=== PATIENT | male | born 1950 | race Caucasian/White ===

== ENCOUNTER 2018-05-01 13:23 | Inpatient (IN) | payer MEDICARE ==
[2018-05-01 14:09] LABS: Anisocytosis Slight; Basophils % (A) 0 %; Eosinophils # (A) 0.1 k/uL (0-0.7); Eosinophils % (A) 1 %; HCT 38.3 % (39.0-53.0); HGB 12.2 gm/dL (13.0-17.5); Hypochromasia Slight; Lymphocytes # (A) 1.6 k/uL (1.0-4.8); Lymphocytes % (A) 32 %; MCH 28.5 pg (25.0-35.0); MCHC 31.8 g/dL (31.0-37.0); MCV 89.6 fL (80.0-100.0); Mean Platelet Volume 8.6; Monocytes # (A) 0.2 k/uL (0-1.0); Monocytes % (A) 4 %; Neutrophils % (A) 61 %; Platelet Count 140 k/uL (150-450); RBC 4.28 m/uL (4.30-5.90); RDW 16.6 % (11.5-15.5)
[2018-05-01 14:17] LABS: Albumin 3.6 g/dL (3.5-5.0); Calcium 8.8 mg/dL (8.4-10.2); INR 1.1 (<1.2); Partial Thromboplastin Time 24.5 sec (22.0-30.0); Potassium 3.9 mmol/L (3.5-5.1); Prothrombin Time 10.6 sec (9.0-12.0); Total Bilirubin 0.4 mg/dL (0.2-1.3); Total Protein 6.3 g/dL (6.3-8.2)
--- NOTE | 2018-05-01 14:23 | ED ---
General Adult HPI <Pepe Ba - Last Filed: 05/01/18 16:47> - General Source: patient, EMS, RN notes reviewed Mode of arrival: EMS Limitations: no limitations <Ramiro Garcia - Last Filed: 05/01/18 18:56> - General Chief complaint: Syncope Stated complaint: near syncope Time Seen by Provider: 05/01/18 13:57 - History of Present Illness Initial comments: Patient 67-year-old male presented to the emergency room today by EMS, the chief complaint of syncopal episode that occurred just prior to arrival. He does admit that he was trying to walk to a homeless halfway when he had this episode. He states he does not remember being dizzy or lightheaded. He states he remembers waking up on the ground was already standing over top of him. He does admit that he's had recent "blackout" episodes recently. He does admit that recently he was in [place] just one week ago when he was hospitalized. He states he does have a stent placed both in his heart and also on the left leg. He states that they were telling him that they thought that there could be a blockage of the stent in the leg that could be causing these blackout episodes. Patient states he came to [facility] history has a sister that lives locally. He states he just arrived 4 days ago. Patient admits to headache here in the emergency room. He denies any complaints or symptoms. Patient denies any recent fever, chills, shortness of breath, chest pain, back pain, abdominal pain, nausea or vomiting, visual changes, or any other complaints. (Ramiro Garcia) - Related Data Home Medications Medication Instructions Recorded Confirmed Aspirin 81 mg PO DAILY 05/01/18 05/01/18 Clopidogrel Bisulfate [Plavix] 75 mg PO DAILY 05/01/18 05/01/18 Dexlansoprazole [Dexilant] 60 mg PO DAILY 05/01/18 05/01/18 Diazepam 2 mg PO BID 05/01/18 05/01/18 Divalproex [Depakote] 500 mg PO BID 05/01/18 05/01/18 Donepezil [Aricept] 10 mg PO HS 05/01/18 05/01/18 Escitalopram [Lexapro] 20 mg PO DAILY 05/01/18 05/01/18 Levothyroxine Sodium [Synthroid] 75 mcg PO DAILY 05/01/18 05/01/18 Metoprolol Tartrate [Lopressor] 12.5 mg PO BID 05/01/18 05/01/18 Ramipril [Altace] 1.25 mg PO DAILY 05/01/18 05/01/18 Simvastatin [Zocor] 20 mg PO HS 05/01/18 05/01/18 Torsemide [Demadex] 5 mg PO DAILY 05/01/18 05/01/18 Allergies Allergy/AdvReac Type Severity Reaction Status Date / Time morphine Allergy Anaphylaxis Verified 05/01/18 14:06 Penicillins Allergy Unknown Verified 05/01/18 14:06 Review of Systems ROS Other: All systems not noted in ROS Statement are negative. <Pepe Ba - Last Filed: 05/01/18 16:47> ROS Other: All systems not noted in ROS Statement are negative. <Ramiro Garcia - Last Filed: 05/01/18 18:56> ROS Statement: Those systems with pertinent positive or pertinent negative responses have been documented in the HPI. Past Medical History Past Medical History: Dementia Past Surgical History: Coronary Bypass/CABG Smoking Status: Current every day smoker Past Alcohol Use History: None Reported Past Drug Use History: None Reported <Ramiro Garcia - Last Filed: 05/01/18 18:56> General Exam <Pepe Ba - Last Filed: 05/01/18 16:47> Limitations: no limitations <Ramiro Garcia - Last Filed: 05/01/18 18:56> - General Exam Comments Initial Comments: General: The patient is awake and alert, in no distress, and does not appear acutely ill. Eye: Pupils are equal, round and reactive to light. Extra-ocular movements are intact. No nystagmus. There is normal conjunctiva bilaterally. No signs of icterus. Ears, nose, mouth and throat: There are moist mucous membranes and no oral lesions. Neck: The neck is supple, there is no tenderness or JVD. Cardiovascular: There is a regular rate and rhythm. No murmur, rub or gallop is appreciated. Respiratory: Lungs are clear to auscultation, respirations are non-labored, breath sounds are equal. No wheezes, stridor, rales, or rhonchi. Gastrointestinal: Soft, non-distended, non-tender abdomen without masses or organomegaly noted. There is no rebound or guarding present. No CVA tenderness. Musculoskeletal: Normal ROM, no tenderness. Sensation intact. Strength 5/5. Pulses equal bilaterally 2+. Neurological: A&O x 3. CN II-XII intact, There are no obvious motor or sensory deficits. Coordination appears grossly intact. Speech is normal. Skin: Skin is warm and dry and no rashes or lesions are noted. Psychiatric: Cooperative, appropriate mood & affect, normal judgment. (Ramiro Garcia) Course <Pepe Ba - Last Filed: 05/01/18 16:47> <Ramiro Garcia - Last Filed: 05/01/18 18:56> Vital Signs 05/01/18 05/01/18 05/01/18 13:26 14:46 16:00 Temperature 97.6 F Pulse Rate 80 64 72 Respiratory 16 18 Rate Blood Pressure 135/70 124/60 133/89 O2 Sat by Pulse 98 98 98 Oximetry 05/01/18 05/01/18 16:26 17:30 Temperature Pulse Rate 84 60 Respiratory Rate Blood Pressure 117/65 139/66 O2 Sat by Pulse 99 97 Oximetry - Reevaluation(s) Reevaluation #1: 05/01/18 16:46 Patient reevaluated by myself, Dr. Ba. Patient is a poor historian. Patient states he has had a couple syncopal episodes over the past month and was at a hospital in [place] not long ago for this. Patient states he was walking today and just passed out. Patient states he does have a distant history of seizures however has not had one in a long time. Patient denies being on any medication for seizures. Medication list does include Depakote and the level will be checked. D-dimer has been added. Case was discussed with Dr. Mac, who will admit for hospital call. Radial and pedal pulses 2/4 bilateral. (Pepe Ba) EKG Findings - EKG Comments: EKG Findings:: EKG performed at 1346: Shows normal sinus rhythm at 72 bpm [place] interval 124. QRS 104. QT/QTc is 426/466. No acute ST changes. <Ramiro Garcia - Last Filed: 05/01/18 18:56> Medical Decision Making - Lab Data Result diagrams: 05/01/18 13:30 05/01/18 13:30 <Pepe Ba - Last Filed: 05/01/18 16:47> - Lab Data Result diagrams: 05/01/18 13:30 05/01/18 13:30 <Ramiro Garcia - Last Filed: 05/01/18 18:56> - Medical Decision Making Patient resting comfortable at this time. Patient's labs reviewed did show an elevated d-dimer. Did have a CT of the chest which was negative for any evidence of PE. Case discussed with attending physician Dr. Ba who did discuss case with physician Dr. Mac. The patient for syncopal episode. (Ramiro Garcia) - Lab Data Lab Results 05/01/18 05/01/18 05/01/18 Range/Units 13:30 13:30 13:30 WBC 5.0 (3.8-10.6) k/uL RBC 4.28 L (4.30-5.90) m/uL Hgb 12.2 L (13.0-17.5) gm/dL Hct 38.3 L (39.0-53.0) % MCV 89.6 (80.0-100.0) fL MCH 28.5 (25.0-35.0) pg MCHC 31.8 (31.0-37.0) g/dL RDW 16.6 H (11.5-15.5) % Plt Count 140 L (150-450) k/uL Neutrophils % 61 % Lymphocytes % 32 % Monocytes % 4 % Eosinophils % 1 % Basophils % 0 % Neutrophils # 3.0 (1.3-7.7) k/uL Lymphocytes # 1.6 (1.0-4.8) k/uL Monocytes # 0.2 (0-1.0) k/uL Eosinophils # 0.1 (0-0.7) k/uL Basophils # 0.0 (0-0.2) k/uL Hypochromasia Slight Anisocytosis Slight PT (9.0-12.0) sec INR (<1.2) APTT (22.0-30.0) sec D-Dimer (<0.60) mg/L FEU Sodium 143 (137-145) mmol/L Potassium 3.9 (3.5-5.1) mmol/L Chloride 112 H (98-107) mmol/L Carbon Dioxide 22 (22-30) mmol/L Anion Gap 9 mmol/L BUN 17 (9-20) mg/dL Creatinine 1.16 (0.66-1.25) mg/dL Est GFR (CKD-EPI)AfAm 76 (>60 ml/min/1.73 sqM) Est GFR (CKD-EPI)NonAf 66 (>60 ml/min/1.73 sqM) Glucose 144 H (74-99) mg/dL Calcium 8.8 (8.4-10.2) mg/dL Total Bilirubin 0.4 (0.2-1.3) mg/dL AST 30 (17-59) U/L ALT 25 (21-72) U/L Alkaline Phosphatase 72 (38-126) U/L Total Creatine Kinase 101 (55-170) U/L CK-MB (CK-2) 1.2 (0.0-2.4) ng/mL CK-MB (CK-2) Rel Index 1.2 Troponin I <0.012 (0.000-0.034) ng/mL Total Protein 6.3 (6.3-8.2) g/dL Albumin 3.6 (3.5-5.0) g/dL Valproic Acid ug/mL 05/01/18 05/01/18 05/01/18 Range/Units 13:30 13:30 13:30 WBC (3.8-10.6) k/uL RBC (4.30-5.90) m/uL Hgb (13.0-17.5) gm/dL Hct (39.0-53.0) % MCV (80.0-100.0) fL MCH (25.0-35.0) pg MCHC (31.0-37.0) g/dL RDW (11.5-15.5) % Plt Count (150-450) k/uL Neutrophils % % Lymphocytes % % Monocytes % % Eosinophils % % Basophils % % Neutrophils # (1.3-7.7) k/uL Lymphocytes # (1.0-4.8) k/uL Monocytes # (0-1.0) k/uL Eosinophils # (0-0.7) k/uL Basophils # (0-0.2) k/uL Hypochromasia Anisocytosis PT 10.6 (9.0-12.0) sec INR 1.1 (<1.2) APTT 24.5 (22.0-30.0) sec D-Dimer 5.91 H (<0.60) mg/L FEU Sodium (137-145) mmol/L Potassium (3.5-5.1) mmol/L Chloride (98-107) mmol/L Carbon Dioxide (22-30) mmol/L Anion Gap mmol/L BUN (9-20) mg/dL Creatinine (0.66-1.25) mg/dL Est GFR (CKD-EPI)AfAm (>60 ml/min/1.73 sqM) Est GFR (CKD-EPI)NonAf (>60 ml/min/1.73 sqM) Glucose (74-99) mg/dL Calcium (8.4-10.2) mg/dL Total Bilirubin (0.2-1.3) mg/dL AST (17-59) U/L ALT (21-72) U/L Alkaline Phosphatase (38-126) U/L Total Creatine Kinase (55-170) U/L CK-MB (CK-2) (0.0-2.4) ng/mL CK-MB (CK-2) Rel Index Troponin I (0.000-0.034) ng/mL Total Protein (6.3-8.2) g/dL Albumin (3.5-5.0) g/dL Valproic Acid <10.0 ug/mL Disposition <Pepe Ba - Last Filed: 05/01/18 16:47> Is patient prescribed a controlled substance at d/c from ED?: No Time of Disposition: 18:56 <Ramiro Garcia - Last Filed: 05/01/18 18:56> Clinical Impression: Syncope Disposition: ADMITTED IP TO THIS HOSP Condition: Stable Referrals: None,Stated [Primary Care Provider] - 1-2 days
[2018-05-01 14:29] LABS: Creatine Kinase 101 U/L (55-170)
[2018-05-01 14:42] LABS: Creatine Kinase MB 1.2 ng/mL (0.0-2.4); Troponin I <0.012 ng/mL (0.000-0.034)
--- NOTE | 2018-05-01 15:00 | CT ---
EXAMINATION TYPE: CT brain wo con DATE OF EXAM: 05/01/2018 COMPARISON: None HISTORY: Near syncope. CT DLP: [address] of the brain was performed. The ventricles, basal cisterns and sulci overlying the cerebral convexities demonstrate mild enlargem ent. There is no evidence for intracranial hemorrhage or sulcal effacement. There is decreased attenuation about the periventricular white matter and deep white matter of both c erebral hemispheres, compatible with chronic small vessel ischemia. Differential diagnosis does inclu de demyelination. No mass effects are seen.No midline shift. Osseous calvarium is intact. If symptoms persist consider MRI. IMPRESSION: 1. Age related atrophic and chronic small vessel ischemic change without acute intracranial process s een at this time.
--- NOTE | 2018-05-01 17:55 | XR ---
EXAMINATION: XR chest 2V DATE AND TIME: 05/01/2018 5:00 PM CLINICAL INDICATION: cough TECHNIQUE: PA and lateral COMPARISON: None. FINDINGS: The lungs are clear. The pleural spaces are negative. The cardiac silhouette is mildly enlarged. Pacemaker, sternal sutures, and mediastinal clips are note d. The remainder of the mediastinal silhouette is unremarkable. The skeletal structures and soft tissues are negative for acute findings. IMPRESSION: NO ACUTE PROCESS.
[2018-05-01] MEDS ORDERED: NALOXONE 0.4 MG/ML 1 ML VIAL IV PRN (18:05)
[2018-05-01] MEDS ORDERED: ONDANSETRON 4 MG/2 ML VIAL IVP PRN (18:05)
[2018-05-01] MEDS ORDERED: ACETAMINOPHEN TAB 325 MG TAB PO PRN (18:05)
[2018-05-01] MEDS ORDERED: SODIUM CHLORIDE 0.9% 1,000 ML IV ONE (18:05)
--- NOTE | 2018-05-01 18:27 | P.HPIM ---
History of Present Illness H&P Date: 05/01/18 Chief Complaint: Lightheaded and dizziness and passing out The patient is a 67-year-old male the past with a history of coronary artery disease with four-vessel CABG, with AICD who presents to the ER via EMS, after having a syncopal episode and passing out just prior to arrival. The patient reports that this is his second spell of blacking out in the last 3 days , he reports a recent fall that he thinks dislodged his defibrillator. [place] Patient reports episodes of lightheadedness precipitated by movement, he denies any tinnitus or room spinning sensation. He reports a history of peripheral vascular disease and that he has a stent in his leg. He denies any chest pain, shortness of breath , cough, palpitations or lower extremity swelling. The patient reports having his CABG approximately 20 years ago in [facility]. He denies any fevers chills diarrhea or constipation. He otherwise has no other complaints, it appears the patient has a history of seizures and takes Depakote In the ER he had a CT of his head That showed age-related atrophy a and chronic small ischemic changes without any acute intracranial process, he was also sent for CTA of his chest after having a elevated d-dimer at 6, results pending. EKG performed shows sinus rhythm with no acute ST elevation or signs of acute ischemia, troponin was negative at less than 0.012. He was recommended for admission to workup for syncope Review of Systems Pertinent positives per HPI, all other review of systems are otherwise negative Past Medical History Past Medical History: Dementia Past Surgical History: Coronary Bypass/CABG Smoking Status: Current every day smoker Past Alcohol Use History: None Reported Past Drug Use History: None Reported Medications and Allergies Home Medications Medication Instructions Recorded Confirmed Type Aspirin 81 mg PO DAILY 05/01/18 05/01/18 History Clopidogrel Bisulfate [Plavix] 75 mg PO DAILY 05/01/18 05/01/18 History Dexlansoprazole [Dexilant] 60 mg PO DAILY 05/01/18 05/01/18 History Diazepam 2 mg PO BID 05/01/18 05/01/18 History Divalproex [Depakote] 500 mg PO BID 05/01/18 05/01/18 History Donepezil [Aricept] 10 mg PO HS 05/01/18 05/01/18 History Escitalopram [Lexapro] 20 mg PO DAILY 05/01/18 05/01/18 History Levothyroxine Sodium [Synthroid] 75 mcg PO DAILY 05/01/18 05/01/18 History Metoprolol Tartrate [Lopressor] 12.5 mg PO BID 05/01/18 05/01/18 History Ramipril [Altace] 1.25 mg PO DAILY 05/01/18 05/01/18 History Simvastatin [Zocor] 20 mg PO HS 05/01/18 05/01/18 History Torsemide [Demadex] 5 mg PO DAILY 05/01/18 05/01/18 History Allergies Allergy/AdvReac Type Severity Reaction Status Date / Time morphine Allergy Anaphylaxis Verified 05/01/18 14:06 Penicillins Allergy Unknown Verified 05/01/18 14:06 Physical Exam Vitals: Vital Signs Temp Pulse Resp BP Pulse Ox 05/01/18 17:30 60 139/66 97 05/01/18 16:26 84 117/65 99 05/01/18 16:00 72 133/89 98 05/01/18 14:46 64 18 124/60 98 05/01/18 13:26 97.6 F 80 16 135/70 98 Intake and Output 05/01/18 05/01/18 05/01/18 06:59 14:59 22:59 Other: Weight 61.235 kg Constitutional: No acute distress, conversant, pleasant Eyes: Anicteric sclerae, moist conjunctiva, no lid-lag, PERRLA ENMT: NC/AT,Oropharynx clear, no erythema, exudates Neck:Supple, FROM, no masses, or JVD, No carotid bruits; No thyromegaly Lungs: Clear to auscultation, Clear to percussion, Normal respiratory effort, no accessory muscle use Cardiovascular: Heart regular in rate and rhythm, No murmurs, gallops, or rubs no peripheral edema Abdominal: Soft Nontender, nom distended, no guarding, no rebound or rigidity, Normoactive bowel sounds No hepatomegaly, No splenomegaly, No palpable mass No abdominal wall hernia noted Skin: Normal temperature, tone, texture, turgor, No induration No subcutaneous nodules, No rash, lesions, No ulcers Extremities:No digital cyanosis No clubbing, Pedal pulses intact and symmetrical Radial pulses intact and symmetrical Normal gait and station, No calf tenderness Psychiatric: Alert and oriented to person, place and time, Appropriate affect Intact judgement Neuro: Muscles Strength 5/5 in all 4 extremities, Sensation to light touch grossly present throughout, Cranial nerves II-XII grossly intact. No focal sensory deficits Results CBC & Chem 7: 05/01/18 13:30 05/01/18 13:30 Labs: Abnormal Lab Results - Last 24 Hours (Table) 05/01/18 05/01/18 05/01/18 Range/Units 13:30 13:30 13:30 RBC 4.28 L (4.30-5.90) m/uL Hgb 12.2 L (13.0-17.5) gm/dL Hct 38.3 L (39.0-53.0) % RDW 16.6 H (11.5-15.5) % Plt Count 140 L (150-450) k/uL D-Dimer 5.91 H (<0.60) mg/L FEU Chloride 112 H (98-107) mmol/L Glucose 144 H (74-99) mg/dL Assessment and Plan Assessment: Chronic medical issues GERD Hypothyroidism Hyperlipidemia Dementia Depression (1) Syncope Current Visit: Yes Status: Acute Code(s): R55 - SYNCOPE AND COLLAPSE SNOMED Code(s): 590874985 (2) Coronary artery disease Current Visit: Yes Status: Acute Code(s): I25.10 - ATHSCL HEART DISEASE OF [place] CORONARY ARTERY W/O ANG PCTRS SNOMED Code(s): 71181595 (3) Essential hypertension Current Visit: Yes Status: Acute Code(s): I10 - ESSENTIAL (PRIMARY) HYPERTENSION SNOMED Code(s): 14545250 (4) Hyperlipidemia Current Visit: Yes Status: Acute Code(s): E78.5 - HYPERLIPIDEMIA, UNSPECIFIED SNOMED Code(s): 30399098 Plan: The patient is placed in observation anticipate a less than 2 midnight stay after presenting with syncopal episode with a pretty strong cardiac history of coronary disease with bypass, we'll check orthostatic vital signs, echocardiogram, TSH, carotid Dopplers and consult cardiology and neurology for further recommendations. We'll follow-up CTA of the chest. Resume all his home medications and continue to follow his clinical course.
--- NOTE | 2018-05-01 18:49 | CT ---
EXAMINATION TYPE: CT angio chest with contrast and with 3-D Reconstruction rendering DATE OF EXAM: 05/01/2018 6:12 PM COMPARISON: None HISTORY: Elevated d-dimer. CT DLP: 402 mGycm Automated exposure control for dose reduction was used. CONTRAST: CTA scan of the thorax is performed with IV Contrast, patient injected with 100 mL of Isovu e 370, pulmonary embolism protocol. 3-D reconstructions. FINDINGS: LUNGS: The lungs are grossly clear, there is no concerning parenchymal mass or nodule identified. T here is no pleural effusion or pneumothorax seen. The tracheobronchial tree is patent. MEDIASTINUM: There is satisfactory enhancement of the pulmonary artery and its branches, there is no CT evidence for pulmonary embolism. Aorta is unremarkable. Mild cardiomegaly with enlarged left heart chambers noted. Post-CABG changes. No pericardial effusion is seen. There are no greater than 1 cm h ilar or mediastinal lymph nodes. OTHER: No additional significant abnormality is seen. IMPRESSION: NEGATIVE FOR PULMONARY EMBOLISM OR OTHER ACUTE PROCESS.
[2018-05-01 20:14] VITALS: BMI 20.5
[2018-05-01] MEDS: DONEPEZIL 10 MG TAB PO SCH (21:13)
[2018-05-01] MEDS: DIVALPROEX 500 MG TABLET.DR PO SCH (21:13)
[2018-05-01] MEDS: ATORVASTATIN 10 MG TAB PO SCH (21:13)
[2018-05-01] MEDS: METOPROLOL TARTRATE 12.5 MG TAB PO SCH (21:13)
[2018-05-01] MEDS: DIAZEPAM 2 MG TAB PO SCH (21:20)
[2018-05-02] MEDS: LEVOTHYROXINE 75 MCG TAB PO SCH (05:56)
[2018-05-02 08:07] LABS: Anisocytosis Slight; Basophils % (A) 0 %; Eosinophils # (A) 0.1 k/uL (0-0.7); Eosinophils % (A) 3 %; HCT 38.9 % (39.0-53.0); HGB 12.3 gm/dL (13.0-17.5); Hypochromasia Slight; Lymphocytes # (A) 2.1 k/uL (1.0-4.8); Lymphocytes % (A) 45 %; MCH 28.5 pg (25.0-35.0); MCHC 31.8 g/dL (31.0-37.0); MCV 89.6 fL (80.0-100.0); Mean Platelet Volume 8.3; Monocytes # (A) 0.3 k/uL (0-1.0); Monocytes % (A) 5 %; Neutrophils # (A) 2.1 k/uL (1.3-7.7); Neutrophils % (A) 43 %; Platelet Count 130 k/uL (150-450); RBC 4.34 m/uL (4.30-5.90); RDW 16.7 % (11.5-15.5); WBC 4.8 k/uL (3.8-10.6)
[2018-05-02 08:34] LABS: Albumin 3.1 g/dL (3.5-5.0); Calcium 8.5 mg/dL (8.4-10.2); Potassium 4.2 mmol/L (3.5-5.1); Total Bilirubin 0.4 mg/dL (0.2-1.3); Total Protein 5.9 g/dL (6.3-8.2)
[2018-05-02] MEDS: ESCITALOPRAM 20 MG TAB PO SCH (09:31)
[2018-05-02] MEDS: CLOPIDOGREL 75 MG TAB PO SCH (09:31)
[2018-05-02] MEDS: TORSEMIDE 20 MG TAB PO SCH (09:31)
[2018-05-02] MEDS: METOPROLOL TARTRATE 12.5 MG TAB PO SCH ×2 (09:31→21:39)
[2018-05-02] MEDS: DIAZEPAM 2 MG TAB PO SCH ×2 (09:31→21:39)
[2018-05-02] MEDS: PANTOPRAZOLE 40 MG TABLET PO SCH (09:31)
[2018-05-02] MEDS: ASPIRIN 81 MG PO SCH (09:31)
[2018-05-02] MEDS: LISINOPRIL 5 MG TAB PO SCH (09:31)
[2018-05-02] MEDS: DIVALPROEX 500 MG TABLET.DR PO SCH ×2 (09:31→21:40)
--- NOTE | 2018-05-02 10:19 | ECHOF ---
Referral Reason:Syncopal episode, history of heart disease MEASUREMENTS -------- HEIGHT: 172.7 cm WEIGHT: 61.2 kg BP: 133/74 IVSd: 1.1 cm (0.6 - 1.1) LVIDd: 5.2 cm (3.9 - 5.3) LVPWd: 1.2 cm (0.6 - 1.1) IVSs: 1.3 cm LVIDs: 4.9 cm LVPWs: 1.3 cm LAESV Index (A-L): 47.16 ml/m Ao Diam: 2.8 cm (2.0 - 3.7) AV Cusp: 2.2 cm (1.5 - 2.6) LA Diam: 4.3 cm (2.7 - 3.8) MV EXCURSION: 20.824 mm (> 18.000) MV EF SLOPE: 109 mm/s (70 - 150) EPSS: 1.6 cm MV E Lorne: 0.64 m/s MV DecT: 198 ms MV A Lorne: 0.35 m/s MV E/A Ratio: 1.83 RAP: 5.00 mmHg RVSP: 21.06 mmHg FINDINGS -------- Sinus rhythm. AICD This was a technically good study. The left ventricular size is normal. There is borderline concentric left ventricular hypertrophy. There is severe global hypokinesis of LV . Overall left ventricular systolic function is severely impaired with, an EF between 20 - 25 %. The right ventricle is normal in size and function. LA is severely dilated >40 ml/m2 The right atrium is normal in size. Aortic valve is trileaflet and is mildly thickened. The mitral valve leaflets are mildly thickened. Wiyqvnzc-ry-klcqvy mitral regurgitation is present. Mild tricuspid regurgitation present. The right ventricular systolic pressure, as measured by Doppl er, is 21.06mmHg. Pulmonic valve appears structurally normal. The aortic root size is normal. Normal inferior vena cava with normal inspiratory collapse consistent with estimated right atrial pre ssure of 5 mmHg. The pericardium is normal. CONCLUSIONS -------- 1. Sinus rhythm. 2. AICD 3. This was a technically good study. 4. The left ventricular size is normal. 5. There is borderline concentric left ventricular hypertrophy. 6. There is severe global hypokinesis of LV . 7. Overall left ventricular systolic function is severely impaired with, an EF between 20 - 25 %. 8. The right ventricle is normal in size and function. 9. LA is severely dilated >40 ml/m2 10. The right atrium is normal in size. 11. Aortic valve is trileaflet and is mildly thickened. 12. The mitral valve leaflets are mildly thickened. 13. Ovjhmcjk-ni-jpmiiv mitral regurgitation is present. 14. Mild tricuspid regurgitation present. 15. The right ventricular systolic pressure, as measured by Doppler, is 21.06mmHg. 16. Pulmonic valve appears structurally normal. 17. The aortic root size is normal. 18. Normal inferior vena cava with normal inspiratory collapse consistent with estimated right atrial pressure of 5 mmHg. 19. The pericardium is normal. SPECIAL ED ASSISTANT: Terri Harkins RDCS
--- NOTE | 2018-05-02 10:45 | US ---
EXAMINATION TYPE: US carotid duplex BILAT DATE OF EXAM: 05/02/2018 COMPARISON: NONE CLINICAL HISTORY: Pain. EXAM MEASUREMENTS: RIGHT: Peak Systolic Velocity (PSV) cm/sec ----- Right CCA: 42.3 ----- Right ICA: 83.8 ----- Right ECA: 143.5 ICA/CCA ratio: 2.0 RIGHT: End Diastole cm/sec ----- Right CCA: 10.9 ----- Right ICA: 20.2 ----- Right ECA: 12.7 LEFT: Peak Systolic Velocity (PSV) cm/sec ----- Left CCA: 46.0 ----- Left ICA: 66.3 ----- Left ECA: 92.2 ICA/CCA ratio: 1.4 LEFT: End Diastole cm/sec ----- Left CCA: 12.2 ----- Left ICA: 20.6 ----- Left ECA: 9.0 VERTEBRALS (direction of flow): Right Vertebral: Antegrade Left Vertebral: Antegrade Rhythm: Arrhythmia Moderate plaque, no significant stenosis seen in bilateral ICA's. Grayscale, color Doppler, spectral Doppler imaging performed of the carotid arteries. Waveform analys is does not show significant stenosis of the proximal internal carotid arteries. IMPRESSION: No hemodynamic significant stenosis of the proximal internal carotid arteries bilaterall y by Doppler criteria, an indirect measurement of carotid stenosis
--- NOTE | 2018-05-02 13:29 | P.PN ---
Subjective Progress Note Date: 05/02/18 Patient complaining of lightheadedness still today, orthostatic vital signs are negative. Patient concerned for malfunction of his defibrillator. No acute events overnight Objective - Vital Signs Vital signs: Vital Signs Temp 97.7 F 05/02/18 11:40 Pulse 68 05/02/18 11:40 Resp 18 05/02/18 11:40 BP 125/72 05/02/18 11:40 Pulse Ox 97 05/02/18 11:40 Intake & Output 05/01/18 05/02/18 05/02/18 18:59 06:59 18:59 Weight 61.235 kg 61.235 kg Other: Voiding Method Toilet Toilet Urinal # Voids 1 - Exam Constitutional: No acute distress, conversant, pleasant Eyes: Anicteric sclerae, moist conjunctiva, no lid-lag, PERRLA ENMT: NC/AT,Oropharynx clear, no erythema, exudates Neck:Supple, FROM, no masses, or JVD, No carotid bruits; No thyromegaly Lungs: Clear to auscultation, Clear to percussion, Normal respiratory effort, no accessory muscle use Cardiovascular: Heart regular in rate and rhythm, No murmurs, gallops, or rubs no peripheral edema Abdominal: Soft Nontender, nom distended, no guarding, no rebound or rigidity, Normoactive bowel sounds No hepatomegaly, No splenomegaly, No palpable mass No abdominal wall hernia noted Skin: Normal temperature, tone, texture, turgor, No induration No subcutaneous nodules, No rash, lesions, No ulcers Extremities:No digital cyanosis No clubbing, Pedal pulses intact and symmetrical Radial pulses intact and symmetrical Normal gait and station, No calf tenderness Psychiatric: Alert and oriented to person, place and time, Appropriate affect Intact judgement Neuro: Muscles Strength 5/5 in all 4 extremities, Sensation to light touch grossly present throughout, Cranial nerves II-XII grossly intact. No focal sensory deficits - Labs CBC & Chem 7: 05/02/18 07:32 05/02/18 07:32 Labs: Abnormal Lab Results - Last 24 Hours (Table) 05/01/18 05/01/18 05/01/18 Range/Units 13:30 13:30 13:30 RBC 4.28 L (4.30-5.90) m/uL Hgb 12.2 L (13.0-17.5) gm/dL Hct 38.3 L (39.0-53.0) % RDW 16.6 H (11.5-15.5) % Plt Count 140 L (150-450) k/uL D-Dimer 5.91 H (<0.60) mg/L FEU Chloride 112 H (98-107) mmol/L Glucose 144 H (74-99) mg/dL Total Protein (6.3-8.2) g/dL Albumin (3.5-5.0) g/dL 05/02/18 05/02/18 Range/Units 07:32 07:32 RBC (4.30-5.90) m/uL Hgb 12.3 L (13.0-17.5) gm/dL Hct 38.9 L (39.0-53.0) % RDW 16.7 H (11.5-15.5) % Plt Count 130 L (150-450) k/uL D-Dimer (<0.60) mg/L FEU Chloride 112 H (98-107) mmol/L Glucose (74-99) mg/dL Total Protein 5.9 L (6.3-8.2) g/dL Albumin 3.1 L (3.5-5.0) g/dL Assessment and Plan (1) Syncope Narrative/Plan: * Negative orthostatics vital signs * Echocardiogram showing severe cardiomyopathy with ejection fraction of 20-25% * neurology and Cardiology consulted, awaiting recommendations * Possibly cardiogenic, patient concern for AICD malfunction * Carotid Dopplers negative for any clinically significant carotid artery disease Current Visit: Yes Status: Acute Code(s): R55 - SYNCOPE AND COLLAPSE SNOMED Code(s): 986696433 (2) Systolic CHF, chronic Narrative/Plan: * Clinically stable, euvolemic exam no acute exacerbation of his chronic systolic CHF EF 20-25% * Continue daily torsemide, metoprolol and lisinopril Current Visit: Yes Status: Acute Code(s): I50.22 - CHRONIC SYSTOLIC ( CONGESTIVE) HEART FAILURE SNOMED Code(s): 333503366 (3) Cardiomyopathy Narrative/Plan: * Treatment as above Current Visit: Yes Status: Acute Code(s): I42.9 - CARDIOMYOPATHY, UNSPECIFIED SNOMED Code(s): 70730758 (4) Essential hypertension Current Visit: Yes Status: Acute Code(s): I10 - ESSENTIAL (PRIMARY) HYPERTENSION SNOMED Code(s): 22528930 (5) Coronary artery disease Narrative/Plan: * Denies any chest pain EKG and troponins are negative for any acute ischemia * Continue dual antiplatelet therapy Current Visit: Yes Status: Acute Code(s): I25.10 - ATHSCL HEART DISEASE OF [place] CORONARY ARTERY W/O ANG PCTRS SNOMED Code(s): 41744399 (6) Hyperlipidemia Narrative/Plan: * Continue routine statin therapy Current Visit: Yes Status: Acute Code(s): E78.5 - HYPERLIPIDEMIA, UNSPECIFIED SNOMED Code(s): 01715355 Plan: Disposition * We'll follow cardiology r and neurology ecommendations * Anticipated discharge 1-2 days
--- NOTE | 2018-05-02 14:47 | P.CRDCN ---
History of Present Illness History of present illness: Mr. Morales is seen and examined resting comfortably in bed in no acute distress. Past medical history significant for coronary artery disease s/p bypass grafting 4-vessel per the patient. Exact details are unavailable to me. He also has a [employer] AICD in place secondary to arrhythmia per the patient, hypertension, dyslipidemia, hypothyroidism, depression, dementia and chronic nicotine dependence. He recently moved here from [place] on Tuesday. We have asked to see him in consultation for a syncopal episode. He states he is fairly active and walks regularly. He states yesterday he walked over 2 miles. He sat down on a bench to drink some water. He was standing up to walk home and he felt light headed upon standing. Next thing he can recall there was a women standing over him trying to wake him up. He states he frequently feels light headed upon standing but doesn't usually pass out. He denies chest pain, shortness of breath, nausea, vomiting or diaphoresis prior to or thereafter losing consciousness. Sinus mechanism with inferior Q waves, nonspecific T-wave abnormalities in the lateral leads. No old for comparison. Chest x-ray is negative for acute cardiopulmonary process. CT of the brain reveals age-related atrophic and chronic small vessel ischemic change without any acute intracranial process seen. CTA chest negative for pulmonary embolism, aorta unremarkable. Echocardiogram obtained revealed severely impaired left ventricular systolic function with ejection fraction 20-25%, severely dilated left atrium, moderate to severe MR and mild TR. Bilateral carotid duplex reveals no significant stenosis bilaterally. Current cardiac medications include torsemide 5 mg daily, simvastatin 20 mg daily, ramipril 1.25 mg daily, lopressor 12.5 mg BID, plavix 75 mg daily and aspirin 81 mg daily. Review of Systems At the time of my exam: CONSTITUTIONAL: Denies fever. Denies chills. EYES: Denies blurred vision. Denies vision changes. Denies eye pain. EARS, NOSE, MOUTH & THROAT: Denies headache. Denies sore throat. Denies ear pain. CARDIOVASCULAR: Denies chest pain. Denies shortness of breath. Denies orthopnea. Denies PND. Denies palpitations. RESPIRATORY: Denies cough. GASTROINTESTINAL: Denies abdominal pain. Denies diarrhea. Denies constipation. Denies nausea. Denies vomiting. MUSCULOSKELETAL: Denies myalgias. INTEGUMENTARY: Denies pruitis. Denies rash. NEUROLOGIC: Denies numbness. Denies tingling. Denies weakness. PSYCHIATRIC: Denies anxiety. Denies depression. ENDOCRINE: Denies fatigue. Denies weight change. Denies polydipsia. Denies polyurina. GENITOURINARY: Denies burning, hematuria or urgency with micturation. HEMATOLOGIC: Denies history of anemia. Denies bleeding. Past Medical History Past Medical History: Dementia History of Any Multi-Drug Resistant Organisms: None Reported Past Surgical History: Coronary Bypass/CABG Past Anesthesia/Blood Transfusion Reactions: No Reported Reaction Smoking Status: Current every day smoker Past Alcohol Use History: None Reported Past Drug Use History: None Reported Medications and Allergies Home Medications Medication Instructions Recorded Confirmed Type Aspirin 81 mg PO DAILY 05/01/18 05/01/18 History Clopidogrel Bisulfate [Plavix] 75 mg PO DAILY 05/01/18 05/01/18 History Dexlansoprazole [Dexilant] 60 mg PO DAILY 05/01/18 05/01/18 History Diazepam 2 mg PO BID 05/01/18 05/01/18 History Divalproex [Depakote] 500 mg PO BID 05/01/18 05/01/18 History Donepezil [Aricept] 10 mg PO HS 05/01/18 05/01/18 History Escitalopram [Lexapro] 20 mg PO DAILY 05/01/18 05/01/18 History Levothyroxine Sodium [Synthroid] 75 mcg PO DAILY 05/01/18 05/01/18 History Metoprolol Tartrate [Lopressor] 12.5 mg PO BID 05/01/18 05/01/18 History Ramipril [Altace] 1.25 mg PO DAILY 05/01/18 05/01/18 History Simvastatin [Zocor] 20 mg PO HS 05/01/18 05/01/18 History Torsemide [Demadex] 5 mg PO DAILY 05/01/18 05/01/18 History Allergies Allergy/AdvReac Type Severity Reaction Status Date / Time morphine Allergy Anaphylaxis Verified 05/01/18 14:06 Penicillins Allergy Unknown Verified 05/01/18 14:06 Physical Exam Vitals: Vital Signs Temp Pulse Pulse Pulse Pulse Pulse Resp 05/02/18 11:40 97.7 F 75 69 68 18 05/02/18 06:16 97.4 F L 68 18 05/01/18 20:55 97.7 F 76 18 05/01/18 19:27 98.0 F 84 18 05/01/18 17:30 60 05/01/18 16:26 84 05/01/18 16:00 72 05/01/18 14:46 64 18 BP BP BP BP BP Pulse Ox 05/02/18 11:40 130/78 129/82 125/72 97 05/02/18 06:16 133/74 96 05/01/18 20:55 120/69 98 05/01/18 19:27 147/87 95 05/01/18 17:30 139/66 97 05/01/18 16:26 117/65 99 05/01/18 16:00 133/89 98 05/01/18 14:46 124/60 98 Intake and Output 05/01/18 05/02/18 05/02/18 22:59 06:59 14:59 Other: Voiding Method Toilet Toilet Urinal # Voids 1 1 Weight 61.235 kg Blood pressure 133/74 heart rate 68 afebrile maintaining oxygen saturation on room air GENERAL: This is a 68-year-old male in no apparent distress at the time of my examination. HEENT: Head is atraumatic, normocephalic. Pupils are equal, round. Sclerae anicteric. Conjunctivae are clear. Mucous membranes of the mouth are moist. Neck is supple. There is no jugular venous distention. No carotid bruit is heard. LUNGS: Clear to auscultation no wheezes, rales or rhonchi. No chest wall tenderness is noted on palpation or with deep breathing. HEART: Regular rate and rhythm with systolic ejection murmur at the left sternal border, no rubs or gallops. S1 and S2 heard. ABDOMEN: Soft, nontender. Bowel sounds are heard. No organomegaly noted. EXTREMITIES: No evidence of peripheral edema and no calf tenderness noted. VASCULAR: Radial and dorsalis pedis pulses palpated, no evidence of clubbing. NEUROLOGIC: Patient is awake, alert and oriented x3. Results 05/02/18 07:32 05/02/18 07:32 Cardiac Enzymes 05/01/18 05/01/18 05/02/18 Range/Units 13:30 13:30 07:32 AST 30 36 (17-59) U/L CK-MB (CK-2) 1.2 (0.0-2.4) ng/mL Troponin I <0.012 (0.000-0.034) ng/mL Coagulation 05/01/18 Range/Units 13:30 PT 10.6 (9.0-12.0) sec APTT 24.5 (22.0-30.0) sec CBC 05/01/18 05/02/18 Range/Units 13:30 07:32 WBC 5.0 4.8 (3.8-10.6) k/uL RBC 4.28 L 4.34 (4.30-5.90) m/uL Hgb 12.2 L 12.3 L (13.0-17.5) gm/dL Hct 38.3 L 38.9 L (39.0-53.0) % Plt Count 140 L 130 L (150-450) k/uL Comprehensive Metabolic Panel 05/01/18 05/02/18 Range/Units 13:30 07:32 Sodium 143 142 (137-145) mmol/L Potassium 3.9 4.2 (3.5-5.1) mmol/L Chloride 112 H 112 H (98-107) mmol/L Carbon Dioxide 22 23 (22-30) mmol/L BUN 17 16 (9-20) mg/dL Creatinine 1.16 1.05 (0.66-1.25) mg/dL Glucose 144 H 89 (74-99) mg/dL Calcium 8.8 8.5 (8.4-10.2) mg/dL AST 30 36 (17-59) U/L ALT 25 29 (21-72) U/L Alkaline Phosphatase 72 74 (38-126) U/L Total Protein 6.3 5.9 L (6.3-8.2) g/dL Albumin 3.6 3.1 L (3.5-5.0) g/dL Current Medications Generic Name Dose Route Start Last Admin Trade Name Freq PRN Reason Stop Dose Admin Acetaminophen 650 mg 05/01/18 18:05 05/01/18 22:24 Tylenol Tab PO 650 mg Q6HR PRN Administration Mild Pain or Fever > 100.5 Aspirin 81 mg 05/02/18 09:00 05/02/18 09:31 Aspirin PO 81 mg DAILY RADHA Administration Atorvastatin Calcium 10 mg 09/17/18 21:00 05/01/18 21:13 Lipitor PO 10 mg HS RADHA Administration Clopidogrel Bisulfate 75 mg 05/02/18 09:00 05/02/18 09:31 Plavix PO 75 mg DAILY RADHA Administration Diazepam 2 mg 05/01/18 21:00 05/02/18 09:31 Valium PO 2 mg BID RADHA Administration Divalproex Sodium 500 mg 05/01/18 21:00 05/02/18 09:31 Depakote PO 500 mg BID RADHA Administration Donepezil HCl 10 mg 05/01/18 21:00 05/01/18 21:13 Aricept PO 10 mg HS RADHA Administration Escitalopram Oxalate 20 mg 05/02/18 09:00 05/02/18 09:31 Lexapro PO 20 mg DAILY RADHA Administration Levothyroxine Sodium 75 mcg 05/02/18 06:30 05/02/18 05:56 Synthroid PO 75 mcg DAILY@0630 RADHA Administration Lisinopril 5 mg 05/02/18 09:00 05/02/18 09:31 Zestril PO 5 mg DAILY RADHA Administration Metoprolol Tartrate 12.5 mg 05/01/18 21:00 05/02/18 09:31 Lopressor PO 12.5 mg BID RADHA Administration Naloxone HCl 0.2 mg 05/01/18 18:05 Narcan IV Q2M PRN Opioid Reversal Ondansetron HCl 4 mg 05/01/18 18:05 Zofran IVP Q8HR PRN Nausea And Vomiting Pantoprazole Sodium 40 mg 05/02/18 07:30 05/02/18 09:31 Protonix PO 40 mg [id number] RADHA Administration Torsemide 5 mg 05/02/18 09:00 05/02/18 09:31 Demadex PO 5 mg DAILY RADHA Administration Intake and Output 05/01/18 05/02/18 05/02/18 22:59 06:59 14:59 Other: Voiding Method Toilet Toilet Urinal # Voids 1 1 Weight 61.235 kg 05/02/18 07:32 05/02/18 07:32 Assessment and Plan Assessment: ASSESSMENT Syncope, orthostatics are negative. Telemetry indicates sinus mechanism with no arrhythmias noted. History of coronary artery disease status post bypass grafting, details unavailable Ischemic cardiomyopathy, ejection fraction 20-25%. Baseline unknown. AICD in place, Medtr[employer] device will be interrogated today. Chronic systolic heart failure, currently euvolemic Hypertension Dyslipidemia PLAN Echocardiogram has been obtained and reviewed. Continue aspirin, atorvastatin, Plavix, lisinopril, Lopressor and torsemide as previously ordered. Orthostatic vital signs have been requested and obtained and are negative for changes. Interrogate [employer] AICD. Ongoing telemetry monitoring for an acute arrhythmia. Thank you kindly for this consultation. Nurse Practitioner note has been reviewed, I agree with a documented findings and plan of care. Patient was seen and examined.
--- NOTE | 2018-05-02 15:20 | P.PN ---
Progress Note - Text [employer] rep called with results of interrogation. No events or firing of the device, battery life with 8 years remaining, low RV output was increased mildly and not pacing very frequently.
--- NOTE | 2018-05-02 15:30 | P.CNNES ---
History of Present Illness Consult date: 05/02/18 Requesting physician: Walter Mac Reason for Consult: Syncope/history of seizures History of Present Illness: The patient is a pleasant 68-year-old male who is being evaluated by the neurology service on 05/02/2018 per the request of Dr. Walter Mac for syncope and history of seizures. Patient has a history of coronary artery disease with four-vessel CABG, AICD, peripheral vascular disease, seizures, and dementia. Patient reports this is his second spell of blacking out in the last 3 days. Patient states he is from [place] and was making his way up to [place] via the bus. Patient reports stopping in [place] where he had an episode of syncope and was taken to hospital in [place]. Patient reports episode of lightheadedness prior to passing out. Patient states when he was in [place] he believes he was told that the stent in his left leg was clotted and that he may have a malfunction of his AICD. Patient continued on his trip to [place]. Patient arrived in [place] and was leaving the Social Security office seeking out a homeless long-term. He remembers walking out of the [employer] office and walking on the sidewalk and the next thing he remembers someone was standing over him. Patient was brought to [facility] for further evaluation. Patient denies any lateralizing weakness, difficulty speaking, or numbness and tingling. CT of the brain showed age- related atrophy and chronic small vessel ischemic disease. CT showed no acute intracranial process. Labs on admission showed elevated d-dimer and a CTA of the chest was done which was negative for pulmonary embolism. EKG showed sinus rhythm. Carotid Doppler was negative for any hemodynamically significant stenosis. Echo shows ejection fraction of 20-25%. Chest x-ray is unremarkable. Orthostatics were negative. Patient is awaiting pacemaker/ defibrillator interrogation. Vital signs are stable with temperature 97.5, pulse rate 68, blood pressure 114/72, and oxygen saturation 97% on room air. Patient is on Plavix and aspirin in the home setting. Patient does report remote history of seizures and has been on Depakote 500 mg twice a day. Patient denies missing doses. Depakote level on admission was less than 10. No seizures reported since admission. Patient states his last seizure was over 2 years ago. At the time of my evaluation, patient's resting comfortably in bed and appears to be in no acute distress. r Review of Systems REVIEW OF SYSTEMS: Otherwise unremarkable and noncontributory. Past Medical History Past Medical History: Dementia History of Any Multi-Drug Resistant Organisms: None Reported Past Surgical History: Coronary Bypass/CABG Past Anesthesia/Blood Transfusion Reactions: No Reported Reaction Smoking Status: Current every day smoker Past Alcohol Use History: None Reported Past Drug Use History: None Reported Medications and Allergies Home Medications Medication Instructions Recorded Confirmed Type Aspirin 81 mg PO DAILY 05/01/18 05/01/18 History Clopidogrel Bisulfate [Plavix] 75 mg PO DAILY 05/01/18 05/01/18 History Dexlansoprazole [Dexilant] 60 mg PO DAILY 05/01/18 05/01/18 History Diazepam 2 mg PO BID 05/01/18 05/01/18 History Divalproex [Depakote] 500 mg PO BID 05/01/18 05/01/18 History Donepezil [Aricept] 10 mg PO HS 05/01/18 05/01/18 History Escitalopram [Lexapro] 20 mg PO DAILY 05/01/18 05/01/18 History Levothyroxine Sodium [Synthroid] 75 mcg PO DAILY 05/01/18 05/01/18 History Metoprolol Tartrate [Lopressor] 12.5 mg PO BID 05/01/18 05/01/18 History Ramipril [Altace] 1.25 mg PO DAILY 05/01/18 05/01/18 History Simvastatin [Zocor] 20 mg PO HS 05/01/18 05/01/18 History Torsemide [Demadex] 5 mg PO DAILY 05/01/18 05/01/18 History Allergies Allergy/AdvReac Type Severity Reaction Status Date / Time morphine Allergy Anaphylaxis Verified 05/01/18 14:06 Penicillins Allergy Unknown Verified 05/01/18 14:06 Physical Examination - Vital Signs Vital Signs: Vital Signs Temp Pulse Pulse Pulse Pulse Pulse Resp 05/02/18 13:00 97.5 F L 61 18 05/02/18 11:40 97.7 F 75 69 68 18 05/02/18 06:16 97.4 F L 68 18 05/01/18 20:55 97.7 F 76 18 05/01/18 19:27 98.0 F 84 18 05/01/18 17:30 60 05/01/18 16:26 84 05/01/18 16:00 72 BP BP BP BP BP Pulse Ox 05/02/18 13:00 114/72 97 05/02/18 11:40 130/78 129/82 125/72 97 05/02/18 06:16 133/74 96 05/01/18 20:55 120/69 98 05/01/18 19:27 147/87 95 05/01/18 17:30 139/66 97 05/01/18 16:26 117/65 99 05/01/18 16:00 133/89 98 Intake and Output 05/02/18 05/02/18 05/02/18 06:59 14:59 22:59 Intake Total 800 Balance 800 Intake: Intake, IV Titration 800 Amount Sodium Chloride 0.9% 1, 800 000 ml @ 100 mls/hr IV . Q10H ONE Rx#:[id number] Other: Voiding Method Toilet Toilet Urinal # Voids 1 2 PHYSICAL EXAM: GENERAL APPEARANCE: Patient is a well-developed, male who appears to be in no acute distress. HEENT: Normocephalic, atraumatic, no facial asymmetry is seen. Neck is supple with no masses felt. CARDIOVASCULAR: Regular rate and rhythm. ABDOMEN: Nontender, nondistended. EXTREMITIES: Show no edema or clubbing. NEUROLOGICAL EXAM: Patient is awake, alert, and oriented 3. Speech and language are normal. Strength is full in all 4 extremities. Sensory exam to light touch is normal in all 4 extremities. No facial asymmetry is seen on cranial nerve testing. No tremors or seizure-like activity noted. Results - Laboratory Findings CBC and BMP: 05/02/18 07:32 05/02/18 07:32 Abnormal Lab Findings: Abnormal Labs 05/01/18 05/01/18 05/01/18 13:30 13:30 13:30 RBC 4.28 L Hgb 12.2 L Hct 38.3 L RDW 16.6 H Plt Count 140 L D-Dimer 5.91 H Chloride 112 H Glucose 144 H Total Protein Albumin 05/02/18 05/02/18 07:32 07:32 RBC Hgb 12.3 L Hct 38.9 L RDW 16.7 H Plt Count 130 L D-Dimer Chloride 112 H Glucose Total Protein 5.9 L Albumin 3.1 L Assessment and Plan Plan: Impression: 1. Syncope 2. History of seizures 3. Coronary artery disease 4. Cardiac arrhythmia with AICD 5. History of dementia 6. Peripheral vascular disease Impression: It appears patient has had 2 syncopal episodes within the past 3 days. I believe these episodes are cardiac related. As mentioned above, CT of the brain was negative for any acute process. Carotid Dopplers were negative for any hemodynamically significant stenosis. Patient had orthostatics which were negative. Patient does have severe cardiomyopathy with ejection fraction of 20-25%. Chest x-ray was unremarkable. Patient had elevated d-dimer with a negative chest CTA. I recommend continuing cardiac workup including interrogation of pacemaker/defibrillator. I recommend continuing Depakote at 500 mg twice a day. I will order an EEG to rule out seizures or encephalopathy. Continue Aricept 10 mg daily at bedtime. I doubt this is seizure activity. No neurological deficits noted. Continue current medical and cardiology workup. Continue neurological checks. Continue seizure precautions. Barring any abnormality on the EEG, patient is cleared from a neurological standpoint. Thank you for allowing me to participate in the care of your patient. Feel free to call with any questions or concerns. I performed an examination of the patient and discussed the management with the [employer]. I have reviewed the [employer] notes and agree with the findings and plan of care.
[2018-05-02] MEDS: DONEPEZIL 10 MG TAB PO SCH (21:39)
[2018-05-02] MEDS: ATORVASTATIN 10 MG TAB PO SCH (21:40)
[2018-05-03] MEDS: LEVOTHYROXINE 75 MCG TAB PO SCH (06:25)
[2018-05-03] MEDS: PANTOPRAZOLE 40 MG TABLET PO SCH (06:26)
[2018-05-03] MEDS: CLOPIDOGREL 75 MG TAB PO SCH (08:56)
[2018-05-03] MEDS: DIVALPROEX 500 MG TABLET.DR PO SCH (08:56)
[2018-05-03] MEDS: TORSEMIDE 20 MG TAB PO SCH (08:56)
[2018-05-03] MEDS: METOPROLOL TARTRATE 12.5 MG TAB PO SCH (08:56)
[2018-05-03] MEDS: LISINOPRIL 5 MG TAB PO SCH (08:56)
[2018-05-03] MEDS: ASPIRIN 81 MG PO SCH (08:56)
[2018-05-03] MEDS: ESCITALOPRAM 20 MG TAB PO SCH (08:56)
[2018-05-03] MEDS: DIAZEPAM 2 MG TAB PO SCH (09:01)
[2018-05-03 09:11] VITALS: RESP 16; TEMP 97.1
--- NOTE | 2018-05-03 11:55 | P.PN ---
Subjective Progress Note Date: 05/03/18 This is a 68-year-old gentleman with known history of coronary artery disease and prior bypass surgery, prior AICD, hypertension, hyperlipidemia, hypothyroidism, dementia, depression, nicotine dependence, who recently moved here from [place]. He presented to the hospital following a syncopal episode. He was seen in consultation on the MedSurg unit. He did have his device interrogated which did not reveal any significant arrhythmias. From cardiology's perspective, he may be able to be discharged home once cleared by his primary. He did have a brief run of nonsustained ventricular tachycardia. Hemodynamically he is stable. Blood pressure 120/70 with a heart rate in the 60s. Objective - Vital Signs Vital signs: Vital Signs Temp 97.1 F L 05/03/18 08:00 Pulse 60 05/03/18 08:00 Resp 16 05/03/18 08:00 BP 125/76 05/03/18 08:00 Pulse Ox 97 05/03/18 08:00 Intake & Output 05/02/18 05/03/18 05/03/18 18:59 06:59 18:59 Intake Total 800 400 Output Total 240 Balance 800 -240 400 Weight 63.3 kg Intake: Intake, IV Titration 800 Amount Sodium Chloride 0.9% 1, 800 000 ml @ 100 mls/hr IV . Q10H ONE Rx#:[id number] Oral 400 Output: Urine 240 Other: Voiding Method Toilet Toilet Urinal Urinal # Voids 2 1 - Exam PHYSICAL EXAMINATION: GENERAL: 68-year-old gentleman in no acute distress at the time of my examination HEENT: Head is atraumatic, normocephalic. Pupils equal, round. Sclera anicteric. Conjunctiva are clear. Mucous membranes of the mouth are moist. Neck is supple. There is no elevated jugular venous pressure. No carotid bruit is heard. HEART EXAMINATION: Heart S1 and S2 1 systolic ejection murmur is heard. CHEST EXAMINATION: Lungs are clear to auscultation and precussion. No chest wall tenderness is noted on palpation or with deep breathing. ABDOMEN: Soft, nontender. Bowel sounds are heard. No organomegaly noted. EXTREMITIES: 2+ peripheral pulses with no evidence of peripheral edema and no calf tenderness noted. NEUROLOGIC patient is awake, alert and oriented X3. . - Labs CBC & Chem 7: 05/02/18 07:32 05/02/18 07:32 Assessment and Plan Plan: ASSESSMENT #1 Syncope, orthostatics are negative. Telemetry indicates sinus mechanism with no arrhythmias noted. #2 History of coronary artery disease status post bypass grafting, details unavailable #3 Ischemic cardiomyopathy, ejection fraction 20-25%. Baseline unknown. #[address], [employer] device will be interrogated today. #5 Chronic systolic heart failure, currently euvolemic #6 Hypertension #7 Dyslipidemia Plan AICD was interrogated and did not reveal any significant tachycardia or bradycardia arrhythmias. Cardiology's perspective, he may be able to be discharged home once cleared by the primary. Follow-up appointment will be made in the office post discharge. DNP note has been reviewed, I agree with a documented findings and plan of care. Patient was seen and examined.
[2018-05-03 12:25] VITALS: BP 134/74
[2018-05-03 12:28] VITALS: PULSE 60
--- NOTE | 2018-05-03 12:57 | P.DS ---
Providers Date of admission: 05/01/18 16:47 Expected date of discharge: 05/03/18 Attending physician: Wlater Mac MD Consults: 05/01/18 18:23 Consult Physician Routine Consulting Provider: Richard Sanders Consult Reason/Comments: syncopal episode Do you want consulting provider notified?: Yes 05/01/18 18:24 Consult Physician Routine Consulting Provider: Claudio Childress Consult Reason/Comments: Syncopal episode history of seizure Do you want consulting provider notified?: Already Contacted Primary care physician: Stated None Hospital Course: Discharge Diagnosis: Syncope Ischemic cardiomyopathy with ejection fraction 20-25% status post AICD Coronary artery disease status post bypass grafting Chronic systolic congestive heart failure with EF 20-25%, no acute exacerbation Hypertension Dyslipidemia Hospital Course: Patient is a 67-year-old male with a history of coronary artery disease status post four-vessel bypass, systolic cardiomyopathy with AICD, and dementia who presented to the emergency department with complaints of a syncopal episode. In the ER he underwent an extensive evaluation. CT of the brain showed chronic small vessel ischemic changes without any acute intracranial process. CT of the chest was negative for pulmonary embolism. And troponin was negative. He was admitted for evaluation of syncope. Carotid Dopplers were done which showed no significant stenosis. Echocardiogram performed which showed ejection fraction 20-25%. AICD was interrogated which appeared to be properly functioning with no recent discharges. He was seen by cardiology. They did not recommend any medication adjustment at this time but did recommend following up in outpatient clinic. He is also seen by neurology who felt his syncopal episode was likely cardiac in origin. They recommended continuing his Depakote with his history of seizures last being 2 years ago. Orthostatic blood pressures were negative. With his cardiac assessment being completely was determined stable for discharge home. He was given instructions to establish care with Marisela Mcnally, nurse practitioner as he recently moved here from [place]. He will also follow-up with Dr. Sommer in 2-4 weeks. He states that he does not need any of his bedications refilled. He does not have a place to stay at this point in time and will be at the homeless alf. He does have a mission analyst already attempting to find him placement. Patient seen and examined at bedside. He is feeling better. No dizziness, lightheadedness, chest pain, or shortness of breath. No other complaints at this time. Patient expressed understanding of test results and need for follow- up. Vital signs reviewed and stable. General: non toxic, no distress, appears at stated age Derm: warm, dry Head: atraumatic, normocephalic, symmetric Eyes: EOMI, no lid lag, anicteric sclera Mouth: no lip lesion, mucus membranes moist Cardiovascular: S1S2 reg, no murmur, positive posterior tibial pulse bilateral, Lungs: CTA bilateral, no rhonchi, no rales , no accessory muscle use Abdominal: soft, nontender to palpation, no guarding, no appreciable organomegaly Ext: no gross muscle atrophy, no edema, no contractures Neuro: CN II-XI grossly intact, no focal neuro deficits Psych: Alert, oriented, appropriate affect A total of 37 minutes of time were spent preparing this complex discharge summary . Pertinent Studies: Carotid Dopplers-no hemodynamically significant stenosis CTA chest-negative for pulmonary emboli Echo-ejection fraction 20-25% with severe global hypokinesis-severely dilated left atrium, moderate to severe mitral regurgitation CT [id number] atrophic and chronic small vessel ischemic changes without any acute intracranial process Patient Condition at Discharge: Stable Plan - Discharge Summary Discharge Rx Participant: Yes New Discharge Prescriptions: Continue Torsemide [Demadex] 5 mg PO DAILY Ramipril [Altace] 1.25 mg PO DAILY Escitalopram [Lexapro] 20 mg PO DAILY Diazepam 2 mg PO BID Simvastatin [Zocor] 20 mg PO HS Levothyroxine Sodium [Synthroid] 75 mcg PO DAILY Donepezil [Aricept] 10 mg PO HS Divalproex [Depakote] 500 mg PO BID Dexlansoprazole [Dexilant] 60 mg PO DAILY Clopidogrel Bisulfate [Plavix] 75 mg PO DAILY Aspirin 81 mg PO DAILY Metoprolol Tartrate [Lopressor] 12.5 mg PO BID Discharge Medication List Aspirin 81 mg PO DAILY 05/01/18 [History] Clopidogrel Bisulfate [Plavix] 75 mg PO DAILY 05/01/18 [History] Dexlansoprazole [Dexilant] 60 mg PO DAILY 05/01/18 [History] Diazepam 2 mg PO BID 05/01/18 [History] Divalproex [Depakote] 500 mg PO BID 05/01/18 [History] Donepezil [Aricept] 10 mg PO HS 05/01/18 [History] Escitalopram [Lexapro] 20 mg PO DAILY 05/01/18 [History] Levothyroxine Sodium [Synthroid] 75 mcg PO DAILY 05/01/18 [History] Metoprolol Tartrate [Lopressor] 12.5 mg PO BID 05/01/18 [History] Ramipril [Altace] 1.25 mg PO DAILY 05/01/18 [History] Simvastatin [Zocor] 20 mg PO HS 05/01/18 [History] Torsemide [Demadex] 5 mg PO DAILY 05/01/18 [History] Follow up Appointment(s)/Referral(s): Richard Sanders MD [STAFF PHYSICIAN] - 4 Weeks Marisela Butler NPC [REFERRING] - 1 Week None,Stated [Primary Care Provider] - 1-2 days Patient Instructions/Handouts: Heart Failure (DC), Low-Sodium Diet (DC) Activity/Diet/Wound Care/Special Instructions: heart healthy diet, 1.5 L fluid restriction activity as tolerated Abstain from illicit drugs Discharge Disposition: HOME SELF-CARE
--- NOTE | 2018-05-03 18:29 | EEG ---
ELECTROENCEPHALOGRAM REPORT DATE OF SERVICE: 05/03/2018. REASON FOR TESTING: Syncope. DESCRIPTION OF THE PROCEDURE: This EEG was performed using a 21 channel digital electroencephalograph, following international 10-20 system. DESCRIPTION OF THE RECORDING: From the beginning of the tracing, with patient's eyes closed, the background rhythm was mostly consisting of 9 Hz alpha frequency in the posterior occipital leads. No obvious asymmetry is seen. Photic stimulation was performed with a minimal driving response seen. No pathological waves were elicited. Occasional movement and lead artifacts are seen. Hyperventilation was not performed. The patient does reach stage II of sleep during the tracing and occasional sleep spindles are seen. No epileptiform discharges were seen. His EKG lead showed a regular rate and rhythm. INTERPRETATION: This asleep and awake EEG can be considered within normal limits. There is no asymmetry seen. No epileptiform discharges were noticed. The absence of epileptiform discharges does not rule out the diagnosis of epilepsy; therefore clinical correlation is recommended. MMMARVEL / IJMoni: [id number] /
== END 2018-05-03 16:29 | disposition home or self-care (01) | DRG 312 ==
LOC: EC 13:23 → 5MS5E 16:47 → 6SEL 05-02 20:13
PROVIDERS: ADMIT Family Medicine; ATTEND Family Medicine
DX: R55 Syncope and collapse (principal); I47.2 Ventricular tachycardia; I50.22 Chronic systolic (congestive) heart failure; E03.9 Hypothyroidism, unspecified; E78.5 Hyperlipidemia, unspecified; F03.90 Unspecified dementia, unspecified severity, without behavioral disturbance, psychotic disturbance, mood disturbance, and anxiety; F17.200 Nicotine dependence, unspecified, uncomplicated; F32.9 Major depressive disorder, single episode, unspecified; I11.0 Hypertensive heart disease with heart failure; I25.10 Atherosclerotic heart disease of native coronary artery without angina pectoris; I25.5 Ischemic cardiomyopathy; I73.9 Peripheral vascular disease, unspecified; K21.9 Gastro-esophageal reflux disease without esophagitis; R79.1 Abnormal coagulation profile; G40.909 Epilepsy, unspecified, not intractable, without status epilepticus; Z59.0 Homelessness; Z79.02 Long term (current) use of antithrombotics/antiplatelets; Z79.82 Long term (current) use of aspirin; Z79.899 Other long term (current) drug therapy; Z95.1 Presence of aortocoronary bypass graft; Z95.810 Presence of automatic (implantable) cardiac defibrillator; Z88.5 Allergy status to narcotic agent; Z88.0 Allergy status to penicillin
CPT/HCPCS: 36415; 70450; 71046; 71275; 80053; 80164; 82550; 82553; 84484; 85025; 85379; 85610; 85730; 93005; 93306; 93880; 95819; 99285

== ENCOUNTER 2018-08-18 01:40 | Observation (INO) | payer MEDICARE, OTHER ==
--- NOTE | 2018-08-18 01:53 | ED ---
General Adult HPI - General Stated complaint: anxiety Time Seen by Provider: 08/18/18 01:42 - History of Present Illness Initial comments: Magaly is a 68-year-old gentleman with a history of schizophrenia and dementia who presents to the emergency department today for evaluation of abdominal distention and shortness of breath. History is very difficult to obtain, patient is all over the place and his history consistent with his history of schizophrenia. Per EMS they were told that the patient was seen and evaluated at [facility] yesterday however chose to leave AMA. Per EMS the patient's neighbors who provided some the history or currently petitioning the Court for emergent guardianship of the patient due to him repeatedly seeking care hospitals and then leaving AMA and having inability to have continuity of care. Patient reports that he has noticed progressively worsening abdominal distention , he reports some abdominal discomfort today. He cannot tell me when this began. He denies any nausea or vomiting. Patient also states that he feels that because his abdomen is distended he's having trouble breathing. He also can't tell me when this began. He denies any chest pain or cough. He denies any sick contacts. He is uncertain of his past medical history. - Related Data Home Medications Medication Instructions Recorded Confirmed Donepezil [Aricept] 10 mg PO DAILY 05/01/18 06/29/18 Atorvastatin [Lipitor] 20 mg PO DAILY 06/29/18 06/29/18 Levothyroxine Sodium [Synthroid] 50 mcg PO DAILY 06/29/18 06/29/18 Memantine [Namenda] 5 mg PO BID 06/29/18 06/29/18 QUEtiapine [SEROquel] 25 mg PO DAILY 06/29/18 06/29/18 Venlafaxine HCl ER [Effexor Xr] 75 mg PO DAILY 06/29/18 06/29/18 Previous Rx's Medication Instructions Recorded Albuterol Inhaler [Ventolin Hfa 2 puff INHALATION Q4HR PRN #1 06/29/18 Inhaler] inhaler Azithromycin [Zithromax Z-pack] 250 mg PO DIRECTED #6 tab 06/29/18 predniSONE 20 mg PO BID #8 tab 06/29/18 Allergies Allergy/AdvReac Type Severity Reaction Status Date / Time morphine Allergy Anaphylaxis Verified 06/29/18 16:34 Penicillins Allergy Unknown Verified 06/29/18 16:34 Influenza Virus Vaccines AdvReac Unknown Verified 06/29/18 16:34 pneumococcal vaccine AdvReac Unknown Verified 06/29/18 16:34 Review of Systems ROS Statement: Those systems with pertinent positive or pertinent negative responses have been documented in the HPI. ROS Other: All systems not noted in ROS Statement are negative. Past Medical History Past Medical History: Heart Failure, Dementia History of Any Multi-Drug Resistant Organisms: None Reported Past Surgical History: Coronary Bypass/CABG Additional Past Surgical History / Comment(s): COLON Past Anesthesia/Blood Transfusion Reactions: No Reported Reaction Past Psychological History: Schizoaffective Disorder, Schizophrenia Smoking Status: Current every day smoker Past Alcohol Use History: None Reported Past Drug Use History: None Reported General Exam - General Exam Comments Initial Comments: Physical Exam GENERAL: Unkempt appearance, appears older than stated age HENT: Normocephalic, Atraumatic. EYES: PERRL, EOMI No scleral icterus PULMONARY: Mild tachypnea, he creased breath sounds at bilateral bases CARDIOVASCULAR: There is a regular rate and rhythm without any murmurs gallops or rubs. ABDOMEN: Generalized distention, minimal tenderness diffusely SKIN: Skin is clear with no lesions or rashes and otherwise unremarkable. : Deferred NEUROLOGIC: Alert and oriented to self, able to identify what hospital he is in, somewhat confused about date, very poor historian MUSCULOSKELETAL: Normal extremities with adequate strength and full range of motion. No lower extremity swelling or edema. No calf tenderness. PSYCHIATRIC: Denies suicidal or homicidal ideation but has some flight of ideas Limitations: no limitations Course Vital Signs 08/18/18 08/18/18 08/18/18 01:42 04:30 05:29 Temperature 97.9 F Pulse Rate 79 67 71 Respiratory 18 16 18 Rate Blood Pressure 122/89 117/78 115/64 O2 Sat by Pulse 93 L 95 94 L Oximetry 08/18/18 06:17 Temperature Pulse Rate 80 Respiratory 16 Rate Blood Pressure 131/90 O2 Sat by Pulse 94 L Oximetry EKG Findings - EKG Comments: EKG Findings:: EKG obtained at 1:56 AM, rate 73 rhythm is sinus at normal axis, normal intervals no acute ST elevations or depressions no evidence of acute ischemia or infarction Medical Decision Making - Medical Decision Making The patient was seen and evaluated history is obtained from the patient as well as EMS Patient is a very poor historian he is very anxious and not cooperative with exam Patient with worsening abdominal distention, some intermittent abdominal pain, can't recall his last bowel movement, denies any previous GI pathology Patient also reports he feels he can't take a deep breath because of his abdomen Labs and imaging were ordered Labs and some mild abnormalities, labs consistent with dehydration, elevated BUN , mildly elevated potassium, mild leukocytosis Labs also reveal lactic acidosis additional IV fluids were ordered Transaminases and amylase and lipase were normal however computed tomography scan of the abdomen was ordered Computed tomography scan reveals no obvious acute pathology. Patient does have some ascites, a calcified aortic aneurysm of 5.3 cm, bilateral pleural effusions Patient care was discussed with Dr. koehler of [facility] who accepts admission for abdominal pain, lactic acidosis - Lab Data Result diagrams: 08/18/18 01:50 08/18/18 03:44 Lab Results 08/18/18 08/18/18 08/18/18 Range/Units 01:50 02:50 03:44 WBC 13.8 H (3.8-10.6) k/uL RBC 4.40 (4.30-5.90) m/uL Hgb 12.1 L (13.0-17.5) gm/dL Hct 39.3 (39.0-53.0) % MCV 89.3 (80.0-100.0) fL MCH 27.5 (25.0-35.0) pg MCHC 30.7 L (31.0-37.0) g/dL RDW 16.5 H (11.5-15.5) % Plt Count 150 (150-450) k/uL Neutrophils % 71 % Lymphocytes % 22 % Monocytes % 5 % Eosinophils % 1 % Basophils % 0 % Neutrophils # 9.8 H (1.3-7.7) k/uL Lymphocytes # 3.1 (1.0-4.8) k/uL Monocytes # 0.6 (0-1.0) k/uL Eosinophils # 0.1 (0-0.7) k/uL Basophils # 0.0 (0-0.2) k/uL Anisocytosis Slight Sodium 136 L (137-145) mmol/L Potassium 5.7 H (3.5-5.1) mmol/L Chloride 99 (98-107) mmol/L Carbon Dioxide 26 (22-30) mmol/L Anion Gap 11 mmol/L BUN 33 H (9-20) mg/dL Creatinine 1.23 (0.66-1.25) mg/dL Est GFR (CKD-EPI)AfAm 70 (>60 ml/min/1.73 sqM) Est GFR (CKD-EPI)NonAf 61 (>60 ml/min/1.73 sqM) Glucose 101 H (74-99) mg/dL Lactic Ac Sepsis Rflx Plasma Lactic Acid Rigoberto (0.7-2.0) mmol/L Calcium 8.8 (8.4-10.2) mg/dL Total Bilirubin 0.7 (0.2-1.3) mg/dL AST 35 (17-59) U/L ALT 29 (21-72) U/L Alkaline Phosphatase 85 (38-126) U/L Total Creatine Kinase (55-170) U/L CK-MB (CK-2) (0.0-2.4) ng/mL CK-MB (CK-2) Rel Index Troponin I (0.000-0.034) ng/mL Total Protein 7.4 (6.3-8.2) g/dL Albumin 4.1 (3.5-5.0) g/dL Amylase 127 H (30-110) U/L Lipase 248 (23-300) U/L Urine Color Yellow Urine Appearance Clear (Clear) Urine pH 6.0 (5.0-8.0) Ur Specific Eads 1.020 (1.001-1.035) Urine Protein Trace H (Negative) Urine Glucose (UA) Negative (Negative) Urine Ketones Negative (Negative) Urine Blood Negative (Negative) Urine Nitrite Negative (Negative) Urine Bilirubin Negative (Negative) Urine Urobilinogen <2.0 (<2.0) mg/dL Ur Leukocyte Esterase Negative (Negative) 08/18/18 08/18/18 08/18/18 Range/Units 03:44 03:44 04:30 WBC (3.8-10.6) k/uL RBC (4.30-5.90) m/uL Hgb (13.0-17.5) gm/dL Hct (39.0-53.0) % MCV (80.0-100.0) fL MCH (25.0-35.0) pg MCHC (31.0-37.0) g/dL RDW (11.5-15.5) % Plt Count (150-450) k/uL Neutrophils % % Lymphocytes % % Monocytes % % Eosinophils % % Basophils % % Neutrophils # (1.3-7.7) k/uL Lymphocytes # (1.0-4.8) k/uL Monocytes # (0-1.0) k/uL Eosinophils # (0-0.7) k/uL Basophils # (0-0.2) k/uL Anisocytosis Sodium (137-145) mmol/L Potassium (3.5-5.1) mmol/L Chloride (98-107) mmol/L Carbon Dioxide (22-30) mmol/L Anion Gap mmol/L BUN (9-20) mg/dL Creatinine (0.66-1.25) mg/dL Est GFR (CKD-EPI)AfAm (>60 ml/min/1.73 sqM) Est GFR (CKD-EPI)NonAf (>60 ml/min/1.73 sqM) Glucose (74-99) mg/dL Lactic Ac Sepsis Rflx Y Plasma Lactic Acid Rigoberto 2.5 H* (0.7-2.0) mmol/L Calcium (8.4-10.2) mg/dL Total Bilirubin (0.2-1.3) mg/dL AST (17-59) U/L ALT (21-72) U/L Alkaline Phosphatase (38-126) U/L Total Creatine Kinase 77 (55-170) U/L CK-MB (CK-2) 1.0 (0.0-2.4) ng/mL CK-MB (CK-2) Rel Index 1.3 Troponin I <0.012 (0.000-0.034) ng/mL Total Protein (6.3-8.2) g/dL Albumin (3.5-5.0) g/dL Amylase (30-110) U/L Lipase (23-300) U/L Urine Color Urine Appearance (Clear) Urine pH (5.0-8.0) Ur Specific Eads (1.001-1.035) Urine Protein (Negative) Urine Glucose (UA) (Negative) Urine Ketones (Negative) Urine Blood (Negative) Urine Nitrite (Negative) Urine Bilirubin (Negative) Urine Urobilinogen (<2.0) mg/dL Ur Leukocyte Esterase (Negative) Disposition Clinical Impression: Abdominal pain Disposition: ADMITTED IP TO THIS HOSP
[2018-08-18] MEDS ORDERED: SODIUM CHLORIDE 0.9% 1,000 ML IV STA (02:22)
[2018-08-18 02:37] LABS: Anisocytosis Slight; Basophils % (A) 0 %; Eosinophils # (A) 0.1 k/uL (0-0.7); Eosinophils % (A) 1 %; HCT 39.3 % (39.0-53.0); HGB 12.1 gm/dL (13.0-17.5); Lymphocytes # (A) 3.1 k/uL (1.0-4.8); Lymphocytes % (A) 22 %; MCH 27.5 pg (25.0-35.0); MCHC 30.7 g/dL (31.0-37.0); MCV 89.3 fL (80.0-100.0); Mean Platelet Volume 8.8; Monocytes # (A) 0.6 k/uL (0-1.0); Monocytes % (A) 5 %; Neutrophils # (A) 9.8 k/uL (1.3-7.7); Neutrophils % (A) 71 %; Platelet Count 150 k/uL (150-450); RDW 16.5 % (11.5-15.5); WBC 13.8 k/uL (3.8-10.6)
[2018-08-18] MEDS ORDERED: LORazepam 1 MG TAB PO STA (02:44)
--- NOTE | 2018-08-18 02:46 | XR ---
EXAMINATION TYPE: XR KUB DATE OF EXAM: 08/18/2018 COMPARISON: NONE HISTORY: Abdominal pain TECHNIQUE: 2 views FINDINGS: 2 upright views were obtained and show no sign of intestinal obstruction or pneumoperitoneu m. Fecal pattern is normal. There are small calcifications over both kidneys. Lung bases are clear of consolidation. There is no evidence of abdominal mass. IMPRESSION: Nonacute abdomen. Possible renal calculi.
[2018-08-18 03:02] LABS: Appearance,Urine Clear (Clear); Bilirubin,Urine Negative (Negative); Blood,Urine Negative (Negative); Color,Urine Yellow; Glucose,Urine (UA) Negative (Negative); Ketones,Urine Negative (Negative); Leukocyte Esterase,Urine Negative (Negative); Nitrite,Urine Negative (Negative); Protein,Urine Trace (Negative); Urobilinogen,Urine <2.0 mg/dL (<2.0)
[2018-08-18 04:06] LABS: Albumin 4.1 g/dL (3.5-5.0); Calcium 8.8 mg/dL (8.4-10.2); Potassium 5.7 mmol/L (3.5-5.1); Total Bilirubin 0.7 mg/dL (0.2-1.3); Total Protein 7.4 g/dL (6.3-8.2)
[2018-08-18 04:11] LABS: Creatine Kinase 77 U/L (55-170)
[2018-08-18 04:23] LABS: Troponin I <0.012 ng/mL (0.000-0.034)
[2018-08-18] MEDS ORDERED: SODIUM CHLORIDE 0.9% 1,000 ML IV SCH (05:00)
[2018-08-18] MEDS ORDERED: SODIUM CHLORIDE 0.9% 1,000 ML IV ONE (05:00)
--- NOTE | 2018-08-18 05:14 | CT ---
EXAM: CT Abdomen and Pelvis With Intravenous Contrast CLINICAL HISTORY: ITS.REASON CT Reason: Pain TECHNIQUE: Axial computed tomography images of the abdomen and pelvis with intravenous contrast. CTDI is 14 mGy and DLP is 650 mGy-cm. This CT exam was performed using one or more of the following dose reduction techniques: automated exposure control, adjustment of the mA and/or kV according to patient size, and/or use of iterative reconstruction technique. COMPARISON: Abdominal radiograph 08/18/18 FINDINGS: Lung bases: Pulmonary edema and moderate bilateral pleural effusions. ABDOMEN: Liver: Unremarkable. Gallbladder and bile ducts: Sludge. Pancreas: Unremarkable. Spleen: Unremarkable. Adrenals: Unremarkable. Kidneys and ureters: No hydronephrosis. Stomach and bowel: No bowel obstruction or bowel wall thickening. Colonic diverticulosis. PELVIS: Appendix: Unremarkable. Bladder: Unremarkable. Reproductive: Enlarged. ABDOMEN and PELVIS: Intraperitoneal space: Trace ascites. Bones/joints: No acute fractures. Soft tissues: Fat and fluid containing right inguinal hernia. Diffuse soft tissue stranding. Vasculature: 4.3 x 4.3 cm infrarenal aortic aneurysm with 60-70% occlusion secondary to thrombus. Lymph nodes: No enlarged lymph nodes. IMPRESSION: 1. Pulmonary edema and moderate bilateral pleural effusions. Trace ascites and diffuse soft tissue stranding consistent with increased volume status. 2. 4.3 cm infrarenal aortic aneurysm with 60-70% occlusion secondary to mostly noncalcified and some calcified atherosclerosis. 3. Colonic diverticulosis. 4. Enlarged prostate.
--- NOTE | 2018-08-18 07:15 | P.HPIM ---
History of Present Illness H&P Date: 08/18/18 The patient is a 68 yo M with a PMH of CAD s/p CABG, CHF s/p AICD, Dementia, active smoker 2 PPD (40 years) seizure disorder, and schizophrenia presented to the ED due to worsening SOB and epigastric discomfort on-going for 4 days. The history was difficult to obtain since patient wasn't able to provide a succinct history and would change his statements. He endorsed that recently he had been non-compliant with his lasix and had developed worsening SOB w/ 4 pillow orthopnea, PND, and epigastric discomfort. He also endorsed dizziness, wheezing , and feeling unsteady but denied fever, chills, nausea, vomiting, diarrhea, constipation, headache, or dysuria. In the ED, the patient underwent a comprehensive w/u with Lactate 2.5, K 5.7, BUN 33, Cr 1.23, and WBC 13.8. CT abd/pelvis w/ contrast revealed Pulmonary edema consistent w/ CHF. Review of Systems Pertinent positives and negatives as discussed in HPI, a complete review of systems was performed and all other systems are negative. Past Medical History Past Medical History: Heart Failure, Dementia History of Any Multi-Drug Resistant Organisms: None Reported Past Surgical History: Coronary Bypass/CABG Additional Past Surgical History / Comment(s): COLON Past Anesthesia/Blood Transfusion Reactions: No Reported Reaction Past Psychological History: Schizoaffective Disorder, Schizophrenia Smoking Status: Current every day smoker Past Alcohol Use History: None Reported Past Drug Use History: None Reported Medications and Allergies Home Medications Medication Instructions Recorded Confirmed Type Donepezil [Aricept] 10 mg PO DAILY 05/01/18 06/29/18 History Albuterol Inhaler [Ventolin Hfa 2 puff INHALATION Q4HR PRN #1 06/29/18 Rx Inhaler] inhaler Atorvastatin [Lipitor] 20 mg PO DAILY 06/29/18 06/29/18 History Azithromycin [Zithromax Z-pack] 250 mg PO DIRECTED #6 tab 06/29/18 Rx Levothyroxine Sodium [Synthroid] 50 mcg PO DAILY 06/29/18 06/29/18 History Memantine [Namenda] 5 mg PO BID 06/29/18 06/29/18 History QUEtiapine [SEROquel] 25 mg PO DAILY 06/29/18 06/29/18 History Venlafaxine HCl ER [Effexor Xr] 75 mg PO DAILY 06/29/18 06/29/18 History predniSONE 20 mg PO BID #8 tab 06/29/18 Rx Allergies Allergy/AdvReac Type Severity Reaction Status Date / Time morphine Allergy Anaphylaxis Verified 06/29/18 16:34 Penicillins Allergy Unknown Verified 06/29/18 16:34 Influenza Virus Vaccines AdvReac Unknown Verified 06/29/18 16:34 pneumococcal vaccine AdvReac Unknown Verified 06/29/18 16:34 Physical Exam Vitals: Vital Signs Temp Pulse Resp BP Pulse Ox 08/18/18 06:17 80 16 131/90 94 L 08/18/18 05:29 97.9 F 71 18 115/64 94 L 08/18/18 04:30 67 16 117/78 95 08/18/18 01:42 79 18 122/89 93 L Intake and Output 08/17/18 08/17/18 08/18/18 14:59 22:59 06:59 Other: Weight 63.503 kg General: [non toxic], [mild distress], [appears at stated age], [normal weight] Derm: [no unusual rashes/lesions] [no unusual ecchymoses], [warm], [dry] Head: [atraumatic], [normocephalic], [symmetric] Eyes: [EOMI], [no lid lag], [anicteric sclera], [pupils equal round reactive to light] ENT: [Nose and ears atraumatic], [no thrush], [no pharyngeal erythema] Neck: [No thyromegaly], [no cervical lymphadenopathy], [trachea midline], [ supple] Mouth: [no lip lesion], [mucus membranes moist] Cardiovascular: [S1S2 reg], [no murmur], [positive posterior tibial pulse bilateral], [no edema], [capillary refill less than 2 seconds] Lungs: [Bibasilar mild rales, no coarse breath sounds] , [no accessory muscle use] Abdominal: [Mildly distended], [epigastric tenderness], [no guarding], [no appreciable organomegaly], [normal bowel sounds] Ext: [no gross muscle atrophy], [muscle strength 5 out of 5 in all 4 extremities grossly], [no contractures], Neuro: [ CN II-XI grossly intact], [light touch intact all 4 extremities], [ finger to nose within normal limits], Psych: [Alert], [some tangentiality w/ disorganized thought process] Results CBC & Chem 7: 08/18/18 01:50 08/18/18 03:44 Labs: Abnormal Lab Results - Last 24 Hours (Table) 08/18/18 08/18/18 08/18/18 Range/Units 01:50 02:50 03:44 WBC 13.8 H (3.8-10.6) k/uL Hgb 12.1 L (13.0-17.5) gm/dL MCHC 30.7 L (31.0-37.0) g/dL RDW 16.5 H (11.5-15.5) % Neutrophils # 9.8 H (1.3-7.7) k/uL Sodium 136 L (137-145) mmol/L Potassium 5.7 H (3.5-5.1) mmol/L BUN 33 H (9-20) mg/dL Glucose 101 H (74-99) mg/dL Plasma Lactic Acid Rigoberto (0.7-2.0) mmol/L Amylase 127 H (30-110) U/L Urine Protein Trace H (Negative) 08/18/18 Range/Units 03:44 WBC (3.8-10.6) k/uL Hgb (13.0-17.5) gm/dL MCHC (31.0-37.0) g/dL RDW (11.5-15.5) % Neutrophils # (1.3-7.7) k/uL Sodium (137-145) mmol/L Potassium (3.5-5.1) mmol/L BUN (9-20) mg/dL Glucose (74-99) mg/dL Plasma Lactic Acid Rigoberto 2.5 H* (0.7-2.0) mmol/L Amylase (30-110) U/L Urine Protein (Negative) Assessment and Plan Plan: SOB w/ orthopnea, PND, likely acute CHF exacerbation in setting of non- compliance to medications -Will give Lasix 40 mg IVP bid -I/Os, fluid restriction -Telemetry monitoring Elevated lactate -Possible due to CHF exacerbation -Will repeat MARSHALL, pre-renal -Likely secondary to CHF. Monitor BMP Leukocytosis -Likely reactive. Infra-renal aortic aneurysm -Will need serial monitoring as outpatient DVT//GI prophylaxis - IPCDs - No indication for GI prophylaxis The patient is admitted with an anticipated greater than 2 midnight stay for evaluation of CHF exacerbation CODE STATUS: Full-code Discussed with: Patient Anticipated discharge date: 08/20/[address]: Home A total of 60 minutes was spent on the care of this complex patient more than 50 % of the time was spent in counseling and care coordination.
[2018-08-18] MEDS ORDERED: CALCIUM GLUCONATE 1,000 MG in SODIUM CHLORIDE 0.9% 100 ML IVPB ONE (08:00)
[2018-08-18] MEDS: FUROSEMIDE 10 MG/ML 4 ML VIAL IV SCH ×2 (09:24→22:13)
[2018-08-18] MEDS: LORazepam 2 MG/ML INJ IV PRN (10:39)
--- NOTE | 2018-08-18 18:01 | P.PN ---
Subjective Patient was admitted here with shortness of breath and possible abdominal pain. Patient states that he's been having shortness of breath for few days and been significantly worsening last couple days. He reports leg swelling. He reports orthopnea and PND. He's been feeling very thirsty and been drinking lots of fluid. He also having cough nonproductive and sensation of chest congestion and wheezing. No fever or chills. He does report some malaise and body aches. He states that prior to this he has some sore throat and runny nose. He's been coughing quite a bit to his pointing towards his lower chest upper abdomen regarding the pain. He also has a couple episodes of loose bowel movements. Chest x-ray and CTA showed pulmonary vascular congestion. CT of abdomen was unremarkable except for the AAA. Work was notable for mildly elevated lactic acid and potassium 5.7 REVIEW OF SYSTEMS: CONSTITUTIONAL: No fever or chills HEENT: No changes in vision or voice CARDIOVASCULAR: As per HPI. RESPIRATORY: As per HPI GASTROINTESTINAL: No abdominal pain, no nausea no vomiting no constipation or diarrhea GENITOURINARY: no any urinary urgency, frequency or burning, and there has been no blood in her urine. no flank pain. MUSCULOSKELETAL: She notes full range of motion of all her joints without pain or swelling. NEUROLOGICAL: , no headache. no vision changes, or fainting. No numbness or tingling. Objective - Vital Signs Vital signs: Vital Signs Temp 98.7 F 08/18/18 14:43 Pulse 67 08/18/18 14:43 Resp 16 08/18/18 14:43 BP 110/74 08/18/18 14:43 Pulse Ox 96 08/18/18 14:43 Intake & Output 08/17/18 08/18/18 08/18/18 18:59 06:59 18:59 Weight 63.503 kg Other: # Voids 2 - Exam Vital Signs: I have reviewed the vital signs. GENERAL: Well-nourished, Well-developed , no apparent distress, cooperative Eyes: PERRL, extraoculry movements intact, clear conjunctiva Head: : Atraumatic external nose and ears, oropharyngeal mucosa is moist without lesions or exudates Neck: Symmetric, trachea midline, No thyromegaly, no masses or neck vain pulsation, no neck rigidity CVS: +S1/S2, No murmurs or gallops. Peripheral pulses 2+ and equal in all extremities. RESP: Unlabored respiratory effort. It sounds are diminished and he has bilateral inspiratory crackles up to the midlung palomo there is no any active wheezing. Abdomen: Bowel sounds present in all 4 quadrants, Soft to palpation, Nontender/ Nondistended, No hepatosplenomegaly, no hernias or masses, no CVA tnderness Exam his abdomen is soft nontender nondistended no rebound no guarding. He clearly has tenderness along the attachments of rectus abdominis muscle for the rib cage. That provokes the pain with palpation or respiratory movements. Musculoskeletal: Extremities w/o deformity, No cyanosis or clubbing, no joint swelling he does have trace to 1+ pitting edema Skin: Warm, Dry. No rashes or lesions Neuro: rabbler II-XII grossly intact, motor strenght 5/5 i upper and lower extremities, no clonus, patellar DTRs 2+ and sympetrical Psych: Awake, Alert, & Oriented (AAO) x3 Appropriate mood and affect - Labs CBC & Chem 7: 08/18/18 01:50 08/18/18 03:44 Labs: Abnormal Lab Results - Last 24 Hours (Table) 08/18/18 08/18/18 08/18/18 Range/Units 01:50 02:50 03:44 WBC 13.8 H (3.8-10.6) k/uL Hgb 12.1 L (13.0-17.5) gm/dL MCHC 30.7 L (31.0-37.0) g/dL RDW 16.5 H (11.5-15.5) % Neutrophils # 9.8 H (1.3-7.7) k/uL Sodium 136 L (137-145) mmol/L Potassium 5.7 H (3.5-5.1) mmol/L BUN 33 H (9-20) mg/dL Glucose 101 H (74-99) mg/dL Plasma Lactic Acid Rigoberto (0.7-2.0) mmol/L Amylase 127 H (30-110) U/L Urine Protein Trace H (Negative) 08/18/18 08/18/18 Range/Units 03:44 08:00 WBC (3.8-10.6) k/uL Hgb (13.0-17.5) gm/dL MCHC (31.0-37.0) g/dL RDW (11.5-15.5) % Neutrophils # (1.3-7.7) k/uL Sodium (137-145) mmol/L Potassium (3.5-5.1) mmol/L BUN (9-20) mg/dL Glucose (74-99) mg/dL Plasma Lactic Acid Rigoberto 2.5 H* 2.1 H* (0.7-2.0) mmol/L Amylase (30-110) U/L Urine Protein (Negative) Assessment and Plan Assessment: 1. Acute on chronic systolic CHF exacerbation Likely due to increased fluid intake and questionable adherence to medical therapy Patient gets excessive thirst likely related to his CHF he's been drinking excessively fluid He has a evidence of pulmonary vascular congestion and peripheral edema. Lactic acidosis could be related to low flow state to hypoperfusion Continue with diuresis as patient been improving Regarding his shortness of breath cough some malaise and body aches and URI- like symptoms that he reported we will also check influenza Patient has hyperkalemia and admission and we will repeat BMP stat. Skyla due to hyperkalemia he is not currently candidate for carina are or spironolactone Monitor strict I's and O's daily weights electrolytes and creatinine 2. Abdominal pain His physical exam is nonfocal and nonacute abdomen is soft and nontender His pain is coming from attachments of rectus abdominis to the rib cage and is likely related to inflammation and strain of this attachments due to coughing Continue with pain control 3. Mild lactic acidosis Likely related to CHF and possibly underlying hypoxia Continue with diuresis proving and optimizing cardiopulmonary status 4. Schizophrenia Patient is stable without active hallucinations and quite cooperative 5. Large AAA with significant occlusion from atherosclerotic sclerotic plaque Rule out possible chronic and intermittent mesenteric ischemia We'll consult vascular surgery expected to stay morning 2 midnights. Time with Patient: Greater than 30
[2018-08-18] MEDS ORDERED: ALBUTEROL NEBULIZED 2.5 MG/3 ML INHALATION PRN (18:03)
[2018-08-18 19:06] LABS: Calcium 8.6 mg/dL (8.4-10.2); Potassium 4.3 mmol/L (3.5-5.1)
--- NOTE | 2018-08-19 08:36 | P.PN ---
Subjective Summary: 68-year-old Patient recently diagnosed with systolic heart failure and EF of 20% and severe MR and history of schizophrenia was admitted here with shortness of breath and abdominal pain. Patient states that he's been having shortness of breath for few days and been significantly worsening last couple days. He reports leg swelling and orthopnea. He reports orthopnea and PND. He 's been feeling very thirsty and been drinking lots of fluid. He reported pain in the upper abdomen lower chest area along the attachments of the rectus abdominis. Initially he has potassium of 5.7 and lactic acid of 2.2. Imaging showed pulmonary vascular congestion and pleural effusions. CT of abdomen showed 4.1 cm AAA with 70% blockage from atherosclerotic block. Interval history: Patient was started on diuresis and his shortness of breath significantly improved and lactic acid normalized. His abdominal pain thought to be a strain of rectus abdominis muscle attachments to the ribs from coughing and that also has improved quite significantly today. he reports feeling significantly better he is able to get up and walk around without significant shortness of breath and leg edema is much better. Does have mild elevation of creatinine BUNs and serum bicarb but he's been maintaining quite a good urine output with diuresis. Follow up lactic acid: 1.1 and K now normal. REVIEW OF SYSTEMS: CONSTITUTIONAL: No fever or chills HEENT: No changes in vision or voice CARDIOVASCULAR: As per HPI. RESPIRATORY: As per HPI GASTROINTESTINAL: No abdominal pain, no nausea no vomiting no constipation or diarrhea GENITOURINARY: no any urinary urgency, frequency or burning, and there has been no blood in her urine. no flank pain. MUSCULOSKELETAL: She notes full range of motion of all her joints without pain or swelling. NEUROLOGICAL: , no headache. no vision changes, or fainting. No numbness or tingling. Objective - Vital Signs Vital signs: Vital Signs Temp 97.9 F 08/18/18 23:00 Pulse 66 08/18/18 23:00 Resp 18 08/19/18 00:30 BP 99/59 08/18/18 23:00 Pulse Ox 93 L 08/18/18 23:00 Intake & Output 08/18/18 08/19/18 08/19/18 18:59 06:59 18:59 Intake Total 1560 Output Total 1275 Balance 285 Weight 63.503 kg Intake: Intake, IV Titration 960 Amount Sodium Chloride 0.9% 1, 960 000 ml @ 100 mls/hr IV . Q10H RADHA Rx#:[id number] Oral 600 Output: Urine 1275 Other: # Voids 2 5 - Exam Vital Signs: I have reviewed the vital signs. GENERAL: Well-nourished, Well-developed , no apparent distress, cooperative Eyes: PERRL, extraoculry movements intact, clear conjunctiva Head: : Atraumatic external nose and ears, oropharyngeal mucosa is moist without lesions or exudates Neck: Symmetric, trachea midline, No thyromegaly, no masses or neck vain pulsation, no neck rigidity CVS: +S1/S2, No murmurs or gallops. Peripheral pulses 2+ and equal in all extremities. RESP: Unlabored respiratory effort. It sounds are diminished and he has bilateral inspiratory crackles up to the midlung palomo there is no any active wheezing. Abdomen: Bowel sounds present in all 4 quadrants, Soft to palpation, Nontender/ Nondistended, No hepatosplenomegaly, no hernias or masses, no CVA tnderness Exam his abdomen is soft nontender nondistended no rebound no guarding. He clearly has tenderness along the attachments of rectus abdominis muscle for the rib cage which is today much improved and minimal. Musculoskeletal: Extremities w/o deformity, No cyanosis or clubbing, no joint swelling he does have trace to 1+ pitting edema Skin: Warm, Dry. No rashes or lesions Neuro: manager line II-XII grossly intact, motor strenght 5/5 i upper and lower extremities, no clonus, patellar DTRs 2+ and sympetrical Psych: Awake, Alert, & Oriented (AAO) x3 Appropriate mood and affect - Labs CBC & Chem 7: 08/18/18 01:50 08/19/18 08:26 Labs: Abnormal Lab Results - Last 24 Hours (Table) 08/18/18 08/18/18 Range/Units 08:00 18:11 BUN 32 H (9-20) mg/dL Plasma Lactic Acid Rigoberto 2.1 H* (0.7-2.0) mmol/L Assessment and Plan Assessment: 1. Acute on chronic systolic CHF exacerbation Likely due to increased fluid intake and questionable adherence to medical therapy Patient gets excessive thirst likely related to his CHF he's been drinking excessively fluid He has a evidence of pulmonary vascular congestion and peripheral edema. Lactic acidosis could be related to low flow state and hypoxia With severe MR he is very sensitive to fluctuations in the volume status Today exibits better volume status and resolution of SOB. Due to rise of creatinine and serum bicarbonate with softer blood pressures We will decrease his diuretics to once a day starting today. 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 Abdominal pain His physical exam is nonfocal and nonacute abdomen is soft and nontender His pain is coming from attachments of rectus abdominis to the rib cage and is likely related to inflammation and strain of this attachments due to coughing Continue with pain control 3. Mild lactic acidosis Likely related to CHF and possibly underlying hypoxia and low flow state from MR low EF Lactic acidosis has resolved 4. Schizophrenia Patient is stable without active hallucinations and quite cooperative 5. Large AAA with significant occlusion from atherosclerotic sclerotic plaque Rule out possible chronic and intermittent mesenteric ischemia We'll consult vascular surgery expected to stay more than 2 midnights.
[2018-08-19 08:52] LABS: Calcium 9.1 mg/dL (8.4-10.2); Magnesium 2.1 mg/dL (1.6-2.3); Potassium 3.6 mmol/L (3.5-5.1)
[2018-08-19] MEDS: FUROSEMIDE 10 MG/ML 4 ML VIAL IV SCH (10:00)
--- NOTE | 2018-08-19 10:48 | CONS ---
CONSULTATION This is a 68-year-old gentleman who has been admitted to [facility] with multiple medical problems. History of coronary artery disease post CABG, history of congestive heart failure, history of AICD, history of dementia. The patient has been admitted for workup and had a CT scan of the abdomen. Found to have a infrarenal abdominal aortic aneurysm 4.3 cm. No history of claudication or rest pain or any back pain. PHYSICAL EXAMINATION: On examination, patient was seen in his room, lying comfortably in bed. NECK: Supple. Trachea central. First and second sounds present. ABDOMEN: Soft. Patient has a pulsatile mass. Nontender. Femorals are 1+ bilateral. At this point, patient has asymptomatic infrarenal abdominal aortic aneurysm with some atherosclerosis disease. The patient needs a close followup when he goes home. We will follow in my office in 2 weeks. At this point, no role of surgical intervention. We will follow with you. MMODL / IJN: [id number] /
[2018-08-19 13:20] VITALS: BMI 21.2
[2018-08-19] MEDS ORDERED: BUMETANIDE 0.25 MG/ML 4 ML VIAL IVP STA (16:14)
[2018-08-19] MEDS: METOPROLOL TARTRATE 12.5 MG TAB PO SCH (20:58)
[2018-08-19] MEDS: LORazepam 2 MG/ML INJ IV PRN (20:58)
[2018-08-19] MEDS ORDERED: ATORVASTATIN 20 MG TAB PO SCH (21:00)
[2018-08-19 23:57] VITALS: RESP 16
--- NOTE | 2018-08-20 07:08 | XR ---
EXAMINATION TYPE: XR chest 2V DATE OF EXAM: 08/20/2018 HISTORY: congestion. REFERENCE: Previous study dated 06/29/2018. FINDINGS: There is a bipolar pacemaker in place on the right. There is been a previous midline sterno bety. Lung volumes are prominent. The lungs appear clear. Pleural spaces are clear. The heart is not enlarg ed. IMPRESSION: COPD
[2018-08-20] MEDS ORDERED: CLOPIDOGREL 75 MG TAB PO SCH (09:00)
[2018-08-20] MEDS ORDERED: BUMETANIDE 0.25 MG/ML 4 ML VIAL IVP SCH (09:00)
[2018-08-20] MEDS ORDERED: LISINOPRIL 5 MG TAB PO SCH (09:00)
[2018-08-20] MEDS: METOPROLOL TARTRATE 12.5 MG TAB PO SCH (09:43)
[2018-08-20 10:57] LABS: Calcium 9.2 mg/dL (8.4-10.2); Magnesium 1.8 mg/dL (1.6-2.3); Potassium 3.8 mmol/L (3.5-5.1)
--- NOTE | 2018-08-20 12:23 | P.PN ---
Subjective Progress Note Date: 08/20/18 Principal diagnosis: SOB Patient is feeling much better, was walking through the hallways without significant problems. No shortness of breath or chest pain. No abdominal pain , nausea or vomiting. Objective - Vital Signs Vital signs: Vital Signs Temp 98.3 F 08/20/18 07:00 Pulse 70 08/20/18 08:00 Resp 16 08/20/18 08:00 BP 138/81 08/20/18 07:00 Pulse Ox 100 08/20/18 07:00 Intake & Output 08/19/18 08/20/18 08/20/18 18:59 06:59 18:59 Intake Total 400 Output Total 2400 500 Balance -1999 -500 Weight 63.503 kg 63.503 kg Intake: Oral 400 Output: Urine 2400 500 Other: Voiding Method Urinal # Voids 5 # Bowel Movements 1 - Exam Constitutional: No acute distress, conversant, pleasant Eyes:Anicteric sclerae, moist conjunctiva, no lid-lag, PERRLA, ENMT: Oropharynx clear, no erythema, exudates Neck: Supple, FROM, no masses, or JVD, No carotid bruits, No thyromegaly Lungs: Clear to auscultation, Clear to percussion, Normal respiratory effort, no accessory muscle use Cardiovascular: Heart regular in rate and rhythm, No murmurs, gallops, or rubs, No peripheral edema Abdominal: Soft, Nontender, no guarding, rebound or rigidity, Normoactive bowel sounds, No hepatomegaly, No splenomegaly, No palpable mass Skin: Normal temperature, tone, texture, turgor, no induration, No subcutaneous nodules, No rash, lesions, No ulcers Extremities: No digital cyanosis, No clubbing, Pedal pulses intact and symmetrical, Radial pulses intact and symmetrical, No calf tenderness Psychiatric: Alert and oriented to person, place and time, appropriate affect, intact judgement Neuro: Muscles Strength 5/5 in all 4 extremities, Sensation to light touch grossly present throughout, Cranial nerves II-XII grossly intact, no focal sensory deficits - Labs CBC & Chem 7: 08/18/18 01:50 08/20/18 09:56 Labs: Abnormal Lab Results - Last 24 Hours (Table) 08/20/18 Range/Units 09:56 Carbon Dioxide 32 H (22-30) mmol/L BUN 27 H (9-20) mg/dL Glucose 122 H (74-99) mg/dL Assessment and Plan Plan: 1. Acute on chronic systolic CHF exacerbation, with lactic acidosis Likely due to increased fluid intake and non-adherence to meds Last echo in showed ejection fraction of 20-25% with [id number] MR Lactic acidosis could be related to low flow state and hypoxia--resolved Switch bumex to po strict Is and Os Daily weight Monitor Electrolytes and creatinine Start lisinopril and metoprolol, cardio following Awaiting follow up echo 2. Abdominal pain, likely musculoskeletal Resolved Continue with pain control as needed 3. Schizophrenia Patient is stable without active hallucinations and quite cooperative Awaiting guardianship paperwork, patient just moved to [place] from [place] of state about 5 months ago. I discussed that with her sister. 5. AAA with significant occlusion from atherosclerotic sclerotic plaque CT abdomen reviewed, seen by vascular surgery, need to follow-up with an outpatient in the office. Rule out possible chronic and intermittent mesenteric ischemia 6. DVT prophylaxis Ambulatory, low risk
[2018-08-20 13:37] VITALS: BP 142/77; PULSE 99; TEMP 97.5
[2018-08-20] MEDS: LORazepam 2 MG/ML INJ IV PRN (14:23)
--- NOTE | 2018-08-20 16:44 | P.DS ---
Providers Date of admission: 08/18/18 05:14 Expected date of discharge: 08/20/18 Attending physician: Princess Mojica MD Consults: 08/18/18 17:13 Consult Physician Routine Consulting Provider: Deniz Telles Consult Reason/Comments: AAA Do you want consulting provider notified?: Yes, Notify in am 08/19/18 08:38 Consult Physician Routine Consulting Provider: Richard Sanders Consult Reason/Comments: CHF exacerbation Do you want consulting provider notified?: Yes Primary care physician: Physician Nonstaff Hospital Course: 68 yo M with a PMH of CAD s/p CABG, CHF s/p AICD, Dementia, active smoker 2 PPD (40 years) seizure disorder, and schizophrenia presented to the ED due to worsening SOB and epigastric discomfort on-going for 4 days. The history was difficult to obtain since patient wasn't able to provide a succinct history and would change his statements. He endorsed that recently he had been non- compliant with his meds and had developed worsening SOB w/ 4 pillow orthopnea, PND, and epigastric discomfort. He also endorsed dizziness, wheezing, and feeling unsteady but denied fever, chills, nausea, vomiting, diarrhea, constipation, headache, or dysuria. In the ED, the patient underwent a comprehensive w/u with Lactate 2.5, K 5.7, BUN 33, Cr 1.23, WBC was 13.8, troponin was negative, and proBNP was 3100. CT abd/pelvis w/ contrast revealed Pulmonary edema consistent w/ CHF. He was diagnosed with acute exacerbation of CHF, last echocardiogram was done about 3 months ago that showed EF of 20-25%. Echocardiogram and cardiology consult were ordered. Computed tomography scan of the abdomen also showed Large AAA with significant chronic occlusion from atherosclerotic plaque, patient could possibly have chronic and intermittent mesenteric ischemia due to that, vascular surgery was consulted. After recommended outpatient follow-up. Lactic acidosis resolved throughout the hospitalization. Symptomatically patient was feeling much better today. Today patient wanted to go home, he was told that he needed to have the echocardiogram and wait for cardiology to see him but he refused. Of note patient is currently being petitioned for guardianship. Friends that are petitioning for guardianship came up to see Magaly Nuno. They have a court date set for 1/9/18 to petition for his guardianship. they were yelling in the hallway saying they want him to stay and they won't let him back home until the crushing machine operator sees hims. pt is his own POA. States he wants to leave now. He does not want to wait to get an echo. His sister Yodit was called to inform her of this situation. pt states he will stay with his cousin. informed of the risk of signing out AMA , worsening or symptoms, stroke, heart attack, infection, permanent disability. He eventually signed out acute medical advise. Plan - Discharge Summary Discharge Rx Participant: No New Discharge Prescriptions: No Action Levothyroxine Sodium [Synthroid] 75 mcg PO DAILY Aspirin 81 mg PO DAILY Metoprolol Tartrate [Lopressor] 12.5 mg PO BID Escitalopram [Lexapro] 20 mg PO DAILY Divalproex [Depakote] 500 mg PO BID Ramipril [Altace] 1.25 mg PO DAILY Torsemide [Demadex] 5 mg PO DAILY Simvastatin [Zocor] 20 mg PO DAILY Omeprazole 40 mg PO DAILY Donepezil [Aricept] 10 mg PO DAILY Dexlansoprazole [Dexilant] 60 mg PO DAILY Clopidogrel [Plavix] 75 mg PO DAILY Discharge Medication List Aspirin 81 mg PO DAILY 08/18/18 [History] Clopidogrel [Plavix] 75 mg PO DAILY 08/18/18 [History] Dexlansoprazole [Dexilant] 60 mg PO DAILY 08/18/18 [History] Divalproex [Depakote] 500 mg PO BID 08/18/18 [History] Donepezil [Aricept] 10 mg PO DAILY 08/18/18 [History] Escitalopram [Lexapro] 20 mg PO DAILY 08/18/18 [History] Levothyroxine Sodium [Synthroid] 75 mcg PO DAILY 08/18/18 [History] Metoprolol Tartrate [Lopressor] 12.5 mg PO BID 08/18/18 [History] Omeprazole 40 mg PO DAILY 08/18/18 [History] Ramipril [Altace] 1.25 mg PO DAILY 08/18/18 [History] Simvastatin [Zocor] 20 mg PO DAILY 08/18/18 [History] Torsemide [Demadex] 5 mg PO DAILY 08/18/18 [History] Follow up Appointment(s)/Referral(s): Raffaele Verdin MD [STAFF PHYSICIAN] - 1-2 days Discharge Disposition: Left Against Medical Advice
--- NOTE | 2018-08-21 11:02 | CONS ---
CONSULTATION Mr. Morales is a 68-year-old gentleman who is seen for cardiac evaluation. The patient is a rather unreliable historian. The patient's medical records reviewed. History was obtained from the emergency room notes as well as the patient. The patient has a known history of CAD, prior history of coronary artery bypass surgery, history of AICD placement. The patient smokes about 2 packs per day. The patient was admitted with the symptoms of worsening shortness of breath. The patient denies any significant cough with expectoration. Denies any orthopnea, PND. Denies any fever or chills. The patient gives a history that he is not taking his medications regularly and he might have missed a dose of his Lasix. In the emergency room the patient had a CT scan which was suggestive of congestive heart failure. The patient had a mildly elevated lactic acid. PAST MEDICAL HISTORY: Includes a history of coronary artery bypass surgery, congestive heart failure, history of schizophrenia and history of AICD placement. HOME MEDICATIONS: Home medications include Aricept, Ventolin, Lipitor, Namenda, Seroquel, Effexor. PHYSICAL EXAMINATION: At present reveals a 68-year-old gentleman who does not appear to be in any acute distress. The patient's blood pressure is 120/80 mmHg. HEENT and neck exam is unremarkable. Chest is symmetrical. Heart, the PMI is not felt. First and second heart sounds are normal. Lungs reveal bilateral basal rales. Abdomen is soft. Extremities: There is no evidence of any significant leg edema. Patient's BUN is 33, plasma lactic acid was 2.5. The patient's proBNP level was 1150. The patient's plain x-ray showed evidence of COPD. IMPRESSION: 1. Shortness of breath, probably combination secondary to acute congestive cardiac failure and chronic obstructive pulmonary disease. 2. History of coronary artery disease with a prior history of coronary artery bypass surgery as well as AICD placement. RECOMMENDATIONS: We will recommend to continue the patient on IV Lasix for next 24 hours and subsequently can be switched to the p.o. Lasix. Echo and Doppler study will be obtained. MMODL / IJN: [id number] /
== END 2018-08-20 15:55 | disposition left against medical advice (07) ==
LOC: EC 01:40 → INTOOBSV 05:14 → 4SSUR 05:14
PROVIDERS: ADMIT Internal Medicine; ATTEND Internal Medicine
DX: I50.23 Acute on chronic systolic (congestive) heart failure (principal); E87.2 Acidosis; N17.9 Acute kidney failure, unspecified; J44.9 Chronic obstructive pulmonary disease, unspecified; I71.4 Abdominal aortic aneurysm, without rupture; I70.0 Atherosclerosis of aorta; E87.5 Hyperkalemia; E86.0 Dehydration; K57.30 Diverticulosis of large intestine without perforation or abscess without bleeding; D72.829 Elevated white blood cell count, unspecified; R63.1 Polydipsia; N40.0 Benign prostatic hyperplasia without lower urinary tract symptoms; I25.10 Atherosclerotic heart disease of native coronary artery without angina pectoris; Z91.14 Patient's other noncompliance with medication regimen; G40.909 Epilepsy, unspecified, not intractable, without status epilepticus; F25.9 Schizoaffective disorder, unspecified; F17.210 Nicotine dependence, cigarettes, uncomplicated; F03.90 Unspecified dementia, unspecified severity, without behavioral disturbance, psychotic disturbance, mood disturbance, and anxiety; R10.13 Epigastric pain; R42 Dizziness and giddiness; Z79.890 Hormone replacement therapy; Z79.899 Other long term (current) drug therapy; Z88.0 Allergy status to penicillin; Z88.5 Allergy status to narcotic agent; Z88.7 Allergy status to serum and vaccine; Z95.810 Presence of automatic (implantable) cardiac defibrillator; Z95.1 Presence of aortocoronary bypass graft
CPT/HCPCS: 96376 ×3; 96365; 96375 ×2; 96361; 99285; 36415; 93005; 83880; 80053; 80048 ×3; 82150; 82550; 82553; 83605; 83690; 83735 ×2; 84484; 85025; 81003; 87502; 71046; 74018; 74177; G0378 ×3; J2060 ×3; J1940; J0610; Q9967

== ENCOUNTER 2018-09-08 15:39 | Observation (INO) | payer MEDICARE, OTHER ==
--- NOTE | 2018-09-08 16:08 | ED ---
General Adult HPI - General Chief complaint: Psychiatric Symptoms Stated complaint: Mental health Time Seen by Provider: 09/08/18 15:55 Source: patient, RN notes reviewed, Caregiver Mode of arrival: ambulatory Limitations: no limitations - History of Present Illness Initial comments: Patient is a pleasant 68-year-old male presenting to the emergency Department with reported agitation. History is taken from both the caregiver and the patient. Caregiver states that patient had recent medication changes around 1 week ago. Since that time he has been wanting to stay up late and smoke marijuana and drink caffeine and a bad food. She states he has been more agitated and confrontational. She feels he could benefit from medication changes or possible psychiatric admission. Patient states he feels fine and has no complaints. does admit that he feels like he needs to calm down a little bit. Patient denies any suicidal or homicidal thoughts. Patient denies "smoking pot" in the past 2 weeks. Patient denies hallucinations. Patient denies physical complaints. Patient states he just trying to be left alone and visit with his friends however is caregiver will not let him be. - Related Data Home Medications Medication Instructions Recorded Confirmed Clopidogrel [Plavix] 75 mg PO DAILY 08/18/18 09/08/18 Dexlansoprazole [Dexilant] 60 mg PO DAILY 08/18/18 09/08/18 Divalproex [Depakote] 500 mg PO BID 08/18/18 09/08/18 Donepezil [Aricept] 10 mg PO DAILY 08/18/18 09/08/18 Escitalopram [Lexapro] 20 mg PO DAILY 08/18/18 09/08/18 Levothyroxine Sodium [Synthroid] 75 mcg PO DAILY 08/18/18 09/08/18 Omeprazole 40 mg PO DAILY 08/18/18 09/08/18 Ramipril [Altace] 1.25 mg PO DAILY 08/18/18 09/08/18 Simvastatin [Zocor] 20 mg PO DAILY 08/18/18 09/08/18 Torsemide [Demadex] 5 mg PO DAILY 08/18/18 09/08/18 Aspirin EC [Ecotrin Low Dose] 81 mg PO DAILY 09/08/18 09/08/18 Metoprolol Tartrate [Lopressor] 12.5 mg PO BID 09/08/18 09/08/18 Venlafaxine HCl [Effexor XR] 75 mg PO DAILY 09/08/18 09/08/18 Zolpidem [Ambien] 10 mg PO HS 09/08/18 09/08/18 hydrOXYzine HCL [Atarax] 25 mg PO TID 09/08/18 09/08/18 Allergies Allergy/AdvReac Type Severity Reaction Status Date / Time morphine Allergy Anaphylaxis Verified 09/08/18 17:27 Penicillins Allergy Unknown Verified 09/08/18 17:27 Influenza Virus Vaccines AdvReac Unknown Verified 09/08/18 17:27 pneumococcal vaccine AdvReac Unknown Verified 09/08/18 17:27 Review of Systems ROS Statement: Those systems with pertinent positive or pertinent negative responses have been documented in the HPI. ROS Other: All systems not noted in ROS Statement are negative. Constitutional: Denies: fever Eyes: Denies: eye pain ENT: Denies: ear pain Respiratory: Denies: cough Cardiovascular: Denies: chest pain Endocrine: Denies: fatigue Gastrointestinal: Denies: abdominal pain Genitourinary: Denies: dysuria Musculoskeletal: Denies: back pain Skin: Denies: rash Neurological: Denies: headache, weakness Psychiatric: Denies: depression, homicidal thoughts, suicidal thoughts Past Medical History Past Medical History: Coronary Artery Disease (CAD), Heart Failure, Dementia, Hyperlipidemia, Hypertension, Seizure Disorder, Thyroid Disorder Additional Past Medical History / Comment(s): Ischemic cardiomyopathy, EF 20-25% , last seizure about 2 yrs ago, hypothyroid. History of Any Multi-Drug Resistant Organisms: None Reported Past Surgical History: AICD, Coronary Bypass/CABG, Heart Catheterization Additional Past Surgical History / Comment(s): 1995 CABG 4 vessel in [facility], colonoscopy Past Anesthesia/Blood Transfusion Reactions: No Reported Reaction Type of Cardiac Device: AICD Device Placement Date:: ? 1995 in [facility] Past Psychological History: Schizoaffective Disorder, Schizophrenia Smoking Status: Current every day smoker Past Alcohol Use History: Occasional Past Drug Use History: Marijuana - Past Family History Mother Family Medical History: Respiratory Disorder Additional Family Medical History / Comment(s): Mother had TB Father Additional Family Medical History / Comment(s): Father was an alcoholic. General Exam Limitations: no limitations General appearance: alert, in no apparent distress Head exam: Present: atraumatic, normocephalic Eye exam: Present: normal appearance, PERRL ENT exam: Present: normal oropharynx Neck exam: Present: normal inspection Respiratory exam: Present: normal lung sounds bilaterally Cardiovascular Exam: Present: regular rate, normal rhythm GI/Abdominal exam: Present: soft. Absent: tenderness Extremities exam: Present: normal inspection Neurological exam: Present: alert Psychiatric exam: Present: normal affect, normal mood Skin exam: Present: normal color Course Vital Signs 09/08/18 15:45 Temperature 98 F Pulse Rate 99 Respiratory 16 Rate Blood Pressure 130/85 O2 Sat by Pulse 99 Oximetry EKG Findings - EKG Comments: EKG Findings:: Sinus rhythm at 79. Short GA of 106. QRS 114. QT 408. QTC 467. Normal axis. Inferior Q waves with T wave inversion. No acute ST change. Medical Decision Making - Medical Decision Making Patient was seen by mental health services who would prefer medical admission with psychiatric consult. They do feel patient would benefit from psychiatric evaluation and possible medication change. Patient's guardian has left and states they're done with him. Patient apparently will need a new guardian. Case discussed in detail with Dr. Verdin, who will admit his patient. - Lab Data Result diagrams: 09/08/18 16:21 09/08/18 16:21 Lab Results 09/08/18 09/08/18 09/08/18 Range/Units 16:21 16:21 18:00 WBC 7.7 (3.8-10.6) k/uL RBC 5.01 (4.30-5.90) m/uL Hgb 14.4 (13.0-17.5) gm/dL Hct 45.0 (39.0-53.0) % MCV 89.9 (80.0-100.0) fL MCH 28.8 (25.0-35.0) pg MCHC 32.0 (31.0-37.0) g/dL RDW 16.0 H (11.5-15.5) % Plt Count 183 (150-450) k/uL Neutrophils % 64 % Lymphocytes % 22 % Monocytes % 8 % Eosinophils % 2 % Basophils % 0 % Neutrophils # 5.0 (1.3-7.7) k/uL Lymphocytes # 1.7 (1.0-4.8) k/uL Monocytes # 0.6 (0-1.0) k/uL Eosinophils # 0.1 (0-0.7) k/uL Basophils # 0.0 (0-0.2) k/uL Anisocytosis Slight Sodium 143 (137-145) mmol/L Potassium 4.6 (3.5-5.1) mmol/L Chloride 101 (98-107) mmol/L Carbon Dioxide 29 (22-30) mmol/L Anion Gap 13 mmol/L BUN 40 H (9-20) mg/dL Creatinine 1.55 H (0.66-1.25) mg/dL Est GFR (CKD-EPI)AfAm 53 (>60 ml/min/1.73 sqM) Est GFR (CKD-EPI)NonAf 46 (>60 ml/min/1.73 sqM) Glucose 134 H (74-99) mg/dL Calcium 10.1 (8.4-10.2) mg/dL Urine Color Yellow Urine Appearance Clear (Clear) Urine pH 5.5 (5.0-8.0) Ur Specific [place] 1.021 (1.001-1.035) Urine Protein Negative (Negative) Urine Glucose (UA) Negative (Negative) Urine Ketones Negative (Negative) Urine Blood Negative (Negative) Urine Nitrite Negative (Negative) Urine Bilirubin Negative (Negative) Urine Urobilinogen <2.0 (<2.0) mg/dL Ur Leukocyte Esterase Negative (Negative) Urine Opiates Screen Not Detected (NotDetected) Ur Oxycodone Screen Not Detected (NotDetected) Urine Methadone Screen Not Detected (NotDetected) Ur Propoxyphene Screen Not Detected (NotDetected) Ur Barbiturates Screen Not Detected (NotDetected) U Tricyclic Antidepress Not Detected (NotDetected) Ur Phencyclidine Scrn Not Detected (NotDetected) Ur Amphetamines Screen Not Detected (NotDetected) U Methamphetamines Scrn Not Detected (NotDetected) U Benzodiazepines Scrn Not Detected (NotDetected) Urine Cocaine Screen Not Detected (NotDetected) U Marijuana (THC) Screen Detected H (NotDetected) Serum Alcohol <10 mg/dL Disposition Clinical Impression: Renal insufficiency, Bipolar disorder Disposition: ADMITTED IP TO THIS HOSP Is patient prescribed a controlled substance at d/c from ED?: No Referrals: Raffaele Verdin MD [Primary Care Provider] - 1-2 days Decision Time: 19:18
[2018-09-08 16:36] LABS: Anisocytosis Slight; Basophils % (A) 0 %; Eosinophils # (A) 0.1 k/uL (0-0.7); Eosinophils % (A) 2 %; HGB 14.4 gm/dL (13.0-17.5); Lymphocytes # (A) 1.7 k/uL (1.0-4.8); Lymphocytes % (A) 22 %; MCH 28.8 pg (25.0-35.0); MCV 89.9 fL (80.0-100.0); Mean Platelet Volume 7.5; Monocytes # (A) 0.6 k/uL (0-1.0); Monocytes % (A) 8 %; Neutrophils % (A) 64 %; Platelet Count 183 k/uL (150-450); RBC 5.01 m/uL (4.30-5.90); WBC 7.7 k/uL (3.8-10.6)
[2018-09-08 16:46] LABS: Alcohol <10 mg/dL; Anion Gap 13 mmol/L; Blood Urea Nitrogen 40 mg/dL (9-20); Calcium 10.1 mg/dL (8.4-10.2); Carbon Dioxide 29 mmol/L (22-30); Chloride 101 mmol/L (98-107); Glucose 134 mg/dL (74-99); Potassium 4.6 mmol/L (3.5-5.1); Sodium 143 mmol/L (137-145)
[2018-09-08] MEDS ORDERED: SODIUM CHLORIDE 0.9% 1,000 ML IV STA ×2 (17:10)
[2018-09-08 18:15] LABS: Appearance,Urine Clear (Clear); Bilirubin,Urine Negative (Negative); Blood,Urine Negative (Negative); Color,Urine Yellow; Glucose,Urine (UA) Negative (Negative); Ketones,Urine Negative (Negative); Leukocyte Esterase,Urine Negative (Negative); Nitrite,Urine Negative (Negative); PH, Urine 5.5 (5.0-8.0); Protein,Urine Negative (Negative); Specific Gravity,Urine 1.021 (1.001-1.035); Urobilinogen,Urine <2.0 mg/dL (<2.0)
[2018-09-08 18:28] LABS: Amphetamine Screen,Urine Not Detected (NotDetected); Barbiturate Screen,Urine Not Detected (NotDetected); Benzodiazepines Screen,Urine Not Detected (NotDetected); Cocaine Screen,Urine Not Detected (NotDetected); Methadone Screen, Urine Not Detected (NotDetected); Opiate Screen,Urine Not Detected (NotDetected); Oxycodone Screen, Urine Not Detected (NotDetected); Phencyclidine Screen,Urine Not Detected (NotDetected); Tricyclic Antidepressant,Urine Not Detected (NotDetected); Urn Cannabinoid Scrn Detected (NotDetected)
[2018-09-08] MEDS ORDERED: LORazepam 2 MG/ML INJ IV PRN (19:19)
[2018-09-08] MEDS ORDERED: ALPRAZolam 0.25 MG TAB PO PRN (19:19)
[2018-09-08] MEDS ORDERED: NALOXONE 0.4 MG/ML 1 ML VIAL IV PRN (19:19)
[2018-09-08] MEDS: SODIUM CHLORIDE 0.9% 1,000 ML IV SCH (19:49)
[2018-09-08 21:20] VITALS: BMI 21.6
[2018-09-09] MEDS: SODIUM CHLORIDE 0.9% 1,000 ML IV SCH (01:22)
[2018-09-09 07:48] LABS: Calcium 8.1 mg/dL (8.4-10.2); Potassium 4.4 mmol/L (3.5-5.1)
--- NOTE | 2018-09-09 12:44 | HP ---
HISTORY AND PHYSICAL CHIEF COMPLAINT: A 68-year-old white male presenting with agitation per caregiver came to the emergency room. He is apparently able known to stay up late, smoke marijuana and drink caffeine, have bad food, more agitated and confrontational, possible medication changes, psychiatric admission admitted to the medical floor. Consult to psychiatrist. Patient states he is just trying to be left alone and visit with his friends, however, caregiver would not let him be. HOME MEDICATIONS: 1. Plavix 75 mg daily. 2. Dexilant 60 mg daily. 3. Depakote 500 mg b.i.d. 4. Aricept 10 mg daily. 5. Lexapro 20 daily. 6. Synthroid 75 daily. 7. Omeprazole 40 mg daily. 8. Altace 1.25 mg daily. 9. Zocor 20 mg daily. 10.Demadex 5 mg daily. 11.Aspirin 81 mg daily. 12.Lopressor 12.5 mg b.i.d. 13.Effexor XR 75 mg daily. 14.Ambien 10 q.h.s.. 15.Atarax 25 t.i.d. ALLERGIES: MORPHINE, PENICILLIN, INFLUENZA, PNEUMOCOCCAL. REVIEW OF SYSTEMS: Fourteen-point review of systems except for mentioned in HPI is negative. PAST MEDICAL HISTORY: Coronary artery disease, heart failure, dementia, dyslipidemia, hypertension, seizure disorder, thyroid disorder, ischemic cardiomyopathy, ejection fraction 20% to 25%, last seizure 2 years ago, hypothyroid. PAST SURGICAL HISTORY: AICD, CABG, heart catheterization, had a CABG 4-vessel in 1995. Schizoaffective disorder, schizophrenic. Current everyday smoker, marijuana. FAMILY HISTORY: Mother with respiratory disorder. Mother had TB. Father was an alcoholic. PHYSICAL EXAMINATION: Vital signs are stable, afebrile. CARDIOVASCULAR: S1, S2. LUNGS: Transmitted upper airway sounds. HEMATOLOGY: Negative Homans. PSYCH: Fair mood and affect. GI: Soft. INTEGUMENT: No skin rashes, excoriation, bruising. OPHTHALMOLOGIC: Pupils equal, round, reactive to light and accommodation. Temperature 98, pulse 99, respirations 16 to 18, blood pressure 130s to 140s over 70s to 80s and O2 of 99% on room air. BUN is 40, creatinine 1.55. White count 7.7, hemoglobin 14.4. EKG sinus rhythm. UA is positive for marijuana. ASSESSMENT: 1. Renal insufficiency, acute. 2. Coronary artery disease. 3. Bipolar disorder. 4. Seizure disorder. 5. Hypothyroidism. 6. Hypertension. 7. CABG surgery. Admit to the hospital. Consult Psychiatry. Please see further orders in the chart. MMODL / IJN: [id number] /
[2018-09-09] MEDS ORDERED: hydrOXYzine HCL 25 MG TAB ONE (20:00)
[2018-09-09] MEDS ORDERED: SODIUM CHLORIDE 0.9% 1,000 ML BAG ONE (20:00)
[2018-09-09] MEDS ORDERED: METOPROLOL TARTRATE 12.5 MG TAB ONE (20:00)
[2018-09-09] MEDS: METOPROLOL TARTRATE 12.5 MG TAB PO SCH (21:46)
[2018-09-09] MEDS: ZOLPIDEM 10 MG TAB PO SCH (21:49)
[2018-09-09] MEDS: FAMOTIDINE 20 MG TAB PO SCH (21:49)
[2018-09-09] MEDS: DIVALPROEX 500 MG TABLET.DR PO SCH (22:57)
[2018-09-09] MEDS: hydrOXYzine HCL 25 MG TAB PO SCH (22:57)
[2018-09-09] MEDS: ARIPiprazole 2 MG TAB PO SCH (22:57)
[2018-09-10] MEDS: SODIUM CHLORIDE 0.9% 1,000 ML IV SCH ×3 (01:33→21:33)
[2018-09-10] MEDS: LEVOTHYROXINE 75 MCG TAB PO SCH (06:07)
[2018-09-10] MEDS: ATORVASTATIN 10 MG TAB PO SCH (07:19)
[2018-09-10] MEDS: CLOPIDOGREL 75 MG TAB PO SCH (07:19)
[2018-09-10] MEDS: ASPIRIN 81 MG PO SCH (07:19)
[2018-09-10] MEDS: FUROSEMIDE 10 MG TAB PO SCH (07:19)
[2018-09-10] MEDS: DIVALPROEX 500 MG TABLET.DR PO SCH ×2 (07:19→21:38)
[2018-09-10] MEDS: ESCITALOPRAM 20 MG TAB PO SCH (07:19)
[2018-09-10] MEDS: DONEPEZIL 10 MG TAB PO SCH (07:19)
[2018-09-10] MEDS: PANTOPRAZOLE 40 MG TABLET PO SCH (07:20)
[2018-09-10] MEDS: hydrOXYzine HCL 25 MG TAB PO SCH ×3 (07:20→21:37)
[2018-09-10] MEDS: VENLAFAXINE HCL ER 75 MG CAP PO SCH (07:20)
[2018-09-10] MEDS: LISINOPRIL 5 MG TAB PO SCH (07:21)
[2018-09-10] MEDS: METOPROLOL TARTRATE 12.5 MG TAB PO SCH ×2 (07:23→21:39)
[2018-09-10] MEDS: FAMOTIDINE 20 MG TAB PO SCH ×2 (07:24→21:39)
[2018-09-10 09:48] LABS: Anisocytosis Slight; Basophils % (A) 1 %; Eosinophils # (A) 0.2 k/uL (0-0.7); Eosinophils % (A) 5 %; HCT 35.2 % (39.0-53.0); Lymphocytes # (A) 1.8 k/uL (1.0-4.8); Lymphocytes % (A) 34 %; MCH 29.3 pg (25.0-35.0); MCV 91.5 fL (80.0-100.0); Mean Platelet Volume 7.5; Monocytes # (A) 0.4 k/uL (0-1.0); Monocytes % (A) 7 %; Neutrophils # (A) 2.7 k/uL (1.3-7.7); Neutrophils % (A) 50 %; Platelet Count 135 k/uL (150-450); RBC 3.84 m/uL (4.30-5.90); RDW 16.1 % (11.5-15.5); WBC 5.3 k/uL (3.8-10.6)
[2018-09-10 10:08] LABS: Calcium 8.4 mg/dL (8.4-10.2); Potassium 4.3 mmol/L (3.5-5.1)
[2018-09-10 10:10] LABS: HGB 11.2 gm/dL (13.0-17.5)
--- NOTE | 2018-09-10 11:44 | P.PN ---
Subjective Progress Note Date: 09/10/18 Interval history: 09/10/18- patient is being seen examined and evaluated today on rounds while covering for Dr. Raffaele Verdin. This patient initially came into the emergency room with his care provider. He recently had changes to his psychiatric medications and was noted to start to stay up late, smoke marijuana drink caffeine eat bad food become agitated and confrontational and his detention setting. His caretakers brought him to the emergency room for further evaluation and workup. Workup in the ER did show some slight renal insufficiency and he was admitted for further evaluation and treatment along with a psychiatric eval. Upon examination today the patient is resting up in bed on room air. Denies any shortness of breath occasionally has a cough with yellow sputum production denies any fevers or chills. Denies any recent ill contacts. He did have a urine drug screen that was positive for marijuana. According to the charting the patient's heel dipper did state that she was "done with him, and the patient is currently awaiting a new state appointed guardian at this time. He is afebrile no further complaints all labs and reports have been reviewed. Objective - Vital Signs Vital signs: Vital Signs Temp 97.6 F 09/10/18 05:00 Pulse 65 09/10/18 05:00 Resp 16 09/10/18 05:00 BP 112/58 09/10/18 05:00 Pulse Ox 96 09/10/18 05:00 Intake & Output 09/09/18 09/10/18 09/10/18 18:59 06:59 18:59 Intake Total 1250 Output Total 200 1325 200 Balance -200 -75 -200 Weight 64.41 kg Intake: Intake, IV Titration 650 Amount Sodium Chloride 0.9% 1, 650 000 ml @ 75 mls/hr IV . [id number] [facility] Rx#:[id number] Oral 600 Output: Urine 200 1325 200 Other: Voiding Method Urinal Urinal Urinal # Voids 1 1 - Exam GENERAL EXAM: Alert, active, comfortable in no apparent distress. HEAD: Normocephalic. EYES: Normal reaction of pupils, equal size. NOSE: Clear with pink turbinates. THROAT: No erythema or exudates. NECK: No masses, no JVD. CHEST: No chest wall deformity. LUNGS: Equal air entry with no crackles, wheeze, rhonchi or dullness. CVS: S1 and S2 normal with no audible mumurs, regular rhythm. ABDOMEN: No hepatosplenomegaly, normal bowel sounds, no guarding or rigidity. EXTREMITIES: No edema noted, pedal pulses palpable. CENTRAL NERVOUS SYSTEM: No focal deficits, tone is normal in all 4 extremities. - Labs CBC & Chem 7: 09/10/18 09:11 09/10/18 09:11 Labs: Abnormal Lab Results - Last 24 Hours (Table) 09/10/18 09/10/18 Range/Units 09:11 09:11 RBC 3.84 L (4.30-5.90) m/uL Hgb 11.2 L D (13.0-17.5) gm/dL Hct 35.2 L (39.0-53.0) % RDW 16.1 H (11.5-15.5) % Plt Count 135 L (150-450) k/uL Chloride 109 H (98-107) mmol/L Assessment and Plan Assessment: Assessment Acute renal insufficiency History of CAD History of bipolar disorder History of seizure disorder Hypothyroidism Hypertension History of CABG Surgery Plan Medications have been reviewed and will be continued as ordered. Psychiatry evaluation consult Social work for guardian heel dipper dynamics Continue with pulmonary hygiene, coughing and deep breathing exercises, and supportive care. Supplemental oxygen to maintain oxygen saturations of 92% or better if needed. GI and DVT prophylaxis. We will continue to monitor labs/results and adjust treatment as necessary. Further recommendations pending. I, the signing physician performed an examination of the patient, discussed and directed their management with the nurse practitioner. I have reviewed the nurse practitioner's note and agree with the documented findings, orders and plan of care. Nurse practitioner acting as a scribe for the signing physician. Please note we are covering for Dr. Raffaele Verdin today
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
[2018-09-10] MEDS: ARIPiprazole 2 MG TAB PO SCH (21:38)
[2018-09-10] MEDS: ZOLPIDEM 10 MG TAB PO SCH (21:39)
[2018-09-10] MEDS: HEPARIN SODIUM,PORCINE 5,000 UNIT/ML 1 ML VIAL SQ SCH (21:40)
[2018-09-11] MEDS: LEVOTHYROXINE 75 MCG TAB PO SCH (05:45)
[2018-09-11 08:01] LABS: Basophils % (A) 1 %; Eosinophils # (A) 0.2 k/uL (0-0.7); Eosinophils % (A) 4 %; HCT 37.1 % (39.0-53.0); HGB 11.7 gm/dL (13.0-17.5); Lymphocytes # (A) 2.4 k/uL (1.0-4.8); Lymphocytes % (A) 41 %; MCH 28.2 pg (25.0-35.0); MCHC 31.5 g/dL (31.0-37.0); MCV 89.4 fL (80.0-100.0); Mean Platelet Volume 7.5; Monocytes # (A) 0.4 k/uL (0-1.0); Monocytes % (A) 7 %; Neutrophils # (A) 2.5 k/uL (1.3-7.7); Neutrophils % (A) 44 %; Platelet Count 145 k/uL (150-450); RBC 4.15 m/uL (4.30-5.90); RDW 15.9 % (11.5-15.5); WBC 5.7 k/uL (3.8-10.6)
[2018-09-11 08:13] LABS: Calcium 8.4 mg/dL (8.4-10.2); Potassium 4.6 mmol/L (3.5-5.1); Total Bilirubin 0.4 mg/dL (0.2-1.3)
[2018-09-11] MEDS: VENLAFAXINE HCL ER 75 MG CAP PO SCH (08:57)
[2018-09-11] MEDS: ASPIRIN 81 MG PO SCH (08:57)
[2018-09-11] MEDS: PANTOPRAZOLE 40 MG TABLET PO SCH (08:57)
[2018-09-11] MEDS: ATORVASTATIN 10 MG TAB PO SCH (08:58)
[2018-09-11] MEDS: CLOPIDOGREL 75 MG TAB PO SCH (08:58)
[2018-09-11] MEDS: DIVALPROEX 500 MG TABLET.DR PO SCH ×2 (08:59→22:27)
[2018-09-11] MEDS: FUROSEMIDE 10 MG TAB PO SCH (09:00)
[2018-09-11] MEDS: ESCITALOPRAM 20 MG TAB PO SCH (09:00)
[2018-09-11] MEDS: FAMOTIDINE 20 MG TAB PO SCH (09:00)
[2018-09-11] MEDS: HEPARIN SODIUM,PORCINE 5,000 UNIT/ML 1 ML VIAL SQ SCH ×2 (09:00→22:27)
[2018-09-11] MEDS: DONEPEZIL 10 MG TAB PO SCH (09:00)
[2018-09-11] MEDS: hydrOXYzine HCL 25 MG TAB PO SCH ×3 (09:01→22:28)
[2018-09-11] MEDS: METOPROLOL TARTRATE 12.5 MG TAB PO SCH ×2 (09:02→22:27)
[2018-09-11] MEDS: LISINOPRIL 5 MG TAB PO SCH (09:02)
--- NOTE | 2018-09-11 12:56 | PN ---
PROGRESS NOTE SUBJECTIVE: This 68-year-old white male whose renal insufficiency has improved since admission. Await psychiatry consult. Psychiatry saw the patient. Recommends continue with current antipsychotic medications. They decided he does not need inpatient psychiatric admission. Adult Protective Services awaiting to see him prior to discharge as he is appears to be stable from paranoid schizophrenia, well controlled with medicines, marijuana use, dementia. Cardiac medications for heart disease are stable. He is appears to be eating and drinking. No chest pain. No shortness of breath. CARDIOVASCULAR: S1, S2. Lungs are clear. HEMATOLOGY: Negative Homans. PSYCH: Fair mood and affect. He is giving clear answers. States he just wants a new guardian. Hemoglobin stable up from 11.2 to 11.7 today. Sodium and potassium normal. Urine drug screen is only positive for marijuana. Continue current treatments. MMODL / IJN: [id number] /
[2018-09-11] MEDS: SODIUM CHLORIDE 0.9% 1,000 ML IV SCH (22:27)
[2018-09-11] MEDS: ARIPiprazole 2 MG TAB PO SCH (22:27)
[2018-09-11] MEDS: ZOLPIDEM 10 MG TAB PO SCH (22:28)
[2018-09-12] MEDS: SODIUM CHLORIDE 0.9% 1,000 ML IV SCH (00:25)
[2018-09-12] MEDS: HEPARIN SODIUM,PORCINE 5,000 UNIT/ML 1 ML VIAL SQ SCH ×2 (08:00→21:13)
[2018-09-12] MEDS: ASPIRIN 81 MG PO SCH (08:01)
[2018-09-12] MEDS: ESCITALOPRAM 20 MG TAB PO SCH (08:01)
[2018-09-12] MEDS: FUROSEMIDE 10 MG TAB PO SCH (08:01)
[2018-09-12] MEDS: LEVOTHYROXINE 75 MCG TAB PO SCH (08:01)
[2018-09-12] MEDS: VENLAFAXINE HCL ER 75 MG CAP PO SCH (08:01)
[2018-09-12] MEDS: ATORVASTATIN 10 MG TAB PO SCH (08:01)
[2018-09-12] MEDS: hydrOXYzine HCL 25 MG TAB PO SCH ×3 (08:01→21:13)
[2018-09-12] MEDS: PANTOPRAZOLE 40 MG TABLET PO SCH (08:01)
[2018-09-12] MEDS: LISINOPRIL 5 MG TAB PO SCH (08:02)
[2018-09-12] MEDS: CLOPIDOGREL 75 MG TAB PO SCH (08:02)
[2018-09-12] MEDS: DIVALPROEX 500 MG TABLET.DR PO SCH ×2 (08:02→21:13)
[2018-09-12] MEDS: METOPROLOL TARTRATE 12.5 MG TAB PO SCH ×2 (08:02→21:12)
[2018-09-12] MEDS: DONEPEZIL 10 MG TAB PO SCH (08:02)
[2018-09-12] MEDS: ZOLPIDEM 10 MG TAB PO SCH (21:13)
[2018-09-12] MEDS: ARIPiprazole 2 MG TAB PO SCH (21:13)
[2018-09-13] MEDS: LEVOTHYROXINE 75 MCG TAB PO SCH (05:38)
--- NOTE | 2018-09-13 05:39 | PN ---
PROGRESS NOTE SUBJECTIVE: This is a 68-year-old white male stable from psychiatric standpoint. Acute renal insufficiency is improved. Awaiting discharge planning for patient to be discharged home to a safe area per guardian. CARDIOVASCULAR: S1, S2. LUNGS: Clear. GI: Soft. HEMATOLOGY: Negative Homans. ASSESSMENT: 1. Acute tubular necrosis, acute renal insufficiency stabilized. 2. Paranoid schizophrenia. 3. Ischemic cardiomyopathy. 4. Coronary artery disease. 5. AICD. 6. CABG surgery. 7. Dyslipidemia. 8. Hypertension. 9. Seizure disorder. 10.Hypothyroidism, stable. Possible discharge home as soon as he finds a safe place to go. MMODL / IJN: [id number] /
[2018-09-13] MEDS: PANTOPRAZOLE 40 MG TABLET PO SCH (08:08)
[2018-09-13] MEDS: FUROSEMIDE 10 MG TAB PO SCH (08:09)
[2018-09-13] MEDS: VENLAFAXINE HCL ER 75 MG CAP PO SCH (08:09)
[2018-09-13] MEDS: hydrOXYzine HCL 25 MG TAB PO SCH ×2 (08:09→17:21)
[2018-09-13] MEDS: DIVALPROEX 500 MG TABLET.DR PO SCH ×2 (08:09→17:21)
[2018-09-13] MEDS: ATORVASTATIN 10 MG TAB PO SCH (08:09)
[2018-09-13] MEDS: ESCITALOPRAM 20 MG TAB PO SCH (08:09)
[2018-09-13] MEDS: DONEPEZIL 10 MG TAB PO SCH (08:09)
[2018-09-13] MEDS: CLOPIDOGREL 75 MG TAB PO SCH (08:09)
[2018-09-13] MEDS: LISINOPRIL 5 MG TAB PO SCH (08:09)
[2018-09-13] MEDS: ASPIRIN 81 MG PO SCH (08:09)
[2018-09-13] MEDS: METOPROLOL TARTRATE 12.5 MG TAB PO SCH ×2 (08:10→17:21)
[2018-09-13] MEDS: HEPARIN SODIUM,PORCINE 5,000 UNIT/ML 1 ML VIAL SQ SCH ×2 (12:38→17:20)
[2018-09-13 13:28] VITALS: BP 122/78; PULSE 66; RESP 16; TEMP 97.6
[2018-09-13] MEDS: ARIPiprazole 2 MG TAB PO SCH (17:21)
--- NOTE | 2018-09-16 18:04 | DS ---
DISCHARGE SUMMARY DATE OF ADMISSION: 09/08/2018 DATE OF DISCHARGE: 09/13/2018. CONDITION: Stable. PROGNOSIS: Guarded. Ambulate as tolerated. HOSPITAL COURSE OF EVENTS: White male came with acute renal insufficiency, dehydration with psychiatric behavioral disturbance from the place where he was living. Psychiatry saw him and cleared him for discharge on same psychiatry medicines with nothing changed. His acute renal insufficiency was improved with IV fluids. The patient was stabilized. HOME MEDICATION: 1. Synthroid 25 mcg daily. 2. Lexapro 20 mg daily. 3. Depakote 500 b.i.d. 4. Altace 1.25 mg daily. 5. Omeprazole 40 mg daily. 6. Aricept 10 mg daily. 7. Dexilant 60 mg daily. 8. Plavix 75 mg daily. 9. Atarax 25 mg t.i.d. 10.Metoprolol 12.5 b.i.d. 11.Aspirin 81 mg daily. 12.Effexor XR 75 daily. 13.Lasix 10 mg daily. 14.Lisinopril 5 mg daily. 15.Lipitor 10 mg daily. DISCHARGE DIAGNOSES: 1. Coronary artery disease. 2. Acute renal insufficiency. 3. Acute behavioral disorder. 4. Hypertension. 5. Possible bipolar versus schizophrenia. 6. Dementia. The patient stabilized, given IV fluids until a new place for him found to go home. Stabilized. Sent home in stable condition. Cleared by psychiatrist. LEIF / JOE: [id number] /
== END 2018-09-13 19:11 | disposition home or self-care (01) ==
LOC: EC 15:39 → 3NMEDONC 19:18
PROVIDERS: ADMIT Family Medicine; ATTEND Family Medicine
DX: N17.0 Acute kidney failure with tubular necrosis (principal); F20.0 Paranoid schizophrenia; E86.0 Dehydration; I25.5 Ischemic cardiomyopathy; I25.10 Atherosclerotic heart disease of native coronary artery without angina pectoris; E78.5 Hyperlipidemia, unspecified; I11.0 Hypertensive heart disease with heart failure; I50.9 Heart failure, unspecified; G40.909 Epilepsy, unspecified, not intractable, without status epilepticus; E03.9 Hypothyroidism, unspecified; F17.200 Nicotine dependence, unspecified, uncomplicated; F03.90 Unspecified dementia, unspecified severity, without behavioral disturbance, psychotic disturbance, mood disturbance, and anxiety; F12.10 Cannabis abuse, uncomplicated; Z79.02 Long term (current) use of antithrombotics/antiplatelets; Z79.890 Hormone replacement therapy; Z79.82 Long term (current) use of aspirin; Z79.899 Other long term (current) drug therapy; Z88.5 Allergy status to narcotic agent; Z88.0 Allergy status to penicillin; Z88.7 Allergy status to serum and vaccine; Z95.1 Presence of aortocoronary bypass graft; Z95.810 Presence of automatic (implantable) cardiac defibrillator; Z81.1 Family history of alcohol abuse and dependence; Z83.1 Family history of other infectious and parasitic diseases
CPT/HCPCS: 96361 ×5; 96372 ×4; 96374; 82075; 99285; 36415; 93005; 97161; 80164; 80053; 80048 ×3; 85025 ×3; 81003; 80306; G0378 ×6; G0480; J2060; J1644 ×4; 80320

== ENCOUNTER 2018-12-18 13:09 | Observation (INO) | payer MEDICARE, OTHER ==
--- NOTE | 2018-12-18 13:32 | ED ---
Weakness HPI - General Chief complaint: Weakness Stated complaint: Weakness Time Seen by Provider: 12/18/18 13:26 Source: patient, EMS, RN notes reviewed, old records reviewed Mode of arrival: EMS Limitations: physical limitation - History of Present Illness Initial comments: This is a 68-year-old male the ER for evaluation. Patient presents today for evaluation of chest pain. Patient has significant history of chest pain patient.Patient feels like his pacemaker is no longer working. Patient does have history of heart disease, with chest pain. Patient Brenning of chest pain and abdominal pain as well. No nausea vomiting. No fevers. No shortness of breath currently. Patient is stopped taking all medications by choice as of recent. MD Complaint: generalized weakness, lack of energy -: days(s) Location: generalized, other (Chest pain and abdominal pain) Severity: moderate Severity scale (1-10): 4 Quality: aching Consistency: constant Improves with: none Worsens with: none Context: new medication Associated Symptoms: denies other symptoms - Related Data Home Medications Medication Instructions Recorded Confirmed Divalproex [Depakote] 500 mg PO BID 08/18/18 12/18/18 Donepezil [Aricept] 10 mg PO DAILY 08/18/18 12/18/18 Escitalopram [Lexapro] 20 mg PO DAILY 08/18/18 12/18/18 Levothyroxine Sodium [Synthroid] 75 mcg PO DAILY 08/18/18 12/18/18 Ramipril [Altace] 1.25 mg PO DAILY 08/18/18 12/18/18 Aspirin EC [Ecotrin Low Dose] 81 mg PO DAILY 09/08/18 12/18/18 Metoprolol Tartrate [Lopressor] 12.5 mg PO BID 09/08/18 12/18/18 Venlafaxine HCl [Effexor XR] 75 mg PO DAILY 09/08/18 12/18/18 hydrOXYzine HCL [Atarax] 25 mg PO TID 09/08/18 12/18/18 Ranitidine HCl [Zantac] 150 mg PO DAILY 12/18/18 12/18/18 Simvastatin [Zocor] 20 mg PO DAILY 12/18/18 12/18/18 Torsemide [Demadex] 5 mg PO DAILY 12/18/18 12/18/18 Zolpidem [Ambien] 10 mg PO HS 12/18/18 12/18/18 Allergies Allergy/AdvReac Type Severity Reaction Status Date / Time morphine Allergy Anaphylaxis Verified 12/18/18 13:44 Penicillins Allergy Unknown Verified 12/18/18 13:44 Influenza Virus Vaccines AdvReac Unknown Verified 12/18/18 13:44 pneumococcal vaccine AdvReac Unknown Verified 12/18/18 13:44 Review of Systems ROS Statement: Those systems with pertinent positive or pertinent negative responses have been documented in the HPI. ROS Other: All systems not noted in ROS Statement are negative. Past Medical History Past Medical History: Coronary Artery Disease (CAD), Heart Failure, Dementia, Hyperlipidemia, Hypertension, Seizure Disorder, Syncope, Thyroid Disorder Additional Past Medical History / Comment(s): Ischemic cardiomyopathy, EF 20- 25%, last seizure about 2 yrs ago, hypothyroid.neuropathy "WHEN HE WORKED HE HAD A CRUSHING INJURY -COLLAPSED LUNGS C/T AND HAS CHRONIC BACK PAIN"" History of Any Multi-Drug Resistant Organisms: None Reported Past Surgical History: AICD, Back Surgery, Coronary Bypass/CABG, Heart Catheterization, Heart Catheterization With Stent Additional Past Surgical History / Comment(s): 1995 CABG 4 vessel in [place], has had 2"HEART CATHS/had 2 STENTS after cabg sx.pt stated they were done in [facility]. "sx on tailbone, cortisone injections, devin inguinal hernia repair Past Anesthesia/Blood Transfusion Reactions: No Reported Reaction Date of Last Stent Placement:: unk Type of Cardiac Device: AICD Device Placement Date:: ? 1995 in [facility] Past Psychological History: Anxiety, Depression, Schizoaffective Disorder, Schizophrenia Smoking Status: Former smoker Past Alcohol Use History: None Reported Past Drug Use History: Marijuana - Past Family History Mother Family Medical History: Respiratory Disorder Additional Family Medical History / Comment(s): Mother had TB Father Additional Family Medical History / Comment(s): Father was an alcoholic. General Exam Limitations: physical limitation General appearance: alert, in no apparent distress Head exam: Present: atraumatic, normocephalic, normal inspection Eye exam: Present: normal appearance, PERRL, EOMI. Absent: scleral icterus, conjunctival injection, periorbital swelling ENT exam: Present: normal exam, mucous membranes moist Neck exam: Present: normal inspection. Absent: tenderness, meningismus, lymphadenopathy Respiratory exam: Present: normal lung sounds bilaterally. Absent: respiratory distress, wheezes, rales, rhonchi, stridor Cardiovascular Exam: Present: regular rate, normal rhythm, normal heart sounds. Absent: systolic murmur, diastolic murmur, rubs, gallop, clicks GI/Abdominal exam: Present: soft, normal bowel sounds. Absent: distended, tenderness, guarding, rebound, rigid Extremities exam: Present: normal inspection, full ROM, normal capillary refill. Absent: tenderness, pedal edema, joint swelling, calf tenderness Back exam: Present: normal inspection Neurological exam: Present: alert, oriented X3, CN II-XII intact Psychiatric exam: Present: normal affect, normal mood Skin exam: Present: warm, dry, intact, normal color. Absent: rash Course Vital Signs 12/18/18 12/18/18 12/18/18 13:14 13:30 14:00 Temperature 97.9 F Pulse Rate 66 Respiratory 19 Rate Blood Pressure 141/96 141/96 145/87 O2 Sat by Pulse 100 100 Oximetry 12/18/18 12/18/18 12/18/18 14:30 15:00 15:30 Temperature Pulse Rate 60 60 61 Respiratory 18 Rate Blood Pressure 138/73 131/73 119/81 O2 Sat by Pulse 99 98 Oximetry 12/18/18 12/18/18 16:00 16:30 Temperature Pulse Rate 60 63 Respiratory Rate Blood Pressure 140/77 147/76 O2 Sat by Pulse 97 97 Oximetry - Reevaluation(s) Reevaluation #1: 12/18/18 16:44 Medical record is reviewed Reevaluation #2: 12/18/18 16:45 Spoke with libra Cason for chest pain observation cardiology to evaluate regarding pacemaker EKG Findings - EKG Comments: EKG Findings:: EKG shows paced rhythm rate of 61, IL 126, QRS 78, QTc 446 Medical Decision Making - Medical Decision Making 68 male to the ED w chest and abdominal pain, will admit for chest pain observation - Lab Data Result diagrams: 12/18/18 14:14 12/18/18 14:14 Lab Results 12/18/18 12/18/18 12/18/18 Range/Units 14:14 14:14 14:14 WBC 5.2 (3.8-10.6) k/uL RBC 3.88 L (4.30-5.90) m/uL Hgb 11.7 L (13.0-17.5) gm/dL Hct 36.4 L (39.0-53.0) % MCV 94.0 (80.0-100.0) fL MCH 30.2 (25.0-35.0) pg MCHC 32.1 (31.0-37.0) g/dL RDW 16.0 H (11.5-15.5) % Plt Count 146 L (150-450) k/uL Neutrophils % 45 % Lymphocytes % 41 % Monocytes % 9 % Eosinophils % 1 % Basophils % 0 % Neutrophils # 2.3 (1.3-7.7) k/uL Lymphocytes # 2.1 (1.0-4.8) k/uL Monocytes # 0.5 (0-1.0) k/uL Eosinophils # 0.1 (0-0.7) k/uL Basophils # 0.0 (0-0.2) k/uL Anisocytosis Slight PT (9.0-12.0) sec INR (<1.2) APTT (22.0-30.0) sec Sodium 138 (137-145) mmol/L Potassium 4.8 (3.5-5.1) mmol/L Chloride 107 (98-107) mmol/L Carbon Dioxide 28 (22-30) mmol/L Anion Gap 3 mmol/L BUN 21 H (9-20) mg/dL Creatinine 1.12 (0.66-1.25) mg/dL Est GFR (CKD-EPI)AfAm 78 (>60 ml/min/1.73 sqM) Est GFR (CKD-EPI)NonAf 68 (>60 ml/min/1.73 sqM) Glucose 83 (74-99) mg/dL Calcium 9.5 (8.4-10.2) mg/dL Phosphorus 4.0 (2.5-4.5) mg/dL Magnesium 1.8 (1.6-2.3) mg/dL Total Bilirubin 0.6 (0.2-1.3) mg/dL AST 40 (17-59) U/L ALT 31 (21-72) U/L Alkaline Phosphatase 46 (38-126) U/L Troponin I (0.000-0.034) ng/mL NT-Pro-B Natriuret Pep 2160 pg/mL Total Protein 6.7 (6.3-8.2) g/dL Albumin 3.8 (3.5-5.0) g/dL TSH 4.640 (0.465-4.680) mIU/L Urine Color Urine Appearance (Clear) Urine pH (5.0-8.0) Ur Specific [place] (1.001-1.035) Urine Protein (Negative) Urine Glucose (UA) (Negative) Urine Ketones (Negative) Urine Blood (Negative) Urine Nitrite (Negative) Urine Bilirubin (Negative) Urine Urobilinogen (<2.0) mg/dL Ur Leukocyte Esterase (Negative) 12/18/18 12/18/18 12/18/18 Range/Units 14:14 14:46 15:30 WBC (3.8-10.6) k/uL RBC (4.30-5.90) m/uL Hgb (13.0-17.5) gm/dL Hct (39.0-53.0) % MCV (80.0-100.0) fL MCH (25.0-35.0) pg MCHC (31.0-37.0) g/dL RDW (11.5-15.5) % Plt Count (150-450) k/uL Neutrophils % % Lymphocytes % % Monocytes % % Eosinophils % % Basophils % % Neutrophils # (1.3-7.7) k/uL Lymphocytes # (1.0-4.8) k/uL Monocytes # (0-1.0) k/uL Eosinophils # (0-0.7) k/uL Basophils # (0-0.2) k/uL Anisocytosis PT 11.3 (9.0-12.0) sec INR 1.1 (<1.2) APTT 26.4 (22.0-30.0) sec Sodium (137-145) mmol/L Potassium (3.5-5.1) mmol/L Chloride (98-107) mmol/L Carbon Dioxide (22-30) mmol/L Anion Gap mmol/L BUN (9-20) mg/dL Creatinine (0.66-1.25) mg/dL Est GFR (CKD-EPI)AfAm (>60 ml/min/1.73 sqM) Est GFR (CKD-EPI)NonAf (>60 ml/min/1.73 sqM) Glucose (74-99) mg/dL Calcium (8.4-10.2) mg/dL Phosphorus (2.5-4.5) mg/dL Magnesium (1.6-2.3) mg/dL Total Bilirubin (0.2-1.3) mg/dL AST (17-59) U/L ALT (21-72) U/L Alkaline Phosphatase (38-126) U/L Troponin I <0.012 (0.000-0.034) ng/mL NT-Pro-B Natriuret Pep pg/mL Total Protein (6.3-8.2) g/dL Albumin (3.5-5.0) g/dL TSH (0.465-4.680) mIU/L Urine Color Yellow Urine Appearance Clear (Clear) Urine pH 5.5 (5.0-8.0) Ur Specific [place] 1.020 (1.001-1.035) Urine Protein Negative (Negative) Urine Glucose (UA) Negative (Negative) Urine Ketones Negative (Negative) Urine Blood Negative (Negative) Urine Nitrite Negative (Negative) Urine Bilirubin Negative (Negative) Urine Urobilinogen <2.0 (<2.0) mg/dL Ur Leukocyte Esterase Negative (Negative) - Radiology Data Radiology results: report reviewed (CXR and XR KUB is negative for acute disease), image reviewed Disposition Clinical Impression: Abdominal pain, Essential hypertension, Chest pain Disposition: ADMITTED IP TO THIS HOSP Condition: Fair Is patient prescribed a controlled substance at d/c from ED?: No
[2018-12-18] MEDS ORDERED: SODIUM CHLORIDE 0.9% 1,000 ML IV STA ×2 (13:34)
[2018-12-18 14:36] LABS: Albumin 3.8 g/dL (3.5-5.0); Calcium 9.5 mg/dL (8.4-10.2); Magnesium 1.8 mg/dL (1.6-2.3); Total Bilirubin 0.6 mg/dL (0.2-1.3); Total Protein 6.7 g/dL (6.3-8.2)
[2018-12-18 14:39] LABS: Potassium 4.8 mmol/L (3.5-5.1)
[2018-12-18 14:48] LABS: Anisocytosis Slight; Basophils % (A) 0 %; Eosinophils # (A) 0.1 k/uL (0-0.7); Eosinophils % (A) 1 %; HCT 36.4 % (39.0-53.0); HGB 11.7 gm/dL (13.0-17.5); Lymphocytes # (A) 2.1 k/uL (1.0-4.8); Lymphocytes % (A) 41 %; MCH 30.2 pg (25.0-35.0); MCHC 32.1 g/dL (31.0-37.0); Mean Platelet Volume 8.3; Monocytes # (A) 0.5 k/uL (0-1.0); Monocytes % (A) 9 %; Neutrophils # (A) 2.3 k/uL (1.3-7.7); Neutrophils % (A) 45 %; Platelet Count 146 k/uL (150-450); RBC 3.88 m/uL (4.30-5.90); WBC 5.2 k/uL (3.8-10.6)
--- NOTE | 2018-12-18 14:51 | XR ---
EXAMINATION TYPE: XR chest 2V DATE OF EXAM: 12/18/2018 COMPARISON: 08/20/2018 HISTORY: Shortness of breath TECHNIQUE: Frontal and lateral views of the chest are obtained. FINDINGS: Scattered senescent parenchymal changes noted. Hyperinflation compatible with COPD. No evidence for infiltrate. No evidence for atelectasis. Heart size is stable. Mediastinal structures are stable and grossly unremarkable. No evidence for hilar prominence. Degenerative changes dorsal spine. IMPRESSION: 1. No evidence for acute pulmonary disease.
--- NOTE | 2018-12-18 14:54 | XR ---
EXAMINATION TYPE: XR KUB DATE OF EXAM: 12/18/2018 COMPARISON: 08/18/2018 HISTORY: Pain TECHNIQUE: Single supine KUB image of the abdomen is obtained FINDINGS: Small bowel demonstrates no evidence for dilatation or air fluid levels. Gas and fecal material is seen in non-distended colon. No convincing evidence for pneumoperitoneum. Bilateral nephrolithiasis redemonstrated. Vascular calcifications noted. The lung bases are clear. The osseous structures are intact. IMPRESSION: 1. Overall nonobstructive bowel gas pattern.
[2018-12-18 15:03] LABS: Appearance,Urine Clear (Clear); Bilirubin,Urine Negative (Negative); Blood,Urine Negative (Negative); Color,Urine Yellow; Glucose,Urine (UA) Negative (Negative); Ketones,Urine Negative (Negative); Leukocyte Esterase,Urine Negative (Negative); Nitrite,Urine Negative (Negative); PH, Urine 5.5 (5.0-8.0); Protein,Urine Negative (Negative); Urobilinogen,Urine <2.0 mg/dL (<2.0)
[2018-12-18] MEDS ORDERED: NITROGLYCERIN SL TABS 0.4 MG TAB SUBLINGUAL PRN (15:56)
[2018-12-18] MEDS ORDERED: ASPIRIN 81 MG PO STA (15:56)
[2018-12-18 16:09] LABS: INR 1.1 (<1.2); Partial Thromboplastin Time 26.4 sec (22.0-30.0); Prothrombin Time 11.3 sec (9.0-12.0)
[2018-12-18 17:20] VITALS: BMI 22.8
[2018-12-18] MEDS ORDERED: KETOROLAC 30 MG/ML 1 ML VIAL IVP SCH (18:00)
[2018-12-18] MEDS: KETOROLAC 30 MG/ML 1 ML VIAL IVP PRN (18:35)
[2018-12-18] MEDS: METOPROLOL TARTRATE 12.5 MG TAB PO SCH (20:22)
[2018-12-18] MEDS: DIVALPROEX 500 MG TABLET.DR PO SCH (20:23)
[2018-12-18] MEDS: ZOLPIDEM 10 MG TAB PO SCH (20:23)
[2018-12-18] MEDS ORDERED: METOPROLOL TARTRATE 25 MG TAB PO SCH (21:00)
[2018-12-18] MEDS: hydrOXYzine HCL 25 MG TAB PO SCH (22:10)
[2018-12-19] MEDS: KETOROLAC 30 MG/ML 1 ML VIAL IVP PRN ×3 (01:18→21:20)
[2018-12-19 01:46] LABS: Cholesterol 136 mg/dL (<200); HDL Cholesterol 41 mg/dL (40-60); LDL Cholesterol,Calculated 70 mg/dL (0-99); Triglycerides 125 mg/dL (<150)
[2018-12-19] MEDS: LEVOTHYROXINE 75 MCG TAB PO SCH (06:06)
[2018-12-19] MEDS ORDERED: ASPIRIN 325 MG TAB PO SCH (09:00)
[2018-12-19] MEDS ORDERED: FAMOTIDINE 20 MG TAB PO SCH (09:00)
--- NOTE | 2018-12-19 11:33 | CT ---
EXAMINATION TYPE: CT abdomen pelvis wo con DATE OF EXAM: 12/19/2018 COMPARISON: 08/18/2018 HISTORY: 68-year-old male Abdominal pain with coffee ground emesis CT DLP: 428.6 mGycm. Automated exposure control for dose reduction was used. TECHNIQUE: Contiguous axial scanning of the abdomen and pelvis without IV contrast. Coronal and sagit isael reconstructions performed. FINDINGS: Heart mildly enlarged. Median sternotomy wires. Right ventricular and ICD lead. Trace to small effusi ons and mild patchy groundglass left lower lobe. Circumferential wall thickening of the distal esophagus with a tiny hiatal hernia. Calcified granuloma left liver lobe. Noncontrast appearance of the liver, gallbladder, adrenal glands , left kidney, and pancreas show no gross abnormality. 4.6 cm cyst lower pole right kidney. Trace abdominal ascites remains particularly along the left flank. Mild diffuse anasarca-type change redemonstrated with strandy edema throughout the subcutaneous fat and intra-abdominal fat.. No dilated small bowel or free air. No mesenteric or retroperitoneal lymphadenopathy. Normal appendix. Some submucosal fat deposition seen throughout the colon suggesting chronic inflammation. Also be see n in setting of obesity. Sigmoid diverticulosis without pericolonic inflammatory change. Redemonstrated infrarenal AAA. This currently measures 4.7 x 4.4 cm versus 4.4 x 4.2 cm on 08/18/2018. Some prominent mural based plaque and thrombus and some intraplaque calcifications anteriorly as see n previously. Additional atherosclerotic calcifications within the iliac arteries. Right common iliac artery is ect atic. 1.9 cm and left common iliac artery is borderline ectatic at 1.5 cm. Small fat-containing indirect right inguinal hernia. Bladder partially distended. Prostate gland measures 4.0 cm wide. There seems to be a vascular stent within the left superficial femoral artery. No abnormal fluid shannon ection in the pelvis or pelvic lymphadenopathy. Bones: Degenerative changes of the right SI joint. Mild degenerative changes at the hips. Facet arthr opathy mid to lower lumbar spine. IMPRESSION: 1. Slight interval enlargement of the patient's AAA as compared to 08/18/2018 currently measuring 4.7 x 4.4 cm (versus 4.4 x 4.2 cm, previously). Appropriate follow-up and management recommended. 2. Circumferential wall thickening of the distal esophagus with a tiny hiatal hernia. Correlate for esophagitis. Direct visualization is indicated. 3. Anasarca-type change and trace to small pleural effusions. Correlate for fluid overload state. So me groundglass in the left base could represent atelectasis or early interstitial edema.
--- NOTE | 2018-12-19 11:38 | P.HPIM ---
History of Present Illness H&P Date: 12/19/18 Chief Complaint: Chest pain, abdominal pain, nausea vomiting This is a 68-year-old gentleman with history of CAD, ischemic cardiomyopathy-ES 20-25% with an AICD, hypertension, seizure disorder, schizophrenia, has a legal guardian, lives at a residential admitted with 2 days of nausea vomiting, chest pain and abdominal pain. Patient reports that he stopped taking all of his medications recently about 10 days ago and his "pacemaker is not working". Yesterday had bilateral chest pain, nonradiating , timeframe unknown.reports chest pain has subsided now .Troponin is negative 3, EKG reporting paced rhythm, rate of 61, inferior infarct, age undetermined. Afebrile, normal WBC. This morning complains of bilateral lower quadrant abdominal pain greater in the right lower quadrant extending to right flank pain radiating to mid lower back. Coffee-ground emesis this morning. UA negative. BUN 21 creatinine 1.12(appears at baseline). T bili/LFTs within normal limits, denies cough, shortness of breath. Denies fever or chills. Denies syncope. Seizures have been cont rolled. Review of Systems ROS Statement: Those systems with pertinent positive or pertinent negative responses have been documented in the HPI. ROS Other: All systems not noted in ROS Statement are negative. Past Medical History Past Medical History: Coronary Artery Disease (CAD), Heart Failure, Dementia, Hyperlipidemia, Hypertension, Seizure Disorder, Syncope, Thyroid Disorder Additional Past Medical History / Comment(s): Ischemic cardiomyopathy, EF 20- 25%, last seizure about 2 yrs ago, hypothyroid.neuropathy "WHEN HE WORKED HE HAD A CRUSHING INJURY -COLLAPSED LUNGS C/T AND HAS CHRONIC BACK PAIN"" History of Any Multi-Drug Resistant Organisms: None Reported Past Surgical History: AICD, Back Surgery, Coronary Bypass/CABG, Heart Catheterization, Heart Catheterization With Stent Additional Past Surgical History / Comment(s): 1995 CABG 4 vessel in [place], has had 2"HEART CATHS/had 2 STENTS after cabg sx.pt stated they were done in [facility]. "sx on tailbone, cortisone injections, devin inguinal hernia repair Past Anesthesia/Blood Transfusion Reactions: No Reported Reaction Date of Last Stent Placement:: unk Type of Cardiac Device: AICD Device Placement Date:: ? 1995 in [place], [place] Past Psychological History: Anxiety, Depression, Schizoaffective Disorder, Schizophrenia Smoking Status: Former smoker Past Alcohol Use History: None Reported Past Drug Use History: Marijuana - Past Family History Mother Family Medical History: Respiratory Disorder Additional Family Medical History / Comment(s): Mother had TB Father Additional Family Medical History / Comment(s): Father was an alcoholic. Medications and Allergies Home Medications Medication Instructions Recorded Confirmed Type Divalproex [Depakote] 500 mg PO BID 08/18/18 12/18/18 History Donepezil [Aricept] 10 mg PO DAILY 08/18/18 12/18/18 History Escitalopram [Lexapro] 20 mg PO DAILY 08/18/18 12/18/18 History Levothyroxine Sodium [Synthroid] 75 mcg PO DAILY 08/18/18 12/18/18 History Ramipril [Altace] 1.25 mg PO DAILY 08/18/18 12/18/18 History Aspirin EC [Ecotrin Low Dose] 81 mg PO DAILY 09/08/18 12/18/18 History Metoprolol Tartrate [Lopressor] 12.5 mg PO BID 09/08/18 12/18/18 History Venlafaxine HCl [Effexor XR] 75 mg PO DAILY 09/08/18 12/18/18 History hydrOXYzine HCL [Atarax] 25 mg PO TID 09/08/18 12/18/18 History Ranitidine HCl [Zantac] 150 mg PO DAILY 12/18/18 12/18/18 History Simvastatin [Zocor] 20 mg PO DAILY 12/18/18 12/18/18 History Torsemide [Demadex] 5 mg PO DAILY 12/18/18 12/18/18 History Zolpidem [Ambien] 10 mg PO HS 12/18/18 12/18/18 History Allergies Allergy/AdvReac Type Severity Reaction Status Date / Time morphine Allergy Anaphylaxis Verified 12/18/18 13:44 Penicillins Allergy Unknown Verified 12/18/18 13:44 Influenza Virus Vaccines AdvReac Unknown Verified 12/18/18 13:44 pneumococcal vaccine AdvReac Unknown Verified 12/18/18 13:44 Physical Exam Vitals: Vital Signs Temp Pulse Pulse Pulse Resp BP BP 12/19/18 08:00 97.4 F L 60 18 126/68 12/19/18 03:36 16 12/19/18 03:30 98.3 F 60 16 124/70 12/18/18 23:54 18 12/18/18 23:34 97.5 F L 61 18 134/77 12/18/18 20:00 98.1 F 61 16 117/66 12/18/18 17:03 97.5 F L 76 18 147/82 12/18/18 16:30 63 147/76 12/18/18 16:00 60 140/77 12/18/18 15:30 61 119/81 12/18/18 15:00 60 18 131/73 12/18/18 14:30 60 138/73 12/18/18 14:00 145/87 12/18/18 13:30 141/96 12/18/18 13:14 97.9 F 66 19 141/96 Pulse Ox 12/19/18 08:00 97 12/19/18 03:36 12/19/18 03:30 96 12/18/18 23:54 12/18/18 23:34 93 L 12/18/18 20:00 98 12/18/18 17:03 97 12/18/18 16:30 97 12/18/18 16:00 97 12/18/18 15:30 98 12/18/18 15:00 99 12/18/18 14:30 12/18/18 14:00 12/18/18 13:30 100 12/18/18 13:14 100 Intake and Output 12/18/18 12/19/18 12/19/18 22:59 06:59 14:59 Intake Total 240 Output Total 490 Balance 240 -490 Intake: Oral 240 Output: Urine 490 Other: Voiding Method Urinal Urinal PHYSICAL EXAM: VITAL SIGNS: As above GENERAL: Lying in bed, sleeping, arouses easily, no acute distress HEENT: Conjunctivae normal. eyes normal., Oral mucosa dry NECK: No JVD. No thyroid enlargement. No LNs CARDIOVASCULAR: S1, S2 muffled. No murmur RESPIRATION: Breath sounds diminished in the bases. No rhonchi or crackles. No bronchial breathing. ABDOMEN: Soft, bilateral lower quadrant tenderness, greater on the right extending to the right flank . No guarding. no masses palpable. No ascites, No hepatosplenomegaly.Bowel sounds heard. LEGS: No edema. no swelling PSYCHIATRY: Alert and oriented -3, mood and affect normal NERVOUS SYSTEM: Cranial N 2-12 grossly normal. Moves all 4 limbs. Diffuse weakness No focal deficits. Skin: no lesions, no rash, warm, dry Joints: No active swelling. No inflammation. Lymphatic system. No LN neck axilla or groin. Results CBC & Chem 7: 12/18/18 14:14 12/18/18 14:14 Labs: Abnormal Lab Results - Last 24 Hours (Table) 12/18/18 12/18/18 Range/Units 14:14 14:14 RBC 3.88 L (4.30-5.90) m/uL Hgb 11.7 L (13.0-17.5) gm/dL Hct 36.4 L (39.0-53.0) % RDW 16.0 H (11.5-15.5) % Plt Count 146 L (150-450) k/uL BUN 21 H (9-20) mg/dL Microbiology - Last 24 Hours (Table) 12/18/18 14:46 Urine Culture - Preliminary Urine,Voided Thrombosis Risk Factor Assmnt - Choose All That Apply Any of the Below Risk Factors Present?: Yes Each Factor Represents 1 point: Medical pt on bed rest Other Risk Factors: Yes Each Risk Factor Represents 2 Points: Age 61-74 years Other congenital or acquired thrombophilia - If yes, enter type in comment: No Thrombosis Risk Factor Assessment Total Risk Factor Score: 3 Thrombosis Risk Factor Assessment Level: Moderate Risk Assessment and Plan Assessment: -Acute chest pain, rule out acute coronary syndrome -Acute abdominal pain, accompanied by nausea vomiting, coffee ground emesis, workup in progress -CAD, Ischemic cardiomyopathy, EF 20-25% with AICD, history of CABG. -Chronic renal insufficiency -Paranoid Schizophrenia. -History of marijuana abuse, nicotine abuse -Dementia -Seizure disorder -Hypothyroidism Plan: Continue on current medication regime ,monitoring and symptomatic treatment.NPO. Abdomen/pelvis CT ordered .Cardiology and surgery consulted. Echo ordered. GI and DVT prophylaxis in place. 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 GI and DVT prophylaxis. Home medications have been reviewed and resumed. Further recommendations to follow. The impression and plan of care has been dictated as directed. : I performed a history and examination of this patient, discussed the same with the dictator. I agree with the dictator's note ,documented as a scribe. Any additional findings or plans will be noted. Time taken: 35 minutes
[2018-12-19] MEDS: PANTOPRAZOLE 40 MG/10 ML VIAL IVP SCH (12:07)
--- NOTE | 2018-12-19 14:09 | P.CRDCN ---
History of Present Illness History of present illness: This is a 68-year-old male past medical history significant for coronary artery disease status post bypass grafting, [employer] AICD placement, ischemic cardiomyopathy, hypertension, dyslipidemia, chronic systolic heart failure, seizure disorder and schizoaffective disorder. He states he quit smoking cigarettes approximately 6 months ago however he smokes marijuana regularly. He recently saw Dr. Martel in the office in July 2018. At that time he underwent an evaluation and interrogation of his device which revealed a normal functioning DDD are setting with 7.4 years left remaining on his battery. He recently underwent an echocardiogram revealing severely impai red LV systolic function with ejection fraction 20-25%, severely dilated left atrium, moderate to severe mitral regurgitation and mild tricuspid regurgitation. We have been asked to see him in consultation secondary to chest discomfort. He presented to the hospital yesterday with symptoms of chest discomfort, right shoulder pain and abdominal pain. He is seen and examined resting comfortably lying flat in bed in no acute distress. He is mildly diaphoretic at the time of my exam. He is somewhat of a poor historian and has flight of ideas. He is complaining currently of reproducible chest pain, abdominal pain, nausea, right shoulder pain at the site of the ICD, nausea and dizziness. He also states his "pacemaker is moving and not working." He also states the halfway he has been limiting him for the past 2 months is not capable of giving him his medications. He also this morning had an episode of coffee-ground emesis. EKG reveals sinus mechanism with evidence of atrial paced beats, heart rate of 61 with inferior Q waves noted. Chest x-ray and KUB x-ray negative for an acute process. CT of the abdomen and pelvis reveals right ventricular ICD lead, small effusions and mild patchy chronic last [place] in the left lower lobe, trace abdominal ascites along the left flank, mild diffuse anasarca-type change with stranding edema, sigmoid diverticulosis without inflammation, abdominal aortic aneurysm 4.7 x 4.4 cm that is mildly enlarged from previous study in August 2018 and circumferential wall thickening of the distal esophagus with hiatal hernia. Laboratory data reviewed, WBC 5.2, hemoglobin 11.7, platelets 146, sodium 138, potassium 4.8, creatinine 1.12, magnesium 1.8, NT proBNP 2160, cardiac enzymes negative 3, LDL 70, TSH 4.64. Current cardiac medications include aspirin 81 mg daily, Lopressor 12.5 mg twice a day, ramipril 1.25 mg daily, simvastatin 20 mg daily, torsemide 5 mg daily. At the time of my exam: CONSTITUTIONAL: Denies fever. Denies chills. EYES: Denies blurred vision. Denies vision changes. Denies eye pain. EARS, NOSE, MOUTH & THROAT: Denies headache. Denies sore throat. Denies ear pain. CARDIOVASCULAR: Complains of chest pain. Denies shortness of breath. Denies orthopnea. Denies PND. Denies palpitations. RESPIRATORY: Denies cough. GASTROINTESTINAL: Complains of abdominal pain. Denies diarrhea. Denies constipation. Complains of nausea. Denies vomiting. MUSCULOSKELETAL: Denies myalgias. INTEGUMENTARY: Denies pruitis. Denies rash. NEUROLOGIC: Denies numbness. Denies tingling. Complains of weakness. PSYCHIATRIC: Denies anxiety. Denies depression. ENDOCRINE: Denies fatigue. Denies weight change. Denies polydipsia. Denies polyurina. GENITOURINARY: Denies burning, hematuria or urgency with micturation. HEMATOLOGIC: Denies history of anemia. Denies bleeding. Blood pressure 126/68 heart rate 60 afebrile maintaining oxygen saturation on room air GENERAL: This is a 68-year-old male in no apparent distress at the time of my examination. Mildly diaphoretic. HEENT: Head is atraumatic, normocephalic. Pupils are equal, round. Sclerae anicteric. Conjunctivae are clear. Mucous membranes of the mouth are moist. Neck is supple. There is no jugular venous distention. No carotid bruit is heard. LUNGS: Clear to auscultation no wheezes, rales or rhonchi. No chest wall tenderness is noted on palpation or with deep breathing. Diminished bilaterally. HEART: Regular rate and rhythm without murmurs, rubs or gallops. S1 and S2 heard. ABDOMEN: Soft, diffusely tender left upper quadrant. Bowel sounds are heard. No organomegaly noted. EXTREMITIES: No evidence of peripheral edema and no calf tenderness noted. VASCULAR: Radial and dorsalis pedis pulses palpated, no evidence of clubbing. NEUROLOGIC: Patient is awake, alert and oriented x3. Patient is a poor historian and has flight of ideas. ASSESSMENT Chest pain, reproducible on palpation of the upper anterior left chest wall and left upper quadrant of the abdomen. Atypical for angina. Abdominal pain with nausea and coffee-ground emesis Abdominal aortic aneurysm History of coronary artery disease status post bypass grafting. Exact details unavailable. This apparently took place in [place]. Chronic ischemic cardiomyopathy, ejection fraction 20-25%, status post ICD placement Chronic systolic heart failure, currently euvolemic Hypertension Dyslipidemia Peripheral vascular disease Mitral regurgitation PLAN Patient is a very poor historian and has been giving different stories to different providers. Difficult to tell what is really going on. Clinically he is tender in the left upper quadrant with reproducible abdominal pain, nausea and vomiting. Pacemaker interrogation from the office reviewed with no acute abnormalities noted and end of life 7.4 years. An acute coronary event has been ruled out. His chest pain he describes to me is pleuritic in nature. No further cardiac work-up at this time. Follow up with Dr. Martel upon discharge as already established. Thank you kindly for this consultation. Nurse Practitioner note has been reviewed, I agree with a documented findings and plan of care. Patient was seen and examined. Past Medical History Past Medical History: Coronary Artery Disease (CAD), Heart Failure, Dementia, Hyperlipidemia, Hypertension, Seizure Disorder, Syncope, Thyroid Disorder Additional Past Medical History / Comment(s): Ischemic cardiomyopathy, EF 20- 25%, last seizure about 2 yrs ago, hypothyroid.neuropathy "WHEN HE WORKED HE HAD A CRUSHING INJURY -COLLAPSED LUNGS C/T AND HAS CHRONIC BACK PAIN"" History of Any Multi-Drug Resistant Organisms: None Reported Past Surgical History: AICD, Back Surgery, Coronary Bypass/CABG, Heart Catheterization, Heart Catheterization With Stent Additional Past Surgical History / Comment(s): 1995 CABG 4 vessel in [place], has had 2"HEART CATHS/had 2 STENTS after cabg sx.pt stated they were done in [facility]. "sx on tailbone, cortisone injections, devin inguinal hernia repair Past Anesthesia/Blood Transfusion Reactions: No Reported Reaction Date of Last Stent Placement:: unk Type of Cardiac Device: AICD Device Placement Date:: ? 1995 in [facility] Past Psychological History: Anxiety, Depression, Schizoaffective Disorder, Schizophrenia Smoking Status: Former smoker Past Alcohol Use History: None Reported Past Drug Use History: Marijuana - Past Family History Mother Family Medical History: Respiratory Disorder Additional Family Medical History / Comment(s): Mother had TB Father Additional Family Medical History / Comment(s): Father was an alcoholic. Medications and Allergies Home Medications Medication Instructions Recorded Confirmed Type Divalproex [Depakote] 500 mg PO BID 08/18/18 12/18/18 History Donepezil [Aricept] 10 mg PO DAILY 08/18/18 12/18/18 History Escitalopram [Lexapro] 20 mg PO DAILY 08/18/18 12/18/18 History Levothyroxine Sodium [Synthroid] 75 mcg PO DAILY 08/18/18 12/18/18 History Ramipril [Altace] 1.25 mg PO DAILY 08/18/18 12/18/18 History Aspirin EC [Ecotrin Low Dose] 81 mg PO DAILY 09/08/18 12/18/18 History Metoprolol Tartrate [Lopressor] 12.5 mg PO BID 09/08/18 12/18/18 History Venlafaxine HCl [Effexor XR] 75 mg PO DAILY 09/08/18 12/18/18 History hydrOXYzine HCL [Atarax] 25 mg PO TID 09/08/18 12/18/18 History Ranitidine HCl [Zantac] 150 mg PO DAILY 12/18/18 12/18/18 History Simvastatin [Zocor] 20 mg PO DAILY 12/18/18 12/18/18 History Torsemide [Demadex] 5 mg PO DAILY 12/18/18 12/18/18 History Zolpidem [Ambien] 10 mg PO HS 12/18/18 12/18/18 History Allergies Allergy/AdvReac Type Severity Reaction Status Date / Time morphine Allergy Anaphylaxis Verified 12/18/18 13:44 Penicillins Allergy Unknown Verified 12/18/18 13:44 Influenza Virus Vaccines AdvReac Unknown Verified 12/18/18 13:44 pneumococcal vaccine AdvReac Unknown Verified 12/18/18 13:44 Physical Exam Vitals: Vital Signs Temp Pulse Pulse Pulse Resp BP BP 12/19/18 08:00 97.4 F L 60 18 126/68 12/19/18 03:36 16 12/19/18 03:30 98.3 F 60 16 124/70 12/18/18 23:54 18 12/18/18 23:34 97.5 F L 61 18 134/77 12/18/18 20:00 98.1 F 61 16 117/66 12/18/18 17:03 97.5 F L 76 18 147/82 12/18/18 16:30 63 147/76 12/18/18 16:00 60 140/77 12/18/18 15:30 61 119/81 12/18/18 15:00 60 18 131/73 12/18/18 14:30 60 138/73 12/18/18 14:00 145/87 12/18/18 13:30 141/96 12/18/18 13:14 97.9 F 66 19 141/96 Pulse Ox 12/19/18 08:00 97 12/19/18 03:36 12/19/18 03:30 96 12/18/18 23:54 12/18/18 23:34 93 L 12/18/18 20:00 98 12/18/18 17:03 97 12/18/18 16:30 97 12/18/18 16:00 97 12/18/18 15:30 98 12/18/18 15:00 99 12/18/18 14:30 12/18/18 14:00 12/18/18 13:30 100 12/18/18 13:14 100 Intake and Output 12/18/18 12/19/18 12/19/18 22:59 06:59 14:59 Intake Total 240 Output Total 490 Balance 240 -490 Intake: Oral 240 Output: Urine 490 Other: Voiding Method Urinal Urinal Urinal Weight 67.993 kg Results 12/18/18 14:14 12/18/18 14:14 Cardiac Enzymes 12/18/18 12/18/18 12/18/18 Range/Units 14:14 14:14 20:10 AST 40 (17-59) U/L Troponin I <0.012 <0.012 (0.000-0.034) ng/mL 12/19/18 Range/Units 03:06 AST (17-59) U/L Troponin I <0.012 (0.000-0.034) ng/mL Coagulation 12/18/18 Range/Units 15:30 PT 11.3 (9.0-12.0) sec APTT 26.4 (22.0-30.0) sec Lipids 12/18/18 Range/Units 14:46 Triglycerides 125 (<150) mg/dL Cholesterol 136 (<200) mg/dL HDL Cholesterol 41 (40-60) mg/dL CBC 12/18/18 Range/Units 14:14 WBC 5.2 (3.8-10.6) k/uL RBC 3.88 L (4.30-5.90) m/uL Hgb 11.7 L (13.0-17.5) gm/dL Hct 36.4 L (39.0-53.0) % Plt Count 146 L (150-450) k/uL Comprehensive Metabolic Panel 12/18/18 Range/Units 14:14 Sodium 138 (137-145) mmol/L Potassium 4.8 (3.5-5.1) mmol/L Chloride 107 (98-107) mmol/L Carbon Dioxide 28 (22-30) mmol/L BUN 21 H (9-20) mg/dL Creatinine 1.12 (0.66-1.25) mg/dL Glucose 83 (74-99) mg/dL Calcium 9.5 (8.4-10.2) mg/dL AST 40 (17-59) U/L ALT 31 (21-72) U/L Alkaline Phosphatase 46 (38-126) U/L Total Protein 6.7 (6.3-8.2) g/dL Albumin 3.8 (3.5-5.0) g/dL Current Medications Generic Name Dose Route Start Last Admin Trade Name Freq PRN Reason Stop Dose Admin Aspirin 81 mg 12/19/18 09:00 Aspirin PO DAILY [facility] Atorvastatin Calcium 10 mg 12/19/18 09:00 Lipitor PO DAILY [facility] Divalproex Sodium 500 mg 12/18/18 21:00 12/18/18 20:23 Depakote PO 500 mg BID RADHA Administration Donepezil HCl 10 mg 12/19/18 09:00 Aricept PO DAILY [facility] Escitalopram Oxalate 20 mg 12/19/18 09:00 Lexapro PO DAILY [facility] Furosemide 10 mg 12/19/18 09:00 Lasix PO DAILY [facility] Hydroxyzine HCl 25 mg 12/18/18 22:00 12/18/18 22:10 Atarax PO 25 mg TID RADHA Administration Ketorolac Tromethamine 15 mg 12/18/18 18:14 12/19/18 09:21 Toradol IVP 12/22/18 18:01 15 mg Q6HR PRN Administration Pain Levothyroxine Sodium 75 mcg 12/19/18 06:30 12/19/18 06:06 Synthroid PO 75 mcg DAILY@0630 RADHA Administration Lisinopril 5 mg 12/19/18 09:00 Zestril PO DAILY [facility] Metoprolol Tartrate 12.5 mg 12/18/18 21:00 12/18/18 20:22 Lopressor PO 12.5 mg BID RADHA Administration Nitroglycerin 0.4 mg 12/18/18 15:56 Nitrostat SUBLINGUAL Q5M PRN Chest Pain Pantoprazole Sodium 40 mg 12/19/18 12:00 Protonix IVP DAILY [facility] Venlafaxine HCl 75 mg 12/19/18 09:00 Effexor Xr PO DAILY [facility] Zolpidem Tartrate 10 mg 12/18/18 21:00 12/18/18 20:23 Ambien PO 10 mg HS RADHA Administration Intake and Output 12/18/18 12/19/18 12/19/18 22:59 06:59 14:59 Intake Total 240 Output Total 490 Balance 240 -490 Intake: Oral 240 Output: Urine 490 Other: Voiding Method Urinal Urinal Urinal Weight 67.993 kg Patient Weight 12/20/18 06:59 Weight 67.993 kg 12/18/18 14:14 12/18/18 14:14
[2018-12-19] MEDS: ASPIRIN 81 MG PO SCH (18:35)
[2018-12-19] MEDS: ATORVASTATIN 10 MG TAB PO SCH (18:35)
[2018-12-19] MEDS: ESCITALOPRAM 20 MG TAB PO SCH (18:36)
[2018-12-19] MEDS: DONEPEZIL 10 MG TAB PO SCH (18:36)
[2018-12-19] MEDS: LISINOPRIL 5 MG TAB PO SCH (18:36)
[2018-12-19] MEDS: FUROSEMIDE 10 MG TAB PO SCH (18:36)
[2018-12-19] MEDS: hydrOXYzine HCL 25 MG TAB PO SCH ×3 (18:36→20:33)
[2018-12-19] MEDS: VENLAFAXINE HCL ER 75 MG CAP PO SCH (18:36)
[2018-12-19] MEDS: METOPROLOL TARTRATE 12.5 MG TAB PO SCH ×2 (18:36→20:33)
[2018-12-19] MEDS: DIVALPROEX 500 MG TABLET.DR PO SCH ×2 (18:36→20:33)
[2018-12-19] MEDS: ZOLPIDEM 10 MG TAB PO SCH (20:38)
[2018-12-20] MEDS: LEVOTHYROXINE 75 MCG TAB PO SCH (06:18)
[2018-12-20] MEDS: KETOROLAC 30 MG/ML 1 ML VIAL IVP PRN (07:41)
--- NOTE | 2018-12-20 07:51 | CONS ---
DATE OF CONSULTATION: 12/19/2018 This is a 68-year-old gentleman who came to the emergency room with his with history of chest pain and some abdominal discomfort. The patient lives in a [facility] and he stopped taking his medication. The patient has some complaint of generalized weakness and also complaining of he has some abdominal pain since his open- heart surgery, which was long time ago. MEDICAL HISTORY: History of coronary artery disease, open heart surgery done 20 years ago, history of heart failure, history of dementia, history of hyperlipidemia, hypertension, seizure disorder, thyroid disorder, has history of ischemic cardiomyopathy, ejection fraction is 20% to 25%. PAST SURGICAL HISTORY: Patient had a AICD, back surgery, coronary artery bypass done, heart catheterization with stent. PHYSICAL EXAMINATION: On examination, patient was seen in his room. His temperature is 97.9, pulse rate is 66, respiration 20, blood pressure 141/96. NECK: Supple. Trachea central. CHEST: Clear on auscultation. ABDOMEN: No sign. Mild tenderness in the right upper quadrant. No peritoneal signs noted. Femoral pulses are present bilateral. LAB FINDING: His white cell count is 5.2. His hemoglobin is 11.7. The patient had a flat plate of the abdomen. Patient has bilateral nephrolithiasis. Patient had a CT of the abdomen and pelvis which showed a trace amount of ascites along the left flank, mild diffuse anasarca type of changes demonstrated within the strand of edema throughout the subcutaneous fat and intraabdominal fat. No evidence of bowel obstruction. The patient had a CT of the abdomen dated 08/18/2018. Patient has aneurysm of 4.4 x 4.2 and recently patient had a CT scan of the abdomen today is 4.7 x 4.4, no evidence of endoleak. IMPRESSION: Infrarenal abdominal aortic aneurysm, slightly increased in size. Femoral pulses are present. PLAN: The patient has been complaining of chest pain and patient under evaluation. We will follow with you. MMODL / IJN: [id number] / MTDD
[2018-12-20] MEDS ORDERED: LORazepam 2 MG/ML INJ IV PRN (08:19)
[2018-12-20] MEDS: FUROSEMIDE 10 MG TAB PO SCH (08:22)
[2018-12-20] MEDS: ASPIRIN 81 MG PO SCH (08:22)
[2018-12-20] MEDS: DONEPEZIL 10 MG TAB PO SCH (08:22)
[2018-12-20] MEDS: DIVALPROEX 500 MG TABLET.DR PO SCH (08:22)
[2018-12-20] MEDS: ESCITALOPRAM 20 MG TAB PO SCH (08:22)
[2018-12-20] MEDS: ATORVASTATIN 10 MG TAB PO SCH (08:22)
[2018-12-20] MEDS: LISINOPRIL 5 MG TAB PO SCH (08:23)
[2018-12-20] MEDS: hydrOXYzine HCL 25 MG TAB PO SCH (08:23)
[2018-12-20] MEDS: METOPROLOL TARTRATE 12.5 MG TAB PO SCH (08:23)
[2018-12-20] MEDS: VENLAFAXINE HCL ER 75 MG CAP PO SCH (09:01)
[2018-12-20] MEDS: PANTOPRAZOLE 40 MG/10 ML VIAL IVP SCH (09:01)
--- NOTE | 2018-12-20 10:31 | P.GSCN ---
History of Present Illness Consult date: 12/20/18 Reason for Consult: abdominal pain Requesting physician: Raffaele Verdin History of present illness: CHIEF COMPLAINT: abdominal pain, emesis HISTORY OF PRESENT ILLNESS: 68 year old male who presented to the hospital due to chest pain. Patient also reports abdominal pain and emesis. General surgery was consulted for further evaluation. Patient examined at the bedside. He is a poor historian and recently received IV ativan. He reports right upper quadrant pain. He reports vomiting every time after he eats for the last two weeks. Apparently, patient had an episode of coffee ground emesis upon admission. He did have an episode of bilious emesis overnight. PAST MEDICAL HISTORY: See list. PAST SURGICAL HISTORY: See list. SOCIAL HISTORY: No illicit drug use. REVIEW OF SYSTEMS: CONSTITUTIONAL: Denies fever or chills. HEENT: Denies blurred vision, vision changes, or eye pain. Denies hemoptysis CARDIOVASCULAR: Reports chest pain prior to admission. RESPIRATORY: No shortness of breath. GASTROINTESTINAL: Refer to HPI for pertinent findings HEMATOLOGIC: Denies bleeding disorders. GENITOURINARY: Denies any blood in urine. SKIN: Denies pruitis. Denies rash. PHYSICAL EXAM: VITAL SIGNS: Reviewed. GENERAL: Well-developed in no acute distress. HEENT: No sclera icterus. Extraocular movements grossly intact. Moist buccal mucosa. Head is atraumatic, normocephalic. ABDOMEN: Soft. Nondistended. Nontender. NEUROLOGIC: Alert and oriented. Cranial nerves II through XII grossly intact. IMAGING: CT abdomen and pelvis: Circumferential wall thickening of the distal esophagus with a tiny hiatal hernia. Correlate for esophagitis. ASSESSMENT: 1. Abdominal pain with coffee ground emesis PLAN: NPO. Patient will undergo EGD today with Dr. Brown Nurse practitioner note has been reviewed by physician. Signing provider agrees with the documented findings, assessment, and plan of care. Past Medical History Past Medical History: Coronary Artery Disease (CAD), Heart Failure, Dementia, Hyperlipidemia, Hypertension, Seizure Disorder, Syncope, Thyroid Disorder Additional Past Medical History / Comment(s): Ischemic cardiomyopathy, EF 20- 25%, last seizure about 2 yrs ago, hypothyroid.neuropathy "WHEN HE WORKED HE HAD A CRUSHING INJURY -COLLAPSED LUNGS C/T AND HAS CHRONIC BACK PAIN"" History of Any Multi-Drug Resistant Organisms: None Reported Past Surgical History: AICD, Back Surgery, Coronary Bypass/CABG, Heart Catheterization, Heart Catheterization With Stent Additional Past Surgical History / Comment(s): 1995 CABG 4 vessel in [place], has had 2"HEART CATHS/had 2 STENTS after cabg sx.pt stated they were done in [facility]. "sx on tailbone, cortisone injections, devin inguinal hernia repair Past Anesthesia/Blood Transfusion Reactions: No Reported Reaction Date of Last Stent Placement:: unk Type of Cardiac Device: AICD Device Placement Date:: ? [address] [facility] Past Psychological History: Anxiety, Depression, Schizoaffective Disorder, Schizophrenia Smoking Status: Former smoker Past Alcohol Use History: None Reported Past Drug Use History: Marijuana - Past Family History Mother Family Medical History: Respiratory Disorder Additional Family Medical History / Comment(s): Mother had TB Father Additional Family Medical History / Comment(s): Father was an alcoholic. Medications and Allergies Home Medications Medication Instructions Recorded Confirmed Type Divalproex [Depakote] 500 mg PO BID 08/18/18 12/18/18 History Donepezil [Aricept] 10 mg PO DAILY 08/18/18 12/18/18 History Escitalopram [Lexapro] 20 mg PO DAILY 08/18/18 12/18/18 History Levothyroxine Sodium [Synthroid] 75 mcg PO DAILY 08/18/18 12/18/18 History Ramipril [Altace] 1.25 mg PO DAILY 08/18/18 12/18/18 History Aspirin EC [Ecotrin Low Dose] 81 mg PO DAILY 09/08/18 12/18/18 History Metoprolol Tartrate [Lopressor] 12.5 mg PO BID 09/08/18 12/18/18 History Venlafaxine HCl [Effexor XR] 75 mg PO DAILY 09/08/18 12/18/18 History hydrOXYzine HCL [Atarax] 25 mg PO TID 09/08/18 12/18/18 History Ranitidine HCl [Zantac] 150 mg PO DAILY 12/18/18 12/18/18 History Simvastatin [Zocor] 20 mg PO DAILY 12/18/18 12/18/18 History Torsemide [Demadex] 5 mg PO DAILY 12/18/18 12/18/18 History Zolpidem [Ambien] 10 mg PO HS 12/18/18 12/18/18 History Allergies Allergy/AdvReac Type Severity Reaction Status Date / Time morphine Allergy Anaphylaxis Verified 12/18/18 13:44 Penicillins Allergy Unknown Verified 12/18/18 13:44 Influenza Virus Vaccines AdvReac Unknown Verified 12/18/18 13:44 pneumococcal vaccine AdvReac Unknown Verified 12/18/18 13:44 Surgical - Exam Vital Signs Temp Pulse Resp BP Pulse Ox 97.9 F 66 19 141/96 100 12/18/18 13:14 12/18/18 13:14 12/18/18 13:14 12/18/18 13:14 12/18/18 13:14 Results - Labs 12/18/18 14:14 12/18/18 14:14 Microbiology - Last 24 Hours (Table) 12/18/18 14:46 Urine Culture - Final Urine,Voided
--- NOTE | 2018-12-20 11:17 | ECHOF ---
Referral Reason:LV function MEASUREMENTS -------- HEIGHT: 172.7 cm WEIGHT: 67.6 kg BP: RVIDd: 2.8 cm (< 3.3) IVSd: 1.2 cm (0.6 - 1.1) LVIDd: 5.3 cm (3.9 - 5.3) LVPWd: 1.1 cm (0.6 - 1.1) IVSs: 1.2 cm LVIDs: 4.6 cm LVPWs: 1.5 cm LA Diam: 4.4 cm (2.7 - 3.8) LAESV Index (A-L): 42.90 ml/m Ao Diam: 3.5 cm (2.0 - 3.7) AV Cusp: 2.3 cm (1.5 - 2.6) LA Diam: 5.0 cm (2.7 - 3.8) MV E Lorne: 0.66 m/s MV DecT: 211 ms MV A Lorne: 0.56 m/s MV E/A Ratio: 1.18 RAP: 5.00 mmHg RVSP: 16.89 mmHg FINDINGS -------- Paced rhythm. This was a technically good study. The left ventricular size is normal. There is mild concentric left ventricular hypertrophy. Overa ll left ventricular systolic function is mild-moderately impaired with, an EF between 40 - 45 %. Po sterior hypokinesis Inferior Hypokinesis The right ventricle is normal in size. The left atrium is markedly dilated. LA is severely dilated >40 ml/m2 The right atrium is normal in size. Possible PFO There is mild aortic valve sclerosis. The mitral valve leaflets are mildly thickened. Mild mitral annular calcification present. Modera [id number] mitral regurgitation is present. Mild tricuspid regurgitation present. There is no evidence of pulmonary hypertension. The right v entricular systolic pressure, as measured by Doppler, is 16.89mmHg. Trace/mild (physiologic) pulmonic regurgitation. The aortic root size is normal. Normal inferior vena cava with normal inspiratory collapse consistent with estimated right atrial pre ssure of 5 mmHg. There is no pericardial effusion. CONCLUSIONS -------- 1. Paced rhythm. 2. This was a technically good study. 3. The left ventricular size is normal. 4. There is mild concentric left ventricular hypertrophy. 5. Overall left ventricular systolic function is mild-moderately impaired with, an EF between 40 - 45 %. 6. Posterior hypokinesis 7. Inferior Hypokinesis 8. The right ventricle is normal in size. 9. The left atrium is markedly dilated. 10. LA is severely dilated >40 ml/m2 11. The right atrium is normal in size. 12. Possible PFO 13. There is mild aortic valve sclerosis. 14. The mitral valve leaflets are mildly thickened. 15. Mild mitral annular calcification present. 16. [id number] mitral regurgitation is present. 17. Mild tricuspid regurgitation present. 18. There is no evidence of pulmonary hypertension. 19. The right ventricular systolic pressure, as measured by Doppler, is 16.89mmHg. 20. Trace/mild (physiologic) pulmonic regurgitation. 21. The aortic root size is normal. 22. Normal inferior vena cava with normal inspiratory collapse consistent with estimated right atrial pressure of 5 mmHg. 23. There is no pericardial effusion. [employer] ASSISTANT: Rosa Isela Brown RDCS
[2018-12-20] MEDS ORDERED: VALPROATE SODIUM 500 MG in SODIUM CHLORIDE 0.9% 100 ML IVPB STA (12:23)
[2018-12-20] MEDS ORDERED: LACTATED RINGERS 1,000 ML IV ONE (12:47)
[2018-12-20] MEDS ORDERED: LIDOCAINE 1% INJ 10MG/ML (20 ML MDV) ONE (12:47)
[2018-12-20] MEDS ORDERED: MIDAZOLAM 2 MG/2 ML VIAL ONE (12:47)
[2018-12-20] MEDS ORDERED: PROPOFOL 10 MG/ML 20 ML VIAL IV ONE (12:47)
--- NOTE | 2018-12-20 13:04 | P.OP ---
Date of Procedure: 12/20/18 Preoperative Diagnosis: Epigastric pain GERD Postoperative Diagnosis: Peptic ulcer disease with antral ulceration Hiatal hernia Esophagitis Procedure(s) Performed: EGD Anesthesia: MAC Surgeon: Lonnie Brown Pathology: other (Antral ulcer, esophagus) Condition: stable Disposition: PACU Description of Procedure: The patient's placed on the endoscopy table in the lateral position. He received IV sedation. The gastroscope placed oropharynx and passed into the esophagus and into the stomach. Scope was then placed through the pylorus. The first and second portion of the duodenum appeared normal. Scope was then brought back the antrum and this appeared severely inflamed. There were several antral ulcers. There is no active bleeding. A ulcer area was biopsied. The scope was then retroflexed the remainder of the stomach appeared normal. There was a moderate size hiatal hernia. The GE junction was at 42 cm. The distal esophagusAppeared inflamed a biopsies performed. The proximal esophagus appeared normal. Scope was withdrawn.
[2018-12-20 13:45] VITALS: BP 135/71; PULSE 61; RESP 16; TEMP 96.8
--- NOTE | 2018-12-20 15:15 | P.DS ---
Providers Date of admission: 12/18/18 15:56 Expected date of discharge: 12/20/18 Attending physician: Raffaele Verdin Consults: 12/19/18 09:31 Consult Physician Urgent Consulting Provider: Lonnie Brown Consult Reason/Comments: coffee ground emesis / abdominal pain Do you want consulting provider notified?: Yes 12/19/18 09:46 Consult Physician Urgent Consulting Provider: Richard Sanders Consult Reason/Comments: chest pain Do you want consulting provider notified?: Yes 12/19/18 11:45 Consult Physician Routine Consulting Provider: Deniz Telles Consult Reason/Comments: AAA Do you want consulting provider notified?: Yes Primary care physician: [facility] Course: Final Diagnoses: -Acute chest pain, rule out acute coronary syndrome -Acute abdominal pain, accompanied by nausea vomiting, coffee ground emesis, EGD pending. -CAD, Ischemic cardiomyopathy, EF 20-25% with AICD, history of CABG. -Chronic renal insufficiency -Paranoid Schizophrenia. -History of marijuana abuse, nicotine abuse -Dementia -Seizure disorder -Hypothyroidism Hospital course:This is a 68-year-old gentleman with history of CAD, ischemic cardiomyopathy-ES 20-25% with an AICD, hypertension, seizure disorder, schizophrenia, has a legal guardian, [facility] at a [facility] admitted with 2 days of nausea vomiting, chest pain and abdominal pain. Patient reports that he stopped taking all of his medications recently about 10 days ago and his "pacemaker is not working". Yesterday had bilateral chest pain, nonradiating , timeframe unknown.reports chest pain has subsided now .Troponin is negative 3, EKG reporting paced rhythm, rate of 61, inferior infarct, age undetermined. Afebrile, normal WBC. This morning complains of bilateral lower quadrant abdominal pain greater in the right lower quadrant extending to right flank pain radiating to mid lower back. Coffee-ground emesis this morning. UA negative. BUN 21 creatinine 1.12(appears at baseline). T bili/LFTs within normal limits, denies cough, shortness of breath. Denies fever or chills. Denies syncope. Seizures have been controlled. Pacemaker interrogated, pacemaker placement lead placement reviewed on x-ray and cleared by cardiology. No further coffee ground emesis . F/U CBC ordered, patient declined. Patient apparently had been not taking his meds prior to admission. Depakote level subtherapeutic. Depacon 500 mg IV 1 administered in addition to patient's regular scheduled orals. Significant clinical improvement. Medication compliance reinforced. Evaluated by surgery, patient is scheduled for EGD today. [facility] will be discharged to [facility] pending EGD/results, surgical clearance with final DC recommendations, in a stable condition with her prognosis. EXAM: GENERAL: Alert & oriented X 3, no acute distress CARDIOVASCULAR: S1, S2 muffled. No murmur RESPIRATION: Breath sounds diminished in the bases. No rhonchi or crackles. No wheezing. ABDOMEN: Soft, nontender,Bowel sounds heard. PSYCHIATRY: Alert and oriented -3, mood and affect normal NERVOUS SYSTEM: Cranial N 2-12 grossly normal. Moves all 4 limbs. Diffuse weakness No focal deficits. The impression and plan of care has been dictated as directed. : I performed a history and examination of this patient, discussed the same with the dictator. I agree with the dictator's note ,documented as a scribe. Any additional findings or plans will be noted. Time taken: 35 minutes Patient Condition at Discharge: Stable Plan - Discharge Summary Discharge Rx Participant: Yes New Discharge Prescriptions: New Omeprazole [PriLOSEC] 20 mg PO AC-BID #60 cap Continue Levothyroxine Sodium [Synthroid] 75 mcg PO DAILY Escitalopram [Lexapro] 20 mg PO DAILY Divalproex [Depakote] 500 mg PO BID Ramipril [Altace] 1.25 mg PO DAILY Donepezil [Aricept] 10 mg PO DAILY hydrOXYzine HCL [Atarax] 25 mg PO TID Metoprolol Tartrate [Lopressor] 12.5 mg PO BID Aspirin EC [Ecotrin Low Dose] 81 mg PO DAILY Venlafaxine HCl [Effexor XR] 75 mg PO DAILY Simvastatin [Zocor] 20 mg PO DAILY Torsemide [Demadex] 5 mg PO DAILY Zolpidem [Ambien] 10 mg PO HS Discharge Medication List Divalproex [Depakote] 500 mg PO BID 08/18/18 [History] Donepezil [Aricept] 10 mg PO DAILY 08/18/18 [History] Escitalopram [Lexapro] 20 mg PO DAILY 08/18/18 [History] Levothyroxine Sodium [Synthroid] 75 mcg PO DAILY 08/18/18 [History] Ramipril [Altace] 1.25 mg PO DAILY 08/18/18 [History] Aspirin EC [Ecotrin Low Dose] 81 mg PO DAILY 09/08/18 [History] Metoprolol Tartrate [Lopressor] 12.5 mg PO BID 09/08/18 [History] Venlafaxine HCl [Effexor XR] 75 mg PO DAILY 09/08/18 [History] hydrOXYzine HCL [Atarax] 25 mg PO TID 09/08/18 [History] Simvastatin [Zocor] 20 mg PO DAILY 12/18/18 [History] Torsemide [Demadex] 5 mg PO DAILY 12/18/18 [History] Zolpidem [Ambien] 10 mg PO HS 12/18/18 [History] Omeprazole [PriLOSEC] 20 mg PO AC-BID #60 cap 12/20/18 [Rx] Follow up Appointment(s)/Referral(s): Raffaele Verdin MD [Primary Care Provider] - 1 Week Cristopher Martel MD [STAFF PHYSICIAN] - 12/29/18 11:30 am Deniz Telles MD [STAFF PHYSICIAN] - 01/03/19 11:00 am (follow up for AAA on CT scan) Lonnie Brown MD [STAFF PHYSICIAN] - 1 Week Patient Instructions/Handouts: Chest Pain (ED) Activity/Diet/Wound Care/Special Instructions: Pending EGD/surgical clearance and final DC recommendations
== END 2018-12-20 15:20 | disposition home or self-care (01) ==
LOC: EC 13:09 → EEVIPCON 13:09 → 1SOBS 15:56
PROVIDERS: ADMIT Family Medicine; ATTEND Family Medicine
DX: R07.89 Other chest pain (principal); R53.1 Weakness; K44.9 Diaphragmatic hernia without obstruction or gangrene; K25.9 Gastric ulcer, unspecified as acute or chronic, without hemorrhage or perforation; E03.9 Hypothyroidism, unspecified; E78.5 Hyperlipidemia, unspecified; F32.9 Major depressive disorder, single episode, unspecified; I25.10 Atherosclerotic heart disease of native coronary artery without angina pectoris; I13.0 Hypertensive heart and chronic kidney disease with heart failure and stage 1 through stage 4 chronic kidney disease, or unspecified chronic kidney disease; I25.5 Ischemic cardiomyopathy; I34.0 Nonrheumatic mitral (valve) insufficiency; I50.22 Chronic systolic (congestive) heart failure; F03.90 Unspecified dementia, unspecified severity, without behavioral disturbance, psychotic disturbance, mood disturbance, and anxiety; F20.0 Paranoid schizophrenia; G40.909 Epilepsy, unspecified, not intractable, without status epilepticus; I71.4 Abdominal aortic aneurysm, without rupture; I73.9 Peripheral vascular disease, unspecified; K21.0 Gastro-esophageal reflux disease with esophagitis; N18.9 Chronic kidney disease, unspecified; K57.30 Diverticulosis of large intestine without perforation or abscess without bleeding; Z95.810 Presence of automatic (implantable) cardiac defibrillator; Z95.1 Presence of aortocoronary bypass graft; Z95.5 Presence of coronary angioplasty implant and graft; Z87.891 Personal history of nicotine dependence; Z81.1 Family history of alcohol abuse and dependence; Z79.899 Other long term (current) drug therapy; Z79.890 Hormone replacement therapy; Z79.82 Long term (current) use of aspirin
CPT/HCPCS: 96361 ×3; 96365; 96374; 96376; 99285; 36415; 93005; 93306; 97162; 80164; 88305; 83880; 80061; 80053; 83735; 84100; 84443; 84484 ×2; 85025; 85610; 85730; 81003; 87086; 71046; 74018; 74176; 43239; G0378 ×3; J2250; J2060; J2001; J1885 ×3; J2704; C9113

== ENCOUNTER 2018-12-30 16:31 | Inpatient (IN) | payer MEDICARE, OTHER ==
--- NOTE | 2018-12-30 16:39 | ED ---
General Adult HPI - General Stated complaint: Weakness, facial numbness Time Seen by Provider: 12/30/18 16:32 - History of Present Illness Initial comments: Dictation was produced using [employer] dictation software. please excuse any gramma tical, word or spelling errors. Chief Complaint: 68-year-old male presents with 2 hours of acute onset of left facial numbness and bilateral lower extremity weakness. History of Present Illness: It is a 68-year-old male presents with the affirmation complaints. Patient has a history of CVA. States that his symptoms began acutely at approximately 2:30 PM. Patient is not taking any blood thinners. He has multiple comorbidities. Patient states he is weak both lower extremities and can't walk. He has no pain complaints at this time. Patient was brought here by EMS from a nursing home. She does not take any blood thinners. Patient does not have a history of intracranial bleed. The ROS documented in this emergency department record has been reviewed and confirmed by me. Those systems with pertinent positive or negative responses have been documented in the HPI. All other systems are other negative and/or noncontributory. PHYSICAL EXAM: General Impression: Alert and oriented x3, anxious HEENT: Normocephalic atraumatic, extra-ocular movements intact, pupils equal and reactive to light bilaterally, dry mucous membranes Cardiovascular: Heart regular rate and rhythm, S1&S2 audible, no murmurs, rubs or gallops Chest: Lungs clear to auscultation bilaterally, no rhonchi, no wheeze, no rales Abdomen: Bowel sounds present, abdomen soft, non-tender, non-distended, no o rganomegaly Musculoskeletal: Pulses present and equal in all extremities, no peripheral edema Motor: no focal deficits noted Neurological: CN II-XII grossly intact, poor effort, weakness to the left upper and lower extremities, none aphasic Skin: Intact with no visualized rashes Psych: Normal affect and mood ED course: 68-year-old male with chief complaint of 2 hours of neurologic deficit. Patient is uncooperative with physical exam. He shows very poor effort. Vital signs upon arrival are within acceptable limits. Given that patient's symptoms are within a TPA window code stroke was called. Patient given an NIH of 3 however likely secondary to poor effort. Discussed patient case with stroke Dr. Godoy. He agrees the patient that candidate for TPA. Patient given aspirin.Laboratory evaluation obtained. CBC unremarkable. Coag panel unremarkable. Metabolic panel is negative. CT of the brain shows no acute processes. There appears to be old lacunar injuries. CT angios the brain was obtained showing her there appears to be 50% stenosis of the carotid bulbs bilaterally. There appears to be crushable findings to suggest possible right internal carotid aneurysm. Imaging studies were reviewed by stroke neurologist. Patient still not a candidate for TPA. Patient is uncooperative with examination. She given aspirin. Patient be admitted to Dr. Raffaele Verdin who is willing to accept patient. EKG interpretation: Ventricular rate 71, normal sinus rhythm, MN interval 114, QS 110, QTc 471 there are old Q waves significant with prior. No MN prolongation, no QTC prolongation, no ST or T-wave changes noted. EKG compared to 12/18/2018 showing no changes. Overall, this EKG is unremarkable - Related Data Home Medications Medication Instructions Recorded Confirmed Divalproex [Depakote] 500 mg PO BID 08/18/18 12/30/18 Donepezil [Aricept] 10 mg PO DAILY 08/18/18 12/30/18 Escitalopram [Lexapro] 20 mg PO DAILY 08/18/18 12/30/18 Ramipril [Altace] 1.25 mg PO DAILY 08/18/18 12/30/18 Aspirin EC [Ecotrin Low Dose] 81 mg PO DAILY 09/08/18 12/30/18 Metoprolol Tartrate [Lopressor] 12.5 mg PO BID 09/08/18 12/30/18 Venlafaxine HCl [Effexor XR] 75 mg PO DAILY 09/08/18 12/30/18 hydrOXYzine HCL [Atarax] 25 mg PO TID 09/08/18 12/30/18 Simvastatin [Zocor] 20 mg PO DAILY 12/18/18 12/30/18 Torsemide [Demadex] 5 mg PO DAILY 12/18/18 12/30/18 Zolpidem [Ambien] 10 mg PO HS 12/18/18 12/30/18 Clopidogrel [Plavix] 75 mg PO DAILY 12/30/18 12/30/18 Ergocalciferol [Vitamin D2 50,000 unit PO Q7D 12/30/18 12/30/18 (DRISDOL)] Levothyroxine Sodium [Synthroid] 100 mcg PO DAILY 12/30/18 12/30/18 Ranitidine HCl [Zantac] 150 mg PO BID 12/30/18 12/30/18 Allergies Allergy/AdvReac Type Severity Reaction Status Date / Time morphine Allergy Anaphylaxis Verified 12/30/18 16:45 Penicillins Allergy Unknown Verified 12/30/18 16:45 Influenza Virus Vaccines AdvReac Unknown Verified 12/30/18 16:45 pneumococcal vaccine AdvReac Unknown Verified 12/30/18 16:45 Review of Systems ROS Statement: Those systems with pertinent positive or pertinent negative responses have been documented in the HPI. ROS Other: All systems not noted in ROS Statement are negative. Past Medical History Past Medical History: Coronary Artery Disease (CAD), Heart Failure, Dementia, Hyperlipidemia, Hypertension, Seizure Disorder, Syncope, Thyroid Disorder Additional Past Medical History / Comment(s): Ischemic cardiomyopathy, EF 20- 25%, last seizure about 2 yrs ago, hypothyroid.neuropathy "WHEN HE WORKED HE HAD A CRUSHING INJURY -COLLAPSED LUNGS C/T AND HAS CHRONIC BACK PAIN"" History of Any Multi-Drug Resistant Organisms: None Reported Past Surgical History: AICD, Back Surgery, Coronary Bypass/CABG, Heart Catheterization, Heart Catheterization With Stent Additional Past Surgical History / Comment(s): 1995 CABG 4 vessel in [place], has had 2"HEART CATHS/had 2 STENTS after cabg sx.pt stated they were done in [facility]. "sx on tailbone, cortisone injections, devin inguinal hernia repair Past Anesthesia/Blood Transfusion Reactions: No Reported Reaction Date of Last Stent Placement:: unk Type of Cardiac Device: AICD Device Placement Date:: ? 1995 in [facility] Past Psychological History: Anxiety, Depression, Schizoaffective Disorder, Schizophrenia Smoking Status: Former smoker Past Alcohol Use History: None Reported Past Drug Use History: Marijuana - Past Family History Mother Family Medical History: Respiratory Disorder Additional Family Medical History / Comment(s): Mother had TB Father Additional Family Medical History / Comment(s): Father was an alcoholic. Course Vital Signs 12/30/18 12/30/18 12/30/18 16:36 16:40 16:45 Temperature 98.9 F Pulse Rate 75 63 Respiratory 16 16 Rate Blood Pressure 169/84 169/84 O2 Sat by Pulse 99 100 99 Oximetry 12/30/18 12/30/18 12/30/18 16:50 17:00 17:30 Temperature Pulse Rate 75 75 75 Respiratory 16 16 16 Rate Blood Pressure 169/84 153/78 133/76 O2 Sat by Pulse 100 100 96 Oximetry 12/30/18 18:00 Temperature Pulse Rate 75 Respiratory 16 Rate Blood Pressure 139/87 O2 Sat by Pulse 98 Oximetry Medical Decision Making - Lab Data Result diagrams: 12/30/18 16:55 12/30/18 16:55 Lab Results 12/30/18 12/30/18 12/30/18 Range/Units 16:55 16:55 16:55 WBC 6.2 (3.8-10.6) k/uL RBC 4.19 L (4.30-5.90) m/uL Hgb 12.2 L (13.0-17.5) gm/dL Hct 39.4 (39.0-53.0) % MCV 93.9 (80.0-100.0) fL MCH 29.1 (25.0-35.0) pg MCHC 31.0 (31.0-37.0) g/dL RDW 16.3 H (11.5-15.5) % Plt Count 136 L (150-450) k/uL Neutrophils % 69 % Lymphocytes % 22 % Monocytes % 6 % Eosinophils % 1 % Basophils % 0 % Neutrophils # 4.3 (1.3-7.7) k/uL Lymphocytes # 1.4 (1.0-4.8) k/uL Monocytes # 0.4 (0-1.0) k/uL Eosinophils # 0.0 (0-0.7) k/uL Basophils # 0.0 (0-0.2) k/uL Anisocytosis Slight PT (9.0-12.0) sec INR (<1.2) APTT (22.0-30.0) sec Sodium 136 L (137-145) mmol/L Potassium 4.1 (3.5-5.1) mmol/L Chloride 106 (98-107) mmol/L Carbon Dioxide 23 (22-30) mmol/L Anion Gap 7 mmol/L BUN 15 (9-20) mg/dL Creatinine 1.17 (0.66-1.25) mg/dL Est GFR (CKD-EPI)AfAm 74 (>60 ml/min/1.73 sqM) Est GFR (CKD-EPI)NonAf 64 (>60 ml/min/1.73 sqM) Glucose 84 (74-99) mg/dL Calcium 9.1 (8.4-10.2) mg/dL Total Bilirubin 0.6 (0.2-1.3) mg/dL AST 27 (17-59) U/L ALT 16 L (21-72) U/L Alkaline Phosphatase 53 (38-126) U/L Total Creatine Kinase 70 (55-170) U/L CK-MB (CK-2) 0.4 (0.0-2.4) ng/mL CK-MB (CK-2) Rel Index 0.6 Troponin I <0.012 (0.000-0.034) ng/mL Total Protein 6.4 (6.3-8.2) g/dL Albumin 3.7 (3.5-5.0) g/dL 12/30/18 Range/Units 16:55 WBC (3.8-10.6) k/uL RBC (4.30-5.90) m/uL Hgb (13.0-17.5) gm/dL Hct (39.0-53.0) % MCV (80.0-100.0) fL MCH (25.0-35.0) pg MCHC (31.0-37.0) g/dL RDW (11.5-15.5) % Plt Count (150-450) k/uL Neutrophils % % Lymphocytes % % Monocytes % % Eosinophils % % Basophils % % Neutrophils # (1.3-7.7) k/uL Lymphocytes # (1.0-4.8) k/uL Monocytes # (0-1.0) k/uL Eosinophils # (0-0.7) k/uL Basophils # (0-0.2) k/uL Anisocytosis PT 11.2 (9.0-12.0) sec INR 1.1 (<1.2) APTT 25.6 (22.0-30.0) sec Sodium (137-145) mmol/L Potassium (3.5-5.1) mmol/L Chloride (98-107) mmol/L Carbon Dioxide (22-30) mmol/L Anion Gap mmol/L BUN (9-20) mg/dL Creatinine (0.66-1.25) mg/dL Est GFR (CKD-EPI)AfAm (>60 ml/min/1.73 sqM) Est GFR (CKD-EPI)NonAf (>60 ml/min/1.73 sqM) Glucose (74-99) mg/dL Calcium (8.4-10.2) mg/dL Total Bilirubin (0.2-1.3) mg/dL AST (17-59) U/L ALT (21-72) U/L Alkaline Phosphatase (38-126) U/L Total Creatine Kinase (55-170) U/L CK-MB (CK-2) (0.0-2.4) ng/mL CK-MB (CK-2) Rel Index Troponin I (0.000-0.034) ng/mL Total Protein (6.3-8.2) g/dL Albumin (3.5-5.0) g/dL Disposition Clinical Impression: Neurological deficit present Disposition: ADMITTED IP TO THIS HOSP Condition: Fair Referrals: Raffaele Verdin MD [Primary Care Provider] - 1-2 days Decision Time: 18:34
[2018-12-30] MEDS ORDERED: SODIUM CHLORIDE 0.9% 500 ML 500 ML IV STA (16:40)
[2018-12-30] MEDS ORDERED: ASPIRIN 81 MG PO STA ×2 (16:44→18:22)
--- NOTE | 2018-12-30 17:05 | CT ---
EXAMINATION TYPE: CT brain wo con for TPA DATE OF EXAM: 12/30/2018 COMPARISON: 05/01/2018 HISTORY: Left sided facial numbness CT DLP: 1129 mGycm Automated exposure control for dose reduction was used. TECHNIQUE: Standard unenhanced CT of the brain was performed. FINDINGS: Old lacunar injuries are seen of the right caudate nucleus and lentiform nucleus. These are CSF atten uated. Morgan-white matter interface is maintained. There is symmetric dominance of the peripheral sulc i and ventricular system compatible with age-related volume loss. There are few scattered foci of hyp oattenuation in the periventricular and subcortical white matter most commonly on the basis of microa ngiopathy. No suspicious extra-axial fluid collection. No acute intracranial hemorrhage, midline shif t or mass effect. Orbits are symmetric and unremarkable. Calvarium is intact. Mild mucosal thickening in the ethmoid sinuses is seen. Remaining paranasal sinuses and mastoid air cells are well aerated. IMPRESSION: NO ACUTE INTRACRANIAL PROCESS. OLD LACUNAR INJURIES, MILD BURDEN NONSPECIFIC WHITE MATTER CHANGE, AND AGE-RELATED VOLUME LOSS ARE UNCHANGED FROM THE PRIOR.
[2018-12-30 17:15] LABS: Anisocytosis Slight; Basophils % (A) 0 %; Eosinophils % (A) 1 %; HCT 39.4 % (39.0-53.0); HGB 12.2 gm/dL (13.0-17.5); Lymphocytes # (A) 1.4 k/uL (1.0-4.8); Lymphocytes % (A) 22 %; MCH 29.1 pg (25.0-35.0); MCV 93.9 fL (80.0-100.0); Mean Platelet Volume 7.8; Monocytes # (A) 0.4 k/uL (0-1.0); Monocytes % (A) 6 %; Neutrophils # (A) 4.3 k/uL (1.3-7.7); Neutrophils % (A) 69 %; Platelet Count 136 k/uL (150-450); RBC 4.19 m/uL (4.30-5.90); RDW 16.3 % (11.5-15.5); WBC 6.2 k/uL (3.8-10.6)
--- NOTE | 2018-12-30 17:23 | CT ---
EXAMINATION TYPE: CT angio head neck DATE OF EXAM: 12/30/2018 HISTORY: Left sided facial numbness. COMPARISON: CT brain of the same date CT DLP: 387.6 mGycm. Automated Exposure Control for Dose Reduction was Utilized. TECHNIQUE: CTA scan of the neck is performed with IV Contrast, patient injected with 50 mL of Isovue 370, axial images are obtained, coronal and sagittal reformatted images are reviewed. Three-D recons tructed images are created on an independent workstation and reviewed. FINDINGS: Carotid/Vascular Structures: Bolus timing is suboptimal with trace amount of contrast in the main pul monary artery rather than the aorta. However there is no gross evidence of hemodynamically significan t stenosis of the common carotid arteries. Within the carotid bulbs there appears to be approximately 50% stenosis on the right and left with approximately 50% stenosis extending into the origin of the left internal carotid artery of a short segment length of 5 mm. Within the remainder of the cervical portions of the internal carotid arteries there is no hemodynamically significant stenosis. The verte bral arteries appear codominant and patent. No evidence of dissection or aneurysm. Moderate atherosclerosis is seen of the cavernous and supraclinoid portions of the internal carotid a rteries. A tiny aneurysm is questioned of the distal right internal carotid artery on series 505 imag e 29 is a punctate focus of contrast is seen on the right although no continuity is seen with the adj acent vasculature. On the sagittal images this is questionably a small branch vessel that could be ec tatic. MRA could further evaluate this finding. There is a normal variant origin of the right p osterior cerebral artery. The left posterior communicating artery does not appear complete and theref ore the [place] is incomplete. Anterior communicating artery is patent. Right A1 segment is slightly diminutive in comparison to the left. There is also slight paucity of vasculature distally i n the branch vessels of the right anterior MCA on the left with no large vessel occlusion. Other: Scattered areas of subsegmental atelectasis and left apical bleb are incidentally seen. Post C ABG changes the chest are partially visualized. Thyroid gland appears atrophic or surgically absent a lthough no surgical clips are seen. No cervical adenopathy is appreciated. Mild to moderate degenerat adamaris changes of the spine are present. Visualized portions of the brain and calvarium are discussed on the brain CT of the same date IMPRESSION: 1. Slight paucity of distal branch vessels of the right MCA in comparison to the left with no large v essel occlusion seen. 2. Questionable punctate right lateral distal internal carotid artery pedunculated aneurysm versus br anch vessel ectasia that could be further evaluated with MRA. 3. Approximately 50% stenosis of the left internal carotid artery origin in a short segment in the chad th carotid bulbs.
[2018-12-30 17:24] LABS: Albumin 3.7 g/dL (3.5-5.0); Calcium 9.1 mg/dL (8.4-10.2); Potassium 4.1 mmol/L (3.5-5.1); Total Bilirubin 0.6 mg/dL (0.2-1.3); Total Protein 6.4 g/dL (6.3-8.2)
--- NOTE | 2018-12-30 17:27 | XR ---
EXAMINATION TYPE: XR chest 1V portable DATE OF EXAM: 12/30/2018 COMPARISON: 12/18/2018 HISTORY: Altered mental status TECHNIQUE: Single frontal view of the chest is obtained. FINDINGS: Cardia mediastinal silhouette is enlarged with post CABG changes and multilead right-sided cardiac device. Chronic interstitial prominence is noted. Diffuse osseous demineralization is seen. No new focal consolidation, pleural effusion or pneumothorax. IMPRESSION: Chronic changes with no acute cardiopulmonary process.
[2018-12-30 17:28] LABS: INR 1.1 (<1.2); Prothrombin Time 11.2 sec (9.0-12.0)
[2018-12-30 17:29] LABS: Partial Thromboplastin Time 25.6 sec (22.0-30.0)
[2018-12-30 17:31] LABS: Creatine Kinase 70 U/L (55-170)
[2018-12-30 17:42] LABS: Creatine Kinase MB 0.4 ng/mL (0.0-2.4); Troponin I <0.012 ng/mL (0.000-0.034)
[2018-12-30] MEDS: DIVALPROEX 500 MG TABLET.DR PO SCH (23:08)
[2018-12-30] MEDS: FAMOTIDINE 20 MG TAB PO SCH (23:09)
[2018-12-30] MEDS: METOPROLOL TARTRATE 12.5 MG TAB PO SCH (23:09)
[2018-12-31 01:11] LABS: Cholesterol 145 mg/dL (<200); HDL Cholesterol 43 mg/dL (40-60); LDL Cholesterol,Calculated 80 mg/dL (0-99); Triglycerides 111 mg/dL (<150)
[2018-12-31] MEDS ORDERED: LEVOTHYROXINE 100 MCG TAB PO SCH (06:30)
[2018-12-31 07:55] VITALS: BP 132/73; PULSE 61; RESP 16; TEMP 97.6
[2018-12-31] MEDS: FAMOTIDINE 20 MG TAB PO SCH (08:05)
[2018-12-31] MEDS: DIVALPROEX 500 MG TABLET.DR PO SCH (08:05)
[2018-12-31] MEDS: METOPROLOL TARTRATE 12.5 MG TAB PO SCH (08:06)
[2018-12-31] MEDS ORDERED: LISINOPRIL 5 MG TAB PO SCH (09:00)
[2018-12-31] MEDS ORDERED: DONEPEZIL 10 MG TAB PO SCH (09:00)
[2018-12-31] MEDS ORDERED: CLOPIDOGREL 75 MG TAB PO SCH (09:00)
[2018-12-31] MEDS ORDERED: ATORVASTATIN 10 MG TAB PO SCH (09:00)
[2018-12-31] MEDS ORDERED: FUROSEMIDE 10 MG TAB PO SCH (09:00)
[2018-12-31] MEDS ORDERED: ASPIRIN 325 MG TAB PO SCH (09:00)
--- NOTE | 2019-01-19 08:51 | HP ---
HISTORY AND PHYSICAL CHIEF COMPLAINT: A 68-year-old white male came in with left facial numbness, bilateral lower extremity weakness, began about 2:30 pm prior to admission and weak lower extremity, cannot walk, no other complaints. He was brought here by EMS from the alf. Vital signs reviewed. Cranial nerves are intact. HEART: S1, S2. LUNGS: Clear. GI: Soft. HEMATOLOGY: Negative Homans. PSYCH: Fair mood and affect. Alert and oriented x3. SKIN: No rash, excoriations. A 14-point review of system reviewed. Home medicines include: 1. Effexor XR. 2. Lopressor. 3. Ecotrin. 4. Lexapro. 5. Altace. 6. Aricept. 7. Depakote. 8. Zantac. 9. Synthroid. CT angiogram shows 50% blockage. Allergies are to MORPHINE, PENICILLIN. History of coronary artery disease, heart failure, dementia, dyslipidemia, hypertension, seizure disorder, syncope, hypothyroidism, ischemic cardiomyopathy, collapsed lung, CABG surgery x4 in 1995. History anxiety, depression, schizoaffective disorder. Mother, respiratory TB. His vitals were reviewed. ASSESSMENT: 1. Acute neurologic event, rule out transient ischemic attack. 2. History of coronary artery disease. 3. Hypertension. 4. Chronic obstructive pulmonary disease. 5. Seizures. Please see further orders, await Neurology consult. MMODL / IJN: [id number] /
--- NOTE | 2019-01-19 11:02 | DS ---
DISCHARGE SUMMARY DATE OF ADMISSION: 12/30/2018 DATE OF DISCHARGE: 12/31/2018 MEDICATIONS: 1. Lexapro 20 mg daily. 2. Depakote 500 b.i.d. 3. Altace 1.25 daily. 4. Aricept 10 mg daily. 5. 25 t.i.d. 6. Lopressor 12.5 b.i.d. 7. Aspirin 81 mg daily. 8. Effexor XR 75 daily. 9. Zocor 20 daily. 10.Demadex 5 mg daily. 11.Ambien 10 mg q.h.s. 12.Plavix 75 mg daily. 13.Ranitidine 150 b.i.d. 14.Vitamin D 35625 units weekly. 15.Synthroid 100 mcg daily. CONDITION: Stable. PROGNOSIS: Guarded. Patient was admitted, had a brain CT, angiography CT for abnormal sensations of his head and neck. 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 The patient was cleared and sent home in stable condition. Follow up with neurologist. MMMARVEL / MADELAINEN: [id number] /
== END 2018-12-31 10:33 | disposition left against medical advice (07) | DRG 69 ==
LOC: EC 16:31 → 3SCARD 18:26
PROVIDERS: ADMIT Family Medicine; ATTEND Family Medicine
DX: G45.9 Transient cerebral ischemic attack, unspecified (principal); I11.0 Hypertensive heart disease with heart failure; I50.9 Heart failure, unspecified; I72.0 Aneurysm of carotid artery; F25.9 Schizoaffective disorder, unspecified; G62.9 Polyneuropathy, unspecified; F03.90 Unspecified dementia, unspecified severity, without behavioral disturbance, psychotic disturbance, mood disturbance, and anxiety; J44.9 Chronic obstructive pulmonary disease, unspecified; E03.9 Hypothyroidism, unspecified; I65.22 Occlusion and stenosis of left carotid artery; R29.818 Other symptoms and signs involving the nervous system; E78.5 Hyperlipidemia, unspecified; G40.909 Epilepsy, unspecified, not intractable, without status epilepticus; I25.10 Atherosclerotic heart disease of native coronary artery without angina pectoris; I25.5 Ischemic cardiomyopathy; F32.9 Major depressive disorder, single episode, unspecified; F41.9 Anxiety disorder, unspecified; G89.29 Other chronic pain; M54.9 Dorsalgia, unspecified; R20.0 Anesthesia of skin; Z79.02 Long term (current) use of antithrombotics/antiplatelets; Z79.82 Long term (current) use of aspirin; Z79.890 Hormone replacement therapy; Z79.899 Other long term (current) drug therapy; Z86.73 Personal history of transient ischemic attack (TIA), and cerebral infarction without residual deficits; Z87.891 Personal history of nicotine dependence; Z95.1 Presence of aortocoronary bypass graft; Z95.5 Presence of coronary angioplasty implant and graft; Z95.810 Presence of automatic (implantable) cardiac defibrillator; Z88.5 Allergy status to narcotic agent; Z88.0 Allergy status to penicillin; Z88.7 Allergy status to serum and vaccine; Z81.1 Family history of alcohol abuse and dependence
CPT/HCPCS: 36415; 70450; 70496; 70498; 71045; 80053; 80061; 82550; 82553; 84484; 85025; 85610; 85730; 93005; 96360; 99285

== ENCOUNTER 2019-01-04 13:23 | Inpatient (IN) | payer MEDICARE, MEDICAID ==
--- NOTE | 2019-01-04 13:51 | ED ---
Psych HPI - General Chief Complaint: Psychiatric Symptoms Stated Complaint: Mental health,petition Time Seen by Provider: 01/04/19 13:30 Source: patient, police, RN notes reviewed Mode of arrival: ambulatory - History of Present Illness Initial Comments: This is a 68-year-old male with a history of medical problems including an AICD for any depression who is brought in by police from the senior living. He was evaluated this morning and found to be suicidal he states he would either hang himself from a tree nuts on property his family owns or push on his AICD wires until they break. He states he feels like he has nothing else live for he has multiple medical issues. He discusses this is a very [id number]-ca-grzk sort of way. He recently was evaluated for possible CVA. He believes he has tumors in his stomach and that was last seen at push him to want to kill himself. He does state there is multiple people in his family out of committed suicide in the past. He's been in senior living for approximately 1-2 days. No alcohol or drugs reported. MD Complaint: suicidal ideation, feels depressed, other - Related Data Home Medications Medication Instructions Recorded Confirmed Divalproex [Depakote] 500 mg PO BID 08/18/18 01/04/19 Donepezil [Aricept] 10 mg PO DAILY 08/18/18 01/04/19 Escitalopram [Lexapro] 20 mg PO DAILY 08/18/18 01/04/19 Ramipril [Altace] 1.25 mg PO DAILY 08/18/18 01/04/19 Aspirin EC [Ecotrin Low Dose] 81 mg PO DAILY 09/08/18 01/04/19 Metoprolol Tartrate [Lopressor] 12.5 mg PO BID 09/08/18 01/04/19 Venlafaxine HCl [Effexor XR] 75 mg PO DAILY 09/08/18 01/04/19 hydrOXYzine HCL [Atarax] 25 mg PO TID 09/08/18 01/04/19 Simvastatin [Zocor] 20 mg PO DAILY 12/18/18 01/04/19 Torsemide [Demadex] 5 mg PO DAILY 12/18/18 01/04/19 Zolpidem [Ambien] 10 mg PO HS 12/18/18 01/04/19 Clopidogrel [Plavix] 75 mg PO DAILY 12/30/18 01/04/19 Ergocalciferol [Vitamin D2 50,000 unit PO Q7D 12/30/18 01/04/19 (DRISDOL)] Levothyroxine Sodium [Synthroid] 100 mcg PO DAILY 12/30/18 01/04/19 Ranitidine HCl [Zantac] 150 mg PO BID 12/30/18 01/04/19 Allergies Allergy/AdvReac Type Severity Reaction Status Date / Time morphine Allergy Anaphylaxis Verified 01/04/19 13:29 Penicillins Allergy Unknown Verified 01/04/19 13:29 Influenza Virus Vaccines AdvReac Unknown Verified 01/04/19 13:29 pneumococcal vaccine AdvReac Unknown Verified 01/04/19 13:29 Review of Systems ROS Statement: Those systems with pertinent positive or pertinent negative responses have been documented in the HPI. ROS Other: All systems not noted in ROS Statement are negative. Past Medical History Past Medical History: Coronary Artery Disease (CAD), Heart Failure, Dementia, Hyperlipidemia, Hypertension, Seizure Disorder, Syncope, Thyroid Disorder Additional Past Medical History / Comment(s): Ischemic cardiomyopathy, EF 20- 25%, last seizure about 2 yrs ago, hypothyroid.neuropathy "WHEN HE WORKED HE HAD A CRUSHING INJURY -COLLAPSED LUNGS C/T AND HAS CHRONIC BACK PAIN"" pt states he is schizophrenic/bipolar. History of Any Multi-Drug Resistant Organisms: None Reported Past Surgical History: AICD, Back Surgery, Coronary Bypass/CABG, Heart Catheterization, Heart Catheterization With Stent Additional Past Surgical History / Comment(s): 1995 CABG 4 vessel in [place], has had 2"HEART CATHS/had 2 STENTS after cabg sx.pt stated they were done in [facility]. "sx on tailbone, cortisone injections, devin inguinal hernia repair Past Anesthesia/Blood Transfusion Reactions: No Reported Reaction Date of Last Stent Placement:: unk Type of Cardiac Device: AICD Device Placement Date:: ? 1995 in [facility] Past Psychological History: Anxiety, Depression, Schizoaffective Disorder, Schizophrenia Smoking Status: Former smoker Past Alcohol Use History: None Reported Past Drug Use History: Marijuana - Past Family History Mother Family Medical History: Respiratory Disorder Additional Family Medical History / Comment(s): Mother had TB Father Additional Family Medical History / Comment(s): Father was an alcoholic. General Exam - General Exam Comments Initial Comments: Is a well-developed sec appearing male who is awake alert oriented 3 Limitations: no limitations General appearance: alert, in no apparent distress Head exam: Present: atraumatic, normocephalic, normal inspection Eye exam: Present: normal appearance, PERRL, EOMI. Absent: scleral icterus, conjunctival injection, periorbital swelling ENT exam: Present: normal exam, mucous membranes moist Neck exam: Present: normal inspection. Absent: tenderness, meningismus, lymphadenopathy Respiratory exam: Present: normal lung sounds bilaterally. Absent: respiratory distress, wheezes, rales, rhonchi, stridor Cardiovascular Exam: Present: regular rate, normal rhythm, normal heart sounds. Absent: systolic murmur, diastolic murmur, rubs, gallop, clicks GI/Abdominal exam: Present: soft, normal bowel sounds. Absent: distended, tenderness, guarding, rebound, rigid Extremities exam: Present: normal inspection, full ROM, normal capillary refill. Absent: tenderness, pedal edema, joint swelling, calf tenderness Back exam: Present: normal inspection Neurological exam: Present: alert, oriented X3, CN II-XII intact Psychiatric exam: Present: depressed, flat affect, suicidal ideation Skin exam: Present: warm, dry, intact, normal color. Absent: rash Course Vital Signs 01/04/19 01/04/19 13:25 19:19 Temperature 98.1 F 98.7 F Pulse Rate 72 76 Respiratory 20 18 Rate Blood Pressure 135/79 173/93 O2 Sat by Pulse 98 99 Oximetry - Reevaluation(s) Reevaluation #1: 01/04/19 13:50 I did review the accompanying petition Medical Decision Making - Medical Decision Making The patient was evaluated by psychiatric service after being medically cleared patient will be admitted and treated inpatient for depression and suicidal ideation. - Lab Data Result diagrams: 01/04/19 14:33 01/04/19 14:33 Lab Results 01/04/19 01/04/19 01/04/19 Range/Units 14:33 14:33 14:33 WBC 5.8 (3.8-10.6) k/uL RBC 4.71 (4.30-5.90) m/uL Hgb 13.8 (13.0-17.5) gm/dL Hct 43.9 (39.0-53.0) % MCV 93.3 (80.0-100.0) fL MCH 29.4 (25.0-35.0) pg MCHC 31.5 (31.0-37.0) g/dL RDW 16.0 H (11.5-15.5) % Plt Count 162 (150-450) k/uL Neutrophils % 56 % Lymphocytes % 35 % Monocytes % 5 % Eosinophils % 1 % Basophils % 1 % Neutrophils # 3.2 (1.3-7.7) k/uL Lymphocytes # 2.0 (1.0-4.8) k/uL Monocytes # 0.3 (0-1.0) k/uL Eosinophils # 0.1 (0-0.7) k/uL Basophils # 0.0 (0-0.2) k/uL Anisocytosis Slight Sodium 140 (137-145) mmol/L Potassium 4.8 (3.5-5.1) mmol/L Chloride 110 H (98-107) mmol/L Carbon Dioxide 23 (22-30) mmol/L Anion Gap 7 mmol/L BUN 19 (9-20) mg/dL Creatinine 1.02 (0.66-1.25) mg/dL Est GFR (CKD-EPI)AfAm 88 (>60 ml/min/1.73 sqM) Est GFR (CKD-EPI)NonAf 76 (>60 ml/min/1.73 sqM) Glucose 96 (74-99) mg/dL Calcium 9.6 (8.4-10.2) mg/dL Magnesium 2.0 (1.6-2.3) mg/dL Total Bilirubin 1.1 (0.2-1.3) mg/dL AST 37 (17-59) U/L ALT 20 L (21-72) U/L Alkaline Phosphatase 52 (38-126) U/L Ammonia (<30) umol/L Total Creatine Kinase 77 (55-170) U/L CK-MB (CK-2) 0.6 (0.0-2.4) ng/mL CK-MB (CK-2) Rel Index 0.8 Troponin I <0.012 (0.000-0.034) ng/mL Total Protein 7.7 (6.3-8.2) g/dL Albumin 4.4 (3.5-5.0) g/dL Amylase 127 H (30-110) U/L Lipase 197 (23-300) U/L Urine Opiates Screen (NotDetected) Ur Oxycodone Screen (NotDetected) Urine Methadone Screen (NotDetected) Ur Propoxyphene Screen (NotDetected) Ur Barbiturates Screen (NotDetected) U Tricyclic Antidepress (NotDetected) Ur Phencyclidine Scrn (NotDetected) Ur Amphetamines Screen (NotDetected) U Methamphetamines Scrn (NotDetected) U Benzodiazepines Scrn (NotDetected) Urine Cocaine Screen (NotDetected) U Marijuana (THC) Screen (NotDetected) 01/04/19 01/04/19 Range/Units 14:50 15:07 WBC (3.8-10.6) k/uL RBC (4.30-5.90) m/uL Hgb (13.0-17.5) gm/dL Hct (39.0-53.0) % MCV (80.0-100.0) fL MCH (25.0-35.0) pg MCHC (31.0-37.0) g/dL RDW (11.5-15.5) % Plt Count (150-450) k/uL Neutrophils % % Lymphocytes % % Monocytes % % Eosinophils % % Basophils % % Neutrophils # (1.3-7.7) k/uL Lymphocytes # (1.0-4.8) k/uL Monocytes # (0-1.0) k/uL Eosinophils # (0-0.7) k/uL Basophils # (0-0.2) k/uL Anisocytosis Sodium (137-145) mmol/L Potassium (3.5-5.1) mmol/L Chloride (98-107) mmol/L Carbon Dioxide (22-30) mmol/L Anion Gap mmol/L BUN (9-20) mg/dL Creatinine (0.66-1.25) mg/dL Est GFR (CKD-EPI)AfAm (>60 ml/min/1.73 sqM) Est GFR (CKD-EPI)NonAf (>60 ml/min/1.73 sqM) Glucose (74-99) mg/dL Calcium (8.4-10.2) mg/dL Magnesium (1.6-2.3) mg/dL Total Bilirubin (0.2-1.3) mg/dL AST (17-59) U/L ALT (21-72) U/L Alkaline Phosphatase (38-126) U/L Ammonia <9 (<30) umol/L Total Creatine Kinase (55-170) U/L CK-MB (CK-2) (0.0-2.4) ng/mL CK-MB (CK-2) Rel Index Troponin I (0.000-0.034) ng/mL Total Protein (6.3-8.2) g/dL Albumin (3.5-5.0) g/dL Amylase (30-110) U/L Lipase (23-300) U/L Urine Opiates Screen Not Detected (NotDetected) Ur Oxycodone Screen Not Detected (NotDetected) Urine Methadone Screen Not Detected (NotDetected) Ur Propoxyphene Screen Not Detected (NotDetected) Ur Barbiturates Screen Not Detected (NotDetected) U Tricyclic Antidepress Not Detected (NotDetected) Ur Phencyclidine Scrn Not Detected (NotDetected) Ur Amphetamines Screen Not Detected (NotDetected) U Methamphetamines Scrn Not Detected (NotDetected) U Benzodiazepines Scrn Not Detected (NotDetected) Urine Cocaine Screen Not Detected (NotDetected) U Marijuana (THC) Screen Detected H (NotDetected) - Radiology Data Radiology results: report reviewed (I did review the imaging and report no acute findings), image reviewed Disposition Clinical Impression: Depression, Suicidal ideation Disposition: TRANSFER TO PSYCH HOSP/UNIT Condition: Fair Referrals: Raffaele Verdin MD [Primary Care Provider] - 1-2 days
[2019-01-04 14:57] LABS: Anisocytosis Slight; Basophils % (A) 1 %; Eosinophils # (A) 0.1 k/uL (0-0.7); Eosinophils % (A) 1 %; HCT 43.9 % (39.0-53.0); HGB 13.8 gm/dL (13.0-17.5); Lymphocytes % (A) 35 %; MCH 29.4 pg (25.0-35.0); MCHC 31.5 g/dL (31.0-37.0); MCV 93.3 fL (80.0-100.0); Mean Platelet Volume 7.2; Monocytes # (A) 0.3 k/uL (0-1.0); Monocytes % (A) 5 %; Neutrophils # (A) 3.2 k/uL (1.3-7.7); Neutrophils % (A) 56 %; Platelet Count 162 k/uL (150-450); RBC 4.71 m/uL (4.30-5.90); WBC 5.8 k/uL (3.8-10.6)
--- NOTE | 2019-01-04 15:03 | CT ---
EXAMINATION TYPE: CT brain wo con DATE OF EXAM: 01/04/2019 COMPARISON: 12/30/2018 INDICATION: Altered mental status. DLP: 1145.4 mGycm, Automated exposure control for dose reduction was used. CONTRAST: None CT of the brain is performed utilizing 3 mm thick sections through the posterior fossa and 3 mm thick sections through the remaining calvarium. Study is performed within 24 hours of arrival to the hosp ital. No abnormal hyperdensity is present to suggest an acute intracranial hemorrhage. No mass lesion is evident. No acute infarcts are evident. Old lacunar infarct within the right caudate head is likely present. T his was present previously Ventricles and sulci are appropriate for the patient age. Paranasal sinuses and mastoid air cells within the [id number] are clear. IMPRESSIONS: 1. No acute intracranial process. 2. Probable old lacunar infarct right caudate head.
--- NOTE | 2019-01-04 15:04 | XR ---
EXAMINATION TYPE: XR chest 2V DATE OF EXAM: 01/04/2019 COMPARISON: 12/30/2018 HISTORY: Cough, hypertension, heart failure and prior CABG TECHNIQUE: Frontal and lateral views of the chest are obtained. FINDINGS: Pulmonary hyperinflation of underlying COPD is again seen. There is no focal air space opa city, pleural effusion, or pneumothorax seen. Post CABG changes the chest and multilead right-sided cardiac device are again noted. The cardiac silhouette size is within normal limits. There is mild generalized osseous demineralization. The osseous structures are intact. IMPRESSION: Chronic findings with no acute cardiopulmonary process.
[2019-01-04 15:09] LABS: Albumin 4.4 g/dL (3.5-5.0); Calcium 9.6 mg/dL (8.4-10.2); Total Bilirubin 1.1 mg/dL (0.2-1.3); Total Protein 7.7 g/dL (6.3-8.2)
[2019-01-04 15:13] LABS: Potassium 4.8 mmol/L (3.5-5.1)
[2019-01-04 15:17] LABS: Creatine Kinase 77 U/L (55-170)
[2019-01-04 15:31] LABS: Creatine Kinase MB 0.6 ng/mL (0.0-2.4); Troponin I <0.012 ng/mL (0.000-0.034)
[2019-01-04 15:56] LABS: Amphetamine Screen,Urine Not Detected (NotDetected); Barbiturate Screen,Urine Not Detected (NotDetected); Benzodiazepines Screen,Urine Not Detected (NotDetected); Cocaine Screen,Urine Not Detected (NotDetected); Methadone Screen, Urine Not Detected (NotDetected); Opiate Screen,Urine Not Detected (NotDetected); Oxycodone Screen, Urine Not Detected (NotDetected); Phencyclidine Screen,Urine Not Detected (NotDetected); Tricyclic Antidepressant,Urine Not Detected (NotDetected); Urn Cannabinoid Scrn Detected (NotDetected)
[2019-01-04] MEDS ORDERED: MAG HYDROX/AL HYDROX/SIMETH 30 ML CUP PO PRN (20:45)
[2019-01-04] MEDS ORDERED: MAGNESIUM HYDROXIDE 2,400 MG/10 ML CUP PO PRN (20:45)
[2019-01-04] MEDS ORDERED: ZIPRASIDONE 20 MG VIAL IM PRN (20:45)
[2019-01-04] MEDS ORDERED: hydrOXYzine HCL 25 MG TAB PO PRN (20:50)
[2019-01-04] MEDS: FAMOTIDINE 20 MG TAB PO SCH (21:20)
[2019-01-04] MEDS: METOPROLOL TARTRATE 25 MG TAB PO SCH (21:20)
[2019-01-04] MEDS: DIVALPROEX 500 MG TABLET.DR PO SCH (21:20)
[2019-01-04 22:36] VITALS: BMI 18.6
--- NOTE | 2019-01-04 22:53 | CT ---
EXAM: CT Abdomen Without Intravenous Contrast CLINICAL HISTORY: Severe abdominal pain TECHNIQUE: Axial computed tomography images of the abdomen without intravenous contrast. CTDI is 9.2 mGy and DLP is 287 mGy-cm. This CT exam was performed using one or more of the following dose reduction techniques: automated exposure control, adjustment of the mA and/or kV according to patient size, and/or use of iterative reconstruction technique. COMPARISON: 12/19/18 FINDINGS: Lung bases: Unremarkable. No mass. No consolidation. Liver: Unremarkable. Gallbladder and bile ducts: Unremarkable. No calcified stones. No ductal dilation. Pancreas: Unremarkable. No ductal dilation. Spleen: Unremarkable. No splenomegaly. Adrenals: Unremarkable. No mass. Kidneys and ureters: Unchanged the prior study No obstructing stones. No hydronephrosis. Stomach and bowel: No obstruction. No mucosal thickening. The appendix is unremarkable Intraperitoneal space: Unremarkable. No free air. No significant fluid collection. Bones/joints: No acute fracture. No dislocation. Soft tissues: Unremarkable. Vasculature: Stable appearance to abdominal aortic aneurysm unchanged to prior study Lymph nodes: Unremarkable. No enlarged lymph nodes. IMPRESSION: No acute abnormality. Stable appearance to abdominal aortic aneurysm compared to prior study. No significant change compared to the prior study
[2019-01-05] MEDS: LORazepam 1 MG TAB PO PRN ×2 (00:31→22:01)
[2019-01-05] MEDS ORDERED: VENLAFAXINE HCL ER 75 MG CAP PO SCH (09:00)
[2019-01-05] MEDS: LEVOTHYROXINE 100 MCG TAB PO SCH (09:26)
[2019-01-05] MEDS: TORSEMIDE 20 MG TAB PO SCH (09:26)
[2019-01-05] MEDS: FAMOTIDINE 20 MG TAB PO SCH ×2 (09:26→20:13)
[2019-01-05] MEDS: ASPIRIN 81 MG PO SCH (09:27)
[2019-01-05] MEDS: CLOPIDOGREL 75 MG TAB PO SCH (09:27)
[2019-01-05] MEDS: LISINOPRIL 5 MG TAB PO SCH (09:27)
[2019-01-05] MEDS: METOPROLOL TARTRATE 25 MG TAB PO SCH ×2 (09:27→20:13)
[2019-01-05] MEDS: DIVALPROEX 500 MG TABLET.DR PO SCH ×2 (09:27→20:12)
[2019-01-05] MEDS: ATORVASTATIN 10 MG TAB PO SCH (09:27)
[2019-01-05] MEDS: NICOTINE 7MG/24HR PATCH TRANSDERM SCH (09:44)
--- NOTE | 2019-01-05 12:27 | CONS ---
CONSULTATION A 68-year-old white male in the psychiatric feng for visual and auditory hallucinations, brought in from the police in the care home. Suicidal either hang himself from the tree or push on his AICD wires into the brake. [place] he has nothing left for multiple issues. He believes he has tumors in his stomach wants to push him out or kill himself. Multiple suicides in his family. He has been in care home 1-2 days. He is depressed, suicidal ideations. HOME MEDICATIONS: Include Depakote 500 b.i.d., Aricept 10 mg daily, Lexapro 20 mg daily, aspirin 81 mg daily, Lopressor 12.5 b.i.d., Zocor 20 daily, Demadex 5 mg daily, Ambien 10 at night, Plavix 75 daily, Synthroid 100 mcg daily, Zantac 150 b.i.d. ALLERGIES: MORPHINE, PENICILLIN. PAST MEDICAL HISTORY: Coronary artery disease, heart failure, dementia, dyslipidemia, hypertension, seizure disorder, syncope, hypothyroidism, ischemic cardiomyopathy, ejection fraction 20%-25%, hypothyroid, chronic back pain since suppression injury years ago, schizophrenic, bipolar, he has got an AICD, back surgery, CABG surgery, heart catheterizations with stents, bilateral inguinal hernia repair. SOCIAL HISTORY: Former smoker. He does marijuana. No alcohol. FAMILY HISTORY: Mother respiratory disorder, TB. Father, alcoholic. He is a disheveled elderly male, looks his stated age. He has given appropriate answers. CARDIOVASCULAR: S1-S2. LUNGS: Show wheezes x4, mild. ABDOMEN: Distended but soft. No mass, organomegaly. CARDIAC: Regular rate and rhythm. GI: Normal bowel sounds. EXTREMITIES: No cyanosis, clubbing, edema. BACK: Normal inspection. SKIN: Warm, dry intact. Temp 98.7, respiratory 16-20, pulse 72-76, O2 is 98% to 99%, blood pressure 130s, 170s/70s to 90s. ASSESSMENT: 1. Suicidal ideation, schizophrenia, bipolar, depression. 2. Acute abdominal pain, started this morning for unclear etiology. CAT scan is negative for any obstructive abdomen or serious abdominal disease. 3. Hypothyroid with high TSH. I believe he appears noncompliant with his medications as his TSH remains high. Please see further orders summary. MMODL / IJN: [id number] /
[2019-01-05 14:27] LABS: Hemoglobin A1C 5.3 % (4.0-6.0)
[2019-01-05] MEDS: PALIPERIDONE 6 MG TAB.ER.24 PO SCH (20:12)
--- NOTE | 2019-01-05 23:10 | HP ---
HISTORY AND PHYSICAL DATE OF SERVICE: 01/05/2019. IDENTIFYING DATA: This patient is a 68-year-old male, he resides in a custodial. He was taken into custody and referred from prison. CHIEF COMPLAINT: The patient was depressed. He was making threatening gestures toward others including slashing with a straight razor in a public setting. He has visual hallucinations. HISTORY OF PRESENT ILLNESS: The patient was the primary source of history and gave very limited information. He stated that he was a [place] and had multiple experiences of killing, which caused him to develop flashbacks, hallucinations and continued behavior disturbance. It is unclear of the accuracy of his report. His current situation is that apparently he was in a public setting, he had a straight razor and was making slashing gestures with that. He was picked up by police. Records made documentation that he has felony charges pending. He apparently had been on psychotropic medications, though had stopped taking medications 1 month ago. He said that for the past 2-1/2 months he has been seeing shadows. He says a character named "Tyshawn" which apparently is a reference to the cartoon character, Tyshawn the ghost, comes into his head and causes him to do things. He said that Tyshawn took over him when he was in [place]. He said of late Tyshawn has been coming into his head as well. He notes that for the past 2-1/2 months he has been seeing shadows and that the shadows can be threatening to him. He was very much focused on the idea that he has tumors in his stomach. Apparently when he was in prison he was making statements that he would hang himself. He also talked about pulling out the wires from an ICD and that he would use that to electrocute people. He had a recent medical admission December 19 under the care of Dr. Verdin for nausea, vomiting, chest pain and abdominal pain. There were no acute findings identified during his medical hospitalization. The patient has had a diagnosis of schizophrenia. He also has a diagnosis of dementia, seizure disorder, hypothyroidism, and marijuana abuse as other relevant issues affecting his current problems. Current psychotropic medications include Lexapro 20 mg a day, Effexor 75 mg a day, Ambien 10 mg at bedtime. He also was on Depakote 500 mg twice a day for seizure disorder, Aricept 10 mg a day for diagnosis of dementia and Synthroid 75 mcg a day for hypothyroidism. The patient did not provide any information about his current functioning. He did not provide much more information in regard to questions regarding thought disorder, posttraumatic stress disorder, anxiety or panic disorder. Record did document his making a number of delusional statements such as hearing and smelling people. He did report that he was feeling paranoid, though did not provide detail. There was some indication that he was angry at his sister and may have made a threat to harm her. He is admitted for further evaluation. SUBSTANCE USE HISTORY: The only information available is that he smokes marijuana regularly. PAST MEDICAL HISTORY AND REVIEW OF SYSTEMS: As per medical consultation of Dr. Verdin. FAMILY AND SOCIAL HISTORY: No information was provided. MENTAL STATUS EXAM: Patient gave fair eye contact at best. Psychomotor activity was somewhat restless. He answered questions with brief responses for the most part, his answers were tangential and mostly not connected to questions asked. His affect was intense at times. He did smile and seemed to make some humorous comments in the midst of expressing some distress about his situation of being in the hospital. His mood was dysphoric. He was moderately distressed. He was making delusional statements. He was oriented to his circumstances and recent events. He did make an effort to answer formal cognitive questions. PHYSICAL EXAM: As per Dr. Verdin. ASSESSMENT: This 68-year-old male is diagnosed with schizophrenia with acute exacerbation. Precipitating factors are unclear. The patient did not provide any information in regards to his general mental health care. Strengths include his willingness to engage to some extent in treatment and that he has done so in the past. Weaknesses includes current noncompliance with medications and delusions. DIAGNOSIS: 1. Schizophrenia with acute exacerbation. 2. Acute abdominal pain. 3. Hypothyroidism with elevated TSH and noncompliance with thyroid replacement therapy. RECOMMENDATIONS: Patient will be admitted for comprehensive medical psychiatric and psychosocial evaluation. Will engage the patient in individual and group therapeutic activities. I will increase the patient's Effexor from 75 mg a day up to 150 mg a day. I will start the patient on Invega 6 mg a day for psychosis. I reviewed medication issues with the patient. We will focus on stabilization and discharge planning. MMSIVAL / MADELAINEN: [id number] /
[2019-01-06] MEDS: LEVOTHYROXINE 100 MCG TAB PO SCH (06:12)
[2019-01-06] MEDS: VENLAFAXINE HCL ER 150 MG CAP PO SCH (08:53)
[2019-01-06] MEDS: FAMOTIDINE 20 MG TAB PO SCH ×2 (08:53→22:00)
[2019-01-06] MEDS: TORSEMIDE 20 MG TAB PO SCH (08:53)
[2019-01-06] MEDS: DIVALPROEX 500 MG TABLET.DR PO SCH ×2 (08:53→22:00)
[2019-01-06] MEDS: ATORVASTATIN 10 MG TAB PO SCH (08:54)
[2019-01-06] MEDS: PALIPERIDONE 6 MG TAB.ER.24 PO SCH (08:54)
[2019-01-06] MEDS: CLOPIDOGREL 75 MG TAB PO SCH (08:54)
[2019-01-06] MEDS: ASPIRIN 81 MG PO SCH (08:54)
[2019-01-06] MEDS: METOPROLOL TARTRATE 25 MG TAB PO SCH ×2 (08:56→22:00)
[2019-01-06] MEDS: LISINOPRIL 5 MG TAB PO SCH (08:56)
[2019-01-06] MEDS: NICOTINE 7MG/24HR PATCH TRANSDERM SCH (09:00)
--- NOTE | 2019-01-06 20:30 | PN ---
PROGRESS NOTE DATE OF SERVICE: 01/06/2019. CHIEF COMPLAINT: The patient was depressed. He was making threatening gestures towards others including slashing with a straight razor in a public setting. He has visual hallucinations. INTERVAL HISTORY: The patient has been doing fair. He had a quiet evening last night. He will come out in the day area. He will interact a little with others. Mostly he will sit quietly to watch TV. He slept fairly well last night. Today he has been up. He again comes out in the day area. He attended 1 group at the start of the day, though has not been to other groups today. He has a few complaints today. He seems to be in a fairly good mood. He made reference to some of the stomach problems he thought he was having. When I indicated that Dr. Verdin had stated that he did not have stomach tumors and that there was no clear pathology which also was confirmed by his abdominal CT, he seemed somewhat surprised with this. He said overall he was feeling somewhat better in his mood. He had a better outlook. He thought the medications were helping. He was not having significant problems with anxiety or down mood. He tolerates his psychotropic medications. MENTAL STATUS: Patient gave fairly good eye contact. He was somewhat restless. He had a mild tremor. Answered questions with direct responses. His thoughts were clear. His affect was a little constricted. He smiled some. He had a friendly manner. His mood was quiet, though not clearly down or depressed. He did not appear to be distressed. ASSESSMENT: I will continue the current diagnosis and treatment plan. I will continue psychotropic medications the same. The patient appears to be doing somewhat better overall. We will focus on stabilization and discharge planning. MMODL / IJN: [id number] /
[2019-01-06] MEDS: LORazepam 1 MG TAB PO PRN (23:46)
[2019-01-07] MEDS: LEVOTHYROXINE 100 MCG TAB PO SCH (06:13)
[2019-01-07] MEDS: ASPIRIN 81 MG PO SCH (10:07)
[2019-01-07] MEDS: ATORVASTATIN 10 MG TAB PO SCH (10:07)
[2019-01-07] MEDS: CLOPIDOGREL 75 MG TAB PO SCH (10:08)
[2019-01-07] MEDS: DIVALPROEX 500 MG TABLET.DR PO SCH ×2 (10:08→22:28)
[2019-01-07] MEDS: FAMOTIDINE 20 MG TAB PO SCH ×2 (10:08→22:29)
[2019-01-07] MEDS: METOPROLOL TARTRATE 25 MG TAB PO SCH ×2 (10:09→22:28)
[2019-01-07] MEDS: LISINOPRIL 5 MG TAB PO SCH (10:09)
[2019-01-07] MEDS: NICOTINE 7MG/24HR PATCH TRANSDERM SCH (10:10)
[2019-01-07] MEDS: PALIPERIDONE 6 MG TAB.ER.24 PO SCH (10:10)
[2019-01-07] MEDS: TORSEMIDE 20 MG TAB PO SCH (10:11)
[2019-01-07] MEDS: VENLAFAXINE HCL ER 150 MG CAP PO SCH (10:12)
--- NOTE | 2019-01-07 20:22 | PN ---
PROGRESS NOTE DATE OF SERVICE: 01/07/2019 CHIEF COMPLAINT: The patient was depressed. He was making threatening gestures towards others including slashing with a straight razor in a public setting. He has visual hallucinations. INTERVAL HISTORY: Patient has been doing fair. He had a quiet evening last night. He comes out in the day area. He pays some attention to things going on around him. He does not interact too much with others. He slept fairly well last night. Today he has been up. He actually made some effort at walking a few different times during the day. He does not attend groups. He seemed to be less concerned about GI issues compared to what he was saying in the last 2 days, where he was very focused on the idea of stomach tumors and other problems. He has had no bowel issues. He has good appetite. He says his mood is improving. He tolerates his psychotropic medications. MENTAL STATUS: Patient gave fairly good eye contact. Psychomotor activity was slowed. Speech was monotone. He answered questions appropriately. His thoughts were clear. He answered questions with brief responses. His affect was a little blunted. He showed a little more range of emotional response. He was a little more animated overall. His mood was quiet though not clearly down or depressed. He did not appear to be significantly distressed. There was no indication of thought disorder. Cognition was clear. ASSESSMENT: I will continue the current diagnosis and treatment plan. I will continue psychotropic medications the same. I will order a Depakote level and urinalysis. The urinalysis Dr. Solis ordered so far has not been obtained. We will continue to focus on stabilization and discharge planning. MMODL / IJN: [id number] /
[2019-01-07] MEDS: LORazepam 1 MG TAB PO PRN (22:41)
[2019-01-08] MEDS: LEVOTHYROXINE 100 MCG TAB PO SCH (06:24)
[2019-01-08] MEDS: METOPROLOL TARTRATE 25 MG TAB PO SCH ×2 (09:49→19:23)
[2019-01-08] MEDS: TORSEMIDE 20 MG TAB PO SCH (09:50)
[2019-01-08] MEDS: ASPIRIN 81 MG PO SCH (09:50)
[2019-01-08] MEDS: ATORVASTATIN 10 MG TAB PO SCH (09:50)
[2019-01-08] MEDS: FAMOTIDINE 20 MG TAB PO SCH ×2 (09:50→19:23)
[2019-01-08] MEDS: CLOPIDOGREL 75 MG TAB PO SCH (09:50)
[2019-01-08] MEDS: PALIPERIDONE 6 MG TAB.ER.24 PO SCH (09:51)
[2019-01-08] MEDS: VENLAFAXINE HCL ER 150 MG CAP PO SCH (09:52)
[2019-01-08] MEDS: DIVALPROEX 500 MG TABLET.DR PO SCH ×2 (09:52→19:23)
[2019-01-08] MEDS: LISINOPRIL 5 MG TAB PO SCH (09:52)
[2019-01-08] MEDS: NICOTINE 7MG/24HR PATCH TRANSDERM SCH (09:52)
--- NOTE | 2019-01-08 16:50 | PN ---
PROGRESS NOTE DATE OF SERVICE: 01/08/2019. CHIEF COMPLAINT: The patient was depressed. He was making threatening gestures towards others including slashing with a straight razor in a public setting. He has visual hallucinations. INTERVAL HISTORY: The patient has been doing fairly well. He had a quiet evening last night. He comes out. He will wheel himself around the unit. On occasion, he will do some walking. He generally seems to have a reasonable mood. He will interact a little with others. He slept well last night. Today he has been up. He has not been attending groups today. He has no specific complaints. He feels that his mood is better. He asked a few questions about discharge planning issues. He tolerates his psychotropic medications. MENTAL STATUS: Patient gave fairly good eye contact. Psychomotor activity was slowed. Speech was monotone. He answered questions with brief responses. His thoughts were clear. His affect was a little blunted. He had a quiet calm manner. He did not appear to be distressed at all. His mood was even. ASSESSMENT: I will continue the current diagnosis and treatment plan. I will continue psychotropic medications the same. Patient appears to be making progress. We will continue to focus on stabilization and discharge planning. MMODL / IJN: [id number] /
[2019-01-08] MEDS ORDERED: DIVALPROEX 500 MG TABLET.DR PO SCH (23:00)
[2019-01-09] MEDS: LEVOTHYROXINE 100 MCG TAB PO SCH (05:54)
[2019-01-09] MEDS: ATORVASTATIN 10 MG TAB PO SCH (10:46)
[2019-01-09] MEDS: TORSEMIDE 20 MG TAB PO SCH (10:47)
[2019-01-09] MEDS: DIVALPROEX 250 MG TABLET.DR PO SCH (10:47)
[2019-01-09] MEDS: CLOPIDOGREL 75 MG TAB PO SCH (10:47)
[2019-01-09] MEDS: VENLAFAXINE HCL ER 150 MG CAP PO SCH (10:47)
[2019-01-09] MEDS: PALIPERIDONE 6 MG TAB.ER.24 PO SCH (10:47)
[2019-01-09] MEDS: FAMOTIDINE 20 MG TAB PO SCH ×2 (10:47→22:00)
[2019-01-09] MEDS: LISINOPRIL 5 MG TAB PO SCH (10:48)
[2019-01-09] MEDS: METOPROLOL TARTRATE 25 MG TAB PO SCH ×2 (10:48→21:49)
[2019-01-09] MEDS: NICOTINE 7MG/24HR PATCH TRANSDERM SCH (10:48)
[2019-01-09] MEDS: ASPIRIN 81 MG PO SCH (10:54)
[2019-01-09 10:56] LABS: T4, Free (Free Thyroxine) 1.27 ng/dL (0.78-2.19)
--- NOTE | 2019-01-09 13:11 | P.PN ---
Progress Note - Text Progress Note Date: 01/09/19 Interval history a review of history on 01/09/2019: Chart reviewed and discussed in team this meeting along with nursing staff and social work. This is a 68-year-old male who resides in a long term and was taken into custody [facility]. Chief complaint was that he was depressed he was making threatening gestures towards others including slashing with a straight razor in a public setting. He had visual hallucinations. History of present illness indicates that he was in [place] and has had multiple experiences of killing which caused him develop flashbacks hallucinations. His current situation and he was apparently was in a public setting and a straight razor and was making slashing gestures with that. He was picked up by the police. Records indicate he had felony charges pending. He apparently had been on psychotropic medications and stopped the medications ab out a month ago. He says he has a character named "Tyshawn" which apparently is a reference to the cartoon character Tyshawn the goals who comes into his head and caused him to do things. Of course he smokes marijuana daily. Mental status examination: This is a 68-year-old male who looks older than his stated age and makes fairly good eye contact. Psychomotor activity is somewhat restless as he is being interviewed. His affect. At time from intense to flat. His mood was depressed. He was moderately distressed. He making delusional statements at times. He was out in groups today and was able to interact with peers and able to eat meals without difficulty. He is taking medications as indicated. DSM-V diagnoses because this man has a history of being in the [place] and is 68 years old with a diagnosis of schizophrenia acute as exacerbations of such with occasional abdominal pain and hypothyroidism with elevated TSH noncompliance with his thyroid placement makes him difficult biopsychosocial disaster at best. He is on 15 minute checks and will continue throughout his hospital stay. He continues take his medications was slow resolution of symptoms. Will increase his Invega to 9 mg by mouth daily at bedtime and continued monitoring his Depakote 250 daily and 500 mg by mouth daily at bedtime awaiting blood level.
[2019-01-09] MEDS: DIVALPROEX 500 MG TABLET.DR PO SCH (21:48)
[2019-01-09] MEDS: PALIPERIDONE 3 MG TAB.ER.24 PO SCH (22:00)
[2019-01-10] MEDS: LEVOTHYROXINE 100 MCG TAB PO SCH (05:55)
[2019-01-10 07:00] LABS: Appearance,Urine Clear (Clear); Bilirubin,Urine Negative (Negative); Blood,Urine Negative (Negative); Color,Urine Yellow; Glucose,Urine (UA) Negative (Negative); Ketones,Urine Trace (Negative); Leukocyte Esterase,Urine Negative (Negative); Nitrite,Urine Negative (Negative); PH, Urine 5.5 (5.0-8.0); Protein,Urine Negative (Negative); Specific Gravity,Urine 1.031 (1.001-1.035); Urobilinogen,Urine <2.0 mg/dL (<2.0)
[2019-01-10] MEDS: DIVALPROEX 250 MG TABLET.DR PO SCH (09:05)
[2019-01-10] MEDS: NICOTINE 7MG/24HR PATCH TRANSDERM SCH (09:12)
[2019-01-10] MEDS: ATORVASTATIN 10 MG TAB PO SCH (09:13)
[2019-01-10] MEDS: CLOPIDOGREL 75 MG TAB PO SCH (09:13)
[2019-01-10] MEDS: LISINOPRIL 5 MG TAB PO SCH (09:13)
[2019-01-10] MEDS: METOPROLOL TARTRATE 25 MG TAB PO SCH ×2 (09:13→21:13)
[2019-01-10] MEDS: ASPIRIN 81 MG PO SCH (09:13)
[2019-01-10] MEDS: TORSEMIDE 20 MG TAB PO SCH (09:15)
[2019-01-10] MEDS: FAMOTIDINE 20 MG TAB PO SCH ×2 (09:15→21:13)
[2019-01-10] MEDS: VENLAFAXINE HCL ER 150 MG CAP PO SCH (09:17)
--- NOTE | 2019-01-10 09:38 | P.PN ---
Progress Note - Text Interval history: The patient is found in his room he did not wish to come out of his room to speak. He indicates his mood is not good. He states "there are two of me in here". He states that he continues to experience shadows and he has thoughts of hurting them. He endorses suicidal thoughts. He indicates that he ate breakfast this morning. He states he's been attending groups but has been isolating in his room so far this morning. Medications were reviewed. His Depakote level is higher than expected given his Depakote dose. It came back again at 118. He states he has been on Depakote for quite some time and that invega is a new medication for him. He has no questions or concerns regarding his medications. Mental status exam: The patient is alert he has a disheveled appearance he is lying in bed. He does make eye contact. He is missing some teeth. He reports his mood is not good. Affect is constricted. He describes auditory and visual hallucinations. He describes suicidal ideation. When asked about homicidal ideation he states he has them towards the shadows. He may be experiencing any delusional thought content. Insight and judgment are impaired. He is oriented to person place is hospital. He incorrectly names the day of the week is Tuesday he could not name the but knew it was spring. He incorrectly name the years 2017. He demonstrates no verbal or physical aggressiveness. No involuntary repetitive movements were noted. Plan: The patient will continue on the invega. We will allow this time to demonstrate efficacy. Vital signs reviewed. His Depakote will be reduced by 250 mg. He is encouraged to participate in the milieu. We will monitor him for safety.
[2019-01-10] MEDS: DIVALPROEX 500 MG TABLET.DR PO SCH (21:12)
[2019-01-10] MEDS: PALIPERIDONE 3 MG TAB.ER.24 PO SCH (21:13)
[2019-01-11] MEDS: LORazepam 1 MG TAB PO PRN (00:01)
[2019-01-11] MEDS: LEVOTHYROXINE 100 MCG TAB PO SCH (05:51)
[2019-01-11] MEDS: ASPIRIN 81 MG PO SCH (08:52)
[2019-01-11] MEDS: METOPROLOL TARTRATE 25 MG TAB PO SCH (08:52)
[2019-01-11] MEDS: FAMOTIDINE 20 MG TAB PO SCH ×2 (08:52→21:21)
[2019-01-11] MEDS: ATORVASTATIN 10 MG TAB PO SCH (08:52)
[2019-01-11] MEDS: NICOTINE 7MG/24HR PATCH TRANSDERM SCH (08:53)
[2019-01-11] MEDS: VENLAFAXINE HCL ER 150 MG CAP PO SCH (08:53)
[2019-01-11] MEDS: TORSEMIDE 20 MG TAB PO SCH (08:53)
[2019-01-11] MEDS: CLOPIDOGREL 75 MG TAB PO SCH (08:55)
--- NOTE | 2019-01-11 09:10 | P.PN ---
Progress Note - Text Interval history: The patient's found the hallway he follows me to an interview room. He indicates his mood is better today. He states that he spent much of yesterday in his room plans on attending groups today. He indicates he ate breakfast. He reports having no issues. Staff reported he slept 4 hours. He is unaware of what medications he's taking but he states he feels he is on the right track. He states the shadows are still present but they are "behind me waiting for me". He states "I'll be okay if they stay behind me". He is somatically preoccupied this morning. He states that he needs some sort of surgery in his abdomen for 2 large lesions discovered by his primary care physician. He states he has weakness in his legs due to arterial blockages. Mental status exam: The patient is alert he is mobile with a wheelchair. He seated upright throughout the session. Eye contact is appropriate. There is some psychomotor slowing in his speech. He is dressed in his own clothing. He indicates his mood is better affect is constricted. He has spontaneous speech that's nonpressured but he is verbose. He reports feeling safe in the hospital in terms of suicidal ideation. He is describing no thoughts of wanting to harm others. When asked about persecutory or paranoid thoughts he hesitates in answering but then denies. Insight and judgment limited. He is not oriented as he cannot provide the correct day of the week month or year. He indicates he has short-term memory loss. He demonstrated no verbal or physical aggressiveness he demonstrates no involuntary repetitive movements. Plan: The patient will continue on his current psychotropic medications however I will discontinue hydroxyzine. He is encouraged to participate in the milieu. Vital signs reviewed. He was hypotensive yesterday but that is improved so far today. We will continue monitoring him for safety.
[2019-01-11] MEDS: PALIPERIDONE 3 MG TAB.ER.24 PO SCH (21:21)
[2019-01-11] MEDS: DIVALPROEX 500 MG TABLET.DR PO SCH (21:21)
[2019-01-12] MEDS: ACETAMINOPHEN TAB 325 MG TAB PO PRN ×2 (00:39→21:28)
[2019-01-12] MEDS: LEVOTHYROXINE 100 MCG TAB PO SCH (05:35)
[2019-01-12] MEDS: METOPROLOL TARTRATE 25 MG TAB PO SCH ×3 (06:10→20:07)
[2019-01-12] MEDS: NICOTINE 7MG/24HR PATCH TRANSDERM SCH (09:45)
[2019-01-12] MEDS: TORSEMIDE 20 MG TAB PO SCH (09:45)
[2019-01-12] MEDS: CLOPIDOGREL 75 MG TAB PO SCH (09:47)
[2019-01-12] MEDS: ATORVASTATIN 10 MG TAB PO SCH (09:47)
[2019-01-12] MEDS: FAMOTIDINE 20 MG TAB PO SCH ×2 (09:49→20:07)
[2019-01-12] MEDS: VENLAFAXINE HCL ER 150 MG CAP PO SCH (09:49)
[2019-01-12] MEDS: ASPIRIN 81 MG PO SCH (09:50)
--- NOTE | 2019-01-12 11:02 | P.PN ---
Progress Note - Text Interval history: The patient is found in his room. He reports his mood is good. Staff report that the patient still demonstrate some confusion at times possibly psychosis. He primarily isolates in his room and attended 1 group yesterday. He has been compliant with medications. He feels his medications have been beneficial and he has no concerns at this point. Mental status exam: The patient is alert he is cooperative he is a disheveled appearance. He's found in his room and prefers to be interviewed there. He reports no auditory hallucinations but describes shadows in his peripheral vision. He does still have some impairment regarding his thought process. He continues to harbor some delusional thought. Insight and judgment are impaired. He demonstrates no verbal or physical aggressiveness. He is oriented to month year and day the week as well as location today. Affect is pleasant. Plan: The patient appears to have demonstrated some improvement with his psychosis that he is not yet ready for discharge. We will consider discharging him Tuesday if clinically stable. The invega appears to have provided some benefit. We will consider titrating it we will consider initiating the injectable Depo form if he is agreeable. Vital signs reviewed.
[2019-01-12] MEDS: PALIPERIDONE 3 MG TAB.ER.24 PO SCH (20:07)
[2019-01-12] MEDS: DIVALPROEX 500 MG TABLET.DR PO SCH (20:07)
[2019-01-12] MEDS: LORazepam 1 MG TAB PO PRN (23:41)
[2019-01-13] MEDS: LEVOTHYROXINE 100 MCG TAB PO SCH (06:22)
[2019-01-13] MEDS: ASPIRIN 81 MG PO SCH (09:27)
[2019-01-13] MEDS: TORSEMIDE 20 MG TAB PO SCH (09:27)
[2019-01-13] MEDS: NICOTINE 7MG/24HR PATCH TRANSDERM SCH (09:27)
[2019-01-13] MEDS: CLOPIDOGREL 75 MG TAB PO SCH (09:29)
[2019-01-13] MEDS: VENLAFAXINE HCL ER 150 MG CAP PO SCH (09:29)
[2019-01-13] MEDS: ATORVASTATIN 10 MG TAB PO SCH (09:29)
[2019-01-13] MEDS: METOPROLOL TARTRATE 25 MG TAB PO SCH ×2 (09:30→21:05)
[2019-01-13] MEDS: FAMOTIDINE 20 MG TAB PO SCH ×2 (09:30→21:04)
--- NOTE | 2019-01-13 18:14 | P.PN ---
Progress Note - Text Progress Note Date: 01/13/19 IDENTIFICATION DATA: This is a 68-year-old male who resides in a [facility] and was taken into custody referred from retirement. He was found to be suicidal he states he would either hang himself from a tree or push on his AICD wires until they break. He states he feels like he has nothing else live for he has multiple medical issues. He discusses this is a very ghqskm-kd-zuqq sort of way. He recently was evaluated for possible CVA. He believes he has tumors in his stomach. Smokes Marijuana. INTERVAL HISTORY: He stated since the doctor has changed my medications lizette doing lot better. No longer hearing voices. He reports seeing shadows which doesnt bother him. He reports good sleep and appetite. MENTAL STATUS EXAMINATION: Patient appears stated age in fair marginal and hygiene. maintains good eye contact. No abnormal movements noted. speech and thought process are linear and goal directed. mood is reported as better affect constricted . Denies current auditory hallucinations reports visual hallucinations . reports occasional paranoid ideations. The patient is alert and oriented 4 and in no apparent distress. Denies suicidal or homicidal ideation. insight and judgment are improving ASSESSMENT schizophrenia acute exacerbation PLAN: continue Depakote, invega and effexor
[2019-01-13] MEDS: PALIPERIDONE 3 MG TAB.ER.24 PO SCH (21:04)
[2019-01-13] MEDS: DIVALPROEX 500 MG TABLET.DR PO SCH (21:04)
[2019-01-13] MEDS: LORazepam 1 MG TAB PO PRN (22:59)
[2019-01-14] MEDS: LEVOTHYROXINE 100 MCG TAB PO SCH (06:10)
[2019-01-14] MEDS: METOPROLOL TARTRATE 25 MG TAB PO SCH ×2 (08:25→20:11)
[2019-01-14] MEDS: FAMOTIDINE 20 MG TAB PO SCH ×2 (08:26→20:08)
[2019-01-14] MEDS: TORSEMIDE 20 MG TAB PO SCH (08:26)
[2019-01-14] MEDS: VENLAFAXINE HCL ER 150 MG CAP PO SCH (08:26)
[2019-01-14] MEDS: CLOPIDOGREL 75 MG TAB PO SCH (08:26)
[2019-01-14] MEDS: ATORVASTATIN 10 MG TAB PO SCH (08:26)
[2019-01-14] MEDS: ASPIRIN 81 MG PO SCH (08:26)
[2019-01-14] MEDS: NICOTINE 7MG/24HR PATCH TRANSDERM SCH (08:27)
--- NOTE | 2019-01-14 19:46 | P.PN ---
Progress Note - Text Progress Note Date: 01/14/19 IDENTIFICATION DATA: This is a 68-year-old male who resides in a long term and was taken into custody referred from shelter. He was found to be suicidal he states he would either hang himself from a tree or push on his AICD wires until they break. He states he feels like he has nothing else live for he has multiple medical issues. He discusses this is a very fwymlq-hk-ysca sort of way. He recently was evaluated for possible CVA. He believes he has tumors in his stomach. Smokes Marijuana. INTERVAL HISTORY: He reports doing well and he actually walked on his own to the interview room . Even though he uses wheel chair to ambulate he says he tries to walk at times. He reports on going auditory hallucinations and says he hears one voice who tell him to do opposite of what he wants to do, he syas he tries to ignore that voice, even though it is hard for him to ignore and he recognizes that voice as Lanson. He says his voice called Magaly brought him back to life one time and says his voice respects him and he also respects his voice and considers himself and the voice to be one person. He reports seeing shadows. He says he is happy that he will be able to talk to his regular doctor tomorrow and says his doctor will give him the papers to go to his [facility]. He reports good sleep with his medications. He reports good appetite. MENTAL STATUS EXAMINATION: Patient appears stated age in marginal grooming and hygiene. maintains good eye contact. No abnormal movements noted. speech and thought process are goal directed. mood is reported as much better affect constricted . Reports ongoing auditory and visual hallucinations. Denies paranoid ideations. The patient is alert and oriented 4. Denies suicidal or homicidal ideation. insight and judgment are improving ASSESSMENT schizophrenia acute exacerbation PLAN: continue Depakote, invega and effexor
[2019-01-14] MEDS: PALIPERIDONE 3 MG TAB.ER.24 PO SCH (20:08)
[2019-01-14] MEDS: DIVALPROEX 500 MG TABLET.DR PO SCH (20:08)
[2019-01-14] MEDS: LORazepam 1 MG TAB PO PRN (20:54)
[2019-01-15] MEDS: LEVOTHYROXINE 100 MCG TAB PO SCH (06:32)
[2019-01-15 06:43] VITALS: TEMP 97.6
[2019-01-15] MEDS: ATORVASTATIN 10 MG TAB PO SCH (08:32)
[2019-01-15] MEDS: ASPIRIN 81 MG PO SCH (08:32)
[2019-01-15] MEDS: TORSEMIDE 20 MG TAB PO SCH (08:32)
[2019-01-15] MEDS: CLOPIDOGREL 75 MG TAB PO SCH (08:32)
[2019-01-15] MEDS: VENLAFAXINE HCL ER 150 MG CAP PO SCH (08:33)
[2019-01-15] MEDS: FAMOTIDINE 20 MG TAB PO SCH (08:33)
[2019-01-15] MEDS: METOPROLOL TARTRATE 25 MG TAB PO SCH (08:34)
[2019-01-15] MEDS: NICOTINE 7MG/24HR PATCH TRANSDERM SCH (08:34)
[2019-01-15 09:24] VITALS: BP 116/56; PULSE 73; RESP 20
[2019-01-15] MEDS ORDERED: PALIPERIDONE IM 234 MG/1.5 ML SYG IM ONE (11:30)
--- NOTE | 2019-01-15 11:36 | P.DS ---
Providers Date of admission: 01/04/19 19:44 Expected date of discharge: 01/15/19 Attending physician: Hermelindo Solis Consults: 01/04/19 20:45 Consult Physician Routine Consulting Provider: Raffaele Verdin Consult Reason/Comments: H & P and medical care Do you want consulting provider notified?: Yes 01/09/19 21:53 Consult Physician Routine Consulting Provider: Raffaele Verdin Consult Reason/Comments: to evalute HTN meds due to low blood pressure Do you want consulting provider notified?: Yes, Notify in am Primary care physician: Raffaele Verdin - Discharge Diagnosis(es) (1) Schizophrenia Current Visit: Yes Status: Acute Priority: High Hospital Course: Brief summary of admission note: This patient is a 68-year-old male who presented from the [facility] with acute symptoms of psychosis and mood symptoms. The initial evaluation was performed by , please refer to his psychiatric evaluation dated 01/05/2019. It was noted that the patient was depressed he was making threatening gestures towards others specifically with a straight razor. He had reported visual hallucinations. Summary of hospital course: The patient was admitted to the mental health unit and he signed in voluntarily. He was started on invega for symptoms of psychosis and the dosage was titrated to 9 mg daily. His Depakote was reduced due to him demonstrating an elevated level twice. Effexor was increased. The patient was seen by internal medicine for routine history and physical exam. Social work met with the patient to complete a psychosocial assessment and for discharge planning purposes. The patient is currently on a [facility] hold and is to be returned [facility] the [facility] upon discharge from this unit. The patient for the most part avoided group activity. I assumed his care on 01/10/2019. He has been pleasant and cooperative with me during our interactions. We reviewed his current medications. He has indicated that the invega seems to be providing benefit. He is agreeable to pursuing the Invega Sustenna injection. He demonstrates future oriented thinking. He indicates his symptoms of psychosis are much improved. Mental status exam: The patient is a shorter statured male appearing his stated age. He has long hair and wears a hester. Speech is fluent spontaneous nonpressured. He is pleasant and cooperative. He is reporting no suicidal or homicidal ideation intent or plan. He is reporting no current auditory hallucinations. He states that the visual hallucinations have been significantly reduced and he hopes it stays that way. He demonstrates no verbal or physical aggressiveness. Affect is smiling and brighter. he demonstrates no involuntary repetitive movements. Insight and judgment improved. It is believed that he does have some psychosis at baseline. He is oriented to person place and date. Impressions 1. Schizophrenia 2. Hypothyroidism, hyperlipidemia Plan: The patient will be discharged mental health unit today. He is [facility] a [facility] and will [facility]. He will follow with [facility] discharge. He will continue on Depakote 500 mg at bedtime, invega at 9 mg daily for 7 days then discontinue. He will receive his first invega injection today of 234 mg. Continue Effexor XR 150 mg daily. He is instructed to abstain from any use of alcohol marijuana or any illicit drug as he substances can provoke psychotic symptoms and elevate his safety risk. At this time there is no imminent safety risk he is appropriate for transition to outpatient care. Patient Condition at Discharge: Stable Plan - Discharge Summary Discharge Rx Participant: No New Discharge Prescriptions: New Divalproex [Depakote] 500 mg PO HS #30 tablet. Venlafaxine HCl ER [Effexor XR] 150 mg PO DAILY #30 cap.er.24h Nicotine 7Mg/24Hr Patch [Habitrol] 1 patch TRANSDERM DAILY #7 patch Paliperidone [Invega] 9 mg PO DAILY #7 tab Paliperidone IM [Invega Sustenna] 156 mg IM ONCE #1 syr Continue Metoprolol Tartrate [Lopressor] 12.5 mg PO BID Aspirin EC [Ecotrin Low Dose] 81 mg PO DAILY Simvastatin [Zocor] 20 mg PO DAILY Clopidogrel [Plavix] 75 mg PO DAILY Discontinued Escitalopram [Lexapro] 20 mg PO DAILY Divalproex [Depakote] 500 mg PO BID Ramipril [Altace] 1.25 mg PO DAILY Donepezil [Aricept] 10 mg PO DAILY Venlafaxine HCl [Effexor XR] 75 mg PO DAILY No Action hydrOXYzine HCL [Atarax] 25 mg PO TID Torsemide [Demadex] 5 mg PO DAILY Zolpidem [Ambien] 10 mg PO HS Ranitidine HCl [Zantac] 150 mg PO BID Ergocalciferol [Vitamin D2 (DRISDOL)] 50,000 unit PO Q7D Levothyroxine Sodium [Synthroid] 100 mcg PO DAILY Discharge Medication List Aspirin EC [Ecotrin Low Dose] 81 mg PO DAILY 09/08/18 [History] Metoprolol Tartrate [Lopressor] 12.5 mg PO BID 09/08/18 [History] hydrOXYzine HCL [Atarax] 25 mg PO TID 09/08/18 [History] Simvastatin [Zocor] 20 mg PO DAILY 12/18/18 [History] Torsemide [Demadex] 5 mg PO DAILY 12/18/18 [History] Zolpidem [Ambien] 10 mg PO HS 12/18/18 [History] Clopidogrel [Plavix] 75 mg PO DAILY 12/30/18 [History] Ergocalciferol [Vitamin D2 (DRISDOL)] 50,000 unit PO Q7D 12/30/18 [History] Levothyroxine Sodium [Synthroid] 100 mcg PO DAILY 12/30/18 [History] Ranitidine HCl [Zantac] 150 mg PO BID 12/30/18 [History] Divalproex [Depakote] 500 mg PO HS #30 tablet.dr 01/15/19 [Rx] Nicotine 7Mg/24Hr Patch [Habitrol] 1 patch TRANSDERM DAILY #7 patch 01/15/19 [Rx] Paliperidone IM [Invega Sustenna] 156 mg IM ONCE #1 syr 01/15/19 [Rx] Paliperidone [Invega] 9 mg PO DAILY #7 tab 01/15/19 [Rx] Venlafaxine HCl ER [Effexor XR] 150 mg PO DAILY #30 cap.er.24h 01/15/19 [Rx] Follow up Appointment(s)/Referral(s): Raffaele Verdin MD [Primary Care Provider] - 1-2 days Patient Instructions/Handouts: Depression (DC), Suicide Prevention (DC) Activity/Diet/Wound Care/Special Instructions: Activity and diet as tolerated. Avoid the use of street drugs and alcohol. Take all medications as prescribed. When you are in need of refills on your medications please contact your medical provider and/or outpatient psychiatrist to have this done. Please go to scheduled outpatient appointment for aftercare treatment. If symptoms return or become worse, call the crisis line at and/or go to the nearest emergency room for evaluation.
== END 2019-01-15 15:02 | DRG 885 ==
LOC: EC 13:23 → 3MHU 19:44
PROVIDERS: ADMIT Psychiatry & Neurology Psychiatry; ATTEND Psychiatry & Neurology Psychiatry
DX: F20.9 Schizophrenia, unspecified (principal); R45.851 Suicidal ideations; I11.0 Hypertensive heart disease with heart failure; I50.9 Heart failure, unspecified; G62.9 Polyneuropathy, unspecified; G40.909 Epilepsy, unspecified, not intractable, without status epilepticus; F03.90 Unspecified dementia, unspecified severity, without behavioral disturbance, psychotic disturbance, mood disturbance, and anxiety; F31.9 Bipolar disorder, unspecified; F41.9 Anxiety disorder, unspecified; R10.9 Unspecified abdominal pain; E78.5 Hyperlipidemia, unspecified; E03.9 Hypothyroidism, unspecified; I25.10 Atherosclerotic heart disease of native coronary artery without angina pectoris; I25.5 Ischemic cardiomyopathy; R25.1 Tremor, unspecified; F12.10 Cannabis abuse, uncomplicated; G89.29 Other chronic pain; M54.9 Dorsalgia, unspecified; T38.1X6A Underdosing of thyroid hormones and substitutes, initial encounter; Z91.128 Patient's intentional underdosing of medication regimen for other reason; Z79.82 Long term (current) use of aspirin; Z79.02 Long term (current) use of antithrombotics/antiplatelets; Z79.890 Hormone replacement therapy; Z79.899 Other long term (current) drug therapy; Z91.19 Patient's noncompliance with other medical treatment and regimen; Z87.891 Personal history of nicotine dependence; Z95.5 Presence of coronary angioplasty implant and graft; Z95.810 Presence of automatic (implantable) cardiac defibrillator; Z95.1 Presence of aortocoronary bypass graft; Z98.890 Other specified postprocedural states; Z88.5 Allergy status to narcotic agent; Z88.0 Allergy status to penicillin; Z88.7 Allergy status to serum and vaccine; Z81.8 Family history of other mental and behavioral disorders; Z83.1 Family history of other infectious and parasitic diseases; Z81.1 Family history of alcohol abuse and dependence
CPT/HCPCS: 36415; 70450; 71046; 74150; 80053; 80061; 80164; 80165; 80306; 81003; 82075; 82140; 82150; 82550; 82553; 83036; 83690; 83735; 84439; 84443; 84481; 84484; 85025; 93005; 99285

== ENCOUNTER 2019-03-02 21:20 | Observation (INO) | payer MEDICARE, OTHER ==
[2019-03-02] MEDS ORDERED: SODIUM CHLORIDE 0.9% 1,000 ML IV STA (23:17)
[2019-03-02] MEDS ORDERED: ONDANSETRON 4 MG/2 ML VIAL IVP STA (23:17)
[2019-03-02 23:56] LABS: INR 1.1 (<1.2); Partial Thromboplastin Time 26.4 sec (22.0-30.0); Prothrombin Time 11.2 sec (9.0-12.0)
[2019-03-03 00:01] LABS: Basophils % (A) 1 %; Eosinophils # (A) 0.4 k/uL (0-0.7); Eosinophils % (A) 7 %; HCT 35.5 % (39.0-53.0); HGB 10.9 gm/dL (13.0-17.5); Lymphocytes # (A) 2.2 k/uL (1.0-4.8); Lymphocytes % (A) 34 %; MCH 27.8 pg (25.0-35.0); MCHC 30.7 g/dL (31.0-37.0); MCV 90.4 fL (80.0-100.0); Mean Platelet Volume 7.1; Monocytes # (A) 0.5 k/uL (0-1.0); Monocytes % (A) 7 %; Neutrophils # (A) 3.1 k/uL (1.3-7.7); Neutrophils % (A) 49 %; Platelet Count 167 k/uL (150-450); RBC 3.93 m/uL (4.30-5.90); RDW 14.2 % (11.5-15.5); WBC 6.5 k/uL (3.8-10.6)
[2019-03-03 00:02] LABS: Albumin 3.7 g/dL (3.5-5.0); Calcium 9.2 mg/dL (8.4-10.2); Magnesium 1.8 mg/dL (1.6-2.3); Potassium 4.2 mmol/L (3.5-5.1); Total Bilirubin 0.2 mg/dL (0.2-1.3); Total Protein 6.6 g/dL (6.3-8.2)
--- NOTE | 2019-03-03 00:33 | XR ---
EXAM: XR Chest, 2 Views CLINICAL HISTORY: ITS.REASON XR Reason: Weakness TECHNIQUE: Frontal and lateral views of the chest. COMPARISON: 01/04/2019. FINDINGS: Lungs: Unremarkable. The lungs are clear. Pleural space: Unremarkable. No pneumothorax. Heart: Unremarkable. No cardiomegaly. Mediastinum: Unremarkable. Bones/joints: Prior sternotomy and cardiac surgery. Tubes, lines and devices: 2-lead AICD overlying the right chest wall. IMPRESSION: No acute findings.
--- NOTE | 2019-03-03 00:37 | CT ---
EXAM: CT Head Without Intravenous Contrast CLINICAL HISTORY: ITS.REASON CT Reason: Pain TECHNIQUE: Axial computed tomography images of the head/brain without intravenous contrast. DLP is 1084 mGy-cm. This CT exam was performed using one or more of the following dose reduction techniques: automated exposure control, adjustment of the mA and/or kV according to patient size, and/or use of iterative reconstruction technique. COMPARISON: 01/04/2019. FINDINGS: Brain: No evidence of acute intracranial hemorrhage. Reidentified 2 small chronic lacunar infarcts in the right basal ganglia. No mass effect or herniation. Ventricles: Unremarkable. No ventriculomegaly. Bones/joints: No acute fracture. Soft tissues: Unremarkable. Vasculature: Calcification of the distal internal carotid arteries and vertebrobasilar system. Sinuses: Unremarkable as visualized. Mastoid air cells: Unremarkable as visualized. IMPRESSION: 1. No evidence of acute intracranial hemorrhage. 2. Reidentified 2 small chronic lacunar infarcts in the right basal ganglia.
[2019-03-03 01:11] LABS: Appearance,Urine Clear (Clear); Bilirubin,Urine Negative (Negative); Blood,Urine Negative (Negative); Color,Urine Light Yellow; Glucose,Urine (UA) Negative (Negative); Ketones,Urine Negative (Negative); Leukocyte Esterase,Urine Negative (Negative); Nitrite,Urine Negative (Negative); Protein,Urine Negative (Negative); Specific Gravity,Urine 1.017 (1.001-1.035); Urobilinogen,Urine <2.0 mg/dL (<2.0)
--- NOTE | 2019-03-03 01:27 | CT ---
EXAM: CT Abdomen and Pelvis With Intravenous Contrast CLINICAL HISTORY: ITS.REASON CT Reason: Pain TECHNIQUE: Axial computed tomography images of the abdomen and pelvis with intravenous contrast. DLP is 665.4 mGy-cm. This CT exam was performed using one or more of the following dose reduction techniques: automated exposure control, adjustment of the mA and/or kV according to patient size, and/or use of iterative reconstruction technique. COMPARISON: CT dated 01/04/2019. FINDINGS: Lung bases: Unremarkable. No mass. No consolidation. Mediastinum: Mild wall thickening the distal esophagus. ABDOMEN: Liver: Unremarkable. No mass. Gallbladder and bile ducts: Unremarkable. No calcified stones. No ductal dilation. Pancreas: Unremarkable. No evidence of mass. No ductal dilation. Spleen: Multiple presumed granulomas in the liver and spleen. Adrenals: Unremarkable. No mass. Kidneys and ureters: Unchanged bilateral renal cysts measuring up to 4. 6 cm on the right and 5 mm the left. No hydronephrosis. Stomach and bowel: Diverticulosis without evidence of diverticulitis. No obstruction. PELVIS: Appendix: No findings to suggest acute appendicitis. Bladder: Unremarkable. No evidence of mass. Reproductive: Unremarkable as visualized. ABDOMEN and PELVIS: Intraperitoneal space: Unremarkable. No free air. No significant fluid collection. Bones/joints: No acute fracture. Soft tissues: Unremarkable. Vasculature: Grossly unchanged abdominal aortic aneurysm measuring up to 4.7 cm in diameter. Grossly unchanged borderline right common iliac artery aneurysm measuring up to 1.5 cm. Partially imaged left superficial femoral artery stent, which appears occluded. Partially imaged proximal right superficial femoral artery appears occluded. Lymph nodes: Unremarkable. No enlarged lymph nodes. IMPRESSION: 1. Mild wall thickening the distal esophagus. Further evaluation nonemergent esophagram is suggested. 2. Grossly unchanged abdominal aortic aneurysm measuring up to 4.7 cm in diameter. Grossly unchanged borderline right common iliac artery aneurysm measuring up to 1.5 cm. 3. Partially imaged left superficial femoral artery stent, which appears occluded. Partially imaged proximal right superficial femoral artery appears occluded. 4. Diverticulosis without evidence of diverticulitis. <MYCVCSECTION> Critical Value Communications 03/03/19 01:35 Verify Receipt Verified receipt with Anne in ER for Dr. Ruff on 03/03 01:37 (-04:00)
[2019-03-03] MEDS ORDERED: HYDROcodone/APAP 5-325MG 1 EACH TAB PO STA (02:53)
[2019-03-03] MEDS ORDERED: NALOXONE 0.4 MG/ML 1 ML VIAL IV PRN (03:40)
--- NOTE | 2019-03-03 03:40 | ED ---
Weakness HPI - General Chief complaint: Weakness Stated complaint: Weakness Time Seen by Provider: 03/02/19 22:21 Source: patient Mode of arrival: EMS - History of Present Illness Initial comments: Patient is a 68-year-old male who presents emergency Department with reported nausea or vomiting and difficulty breathing. He states that he saw [facility] today and was placed on valproic acid. Reports that he used to be on this medication however he was incarcerated and did not receive any of his medications while in care home. He was told to take 500 mg of his valproic acid daily. States that he felt this was higher than his previous dose of valproic acid. After medication administration he was having nausea and several episodes of nonbilious nonbloody vomiting. States he has felt generally weak and dehydrated. He was difficult to ambulate because of the weakness in his lower extremity is. He is also reporting to worsening of his chronic back pain. Because of this he does present to the emergency room for evaluation. He denies any unilateral numbness or weakness. Denies any other changes bilateral lower extremity. Admits to mild chest pain. He also admits to abdominal pain. Denies any diarrhea constipation melanotic stools or hematochezia. Denies any changes in his urination. There are no alleviating, precipitating or modifying factors - Related Data Home Medications Medication Instructions Recorded Confirmed Aspirin EC [Ecotrin Low Dose] 81 mg PO DAILY 09/08/18 01/04/19 Metoprolol Tartrate [Lopressor] 12.5 mg PO BID 09/08/18 01/04/19 hydrOXYzine HCL [Atarax] 25 mg PO TID 09/08/18 01/04/19 Simvastatin [Zocor] 20 mg PO DAILY 12/18/18 01/04/19 Torsemide [Demadex] 5 mg PO DAILY 12/18/18 01/04/19 Zolpidem [Ambien] 10 mg PO HS 12/18/18 01/04/19 Clopidogrel [Plavix] 75 mg PO DAILY 12/30/18 01/04/19 Ergocalciferol [Vitamin D2 50,000 unit PO Q7D 12/30/18 01/04/19 (DRISDOL)] Levothyroxine Sodium [Synthroid] 100 mcg PO DAILY 12/30/18 01/04/19 Ranitidine HCl [Zantac] 150 mg PO BID 12/30/18 01/04/19 Previous Rx's Medication Instructions Recorded Divalproex [Depakote] 500 mg PO HS #30 tablet. 01/15/19 Nicotine 7Mg/24Hr Patch [Habitrol] 1 patch TRANSDERM DAILY #7 patch 01/15/19 Paliperidone IM [Invega Sustenna] 156 mg IM ONCE #1 syr 01/15/19 Paliperidone [Invega] 9 mg PO DAILY #7 tab 01/15/19 Venlafaxine HCl ER [Effexor XR] 150 mg PO DAILY #30 cap.er.24h 01/15/19 Allergies Allergy/AdvReac Type Severity Reaction Status Date / Time morphine Allergy Anaphylaxis Verified 03/02/19 22:09 Penicillins Allergy Unknown Verified 03/02/19 22:09 Influenza Virus Vaccines AdvReac Unknown Verified 03/02/19 22:09 pneumococcal vaccine AdvReac Unknown Verified 03/02/19 22:09 Review of Systems ROS Statement: Those systems with pertinent positive or pertinent negative responses have been documented in the HPI. ROS Other: All systems not noted in ROS Statement are negative. Past Medical History Past Medical History: Coronary Artery Disease (CAD), Heart Failure, Dementia, Hyperlipidemia, Hypertension, Seizure Disorder, Syncope, Thyroid Disorder Additional Past Medical History / Comment(s): Ischemic cardiomyopathy, EF 20- 25%, last seizure about 2 yrs ago, hypothyroid.neuropathy "WHEN HE WORKED HE HAD A CRUSHING INJURY -COLLAPSED LUNGS C/T AND HAS CHRONIC BACK PAIN"" pt states he is schizophrenic/bipolar. History of Any Multi-Drug Resistant Organisms: None Reported Past Surgical History: AICD, Back Surgery, Coronary Bypass/CABG, Heart Catheterization, Heart Catheterization With Stent Additional Past Surgical History / Comment(s): 1995 CABG 4 vessel in [place], has had 2"HEART CATHS/had 2 STENTS after cabg sx.pt stated they were done in [facility]. "sx on tailbone, cortisone injections, devin inguinal hernia repair Past Anesthesia/Blood Transfusion Reactions: No Reported Reaction Date of Last Stent Placement:: unk Type of Cardiac Device: AICD Device Placement Date:: ? 1995 in [facility] Past Psychological History: Anxiety, Depression, Schizoaffective Disorder, Schizophrenia Smoking Status: Current every day smoker Past Alcohol Use History: None Reported Past Drug Use History: None Reported - Past Family History Mother Family Medical History: Respiratory Disorder Additional Family Medical History / Comment(s): Mother had TB Father Additional Family Medical History / Comment(s): Father was an alcoholic. Course Vital Signs 03/02/19 03/02/19 03/03/19 22:05 23:00 03:03 Temperature 98.2 F Pulse Rate 81 72 82 Respiratory 18 18 16 Rate Blood Pressure 148/82 133/89 129/71 O2 Sat by Pulse 97 96 95 Oximetry EKG Findings - EKG Comments: EKG Findings:: EKG demonstrates a normal sinus rhythm with a ventricular rate of 75. IL interval 118. QRS 102. QTC 439. There are Q waves in the inferior leads. No acute ST segment elevations or depressions concerning for ischemic changes. Medical Decision Making - Medical Decision Making On arrival the patient is placed in room 24. He sixth continuous pulse ox and cardiac monitoring. 12-lead EKG is performed on the patient which on x-ray is normal sinus rhythm. Patient was provided a [place] for pain control. IV access was established. He was given 4 mg of Zofran for his nausea. I did recommend laboratory studies. A chest x-ray was performed and the patient was sent for a CT of his abdomen and pelvis. I also performed a CT of the patient's brain as he is reporting a headache. On return results I did discuss them with the patient. The patient does have an occlusion of his left femoral graft. He also has an occlusion noted to his right femoral artery. Because of this I did call discuss case with Dr. Telles. Dr. Telles does present to the emergency room and evaluates the patient. He does believe that these are chronic occlusions and therefore does not recommend heparinization of the patient at this time. He does states that he would be placed on consult to evaluate the patient tomorrow regarding his chronic occlusions as well as his abdominal aortic aneurysm. I did call discuss case with Dr. Verdin. He did accept admission for the patient. Bridging orders are placed. Patient remained in stable condition was transported to floor - Lab Data Result diagrams: 03/02/19 22:38 03/02/19 22:38 Lab Results 03/02/19 03/02/19 03/02/19 Range/Units 22:38 22:38 22:38 WBC 6.5 (3.8-10.6) k/uL RBC 3.93 L (4.30-5.90) m/uL Hgb 10.9 L (13.0-17.5) gm/dL Hct 35.5 L (39.0-53.0) % MCV 90.4 (80.0-100.0) fL MCH 27.8 (25.0-35.0) pg MCHC 30.7 L (31.0-37.0) g/dL RDW 14.2 (11.5-15.5) % Plt Count 167 (150-450) k/uL Neutrophils % 49 % Lymphocytes % 34 % Monocytes % 7 % Eosinophils % 7 % Basophils % 1 % Neutrophils # 3.1 (1.3-7.7) k/uL Lymphocytes # 2.2 (1.0-4.8) k/uL Monocytes # 0.5 (0-1.0) k/uL Eosinophils # 0.4 (0-0.7) k/uL Basophils # 0.0 (0-0.2) k/uL PT (9.0-12.0) sec INR (<1.2) APTT (22.0-30.0) sec Sodium 139 (137-145) mmol/L Potassium 4.2 (3.5-5.1) mmol/L Chloride 106 (98-107) mmol/L Carbon Dioxide 26 (22-30) mmol/L Anion Gap 7 mmol/L BUN 22 H (9-20) mg/dL Creatinine 1.01 (0.66-1.25) mg/dL Est GFR (CKD-EPI)AfAm 89 (>60 ml/min/1.73 sqM) Est GFR (CKD-EPI)NonAf 77 (>60 ml/min/1.73 sqM) Glucose 106 H (74-99) mg/dL Plasma Lactic Acid Rigoberto 1.1 (0.7-2.0) mmol/L Calcium 9.2 (8.4-10.2) mg/dL Magnesium 1.8 (1.6-2.3) mg/dL Total Bilirubin 0.2 (0.2-1.3) mg/dL AST 41 (17-59) U/L ALT 35 (21-72) U/L Alkaline Phosphatase 86 (38-126) U/L Creatine Kinase 55 (55-170) U/L Troponin I (0.000-0.034) ng/mL Total Protein 6.6 (6.3-8.2) g/dL Albumin 3.7 (3.5-5.0) g/dL TSH 14.400 H (0.465-4.680) mIU/L Free T4 (0.78-2.19) ng/dL Urine Color Urine Appearance (Clear) Urine pH (5.0-8.0) Ur Specific [place] (1.001-1.035) Urine Protein (Negative) Urine Glucose (UA) (Negative) Urine Ketones (Negative) Urine Blood (Negative) Urine Nitrite (Negative) Urine Bilirubin (Negative) Urine Urobilinogen (<2.0) mg/dL Ur Leukocyte Esterase (Negative) Valproic Acid ug/mL 03/02/19 03/02/19 03/02/19 Range/Units 22:38 22:38 22:38 WBC (3.8-10.6) k/uL RBC (4.30-5.90) m/uL Hgb (13.0-17.5) gm/dL Hct (39.0-53.0) % MCV (80.0-100.0) fL MCH (25.0-35.0) pg MCHC (31.0-37.0) g/dL RDW (11.5-15.5) % Plt Count (150-450) k/uL Neutrophils % % Lymphocytes % % Monocytes % % Eosinophils % % Basophils % % Neutrophils # (1.3-7.7) k/uL Lymphocytes # (1.0-4.8) k/uL Monocytes # (0-1.0) k/uL Eosinophils # (0-0.7) k/uL Basophils # (0-0.2) k/uL PT 11.2 (9.0-12.0) sec INR 1.1 (<1.2) APTT 26.4 (22.0-30.0) sec Sodium (137-145) mmol/L Potassium (3.5-5.1) mmol/L Chloride (98-107) mmol/L Carbon Dioxide (22-30) mmol/L Anion Gap mmol/L BUN (9-20) mg/dL Creatinine (0.66-1.25) mg/dL Est GFR (CKD-EPI)AfAm (>60 ml/min/1.73 sqM) Est GFR (CKD-EPI)NonAf (>60 ml/min/1.73 sqM) Glucose (74-99) mg/dL Plasma Lactic Acid Rigoberto (0.7-2.0) mmol/L Calcium (8.4-10.2) mg/dL Magnesium (1.6-2.3) mg/dL Total Bilirubin (0.2-1.3) mg/dL AST (17-59) U/L ALT (21-72) U/L Alkaline Phosphatase (38-126) U/L Creatine Kinase (55-170) U/L Troponin I <0.012 (0.000-0.034) ng/mL Total Protein (6.3-8.2) g/dL Albumin (3.5-5.0) g/dL TSH (0.465-4.680) mIU/L Free T4 0.49 L (0.78-2.19) ng/dL Urine Color Urine Appearance (Clear) Urine pH (5.0-8.0) Ur Specific [place] (1.001-1.035) Urine Protein (Negative) Urine Glucose (UA) (Negative) Urine Ketones (Negative) Urine Blood (Negative) Urine Nitrite (Negative) Urine Bilirubin (Negative) Urine Urobilinogen (<2.0) mg/dL Ur Leukocyte Esterase (Negative) Valproic Acid ug/mL 03/02/19 03/03/19 Range/Units 23:47 00:55 WBC (3.8-10.6) k/uL RBC (4.30-5.90) m/uL Hgb (13.0-17.5) gm/dL Hct (39.0-53.0) % MCV (80.0-100.0) fL MCH (25.0-35.0) pg MCHC (31.0-37.0) g/dL RDW (11.5-15.5) % Plt Count (150-450) k/uL Neutrophils % % Lymphocytes % % Monocytes % % Eosinophils % % Basophils % % Neutrophils # (1.3-7.7) k/uL Lymphocytes # (1.0-4.8) k/uL Monocytes # (0-1.0) k/uL Eosinophils # (0-0.7) k/uL Basophils # (0-0.2) k/uL PT (9.0-12.0) sec INR (<1.2) APTT (22.0-30.0) sec Sodium (137-145) mmol/L Potassium (3.5-5.1) mmol/L Chloride (98-107) mmol/L Carbon Dioxide (22-30) mmol/L Anion Gap mmol/L BUN (9-20) mg/dL Creatinine (0.66-1.25) mg/dL Est GFR (CKD-EPI)AfAm (>60 ml/min/1.73 sqM) Est GFR (CKD-EPI)NonAf (>60 ml/min/1.73 sqM) Glucose (74-99) mg/dL Plasma Lactic Acid Rigoberto (0.7-2.0) mmol/L Calcium (8.4-10.2) mg/dL Magnesium (1.6-2.3) mg/dL Total Bilirubin (0.2-1.3) mg/dL AST (17-59) U/L ALT (21-72) U/L Alkaline Phosphatase (38-126) U/L Creatine Kinase (55-170) U/L Troponin I (0.000-0.034) ng/mL Total Protein (6.3-8.2) g/dL Albumin (3.5-5.0) g/dL TSH (0.465-4.680) mIU/L Free T4 (0.78-2.19) ng/dL Urine Color Light Yellow Urine Appearance Clear (Clear) Urine pH 7.0 (5.0-8.0) Ur Specific [place] 1.017 (1.001-1.035) Urine Protein Negative (Negative) Urine Glucose (UA) Negative (Negative) Urine Ketones Negative (Negative) Urine Blood Negative (Negative) Urine Nitrite Negative (Negative) Urine Bilirubin Negative (Negative) Urine Urobilinogen <2.0 (<2.0) mg/dL Ur Leukocyte Esterase Negative (Negative) Valproic Acid 49.8 ug/mL Disposition Clinical Impression: Abdominal pain, Nausea and vomiting, Arterial occlusion, lower extremity Disposition: ADMITTED IP TO THIS [facility] Condition: Stable Is patient prescribed a controlled substance at d/c from ED?: No Decision to Admit Reason: Admit from EC Decision Date: 03/03/19 Decision Time: 03:39
[2019-03-03] MEDS: ONDANSETRON 4 MG/2 ML VIAL IVP SCH ×2 (08:54→15:21)
--- NOTE | 2019-03-03 12:40 | CONS ---
DATE OF CONSULTATION: 03/03/2019 This patient came to the Emergency Room at 2:30 in the morning. I was called in for vascular evaluation. Patient complaining of some nausea, vomiting, abdominal pain and some ribcage pain. The patient had a CT scan of the abdomen which showed infrarenal abdominal aortic aneurysm and some SFA occlusive disease. PAST MEDICAL HISTORY: Medical history of schizophrenia. Past history: The patient has been admitted to this hospital in the past about a few months ago with similar complaint. According to the patient, he had some stent placed in his artery in [place] in the past. PHYSICAL EXAMINATION: Patient was seen in his room. He was lying comfortably. His vital signs stable. NECK: Supple. No bruit appreciated. CHEST: Clear to auscultation. First and second sounds normal. ABDOMEN: Soft, nontender. VASCULAR examination: Femorals on the left side 2+ and on the right side, 1+. Patient has both temperature of the skin is normal on both feet. Motor functions are normal. The patient has a posterior tib dorsal pedis by the Doppler. No ischemic changes noted. No ulceration noted. Patient has been admitted to medical service for abdominal pain and nausea. We will follow with you. At this point, the patient has no acute vascular occlusive disease Thank you for this referral. MMODL / IJN: [id number] / MTDD
[2019-03-03] MEDS: KETOROLAC 30 MG/ML 1 ML VIAL IVP PRN (15:20)
[2019-03-03] MEDS ORDERED: DIVALPROEX 500 MG TABLET.DR PO SCH (21:00)
[2019-03-03] MEDS ORDERED: ATORVASTATIN 10 MG TAB PO SCH (21:00)
[2019-03-03] MEDS: FAMOTIDINE 20 MG TAB PO SCH (21:27)
[2019-03-03] MEDS: METOPROLOL TARTRATE 12.5 MG TAB PO SCH (21:28)
--- NOTE | 2019-03-03 23:13 | HP ---
HISTORY AND PHYSICAL CHIEF COMPLAINT: 68-year-old male with nausea, vomiting, difficulty breathing. [facility] today, put him on valproic acid. He was on this medicine while in skilled nursing. He is supposed to take 500 mg upward daily. He states that was higher than his previous dose. He has had nausea and nonbilious nonbloody vomiting. Weakened. Dehydrated. his back pain. Denies any numbness. Admits to mild chest pain. Possible abdominal pain. Denies diarrhea, constipation, hematochezia, melena. No dysuria, frequency, urgency, hesitancy. Home medications: He states he has not taken in a month because his boarding place does not allow him to take medications from the visiting physicians. They ran out. Lopressor 12.5 b.i.d., Atarax 25 t.i.d., aspirin 81 mg daily, Zocor 20 mg daily, Demadex 10 mg daily, Plavix 75 mg daily, vitamin D 50,000 units weekly, Synthroid 100 mcg daily, Zantac 150 b.i.d. ALLERGIES: MORPHINE, PENICILLIN. SURGICAL HISTORY: AICD, back surgery, CABG, heart catheterization with stent, surgeries, CABG x4 with 2 stents, cortisone injections, bilateral inguinal hernia repair, AICD history of anxiety, depression, schizoaffective schizophrenia. SOCIAL HISTORY: Current everyday smoker. No alcohol. No illicit drugs. FAMILY HISTORY: Mother with TB. Father alcoholic. PHYSICAL EXAMINATION: Temp 98.2, pulse 72 to 82, respiratory rate 18-20, blood pressure 129-148/71 to 89, O2 95 to 97. Cardiovascular S1-S2. GI is soft, nontender. Hematology negative Homans. Vascular 1+ dorsalis pedis posterior radial pulses. No skin rash or excoriation, bruising. ASSESSMENT: 1. Chronic occlusions t.i.d. 2. Aortic aneurysm. 3. Acute on chronic anemia. 4. Abdominal pain, nausea, vomiting, artery occlusion. Vascular consult. CT scan of the abdomen, aneurysm, chest surgeon opinion. Please see further orders. MMODL / IJN: [id number] /
[2019-03-04] MEDS: KETOROLAC 30 MG/ML 1 ML VIAL IVP PRN (00:13)
[2019-03-04] MEDS: ONDANSETRON 4 MG/2 ML VIAL IVP SCH ×2 (00:13→09:00)
[2019-03-04 02:06] VITALS: PULSE 60; TEMP 97.8
[2019-03-04] MEDS ORDERED: LEVOTHYROXINE 125 MCG TAB PO SCH (06:30)
[2019-03-04] MEDS ORDERED: LEVOTHYROXINE 75 MCG TAB PO SCH (06:30)
[2019-03-04 08:21] VITALS: BP 103/67; RESP 14
[2019-03-04] MEDS: FAMOTIDINE 20 MG TAB PO SCH (08:59)
[2019-03-04] MEDS: METOPROLOL TARTRATE 12.5 MG TAB PO SCH (08:59)
[2019-03-04] MEDS ORDERED: ASPIRIN 81 MG PO SCH (09:00)
[2019-03-04] MEDS ORDERED: VENLAFAXINE HCL ER 150 MG CAP PO SCH (09:00)
[2019-03-04] MEDS ORDERED: FUROSEMIDE 10 MG TAB PO SCH (09:00)
[2019-03-04] MEDS ORDERED: CLOPIDOGREL 75 MG TAB PO SCH (09:00)
[2019-03-04] MEDS ORDERED: LISINOPRIL 5 MG TAB PO SCH (09:00)
== END 2019-03-04 11:39 | disposition home or self-care (01) ==
LOC: EC 21:20 → 4SSUR 03-03 03:40
PROVIDERS: ADMIT Family Medicine; ATTEND Family Medicine
DX: R11.2 Nausea with vomiting, unspecified (principal); F20.9 Schizophrenia, unspecified; I71.4 Abdominal aortic aneurysm, without rupture; I77.1 Stricture of artery; T82.9XXA Unspecified complication of cardiac and vascular prosthetic device, implant and graft, initial encounter; F41.9 Anxiety disorder, unspecified; I25.10 Atherosclerotic heart disease of native coronary artery without angina pectoris; F03.90 Unspecified dementia, unspecified severity, without behavioral disturbance, psychotic disturbance, mood disturbance, and anxiety; E86.0 Dehydration; R10.9 Unspecified abdominal pain; R06.00 Dyspnea, unspecified; R07.9 Chest pain, unspecified; E78.5 Hyperlipidemia, unspecified; I11.0 Hypertensive heart disease with heart failure; I50.9 Heart failure, unspecified; G40.909 Epilepsy, unspecified, not intractable, without status epilepticus; I25.5 Ischemic cardiomyopathy; E03.9 Hypothyroidism, unspecified; F31.9 Bipolar disorder, unspecified; G62.9 Polyneuropathy, unspecified; G89.29 Other chronic pain; M54.9 Dorsalgia, unspecified; R51 Headache; D50.0 Iron deficiency anemia secondary to blood loss (chronic); Z79.890 Hormone replacement therapy; Z79.82 Long term (current) use of aspirin; Z79.899 Other long term (current) drug therapy; Z79.02 Long term (current) use of antithrombotics/antiplatelets; Z88.5 Allergy status to narcotic agent; Z88.0 Allergy status to penicillin; Z88.7 Allergy status to serum and vaccine; F17.200 Nicotine dependence, unspecified, uncomplicated; Z95.5 Presence of coronary angioplasty implant and graft; Z95.1 Presence of aortocoronary bypass graft; Z95.810 Presence of automatic (implantable) cardiac defibrillator; Z95.828 Presence of other vascular implants and grafts; Z83.1 Family history of other infectious and parasitic diseases; Z81.1 Family history of alcohol abuse and dependence; Z91.138 Patient's unintentional underdosing of medication regimen for other reason
CPT/HCPCS: 96376 ×2; 96375; 96361 ×2; 96374; 99285; 36415; 93005; 84439; 80164; 80053; 82550; 83605; 83735; 84443; 84484 ×2; 85025; 85610; 85730; 81003; 71046; 70450; 74177; G0378 ×2; J2405 ×3; J1885 ×2; Q9967

== ENCOUNTER → 2019-03-23 | Outpatient (CLI) | payer MEDICARE, OTHER ==
--- NOTE | 2019-03-23 11:22 | FL ---
EXAMINATION TYPE: FL barium swallow DATE OF EXAM: 03/23/2019 CLINICAL HISTORY: Epigastric pain. Distal esophageal wall thickening seen on the prior CT dated 2018 and 12/19/2018 TECHNIQUE: A double contrast esophagram is performed utilizing air and barium. A total of 1 minute and 41 seconds of fluoroscopic time was utilized during procedure. 47 fluoroscopic images were saved during the procedure. COMPARISON: CT dated 03/03/2019 and 12/19/2018 FINDINGS: The esophagus shows normal abnormal motility with tertiary contractions seen in the gravity independent and dependent positions. There is moderate intraesophageal reflux and mild gastroesophag eal reflux noted. There is normal emptying into the stomach. No evidence of hiatal hernia or strictu re noted. Additionally there is mild vallecular retention of contrast noted on the exam. IMPRESSION: 1. Abnormal esophageal motility with tertiary contractions most commonly related to presbyesophagus. This can also be seen in neuromuscular disorders. 2. Moderate intraesophageal reflux and mild gastroesophageal reflux. 3. Circumferential distal esophageal mucosal thickening seen on the prior CTs of 12/19/2018 and 03/03/20 19 could relate to the gastroesophageal reflux seen. This could be further evaluated with endoscopy.
== END | disposition home or self-care (01) ==
LOC: RADUSWWP 10:13
PROVIDERS: ATTEND Family Medicine
DX: K22.8 Other specified diseases of esophagus (principal); K21.9 Gastro-esophageal reflux disease without esophagitis
CPT/HCPCS: 74220

== ENCOUNTER 2019-05-05 00:32 | Inpatient (IN) | payer MEDICARE, OTHER ==
[2019-05-05] MEDS ORDERED: ASPIRIN 81 MG PO STA (01:16)
--- NOTE | 2019-05-05 01:20 | ED ---
General Adult HPI - General Chief complaint: Shortness of Breath Stated complaint: JONY Time Seen by Provider: 05/05/19 01:03 Source: patient, EMS Mode of arrival: EMS - History of Present Illness Initial comments: Patient is a 69-year-old male with with extensive cardiac history presenting to the emergency department with chief complaint of shortness of breath. Patient was brought to the ED via EMS and was given DuoNeb and 125 mg of Solu-Medrol. Patient reports it initially started with upper respiratory symptoms about one week ago and has since the patient has developed gradual shortness of breath. Patient also reports dyspnea on exertion. Patient is a smoker. Patient also reports low chest pain that feels more like pressure. Patient reports the pressure does not radiate anywhere. Patient denies diaphoresis nausea or vomiting. Patient does report chest pain on exertion. Patient reports his pacemaker "popped out of the pocket" about 7 months ago in the location is a follow-up. Patient reports that he does not have a hypoid gear tester here because he had moved from [place]. Patient reports he has been recently out of his antihypertensive medication. Patient has established peripheral vascular disease in the left leg. - Related Data Home Medications Medication Instructions Recorded Confirmed Aspirin EC [Ecotrin Low Dose] 81 mg PO DAILY 09/08/18 03/03/19 Metoprolol Tartrate [Lopressor] 12.5 mg PO BID 09/08/18 03/03/19 Simvastatin [Zocor] 20 mg PO HS 12/18/18 03/03/19 Torsemide [Demadex] 5 mg PO DAILY 12/18/18 03/03/19 Clopidogrel [Plavix] 75 mg PO DAILY 12/30/18 03/03/19 Ranitidine HCl [Zantac] 150 mg PO BID 12/30/18 03/03/19 Divalproex [Depakote] 500 mg PO HS 03/03/19 03/03/19 Levothyroxine Sodium [Synthroid] 75 mcg PO DAILY 03/03/19 03/03/19 Paliperidone IM [Invega Sustenna] 156 mg IM Q28D 03/03/19 03/03/19 Ramipril 1.25 mg PO DAILY 03/03/19 03/03/19 Previous Rx's Medication Instructions Recorded Venlafaxine HCl ER [Effexor XR] 150 mg PO DAILY #30 cap.er.24h 01/15/19 Allergies Allergy/AdvReac Type Severity Reaction Status Date / Time morphine Allergy Anaphylaxis Verified 03/03/19 09:07 Penicillins Allergy Unknown Verified 03/03/19 09:07 Influenza Virus Vaccines AdvReac Unknown Verified 03/03/19 09:07 pneumococcal vaccine AdvReac Unknown Verified 03/03/19 09:07 Review of Systems ROS Statement: Those systems with pertinent positive or pertinent negative responses have been documented in the HPI. ROS Other: All systems not noted in ROS Statement are negative. Past Medical History Past Medical History: Coronary Artery Disease (CAD), Heart Failure, Dementia, Hyperlipidemia, Hypertension, Seizure Disorder, Syncope, Thyroid Disorder Additional Past Medical History / Comment(s): Ischemic cardiomyopathy, EF 20- 25%, last seizure about 2 yrs ago, hypothyroid.neuropathy "WHEN HE WORKED HE HAD A CRUSHING INJURY -COLLAPSED LUNGS C/T AND HAS CHRONIC BACK PAIN"" pt states he is schizophrenic/bipolar. History of Any Multi-Drug Resistant Organisms: None Reported Past Surgical History: AICD, Back Surgery, Coronary Bypass/CABG, Heart Catheterization, Heart Catheterization With Stent Additional Past Surgical History / Comment(s): 1995 CABG 4 vessel in [place], has had 2"HEART CATHS/had 2 STENTS after cabg sx.pt stated they were done in [facility]. "sx on tailbone, cortisone injections, devin inguinal hernia repair Past Anesthesia/Blood Transfusion Reactions: No Reported Reaction Date of Last Stent Placement:: unk Type of Cardiac Device: AICD Device Placement Date:: ? 1995 in [facility] Past Psychological History: Anxiety, Depression, Schizoaffective Disorder, Schizophrenia Smoking Status: Current every day smoker Past Alcohol Use History: None Reported Past Drug Use History: None Reported - Past Family History Mother Family Medical History: Respiratory Disorder Additional Family Medical History / Comment(s): Mother had TB Father Additional Family Medical History / Comment(s): Father was an alcoholic. General Exam Limitations: no limitations General appearance: alert, in no apparent distress Head exam: Present: atraumatic, normocephalic, normal inspection Eye exam: Present: normal appearance, PERRL, EOMI Pupils: Present: normal accommodation ENT exam: Present: normal exam, normal oropharynx, mucous membranes moist, TM's normal bilaterally, normal external ear exam Neck exam: Present: normal inspection, full ROM Respiratory exam: Present: wheezes (Very mild bilateral wheezing), chest wall tenderness (Chest wall tenderness near the pacemaker.). Absent: decreased breath sounds Cardiovascular Exam: Present: regular rate, normal rhythm, normal heart sounds GI/Abdominal exam: Present: soft, normal bowel sounds. Absent: tenderness Extremities exam: Present: normal inspection, full ROM, normal capillary refill, other (+2 dorsalis pedis and posterior tibialis bilaterally. +2 ulnar and radial pulses bilaterally.) Back exam: Present: normal inspection, full ROM Neurological exam: Present: alert, oriented X3 Psychiatric exam: Present: normal affect, normal mood Skin exam: Present: warm, intact, normal color Course Vital Signs 05/05/19 05/05/19 05/05/19 00:44 02:04 05:20 Temperature 98.4 F 98.6 F 97.6 F Pulse Rate 62 63 60 Respiratory 18 18 18 Rate Blood Pressure 123/60 120/70 140/59 O2 Sat by Pulse 97 97 99 Oximetry EKG Findings - EKG Comments: EKG Findings:: Atrial paced rhythm, no ST elevations. Ventricular rate 61, WA interval 140, QRS duration 106, QT/QTc 420/4:30, p-r-t axes 70 33 -15 Medical Decision Making - Medical Decision Making Patient is a 69-year-old male presenting to emergency Department with a chief complaint of shortness of breath. Patient has extensive cardiac history. Patient reports shortness of breath for about a week as increased in severity. Patient reports left lower extremity establish peripheral vascular disease. C ardiac workup was initiated. Initial troponins are negative. Elevated d-dimer. CTA is indicative of 2 very small peripheral pulmonary emboli. Patient was given heparin and will be admitted for further medical management. BNP pending. Admitting physician is Dr. Verdin. All imaging, laboratory results and EKG discussed with Dr. Valle who was understanding and agreeable. - Lab Data Result diagrams: 05/05/19 01:50 05/05/19 01:50 Lab Results 05/05/19 05/05/19 05/05/19 Range/Units 01:50 01:50 01:50 WBC 5.7 (3.8-10.6) k/uL RBC 4.23 L (4.30-5.90) m/uL Hgb 12.8 L (13.0-17.5) gm/dL Hct 39.5 (39.0-53.0) % MCV 93.3 (80.0-100.0) fL MCH 30.3 (25.0-35.0) pg MCHC 32.4 (31.0-37.0) g/dL RDW 14.7 (11.5-15.5) % Plt Count 151 (150-450) k/uL Neutrophils % 55 % Lymphocytes % 37 % Monocytes % 4 % Eosinophils % 2 % Basophils % 1 % Neutrophils # 3.1 (1.3-7.7) k/uL Lymphocytes # 2.1 (1.0-4.8) k/uL Monocytes # 0.2 (0-1.0) k/uL Eosinophils # 0.1 (0-0.7) k/uL Basophils # 0.1 (0-0.2) k/uL PT (9.0-12.0) sec INR (<1.2) APTT (22.0-30.0) sec D-Dimer (<0.60) mg/L FEU Sodium 140 (137-145) mmol/L Potassium 3.8 (3.5-5.1) mmol/L Chloride 105 (98-107) mmol/L Carbon Dioxide 26 (22-30) mmol/L Anion Gap 9 mmol/L BUN 22 H (9-20) mg/dL Creatinine 1.10 (0.66-1.25) mg/dL Est GFR (CKD-EPI)AfAm 79 (>60 ml/min/1.73 sqM) Est GFR (CKD-EPI)NonAf 69 (>60 ml/min/1.73 sqM) Glucose 121 H (74-99) mg/dL Calcium 9.0 (8.4-10.2) mg/dL Magnesium 1.8 (1.6-2.3) mg/dL Total Bilirubin 0.2 (0.2-1.3) mg/dL AST 24 (17-59) U/L ALT 17 L (21-72) U/L Alkaline Phosphatase 66 (38-126) U/L Troponin I <0.012 (0.000-0.034) ng/mL Total Protein 6.8 (6.3-8.2) g/dL Albumin 3.8 (3.5-5.0) g/dL 05/05/19 Range/Units 02:17 WBC (3.8-10.6) k/uL RBC (4.30-5.90) m/uL Hgb (13.0-17.5) gm/dL Hct (39.0-53.0) % MCV (80.0-100.0) fL MCH (25.0-35.0) pg MCHC (31.0-37.0) g/dL RDW (11.5-15.5) % Plt Count (150-450) k/uL Neutrophils % % Lymphocytes % % Monocytes % % Eosinophils % % Basophils % % Neutrophils # (1.3-7.7) k/uL Lymphocytes # (1.0-4.8) k/uL Monocytes # (0-1.0) k/uL Eosinophils # (0-0.7) k/uL Basophils # (0-0.2) k/uL PT 10.6 (9.0-12.0) sec INR 1.0 (<1.2) APTT 23.4 (22.0-30.0) sec D-Dimer 4.37 H (<0.60) mg/L FEU Sodium (137-145) mmol/L Potassium (3.5-5.1) mmol/L Chloride (98-107) mmol/L Carbon Dioxide (22-30) mmol/L Anion Gap mmol/L BUN (9-20) mg/dL Creatinine (0.66-1.25) mg/dL Est GFR (CKD-EPI)AfAm (>60 ml/min/1.73 sqM) Est GFR (CKD-EPI)NonAf (>60 ml/min/1.73 sqM) Glucose (74-99) mg/dL Calcium (8.4-10.2) mg/dL Magnesium (1.6-2.3) mg/dL Total Bilirubin (0.2-1.3) mg/dL AST (17-59) U/L ALT (21-72) U/L Alkaline Phosphatase (38-126) U/L Troponin I (0.000-0.034) ng/mL Total Protein (6.3-8.2) g/dL Albumin (3.5-5.0) g/dL Disposition Clinical Impression: Pulmonary embolism, Shortness of breath Disposition: ADMITTED IP TO THIS HOSP Condition: Stable Additional Instructions: Patient will be admitted Is patient prescribed a controlled substance at d/c from ED?: No Referrals: Raffaele Verdin MD [Primary Care Provider] - 1-2 days Time of Disposition: 05:33
--- NOTE | 2019-05-05 01:47 | XR ---
EXAMINATION TYPE: XR chest 2V DATE OF EXAM: 05/05/2019 COMPARISON: 03/03/2019 HISTORY: Short of breath TECHNIQUE: Frontal and lateral views of the chest are obtained. FINDINGS: There is no heart failure nor confluent pneumonic infiltrate. Costophrenic angles are carmen r. There is a right axillary pacemaker. There are sternal wires. There are chest leads. IMPRESSION: No active cardiopulmonary disease. No change. Previous surgery.
[2019-05-05 02:46] LABS: Albumin 3.8 g/dL (3.5-5.0); Magnesium 1.8 mg/dL (1.6-2.3); Potassium 3.8 mmol/L (3.5-5.1); Total Bilirubin 0.2 mg/dL (0.2-1.3); Total Protein 6.8 g/dL (6.3-8.2)
[2019-05-05 02:52] LABS: Basophils # (A) 0.1 k/uL (0-0.2); Basophils % (A) 1 %; Eosinophils # (A) 0.1 k/uL (0-0.7); Eosinophils % (A) 2 %; HCT 39.5 % (39.0-53.0); HGB 12.8 gm/dL (13.0-17.5); Lymphocytes # (A) 2.1 k/uL (1.0-4.8); Lymphocytes % (A) 37 %; MCH 30.3 pg (25.0-35.0); MCHC 32.4 g/dL (31.0-37.0); MCV 93.3 fL (80.0-100.0); Mean Platelet Volume 7.5; Monocytes # (A) 0.2 k/uL (0-1.0); Monocytes % (A) 4 %; Neutrophils # (A) 3.1 k/uL (1.3-7.7); Neutrophils % (A) 55 %; Platelet Count 151 k/uL (150-450); RBC 4.23 m/uL (4.30-5.90); RDW 14.7 % (11.5-15.5); WBC 5.7 k/uL (3.8-10.6)
[2019-05-05 02:54] LABS: Partial Thromboplastin Time 23.4 sec (22.0-30.0); Prothrombin Time 10.6 sec (9.0-12.0)
[2019-05-05 02:59] LABS: D-Dimer 4.37 mg/L FEU (<0.60)
--- NOTE | 2019-05-05 04:46 | CT ---
EXAM: CT Angiography Chest With Intravenous Contrast CLINICAL HISTORY: Elevated d-dimer. Evaluate for pulmonary embolism. TECHNIQUE: Axial computed tomographic angiography images of the chest with intravenous contrast using pulmonary embolism protocol. CTDI is 10.4 mGy and DLP is 351 mGy-cm. This CT exam was performed using one or more of the following dose reduction techniques: automated exposure control, adjustment of the mA and/or kV according to patient size, and/or use of iterative reconstruction technique. MIP reconstructed images were created and reviewed. COMPARISON: 03/03/2019. FINDINGS: Pulmonary arteries: No central pulmonary embolism is noted. Small peripheral pulmonary emboli are noted posterior medially at the right lung base, best seen on series 406 image 91. Aorta: Minimal atherosclerotic disease of the thoracic aorta is noted which is otherwise unremarkable. No thoracic aortic aneurysm. Lungs: Minimal bullous changes are noted at the lung apices. Subsegmental atelectasis is noted posteriorly at the right lung base. Minimal fiber nodularity is noted posterior medially at the right lung base most likely basilar scarring. As a precaution measure, short-term reimaging in 4 months is advised for reassessment. Subsegmental atelectasis at the left lung base is noted. The airway is patent. No mass. Pleural space: Unremarkable. No significant effusion. No pneumothorax. Heart: There is mild cardiomegaly. There is thickening of the jerome of the distal esophagus. The possibility of esophagitis should be considered. Mars's esophagus cannot be excluded. No significant pericardial effusion. No evidence of RV dysfunction. Bones/joints: Mild to moderate degenerative disc disease of the thoracic spine is noted. Ribs are unremarkable. No acute fracture. No dislocation. Soft tissues: Unremarkable. Lymph nodes: Unremarkable. No enlarged lymph nodes. Liver: There is evidence of previous granulomatous disease as manifested by punctate calcifications within the liver and the spleen. Tubes, lines and devices: Pacemaker overlies the right upper chest. Other findings: ASCVD. Upper abdominal viscera are otherwise grossly unremarkable. IMPRESSION: Tiny peripheral pulmonary emboli of the right lower lobe. As noted above, fibro--nodularity is noted posterior medially at the right lung base which is most likely base of scarring. As a precaution measure, repeat CT imaging of the chest in 6 months is advised to follow. <MYCVCSECTION> [employer] 05/05/19 04:52 Call Doctor Regarding Pulmonary Embolism, called PILO Verdin on 05/05 04:51 (-04:00)
[2019-05-05] MEDS ORDERED: HEPARIN SODIUM,PORCINE 5,000 UNIT/ML 1 ML VIAL IV PRN (05:09)
[2019-05-05] MEDS ORDERED: HEPARIN SODIUM,PORCINE 10,000 UNIT/ML 1 ML VIAL IV ONE (05:09)
[2019-05-05] MEDS ORDERED: NALOXONE 0.4 MG/ML 1 ML VIAL IV PRN (05:35)
[2019-05-05] MEDS: HEPARIN SOD,PORK IN 0.45% NACL 25,000 UNIT in 0.45% NACL 1 250ML.BAG IV SCH (05:36)
[2019-05-05] MEDS ORDERED: HYDROmorphone 0.5 MG/0.5 ML SYRINGE IVP STA (06:03)
[2019-05-05 06:36] LABS: Glucose,Whole Blood 182 mg/dL (75-99)
[2019-05-05] MEDS: SODIUM CHLORIDE 0.9% 1,000 ML IV SCH ×2 (08:52→17:45)
[2019-05-05] MEDS ORDERED: ENOXAPARIN 100 MG/ML SYRINGE SQ SCH (09:00)
[2019-05-05] MEDS: HYDROmorphone 1 MG/ML 1 ML SYRINGE IVP PRN ×4 (12:01→23:58)
[2019-05-05 12:36] VITALS: BMI 23.2
[2019-05-05] MEDS ORDERED: IPRATROPIUM-ALBUTEROL 3 ML NEB INHALATION PRN (15:44)
--- NOTE | 2019-05-05 16:41 | US ---
EXAMINATION TYPE: US venous doppler duplex LE BI DATE OF EXAM: 05/05/2019 4:22 PM COMPARISON: NONE CLINICAL HISTORY: dvt. known PE SIDE PERFORMED: Bilateral TECHNIQUE: The lower extremity deep venous system is examined utilizing real time linear array sonog alejandra with graded compression, doppler sonography and color-flow sonography. VESSELS IMAGED: External Iliac Vein (EIV) Common Femoral Vein Deep Femoral Vein Greater Saphenous Vein * Femoral Vein Popliteal Vein Small Saphenous Vein * Proximal Calf Veins (* superficial vessels) Right Leg: Negative for DVT Left Leg: Negative for DVT IMPRESSION: No evidence of deep venous thrombosis in both legs.
[2019-05-05 16:54] LABS: Glucose,Whole Blood 152 mg/dL (75-99)
--- NOTE | 2019-05-05 17:04 | HP ---
HISTORY AND PHYSICAL Magaly Morales is a 69-year-old male who presented to the ED at [facility] with shortness of breath for about 1 week duration. This has been associated with chest pain bilaterally somewhat posteriorly. He also had cough and wheezing. He was seen in the ER. A CT scan was done which showed evidence of 2 small pulmonary emboli in the periphery in the right lower lobe. He subsequently was admitted for further evaluation and management. He continues to have some shortness of breath at this time. He denies any fever, but had some chills. He has also been having again cough and wheezing. PAST MEDICAL HISTORY: Positive for cardiac arrhythmia for which he has had an AICD in his right chest wall, which apparently it did move. History of ischemic cardiomyopathy with an EF of 20-25 percent. History of the previously collapsed lung due to a crushing injury. History of chronic back pain. History of schizophrenia. History of cardiac cath with previous coronary artery bypass. History of bilateral inguinal hernia repair. History of seizure disorder, history of hyperlipidemia, hypertension, dementia. FAMILY HISTORY: Positive for TB in his mother. Father had a history of alcoholism. SOCIAL HISTORY: Patient is an everyday smoker. Does not drink alcohol excessively. MEDICATIONS: Prior to admission were Demadex, Zocor, Zantac, ramipril, Invega Sustenna, Lopressor, Synthroid, Plavix, and Ecotrin. Effexor XR, Depakote. REVIEW OF SYSTEMS: Noncontributory. PHYSICAL EXAMINATION: He was lying in bed. His blood pressure is 102/58, respiratory rate 22, pulse rate is 74, temperature 98.4, O2 saturation on room air is 96%. HEENT reveals pupils are equal, mild prominence of the jugular vein. Chest revealed decreased breath sounds with prolonged expiration. Expiratory wheeze. Cardiovascular system is S1, S2. Abdomen is soft. There is trace pedal edema. Glucose is 182. Troponin is less than 0.012. Sodium 140, potassium 3.8, chloride 105, bicarb 26, BUN 22, creatinine 1.1. D- dimer 4.37. ALT, AST were [address] scan of the chest was personally reviewed and shows no pulmonary emboli in the central pulmonary vasculature. There is suspicion of a tiny peripheral pulmonary emboli in the right lower lobe. There is some fibrin nodularity noted in the posterior medial of the right lung base as well. IMPRESSION: At this time: 1. Shortness of breath with chest pain secondary to asthma with chronic obstructive pulmonary disease with acute exacerbation. 2. Doubt pulmonary emboli and even if they are small, they may be clinically insignificant. 3. Chronic back pain. 4. Cardiomyopathy. At this point in time from a pulmonary standpoint, would continue the IV heparin. Check duplex of the lower extremities. If these are negative, would consider discontinuing the heparin. Would keep him on IV steroids, bronchodilators, aerosolized steroids. Optimize his fluid status. Depending on how he does, we should make further changes to his care. He was counseled regarding his condition and has a fair understanding of his plan of care. MMMARVEL / IJN: [id number] /
[2019-05-05] MEDS: LISINOPRIL 5 MG TAB PO SCH (17:38)
[2019-05-05] MEDS: LEVOTHYROXINE 75 MCG TAB PO SCH (17:38)
[2019-05-05] MEDS: CLOPIDOGREL 75 MG TAB PO SCH (17:38)
[2019-05-05] MEDS: ASPIRIN 81 MG PO SCH (17:38)
[2019-05-05] MEDS: INSULIN ASPART (NovoLOG) 100 UNIT/ML VIAL SQ SCH ×2 (17:39→21:23)
[2019-05-05] MEDS: methylPREDNISolone SOD SUCCI 125 MG/2 ML VIAL IV SCH ×2 (17:39→23:57)
[2019-05-05] MEDS: BUDESONIDE 0.5 MG/2 ML NEBU INHALATION SCH (19:29)
[2019-05-05] MEDS: ATORVASTATIN 10 MG TAB PO SCH (20:31)
[2019-05-05] MEDS: FUROSEMIDE 10 MG/ML 4 ML VIAL IV SCH (20:31)
[2019-05-05] MEDS: FAMOTIDINE 20 MG/2 ML VIAL IV SCH (20:31)
[2019-05-05] MEDS: VENLAFAXINE HCL ER 150 MG CAP PO SCH (20:31)
[2019-05-05] MEDS: MONTELUKAST 10 MG TAB PO SCH (20:31)
[2019-05-05] MEDS: METOPROLOL TARTRATE 12.5 MG TAB PO SCH (20:42)
[2019-05-05] MEDS: DIVALPROEX 500 MG TABLET.DR PO SCH (20:43)
[2019-05-05] MEDS ORDERED: NON FORMULARY DRUG (Ranitidine Hcl [Zantac] 150 MG) PO SCH (21:00)
[2019-05-05 21:19] LABS: Glucose,Whole Blood 147 mg/dL (75-99)
[2019-05-06] MEDS: HYDROmorphone 1 MG/ML 1 ML SYRINGE IVP PRN ×5 (03:09→20:23)
[2019-05-06] MEDS: HEPARIN SOD,PORK IN 0.45% NACL 25,000 UNIT in 0.45% NACL 1 250ML.BAG IV SCH (03:10)
[2019-05-06 05:04] LABS: Anisocytosis Slight; Basophils % (A) 0 %; Eosinophils % (A) 0 %; HCT 37.1 % (39.0-53.0); HGB 11.9 gm/dL (13.0-17.5); Lymphocytes # (A) 1.5 k/uL (1.0-4.8); Lymphocytes % (A) 11 %; MCH 30.3 pg (25.0-35.0); MCV 94.6 fL (80.0-100.0); Mean Platelet Volume 8.1; Monocytes # (A) 0.3 k/uL (0-1.0); Monocytes % (A) 2 %; Neutrophils % (A) 86 %; Platelet Count 170 k/uL (150-450); RBC 3.92 m/uL (4.30-5.90); WBC 13.9 k/uL (3.8-10.6)
[2019-05-06 05:14] LABS: Calcium 9.2 mg/dL (8.4-10.2)
[2019-05-06 05:27] LABS: Potassium 5.1 mmol/L (3.5-5.1)
[2019-05-06] MEDS: LEVOTHYROXINE 75 MCG TAB PO SCH (06:41)
[2019-05-06] MEDS: methylPREDNISolone SOD SUCCI 125 MG/2 ML VIAL IV SCH ×4 (06:41→23:49)
[2019-05-06 07:01] LABS: Glucose,Whole Blood 146 mg/dL (75-99)
[2019-05-06 07:07] LABS: Glucose,Whole Blood 150 mg/dL (75-99)
[2019-05-06] MEDS: INSULIN ASPART (NovoLOG) 100 UNIT/ML VIAL SQ SCH ×4 (07:33→21:29)
[2019-05-06] MEDS: FUROSEMIDE 10 MG/ML 4 ML VIAL IV SCH ×2 (09:35→20:18)
[2019-05-06] MEDS: METOPROLOL TARTRATE 12.5 MG TAB PO SCH ×2 (09:36→20:18)
[2019-05-06] MEDS: FAMOTIDINE 20 MG/2 ML VIAL IV SCH ×2 (09:38→20:18)
[2019-05-06] MEDS: VENLAFAXINE HCL ER 150 MG CAP PO SCH (09:39)
[2019-05-06] MEDS: BUDESONIDE 0.5 MG/2 ML NEBU INHALATION SCH ×2 (09:41→19:19)
[2019-05-06] MEDS: ASPIRIN 81 MG PO SCH (09:44)
[2019-05-06] MEDS: CLOPIDOGREL 75 MG TAB PO SCH (09:44)
[2019-05-06] MEDS: SODIUM CHLORIDE 0.9% 1,000 ML IV SCH ×2 (09:51→20:19)
[2019-05-06 12:01] LABS: Glucose,Whole Blood 178 mg/dL (75-99)
[2019-05-06] MEDS: LISINOPRIL 5 MG TAB PO SCH (13:27)
[2019-05-06 13:38] LABS: Glucose,Whole Blood 206 mg/dL (75-99)
[2019-05-06 17:02] LABS: Glucose,Whole Blood 127 mg/dL (75-99)
[2019-05-06] MEDS: MONTELUKAST 10 MG TAB PO SCH (20:18)
[2019-05-06] MEDS: HEPARIN SODIUM,PORCINE 5,000 UNIT/ML 1 ML VIAL SQ SCH (20:18)
[2019-05-06] MEDS: DIVALPROEX 500 MG TABLET.DR PO SCH (20:19)
[2019-05-06] MEDS: ATORVASTATIN 10 MG TAB PO SCH (20:19)
--- NOTE | 2019-05-06 21:17 | PN ---
PROGRESS NOTE DATE OF SERVICE: May 06, 2019. He does not have any chest pain. He has less shortness of breath. His venous duplex of the lower extremities was negative. His heparin was subsequently stopped. On physical examination, his blood pressure 106/58, respiratory rate of 22, pulse rate of 60, temperature 98.3. HEENT is unremarkable. Chest reveals prolonged exhalation. No wheeze today. Cardiovascular system reveals an S1, S2. Abdomen is soft. There is no edema. IMPRESSION: At this time is: 1. Asthma with chronic obstructive pulmonary disease with acute exacerbation. 2. Doubt significantly clinically pulmonary emboli and thus heparin has been discontinued. 3. Cardiomyopathy. Continue Plavix, aspirin, cardiac medications. Have him seen by Cardiology regarding his AICD. He was counseled regarding his condition and this approach. MMODL / IJN: [id number] /
[2019-05-06 21:39] LABS: Glucose,Whole Blood 168 mg/dL (75-99)
[2019-05-07 05:17] LABS: Basophils % (A) 0 %; Eosinophils % (A) 0 %; HCT 34.7 % (39.0-53.0); HGB 11.5 gm/dL (13.0-17.5); Lymphocytes # (A) 1.5 k/uL (1.0-4.8); Lymphocytes % (A) 12 %; MCHC 33.1 g/dL (31.0-37.0); MCV 90.8 fL (80.0-100.0); Mean Platelet Volume 8.1; Monocytes # (A) 0.4 k/uL (0-1.0); Monocytes % (A) 3 %; Neutrophils # (A) 10.8 k/uL (1.3-7.7); Neutrophils % (A) 84 %; Platelet Count 196 k/uL (150-450); RBC 3.82 m/uL (4.30-5.90); RDW 15.8 % (11.5-15.5); WBC 12.8 k/uL (3.8-10.6)
[2019-05-07 05:37] LABS: Calcium 8.8 mg/dL (8.4-10.2); Potassium 4.2 mmol/L (3.5-5.1)
[2019-05-07] MEDS: methylPREDNISolone SOD SUCCI 125 MG/2 ML VIAL IV SCH ×3 (05:40→17:57)
[2019-05-07] MEDS: LEVOTHYROXINE 75 MCG TAB PO SCH (05:40)
[2019-05-07] MEDS: INSULIN ASPART (NovoLOG) 100 UNIT/ML VIAL SQ SCH ×4 (07:02→20:39)
[2019-05-07 07:06] LABS: Glucose,Whole Blood 138 mg/dL (75-99)
[2019-05-07] MEDS: BUDESONIDE 0.5 MG/2 ML NEBU INHALATION SCH ×2 (07:48→19:28)
[2019-05-07] MEDS: FAMOTIDINE 20 MG/2 ML VIAL IV SCH ×2 (08:49→20:40)
[2019-05-07] MEDS: HEPARIN SODIUM,PORCINE 5,000 UNIT/ML 1 ML VIAL SQ SCH ×2 (08:49→20:41)
[2019-05-07] MEDS: FUROSEMIDE 10 MG/ML 4 ML VIAL IV SCH ×2 (08:49→20:40)
[2019-05-07] MEDS: CLOPIDOGREL 75 MG TAB PO SCH (08:50)
[2019-05-07] MEDS: VENLAFAXINE HCL ER 150 MG CAP PO SCH (08:50)
[2019-05-07] MEDS: ASPIRIN 81 MG PO SCH (08:50)
[2019-05-07] MEDS: METOPROLOL TARTRATE 12.5 MG TAB PO SCH ×2 (08:50→20:39)
[2019-05-07] MEDS: LISINOPRIL 5 MG TAB PO SCH (08:50)
[2019-05-07 11:47] LABS: Glucose,Whole Blood 127 mg/dL (75-99)
--- NOTE | 2019-05-07 15:32 | P.PN ---
Subjective Progress Note Date: 05/07/19 This is a 69-year-old gentleman currently overflow in the ICU admitted with chest pain, acute COPD exacerbation, and multiple other medical issues. Initially placed on heparin for potential PE, significantly doubted, heparin drip discontinued as per pulmonary. Maintained on nebulized bronchodilators, steroids. Cardiology consult in place with recommendations pending. Telemetry sinus rhythm. Ambulating, Tolerating exertion well. Denies chest pain, palpitations or increased shortness of breath. Vital signs stable, maintaining O2 sats in the high 90s on room air. Denies lightheadedness dizziness or focal deficits. 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 Creatinine 1.15. Objective - Vital Signs Vital signs: Vital Signs Temp 97.8 F 05/07/19 08:00 Pulse 60 05/07/19 12:00 Resp 15 05/07/19 12:00 BP 127/69 05/07/19 12:00 Pulse Ox 98 05/07/19 12:00 Intake & Output 05/06/19 05/07/19 05/07/19 18:59 06:59 18:59 Intake Total 941.12 1400 400 Output Total 1600 2400 3700 Balance -658.88 -1000 -3300 Weight 65.8 kg Intake: IV 375 900 Sodium Chloride 0.9% 1, 375 900 000 ml @ 75 mls/hr IV . [id number] RADHA Rx#:[id number] Intake, IV Titration 66.12 Amount Heparin Sod,Pork in 0.45% 66.12 NaCl 25,000 unit In 0.45 % NaCl 1 250ml.bag @ 18 UNITS/KG/HR 11.839 mls/hr IV .[id number] RADHA Rx#: [id number] Oral 500 500 400 Output: Urine 1600 2400 3700 Other: Voiding Method Bedpan Toilet Toilet Urinal Urinal - Exam PHYSICAL EXAM: VITAL SIGNS: As above GENERAL: Sitting up in bed, no acute distress HEENT: Conjunctivae normal. eyes normal. Oral mucosa moist NECK: No JVD. No thyroid enlargement. No LNs CARDIOVASCULAR: S1, S2 regular.. No murmur RESPIRATION: Breath sounds diminished in the bases. No rhonchi or crackles. No wheezing. ABDOMEN: Soft, nontender . No guarding. no masses palpable. No ascites, No hepatosplenomegaly.Bowel sounds heard. LEGS: No edema. no swelling PSYCHIATRY: Alert and oriented X3, mood and affect normal. NERVOUS SYSTEM: Cranial N 2-12 grossly normal. Moves all 4 limbs. No focal deficits. Strength and sensation grossly intact.. Skin: no lesions, no rash Lymphatic system. No LN neck axilla. - Labs CBC & Chem 7: 05/07/19 04:29 05/07/19 04:29 Labs: Abnormal Lab Results - Last 24 Hours (Table) 05/06/19 05/06/19 05/07/19 Range/Units 16:51 21:25 04:29 WBC 12.8 H (3.8-10.6) k/uL RBC 3.82 L (4.30-5.90) m/uL Hgb 11.5 L (13.0-17.5) gm/dL Hct 34.7 L (39.0-53.0) % RDW 15.8 H (11.5-15.5) % Neutrophils # 10.8 H (1.3-7.7) k/uL Sodium (137-145) mmol/L Chloride (98-107) mmol/L BUN (9-20) mg/dL Glucose (74-99) mg/dL POC Glucose (mg/dL) 127 H 168 H (75-99) mg/dL 05/07/19 05/07/19 05/07/19 Range/Units 04:29 06:53 11:36 WBC (3.8-10.6) k/uL RBC (4.30-5.90) m/uL Hgb (13.0-17.5) gm/dL Hct (39.0-53.0) % RDW (11.5-15.5) % Neutrophils # (1.3-7.7) k/uL Sodium 133 L (137-145) mmol/L Chloride 95 L (98-107) mmol/L BUN 23 H (9-20) mg/dL Glucose 117 H (74-99) mg/dL POC Glucose (mg/dL) 138 H 127 H (75-99) mg/dL Assessment and Plan Assessment: -Acute COPD exacerbation -Acute on chronic CHF exacerbation, systolic dysfunction -Abdominal aortic aneurysm, 4.7 cm, unchanged and unchanged borderline right common iliac aortic aneurysm measuring up to 1.5 cm routine outpatient monitoring recommended -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 Overflow. Cardiology consult in place with recommendations pending. Maintain nebulized bronchodilators. Steroid weaning as per pulmonary. Increase ambulation as tolerated. Vascular surgery consulted. The impression and plan of care has been dictated as directed. : I performed a history and examination of this patient, discussed the same with the dictator. I agree with the dictator's note ,documented as a scribe. Any additional findings or plans will be noted.
--- NOTE | 2019-05-07 17:12 | P.CRDCN ---
History of Present Illness Consult date: 05/07/19 History of present illness: This is a 69-year-old gentleman who was admitted to the emergency room with complaints of shortness of breath for one week duration. Patient also complains sometimes of chest pain. . He claimed the chest pain was increasing on deep breathing. Apparently patient also complained of cough and wheezing. In the emergency room. A computed tomography scan showed evidence of 2 small pulmonary emboli in the periphery of the right normal. He was seen by city planning teacher and he felt that his symptoms are mostly related to exacerbation of COPD. Patient also has history of cardiomyopathy and had a previous AICD implantation. It was done in [place]. Apparently hasn't had any follow-up for one year. He claims that his AICD has moved up towards over the clavicle. He has a ejection fraction about 20-25%. Currently patient is currently stable. His lab values showed mildly elevated white count with hemoglobin of 11.5. His troponins are n egative. His proBNP is only 489. At this point, patient seemed to become clinically stable. He needs to have his AICD evaluated. This can be done as an outpatient. Patient could be discharged home and patient is medically stable. Follow-up as an outpatient Review of Systems As per the chart Past Medical History Past Medical History: Coronary Artery Disease (CAD), Heart Failure, Dementia, Hyperlipidemia, Hypertension, Seizure Disorder, Syncope, Thyroid Disorder Additional Past Medical History / Comment(s): Ischemic cardiomyopathy, EF 20- 25%, last seizure about 2 yrs ago, hypothyroid.neuropathy "WHEN HE WORKED HE HAD A CRUSHING INJURY -COLLAPSED LUNGS C/T AND HAS CHRONIC BACK PAIN"" pt states he is schizophrenic/bipolar. History of Any Multi-Drug Resistant Organisms: None Reported Past Surgical History: AICD, Back Surgery, Coronary Bypass/CABG, Heart Catheterization, Heart Catheterization With Stent Additional Past Surgical History / Comment(s): 1995 CABG 4 vessel in [place], has had 2"HEART CATHS/had 2 STENTS after cabg sx.pt stated they were done in [facility]. "sx on tailbone, cortisone injections, devin inguinal hernia repair Past Anesthesia/Blood Transfusion Reactions: No Reported Reaction Date of Last Stent Placement:: 1995 Type of Cardiac Device: AICD Device Placement Date:: [address] [facility] Past Psychological History: Anxiety, Depression, Schizoaffective Disorder, Schizophrenia Additional Psychological History / Comment(s): . Smoking Status: Current every day smoker Past Alcohol Use History: None Reported Additional Past Alcohol Use History / Comment(s): . Past Drug Use History: None Reported Additional Drug Use History / Comment(s): Pt states he smokes marijuana on occasion. - Past Family History Mother Family Medical History: Respiratory Disorder Additional Family Medical History / Comment(s): Mother had TB Father Additional Family Medical History / Comment(s): Father was an alcoholic. Medications and Allergies Home Medications Medication Instructions Recorded Confirmed Type Aspirin EC [Ecotrin Low Dose] 81 mg PO DAILY 09/08/18 05/05/19 History Metoprolol Tartrate [Lopressor] 12.5 mg PO BID 09/08/18 05/05/19 History Simvastatin [Zocor] 20 mg PO HS 12/18/18 05/05/19 History Torsemide [Demadex] 5 mg PO DAILY 12/18/18 05/05/19 History Clopidogrel [Plavix] 75 mg PO DAILY 12/30/18 05/05/19 History Ranitidine HCl [Zantac] 150 mg PO BID 12/30/18 05/05/19 History Venlafaxine HCl ER [Effexor XR] 150 mg PO DAILY #30 cap.er.24h 01/15/19 05/05/19 Rx Divalproex [Depakote] 500 mg PO HS 03/03/19 05/05/19 History Levothyroxine Sodium [Synthroid] 75 mcg PO DAILY 03/03/19 05/05/19 History Paliperidone IM [Invega Sustenna] 156 mg IM Q28D 03/03/19 05/05/19 History Ramipril 1.25 mg PO DAILY 03/03/19 05/05/19 History Allergies Allergy/AdvReac Type Severity Reaction Status Date / Time morphine Allergy Anaphylaxis Verified 03/03/19 09:07 Penicillins Allergy Unknown Verified 03/03/19 09:07 Influenza Virus Vaccines AdvReac Unknown Verified 03/03/19 09:07 pneumococcal vaccine AdvReac Unknown Verified 03/03/19 09:07 Physical Exam Vitals: Vital Signs Temp Pulse Resp BP Pulse Ox 05/07/19 16:00 73 26 H 101/70 98 05/07/19 12:00 60 15 127/69 98 05/07/19 08:00 97.8 F 71 16 104/58 05/07/19 04:00 60 16 104/58 95 05/07/19 00:00 98.7 F 62 18 108/66 96 05/06/19 20:00 97.8 F 61 18 110/97 96 Intake and Output 05/07/19 05/07/19 05/07/19 06:59 14:59 22:59 Intake Total 1100 400 400 Output Total 1900 3700 800 Balance -800 -3300 -400 Intake: IV 600 Sodium Chloride 0.9% 1, 600 000 ml @ 75 mls/hr IV . [id number] RADHA Rx#:[id number] Oral 500 400 400 Output: Urine 1900 3700 800 Other: Voiding Method Toilet Toilet Urinal Urinal Weight 65.8 kg GENERAL EXAM: Patient is alert and oriented and doesn't appear to be in any acute distress HEENT: Normocephalic. Normal reaction of pupils, equal size, normal range of extraocular motion. No erythema or exudates in the throat. NECK: No masses, no nuchal rigidity. CHEST: No chest wall deformity. LUNGS: Equal air entry with no crackles or wheeze. HEART: S1 and S2 normal with no audible mumurs or gallops. Regular rhythm, femorals equal on both sides.. ABDOMEN: No hepatosplenomegaly, normal bowel sounds, no guarding or rigidity. SKIN: No rashes CENTRAL NERVOUS SYSTEM: No focal deficits. EXTREMITIES: No cyanosis, clubbing or edema. Results 05/07/19 04:29 05/07/19 04:29 CBC 05/07/19 Range/Units 04:29 WBC 12.8 H (3.8-10.6) k/uL RBC 3.82 L (4.30-5.90) m/uL Hgb 11.5 L (13.0-17.5) gm/dL Hct 34.7 L (39.0-53.0) % Plt Count 196 (150-450) k/uL Comprehensive Metabolic Panel 05/07/19 Range/Units 04:29 Sodium 133 L (137-145) mmol/L Potassium 4.2 (3.5-5.1) mmol/L Chloride 95 L (98-107) mmol/L Carbon Dioxide 29 (22-30) mmol/L BUN 23 H (9-20) mg/dL Creatinine 1.15 (0.66-1.25) mg/dL Glucose 117 H (74-99) mg/dL Calcium 8.8 (8.4-10.2) mg/dL Current Medications Generic Name Dose Route Start Last Admin Trade Name Freq PRN Reason Stop Dose Admin Albuterol/Ipratropium 3 ml 05/05/19 15:44 Duoneb 0.5 Mg-3 Mg/3 Ml Soln INHALATION RT-QID PRN Shortness Of Breath Or Wheezing Aspirin 81 mg 05/05/19 16:45 05/07/19 08:50 Aspirin PO 81 mg DAILY RADHA Administration Atorvastatin Calcium 10 mg 05/05/19 21:00 05/06/19 20:19 Lipitor PO 10 mg HS RADHA Administration Budesonide 0.5 mg 05/05/19 20:00 05/07/19 07:48 Pulmicort INHALATION Not Given RT-BID RADHA Clopidogrel Bisulfate 75 mg 05/05/19 16:45 05/07/19 08:50 Plavix PO 75 mg DAILY RADHA Administration Divalproex Sodium 500 mg 05/05/19 21:00 05/06/19 20:19 Depakote PO 500 mg HS RADHA Administration Famotidine 20 mg 05/05/19 21:00 05/07/19 08:49 Pepcid IV 20 mg Q12HR RADHA Administration Furosemide 40 mg 05/05/19 21:00 05/07/19 08:49 Lasix IV 40 mg Q12HR RADHA Administration Heparin Sodium (Porcine) 5,000 unit 05/06/19 21:00 05/07/19 08:49 Heparin SQ 5,000 unit Q12HR [facility] Administration Hydromorphone HCl 1 mg 05/05/19 05:35 05/06/19 20:23 Dilaudid IVP 1 mg Q3HR PRN Administration Severe Pain Insulin Aspart 0 unit 05/05/19 17:30 05/07/19 11:41 Novolog SQ Not Given ACHS [facility] Protocol Levothyroxine Sodium 75 mcg 05/05/19 16:45 05/07/19 05:40 Synthroid PO 75 mcg DAILY@0630 RADHA Administration Lisinopril 5 mg 05/05/19 16:45 05/07/19 08:50 Zestril PO 5 mg DAILY RADHA Administration Methylprednisolone Sodium Succinate 60 mg 05/05/19 18:00 05/07/19 11:42 Solu-Medrol IV 60 mg Q6HR RADHA Administration Metoprolol Tartrate 12.5 mg 05/05/19 21:00 05/07/19 08:50 Lopressor PO 12.5 mg BID RADHA Administration Montelukast Sodium 10 mg 05/05/19 21:00 05/06/19 20:18 Singulair PO 10 mg HS RADHA Administration Naloxone HCl 0.2 mg 05/05/19 05:35 Narcan IV Q2M PRN Opioid Reversal Venlafaxine HCl 150 mg 05/05/19 16:45 05/07/19 08:50 Effexor Xr PO 150 mg DAILY RADHA Administration Intake and Output 05/07/19 05/07/19 05/07/19 06:59 14:59 22:59 Intake Total 1100 400 400 Output Total 1900 3700 800 Balance -800 -3300 -400 Intake: IV 600 Sodium Chloride 0.9% 1, 600 000 ml @ 75 mls/hr IV . [id number] RADHA Rx#:[id number] Oral 500 400 400 Output: Urine 1900 3700 800 Other: Voiding Method Toilet Toilet Urinal Urinal Weight 65.8 kg 05/07/19 04:29 05/07/19 04:29 EKG Interpretations (text) Atrial pacer rhythm Assessment and Plan (1) COPD with exacerbation Current Visit: Yes Status: Acute Code(s): J44.1 - CHRONIC OBSTRUCTIVE PULMONARY DISEASE W (ACUTE) EXACERBATION SNOMED Code(s): 576234149 (2) Bipolar disorder Current Visit: No Status: Acute Code(s): F31.9 - BIPOLAR DISORDER, UNS PECIFIED SNOMED Code(s): 25246458 (3) Cardiomyopathy Current Visit: No Status: Acute Code(s): I42.9 - CARDIOMYOPATHY, UNSPECIFIED SNOMED Code(s): 03465093 (4) AICD (automatic cardioverter/defibrillator) present Current Visit: Yes Status: Acute Code(s): Z95.810 - PRESENCE OF AUTOMATIC (IMPLANTABLE) CARDIAC DEFIBRILLATOR SNOMED Code(s): 849929135 Plan: From cardiac standpoint. Patient seemed to be clinically stable. When medically stable, patient could be discharged home. Follow-up as an outpatient for AICD management
[2019-05-07 17:19] LABS: Glucose,Whole Blood 161 mg/dL (75-99)
[2019-05-07] MEDS: HYDROmorphone 1 MG/ML 1 ML SYRINGE IVP PRN ×2 (18:02→21:11)
[2019-05-07 20:18] LABS: Glucose,Whole Blood 134 mg/dL (75-99)
[2019-05-07] MEDS: MONTELUKAST 10 MG TAB PO SCH (20:39)
[2019-05-07] MEDS: DIVALPROEX 500 MG TABLET.DR PO SCH (20:40)
[2019-05-07] MEDS: ATORVASTATIN 10 MG TAB PO SCH (20:40)
[2019-05-08] MEDS: methylPREDNISolone SOD SUCCI 125 MG/2 ML VIAL IV SCH ×3 (00:23→13:02)
[2019-05-08] MEDS: HYDROmorphone 1 MG/ML 1 ML SYRINGE IVP PRN ×2 (00:23→07:02)
[2019-05-08 04:03] VITALS: BP 118/76; RESP 20; TEMP 98.2
[2019-05-08 05:12] LABS: Anisocytosis Slight; Basophils % (A) 0 %; Eosinophils % (A) 0 %; HCT 36.1 % (39.0-53.0); HGB 12.2 gm/dL (13.0-17.5); Lymphocytes # (A) 1.2 k/uL (1.0-4.8); Lymphocytes % (A) 10 %; MCH 30.2 pg (25.0-35.0); MCHC 33.8 g/dL (31.0-37.0); MCV 89.5 fL (80.0-100.0); Mean Platelet Volume 7.8; Monocytes # (A) 0.4 k/uL (0-1.0); Monocytes % (A) 4 %; Neutrophils # (A) 9.9 k/uL (1.3-7.7); Neutrophils % (A) 85 %; Platelet Count 188 k/uL (150-450); RBC 4.03 m/uL (4.30-5.90); WBC 11.6 k/uL (3.8-10.6)
[2019-05-08] MEDS: LEVOTHYROXINE 75 MCG TAB PO SCH (06:00)
[2019-05-08] MEDS: INSULIN ASPART (NovoLOG) 100 UNIT/ML VIAL SQ SCH ×2 (07:02→13:02)
[2019-05-08 07:07] LABS: Glucose,Whole Blood 140 mg/dL (75-99)
[2019-05-08] MEDS: BUDESONIDE 0.5 MG/2 ML NEBU INHALATION SCH (07:24)
[2019-05-08] MEDS ORDERED: KETOROLAC 30 MG/ML 1 ML VIAL IVP PRN (07:47)
[2019-05-08] MEDS: FAMOTIDINE 20 MG/2 ML VIAL IV SCH (08:02)
[2019-05-08] MEDS: HEPARIN SODIUM,PORCINE 5,000 UNIT/ML 1 ML VIAL SQ SCH (08:02)
[2019-05-08] MEDS: CLOPIDOGREL 75 MG TAB PO SCH (08:02)
[2019-05-08] MEDS: FUROSEMIDE 10 MG/ML 4 ML VIAL IV SCH (08:02)
[2019-05-08] MEDS: VENLAFAXINE HCL ER 150 MG CAP PO SCH (08:02)
[2019-05-08] MEDS: METOPROLOL TARTRATE 12.5 MG TAB PO SCH (08:02)
[2019-05-08] MEDS: ASPIRIN 81 MG PO SCH (08:03)
[2019-05-08] MEDS: LISINOPRIL 5 MG TAB PO SCH (08:03)
[2019-05-08 09:04] VITALS: PULSE 68
--- NOTE | 2019-05-08 09:26 | P.GSCN ---
History of Present Illness Consult date: 05/08/19 History of present illness: The patient is a 69-year-old male who we are asked to see regarding his abdominal aortic aneurysm, iliac artery aneurysm and femoral stent occlusion. He initially presented to the ER with shortness of breath many days ago and occasional chest pain. When he was in the ER he had a CT PE which had questionable evidence of 2 small pulmonary emboli. He was evaluated by pulmonary and was felt that these were more related to an exacerbation of COPD.. Overall the patient is feeling better. He denies any chest pains or shortness of breath this time. He states as far as his abdominal aortic aneurysm, He has known about this for the past 20-30 years and is being followed for this. He is not sure who he sees for it though. He has had a past history of left superficial femoral artery stenting for left lower extremity pain. He is unsure how long ago this was done. He has had a stroke in the past and his left lower extremity has weakness from it He denies any chest pain, shortness of breath, abdominal pain, nausea, vomiting or diarrhea at this point. He has never had any wounds on his lower extremities that he is aware of Review of Systems 14 point review of systems performed. Pertinent positives and negatives per the HPI Past Medical History Past Medical History: Coronary Artery Disease (CAD), Heart Failure, Dementia, Hyperlipidemia, Hypertension, Seizure Disorder, Syncope, Thyroid Disorder Additional Past Medical History / Comment(s): Ischemic cardiomyopathy, EF 20- 25%, last seizure about 2 yrs ago, hypothyroid.neuropathy "WHEN HE WORKED HE HAD A CRUSHING INJURY -COLLAPSED LUNGS C/T AND HAS CHRONIC BACK PAIN"" pt states he is schizophrenic/bipolar. History of Any Multi-Drug Resistant Organisms: None Reported Past Surgical History: AICD, Back Surgery, Coronary Bypass/CABG, Heart Catheterization, Heart Catheterization With Stent Additional Past Surgical History / Comment(s): 1995 CABG 4 vessel in [place], has had 2"HEART CATHS/had 2 STENTS after cabg sx.pt stated they were done in [facility]. "sx on tailbone, cortisone injections, devin inguinal hernia repair Past Anesthesia/Blood Transfusion Reactions: No Reported Reaction Date of Last Stent Placement:: 1995 Type of Cardiac Device: AICD Device Placement Date:: 1995 in [facility] Past Psychological History: Anxiety, Depression, Schizoaffective Disorder, Schizophrenia Additional Psychological History / Comment(s): . Smoking Status: Current every day smoker Past Alcohol Use History: None Reported Additional Past Alcohol Use History / Comment(s): . Past Drug Use History: None Reported Additional Drug Use History / Comment(s): Pt states he smokes marijuana on occasion. - Past Family History Mother Family Medical History: Respiratory Disorder Additional Family Medical History / Comment(s): Mother had TB Father Additional Family Medical History / Comment(s): Father was an alcoholic. Medications and Allergies Home Medications Medication Instructions Recorded Confirmed Type Aspirin EC [Ecotrin Low Dose] 81 mg PO DAILY 09/08/18 05/05/19 History Metoprolol Tartrate [Lopressor] 12.5 mg PO BID 09/08/18 05/05/19 History Simvastatin [Zocor] 20 mg PO HS 12/18/18 05/05/19 History Torsemide [Demadex] 5 mg PO DAILY 12/18/18 05/05/19 History Clopidogrel [Plavix] 75 mg PO DAILY 12/30/18 05/05/19 History Ranitidine HCl [Zantac] 150 mg PO BID 12/30/18 05/05/19 History Venlafaxine HCl ER [Effexor XR] 150 mg PO DAILY #30 cap.er.24h 01/15/19 05/05/19 Rx Divalproex [Depakote] 500 mg PO HS 03/03/19 05/05/19 History Levothyroxine Sodium [Synthroid] 75 mcg PO DAILY 03/03/19 05/05/19 History Paliperidone IM [Invega Sustenna] 156 mg IM Q28D 03/03/19 05/05/19 History Ramipril 1.25 mg PO DAILY 03/03/19 05/05/19 History Allergies Allergy/AdvReac Type Severity Reaction Status Date / Time morphine Allergy Anaphylaxis Verified 03/03/19 09:07 Penicillins Allergy Unknown Verified 03/03/19 09:07 Influenza Virus Vaccines AdvReac Unknown Verified 03/03/19 09:07 pneumococcal vaccine AdvReac Unknown Verified 03/03/19 09:07 Surgical - Exam Vital Signs Temp Pulse Resp BP Pulse Ox 98.4 F 62 18 123/60 97 05/05/19 00:44 05/05/19 00:44 05/05/19 00:44 05/05/19 00:44 05/05/19 00:44 Gen. is a pleasant cooperative male, scattered and conversation No acute distress Head is atraumatic, normocephalic, extraocular motion intact Neck is supple with trachea midline, no masses Heart is regular in rate and rhythm No respiratory distress Abdomen is soft, nontender, nondistended. No pulsatile masses evident Bilateral lower extremities are warm and dry. There is a palpable right DP pulse. The left extremity is warm and dry with adequate capillary refill. Nonpalpable pulses Normal mood, slightly flattened affect Results CT PE reviewed. Previous CT abdomen and pelvis from 03/03/2019 reviewed. 4.7 cm infrarenal abdominal aortic aneurysm without evidence of rupture. There is an ectatic common iliac artery. There is also evidence of occlusion of the left superficial femoral artery stent - Labs 05/08/19 04:43 05/07/19 04:29 Abnormal Lab Results - Last 24 Hours (Table) 05/07/19 05/07/19 05/07/19 Range/Units 11:36 17:07 20:07 WBC (3.8-10.6) k/uL RBC (4.30-5.90) m/uL Hgb (13.0-17.5) gm/dL Hct (39.0-53.0) % RDW (11.5-15.5) % Neutrophils # (1.3-7.7) k/uL POC Glucose (mg/dL) 127 H 161 H 134 H (75-99) mg/dL 05/08/19 05/08/19 Range/Units 04:43 06:55 WBC 11.6 H (3.8-10.6) k/uL RBC 4.03 L (4.30-5.90) m/uL Hgb 12.2 L (13.0-17.5) gm/dL Hct 36.1 L (39.0-53.0) % RDW 16.0 H (11.5-15.5) % Neutrophils # 9.9 H (1.3-7.7) k/uL POC Glucose (mg/dL) 140 H (75-99) mg/dL Assessment and Plan Assessment: #1 4.7 cm infrarenal abdominal aortic aneurysm #2 1.5 cm right common iliac artery #3 COPD exacerbation #4 peripheral arterial disease, occluded left superficial femoral artery stent Plan: At this point, from a vascular standpoint there is no evidence of need for emergent intervention. His aneurysm is of size that can be followed up as an outpatient with ultrasounds. The left lower extremity peripheral arterial disease and stent occlusion may be worked up as an outpatient. He may follow back up with the vascular surgeon here seen in the past, but if he is in need of a new one since he is not sure who it was he is welcome to follow-up with me in our office. Thank you for allowing me to participate in the care of this patient
--- NOTE | 2019-05-08 11:38 | P.DS ---
Providers Date of admission: 05/05/19 05:10 Expected date of discharge: 05/08/19 Attending physician: Raffaele Verdin Consults: 05/07/19 07:49 Consult Physician Routine Consulting Provider: Cristopher Martel Consult Reason/Comments: Cardiac history, in with chest pain Do you want consulting provider notified?: Yes, Notify in am 05/07/19 15:23 Consult Physician Routine Consulting Provider: Tania Alanis Consult Reason/Comments: Abdominal aortic aneurysm, r common iliac artery aneurysm ,fem occ stents Do you want consulting provider notified?: Yes 05/07/19 22:39 Consult Physician Routine Consulting Provider: Fidel Luong Consult Reason/Comments: copd Do you want consulting provider notified?: Yes Primary care physician: Raffaele Verdin [facility] Course: FInal Diagnoses: -Acute COPD exacerbation, in a patient with history of chronic intermittent asthma. -Chronic CHF exacerbation, systolic dysfunction, history of cardiomyopathy with AICD -Abdominal aortic aneurysm, 4.7 cm, unchanged and unchanged borderline right common iliac aortic aneurysm measuring up to 1.5 cm routine outpatient monitoring recommended -Unchanged borderline right common iliac artery aneurysm 1.5 cm -Left and right superficial femoral artery stents, appears occluded -Hyperlipidemia -Hypothyroidism -Schizophrenia -Anxiety, depression -Ongoing nicotine dependence -CAD, history of CABG -Hypertension -Seizure disorder -Marijuana use -History of crystal meth ,speed and EtOH abuse -Diverticulosis -Mild wall thickening of the distal esophagus Hospital course:This is a 69-year-old gentleman currently overflow in the ICU admitted with chest pain, acute COPD exacerbation, and multiple other medical issues. Initially placed on heparin for potential PE, significantly doubted, heparin drip discontinued as per pulmonary. Maintained on nebulized bronchodilators, steroids. Cardiology consult in place with recommendations pending. Telemetry sinus rhythm. Ambulating, Tolerating exertion well. Denies chest pain, palpitations or increased shortness of breath. Vital signs stable, maintaining O2 sats in the high 90s on room air. Denies lightheadedness dizziness or focal deficits. 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 Creatinine 1.15. Evaluated by cardiology and vascular surgery with further follow-up outpatient recommended. Significant clinical improvement. Cleared by all consults for discharge. Patient is being discharged home in stable condition with guarded prognosis. EXAM: GENERAL: Alert & Oriented X 3, no acute distress CARDIOVASCULAR: S1, S2 regular.No murmur RESPIRATION: Breath sounds diminished in the bases. No rhonchi or crackles. No wheezing. ABDOMEN: Soft, nontender . No guarding. no masses palpable.Bowel sounds heard. NERVOUS SYSTEM: No focal deficits. The impression and plan of care has been dictated as directed. : I performed a history and examination of this patient, discussed the same with the dictator. I agree with the dictator's note ,documented as a scribe. Any additional findings or plans will be noted. Time taken: 35 minutes Patient Condition at Discharge: Stable Plan - Discharge Summary New Discharge Prescriptions: New predniSONE 10 mg PO DIRECTED #30 tab Montelukast [Singulair] 10 mg PO HS #30 tab Continue Metoprolol Tartrate [Lopressor] 12.5 mg PO BID Aspirin EC [Ecotrin Low Dose] 81 mg PO DAILY Simvastatin [Zocor] 20 mg PO HS Torsemide [Demadex] 5 mg PO DAILY Clopidogrel [Plavix] 75 mg PO DAILY Ranitidine HCl [Zantac] 150 mg PO BID Venlafaxine HCl ER [Effexor XR] 150 mg PO DAILY #30 cap.er.24h Ramipril 1.25 mg PO DAILY Levothyroxine Sodium [Synthroid] 75 mcg PO DAILY Divalproex [Depakote] 500 mg PO HS Paliperidone IM [Invega Sustenna] 156 mg IM Q28D Discharge Medication List Aspirin EC [Ecotrin Low Dose] 81 mg PO DAILY 09/08/18 [History] Metoprolol Tartrate [Lopressor] 12.5 mg PO BID 09/08/18 [History] Simvastatin [Zocor] 20 mg PO HS 12/18/18 [History] Torsemide [Demadex] 5 mg PO DAILY 12/18/18 [History] Clopidogrel [Plavix] 75 mg PO DAILY 12/30/18 [History] Ranitidine HCl [Zantac] 150 mg PO BID 12/30/18 [History] Venlafaxine HCl ER [Effexor XR] 150 mg PO DAILY #30 cap.er.24h 01/15/19 [Rx] Divalproex [Depakote] 500 mg PO HS 03/03/19 [History] Levothyroxine Sodium [Synthroid] 75 mcg PO DAILY 03/03/19 [History] Paliperidone IM [Invega Sustenna] 156 mg IM Q28D 03/03/19 [History] Ramipril 1.25 mg PO DAILY 03/03/19 [History] Montelukast [Singulair] 10 mg PO HS #30 tab 05/08/19 [Rx] predniSONE 10 mg PO DIRECTED #30 tab 05/08/19 [Rx] Follow up Appointment(s)/Referral(s): Raffaele Verdin MD [Primary Care Provider] - 05/10/19 2:30 pm Tania Alanis DO [STAFF PHYSICIAN] - 1 Week Cristopher Martel MD [STAFF PHYSICIAN] - 05/01/20 2:30 pm Ambulatory/Diagnostic Orders: Complete Blood Count w/diff [LAB.AMB] Time Frame: 3 Days, Location: None Selected Activity/Diet/Wound Care/Special Instructions: Confirm cardiology follow-up appointment per to discharge.
--- NOTE | 2019-05-08 17:37 | P.PN ---
Subjective Progress Note Date: 05/08/19 This patient with history of ischemic cardiomyopathy and also AICD placement, was admitted to the hospital with increasing shortness of breath. Seen by mobile patrol officer and felt his symptoms are related to exacerbation of COPD and asthma. Patient's symptoms improved quickly. Though computed tomography scan was size to small pulmonary emboli, currently it was felt that it was not consistent with critical picture. He was taken off the heparin. He remained stable. Interrogation of the device today showed proper functioning. No shocks noted. Patient is being discharged home. Objective - Vital Signs Vital signs: Vital Signs Temp 98.2 F 05/08/19 04:00 Pulse 68 05/08/19 08:01 Resp 20 05/08/19 08:01 BP 118/76 05/08/19 08:01 Pulse Ox 98 05/08/19 08:01 Intake & Output 05/07/19 05/08/19 05/08/19 18:59 06:59 18:59 Intake Total 800 300 200 Output Total 4500 775 400 Balance -3700 -475 -200 Weight 65.1 kg Intake: IV 0 Sodium Chloride 0.9% 1, 0 000 ml @ 75 mls/hr IV . [id number] RADHA Rx#:[id number] Oral 800 300 200 Output: Urine 4500 775 400 Other: Voiding Method Toilet Toilet Toilet Urinal Urinal Urinal # Voids 2 - Exam GENERAL EXAM: Patient is alert and oriented and doesn't appear to be in any acute distress HEENT: Normocephalic. Normal reaction of pupils, equal size, normal range of extraocular motion. No erythema or exudates in the throat. NECK: No masses, no nuchal rigidity. CHEST: No chest wall deformity. LUNGS: Diminished breath sounds with rhonchi HEART: S1 and S2 normal with no audible mumurs or gallops. Regular rhythm, femorals equal on both sides.. ABDOMEN: No hepatosplenomegaly, normal bowel sounds, no guarding or rigidity. SKIN: No rashes CENTRAL NERVOUS SYSTEM: No focal deficits. EXTREMITIES: No cyanosis, clubbing or edema. - Labs CBC & Chem 7: 05/08/19 04:43 05/07/19 04:29 Labs: Abnormal Lab Results - Last 24 Hours (Table) 05/07/19 05/08/19 05/08/19 Range/Units 20:07 04:43 06:55 WBC 11.6 H (3.8-10.6) k/uL RBC 4.03 L (4.30-5.90) m/uL Hgb 12.2 L (13.0-17.5) gm/dL Hct 36.1 L (39.0-53.0) % RDW 16.0 H (11.5-15.5) % Neutrophils # 9.9 H (1.3-7.7) k/uL POC Glucose (mg/dL) 134 H 140 H (75-99) mg/dL Assessment and Plan (1) COPD with exacerbation Status: Acute Code(s): J44.1 - CHRONIC OBSTRUCTIVE PULMONARY DISEASE W (ACUTE) EXACERBATION SNOMED Code(s): 623944854 (2) Bipolar disorder Status: Acute Code(s): F31.9 - BIPOLAR DISORDER, UNSPECIFIED SNOMED Code(s): 31446032 (3) Cardiomyopathy Status: Acute Code(s): I42.9 - CARDIOMYOPATHY, UNSPECIFIED SNOMED Code(s): 76244095 (4) AICD (automatic cardioverter/defibrillator) present Status: Acute Code(s): Z95.810 - PRESENCE OF AUTOMATIC (IMPLANTABLE) CARDIAC DEFIBRILLATOR SNOMED Code(s): 909206340 Plan: Patient is clinically stable. His device seems to function normally. No arrhythmias detected. Being discharged. Follow-up as outpatient
== END 2019-05-08 12:35 | disposition home or self-care (01) | DRG 190 ==
LOC: EC 00:32 → 2SICU 05:10
PROVIDERS: ADMIT Family Medicine; ATTEND Family Medicine
DX: J44.1 Chronic obstructive pulmonary disease with (acute) exacerbation (principal); I26.99 Other pulmonary embolism without acute cor pulmonale; J45.21 Mild intermittent asthma with (acute) exacerbation; I50.22 Chronic systolic (congestive) heart failure; T82.898A Other specified complication of vascular prosthetic devices, implants and grafts, initial encounter; E11.42 Type 2 diabetes mellitus with diabetic polyneuropathy; I72.3 Aneurysm of iliac artery; I11.0 Hypertensive heart disease with heart failure; K57.90 Diverticulosis of intestine, part unspecified, without perforation or abscess without bleeding; F03.90 Unspecified dementia, unspecified severity, without behavioral disturbance, psychotic disturbance, mood disturbance, and anxiety; I71.4 Abdominal aortic aneurysm, without rupture; G40.909 Epilepsy, unspecified, not intractable, without status epilepticus; E03.9 Hypothyroidism, unspecified; E78.5 Hyperlipidemia, unspecified; I25.5 Ischemic cardiomyopathy; I25.10 Atherosclerotic heart disease of native coronary artery without angina pectoris; G89.29 Other chronic pain; M54.9 Dorsalgia, unspecified; F41.9 Anxiety disorder, unspecified; F25.9 Schizoaffective disorder, unspecified; F31.9 Bipolar disorder, unspecified; F10.11 Alcohol abuse, in remission; F15.11 Other stimulant abuse, in remission; F17.210 Nicotine dependence, cigarettes, uncomplicated; Z71.6 Tobacco abuse counseling; Z79.82 Long term (current) use of aspirin; Z79.02 Long term (current) use of antithrombotics/antiplatelets; Z79.890 Hormone replacement therapy; Z79.899 Other long term (current) drug therapy; Z95.1 Presence of aortocoronary bypass graft; Z95.810 Presence of automatic (implantable) cardiac defibrillator; Z86.73 Personal history of transient ischemic attack (TIA), and cerebral infarction without residual deficits; Z88.5 Allergy status to narcotic agent; Z88.0 Allergy status to penicillin; Z88.7 Allergy status to serum and vaccine; Z81.1 Family history of alcohol abuse and dependence
CPT/HCPCS: 36415; 71046; 71275; 80048; 80053; 83735; 83880; 84484; 85025; 85379; 85610; 85730; 93005; 93970; 96365; 96376; 99285

== ENCOUNTER 2019-08-23 21:45 | Observation (INO) | payer MEDICARE, OTHER ==
[2019-08-23] MEDS ORDERED: SODIUM CHLORIDE 0.9% 500 ML 500 ML IV STA (22:05)
[2019-08-23 22:36] LABS: Basophils # (A) 0.1 k/uL (0-0.2); Basophils % (A) 3 %; Eosinophils # (A) 0.1 k/uL (0-0.7); Eosinophils % (A) 2 %; HCT 41.1 % (39.0-53.0); HGB 13.4 gm/dL (13.0-17.5); Lymphocytes % (A) 37 %; MCH 29.6 pg (25.0-35.0); MCHC 32.5 g/dL (31.0-37.0); MCV 91.1 fL (80.0-100.0); Mean Platelet Volume 8.2; Monocytes # (A) 0.4 k/uL (0-1.0); Monocytes % (A) 7 %; Neutrophils # (A) 2.7 k/uL (1.3-7.7); Neutrophils % (A) 50 %; Platelet Count 144 k/uL (150-450); RBC 4.51 m/uL (4.30-5.90); RDW 14.5 % (11.5-15.5); WBC 5.5 k/uL (3.8-10.6)
--- NOTE | 2019-08-23 22:40 | ED ---
Chest Pain HPI - General Chief Complaint: Chest Pain Stated Complaint: Chest pain Time Seen by Provider: 08/23/19 21:58 Source: patient, EMS Mode of arrival: EMS Limitations: no limitations - History of Present Illness Initial Comments: Magaly is a 69-year-old gentleman with extensive past medical history with known coronary artery disease status post CABG, pacemaker AICD in place. Patient presents the ER today via EMS for evaluation of chest pain shortness of breath. Patient reports that last week he had an episode of chest pain which she described as a burning in his chest radiating to her shoulder similar to previous cardiac events. Patient didn't seek care at that time. He reports and since that time he's had progressively worsening shortness of breath which is worse with laying down or exertion. Denies any exertional chest pain. Patient saw his primary care provider this morning who encouraged him to come the hospital for evaluation of possible heart failure however patient chose not to. This evening patient was at home resting when he again had an episode of burning chest pain radiating to her shoulders which prompted him to call EMS. Patient was given aspirin in route to the hospital but declined nitro and is ALLERGIC to morphine. Patient denies any associated fevers or chills he does report a cough though he is a current every day cigarette smoker. - Related Data Home Medications Medication Instructions Recorded Confirmed Aspirin EC [Ecotrin Low Dose] 81 mg PO DAILY 09/08/18 05/05/19 Metoprolol Tartrate [Lopressor] 12.5 mg PO BID 09/08/18 05/05/19 Simvastatin [Zocor] 20 mg PO HS 12/18/18 05/05/19 Torsemide [Demadex] 5 mg PO DAILY 12/18/18 05/05/19 Clopidogrel [Plavix] 75 mg PO DAILY 12/30/18 05/05/19 Ranitidine HCl [Zantac] 150 mg PO BID 12/30/18 05/05/19 Divalproex [Depakote] 500 mg PO HS 03/03/19 05/05/19 Levothyroxine Sodium [Synthroid] 75 mcg PO DAILY 03/03/19 05/05/19 Paliperidone IM [Invega Sustenna] 156 mg IM Q28D 03/03/19 05/05/19 Ramipril 1.25 mg PO DAILY 03/03/19 05/05/19 Previous Rx's Medication Instructions Recorded Venlafaxine HCl ER [Effexor XR] 150 mg PO DAILY #30 cap.er.24h 01/15/19 Albuterol Inhaler [Ventolin Hfa 2 puff INHALATION RT-Q6H PRN #1 05/08/19 Inhaler] inhaler Montelukast [Singulair] 10 mg PO HS #30 tab 05/08/19 predniSONE 10 mg PO DIRECTED #30 tab 05/08/19 Allergies Allergy/AdvReac Type Severity Reaction Status Date / Time morphine Allergy Anaphylaxis Verified 03/03/19 09:07 Penicillins Allergy Unknown Verified 03/03/19 09:07 Influenza Virus Vaccines AdvReac Unknown Verified 03/03/19 09:07 pneumococcal vaccine AdvReac Unknown Verified 03/03/19 09:07 Review of Systems ROS Statement: Those systems with pertinent positive or pertinent negative responses have been documented in the HPI. ROS Other: All systems not noted in ROS Statement are negative. EKG Findings - EKG Comments: EKG Findings:: EKG was obtained due to complaint of chest pain, EKG was obtained at 2152, rate is 71 rhythm is atrial paced, TN 150, QRS 104, QTC is 434. No acute ST elevations or depressions no evidence of acute ischemia or infarction. Past Medical History Past Medical History: Coronary Artery Disease (CAD), Heart Failure, Dementia, Hyperlipidemia, Hypertension, Seizure Disorder, Syncope, Thyroid Disorder Additional Past Medical History / Comment(s): Ischemic cardiomyopathy, EF 20- 25%, last seizure about 2 yrs ago, hypothyroid.neuropathy "WHEN HE WORKED HE HAD A CRUSHING INJURY -COLLAPSED LUNGS C/T AND HAS CHRONIC BACK PAIN"" pt states he is schizophrenic/bipolar. History of Any Multi-Drug Resistant Organisms: None Reported Past Surgical History: AICD, Back Surgery, Coronary Bypass/CABG, Heart Catheterization, Heart Catheterization With Stent Additional Past Surgical History / Comment(s): 1995 CABG 4 vessel in [place], has had 2"HEART CATHS/had 2 STENTS after cabg sx.pt stated they were done in [facility]. "sx on tailbone, cortisone injections, devin inguinal hernia repair Past Anesthesia/Blood Transfusion Reactions: No Reported Reaction Date of Last Stent Placement:: 1995 Type of Cardiac Device: AICD Device Placement Date:: 1995 in [facility] Past Psychological History: Anxiety, Depression, Schizoaffective Disorder, Schizophrenia Smoking Status: Current every day smoker Past Alcohol Use History: None Reported Past Drug Use History: None Reported - Past Family History Mother Family Medical History: Respiratory Disorder Additional Family Medical History / Comment(s): Mother had TB Father Additional Family Medical History / Comment(s): Father was an alcoholic. General Exam - General Exam Comments Initial Comments: Physical Exam GENERAL: Patient is well-developed and well-nourished. Patient is nontoxic and well-hydrated and is in no distress. Strong odor of tobacco smoke HENT: Normocephalic, Atraumatic. EYES: PERRL, EOMI PULMONARY: Unlabored respirations. Mild expiratory wheezing CARDIOVASCULAR: There is a regular rate and rhythm Pacemaker present in right chest ABDOMEN: Soft and nontender with normal bowel sounds. SKIN: Skin is clear with no lesions or rashes and otherwise unremarkable. : Deferred NEUROLOGIC: Patient is alert and oriented x3. Moving all extremities spontaneously MUSCULOSKELETAL: Normal extremities with adequate strength and full range of motion. No lower extremity swelling or edema. No calf tenderness. PSYCHIATRIC: Normal psychiatric evaluation. Limitations: no limitations Course Vital Signs 08/23/19 08/23/19 08/23/19 21:49 22:30 23:00 Temperature 98.4 F Pulse Rate 68 69 58 L Respiratory 18 18 18 Rate Blood Pressure 120/67 118/66 112/72 O2 Sat by Pulse 98 97 96 Oximetry 08/23/19 08/24/19 08/24/19 23:30 00:00 01:00 Temperature Pulse Rate 60 62 68 Respiratory 17 17 18 Rate Blood Pressure 114/57 106/60 98/44 O2 Sat by Pulse 96 96 97 Oximetry 08/24/19 08/24/19 01:30 03:00 Temperature Pulse Rate 68 67 Respiratory 17 18 Rate Blood Pressure 113/58 113/62 O2 Sat by Pulse 98 97 Oximetry Chest Pain MDM - MDM The patient was seen and evaluated history is obtained from the patient, review of medical record and EMS 6 and 69-year-old gentleman who reports an episode of chest pain last week, worsening CHF-like symptoms and an episode of chest pain this evening which prompted him to call 911. Patient had 324 of aspirin prior to arrival he declined nitro as it gives him a headache. Physical exam is relatively unremarkable workup was initiated. Initial EKG was nonischemic. Troponins not elevated. Patient does have a history of PE in the past there for repeat CT was obtained with no evidence of pulmonary embolism or acute pathology today. Patient did have an elevated BNP concerning for CHF. These results were discussed with his primary care provider Dr. Verdin who agrees with plan for placing the patient observation, trending troponins,, echo and evaluation by cardiology. Admission orders were placed. Patient remained awake alert resting comfortably in no acute distress throughout his stay in the emergency department. Disposition Clinical Impression: CHF (congestive heart failure), Chest pain, Tobacco abuse, COPD (chronic obstructive pulmonary disease) Disposition: ADMITTED IP TO THIS HOSP Condition: Stable Referrals: Raffaele Verdin MD [Primary Care Provider] - 1-2 days
[2019-08-23 22:43] LABS: Albumin 3.6 g/dL (3.5-5.0); Calcium 9.1 mg/dL (8.4-10.2); Magnesium 1.8 mg/dL (1.6-2.3); Potassium 4.1 mmol/L (3.5-5.1); Total Bilirubin 0.3 mg/dL (0.2-1.3); Total Protein 6.5 g/dL (6.3-8.2)
[2019-08-23 22:51] LABS: INR 1.1 (<1.2); Partial Thromboplastin Time 26.1 sec (22.0-30.0); Prothrombin Time 11.2 sec (9.0-12.0)
--- NOTE | 2019-08-23 23:05 | XR ---
EXAMINATION TYPE: XR chest 2V DATE OF EXAM: 08/23/2019 COMPARISON: 05/05/2019 HISTORY: Short of breath Heart is normal. Lungs are clear of infiltrate. There are sternal wires. There is a right axillary pa cemaker. There is no pleural effusion. IMPRESSION: No active cardiopulmonary disease. Heart appears smaller than old exam.
--- NOTE | 2019-08-24 01:44 | CT ---
EXAMINATION TYPE: CT chest angio for PE DATE OF EXAM: 08/24/2019 COMPARISON: 05/05/2019 HISTORY: r/o PE CT DLP: 402.9 mGycm Automated exposure control for dose reduction was used. CONTRAST: Performed with IV Contrast, patient injected with 90 mL of Isovue 370. There are 3-D post processed images. There is no pleural effusion. Heart is slightly enlarged. There is no pericardial effusion. There is emphysematous bleb in the left upper lobe. There is no evidence of a pulmonary mass. There are no hil ar masses. There is normal contrast opacification of the pulmonary arteries. There are no filling defects. There is no sign of aortic aneurysm or dissection. Ascending aorta measures 3.5 cm. The bony thorax is int act. There is some spurring in the thoracic spine. There are calcified granulomata in the liver and spleen. There is 4 cm cortical cyst lower pole right kidney. IMPRESSION: Cardiomegaly. No evidence of pulmonary embolism. Atherosclerotic vascular disease. No change compared to old exam.
[2019-08-24] MEDS ORDERED: FUROSEMIDE 10 MG/ML 4 ML VIAL IV SCH ×2 (03:15→07:00)
--- NOTE | 2019-08-24 10:03 | ECHOF ---
Referral Reason:Heart Failure MEASUREMENTS -------- HEIGHT: 167.6 cm WEIGHT: 59.0 kg BP: RVIDd: 2.6 cm (< 3.3) IVSd: 1.0 cm (0.6 - 1.1) LVIDd: 5.2 cm (3.9 - 5.3) LVPWd: 1.3 cm (0.6 - 1.1) IVSs: 1.4 cm LVIDs: 4.8 cm LVPWs: 1.0 cm LAESV Index (A-L): 59.76 ml/m IVSd: 1.1 cm (0.6 - 1.1) LVIDd: 5.7 cm (3.9 - 5.3) LVPWd: 1.2 cm (0.6 - 1.1) IVSs: 1.2 cm LVIDs: 4.2 cm LVPWs: 1.6 cm EDV(Teich): 157 ml ESV(Teich): 79 ml EF(Teich): 50 % %FS: 26 % SV(Teich): 78 ml Ao Diam: 2.9 cm (2.0 - 3.7) AV Cusp: 2.1 cm (1.5 - 2.6) LA Diam: 3.9 cm (2.7 - 3.8) MV EXCURSION: 19.315 mm (> 18.000) MV EF SLOPE: 108 mm/s (70 - 150) EPSS: 1.4 cm MV E Lorne: 0.55 m/s MV DecT: 237 ms MV A Lorne: 0.44 m/s MV E/A Ratio: 1.26 RAP: 5.00 mmHg RVSP: 23.92 mmHg TAPSE: 18.07 mm FINDINGS -------- Sinus rhythm. This was a technically good study. The left ventricular size is normal. There is borderline concentric left ventricular hypertrophy. Overall left ventricular systolic function is mild-moderately impaired with, an EF between 40 - 45 % . The diastolic filling pattern is normal for the age of the patient 7.48. The right ventricle is normal in size. LA is severely dilated >40 ml/m2 The right atrial size is normal. Aortic valve is trileaflet and is mildly thickened. The mitral valve is normal. The mitral valve leaflets are mildly thickened. Moderate mitral regur gitation is present. The tricuspid valve appears structurally normal. Mild tricuspid regurgitation present. Right vent ricular systolic pressure is normal at < 35 mmHg. There is no pulmonic regurgitation present. The aortic root size is normal. Normal inferior vena cava with normal inspiratory collapse consistent with estimated right atrial pre ssure of 5 mmHg. There is no pericardial effusion. CONCLUSIONS -------- 1. Sinus rhythm. 2. This was a technically good study. 3. The left ventricular size is normal. 4. There is borderline concentric left ventricular hypertrophy. 5. Overall left ventricular systolic function is mild-moderately impaired with, an EF between 40 - 45 %. 6. The diastolic filling pattern is normal for the age of the patient 7.48 7. The right ventricle is normal in size. 8. LA is severely dilated >40 ml/m2 9. The right atrial size is normal. 10. Aortic valve is trileaflet and is mildly thickened. 11. The mitral valve is normal. 12. The mitral valve leaflets are mildly thickened. 13. Moderate mitral regurgitation is present. 14. The tricuspid valve appears structurally normal. 15. Mild tricuspid regurgitation present. 16. Right ventricular systolic pressure is normal at < 35 mmHg. 17. There is no pulmonic regurgitation present. 18. The aortic root size is normal. 19. Normal inferior vena cava with normal inspiratory collapse consistent with estimated right atrial pressure of 5 mmHg. 20. There is no pericardial effusion. ASSEMBLER CATERPILLAR SPIDER: Terri Harkins [facility]
[2019-08-24] MEDS: SPIRONOLACTONE 25 MG TAB PO SCH (10:51)
[2019-08-24] MEDS: METOPROLOL TARTRATE 12.5 MG TAB PO SCH ×2 (10:51→20:03)
--- NOTE | 2019-08-24 11:18 | CONS ---
CONSULTATION Mr. Magaly Morales is a 69-year-old gentleman who is not very compliant with either medications or office visits. He usually shows up in the hospital only. Yesterday, he decided to come into the emergency room with complaints of shortness of breath and chest tightness. He said this was going on for a week or 2 and finally he decided to come in. He was here last sometime in the fall of 2018, was advised to follow up but he did not. He has a history of CAD, prior bypass surgery in [place] and ICD placement, also. Details of this are not clear. His ejection fraction is in the 40%- 45% range. At the time of my evaluation, he is comfortable, resting pain seems atypical. Initial troponin is normal, although he is supposed to take beta blockers and AYD inhibitors, he is not taking his medicines regularly according to the patient. PAST MEDICAL HISTORY: CAD with previous bypass surgery and ICD, details unclear. He also has hypothyroidism on replacement therapy, underlying dementia, hyperlipidemia, and there is a question of some bipolar disorder. Patient is a current everyday smoker, smokes a pack a day or more. Does not consume alcohol. ALLERGIES: He is allergic to MORPHINE, PENICILLIN, and SOME VACCINES. MEDICATIONS: That he is supposed to take include simvastatin 20 mg daily, Demadex 5 mg daily, Plavix 75 mg daily. He takes Depakote, Synthroid 75 mg daily, ramipril 1.25 mg daily and also aspirin 81 mg daily, metoprolol 12.5 mg b.i.d. LABORATORY DATA: Suggests that his 2 sets of troponins are normal. BNP is unremarkable. His renal function is normal. PHYSICAL EXAMINATION: Blood pressure is 140/70, pulse rate is 62 per minute, regular. HEENT: Unremarkable. Fundus was not examined by me. NECK: Supple. There is no JVD. I do not hear a carotid bruit. HEART: Exam reveals S1, S2 with a short systolic murmur. LUNGS: Reveal a diminished air entry in bilateral lung palomo, but with scattered rhonchi. ABDOMEN: Soft, nontender. LOWER EXTREMITIES: Reveal diminished pulses. No edema. CENTRAL NERVOUS SYSTEM: Grossly within normal limits. EKG revealed an atrial paced rhythm with underlying IVCD-type picture and old inferior CA. Echocardiogram revealed ejection fraction of 40% to 45% with evidence of inferoposterior hypokinesia. There is no significant pulmonary hypertension. IMPRESSION: 1. Atypical chest pain. 2. History of coronary artery disease and bypass surgery in the past. 3. History of ICD. 4. Exacerbation of chronic obstructive pulmonary disease in a patient who is a smoker. RECOMMENDATIONS: I am recommending that we resume his medications. I advised him to be compliant with medications. I will also request a pulmonary evaluation as well and based on clinical course make further recommendations. I am placing him on metoprolol tartrate 12.5 mg b.i.d. and also lisinopril 10 mg daily, atorvastatin 40 mg daily, and aspirin will be 81 mg daily, Aldactone 12.5 mg daily. I will discontinue IV Lasix and put him on oral Lasix 20 mg every morning. Discussed my thoughts in detail with the patient. Thank you very much for the consult. LEIF / JOE: [id number] /
[2019-08-24] MEDS: PANTOPRAZOLE 40 MG/10 ML VIAL IVP SCH (12:29)
[2019-08-24 12:33] VITALS: BMI 23.1
--- NOTE | 2019-08-24 20:54 | HP ---
HISTORY AND PHYSICAL 69-year-old white male who came to the hospital for shortness of breath, chest tightness. He had atypical EKG in my office yesterday and day before admission. He did not want to be admitted. He wanted to go home. He has history of coronary artery disease, CABG surgery in [place], ICD placement, ejection fraction 45%. He is admitted to rule out myocardial infarction and possibly to have some CHF. He had a CT of the chest which showed no PE. PAST MEDICAL HISTORY: Coronary artery disease, previous surgery, ICD, hypothyroidism, dementia, dyslipidemia, bipolar. SOCIAL HISTORY: Current everyday smoker. No alcohol. ALLERGIES: MORPHINE, PENICILLIN VACCINE. MEDICATIONS: 1. Simvastatin 20 daily. 2. Demadex 5 daily. 3. Plavix 75 daily. 4. He takes Depakote. 5. He is on Synthroid 75 mg daily. 6. Ramipril 1.25 mg daily. 7. Aspirin 81 mg daily. 8. Metoprolol 12.5 b.i.d. PHYSICAL EXAM: Blood pressure 140/70, pulse is in the 60s. Heart rate is regular. HEENT: Normocephalic, atraumatic. NECK: Supple. Heart S1, S2. No murmurs, rubs or gallops. Lungs are clear. ABDOMEN: Soft. EXTREMITIES: No cyanosis, clubbing, edema. PSYCH: Fair mood and affect. NEUROLOGIC: Cranial nerves are intact. EKG: Atrial paced rhythm, underlying IVCD type picture, old inferior TX. Echocardiogram, ejection fraction 45-50 percent, inferior posterior hypokinesia, pulmonary hypertension, moderate mitral regurg. ASSESSMENT: 1. Atypical chest pain. 2. History of coronary disease. 3. ICD. 4. Moderate mitral regurgitation causing left atrial dilation. 5. Chronic obstructive pulmonary disease exacerbation. 6. Possible diastolic congestive heart failure or systolic congestive heart failure combined. Cardiology readjusted his cardiac medications. In my opinion, he might need a mitral valve replacement for which he will have to have an outpatient referral to may be someone in the city who possibly can do a good valve surgery. In the meantime, continue current treatment for COPD and adjustment for cardiac systolic and diastolic heart failure medications. MMODL / IJN: [id number] /
[2019-08-24] MEDS ORDERED: ATORVASTATIN 40 MG TAB PO SCH (21:00)
[2019-08-24] MEDS ORDERED: LISINOPRIL 10 MG TAB PO SCH (21:00)
[2019-08-25] MEDS ORDERED: ASPIRIN 325 MG TAB PO SCH (03:14)
[2019-08-25 07:59] VITALS: BP 101/59; PULSE 71; RESP 20; TEMP 98.6
[2019-08-25] MEDS: SPIRONOLACTONE 25 MG TAB PO SCH (08:02)
[2019-08-25] MEDS: PANTOPRAZOLE 40 MG/10 ML VIAL IVP SCH (08:02)
[2019-08-25] MEDS: METOPROLOL TARTRATE 12.5 MG TAB PO SCH (08:02)
[2019-08-25] MEDS ORDERED: NON FORMULARY DRUG (Omeprazole [Omeprazole] 20 MG) PO SCH (09:00)
[2019-08-25] MEDS ORDERED: TORSEMIDE 5 MG PO SCH (09:00)
[2019-08-25] MEDS ORDERED: ASPIRIN 81 MG PO SCH (09:00)
[2019-08-25] MEDS ORDERED: CLOPIDOGREL 75 MG TAB PO SCH (09:00)
[2019-08-25] MEDS ORDERED: LEVOTHYROXINE 75 MCG TAB PO SCH (09:00)
[2019-08-25] MEDS ORDERED: RAMIPRIL 1.25 MG PO SCH (09:00)
[2019-08-25] MEDS ORDERED: FAMOTIDINE 20 MG TAB PO SCH (09:00)
[2019-08-25] MEDS ORDERED: METOPROLOL TARTRATE 25 MG TAB PO SCH (09:00)
[2019-08-25] MEDS ORDERED: FUROSEMIDE 20 MG TAB PO SCH (09:00)
[2019-08-25] MEDS ORDERED: NON FORMULARY DRUG (Aspirin Ec 81 MG) PO SCH (09:00)
[2019-08-25] MEDS ORDERED: DIVALPROEX 500 MG TABLET.DR PO SCH (09:00)
--- NOTE | 2019-08-25 11:38 | P.PN ---
Subjective This is a 69-year-old male past medical history significant for coronary artery disease s/p bypass grafting and AICD placement in [place], exact details unavailable. He also has hypertension, dyslipidemia, ischemic cardiomyopathy, chronic systolic heart failure chronic nicotine dependence. 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 He also has significant psychiatric illness. He is seen and examined resting comfortably lying completely flat in bed in no acute distress. He denies any further symptoms of chest pain or shortness of breath. Blood pressure 101/59 heart rate 71 afebrile maintaining oxygen saturation on room air. Laboratory data reviewed, cardiac enzymes negative 4. Currently maintained on aspirin 81 mg daily, atorvastatin 40 mg at bedtime, Plavix 75 mg daily, Lasix 20 mg daily, lisinopril 10 mg at bedtime, Lopressor 12.5 mg twice a day and Aldactone 12.5 mg daily. Echocardiogram obtain reveals mildly impaired LV systolic function with ejection fraction 40-45%, normal diastolic filling pattern, aortic valve is mildly thickened, moderate mitral regurgitation and mild tricuspid regurgitation. GENERAL: Well-appearing, well-nourished and in no acute distress. NECK: Supple without JVD or thyromegaly. LUNGS: Breath sounds clear to auscultation bilaterally. Respiration equal and unlabored. No wheezes, rales or rhonchi. Diminished bilaterally. HEART: Regular rate and rhythm with systolic ejection murmur at the left sternal border, no rubs or gallops. S1 and S2 heard. EXTREMITIES: Normal range of motion, no edema. No clubbing or cyanosis. Peripheral pulses intact. ASSESSMENT Chest pain, atypical. An acute coronary event has been ruled out. History of coronary artery disease status post bypass grafting Ischemic cardiomyopathy status post AICD placement Chronic systolic heart failure currently euvolemic Hypertension Dyslipidemia COPD PLAN An acute event has been ruled out. Hemodynamically stable on current regimen. Pt would like to go home and Dr. Verdin states he is discharging his this morning. Recommend close follow up in the office. Smoking cessation recommended. Nurse Practitioner note has been reviewed, I agree with a documented findings an d plan of care. Patient was seen and examined. Objective - Vital Signs Vital signs: Vital Signs Temp 98.6 F 08/25/19 07:58 Pulse 71 08/25/19 07:58 Resp 20 08/25/19 08:00 BP 101/59 08/25/19 07:58 Pulse Ox 96 08/25/19 07:58 Intake & Output 08/24/19 08/25/19 08/25/19 18:59 06:59 18:59 Intake Total 1002 10 240 Balance 1002 10 240 Weight 65 kg 63.8 kg Intake: IV 10 0.9 10 Oral 1002 240 Other: Voiding Method Toilet Toilet # Voids 1 3 - Labs CBC & Chem 7: 08/23/19 21:54 08/23/19 21:54
[2019-08-25] MEDS ORDERED: NON FORMULARY DRUG (Simvastatin 20 MG) PO SCH (21:00)
--- NOTE | 2019-09-16 09:30 | DS ---
DISCHARGE SUMMARY DATE OF ADMISSION: 08/24/2019. DATE OF DISCHARGE: 08/25/2019. MEDICATIONS: 1. Lopressor 12.5 b.i.d. 2. Ecotrin 81 mg daily. 3. Zocor 20 mg daily. 4. Demadex 5 mg daily. 5. Plavix 75 mg daily. 6. Zantac 150 b.i.d. 7. Ramipril 1.25 mg daily. 8. Synthroid 75 mcg daily. 9. Depakote 500 b.i.d. 10.Omeprazole 20 daily. CONDITION: Stable. PROGNOSIS: Guarded. Ambulate as tolerated. HOSPITAL COURSE OF EVENTS: This white male who came in with atypical chest pain to rule out myocardial infarction. He was negative for myocardial infarction. He was found to have an echo with ejection fraction 40-45 percent with moderate mitral regurgitation. Cardiology saw him. Readjusted his medication. Stabilized. Ruled him out for myocardial infarction. Cleared from cardiac standpoint. He is negative for any pulmonary embolism. Also, he is status post AICD placement, ischemic cardiomyopathy, systolic heart failure, hypertension, COPD, dyslipidemia, nicotine cessation was discussed with the patient. Patient was cleared for discharge. Follow up as an outpatient. MMODL / IJN: [id number] /
== END 2019-08-25 11:35 | disposition home health service (06) ==
LOC: EC 21:45 → 3SCARD 08-24 03:13
PROVIDERS: ADMIT Family Medicine; ATTEND Family Medicine
DX: R07.89 Other chest pain (principal); I25.10 Atherosclerotic heart disease of native coronary artery without angina pectoris; Z95.1 Presence of aortocoronary bypass graft; Z95.810 Presence of automatic (implantable) cardiac defibrillator; J44.9 Chronic obstructive pulmonary disease, unspecified; F17.210 Nicotine dependence, cigarettes, uncomplicated; I11.0 Hypertensive heart disease with heart failure; I50.22 Chronic systolic (congestive) heart failure; I25.5 Ischemic cardiomyopathy; F03.90 Unspecified dementia, unspecified severity, without behavioral disturbance, psychotic disturbance, mood disturbance, and anxiety; E03.9 Hypothyroidism, unspecified; E78.5 Hyperlipidemia, unspecified; G40.909 Epilepsy, unspecified, not intractable, without status epilepticus; G89.29 Other chronic pain; M54.9 Dorsalgia, unspecified; F20.9 Schizophrenia, unspecified; F31.9 Bipolar disorder, unspecified; F41.9 Anxiety disorder, unspecified; I08.1 Rheumatic disorders of both mitral and tricuspid valves; Z88.0 Allergy status to penicillin; Z88.5 Allergy status to narcotic agent; Z88.7 Allergy status to serum and vaccine; Z79.02 Long term (current) use of antithrombotics/antiplatelets; Z79.82 Long term (current) use of aspirin; Z79.890 Hormone replacement therapy; Z79.899 Other long term (current) drug therapy; Z81.1 Family history of alcohol abuse and dependence; Z83.6 Family history of other diseases of the respiratory system
CPT/HCPCS: 96376; 96374; 96375; 96361; 99285; 36415; 93005; 93306; 83880; 80053; 83735; 84484 ×2; 85025; 85610; 85730; 71046; 71275; G0378 ×2; J1940; C9113 ×2; Q9967

== ENCOUNTER → 2019-09-03 | Outpatient (CLI) | payer MEDICARE, OTHER ==
[~2019-09-03] MED LIST: AMINOPHYLLINE 500 MG/20 ML VIAL IV ONE; REGADENOSON 0.4 MG/5 ML SYRINGE IV ONE
--- NOTE | 2019-09-03 11:56 | NM ---
EXAMINATION TYPE: NM stress lexiscan cardiolite DATE OF EXAM: 09/03/2019 COMPARISON: NONE HISTORY: Precordial chest pain and abnormal EKG. TECHNIQUE: After the intravenous administration of 9.8 mCi Tc 99m Sestamibi - Cardiolite resting SPE CT images acquired 45 minutes post injection. The patient received 0.4mg Lexiscan, 25.9 mCi Tc 99m Sestamibi - Stress images obtained [address] injection FINDINGS: Review of stress and rest SPECT images demonstrates decreased perfusion involving the apical lateral wall on stress images compatible with stress-induced ischemia. Fixed defects noted to involve the car diac apex and inferior wall. Gated analysis shows hypokinesia with estimated ejection fraction of 43% . IMPRESSION: Suspect stress-induced ischemia involving the apical lateral wall. Areas of fixed defects as noted. Diminished ejection fraction.
--- NOTE | 2019-09-03 12:21 | EST ---
EXERCISE STRESS DATE OF SERVICE: 09/03/2019 AGE: 69 SEX: Male HT: 66" WT: 145 pounds PROTOCOL: Lexiscan Cardiolite STAGE: DURATION OF EXERCISE: HEART RATE REST: 75 BLOOD PRESSURE REST: 118/71 MAXIMUM HEART RATE ACHIEVED: 60 MAXIMUM BLOOD PRESSURE: 123/74 85% MPHR: 129 100% MPHR: 152 METS: INDICATIONS: Congestive heart failure. CLINICAL INFORMATION: Lexiscan Cardiolite study was performed. Peak heart rate of 60 was achieved. Maximum blood pressure of 123/74 mmHg was noted. The resting EKG shows normal sinus rhythm with QRS morphology suggestive of old inferior wall myocardial infarction was noted. No ST- segment depression suggestive of ischemia was noted. The results of the nuclear study will follow. GIOL / IJN: [id number] /
== END | disposition home or self-care (01) ==
LOC: RADNMMAIN 08:48
PROVIDERS: ATTEND Family Medicine
DX: I50.20 Unspecified systolic (congestive) heart failure (principal)
CPT/HCPCS: 93017; 78452; A9500; J0280; J2785

== ENCOUNTER 2020-04-16 01:50 | Observation (INO) | payer MEDICARE, OTHER ==
--- NOTE | 2020-04-16 02:14 | XR ---
EXAMINATION TYPE: XR chest 2V DATE OF EXAM: 04/16/2020 COMPARISON: 08/23/2019 HISTORY: Chest pain TECHNIQUE: FINDINGS: There is no heart failure nor confluent pneumonic infiltrate. There is right axillary pacem tobi. Costophrenic angles are clear. There are chest leads. There are sternal wires. The bony thorax is intact. IMPRESSION: No active cardiopulmonary disease. Normal heart. No change.
[2020-04-16 02:20] LABS: Basophils % (A) 1 %; Eosinophils # (A) 0.1 k/uL (0-0.7); Eosinophils % (A) 3 %; HCT 40.9 % (39.0-53.0); HGB 13.3 gm/dL (13.0-17.5); Lymphocytes # (A) 1.4 k/uL (1.0-4.8); Lymphocytes % (A) 34 %; MCH 29.8 pg (25.0-35.0); MCHC 32.6 g/dL (31.0-37.0); MCV 91.3 fL (80.0-100.0); Mean Platelet Volume 8.6; Monocytes # (A) 0.4 k/uL (0-1.0); Monocytes % (A) 9 %; Neutrophils # (A) 2.1 k/uL (1.3-7.7); Neutrophils % (A) 51 %; Platelet Count 135 k/uL (150-450); RBC 4.48 m/uL (4.30-5.90); RDW 15.4 % (11.5-15.5); WBC 4.1 k/uL (3.8-10.6)
[2020-04-16 02:35] LABS: Albumin 3.7 g/dL (3.5-5.0); Calcium 8.8 mg/dL (8.4-10.2); Magnesium 1.9 mg/dL (1.6-2.3); Total Bilirubin 0.3 mg/dL (0.2-1.3); Total Protein 6.7 g/dL (6.3-8.2)
[2020-04-16 03:07] LABS: Partial Thromboplastin Time 25.1 sec (22.0-30.0); Prothrombin Time 10.4 sec (9.0-12.0)
--- NOTE | 2020-04-16 03:35 | CT ---
EXAMINATION TYPE: CT abdomen pelvis w con DATE OF EXAM: 04/16/2020 COMPARISON: 03/03/2019 HISTORY: right upper abd pain CT DLP: 697.5 mGycm Automated exposure control for dose reduction was used. CONTRAST: Performed with IV Contrast, patient injected with 100 mL of Isovue 300. Lung bases are clear. There is no pleural effusion. There is small hiatal hernia. Heart is enlarged. There is no pericardial effusion. The stomach is intact. There are numerous calcified splenic granulo robles. There is no evidence of pancreatic mass. The bile ducts are not dilated. Liver shows no evidenc e of a mass. There is calcified granuloma in the anterior right lobe of the liver. Gallbladder appear s normal. There is no adrenal mass. Kidneys have normal size and contour. There is satisfactory contrast opacif ication. There is no hydronephrosis. Delayed images show normal renal excretion. 4.2 cm cortical cyst lower pole right kidney. There is 5 cm aneurysm of the lower abdominal aorta with extensive anterior wall thrombus. There is no evidence of leakage. There is no retroperitoneal adenopathy. Ureters are not dilated. There are multiple sigmoid diverticula. Bladder distends smoothly. There is no inguinal hernia. There is no evidence of pelvic mass. There is no free fluid in the pelvis. 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 There is no mesenteric edema. There is no ascites or free air. There is no bowel obstruction. Lumbar vertebra have normal alignment. Disc spaces are fairly normal. There is no compression fractur e. Bony pelvis is intact. IMPRESSION: Old granulomatous disease. Normal appendix. 5 cm aneurysm lower abdominal aorta is increased from 4.7 cm compared to old exam. Atherosclerotic va scular disease. There is some sigmoid diverticulosis without diverticulitis. Specifically there is no evidence of pancreatitis.
--- NOTE | 2020-04-16 03:44 | ED ---
General Adult HPI - General Chief complaint: Shortness of Breath Stated complaint: Chest Pain, JONY Time Seen by Provider: 04/16/20 01:52 Source: patient, EMS Mode of arrival: EMS - History of Present Illness Initial comments: Magaly is a 69-year-old male with history of COPD and alcohol abuse, current greater than one pack a day smoker who presents the ER today via EMS reporting shortness of breath, sharp pain in his right upper quadrant with inspiration. Patient reports he's been out of his breathing treatments at home, he has not used a breathing treatment a couple of days and tonight he felt like he couldn't catch his breath. Patient also states that when he has a deep breath there is epigastric and right upper quadrant abdominal pain. No associated nausea or vomiting. No pain after eating. Patient has been drinking alcohol tonight. Patient denies any lower abdominal pain. - Related Data Home Medications Medication Instructions Recorded Confirmed Aspirin EC [Ecotrin Low Dose] 81 mg PO DAILY 09/08/18 08/24/19 Metoprolol Tartrate [Lopressor] 12.5 mg PO BID 09/08/18 08/24/19 Simvastatin [Zocor] 20 mg PO HS 12/18/18 08/24/19 Torsemide [Demadex] 5 mg PO DAILY 12/18/18 08/24/19 Clopidogrel [Plavix] 75 mg PO DAILY 12/30/18 08/24/19 Ranitidine HCl [Zantac] 150 mg PO BID 12/30/18 08/24/19 Divalproex [Depakote] 500 mg PO BID 03/03/19 08/24/19 Levothyroxine Sodium [Synthroid] 75 mcg PO DAILY 03/03/19 08/24/19 ramipriL [Ramipril] 1.25 mg PO DAILY 03/03/19 08/24/19 Omeprazole 20 mg PO DAILY 08/24/19 08/24/19 Allergies Allergy/AdvReac Type Severity Reaction Status Date / Time morphine Allergy Anaphylaxis Verified 04/16/20 01:58 Penicillins Allergy Unknown Verified 04/16/20 01:58 Influenza Virus Vaccines AdvReac Unknown Verified 04/16/20 01:58 pneumococcal vaccine AdvReac Unknown Verified 04/16/20 01:58 Review of Systems ROS Statement: Those systems with pertinent positive or pertinent negative responses have been documented in the HPI. ROS Other: All systems not noted in ROS Statement are negative. Past Medical History Past Medical History: Coronary Artery Disease (CAD), Heart Failure, Dementia, Hyperlipidemia, Hypertension, Seizure Disorder, Syncope, Thyroid Disorder Additional Past Medical History / Comment(s): Ischemic cardiomyopathy, EF 20- 25%, last seizure about 2 yrs ago, hypothyroid.neuropathy "WHEN HE WORKED HE HAD A CRUSHING INJURY -COLLAPSED LUNGS C/T AND HAS CHRONIC BACK PAIN"" pt states he is schizophrenic/bipolar. History of Any Multi-Drug Resistant Organisms: None Reported Past Surgical History: AICD, Back Surgery, Coronary Bypass/CABG, Heart Catheterization, Heart Catheterization With Stent Additional Past Surgical History / Comment(s): 1995 CABG 4 vessel in [place], has had 2"HEART CATHS/had 2 STENTS after cabg sx.pt stated they were done in [facility]. "sx on tailbone, cortisone injections, devin inguinal hernia repair Past Anesthesia/Blood Transfusion Reactions: No Reported Reaction Date of Last Stent Placement:: 1995 Type of Cardiac Device: AICD Device Placement Date:: [address] [facility] Past Psychological History: Anxiety, Depression, Schizoaffective Disorder, S chizophrenia Smoking Status: Current every day smoker Past Alcohol Use History: None Reported Past Drug Use History: None Reported - Past Family History Mother Family Medical History: Respiratory Disorder Additional Family Medical History / Comment(s): Mother had TB Father Additional Family Medical History / Comment(s): Father was an alcoholic. General Exam - General Exam Comments Initial Comments: Physical Exam GENERAL: Chronically ill-appearing HENT: Normocephalic, Atraumatic. EYES: PERRL, EOMI PULMONARY: Mild expiratory wheezing in all lung palomo CARDIOVASCULAR: There is a regular rate and rhythm without any murmurs gallops or rubs. ABDOMEN: Mild epigastric tenderness Negative Weir sign SKIN: Skin color changes in lower [place] is consistent with chronic venous stasis Skin color changes on the hands consistent with nicotine staining : Deferred NEUROLOGIC: Patient is alert and oriented x3. Moving all extremities spontaneously MUSCULOSKELETAL: Normal extremities with adequate strength and full range of motion. No lower extremity swelling or edema. No calf tenderness. PSYCHIATRIC: Normal psychiatric evaluation. Course Vital Signs 04/16/20 04/16/20 04/16/20 01:54 03:44 05:35 Temperature 98.1 F Pulse Rate 81 78 72 Respiratory 18 18 18 Rate Blood Pressure 133/89 139/80 147/82 O2 Sat by Pulse 98 98 Oximetry EKG Findings - EKG Comments: EKG Findings:: EKG was obtained due to complaint of chest pain, EKG was obtained at 1:56 AM, rate is 80 rhythm is sinus there is a normal axis, normal intervals, SC 120, QRS 92, QTc 435 there are no acute ST elevations or depressions there is no evidence of acute ischemia or infarction. Medical Decision Making - Medical Decision Making The patient was seen and evaluated, history was obtained from the patient Physical exam reveals a gentleman with mild COPD exacerbation and epigastric abdominal pain, patient has a strong odor of alcohol does admit to drinking alcohol tonight G was nonischemic Chest x-ray with no acute findings Labs reveal mildly elevated lipase I suspect this is secondary to alcoholic pancreatitis patient denies a history of pancreatitis Computed tomography scan of the abdomen was obtained to assess new diagnosis of pancreatitis Computed tomography scan of the abdomen revealed no acute gallbladder pathology, no obvious gallstones, no inflamed pancreas, incidentally found patient has worsening infrarenal AAA with thrombus formation Considering the patient's multiple comorbidities and poor follow-up I do feel the patient warrants admission to the hospital for treatment of COPD and evaluation by vascular surgery Patient care was discussed with patient's PCP Dr Verdin wh agrees with this plan - Lab Data Result diagrams: 04/16/20 02:02 04/16/20 02:02 Lab Results 04/16/20 04/16/20 04/16/20 Range/Units 02:02 02:02 02:02 WBC 4.1 (3.8-10.6) k/uL RBC 4.48 (4.30-5.90) m/uL Hgb 13.3 (13.0-17.5) gm/dL Hct 40.9 (39.0-53.0) % MCV 91.3 (80.0-100.0) fL MCH 29.8 (25.0-35.0) pg MCHC 32.6 (31.0-37.0) g/dL RDW 15.4 (11.5-15.5) % Plt Count 135 L (150-450) k/uL Neutrophils % 51 % Lymphocytes % 34 % Monocytes % 9 % Eosinophils % 3 % Basophils % 1 % Neutrophils # 2.1 (1.3-7.7) k/uL Lymphocytes # 1.4 (1.0-4.8) k/uL Monocytes # 0.4 (0-1.0) k/uL Eosinophils # 0.1 (0-0.7) k/uL Basophils # 0.0 (0-0.2) k/uL PT 10.4 (9.0-12.0) sec INR 1.0 (<1.2) APTT 25.1 (22.0-30.0) sec Sodium 135 L (137-145) mmol/L Potassium 4.0 (3.5-5.1) mmol/L Chloride 105 (98-107) mmol/L Carbon Dioxide 21 L (22-30) mmol/L Anion Gap 9 mmol/L BUN 11 (9-20) mg/dL Creatinine 1.01 (0.66-1.25) mg/dL Est GFR (CKD-EPI)AfAm 88 (>60 ml/min/1.73 sqM) Est GFR (CKD-EPI)NonAf 76 (>60 ml/min/1.73 sqM) Glucose 89 (74-99) mg/dL Calcium 8.8 (8.4-10.2) mg/dL Magnesium 1.9 (1.6-2.3) mg/dL Total Bilirubin 0.3 (0.2-1.3) mg/dL AST 56 (17-59) U/L ALT 33 (4-49) U/L Alkaline Phosphatase 78 (38-126) U/L Troponin I (0.000-0.034) ng/mL NT-Pro-B Natriuret Pep pg/mL Total Protein 6.7 (6.3-8.2) g/dL Albumin 3.7 (3.5-5.0) g/dL Lipase 342 H (23-300) U/L 04/16/20 04/16/20 Range/Units 02:02 02:02 WBC (3.8-10.6) k/uL RBC (4.30-5.90) m/uL Hgb (13.0-17.5) gm/dL Hct (39.0-53.0) % MCV (80.0-100.0) fL MCH (25.0-35.0) pg MCHC (31.0-37.0) g/dL RDW (11.5-15.5) % Plt Count (150-450) k/uL Neutrophils % % Lymphocytes % % Monocytes % % Eosinophils % % Basophils % % Neutrophils # (1.3-7.7) k/uL Lymphocytes # (1.0-4.8) k/uL Monocytes # (0-1.0) k/uL Eosinophils # (0-0.7) k/uL Basophils # (0-0.2) k/uL PT (9.0-12.0) sec INR (<1.2) APTT (22.0-30.0) sec Sodium (137-145) mmol/L Potassium (3.5-5.1) mmol/L Chloride (98-107) mmol/L Carbon Dioxide (22-30) mmol/L Anion Gap mmol/L BUN (9-20) mg/dL Creatinine (0.66-1.25) mg/dL Est GFR (CKD-EPI)AfAm (>60 ml/min/1.73 sqM) Est GFR (CKD-EPI)NonAf (>60 ml/min/1.73 sqM) Glucose (74-99) mg/dL Calcium (8.4-10.2) mg/dL Magnesium (1.6-2.3) mg/dL Total Bilirubin (0.2-1.3) mg/dL AST (17-59) U/L ALT (4-49) U/L Alkaline Phosphatase (38-126) U/L Troponin I <0.012 (0.000-0.034) ng/mL NT-Pro-B Natriuret Pep 589 pg/mL Total Protein (6.3-8.2) g/dL Albumin (3.5-5.0) g/dL Lipase (23-300) U/L Disposition Clinical Impression: COPD (chronic obstructive pulmonary disease), Alcoholic pancreatitis, AAA (abdominal aortic aneurysm) Disposition: ADMITTED IP TO THIS HOSP Condition: Serious Is patient prescribed a controlled substance at d/c from ED?: No
[2020-04-16] MEDS ORDERED: methylPREDNISolone SOD SUCCI 125 MG/2 ML VIAL IV STA (04:33)
[2020-04-16] MEDS: SODIUM CHLORIDE 0.9% 1,000 ML IV SCH ×5 (05:33→23:59)
[2020-04-16] MEDS: IPRATROPIUM-ALBUTEROL 3 ML NEB INHALATION PRN ×2 (08:42→20:39)
--- NOTE | 2020-04-16 09:23 | HP ---
HISTORY AND PHYSICAL A 69-year-old white male came to the emergency room due to COPD. PAST MEDICAL HISTORY: COPD, alcohol abuse, 1 pack-a-day smoker for many years, reporting shortness of breath. Chest pain in his right upper quadrant with inspiration. He is taking breathing treatments at home. Did not improve, took a deep breath. There is epigastric right upper quadrant abdominal pain. No nausea or vomiting. No pain after eating. He has been drinking alcohol. Denies any lower abdominal pain. HOME MEDICINES: Aspirin 81 daily, Lopressor 12.5 b.i.d., Zocor 20 daily, Demadex 5 mg daily, Plavix 75 daily, Zantac 150 b.i.d., Depakote 500 b.i.d., levothyroxine 75 mcg daily, Ramipril 1.25 daily, omeprazole 20 daily. ALLERGIES: MORPHINE, PENICILLIN, INFLUENZA, PNEUMONIA. 14-POINT REVIEW OF SYSTEMS: Otherwise negative except for depression, anxiety. PAST MEDICAL HISTORY: Coronary artery disease, heart failure, dementia, dyslipidemia, hypertension, seizure disorder, syncope, hypothyroidism, ischemic cardiomyopathy, neuropathy, AICD, back surgery, CABG surgery, heart catheterization with stents, AAA, AICD, anxiety, depression, schizoaffective, schizophrenia, current everyday smoker. FAMILY HISTORY: Mother respiratory TB. Father alcoholic. PHYSICAL EXAM: Chronic, ill-appearing white male. HEAD: Normocephalic, atraumatic. Pupils equal, round, reactive. LUNGS: Show wheezes x4. CARDIAC: S1, S2. No murmurs, rubs, gallops. ABDOMEN: Mild epigastric tenderness. SKIN: Venostasis in the anterior tibialis, bilaterally. NEUROLOGIC: Cranial nerves are intact. PSYCH: Appears a little bit anxious. MUSCULOSKELETAL: Range of motion full. Temperature 98.1, pulse 70s to 80s, respiratory rate 16 to 18, blood pressure is 130 to 140s/80s, O2 is 98. EKG show sinus rhythm. ASSESSMENT: COPD exacerbation, epigastric pain, alcohol abuse, elevated lipase secondary to alcoholic pancreatitis. CT of the abdomen is obtained revealing no acute gallbladder issues. Acute on chronic pancreatitis, acute COPD exacerbation, worsening AAA. Negative troponins, negative BNP. Will get surgical GI evaluation for pancreatitis. MMODL / IJN: [id number] /
[2020-04-16] MEDS: lisinopriL 5 MG TAB PO SCH (09:57)
[2020-04-16] MEDS: LEVOTHYROXINE 75 MCG TAB PO SCH (09:57)
[2020-04-16] MEDS: FAMOTIDINE 20 MG TAB PO SCH ×2 (09:57→20:52)
[2020-04-16] MEDS: CLOPIDOGREL 75 MG TAB PO SCH (09:57)
[2020-04-16] MEDS: ASPIRIN 81 MG PO SCH (09:57)
[2020-04-16] MEDS: DIVALPROEX 500 MG TABLET.DR PO SCH ×2 (09:57→20:52)
[2020-04-16] MEDS: METOPROLOL TARTRATE 12.5 MG TAB PO SCH ×2 (09:57→20:52)
[2020-04-16] MEDS: NICOTINE 21MG/24HR PATCH TRANSDERM SCH (09:58)
[2020-04-16] MEDS: FUROSEMIDE 10 MG TAB PO SCH (09:59)
[2020-04-16] MEDS: PANTOPRAZOLE 40 MG TABLET PO SCH (10:05)
--- NOTE | 2020-04-16 14:39 | P.GSCN ---
History of Present Illness Consult date: 04/16/20 Reason for Consult: Godfrey aortic aneurysm History of present illness: This 61-year-old male patient who came into the emergency department with complaints of shortness of breath and sharp epigastric and right upper quadrant pain. The patient has a past medical history that includes COPD, alcohol abuse, greater than a pack a day smoker, coronary artery disease, hyperlipidemia, and hypertension. Patient has been seen in the past regarding a known abdominal aortic aneurysm, which he states he has known about for the last 20-30 years. On last evaluation in 2019 his abdominal aortic aneurysm was reported at 4.7 cm, this time he was seen and evaluated by Dr. Alanis in the hospital. He was directed to follow-up as an outpatient. The patient has failed to follow-up with Dr. Alanis or any previous vascular surgeons. He also has a history of a left SFA stent, however he is unsure when he had that done. He states he still has some shortness of breath, epigastric pain, however denies any chest pain, nausea, vomiting, or diarrhea. He states that he drinks approximately a sixpack of beer a week. He has a significant history of heavy alcohol use in the past. He denies ever being diagnosed with pancreatitis in the past. Review of Systems A 14 point review of systems was completed all pertinent positives and negatives as stated in the HPI. Past Medical History Past Medical History: Coronary Artery Disease (CAD), Heart Failure, Dementia, Hyperlipidemia, Hypertension, Seizure Disorder, Syncope, Thyroid Disorder Additional Past Medical History / Comment(s): Ischemic cardiomyopathy, EF 20- 25%, last seizure about 2 yrs ago, hypothyroid.neuropathy "WHEN HE WORKED HE HAD A CRUSHING INJURY -COLLAPSED LUNGS C/T AND HAS CHRONIC BACK PAIN"" pt states he is schizophrenic/bipolar. History of Any Multi-Drug Resistant Organisms: None Reported Past Surgical History: AICD, Back Surgery, Coronary Bypass/CABG, Heart Catheterization, Heart Catheterization With Stent Additional Past Surgical History / Comment(s): 1995 CABG 4 vessel in [place], has had 2"HEART CATHS/had 2 STENTS after cabg sx.pt stated they were done in [facility]. "sx on tailbone, cortisone injections, devin inguinal hernia repair Past Anesthesia/Blood Transfusion Reactions: No Reported Reaction Date of Last Stent Placement:: 1995 Type of Cardiac Device: AICD Device Placement Date:: 1995 in [facility] Past Psychological History: Anxiety, Depression, Schizoaffective Disorder, Schizophrenia Smoking Status: Current every day smoker Past Alcohol Use History: None Reported Past Drug Use History: None Reported - Past Family History Mother Family Medical History: Respiratory Disorder Additional Family Medical History / Comment(s): Mother had TB Father Additional Family Medical History / Comment(s): Father was an alcoholic. Medications and Allergies Home Medications Medication Instructions Recorded Confirmed Type Aspirin EC [Ecotrin Low Dose] 81 mg PO DAILY 09/08/18 04/16/20 History Metoprolol Tartrate [Lopressor] 12.5 mg PO BID 09/08/18 04/16/20 History Simvastatin [Zocor] 20 mg PO HS 12/18/18 04/16/20 History Torsemide [Demadex] 5 mg PO DAILY 12/18/18 04/16/20 History Clopidogrel [Plavix] 75 mg PO DAILY 12/30/18 04/16/20 History Divalproex [Depakote] 500 mg PO HS 03/03/19 04/16/20 History Levothyroxine Sodium [Synthroid] 75 mcg PO DAILY 03/03/19 04/16/20 History ramipriL [Ramipril] 1.25 mg PO DAILY 03/03/19 04/16/20 History Carbidopa-Levodopa 10-100 mg 1 tab PO TID 04/16/20 04/16/20 History [Sinemet 10-100] Omeprazole [PriLOSEC] 40 mg PO DAILY 04/16/20 04/16/20 History Paliperidone IM [Invega Sustenna] 156 mg IM Q28D 04/16/20 04/16/20 History Allergies Allergy/AdvReac Type Severity Reaction Status Date / Time morphine Allergy Anaphylaxis Verified 04/16/20 07:25 Penicillins Allergy Swelling Verified 04/16/20 07:40 Influenza Virus Vaccines AdvReac Unknown Verified 04/16/20 07:25 pneumococcal vaccine AdvReac Unknown Verified 04/16/20 07:25 Surgical - Exam Vital Signs Temp Pulse Resp BP Pulse Ox 98.1 F 81 18 133/89 98 04/16/20 01:54 04/16/20 01:54 04/16/20 01:54 04/16/20 01:54 04/16/20 01:54 GEneral: cooperative male, thin and frail No acute distress Head is atraumatic, normocephalic, extraocular motion intact Neck is supple with trachea midline, no masses Heart is regular in rate and rhythm No respiratory distress, lung sounds diminished bilaterally Abdomen is soft, tender to palpation in the epigastric and right upper quadrant region, nondistended. No hurting or rigidity Bilateral lower extremities are warm and dry. There is a palpable bilateral pulses, right greater than left. right DP pulse. Adequate urinary refill bilaterally. Normal mood, slightly flattened affect, tremors noted. Results DT abdomen and pelvis with contrast impression reads: I centimeter aneurysm lower abdominal aorta is increased from 4.7 cm compared to old exam. Arthrosclerotic vascular disease. There is some sigmoid diverticulosis without diverticulitis. Specifically there is no evidence of pancreatitis. - Labs 04/16/20 02:02 04/16/20 02:02 Abnormal Lab Results - Last 24 Hours (Table) 04/16/20 04/16/20 Range/Units 02:02 02:02 Plt Count 135 L (150-450) k/uL Sodium 135 L (137-145) mmol/L Carbon Dioxide 21 L (22-30) mmol/L Lipase 342 H (23-300) U/L Diabetes panel 04/16/20 Range/Units 02:02 Sodium 135 L (137-145) mmol/L Potassium 4.0 (3.5-5.1) mmol/L Chloride 105 (98-107) mmol/L Carbon Dioxide 21 L (22-30) mmol/L BUN 11 (9-20) mg/dL Creatinine 1.01 (0.66-1.25) mg/dL Glucose 89 (74-99) mg/dL Calcium 8.8 (8.4-10.2) mg/dL AST 56 (17-59) U/L ALT 33 (4-49) U/L Alkaline Phosphatase 78 (38-126) U/L Total Protein 6.7 (6.3-8.2) g/dL Albumin 3.7 (3.5-5.0) g/dL Calcium panel 04/16/20 Range/Units 02:02 Calcium 8.8 (8.4-10.2) mg/dL Albumin 3.7 (3.5-5.0) g/dL Pituitary panel 04/16/20 Range/Units 02:02 Sodium 135 L (137-145) mmol/L Potassium 4.0 (3.5-5.1) mmol/L Chloride 105 (98-107) mmol/L Carbon Dioxide 21 L (22-30) mmol/L BUN 11 (9-20) mg/dL Creatinine 1.01 (0.66-1.25) mg/dL Glucose 89 (74-99) mg/dL Calcium 8.8 (8.4-10.2) mg/dL Adrenal panel 04/16/20 Range/Units 02:02 Sodium 135 L (137-145) mmol/L Potassium 4.0 (3.5-5.1) mmol/L Chloride 105 (98-107) mmol/L Carbon Dioxide 21 L (22-30) mmol/L BUN 11 (9-20) mg/dL Creatinine 1.01 (0.66-1.25) mg/dL Glucose 89 (74-99) mg/dL Calcium 8.8 (8.4-10.2) mg/dL Total Bilirubin 0.3 (0.2-1.3) mg/dL AST 56 (17-59) U/L ALT 33 (4-49) U/L Alkaline Phosphatase 78 (38-126) U/L Total Protein 6.7 (6.3-8.2) g/dL Albumin 3.7 (3.5-5.0) g/dL Assessment and Plan Assessment: #1 4.9 cm infrarenal abdominal aortic aneurysm, stable #2 COPD exacerbation #3 Peripheral arterial disease, occluded left superficial femoral artery stent #4 Tobacco abuse #5 Coronary artery disease #6 hypertension #7 hyperlipidemia #8 alcohol abuse Plan: At this point, from a vascular standpoint there is no evidence of need for emergent intervention. There has been minimal increase in size from 4.7 cm to 4.9 cm in the past year. His aneurysm is of size that can be followed up as an outpatient with ultrasounds. He may follow back up with the vascular surgeon here seen in the past or he is welcome to follow-up with Dr. Alanis in our office. Thank you for this consultation and allowing us to participate in the care of this patient The above dictated assessment and findings were discussed with Dr. Alanis. The impression and plan of care have been directed as dictated.
--- NOTE | 2020-04-16 20:50 | CONS ---
CONSULTATION DATE OF DICTATION: 04/16/2020 REASON FOR CONSULTATION: Epigastric pain. HISTORY OF PRESENT ILLNESS: The patient is a 69-year-old white male admitted to the hospital because of severe epigastric pain for the last few days' duration. He has a history of alcohol abuse in the past. He came to the emergency room complaining of this epigastric pain that has been progressively getting worse but no nausea or vomiting. No rectal bleeding or melena. In the emergency room he was noted to have mild elevation of lipase, and hence we are consulted in regards to this issue. The patient denies ever having episodes of pancreatitis in the past. He denies any prior history of peptic ulcer disease or recent NSAID use. He did have a CT of the abdomen and pelvis done early this morning that showed old granulomatous disease, 5 cm aneurysm of the lower abdominal aorta, sigmoid diverticulosis, and no evidence of pancreatitis. PAST MEDICAL HISTORY: His past medical history is significant for alcohol use, congestive heart failure, coronary artery disease, hypertension, hyperlipidemia, seizure disorder, syncope, hypothyroidism, ischemic cardiomyopathy, ejection fraction of 20% to 25%. PAST SURGICAL HISTORY: Back surgery, CABG, cardiac catheterization with stent placement. ALLERGIES: MORPHINE, PENICILLIN, INFLUENZA Vaccine. MEDICATIONS AT HOME: Medications at home include aspirin, metoprolol, Zocor, Demadex, Plavix, Zantac, Depakote, Synthroid, omeprazole and ramipril. SOCIAL HISTORY: Chronic smoker. Alcohol use as mentioned above. FAMILY HISTORY: Mother had COPD. Father was an alcoholic. REVIEW OF SYSTEMS: CARDIOPULMONARY: No chest pain or shortness of breath. GENITOURINARY: No dysuria or hematuria. MUSCULOSKELETAL: Unremarkable. SKIN: Unremarkable. ENDOCRINE: Unremarkable. PSYCHIATRIC: Unremarkable other than his history of anxiety and depression and schizophrenia. NEUROLOGY: Unremarkable. ENT/VISION: Unremarkable. CONSTITUTIONAL: No recent weight loss. No fever, chills, night sweats. PHYSICAL EXAMINATION: He appears comfortable. VITAL SIGNS: Stable. Blood pressure is 144/94, pulse rate 57, temperature 97.7. HEENT examination unremarkable. Conjunctivae pink. Sclerae anicteric. Oral cavity no lesions. NECK: No JVD or lymph node enlargement. CHEST: Clear to auscultation. HEART: Regular rate and rhythm. ABDOMEN: Soft. Bowel sounds are positive. Tenderness in the epigastric area. There was mild tenderness in the rest of the abdomen. EXTREMITIES: No pedal edema. SKIN: No rashes. NEUROLOGIC: Alert and oriented x3. No focal deficits. LABS: WBC 4.1, hemoglobin 13.3, platelets 135. Basic metabolic panel is within normal limits. PTT and INR within normal limits. BUN 11, creatinine 1.01. Lipase is 342. IMPRESSION: 1. Epigastric pain for the last 3 days' duration. Patient noted to have mild elevation of serum lipase, but CT of the abdomen did not show any evidence of acute pancreatitis. At this time the possibility of mild acute pancreatitis versus peptic ulcer disease needs to be considered. 2. History of alcohol abuse. 3. Mild exacerbation of chronic obstructive pulmonary disease. 4. History of coronary artery disease, status post coronary artery bypass grafting. RECOMMENDATIONS: 1. Start him on Protonix 40 mg daily. 2. Clear liquid diet and advance as tolerated. 3. Proceed with an upper endoscopy tomorrow. Discussed with the patient risks, benefits and complications, and he is agreeable to it. Thank you for this consultation. GIOL / IJN: [id number] /
[2020-04-16] MEDS ORDERED: ATORVASTATIN 10 MG TAB PO SCH (21:00)
[2020-04-16] MEDS: methylPREDNISolone SOD SUCCI 40 MG/ML 1 ML VIAL IV SCH (23:43)
[2020-04-17] MEDS: PANTOPRAZOLE 40 MG TABLET PO SCH (06:03)
[2020-04-17] MEDS: LEVOTHYROXINE 75 MCG TAB PO SCH (06:04)
[2020-04-17] MEDS: SODIUM CHLORIDE 0.9% 1,000 ML IV SCH ×2 (06:06→11:02)
[2020-04-17 07:09] LABS: ALT 23 U/L (4-49); AST 39 U/L (17-59); African American GFR (CKD) >90 (>60 ml/min/1.73 sqM); Albumin 2.9 g/dL (3.5-5.0); Alkaline Phosphatase 67 U/L (38-126); Anion Gap 6 mmol/L; Blood Urea Nitrogen 9 mg/dL (9-20); Calcium 7.4 mg/dL (8.4-10.2); Carbon Dioxide 18 mmol/L (22-30); Chloride 112 mmol/L (98-107); Glucose 139 mg/dL (74-99); Non-African American GFR(CKD) >90 (>60 ml/min/1.73 sqM); Potassium 4.3 mmol/L (3.5-5.1); Sodium 136 mmol/L (137-145); Total Bilirubin 0.3 mg/dL (0.2-1.3); Total Protein 5.7 g/dL (6.3-8.2)
[2020-04-17] MEDS: IPRATROPIUM-ALBUTEROL 3 ML NEB INHALATION PRN (08:00)
[2020-04-17 08:49] VITALS: RESP 16; TEMP 97.3
[2020-04-17] MEDS: methylPREDNISolone SOD SUCCI 40 MG/ML 1 ML VIAL IV SCH ×2 (11:00→16:55)
[2020-04-17] MEDS ORDERED: PROPOFOL 10 MG/ML 20 ML VIAL IV ONE (12:18)
--- NOTE | 2020-04-17 12:25 | P.CNPUL ---
History of Present Illness Consult date: 04/17/20 Reason for consult: dyspnea, cough, COPD Chief complaint: Increased shortness of breath cough and congestion for last few days History of present illness: This is a 69-year-old male with extensive history of smoking and nicotine use in the past came into the hospital with ongoing shortness of breath, patient still smokes half pack per day. Previously used to smoke one to 2 packs per day, he also has issues associated with alcohol, his been having intermittent abdominal pain and GI service has been following Review of Systems All systems: negative Past Medical History Past Medical History: Coronary Artery Disease (CAD), Heart Failure, Dementia, Hyperlipidemia, Hypertension, Seizure Disorder, Syncope, Thyroid Disorder Additional Past Medical History / Comment(s): Ischemic cardiomyopathy, EF 20- 25%, last seizure about 2 yrs ago, hypothyroid.neuropathy "WHEN HE WORKED HE HAD A CRUSHING INJURY -COLLAPSED LUNGS C/T AND HAS CHRONIC BACK PAIN"" pt states he is schizophrenic/bipolar. History of Any Multi-Drug Resistant Organisms: None Reported Past Surgical History: AICD, Back Surgery, Coronary Bypass/CABG, Heart Catheterization, Heart Catheterization With Stent Additional Past Surgical History / Comment(s): 1995 CABG 4 vessel in [place], has had 2"HEART CATHS/had 2 STENTS after cabg sx.pt stated they were done in [facility]. "sx on tailbone, cortisone injections, devin inguinal hernia repair Past Anesthesia/Blood Transfusion Reactions: No Reported Reaction Date of Last Stent Placement:: 1995 Type of Cardiac Device: AICD Device Placement Date:: [address] [facility] Past Psychological History: Anxiety, Depression, Schizoaffective Disorder, Schizophrenia Smoking Status: Current every day smoker Past Alcohol Use History: None Reported Past Drug Use History: None Reported - Past Family History Mother Family Medical History: Respiratory Disorder Additional Family Medical History / Comment(s): Mother had TB Father Additional Family Medical History / Comment(s): Father was an alcoholic. Medications and Allergies Home Medications Medication Instructions Recorded Confirmed Type Aspirin EC [Ecotrin Low Dose] 81 mg PO DAILY 09/08/18 04/16/20 History Metoprolol Tartrate [Lopressor] 12.5 mg PO BID 09/08/18 04/16/20 History Simvastatin [Zocor] 20 mg PO HS 12/18/18 04/16/20 History Torsemide [Demadex] 5 mg PO DAILY 12/18/18 04/16/20 History Clopidogrel [Plavix] 75 mg PO DAILY 12/30/18 04/16/20 History Divalproex [Depakote] 500 mg PO HS 03/03/19 04/16/20 History Levothyroxine Sodium [Synthroid] 75 mcg PO DAILY 03/03/19 04/16/20 History ramipriL [Ramipril] 1.25 mg PO DAILY 03/03/19 04/16/20 History Carbidopa-Levodopa 10-100 mg 1 tab PO TID 04/16/20 04/16/20 History [Sinemet 10-100] Omeprazole [PriLOSEC] 40 mg PO DAILY 04/16/20 04/16/20 History Paliperidone IM [Invega Sustenna] 156 mg IM Q28D 04/16/20 04/16/20 History Allergies Allergy/AdvReac Type Severity Reaction Status Date / Time morphine Allergy Anaphylaxis Verified 04/16/20 07:25 Penicillins Allergy Swelling Verified 04/16/20 07:40 Influenza Virus Vaccines AdvReac Unknown Verified 04/16/20 07:25 pneumococcal vaccine AdvReac Unknown Verified 04/16/20 07:25 Physical Exam Vitals: Vital Signs Temp Pulse Pulse Resp BP Pulse Ox 04/17/20 09:10 16 04/17/20 08:47 97.3 F L 87 16 106/64 97 04/17/20 08:09 76 04/17/20 08:01 74 96 04/17/20 04:00 98.2 F 77 19 118/70 98 04/16/20 20:47 60 04/16/20 20:39 61 97 04/16/20 20:00 98.4 F 62 18 144/63 97 04/16/20 15:00 97.7 F 67 16 144/94 99 Intake and Output 04/16/20 04/17/20 04/17/20 22:59 06:59 14:59 Output Total 150 880 Balance -150 -880 Output: Urine 150 880 Other: Voiding Method Urinal - Constitutional General appearance: average body habitus, cooperative, disheveled - EENT Eyes: EOMI, PERRLA Ears: bilateral: normal - Neck Neck: normal ROM Carotids: bilateral: upstroke normal - Respiratory Respiratory: bilateral: diminished - Cardiovascular Rhythm: regular Heart sounds: normal: S1, S2 - Gastrointestinal General gastrointestinal: normal bowel sounds - Integumentary Integumentary: normal turgor - Neurologic Neurologic: CNII-XII intact - Musculoskeletal Musculoskeletal: gait normal, generalized weakness, strength equal bilaterally - Psychiatric Psychiatric: A&O x's 3, appropriate affect, intact judgment & insight Results - Laboratory Findings CBC and BMP: 04/16/20 02:02 04/17/20 05:34 PT/INR, D-dimer PT 10.4 sec (9.0-12.0) 04/16/20 02:02 INR 1.0 (<1.2) 04/16/20 02:02 Abnormal lab findings: Abnormal Labs 04/16/20 04/16/20 04/17/20 02:02 02:02 05:34 Plt Count 135 L Sodium 135 L 136 L Chloride 112 H Carbon Dioxide 21 L 18 L Glucose 139 H Calcium 7.4 L Total Protein 5.7 L Albumin 2.9 L Lipase 342 H - Diagnostic Findings Chest x-ray: report reviewed, image reviewed Assessment and Plan Assessment: Acute COPD exacerbation Epigastric pain\\\\history of alcohol abuse Abdominal aortic aneurysm of 5 cm Sigmoid diverticulosis Plan: Agree with upper endoscopy Continue bronchodilator IV steroids however can be tapered to oral prednisone next 24-48 hours with quick taper to DC Further recommendations pending plan of care as per clinical response of the patient Abdominal aortic aneurysm 5 cm in size, consider vascular surgery evaluation and follow-up Time with Patient: Greater than 30
[2020-04-17] MEDS ORDERED: IV FLUID CONTINUATION 1,000 ML IV ONE (12:26)
--- NOTE | 2020-04-17 12:28 | P.PCN ---
Date of Procedure: 04/17/20 Procedure(s) Performed: BRIEF HISTORY: Patient is a 69-year-old, pleasant, white male scheduled for an upper endoscopy as part of evaluation of severe epigastric pain for the last 3 or 4 days duration. His and scheduled for an upper endoscopy to evaluate further. Lipase was slightly elevated but CAT scan did not show any evidence of pancreatitis.. PROCEDURE PERFORMED: Esophagogastroduodenoscopy With biopsy PREOPERATIVE DIAGNOSIS: Epigastric pain. IV sedation per anesthesia. PROCEDURE: After informed consent was obtained, the patient was brought into the endoscopy unit. IV sedation was administered by Anesthesia under continuous monitoring. Initially the Olympus GIF-140 video endoscope was inserted into the mouth. Esophagus intubated without any difficulty. It was gradually advanced into the stomach and duodenum and carefully examined. The bulb and the second part of the duodenum appeared normal. The scope at this time was withdrawn to the stomach, adequately insufflated with air, and upon careful examination, mucosa of the antrum, mild gastritis and biopsies were done from this area. Thebody, cardia and the fundus appeared normal. The scope was then withdrawn into the esophagus. Small sliding type hiatal hernia noted. The GE junction was located at 39 cm from the incisors. The esophagus appeared normal. There were no erosions or ulcerations seen and the patient tolerated the procedure well. IMPRESSION: 1. Small hiatal hernia. 2. Mild antral gastritis, no evidence of peptic ulcer disease RECOMMENDATIONS: The findings of this examination were discussed with the patient . He was advised to follow with the biopsy results. Diet will be advanced as tolerated. Continue with Protonix 40 mg daily and follow antireflux measures.
[2020-04-17] MEDS: METOPROLOL TARTRATE 12.5 MG TAB PO SCH (13:06)
[2020-04-17] MEDS: FUROSEMIDE 10 MG TAB PO SCH (13:06)
[2020-04-17] MEDS: lisinopriL 5 MG TAB PO SCH (13:07)
[2020-04-17] MEDS: DIVALPROEX 500 MG TABLET.DR PO SCH (13:07)
[2020-04-17] MEDS: ASPIRIN 81 MG PO SCH (13:07)
[2020-04-17] MEDS: FAMOTIDINE 20 MG TAB PO SCH (13:07)
[2020-04-17] MEDS: CLOPIDOGREL 75 MG TAB PO SCH (13:07)
[2020-04-17] MEDS: NICOTINE 21MG/24HR PATCH TRANSDERM SCH (13:08)
[2020-04-17] MEDS ORDERED: THIAMINE 100 MG/ML 2 ML VIAL IM STA (15:15)
[2020-04-17] MEDS ORDERED: LORazepam 2 MG/ML INJ IV PRN ×3 (15:15)
[2020-04-17 16:38] VITALS: BP 133/77; PULSE 72
[2020-04-17] MEDS ORDERED: THIAMINE 100 MG TAB PO SCH (17:30)
--- NOTE | 2020-05-07 06:43 | DS ---
DISCHARGE SUMMARY DATE OF ADMISSION: 04/16/2020 DATE OF DISCHARGE: 04/17/2020 MEDICATIONS: Lopressor 12.5 b.i.d., aspirin 81 mg daily, Zocor 20 mg daily, Demadex 5 mg daily, Plavix 75 mg daily, Ramipril 1.25 mg daily, Synthroid 75 mcg daily, Depakote 500 daily, omeprazole 40 daily, Sinemet 1 tab t.i.d., Invega Sustenna 156 mg IM every 28 days. CONDITION: Stable. PROGNOSIS: Guarded. ACTIVITY: Ambulate as tolerated. HISTORY: White male who came in with atypical chest pain, COPD exacerbation. Seen by Dr. Lizy Casillas. He had an EGD with a biopsy. The patient was cleared by her for discharge. Cleared by Cardiology for discharge. Follow up as an outpatient. MMODL / MADELAINEN: [id number] /
== END 2020-04-17 19:00 | disposition home or self-care (01) ==
LOC: EC 01:50 → 3NCARDOBS 04:33
PROVIDERS: ADMIT Family Medicine; ATTEND Family Medicine
DX: J44.1 Chronic obstructive pulmonary disease with (acute) exacerbation (principal); K29.70 Gastritis, unspecified, without bleeding; K44.9 Diaphragmatic hernia without obstruction or gangrene; I25.10 Atherosclerotic heart disease of native coronary artery without angina pectoris; I11.0 Hypertensive heart disease with heart failure; I50.9 Heart failure, unspecified; F03.90 Unspecified dementia, unspecified severity, without behavioral disturbance, psychotic disturbance, mood disturbance, and anxiety; E78.5 Hyperlipidemia, unspecified; K86.0 Alcohol-induced chronic pancreatitis; I71.4 Abdominal aortic aneurysm, without rupture; F10.10 Alcohol abuse, uncomplicated; F17.210 Nicotine dependence, cigarettes, uncomplicated; G40.909 Epilepsy, unspecified, not intractable, without status epilepticus; I25.5 Ischemic cardiomyopathy; E03.9 Hypothyroidism, unspecified; G62.9 Polyneuropathy, unspecified; G89.29 Other chronic pain; M54.9 Dorsalgia, unspecified; F31.9 Bipolar disorder, unspecified; Z95.1 Presence of aortocoronary bypass graft; Z95.5 Presence of coronary angioplasty implant and graft; Z95.810 Presence of automatic (implantable) cardiac defibrillator; Z98.890 Other specified postprocedural states; F41.9 Anxiety disorder, unspecified; F32.9 Major depressive disorder, single episode, unspecified; F25.9 Schizoaffective disorder, unspecified; F20.9 Schizophrenia, unspecified; F17.200 Nicotine dependence, unspecified, uncomplicated; Z83.6 Family history of other diseases of the respiratory system; Z79.02 Long term (current) use of antithrombotics/antiplatelets; Z81.1 Family history of alcohol abuse and dependence; Z79.82 Long term (current) use of aspirin; Z79.890 Hormone replacement therapy; Z79.899 Other long term (current) drug therapy; Z88.5 Allergy status to narcotic agent; Z88.0 Allergy status to penicillin; Z88.7 Allergy status to serum and vaccine; Z95.820 Peripheral vascular angioplasty status with implants and grafts; Z82.5 Family history of asthma and other chronic lower respiratory diseases
CPT/HCPCS: 43239; 96376 ×2; 96374; 99285; 36415; 94640 ×3; 94760; 93005; 88305; 83880; 80053 ×2; 83690 ×2; 83735; 84484; 85025; 85610; 85730; 71046; 74177; G0378 ×2; J2920 ×2; J2930; J3411; J2704; Q9967

== ENCOUNTER 2020-06-14 13:36 | Observation (INO) | payer MEDICARE, OTHER ==
[2020-06-14] MEDS ORDERED: ALBUTEROL NEBULIZED 2.5 MG/3 ML INHALATION STA (14:00)
[2020-06-14] MEDS ORDERED: DEXAMETHASONE SOD PHOSPHATE 10 MG/ML 1 ML VIAL IV STA (14:00)
[2020-06-14] MEDS ORDERED: IPRATROPIUM-ALBUTEROL 3 ML NEB INHALATION STA (14:00)
--- NOTE | 2020-06-14 14:16 | XR ---
EXAMINATION TYPE: XR chest 2V DATE OF EXAM: 06/14/2020 COMPARISON: 04/16/2020 INDICATION: Chest pain TECHNIQUE: Frontal and lateral views of the chest are obtained. FINDINGS: The heart size is normal. The pulmonary vasculature is normal. The lungs are clear. Pacemaker overlies the right chest. Sternotomy wires are present in midline. IMPRESSION: 1. No acute pulmonary process.
[2020-06-14 14:37] LABS: Basophils % (A) 1 %; Eosinophils # (A) 0.1 k/uL (0-0.7); Eosinophils % (A) 1 %; HCT 50.4 % (39.0-53.0); HGB 15.8 gm/dL (13.0-17.5); Lymphocytes # (A) 1.8 k/uL (1.0-4.8); Lymphocytes % (A) 36 %; MCH 30.2 pg (25.0-35.0); MCHC 31.4 g/dL (31.0-37.0); Monocytes # (A) 0.7 k/uL (0-1.0); Monocytes % (A) 13 %; Neutrophils # (A) 2.4 k/uL (1.3-7.7); Neutrophils % (A) 48 %; RBC 5.23 m/uL (4.30-5.90); WBC 5.1 k/uL (3.8-10.6)
[2020-06-14 14:38] LABS: Albumin 4.1 g/dL (3.5-5.0); Calcium 9.3 mg/dL (8.4-10.2); Potassium 4.4 mmol/L (3.5-5.1); Total Bilirubin 0.6 mg/dL (0.2-1.3); Total Protein 7.3 g/dL (6.3-8.2)
[2020-06-14 14:39] LABS: MCV 96.3 fL (80.0-100.0)
--- NOTE | 2020-06-14 14:41 | ED ---
General Adult HPI - General Chief complaint: Chest Pain Stated complaint: Back Pain Time Seen by Provider: 06/14/20 13:49 Source: patient, EMS, RN notes reviewed, old records reviewed Mode of arrival: EMS Limitations: no limitations - History of Present Illness Initial comments: 70-year-old male presenting for evaluation of dyspnea, central chest pain. Pain is been going on for past several days. He does report cough he is a current smoker. He had reported in triage that he had some pain between her shoulder blades as well. He denies any back pain to me. States the pain is in his chest, and it stays in the front of his chest. He denies associated nausea or vomiting. He states he has felt somewhat dizzy and lightheaded. He does report cough which is productive of white sputum and mild dyspnea. - Related Data Home Medications Medication Instructions Recorded Confirmed Aspirin EC [Ecotrin Low Dose] 81 mg PO DAILY 09/08/18 04/16/20 Metoprolol Tartrate [Lopressor] 12.5 mg PO BID 09/08/18 04/16/20 Simvastatin [Zocor] 20 mg PO HS 12/18/18 04/16/20 Torsemide [Demadex] 5 mg PO DAILY 12/18/18 04/16/20 Clopidogrel [Plavix] 75 mg PO DAILY 12/30/18 04/16/20 Divalproex [Depakote] 500 mg PO HS 03/03/19 04/16/20 Levothyroxine Sodium [Synthroid] 75 mcg PO DAILY 03/03/19 04/16/20 ramipriL [Ramipril] 1.25 mg PO DAILY 03/03/19 04/16/20 Carbidopa-Levodopa 10-100 mg 1 tab PO TID 04/16/20 04/16/20 [Sinemet 10-100 mg] Omeprazole [PriLOSEC] 40 mg PO DAILY 04/16/20 04/16/20 Paliperidone IM [Invega Sustenna] 156 mg IM Q28D 04/16/20 04/16/20 Allergies Allergy/AdvReac Type Severity Reaction Status Date / Time morphine Allergy Anaphylaxis Verified 06/14/20 15:17 Penicillins Allergy Swelling Verified 06/14/20 15:17 Influenza Virus Vaccines AdvReac Unknown Verified 06/14/20 15:17 pneumococcal vaccine AdvReac Unknown Verified 06/14/20 15:17 Review of Systems ROS Statement: Those systems with pertinent positive or pertinent negative responses have been documented in the HPI. ROS Other: All systems not noted in ROS Statement are negative. Past Medical History Past Medical History: Coronary Artery Disease (CAD), Heart Failure, Dementia, Hyperlipidemia, Hypertension, Seizure Disorder, Syncope, Thyroid Disorder Additional Past Medical History / Comment(s): Ischemic cardiomyopathy, EF 20- 25%, last seizure about 2 yrs ago, hypothyroid.neuropathy "WHEN HE WORKED HE HAD A CRUSHING INJURY -COLLAPSED LUNGS C/T AND HAS CHRONIC BACK PAIN"" pt states he is schizophrenic/bipolar. History of Any Multi-Drug Resistant Organisms: None Reported Past Surgical History: AICD, Back Surgery, Coronary Bypass/CABG, Heart Catheterization, Heart Catheterization With Stent Additional Past Surgical History / Comment(s): 1995 CABG 4 vessel in [place], has had 2"HEART CATHS/had 2 STENTS after cabg sx.pt stated they were done in [facility]. "sx on tailbone, cortisone injections, devin inguinal hernia repair Past Anesthesia/Blood Transfusion Reactions: No Reported Reaction Date of Last Stent Placement:: 1995 Type of Cardiac Device: AICD Device Placement Date:: [address] [facility] Past Psychological History: Anxiety, Depression, Schizoaffective Disorder, Schizophrenia Smoking Status: Current every day smoker Past Alcohol Use History: None Reported Past Drug Use History: None Reported - Past Family History Mother Family Medical History: Respiratory Disorder Additional Family Medical History / Comment(s): Mother had TB Father Additional Family Medical History / Comment(s): Father was an alcoholic. General Exam Limitations: no limitations General appearance: alert, in no apparent distress Head exam: Present: atraumatic, normocephalic Eye exam: Present: normal appearance, PERRL ENT exam: Present: mucous membranes dry Neck exam: Present: normal inspection. Absent: tenderness, meningismus Respiratory exam: Present: wheezes, decreased breath sounds. Absent: respiratory distress Cardiovascular Exam: Present: regular rate, normal rhythm GI/Abdominal exam: Present: soft. Absent: distended, tenderness, guarding, rebound Extremities exam: Present: normal inspection, normal capillary refill. Absent: pedal edema Neurological exam: Present: alert, oriented X3, CN II-XII intact. Absent: motor sensory deficit Psychiatric exam: Present: normal affect, normal mood Skin exam: Present: warm, dry, intact Course Vital Signs 06/14/20 06/14/20 06/14/20 13:39 13:43 13:44 Temperature 99 F Pulse Rate 80 Pulse Rate [ 75 [employer] ] Respiratory 20 Rate Blood Pressure 155/89 O2 Sat by Pulse 99 Oximetry 06/14/20 06/14/20 06/14/20 14:06 14:14 14:30 Temperature Pulse Rate 67 78 75 Pulse Rate [ [employer] ] Respiratory 20 Rate Blood Pressure 139/92 O2 Sat by Pulse 97 Oximetry 06/14/20 06/14/20 15:32 16:33 Temperature 98.2 F Pulse Rate 67 68 Pulse Rate [ [employer] ] Respiratory 16 18 Rate Blood Pressure 107/65 122/62 O2 Sat by Pulse 98 99 Oximetry EKG Findings - EKG Comments: EKG Findings:: EKG: Normal sinus rhythm, artifact in lead 3, T-wave inversion inferiorly which is unchanged from prior as well as persisting Q waves consistent with inferior infarct. Rate of 78, NJ interval 128, QRS duration 98QTC 435, no ST segment elevation. Medical Decision Making - Medical Decision Making 70-year-old male with chest pain and dyspnea. Workup reveals EKG shows sinus rhythm without ST segment elevation per chest x-rays negative for focal pneumonia or acute findings. Patient has normal white blood cell count, stable hemoglobin, he does have tenderness cytopenia with (65, his d-dimer is elevated at 11. There is concern for pulmonary embolism, CT angiography is performed which is negative. Initial troponin is negative. He will be kept for best treatment of COPD and chest pain rule out. - Lab Data Result diagrams: 06/14/20 13:59 06/14/20 13:59 Lab Results 06/14/20 06/14/20 06/14/20 Range/Units 13:59 13:59 13:59 WBC 5.1 (3.8-10.6) k/uL RBC 5.23 (4.30-5.90) m/uL Hgb 15.8 (13.0-17.5) gm/dL Hct 50.4 (39.0-53.0) % MCV 96.3 D (80.0-100.0) fL MCH 30.2 (25.0-35.0) pg MCHC 31.4 (31.0-37.0) g/dL RDW 16.0 H (11.5-15.5) % Plt Count 65 L D (150-450) k/uL Neutrophils % 48 % Lymphocytes % 36 % Monocytes % 13 % Eosinophils % 1 % Basophils % 1 % Neutrophils # 2.4 (1.3-7.7) k/uL Lymphocytes # 1.8 (1.0-4.8) k/uL Monocytes # 0.7 (0-1.0) k/uL Eosinophils # 0.1 (0-0.7) k/uL Basophils # 0.0 (0-0.2) k/uL Manual Slide Review Performed RBC Morphology Normal PT 11.7 (9.0-12.0) sec INR 1.1 (<1.2) APTT 25.9 (22.0-30.0) sec D-Dimer 11.58 H (<0.60) mg/L FEU Sodium 134 L (137-145) mmol/L Potassium 4.4 (3.5-5.1) mmol/L Chloride 104 (98-107) mmol/L Carbon Dioxide 26 (22-30) mmol/L Anion Gap 4 mmol/L BUN 12 (9-20) mg/dL Creatinine 1.30 H (0.66-1.25) mg/dL Est GFR (CKD-EPI)AfAm 65 (>60 ml/min/1.73 sqM) Est GFR (CKD-EPI)NonAf 56 (>60 ml/min/1.73 sqM) Glucose 101 H (74-99) mg/dL Calcium 9.3 (8.4-10.2) mg/dL Magnesium 2.0 (1.6-2.3) mg/dL Total Bilirubin 0.6 (0.2-1.3) mg/dL AST 34 (17-59) U/L ALT 16 (4-49) U/L Alkaline Phosphatase 71 (38-126) U/L Troponin I (0.000-0.034) ng/mL NT-Pro-B Natriuret Pep pg/mL Total Protein 7.3 (6.3-8.2) g/dL Albumin 4.1 (3.5-5.0) g/dL Lipase 155 (23-300) U/L 06/14/20 06/14/20 Range/Units 13:59 13:59 WBC (3.8-10.6) k/uL RBC (4.30-5.90) m/uL Hgb (13.0-17.5) gm/dL Hct (39.0-53.0) % MCV (80.0-100.0) fL MCH (25.0-35.0) pg MCHC (31.0-37.0) g/dL RDW (11.5-15.5) % Plt Count (150-450) k/uL Neutrophils % % Lymphocytes % % Monocytes % % Eosinophils % % Basophils % % Neutrophils # (1.3-7.7) k/uL Lymphocytes # (1.0-4.8) k/uL Monocytes # (0-1.0) k/uL Eosinophils # (0-0.7) k/uL Basophils # (0-0.2) k/uL Manual Slide Review RBC Morphology PT (9.0-12.0) sec INR (<1.2) APTT (22.0-30.0) sec D-Dimer (<0.60) mg/L FEU Sodium (137-145) mmol/L Potassium (3.5-5.1) mmol/L Chloride (98-107) mmol/L Carbon Dioxide (22-30) mmol/L Anion Gap mmol/L BUN (9-20) mg/dL Creatinine (0.66-1.25) mg/dL Est GFR (CKD-EPI)AfAm (>60 ml/min/1.73 sqM) Est GFR (CKD-EPI)NonAf (>60 ml/min/1.73 sqM) Glucose (74-99) mg/dL Calcium (8.4-10.2) mg/dL Magnesium (1.6-2.3) mg/dL Total Bilirubin (0.2-1.3) mg/dL AST (17-59) U/L ALT (4-49) U/L Alkaline Phosphatase (38-126) U/L Troponin I <0.012 (0.000-0.034) ng/mL NT-Pro-B Natriuret Pep 644 pg/mL Total Protein (6.3-8.2) g/dL Albumin (3.5-5.0) g/dL Lipase (23-300) U/L Disposition Clinical Impression: COPD with exacerbation, Chest pain Disposition: ADMITTED IP TO THIS HOSP Condition: Stable Is patient prescribed a controlled substance at d/c from ED?: No Referrals: Raffaele Verdin MD [Primary Care Provider] - 1-2 days Decision to Admit Reason: Admit from EC Decision Date: 06/14/20 Decision Time: 16:53
[2020-06-14 14:45] LABS: INR 1.1 (<1.2); Partial Thromboplastin Time 25.9 sec (22.0-30.0); Prothrombin Time 11.7 sec (9.0-12.0)
[2020-06-14 15:01] LABS: D-Dimer 11.58 mg/L FEU (<0.60)
[2020-06-14 15:06] LABS: Platelet Count 65 k/uL (150-450)
[2020-06-14] MEDS ORDERED: SODIUM CHLORIDE 0.9% 1,000 ML IV ONE (15:14)
--- NOTE | 2020-06-14 16:40 | CT ---
CT CHEST FOR PULMONARY EMBOLISM. EXAMINATION TYPE: CT angio chest DATE OF EXAM: 06/14/2020 INDICATION: Difficulty breathing. CT DLP: 265.6 mGycm, Automated exposure control for dose reduction was used. CONTRAST: Patient injected with 80 mL of Isovue 370. COMPARISON: 05/01/2018 TECHNIQUE: CT of the chest is performed on a spiral scan at 2 mm thick sections. Study is performed with intravenous contrast timed for evaluation for pulmonary embolism. This will limit additional po rtions of the evaluation. 3-D MIP images reconstructed by the technologist are reviewed on the compu ter in the coronal and sagittal planes. FINDINGS: No persistent filling defects are evident to suggest an acute pulmonary embolism. No mediastinal or hilar adenopathy enlarged by CT criteria is evident. There are multiple small lymp h nodes present within the superior mediastinum The ascending aorta diameter at the level of the main pulmonary artery is 3.7 cm. The main pulmonary artery diameter at the bifurcation is 2.7 cm. Lung windows are clear. Note is made of a bleb at the superior medial left apex. Limited CT section through the upper abdomen. Scattered calcified granuloma are within the spleen. IMPRESSIONS: 1. No acute pulmonary embolism.
[2020-06-14] MEDS ORDERED: NALOXONE 0.4 MG/ML 1 ML VIAL IV PRN (16:49)
[2020-06-14] MEDS ORDERED: IPRATROPIUM-ALBUTEROL 3 ML NEB INHALATION PRN (16:49)
[2020-06-14] MEDS ORDERED: ASPIRIN 325 MG TAB PO STA (17:04)
[2020-06-14] MEDS ORDERED: HYDROmorphone 0.5 MG/0.5 ML SYRINGE IVP STA (17:04)
[2020-06-14] MEDS: HYDROmorphone 0.5 MG/0.5 ML SYRINGE IVP PRN ×2 (17:11→23:19)
[2020-06-14] MEDS: IPRATROPIUM-ALBUTEROL 3 ML NEB INHALATION SCH (20:24)
[2020-06-14] MEDS: CARBIDOPA-LEVODOPA 10-100 MG 1 EACH TAB PO SCH (21:54)
[2020-06-14] MEDS: ATORVASTATIN 10 MG TAB PO SCH (21:54)
[2020-06-14] MEDS: DIVALPROEX 500 MG TABLET.DR PO SCH (21:54)
[2020-06-14] MEDS: METOPROLOL TARTRATE 12.5 MG TAB PO SCH (21:54)
[2020-06-15] MEDS: LEVOTHYROXINE 75 MCG TAB PO SCH (06:44)
[2020-06-15] MEDS: PANTOPRAZOLE 40 MG TABLET PO SCH (06:44)
[2020-06-15] MEDS: IPRATROPIUM-ALBUTEROL 3 ML NEB INHALATION SCH ×4 (08:25→20:24)
[2020-06-15] MEDS: AZITHROMYCIN 500 MG TAB PO SCH (09:01)
[2020-06-15] MEDS: CARBIDOPA-LEVODOPA 10-100 MG 1 EACH TAB PO SCH ×3 (09:01→21:56)
[2020-06-15] MEDS: predniSONE 20 MG TAB PO SCH (09:01)
[2020-06-15] MEDS: ASPIRIN 81 MG PO SCH (09:01)
[2020-06-15] MEDS: lisinopriL 5 MG TAB PO SCH (09:01)
[2020-06-15] MEDS: VENLAFAXINE HCL ER 75 MG CAP PO SCH (09:01)
[2020-06-15] MEDS: METOPROLOL TARTRATE 12.5 MG TAB PO SCH ×2 (09:01→21:56)
[2020-06-15] MEDS: CLOPIDOGREL 75 MG TAB PO SCH (09:02)
[2020-06-15 09:41] LABS: Cholesterol 165 mg/dL (<200); HDL Cholesterol 54 mg/dL (40-60); LDL Cholesterol,Calculated 91 mg/dL (0-99); Triglycerides 100 mg/dL (<150)
--- NOTE | 2020-06-15 10:25 | P.HPIM ---
History of Present Illness H&P Date: 06/14/20 Chief Complaint: Difficulty in breathing \\\\\\ Patient is a 70-year-old male with a known history of chronic CHF with systolic dysfunction ejection fraction 20-20%, coronary artery disease status post CABG, cardiac catheterization stent placement, hypertension, hyperlipidemia, hypothyroidism and COPD and currently everyday smoker, anxiety depression and schizoaffective disorder and other multiple medical problems and seizure disorder presents to ER with complaints of shortness of breath and cough with leave to whitish sputum production which is getting worse for the past 1 week. Patient is also complaining of chest pain mainly mid retrosternal without any radiation. Patient was having cough and reported pain between his shoulder blades as well. Denied any fever or chills. No nausea vomiting or abdominal pain or diarrhea. Patient also felt some dizzy and lightheaded. No recent illnesses or sick contacts. Patient does have elevated d-dimer level and up to 11. CT angiogram showed no evidence of pulmonary embolism. Laboratory data reviewed (3 negative and a proBNP 644 Platelet count is 65. Platelet counts during previous admission was was around 100 EKG showed normal sinus rhythm. Review of Systems Constitutional: Patient denies any fever or chills . generalized weakness. No weight loss. Abdomen: Patient denied nausea vomiting and diarrhea and abdominal pain. Cardiovascular: Patient denies any chest pain or short of breath no palpitations. Respiratory: Patient does have cough with whitish sputum production and shortness of breath Neurologic: Patient denied any numbness or tingling headache. Musculoskeletal: Patient denies any complaints of joint swelling or deformity. Skin: Negative Psychiatric: Negative Endocrine: No heat or cold intolerance. No recent weight gain. Genitourinary: No dysuria or hematuria. All other 14 point ROS negative except the above Past Medical History Past Medical History: Coronary Artery Disease (CAD), Heart Failure, Dementia, Hyperlipidemia, Hypertension, Seizure Disorder, Syncope, Thyroid Disorder Additional Past Medical History / Comment(s): Ischemic cardiomyopathy, EF 20- 25%, last seizure about 2 yrs ago, hypothyroid.neuropathy "WHEN HE WORKED HE HAD A CRUSHING INJURY -COLLAPSED LUNGS C/T AND HAS CHRONIC BACK PAIN"" pt states he is schizophrenic/bipolar. History of Any Multi-Drug Resistant Organisms: None Reported Past Surgical History: AICD, Back Surgery, Coronary Bypass/CABG, Heart Catheterization, Heart Catheterization With Stent Additional Past Surgical History / Comment(s): 1995 CABG 4 vessel in [place], has had 2"HEART CATHS/had 2 STENTS after cabg sx.pt stated they were done in [facility]. "sx on tailbone, cortisone injections, devin inguinal hernia repair Past Anesthesia/Blood Transfusion Reactions: No Reported Reaction Date of Last Stent Placement:: 1995 Type of Cardiac Device: AICD Device Placement Date:: [address] [facility] Past Psychological History: Anxiety, Depression, Schizoaffective Disorder, Schizophrenia Smoking Status: Current every day smoker Past Alcohol Use History: None Reported Past Drug Use History: None Reported - Past Family History Mother Family Medical History: Respiratory Disorder Additional Family Medical History / Comment(s): Mother had TB Father Additional Family Medical History / Comment(s): Father was an alcoholic. Medications and Allergies Home Medications Medication Instructions Recorded Confirmed Type Aspirin EC [Ecotrin Low Dose] 81 mg PO DAILY 09/08/18 06/14/20 History Metoprolol Tartrate [Lopressor] 12.5 mg PO BID 09/08/18 06/14/20 History Simvastatin [Zocor] 20 mg PO HS 12/18/18 06/14/20 History Torsemide [Demadex] 5 mg PO DAILY 12/18/18 06/14/20 History Clopidogrel [Plavix] 75 mg PO DAILY 12/30/18 06/14/20 History Divalproex [Depakote] 500 mg PO HS 03/03/19 06/14/20 History Levothyroxine Sodium [Synthroid] 75 mcg PO DAILY 03/03/19 06/14/20 History ramipriL [Ramipril] 1.25 mg PO DAILY 03/03/19 06/14/20 History Carbidopa-Levodopa 10-100 mg 1 tab PO TID 04/16/20 06/14/20 History [Sinemet 10-100 mg] Omeprazole [PriLOSEC] 40 mg PO DAILY 04/16/20 06/14/20 History Paliperidone IM [Invega Sustenna] 156 mg IM Q28D 04/16/20 06/14/20 History Venlafaxine HCl [Effexor XR] 75 mg PO DAILY 06/14/20 06/14/20 History hydrOXYzine pamoate [hydrOXYzine 50 mg PO HS PRN 06/14/20 06/14/20 History PAMOATE] Allergies Allergy/AdvReac Type Severity Reaction Status Date / Time morphine Allergy Anaphylaxis Verified 06/14/20 17:36 Penicillins Allergy Swelling Verified 06/14/20 17:36 Influenza Virus Vaccines AdvReac Unknown Verified 06/14/20 17:36 pneumococcal vaccine AdvReac Unknown Verified 06/14/20 17:36 Physical Exam Vitals: Vital Signs Temp Pulse Pulse Resp BP Pulse Ox 06/14/20 17:14 72 18 128/62 06/14/20 16:33 98.2 F 68 18 122/62 99 06/14/20 15:32 67 16 107/65 98 06/14/20 14:30 75 06/14/20 14:14 78 06/14/20 14:06 67 20 139/92 97 06/14/20 13:44 75 06/14/20 13:43 155/89 06/14/20 13:39 99 F 80 20 99 Intake and Output 06/14/20 06/14/20 06/14/20 06:59 14:59 22:59 Intake Total 1000 Balance 1000 Intake: Amount of Fluid Infused ( 1000 ml) Other: Weight 65.771 kg PHYSICAL EXAMINATION: Patient is lying in the bed comfortably, no acute distress, awake alert and oriented.. HEENT: Normocephalic. Neck is supple. Pupils reactive. Nostrils clear. Oral cavity is moist. Ears reveal no drainage. Neck reveals no JVD, carotid bruits, or thyromegaly. CHEST EXAMINATION: Trachea is central. Symmetrical expansion. Bilateral diffuse rhonchi and expiratory wheezing.. CARDIAC: Normal S1, S2 with no gallops. No murmurs ABDOMEN: Soft. Bowel sounds normal. No organomegaly. No abdominal bruits. Extremities: reveal no edema. No clubbing or cyanosis Neurologically awake, alert, oriented x3 with well-coordinated movements. No focal deficits noted Skin: No rash or skin lesions. Psychiatric: Coperative. Denied any Susa radiation. Musculoskeletal: No joint swelling or deformity. Normal range of motion. Results CBC & Chem 7: 06/14/20 13:59 06/14/20 13:59 Labs: Abnormal Lab Results - Last 24 Hours (Table) 06/14/20 06/14/20 06/14/20 Range/Units 13:59 13:59 13:59 RDW 16.0 H (11.5-15.5) % Plt Count 65 L D (150-450) k/uL D-Dimer 11.58 H (<0.60) mg/L FEU Sodium 134 L (137-145) mmol/L Creatinine 1.30 H (0.66-1.25) mg/dL Glucose 101 H (74-99) mg/dL Thrombosis Risk Factor Assmnt - DVT/VTE Prophylaxis DVT/VTE Prophylaxis: Pharmacologic Prophylaxis ordered Assessment and Plan Assessment: -Shortness of breath and cough secondary to Acute COPD exacerbation -Atypical chest pain. Rule out ACS. -Thrombocytopenia. Exact etiology unknown at this time. Liver enzymes are not elevated. 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 Serial troponin 3 negative. BNP is not elevated. Cardiology was consulted for evolution of chest pain. Continue with home medications and follow up closely. Monitor platelet count. Further recommendations based on the clinical course. Smoking cessation has been counseled extensively. Time with Patient: Greater than 30
[2020-06-15 11:43] LABS: Anisocytosis Slight; Basophils % (A) 0 %; Eosinophils % (A) 0 %; Lymphocytes # (A) 1.3 k/uL (1.0-4.8); Lymphocytes % (A) 15 %; MCH 29.8 pg (25.0-35.0); MCHC 30.5 g/dL (31.0-37.0); MCV 97.7 fL (80.0-100.0); Macrocytosis Slight; Mean Platelet Volume 10.8; Monocytes # (A) 0.4 k/uL (0-1.0); Monocytes % (A) 5 %; Neutrophils # (A) 6.8 k/uL (1.3-7.7); Neutrophils % (A) 79 %; RDW 16.1 % (11.5-15.5); WBC 8.7 k/uL (3.8-10.6)
[2020-06-15 11:45] LABS: Calcium 8.6 mg/dL (8.4-10.2); Potassium 4.9 mmol/L (3.5-5.1)
[2020-06-15 11:46] LABS: Platelet Count 78 k/uL (150-450)
--- NOTE | 2020-06-15 12:07 | P.CRDCN ---
History of Present Illness Consult date: 06/15/20 Consult reason: chest pain History of present illness: History of present illness: This is a 70-year-old male past medical history significant for coronary artery disease s/p bypass grafting in [place] and AICD placement in [place], exact details unavailable. He also has hypertension, dyslipidemia, ischemic cardiomyopathy, chronic systolic heart failure, infrarenal abdominal aortic aneurysm, left SFA stent, chronic nicotine dependence. He is noncompliant and does not follow in the office with a lecturer of portuguese. He also has significant psychiatric illness. The patient complains of midsternal chest pain and throbbing type sensation onset while he was sitting drinking coffee and smoking a cigarette. He states he also has chest pain with activity goes to his neck. Pain started yesterday but is completely gone now. He received steroids, nebulizer in 2 doses of Dilaudid in the emergency center. EKG was a sinus rhythm with no acute ST changes. CT of the chest was negative for pulmonary embolism. Chest x-ray did not show any acute findings. Troponin negative on 3 draws. D-dimer was elevated at 11.58. Creatinine 1.3. Hemoglobin 15.8 and platelet count 65. He is seen and examined resting comfortably lying completely flat in bed in no acute distress. He denies any further symptoms of chest pain or shortness of breath. Echocardiogram from August of this year revealed ejection fraction 40-45%, LA severely dilated, moderate mitral regurgitation, mild tricuspid regurgitation. Patient is a active smoker of half a pack per day since he was 13 years of age. He uses marijuana on a regular basis and alcohol use is occasional. Review Of Systems: At the time of my evaluation Constitutional: No fever, no chills. No weakness, fatigue or lethargy. EENT: No headache. No dizziness. Lungs: No shortness of breath, cough, no sputum production. No wheezing. Cardiovascular: No chest pain, no lower extremity edema. No palpitations. No paroxysmal nocturnal dyspnea. No orthopnea. No lightheadedness or dizziness. No syncopal episodes. Abdominal: No abdominal pain. No nausea, vomiting. No diarrhea. Musculoskeletal: No myalgias. No muscle weakness, no gait dysfunction, no frequent falls. Integumentary: No wounds, no rash or pruritus. Neurologic: No aphasia. No facial droop. No change in mentation. No head injury. No headache. Psychiatric: No depression. No anxiety. Endocrine: No abnormal blood sugars. Physical examination: Gen: This is a 70-year-old disheveled appearing male. He is resting in bed and appears to be comfortable and in no acute distress. VS: Afebrile, heart rate 76, blood pressure 151/89, pulse ox 100% on room air. HEENT: Head is atraumatic, normocephalic. Pupils equal, round. Sclerae is anicteric. NECK: Supple. No JVD. No lymphadenopathy. No thyromegaly. LUNGS: Clear to auscultation. No wheezes or rhonchi. No intercostal retractions. HEART: Regular rate and rhythm. Systolic ejection murmur. ABDOMEN: Soft. Bowel sounds are present. No masses. No tenderness. EXTREMITIES: No pedal edema. No calf tenderness. NEUROLOGICAL: Patient is awake, alert and oriented x3. Cranial nerves 2 through 12 are grossly intact. Assessment: Chest pain, atypical. An acute coronary event has been ruled out. History of coronary artery disease status post bypass grafting Ischemic cardiomyopathy status post AICD placement Chronic systolic heart failure currently euvolemic Hypertension Dyslipidemia COPD Active tobacco use and dependence Plan: No need to repeat echocardiogram Recommend Lexiscan stress test Further recommendations to follow based upon clinical course Thank you kindly for this consultation. Nurse practitioner note has been reviewed, I agree with documented findings and plan of care. Patient was seen and examined. Past Medical History Past Medical History: Coronary Artery Disease (CAD), Heart Failure, Dementia, Hyperlipidemia, Hypertension, Seizure Disorder, Syncope, Thyroid Disorder Additional Past Medical History / Comment(s): Ischemic cardiomyopathy, EF 20-25% , last seizure about 2 yrs ago, hypothyroid.neuropathy "WHEN HE WORKED HE HAD A CRUSHING INJURY -COLLAPSED LUNGS C/T AND HAS CHRONIC BACK PAIN"" pt states he is schizophrenic/bipolar. History of Any Multi-Drug Resistant Organisms: None Reported Past Surgical History: AICD, Back Surgery, Coronary Bypass/CABG, Heart Catheterization, Heart Catheterization With Stent Additional Past Surgical History / Comment(s): 1995 CABG 4 vessel in [place], has had 2"HEART CATHS/had 2 STENTS after cabg sx.pt stated they were done in [facility]. "sx on tailbone, cortisone injections, devin inguinal hernia repair Past Anesthesia/Blood Transfusion Reactions: No Reported Reaction Date of Last Stent Placement:: 1995 Type of Cardiac Device: AICD Device Placement Date:: [address] [facility] Past Psychological History: Anxiety, Depression, Schizoaffective Disorder, Schizophrenia Additional Psychological History / Comment(s): . Smoking Status: Current every day smoker Past Alcohol Use History: None Reported Additional Past Alcohol Use History / Comment(s): . Past Drug Use History: None Reported Additional Drug Use History / Comment(s): Pt states he smokes marijuana on occasion. - Past Family History Mother Family Medical History: Respiratory Disorder Additional Family Medical History / Comment(s): Mother had TB Father Additional Family Medical History / Comment(s): Father was an alcoholic. Medications and Allergies Home Medications Medication Instructions Recorded Confirmed Type Aspirin EC [Ecotrin Low Dose] 81 mg PO DAILY 09/08/18 06/14/20 History Metoprolol Tartrate [Lopressor] 12.5 mg PO BID 09/08/18 06/14/20 History Simvastatin [Zocor] 20 mg PO HS 12/18/18 06/14/20 History Torsemide [Demadex] 5 mg PO DAILY 12/18/18 06/14/20 History Clopidogrel [Plavix] 75 mg PO DAILY 12/30/18 06/14/20 History Divalproex [Depakote] 500 mg PO HS 03/03/19 06/14/20 History Levothyroxine Sodium [Synthroid] 75 mcg PO DAILY 03/03/19 06/14/20 History ramipriL [Ramipril] 1.25 mg PO DAILY 03/03/19 06/14/20 History Carbidopa-Levodopa 10-100 mg 1 tab PO TID 04/16/20 06/14/20 History [Sinemet 10-100 mg] Omeprazole [PriLOSEC] 40 mg PO DAILY 04/16/20 06/14/20 History Paliperidone IM [Invega Sustenna] 156 mg IM Q28D 04/16/20 06/14/20 History Venlafaxine HCl [Effexor XR] 75 mg PO DAILY 06/14/20 06/14/20 History hydrOXYzine pamoate [hydrOXYzine 50 mg PO HS PRN 06/14/20 06/14/20 History PAMOATE] Allergies Allergy/AdvReac Type Severity Reaction Status Date / Time morphine Allergy Anaphylaxis Verified 06/14/20 17:36 Penicillins Allergy Swelling Verified 06/14/20 17:36 Influenza Virus Vaccines AdvReac Unknown Verified 06/14/20 17:36 pneumococcal vaccine AdvReac Unknown Verified 06/14/20 17:36 Physical Exam Vitals: Vital Signs Temp Pulse Pulse Resp BP BP Pulse Ox 06/15/20 03:25 74 18 06/15/20 03:00 97.6 F 74 18 151/89 100 06/14/20 21:00 97.8 F 71 18 102/64 100 06/14/20 20:34 72 06/14/20 20:24 72 06/14/20 17:57 151/89 06/14/20 17:56 97.8 F 65 18 100 06/14/20 17:14 72 18 128/62 06/14/20 16:33 98.2 F 68 18 122/62 99 06/14/20 15:32 67 16 107/65 98 06/14/20 14:30 75 06/14/20 14:14 78 06/14/20 14:06 67 20 139/92 97 06/14/20 13:44 75 06/14/20 13:43 155/89 06/14/20 13:39 99 F 80 20 99 Intake and Output 06/14/20 06/15/20 06/15/20 23:59 06:59 14:59 Intake Total Balance Intake: Amount of Fluid Infused ( ml) Other: Voiding Method # Voids Weight Results 06/15/20 11:11 06/15/20 11:11 Cardiac Enzymes 06/14/20 06/14/20 06/14/20 Range/Units 13:59 13:59 18:58 AST 34 (17-59) U/L Troponin I <0.012 <0.012 (0.000-0.034) ng/mL 06/14/20 Range/Units 21:34 AST (17-59) U/L Troponin I <0.012 (0.000-0.034) ng/mL Coagulation 06/14/20 Range/Units 13:59 PT 11.7 (9.0-12.0) sec APTT 25.9 (22.0-30.0) sec CBC 06/14/20 Range/Units 13:59 WBC 5.1 (3.8-10.6) k/uL RBC 5.23 (4.30-5.90) m/uL Hgb 15.8 (13.0-17.5) gm/dL Hct 50.4 (39.0-53.0) % Plt Count 65 L D (150-450) k/uL Comprehensive Metabolic Panel 06/14/20 Range/Units 13:59 Sodium 134 L (137-145) mmol/L Potassium 4.4 (3.5-5.1) mmol/L Chloride 104 (98-107) mmol/L Carbon Dioxide 26 (22-30) mmol/L BUN 12 (9-20) mg/dL Creatinine 1.30 H (0.66-1.25) mg/dL Glucose 101 H (74-99) mg/dL Calcium 9.3 (8.4-10.2) mg/dL AST 34 (17-59) U/L ALT 16 (4-49) U/L Alkaline Phosphatase 71 (38-126) U/L Total Protein 7.3 (6.3-8.2) g/dL Albumin 4.1 (3.5-5.0) g/dL Current Medications Generic Name Dose Route Start Last Admin Trade Name Freq PRN Reason Stop Dose Admin Albuterol/Ipratropium 3 ml 06/14/20 16:49 Ipratropium-Albuterol 3 Ml Neb INHALATION RT-Q4H PRN Shortness Of Breath Or Wheezing Albuterol/Ipratropium 3 ml 06/14/20 20:00 06/15/20 08:25 Ipratropium-Albuterol 3 Ml Neb INHALATION 3 ml RT-QID RADHA Administration Aspirin 81 mg 06/15/20 09:00 Aspirin 81 Mg PO DAILY RADHA Atorvastatin Calcium 10 mg 06/14/20 21:00 06/14/20 21:54 Atorvastatin 10 Mg Tab PO 10 mg HS RADHA Administration Azithromycin 500 mg 06/15/20 09:00 Azithromycin 500 Mg Tab PO DAILY RADHA Carbidopa/Levodopa 1 each 06/14/20 22:00 06/14/20 21:54 Carbidopa-Levodopa 10-100 Mg 1 Each Tab PO 1 each TID RADHA Administration Clopidogrel Bisulfate 75 mg 06/15/20 09:00 Clopidogrel 75 Mg Tab PO DAILY RADHA Divalproex Sodium 500 mg 06/14/20 21:00 06/14/20 21:54 Divalproex 500 Mg Tablet.Dr PO 500 mg HS RADHA Administration Hydromorphone HCl 0.5 mg 06/14/20 17:11 06/14/20 23:19 Hydromorphone 0.5 Mg/0.5 Ml Syringe IVP 0.5 mg ONCE PRN Administration Pain Levothyroxine Sodium 75 mcg 06/15/20 06:30 06/15/20 06:44 Levothyroxine 75 Mcg Tab PO 75 mcg DAILY@0630 RADHA Administration Lisinopril 5 mg 06/15/20 09:00 Lisinopril 5 Mg Tab PO DAILY RADHA Metoprolol Tartrate 12.5 mg 06/14/20 21:00 06/14/20 21:54 Metoprolol Tartrate 12.5 Mg Tab PO 12.5 mg BID RADHA Administration Naloxone HCl 0.2 mg 06/14/20 16:49 Naloxone 0.4 Mg/Ml 1 Ml Vial IV Q2M PRN Opioid Reversal Pantoprazole Sodium 40 mg 06/15/20 07:30 06/15/20 06:44 Pantoprazole 40 Mg Tablet PO 40 mg [id number] RADHA Administration Prednisone 40 mg 06/15/20 09:00 Prednisone 20 Mg Tab PO DAILY RADHA Venlafaxine HCl 75 mg 06/15/20 09:00 Venlafaxine Hcl Er 75 Mg Cap PO DAILY RADHA Intake and Output 06/14/20 06/15/20 06/15/20 23:59 06:59 14:59 Intake Total Balance Intake: Amount of Fluid Infused ( ml) Other: Voiding Method # Voids Weight 06/14/20 13:59 06/14/20 13:59
[2020-06-15] MEDS ORDERED: HYDROcodone/APAP 5-325MG 1 EACH TAB PO PRN (16:39)
[2020-06-15] MEDS ORDERED: HYDROmorphone 0.5 MG/0.5 ML SYRINGE IVP STA (16:40)
[2020-06-15] MEDS: DIVALPROEX 500 MG TABLET.DR PO SCH (21:56)
[2020-06-15] MEDS: ATORVASTATIN 10 MG TAB PO SCH (21:56)
--- NOTE | 2020-06-16 01:30 | P.PN ---
Subjective Progress Note Date: 06/15/20 Principal diagnosis: Atypical chest pain Acute COPD exacerbation Patient is a 70-year-old male with a known history of chronic CHF with systolic dysfunction ejection fraction 20-20%, coronary artery disease status post CABG, cardiac catheterization stent placement, hypertension, hyperlipidemia, hypothyroidism and COPD and currently everyday smoker, anxiety depression and schizoaffective disorder and other multiple medical problems and seizure disorder presents to ER with complaints of shortness of breath and cough with leave to whitish sputum production which is getting worse for the past 1 week. Patient is also complaining of chest pain mainly mid retrosternal without any radiation. Patient was having cough and reported pain between his shoulder blades as well. Denied any fever or chills. No nausea vomiting or abdominal pain or diarrhea. Patient also felt some dizzy and lightheaded. No recent illnesses or sick contacts. Patient does have elevated d-dimer level and up to 11. CT angiogram showed no evidence of pulmonary embolism. Laboratory data reviewed (3 negative and a proBNP 644 Platelet count is 65. Platelet counts during previous admission was was around 100 EKG showed normal sinus rhythm 06/15/2020 Patient is currently lying in the bed comfortably. Still having exertional dyspnea and expiratory wheezing noted on examination. Bilateral air entry is improving. No complaints of chest pain today. Currently being continued on steroids and breathing treatments. Cardiology has seen the patient and recommended nuclear stress test. Likely to be done tomorrow morning. No fever no chills. Cough is improving. No sputum production today. No nausea vomiting or abdominal pain or diarrhea. Patient wishes to be discharged home soon. Current medications reviewed. Objective - Vital Signs Vital signs: Vital Signs Temp 97.7 F 06/15/20 15:32 Pulse 70 06/15/20 17:21 Resp 18 06/15/20 15:32 BP 93/57 06/15/20 15:32 Pulse Ox 97 06/15/20 15:32 Intake & Output 06/15/20 06/15/20 06/16/20 06:59 18:59 06:59 Other: Voiding Method Toilet # Voids 1 - Exam PHYSICAL EXAMINATION: Patient is lying in the bed comfortably, no acute distress, awake alert and oriented.. HEENT: Normocephalic. Neck is supple. Pupils reactive. Nostrils clear. Oral cavity is moist. Ears reveal no drainage. Neck reveals no JVD, carotid bruits, or thyromegaly. CHEST EXAMINATION: Trachea is central. Symmetrical expansion. Bilateral expiratory wheezing and scattered rhonchi. CARDIAC: Normal S1, S2 with no gallops. No murmurs ABDOMEN: Soft. Bowel sounds normal. No organomegaly. No abdominal bruits. Extremities: reveal no edema. No clubbing or cyanosis Neurologically awake, alert, oriented x3 with well-coordinated movements. No focal deficits noted Skin: No rash or skin lesions. Psychiatric: Coperative. Denied any Susa radiation. Musculoskeletal: No joint swelling or deformity. Normal range of motion. - Labs CBC & Chem 7: 06/15/20 11:11 06/15/20 11:11 Labs: Abnormal Lab Results - Last 24 Hours (Table) 06/15/20 06/15/20 Range/Units 11:11 11:11 MCHC 30.5 L (31.0-37.0) g/dL RDW 16.1 H (11.5-15.5) % Plt Count 78 L (150-450) k/uL Sodium 133 L (137-145) mmol/L Glucose 126 H (74-99) mg/dL Assessment and Plan Assessment: -Shortness of breath and cough secondary to Acute COPD exacerbation -Atypical chest pain. Ruled out ACS. -Thrombocytopenia. Exact etiology unknown at this time. Liver enzymes are not elevated. 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 Serial troponin 3 negative. BNP is not elevated. Cardiology was consulted for evolution of chest pain.Recommended nuclear stress test to be done tomorrow. Continue with home medications and follow up closely. Monitor platelet count. Further recommendations based on the clinical course. Smoking cessation has been counseled extensively. Time with Patient: Greater than 30
[2020-06-16] MEDS: PANTOPRAZOLE 40 MG TABLET PO SCH (06:36)
[2020-06-16] MEDS: LEVOTHYROXINE 75 MCG TAB PO SCH (06:36)
[2020-06-16] MEDS ORDERED: AMINOPHYLLINE 500 MG/20 ML VIAL IV PRN (07:00)
[2020-06-16] MEDS ORDERED: REGADENOSON 0.4 MG/5 ML SYRINGE IV ONE (07:00)
[2020-06-16] MEDS ORDERED: CAFFEINE CITRATE 60 MG/3 ML VIAL IV PRN (07:00)
[2020-06-16 07:01] LABS: Basophils % (A) 0 %; Eosinophils % (A) 0 %; HCT 45.1 % (39.0-53.0); HGB 14.3 gm/dL (13.0-17.5); Lymphocytes # (A) 1.8 k/uL (1.0-4.8); Lymphocytes % (A) 19 %; MCH 30.7 pg (25.0-35.0); MCHC 31.7 g/dL (31.0-37.0); MCV 96.6 fL (80.0-100.0); Mean Platelet Volume 9.2; Monocytes # (A) 0.4 k/uL (0-1.0); Monocytes % (A) 4 %; Neutrophils # (A) 7.4 k/uL (1.3-7.7); Neutrophils % (A) 76 %; RBC 4.67 m/uL (4.30-5.90); RDW 15.6 % (11.5-15.5); WBC 9.7 k/uL (3.8-10.6)
[2020-06-16 07:06] LABS: Platelet Count 88 k/uL (150-450)
[2020-06-16 07:20] LABS: Calcium 8.4 mg/dL (8.4-10.2); Potassium 4.4 mmol/L (3.5-5.1)
[2020-06-16] MEDS: ASPIRIN 81 MG PO SCH (08:03)
[2020-06-16] MEDS: predniSONE 20 MG TAB PO SCH (08:03)
[2020-06-16] MEDS: lisinopriL 5 MG TAB PO SCH (08:03)
[2020-06-16] MEDS: CLOPIDOGREL 75 MG TAB PO SCH (08:04)
[2020-06-16] MEDS: CARBIDOPA-LEVODOPA 10-100 MG 1 EACH TAB PO SCH (08:04)
[2020-06-16] MEDS: AZITHROMYCIN 500 MG TAB PO SCH (08:04)
[2020-06-16] MEDS: VENLAFAXINE HCL ER 75 MG CAP PO SCH (08:04)
[2020-06-16] MEDS: METOPROLOL TARTRATE 12.5 MG TAB PO SCH (08:04)
[2020-06-16 08:23] VITALS: RESP 16; TEMP 97.4
[2020-06-16] MEDS: IPRATROPIUM-ALBUTEROL 3 ML NEB INHALATION SCH (08:35)
--- NOTE | 2020-06-16 10:51 | NM ---
EXAMINATION TYPE: NM stress lexiscan cardiolite DATE OF EXAM: 06/16/2020 COMPARISON: Prior stress contrast September 03, 2019 HISTORY: Chest pain. History of prior angioplasty and CABG procedure along with hypertension, stroke, hypercholesteremia, tobacco use along with COPD and heart attack. TECHNIQUE: After the intravenous administration of 9.52 mCi Tc 99m Sestamibi - Cardiolite resting SP ECT images acquired 45 minutes post injection. The patient received 0.4mg Lexiscan, 26.2 mCi Tc 99m Sestamibi - Stress images obtained [address] injection FINDINGS: Review of stress and rest SPECT images demonstrates persistent diminished radiotracer uptake involvin g the inferior left ventricular wall extending into the septum and lateral ventricular wall similar t o prior study. Gated analysis shows overall hypokinesis to akinesis of this area with ejection fract ion measured 36%, diminished from the normal range . No convincing evidence of reversible ischemia wh en correlating with prior study on current study. Abnormal end diastolic volume consistent with under lying dilated cardiomyopathy. IMPRESSION: Large old infarct. No convincing evidence of reversible ischemia on today's study..
--- NOTE | 2020-06-16 11:11 | EST ---
EXERCISE STRESS AGE: 70 SEX: M HT: 66" WT: 145 PROTOCOL: Lexiscan Cardiolite Stress Test HEART RATE REST: 61 BLOOD PRESSURE REST: 119/72 MAXIMUM HEART RATE ACHIEVED: 65 MAXIMUM BLOOD PRESSURE: 122/75 85% MPHR: 128 100% MPHR: 151 INDICATIONS: Chest pain. CLINICAL INFORMATION: Baseline EKG revealed normal sinus rhythm with isolated PVCs. There was evidence of Q- waves in leads 2, 3, AVF suggestive of old inferior WI and also mild IVCD. With Lexiscan administration, heart rate remained around 60 beats per minute. Blood pressure changed from 119/72 to 122/75. Patient had transient nausea. EKG remained inconclusive with Q-waves and nonspecific ST changes. By EKG criteria, this is an inconclusive Lexiscan stress test because of resting EKG changes. The nuclear scan results which are more pertinent will be reported by the radiologist. LEIF / JOE: [id number] /
[2020-06-16 17:01] VITALS: BP 117/79; PULSE 81
== END 2020-06-16 17:01 ==
LOC: EC 13:36 → 3NCARDOBS 17:21
PROVIDERS: ADMIT Family Medicine; ATTEND Family Medicine
DX: J44.1 Chronic obstructive pulmonary disease with (acute) exacerbation (principal); R07.89 Other chest pain; D69.6 Thrombocytopenia, unspecified; I50.22 Chronic systolic (congestive) heart failure; I25.5 Ischemic cardiomyopathy; I71.4 Abdominal aortic aneurysm, without rupture; I72.3 Aneurysm of iliac artery; R79.1 Abnormal coagulation profile; E78.5 Hyperlipidemia, unspecified; E03.9 Hypothyroidism, unspecified; F25.9 Schizoaffective disorder, unspecified; F31.9 Bipolar disorder, unspecified; G40.909 Epilepsy, unspecified, not intractable, without status epilepticus; K57.90 Diverticulosis of intestine, part unspecified, without perforation or abscess without bleeding; K22.8 Other specified diseases of esophagus; I49.3 Ventricular premature depolarization; I45.89 Other specified conduction disorders; R94.31 Abnormal electrocardiogram [ECG] [EKG]; R94.39 Abnormal result of other cardiovascular function study; I25.10 Atherosclerotic heart disease of native coronary artery without angina pectoris; I11.0 Hypertensive heart disease with heart failure; F03.90 Unspecified dementia, unspecified severity, without behavioral disturbance, psychotic disturbance, mood disturbance, and anxiety; G62.9 Polyneuropathy, unspecified; G89.29 Other chronic pain; M54.9 Dorsalgia, unspecified; F41.9 Anxiety disorder, unspecified; F17.210 Nicotine dependence, cigarettes, uncomplicated; Z71.6 Tobacco abuse counseling; Z79.82 Long term (current) use of aspirin; Z79.899 Other long term (current) drug therapy; Z79.02 Long term (current) use of antithrombotics/antiplatelets; Z79.890 Hormone replacement therapy; Z88.5 Allergy status to narcotic agent; Z88.0 Allergy status to penicillin; Z88.7 Allergy status to serum and vaccine; Z87.828 Personal history of other (healed) physical injury and trauma; Z95.810 Presence of automatic (implantable) cardiac defibrillator; Z98.890 Other specified postprocedural states; Z95.1 Presence of aortocoronary bypass graft; Z95.5 Presence of coronary angioplasty implant and graft; Z87.19 Personal history of other diseases of the digestive system; Z91.19 Patient's noncompliance with other medical treatment and regimen; Z82.5 Family history of asthma and other chronic lower respiratory diseases; Z81.1 Family history of alcohol abuse and dependence
CPT/HCPCS: 93005 ×2; 96376; 96361; 96374; 96375; 99285; 36415; 94640 ×2; 93017; 85379; 83880; 80061; 80053; 80048 ×2; 83690; 83735; 84484; 85025 ×3; 85610; 85730; 71046; 71275; 78452; G0378 ×3; A9500; J1100; J2785; J7512 ×2; J1170; Q9967

== ENCOUNTER 2020-12-11 15:42 | Emergency (ER) | payer MEDICARE, OTHER ==
[2020-12-11 15:47] VITALS: TEMP 97.8
[2020-12-11] MEDS ORDERED: ONDANSETRON 4 MG/2 ML VIAL IVP STA (16:00)
[2020-12-11] MEDS ORDERED: SODIUM CHLORIDE 0.9% 1,000 ML IV STA (16:00)
[2020-12-11] MEDS ORDERED: FAMOTIDINE 20 MG/2 ML VIAL IV STA (16:01)
--- NOTE | 2020-12-11 16:04 | ED ---
General Adult HPI - General Chief complaint: Dizziness Stated complaint: vomiting Time Seen by Provider: 12/11/20 15:53 Source: patient, RN notes reviewed Mode of arrival: ambulatory Limitations: no limitations - History of Present Illness Initial comments: Patient is a pleasant 70-year-old male presenting to the emergency Department with complaints of vomiting and lightheadedness. Patient has been vomiting approximately 3 times daily over the past few weeks. Patient is able to tolerate some fluids however limited solid food. Patient does drink alcohol usually daily. Patient has some mild abdominal discomfort. No back pain. No history of similar symptoms previously. No hematemesis or coffee-ground emesis. Symptoms of lightheadedness do increase with standing position. - Related Data Home Medications Medication Instructions Recorded Confirmed Aspirin EC [Ecotrin Low Dose] 81 mg PO DAILY 09/08/18 12/11/20 Metoprolol Tartrate [Lopressor] 12.5 mg PO BID 09/08/18 12/11/20 Simvastatin [Zocor] 20 mg PO HS 12/18/18 12/11/20 Torsemide [Demadex] 5 mg PO DAILY 12/18/18 12/11/20 Clopidogrel [Plavix] 75 mg PO DAILY 12/30/18 12/11/20 ramipriL [Ramipril] 1.25 mg PO DAILY 03/03/19 12/11/20 Carbidopa-Levodopa 10-100 mg 1 tab PO TID 04/16/20 12/11/20 [Sinemet 10-100 mg] Omeprazole [PriLOSEC] 40 mg PO DAILY 04/16/20 12/11/20 Paliperidone IM [Invega Sustenna] 156 mg IM Q28D 04/16/20 12/11/20 Levothyroxine Sodium 88 mcg PO DAILY 12/11/20 12/11/20 Previous Rx's Medication Instructions Recorded Famotidine [Pepcid] 20 mg PO BID #30 tablet 12/11/20 Ondansetron Odt [Zofran Odt] 4 mg PO Q8HR PRN #10 tab 12/11/20 Allergies Allergy/AdvReac Type Severity Reaction Status Date / Time morphine Allergy Anaphylaxis Verified 12/11/20 16:27 Penicillins Allergy Swelling Verified 12/11/20 16:27 Influenza Virus Vaccines AdvReac Unknown Verified 12/11/20 16:27 pneumococcal vaccine AdvReac Unknown Verified 12/11/20 16:27 Review of Systems ROS Statement: Those systems with pertinent positive or pertinent negative responses have been documented in the HPI. ROS Other: All systems not noted in ROS Statement are negative. Constitutional: Denies: fever Eyes: Denies: eye pain ENT: Denies: ear pain Respiratory: Denies: cough Cardiovascular: Denies: chest pain Endocrine: Reports: fatigue Gastrointestinal: Reports: as per HPI, nausea, vomiting. Denies: diarrhea, constipation, hematemesis Genitourinary: Denies: dysuria Musculoskeletal: Denies: back pain Skin: Denies: rash Neurological: Denies: headache Past Medical History Past Medical History: Coronary Artery Disease (CAD), Heart Failure, Dementia, Hyperlipidemia, Hypertension, Seizure Disorder, Syncope, Thyroid Disorder Additional Past Medical History / Comment(s): Ischemic cardiomyopathy, EF 20- 25%, last seizure about 2 yrs ago, hypothyroid.neuropathy "WHEN HE WORKED HE HAD A CRUSHING INJURY -COLLAPSED LUNGS C/T AND HAS CHRONIC BACK PAIN"" pt states he is schizophrenic/bipolar. History of Any Multi-Drug Resistant Organisms: None Reported Past Surgical History: AICD, Back Surgery, Coronary Bypass/CABG, Heart Catheterization, Heart Catheterization With Stent Additional Past Surgical History / Comment(s): 1995 CABG 4 vessel in [place], has had 2"HEART CATHS/had 2 STENTS after cabg sx.pt stated they were done in [facility]. "sx on tailbone, cortisone injections, devin inguinal hernia repair Past Anesthesia/Blood Transfusion Reactions: No Reported Reaction Date of Last Stent Placement:: 1995 Type of Cardiac Device: AICD Device Placement Date:: 1995 in [facility] Past Psychological History: Anxiety, Depression, Schizoaffective Disorder, Schizophrenia Smoking Status: Current every day smoker Past Alcohol Use History: None Reported Past Drug Use History: None Reported - Past Family History Mother Family Medical History: Respiratory Disorder Additional Family Medical History / Comment(s): Mother had TB Father Additional Family Medical History / Comment(s): Father was an alcoholic. General Exam Limitations: no limitations General appearance: alert, in no apparent distress Head exam: Present: normocephalic Eye exam: Present: normal appearance, PERRL ENT exam: Present: normal oropharynx Neck exam: Present: normal inspection Respiratory exam: Present: normal lung sounds bilaterally Cardiovascular Exam: Present: regular rate, normal rhythm GI/Abdominal exam: Present: soft, normal bowel sounds. Absent: distended, tenderness, guarding, rebound, rigid, pulsatile mass Extremities exam: Present: normal inspection Neurological exam: Present: alert Psychiatric exam: Present: normal affect, normal mood Skin exam: Present: other (Tobacco stained fingers) Course Vital Signs 12/11/20 12/11/20 12/11/20 15:44 16:21 16:38 Temperature 97.8 F Pulse Rate 68 61 Pulse Rate [ 61 Sitting] Pulse Rate [ 66 Standing] Pulse Rate [ 66 Supine] Respiratory 16 18 Rate Blood Pressure 130/77 96/62 Blood Pressure 110/68 [Sitting] Blood Pressure 116/77 [Standing] Blood Pressure 120/68 [Supine] O2 Sat by Pulse 99 100 Oximetry EKG Findings - EKG Comments: EKG Findings:: Normal sinus rhythm with rate 69. [place] 120. History is 4. QT 432. QTC 462. Normal axis. Inferior Q waves. No acute ST change. Medical Decision Making - Medical Decision Making Patient reevaluated and resting comfortably in bed. Following fluids patient is feeling better. Patient is able to get up and and ambulate without symptoms. Patient requests discharge home. Patient was offered admission however refuses. - Lab Data Result diagrams: 12/11/20 16:20 12/11/20 16:20 Lab Results 12/11/20 12/11/20 12/11/20 Range/Units 16:20 16:20 16:20 WBC 4.1 (3.8-10.6) k/uL RBC 4.39 (4.30-5.90) m/uL Hgb 14.0 (13.0-17.5) gm/dL Hct 41.2 (39.0-53.0) % MCV 93.9 (80.0-100.0) fL MCH 31.9 (25.0-35.0) pg MCHC 33.9 (31.0-37.0) g/dL RDW 13.7 (11.5-15.5) % Plt Count 138 L (150-450) k/uL MPV 9.0 Neutrophils % 63 % Lymphocytes % 25 % Monocytes % 8 % Eosinophils % 1 % Basophils % 1 % Neutrophils # 2.6 (1.3-7.7) k/uL Lymphocytes # 1.0 (1.0-4.8) k/uL Monocytes # 0.3 (0-1.0) k/uL Eosinophils # 0.1 (0-0.7) k/uL Basophils # 0.0 (0-0.2) k/uL PT 11.0 (9.0-12.0) sec INR 1.0 (<1.2) APTT 23.7 (22.0-30.0) sec Sodium 138 (137-145) mmol/L Potassium 3.3 L (3.5-5.1) mmol/L Chloride 102 (98-107) mmol/L Carbon Dioxide 27 (22-30) mmol/L Anion Gap 9 mmol/L BUN 13 (9-20) mg/dL Creatinine 1.23 (0.66-1.25) mg/dL Est GFR (CKD-EPI)AfAm 69 (>60 ml/min/1.73 sqM) Est GFR (CKD-EPI)NonAf 60 (>60 ml/min/1.73 sqM) Glucose 94 (74-99) mg/dL Plasma Lactic Acid Rigoberto (0.7-2.0) mmol/L Calcium 9.2 (8.4-10.2) mg/dL Magnesium 1.7 (1.6-2.3) mg/dL Total Bilirubin 0.6 (0.2-1.3) mg/dL AST 25 (17-59) U/L ALT 7 (4-49) U/L Alkaline Phosphatase 98 (38-126) U/L Troponin I (0.000-0.034) ng/mL Total Protein 7.3 (6.3-8.2) g/dL Albumin 4.1 (3.5-5.0) g/dL Amylase 139 H (30-110) U/L Lipase 183 (23-300) U/L 12/11/20 12/11/20 Range/Units 16:20 16:20 WBC (3.8-10.6) k/uL RBC (4.30-5.90) m/uL Hgb (13.0-17.5) gm/dL Hct (39.0-53.0) % MCV (80.0-100.0) fL MCH (25.0-35.0) pg MCHC (31.0-37.0) g/dL RDW (11.5-15.5) % Plt Count (150-450) k/uL MPV Neutrophils % % Lymphocytes % % Monocytes % % Eosinophils % % Basophils % % Neutrophils # (1.3-7.7) k/uL Lymphocytes # (1.0-4.8) k/uL Monocytes # (0-1.0) k/uL Eosinophils # (0-0.7) k/uL Basophils # (0-0.2) k/uL PT (9.0-12.0) sec INR (<1.2) APTT (22.0-30.0) sec Sodium (137-145) mmol/L Potassium (3.5-5.1) mmol/L Chloride (98-107) mmol/L Carbon Dioxide (22-30) mmol/L Anion Gap mmol/L BUN (9-20) mg/dL Creatinine (0.66-1.25) mg/dL Est GFR (CKD-EPI)AfAm (>60 ml/min/1.73 sqM) Est GFR (CKD-EPI)NonAf (>60 ml/min/1.73 sqM) Glucose (74-99) mg/dL Plasma Lactic Acid Rigoberto 1.6 (0.7-2.0) mmol/L Calcium (8.4-10.2) mg/dL Magnesium (1.6-2.3) mg/dL Total Bilirubin (0.2-1.3) mg/dL AST (17-59) U/L ALT (4-49) U/L Alkaline Phosphatase (38-126) U/L Troponin I <0.012 (0.000-0.034) ng/mL Total Protein (6.3-8.2) g/dL Albumin (3.5-5.0) g/dL Amylase (30-110) U/L Lipase (23-300) U/L - Radiology Data Radiology results: image reviewed (Chest x-ray shows no acute process. 1 view abdominal x-ray shows no acute process) Disposition Clinical Impression: Vomiting Disposition: HOME SELF-CARE Condition: Stable Instructions (If sedation given, give patient instructions): Acute Nausea and Vomiting (ED) Additional Instructions: Decrease or discontinue alcohol and smoking. Please follow-up to primary care physician Dr. Alejandro in the next day or 2 for recheck. Prescriptions sent to pharmacy. Return for increase vomiting, not tolerating fluids, pain, lightheadedness, passing out, worsening symptoms or other concerns. Prescriptions: Famotidine [Pepcid] 20 mg PO BID #30 tablet Ondansetron Odt [Zofran Odt] 4 mg PO Q8HR PRN #10 tab PRN Reason: Nausea Is patient prescribed a controlled substance at d/c from ED?: No Referrals: Raffaele Verdin MD [Primary Care Provider] - 1-2 days Time of Disposition: 18:10
[2020-12-11 16:33] LABS: Basophils % (A) 1 %; Eosinophils # (A) 0.1 k/uL (0-0.7); Eosinophils % (A) 1 %; HCT 41.2 % (39.0-53.0); Lymphocytes % (A) 25 %; MCH 31.9 pg (25.0-35.0); MCHC 33.9 g/dL (31.0-37.0); MCV 93.9 fL (80.0-100.0); Monocytes # (A) 0.3 k/uL (0-1.0); Monocytes % (A) 8 %; Neutrophils # (A) 2.6 k/uL (1.3-7.7); Neutrophils % (A) 63 %; Platelet Count 138 k/uL (150-450); RBC 4.39 m/uL (4.30-5.90); RDW 13.7 % (11.5-15.5); WBC 4.1 k/uL (3.8-10.6)
[2020-12-11 16:43] LABS: Albumin 4.1 g/dL (3.5-5.0); Calcium 9.2 mg/dL (8.4-10.2); Magnesium 1.7 mg/dL (1.6-2.3); Potassium 3.3 mmol/L (3.5-5.1); Total Bilirubin 0.6 mg/dL (0.2-1.3); Total Protein 7.3 g/dL (6.3-8.2)
[2020-12-11 16:50] LABS: Partial Thromboplastin Time 23.7 sec (22.0-30.0)
--- NOTE | 2020-12-11 18:05 | XR ---
EXAMINATION: XR chest 2V DATE AND TIME: 12/11/2020 5:12 PM CLINICAL INDICATION: PHH; Weakness TECHNIQUE: AP and lateral views COMPARISON: 06/14/2020 FINDINGS: Cardiac pacemaker, sternal sutures and mediastinal clips and EKG leads noted. The lungs are clear. The pleural spaces are negative. The cardiac silhouette is not enlarged. The remainder of the mediastinal silhouette is unremarkable. The skeletal structures and soft tissues are negative for acute findings. IMPRESSION: No acute radiographic process.
--- NOTE | 2020-12-11 18:07 | XR ---
EXAMINATION TYPE: XR abdomen 2V DATE OF EXAM: 12/11/2020 5:15 PM CLINICAL HISTORY: Pain, vomiting TECHNIQUE: 2 supine abd/pelv views obtained. COMPARISON: 12/18/2018 FINDINGS: Scattered gas is seen in non-distended small bowel loops. Gas and fecal material is seen in non-diste nded colon. There is no visceromegaly. The lung bases are clear and the osseous structures are intact. IMPRESSION: No acute radiographic process.
[2020-12-11 18:45] VITALS: BP 125/65; PULSE 60; RESP 16
== END 2020-12-11 18:51 | disposition home or self-care (01) ==
LOC: EC 15:42
DX: R11.10 Vomiting, unspecified (principal); R42 Dizziness and giddiness; I25.10 Atherosclerotic heart disease of native coronary artery without angina pectoris; I11.0 Hypertensive heart disease with heart failure; I50.9 Heart failure, unspecified; I25.5 Ischemic cardiomyopathy; F25.9 Schizoaffective disorder, unspecified; F17.200 Nicotine dependence, unspecified, uncomplicated; E03.9 Hypothyroidism, unspecified; Z95.1 Presence of aortocoronary bypass graft; Z95.810 Presence of automatic (implantable) cardiac defibrillator
CPT/HCPCS: 93005; 80053; 82150; 83605; 83690; 83735; 84484; 85025; 85610; 85730; 71046; 74018; 99284; 96374; 96375; 96361 ×2; J2405

== ENCOUNTER 2020-12-21 14:25 | Emergency (ER) | payer MEDICARE, OTHER ==
[2020-12-21 14:35] VITALS: BP 140/97; PULSE 78; RESP 18; TEMP 98.6
[2020-12-21] MEDS ORDERED: HYDROmorphone 0.5 MG/0.5 ML SYRINGE IM STA (15:07)
--- NOTE | 2020-12-21 15:23 | XR ---
Right shoulder. HISTORY: Pain without trauma. COMPARISON: None. TECHNIQUE: 3 views the right shoulder were obtained. There is no fracture, dislocation, intraosseous or intra-articular abnormality. There is no radiopaqu e foreign body or abnormal soft tissue calcification. IMPRESSION: No significant abnormality seen.
--- NOTE | 2020-12-21 15:46 | ED ---
General Adult HPI - General Chief complaint: Extremity Problem,Nontraumatic Stated complaint: shoulder pain R Time Seen by Provider: 12/21/20 14:35 Source: patient, EMS Mode of arrival: EMS Limitations: no limitations - History of Present Illness Initial comments: 70-year-old male with a complicated past medical history including heart failure, CAD, hyperlipidemia, hypertension presents to the emergency department for chief of right shoulder pain. Patient states she woke up with this today. He does not remember injuring it. Patient states movement worsens his pain. He is found holding his arm for comfort. Patient denies any chest pain or shortness of breath.Patient has no other complaints at this time including shortness of breath, chest pain, abdominal pain, nausea or vomiting, headache, or visual changes. - Related Data Home Medications Medication Instructions Recorded Confirmed Aspirin EC [Ecotrin Low Dose] 81 mg PO DAILY 09/08/18 12/11/20 Metoprolol Tartrate [Lopressor] 12.5 mg PO BID 09/08/18 12/11/20 Simvastatin [Zocor] 20 mg PO HS 12/18/18 12/11/20 Torsemide [Demadex] 5 mg PO DAILY 12/18/18 12/11/20 Clopidogrel [Plavix] 75 mg PO DAILY 12/30/18 12/11/20 ramipriL [Ramipril] 1.25 mg PO DAILY 03/03/19 12/11/20 Carbidopa-Levodopa 10-100 mg 1 tab PO TID 04/16/20 12/11/20 [Sinemet 10-100 mg] Omeprazole [PriLOSEC] 40 mg PO DAILY 04/16/20 12/11/20 Paliperidone IM [Invega Sustenna] 156 mg IM Q28D 04/16/20 12/11/20 Levothyroxine Sodium 88 mcg PO DAILY 12/11/20 12/11/20 Previous Rx's Medication Instructions Recorded Famotidine [Pepcid] 20 mg PO BID #30 tablet 12/11/20 Ondansetron Odt [Zofran Odt] 4 mg PO Q8HR PRN #10 tab 12/11/20 Allergies Allergy/AdvReac Type Severity Reaction Status Date / Time morphine Allergy Anaphylaxis Verified 12/21/20 14:34 Penicillins Allergy Swelling Verified 12/21/20 14:34 Influenza Virus Vaccines AdvReac Unknown Verified 12/21/20 14:34 pneumococcal vaccine AdvReac Unknown Verified 12/21/20 14:34 Review of Systems ROS Statement: Those systems with pertinent positive or pertinent negative responses have been documented in the HPI. ROS Other: All systems not noted in ROS Statement are negative. Past Medical History Past Medical History: Coronary Artery Disease (CAD), Heart Failure, Dementia, Hyperlipidemia, Hypertension, Seizure Disorder, Syncope, Thyroid Disorder Additional Past Medical History / Comment(s): Ischemic cardiomyopathy, EF 20- 25%, last seizure about 2 yrs ago, hypothyroid.neuropathy "WHEN HE WORKED HE HAD A CRUSHING INJURY -COLLAPSED LUNGS C/T AND HAS CHRONIC BACK PAIN"" pt states he is schizophrenic/bipolar. History of Any Multi-Drug Resistant Organisms: None Reported Past Surgical History: AICD, Back Surgery, Coronary Bypass/CABG, Heart Catheterization, Heart Catheterization With Stent Additional Past Surgical History / Comment(s): 1995 CABG 4 vessel in [place], has had 2"HEART CATHS/had 2 STENTS after cabg sx.pt stated they were done in [facility]. "sx on tailbone, cortisone injections, devin inguinal hernia repair Past Anesthesia/Blood Transfusion Reactions: No Reported Reaction Date of Last Stent Placement:: 1995 Type of Cardiac Device: AICD Device Placement Date:: 1995 in [facility] Past Psychological History: Anxiety, Depression, Schizoaffective Disorder, Schiz ophrenia Smoking Status: Current every day smoker Past Alcohol Use History: Daily Past Drug Use History: None Reported - Past Family History Mother Family Medical History: Respiratory Disorder Additional Family Medical History / Comment(s): Mother had TB Father Additional Family Medical History / Comment(s): Father was an alcoholic. General Exam Limitations: no limitations General appearance: alert, in no apparent distress Head exam: Present: atraumatic, normocephalic, normal inspection Eye exam: Present: normal appearance, PERRL, EOMI. Absent: scleral icterus, conjunctival injection, periorbital swelling ENT exam: Present: normal exam, mucous membranes moist Neck exam: Present: normal inspection. Absent: tenderness, meningismus, lymphadenopathy Respiratory exam: Present: normal lung sounds bilaterally. Absent: respiratory distress, wheezes, rales, rhonchi, stridor Cardiovascular Exam: Present: regular rate, normal rhythm, normal heart sounds. Absent: systolic murmur, diastolic murmur, rubs, gallop, clicks GI/Abdominal exam: Present: soft, normal bowel sounds. Absent: distended, tenderness, guarding, rebound, rigid Extremities exam: Present: normal capillary refill (cap refill less than 2 seconds in the right upper extremity. Radial pulse 2+.), other (Patient found holding the right arm with his left hand for comfort.). Absent: full ROM (Patient has 45 abduction and flexion of the right shoulder), tenderness (No tenderness of the shoulder.), pedal edema, joint swelling (No edema of the shoulder.), calf tenderness Course Vital Signs 12/21/20 14:27 Temperature 98.6 F Pulse Rate 78 Respiratory 18 Rate Blood Pressure 140/97 O2 Sat by Pulse 99 Oximetry Medical Decision Making - Medical Decision Making Vitals are stable. Patient presents for shoulder pain. Pain is reproducible on exam. Patient has very limited range of motion secondary to pain. Symptoms are consistent with musculoskeletal pain. X-ray shows no significant abnormality. Patient was given pain medication which did improve. At this time recommend patient take Tylenol for pain. We can try Tylenol 3 for breakthrough pain.) He follow-up with his doctor in orthopedics. He will return here for any worsening symptoms. Patient also evaluated by Dr Kidd. Disposition Clinical Impression: Shoulder pain, right Disposition: HOME SELF-CARE Condition: Good Instructions (If sedation given, give patient instructions): Shoulder Pain (ED) Additional Instructions: Please take Tylenol for pain. If pain is severe take Tylenol 3. Follow up with your doctor or orthopedics. Return to the emergency room for any worsening symptoms. Is patient prescribed a controlled substance at d/c from ED?: No Referrals: Raffaele Verdin MD [Primary Care Provider] - 1-2 days Jose Antonio Hatch MD [STAFF PHYSICIAN] - 1-2 days Time of Disposition: 15:44
[2020-12-21] MEDS ORDERED: ACET/COD 300 MG/30 MG STARTER PACK 6 TAB BTL PO STA (16:02)
== END 2020-12-21 16:10 | disposition home or self-care (01) ==
LOC: EC 14:25
DX: M25.511 Pain in right shoulder (principal); I11.0 Hypertensive heart disease with heart failure; I50.9 Heart failure, unspecified; I25.10 Atherosclerotic heart disease of native coronary artery without angina pectoris; F03.90 Unspecified dementia, unspecified severity, without behavioral disturbance, psychotic disturbance, mood disturbance, and anxiety; E78.5 Hyperlipidemia, unspecified; G40.909 Epilepsy, unspecified, not intractable, without status epilepticus; I25.5 Ischemic cardiomyopathy; E03.9 Hypothyroidism, unspecified; F25.9 Schizoaffective disorder, unspecified; F41.9 Anxiety disorder, unspecified; F32.9 Major depressive disorder, single episode, unspecified; F17.200 Nicotine dependence, unspecified, uncomplicated; Z79.82 Long term (current) use of aspirin; Z79.890 Hormone replacement therapy; Z79.02 Long term (current) use of antithrombotics/antiplatelets; Z88.0 Allergy status to penicillin; Z95.1 Presence of aortocoronary bypass graft; Z95.810 Presence of automatic (implantable) cardiac defibrillator
CPT/HCPCS: 73030; 99283; 96372; J1170

== ENCOUNTER → 2021-07-01 | Outpatient (CLI) | payer MEDICARE, OTHER ==
--- NOTE | 2021-07-01 13:42 | CTL ---
EXAMINATION TYPE: CT Low Dose Lung DATE OF EXAM ORDERED: 07/01/2021 HISTORY: Long-term tobacco use. Lung cancer screening CT DLP: 55.[address] CTDI: 1.70 mGy Automated exposure control for dose reduction was used. SCREENING VISIT: Baseline COMPARISON: CTA chest June 14, 2020 TECHNIQUE: Low dose computed tomography scan was performed through the chest at 1 mm thick sections a nd reconstructed images in multiple planes at 1 mm and [address] DIAGNOSTIC QUALITY: Limited, but interpretable FINDINGS: LUNG NODULES: Present, detailed below: Few small calcified nodules are granulomas in the right upper lobe, for reference axial images 30 and 32 and 65 all measuring under 5 mm in size. Single 3 mm calcified nodule or benign granuloma left mi d lung axial image 126. There is 5.6 x 3.2 mm spiculated nodule or nodular scarring in the left mid lung axial image 116 LUNGS: COPD: Severity: Mild Fibrosis: Severity: None Lymph nodes: No greater than 1 cm Other findings: None RIGHT PLEURAL SPACE: Effusion: None Calcification: None Thickening: None Pneumothorax: None LEFT PLEURAL SPACE: Effusion: None Calcification: None Thickening: None Pneumothorax: None HEART: Heart Size: Normal Coronary calcification: Post-CABG changes Pericardial effusion: None OTHER FINDINGS: Upper abdomen: Scattered calcifications throughout the spleen. Some calcifications in the left hepati c dome. Bony thorax: None Supraclavicular region: None . Other: [employer]ile[employer] pacemaker/defibrillator. Additional surgical clip along the anterior pericardium. IMPRESSION: Single 6 x 3 mm noncalcified left mid lung spiculated nodule or nodular scarring. Evidenc e of old granulomatous disease. CT LUNG RAD AND CT CHEST RECOMMENDATION: Lung-Rad 2 Benign Appearance or Behavior: Continue annual sc reening with LDCT in 12 months. S Modifier (other clinically significant findings): None
== END ==
LOC: RADCTMAIN 11:44
PROVIDERS: ATTEND Family Medicine
DX: Z12.2 Encounter for screening for malignant neoplasm of respiratory organs (principal); J98.4 Other disorders of lung; Z87.891 Personal history of nicotine dependence
CPT/HCPCS: 71271

== ENCOUNTER 2021-08-15 23:30 | Inpatient (IN) | payer MEDICARE, OTHER ==
--- NOTE | 2021-08-16 01:01 | XR ---
EXAMINATION TYPE: XR chest 1V portable DATE OF EXAM: 08/16/2021 COMPARISON: 12/11/2020 HISTORY: Short of breath TECHNIQUE: Single view FINDINGS: Heart is enlarged. There is no postfailure. There is coarsening of the interstitial marking s. There is right axillary pacemaker. There are sternal wires. There are chest leads. IMPRESSION: Cardiomegaly. No obvious heart failure. Mild pulmonary fibrosis. Inspiration decreased co mpared to old exam.
[2021-08-16 01:02] LABS: Basophils % (A) 0 %; Eosinophils # (A) 0.1 k/uL (0-0.7); Eosinophils % (A) 2 %; HCT 34.1 % (39.0-53.0); HGB 11.1 gm/dL (13.0-17.5); Lymphocytes # (A) 2.2 k/uL (1.0-4.8); Lymphocytes % (A) 36 %; MCH 28.8 pg (25.0-35.0); MCHC 32.6 g/dL (31.0-37.0); MCV 88.3 fL (80.0-100.0); Mean Platelet Volume 9.1; Monocytes # (A) 0.6 k/uL (0-1.0); Monocytes % (A) 9 %; Neutrophils # (A) 3.1 k/uL (1.3-7.7); Neutrophils % (A) 49 %; Platelet Count 216 k/uL (150-450); RBC 3.86 m/uL (4.30-5.90); RDW 14.9 % (11.5-15.5); WBC 6.2 k/uL (3.8-10.6)
[2021-08-16 01:08] LABS: ALT 7 U/L (4-49); AST 21 U/L (17-59); African American GFR (CKD) >90 (>60 ml/min/1.73 sqM); Albumin 3.4 g/dL (3.5-5.0); Alkaline Phosphatase 69 U/L (38-126); Anion Gap 13 mmol/L; Blood Urea Nitrogen 11 mg/dL (9-20); Calcium 8.2 mg/dL (8.4-10.2); Carbon Dioxide 19 mmol/L (22-30); Chloride 100 mmol/L (98-107); Glucose 103 mg/dL (74-99); Magnesium 1.8 mg/dL (1.6-2.3); Non-African American GFR(CKD) 84 (>60 ml/min/1.73 sqM); Potassium 3.8 mmol/L (3.5-5.1); Sodium 132 mmol/L (137-145); Total Bilirubin 0.4 mg/dL (0.2-1.3); Total Protein 6.7 g/dL (6.3-8.2)
[2021-08-16 01:11] LABS: Partial Thromboplastin Time 26.5 sec (22.0-30.0); Prothrombin Time 10.9 sec (9.0-12.0)
[2021-08-16 01:34] LABS: Appearance,Urine Clear (Clear); Bilirubin,Urine Negative (Negative); Blood,Urine Negative (Negative); Color,Urine Light Yellow; Glucose,Urine (UA) Negative (Negative); Ketones,Urine Negative (Negative); Leukocyte Esterase,Urine Negative (Negative); Nitrite,Urine Negative (Negative); Protein,Urine Negative (Negative); Specific Gravity,Urine 1.003 (1.001-1.035); Urobilinogen,Urine <2.0 mg/dL (<2.0)
[2021-08-16] MEDS ORDERED: HYDROmorphone 0.5 MG/0.5 ML SYRINGE IVP STA (01:44)
--- NOTE | 2021-08-16 02:58 | CT ---
EXAMINATION TYPE: CT chest angio for PE DATE OF EXAM: 08/16/2021 COMPARISON: 06/14/2020 HISTORY: SOB CT DLP: 296.5 mGycm Automated exposure control for dose reduction was used. CONTRAST: Performed with IV Contrast, patient injected with 85 mL of Isovue 370. There are Three-D postprocessed images. There is some subpleural reticular infiltrates in the periphery of both lower lobes. There is subsegm ental atelectasis right posterior lung base. There is no pleural effusion. Heart is slightly enlarged . There is no pericardial effusion. There are no hilar masses. There is no mediastinal adenopathy. Th oracic ureter is atheromatous. There is no aneurysm. The ascending aorta measures 3.7 cm. There is normal contrast opacification of the pulmonary arteries. There are no filling defects. The thoracic spine is intact. There is no compression fracture. Sternum is intact. There are sternal wires. Upper abdominal soft tissues appear intact. IMPRESSION: Cardiomegaly. No evidence of pulmonary embolism. Fibrotic changes and subsegmental atelectasis at the lung bases. This appears slightly increased compared to old exam. No suspicious pulmonary mass.
[2021-08-16] MEDS ORDERED: methylPREDNISolone SOD SUCCI 125 MG/2 ML VIAL IV STA (03:01)
[2021-08-16] MEDS ORDERED: SODIUM CHLORIDE 0.9% 500 ML 500 ML IV STA (03:01)
[2021-08-16] MEDS ORDERED: ONDANSETRON ODT 4 MG TAB PO PRN (04:19)
--- NOTE | 2021-08-16 08:20 | ED ---
SOB HPI - General Chief Complaint: Shortness of Breath Stated Complaint: Difficulty Breathing Time Seen by Provider: 08/15/21 23:42 Source: EMS Mode of arrival: EMS Limitations: no limitations - History of Present Illness Initial Comments: This patient is a 71-year-old man who arrives with complaint of cough and shortness of breath. Patient states that his breathing became progressively worse over the past couple or 3 days. He had not noted any fever. Patient has had some bilateral "lung pains" mainly associated with the cough. He has had some occasional white to yellow sputum. MD Complaint: shortness of breath, cough Onset/Timin -: days(s) Severity scale (1-10): 0 Consistency: constant Improves With: nothing Worsens With: nothing Known History Of: COPD Associated Symptoms: denies other symptoms, cough Treatments Prior to Arrival: NIPPV - Related Data Home Medications Medication Instructions Recorded Confirmed Aspirin EC [Ecotrin Low Dose] 81 mg PO DAILY 09/08/18 08/16/21 Metoprolol Tartrate [Lopressor] 12.5 mg PO BID 09/08/18 08/16/21 Simvastatin [Zocor] 20 mg PO HS 12/18/18 08/16/21 Torsemide [Demadex] 5 mg PO DAILY 12/18/18 08/16/21 Clopidogrel [Plavix] 75 mg PO DAILY 12/30/18 08/16/21 Omeprazole [PriLOSEC] 40 mg PO DAILY 04/16/20 08/16/21 Ergocalciferol [Vitamin D2 (1250 1,250 mcg PO TU 08/16/21 08/16/21 Mcg = 49236 Iu)] Ferrous Sulfate [Feosol] 325 mg PO DAILY 08/16/21 08/16/21 Folic Acid 1 mg PO DAILY 08/16/21 08/16/21 Levothyroxine Sodium [Synthroid] 100 mcg PO DAILY 08/16/21 08/16/21 Midodrine [ProAmatine] 5 mg PO AC-TID 08/16/21 08/16/21 Paliperidone Palmitate [Invega 117 mg IM Q28D 08/16/21 08/16/21 Sustenna] Potassium Chloride [Klor-Con 20] 20 meq PO BID 08/16/21 08/16/21 hydrOXYzine HCL [Atarax] 25 mg PO TID PRN 08/16/21 08/16/21 Allergies Allergy/AdvReac Type Severity Reaction Status Date / Time morphine Allergy Anaphylaxis Verified 08/16/21 07:31 Penicillins Allergy Swelling Verified 08/16/21 07:31 Influenza Virus Vaccines AdvReac Unknown Verified 08/16/21 07:31 pneumococcal vaccine AdvReac Unknown Verified 08/16/21 07:31 Review of Systems ROS Statement: Those systems with pertinent positive or pertinent negative responses have been documented in the HPI. ROS Other: All systems not noted in ROS Statement are negative. Constitutional: Denies: fever, chills, weakness Respiratory: Reports: cough, dyspnea. Denies: wheezes, hemoptysis Cardiovascular: Reports: chest pain. Denies: palpitations, edema, syncope Gastrointestinal: Denies: abdominal pain, vomiting, diarrhea Genitourinary: Denies: dysuria, hematuria Musculoskeletal: Denies: back pain Skin: Denies: rash Neurological: Denies: headache, weakness, numbness Past Medical History Past Medical History: Coronary Artery Disease (CAD), Heart Failure, Dementia, Hyperlipidemia, Hypertension, Seizure Disorder, Syncope, Thyroid Disorder Additional Past Medical History / Comment(s): Ischemic cardiomyopathy, EF 20- 25%, last seizure about 2 yrs ago, hypothyroid.neuropathy "WHEN HE WORKED HE HAD A CRUSHING INJURY -COLLAPSED LUNGS C/T AND HAS CHRONIC BACK PAIN"" pt states he is schizophrenic/bipolar. History of Any Multi-Drug Resistant Organisms: None Reported Past Surgical History: AICD, Back Surgery, Coronary Bypass/CABG, Heart Catheterization, Heart Catheterization With Stent Additional Past Surgical History / Comment(s): 1995 CABG 4 vessel in [place], has had 2"HEART CATHS/had 2 STENTS after cabg sx.pt stated they were done in [facility]. "sx on tailbone, cortisone injections, devin inguinal hernia repair Past Anesthesia/Blood Transfusion Reactions: No Reported Reaction Date of Last Stent Placement:: 1995 Type of Cardiac Device: AICD Device Placement Date:: [address] [facility] Past Psychological History: Anxiety, Depression, Schizoaffective Disorder, Schizophrenia Smoking Status: Current every day smoker Past Alcohol Use History: Daily Past Drug Use History: None Reported - Past Family History Mother Family Medical History: Respiratory Disorder Additional Family Medical History / Comment(s): Mother had TB Father Additional Family Medical History / Comment(s): Father was an alcoholic. General Exam Limitations: no limitations General appearance: alert, in distress Head exam: Present: atraumatic, normocephalic Eye exam: Present: normal appearance. Absent: scleral icterus, conjunctival injection Neck exam: Present: normal inspection Respiratory exam: Present: respiratory distress, wheezes, accessory muscle use. Absent: rales, rhonchi, stridor, chest wall tenderness, decreased breath sounds Cardiovascular Exam: Present: normal rhythm, tachycardia, normal heart sounds. Absent: systolic murmur, diastolic murmur, rubs, gallop GI/Abdominal exam: Present: soft. Absent: distended, tenderness, guarding, rebound, rigid, mass Extremities exam: Present: normal inspection, normal capillary refill. Absent: pedal edema, calf tenderness Back exam: Present: normal inspection. Absent: CVA tenderness (R), CVA tenderness (L) Neurological exam: Present: alert Skin exam: Present: warm, dry, intact, normal color. Absent: rash Course Vital Signs 08/16/21 08/16/21 08/16/21 00:08 00:15 00:30 Temperature 97.0 F L Pulse Rate 80 74 Respiratory 25 H 25 H 24 Rate Blood Pressure 115/77 122/90 O2 Sat by Pulse 100 100 Oximetry 08/16/21 08/16/21 08/16/21 01:30 02:30 04:30 Temperature Pulse Rate 77 70 Respiratory 20 18 Rate Blood Pressure 119/84 131/78 O2 Sat by Pulse 100 100 99 Oximetry 08/16/21 08/16/21 06:15 08:00 Temperature 97.9 F Pulse Rate 66 Respiratory Rate Blood Pressure 139/78 O2 Sat by Pulse 100 99 Oximetry Medical Decision Making - Lab Data Result diagrams: 08/16/21 00:23 08/16/21 00:23 Lab Results 08/16/21 08/16/21 08/16/21 Range/Units 00:23 00:23 00:23 WBC 6.2 (3.8-10.6) k/uL RBC 3.86 L (4.30-5.90) m/uL Hgb 11.1 L (13.0-17.5) gm/dL Hct 34.1 L (39.0-53.0) % MCV 88.3 (80.0-100.0) fL MCH 28.8 (25.0-35.0) pg MCHC 32.6 (31.0-37.0) g/dL RDW 14.9 (11.5-15.5) % Plt Count 216 (150-450) k/uL MPV 9.1 Neutrophils % 49 % Lymphocytes % 36 % Monocytes % 9 % Eosinophils % 2 % Basophils % 0 % Neutrophils # 3.1 (1.3-7.7) k/uL Lymphocytes # 2.2 (1.0-4.8) k/uL Monocytes # 0.6 (0-1.0) k/uL Eosinophils # 0.1 (0-0.7) k/uL Basophils # 0.0 (0-0.2) k/uL PT 10.9 (9.0-12.0) sec INR 1.0 (<1.2) APTT 26.5 (22.0-30.0) sec D-Dimer 2.54 H (<0.60) mg/L FEU Sodium 132 L (137-145) mmol/L Potassium 3.8 (3.5-5.1) mmol/L Chloride 100 (98-107) mmol/L Carbon Dioxide 19 L (22-30) mmol/L Anion Gap 13 mmol/L BUN 11 (9-20) mg/dL Creatinine 0.92 (0.66-1.25) mg/dL Est GFR (CKD-EPI)AfAm >90 (>60 ml/min/1.73 sqM) Est GFR (CKD-EPI)NonAf 84 (>60 ml/min/1.73 sqM) Glucose 103 H (74-99) mg/dL Lactic Ac Sepsis Rflx Plasma Lactic Acid Rigoberto (0.7-2.0) mmol/L Calcium 8.2 L (8.4-10.2) mg/dL Magnesium 1.8 (1.6-2.3) mg/dL Total Bilirubin 0.4 (0.2-1.3) mg/dL AST 21 (17-59) U/L ALT 7 (4-49) U/L Alkaline Phosphatase 69 (38-126) U/L Troponin I (0.000-0.034) ng/mL NT-Pro-B Natriuret Pep pg/mL Total Protein 6.7 (6.3-8.2) g/dL Albumin 3.4 L (3.5-5.0) g/dL Urine Color Urine Appearance (Clear) Urine pH (5.0-8.0) Ur Specific [place] (1.001-1.035) Urine Protein (Negative) Urine Glucose (UA) (Negative) Urine Ketones (Negative) Urine Blood (Negative) Urine Nitrite (Negative) Urine Bilirubin (Negative) Urine Urobilinogen (<2.0) mg/dL Ur Leukocyte Esterase (Negative) Coronavirus (PCR) (Not Detectd) 08/16/21 08/16/21 08/16/21 Range/Units 00:23 00:23 00:23 WBC (3.8-10.6) k/uL RBC (4.30-5.90) m/uL Hgb (13.0-17.5) gm/dL Hct (39.0-53.0) % MCV (80.0-100.0) fL MCH (25.0-35.0) pg MCHC (31.0-37.0) g/dL RDW (11.5-15.5) % Plt Count (150-450) k/uL MPV Neutrophils % % Lymphocytes % % Monocytes % % Eosinophils % % Basophils % % Neutrophils # (1.3-7.7) k/uL Lymphocytes # (1.0-4.8) k/uL Monocytes # (0-1.0) k/uL Eosinophils # (0-0.7) k/uL Basophils # (0-0.2) k/uL PT (9.0-12.0) sec INR (<1.2) APTT (22.0-30.0) sec D-Dimer (<0.60) mg/L FEU Sodium (137-145) mmol/L Potassium (3.5-5.1) mmol/L Chloride (98-107) mmol/L Carbon Dioxide (22-30) mmol/L Anion Gap mmol/L BUN (9-20) mg/dL Creatinine (0.66-1.25) mg/dL Est GFR (CKD-EPI)AfAm (>60 ml/min/1.73 sqM) Est GFR (CKD-EPI)NonAf (>60 ml/min/1.73 sqM) Glucose (74-99) mg/dL Lactic Ac Sepsis Rflx Plasma Lactic Acid Rigoberto 2.4 H* (0.7-2.0) mmol/L Calcium (8.4-10.2) mg/dL Magnesium (1.6-2.3) mg/dL Total Bilirubin (0.2-1.3) mg/dL AST (17-59) U/L ALT (4-49) U/L Alkaline Phosphatase (38-126) U/L Troponin I <0.012 (0.000-0.034) ng/mL NT-Pro-B Natriuret Pep 538 pg/mL Total Protein (6.3-8.2) g/dL Albumin (3.5-5.0) g/dL Urine Color Urine Appearance (Clear) Urine pH (5.0-8.0) Ur Specific [place] (1.001-1.035) Urine Protein (Negative) Urine Glucose (UA) (Negative) Urine Ketones (Negative) Urine Blood (Negative) Urine Nitrite (Negative) Urine Bilirubin (Negative) Urine Urobilinogen (<2.0) mg/dL Ur Leukocyte Esterase (Negative) Coronavirus (PCR) (Not Detectd) 08/16/21 08/16/21 08/16/21 Range/Units 00:23 00:57 01:28 WBC (3.8-10.6) k/uL RBC (4.30-5.90) m/uL Hgb (13.0-17.5) gm/dL Hct (39.0-53.0) % MCV (80.0-100.0) fL MCH (25.0-35.0) pg MCHC (31.0-37.0) g/dL RDW (11.5-15.5) % Plt Count (150-450) k/uL MPV Neutrophils % % Lymphocytes % % Monocytes % % Eosinophils % % Basophils % % Neutrophils # (1.3-7.7) k/uL Lymphocytes # (1.0-4.8) k/uL Monocytes # (0-1.0) k/uL Eosinophils # (0-0.7) k/uL Basophils # (0-0.2) k/uL PT (9.0-12.0) sec INR (<1.2) APTT (22.0-30.0) sec D-Dimer (<0.60) mg/L FEU Sodium (137-145) mmol/L Potassium (3.5-5.1) mmol/L Chloride (98-107) mmol/L Carbon Dioxide (22-30) mmol/L Anion Gap mmol/L BUN (9-20) mg/dL Creatinine (0.66-1.25) mg/dL Est GFR (CKD-EPI)AfAm (>60 ml/min/1.73 sqM) Est GFR (CKD-EPI)NonAf (>60 ml/min/1.73 sqM) Glucose (74-99) mg/dL Lactic Ac Sepsis Rflx Y Plasma Lactic Acid Rigoberto (0.7-2.0) mmol/L Calcium (8.4-10.2) mg/dL Magnesium (1.6-2.3) mg/dL Total Bilirubin (0.2-1.3) mg/dL AST (17-59) U/L ALT (4-49) U/L Alkaline Phosphatase (38-126) U/L Troponin I (0.000-0.034) ng/mL NT-Pro-B Natriuret Pep pg/mL Total Protein (6.3-8.2) g/dL Albumin (3.5-5.0) g/dL Urine Color Light Yellow Urine Appearance Clear (Clear) Urine pH 5.0 (5.0-8.0) Ur Specific [place] 1.003 (1.001-1.035) Urine Protein Negative (Negative) Urine Glucose (UA) Negative (Negative) Urine Ketones Negative (Negative) Urine Blood Negative (Negative) Urine Nitrite Negative (Negative) Urine Bilirubin Negative (Negative) Urine Urobilinogen <2.0 (<2.0) mg/dL Ur Leukocyte Esterase Negative (Negative) Coronavirus (PCR) Not Detected (Not Detectd) 08/16/21 Range/Units 04:10 WBC (3.8-10.6) k/uL RBC (4.30-5.90) m/uL Hgb (13.0-17.5) gm/dL Hct (39.0-53.0) % MCV (80.0-100.0) fL MCH (25.0-35.0) pg MCHC (31.0-37.0) g/dL RDW (11.5-15.5) % Plt Count (150-450) k/uL MPV Neutrophils % % Lymphocytes % % Monocytes % % Eosinophils % % Basophils % % Neutrophils # (1.3-7.7) k/uL Lymphocytes # (1.0-4.8) k/uL Monocytes # (0-1.0) k/uL Eosinophils # (0-0.7) k/uL Basophils # (0-0.2) k/uL PT (9.0-12.0) sec INR (<1.2) APTT (22.0-30.0) sec D-Dimer (<0.60) mg/L FEU Sodium (137-145) mmol/L Potassium (3.5-5.1) mmol/L Chloride (98-107) mmol/L Carbon Dioxide (22-30) mmol/L Anion Gap mmol/L BUN (9-20) mg/dL Creatinine (0.66-1.25) mg/dL Est GFR (CKD-EPI)AfAm (>60 ml/min/1.73 sqM) Est GFR (CKD-EPI)NonAf (>60 ml/min/1.73 sqM) Glucose (74-99) mg/dL Lactic Ac Sepsis Rflx Plasma Lactic Acid Rigoberto 1.6 (0.7-2.0) mmol/L Calcium (8.4-10.2) mg/dL Magnesium (1.6-2.3) mg/dL Total Bilirubin (0.2-1.3) mg/dL AST (17-59) U/L ALT (4-49) U/L Alkaline Phosphatase (38-126) U/L Troponin I (0.000-0.034) ng/mL NT-Pro-B Natriuret Pep pg/mL Total Protein (6.3-8.2) g/dL Albumin (3.5-5.0) g/dL Urine Color Urine Appearance (Clear) Urine pH (5.0-8.0) Ur Specific [place] (1.001-1.035) Urine Protein (Negative) Urine Glucose (UA) (Negative) Urine Ketones (Negative) Urine Blood (Negative) Urine Nitrite (Negative) Urine Bilirubin (Negative) Urine Urobilinogen (<2.0) mg/dL Ur Leukocyte Esterase (Negative) Coronavirus (PCR) (Not Detectd) - EKG Data -: EKG Interpreted by Me EKG shows normal: sinus rhythm, axis (Normal), intervals (Normal), QRS complexes (Old inferior infarct.), ST-T waves (Normal) Rate: normal (Rate 74 bpm) Disposition Clinical Impression: Pulmonary fibrosis Narrative: Possible pneumonia Disposition: ADMITTED IP TO THIS HOSP Condition: Fair Is patient prescribed a controlled substance at d/c from ED?: No
[2021-08-16] MEDS: methylPREDNISolone SOD SUCCI 125 MG/2 ML VIAL IV SCH ×3 (09:00→21:50)
[2021-08-16] MEDS: lisinopriL 5 MG TAB PO SCH (09:01)
[2021-08-16] MEDS: FAMOTIDINE 20 MG TAB PO SCH ×2 (09:01→21:50)
[2021-08-16] MEDS: ASPIRIN 81 MG PO SCH (09:01)
[2021-08-16] MEDS: LEVOTHYROXINE 88 MCG TAB PO SCH (09:01)
[2021-08-16] MEDS: AZITHROMYCIN 500 MG in SODIUM CHLORIDE 0.9% 250 ML IVPB SCH (09:01)
[2021-08-16] MEDS: CLOPIDOGREL 75 MG TAB PO SCH (09:01)
[2021-08-16] MEDS: METOPROLOL TARTRATE 12.5 MG TAB PO SCH (09:01)
[2021-08-16] MEDS: PANTOPRAZOLE 40 MG TABLET PO SCH (09:01)
[2021-08-16] MEDS: CARBIDOPA-LEVODOPA 10-100 MG 1 EACH TAB PO SCH ×3 (12:37→23:14)
[2021-08-16] MEDS: FUROSEMIDE 10 MG TAB PO SCH (13:57)
--- NOTE | 2021-08-16 14:55 | P.CNPUL ---
History of Present Illness Consult date: 08/16/21 Reason for consult: dyspnea, cough, COPD, hypoxemia, pulmonary fibrosis Chief complaint: Shortness of breath for 1 week, poor appetite for 2 days History of present illness: Patient is a 71-year-old male with history of extensive smoking and nicotine use used to smoke one pack per day. Smoking about 2 days ago, patient developed increasing shortness of breath for about one week duration shortness of breath associated with productive sputum initially it was light yellow lately turned into dark yellow to green denies any hemoptysis, in the last 2 days he is having poor appetite loss of taste for the food, chest x-ray showed cardiomegaly with the right axillary pacemaker along with sternal wires, there is some in terstitial prominence suggestive of mild pulmonary fibrosis present, computed tomography scan of the chest negative for pulmonary embolism mild fibrotic changes at the bases were seen along with subsegmental atelectasis compared to prior CAT scan in May 2020 slight progression is noted, patient currently on 6 L oxygen, getting bronchodilators and IV steroids and breathing treatments and broad-spectrum antibiotics, labs are significant for white cell count of 6200 hemoglobin and hematocrit 11 and 34, platelet count of 216,000, d-dimer is 2.54, sodium is 132 potassium of 3.8, BUN/creatinine normal, lactic acid is 2.4 came down to 1.6, urine analysis unremarkable, covert PCR is negative Review of Systems All systems: negative Past Medical History Past Medical History: Coronary Artery Disease (CAD), Heart Failure, Dementia, Hyperlipidemia, Hypertension, Seizure Disorder, Syncope, Thyroid Disorder Additional Past Medical History / Comment(s): Ischemic cardiomyopathy, EF 20- 25%, last seizure about 2 yrs ago, hypothyroid.neuropathy "WHEN HE WORKED HE HAD A CRUSHING INJURY -COLLAPSED LUNGS C/T AND HAS CHRONIC BACK PAIN"" pt states he is schizophrenic/bipolar. History of Any Multi-Drug Resistant Organisms: None Reported Past Surgical History: AICD, Back Surgery, Coronary Bypass/CABG, Heart Catheterization, Heart Catheterization With Stent Additional Past Surgical History / Comment(s): 1995 CABG 4 vessel in [place], has had 2"HEART CATHS/had 2 STENTS after cabg sx.pt stated they were done in [facility]. "sx on tailbone, cortisone injections, devin inguinal hernia repair Past Anesthesia/Blood Transfusion Reactions: No Reported Reaction Date of Last Stent Placement:: 1995 Type of Cardiac Device: AICD Device Placement Date:: [address] [facility] Past Psychological History: Anxiety, Depression, Schizoaffective Disorder, Schizophrenia Smoking Status: Current every day smoker Past Alcohol Use History: Daily Past Drug Use History: None Reported - Past Family History Mother Family Medical History: Respiratory Disorder Additional Family Medical History / Comment(s): Mother had TB Father Additional Family Medical History / Comment(s): Father was an alcoholic. Medications and Allergies Home Medications Medication Instructions Recorded Confirmed Type Aspirin EC [Ecotrin Low Dose] 81 mg PO DAILY 09/08/18 08/16/21 History Metoprolol Tartrate [Lopressor] 12.5 mg PO BID 09/08/18 08/16/21 History Simvastatin [Zocor] 20 mg PO HS 12/18/18 08/16/21 History Torsemide [Demadex] 5 mg PO DAILY 12/18/18 08/16/21 History Clopidogrel [Plavix] 75 mg PO DAILY 12/30/18 08/16/21 History Omeprazole [PriLOSEC] 40 mg PO DAILY 04/16/20 08/16/21 History Ergocalciferol [Vitamin D2 (1250 1,250 mcg PO TU 08/16/21 08/16/21 History Mcg = 49839 Iu)] Ferrous Sulfate [Feosol] 325 mg PO DAILY 08/16/21 08/16/21 History Folic Acid 1 mg PO DAILY 08/16/21 08/16/21 History Levothyroxine Sodium [Synthroid] 100 mcg PO DAILY 08/16/21 08/16/21 History Midodrine [ProAmatine] 5 mg PO AC-TID 08/16/21 08/16/21 History Paliperidone Palmitate [Invega 117 mg IM Q28D 08/16/21 08/16/21 History Sustenna] Potassium Chloride [Klor-Con 20] 20 meq PO BID 08/16/21 08/16/21 History hydrOXYzine HCL [Atarax] 25 mg PO TID PRN 08/16/21 08/16/21 History Allergies Allergy/AdvReac Type Severity Reaction Status Date / Time morphine Allergy Anaphylaxis Verified 08/16/21 07:31 Penicillins Allergy Swelling Verified 08/16/21 07:31 Influenza Virus Vaccines AdvReac Unknown Verified 08/16/21 07:31 pneumococcal vaccine AdvReac Unknown Verified 08/16/21 07:31 Physical Exam Vitals: Vital Signs Temp Pulse Pulse Resp BP BP Pulse Ox 08/16/21 13:48 61 16 117/73 98 08/16/21 08:00 66 16 116/78 99 08/16/21 06:15 97.9 F 66 139/78 100 08/16/21 04:30 70 18 131/78 99 08/16/21 02:30 100 08/16/21 01:30 77 20 119/84 100 08/16/21 00:30 74 24 122/90 100 08/16/21 00:15 97.0 F L 80 25 H 115/77 100 08/16/21 00:08 25 H Intake and Output 08/15/21 08/16/21 08/16/21 22:59 06:59 14:59 Output Total 900 Balance -900 Output: Urine 900 Other: Voiding Method Urinal Weight 49.895 kg - Constitutional General appearance: average body habitus, cooperative, disheveled - EENT Eyes: EOMI, PERRLA Ears: bilateral: normal - Neck Neck: normal ROM Carotids: bilateral: upstroke normal Thyroid: bilateral: normal size - Respiratory Respiratory: bilateral: diminished - Cardiovascular Rhythm: regularly irregular Heart sounds: normal: S1, S2 - Gastrointestinal General gastrointestinal: normal bowel sounds, soft - Integumentary Integumentary: normal turgor - Neurologic Neurologic: CNII-XII intact - Musculoskeletal Musculoskeletal: gait normal, generalized weakness, strength equal bilaterally - Psychiatric Psychiatric: A&O x's 3, appropriate affect, intact judgment & insight Results - Laboratory Findings CBC and BMP: 08/16/21 00:23 08/16/21 00:23 PT/INR, D-dimer PT 10.9 sec (9.0-12.0) 08/16/21 00:23 INR 1.0 (<1.2) 08/16/21 00:23 D-Dimer 2.54 mg/L FEU (<0.60) H 08/16/21 00:23 Abnormal lab findings: Abnormal Labs 08/16/21 08/16/21 08/16/21 00:23 00:23 00:23 RBC 3.86 L Hgb 11.1 L Hct 34.1 L D-Dimer 2.54 H Sodium 132 L Carbon Dioxide 19 L Glucose 103 H Plasma Lactic Acid Rigoberto Calcium 8.2 L Albumin 3.4 L 08/16/21 00:23 RBC Hgb Hct D-Dimer Sodium Carbon Dioxide Glucose Plasma Lactic Acid Rigoberto 2.4 H* Calcium Albumin - Diagnostic Findings Chest x-ray: report reviewed, image reviewed CT scan - chest: report reviewed, image reviewed (Finding as noted above) Assessment and Plan Assessment: Acute COPD exacerbation Purulent tracheobronchitis Mild pulmonary fibrosis at the bases Sepsis Mild hyponatremia Plan: Agree with broad-spectrum antibiotics, can be changed to oral 24-48 hours Bronchodilators IV steroids which however can be changed to oral in next 48 hours From pulmonary standpoint anticipated that patient have expected recovery for the next 48-72 hours then patient can be discharged would recommend follow-up in the office so that more evaluation of COPD/pulmonary fibrosis can be accomplished Smoking cessation counseling and advice We will sign off at this point of time, as I'm going out of town, follow-up on outpatient basis
[2021-08-16] MEDS: ATORVASTATIN 10 MG TAB PO SCH (21:50)
--- NOTE | 2021-08-16 22:20 | HP ---
HISTORY AND PHYSICAL This 71-year-old white male came in, was admitted with acute exacerbation of pulmonary fibrosis, scar tissue, had elevated D-dimer. CT of the chest is negative for pulmonary embolism or severe pneumonia. He probably has tracheobronchitis or pulmonary fibrosis exacerbation. He was admitted, started on steroids and antibiotics. He also has a history of mental disease, schizophrenia and bipolar. He has been stable. Continues to smoke but has cut way back. Medications: See list. Fourteen-point review of systems negative except for shortness of breath over the last week despite updraft treatments with DuoNeb q.i.d. On physical exam, he is in mild respiratory distress. Respiratory rate 20-25. Blood pressure is 120 over 70s. Cardiovascular S1, S2. Lungs scattered wheeze x4. Hematology negative Homans. GI soft, nontender. ASSESSMENT: 1. Exacerbation of pulmonary fibrosis. 2. Chronic obstructive pulmonary disease exacerbation. 3. Tracheobronchitis. 4. Severe hypoxemic respiratory distress. Continue with steroids, updrafts, antibiotics. Prognosis guarded. Get pulmonary consult. MMODL / IJN: [id number] /
[2021-08-16] MEDS: ACETAMINOPHEN TAB 500 MG TAB PO PRN (23:13)
[2021-08-17] MEDS: METOPROLOL TARTRATE 12.5 MG TAB PO SCH ×3 (00:08→22:49)
[2021-08-17] MEDS: methylPREDNISolone SOD SUCCI 125 MG/2 ML VIAL IV SCH ×4 (05:21→21:49)
[2021-08-17] MEDS: AZITHROMYCIN 500 MG in SODIUM CHLORIDE 0.9% 250 ML IVPB SCH (09:00)
[2021-08-17] MEDS: CLOPIDOGREL 75 MG TAB PO SCH (09:05)
[2021-08-17] MEDS: PANTOPRAZOLE 40 MG TABLET PO SCH (09:05)
[2021-08-17] MEDS: FAMOTIDINE 20 MG TAB PO SCH ×2 (09:05→21:49)
[2021-08-17] MEDS: lisinopriL 5 MG TAB PO SCH (09:05)
[2021-08-17] MEDS: LEVOTHYROXINE 88 MCG TAB PO SCH (09:06)
[2021-08-17] MEDS: ASPIRIN 81 MG PO SCH (09:06)
[2021-08-17] MEDS: FUROSEMIDE 10 MG TAB PO SCH (09:13)
[2021-08-17] MEDS: CARBIDOPA-LEVODOPA 10-100 MG 1 EACH TAB PO SCH ×3 (09:13→21:49)
[2021-08-17] MEDS: ACETAMINOPHEN TAB 500 MG TAB PO PRN ×2 (15:27→20:30)
[2021-08-17] MEDS: ATORVASTATIN 10 MG TAB PO SCH (21:49)
--- NOTE | 2021-08-17 23:39 | PN ---
PROGRESS NOTE 71-year-old white male complaining of chest pain, pleuritic in nature whenever he takes a deep breath. He is asking for pain medication. Dr. Bonner's consult reviewed. IV Solu- Medrol for another 24 to 48 hours. Possible switch to oral for discharge. Cardiovascular: S1-S2. Lungs scattered wheeze and rhonchi. Hematology negative Homans. Temp 97.7. He is 100% on 3 L. Blood pressure 130/75, pulse 70, respiratory 16 to 18. We will add some pain IV for pain. Continue with Solu-Medrol down Solu-Medrol in the next 24 to 48 hours for possible discharge home once or . Continue broad- spectrum antibiotics for tracheobronchitis. PROGNOSIS: Guarded. MMODL / IJN: [id number] /
[2021-08-18] MEDS: methylPREDNISolone SOD SUCCI 125 MG/2 ML VIAL IV SCH ×4 (02:25→20:03)
[2021-08-18] MEDS: HYDROmorphone 0.5 MG/0.5 ML SYRINGE IVP PRN ×3 (02:30→18:29)
[2021-08-18] MEDS: LEVOTHYROXINE 88 MCG TAB PO SCH (05:57)
[2021-08-18 06:54] LABS: Basophils % (A) 0 %; Eosinophils % (A) 0 %; HGB 11.8 gm/dL (13.0-17.5); Hypochromasia Slight; Lymphocytes # (A) 0.7 k/uL (1.0-4.8); Lymphocytes % (A) 6 %; MCH 28.2 pg (25.0-35.0); MCV 91.1 fL (80.0-100.0); Mean Platelet Volume 8.3; Monocytes # (A) 0.3 k/uL (0-1.0); Monocytes % (A) 2 %; Neutrophils # (A) 10.4 k/uL (1.3-7.7); Neutrophils % (A) 91 %; Platelet Count 260 k/uL (150-450); RBC 4.17 m/uL (4.30-5.90); RDW 15.3 % (11.5-15.5); WBC 11.5 k/uL (3.8-10.6)
[2021-08-18 07:21] LABS: Albumin 3.2 g/dL (3.5-5.0); Calcium 8.7 mg/dL (8.4-10.2); Potassium 5.1 mmol/L (3.5-5.1); Total Bilirubin 0.4 mg/dL (0.2-1.3); Total Protein 6.6 g/dL (6.3-8.2)
[2021-08-18] MEDS: ASPIRIN 81 MG PO SCH (08:05)
[2021-08-18] MEDS: FUROSEMIDE 10 MG TAB PO SCH (08:05)
[2021-08-18] MEDS: PANTOPRAZOLE 40 MG TABLET PO SCH (08:05)
[2021-08-18] MEDS: CARBIDOPA-LEVODOPA 10-100 MG 1 EACH TAB PO SCH ×3 (08:05→20:02)
[2021-08-18] MEDS: FAMOTIDINE 20 MG TAB PO SCH (08:05)
[2021-08-18] MEDS: METOPROLOL TARTRATE 12.5 MG TAB PO SCH ×2 (08:05→20:02)
[2021-08-18] MEDS: CLOPIDOGREL 75 MG TAB PO SCH (08:05)
[2021-08-18] MEDS: lisinopriL 5 MG TAB PO SCH (08:05)
[2021-08-18] MEDS: AZITHROMYCIN 500 MG in SODIUM CHLORIDE 0.9% 250 ML IVPB SCH (09:05)
[2021-08-18 14:05] VITALS: BMI 17.7
[2021-08-18] MEDS: ACETAMINOPHEN TAB 500 MG TAB PO PRN (14:22)
[2021-08-18] MEDS: ATORVASTATIN 10 MG TAB PO SCH (20:02)
--- NOTE | 2021-08-19 00:12 | PN ---
PROGRESS NOTE 71-year-old white male who is improving from a pulmonary standpoint on IV steroids. We will switch him to oral prednisone. Possible discharge home in the morning. Temperature 97.7, pulse 64, respiratory 16-20, blood pressure 120/66. Cardiovascular S1, S2. Lungs: Scattered wheeze x4. Hematology negative Homans. Psych: Fair mood and affect. Sat 97 on 2 L. PLAN: Possible discharge home in the morning on oral prednisone. Continue current treatment. Follow up in the next 24 to 48 hours from discharge. MMODL / IJN: [id number] /
[2021-08-19] MEDS: LEVOTHYROXINE 88 MCG TAB PO SCH (06:24)
[2021-08-19] MEDS: PANTOPRAZOLE 40 MG TABLET PO SCH (07:34)
[2021-08-19] MEDS: ASPIRIN 81 MG PO SCH (07:34)
[2021-08-19] MEDS: lisinopriL 5 MG TAB PO SCH (07:37)
[2021-08-19] MEDS: METOPROLOL TARTRATE 12.5 MG TAB PO SCH (07:38)
[2021-08-19] MEDS: CARBIDOPA-LEVODOPA 10-100 MG 1 EACH TAB PO SCH ×2 (07:38→15:28)
[2021-08-19] MEDS: FUROSEMIDE 10 MG TAB PO SCH (07:38)
[2021-08-19] MEDS: CLOPIDOGREL 75 MG TAB PO SCH (07:38)
[2021-08-19] MEDS ORDERED: AZITHROMYCIN 500 MG TAB PO SCH (09:00)
[2021-08-19] MEDS ORDERED: FAMOTIDINE 20 MG TAB PO SCH (09:00)
[2021-08-19] MEDS ORDERED: predniSONE 20 MG TAB PO SCH (09:00)
[2021-08-19 10:31] VITALS: RESP 19
[2021-08-19 16:17] VITALS: BP 145/78; PULSE 68; TEMP 97.9
== END 2021-08-19 16:15 | disposition home or self-care (01) | DRG 191 ==
LOC: EC 23:30 → 4SSUR 08-16 04:17 → 3NCARDOBS 08-17 08:58
PROVIDERS: ADMIT Family Medicine; ATTEND Family Medicine
PROC: 3E0F7SF Introduction of Other Gas into Respiratory Tract, Via Natural or Artificial Opening (ICD-10-PCS; principal; 2021-08-16)
DX: J44.1 Chronic obstructive pulmonary disease with (acute) exacerbation (principal); E87.1 Hypo-osmolality and hyponatremia; R06.03 Acute respiratory distress; J84.10 Pulmonary fibrosis, unspecified; Z20.822 Contact with and (suspected) exposure to COVID-19; J40 Bronchitis, not specified as acute or chronic; I11.0 Hypertensive heart disease with heart failure; I25.10 Atherosclerotic heart disease of native coronary artery without angina pectoris; I50.9 Heart failure, unspecified; G62.9 Polyneuropathy, unspecified; E03.9 Hypothyroidism, unspecified; M54.9 Dorsalgia, unspecified; E78.5 Hyperlipidemia, unspecified; F03.90 Unspecified dementia, unspecified severity, without behavioral disturbance, psychotic disturbance, mood disturbance, and anxiety; F17.210 Nicotine dependence, cigarettes, uncomplicated; F25.9 Schizoaffective disorder, unspecified; F31.9 Bipolar disorder, unspecified; G40.909 Epilepsy, unspecified, not intractable, without status epilepticus; I25.5 Ischemic cardiomyopathy; R09.02 Hypoxemia; Z79.02 Long term (current) use of antithrombotics/antiplatelets; Z79.82 Long term (current) use of aspirin; Z79.890 Hormone replacement therapy; Z79.899 Other long term (current) drug therapy; Z81.1 Family history of alcohol abuse and dependence; Z95.1 Presence of aortocoronary bypass graft; Z88.5 Allergy status to narcotic agent; Z88.0 Allergy status to penicillin; Z87.19 Personal history of other diseases of the digestive system; Z95.810 Presence of automatic (implantable) cardiac defibrillator
CPT/HCPCS: 36415; 71045; 71275; 80053; 81003; 83605; 83735; 83880; 84484; 85025; 85379; 85610; 85730; 87040; 87635; 93005; 94660; 96365; 96375; 99285

== ENCOUNTER 2021-09-03 15:26 | Emergency (ER) | payer MEDICARE, OTHER ==
[2021-09-03 15:47] VITALS: TEMP 98
--- NOTE | 2021-09-03 16:17 | ED ---
General Adult HPI - General Chief complaint: Shortness of Breath Stated complaint: Chest pain Time Seen by Provider: 09/03/21 15:42 Source: patient, EMS Mode of arrival: EMS Limitations: physical limitation - History of Present Illness Initial comments: Dictation was produced using [employer] dictation software. please excuse any grammatical, word or spelling errors. Chief Complaint: 71-year-old male with significant past medical history presents to the emergency department again for shortness of breath. History of Present Illness: It is a 71-year-old male who presents to the emergency department for 2 days of shortness of breath. Patient has multiple comorbidities including coronary artery disease, CABG, seizure disorder, demen tia, hypertension, pulmonary fibrosis. Patient was just admitted to the hospital 18 days ago for the same complaint. He is admitted to the hospital seen by pulmonology and discharged 2 days later. Patient states is short of breath. When asked if he has any complaints he says "everything." Patient complaining of chest pain, abdominal pain headache and neck pain. Patient states his chest pain is more to his right lateral chest. Nonpleuritic. States it is achy. Nondiaphoretic, not associated with nausea. No worse with deep inspiration. Patient states that he has diffuse abdominal pain. Patient denies any cough. No fever or constitutional symptoms. Patient allegedly wears home oxygen. The ROS documented in this emergency department record has been reviewed and confirmed by me. Those systems with pertinent positive or negative responses have been documented in the HPI. All other systems are other negative and/or noncontributory. PHYSICAL EXAM: General Impression: Alert and oriented x3, not in acute distress HEENT: Normocephalic atraumatic, extra-ocular movements intact, pupils equal and reactive to light bilaterally, mucous membranes moist. Cardiovascular: Heart regular rate and rhythm Chest: Able to complete full sentences, no retractions, no tachypnea, no ulcer t o auscultation bilaterally Abdomen: abdomen soft, non-tender, non-distended, no organomegaly Musculoskeletal: Pulses present and equal in all extremities, no peripheral edema Motor: no focal deficits noted Neurological: CN II-XII grossly intact, no focal motor or sensory deficits noted Skin: Intact with no visualized rashes Psych: Normal affect and mood ED course: 71-year-old male presents to the emergency department for multiple complaints. As upon arrival are within acceptable limits. Patient's 100% on room air. Supposedly is on home oxygen. Rest of vital signs are within normal limits. Review was performed. Patient was seen in emergency department 18 days ago and was admitted for pulmonary consultation. At that time he had a CT that did not show any pulmonary embolism. His value by pulmonology. He had a short hospital stay and was discharge. States he lives at home with a roommate. Patient states she's noncompliant with his nasal cannula oxygen and would prefer to smoke. He was diagnosed with COPD exacerbation, tracheobronchitis during his last admission discharged with antibiotics and bronchodilators and steroids. Patient's physical exam is very benign. He is not showing signs rest or distress. His lung exam is unremarkable. His EKG is normal. Laboratory evaluation obtained. Leukopenia 2.9 with a platelet count of 96. He had labs performed 16 days ago which showed platelets of 260 and white blood cell, 11.5. Metabolic panel is unremarkable. 2 troponins are negative. Chest x-ray is unremarkable. Patient reevaluated bedside at 9:50 PM found to be in stable medical condition. This point patient is to be stable. He is not requiring any supple oxygen despite needing home O2. Case is discussed with his primary care physician Dr. Verdin who is aware of the patient and his lab abnormalities. Patient is told to follow-up with his PCP. EKG interpretation: Ventricular rate 74, sinus rhythm, W[place] interval 96, QRS 90, QTc 461. No W[place] prolongation, no QTC prolongation, no ST or T-wave changes noted. EKG compared to August showing no changes. Overall, this EKG is unremarkable - Related Data Home Medications Medication Instructions Recorded Confirmed Aspirin EC [Ecotrin Low Dose] 81 mg PO DAILY 09/08/18 09/03/21 Simvastatin [Zocor] 20 mg PO HS 12/18/18 09/03/21 Torsemide [Demadex] 5 mg PO DAILY 12/18/18 09/03/21 Clopidogrel [Plavix] 75 mg PO DAILY 12/30/18 09/03/21 Ergocalciferol [Vitamin D2 (1250 1,250 mcg PO TU 08/16/21 09/03/21 Mcg = 03050 Iu)] Ferrous Sulfate [Iron (65 MG 325 mg PO DAILY 08/16/21 09/03/21 Elemental)] Folic Acid 1 mg PO DAILY 08/16/21 09/03/21 Paliperidone Palmitate [Invega 117 mg IM Q28D 08/16/21 09/03/21 Sustenna] Potassium Chloride [Klor-Con 20] 20 meq PO BID 08/16/21 09/03/21 Divalproex Sodium [Depakote] 500 mg PO BID 08/17/21 09/03/21 Metoprolol Tartrate [Lopressor] 12.5 mg PO BID 08/17/21 09/03/21 Midodrine [ProAmatine] 5 mg PO AC-TID 08/17/21 09/03/21 Omeprazole Magnesium [PriLOSEC] 20 mg PO DAILY 08/17/21 09/03/21 hydrOXYzine HCL [Atarax] 25 mg PO TID PRN 08/17/21 09/03/21 Carbidopa-Levodopa 10-100 mg 1 tab PO TID 09/03/21 09/03/21 [Sinemet 10-100 mg] Previous Rx's Medication Instructions Recorded Levothyroxine Sodium [Synthroid] 88 mcg PO DAILY@0630 tab 08/18/21 lisinopriL [Zestril] 5 mg PO DAILY 30 Days #30 tab 08/18/21 predniSONE [Deltasone] 40 mg PO DAILY 30 Days #30 tab 08/18/21 Allergies Allergy/AdvReac Type Severity Reaction Status Date / Time morphine Allergy Anaphylaxis Verified 09/03/21 17:01 Penicillins Allergy Swelling Verified 09/03/21 17:01 Influenza Virus Vaccines AdvReac Unknown Verified 09/03/21 17:01 pneumococcal vaccine AdvReac Unknown Verified 09/03/21 17:01 Review of Systems ROS Statement: Those systems with pertinent positive or pertinent negative responses have been documented in the HPI. ROS Other: All systems not noted in ROS Statement are negative. Past Medical History Past Medical History: Coronary Artery Disease (CAD), Heart Failure, Dementia, Hyperlipidemia, Hypertension, Seizure Disorder, Syncope, Thyroid Disorder Additional Past Medical History / Comment(s): Ischemic cardiomyopathy, EF 20- 25%, last seizure about 2 yrs ago, hypothyroid.neuropathy "WHEN HE WORKED HE HAD A CRUSHING INJURY -COLLAPSED LUNGS C/T AND HAS CHRONIC BACK PAIN"" pt states he is schizophrenic/bipolar. History of Any Multi-Drug Resistant Organisms: None Reported Past Surgical History: AICD, Back Surgery, Coronary Bypass/CABG, Heart Catheterization, Heart Catheterization With Stent Additional Past Surgical History / Comment(s): 1995 CABG 4 vessel in [place], has had 2"HEART CATHS/had 2 STENTS after cabg sx.pt stated they were done in [facility]. "sx on tailbone, cortisone injections, devin inguinal hernia repair Past Anesthesia/Blood Transfusion Reactions: No Reported Reaction Date of Last Stent Placement:: 1995 Type of Cardiac Device: AICD Device Placement Date:: [address] [facility] Past Psychological History: Anxiety, Depression, Schizoaffective Disorder, Schizophrenia Smoking Status: Current every day smoker Past Alcohol Use History: Daily Past Drug Use History: None Reported - Past Family History Mother Family Medical History: Respiratory Disorder Additional Family Medical History / Comment(s): Mother had TB Father Additional Family Medical History / Comment(s): Father was an alcoholic. General Exam Limitations: physical limitation Course Vital Signs 09/03/21 09/03/21 09/03/21 15:38 16:06 17:49 Temperature 98 F Pulse Rate 73 87 70 Respiratory 18 18 16 Rate Blood Pressure 146/87 110/77 112/68 O2 Sat by Pulse 100 99 100 Oximetry Medical Decision Making - Lab Data Result diagrams: 09/03/21 16:17 09/03/21 16:00 Lab Results 09/03/21 09/03/21 09/03/21 Range/Units 16:00 16:00 16:17 WBC 2.9 L (3.8-10.6) k/uL RBC 4.47 (4.30-5.90) m/uL Hgb 12.7 L (13.0-17.5) gm/dL Hct 40.6 (39.0-53.0) % MCV 90.8 (80.0-100.0) fL MCH 28.5 (25.0-35.0) pg MCHC 31.4 (31.0-37.0) g/dL RDW 16.3 H (11.5-15.5) % Plt Count 96 L D (150-450) k/uL MPV 8.9 Neutrophils % (Manual) 73 % Lymphocytes % (Manual) 25 % Monocytes % (Manual) 2 % Neutrophils # (Manual) 2.12 (1.3-7.7) k/uL Lymphocytes # (Manual) 0.73 L (1.0-4.8) k/uL Monocytes # (Manual) 0.06 (0-1.0) k/uL Nucleated RBCs 0 (0-0) /100 WBC Manual Slide Review Performed Hypochromasia Slight Anisocytosis Slight Sodium 137 (137-145) mmol/L Potassium 4.8 (3.5-5.1) mmol/L Chloride 102 (98-107) mmol/L Carbon Dioxide 23 (22-30) mmol/L Anion Gap 12 mmol/L BUN 14 (9-20) mg/dL Creatinine 1.16 (0.66-1.25) mg/dL Est GFR (CKD-EPI)AfAm 74 (>60 ml/min/1.73 sqM) Est GFR (CKD-EPI)NonAf 64 (>60 ml/min/1.73 sqM) Glucose 97 (74-99) mg/dL Calcium 9.0 (8.4-10.2) mg/dL Total Bilirubin 0.8 (0.2-1.3) mg/dL AST 26 (17-59) U/L ALT 10 (4-49) U/L Alkaline Phosphatase 62 (38-126) U/L Troponin I <0.012 (0.000-0.034) ng/mL Total Protein 7.4 (6.3-8.2) g/dL Albumin 3.7 (3.5-5.0) g/dL Lipase 261 (23-300) U/L 09/03/21 Range/Units 19:31 WBC (3.8-10.6) k/uL RBC (4.30-5.90) m/uL Hgb (13.0-17.5) gm/dL Hct (39.0-53.0) % MCV (80.0-100.0) fL MCH (25.0-35.0) pg MCHC (31.0-37.0) g/dL RDW (11.5-15.5) % Plt Count (150-450) k/uL MPV Neutrophils % (Manual) % Lymphocytes % (Manual) % Monocytes % (Manual) % Neutrophils # (Manual) (1.3-7.7) k/uL Lymphocytes # (Manual) (1.0-4.8) k/uL Monocytes # (Manual) (0-1.0) k/uL Nucleated RBCs (0-0) /100 WBC Manual Slide Review Hypochromasia Anisocytosis Sodium (137-145) mmol/L Potassium (3.5-5.1) mmol/L Chloride (98-107) mmol/L Carbon Dioxide (22-30) mmol/L Anion Gap mmol/L BUN (9-20) mg/dL Creatinine (0.66-1.25) mg/dL Est GFR (CKD-EPI)AfAm (>60 ml/min/1.73 sqM) Est GFR (CKD-EPI)NonAf (>60 ml/min/1.73 sqM) Glucose (74-99) mg/dL Calcium (8.4-10.2) mg/dL Total Bilirubin (0.2-1.3) mg/dL AST (17-59) U/L ALT (4-49) U/L Alkaline Phosphatase (38-126) U/L Troponin I <0.012 (0.000-0.034) ng/mL Total Protein (6.3-8.2) g/dL Albumin (3.5-5.0) g/dL Lipase (23-300) U/L Disposition Clinical Impression: Chest pain Disposition: HOME SELF-CARE Condition: Good Instructions (If sedation given, give patient instructions): Pulmonary Fibrosis (ED) Is patient prescribed a controlled substance at d/c from ED?: No Referrals: Raffaele Verdin MD [Primary Care Provider] - 1-2 days
[2021-09-03 16:33] LABS: Albumin 3.7 g/dL (3.5-5.0); Total Bilirubin 0.8 mg/dL (0.2-1.3); Total Protein 7.4 g/dL (6.3-8.2)
--- NOTE | 2021-09-03 16:35 | XR ---
EXAMINATION TYPE: XR chest 1V portable DATE OF EXAM: 09/03/2021 4:29 PM COMPARISON:08/16/2021 CLINICAL INDICATION:Male, 71 years old with history of dyspnea; TECHNIQUE: Frontal view of the chest. FINDINGS: Lungs/Pleura: Prominent interstitial lung markings are seen scattered throughout the lungs. No eviden ce of focal consolidation, pneumothorax or pleural effusion. Pulmonary vascularity: Unremarkable. Heart/mediastinum: Cardiomediastinal silhouette is unremarkable. Musculoskeletal: No acute osseous pathology. Other findings: Single-lead cardiac conduction device overlying the right hemithorax with lead projecting over the ri ght ventricle. Midline sternotomy wires and surgical clips project over the mediastinum. IMPRESSION: Chronic changes without acute pulmonary process. No significant change from prior.
[2021-09-03 16:42] LABS: Potassium 4.8 mmol/L (3.5-5.1)
[2021-09-03 17:04] LABS: Anisocytosis Slight; HCT 40.6 % (39.0-53.0); HGB 12.7 gm/dL (13.0-17.5); Hypochromasia Slight; MCH 28.5 pg (25.0-35.0); MCHC 31.4 g/dL (31.0-37.0); MCV 90.8 fL (80.0-100.0); Mean Platelet Volume 8.9; RBC 4.47 m/uL (4.30-5.90); RDW 16.3 % (11.5-15.5); WBC 2.9 k/uL (3.8-10.6)
[2021-09-03 17:54] VITALS: BP 112/68; PULSE 70; RESP 16
[2021-09-03 18:02] LABS: Lymphocytes # (M) 0.73 k/uL (1.0-4.8); Monocytes # (M) 0.06 k/uL (0-1.0); Neutrophils # (M) 2.12 k/uL (1.3-7.7); Neutrophils % (M) 73 %; Nucleated Red Blood Cells 0 /100 WBC (0-0); Total Cells Counted 100
[2021-09-03 18:04] LABS: Platelet Count 96 k/uL (150-450)
[2021-09-03] MEDS ORDERED: ACETAMINOPHEN TAB 325 MG TAB PO STA (18:13)
== END 2021-09-03 23:27 | disposition home or self-care (01) ==
LOC: EC 15:26
DX: R07.9 Chest pain, unspecified (principal); R06.02 Shortness of breath; R51.9 Headache, unspecified; M54.2 Cervicalgia; R10.84 Generalized abdominal pain; F17.200 Nicotine dependence, unspecified, uncomplicated; I25.10 Atherosclerotic heart disease of native coronary artery without angina pectoris; I11.0 Hypertensive heart disease with heart failure; I50.9 Heart failure, unspecified; E78.5 Hyperlipidemia, unspecified; E03.9 Hypothyroidism, unspecified; G40.909 Epilepsy, unspecified, not intractable, without status epilepticus; Z88.5 Allergy status to narcotic agent; Z95.1 Presence of aortocoronary bypass graft; Z88.0 Allergy status to penicillin; Z88.7 Allergy status to serum and vaccine; Z79.82 Long term (current) use of aspirin; Z79.899 Other long term (current) drug therapy; Z79.02 Long term (current) use of antithrombotics/antiplatelets
CPT/HCPCS: 36415; 71045; 80053; 83690; 84484; 85025; 93005; 99285

== ENCOUNTER 2021-09-04 13:27 | Emergency (ER) | payer MEDICARE, OTHER ==
--- NOTE | 2021-09-04 14:27 | ED ---
Seizure HPI - General Chief Complaint: Seizure Stated Complaint: Seizures Time Seen by Provider: 09/04/21 14:11 Source: EMS Mode of arrival: EMS Limitations: no limitations - History of Present Illness Initial Comments: Patient states that he had a seizure. He takes Depakote for seizures. He has no chest or belly or back pain. He has no headache. He has no lightheadedness or dizziness. He has no neck pain or stiffness. He has no focal weakness. He has no paresthesias. He has no change in bowel or bladder habits. - Related Data Home Medications Medication Instructions Recorded Confirmed Aspirin EC [Ecotrin Low Dose] 81 mg PO DAILY 09/08/18 09/04/21 Simvastatin [Zocor] 20 mg PO HS 12/18/18 09/04/21 Torsemide [Demadex] 5 mg PO DAILY 12/18/18 09/04/21 Clopidogrel [Plavix] 75 mg PO DAILY 12/30/18 09/04/21 Ergocalciferol [Vitamin D2 (1250 1,250 mcg PO TU 08/16/21 09/04/21 Mcg = 39506 Iu)] Ferrous Sulfate [Iron (65 MG 325 mg PO DAILY 08/16/21 09/04/21 Elemental)] Folic Acid 1 mg PO DAILY 08/16/21 09/04/21 Paliperidone Palmitate [Invega 117 mg IM Q28D 08/16/21 09/04/21 Sustenna] Potassium Chloride [Klor-Con 20] 20 meq PO BID 08/16/21 09/04/21 Divalproex Sodium [Depakote] 500 mg PO BID 08/17/21 09/04/21 Metoprolol Tartrate [Lopressor] 12.5 mg PO BID 08/17/21 09/04/21 Midodrine [ProAmatine] 5 mg PO AC-TID 08/17/21 09/04/21 Omeprazole Magnesium [PriLOSEC] 20 mg PO DAILY 08/17/21 09/04/21 hydrOXYzine HCL [Atarax] 25 mg PO TID PRN 08/17/21 09/04/21 Carbidopa-Levodopa 10-100 mg 1 tab PO TID 09/03/21 09/04/21 [Sinemet 10-100 mg] Previous Rx's Medication Instructions Recorded Levothyroxine Sodium [Synthroid] 88 mcg PO DAILY@0630 tab 08/18/21 lisinopriL [Zestril] 5 mg PO DAILY 30 Days #30 tab 08/18/21 predniSONE [Deltasone] 40 mg PO DAILY 30 Days #30 tab 08/18/21 Allergies Allergy/AdvReac Type Severity Reaction Status Date / Time morphine Allergy Anaphylaxis Verified 09/04/21 15:07 Penicillins Allergy Swelling Verified 09/04/21 15:07 Influenza Virus Vaccines AdvReac Unknown Verified 09/04/21 15:07 pneumococcal vaccine AdvReac Unknown Verified 09/04/21 15:07 Review of Systems ROS Statement: Those systems with pertinent positive or pertinent negative responses have been documented in the HPI. ROS Other: All systems not noted in ROS Statement are negative. Past Medical History Past Medical History: Coronary Artery Disease (CAD), Heart Failure, Dementia, Hyperlipidemia, Hypertension, Seizure Disorder, Syncope, Thyroid Disorder Additional Past Medical History / Comment(s): Ischemic cardiomyopathy, EF 20- 25%, last seizure about 2 yrs ago, hypothyroid.neuropathy "WHEN HE WORKED HE HAD A CRUSHING INJURY -COLLAPSED LUNGS C/T AND HAS CHRONIC BACK PAIN"" pt states he is schizophrenic/bipolar. History of Any Multi-Drug Resistant Organisms: None Reported Past Surgical History: AICD, Back Surgery, Coronary Bypass/CABG, Heart Catheterization, Heart Catheterization With Stent Additional Past Surgical History / Comment(s): 1995 CABG 4 vessel in [place], has had 2"HEART CATHS/had 2 STENTS after cabg sx.pt stated they were done in [facility]. "sx on tailbone, cortisone injections, devin inguinal hernia repair Past Anesthesia/Blood Transfusion Reactions: No Reported Reaction Date of Last Stent Placement:: 1995 Type of Cardiac Device: AICD Device Placement Date:: 1995 in [facility] Past Psychological History: Anxiety, Depression, Schizoaffective Disorder, Schizophrenia Smoking Status: Current every day smoker Past Alcohol Use History: Daily Past Drug Use History: None Reported - Past Family History Mother Family Medical History: Respiratory Disorder Additional Family Medical History / Comment(s): Mother had TB Father Additional Family Medical History / Comment(s): Father was an alcoholic. General Exam Limitations: no limitations General appearance: alert, in no apparent distress Head exam: Present: atraumatic, normocephalic, normal inspection Eye exam: Present: normal appearance, PERRL, EOMI. Absent: scleral icterus, conjunctival injection, periorbital swelling ENT exam: Present: normal exam, mucous membranes moist Neck exam: Present: normal inspection. Absent: tenderness, meningismus, lymphadenopathy Respiratory exam: Present: normal lung sounds bilaterally. Absent: respiratory distress, wheezes, rales, rhonchi, stridor Cardiovascular Exam: Present: regular rate, normal rhythm, normal heart sounds. Absent: systolic murmur, diastolic murmur, rubs, gallop, clicks GI/Abdominal exam: Present: soft, normal bowel sounds. Absent: distended, tenderness, guarding, rebound, rigid Extremities exam: Present: normal inspection, full ROM, normal capillary refill. Absent: tenderness, pedal edema, joint swelling, calf tenderness Back exam: Present: normal inspection Neurological exam: Present: alert, oriented X3, CN II-XII intact Psychiatric exam: Present: normal affect, normal mood Skin exam: Present: warm, dry, intact, normal color. Absent: rash Medical Decision Making - Medical Decision Making Patient presents to the emerge department after breakthrough seizure. His Depakote level is therapeutic. His exam is unremarkable and he reports no complaints. He is stable for discharge - Lab Data Result diagrams: 09/04/21 14:56 09/04/21 Unknown Lab Results 09/04/21 09/04/21 Range/Units 14:56 Unknown WBC 3.6 L (3.8-10.6) k/uL RBC 4.49 (4.30-5.90) m/uL Hgb 12.8 L (13.0-17.5) gm/dL Hct 39.9 (39.0-53.0) % MCV 88.8 (80.0-100.0) fL MCH 28.4 (25.0-35.0) pg MCHC 32.0 (31.0-37.0) g/dL RDW 16.3 H (11.5-15.5) % Plt Count 105 L (150-450) k/uL MPV 9.4 Neutrophils % 68 % Lymphocytes % 21 % Monocytes % 6 % Eosinophils % 0 % Basophils % 1 % Neutrophils # 2.4 (1.3-7.7) k/uL Lymphocytes # 0.7 L (1.0-4.8) k/uL Monocytes # 0.2 (0-1.0) k/uL Eosinophils # 0.0 (0-0.7) k/uL Basophils # 0.0 (0-0.2) k/uL Anisocytosis Slight Sodium 137 (137-145) mmol/L Potassium 4.3 (3.5-5.1) mmol/L Chloride 103 (98-107) mmol/L Carbon Dioxide 25 (22-30) mmol/L Anion Gap 9 mmol/L BUN 20 (9-20) mg/dL Creatinine 1.06 (0.66-1.25) mg/dL Est GFR (CKD-EPI)AfAm 82 (>60 ml/min/1.73 sqM) Est GFR (CKD-EPI)NonAf 71 (>60 ml/min/1.73 sqM) Glucose 95 (74-99) mg/dL Calcium 8.7 (8.4-10.2) mg/dL Magnesium 2.0 (1.6-2.3) mg/dL Total Bilirubin 0.6 (0.2-1.3) mg/dL AST 21 (17-59) U/L ALT 9 (4-49) U/L Alkaline Phosphatase 67 (38-126) U/L Total Protein 6.9 (6.3-8.2) g/dL Albumin 3.5 (3.5-5.0) g/dL Valproic Acid 69.8 ug/mL Serum Alcohol <10 mg/dL Disposition Clinical Impression: Epileptic seizure, generalized Disposition: HOME SELF-CARE Condition: Good Instructions (If sedation given, give patient instructions): Seizure/Epilepsy Discharge Instructions & Follow-Up Is patient prescribed a controlled substance at d/c from ED?: No Referrals: Raffaele Verdin MD [Primary Care Provider] - 1-2 days
[2021-09-04 15:16] LABS: Anisocytosis Slight; Basophils % (A) 1 %; Eosinophils % (A) 0 %; HCT 39.9 % (39.0-53.0); HGB 12.8 gm/dL (13.0-17.5); Lymphocytes # (A) 0.7 k/uL (1.0-4.8); Lymphocytes % (A) 21 %; MCH 28.4 pg (25.0-35.0); MCV 88.8 fL (80.0-100.0); Mean Platelet Volume 9.4; Monocytes # (A) 0.2 k/uL (0-1.0); Monocytes % (A) 6 %; Neutrophils # (A) 2.4 k/uL (1.3-7.7); Neutrophils % (A) 68 %; Platelet Count 105 k/uL (150-450); RBC 4.49 m/uL (4.30-5.90); RDW 16.3 % (11.5-15.5); WBC 3.6 k/uL (3.8-10.6)
[2021-09-04 16:02] LABS: ALT 9 U/L (4-49); AST 21 U/L (17-59); African American GFR (CKD) 82 (>60 ml/min/1.73 sqM); Albumin 3.5 g/dL (3.5-5.0); Alcohol <10 mg/dL; Alkaline Phosphatase 67 U/L (38-126); Anion Gap 9 mmol/L; Blood Urea Nitrogen 20 mg/dL (9-20); Calcium 8.7 mg/dL (8.4-10.2); Carbon Dioxide 25 mmol/L (22-30); Chloride 103 mmol/L (98-107); Glucose 95 mg/dL (74-99); Non-African American GFR(CKD) 71 (>60 ml/min/1.73 sqM); Potassium 4.3 mmol/L (3.5-5.1); Sodium 137 mmol/L (137-145); Total Bilirubin 0.6 mg/dL (0.2-1.3); Total Protein 6.9 g/dL (6.3-8.2)
[2021-09-04 16:07] LABS: Valproic Acid (Depakene) 69.8 ug/mL
[2021-09-04 16:35] VITALS: BP 131/71; PULSE 71; RESP 12; TEMP 97.3
== END 2021-09-04 17:48 | disposition home or self-care (01) ==
LOC: EC 13:27
DX: G40.401 Other generalized epilepsy and epileptic syndromes, not intractable, with status epilepticus (principal); I11.0 Hypertensive heart disease with heart failure; I25.10 Atherosclerotic heart disease of native coronary artery without angina pectoris; E78.5 Hyperlipidemia, unspecified; I50.9 Heart failure, unspecified; F41.9 Anxiety disorder, unspecified; F25.9 Schizoaffective disorder, unspecified; F17.200 Nicotine dependence, unspecified, uncomplicated; Z72.89 Other problems related to lifestyle; Z79.82 Long term (current) use of aspirin
CPT/HCPCS: 36415; 80164; 80053; 83735; 85025; 99285; G0480; 80320

== ENCOUNTER 2022-01-12 17:18 | Inpatient (IN) | payer MEDICARE, OTHER ==
[2022-01-12] MEDS ORDERED: SODIUM CHLORIDE 0.9% 1,000 ML IV STA ×2 (17:30)
--- NOTE | 2022-01-12 17:35 | ED ---
Weakness HPI - General Chief complaint: Weakness Stated complaint: fever, weakness Time Seen by Provider: 01/12/22 17:20 Source: patient, EMS, RN notes reviewed, old records reviewed Mode of arrival: EMS Limitations: no limitations - History of Present Illness Initial comments: 71-year-old male with a history dementia who is a smoker who states she's been having progressively worse weakness past couple weeks. He does live with a roommate called an ambulance today because patient could not get up he was incontinent of urine and stool. He initially denies any fevers chills or sweats he was found have a temperature 102.2) arrival he has had a cough but does not know the color the phlegm he denies any chest pain shortness of breath or dysuria. MD Complaint: generalized weakness - Related Data Home Medications Medication Instructions Recorded Confirmed No Known Home Medications 01/12/22 01/12/22 Allergies Allergy/AdvReac Type Severity Reaction Status Date / Time morphine Allergy Anaphylaxis Verified 01/12/22 19:23 Penicillins Allergy Swelling Verified 01/12/22 19:23 Influenza Virus Vaccines AdvReac Unknown Verified 01/12/22 19:23 pneumococcal vaccine AdvReac Unknown Verified 01/12/22 19:23 Review of Systems ROS Statement: Those systems with pertinent positive or pertinent negative responses have been documented in the HPI. ROS Other: All systems not noted in ROS Statement are negative. Past Medical History Past Medical History: Coronary Artery Disease (CAD), Heart Failure, Dementia, Hyperlipidemia, Hypertension, Seizure Disorder, Syncope, Thyroid Disorder Additional Past Medical History / Comment(s): Ischemic cardiomyopathy, EF 20- 25%, last seizure about 2 yrs ago, hypothyroid.neuropathy "WHEN HE WORKED HE HAD A CRUSHING INJURY -COLLAPSED LUNGS C/T AND HAS CHRONIC BACK PAIN"" pt states he is schizophrenic/bipolar. History of Any Multi-Drug Resistant Organisms: None Reported Past Surgical History: AICD, Back Surgery, Coronary Bypass/CABG, Heart Catheterization, Heart Catheterization With Stent Additional Past Surgical History / Comment(s): 1995 CABG 4 vessel in [place], has had 2"HEART CATHS/had 2 STENTS after cabg sx.pt stated they were done in [facility]. "sx on tailbone, cortisone injections, devin inguinal hernia repair Past Anesthesia/Blood Transfusion Reactions: No Reported Reaction Date of Last Stent Placement:: 1995 Type of Cardiac Device: AICD Device Placement Date:: [address] [facility] Past Psychological History: Anxiety, Depression, Schizoaffective Disorder, Schizophrenia Smoking Status: Current every day smoker Past Alcohol Use History: None Reported, Daily Past Drug Use History: None Reported - Past Family History Mother Family Medical History: Respiratory Disorder Additional Family Medical History / Comment(s): Mother had TB Father Additional Family Medical History / Comment(s): Father was an alcoholic. General Exam - General Exam Comments Initial Comments: This is a well-developed well-nourished awake alert but somewhat lethargic male Limitations: no limitations General appearance: alert, in no apparent distress Head exam: Present: atraumatic, normocephalic, normal inspection Eye exam: Present: normal appearance, PERRL, EOMI. Absent: scleral icterus, conjunctival injection, periorbital swelling ENT exam: Present: mucous membranes dry Neck exam: Present: normal inspection, full ROM, other (Surgery.). Absent: tenderness, meningismus, lymphadenopathy Respiratory exam: Present: decreased breath sounds Cardiovascular Exam: Present: regular rate, normal rhythm, normal heart sounds. Absent: systolic murmur, diastolic murmur, rubs, gallop, clicks GI/Abdominal exam: Present: soft, normal bowel sounds. Absent: distended, tenderness, guarding, rebound, rigid Extremities exam: Present: normal inspection, full ROM, normal capillary refill. Absent: tenderness, pedal edema, joint swelling, calf tenderness Back exam: Present: normal inspection Neurological exam: Present: alert, oriented X3, CN II-XII intact Psychiatric exam: Present: normal affect, normal mood Skin exam: Present: warm, dry, intact, normal color. Absent: rash Course Vital Signs 01/12/22 01/12/22 01/12/22 17:20 18:16 19:27 Temperature 103.2 F H 102.4 F H 99.6 F Pulse Rate 92 84 Respiratory 20 12 Rate Blood Pressure 125/97 119/71 O2 Sat by Pulse 97 94 L Oximetry EKG Findings - EKG Results: EKG: interpreted by NAVI, sinus rhythm (Sinus rhythm with occasional PVCs noted rate 88 MI interval 121 QRS duration 116 daily since QTC 364/410 red exodeviation evidence of old inferior changes.) Medical Decision Making - Medical Decision Making I did discuss findings with the patient with Dr. Verdin patient does have evidence of influenza type a dehydration hyponatremia and hypomagnesemia failure to thrive - Lab Data Result diagrams: 01/12/22 17:35 01/12/22 17:35 Lab Results 01/12/22 01/12/22 01/12/22 Range/Units 17:35 17:35 17:35 WBC 5.6 (3.8-10.6) k/uL RBC 4.28 L (4.30-5.90) m/uL Hgb 12.1 L (13.0-17.5) gm/dL Hct 37.8 L (39.0-53.0) % MCV 88.4 (80.0-100.0) fL MCH 28.3 (25.0-35.0) pg MCHC 32.0 (31.0-37.0) g/dL RDW 14.4 (11.5-15.5) % Plt Count 89 L (150-450) k/uL MPV 8.5 Neutrophils % 77 % Lymphocytes % 12 % Monocytes % 8 % Eosinophils % 0 % Basophils % 2 % Neutrophils # 4.3 (1.3-7.7) k/uL Lymphocytes # 0.7 L (1.0-4.8) k/uL Monocytes # 0.4 (0-1.0) k/uL Eosinophils # 0.0 (0-0.7) k/uL Basophils # 0.1 (0-0.2) k/uL Sodium 128 L (137-145) mmol/L Potassium 4.0 (3.5-5.1) mmol/L Chloride 97 L (98-107) mmol/L Carbon Dioxide 21 L (22-30) mmol/L Anion Gap 10 mmol/L BUN 15 (9-20) mg/dL Creatinine 1.19 (0.66-1.25) mg/dL Est GFR (CKD-EPI)AfAm 71 (>60 ml/min/1.73 sqM) Est GFR (CKD-EPI)NonAf 62 (>60 ml/min/1.73 sqM) Glucose 117 H (74-99) mg/dL Calcium 8.1 L (8.4-10.2) mg/dL Magnesium 1.5 L (1.6-2.3) mg/dL Total Bilirubin 0.4 (0.2-1.3) mg/dL AST 22 (17-59) U/L ALT 8 (4-49) U/L Alkaline Phosphatase 51 (38-126) U/L Ammonia (<30) umol/L Creatine Kinase 105 (55-170) U/L Troponin I 0.012 (0.000-0.034) ng/mL Total Protein 7.0 (6.3-8.2) g/dL Albumin 4.0 (3.5-5.0) g/dL Lipase 123 (23-300) U/L Serum Alcohol <10 mg/dL Coronavirus (PCR) (Not Detectd) Influenza Type A RNA (Not Detectd) Influenza Type B (PCR) (Not Detectd) 01/12/22 01/12/22 01/12/22 Range/Units 17:35 19:11 19:11 WBC (3.8-10.6) k/uL RBC (4.30-5.90) m/uL Hgb (13.0-17.5) gm/dL Hct (39.0-53.0) % MCV (80.0-100.0) fL MCH (25.0-35.0) pg MCHC (31.0-37.0) g/dL RDW (11.5-15.5) % Plt Count (150-450) k/uL MPV Neutrophils % % Lymphocytes % % Monocytes % % Eosinophils % % Basophils % % Neutrophils # (1.3-7.7) k/uL Lymphocytes # (1.0-4.8) k/uL Monocytes # (0-1.0) k/uL Eosinophils # (0-0.7) k/uL Basophils # (0-0.2) k/uL Sodium (137-145) mmol/L Potassium (3.5-5.1) mmol/L Chloride (98-107) mmol/L Carbon Dioxide (22-30) mmol/L Anion Gap mmol/L BUN (9-20) mg/dL Creatinine (0.66-1.25) mg/dL Est GFR (CKD-EPI)AfAm (>60 ml/min/1.73 sqM) Est GFR (CKD-EPI)NonAf (>60 ml/min/1.73 sqM) Glucose (74-99) mg/dL Calcium (8.4-10.2) mg/dL Magnesium (1.6-2.3) mg/dL Total Bilirubin (0.2-1.3) mg/dL AST (17-59) U/L ALT (4-49) U/L Alkaline Phosphatase (38-126) U/L Ammonia <9 (<30) umol/L Creatine Kinase (55-170) U/L Troponin I (0.000-0.034) ng/mL Total Protein (6.3-8.2) g/dL Albumin (3.5-5.0) g/dL Lipase (23-300) U/L Serum Alcohol mg/dL Coronavirus (PCR) Not Detected (Not Detectd) Influenza Type A RNA Detected H (Not Detectd) Influenza Type B (PCR) Not Detected (Not Detectd) - Radiology Data Radiology results: report reviewed (Imaging reviewed no acute findings), image reviewed Disposition Clinical Impression: Influenza A, Hyponatremia, Dehydration, Hypomagnesemia syndrome, Failure to thrive in adult Disposition: ADMITTED IP TO THIS [facility] Condition: Fair Referrals: Raffaele Verdin MD [Primary Care Provider] - 1-2 days Decision Date: 01/12/22 Decision Time: 20:07
[2022-01-12 17:59] LABS: Basophils # (A) 0.1 k/uL (0-0.2); Basophils % (A) 2 %; Eosinophils % (A) 0 %; HCT 37.8 % (39.0-53.0); HGB 12.1 gm/dL (13.0-17.5); Lymphocytes # (A) 0.7 k/uL (1.0-4.8); Lymphocytes % (A) 12 %; MCH 28.3 pg (25.0-35.0); MCV 88.4 fL (80.0-100.0); Mean Platelet Volume 8.5; Monocytes # (A) 0.4 k/uL (0-1.0); Monocytes % (A) 8 %; Neutrophils # (A) 4.3 k/uL (1.3-7.7); Neutrophils % (A) 77 %; RBC 4.28 m/uL (4.30-5.90); RDW 14.4 % (11.5-15.5); WBC 5.6 k/uL (3.8-10.6)
[2022-01-12 18:00] LABS: Platelet Count 89 k/uL (150-450)
[2022-01-12 18:08] LABS: ALT 8 U/L (4-49); AST 22 U/L (17-59); African American GFR (CKD) 71 (>60 ml/min/1.73 sqM); Alcohol <10 mg/dL; Alkaline Phosphatase 51 U/L (38-126); Anion Gap 10 mmol/L; Blood Urea Nitrogen 15 mg/dL (9-20); Calcium 8.1 mg/dL (8.4-10.2); Carbon Dioxide 21 mmol/L (22-30); Chloride 97 mmol/L (98-107); Creatine Kinase 105 U/L (55-170); Glucose 117 mg/dL (74-99); Lipase 123 U/L (23-300); Magnesium 1.5 mg/dL (1.6-2.3); Non-African American GFR(CKD) 62 (>60 ml/min/1.73 sqM); Sodium 128 mmol/L (137-145); Total Bilirubin 0.4 mg/dL (0.2-1.3)
[2022-01-12] MEDS ORDERED: ACETAMINOPHEN TAB 500 MG TAB PO STA (18:19)
--- NOTE | 2022-01-12 18:29 | XR ---
EXAMINATION TYPE: XR chest 2V DATE OF EXAM: 01/12/2022 6:00 PM COMPARISON: Chest radiographs from 09/03/2021 TECHNIQUE: XR chest 2V Frontal and lateral views of the chest. CLINICAL INDICATION:Male, 71 years old with history of Fever and weakness; FINDINGS: Lungs/Pleura: There is no evidence of pleural effusion, focal consolidation, or pneumothorax. Simila r increased interstitial lung markings compared to prior. Pulmonary vascularity: Unremarkable. Heart/mediastinum: Cardiomediastinal silhouette is unremarkable. Two lead cardiac conduction device o verlying the right hemithorax with lead tips projecting over the right ventricle and right atrium. Musculoskeletal: No acute osseous pathology. Midline sternotomy wires are noted and stable. IMPRESSION: Chronic changes without acute pulmonary process. No significant change from prior.
[2022-01-12] MEDS ORDERED: NALOXONE 0.4 MG/ML 1 ML VIAL IV PRN (20:08)
--- NOTE | 2022-01-12 20:08 | ED ---
Medical Decision Making - Lab Data Result diagrams: 01/12/22 17:35 01/12/22 17:35 Lab Results 01/12/22 01/12/22 01/12/22 Range/Units 17:35 17:35 17:35 WBC 5.6 (3.8-10.6) k/uL RBC 4.28 L (4.30-5.90) m/uL Hgb 12.1 L (13.0-17.5) gm/dL Hct 37.8 L (39.0-53.0) % MCV 88.4 (80.0-100.0) fL MCH 28.3 (25.0-35.0) pg MCHC 32.0 (31.0-37.0) g/dL RDW 14.4 (11.5-15.5) % Plt Count 89 L (150-450) k/uL MPV 8.5 Neutrophils % 77 % Lymphocytes % 12 % Monocytes % 8 % Eosinophils % 0 % Basophils % 2 % Neutrophils # 4.3 (1.3-7.7) k/uL Lymphocytes # 0.7 L (1.0-4.8) k/uL Monocytes # 0.4 (0-1.0) k/uL Eosinophils # 0.0 (0-0.7) k/uL Basophils # 0.1 (0-0.2) k/uL Sodium 128 L (137-145) mmol/L Potassium 4.0 (3.5-5.1) mmol/L Chloride 97 L (98-107) mmol/L Carbon Dioxide 21 L (22-30) mmol/L Anion Gap 10 mmol/L BUN 15 (9-20) mg/dL Creatinine 1.19 (0.66-1.25) mg/dL Est GFR (CKD-EPI)AfAm 71 (>60 ml/min/1.73 sqM) Est GFR (CKD-EPI)NonAf 62 (>60 ml/min/1.73 sqM) Glucose 117 H (74-99) mg/dL Calcium 8.1 L (8.4-10.2) mg/dL Magnesium 1.5 L (1.6-2.3) mg/dL Total Bilirubin 0.4 (0.2-1.3) mg/dL AST 22 (17-59) U/L ALT 8 (4-49) U/L Alkaline Phosphatase 51 (38-126) U/L Ammonia (<30) umol/L Creatine Kinase 105 (55-170) U/L Troponin I 0.012 (0.000-0.034) ng/mL Total Protein 7.0 (6.3-8.2) g/dL Albumin 4.0 (3.5-5.0) g/dL Lipase 123 (23-300) U/L Serum Alcohol <10 mg/dL Coronavirus (PCR) (Not Detectd) Influenza Type A RNA (Not Detectd) Influenza Type B (PCR) (Not Detectd) 01/12/22 01/12/22 01/12/22 Range/Units 17:35 19:11 19:11 WBC (3.8-10.6) k/uL RBC (4.30-5.90) m/uL Hgb (13.0-17.5) gm/dL Hct (39.0-53.0) % MCV (80.0-100.0) fL MCH (25.0-35.0) pg MCHC (31.0-37.0) g/dL RDW (11.5-15.5) % Plt Count (150-450) k/uL MPV Neutrophils % % Lymphocytes % % Monocytes % % Eosinophils % % Basophils % % Neutrophils # (1.3-7.7) k/uL Lymphocytes # (1.0-4.8) k/uL Monocytes # (0-1.0) k/uL Eosinophils # (0-0.7) k/uL Basophils # (0-0.2) k/uL Sodium (137-145) mmol/L Potassium (3.5-5.1) mmol/L Chloride (98-107) mmol/L Carbon Dioxide (22-30) mmol/L Anion Gap mmol/L BUN (9-20) mg/dL Creatinine (0.66-1.25) mg/dL Est GFR (CKD-EPI)AfAm (>60 ml/min/1.73 sqM) Est GFR (CKD-EPI)NonAf (>60 ml/min/1.73 sqM) Glucose (74-99) mg/dL Calcium (8.4-10.2) mg/dL Magnesium (1.6-2.3) mg/dL Total Bilirubin (0.2-1.3) mg/dL AST (17-59) U/L ALT (4-49) U/L Alkaline Phosphatase (38-126) U/L Ammonia <9 (<30) umol/L Creatine Kinase (55-170) U/L Troponin I (0.000-0.034) ng/mL Total Protein (6.3-8.2) g/dL Albumin (3.5-5.0) g/dL Lipase (23-300) U/L Serum Alcohol mg/dL Coronavirus (PCR) Not Detected (Not Detectd) Influenza Type A RNA Detected H (Not Detectd) Influenza Type B (PCR) Not Detected (Not Detectd) Disposition Clinical Impression: Influenza A, Hyponatremia, Dehydration, Hypomagnesemia syndrome, Failure to thrive in adult, Febrile illness, acute Disposition: ADMITTED IP TO THIS HOSP Condition: Fair Referrals: Raffaele Verdin MD [Primary Care Provider] - 1-2 days
[2022-01-12] MEDS ORDERED: OSELTAMIVIR 75 MG CAP PO STA (20:10)
[2022-01-12] MEDS ORDERED: IPRATROPIUM-ALBUTEROL 3 ML NEB INHALATION STA (20:19)
[2022-01-13 03:13] LABS: Appearance,Urine Clear (Clear); Bilirubin,Urine Negative (Negative); Blood,Urine Negative (Negative); Color,Urine Colorless; Glucose,Urine (UA) Negative (Negative); Ketones,Urine Negative (Negative); Leukocyte Esterase,Urine Negative (Negative); Nitrite,Urine Negative (Negative); PH, Urine 5.5 (5.0-8.0); Protein,Urine Negative (Negative); Specific Gravity,Urine 1.002 (1.001-1.035); Urobilinogen,Urine <2.0 mg/dL (<2.0)
[2022-01-13] MEDS: OSELTAMIVIR 60 MG/10 ML ORAL SYRINGE PO SCH ×2 (07:59→21:09)
[2022-01-13] MEDS ORDERED: RX INFO: IV CONTRAST WAS GIVEN 1 EACH MISC MISCELLANE PRN (16:46)
[2022-01-13] MEDS: methylPREDNISolone SOD SUCCI 40 MG/ML 1 ML VIAL IV SCH (17:40)
--- NOTE | 2022-01-13 18:34 | P.CNPUL ---
History of Present Illness Consult date: 01/13/22 Reason for consult: dyspnea, cough, COPD Chief complaint: Shortness of breath and cough for last 5 days History of present illness: Patient is a 71-year-old male long-term smoker smokes 1 pack a day lately have cut down to half pack per day he lives with her roommate he has developed symptoms of progressive cough shortness of breath and tiredness and fatigue with progressive generalized weakness for the last 5 days and also have a spiking fever up to 102 decided to come into the hospital for further evaluation. His initial chest x-ray suggestive of the chronic changes without any acute pulmonary process. EKG sinus rhythm with PVCs and non-specific changes. Computed tomography scan of the chest done hard copies reviewed, no obvious major filling defects in, medial left-sided large boluses per is seen, no active infiltrate identified, labs significant for white cell count of 5600 hemoglobin and hematocrit is 12 and 37 platelet count 89,000 labs significant for hyponatremia sodium 128 BUN/creatinine 15 1.19, LFT within normal limit, urine analysis is negative, alcohol level less than 10, influenza A is positive, magnesium is 1.5, Review of Systems All systems: negative Past Medical History Past Medical History: Coronary Artery Disease (CAD), Heart Failure, Dementia, Hyperlipidemia, Hypertension, Seizure Disorder, Syncope, Thyroid Disorder Additional Past Medical History / Comment(s): Ischemic cardiomyopathy, EF 20- 25%, last seizure about 2 yrs ago, hypothyroid.neuropathy "WHEN HE WORKED HE HAD A CRUSHING INJURY -COLLAPSED LUNGS C/T AND HAS CHRONIC BACK PAIN"" pt states he is schizophrenic/bipolar. History of Any Multi-Drug Resistant Organisms: None Reported Past Surgical History: AICD, Back Surgery, Coronary Bypass/CABG, Heart Catheter ization, Heart Catheterization With Stent Additional Past Surgical History / Comment(s): 1995 CABG 4 vessel in [place], has had 2"HEART CATHS/had 2 STENTS after cabg sx.pt stated they were done in [facility]. "sx on tailbone, cortisone injections, devin inguinal hernia repair Past Anesthesia/Blood Transfusion Reactions: No Reported Reaction Date of Last Stent Placement:: 1995 Type of Cardiac Device: AICD Device Placement Date:: [address] [facility] Past Psychological History: Anxiety, Depression, Schizoaffective Disorder, Schizophrenia Additional Psychological History / Comment(s): . Smoking Status: Current every day smoker Past Alcohol Use History: None Reported, Daily Additional Past Alcohol Use History / Comment(s): . Past Drug Use History: None Reported Additional Drug Use History / Comment(s): Pt states he smokes marijuana on occasion. - Past Family History Mother Family Medical History: Respiratory Disorder Additional Family Medical History / Comment(s): Mother had TB Father Additional Family Medical History / Comment(s): Father was an alcoholic. Medications and Allergies Home Medications Medication Instructions Recorded Confirmed Type No Known Home Medications 01/12/22 01/12/22 History Allergies Allergy/AdvReac Type Severity Reaction Status Date / Time morphine Allergy Anaphylaxis Verified 01/12/22 19:23 Penicillins Allergy Swelling Verified 01/12/22 19:23 Influenza Virus Vaccines AdvReac Unknown Verified 01/12/22 19:23 pneumococcal vaccine AdvReac Unknown Verified 01/12/22 19:23 Physical Exam Vitals: Vital Signs Temp Pulse Pulse Resp BP BP Pulse Ox 01/13/22 15:20 98.3 F 82 16 144/96 96 01/13/22 08:00 18 01/13/22 07:38 97.6 F 69 17 122/71 97 01/13/22 02:00 98.4 F 67 16 112/66 98 01/12/22 23:07 102/64 01/12/22 21:35 74 95 01/12/22 21:26 74 01/12/22 21:17 74 01/12/22 20:34 98.3 F 68 17 112/66 96 01/12/22 19:27 99.6 F Intake and Output 01/13/22 01/13/22 01/13/22 06:59 14:59 22:59 Intake Total 540 Output Total 1550 550 Balance -1010 -550 Intake: Oral 540 Output: Urine 1550 550 Other: # Voids 2 - Constitutional General appearance: average body habitus, cooperative, disheveled, mild distress - EENT Eyes: EOMI, PERRLA Ears: bilateral: normal - Neck Neck: normal ROM Carotids: bilateral: upstroke normal - Respiratory Respiratory: bilateral: CTA - Cardiovascular Rhythm: regular Heart sounds: normal: S1, S2 - Neurologic Neurologic: CNII-XII intact - Musculoskeletal Musculoskeletal: gait normal, generalized weakness, strength equal bilaterally - Psychiatric Psychiatric: A&O x's 3, appropriate affect, intact judgment & insight Results - Laboratory Findings CBC and BMP: 01/12/22 17:35 01/12/22 17:35 Abnormal lab findings: Abnormal Labs 01/12/22 01/12/22 01/12/22 17:35 17:35 19:11 RBC 4.28 L Hgb 12.1 L Hct 37.8 L Plt Count 89 L Lymphocytes # 0.7 L Sodium 128 L Chloride 97 L Carbon Dioxide 21 L Glucose 117 H Calcium 8.1 L Magnesium 1.5 L Influenza Type A RNA Detected H - Diagnostic Findings Chest x-ray: report reviewed, image reviewed CT scan - chest: pending, image reviewed Assessment and Plan Assessment: Influenza A infection Electrolyte imbalance with hyponatremia and hypomagnesemia COPD with acute exacerbation Dyslipidemia Hypertension hypertensive cardiovascular disease Seizure disorder Ischemic cardiomyopathy with baseline ejection fraction of 25-30%, status post AICD Coronary artery disease status post H 4 in 1995 and stent placement 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
--- NOTE | 2022-01-13 19:06 | CT ---
EXAMINATION TYPE: CT chest w con CT DLP: 288.7 mGycm, Automated exposure control for dose reduction was used. DATE OF EXAM: 01/13/2022 5:42 PM COMPARISON: Chest radiograph from 01/12/2021. Multiple CTs of the chest with most recent on 08/16/2021. CLINICAL INDICATION:Male, 71 years old with history of cap, Cough. TECHNIQUE: Multiple axial images were obtained through the chest following the administration of 100 cc of Isovue 300. FINDINGS: LUNGS/ PLEURA: No evidence of focal consolidation, pneumothorax or pleural effusion. Left apical bull a. Mild thickening of the interlobular septa. AIRWAY: Patent and unremarkable.. HEART: The heart is mildly enlarged for size. MEDIASTINUM: No gross evidence of adenopathy. VASCULATURE: No aortic aneurysm.No evidence for pulmonary embolus. MUSCULOSKELETAL: No acute osseous abnormalities SOFT TISSUES/LYMPH NODES: Right anterior chest wall cardiac conduction device with leads terminating in the right ventricle and atrium. LOWER NECK: No significant findings. UPPER ABDOMEN: Calcified granulomas within the liver spleen.. Trace ascites around the liver capsule. IMPRESSION: 1. No evidence for focal consolidation. 2. Cardiomegaly with mild pulmonary vascular congestion and Post CABG changes. 3. No evidence for pulmonary embolus.
[2022-01-13] MEDS: IPRATROPIUM-ALBUTEROL 3 ML NEB INHALATION SCH (20:41)
[2022-01-13] MEDS ORDERED: OSELTAMIVIR 75 MG CAP PO SCH (21:00)
[2022-01-13] MEDS: HYDROmorphone 0.5 MG/0.5 ML SYRINGE IVP PRN (21:49)
[2022-01-14] MEDS: methylPREDNISolone SOD SUCCI 40 MG/ML 1 ML VIAL IV SCH ×4 (00:17→22:54)
[2022-01-14] MEDS: IPRATROPIUM-ALBUTEROL 3 ML NEB INHALATION SCH ×4 (08:04→21:01)
[2022-01-14 09:03] LABS: Basophils # (A) 0 X 10*3/uL (0.00-0.10); Basophils % (A) 0 %; Eosinophils # (A) 0 X 10*3/uL (0.04-0.35); Eosinophils % (A) 0 %; HCT 43.1 % (39.6-50.0); HGB 14.4 g/dL (13.0-17.0); Immature Grans, Automated 0.4 %; Lymphocytes % (A) 13.4 %; MCH 28.3 pg (27.0-32.0); MCHC 33.4 g/dL (32.0-37.0); MCV 84.7 fL (80.0-97.0); Mean Platelet Volume 12.9 fL (9.5-12.2); Monocytes # (A) 0.49 X 10*3/uL (0.20-1.00); Monocytes % (A) 7.3 %; NRBC Per 100 WBC 0 /100 WBCS (0.0-0.0); Neutrophils # (A) 5.32 X 10*3/uL (1.80-7.70); Neutrophils % (A) 78.9 %; Platelet Count 131 X 10*3/uL (140-440); RBC 5.09 X 10*6/uL (4.40-5.60); RDW 14.5 % (11.5-14.5); WBC 6.74 X 10*3/uL (4.50-10.00)
[2022-01-14 09:08] LABS: African American GFR (CKD) 70.6 (60.0-200.0); Albumin 3.6 g/dL (3.8-4.9); Albumin/Globulin Ratio 1.29 (1.60-3.17); Anion Gap 10.2 mmol/L (10.00-18.00); BUN/Creat Ratio 12.5 Ratio (12.00-20.00); Calcium 8.4 mg/dL (8.7-10.3); Carbon Dioxide 20.8 mmol/L (20.0-27.5); Globulin 2.8 g/dL (1.6-3.3); Non-African American GFR(CKD) 60.9 (60.0-200.0); Total Bilirubin 0.2 mg/dL (0.30-1.20); Total Protein 6.4 g/dL (6.2-8.2)
[2022-01-14] MEDS: OSELTAMIVIR 60 MG/10 ML ORAL SYRINGE PO SCH ×2 (09:25→22:55)
--- NOTE | 2022-01-14 10:26 | HP ---
HISTORY AND PHYSICAL DATE OF SERVICE: 01/13/2022 HISTORY OF PRESENT ILLNESS: 71-year-old white male who was admitted, cough, congestion, shortness of breath. He had influenza A, admitted for respiratory distress, cough, congestion, shortness of breath. Fever about 102. CT scan of the chest reviewed shows no major filling defects despite smoking for 50 years. Labs are reviewed. He is Influenza A positive. He came in for respiratory distress and dehydration. PAST MEDICAL HISTORY: AICD, coronary artery disease, schizoaffective disorder, anxiety, depression. MEDICATIONS: Negative. FAMILY HISTORY: Mother with TB. Father alcoholic. ALLERGIES: Please see list. REVIEW OF SYMPTOMS: 14-point review of systems otherwise negative. PHYSICAL EXAMINATION: Blood pressure 112/66, temp is 98.3, pulse 34, respiratory 16 to 18. CARDIOVASCULAR S1-S2. LUNGS scattered rhonchi and wheeze. HEMATOLOGY: Negative Homans. PSYCH: Fair mood and affect. OPHTHALMOLOGIC: Pupils equal, round, reactive to light and accommodation. NEUROLOGIC: Cranial nerves intact. ASSESSMENT: 1. Acute respiratory distress secondary to influenza A infection. 2. Chronic obstructive pulmonary disease exacerbation. 3. Dyslipidemia. 4. Hypertensive cardiovascular disease. 5. Seizure disorder. 6. Ischemic cardiomyopathy. He is on no medicines, status post AICD. 7. Coronary artery disease. 8. History of schizoaffective. 9. Smoking. Tamiflu, steroid, breathing treatments. Try to get back on some semblance of home medicines as he stopped all his pills. Please see further orders. MMODL / IJN: [id number] /
[2022-01-14] MEDS: LOSARTAN 25 MG TAB PO SCH (10:43)
[2022-01-14] MEDS: ASPIRIN 81 MG PO SCH (10:43)
[2022-01-14] MEDS: carvediloL 3.125 MG TAB PO SCH ×2 (10:44→17:04)
--- NOTE | 2022-01-14 10:47 | P.CRDCN ---
History of Present Illness Consult date: 01/14/22 History of present illness: CHIEF COMPLAINT: Congestive heart failure HISTORY OF PRESENT ILLNESS: This is a 71-year-old male with a past medical history significant for coronary artery disease with previous CABG performed in [place], ischemic cardiomyopathy with AICD implantation in [place], hypertension, hyperlipidemia, congestive heart failure, and nicotine dependence. Patient does not follow with a fitter placer. We have been asked to see the patient in consultation for congestive heart failure. Patient examined at the bedside. Patient presented to the hospital with a 1 week duration of not feeling well, dizziness, fever, and chills. The patient was diagnosed with influenza. He denies any chest pain or pressure. He currently denies any significant shortness of breath. The patient states he has not been taking any of his cardiac medications on an outpatient basis because he did not think that they were helping him. * EKG reveals sinus mechanism with T wave inversions in inferior leads and V4-V6 * Chest xray chronic changes without acute pulmonary process. No significant change from prior. * CT chest: No evidence for focal consolidation. Cardiomegaly with mild pulmonary vascular congestion and post CABG changes. No evidence for pulmonary embolism. * Laboratory data: WBC 6.74. Hemoglobin 14.4. Platelet count 131. Sodium 132. Potassium 4.0. BUN 15. Creatinine 1.2. * Current home cardiac medications include none * Most recent echocardiogram obtained in August 2019 revealing ejection fracti on 40-45%, moderate MR, mild TR * Patient underwent Lexiscan stress test in June 2020 which was negative for reversible ischemia. 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 REVIEW OF SYSTEMS: Thorough review of systems not completed secondary to limited evaluation/examination due to influenza PHYSICAL EXAM: Thorough physical exam not completed secondary to limited evaluation/examination due to influenza ASSESSMENT: Acute influenza A Acute COPD exacerbation Coronary artery disease with previous CABG, exact details unknown History of ischemic myopathy with AICD implantation Hypertension Hyperlipidemia History of systolic heart failure Nicotine dependence Medication noncompliance PLAN: Obtain 2-D echo to assess cardiac structure and function Patient clinically does not appear to be in overt heart failure and symptoms are likely related to acute influenza. Obtain BNP. Begin aspirin 81 mg daily, Lipitor 40 mg at night, carvedilol 3.125 mg twice a day, and losartan 12.5 mg daily Smoking cessation recommended Further recommendations pending patient's course Nurse practitioner note has been reviewed by physician. Signing provider agrees with the documented findings, assessment, and plan of care. Past Medical History Past Medical History: Coronary Artery Disease (CAD), Heart Failure, Dementia, Hyperlipidemia, Hypertension, Seizure Disorder, Syncope, Thyroid Disorder Additional Past Medical History / Comment(s): Ischemic cardiomyopathy, EF 20- 25%, last seizure about 2 yrs ago, hypothyroid.neuropathy "WHEN HE WORKED HE HAD A CRUSHING INJURY -COLLAPSED LUNGS C/T AND HAS CHRONIC BACK PAIN"" pt states he is schizophrenic/bipolar. History of Any Multi-Drug Resistant Organisms: None Reported Past Surgical History: AICD, Back Surgery, Coronary Bypass/CABG, Heart Catheterization, Heart Catheterization With Stent Additional Past Surgical History / Comment(s): 1995 CABG 4 vessel in [place], has had 2"HEART CATHS/had 2 STENTS after cabg sx.pt stated they were done in [facility]. "sx on tailbone, cortisone injections, devin inguinal hernia repair Past Anesthesia/Blood Transfusion Reactions: No Reported Reaction Date of Last Stent Placement:: 1995 Type of Cardiac Device: AICD Device Placement Date:: 1995 in [facility] Past Psychological History: Anxiety, Depression, Schizoaffective Disorder, Schizophrenia Additional Psychological History / Comment(s): . Smoking Status: Current every day smoker Past Alcohol Use History: None Reported, Daily Additional Past Alcohol Use History / Comment(s): . Past Drug Use History: None Reported Additional Drug Use History / Comment(s): Pt states he smokes marijuana on occasion. - Past Family History Mother Family Medical History: Respiratory Disorder Additional Family Medical History / Comment(s): Mother had TB Father Additional Family Medical History / Comment(s): Father was an alcoholic. Medications and Allergies Home Medications Medication Instructions Recorded Confirmed Type No Known Home Medications 01/12/22 01/12/22 History Allergies Allergy/AdvReac Type Severity Reaction Status Date / Time morphine Allergy Anaphylaxis Verified 01/12/22 19:23 Penicillins Allergy Swelling Verified 01/12/22 19:23 Influenza Virus Vaccines AdvReac Unknown Verified 01/12/22 19:23 pneumococcal vaccine AdvReac Unknown Verified 01/12/22 19:23 Physical Exam Vitals: Vital Signs Temp Pulse Pulse Resp BP Pulse Ox 01/14/22 08:15 70 01/14/22 08:05 70 01/14/22 07:21 98 F 63 18 125/74 98 01/14/22 02:00 97.8 F 72 20 147/83 96 01/13/22 19:27 98.1 F 78 17 124/72 97 01/13/22 15:20 98.3 F 82 16 144/96 96 Intake and Output 01/13/22 01/14/22 01/14/22 22:59 06:59 14:59 Output Total 550 Balance -550 Output: Urine 550 Other: Voiding Method Urinal # Voids 2 2 # Bowel Movements 0 Results 01/14/22 06:49 01/14/22 06:49 Cardiac Enzymes 01/14/22 Range/Units 06:49 AST 22 (14-35) U/L CBC 01/14/22 Range/Units 06:49 WBC 6.74 (4.50-10.00) X 10*3/uL RBC 5.09 (4.40-5.60) X 10*6/uL Hgb 14.4 (13.0-17.0) g/dL Hct 43.1 (39.6-50.0) % Plt Count 131 L (140-440) X 10*3/uL Comprehensive Metabolic Panel 01/14/22 Range/Units 06:49 Sodium 132 L (135-145) mmol/L Potassium 4.0 (3.5-5.5) mmol/L Chloride 101 (96-109) mmol/L Carbon Dioxide 20.8 (20.0-27.5) mmol/L BUN 15.0 (9.0-27.0) mg/dL Creatinine 1.2 (0.6-1.5) mg/dL Glucose 126 H (70-110) mg/dL Calcium 8.4 L (8.7-10.3) mg/dL AST 22 (14-35) U/L ALT 6 L (10-49) U/L Alkaline Phosphatase 57 (41-126) U/L Total Protein 6.4 (6.2-8.2) g/dL Albumin 3.6 L (3.8-4.9) g/dL Current Medications Generic Name Dose Route Start Last Admin Trade Name Freq PRN Reason Stop Dose Admin Albuterol/Ipratropium 3 ml 01/13/22 20:00 01/14/22 08:04 Ipratropium-Albuterol 3 Ml Neb INHALATION 3 ml RT-QID RADHA Administration Aspirin 81 mg 01/14/22 09:45 Aspirin 81 Mg PO DAILY [facility] Atorvastatin Calcium 40 mg 01/14/22 21:00 Atorvastatin 40 Mg Tab PO HS [facility] Carvedilol 3.125 mg 01/14/22 09:45 Carvedilol 3.125 Mg Tab PO BID-W/MEALS [facility] Hydromorphone HCl 0.5 mg 01/13/22 21:40 01/13/22 21:49 Hydromorphone 0.5 Mg/0.5 Ml Syringe IVP 0.5 mg Q4HR PRN Administration Pain Losartan Potassium 12.5 mg 01/14/22 09:45 Losartan 25 Mg Tab PO DAILY [facility] Methylprednisolone Sodium Succinate 40 mg 01/13/22 16:45 01/14/22 09:25 Methylprednisolone Sod Succi 40 Mg/Ml 1 Ml Vial IV 40 mg Q8HR RADHA Administration Miscellaneous Information 1 each 01/13/22 16:46 Rx Info: Iv Contrast Was Given 1 Each Misc MISCELLANE 01/15/22 16:46 DAILY PRN Per Protocol Naloxone HCl 0.2 mg 01/12/22 20:08 Naloxone 0.4 Mg/Ml 1 Ml Vial IV Q2M PRN Opioid Reversal Oseltamivir Phosphate 30 mg 01/13/22 09:00 01/14/22 09:25 Oseltamivir 60 Mg/10 Ml Oral Syringe PO 01/17/22 09:01 30 mg Q12HR RADHA Administration Protocol Intake and Output 01/13/22 01/14/22 01/14/22 22:59 06:59 14:59 Output Total 550 Balance -550 Output: Urine 550 Other: Voiding Method Urinal # Voids 2 2 # Bowel Movements 0 01/14/22 06:49 01/14/22 06:49
--- NOTE | 2022-01-14 12:07 | CA ---
Transthoracic Echo Report Name: Magaly Morales Age: 71 Gender: M : 1950 Exam Date: 01/14/2022 09:57 Exam Location: [facility] Ht (in): 68 Wt (lb): 125 Ordering Physician: Raffaele Verdin MD Attending/Referring Phys: Tiler'S Assistant Rosa Isela Brown RDCS Procedure CPT: Indications: CAD Cardiac Hx: Technical Quality: Fair Contrast 1: Total Dose (mL): Contrast 2: Total Dose (mL): MEASUREMENTS (Male / Female) Normal Values 2D ECHO LV Diastolic Diameter PLAX 5.7 cm 4.2 - 5.9 / 3.9 - 5.3 cm LV Systolic Diameter PLAX 5.0 cm IVS Diastolic Thickness 1.1 cm 0.6 - 1.0 / 0.6 - 0.9 cm LVPW Diastolic Thickness 1.2 cm 0.6 - 1.0 / 0.6 - 0.9 cm LV Relative Wall Thickness 0.4 RV Internal Dim ED PLAX 2.9 cm LV Diastolic Volume MOD BP 123.7 cm??? 67 - 155 / 56 - 104 cm??? LV Systolic Volume MOD BP 72.9 cm??? 22 - 58 / 19 - 49 cm??? LV Ejection Fraction MOD BP 41.1 % >= 55 % LV Cardiac Index MOD BP 2016.2 cm???/min???m??? LV Diastolic Volume MOD 4C 110.0 cm??? LV Systolic Volume MOD 4C 67.2 cm??? LV Ejection Fraction MOD 4C 38.9 % LV Cardiac Index MOD 4C 1695.0 cm???/min???m??? LV Diastolic Length 4C 7.4 cm LV Systolic Length 4C 6.8 cm LV Diastolic Volume MOD 2C 131.5 cm??? LV Systolic Volume MOD 2C 77.4 cm??? LV Ejection Fraction MOD 2C 41.2 % LV Cardiac Index MOD 2C 2144.9 cm???/min???m??? LV Diastolic Length 2C 7.9 cm LV Systolic Length 2C 6.9 cm LA Volume 94.1 cm??? 18 - 58 / 22 - 52 cm??? M-MODE Aortic Root Diameter MM 2.7 cm LA Systolic Diameter MM 3.9 cm LA Ao Ratio MM 1.5 AV Cusp Separation MM 2.2 cm DOPPLER AV Peak Velocity 91.3 cm/s AV Peak Gradient 3.3 mmHg MV Area PHT 3.0 cm??? Mitral E Point Velocity 58.8 cm/s Mitral A Point Velocity 38.2 cm/s Mitral E to A Ratio 1.5 MV Deceleration Time 253.5 ms MV E' Velocity 7.5 cm/s Mitral E to MV E' Ratio 7.9 TR Peak Velocity 194.9 cm/s TR Peak Gradient 15.2 mmHg Right Ventricular Systolic Press 20.2 mmHg FINDINGS Left Ventricle Moderately increased left ventricular systolic volume. Moderate LVH. Severely decreased left ventricular ejection fraction. Left ventricular ejection fraction is estimated at 25%. Akinesis of the inferior wall. Hypokinetic lateral wall. Atypical septal wall motion due to a previous CABG. Right Ventricle Normal right ventricular size. Right ventricular systolic pressure within normal limits. Right Atrium Normal right atrial size. Left Atrium Severely increased left atrial volume. No evidence for an atrial septal defect. Mitral Valve Mitral valve thickened. Mild to moderate mitral regurgitation. Aortic Valve Trileaflet aortic valve. Thickened aortic valve without stenosis. Aortic valve sclerosis. Tricuspid Valve Mild tricuspid regurgitation. Pulmonic Valve Trace pulmonic regurgitation. Pericardium No pericardial effusion. Aorta Normal size aortic root and proximal ascending aorta. CONCLUSIONS Moderate LVH Left ventricular ejection fraction 25% Inferior akinesis and lateral hypokinesis Mild to moderate mitral regurgitation Mild tricuspid regurgitation Previewed by: Dr. Mele Smith DO (Electronically Signed) Final Date: 14 January 2022 12:06
[2022-01-14] MEDS: HYDROmorphone 0.5 MG/0.5 ML SYRINGE IVP PRN ×2 (17:07→22:26)
[2022-01-14] MEDS: ATORVASTATIN 40 MG TAB PO SCH (22:26)
--- NOTE | 2022-01-14 22:33 | P.CONS ---
History of Present Illness - Reason for Consult Consult date: 01/14/22 - History of Present Illness History of Present Illness : Patient is a 71-year male with a past medical he significant for dementia COPD current smoker, patient was brought into the ER after EMS was called and what the patient weak could not get up and was incontinent of urine and stool patient was noticed to be febrile with a temperature of 102.2 F patient complaining of feeling weak and tired complaining of shortness of breath did have a cough mild to moderate but not bring up any sputum denies any nausea no vomiting no abdominal pain or any diarrhea or presented to the hospital the patient was febrile temperature of 103 F patient was not hypoxic or need for supplemental oxygen patient did have a normal white count with some lymphopenia creatinine was normal liver exams are normal urine was negative serum alcohol was less than 10 COVID PCR was negative influenza a was detected patient did have a chest x-ray chronic change without acute pulmonary process CT of the chest no evidence of focal consolidation or PE patient has been started on Tamiflu infectious disease was consulted concerning for possible pneumonia and need for antibiotic therapy Review of system: CONSTITUTIONAL: Positive for weakness fever. EYES: No complaint. ENT: No complaint. RESPIRATORY: As per history of present illness. CARDIOVASCULAR: No complaint. GENITOURINARY: No complaint. GASTROINTESTINAL: No complaint. MUSCULOSKELETAL: No complaint. INTEGUMENTARY : No complaint. PSYCHOLOGIC: No complaint. ENDOCRINE: No complaint. NEUROLOGIC: No complaint. Past medical history : Reviewed, documented below Past surgical history : Reviewed, documented below Social history: Reviewed, documented below Medications: Reviewed, as documented below EXAMINATION: Vital sigans= Reviewed and documented below GENERAL DESCRIPTION: Elderly male lying in bed, no distress. No tachypnea or accessory muscle of respiration use. HEENT: Shows Pallor , no scleral icterus. Oral mucous membrane is dry. NECK: Trachea central, no thyromegaly. LUNGS: Unlabored breathing decrease intensity of breath sounds. No wheeze or crackle. HEART: S1, S2, regular rate and rhythm. ABDOMEN: Soft, no tenderness , guarding or rigidity EXTREMITIES: No edema feet SKIN: No rash, no masses palpable. NEUROLOGICAL: The patient is awake, alert, oriented x2, mood and affect normal. LABS AND RADIOLOGY: Patient did have a normal white count of 5.6, creatinine was 1.19, noguera PCR was negative influenza a positive chest x-ray no acute finding CT chest no consolidation no PE Assessment : Patient presented to hospital with increasing weakness increasing shortness of breath likely secondary to acute influenza A with no evidence of any secondary bacterial pneumonia in this patient chest x-ray and CT of the chest did not show any Consolidation Plan: 1-patient to continue with the Tamiflu to finish his 5-day course of therapy 2-we will check inflammatory markers 3-no need for systemic antibiotic therapy at this point 4droplet isolation We will follow on clinical condition and cultures to further adjust medication if needed Thank you for this consultation we will follow the patient along with you Past Medical History Past Medical History: Coronary Artery Disease (CAD), Heart Failure, Dementia, Hyperlipidemia, Hypertension, Seizure Disorder, Syncope, Thyroid Disorder Additional Past Medical History / Comment(s): Ischemic cardiomyopathy, EF 20- 25%, last seizure about 2 yrs ago, hypothyroid.neuropathy "WHEN HE WORKED HE HAD A CRUSHING INJURY -COLLAPSED LUNGS C/T AND HAS CHRONIC BACK PAIN"" pt states he is schizophrenic/bipolar. History of Any Multi-Drug Resistant Organisms: None Reported Past Surgical History: AICD, Back Surgery, Coronary Bypass/CABG, Heart Catheterization, Heart Catheterization With Stent Additional Past Surgical History / Comment(s): 1995 CABG 4 vessel in [place], has had 2"HEART CATHS/had 2 STENTS after cabg sx.pt stated they were done in [facility]. "sx on tailbone, cortisone injections, devin inguinal hernia repair Past Anesthesia/Blood Transfusion Reactions: No Reported Reaction Date of Last Stent Placement:: 1995 Type of Cardiac Device: AICD Device Placement Date:: 1995 in [facility] Past Psychological History: Anxiety, Depression, Schizoaffective Disorder, Schizophrenia Additional Psychological History / Comment(s): . Smoking Status: Current every day smoker Past Alcohol Use History: None Reported, Daily Additional Past Alcohol Use History / Comment(s): . Past Drug Use History: None Reported Additional Drug Use History / Comment(s): Pt states he smokes marijuana on occasion. - Past Family History Mother Family Medical History: Respiratory Disorder Additional Family Medical History / Comment(s): Mother had TB Father Additional Family Medical History / Comment(s): Father was an alcoholic. Medications and Allergies Home Medications Medication Instructions Recorded Confirmed Type No Known Home Medications 01/12/22 01/12/22 History Allergies Allergy/AdvReac Type Severity Reaction Status Date / Time morphine Allergy Anaphylaxis Verified 01/12/22 19:23 Penicillins Allergy Swelling Verified 01/12/22 19:23 Influenza Virus Vaccines AdvReac Unknown Verified 01/12/22 19:23 pneumococcal vaccine AdvReac Unknown Verified 01/12/22 19:23 Physical Exam Vitals: Vital Signs Temp Pulse Pulse Resp BP Pulse Ox 01/14/22 11:13 70 01/14/22 11:01 70 01/14/22 08:15 70 01/14/22 08:05 70 01/14/22 07:21 98 F 63 18 125/74 98 01/14/22 02:00 97.8 F 72 20 147/83 96 01/13/22 19:27 98.1 F 78 17 124/72 97 01/13/22 15:20 98.3 F 82 16 144/96 96 Intake and Output 01/13/22 01/14/22 01/14/22 22:59 06:59 14:59 Output Total 550 Balance -550 Output: Urine 550 Other: Voiding Method Urinal # Voids 2 2 # Bowel Movements 0 Results CBC & Chem 7: 01/14/22 06:49 01/14/22 06:49 Labs: Abnormal Lab Results - Last 24 Hours (Table) 01/14/22 01/14/22 Range/Units 06:49 06:49 Plt Count 131 L (140-440) X 10*3/uL MPV 12.9 H (9.5-12.2) fL Eosinophils # 0 L (0.04-0.35) X 10*3/uL Sodium 132 L (135-145) mmol/L Glucose 126 H (70-110) mg/dL Calcium 8.4 L (8.7-10.3) mg/dL Total Bilirubin 0.20 L (0.30-1.20) mg/dL ALT 6 L (10-49) U/L Albumin 3.6 L (3.8-4.9) g/dL Albumin/Globulin Ratio 1.29 L (1.60-3.17) g/dL Microbiology - Last 24 Hours (Table) 01/12/22 17:45 Blood Culture - Preliminary Blood No Growth after 24 hours 01/12/22 17:35 Blood Culture - Preliminary Blood No Growth after 24 hours
[2022-01-15] MEDS: carvediloL 3.125 MG TAB PO SCH ×2 (07:23→16:16)
[2022-01-15] MEDS: FUROSEMIDE 40 MG TAB PO SCH (07:23)
[2022-01-15] MEDS: LOSARTAN 25 MG TAB PO SCH (07:23)
[2022-01-15] MEDS: ASPIRIN 81 MG PO SCH (07:24)
[2022-01-15] MEDS: methylPREDNISolone SOD SUCCI 40 MG/ML 1 ML VIAL IV SCH ×2 (07:24→16:16)
[2022-01-15] MEDS: HYDROmorphone 0.5 MG/0.5 ML SYRINGE IVP PRN ×3 (07:29→19:37)
--- NOTE | 2022-01-15 07:30 | PN ---
PROGRESS NOTE 71-year-old white male influenza A, COPD exacerbation, cardiomyopathy, dehydration. The patient looks weak and fatigue. Protein unable to ambulate or move. Lungs scattered rhonchi and wheeze. Cardiovascular S1, S2. Extremities 2+ edema. ASSESSMENT: 1. Influenza A. 2. Chronic obstructive pulmonary disease exacerbation. 3. Dehydration. 4. Failure to thrive. Dehydration. Continue current treatment with Tamiflu, steroids, updrafts, PT/OT. Cardiology consult to read echo due to cardiomyopathy. PROGNOSIS: Guarded. MMODL / IJN: [id number] /
[2022-01-15] MEDS: OSELTAMIVIR 60 MG/10 ML ORAL SYRINGE PO SCH ×2 (08:27→21:28)
[2022-01-15] MEDS: IPRATROPIUM-ALBUTEROL 3 ML NEB INHALATION SCH ×4 (10:09→21:26)
--- NOTE | 2022-01-15 12:17 | P.PN ---
Subjective Progress Note Date: 01/15/22 CHIEF COMPLAINT: Congestive heart failure HISTORY OF PRESENT ILLNESS: This is a 71-year-old male with a past medical history significant for coronary artery disease with previous CABG performed in [place], ischemic cardiomyopathy with AICD implantation in [place], hypertension, hyperlipidemia, congestive heart failure, and nicotine dependence. 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 We have been asked to see the patient in consultation for congestive heart failure. Patient examined at the bedside. Patient presented to the hospital with a 1 week duration of not feeling well, dizziness, fever, and chills. The patient was diagnosed with influenza. He denies any chest pain or pressure. He currently denies any significant shortness of breath. The patient states he has not been taking any of his cardiac medications on an outpatient basis because he did not think that they were helping him. * EKG reveals sinus mechanism with T wave inversions in inferior leads and V4-V6 * Chest xray chronic changes without acute pulmonary process. No significant change from prior. * CT chest: No evidence for focal consolidation. Cardiomegaly with mild p ulmonary vascular congestion and post CABG changes. No evidence for pulmonary embolism. * Laboratory data: WBC 6.74. Hemoglobin 14.4. Platelet count 131. Sodium 132. Potassium 4.0. BUN 15. Creatinine 1.2. * Current home cardiac medications include none * Most recent echocardiogram obtained in August 2019 revealing ejection fraction 40-45%, moderate MR, mild TR * Patient underwent Lexiscan stress test in June 2020 which was negative for reversible ischemia. 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 01/15/2022 Patient without complaints of chest pain or pressure. Denies SOB. Reports abdominal pain this morning. Echocardiogram completed revealing ejection fraction 25%, moderate LVH, akinesis of inferior wall, hypo-any since of lateral wall, atypical septal wall motion due to previous CABG, [id number] mitral regurgitation, and mild tricuspid regurgitation PHYSICAL EXAM: Thorough physical exam not completed secondary to limited evaluation/examination due to influenza ASSESSMENT: Acute influenza A Acute COPD exacerbation Coronary artery disease with previous CABG, exact details unknown History of ischemic myopathy with AICD implantation Hypertension Hyperlipidemia Chronic systolic heart failure Nicotine dependence Medication noncompliance PLAN: Continue current cardiac medications No further inpatient recommendations from a cardiac standpoint Patient may follow up on an outpatient basis post discharge We will sign off. Please reconsult if needed. Nurse practitioner note has been reviewed by physician. Signing provider agrees with the documented findings, assessment, and plan of care. Objective - Vital Signs Vital signs: Vital Signs Temp 97.9 F 01/15/22 07:17 Pulse 58 L 01/15/22 07:17 Resp 16 01/15/22 07:17 BP 129/79 01/15/22 07:17 Pulse Ox 96 01/15/22 07:17 FiO2 Intake & Output 01/14/22 01/15/22 01/15/22 18:59 06:59 18:59 Intake Total 920 Output Total 450 Balance 470 Intake: Oral 920 Output: Urine 450 Other: Voiding Method Urinal Urinal - Labs CBC & Chem 7: 01/14/22 06:49 01/14/22 06:49 Labs: Abnormal Lab Results - Last 24 Hours (Table) 01/15/22 Range/Units 05:42 C-Reactive Protein 3.80 H (0.00-0.80) mg/dL Microbiology - Last 24 Hours (Table) 01/12/22 17:45 Blood Culture - Preliminary Blood No Growth after 48 hours 01/12/22 17:35 Blood Culture - Preliminary Blood No Growth after 48 hours
--- NOTE | 2022-01-15 18:54 | PN ---
PROGRESS NOTE This is a 71-year-old white male with a past medical history of coronary artery disease, status post CABG in [place], AICD, cardiomyopathy. He has been off all of his medicines at home. He came in with influenza A, being treated with Tamiflu, steroids and updrafts. Most recent echo showed 40% to 45% ejection fraction 2 years ago. He had a large old infarct on last stress test years ago. ASSESSMENT: 1. Acute influenza A. 2. Chronic obstructive pulmonary disease exacerbation. 3. Tracheobronchitis. 4. History of ischemic cardiomyopathy. 5. AICD. 6. Hypertension. 7. Dyslipidemia. 8. Chronic systolic heart failure. 9. Nicotine addiction. 10.Noncompliance. Continue current cardiac medicines, which are none. Wait to see what they recommend. His echo shows ejection fraction of 25% here, which is down from 40% two years ago. He has mild to moderate mitral regurgitation. He will have to follow up with Cardiology as outpatient. MMODL / IJN: [id number] /
[2022-01-15] MEDS: ATORVASTATIN 40 MG TAB PO SCH (19:37)
[2022-01-16] MEDS: HYDROmorphone 0.5 MG/0.5 ML SYRINGE IVP PRN ×3 (00:30→19:53)
[2022-01-16] MEDS: methylPREDNISolone SOD SUCCI 40 MG/ML 1 ML VIAL IV SCH ×4 (00:31→21:02)
[2022-01-16] MEDS: carvediloL 3.125 MG TAB PO SCH ×2 (07:43→17:03)
[2022-01-16] MEDS: LOSARTAN 25 MG TAB PO SCH (07:43)
[2022-01-16] MEDS: ASPIRIN 81 MG PO SCH (07:44)
[2022-01-16] MEDS: FUROSEMIDE 40 MG TAB PO SCH (07:44)
[2022-01-16] MEDS: OSELTAMIVIR 60 MG/10 ML ORAL SYRINGE PO SCH ×2 (08:04→20:15)
[2022-01-16] MEDS: IPRATROPIUM-ALBUTEROL 3 ML NEB INHALATION SCH ×4 (08:18→19:37)
--- NOTE | 2022-01-16 11:02 | PN ---
PROGRESS NOTE This 71-year-old white male was admitted with Haemophilus influenzae pneumonia, acute COPD exacerbation, tracheobronchitis, history of coronary artery disease with cardiomyopathy, ejection fraction 25%. Patient is saturating 92% on room air. Blood pressure is 130/78, pulse 64, respiratory rate 18 to 20, temperature 97.6. He is going to need to go to the half-way. His breathing is decreased. Psych poor mood and affect. Integument: Dry skin, dry mucous membranes. Poor skin turgor. Congested cough. ASSESSMENT: 1. Influenza A. 2. Tracheobronchitis versus pneumonia. 3. Chronic obstructive pulmonary disease exacerbation. 4. History of ischemic cardiomyopathy. 5. Noncompliant with all medications. Will possibly add Entresto to his regimen. His blood pressure looks good. Prognosis guarded. Please see further orders. MMODL / IJN: [id number] /
--- NOTE | 2022-01-16 16:11 | P.PN ---
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 History of regular smoking and alcohol use 01/15/2022, ongoing cough intermittently is present breathing comfortably, denies any chest pain, remains on 2 L oxygen, cardiovascular services has been following, continue to optimize therapy for heart failure Patient is a 71-year-old male long-term smoker smokes 1 pack a day lately have cut down to half pack per day he lives with her roommate he has developed symptoms of progressive cough shortness of breath and tiredness and fatigue with progressive generalized weakness for the last 5 days and also have a spiking fever up to 102 decided to come into the hospital for further evaluation. His initial chest x-ray suggestive of the chronic changes without any acute pulmonary process. EKG sinus rhythm with PVCs and non-specific changes. Computed tomography scan of the chest done hard copies reviewed, no obvious major filling defects in, medial left-sided large boluses per is seen, no active infiltrate identified, labs significant for white cell count of 5600 hemoglobin and hematocrit is 12 and 37 platelet count 89,000 labs significant for hyponatremia sodium 128 BUN/creatinine 15 1.19, LFT within normal limit, urine analysis is negative, alcohol level less than 10, influenza A is positive, magn esium is 1.5, Objective - Vital Signs Vital signs: Vital Signs Temp 97.9 F 01/15/22 07:17 Pulse 60 01/15/22 12:49 Resp 18 01/15/22 12:49 BP 129/79 01/15/22 07:17 Pulse Ox 96 01/15/22 07:17 FiO2 Intake & Output 01/14/22 01/15/22 01/15/22 18:59 06:59 18:59 Intake Total 920 Output Total 450 Balance 470 Intake: Oral 920 Output: Urine 450 Other: Voiding Method Urinal Urinal - Exam - Constitutional General appearance: average body habitus, cooperative, disheveled, mild distress - EENT Eyes: EOMI, PERRLA Ears: bilateral: normal - Neck Neck: normal ROM Carotids: bilateral: upstroke normal - Respiratory Respiratory: bilateral: CTA - Cardiovascular Rhythm: regular Heart sounds: normal: S1, S2 - Neurologic Neurologic: CNII-XII intact - Musculoskeletal Musculoskeletal: gait normal, generalized weakness, strength equal bilaterally - Psychiatric Psychiatric: A&O x's 3, appropriate affect, intact judgment & insight - Labs CBC & Chem 7: 01/14/22 06:49 01/14/22 06:49 Labs: Abnormal Lab Results - Last 24 Hours (Table) 01/15/22 Range/Units 05:42 C-Reactive Protein 3.80 H (0.00-0.80) mg/dL Microbiology - Last 24 Hours (Table) 01/12/22 17:45 Blood Culture - Preliminary Blood No Growth after 48 hours 01/12/22 17:35 Blood Culture - Preliminary Blood No Growth after 48 hours Assessment and Plan Assessment: Influenza A infection Electrolyte imbalance with hyponatremia and hypomagnesemia COPD with acute exacerbation Dyslipidemia Hypertension hypertensive cardiovascular disease Seizure disorder Ischemic cardiomyopathy with baseline ejection fraction of 25-30%, status post AICD Coronary artery disease status post H 4 in 1995 and stent placement 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
--- NOTE | 2022-01-16 16:13 | P.PN ---
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 History of regular smoking and alcohol use 01/16/2022, patient remains on 2 L oxygen, respiratory status stable, denies any cough or sputum production denies any chest pain, cardiovascular services following, patient remains on bronchodilators remains on his steroids 40 mg every 8 we'll start titrating down patient on Tamiflu as well 01/15/2022, ongoing cough intermittently is present breathing comfortably, denies any chest pain, remains on 2 L oxygen, cardiovascular services has been following, continue to optimize therapy for heart failure Patient is a 71-year-old male long-term smoker smokes 1 pack a day lately have cut down to half pack per day he lives with her roommate he has developed symptoms of progressive cough shortness of breath and tiredness and fatigue with progressive generalized weakness for the last 5 days and also have a spiking fever up to 102 decided to come into the hospital for further evaluation. His initial chest x-ray suggestive of the chronic changes without any acute pulmonary process. EKG sinus rhythm with PVCs and non-specific changes. Computed tomography scan of the chest done hard copies reviewed, no obvious major filling defects in, medial left-sided large boluses per is seen, no active infiltrate identified, labs significant for white cell count of 5600 hemoglobin and hematocrit is 12 and 37 platelet count 89,000 labs significant for hyponatremia sodium 128 BUN/creatinine 15 1.19, LFT within normal limit, urine analysis is negative, alcohol level less than 10, influenza A is positive, magnesium is 1.5, Objective - Vital Signs Vital signs: Vital Signs Temp 97.8 F 01/16/22 14:00 Pulse 65 01/16/22 15:33 Resp 17 01/16/22 14:00 BP 142/86 01/16/22 14:00 Pulse Ox 93 L 01/16/22 14:05 FiO2 Intake & Output 01/15/22 01/16/22 01/16/22 18:59 06:59 18:59 Other: Voiding Method Urinal Urinal Urinal # Voids 4 4 - Exam - Constitutional General appearance: average body habitus, cooperative, disheveled, mild distress - EENT Eyes: EOMI, PERRLA Ears: bilateral: normal - Neck Neck: normal ROM Carotids: bilateral: upstroke normal - Respiratory Respiratory: bilateral: CTA - Cardiovascular Rhythm: regular Heart sounds: normal: S1, S2 - Neurologic Neurologic: CNII-XII intact - Musculoskeletal Musculoskeletal: gait normal, generalized weakness, strength equal bilaterally - Psychiatric Psychiatric: A&O x's 3, appropriate affect, intact judgment & insight - Labs CBC & Chem 7: 01/14/22 06:49 01/14/22 06:49 Labs: Microbiology - Last 24 Hours (Table) 01/12/22 17:45 Blood Culture - Preliminary Blood No Growth after 72 hours 01/12/22 17:35 Blood Culture - Preliminary Blood No Growth after 72 hours Assessment and Plan Assessment: Influenza A infection Electrolyte imbalance with hyponatremia and hypomagnesemia COPD with acute exacerbation Dyslipidemia Hypertension hypertensive cardiovascular disease Seizure disorder Ischemic cardiomyopathy with baseline ejection fraction of 25-30%, status post AICD Coronary artery disease status post H 4 in 1995 and stent placement 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
[2022-01-16] MEDS: ATORVASTATIN 40 MG TAB PO SCH (20:15)
[2022-01-16] MEDS: SACUBITRIL/VALSARTAN 24 MG-26 MG TABLET PO SCH (20:15)
--- NOTE | 2022-01-16 22:12 | P.PN ---
Subjective Progress Note Date: 01/15/22 Principal diagnosis: Acute influenza A Patient is a 71-year-old male with past medical history significant for COPD presented to the hospital with increasing shortness of breath and some mental status changes has been diagnosed with the acute influenza A and a question of possible pneumonia. on today's evaluation with a 01/15/2022, the patient denies having any fever or any chills patient is breathing slightly comfortably he did have a congested cough , not bringing Up any sputum no nausea no vomiting no abdominal pain or any diarrhea Objective - Vital Signs Vital signs: Vital Signs Temp 97.9 F 01/15/22 07:17 Pulse 60 01/15/22 12:49 Resp 18 01/15/22 12:49 BP 129/79 01/15/22 07:17 Pulse Ox 96 01/15/22 07:17 FiO2 Intake & Output 01/14/22 01/15/22 01/15/22 18:59 06:59 18:59 Intake Total 920 Output Total 450 Balance 470 Intake: Oral 920 Output: Urine 450 Other: Voiding Method Urinal Urinal - Exam GENERAL DESCRIPTION: An elderly male lying in bed in no distress RESPIRATORY SYSTEM: Unlabored breathing , coarse breath sounds bilaterally HEART: S1 S2 regular rate and rhythm , ABDOMEN: Soft , no tenderness EXTREMITIES: No edema feet - Labs CBC & Chem 7: 01/14/22 06:49 01/14/22 06:49 Labs: Abnormal Lab Results - Last 24 Hours (Table) 01/15/22 Range/Units 05:42 C-Reactive Protein 3.80 H (0.00-0.80) mg/dL Microbiology - Last 24 Hours (Table) 01/12/22 17:45 Blood Culture - Preliminary Blood No Growth after 48 hours 01/12/22 17:35 Blood Culture - Preliminary Blood No Growth after 48 hours Assessment and Plan (1) Influenza A Current Visit: Yes Status: Acute Code(s): J10.1 - FLU DUE TO OTH IDENT INFLUENZA VIRUS W OTH RESP MANIFEST SNOMED Code(s): 700218976 Plan: 1-patient presented to hospital with increasing shortness of breath and cough in this patient has been diagnosed with acute influenza A, patient did have normal pro calcitonin and clinically not behaving as secondary bacterial pneumonia 2patient to continue with the Tamiflu and no need for systemic antibiotic therapy Time with Patient: Less than 30
--- NOTE | 2022-01-16 22:14 | P.PN ---
Subjective Progress Note Date: 01/16/22 Principal diagnosis: Acute influenza A Patient is a 71-year-old male with past medical history significant for COPD presented to the hospital with increasing shortness of breath and some mental status changes has been diagnosed with the acute influenza A and a question of possible pneumonia. on today's evaluation with a 01/16/2022, the patient remains to be afebrile, the patient is breathing comfortably on nasal cannula oxygen, denies having any chest pain he continued to have a cough but no sputum no abdominal pain or diarrhea Objective - Vital Signs Vital signs: Vital Signs Temp 97.8 F 01/16/22 14:00 Pulse 65 01/16/22 15:33 Resp 17 01/16/22 14:00 BP 142/86 01/16/22 14:00 Pulse Ox 93 L 01/16/22 14:05 FiO2 Intake & Output 01/15/22 01/16/22 01/16/22 18:59 06:59 18:59 Other: Voiding Method Urinal Urinal Urinal # Voids 4 4 - Exam GENERAL DESCRIPTION: An elderly male lying in bed in no distress RESPIRATORY SYSTEM: Unlabored breathing , coarse breath sounds bilaterally HEART: S1 S2 regular rate and rhythm , ABDOMEN: Soft , no tenderness EXTREMITIES: No edema feet - Labs CBC & Chem 7: 01/14/22 06:49 01/14/22 06:49 Labs: Microbiology - Last 24 Hours (Table) 01/12/22 17:45 Blood Culture - Preliminary Blood No Growth after 72 hours 01/12/22 17:35 Blood Culture - Preliminary Blood No Growth after 72 hours Assessment and Plan (1) Influenza A Current Visit: Yes Status: Acute Code(s): J10.1 - FLU DUE TO OTH IDENT INFLUENZA VIRUS W OTH RESP MANIFEST SNOMED Code(s): 459530439 Plan: 1-patient presented to hospital with increasing shortness of breath and cough in this patient has been diagnosed with acute influenza A, patient did have normal pro calcitonin and clinically not behaving as secondary bacterial pneumonia 2patient to continue with the Tamiflu to finish his 5 day course of therapy Time with Patient: Less than 30
[2022-01-17] MEDS: IPRATROPIUM-ALBUTEROL 3 ML NEB INHALATION SCH ×4 (07:45→19:19)
[2022-01-17] MEDS: ASPIRIN 81 MG PO SCH (08:11)
[2022-01-17] MEDS: carvediloL 3.125 MG TAB PO SCH ×2 (08:11→16:51)
[2022-01-17] MEDS: methylPREDNISolone SOD SUCCI 40 MG/ML 1 ML VIAL IV SCH ×2 (08:11→20:16)
[2022-01-17] MEDS: FUROSEMIDE 40 MG TAB PO SCH (08:11)
[2022-01-17] MEDS: HYDROmorphone 0.5 MG/0.5 ML SYRINGE IVP PRN ×2 (08:12→16:51)
[2022-01-17] MEDS: SACUBITRIL/VALSARTAN 24 MG-26 MG TABLET PO SCH ×2 (08:12→20:16)
[2022-01-17] MEDS: OSELTAMIVIR 60 MG/10 ML ORAL SYRINGE PO SCH (10:59)
--- NOTE | 2022-01-17 15:54 | PN ---
PROGRESS NOTE White male was admitted with Haemophilus infection, severe dehydration, prerenal azotemia, COPD exacerbation, possible acute influenza A pneumonia versus severe bronchospasm, bronchitis. He is still weak and fatigued, dehydrated. O2 levels 93, blood pressure 140/85, respiratory rate 16 to 18. Afebrile. Lungs show scattered wheeze and rhonchi. Heart S1, S2. Abdomen is soft. Extremities no cyanosis, clubbing, edema. Integument: Dry skin turgor, poor. Dry mucous membranes. ASSESSMENT: 1. Influenza. 2. Chronic obstructive pulmonary disease exacerbation. 3. Tracheobronchitis. 4. Dehydration. 5. Prerenal renal azotemia. 6. Worsening ischemic cardiomyopathy with noncompliance with medications. Medications were restarted by Cardiology. Continue Tamiflu. Continue cardiac medications. PT/OT. Possible rehab center. LEIF / JOE: [id number] /
[2022-01-17] MEDS: ATORVASTATIN 40 MG TAB PO SCH (20:16)
[2022-01-18] MEDS: HYDROmorphone 0.5 MG/0.5 ML SYRINGE IVP PRN ×2 (02:45→19:26)
--- NOTE | 2022-01-18 07:07 | P.PN ---
Subjective Progress Note Date: 01/17/22 Principal diagnosis: Acute influenza A Patient is a 71-year-old male with past medical history significant for COPD presented to the hospital with increasing shortness of breath and some mental status changes has been diagnosed with the acute influenza A and a question of possible pneumonia. on today's evaluation with a 01/17/2022, the patient continues to be afebrile, the patient is breathing comfortably on nasal cannula oxygen, the patient denies having any chest pain, the patient did have a congested cough but not bringing up any sputum and no abdominal pain or diarrhea Objective - Vital Signs Vital signs: Vital Signs Temp 98.3 F 01/17/22 07:46 Pulse 62 01/17/22 11:41 Resp 18 01/17/22 07:46 BP 128/82 01/17/22 07:46 Pulse Ox 93 L 01/17/22 07:46 FiO2 Intake & Output 01/16/22 01/17/22 01/17/22 18:59 06:59 18:59 Intake Total 250 Output Total 200 300 Balance -200 -50 Intake: Oral 250 Output: Urine 200 300 Other: Voiding Method Urinal Urinal Urinal # Voids 1 2 # Bowel Movements 0 - Exam GENERAL DESCRIPTION: An elderly male lying in bed in no distress RESPIRATORY SYSTEM: Unlabored breathing , coarse breath sounds bilaterally HEART: S1 S2 regular rate and rhythm , ABDOMEN: Soft , no tenderness EXTREMITIES: No edema feet - Labs CBC & Chem 7: 01/14/22 06:49 01/14/22 06:49 Labs: Microbiology - Last 24 Hours (Table) 01/12/22 17:45 Blood Culture - Preliminary Blood No Growth after 96 hours 01/12/22 17:35 Blood Culture - Preliminary Blood No Growth after 96 hours Assessment and Plan (1) Influenza A Current Visit: Yes Status: Acute Code(s): J10.1 - FLU DUE TO OTH IDENT INFLUENZA VIRUS W OTH RESP MANIFEST SNOMED Code(s): 868759764 Plan: 1-patient presented to hospital with increasing shortness of breath and cough in this patient has been diagnosed with acute influenza A, patient did have normal pro calcitonin and clinically not behaving as secondary bacterial pneumonia 2patient did have some clinical improvement and will continue with the Tamiflu to finish his 5 day course of therapy Time with Patient: Less than 30
[2022-01-18] MEDS: FUROSEMIDE 40 MG TAB PO SCH (08:25)
[2022-01-18] MEDS: methylPREDNISolone SOD SUCCI 40 MG/ML 1 ML VIAL IV SCH ×2 (08:25→19:28)
[2022-01-18] MEDS: SACUBITRIL/VALSARTAN 24 MG-26 MG TABLET PO SCH ×2 (08:25→19:29)
[2022-01-18] MEDS: ASPIRIN 81 MG PO SCH (08:25)
[2022-01-18] MEDS: carvediloL 3.125 MG TAB PO SCH ×2 (08:25→16:52)
[2022-01-18] MEDS: IPRATROPIUM-ALBUTEROL 3 ML NEB INHALATION SCH ×4 (08:43→21:02)
[2022-01-18 08:46] LABS: Basophils # (A) 0.02 X 10*3/uL (0.00-0.10); Basophils % (A) 0.2 %; Eosinophils # (A) 0 X 10*3/uL (0.04-0.35); Eosinophils % (A) 0 %; HCT 45.9 % (39.6-50.0); Immature Grans, Automated 0.4 %; Lymphocytes # (A) 1.53 X 10*3/uL (0.90-5.00); Lymphocytes % (A) 11.5 %; MCH 27.6 pg (27.0-32.0); MCHC 32.7 g/dL (32.0-37.0); MCV 84.4 fL (80.0-97.0); Mean Platelet Volume 12.3 fL (9.5-12.2); Monocytes # (A) 0.62 X 10*3/uL (0.20-1.00); Monocytes % (A) 4.7 %; NRBC Per 100 WBC 0 /100 WBCS (0.0-0.0); Neutrophils # (A) 11.11 X 10*3/uL (1.80-7.70); Neutrophils % (A) 83.2 %; Platelet Count 141 X 10*3/uL (140-440); RBC 5.44 X 10*6/uL (4.40-5.60); RDW 14.5 % (11.5-14.5); WBC 13.33 X 10*3/uL (4.50-10.00)
[2022-01-18 09:37] LABS: Albumin 3.6 g/dL (3.8-4.9); Albumin/Globulin Ratio 1.24 (1.60-3.17); Anion Gap 13.4 mmol/L (10.00-18.00); BUN/Creat Ratio 35.5 Ratio (12.00-20.00); Blood Urea Nitrogen 35.5 mg/dL (9.0-27.0); Calcium 8.3 mg/dL (8.7-10.3); Carbon Dioxide 22.6 mmol/L (20.0-27.5); Globulin 2.9 g/dL (1.6-3.3); Non-African American GFR(CKD) 75.9 (60.0-200.0); Potassium 4.2 mmol/L (3.5-5.5); Total Bilirubin 0.3 mg/dL (0.30-1.20); Total Protein 6.5 g/dL (6.2-8.2)
--- NOTE | 2022-01-18 17:16 | P.PN ---
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 History of regular smoking and alcohol use 01/17/2022, patient seen eval examined during the rounds labs reviewed medications reviewed, patient remains afebrile, on 2 L oxygen via nasal cannula denies any chest pain or shortness of breath denies any cough or sputum production no history of diarrhea or loose stool, oxygen saturation 90% to 93% 01/16/2022, patient remains on 2 L oxygen, respiratory status stable, denies any cough or sputum production denies any chest pain, cardiovascular services following, patient remains on bronchodilators remains on his steroids 40 mg every 8 we'll start titrating down patient on Tamiflu as well 01/15/2022, ongoing cough intermittently is present breathing comfortably, denies any chest pain, remains on 2 L oxygen, cardiovascular services has been following, continue to optimize therapy for heart failure Patient is a 71-year-old male long-term smoker smokes 1 pack a day lately have cut down to half pack per day he lives with her roommate he has developed symptoms of progressive cough shortness of breath and tiredness and fatigue with progressive generalized weakness for the last 5 days and also have a spiking fever up to 102 decided to come into the hospital for further evaluation. His initial chest x-ray suggestive of the chronic changes without any acute pulmonary process. EKG sinus rhythm with PVCs and non-specific changes. Computed tomography scan of the chest done hard copies reviewed, no obvious major filling defects in, medial left-sided large boluses per is seen, no active infiltrate identified, labs significant for white cell count of 5600 hemoglobin and hematocrit is 12 and 37 platelet count 89,000 labs significant for hyponatremia sodium 128 BUN/creatinine 15 1.19, LFT within normal limit, urine analysis is negative, alcohol level less than 10, influenza A is positive, magnesium is 1.5, Objective - Vital Signs Vital signs: Vital Signs Temp 98.3 F 01/17/22 07:46 Pulse 68 01/17/22 07:56 Resp 18 01/17/22 07:46 BP 128/82 01/17/22 07:46 Pulse Ox 93 L 01/17/22 07:46 FiO2 Intake & Output 01/16/22 01/17/22 01/17/22 18:59 06:59 18:59 Intake Total 250 Output Total 200 300 Balance -200 -50 Intake: Oral 250 Output: Urine 200 300 Other: Voiding Method Urinal Urinal # Voids 1 2 # Bowel Movements 0 - Exam - Constitutional General appearance: average body habitus, cooperative, disheveled, mild distress - EENT Eyes: EOMI, PERRLA Ears: bilateral: normal - Neck Neck: normal ROM Carotids: bilateral: upstroke normal - Respiratory Respiratory: bilateral: CTA - Cardiovascular Rhythm: regular Heart sounds: normal: S1, S2 - Neurologic Neurologic: CNII-XII intact - Musculoskeletal Musculoskeletal: gait normal, generalized weakness, strength equal bilaterally - Psychiatric Psychiatric: A&O x's 3, appropriate affect, intact judgment & insight - Labs CBC & Chem 7: 01/18/22 05:55 01/18/22 05:55 Labs: Microbiology - Last 24 Hours (Table) 01/12/22 17:45 Blood Culture - Preliminary Blood No Growth after 96 hours 01/12/22 17:35 Blood Culture - Preliminary Blood No Growth after 96 hours Assessment and Plan Assessment: Influenza A infection Electrolyte imbalance with hyponatremia and hypomagnesemia COPD with acute exacerbation Dyslipidemia Hypertension hypertensive cardiovascular disease Seizure disorder Ischemic cardiomyopathy with baseline ejection fraction of 25-30%, status post AICD Coronary artery disease status post H 4 in 1995 and stent placement 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
--- NOTE | 2022-01-18 17:18 | P.PN ---
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 History of regular smoking and alcohol use 01/18/2022, patient seen and evaluated examined during the rounds, breathing comfortably oxygen saturation 94% room air, hemodynamic status stable remains afebrile no specific complaints mild shortness of breath on activity is present but no chest pain or cough or sputum production 01/17/2022, patient seen eval examined during the rounds labs reviewed medications reviewed, patient remains afebrile, on 2 L oxygen via nasal cannula denies any chest pain or shortness of breath denies any cough or sputum producti on no history of diarrhea or loose stool, oxygen saturation 90% to 93% 01/16/2022, patient remains on 2 L oxygen, respiratory status stable, denies any cough or sputum production denies any chest pain, cardiovascular services following, patient remains on bronchodilators remains on his steroids 40 mg every 8 we'll start titrating down patient on Tamiflu as well 01/15/2022, ongoing cough intermittently is present breathing comfortably, denies any chest pain, remains on 2 L oxygen, cardiovascular services has been following, continue to optimize therapy for heart failure Patient is a 71-year-old male long-term smoker smokes 1 pack a day lately have cut down to half pack per day he lives with her roommate he has developed symptoms of progressive cough shortness of breath and tiredness and fatigue with progressive generalized weakness for the last 5 days and also have a spiking fever up to 102 decided to come into the hospital for further evaluation. His initial chest x-ray suggestive of the chronic changes without any acute pulmonary process. EKG sinus rhythm with PVCs and non-specific changes. Computed tomography scan of the chest done hard copies reviewed, no obvious major filling defects in, medial left-sided large boluses per is seen, no active infiltrate identified, labs significant for white cell count of 5600 hemoglobin and hematocrit is 12 and 37 platelet count 89,000 labs significant for hyponatremia sodium 128 BUN/creatinine 15 1.19, LFT within normal limit, urine analysis is negative, alcohol level less than 10, influenza A is positive, magnesium is 1.5, Objective - Vital Signs Vital signs: Vital Signs Temp 98.0 F 01/18/22 14:00 Pulse 64 01/18/22 16:50 Resp 18 01/18/22 08:26 BP 124/83 01/18/22 14:00 Pulse Ox 94 L 01/18/22 14:00 FiO2 Intake & Output 01/17/22 01/18/22 01/18/22 18:59 06:59 18:59 Intake Total 200 Balance 200 Intake: Oral 200 Other: Voiding Method Urinal Urinal Urinal # Voids 5 3 - Exam - Constitutional General appearance: average body habitus, cooperative, disheveled, mild distress - EENT Eyes: EOMI, PERRLA Ears: bilateral: normal - Neck Neck: normal ROM Carotids: bilateral: upstroke normal - Respiratory Respiratory: bilateral: CTA - Cardiovascular Rhythm: regular Heart sounds: normal: S1, S2 - Neurologic Neurologic: CNII-XII intact - Musculoskeletal Musculoskeletal: gait normal, generalized weakness, strength equal bilaterally - Psychiatric Psychiatric: A&O x's 3, appropriate affect, intact judgment & insight - Labs CBC & Chem 7: 01/18/22 05:55 01/18/22 05:55 Labs: Abnormal Lab Results - Last 24 Hours (Table) 01/18/22 01/18/22 Range/Units 05:55 05:55 WBC 13.33 H (4.50-10.00) X 10*3/uL MPV 12.3 H (9.5-12.2) fL Immature Gran # 0.05 H (0.00-0.04) X 10*3/uL Neutrophils # 11.11 H (1.80-7.70) X 10*3/uL Eosinophils # 0 L (0.04-0.35) X 10*3/uL Sodium 133 L (135-145) mmol/L BUN 35.5 H (9.0-27.0) mg/dL BUN/Creatinine Ratio 35.50 H (12.00-20.00) Ratio Glucose 179 H (70-110) mg/dL Calcium 8.3 L (8.7-10.3) mg/dL ALT 6 L (10-49) U/L Albumin 3.6 L (3.8-4.9) g/dL Albumin/Globulin Ratio 1.24 L (1.60-3.17) g/dL Microbiology - Last 24 Hours (Table) 01/12/22 17:45 Blood Culture - Preliminary Blood No Growth after 120 hours 01/12/22 17:35 Blood Culture - Preliminary Blood No Growth after 120 hours Assessment and Plan Assessment: Influenza A infection Electrolyte imbalance with hyponatremia and hypomagnesemia COPD with acute exacerbation Dyslipidemia Hypertension hypertensive cardiovascular disease Seizure disorder Ischemic cardiomyopathy with baseline ejection fraction of 25-30%, status post AICD Coronary artery disease status post H 4 in 1995 and stent placement 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
[2022-01-18] MEDS: ATORVASTATIN 40 MG TAB PO SCH (19:28)
[2022-01-19] MEDS: HYDROmorphone 0.5 MG/0.5 ML SYRINGE IVP PRN ×3 (00:27→17:57)
[2022-01-19] MEDS: SACUBITRIL/VALSARTAN 24 MG-26 MG TABLET PO SCH ×2 (08:09→20:16)
[2022-01-19] MEDS: ASPIRIN 81 MG PO SCH (08:09)
[2022-01-19] MEDS: carvediloL 3.125 MG TAB PO SCH ×2 (08:09→20:16)
[2022-01-19] MEDS: methylPREDNISolone SOD SUCCI 40 MG/ML 1 ML VIAL IV SCH (08:09)
[2022-01-19] MEDS: FUROSEMIDE 40 MG TAB PO SCH (08:09)
[2022-01-19] MEDS: IPRATROPIUM-ALBUTEROL 3 ML NEB INHALATION SCH ×4 (08:42→19:31)
--- NOTE | 2022-01-19 10:21 | PN ---
PROGRESS NOTE This 71-year-old white male has influenza, pneumonia, tracheobronchitis. Lungs have scattered rhonchi and wheeze. Cardiovascular S1, S2. Hematology negative Homans. Psych fair mood and affect. ASSESSMENT: 1. Influenza A. 2. Dehydration. 3. Failure to thrive. Continue with PT, OT, Tamiflu, fluids, Solu-Medrol. 1. Nonischemic cardiomyopathy. Continue with beta blockers, ADY inhibitor, etc. Prognosis guarded. MMODL / IJN: [id number] /
--- NOTE | 2022-01-19 14:33 | PN ---
PROGRESS NOTE This is a 71-year-old white male. We placed him on Entresto for systolic heart failure of significant nature. He is on Coreg, Lipitor, aspirin, DuoNeb. His breathing has improved. He is on IV Solu-Medrol and he took Tamiflu for H flu. He is getting stronger on his feet. He is starting to move better. Will get him into a rehab center. He thinks he needs to go to the rehab center because he does not feel good and has no strength. Will get PT/OT involved and try to get him into a rehab center. Lungs show scattered rhonchi and wheeze. Cardiovascular S1-S2. Hematology negative Homans. Psych fair mood and affect. Prognosis is guarded. Please see further orders. MMODL / IJN: [id number] /
--- NOTE | 2022-01-19 17:31 | P.PN ---
Subjective Progress Note Date: 01/19/22 Principal diagnosis: Influenza A infection Electrolyte imbalance with hyponatremia and hypomagnesemia COPD with acute exacerbation Dyslipidemia Hypertension hypertensive cardiovascular disease Seizure disorder Ischemic cardiomyopathy with baseline ejection fraction of 25-30%, status post AICD Coronary artery disease status post H 4 in 1995 and stent placement His schizophrenia and size are effective disorder History of regular smoking and alcohol use 01/19/2022, patient seen eval examined during the rounds labs reviewed medications reviewed patient remains on room air breathing comfortably denies any chest pain labs medications have been reviewed, patient has been switched to Medrol dosepak tolerating well, remains on bronchodilator and continuation of home medications with gentle diuresis 01/18/2022, patient seen and evaluated examined during the rounds, breathing comfortably oxygen saturation 94% room air, hemodynamic status stable remains afebrile no specific complaints mild shortness of breath on activity is present but no chest pain or cough or sputum production 01/17/2022, patient seen eval examined during the rounds labs reviewed medications reviewed, patient remains afebrile, on 2 L oxygen via nasal cannula denies any chest pain or shortness of breath denies any cough or sputum production no history of diarrhea or loose stool, oxygen saturation 90% to 93% 01/16/2022, patient remains on 2 L oxygen, respiratory status stable, denies any cough or sputum production denies any chest pain, cardiovascular services following, patient remains on bronchodilators remains on his steroids 40 mg every 8 we'll start titrating down patient on Tamiflu as well 01/15/2022, ongoing cough intermittently is present breathing comfortably, denies any chest pain, remains on 2 L oxygen, cardiovascular services has been following, continue to optimize therapy for heart failure Patient is a 71-year-old male long-term smoker smokes 1 pack a day lately have cut down to half pack per day he lives with her roommate he has developed symptoms of progressive cough shortness of breath and tiredness and fatigue with progressive generalized weakness for the last 5 days and also have a spiking fever up to 102 decided to come into the hospital for further evaluation. His initial chest x-ray suggestive of the chronic changes without any acute pulmonary process. EKG sinus rhythm with PVCs and non-specific changes. Computed tomography scan of the chest done hard copies reviewed, no obvious major filling defects in, medial left-sided large boluses per is seen, no active infiltrate identified, labs significant for white cell count of 5600 hemoglobin and hematocrit is 12 and 37 platelet count 89,000 labs significant for hyponatremia sodium 128 BUN/creatinine 15 1.19, LFT within normal limit, urine analysis is negative, alcohol level less than 10, influenza A is positive, magnesium is 1.5, Objective - Vital Signs Vital signs: Vital Signs Temp 97.7 F 01/19/22 14:00 Pulse 64 01/19/22 15:54 Resp 14 01/19/22 14:00 BP 120/77 01/19/22 14:00 Pulse Ox 91 L 01/19/22 14:00 FiO2 Intake & Output 01/18/22 01/19/22 01/19/22 18:59 06:59 18:59 Intake Total 120 Balance 120 Intake: Oral 120 Other: Voiding Method Urinal Toilet # Voids 2 - Exam - Constitutional General appearance: average body habitus, cooperative, disheveled, mild distress - EENT Eyes: EOMI, PERRLA Ears: bilateral: normal - Neck Neck: normal ROM Carotids: bilateral: upstroke normal - Respiratory Respiratory: bilateral: CTA - Cardiovascular Rhythm: regular Heart sounds: normal: S1, S2 - Neurologic Neurologic: CNII-XII intact - Musculoskeletal Musculoskeletal: gait normal, generalized weakness, strength equal bilaterally - Psychiatric Psychiatric: A&O x's 3, appropriate affect, intact judgment & insight - Labs CBC & Chem 7: 01/18/22 05:55 01/18/22 05:55 Labs: Microbiology - Last 24 Hours (Table) 01/12/22 17:45 Blood Culture - Final Blood No Growth after 144 hours 01/12/22 17:35 Blood Culture - Final Blood No Growth after 144 hours Assessment and Plan Assessment: Influenza A infection Electrolyte imbalance with hyponatremia and hypomagnesemia COPD with acute exacerbation Dyslipidemia Hypertension hypertensive cardiovascular disease Seizure disorder Ischemic cardiomyopathy with baseline ejection fraction of 25-30%, status post AICD Coronary artery disease status post H 4 in 1995 and stent placement His schizophrenia and size are effective disorder History of regular smoking and alcohol use Plan: By mouth tapering steroids Breathing treatment Status post Course of Tamiflu Continuation of home medicines Further recommendations pending as per clinical response of the patient Time with Patient: Greater than 30
[2022-01-19 17:32] VITALS: BMI 19.0
[2022-01-19] MEDS: methylPREDNISolone 4 MG TAB TAPER PO SCH (17:56)
[2022-01-19] MEDS: ATORVASTATIN 40 MG TAB PO SCH (20:16)
[2022-01-20] MEDS: IPRATROPIUM-ALBUTEROL 3 ML NEB INHALATION SCH ×4 (07:33→20:29)
--- NOTE | 2022-01-20 07:33 | P.PN ---
Subjective Progress Note Date: 01/18/22 Principal diagnosis: Acute influenza A Patient is a 71-year-old male with past medical history significant for COPD presented to the hospital with increasing shortness of breath and some mental status changes has been diagnosed with the acute influenza A and a question of possible pneumonia. on today's evaluation with a 01/18/2022, the patient remains to be afebrile, the patient is breathing comfortably on nasal cannula oxygen, the patient denies having any chest pain, the patient did have a congested cough but not applicable to bringing up any sputum, patient denies abdominal pain or diarrhea Objective - Vital Signs Vital signs: Vital Signs Temp 98.1 F 01/18/22 08:00 Pulse 68 01/18/22 12:33 Resp 18 01/18/22 08:26 BP 121/71 01/18/22 08:00 Pulse Ox 93 L 01/18/22 08:00 FiO2 Intake & Output 01/17/22 01/18/22 01/18/22 18:59 06:59 18:59 Intake Total 200 Balance 200 Intake: Oral 200 Other: Voiding Method Urinal Urinal Urinal # Voids 5 3 - Exam GENERAL DESCRIPTION: An elderly male lying in bed in no distress RESPIRATORY SYSTEM: Unlabored breathing , coarse breath sounds bilaterally HEART: S1 S2 regular rate and rhythm , ABDOMEN: Soft , no tenderness EXTREMITIES: No edema feet - Labs CBC & Chem 7: 01/18/22 05:55 01/18/22 05:55 Labs: Abnormal Lab Results - Last 24 Hours (Table) 01/18/22 01/18/22 Range/Units 05:55 05:55 WBC 13.33 H (4.50-10.00) X 10*3/uL MPV 12.3 H (9.5-12.2) fL Immature Gran # 0.05 H (0.00-0.04) X 10*3/uL Neutrophils # 11.11 H (1.80-7.70) X 10*3/uL Eosinophils # 0 L (0.04-0.35) X 10*3/uL Sodium 133 L (135-145) mmol/L BUN 35.5 H (9.0-27.0) mg/dL BUN/Creatinine Ratio 35.50 H (12.00-20.00) Ratio Glucose 179 H (70-110) mg/dL Calcium 8.3 L (8.7-10.3) mg/dL ALT 6 L (10-49) U/L Albumin 3.6 L (3.8-4.9) g/dL Albumin/Globulin Ratio 1.24 L (1.60-3.17) g/dL Microbiology - Last 24 Hours (Table) 01/12/22 17:45 Blood Culture - Preliminary Blood No Growth after 120 hours 01/12/22 17:35 Blood Culture - Preliminary Blood No Growth after 120 hours Assessment and Plan (1) Influenza A Current Visit: Yes Status: Acute Code(s): J10.1 - FLU DUE TO OTH IDENT INFLUENZA VIRUS W OTH RESP MANIFEST SNOMED Code(s): 920453574 Plan: 1-patient presented to hospital with increasing shortness of breath and cough in this patient has been diagnosed with acute influenza A, patient did have normal pro calcitonin and clinically not behaving as secondary bacterial pneumonia 2patient slowly clinically improving and has completed his 5 day course of Tamiflu will monitor closely Time with Patient: Less than 30
--- NOTE | 2022-01-20 07:35 | P.PN ---
Subjective Progress Note Date: 01/19/22 Principal diagnosis: Acute influenza A Patient is a 71-year-old male with past medical history significant for COPD presented to the hospital with increasing shortness of breath and some mental status changes has been diagnosed with the acute influenza A and a question of possible pneumonia. on today's evaluation with a 01/19/2022, the patient continues to be afebrile, the patient is breathing comfortably on room air, the patient denies having any chest pain, the patient continued to have a congested cough but no sputum production, patient denies abdominal pain or diarrhea Objective - Vital Signs Vital signs: Vital Signs Temp 97.6 F 01/19/22 08:00 Pulse 64 01/19/22 08:52 Resp 22 01/19/22 08:10 BP 102/66 01/19/22 08:00 Pulse Ox 90 L 01/19/22 08:00 FiO2 Intake & Output 01/18/22 01/19/22 01/19/22 18:59 06:59 18:59 Intake Total 120 Balance 120 Intake: Oral 120 Other: Voiding Method Urinal Toilet # Voids 2 - Exam GENERAL DESCRIPTION: An elderly male lying in bed in no distress RESPIRATORY SYSTEM: Unlabored breathing , coarse breath sounds bilaterally HEART: S1 S2 regular rate and rhythm , ABDOMEN: Soft , no tenderness EXTREMITIES: No edema feet - Labs CBC & Chem 7: 01/18/22 05:55 01/18/22 05:55 Labs: Microbiology - Last 24 Hours (Table) 01/12/22 17:45 Blood Culture - Final Blood No Growth after 144 hours 01/12/22 17:35 Blood Culture - Final Blood No Growth after 144 hours Assessment and Plan (1) Influenza A Current Visit: Yes Status: Acute Code(s): J10.1 - FLU DUE TO OTH IDENT INFLUENZA VIRUS W OTH RESP MANIFEST SNOMED Code(s): 919634079 Plan: 1-patient presented to hospital with increasing shortness of breath and cough in this patient has been diagnosed with acute influenza A, patient did have normal pro calcitonin and clinically not behaving as secondary bacterial pneumonia 2patient [place] clinical improvement and completed Tamiflu however he did have slightly elevated white count we will repeat his CRP pro calcitonin and a chest x-ray Time with Patient: Less than 30
[2022-01-20] MEDS: methylPREDNISolone 4 MG TAB TAPER PO SCH (08:24)
[2022-01-20] MEDS: ASPIRIN 81 MG PO SCH (08:24)
[2022-01-20] MEDS: carvediloL 3.125 MG TAB PO SCH ×2 (08:24→18:39)
[2022-01-20] MEDS: SACUBITRIL/VALSARTAN 24 MG-26 MG TABLET PO SCH ×2 (08:24→22:18)
[2022-01-20] MEDS: FUROSEMIDE 40 MG TAB PO SCH (08:24)
--- NOTE | 2022-01-20 09:26 | XR ---
EXAMINATION TYPE: XR chest 1V DATE OF EXAM: 01/20/2022 COMPARISON: 01/12/2022 HISTORY: SOB, Follow Up FINDINGS: Indwelling tubes and catheters are unchanged. No change in bibasilar opacities. Stable appearance of the cardio-mediastinal structures at this time. Pleural effusion unchanged. IMPRESSION: 1. Stable portable chest. Clinical correlation and follow up until resolution is recommended.
[2022-01-20 10:11] LABS: African American GFR (CKD) 78 (>60 ml/min/1.73 sqM); Anion Gap 11 mmol/L; Blood Urea Nitrogen 46 mg/dL (9-20); Calcium 8.1 mg/dL (8.4-10.2); Carbon Dioxide 24 mmol/L (22-30); Chloride 95 mmol/L (98-107); Glucose 152 mg/dL (74-99); Non-African American GFR(CKD) 68 (>60 ml/min/1.73 sqM); Potassium 4.2 mmol/L (3.5-5.1); Sodium 130 mmol/L (137-145)
[2022-01-20 10:27] LABS: C Reactive Protein 1.1 mg/dL (<1.0)
[2022-01-20 10:29] LABS: Basophils # (A) 0.1 k/uL (0-0.2); Basophils % (A) 0 %; Eosinophils % (A) 0 %; HCT 49.9 % (39.0-53.0); Lymphocytes # (A) 1.5 k/uL (1.0-4.8); Lymphocytes % (A) 10 %; MCH 29.4 pg (25.0-35.0); MCV 89.1 fL (80.0-100.0); Mean Platelet Volume 9.5; Monocytes # (A) 0.6 k/uL (0-1.0); Monocytes % (A) 4 %; Neutrophils # (A) 12.2 k/uL (1.3-7.7); Neutrophils % (A) 84 %; RDW 14.9 % (11.5-15.5); WBC 14.5 k/uL (3.8-10.6)
[2022-01-20 10:31] LABS: HGB 16.4 gm/dL (13.0-17.5); Platelet Count 162 k/uL (150-450)
--- NOTE | 2022-01-20 11:33 | CDI ---
Documentation Clarification Form Date: 01/20/2022 11:17:32 AM From: Kathy Samuels RN CCDS Admit Date: 01/12/2022 08:08:00 PM Patient Name: Magaly Morales Visit Number: [id number] Discharge Date: ATTENTION: The Clinical Documentation Specialists (CDI) and [facility] Coding Staff appreciate your assistance in clarifying documentation. Please respond to the clarification below the line at the bottom and electronically sign. The CDI & [facility] Coding staff will review the response and follow-up if needed. Please note: Queries are made part of the Legal Health Record. If you have any questions, please contact the author of this message via ITS. Dr. Raffaele Verdin There is documentation of Failure to Thrive 01/14, Medicine progress notes. Additional clarification is requested. History/Risk Factors: 71 y/o male presents to the ED for cough, congestion and shortness of breath. Medical history: AICD, CAD and Schizoaffective disorder. Clinical Indicators: RD Consult Assessment: Current BMI: 19.0kg Nutritional intake: Fair, 25-50% consumed Anthropometrics: Hgt 5ft 8in, BMI 19.0, BMI Classification: underweight. Estimated Nutritional Needs In Kcals: Energy formula for estimated nutritional needs 25-30Kcals/Kg. Estimated protein needs: Estimated protein 1.0 -1.2 grams/kg. Estimated fluid needs: Fluid formula 1ml/Kcal Estimated fluid needs mls /day 1750-2100ml Nutritional Diagnosis : Inadequate oral intake, related to decreased appetite. Treatment: Dietary Consult: See above Supplements:01/19 Ensure Enlive BID LABS: Chemistry Is there an additional diagnosis that is clinically appropriate for this patient? [ ] Severe Protein-Calorie Malnutrition [ ] Other condition, please specify [ ] Unable to Determine (Template Last Revised: October 2020) MTDD
[2022-01-20] MEDS: HYDROcodone/APAP 5-325MG 1 EACH TAB PO PRN ×2 (12:32→20:42)
--- NOTE | 2022-01-20 16:09 | P.PN ---
Subjective Progress Note Date: 01/20/22 Principal diagnosis: Influenza A infection Electrolyte imbalance with hyponatremia and hypomagnesemia COPD with acute exacerbation Dyslipidemia Hypertension hypertensive cardiovascular disease Seizure disorder Ischemic cardiomyopathy with baseline ejection fraction of 25-30%, status post AICD Coronary artery disease status post H 4 in 1995 and stent placement His schizophrenia and size are effective disorder History of regular smoking and alcohol use 01/20/2022, patient seen eval examined during the rounds labs reviewed medications reviewed care plan discussed, respirator status remains stable denies any chest pain shortness of breath, breathing more comfortably patient the being diuresed now at room air saturations are stable 01/19/2022, patient seen eval examined during the rounds labs reviewed medications reviewed patient remains on room air breathing comfortably denies any chest pain labs medications have been reviewed, patient has been switched to Medrol dosepak tolerating well, remains on bronchodilator and continuation of home medications with gentle diuresis 01/18/2022, patient seen and evaluated examined during the rounds, breathing comfortably oxygen saturation 94% room air, hemodynamic status stable remains afebrile no specific complaints mild shortness of breath on activity is present but no chest pain or cough or sputum production 01/17/2022, patient seen eval examined during the rounds labs reviewed medications reviewed, patient remains afebrile, on 2 L oxygen via nasal cannula denies any chest pain or shortness of breath denies any cough or sputum production no history of diarrhea or loose stool, oxygen saturation 90% to 93% 01/16/2022, patient remains on 2 L oxygen, respiratory status stable, denies any cough or sputum production denies any chest pain, cardiovascular services following, patient remains on bronchodilators remains on his steroids 40 mg every 8 we'll start titrating down patient on Tamiflu as well 01/15/2022, ongoing cough intermittently is present breathing comfortably, denies any chest pain, remains on 2 L oxygen, cardiovascular services has been following, continue to optimize therapy for heart failure Patient is a 71-year-old male long-term smoker smokes 1 pack a day lately have cut down to half pack per day he lives with her roommate he has developed symptoms of progressive cough shortness of breath and tiredness and fatigue with progressive generalized weakness for the last 5 days and also have a spiking fever up to 102 decided to come into the hospital for further evaluation. His i nitial chest x-ray suggestive of the chronic changes without any acute pulmonary process. EKG sinus rhythm with PVCs and non-specific changes. Computed tomography scan of the chest done hard copies reviewed, no obvious major filling defects in, medial left-sided large boluses per is seen, no active infiltrate identified, labs significant for white cell count of 5600 hemoglobin and hematocrit is 12 and 37 platelet count 89,000 labs significant for hyponatremia sodium 128 BUN/creatinine 15 1.19, LFT within normal limit, urine analysis is negative, alcohol level less than 10, influenza A is positive, magnesium is 1.5, Objective - Vital Signs Vital signs: Vital Signs Temp 97.5 F L 01/20/22 08:00 Pulse 60 01/20/22 15:02 Resp 16 01/20/22 08:30 BP 125/79 01/20/22 08:00 Pulse Ox 93 L 01/20/22 08:00 FiO2 21 01/19/22 19:32 Intake & Output 01/19/22 01/20/22 01/20/22 18:59 06:59 18:59 Intake Total 240 Balance 240 Weight 56.699 kg Intake: Oral 240 Other: Voiding Method Toilet Toilet Toilet # Voids 3 - Exam - Constitutional General appearance: average body habitus, cooperative, disheveled, mild distress - EENT Eyes: EOMI, PERRLA Ears: bilateral: normal - Neck Neck: normal ROM Carotids: bilateral: upstroke normal - Respiratory Respiratory: bilateral: CTA - Cardiovascular Rhythm: regular Heart sounds: normal: S1, S2 - Neurologic Neurologic: CNII-XII intact - Musculoskeletal Musculoskeletal: gait normal, generalized weakness, strength equal bilaterally - Psychiatric Psychiatric: A&O x's 3, appropriate affect, intact judgment & insight - Labs CBC & Chem 7: 01/20/22 08:12 01/20/22 08:12 Labs: Abnormal Lab Results - Last 24 Hours (Table) 01/20/22 01/20/22 Range/Units 08:12 08:12 WBC 14.5 H (3.8-10.6) k/uL Neutrophils # 12.2 H (1.3-7.7) k/uL Sodium 130 L (137-145) mmol/L Chloride 95 L (98-107) mmol/L BUN 46 H (9-20) mg/dL Glucose 152 H (74-99) mg/dL Calcium 8.1 L (8.4-10.2) mg/dL C-Reactive Protein 1.1 H (<1.0) mg/dL Assessment and Plan Assessment: Influenza A infection Electrolyte imbalance with hyponatremia and hypomagnesemia COPD with acute exacerbation Dyslipidemia Hypertension hypertensive cardiovascular disease Seizure disorder Ischemic cardiomyopathy with baseline ejection fraction of 25-30%, status post AICD Coronary artery disease status post H 4 in 1995 and stent placement His schizophrenia and size are effective disorder History of regular smoking and alcohol use Plan: By mouth tapering steroids Breathing treatment Status post Course of Tamiflu Continuation of home medicines Further recommendations pending as per clinical response of the patient Time with Patient: Greater than 30
[2022-01-20] MEDS: ATORVASTATIN 40 MG TAB PO SCH (20:42)
--- NOTE | 2022-01-20 22:34 | PN ---
PROGRESS NOTE Discussed this patient's case with clinical social work therapist. Apparently the patient's guardian says the patient can go home at this time until they find him a new place to live. He has been started back on all cardiomyopathy medications, has been treated for influenza A infection. He has ischemic cardiomyopathy, 25% to 30% ejection fraction, history of schizophrenia, for which he is not on his medications. Vital signs reviewed. Cardiovascular S1-S2. Lungs clear. GI soft. Neurologic alert and oriented x3. ASSESSMENT: 1. Influenza A. 2. Electrolyte imbalance. 3. Chronic obstructive pulmonary disease. 4. Dyslipidemia. 5. Hypertension. 6. Seizures. 7. Ischemic cardiomyopathy. 8. Coronary artery disease . 9. History of regular smoking and alcohol use. Steroid taper. Finish Tamiflu. Psych consult for schizophrenia prior to going home to restart medications. Prognosis guarded. LEIF / JOE: [id number] /
[2022-01-21] MEDS: IPRATROPIUM-ALBUTEROL 3 ML NEB INHALATION SCH ×4 (07:34→20:02)
[2022-01-21] MEDS: carvediloL 3.125 MG TAB PO SCH ×2 (07:45→17:01)
[2022-01-21] MEDS: ASPIRIN 81 MG PO SCH (07:46)
[2022-01-21] MEDS: FUROSEMIDE 40 MG TAB PO SCH (07:46)
[2022-01-21] MEDS: methylPREDNISolone 4 MG TAB TAPER PO SCH (07:47)
[2022-01-21] MEDS: SACUBITRIL/VALSARTAN 24 MG-26 MG TABLET PO SCH ×2 (07:48→20:42)
[2022-01-21] MEDS: HYDROcodone/APAP 5-325MG 1 EACH TAB PO PRN (10:17)
--- NOTE | 2022-01-21 11:46 | P.PN ---
Subjective Progress Note Date: 01/21/22 CHIEF COMPLAINT: Congestive heart failure HISTORY OF PRESENT ILLNESS: This is a 71-year-old male with a past medical history significant for coronary artery disease with previous CABG performed in [place], ischemic cardiomyopathy with AICD implantation in [place], hypertension, hyperlipidemia, congestive heart failure, and nicotine dependence. Patient does not follow with a channel executive. We have been asked to see the patient in consultation for congestive heart failure. Patient examined at the bedside. Patient presented to the hospital with a 1 week duration of not feeling well, dizziness, fever, and chills. The patient was diagnosed with influenza. He denies any chest pain or pressure. He currently denies any significant shortness of breath. The patient states he has not been taking any of his cardiac medications on an outpatient basis because he did not think that they were helping him. * EKG reveals sinus mechanism with T wave inversions in inferior leads and V4-V6 * Chest xray chronic changes without acute pulmonary process. No significant change from prior. * CT chest: No evidence for focal consolidation. Cardiomegaly with mild p ulmonary vascular congestion and post CABG changes. No evidence for pulmonary embolism. * Laboratory data: WBC 6.74. Hemoglobin 14.4. Platelet count 131. Sodium 132. Potassium 4.0. BUN 15. Creatinine 1.2. * Current home cardiac medications include none * Most recent echocardiogram obtained in August 2019 revealing ejection fraction 40-45%, moderate MR, mild TR * Patient underwent Lexiscan stress test in June 2020 which was negative for reversible ischemia. 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 01/15/2022 Patient without complaints of chest pain or pressure. Denies SOB. Reports abdominal pain this morning. Echocardiogram completed revealing ejection fraction 25%, moderate LVH, akinesis of inferior wall, hypo-any since of lateral wall, atypical septal wall motion due to previous CABG, [id number] mitral regurgitation, and mild tricuspid regurgitation 01/21/2022 Cardiology was asked to reevaluate patient's secondary to an episode of chest discomfort. The patient reports he had an episode of mild chest discomfort early this morning. An EKG was performed which did not reveal any ischemic changes. Patient had a troponin completed which was negative as well. He has had no further episodes of chest pain since that time. The patient does report significant abdominal pain which is tender to touch. PHYSICAL EXAM: Thorough physical exam not completed secondary to limited evaluation/examination due to influenza ASSESSMENT: Acute influenza A Acute COPD exacerbation Coronary artery disease with previous CABG, exact details unknown History of ischemic myopathy with AICD implantation Hypertension Hyperlipidemia Chronic systolic heart failure Nicotine dependence Medication noncompliance PLAN: Continue current cardiac medications Management of abdominal pain per internal medicine Obtain 1 additional troponin Add Imdur 15mg daily No further inpatient recommendations from a cardiac standpoint We will sign off. Please reconsult if needed. Nurse practitioner note has been reviewed by physician. Signing provider agrees with the documented findings, assessment, and plan of care. Objective - Vital Signs Vital signs: Vital Signs Temp 97.5 F L 01/21/22 07:43 Pulse 60 01/21/22 07:47 Resp 15 01/21/22 07:43 BP 109/75 01/21/22 07:43 Pulse Ox 90 L 01/21/22 07:43 FiO2 21 01/19/22 19:32 Intake & Output 01/20/22 01/21/22 01/21/22 18:59 06:59 18:59 Other: Voiding Method Toilet Toilet # Voids 2 1 - Labs CBC & Chem 7: 01/20/22 08:12 01/20/22 08:12
[2022-01-21] MEDS ORDERED: ISOSORBIDE MONONITRATE ER 15 MG TAB PO SCH (12:00)
--- NOTE | 2022-01-21 12:04 | P.CN ---
Psychiatric Consult - . Consult date: 01/21/22 Consult:: 01/21/22 12:03 IDENTIFYING DATA: This patient is a single, retired, 71-year-old male who presented to the hospital via EMS for progressively worsening weakness over the past few weeks. HISTORY OF PRESENT ILLNESS: The patient presented to the hospital on 01/12/2022, brought into the hospital by an ambulance because the patient could not get up and was incontinent of urine and stool. He was subsequently admitted to the medical floor for treatment and management of failure to thrive, hyponatremia, and hypomagnesemia. The patient is also noted to have increasing weakness and increased shortness of breath secondary to acute influenza A. psychiatry has been consulted for evaluation and management of the patient's schizophrenia as he has been previously diagnosed with schizophrenia and is not currently on any medications. Upon evaluation of the psychiatrist, the patient does endorse auditory and visual hallucinations. However when asking for specifics, the patient is unable to answer appropriately. He is unable to fully engage in the psychiatric interview and appears to be delayed at baseline. Much of his psychiatric history was obtained through [facility] as well as his guardian. The patient is reportedly on Invega Sustenna for management of his schizophrenia however his case has been closed by [facility] since . This was unknown to his guardian. He last received Invega Sustenna on 10/22/2021. PAST PSYCHIATRIC HISTORY: Patient has a history of schizophrenia. The patient was previously prescribed Invega and was on the long-acting injectable Invega Sustenna with his last dose being administered on 10/22/2021. As per chart review, the patient has also had previous trials of Depakote and Effexor. The patient was last hospitalized on the psychiatric unit in 2019. Currently is not open with any outpatient psychiatric provider. PAST MEDICAL HISTORY: Past Medical History: Coronary Artery Disease (CAD), Heart Failure, Dementia, Hyperlipidemia, Hypertension, Seizure Disorder, Syncope, Thyroid Disorder Additional Past Medical History / Comment(s): Ischemic cardiomyopathy, EF 20- 25%, last seizure about 2 yrs ago, hypothyroid.neuropathy "WHEN HE WORKED HE HAD A CRUSHING INJURY -COLLAPSED LUNGS C/T AND HAS CHRONIC BACK PAIN"" pt states he is schizophrenic/bipolar. History of Any Multi-Drug Resistant Organisms: None Reported Past Surgical History: AICD, Back Surgery, Coronary Bypass/CABG, Heart Catheterization, Heart Catheterization With Stent Additional Past Surgical History / Comment(s): 1995 CABG 4 vessel in [place], has had 2"HEART CATHS/had 2 STENTS after cabg sx.pt stated they were done in [facility]. "sx on tailbone, cortisone injections, devin inguinal hernia repair Past Anesthesia/Blood Transfusion Reactions: No Reported Reaction Date of Last Stent Placement:: 1995 Type of Cardiac Device: AICD Device Placement Date:: 1995 in [facility] Past Psychological History: Anxiety, Depression, Schizoaffective Disorder, Schizophrenia Additional Psychological History / Comment(s): . Smoking Status: Current every day smoker Past Alcohol Use History: None Reported, Daily Additional Past Alcohol Use History / Comment(s): . Past Drug Use History: None Reported Additional Drug Use History / Comment(s): Pt states he smokes marijuana on occasion. ALLERGIES: Morphine, penicillin, pneumococcal vaccine, influenza virus vaccine CHEMICAL DEPENDENCY HISTORY: Current every day smoker. Unable to obtain other substance history. As per chart review, the patient smokes marijuana on occasion. FAMILY PSYCHIATRIC/SUBSTANCE USE HISTORY: Unable to assess. SOCIAL HISTORY: Patient is listed as single, never , and is currently retired. MENTAL STATUS EXAM: General Appearance: Patient appears to be stated age is alert, pleasant, and cooperative. Patient appears to have disheveled hygiene and grooming wearing hospital gown with fair eye contact. Behavior: Patient is calmly lying in bed without any agitated behavior. Eye contact is appropriate. Speech: Patient's speech is nonsensical, nonlinear, vague. Monotone. Mood/Affect: Patient reports their mood is "not good", affect is malaised. Suicidality/Homicidality: Patient does not report any suicidal or homicidal ideation. Perceptions: Patient reports auditory and visual hallucinations however is unable to specify. Though content/process: The patient does endorse paranoid and delusional thought content however is vague and refuses to specify. Memory and concentration: Grossly poor at this time. Judgment and insight: poor IMPRESSIONS: Schizophrenia Acute influenza A Acute COPD exacerbation PLAN: -Continue your medical management -At this time patient DOES NOT meet criteria for inpatient psychiatric admission. Although the patient is endorsing some delusional thought content, it does not appear to be in the realm of an acute disorder that would require inpatient psychiatric management. -Delirium precautions recommended with patient including - avoiding use of narcotics and GERIATRIC PHYSICAL THERAPIST sedatives, limit anticholinergic medications when possible, frequent re-orientation, minimize use of restraints, open window shades during the day and close them at night -Would recommend the following medication changes/additions: We will restart Invega 3 mg by mouth daily at bedtime for management of psychosis. Consider transitioning back to Invega Sustenna. Recommend outpatient psychiatric follow-up. -Will continue to follow along 01/21/22 12:04 01/21/22 12:04
[2022-01-21] MEDS ORDERED: HYDROcodone/APAP 5-325MG 1 EACH TAB PO PRN (15:33)
[2022-01-21] MEDS: ATORVASTATIN 40 MG TAB PO SCH (20:41)
[2022-01-21] MEDS ORDERED: PALIPERIDONE 3 MG TAB.ER.24 PO SCH (21:00)
[2022-01-22] MEDS ORDERED: SODIUM CHLORIDE 0.9% 1,000 ML IV ONE (01:29)
[2022-01-22 03:50] LABS: Appearance,Urine Clear (Clear); Bilirubin,Urine Negative (Negative); Blood,Urine Negative (Negative); Color,Urine Yellow; Glucose,Urine (UA) Negative (Negative); Ketones,Urine Negative (Negative); Leukocyte Esterase,Urine Negative (Negative); Nitrite,Urine Negative (Negative); Protein,Urine Negative (Negative); Specific Gravity,Urine 1.023 (1.001-1.035); Urobilinogen,Urine <2.0 mg/dL (<2.0)
[2022-01-22 07:43] LABS: African American GFR (CKD) 76 (>60 ml/min/1.73 sqM); Anion Gap 8 mmol/L; Blood Urea Nitrogen 55 mg/dL (9-20); Calcium 7.9 mg/dL (8.4-10.2); Carbon Dioxide 28 mmol/L (22-30); Chloride 99 mmol/L (98-107); Glucose 113 mg/dL (74-99); Non-African American GFR(CKD) 66 (>60 ml/min/1.73 sqM); Potassium 3.9 mmol/L (3.5-5.1); Sodium 135 mmol/L (137-145)
[2022-01-22] MEDS: IPRATROPIUM-ALBUTEROL 3 ML NEB INHALATION SCH ×3 (08:26→15:19)
--- NOTE | 2022-01-22 08:45 | PN ---
PROGRESS NOTE We were going to send him home to his friend's house after H-flu with pneumonia, dehydration, prerenal azotemia, altered mental status, found to have recurrent cardiomyopathy for which he has been off all his medicines for that. He has been off his Invega. He takes a shot every day. Treatment for COPD exacerbation secondary to . He is eating better. He is ambulating a little bit better. He says all his home medications have been restarted. Appears to be stable. Possibly discharge home tomorrow to follow up as an outpatient. Current home medications will have to be called in as he has had stopped all his medicines. He is back on his schizophrenic medications as well as ischemic cardiomyopathy medications. PROGNOSIS: Guarded. LEIF / MADELAINEN: [id number] /
[2022-01-22 09:57] VITALS: RESP 14
--- NOTE | 2022-01-22 12:21 | P.NPCON ---
History of Present Illness - Reason for Consult hyponatremia - History of Present Illness Reason for consultation: Hyponatremia History of present illness: Patient is a 71-year-old male seen in consultation for hyponatremia. Patient's sodium level this admission has been ranging from 128-133. Today it is up to 135. Patient presented to the hospital on 01/12/2022 due to progressive weakness going on for couple of weeks prior to admission. It was noted to be febrile. Oral intake is fair. He denies vomiting or diarrhea. Patient is not a very reliable historian. He did test positive for influenza virus. He does admit to a cough with clear phlegm. Patient's blood pressure has been running on the lower side. This morning it was 92/47. Fluids were started last night when the blood pressure dropped into the systolic 60s. He is receiving oral Lasix as well as Entresto. He has been voiding. Denies hematuria or dysuria. No fever. No history of diabetes. I don't see any nonsteroidals and his home medication list. Echocardiogram done this admission showed ejection fraction of 25% with mild to moderate mitral regurgitation. Chest x-ray from 01/20/2022 showed no evidence of fluid overload. Vital signs are stable. Blood pressure on the lower side. General: No acute distress. HEENT: Head exam is unremarkable. LUNGS: Breath sounds decreased. HEART: Rate and Rhythm are regular. ABDOMEN: Soft, no distention. EXTREMITITES: No edema. Past Medical History Past Medical History: Coronary Artery Disease (CAD), Heart Failure, Dementia, Hyperlipidemia, Hypertension, Seizure Disorder, Syncope, Thyroid Disorder Additional Past Medical History / Comment(s): Ischemic cardiomyopathy, EF 20- 25%, last seizure about 2 yrs ago, hypothyroid.neuropathy "WHEN HE WORKED HE HAD A CRUSHING INJURY -COLLAPSED LUNGS C/T AND HAS CHRONIC BACK PAIN"" pt states he is schizophrenic/bipolar. History of Any Multi-Drug Resistant Organisms: None Reported Past Surgical History: AICD, Back Surgery, Coronary Bypass/CABG, Heart Catheterization, Heart Catheterization With Stent Additional Past Surgical History / Comment(s): 1995 CABG 4 vessel in [place], has had 2"HEART CATHS/had 2 STENTS after cabg sx.pt stated they were done in [facility]. "sx on tailbone, cortisone injections, devin inguinal hernia repair Past Anesthesia/Blood Transfusion Reactions: No Reported Reaction Date of Last Stent Placement:: 1995 Type of Cardiac Device: AICD Device Placement Date:: 1995 in [facility] Past Psychological History: Anxiety, Depression, Schizoaffective Disorder, Schizophrenia Additional Psychological History / Comment(s): . Smoking Status: Current every day smoker Past Alcohol Use History: None Reported, Daily Additional Past Alcohol Use History / Comment(s): . Past Drug Use History: None Reported Additional Drug Use History / Comment(s): Pt states he smokes marijuana on occasion. - Past Family History Mother Family Medical History: Respiratory Disorder Additional Family Medical History / Comment(s): Mother had TB Father Additional Family Medical History / Comment(s): Father was an alcoholic. Medications and Allergies Home Medications Medication Instructions Recorded Confirmed Type Aspirin 81 mg PO DAILY #30 tab 01/15/22 Rx Atorvastatin [Lipitor] 40 mg PO HS #30 tab 01/15/22 Rx Furosemide [Lasix] 40 mg PO DAILY #30 tab 01/15/22 Rx Losartan [Cozaar] 12.5 mg PO DAILY #30 tab 01/15/22 Rx carvediloL [Coreg] 3.125 mg PO BID-W/MEALS #60 tab 01/15/22 Rx Ipratropium-Albuterol Nebulize 3 ml INHALATION RT-QID each 01/19/22 Rx [Duoneb 0.5 mg-3 mg/3 ml Soln] Sacubitril/Valsartan [Entresto 24 1 each PO BID 30 Days #60 tab 01/19/22 Rx mg-26 mg Tablet] methylPREDNISolone Dose Pack 24 mg PO DAILY 5 Days #1 tab 01/19/22 Rx [Medrol Dose Pack] Allergies Allergy/AdvReac Type Severity Reaction Status Date / Time morphine Allergy Anaphylaxis Verified 01/12/22 19:23 Penicillins Allergy Swelling Verified 01/12/22 19:23 Influenza Virus Vaccines AdvReac Unknown Verified 01/12/22 19:23 pneumococcal vaccine AdvReac Unknown Verified 01/12/22 19:23 Physical Exam Vitals: Vital Signs Temp Pulse Pulse Resp BP BP Pulse Ox 01/22/22 08:37 75 01/22/22 08:26 60 01/22/22 08:00 96.8 F L 60 14 92/47 91 L 01/22/22 04:03 96 88/56 01/22/22 01:18 62/48 82/58 01/22/22 00:53 97.5 F L 60 18 90/53 98 01/21/22 20:24 97.4 F L 62 17 91/53 93 L 01/21/22 20:13 68 01/21/22 20:00 64 62 17 01/21/22 16:10 72 01/21/22 15:59 70 97 01/21/22 15:15 65 113/53 96 01/21/22 15:06 97.8 F 60 15 90/54 93 L Intake and Output 01/21/22 01/22/22 01/22/22 22:59 06:59 14:59 Other: Voiding Method Toilet Results - Lab Results Most recent lab results Calcium 7.9 mg/dL (8.4-10.2) L 01/22/22 07:18 Magnesium 1.5 mg/dL (1.6-2.3) L 01/12/22 17:35 01/20/22 08:12 01/22/22 07:18 Assessment and Plan Plan: Assessment: 1. Hypovolemic hyponatremia improved with IV hydration. Sodium level 135 today. 2. Elevated BUN secondary to hypovolemia and steroids. 3. Chronic systolic CHF with ejection fraction of 25%. Status post AICD implantation. Cardiology following. 4. Influenza A virus. 5. Coronary disease status post CABG in the past. Plan: Hold Lasix. Decrease normal saline to 50 mL an hour. Maintain fluid restriction. Encourage oral intake. Avoid nephrotoxins. Continue to monitor renal function and urine output. Hold entresto for systolic blood pressure less than 90. Thank you for the consultation. I will continue to follow the patient with you during his hospital stay.
[2022-01-22] MEDS: ASPIRIN 81 MG PO SCH (14:45)
[2022-01-22] MEDS: carvediloL 3.125 MG TAB PO SCH ×2 (14:45→15:51)
[2022-01-22] MEDS: methylPREDNISolone 4 MG TAB TAPER PO SCH (14:46)
[2022-01-22] MEDS: SACUBITRIL/VALSARTAN 24 MG-26 MG TABLET PO SCH (14:46)
[2022-01-22 15:12] VITALS: BP 93/49; TEMP 97.5
[2022-01-22 15:22] VITALS: PULSE 64
[2022-01-22] MEDS: FUROSEMIDE 40 MG TAB PO SCH (17:06)
--- NOTE | 2022-01-22 17:16 | PN ---
PROGRESS NOTE 71-year-old white male. Continues to improve. From his breathing standpoint, he is very weak. He has no medications at home. We are going to have to give him his medications on discharge. The patient apparently has no medications at home. He will have to be sent to the pharmacy and continue with his current medications. He probably does not need pain medicine. I do not know how he is going to get his Invega but he takes a 3 mg tablet at night. All medications have been sent to the pharmacy. Probably can go home. Follow up in office in a week. He has given appropriate answers. He is getting up with assistance. He does not qualify for nursing homes. Lungs are transmitted upper airway sounds. Hematology: Negative Homans. Psych: Fair mood and affect. ASSESSMENT: 1. Influenza. 2. Chronic obstructive pulmonary disease. 3. Bronchitis. 4. Sepsis secondary to that. 5. Generalized weakness. 6. Encephalopathy. 7. Delirium. Continue current treatments as far as cardiomyopathy. He was off all his medicines at home. Now he will restart all his medicines. Follow up in the office in a week. MMODL / IJN: [id number] /
--- NOTE | 2022-01-22 19:18 | P.PN ---
Subjective Progress Note Date: 01/21/22 Principal diagnosis: Influenza A infection Electrolyte imbalance with hyponatremia and hypomagnesemia COPD with acute exacerbation Dyslipidemia Hypertension hypertensive cardiovascular disease Seizure disorder Ischemic cardiomyopathy with baseline ejection fraction of 25-30%, status post AICD Coronary artery disease status post H 4 in 1995 and stent placement His schizophrenia and size are effective disorder History of regular smoking and alcohol use 01/21/2022, patient seen and evaluated examined during rounds labs reviewed medications reviewed, overall continued do well with stable breathing Petrin however patient had episode of chest pain, has been evaluated by cardiology troponin has been negative ECG within normal limit, plan to continue to observe denies any cough or sputum production chest pain patient mostly on room air 01/20/2022, patient seen eval examined during the rounds labs reviewed medications reviewed care plan discussed, respirator status remains stable denies any chest pain shortness of breath, breathing more comfortably patient the being diuresed now at room air saturations are stable 01/19/2022, patient seen eval examined during the rounds labs reviewed medications reviewed patient remains on room air breathing comfortably denies any chest pain labs medications have been reviewed, patient has been switched to Medrol dosepak tolerating well, remains on bronchodilator and continuation of home medications with gentle diuresis 01/18/2022, patient seen and evaluated examined during the rounds, breathing comfortably oxygen saturation 94% room air, hemodynamic status stable remains afebrile no specific complaints mild shortness of breath on activity is present but no chest pain or cough or sputum production 01/17/2022, patient seen eval examined during the rounds labs reviewed medications reviewed, patient remains afebrile, on 2 L oxygen via nasal cannula denies any chest pain or shortness of breath denies any cough or sputum production no history of diarrhea or loose stool, oxygen saturation 90% to 93% 01/16/2022, patient remains on 2 L oxygen, respiratory status stable, denies any cough or sputum production denies any chest pain, cardiovascular services following, patient remains on bronchodilators remains on his steroids 40 mg every 8 we'll start titrating down patient on Tamiflu as well 01/15/2022, ongoing cough intermittently is present breathing comfortably, denies any chest pain, remains on 2 L oxygen, cardiovascular services has been following, continue to optimize therapy for heart failure Patient is a 71-year-old male long-term smoker smokes 1 pack a day lately have cut down to half pack per day he lives with her roommate he has developed symptoms of progressive cough shortness of breath and tiredness and fatigue with progressive generalized weakness for the last 5 days and also have a spiking fever up to 102 decided to come into the hospital for further evaluation. His initial chest x-ray suggestive of the chronic changes without any acute pulmonary process. EKG sinus rhythm with PVCs and non-specific changes. Computed tomography scan of the chest done hard copies reviewed, no obvious major filling defects in, medial left-sided large boluses per is seen, no active infiltrate identified, labs significant for white cell count of 5600 hemoglobin and hematocrit is 12 and 37 platelet count 89,000 labs significant for hyponatremia sodium 128 BUN/creatinine 15 1.19, LFT within normal limit, urine analysis is negative, alcohol level less than 10, influenza A is positive, magnesium is 1.5, Objective - Vital Signs Vital signs: Vital Signs Temp 97.4 F L 01/21/22 20:24 Pulse 62 01/21/22 20:24 Resp 17 01/21/22 20:24 BP 91/53 01/21/22 20:24 Pulse Ox 93 L 01/21/22 20:24 FiO2 21 01/19/22 19:32 Intake & Output 01/21/22 01/21/22 01/22/22 06:59 18:59 06:59 Weight 56.699 kg Other: Voiding Method Toilet Toilet # Voids 2 1 - Exam - Constitutional General appearance: average body habitus, cooperative, disheveled, mild distress - EENT Eyes: EOMI, PERRLA Ears: bilateral: normal - Neck Neck: normal ROM Carotids: bilateral: upstroke normal - Respiratory Respiratory: bilateral: CTA - Cardiovascular Rhythm: regular Heart sounds: normal: S1, S2 - Neurologic Neurologic: CNII-XII intact - Musculoskeletal Musculoskeletal: gait normal, generalized weakness, strength equal bilaterally - Psychiatric Psychiatric: A&O x's 3, appropriate affect, intact judgment & insight - Labs CBC & Chem 7: 01/20/22 08:12 01/22/22 07:18 Assessment and Plan Assessment: Nonspecific chest pain is spontaneously resolved Influenza A infection Electrolyte imbalance with hyponatremia and hypomagnesemia COPD with acute exacerbation Dyslipidemia Hypertension hypertensive cardiovascular disease Seizure disorder Ischemic cardiomyopathy with baseline ejection fraction of 25-30%, status post AICD Coronary artery disease status post H 4 in 1995 and stent placement His schizophrenia and size are effective disorder History of regular smoking and alcohol use Plan: By mouth tapering steroids Breathing treatment Status post Course of Tamiflu Continuation of home medicines Further recommendations pending as per clinical response of the patient Time with Patient: Greater than 30
--- NOTE | 2022-01-22 19:20 | P.PN ---
Subjective Progress Note Date: 01/22/22 Principal diagnosis: Influenza A infection Electrolyte imbalance with hyponatremia and hypomagnesemia COPD with acute exacerbation Dyslipidemia Hypertension hypertensive cardiovascular disease Seizure disorder Ischemic cardiomyopathy with baseline ejection fraction of 25-30%, status post AICD Coronary artery disease status post H 4 in 1995 and stent placement His schizophrenia and size are effective disorder History of regular smoking and alcohol use 01/22/2022, patient seen and evaluated examined overall continued do well denies any chest pain or shortness of breath remains on room air breathing comfortably, patient remain afebrile hemodynamically stable saturation is 95% and patient is on 2 L nasal cannula 01/21/2022, patient seen and evaluated examined during rounds labs reviewed medications reviewed, overall continued do well with stable breathing Petrin however patient had episode of chest pain, has been evaluated by cardiology troponin has been negative ECG within normal limit, plan to continue to observe denies any cough or sputum production chest pain patient mostly on room air 01/20/2022, patient seen eval examined during the rounds labs reviewed medications reviewed care plan discussed, respirator status remains stable denies any chest pain shortness of breath, breathing more comfortably patient the being diuresed now at room air saturations are stable 01/19/2022, patient seen eval examined during the rounds labs reviewed medications reviewed patient remains on room air breathing comfortably denies any chest pain labs medications have been reviewed, patient has been switched to Medrol dosepak tolerating well, remains on bronchodilator and continuation of home medications with gentle diuresis 01/18/2022, patient seen and evaluated examined during the rounds, breathing comfortably oxygen saturation 94% room air, hemodynamic status stable remains afebrile no specific complaints mild shortness of breath on activity is present but no chest pain or cough or sputum production 01/17/2022, patient seen eval examined during the rounds labs reviewed medications reviewed, patient remains afebrile, on 2 L oxygen via nasal cannula denies any chest pain or shortness of breath denies any cough or sputum production no history of diarrhea or loose stool, oxygen saturation 90% to 93% 01/16/2022, patient remains on 2 L oxygen, respiratory status stable, denies any cough or sputum production denies any chest pain, cardiovascular services following, patient remains on bronchodilators remains on his steroids 40 mg every 8 we'll start titrating down patient on Tamiflu as well 01/15/2022, ongoing cough intermittently is present breathing comfortably, denies any chest pain, remains on 2 L oxygen, cardiovascular services has been following, continue to optimize therapy for heart failure Patient is a 71-year-old male long-term smoker smokes 1 pack a day lately have cut down to half pack per day he lives with her roommate he has developed symptoms of progressive cough shortness of breath and tiredness and fatigue with progressive generalized weakness for the last 5 days and also have a spiking fever up to 102 decided to come into the hospital for further evaluation. His initial chest x-ray suggestive of the chronic changes without any acute pulmonary process. EKG sinus rhythm with PVCs and non-specific changes. Compu raghu tomography scan of the chest done hard copies reviewed, no obvious major filling defects in, medial left-sided large boluses per is seen, no active infiltrate identified, labs significant for white cell count of 5600 hemoglobin and hematocrit is 12 and 37 platelet count 89,000 labs significant for hyponatremia sodium 128 BUN/creatinine 15 1.19, LFT within normal limit, urine analysis is negative, alcohol level less than 10, influenza A is positive, magnesium is 1.5, Objective - Vital Signs Vital signs: Vital Signs Temp 97.5 F L 01/22/22 14:00 Pulse 64 01/22/22 15:32 Resp 14 01/22/22 14:00 BP 93/49 01/22/22 14:00 Pulse Ox 95 01/22/22 15:21 FiO2 21 01/19/22 19:32 Intake & Output 01/22/22 01/22/22 01/23/22 06:59 18:59 06:59 Other: Voiding Method Toilet # Voids 4 - Exam - Constitutional General appearance: average body habitus, cooperative, disheveled, mild distress - EENT Eyes: EOMI, PERRLA Ears: bilateral: normal - Neck Neck: normal ROM Carotids: bilateral: upstroke normal - Respiratory Respiratory: bilateral: CTA - Cardiovascular Rhythm: regular Heart sounds: normal: S1, S2 - Neurologic Neurologic: CNII-XII intact - Musculoskeletal Musculoskeletal: gait normal, generalized weakness, strength equal bilaterally - Psychiatric Psychiatric: A&O x's 3, appropriate affect, intact judgment & insight - Labs CBC & Chem 7: 01/20/22 08:12 01/22/22 07:18 Labs: Abnormal Lab Results - Last 24 Hours (Table) 01/22/22 Range/Units 07:18 Sodium 135 L (137-145) mmol/L BUN 55 H (9-20) mg/dL Glucose 113 H (74-99) mg/dL Calcium 7.9 L (8.4-10.2) mg/dL Assessment and Plan Assessment: Nonspecific chest pain no recurrence Influenza A infection Electrolyte imbalance with hyponatremia and hypomagnesemia COPD with acute exacerbation Dyslipidemia Hypertension hypertensive cardiovascular disease Seizure disorder Ischemic cardiomyopathy with baseline ejection fraction of 25-30%, status post AICD Coronary artery disease status post H 4 in 1995 and stent placement His schizophrenia and size are effective disorder History of regular smoking and alcohol use Plan: By mouth tapering steroids Breathing treatment Status post Course of Tamiflu Continuation of home medicines Further recommendations pending as per clinical response of the patient Agree from pulmonary standpoint for discharge and follow-up in office Time with Patient: Greater than 30
--- NOTE | 2022-01-24 15:10 | PN ---
PROGRESS NOTE ADDENDUM: Severe protein calorie malnutrition. MMODL / IJN: [id number] /
== END 2022-01-22 17:58 | DRG 193 ==
LOC: EC 17:18 → EEVIPCON 17:18 → 4SSUR 20:08
PROVIDERS: ADMIT Family Medicine; ATTEND Family Medicine
DX: J10.08 Influenza due to other identified influenza virus with other specified pneumonia (principal); E43 Unspecified severe protein-calorie malnutrition; A41.9 Sepsis, unspecified organism; I50.22 Chronic systolic (congestive) heart failure; E87.1 Hypo-osmolality and hyponatremia; Z68.1 Body mass index [BMI] 19.9 or less, adult; F05 Delirium due to known physiological condition; G93.40 Encephalopathy, unspecified; I42.8 Other cardiomyopathies; Z20.822 Contact with and (suspected) exposure to COVID-19; J44.1 Chronic obstructive pulmonary disease with (acute) exacerbation; J44.0 Chronic obstructive pulmonary disease with (acute) lower respiratory infection; J14 Pneumonia due to Hemophilus influenzae; R62.7 Adult failure to thrive; I08.1 Rheumatic disorders of both mitral and tricuspid valves; R06.03 Acute respiratory distress; L85.3 Xerosis cutis; G89.29 Other chronic pain; I25.10 Atherosclerotic heart disease of native coronary artery without angina pectoris; I25.5 Ischemic cardiomyopathy; M54.9 Dorsalgia, unspecified; F17.210 Nicotine dependence, cigarettes, uncomplicated; Z91.19 Patient's noncompliance with other medical treatment and regimen; E86.0 Dehydration; E03.9 Hypothyroidism, unspecified; E86.1 Hypovolemia; F03.90 Unspecified dementia, unspecified severity, without behavioral disturbance, psychotic disturbance, mood disturbance, and anxiety; G40.909 Epilepsy, unspecified, not intractable, without status epilepticus; I49.3 Ventricular premature depolarization; I11.0 Hypertensive heart disease with heart failure; E78.5 Hyperlipidemia, unspecified; E83.42 Hypomagnesemia; Z95.810 Presence of automatic (implantable) cardiac defibrillator; F25.9 Schizoaffective disorder, unspecified; F32.A Depression, unspecified; Z91.14 Patient's other noncompliance with medication regimen; Z95.1 Presence of aortocoronary bypass graft; Z88.5 Allergy status to narcotic agent; Z88.0 Allergy status to penicillin; Z88.7 Allergy status to serum and vaccine; Z87.19 Personal history of other diseases of the digestive system; Z63.72 Alcoholism and drug addiction in family; Z79.82 Long term (current) use of aspirin; Z79.899 Other long term (current) drug therapy; Z81.1 Family history of alcohol abuse and dependence; Z83.1 Family history of other infectious and parasitic diseases
CPT/HCPCS: 36415; 71045; 71046; 71260; 80048; 80053; 80320; 81003; 82140; 82550; 83605; 83690; 83735; 83880; 83930; 83935; 84145; 84300; 84484; 85025; 86140; 87040; 87502; 87635; 93005; 93306; 94640; 94760; 96360; 96361; 99285

== ENCOUNTER 2022-03-06 03:35 | Inpatient (IN) | payer MEDICARE, OTHER ==
--- NOTE | 2022-03-06 04:01 | XR ---
EXAMINATION TYPE: XR chest 1V portable DATE OF EXAM: 03/06/2022 COMPARISON: 01/20/2022 HISTORY: Dyspnea TECHNIQUE: Single view FINDINGS: There are sternal wires. There is right axillary pacemaker. No obvious heart failure. Lungs are clear of consolidation. There are no hilar masses. There are chest leads. There is slight blunti ng right costophrenic angle. There is mild pulmonary congestion. IMPRESSION: There is probably a new small right pleural effusion compared to old exam. Pulmonary vasc ularity increased compared to old exam and I suspect some mild heart failure.
[2022-03-06 04:04] LABS: Anisocytosis Slight; Basophils # (A) 0.1 k/uL (0-0.2); Basophils % (A) 1 %; Eosinophils # (A) 0.1 k/uL (0-0.7); Eosinophils % (A) 2 %; HCT 34.2 % (39.0-53.0); Hypochromasia Slight; Lymphocytes # (A) 1.8 k/uL (1.0-4.8); Lymphocytes % (A) 20 %; MCH 28.4 pg (25.0-35.0); MCHC 31.1 g/dL (31.0-37.0); MCV 91.2 fL (80.0-100.0); Mean Platelet Volume 7.9; Monocytes # (A) 0.3 k/uL (0-1.0); Monocytes % (A) 3 %; Neutrophils # (A) 6.6 k/uL (1.3-7.7); Neutrophils % (A) 73 %; Platelet Count 170 k/uL (150-450); RBC 3.75 m/uL (4.30-5.90); RDW 17.3 % (11.5-15.5)
[2022-03-06 04:07] LABS: HGB 10.6 gm/dL (13.0-17.5)
[2022-03-06 04:20] LABS: Prothrombin Time 10.7 sec (9.0-12.0)
[2022-03-06 04:22] LABS: Albumin 3.5 g/dL (3.5-5.0); Potassium 4.4 mmol/L (3.5-5.1); Total Bilirubin 0.3 mg/dL (0.2-1.3); Total Protein 6.7 g/dL (6.3-8.2)
[2022-03-06 04:38] LABS: Partial Thromboplastin Time 20.5 sec (22.0-30.0)
[2022-03-06] MEDS ORDERED: methylPREDNISolone SOD SUCCI 125 MG/2 ML VIAL IV STA (07:07)
[2022-03-06] MEDS ORDERED: IPRATROPIUM-ALBUTEROL 3 ML NEB INHALATION PRN (07:07)
[2022-03-06] MEDS ORDERED: HYDROcodone/APAP 5-325MG 1 EACH TAB PO PRN (07:21)
--- NOTE | 2022-03-06 08:18 | ED ---
SOB HPI - General Chief Complaint: Shortness of Breath Stated Complaint: JONY Time Seen by Provider: 03/06/22 03:36 Source: patient, EMS Mode of arrival: EMS Limitations: no limitations - History of Present Illness Initial Comments: This patient is 71-year-old man with history of COPD, who states he uses home oxygen at 2 L, states he had worsening of shortness of breath overnight tonight. He had been trying sleep. The patient was not having any improvement so he called EMS. EMS did provide CPAP oxygen, gave nebulized albuterol. The patient states she is feeling slightly better. Denies milton chest pain but does state his chest feels tight. No fever or chills. No purulent sputum. MD Complaint: shortness of breath -: hour(s) Severity: severe Consistency: constant Improves With: oxygen, upright position Worsens With: lying flat Known History Of: COPD, congestive heart failure Associated Symptoms: denies other symptoms Treatments Prior to Arrival: oxygen, bronchodilator, NIPPV - Related Data Home Oxygen Therapy: Yes Home Oxygen Amount: 2 Liters Home Medications Medication Instructions Recorded Confirmed Sacubitril/Valsartan [Entresto 24 1 tab PO BID 03/06/22 03/06/22 mg-26 mg Tablet] Previous Rx's Medication Instructions Recorded Aspirin 81 mg PO DAILY #30 tab 01/15/22 Atorvastatin [Lipitor] 40 mg PO HS #30 tab 01/15/22 Furosemide [Lasix] 40 mg PO DAILY #30 tab 01/15/22 carvediloL [Coreg] 3.125 mg PO BID-W/MEALS #60 tab 01/15/22 Ipratropium-Albuterol Nebulize 3 ml INHALATION RT-QID each 01/19/22 [Duoneb 0.5 mg-3 mg/3 ml Soln] Paliperidone [Invega] 3 mg PO HS tab 01/22/22 Hydrocortisone [Cortef] 10 mg PO BID #60 tab 03/13/22 Midodrine [ProAmatine] 5 mg PO AC-TID #90 tab 03/13/22 Allergies Allergy/AdvReac Type Severity Reaction Status Date / Time morphine Allergy Anaphylaxis Verified 03/06/22 11:57 Penicillins Allergy Swelling Verified 03/06/22 11:57 on entire body Influenza Virus Vaccines AdvReac Unknown Verified 03/06/22 11:57 pneumococcal vaccine AdvReac Unknown Verified 03/06/22 11:57 Review of Systems ROS Statement: Those systems with pertinent positive or pertinent negative responses have been documented in the HPI. ROS Other: All systems not noted in ROS Statement are negative. Constitutional: Denies: fever, chills, weakness Respiratory: Reports: cough, dyspnea. Denies: wheezes, hemoptysis, stridor Cardiovascular: Reports: orthopnea. Denies: chest pain, palpitations, edema, syncope Gastrointestinal: Denies: abdominal pain, nausea, vomiting Genitourinary: Denies: dysuria, hematuria Musculoskeletal: Denies: back pain Skin: Denies: rash Neurological: Denies: headache, weakness Past Medical History Past Medical History: Coronary Artery Disease (CAD), Heart Failure, Dementia, Hyperlipidemia, Hypertension, Seizure Disorder, Syncope, Thyroid Disorder Additional Past Medical History / Comment(s): Ischemic cardiomyopathy, EF 20- 25%, last seizure about 2 yrs ago, hypothyroid.neuropathy "WHEN HE WORKED HE HAD A CRUSHING INJURY -COLLAPSED LUNGS C/T AND HAS CHRONIC BACK PAIN"" pt states he is schizophrenic/bipolar. History of Any Multi-Drug Resistant Organisms: None Reported Past Surgical History: AICD, Back Surgery, Coronary Bypass/CABG, Heart Catheterization, Heart Catheterization With Stent Additional Past Surgical History / Comment(s): 1995 CABG 4 vessel in [place], has had 2"HEART CATHS/had 2 STENTS after cabg sx.pt stated they were done in [facility]. "sx on tailbone, cortisone injections, devin inguinal hernia repair Past Anesthesia/Blood Transfusion Reactions: No Reported Reaction Date of Last Stent Placement:: 1995 Type of Cardiac Device: AICD Device Placement Date:: 1995 in [facility] Past Psychological History: Anxiety, Depression, Schizoaffective Disorder, Schizophrenia Smoking Status: Current every day smoker Past Alcohol Use History: None Reported, Daily Past Drug Use History: None Reported - Past Family History Mother Family Medical History: Respiratory Disorder Additional Family Medical History / Comment(s): Mother had TB Father Additional Family Medical History / Comment(s): Father was an alcoholic. General Exam Limitations: no limitations General appearance: alert, in distress Head exam: Present: atraumatic, normocephalic Eye exam: Present: normal appearance. Absent: scleral icterus, conjunctival injection Respiratory exam: Present: respiratory distress, wheezes, rales, accessory muscle use. Absent: rhonchi, stridor, chest wall tenderness, prolonged expiratory Cardiovascular Exam: Present: regular rate, normal rhythm, systolic murmur. Absent: diastolic murmur, rubs, gallop GI/Abdominal exam: Present: soft. Absent: distended, tenderness, guarding, rebound, rigid, mass Extremities exam: Present: normal inspection, normal capillary refill. Absent: pedal edema, calf tenderness Back exam: Present: normal inspection. Absent: CVA tenderness (R), CVA tenderness (L) Neurological exam: Present: alert Skin exam: Present: warm, dry, intact, normal color. Absent: rash Course Vital Signs 03/06/22 03/06/22 03/06/22 03:39 05:04 06:58 Temperature 97 F L Pulse Rate 95 75 84 Respiratory 26 H 21 24 Rate Blood Pressure 155/108 114/78 133/85 O2 Sat by Pulse 100 100 100 Oximetry Fraction of 40 Inspired Oxygen (FIO2) 03/06/22 03/06/22 03/06/22 08:39 09:00 09:12 Temperature Pulse Rate 73 84 Respiratory 21 Rate Blood Pressure 120/98 O2 Sat by Pulse 100 Oximetry Fraction of 40 Inspired Oxygen (FIO2) 03/06/22 03/06/22 03/06/22 09:25 13:03 14:43 Temperature Pulse Rate 72 67 73 Respiratory 20 Rate Blood Pressure 137/88 O2 Sat by Pulse 98 Oximetry Fraction of Inspired Oxygen (FIO2) 03/06/22 03/06/22 14:44 15:04 Temperature Pulse Rate 75 Respiratory Rate Blood Pressure O2 Sat by Pulse Oximetry Fraction of 40 Inspired Oxygen (FIO2) Medical Decision Making - Medical Decision Making This patient is 71-year-old man presenting with dyspnea, this seems multifactorial will admit to have further evaluation and treatment. - Lab Data Result diagrams: 03/12/22 09:41 03/12/22 09:41 Lab Results 03/06/22 03/06/22 03/06/22 Range/Units 03:49 03:49 03:49 WBC 9.0 (3.8-10.6) k/uL RBC 3.75 L (4.30-5.90) m/uL Hgb 10.6 L D (13.0-17.5) gm/dL Hct 34.2 L (39.0-53.0) % MCV 91.2 (80.0-100.0) fL MCH 28.4 (25.0-35.0) pg MCHC 31.1 (31.0-37.0) g/dL RDW 17.3 H (11.5-15.5) % Plt Count 170 (150-450) k/uL MPV 7.9 Neutrophils % 73 % Lymphocytes % 20 % Monocytes % 3 % Eosinophils % 2 % Basophils % 1 % Neutrophils # 6.6 (1.3-7.7) k/uL Lymphocytes # 1.8 (1.0-4.8) k/uL Monocytes # 0.3 (0-1.0) k/uL Eosinophils # 0.1 (0-0.7) k/uL Basophils # 0.1 (0-0.2) k/uL Hypochromasia Slight Anisocytosis Slight PT 10.7 (9.0-12.0) sec INR 1.0 (<1.2) APTT 20.5 L (22.0-30.0) sec Sodium 138 (137-145) mmol/L Potassium 4.4 (3.5-5.1) mmol/L Chloride 105 (98-107) mmol/L Carbon Dioxide 26 (22-30) mmol/L Anion Gap 7 mmol/L BUN 21 H (9-20) mg/dL Creatinine 1.12 (0.66-1.25) mg/dL Est GFR (CKD-EPI)AfAm 77 (>60 ml/min/1.73 sqM) Est GFR (CKD-EPI)NonAf 66 (>60 ml/min/1.73 sqM) Glucose 120 H (74-99) mg/dL Plasma Lactic Acid Rigoberto (0.7-2.0) mmol/L Calcium 9.0 (8.4-10.2) mg/dL Total Bilirubin 0.3 (0.2-1.3) mg/dL AST 19 (17-59) U/L ALT 10 (4-49) U/L Alkaline Phosphatase 71 (38-126) U/L Troponin I (0.000-0.034) ng/mL NT-Pro-B Natriuret Pep pg/mL Total Protein 6.7 (6.3-8.2) g/dL Albumin 3.5 (3.5-5.0) g/dL Procalcitonin (0.02-0.09) ng/mL Coronavirus (PCR) (Not Detectd) 03/06/22 03/06/22 03/06/22 Range/Units 03:49 03:49 03:49 WBC (3.8-10.6) k/uL RBC (4.30-5.90) m/uL Hgb (13.0-17.5) gm/dL Hct (39.0-53.0) % MCV (80.0-100.0) fL MCH (25.0-35.0) pg MCHC (31.0-37.0) g/dL RDW (11.5-15.5) % Plt Count (150-450) k/uL MPV Neutrophils % % Lymphocytes % % Monocytes % % Eosinophils % % Basophils % % Neutrophils # (1.3-7.7) k/uL Lymphocytes # (1.0-4.8) k/uL Monocytes # (0-1.0) k/uL Eosinophils # (0-0.7) k/uL Basophils # (0-0.2) k/uL Hypochromasia Anisocytosis PT (9.0-12.0) sec INR (<1.2) APTT (22.0-30.0) sec Sodium (137-145) mmol/L Potassium (3.5-5.1) mmol/L Chloride (98-107) mmol/L Carbon Dioxide (22-30) mmol/L Anion Gap mmol/L BUN (9-20) mg/dL Creatinine (0.66-1.25) mg/dL Est GFR (CKD-EPI)AfAm (>60 ml/min/1.73 sqM) Est GFR (CKD-EPI)NonAf (>60 ml/min/1.73 sqM) Glucose (74-99) mg/dL Plasma Lactic Acid Rigoberto 2.0 (0.7-2.0) mmol/L Calcium (8.4-10.2) mg/dL Total Bilirubin (0.2-1.3) mg/dL AST (17-59) U/L ALT (4-49) U/L Alkaline Phosphatase (38-126) U/L Troponin I 0.021 (0.000-0.034) ng/mL NT-Pro-B Natriuret Pep 2650 pg/mL Total Protein (6.3-8.2) g/dL Albumin (3.5-5.0) g/dL Procalcitonin (0.02-0.09) ng/mL Coronavirus (PCR) (Not Detectd) 03/06/22 03/06/22 Range/Units 03:49 03:53 WBC (3.8-10.6) k/uL RBC (4.30-5.90) m/uL Hgb (13.0-17.5) gm/dL Hct (39.0-53.0) % MCV (80.0-100.0) fL MCH (25.0-35.0) pg MCHC (31.0-37.0) g/dL RDW (11.5-15.5) % Plt Count (150-450) k/uL MPV Neutrophils % % Lymphocytes % % Monocytes % % Eosinophils % % Basophils % % Neutrophils # (1.3-7.7) k/uL Lymphocytes # (1.0-4.8) k/uL Monocytes # (0-1.0) k/uL Eosinophils # (0-0.7) k/uL Basophils # (0-0.2) k/uL Hypochromasia Anisocytosis PT (9.0-12.0) sec INR (<1.2) APTT (22.0-30.0) sec Sodium (137-145) mmol/L Potassium (3.5-5.1) mmol/L Chloride (98-107) mmol/L Carbon Dioxide (22-30) mmol/L Anion Gap mmol/L BUN (9-20) mg/dL Creatinine (0.66-1.25) mg/dL Est GFR (CKD-EPI)AfAm (>60 ml/min/1.73 sqM) Est GFR (CKD-EPI)NonAf (>60 ml/min/1.73 sqM) Glucose (74-99) mg/dL Plasma Lactic Acid Rigoberto (0.7-2.0) mmol/L Calcium (8.4-10.2) mg/dL Total Bilirubin (0.2-1.3) mg/dL AST (17-59) U/L ALT (4-49) U/L Alkaline Phosphatase (38-126) U/L Troponin I (0.000-0.034) ng/mL NT-Pro-B Natriuret Pep pg/mL Total Protein (6.3-8.2) g/dL Albumin (3.5-5.0) g/dL Procalcitonin 0.03 (0.02-0.09) ng/mL Coronavirus (PCR) Not Detected (Not Detectd) Disposition Clinical Impression: COPD with exacerbation, Shortness of breath, CHF (congestive heart failure) Disposition: ADMITTED IP TO THIS HOSP Is patient prescribed a controlled substance at d/c from ED?: No
[2022-03-06] MEDS: FUROSEMIDE 40 MG TAB PO SCH (08:58)
[2022-03-06] MEDS: carvediloL 3.125 MG TAB PO SCH ×2 (08:58→19:06)
[2022-03-06] MEDS: ASPIRIN 81 MG PO SCH (08:58)
[2022-03-06] MEDS ORDERED: LOSARTAN 25 MG TAB PO SCH (09:00)
[2022-03-06] MEDS: ALBUTEROL NEBULIZED 2.5 MG/3 ML INHALATION SCH ×4 (09:11→19:47)
[2022-03-06] MEDS: methylPREDNISolone SOD SUCCI 125 MG/2 ML VIAL IV SCH ×2 (13:05→19:05)
--- NOTE | 2022-03-06 14:45 | HP ---
HISTORY AND PHYSICAL This is a 71-year-old white male with history of COPD. He has oxygen on 2 L shortness of breath been trying to sleep. He could not move. He had no movement, called EMS. He was short of breath, could not move. He was placed on CPAP by EMS, nebulizers, came to the ER, severe shortness of breath. He states he has been out of his medicines also. Known history of oxygen-dependent COPD, CHF. MEDICATIONS: Aspirin at home, Lipitor 40 daily, Lasix 40 daily, Cozaar 12.5 daily, Coreg 3.125 b.i.d., DuoNeb q.i.d., Entresto b.i.d., Medrol Dosepak, [place], Invega. ALLERGIES: FLU SHOT, PNEUMONIA SHOT, MORPHINE, PENICILLIN. REVIEW OF SYSTEMS: Fourteen-point review of systems: Weakness, shortness of breath at rest, fatigue, near- syncope. Otherwise negative. PAST MEDICAL HISTORY: Coronary artery disease, CHF, dementia, hypertension, seizure disorder, systolic CHF, hypothyroidism, ischemic cardiomyopathy, hypothyroid, CAD, CABG in 1995, two heart catheterizations with stents after CABG in [place], [place]. Possible tailbone cyst, inguinal hernia repair. FAMILY HISTORY: Mother with TB. Father alcoholic. PHYSICAL EXAMINATION: He is thin, cachectic. He looks his stated age. He looks very weak and fatigued. Psych: He gives appropriate answers, but he is weak and has a soft voice. Lungs with wheezes x4, scattered. No rhonchi. Hematology negative Homans. GI soft, nontender. Cardiovascular S1, S2. Lungs show wheezes at the base. Accessory muscle use. No chest wall tenderness. Pupils equal, round, reactive. Temperature 97, pulse 75 to 95, respiratory rate 21 to 26, blood pressure 114/155 70s to 108. Hemoglobin is 10, white count 9, BUN is 21, creatinine 1.12. ASSESSMENT: 1. Chronic obstructive pulmonary disease. 2. Tracheobronchitis. 3. Acute hypoxemic respiratory distress. 4. Noncompliance with medications. 5. History of schizophrenia. Continue current medications. Treat with steroids, updrafts, CPAP. Do procalcitonin. Rule out bacterial infection. Prognosis guarded. MMODL / IJN: [id number] /
[2022-03-06 16:58] LABS: Glucose,Whole Blood 175 mg/dL (70-110)
[2022-03-06] MEDS: SACUBITRIL/VALSARTAN 24 MG-26 MG TABLET PO SCH ×2 (18:58→21:20)
--- NOTE | 2022-03-06 19:08 | CONS ---
CONSULTATION CHIEF COMPLAINT: Shortness of breath. Magaly is a 71-year-old gentleman with history of coronary artery disease, status post prior bypass, ischemic cardiomyopathy, status post AICD, hypertension and dyslipidemia who presented to hospital with shortness of breath. At the time of my evaluation he has a BiPAP on, seems to be in respiratory distress and is not able to give much information. His clinical presentation seems to be related to acute exacerbation of chronic systolic heart failure. Patient was in the hospital not too long ago, had an echocardiogram in 2019 that revealed moderate LV dysfunction. He had a stress test at that time that was negative for ischemia. An EKG showed sinus rhythm with evidence of prior inferior wall myocardial infarction with nonspecific ST-T wave changes. He had a coronavirus test that is negative. Troponin is normal. BNP is elevated. PAST MEDICAL HISTORY: Significant for coronary artery disease, status post CABG, ischemic cardiomyopathy and COPD. CURRENT MEDICATIONS: Current medications include Medrol Dosepak, Coreg, Entresto, Cozaar, Lasix, Lipitor and aspirin. ALLERGIES: MORPHINE, INSULIN AND INFLUENZA VACCINE. SOCIAL HISTORY: Negative for current smoking. There is no history of EtOH abuse or drug abuse. REVIEW OF SYSTEMS: HEENT is unremarkable. CARDIAC: As described above. RESPIRATORY: As described above. GI: Negative. GENITOURINARY: Negative. ALLERGY/IMMUNOLOGY: Negative. SKIN: Negative. MUSCULOSKELETAL: Significant for arthritis. PSYCHOSOCIAL: Negative. DERMATOLOGY: Negative. CONSTITUTIONAL: Negative. ONCOLOGICAL: Negative. POST ANESTHESIA NURSE: Negative. Rest of the system review is not relevant. PHYSICAL EXAMINATION: Comfortable at rest. Afebrile. Vital signs are stable. Chest exam reveals diminished air entry with occasional rhonchi. Heart exam reveals first and second heart sounds and a systolic murmur at the apex. Abdomen is soft. Examination of extremities revealed 2+ edema. Peripheral pulses are felt. LABS: BNP is elevated. Troponin is negative. Potassium is normal. Creatinine is normal. ASSESSMENT: 1. Acute exacerbation of chronic systolic heart failure. 2. Chronic obstructive pulmonary disease exacerbation. 3. Coronary artery disease, status post coronary artery bypass grafting. PLAN: Treat the patient with IV Lasix, inhalers, nebulizers, and continue his medications. Obtain a 2D echo to assess the LV function. He has known severe LV systolic dysfunction. MMODL / IJN: [id number] /
[2022-03-06 20:30] LABS: Glucose,Whole Blood 223 mg/dL (70-110)
[2022-03-06] MEDS: ATORVASTATIN 40 MG TAB PO SCH (21:19)
[2022-03-06] MEDS: PALIPERIDONE 3 MG TAB.ER.24 PO SCH (21:20)
[2022-03-06] MEDS: INSULIN ASPART (NovoLOG) 100 UNIT/ML VIAL SQ SCH (21:20)
--- NOTE | 2022-03-06 23:22 | P.CNPUL ---
History of Present Illness Consult date: 03/06/22 Reason for consult: dyspnea, cough, hypoxemia Chief complaint: Shortness of breath History of present illness: Patient is a 71-year-old male with COPD and chronic hypoxic respiratory failure patient uses 2 L oxygen at home due to increasing shortness of breath decided to come into the hospital, and Route patient received nebulizers and treatment along with CPAP and switched to BiPAP in the emergency department patient initially on pressure setting of 10/5 with 40% oxygen and 12/8 currently on 4 L oxygen shortness of breath significantly improved denies any chest pain intermittent cough is present mostly dry sometime associated with white sputum white cell count is normal, BNP is 2650, glucose is 223, covert is negative, chest x-ray significant for tiny small right pleural effusion and interstitial edema suggestive of heart failure. Currently patient is treated with diuretics bronchodilators and continuation of home medications along with high-dose IV steroids Review of Systems All systems: negative Past Medical History Past Medical History: Coronary Artery Disease (CAD), Heart Failure, Dementia, Hyperlipidemia, Hypertension, Seizure Disorder, Syncope, Thyroid Disorder Additional Past Medical History / Comment(s): Ischemic cardiomyopathy, EF 20- 25%, last seizure about 2 yrs ago, hypothyroid.neuropathy "WHEN HE WORKED HE HAD A CRUSHING INJURY -COLLAPSED LUNGS C/T AND HAS CHRONIC BACK PAIN"" pt states he is schizophrenic/bipolar. History of Any Multi-Drug Resistant Organisms: None Reported Past Surgical History: AICD, Back Surgery, Coronary Bypass/CABG, Heart Catheterization, Heart Catheterization With Stent Additional Past Surgical History / Comment(s): 1995 CABG 4 vessel in [place], has had 2"HEART CATHS/had 2 STENTS after cabg sx.pt stated they were done in [facility]. "sx on tailbone, cortisone injections, devin inguinal hernia repair Past Anesthesia/Blood Transfusion Reactions: No Reported Reaction Date of Last Stent Placement:: 1995 Type of Cardiac Device: AICD Device Placement Date:: 1995 in [facility] Past Psychological History: Anxiety, Depression, Schizoaffective Disorder, Schizophrenia Additional Psychological History / Comment(s): . Smoking Status: Current every day smoker Past Alcohol Use History: None Reported, Daily Additional Past Alcohol Use History / Comment(s): . Past Drug Use History: None Reported Additional Drug Use History / Comment(s): Pt states he smokes marijuana on occasion. - Past Family History Mother Family Medical History: Respiratory Disorder Additional Family Medical History / Comment(s): Mother had TB Father Additional Family Medical History / Comment(s): Father was an alcoholic. Medications and Allergies Home Medications Medication Instructions Recorded Confirmed Type Aspirin 81 mg PO DAILY #30 tab 01/15/22 03/06/22 Rx Atorvastatin [Lipitor] 40 mg PO HS #30 tab 01/15/22 03/06/22 Rx Furosemide [Lasix] 40 mg PO DAILY #30 tab 01/15/22 03/06/22 Rx Losartan [Cozaar] 12.5 mg PO DAILY #30 tab 01/15/22 03/06/22 Rx carvediloL [Coreg] 3.125 mg PO BID-W/MEALS #60 tab 01/15/22 03/06/22 Rx Ipratropium-Albuterol Nebulize 3 ml INHALATION RT-QID each 01/19/22 03/06/22 Rx [Duoneb 0.5 mg-3 mg/3 ml Soln] methylPREDNISolone Dose Pack 24 mg PO DAILY 5 Days #1 tab 01/19/22 03/06/22 Rx [Medrol Dose Pack] Paliperidone [Invega] 3 mg PO HS tab 01/22/22 03/06/22 Rx Sacubitril/Valsartan [Entresto 24 1 tab PO BID 03/06/22 03/06/22 History mg-26 mg Tablet] Allergies Allergy/AdvReac Type Severity Reaction Status Date / Time morphine Allergy Anaphylaxis Verified 03/06/22 11:57 Penicillins Allergy Swelling Verified 03/06/22 11:57 on entire body Influenza Virus Vaccines AdvReac Unknown Verified 03/06/22 11:57 pneumococcal vaccine AdvReac Unknown Verified 03/06/22 11:57 Physical Exam Vitals: Vital Signs Temp Pulse Pulse Resp BP BP Pulse Ox 03/06/22 20:00 98 F 75 14 117/74 100 03/06/22 19:56 72 03/06/22 19:49 70 03/06/22 15:20 64 24 03/06/22 15:15 97.6 F 64 24 126/97 100 03/06/22 15:04 75 03/06/22 14:44 03/06/22 14:43 73 03/06/22 13:03 67 20 137/88 98 03/06/22 09:25 72 03/06/22 09:12 84 03/06/22 09:00 73 21 120/98 100 03/06/22 08:39 03/06/22 06:58 84 24 133/85 100 03/06/22 05:04 75 21 114/78 100 03/06/22 03:39 97 F L 95 26 H 155/108 100 FiO2 03/06/22 20:00 03/06/22 19:56 03/06/22 19:49 03/06/22 15:20 03/06/22 15:15 40 03/06/22 15:04 03/06/22 14:44 40 03/06/22 14:43 03/06/22 13:03 03/06/22 09:25 03/06/22 09:12 03/06/22 09:00 03/06/22 08:39 40 03/06/22 06:58 03/06/22 05:04 03/06/22 03:39 40 Intake and Output 03/06/22 03/06/22 03/07/22 14:59 22:59 06:59 Intake Total 118 Balance 118 Intake: Oral 118 Other: Voiding Method External Catheter Weight 58.967 kg - Constitutional General appearance: average body habitus, disheveled - EENT Eyes: EOMI, PERRLA Ears: bilateral: normal - Neck Carotids: bilateral: upstroke normal - Respiratory Respiratory: bilateral: rales (Bilateral bases) - Cardiovascular Rhythm: regular Heart sounds: normal: S1, S2 - Gastrointestinal General gastrointestinal: normal bowel sounds, soft - Neurologic Neurologic: CNII-XII intact - Musculoskeletal Musculoskeletal: gait normal, generalized weakness - Psychiatric Psychiatric: A&O x's 3, appropriate affect, intact judgment & insight Results - Laboratory Findings CBC and BMP: 03/06/22 03:49 03/06/22 03:49 PT/INR, D-dimer PT 10.7 sec (9.0-12.0) 03/06/22 03:49 INR 1.0 (<1.2) 03/06/22 03:49 Abnormal lab findings: Abnormal Labs 03/06/22 03/06/22 03/06/22 03:49 03:49 03:49 RBC 3.75 L Hgb 10.6 L D Hct 34.2 L RDW 17.3 H APTT 20.5 L BUN 21 H Glucose 120 H POC Glucose (mg/dL) 03/06/22 03/06/22 16:39 20:10 RBC Hgb Hct RDW APTT BUN Glucose POC Glucose (mg/dL) 175 H 223 H - Diagnostic Findings Chest x-ray: report reviewed, image reviewed Assessment and Plan Assessment: Acute on chronic hypoxic respiratory failure Acute COPD exacerbation Acute exacerbation of congestive heart failure Hypertension hypertensive cardiovascular disease Type 2 diabetes mellitus Plan: Continue supplemental oxygen titrated down as tolerated Continue diuretics Follow up on echocardiogram Will reduce the dose of IV Solu-Medrol Optimize therapy for type 2 diabetes mellitus Optimize therapy for heart failure Further recommendations pending plan of care as per clinical response of the patient Time with Patient: Greater than 30
[2022-03-07 06:47] LABS: Glucose,Whole Blood 160 mg/dL (70-110)
[2022-03-07] MEDS: INSULIN ASPART (NovoLOG) 100 UNIT/ML VIAL SQ SCH ×4 (06:57→20:29)
[2022-03-07] MEDS: carvediloL 3.125 MG TAB PO SCH ×2 (06:57→16:59)
[2022-03-07] MEDS: ALBUTEROL NEBULIZED 2.5 MG/3 ML INHALATION SCH ×4 (08:24→20:15)
[2022-03-07] MEDS: methylPREDNISolone SOD SUCCI 40 MG/ML 1 ML VIAL IV SCH ×2 (10:41→20:28)
[2022-03-07] MEDS: SACUBITRIL/VALSARTAN 24 MG-26 MG TABLET PO SCH ×2 (10:41→20:28)
[2022-03-07] MEDS: FUROSEMIDE 40 MG TAB PO SCH (10:41)
[2022-03-07] MEDS: ASPIRIN 81 MG PO SCH (10:41)
[2022-03-07 11:53] LABS: Glucose,Whole Blood 187 mg/dL (70-110)
--- NOTE | 2022-03-07 14:16 | PN ---
PROGRESS NOTE Magaly is a 71-year-old gentleman with history of severe COPD, cardiomyopathy with congestive heart failure, hypertension, dyslipidemia, who presented to hospital in respiratory distress. He had a combination of COPD and CHF exacerbations that were treated with BiPAP, diuretics and nebulizers with significant improvement in his symptoms. At the time of my evaluation this morning, he is on 2 L nasal O2 and his respiratory distress has improved. On exam, afebrile. Heart rate is 70 beats per minute. Blood pressure is 106/60, respiratory rate is 18. Chest exam reveals bilateral rhonchi. Heart exam reveals first and second heart sounds. Systolic murmur at the left lower sternal border. Abdomen: Soft. Exam of extremities reveals 1+ edema. LABS: Labs show that the potassium is 4.4, creatinine is 1.1, hemoglobin is 10.6. ASSESSMENT: Respiratory failure secondary to a combination of chronic obstructive pulmonary disease and congestive heart failure exacerbations. PLAN: Continue the patient on aspirin, Lipitor, Coreg, Lasix, nebulizers, and steroids that he had been started on along with Entresto. Hopefully home over the next 24-48 hours. MMODL / IJN: [id number] /
[2022-03-07 16:31] LABS: Glucose,Whole Blood 186 mg/dL (70-110)
[2022-03-07 20:11] LABS: Glucose,Whole Blood 188 mg/dL (70-110)
[2022-03-07] MEDS: PALIPERIDONE 3 MG TAB.ER.24 PO SCH (20:28)
[2022-03-07] MEDS: ATORVASTATIN 40 MG TAB PO SCH (20:28)
[2022-03-08 06:05] LABS: Glucose,Whole Blood 148 mg/dL (70-110)
[2022-03-08] MEDS: carvediloL 3.125 MG TAB PO SCH ×2 (06:27→18:55)
[2022-03-08] MEDS: INSULIN ASPART (NovoLOG) 100 UNIT/ML VIAL SQ SCH ×4 (06:27→21:00)
[2022-03-08] MEDS: ALBUTEROL NEBULIZED 2.5 MG/3 ML INHALATION SCH ×4 (08:40→21:08)
[2022-03-08] MEDS: ASPIRIN 81 MG PO SCH (10:13)
[2022-03-08] MEDS: FUROSEMIDE 40 MG TAB PO SCH (10:14)
[2022-03-08] MEDS: methylPREDNISolone SOD SUCCI 40 MG/ML 1 ML VIAL IV SCH ×2 (10:14→20:59)
[2022-03-08] MEDS: SACUBITRIL/VALSARTAN 24 MG-26 MG TABLET PO SCH ×2 (10:14→22:03)
[2022-03-08 11:28] LABS: Glucose,Whole Blood 132 mg/dL (70-110)
--- NOTE | 2022-03-08 11:51 | P.PN ---
Subjective This is a 71-year-old male with a past medical history significant for coronary artery disease with previous CABG performed in [place], ischemic c ardiomyopathy EF 25%, with AICD implantation in [place], hypertension, hyperlipidemia, congestive heart failure, and nicotine dependence. Patient does not follow with a sports management intern. We have been asked to see the patient in consultation for congestive heart failure. Patient seen and examined at bedside, no acute distress. He states his breathing has improved. He denies any chest pain. Vital signs are stable. MEDS: Aspirin 81 mg daily, atorvastatin 40 mg nightly, Coreg 3.125 mg twice a day, Lasix 40 mg daily, Entresto 24mg-26mg BID GENERAL: In no acute distress. NECK: Supple without JVD LUNGS: Breath sounds mild crackles in the bases to auscultation bilaterally. Respiration equal and unlabored. No wheezes, rales or rhonchi. HEART: Regular rate and rhythm. S1 and S2 heard. EXTREMITIES: Normal range of motion, no edema. No clubbing or cyanosis. Peripheral pulses intact. ASSESSMENT Acute on chronic hypoxic respiratory failure COPD exacerbation Acute on chronic heart failure with reduced ejection fraction Coronary artery disease with previous CABG Ischemic cardiomyopathy with an EF of 25% status post AICD implantation Hypertension Hyperlipidemia Chronic nicotine dependence Type 2 diabetes PLAN From a cardiology perspective, no further changes at this time. Continue PO Lasix Continue with Aspirin, Statin, Coreg, Entresto Pulmonary following, patient currently on steriods Further recommendations based on course Nurse Practitioner note has been reviewed, I agree with a documented findings and plan of care. Patient was seen and examined. Objective - Vital Signs Vital signs: Vital Signs Temp 97.5 F L 03/07/22 16:58 Pulse 64 03/07/22 16:58 Resp 13 03/07/22 16:58 BP 120/71 03/07/22 16:58 Pulse Ox 99 03/07/22 16:58 FiO2 40 03/06/22 15:15 Intake & Output 03/07/22 03/07/22 03/08/22 06:59 18:59 06:59 Intake Total 118 Output Total 600 1000 Balance -600 -882 Weight 58.967 kg Intake: Oral 118 Output: Urine 600 1000 Other: Voiding Method External Catheter External Catheter # Bowel Movements 0 - Labs CBC & Chem 7: 03/06/22 03:49 03/06/22 03:49 Labs: Abnormal Lab Results - Last 24 Hours (Table) 03/06/22 03/07/22 03/07/22 Range/Units 20:10 06:42 11:37 POC Glucose (mg/dL) 223 H 160 H 187 H (70-110) mg/dL 03/07/22 Range/Units 16:29 POC Glucose (mg/dL) 186 H (70-110) mg/dL
[2022-03-08 16:21] LABS: Glucose,Whole Blood 213 mg/dL (70-110)
[2022-03-08 20:11] LABS: Glucose,Whole Blood 280 mg/dL (70-110)
[2022-03-08] MEDS: MIDODRINE 5 MG TAB PO SCH (20:20)
[2022-03-08] MEDS: SODIUM CHLORIDE 0.9% 1,000 ML IV SCH (20:20)
[2022-03-08] MEDS: ATORVASTATIN 40 MG TAB PO SCH (20:59)
[2022-03-08] MEDS: PALIPERIDONE 3 MG TAB.ER.24 PO SCH (21:00)
[2022-03-09 06:11] LABS: Glucose,Whole Blood 134 mg/dL (70-110)
[2022-03-09] MEDS: carvediloL 3.125 MG TAB PO SCH ×2 (06:35→17:04)
[2022-03-09] MEDS: MIDODRINE 5 MG TAB PO SCH ×3 (06:38→16:27)
[2022-03-09] MEDS: INSULIN ASPART (NovoLOG) 100 UNIT/ML VIAL SQ SCH ×4 (06:38→21:11)
[2022-03-09] MEDS: ALBUTEROL NEBULIZED 2.5 MG/3 ML INHALATION SCH ×4 (07:16→20:44)
[2022-03-09] MEDS ORDERED: MIDODRINE 5 MG TAB PO SCH (07:30)
[2022-03-09] MEDS: SACUBITRIL/VALSARTAN 24 MG-26 MG TABLET PO SCH ×2 (09:19→21:00)
[2022-03-09] MEDS: FUROSEMIDE 40 MG TAB PO SCH (09:19)
[2022-03-09] MEDS: methylPREDNISolone SOD SUCCI 40 MG/ML 1 ML VIAL IV SCH (09:19)
[2022-03-09] MEDS: ASPIRIN 81 MG PO SCH (09:19)
[2022-03-09 11:37] LABS: Glucose,Whole Blood 112 mg/dL (70-110)
--- NOTE | 2022-03-09 12:04 | P.PN ---
Subjective This is a 71-year-old male with a past medical history significant for coronary artery disease with previous CABG performed in [place], ischemic c ardiomyopathy EF 25%, with AICD implantation in [place], hypertension, hyperlipidemia, congestive heart failure, and nicotine dependence. Patient does not follow with a religion teacher. We have been asked to see the patient in consultation for congestive heart failure. Patient seen and examined at bedside, no acute distress. He states his breathing has improved. He denies any chest pain. Vital signs are stable. MEDS: Aspirin 81 mg daily, atorvastatin 40 mg nightly, Coreg 3.125 mg twice a day, Lasix 40 mg daily, Entresto 24mg-26mg BID GENERAL: In no acute distress. NECK: Supple without JVD LUNGS: Breath sounds diminished in the bases to auscultation bilaterally. Respiration equal and unlabored. No wheezes, rales or rhonchi. HEART: Regular rate and rhythm. S1 and S2 heard. EXTREMITIES: Normal range of motion, no edema. No clubbing or cyanosis. Peripheral pulses intact. ASSESSMENT Acute on chronic hypoxic respiratory failure COPD exacerbation Acute on chronic heart failure with reduced ejection fraction Coronary artery disease with previous CABG Ischemic cardiomyopathy with an EF of 25% status post AICD implantation Hypertension Hyperlipidemia Chronic nicotine dependence Type 2 diabetes PLAN From a cardiology perspective, no further changes at this time. Continue PO Lasix, Aspirin, Statin, Coreg, Entresto Rest of management per primary Follow up outpatient within 1-2 weeks post discharge Nurse Practitioner note has been reviewed, I agree with a documented findings and plan of care. Patient was seen and examined. Objective - Vital Signs Vital signs: Vital Signs Temp 97.6 F 03/09/22 04:00 Pulse 60 03/09/22 08:00 Resp 16 03/09/22 08:00 BP 123/75 03/09/22 08:00 Pulse Ox 95 03/09/22 10:00 FiO2 28 03/07/22 20:16 Intake & Output 03/08/22 03/09/22 03/09/22 18:59 06:59 18:59 Intake Total 238 Output Total 150 Balance 238 -150 Weight 60 kg 58.3 kg Intake: Oral 238 Output: Urine 150 Other: Voiding Method External Catheter External Catheter # Voids 2 0 # Bowel Movements 0 - Labs CBC & Chem 7: 03/06/22 03:49 03/06/22 03:49 Labs: Abnormal Lab Results - Last 24 Hours (Table) 03/08/22 03/08/22 03/08/22 Range/Units 11:27 16:19 20:10 POC Glucose (mg/dL) 132 H 213 H 280 H (70-110) mg/dL 03/09/22 Range/Units 06:09 POC Glucose (mg/dL) 134 H (70-110) mg/dL
[2022-03-09 16:19] LABS: Glucose,Whole Blood 217 mg/dL (70-110)
--- NOTE | 2022-03-09 18:44 | P.PN ---
Subjective Progress Note Date: 03/09/22 Principal diagnosis: Acute on chronic hypoxic respiratory failure Acute COPD exacerbation Acute exacerbation of congestive heart failure Hypertension hypertensive cardiovascular disease Type 2 diabetes mellitus 03/09/2022, patient seen eval reexamined during the rounds labs reviewed medications reviewed care plan discussed, complaining of mild shortness of breath however patient off of oxygen room air breathing comfortably, patient prior cardio vascular workup revealed ejection fraction 25% with AICD, we'll taper down the steroids further Patient is a 71-year-old male with COPD and chronic hypoxic respiratory failure patient uses 2 L oxygen at home due to increasing shortness of breath decided to come into the hospital, and Route patient received nebulizers and treatment along with CPAP and switched to BiPAP in the emergency department patient initially on pressure setting of 10/5 with 40% oxygen and / currently on 4 L oxygen shortness of breath significantly improved denies any chest pain intermittent cough is present mostly dry sometime associated with white sputum white cell count is normal, BNP is 2650, glucose is 223, covert is negative, chest x-ray significant for tiny small right pleural effusion and interstitial edema suggestive of heart failure. Currently patient is treated with diuretics bronchodilators and continuation of home medications along with high-dose IV steroids Objective - Vital Signs Vital signs: Vital Signs Temp 97.6 F 03/09/22 04:00 Pulse 64 03/09/22 16:00 Resp 16 03/09/22 16:00 BP 93/58 03/09/22 16:00 Pulse Ox 95 03/09/22 16:00 FiO2 28 03/07/22 20:16 Intake & Output 03/08/22 03/09/22 03/09/22 18:59 06:59 18:59 Intake Total 238 720 Output Total 150 750 Balance 238 -150 -30 Weight 60 kg 58.3 kg Intake: Oral 238 720 Output: Urine 150 750 Other: Voiding Method External Catheter External Catheter External Catheter # Voids 2 0 # Bowel Movements 0 - Exam - Constitutional General appearance: average body habitus, disheveled - EENT Eyes: EOMI, PERRLA Ears: bilateral: normal - Neck Carotids: bilateral: upstroke normal - Respiratory Respiratory: bilateral: rales (Bilateral bases) - Cardiovascular Rhythm: regular Heart sounds: normal: S1, S2 - Gastrointestinal General gastrointestinal: normal bowel sounds, soft - Neurologic Neurologic: CNII-XII intact - Musculoskeletal Musculoskeletal: gait normal, generalized weakness - Psychiatric Psychiatric: A&O x's 3, appropriate affect, intact judgment & insight - Labs CBC & Chem 7: 03/06/22 03:49 03/06/22 03:49 Labs: Abnormal Lab Results - Last 24 Hours (Table) 03/08/22 03/09/22 03/09/22 Range/Units 20:10 06:09 11:36 POC Glucose (mg/dL) 280 H 134 H 112 H (70-110) mg/dL 03/09/22 Range/Units 16:17 POC Glucose (mg/dL) 217 H (70-110) mg/dL Assessment and Plan Assessment: Acute on chronic hypoxic respiratory failure Acute exacerbation of congestive heart failure Acute COPD exacerbation Hypertension hypertensive cardiovascular disease Type 2 diabetes mellitus Plan: Continue supplemental oxygen as needed Continue diuretics Will reduce the dose of IV Solu-Medrol Optimize therapy for type 2 diabetes mellitus Optimize therapy for heart failure Further recommendations pending plan of care as per clinical response of the patient Time with Patient: Greater than 30
[2022-03-09] MEDS: SODIUM CHLORIDE 0.9% 1,000 ML IV SCH (18:54)
--- NOTE | 2022-03-09 19:37 | PN ---
PROGRESS NOTE DATE OF SERVICE: 03/08/2022 This 71-year-old white male has COPD exacerbation, is noncompliant with medications, is improving with IV steroids. He is breathing better. Cardiology has seen him. Pulmonary has seen him. He is back on his medications. His vital signs are better. Sugars are mid 100s to 200. He is getting his strength back. His breathing is improving. Cardiovascular S1, S2. Lungs scattered wheeze. Hematology negative Homans. Psych blank affect. Cardiology has not changed anything. He is continued on p.o. Lasix Coreg, Entresto. Pulmonary will try to get him improved. PT/OT for systolic heart failure, possibly get him into a jail, as he keeps coming back with noncompliance with medications. Prognosis guarded. MMODL / IJN: [id number] /
[2022-03-09 20:04] LABS: Glucose,Whole Blood 207 mg/dL (70-110)
[2022-03-09] MEDS: ATORVASTATIN 40 MG TAB PO SCH (21:11)
[2022-03-09] MEDS: PALIPERIDONE 3 MG TAB.ER.24 PO SCH (21:11)
[2022-03-10 06:10] LABS: Glucose,Whole Blood 92 mg/dL (70-110)
[2022-03-10] MEDS: carvediloL 3.125 MG TAB PO SCH ×2 (06:35→15:46)
[2022-03-10] MEDS: INSULIN ASPART (NovoLOG) 100 UNIT/ML VIAL SQ SCH ×4 (06:35→20:32)
[2022-03-10] MEDS: MIDODRINE 5 MG TAB PO SCH ×3 (06:37→15:57)
[2022-03-10] MEDS: ALBUTEROL NEBULIZED 2.5 MG/3 ML INHALATION SCH ×4 (08:47→20:33)
[2022-03-10] MEDS ORDERED: methylPREDNISolone SOD SUCCI 40 MG/ML 1 ML VIAL IV SCH (09:00)
--- NOTE | 2022-03-10 09:30 | P.PN ---
Subjective Progress Note Date: 03/10/22 Principal diagnosis: Acute on chronic hypoxic respiratory failure Acute COPD exacerbation Acute exacerbation of congestive heart failure Hypertension hypertensive cardiovascular disease Type 2 diabetes mellitus 03/10/2022, patient seen eval examined during the rounds labs reviewed medications reviewed care plan discussed with the staff present patient currently on room air breathing comfortably denies any chest pain or shortness of breath has been on IV steroids once daily, will continue it will ask PT OT to evaluate the patient to increase mobility if possible 03/09/2022, patient seen eval reexamined during the rounds labs reviewed medications reviewed care plan discussed, complaining of mild shortness of breath however patient off of oxygen room air breathing comfortably, patient prior cardio vascular workup revealed ejection fraction 25% with AICD, we'll taper down the steroids further Patient is a 71-year-old male with COPD and chronic hypoxic respiratory failure patient uses 2 L oxygen at home due to increasing shortness of breath decided to come into the hospital, and Route patient received nebulizers and treatment along with CPAP and switched to BiPAP in the emergency department patient initially on pressure setting of 10/5 with 40% oxygen and / currently on 4 L oxygen shortness of breath significantly improved denies any chest pain intermittent cough is present mostly dry sometime associated with white sputum white cell count is normal, BNP is 2650, glucose is 223, covert is negative, chest x-ray significant for tiny small right pleural effusion and interstitial edema suggestive of heart failure. Currently patient is treated with diuretics bronchodilators and continuation of home medications along with high-dose IV steroids Objective - Vital Signs Vital signs: Vital Signs Temp 97.9 F 03/10/22 03:54 Pulse 60 03/10/22 08:58 Resp 12 03/10/22 03:54 BP 105/67 03/10/22 03:54 Pulse Ox 96 03/10/22 03:54 FiO2 28 03/07/22 20:16 Intake & Output 03/09/22 03/10/22 03/10/22 18:59 06:59 18:59 Intake Total 720 Output Total 750 300 Balance -30 -300 Weight 60 kg Intake: Oral 720 Output: Urine 750 300 Other: Voiding Method External Catheter Diaper External Catheter - Exam - Constitutional General appearance: average body habitus, disheveled - EENT Eyes: EOMI, PERRLA Ears: bilateral: normal - Neck Carotids: bilateral: upstroke normal - Respiratory Respiratory: bilateral: rales (Bilateral bases) - Cardiovascular Rhythm: regular Heart sounds: normal: S1, S2 - Gastrointestinal General gastrointestinal: normal bowel sounds, soft - Neurologic Neurologic: CNII-XII intact - Musculoskeletal Musculoskeletal: gait normal, generalized weakness - Psychiatric Psychiatric: A&O x's 3, appropriate affect, intact judgment & insight - Labs CBC & Chem 7: 03/06/22 03:49 03/06/22 03:49 Labs: Abnormal Lab Results - Last 24 Hours (Table) 03/09/22 03/09/22 03/09/22 Range/Units 11:36 16:17 20:03 POC Glucose (mg/dL) 112 H 217 H 207 H (70-110) mg/dL Assessment and Plan Assessment: Acute on chronic hypoxic respiratory failure, improved now off of oxygen Acute exacerbation of congestive heart failure, more likely Acute COPD exacerbation, less likely Hypertension hypertensive cardiovascular disease Type 2 diabetes mellitus Plan: Increase activity as tolerated, PT OT to evaluate the patient and make rec ommendations Continue supplemental oxygen as needed Continue diuretics Will reduce the dose of IV Solu-Medrol and monitor off of IV steroids after today Optimize therapy for type 2 diabetes mellitus Optimize therapy for heart failure Further recommendations pending plan of care as per clinical response of the patient Time with Patient: Greater than 30
[2022-03-10] MEDS: ASPIRIN 81 MG PO SCH (09:41)
[2022-03-10 11:20] LABS: Glucose,Whole Blood 167 mg/dL (70-110)
[2022-03-10] MEDS: SACUBITRIL/VALSARTAN 24 MG-26 MG TABLET PO SCH ×2 (12:24→19:53)
[2022-03-10] MEDS: FUROSEMIDE 40 MG TAB PO SCH (12:28)
--- NOTE | 2022-03-10 12:33 | P.PN ---
Subjective This is a 71-year-old male with a past medical history significant for coronary artery disease with previous CABG performed in [place], ischemic c ardiomyopathy EF 25%, with AICD implantation in [place], hypertension, hyperlipidemia, congestive heart failure, and nicotine dependence. Patient does not follow with a bank officer. We have been asked to see the patient in consultation for congestive heart failure. Patient seen and examined at bedside, no acute distress. He states his breathing has improved. Continues to have some mild shortness of breath. He denies any chest pain. Vital signs are stable. MEDS: Aspirin 81 mg daily, atorvastatin 40 mg nightly, Coreg 3.125 mg twice a day, Lasix 40 mg daily, Entresto 24mg-26mg BID GENERAL: In no acute distress. NECK: Supple without JVD LUNGS: Breath sounds diminished in the bases to auscultation bilaterally. Respiration equal and unlabored. No wheezes, rales or rhonchi. HEART: Regular rate and rhythm. S1 and S2 heard. EXTREMITIES: Normal range of motion, no edema. No clubbing or cyanosis. Peripheral pulses intact. ASSESSMENT Acute on chronic hypoxic respiratory failure COPD exacerbation Acute on chronic heart failure with reduced ejection fraction Coronary artery disease with previous CABG Ischemic cardiomyopathy with an EF of 25% status post AICD implantation Hypertension Hyperlipidemia Chronic nicotine dependence Type 2 diabetes PLAN From a cardiology perspective, no further changes at this time. Pulmonary following for COPD exacerbation and stopped steroids today. Continue PO Lasix, Aspirin, Statin, Coreg, Entresto Rest of management per primary Follow up outpatient within 1-2 weeks post discharge Nurse Practitioner note has been reviewed, I agree with a documented findings and plan of care. Patient was seen and examined. Objective - Vital Signs Vital signs: Vital Signs Temp 97.9 F 03/10/22 03:54 Pulse 60 03/10/22 08:58 Resp 16 03/10/22 08:00 BP 78/34 03/10/22 08:00 Pulse Ox 95 03/10/22 08:00 FiO2 28 03/07/22 20:16 Intake & Output 03/09/22 03/10/22 03/10/22 18:59 06:59 18:59 Intake Total 720 Output Total 750 300 450 Balance -30 -300 -450 Weight 60 kg Intake: Oral 720 Output: Urine 750 300 450 Other: Voiding Method External Catheter Diaper External Catheter - Labs CBC & Chem 7: 03/06/22 03:49 03/06/22 03:49 Labs: Abnormal Lab Results - Last 24 Hours (Table) 03/09/22 03/09/22 03/09/22 Range/Units 11:36 16:17 20:03 POC Glucose (mg/dL) 112 H 217 H 207 H (70-110) mg/dL
[2022-03-10] MEDS: SODIUM CHLORIDE 0.9% 1,000 ML IV SCH (16:03)
[2022-03-10 16:40] LABS: Glucose,Whole Blood 97 mg/dL (70-110)
[2022-03-10] MEDS: HEPARIN SODIUM,PORCINE/PF 5,000 UNIT/0.5 ML SYRINGE SQ SCH (19:53)
[2022-03-10] MEDS: ATORVASTATIN 40 MG TAB PO SCH (19:53)
[2022-03-10] MEDS: PALIPERIDONE 3 MG TAB.ER.24 PO SCH (19:54)
[2022-03-10 20:13] LABS: Glucose,Whole Blood 127 mg/dL (70-110)
[2022-03-11] MEDS: SODIUM CHLORIDE 0.9% 1,000 ML IV SCH (06:09)
[2022-03-11 06:12] LABS: Glucose,Whole Blood 106 mg/dL (70-110)
[2022-03-11] MEDS: carvediloL 3.125 MG TAB PO SCH ×2 (06:16→16:18)
[2022-03-11] MEDS: INSULIN ASPART (NovoLOG) 100 UNIT/ML VIAL SQ SCH ×4 (06:16→21:28)
[2022-03-11] MEDS: MIDODRINE 5 MG TAB PO SCH ×3 (06:18→16:20)
[2022-03-11] MEDS: ALBUTEROL NEBULIZED 2.5 MG/3 ML INHALATION SCH ×4 (08:06→20:25)
[2022-03-11] MEDS: ASPIRIN 81 MG PO SCH (08:30)
[2022-03-11] MEDS: FUROSEMIDE 40 MG TAB PO SCH (08:30)
[2022-03-11] MEDS: SACUBITRIL/VALSARTAN 24 MG-26 MG TABLET PO SCH ×2 (08:30→21:27)
[2022-03-11] MEDS: HEPARIN SODIUM,PORCINE/PF 5,000 UNIT/0.5 ML SYRINGE SQ SCH ×2 (08:31→21:27)
--- NOTE | 2022-03-11 09:27 | PN ---
PROGRESS NOTE 71-year-old white male admitted with COPD exacerbation, noncompliance with medications. He states he is improving. His diet is improving. His breathing. He did have low blood pressure all day long. His Entresto and beta reece have been on hold. We are going to reconsult Cardiology to readjust his medicine. We increased his fluids back up to normal saline at 75 an hour. Continue increased diet and fluids. Cardiovascular S1-S2. Lungs scattered rhonchi and wheeze. Hematology negative Homans. Psych: 3 to 4. ASSESSMENT AND PLAN: 1. Chronic obstructive pulmonary disease exacerbation. 2. Tracheobronchitis. 3. Dehydration. 4. Medication noncompliance. 5. Systolic congestive heart failure. 6. Hypotension. 7. Fluid boluses. 8. Check cortisol level. 9. Cardiology reconsult to adjust cardiac medications. MMSIVAL / MADELAINEN: [id number] /
--- NOTE | 2022-03-11 11:11 | P.PN ---
Subjective This is a 71-year-old male with a past medical history significant for coronary artery disease with previous CABG performed in [place], ischemic c ardiomyopathy EF 25%, with AICD implantation in [place], hypertension, hyperlipidemia, congestive heart failure, and nicotine dependence. Patient does not follow with a test facility engineer. We have been asked to see the patient in consultation for congestive heart failure. Patient seen and examined at bedside, no acute distress. He states his breathing has improved. Denies shortness of breath this morning on exam, lying flat in bed comfortably. No symptoms of orthopnea or PND. He denies any chest p ain. Vital signs are stable. MEDS: Aspirin 81 mg daily, atorvastatin 40 mg nightly, Coreg 3.125 mg twice a day, Lasix 40 mg daily, Entresto 24mg-26mg BID GENERAL: In no acute distress. NECK: Supple without JVD LUNGS: Breath sounds diminished in the bases to auscultation bilaterally. Respiration equal and unlabored. No wheezes, rales or rhonchi. HEART: Regular rate and rhythm. S1 and S2 heard. EXTREMITIES: Normal range of motion, no edema. No clubbing or cyanosis. Peripheral pulses intact. ASSESSMENT Acute on chronic hypoxic respiratory failure COPD exacerbation Acute on chronic heart failure with reduced ejection fraction Coronary artery disease with previous CABG Ischemic cardiomyopathy with an EF of 25% status post AICD implantation Hypertension Hyperlipidemia Chronic nicotine dependence Type 2 diabetes PLAN From a cardiology perspective, no further changes at this time. Pulmonary following for COPD exacerbation and stopped steroids yesterday. Continue PO Lasix, Aspirin, Statin, Coreg, Entresto Rest of management per primary Follow up outpatient within 1-2 weeks post discharge Nurse Practitioner note has been reviewed, I agree with a documented findings and plan of care. Patient was seen and examined. Objective - Vital Signs Vital signs: Vital Signs Temp 97.7 F 03/11/22 04:00 Pulse 64 03/11/22 08:18 Resp 16 03/11/22 08:00 BP 101/62 03/11/22 08:00 Pulse Ox 98 03/11/22 08:00 FiO2 03/07/22 20:16 Intake & Output 03/10/22 03/11/22 03/11/22 18:59 06:59 18:59 Output Total 650 250 Balance -650 -250 Weight 60.8 kg Output: Urine 650 250 Other: Voiding Method Diaper Diaper Diaper External Catheter External Catheter External Catheter # Bowel Movements 1 - Labs CBC & Chem 7: 03/06/22 03:49 03/06/22 03:49 Labs: Abnormal Lab Results - Last 24 Hours (Table) 03/10/22 03/10/22 Range/Units 11:18 20:12 POC Glucose (mg/dL) 167 H 127 H (70-110) mg/dL
[2022-03-11 11:50] LABS: Glucose,Whole Blood 119 mg/dL (70-110)
[2022-03-11 12:43] VITALS: BMI 20.3
[2022-03-11 16:40] LABS: Glucose,Whole Blood 144 mg/dL (70-110)
[2022-03-11 20:50] LABS: Glucose,Whole Blood 126 mg/dL (70-110)
[2022-03-11] MEDS: PALIPERIDONE 3 MG TAB.ER.24 PO SCH (21:27)
[2022-03-11] MEDS: ATORVASTATIN 40 MG TAB PO SCH (21:27)
[2022-03-11] MEDS: HYDROCORTISONE 10 MG TAB PO SCH (21:27)
[2022-03-12] MEDS: SODIUM CHLORIDE 0.9% 1,000 ML IV SCH ×2 (01:59→10:12)
[2022-03-12 06:18] LABS: Glucose,Whole Blood 103 mg/dL (70-110)
[2022-03-12] MEDS: carvediloL 3.125 MG TAB PO SCH ×2 (06:24→17:55)
[2022-03-12] MEDS: MIDODRINE 5 MG TAB PO SCH ×3 (06:24→16:58)
[2022-03-12] MEDS: ASPIRIN 81 MG PO SCH (09:16)
[2022-03-12] MEDS: FUROSEMIDE 40 MG TAB PO SCH (09:16)
[2022-03-12] MEDS: HEPARIN SODIUM,PORCINE/PF 5,000 UNIT/0.5 ML SYRINGE SQ SCH ×2 (09:16→20:10)
[2022-03-12] MEDS: HYDROCORTISONE 10 MG TAB PO SCH ×2 (09:16→20:10)
[2022-03-12] MEDS: INSULIN ASPART (NovoLOG) 100 UNIT/ML VIAL SQ SCH ×4 (09:24→20:33)
[2022-03-12] MEDS: ALBUTEROL NEBULIZED 2.5 MG/3 ML INHALATION SCH ×4 (09:25→20:24)
[2022-03-12 10:01] LABS: Anisocytosis Slight; Basophils % (A) 0 %; Eosinophils # (A) 0.1 k/uL (0-0.7); Eosinophils % (A) 1 %; HCT 37.7 % (39.0-53.0); HGB 11.8 gm/dL (13.0-17.5); Lymphocytes # (A) 1.2 k/uL (1.0-4.8); Lymphocytes % (A) 11 %; MCH 28.1 pg (25.0-35.0); MCHC 31.4 g/dL (31.0-37.0); MCV 89.6 fL (80.0-100.0); Mean Platelet Volume 8.1; Monocytes # (A) 0.5 k/uL (0-1.0); Monocytes % (A) 5 %; Neutrophils # (A) 8.4 k/uL (1.3-7.7); Neutrophils % (A) 81 %; Platelet Count 192 k/uL (150-450); RBC 4.21 m/uL (4.30-5.90); RDW 17.6 % (11.5-15.5); WBC 10.3 k/uL (3.8-10.6)
[2022-03-12 10:13] LABS: African American GFR (CKD) >90 (>60 ml/min/1.73 sqM); Anion Gap 1 mmol/L; Blood Urea Nitrogen 21 mg/dL (9-20); Calcium 7.5 mg/dL (8.4-10.2); Carbon Dioxide 29 mmol/L (22-30); Chloride 102 mmol/L (98-107); Glucose 91 mg/dL (74-99); Non-African American GFR(CKD) 88 (>60 ml/min/1.73 sqM); Sodium 132 mmol/L (137-145)
--- NOTE | 2022-03-12 10:30 | P.PN ---
Subjective Progress Note Date: 03/12/22 Principal diagnosis: Acute on chronic hypoxic respiratory failure Acute COPD exacerbation Acute exacerbation of congestive heart failure Hypertension hypertensive cardiovascular disease Type 2 diabetes mellitus 03/12/2022, patient seen and evaluated examined during the rounds arousable opens eyes follow simple commands on room air denies any chest pain shortness of breath, patient continued to respond well with diuretics has been on IV steroids to reduce to once daily cardiovascular services following optimize therapy for heart failure with baseline ejection fraction 25%, oxygen saturation is 94% hemodynamic status stable however continued to have borderline low blood pressure likely due to heart failure 03/10/2022, patient seen eval examined during the rounds labs reviewed medications reviewed care plan discussed with the staff present patient currently on room air breathing comfortably denies any chest pain or shortness of breath has been on IV steroids once daily, will continue it will ask PT OT to evaluate the patient to increase mobility if possible 03/09/2022, patient seen eval reexamined during the rounds labs reviewed medications reviewed care plan discussed, complaining of mild shortness of breath however patient off of oxygen room air breathing comfortably, patient prior cardio vascular workup revealed ejection fraction 25% with AICD, we'll t aper down the steroids further Patient is a 71-year-old male with COPD and chronic hypoxic respiratory failure patient uses 2 L oxygen at home due to increasing shortness of breath decided to come into the hospital, and Route patient received nebulizers and treatment along with CPAP and switched to BiPAP in the emergency department patient initially on pressure setting of 10/5 with 40% oxygen and 12/8 currently on 4 L oxygen shortness of breath significantly improved denies any chest pain inter mittent cough is present mostly dry sometime associated with white sputum white cell count is normal, BNP is 2650, glucose is 223, covert is negative, chest x- ray significant for tiny small right pleural effusion and interstitial edema suggestive of heart failure. Currently patient is treated with diuretics bronchodilators and continuation of home medications along with high-dose IV steroids Objective - Vital Signs Vital signs: Vital Signs Temp 98.1 F 03/12/22 08:00 Pulse 67 03/12/22 08:00 Resp 18 03/12/22 08:00 BP 91/54 03/12/22 08:00 Pulse Ox 94 L 03/12/22 08:00 FiO2 28 03/07/22 20:16 Intake & Output 03/11/22 03/12/22 03/12/22 18:59 06:59 18:59 Intake Total 0 Output Total 550 400 300 Balance -550 -400 -300 Weight 60.8 kg Intake: Oral 0 Output: Urine 550 400 300 Other: Voiding Method Diaper Diaper Diaper External Catheter External Catheter External Catheter # Voids 1 # Bowel Movements 1 1 1 - Exam - Constitutional General appearance: average body habitus, disheveled - EENT Eyes: EOMI, PERRLA Ears: bilateral: normal - Neck Carotids: bilateral: upstroke normal - Respiratory Respiratory: bilateral: rales (Bilateral bases) - Cardiovascular Rhythm: regular Heart sounds: normal: S1, S2 - Gastrointestinal General gastrointestinal: normal bowel sounds, soft - Neurologic Neurologic: CNII-XII intact - Musculoskeletal Musculoskeletal: gait normal, generalized weakness - Psychiatric Psychiatric: A&O x's 3, appropriate affect, intact judgment & insight - Labs CBC & Chem 7: 03/12/22 09:41 03/12/22 09:41 Labs: Abnormal Lab Results - Last 24 Hours (Table) 03/11/22 03/11/22 03/11/22 Range/Units 11:49 16:39 20:39 RBC (4.30-5.90) m/uL Hgb (13.0-17.5) gm/dL Hct (39.0-53.0) % RDW (11.5-15.5) % Neutrophils # (1.3-7.7) k/uL Sodium (137-145) mmol/L BUN (9-20) mg/dL POC Glucose (mg/dL) 119 H 144 H 126 H (70-110) mg/dL Calcium (8.4-10.2) mg/dL 03/12/22 03/12/22 Range/Units 09:41 09:41 RBC 4.21 L (4.30-5.90) m/uL Hgb 11.8 L (13.0-17.5) gm/dL Hct 37.7 L (39.0-53.0) % RDW 17.6 H (11.5-15.5) % Neutrophils # 8.4 H (1.3-7.7) k/uL Sodium 132 L (137-145) mmol/L BUN 21 H (9-20) mg/dL POC Glucose (mg/dL) (70-110) mg/dL Calcium 7.5 L (8.4-10.2) mg/dL Assessment and Plan Assessment: Acute on chronic hypoxic respiratory failure, improved now off of oxygen Acute on chronic systolic heart failure with exacerbation of congestive heart failure, more likely, baseline ejection fraction 25% Acute COPD exacerbation, less likely continue to taper steroids slowly Hypertension hypertensive cardiovascular disease Type 2 diabetes mellitus Plan: Increase activity as tolerated, PT OT to evaluate the patient and make recommendations Continue supplemental oxygen as needed Continue diuretics Continue to monitor off of IV steroids Optimize therapy for type 2 diabetes mellitus Optimize therapy for heart failure Further recommendations pending plan of care as per clinical response of the patient Time with Patient: Greater than 30
--- NOTE | 2022-03-12 10:57 | P.PN ---
Subjective This is a 71-year-old male with a past medical history significant for coronary artery disease with previous CABG performed in [place], ischemic c ardiomyopathy EF 25%, with AICD implantation in [place], hypertension, hyperlipidemia, congestive heart failure, and nicotine dependence. 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 We have been asked to see the patient in consultation for congestive heart failure. Patient seen and examined at bedside, no acute distress. He states his breathing has improved. He his having symptoms of nausea, vomiting, some diarrhea. Denies shortness of breath this morning on exam, lying flat in bed comfortably. No symptoms of orthopnea or PND. He denies any chest pain. Vital signs are stable. MEDS: Aspirin 81 mg daily, atorvastatin 40 mg nightly, Coreg 3.125 mg twice a day, Lasix 40 mg daily, Entresto 24mg-26mg BID GENERAL: In no acute distress. NECK: Supple without JVD LUNGS: Breath sounds diminished in the bases to auscultation bilaterally. Respiration equal and unlabored. No wheezes, rales or rhonchi. HEART: Regular rate and rhythm. S1 and S2 heard. EXTREMITIES: Normal range of motion, no edema. No clubbing or cyanosis. Peripheral pulses intact. ASSESSMENT Acute on chronic hypoxic respiratory failure COPD exacerbation Acute on chronic heart failure with reduced ejection fraction Coronary artery disease with previous CABG Ischemic cardiomyopathy with an EF of 25% status post AICD implantation Hypertension Hyperlipidemia Chronic nicotine dependence Type 2 diabetes PLAN From a cardiology perspective, no further changes at this time. We will follow the patiente as needed. Continue cardiac medications Rest of management per primary Follow up outpatient within 1-2 weeks post discharge Nurse Practitioner note has been reviewed, I agree with a documented findings and plan of care. Patient was seen and examined. Objective - Vital Signs Vital signs: Vital Signs Temp 98.1 F 03/12/22 08:00 Pulse 67 03/12/22 08:00 Resp 18 03/12/22 08:00 BP 91/54 03/12/22 08:00 Pulse Ox 94 L 03/12/22 08:00 FiO2 28 03/07/22 20:16 Intake & Output 03/11/22 03/12/22 03/12/22 18:59 06:59 18:59 Intake Total 0 Output Total 550 400 300 Balance -550 -400 -300 Weight 60.8 kg Intake: Oral 0 Output: Urine 550 400 300 Other: Voiding Method Diaper Diaper Diaper External Catheter External Catheter External Catheter # Voids 1 # Bowel Movements 1 1 1 - Labs CBC & Chem 7: 03/12/22 09:41 03/12/22 09:41 Labs: Abnormal Lab Results - Last 24 Hours (Table) 03/11/22 03/11/22 03/11/22 Range/Units 11:49 16:39 20:39 RBC (4.30-5.90) m/uL Hgb (13.0-17.5) gm/dL Hct (39.0-53.0) % RDW (11.5-15.5) % Neutrophils # (1.3-7.7) k/uL Sodium (137-145) mmol/L BUN (9-20) mg/dL POC Glucose (mg/dL) 119 H 144 H 126 H (70-110) mg/dL Calcium (8.4-10.2) mg/dL 03/12/22 03/12/22 Range/Units 09:41 09:41 RBC 4.21 L (4.30-5.90) m/uL Hgb 11.8 L (13.0-17.5) gm/dL Hct 37.7 L (39.0-53.0) % RDW 17.6 H (11.5-15.5) % Neutrophils # 8.4 H (1.3-7.7) k/uL Sodium 132 L (137-145) mmol/L BUN 21 H (9-20) mg/dL POC Glucose (mg/dL) (70-110) mg/dL Calcium 7.5 L (8.4-10.2) mg/dL
[2022-03-12] MEDS: SACUBITRIL/VALSARTAN 24 MG-26 MG TABLET PO SCH ×2 (11:10→20:13)
[2022-03-12 12:09] LABS: Glucose,Whole Blood 100 mg/dL (70-110)
[2022-03-12 16:44] LABS: Glucose,Whole Blood 101 mg/dL (70-110)
[2022-03-12] MEDS: PALIPERIDONE 3 MG TAB.ER.24 PO SCH (20:10)
[2022-03-12] MEDS: ATORVASTATIN 40 MG TAB PO SCH (20:10)
[2022-03-12 20:20] LABS: Glucose,Whole Blood 131 mg/dL (70-110)
--- NOTE | 2022-03-12 20:24 | P.PN ---
Progress Note - Text Progress Note Date: 03/12/22 I'm rounding for Dr. Raffaele Verdin March 12: Admitted with CHF exacerbation. Blood pressure was running low between 70-90 systolic. Entresto is being held. On midodrine. Oral intake fair. On by mouth Lasix. Tired. Active Medications Hydrocodone Bitart/Acetaminophen (Hydrocodone/Apap 5-325mg 1 Each Tab) 1 each PO Q6HR PRN PRN Reason: Pain Albuterol Sulfate (Albuterol Nebulized 2.5 Mg/3 Ml) 2.5 mg INHALATION RT-QID [facility] Last Admin: 03/12/22 16:52 Dose: 2.5 mg Albuterol/Ipratropium (Ipratropium-Albuterol 3 Ml Neb) 3 ml INHALATION RT-Q4H PRN PRN Reason: Shortness Of Breath Or Wheezing Aspirin (Aspirin 81 Mg) 81 mg PO DAILY [facility] Last Admin: 03/12/22 09:16 Dose: 81 mg Atorvastatin Calcium (Atorvastatin 40 Mg Tab) 40 mg PO HS [facility] Last Admin: 03/12/22 20:10 Dose: 40 mg Carvedilol (Carvedilol 3.125 Mg Tab) 3.125 mg PO BID-W/MEALS [facility] Last Admin: 03/12/22 17:55 Dose: Not Given Furosemide (Furosemide 40 Mg Tab) 40 mg PO DAILY [facility] Last Admin: 03/12/22 09:16 Dose: 40 mg Heparin Sodium (Porcine) (Heparin Sodium,Porcine/Pf 5,000 Unit/0.5 Ml Syringe) 5,000 unit SQ Q12HR [facility] Last Admin: 03/12/22 20:10 Dose: 5,000 unit Hydrocortisone (Hydrocortisone 10 Mg Tab) 10 mg PO BID [facility] Last Admin: 03/12/22 20:10 Dose: 10 mg Insulin Aspart (Insulin Aspart (Novolog) 100 Unit/Ml Vial) 0 unit SQ ACHS [facility]; Protocol Last Admin: 03/12/22 16:59 Dose: Not Given Midodrine (Midodrine 5 Mg Tab) 5 mg PO AC-TID [facility] Last Admin: 03/12/22 16:58 Dose: 5 mg Paliperidone (Paliperidone 3 Mg Tab.Er.24) 3 mg PO HS [facility] Last Admin: 03/12/22 20:10 Dose: 3 mg Sacubitril/Valsartan (Sacubitril/Valsartan 24 Mg-26 Mg Tablet) 1 each PO BID [facility] Last Admin: 03/12/22 20:13 Dose: Not Given On examination: VITAL SIGNS: [98.1, 71, 18, 91/51, 96% room air] GENERAL APPEARANCE: Laying in bed, awake, tired. HEENT: Normal external appearance of nose and ear. Oral cavity normal EYES: Pupils equal. Conjunctiva normal. NECK: JVD not raised. Mass not palpable. RESPIRATORY: Respiratory effort normal. Lungs clear to auscultation. CARDIOVASCULAR: First and second sounds normal. No edema. ABDOMEN: Soft. Liver and spleen not palpable. No tenderness. No mass palpable. PSYCHIATRY: Alert and oriented x3. Mood and affect low. INVESTIGATIONS, reviewed in the clinical context: White count 10.3 hemoglobin 11.8 platelets and 92 potassium 4 creatinine 0.86 Assessment and plan: -Acute on chronic congestive heart failure exacerbation with EF of 25%: Better Lasix 40 mg a day. Coreg 3.125 mg twice a day. -Acute COPD exacerbation Ventolin 2.5 mg 4 times a day -CAD with a prior history of CABG Aspirin, Coreg. -Hyperlipidemia Lipitor -Hypotension from reduced ejection fraction Midodrine 5 mg 3 times a day Blood pressure is running low. On midodrine. Entresto has been held for last few doses. Patient should be on to be discharged tomorrow. Will continue to hold Entresto if okay with cardiology.
[2022-03-13 06:25] LABS: Glucose,Whole Blood 100 mg/dL (70-110)
[2022-03-13] MEDS: INSULIN ASPART (NovoLOG) 100 UNIT/ML VIAL SQ SCH ×2 (06:26→12:29)
[2022-03-13] MEDS: carvediloL 3.125 MG TAB PO SCH (06:28)
[2022-03-13] MEDS: ALBUTEROL NEBULIZED 2.5 MG/3 ML INHALATION SCH ×3 (07:21→15:25)
[2022-03-13] MEDS: HYDROCORTISONE 10 MG TAB PO SCH (09:13)
[2022-03-13] MEDS: FUROSEMIDE 40 MG TAB PO SCH (09:13)
[2022-03-13] MEDS: HEPARIN SODIUM,PORCINE/PF 5,000 UNIT/0.5 ML SYRINGE SQ SCH (09:13)
[2022-03-13] MEDS: SACUBITRIL/VALSARTAN 24 MG-26 MG TABLET PO SCH (09:13)
[2022-03-13] MEDS: MIDODRINE 5 MG TAB PO SCH ×2 (09:13→12:31)
[2022-03-13] MEDS: ASPIRIN 81 MG PO SCH (09:14)
--- NOTE | 2022-03-13 09:53 | P.PN ---
Subjective Progress Note Date: 03/13/22 Principal diagnosis: Acute on chronic hypoxic respiratory failure Acute COPD exacerbation Acute exacerbation of congestive heart failure Hypertension hypertensive cardiovascular disease Type 2 diabetes mellitus 03/13/2022, patient seen eval examined during the rounds labs reviewed medications reviewed care plan discussed, as previous status remains stable patient is on room air breathing comfortably, remains very weak PT OT has been following, oxygen saturation is 95% room air, Ms. afebrile hemodynamically stable, patient remains on bronchodilator off of steroids except Cortef that he is getting for adrenal insufficiency along with Midodrine 03/12/2022, patient seen and evaluated examined during the rounds arousable opens eyes follow simple commands on room air denies any chest pain shortness of breath, patient continued to respond well with diuretics has been on IV steroids to reduce to once daily cardiovascular services following optimize therapy for heart failure with baseline ejection fraction 25%, oxygen saturation is 94% hemodynamic status stable however continued to have borderline low blood pressure likely due to heart failure 03/10/2022, patient seen eval examined during the rounds labs reviewed medications reviewed care plan discussed with the staff present patient currently on room air breathing comfortably denies any chest pain or shortness of breath has been on IV steroids once daily, will continue it will ask PT OT to evaluate the patient to increase mobility if possible 03/09/2022, patient seen eval reexamined during the rounds labs reviewed medications reviewed care plan discussed, complaining of mild shortness of breath however patient off of oxygen room air breathing comfortably, patient prior cardio vascular workup revealed ejection fraction 25% with AICD, we'll taper down the steroids further Patient is a 71-year-old male with COPD and chronic hypoxic respiratory failure patient uses 2 L oxygen at home due to increasing shortness of breath decided to come into the hospital, and Route patient received nebulizers and treatment along with CPAP and switched to BiPAP in the emergency department patient initially on pressure setting of 05/19 with 40% oxygen and 07/22 currently on 4 L oxygen shortness of breath significantly improved denies any chest pain intermittent cough is present mostly dry sometime associated with white sputum white cell count is normal, BNP is 2650, glucose is 223, covert is negative, chest x-ray significant for tiny small right pleural effusion and interstitial edema suggestive of heart failure. Currently patient is treated with diuretics bronchodilators and continuation of home medications along with high-dose IV steroids Objective - Vital Signs Vital signs: Vital Signs Temp 98.4 F 03/13/22 03:14 Pulse 77 03/13/22 03:14 Resp 17 03/13/22 03:14 BP 120/67 03/13/22 06:26 Pulse Ox 95 03/13/22 03:14 FiO2 28 03/07/22 20:16 Intake & Output 03/12/22 03/13/22 03/13/22 18:59 06:59 18:59 Intake Total 240 Output Total 1150 Balance -910 Intake: Oral 240 Output: Urine 1150 Other: Voiding Method Diaper Urinal External Catheter Diaper # Voids 1 # Bowel Movements 1 - Exam - Constitutional General appearance: average body habitus, disheveled - EENT Eyes: EOMI, PERRLA Ears: bilateral: normal - Neck Carotids: bilateral: upstroke normal - Respiratory Respiratory: bilateral: rales (Bilateral bases) - Cardiovascular Rhythm: regular Heart sounds: normal: S1, S2 - Gastrointestinal General gastrointestinal: normal bowel sounds, soft - Neurologic Neurologic: CNII-XII intact - Musculoskeletal Musculoskeletal: gait normal, generalized weakness - Psychiatric Psychiatric: A&O x's 3, appropriate affect, intact judgment & insight - Labs CBC & Chem 7: 03/12/22 09:41 03/12/22 09:41 Labs: Abnormal Lab Results - Last 24 Hours (Table) 03/12/22 03/12/22 03/12/22 Range/Units 09:41 09:41 20:18 RBC 4.21 L (4.30-5.90) m/uL Hgb 11.8 L (13.0-17.5) gm/dL Hct 37.7 L (39.0-53.0) % RDW 17.6 H (11.5-15.5) % Neutrophils # 8.4 H (1.3-7.7) k/uL Sodium 132 L (137-145) mmol/L BUN 21 H (9-20) mg/dL POC Glucose (mg/dL) 131 H (70-110) mg/dL Calcium 7.5 L (8.4-10.2) mg/dL Assessment and Plan Assessment: Acute on chronic hypoxic respiratory failure, improved now off of oxygen Acute on chronic systolic heart failure with exacerbation of congestive heart failure, more likely, baseline ejection fraction 25% Acute COPD exacerbation, less likely continue to taper steroids slowly Hypotension related to heart failure and adrenal insufficiency Hypertension hypertensive cardiovascular disease Type 2 diabetes mellitus Plan: Increase activity as tolerated, PT OT to evaluate the patient and make recomme ndations Continue supplemental oxygen as needed Continue diuretics Continue to monitor off of IV steroids Closely monitor hemodynamics on Cortef 10 mg twice a day as well as Midodrine Optimize therapy for type 2 diabetes mellitus Optimize therapy for heart failure Further recommendations pending plan of care as per clinical response of the patient Time with Patient: Greater than 30
[2022-03-13 11:49] LABS: Glucose,Whole Blood 94 mg/dL (70-110)
[2022-03-13 11:55] VITALS: RESP 18; TEMP 98
--- NOTE | 2022-03-13 13:15 | P.PN ---
Subjective This is a 71-year-old male with a past medical history significant for coronary artery disease with previous CABG performed in [place], ischemic cardiomyopathy EF 25%, with AICD implantation in [place], hypertension, hyperlipidemia, congestive heart failure, and nicotine dependence. 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 We have been asked to see the patient in consultation for congestive heart failure. Patient seen and examined at bedside, no acute distress. He states his breathing has improved. He his having symptoms of nausea, vomiting, some diarrhea. Denies shortness of breath this morning on exam, lying flat in bed comfortably. No symptoms of orthopnea or PND. He denies any chest pain. Vital signs are stable. 03/13/2022 Patient seen and examined. He denies any chest pain or pressure. States still minimally short of breath however much improved. His interest though has been held a number of times as well as his carvedilol. He admits that home a he does occasionally get lightheaded. Also has adrenal insufficiency and has been on the Cortef as well as Midrin. GENERAL: In no acute distress. NECK: Supple without JVD LUNGS: Breath sounds diminished in the bases to auscultation bilaterally. Respiration equal and unlabored. No wheezes, rales or rhonchi. HEART: Regular rate and rhythm. S1 and S2 heard. EXTREMITIES: Normal range of motion, no edema. No clubbing or cyanosis. Peripheral pulses intact. ASSESSMENT Acute on chronic hypoxic respiratory failure COPD exacerbation Acute on chronic heart failure with reduced ejection fraction Coronary artery disease with previous CABG Ischemic cardiomyopathy with an EF of 25% status post AICD implantation Hypertension Hyperlipidemia Chronic nicotine dependence Type 2 diabetes Adrenal insufficiency PLAN Blood pressures have been borderline despite holding interest though as well as carvedilol a number of times. Attempt carvedilol and see how patient does at home. If patient tolerates may consider addition of contrast though or spironolactone however has not been getting these on a routine basis and additionally has been lightheaded at home. Home with carvedilol as well as Lasix and outpatient follow-up in approximately one week. Objective - Vital Signs Vital signs: Vital Signs Temp 98.0 F 03/13/22 11:54 Pulse 61 03/13/22 11:54 Resp 18 03/13/22 11:54 BP 88/55 03/13/22 11:54 Pulse Ox 99 03/13/22 11:54 FiO2 28 03/07/22 20:16 Intake & Output 03/12/22 03/13/22 03/13/22 18:59 06:59 18:59 Intake Total 240 Output Total 1150 400 Balance -910 -400 Intake: Oral 240 Output: Urine 1150 400 Other: Voiding Method Diaper Urinal Urinal External Catheter Diaper Diaper # Voids 1 # Bowel Movements 1 - Labs CBC & Chem 7: 03/12/22 09:41 03/12/22 09:41 Labs: Abnormal Lab Results - Last 24 Hours (Table) 03/12/22 Range/Units 20:18 POC Glucose (mg/dL) 131 H (70-110) mg/dL
[2022-03-13 16:23] VITALS: BP 89/53; PULSE 54
--- NOTE | 2022-03-13 19:07 | P.DS ---
Providers Date of admission: 03/06/22 07:07 Expected date of discharge: 03/13/22 Attending physician: Raffaele Verdin Consults: 03/06/22 11:08 Consult Physician Routine Consulting Provider: Pal Glover Consult Reason/Comments: chf Do you want consulting provider notified?: Yes 03/06/22 11:09 Consult Physician Routine Consulting Provider: Steve Bonner Consult Reason/Comments: copd Do you want consulting provider notified?: Yes 03/10/22 15:58 Consult Physician Routine Consulting Provider: Kenn Casillas Consult Reason/Comments: low BP Do you want consulting provider notified?: Yes Primary care physician: [facility] Course: I'm rounding for Dr. Raffaele Verdin March 12: Admitted with CHF exacerbation. Blood pressure was running low between 70-90 systolic. Entresto is being held. On midodrine. Oral intake fair. On by mouth Lasix. Tired. March 13: Tired. His cuspid Dr. Smith from cardiology Hold Entresto. Patient to follow-up with his marketing technologist. Oral intake fair. Follow-up with Dr. Verdin and cardiology. Discussion and discharge planning more than 35 minutes On examination: VITAL SIGNS: 98, 54, 18, 89/53, 98% room air GENERAL APPEARANCE: Laying in bed, awake, tired. HEENT: Normal external appearance of nose and ear. Oral cavity normal EYES: Pupils equal. Conjunctiva normal. NECK: JVD not raised. Mass not palpable. RESPIRATORY: Respiratory effort normal. Lungs clear to auscultation. CARDIOVASCULAR: First and second sounds normal. No edema. ABDOMEN: Soft. Liver and spleen not palpable. No tenderness. No mass palpable. PSYCHIATRY: Alert and oriented x3. Mood and affect low. INVESTIGATIONS, reviewed in the clinical context: White count 10.3 hemoglobin 11.8 platelets and 92 potassium 4 creatinine 0.86 Assessment and plan: -Acute on chronic congestive heart failure exacerbation with EF of 25%: Better Lasix 40 mg a day. Coreg 3.125 mg twice a day. Hold Entresto because of low blood pressure. -Acute COPD exacerbation Ventolin 2.5 mg 4 times a day -CAD with a prior history of CABG Aspirin, Coreg. -Hyperlipidemia Lipitor -Hypotension from reduced ejection fraction Midodrine 5 mg 3 times a day Disposition: Home Plan - Discharge Summary Discharge Rx Participant: No New Discharge Prescriptions: New Midodrine [ProAmatine] 5 mg PO AC-TID #90 tab Hydrocortisone [Cortef] 10 mg PO BID #60 tab Continue carvediloL [Coreg] 3.125 mg PO BID-W/MEALS #60 tab Atorvastatin [Lipitor] 40 mg PO HS #30 tab Ipratropium-Albuterol Nebulize [Duoneb 0.5 mg-3 mg/3 ml Soln] 3 ml INHALATION RT-QID each Paliperidone [Invega] 3 mg PO HS tab Aspirin 81 mg PO DAILY #30 tab Furosemide [Lasix] 40 mg PO DAILY #30 tab Discontinued Losartan [Cozaar] 12.5 mg PO DAILY #30 tab methylPREDNISolone Dose Pack [Medrol Dose Pack] 24 mg PO DAILY 5 Days #1 tab No Action Sacubitril/Valsartan [Entresto 24 mg-26 mg Tablet] 1 tab PO BID Discharge Medication List Aspirin 81 mg PO DAILY #30 tab 01/15/22 [Rx] Atorvastatin [Lipitor] 40 mg PO HS #30 tab 01/15/22 [Rx] Furosemide [Lasix] 40 mg PO DAILY #30 tab 01/15/22 [Rx] carvediloL [Coreg] 3.125 mg PO BID-W/MEALS #60 tab 01/15/22 [Rx] Ipratropium-Albuterol Nebulize [Duoneb 0.5 mg-3 mg/3 ml Soln] 3 ml INHALATION RT-QID each 01/19/22 [Rx] Paliperidone [Invega] 3 mg PO HS tab 01/22/22 [Rx] Sacubitril/Valsartan [Entresto 24 mg-26 mg Tablet] 1 tab PO BID 03/06/22 [History] Hydrocortisone [Cortef] 10 mg PO BID #60 tab 03/13/22 [Rx] Midodrine [ProAmatine] 5 mg PO AC-TID #90 tab 03/13/22 [Rx] Follow up Appointment(s)/Referral(s): Raffaele Verdin MD [Primary Care Provider] - 1 Week Steve Bonner MD [STAFF PHYSICIAN] - 1 Week Kenn Casillas MD [STAFF PHYSICIAN] - 1 Week Activity/Diet/Wound Care/Special Instructions: hold Entresto until f/u with per cardiology Discharge Disposition: HOME SELF-CARE
== END 2022-03-13 16:59 | disposition home or self-care (01) | DRG 291 ==
LOC: EC 03:35 → 3SCARD 07:07
PROVIDERS: ADMIT Family Medicine; ATTEND Family Medicine
PROC: 5A09357 Assistance with Respiratory Ventilation, Less than 24 Consecutive Hours, Continuous Positive Airway Pressure (ICD-10-PCS; principal; 2022-03-06)
DX: I11.0 Hypertensive heart disease with heart failure (principal); I50.23 Acute on chronic systolic (congestive) heart failure; J96.21 Acute and chronic respiratory failure with hypoxia; J44.1 Chronic obstructive pulmonary disease with (acute) exacerbation; E27.40 Unspecified adrenocortical insufficiency; I25.10 Atherosclerotic heart disease of native coronary artery without angina pectoris; I25.2 Old myocardial infarction; I25.5 Ischemic cardiomyopathy; F17.210 Nicotine dependence, cigarettes, uncomplicated; E03.9 Hypothyroidism, unspecified; E11.9 Type 2 diabetes mellitus without complications; E78.5 Hyperlipidemia, unspecified; G89.29 Other chronic pain; M54.9 Dorsalgia, unspecified; F32.A Depression, unspecified; E86.0 Dehydration; F03.90 Unspecified dementia, unspecified severity, without behavioral disturbance, psychotic disturbance, mood disturbance, and anxiety; F25.9 Schizoaffective disorder, unspecified; G40.909 Epilepsy, unspecified, not intractable, without status epilepticus; Z99.81 Dependence on supplemental oxygen; Z95.1 Presence of aortocoronary bypass graft; Z28.310 Unvaccinated for COVID-19; Z63.72 Alcoholism and drug addiction in family; Z79.82 Long term (current) use of aspirin; Z79.899 Other long term (current) drug therapy; Z81.1 Family history of alcohol abuse and dependence; Z91.14 Patient's other noncompliance with medication regimen; Z95.810 Presence of automatic (implantable) cardiac defibrillator; Z88.5 Allergy status to narcotic agent; Z88.0 Allergy status to penicillin; Z88.7 Allergy status to serum and vaccine; Z79.890 Hormone replacement therapy
CPT/HCPCS: 36415; 71045; 80048; 80053; 82533; 83605; 83880; 84145; 84484; 85025; 85610; 85730; 87635; 93005; 94640; 94660; 94760; 96374; 96376; 99285

== ENCOUNTER 2022-08-23 17:56 | Inpatient (IN) | payer MEDICARE, OTHER ==
--- NOTE | 2022-08-23 18:08 | ED ---
General Adult HPI - General Stated complaint: abd pain Time Seen by Provider: 08/23/22 17:56 Source: patient, RN notes reviewed, old records reviewed - History of Present Illness Initial comments: This is a 72-year-old male who presents emergency Department because he has had a crampy abdominal pain since things given. Patient states had diarrhea on a daily basis since the skin. Patient denies any nausea vomiting. Home health care nurse stopped in today and saw him and did an ultrasound of his abdomen and thought he had a enlarged aortic aneurysm in his abdomen. Patient himself states the crampiness of his abdomen has not changed since things given. Patient denies chest pain difficult breathing shortness of breath per patient denies any lightheadedness or dizziness. Patient denies headache patient denies numbness weakness. Patient denies any back pain. Patient denies any pain in the legs. - Related Data Home Medications Medication Instructions Recorded Confirmed Sacubitril/Valsartan [Entresto 24 1 tab PO BID 03/06/22 03/06/22 mg-26 mg Tablet] Previous Rx's Medication Instructions Recorded Aspirin 81 mg PO DAILY #30 tab 01/15/22 Atorvastatin [Lipitor] 40 mg PO HS #30 tab 01/15/22 Furosemide [Lasix] 40 mg PO DAILY #30 tab 01/15/22 carvediloL [Coreg] 3.125 mg PO BID-W/MEALS #60 tab 01/15/22 Ipratropium-Albuterol Nebulize 3 ml INHALATION RT-QID each 01/19/22 [Duoneb 0.5 mg-3 mg/3 ml Soln] Paliperidone [Invega] 3 mg PO HS tab 01/22/22 Hydrocortisone [Cortef] 10 mg PO BID #60 tab 03/13/22 Midodrine [ProAmatine] 5 mg PO AC-TID #90 tab 03/13/22 Allergies Allergy/AdvReac Type Severity Reaction Status Date / Time morphine Allergy Anaphylaxis Verified 08/23/22 18:10 Penicillins Allergy Swelling Verified 08/23/22 18:10 on entire body Influenza Virus Vaccines AdvReac Unknown Verified 08/23/22 18:10 pneumococcal vaccine AdvReac Unknown Verified 08/23/22 18:10 Review of Systems ROS Statement: Those systems with pertinent positive or pertinent negative responses have been documented in the HPI. ROS Other: All systems not noted in ROS Statement are negative. Past Medical History Past Medical History: Coronary Artery Disease (CAD), Heart Failure, Dementia, Hyperlipidemia, Hypertension, Seizure Disorder, Syncope, Thyroid Disorder Additional Past Medical History / Comment(s): Ischemic cardiomyopathy, EF 20- 25%, last seizure about 2 yrs ago, hypothyroid.neuropathy "WHEN HE WORKED HE HAD A CRUSHING INJURY -COLLAPSED LUNGS C/T AND HAS CHRONIC BACK PAIN"" pt states he is schizophrenic/bipolar. History of Any Multi-Drug Resistant Organisms: None Reported Past Surgical History: AICD, Back Surgery, Coronary Bypass/CABG, Heart Catheterization, Heart Catheterization With Stent Additional Past Surgical History / Comment(s): 1995 CABG 4 vessel in [place], has had 2"HEART CATHS/had 2 STENTS after cabg sx.pt stated they were done in [facility]. "sx on tailbone, cortisone injections, devin inguinal hernia repair Past Anesthesia/Blood Transfusion Reactions: No Reported Reaction Date of Last Stent Placement:: 1995 Type of Cardiac Device: AICD Device Placement Date:: 1995 in [facility] Past Psychological History: Anxiety, Depression, Schizoaffective Disorder, Schizophrenia Smoking Status: Current every day smoker Past Alcohol Use History: None Reported, Daily Past Drug Use History: None Reported - Past Family History Mother Family Medical History: Respiratory Disorder Additional Family Medical History / Comment(s): Mother had TB Father Additional Family Medical History / Comment(s): Father was an alcoholic. General Exam - General Exam Comments Initial Comments: GENERAL: Patient is well-developed and well-nourished. Patient is nontoxic and well- hydrated and is in mild distress. ENT: Neck is soft and supple. No significant lymphadenopathy is noted. Oropharynx is clear. Moist mucous membranes. Neck has full range of motion without eliciting any pain. EYES: The sclera were anicteric and conjunctiva were pink and moist. Extraocular movements were intact and pupils were equal round and reactive to light. Eyelids were unremarkable. PULMONARY: Unlabored respirations. Good breath sounds bilaterally. No audible rales rhonc hi or wheezing was noted. CARDIOVASCULAR: There is a regular rate and rhythm without any murmurs gallops or rubs. Patient is equal femoral pulses bilaterally ABDOMEN: Soft and nontender with normal bowel sounds. I can palpate the abdomen but I am unable to determine how large the aorta is SKIN: Skin is clear with no lesions or rashes and otherwise unremarkable. NEUROLOGIC: Patient is alert and oriented x3. Cranial nerves II through XII are grossly intact. Motor and sensory are also intact. Normal speech, volume and content. Symmetrical smile. Cerebellar exam grossly intact. MUSCULOSKELETAL: Normal extremities with adequate strength and full range of motion. No lower extremity swelling or edema. No calf tenderness. LYMPHATICS: No significant lymphadenopathy is noted PSYCHIATRIC: Normal psychiatric evaluation. Normal interpersonal interactions appears functionally intact in deals appropriately with others. No signs of depression. No signs of anxiety. No delusions. No hallucinations. Course Vital Signs 08/23/22 08/23/22 18:05 19:00 Temperature 98.9 F Pulse Rate 66 61 Respiratory 22 16 Rate Blood Pressure 134/78 119/70 O2 Sat by Pulse 100 99 Oximetry Medical Decision Making - Medical Decision Making EKG is interpreted by myself. EKG shows sinus rhythm at 67 bpm MA interval 144 tresses 110 QT interval 456 QTC is 471 per patient's EKG shows no significant ST segment elevation or depression. Patient has Q waves in inferior leads Was pt. sent in by a medical professional or institution (, PA, FACILITY MANAGER HISTOLOGY, urgent care, hospital, or retirement...) When possible be specific @ -Visiting nurse and his physician sent the patient in Did you speak to anyone other than the patient for history (EMS, parent, family, police, friend...)? What history was obtained from this source @ -EMS Did you review nursing and triage notes (agree or disagree)? Why? @ -I reviewed nursing and triage notes and agree with those. Were old charts reviewed (outside hosp., previous admission, EMS record, old EKG, old radiological studies, urgent care reports/EKG's, retirement records)? Report findings @ -I reviewed patient's old CT and compared the new CT Differential Diagnosis (chest pain, altered mental status, abdominal pain women, abdominal pain men, vaginal bleeding, weakness, fever, dyspnea, syncope, headache, dizziness, GI bleed, back pain, seizure, CVA, palpatations, mental health)? @ -Differential Abdominal Pain Men: Appendicitis, cholecystitis, diverticulosis, ischemic bowel, pancreatitis, hepatitis, UTI, gastroenteritis, AAA, incarcerated hernia, bowel obstruction, constipation, inflammatory bowel, hepatitis, peptic ulcer disease, splenic inf arction, perforated viscus, testicular torsion, this is not meant to be an all- inclusive list EKG interpreted by me (3pts min.). @ -[As above] X-rays interpreted by me (1pt min.). @ -[None done] CT interpreted by me (1pt min.). @ -CT of the abdomen and pelvis was interpreted by myself. It shows a large aortic abdominal aneurysm measuring about 7 cm there is no leak. U/S interpreted by me (1pt. min.). @ -[None done] What testing was considered but not performed or refused? (CT, X-rays, U/S, labs)? Why? @ -[None] What meds were considered but not given or refused? Why? @ -[None] Did you discuss the management of the patient with other professionals (professionals i.e. , PA, FACILITY MANAGER HISTOLOGY, lab, RT, psych nurse, health care social worker, licensed nuclear operator, teacher, revenue officer, case operator)? Give summary @ -I discussed admitting this patient with Dr. Verdin he agreed to admit the patient admitted the patient and I consult the vascular surgeon Was smoking cessation discussed for >3mins.? @ -I discussed smoking cessation for greater than 3 minutes. The risk of smoking were discussed with the patient including but not limited to risks of cancer, stroke, coronary artery disease and COPD. Also discussed with patient were multiple methods of quitting smoking. Lastly we discussed the financial cost of smoking. Was critical care preformed (if so, how long)? @ -[No] Were there social determinants of health that impacted care today? How? (Homelessness, low income, unemployed, alcoholism, drug addiction, transportation, low edu. Level, literacy, decrease access to med. care, nursing home, rehab)? @ -[No] Was there de-escalation of care discussed even if they declined (Discuss DNR or withdrawal of care, Hospice)? DNR status @ -[No] What co-morbidities impacted this encounter? (DM, HTN, Smoking, COPD, CAD, Cancer, CVA, ARF, Chemo, Hep., AIDS, mental health diagnosis, sleep apnea, morbid obesity)? @ -[None] Was patient admitted / discharged? Hospital course, mention meds given and route, prescriptions, significant lab abnormalities, going to OR and other pertinent info. @ -Patient was admitted to the hospital to Dr. Verdin. Consult vascular surgery I went back in the room on multiple occasions to reevaluate the patient he continued to be in some abdominal pain but relatively minimal. Patient states been ongoing problem since about and he cannot perceive any changes since then. Undiagnosed new problem with uncertain prognosis? @ -[No] Drug Therapy requiring intensive monitoring for toxicity (Heparin, Nitro, Insulin, Cardizem)? @ -[No] Were any procedures done? @ -[No] Diagnosis/symptom? @ -Abdominal aortic aneurysm Acute, or Chronic, or Acute on Chronic? @ -Chronic Uncomplicated (without systemic symptoms) or Complicated (systemic symptoms)? @ -Complicated Side effects of treatment? @ -[No] Exacerbation, Progression, or Severe Exacerbation? @ -[No] Poses a threat to life or bodily function? How? (Chest pain, [place], [place], pneumonia, PE, COPD, DKA, ARF, appy, cholecystitis, CVA, Diverticulitis, Homicidal, Suicidal, threat to staff... and all critical care pts) @ -Yes with this ruptures will be life-threatening - Lab Data Result diagrams: 08/23/22 18:20 08/23/22 18:20 Lab Results 08/23/22 08/23/22 08/23/22 Range/Units 18:20 18:20 18:20 WBC 6.3 (3.8-10.6) k/uL RBC 4.18 L (4.30-5.90) m/uL Hgb 11.4 L (13.0-17.5) gm/dL Hct 36.3 L (39.0-53.0) % MCV 86.8 (80.0-100.0) fL MCH 27.3 (25.0-35.0) pg MCHC 31.5 (31.0-37.0) g/dL RDW 15.2 (11.5-15.5) % Plt Count 165 (150-450) k/uL MPV 9.0 Neutrophils % 53 % Lymphocytes % 37 % Monocytes % 6 % Eosinophils % 1 % Basophils % 0 % Neutrophils # 3.4 (1.3-7.7) k/uL Lymphocytes # 2.3 (1.0-4.8) k/uL Monocytes # 0.4 (0-1.0) k/uL Eosinophils # 0.1 (0-0.7) k/uL Basophils # 0.0 (0-0.2) k/uL PT 11.3 (9.0-12.0) sec INR 1.1 (<1.2) APTT 26.2 (22.0-30.0) sec Sodium 139 (137-145) mmol/L Potassium 4.1 (3.5-5.1) mmol/L Chloride 107 (98-107) mmol/L Carbon Dioxide 25 (22-30) mmol/L Anion Gap 7 mmol/L BUN 13 (9-20) mg/dL Creatinine 1.01 (0.66-1.25) mg/dL Est GFR (CKD-EPI)AfAm 86 (>60 ml/min/1.73 sqM) Est GFR (CKD-EPI)NonAf 75 (>60 ml/min/1.73 sqM) Glucose 81 (74-99) mg/dL Plasma Lactic Acid Rigoberto (0.7-2.0) mmol/L Calcium 8.5 (8.4-10.2) mg/dL Total Bilirubin 0.4 (0.2-1.3) mg/dL AST 18 (17-59) U/L ALT 10 (4-49) U/L Alkaline Phosphatase 61 (38-126) U/L Total Protein 6.6 (6.3-8.2) g/dL Albumin 3.6 (3.5-5.0) g/dL Amylase 101 (30-110) U/L Lipase 188 (23-300) U/L Blood Type Blood Type Confirm Blood Type Recheck Bld Type Recheck Status Antibody Screen Spec Expiration Date 08/23/22 08/23/22 08/23/22 Range/Units 18:20 18:20 18:25 WBC (3.8-10.6) k/uL RBC (4.30-5.90) m/uL Hgb (13.0-17.5) gm/dL Hct (39.0-53.0) % MCV (80.0-100.0) fL MCH (25.0-35.0) pg MCHC (31.0-37.0) g/dL RDW (11.5-15.5) % Plt Count (150-450) k/uL MPV Neutrophils % % Lymphocytes % % Monocytes % % Eosinophils % % Basophils % % Neutrophils # (1.3-7.7) k/uL Lymphocytes # (1.0-4.8) k/uL Monocytes # (0-1.0) k/uL Eosinophils # (0-0.7) k/uL Basophils # (0-0.2) k/uL PT (9.0-12.0) sec INR (<1.2) APTT (22.0-30.0) sec Sodium (137-145) mmol/L Potassium (3.5-5.1) mmol/L Chloride (98-107) mmol/L Carbon Dioxide (22-30) mmol/L Anion Gap mmol/L BUN (9-20) mg/dL Creatinine (0.66-1.25) mg/dL Est GFR (CKD-EPI)AfAm (>60 ml/min/1.73 sqM) Est GFR (CKD-EPI)NonAf (>60 ml/min/1.73 sqM) Glucose (74-99) mg/dL Plasma Lactic Acid Rigoberto 1.6 (0.7-2.0) mmol/L Calcium (8.4-10.2) mg/dL Total Bilirubin (0.2-1.3) mg/dL AST (17-59) U/L ALT (4-49) U/L Alkaline Phosphatase (38-126) U/L Total Protein (6.3-8.2) g/dL Albumin (3.5-5.0) g/dL Amylase (30-110) U/L Lipase (23-300) U/L Blood Type A Positive Blood Type Confirm A Positive Blood Type Recheck No Previous Record Bld Type Recheck Status CABO Indicated Antibody Screen NEGATIVE Spec Expiration Date 08/26/20222319 Disposition Clinical Impression: Abdominal aortic aneurysm Disposition: ADMITTED IP TO THIS HOSP Referrals: Raffaele Verdin MD [Primary Care Provider] - 1-2 days Time of Disposition: 20:44
[2022-08-23 19:14] LABS: Basophils % (A) 0 %; Eosinophils # (A) 0.1 k/uL (0-0.7); Eosinophils % (A) 1 %; HCT 36.3 % (39.0-53.0); HGB 11.4 gm/dL (13.0-17.5); Lymphocytes # (A) 2.3 k/uL (1.0-4.8); Lymphocytes % (A) 37 %; MCH 27.3 pg (25.0-35.0); MCHC 31.5 g/dL (31.0-37.0); MCV 86.8 fL (80.0-100.0); Monocytes # (A) 0.4 k/uL (0-1.0); Monocytes % (A) 6 %; Neutrophils # (A) 3.4 k/uL (1.3-7.7); Neutrophils % (A) 53 %; Platelet Count 165 k/uL (150-450); RBC 4.18 m/uL (4.30-5.90); RDW 15.2 % (11.5-15.5); WBC 6.3 k/uL (3.8-10.6)
[2022-08-23 19:22] LABS: INR 1.1 (<1.2); Partial Thromboplastin Time 26.2 sec (22.0-30.0); Prothrombin Time 11.3 sec (9.0-12.0)
[2022-08-23 19:31] LABS: Albumin 3.6 g/dL (3.5-5.0); Calcium 8.5 mg/dL (8.4-10.2); Potassium 4.1 mmol/L (3.5-5.1); Total Bilirubin 0.4 mg/dL (0.2-1.3); Total Protein 6.6 g/dL (6.3-8.2)
--- NOTE | 2022-08-23 20:19 | CT ---
EXAMINATION TYPE: CT abdomen pelvis w con DATE OF EXAM: 08/23/2022 COMPARISON: 04/16/2020 HISTORY: pt sent from pcp to evaluate poss AAA. pt also present to ER with abdominal pain. CT DLP: 656 mGycm Automated exposure control for dose reduction was used. CONTRAST: Performed with IV Contrast, patient injected with 100 mL of Isovue 370. Images obtained from the diaphragm to the floor the pelvis with the IV contrast. Lung bases are clear of consolidation. There is small left pleural effusion. There are calcified mult iple splenic granulomata. The liver is intact. There are calcified hepatic granulomata. The bile duct s are not dilated. Gallbladder appears normal. There is no pancreatic mass. The stomach is intact. There is no adrenal mass. Kidneys have normal size and contour. There is satisfactory contrast opacif ication of the kidneys. No hydronephrosis. Ureters are not dilated. There is 5 cm cyst on the lower p ole right kidney. There is a large aneurysm of the lower abdominal aorta that measures up to 7 cm in diameter. There is extensive thrombus. The lumen measures 3 cm. Aneurysm extends into the right commo n iliac artery which measures 2.2 cm. The bladder distends smoothly. No inguinal hernia. There is vas cular calcification. There is some retained fecal material in the rectum that measures 5.7 cm. There is no mesenteric edema. There are numerous sigmoid diverticula. No diverticulitis. There is no ascites or free air. No bowel obstruction. IMPRESSION: Large 7 cm abdominal aortic aneurysm which is increased more than 2 cm in diameter compared to old ex am. No evidence of a leak. Small left pleural effusion appears new compared to old exam. Old granulomatous disease. Colonic diverticulosis without diverticulitis. Mild rectal fecal impaction .
[2022-08-23] MEDS ORDERED: HYDROcodone/APAP 5-325MG 1 EACH TAB PO STA (21:36)
[2022-08-23] MEDS ORDERED: SODIUM CHLORIDE 0.9% 1,000 ML IV ONE (21:36)
[2022-08-23] MEDS: SODIUM CHLORIDE 0.9% 1,000 ML IV SCH (21:46)
[2022-08-24] MEDS ORDERED: HYDROmorphone 0.5 MG/0.5 ML SYRINGE IVP ONE ×3 (09:25→21:35)
[2022-08-24] MEDS ORDERED: ONDANSETRON 4 MG/2 ML VIAL IVP ONE ×2 (09:39→21:39)
[2022-08-24 10:21] LABS: Glucose,Whole Blood 95 mg/dL (70-110)
--- NOTE | 2022-08-24 10:34 | P.CRDCN ---
History of Present Illness Consult date: 08/24/22 History of present illness: HISTORY OF PRESENT ILLNESS: This is a 72 year old male with a past medical history significant for ischemic cardiomyopathy, AICD implantation, coronary artery disease with previous CABG, hypertension, hyperlipidemia, and COPD. Patient does not follow with a shield installer. We have been asked to see the patient in consultation for cardiac clearance. Patient examined at the bedside. Patient presented to the hospital wi th a chief complaint of abdominal pain. Patient underwent CT abdomen and pelvis revealing large 7cm abdominal aortic aneurysm which is increased more than 2 cm in diameter compared to exam. No evidence of leak. Small left pleural effusion which appears new compared to old exam. The patient was examined this morning at the bedside. The patient reports mild shortness of breath. He reports epiga stric tenderness. Patient's vital signs are stable. Blood pressure 152/92. * EKG reveals sinus mechanism with a heart rate of 67 * Laboratory data: WBC 6.3. Hemoglobin 11.4. Platelet count 165. Sodium 139. Potassium 4.1. BUN 13. Creatinine 1.01. Lactic acid 1.6. * Current home cardiac medications include Ramipril 1.25 mg daily. 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 No convincing evidence of reversible ischemia. REVIEW OF SYSTEMS: At the time of my exam: CONSTITUTIONAL: Denies fever or chills. HEENT: Denies blurred vision, vision changes, or eye pain. Denies hemoptysis CARDIOVASCULAR: Denies chest pain. Denies orthopnea. Denies PND. Denies palpitations RESPIRATORY: Denies shortness of breath. GASTROINTESTINAL: Denies abdominal pain. Denies nausea or vomiting. HEMATOLOGIC: Denies bleeding disorders. GENITOURINARY: Denies any blood in urine. SKIN: Denies pruitis. Denies rash. PHYSICAL EXAM: VITAL SIGNS: Reviewed. GENERAL: Well-developed in no acute distress. HEENT: Head is normocephalic. Pupils are equal, round. Sclerae anicteric. Mucous membranes of the mouth are moist. Neck supple. No JVD or thyromegaly LUNGS: Respirations even and unlabored. Lungs essentially clear to auscultation bilaterally. HEART: Regular rate and rhythm. S1 and S2 heard. Systolic murmur noted ABDOMEN: Soft. Nondistended. Nontender. EXTREMITIES: Normal range of motion. No clubbing or cyanosis. Peripheral pulses intact. No lower extremity edema NEUROLOGIC: Awake and alert. Oriented x 3. ASSESSMENT: Abdominal pain Abdominal aortic aneurysm, measuring 7 cm Coronary artery disease with previous CABG x 4 vessel, 1995 Ischemic cardiomyopathy, EF 25% History of AICD implantation Hypertension Hyperlipidemia COPD Hypothyroidism Nicotine dependence PLAN: Obtain 2D echo to assess cardiac structure and function Maximize cardiomyopathy medications: will begin Cozaar and Carvedilol Add atorvastatin 40 mg at night Smoking cessation recommended Discussed importance of following up with a shield installer outpatient due to patients cardiac history Patient is scheduled for endovascular repair of AAA this afternoon Patient is high risk to proceed with surgery from a cardiac perspective Further recommendations pending patient course Nurse practitioner note has been reviewed by physician. Signing provider agrees with the documented findings, assessment, and plan of care. Past Medical History Past Medical History: Coronary Artery Disease (CAD), Heart Failure, Dementia, Hyperlipidemia, Hypertension, Seizure Disorder, Syncope, Thyroid Disorder Additional Past Medical History / Comment(s): Ischemic cardiomyopathy, EF 20- 25%, last seizure about 2 yrs ago, hypothyroid.neuropathy "WHEN HE WORKED HE HAD A CRUSHING INJURY -COLLAPSED LUNGS C/T AND HAS CHRONIC BACK PAIN"" pt states he is schizophrenic/bipolar. History of Any Multi-Drug Resistant Organisms: None Reported Past Surgical History: AICD, Back Surgery, Coronary Bypass/CABG, Heart Catheterization, Heart Catheterization With Stent Additional Past Surgical History / Comment(s): 1995 CABG 4 vessel in [place], has had 2"HEART CATHS/had 2 STENTS after cabg sx.pt stated they were done in [facility]. "sx on tailbone, cortisone injections, devin inguinal hernia repair Past Anesthesia/Blood Transfusion Reactions: No Reported Reaction Date of Last Stent Placement:: 1995 Type of Cardiac Device: AICD Device Placement Date:: [address] [facility] Smoking Status: Current every day smoker - Past Family History Mother Family Medical History: Respiratory Disorder Additional Family Medical History / Comment(s): Mother had TB Father Additional Family Medical History / Comment(s): Father was an alcoholic. Medications and Allergies Home Medications Medication Instructions Recorded Confirmed Type Acetaminophen Tab [Tylenol Tab] 1,000 mg PO Q4H PRN 08/23/22 08/23/22 History Cyanocobalamin (Vitamin B-12) 1,000 mcg PO DAILY 08/23/22 08/23/22 History [Vitamin B-12] Escitalopram [Lexapro] 20 mg PO DAILY 08/23/22 08/23/22 History Famotidine [Pepcid] 20 mg PO BID 08/23/22 08/23/22 History Levothyroxine Sodium [Synthroid] 100 mcg PO DAILY 08/23/22 08/23/22 History Melatonin 6 mg PO HS 08/23/22 08/23/22 History Sennosides/Docusate Sodium [Senna 2 tab PO HS 08/23/22 08/23/22 History Plus 8.6-50 mg Tablet] Sucralfate [Carafate] 1 gm PO BID 08/23/22 08/23/22 History ramipriL 1.25 mg PO DAILY 08/23/22 08/23/22 History traZODone HCL [Desyrel] 50 mg PO HS 08/23/22 08/23/22 History Allergies Allergy/AdvReac Type Severity Reaction Status Date / Time morphine Allergy Anaphylaxis Verified 08/23/22 21:04 Penicillins Allergy Swelling Verified 08/23/22 21:04 on entire body Influenza Virus Vaccines AdvReac Unknown Verified 08/23/22 21:04 pneumococcal vaccine AdvReac Unknown Verified 08/23/22 21:04 Physical Exam Vitals: Vital Signs Temp Pulse Pulse Resp BP BP Pulse Ox 08/24/22 08:02 97.7 F 82 16 152/92 99 08/24/22 07:24 149/79 08/24/22 04:00 98.3 F 61 16 118/70 94 L 08/24/22 02:09 97.6 F 64 16 115/64 93 L 08/24/22 01:49 60 16 100/54 97 08/24/22 01:15 51 L 16 105/55 94 L 08/23/22 21:56 64 18 96/77 96 08/23/22 19:00 61 16 119/70 99 08/23/22 18:05 98.9 F 66 22 134/78 100 Intake and Output 08/23/22 08/24/22 08/24/22 22:59 06:59 14:59 Output Total 475 200 Balance -475 -200 Output: Urine 475 200 Other: Voiding Method Urinal Urinal Weight 61.235 kg 59.6 kg Results 08/23/22 18:20 08/23/22 18:20 Cardiac Enzymes 08/23/22 Range/Units 18:20 AST 18 (17-59) U/L Coagulation 08/23/22 Range/Units 18:20 PT 11.3 (9.0-12.0) sec APTT 26.2 (22.0-30.0) sec CBC 08/23/22 Range/Units 18:20 WBC 6.3 (3.8-10.6) k/uL RBC 4.18 L (4.30-5.90) m/uL Hgb 11.4 L (13.0-17.5) gm/dL Hct 36.3 L (39.0-53.0) % Plt Count 165 (150-450) k/uL Comprehensive Metabolic Panel 08/23/22 Range/Units 18:20 Sodium 139 (137-145) mmol/L Potassium 4.1 (3.5-5.1) mmol/L Chloride 107 (98-107) mmol/L Carbon Dioxide 25 (22-30) mmol/L BUN 13 (9-20) mg/dL Creatinine 1.01 (0.66-1.25) mg/dL Glucose 81 (74-99) mg/dL Calcium 8.5 (8.4-10.2) mg/dL AST 18 (17-59) U/L ALT 10 (4-49) U/L Alkaline Phosphatase 61 (38-126) U/L Total Protein 6.6 (6.3-8.2) g/dL Albumin 3.6 (3.5-5.0) g/dL Current Medications Generic Name Dose Route Start Last Admin Trade Name Freq PRN Reason Stop Dose Admin Sodium Chloride 1,000 mls @ 75 mls/hr 08/23/22 21:45 08/23/22 21:46 Saline 0.9% IV 75 mls/hr .[id number] RADHA Administration Intake and Output 08/23/22 08/24/22 08/24/22 22:59 06:59 14:59 Output Total 475 200 Balance -475 -200 Output: Urine 475 200 Other: Voiding Method Urinal Urinal Weight 61.235 kg 59.6 kg 08/23/22 18:20 08/23/22 18:20
[2022-08-24] MEDS: HYDROmorphone 0.5 MG/0.5 ML SYRINGE IVP PRN ×2 (10:53→23:39)
--- NOTE | 2022-08-24 10:59 | P.GSCN ---
History of Present Illness Consult date: 08/24/22 Reason for Consult: Abdominal aortic aneurysm Requesting physician: Celestine Kidd History of present illness: This is a pleasant 72-year-old male who presented to the emergency department with complaints of abdominal pain. He states abdominal pain and crampiness since Thanksgiving. He denies any associated nausea, vomiting, diarrhea, fevers or chills. Patient actually states that he has been constipated for some time, states he did have a bowel movement yesterday but his stool was hard and it was a small bowel movement. He states most of his pain is in his abdomen and into his back. He does have a past medical history including ischemic cardiomyopathy, coronary artery disease status post CABG and cardiac stents, AICD implantation, heart failure, dementia, hyperlipidemia, hypertension seizure disorder, thyroid disorder and daily smoker. He had a CT of the abdomen and pelvis with contrast that revealed a large 7 cm abdominal aortic aneurysm reporting increased more than 2 cm in diameter compared to old exam with no evidence of a leak. Vascular surgery was consulted for abdominal aortic aneurys m. Patient states he still having diffuse abdominal pain radiates into his back. Again no nausea or vomiting. Denies any shortness of breath or chest pain. Patient does have a legal guardian through [facility]. WBCs 6 hemoglobin 11.4 hematocrit 36 platelet count 165,000 INR 1.1 sodium 139 potassium 4.1 BUN 13 creatinine 1 glucose 95 plasma lactic acid 1.6 Review of Systems A 14 point review systems was completed all pertinent positives and negatives as stated in the HPI. Past Medical History Past Medical History: Coronary Artery Disease (CAD), Heart Failure, Dementia, Hyperlipidemia, Hypertension, Seizure Disorder, Syncope, Thyroid Disorder Additional Past Medical History / Comment(s): Ischemic cardiomyopathy, EF 20- 25%, last seizure about 2 yrs ago, hypothyroid.neuropathy "WHEN HE WORKED HE HAD A CRUSHING INJURY -COLLAPSED LUNGS C/T AND HAS CHRONIC BACK PAIN"" pt states he is schizophrenic/bipolar. History of Any Multi-Drug Resistant Organisms: None Reported Past Surgical History: AICD, Back Surgery, Coronary Bypass/CABG, Heart Catheterization, Heart Catheterization With Stent Additional Past Surgical History / Comment(s): 1995 CABG 4 vessel in [place], has had 2"HEART CATHS/had 2 STENTS after cabg sx.pt stated they were done in [facility]. "sx on tailbone, cortisone injections, devin inguinal hernia repair Past Anesthesia/Blood Transfusion Reactions: No Reported Reaction Date of Last Stent Placement:: 1995 Type of Cardiac Device: AICD Device Placement Date:: 1995 in [facility] Smoking Status: Current every day smoker - Past Family History Mother Family Medical History: Respiratory Disorder Additional Family Medical History / Comment(s): Mother had TB Father Additional Family Medical History / Comment(s): Father was an alcoholic. Medications and Allergies Home Medications Medication Instructions Recorded Confirmed Type Acetaminophen Tab [Tylenol Tab] 1,000 mg PO Q4H PRN 08/23/22 08/23/22 History Cyanocobalamin (Vitamin B-12) 1,000 mcg PO DAILY 08/23/22 08/23/22 History [Vitamin B-12] Escitalopram [Lexapro] 20 mg PO DAILY 08/23/22 08/23/22 History Famotidine [Pepcid] 20 mg PO BID 08/23/22 08/23/22 History Levothyroxine Sodium [Synthroid] 100 mcg PO DAILY 08/23/22 08/23/22 History Melatonin 6 mg PO HS 08/23/22 08/23/22 History Sennosides/Docusate Sodium [Senna 2 tab PO HS 08/23/22 08/23/22 History Plus 8.6-50 mg Tablet] Sucralfate [Carafate] 1 gm PO BID 08/23/22 08/23/22 History ramipriL 1.25 mg PO DAILY 08/23/22 08/23/22 History traZODone HCL [Desyrel] 50 mg PO HS 08/23/22 08/23/22 History Allergies Allergy/AdvReac Type Severity Reaction Status Date / Time morphine Allergy Anaphylaxis Verified 08/23/22 21:04 Penicillins Allergy Swelling Verified 08/23/22 21:04 on entire body Influenza Virus Vaccines AdvReac Unknown Verified 08/23/22 21:04 pneumococcal vaccine AdvReac Unknown Verified 08/23/22 21:04 Surgical - Exam Vital Signs Temp Pulse Resp BP Pulse Ox 98.9 F 66 22 134/78 100 08/23/22 18:05 08/23/22 18:05 08/23/22 18:05 08/23/22 18:05 08/23/22 18:05 General appearance: The patient is alert, oriented, appears in no acute distress. HET: Head is normocephalic and atraumatic. Pupils are equal and reactive. Neck: Supple without lymphadenopathy. Trachea midline. Heart: Regular. Lungs: Equal expansion, normal respiratory effort. Abdomen: Soft, diffuse tenderness, palpable AAA, nondistended. Extremities: Normal skin color and turgor. No cyanosis, rash, ulceration, clubbing, or edema. Palpable bilateral femoral pulses. Nonpalpable PT and DP pulses bilaterally. Neurological: No focal deficits. Strength and sensation are grossly intact. Results - Labs 08/23/22 18:20 08/23/22 18:20 Abnormal Lab Results - Last 24 Hours (Table) 08/23/22 Range/Units 18:20 RBC 4.18 L (4.30-5.90) m/uL Hgb 11.4 L (13.0-17.5) gm/dL Hct 36.3 L (39.0-53.0) % Diabetes panel 08/23/22 Range/Units 18:20 Sodium 139 (137-145) mmol/L Potassium 4.1 (3.5-5.1) mmol/L Chloride 107 (98-107) mmol/L Carbon Dioxide 25 (22-30) mmol/L BUN 13 (9-20) mg/dL Creatinine 1.01 (0.66-1.25) mg/dL Glucose 81 (74-99) mg/dL Calcium 8.5 (8.4-10.2) mg/dL AST 18 (17-59) U/L ALT 10 (4-49) U/L Alkaline Phosphatase 61 (38-126) U/L Total Protein 6.6 (6.3-8.2) g/dL Albumin 3.6 (3.5-5.0) g/dL Calcium panel 08/23/22 Range/Units 18:20 Calcium 8.5 (8.4-10.2) mg/dL Albumin 3.6 (3.5-5.0) g/dL Pituitary panel 08/23/22 Range/Units 18:20 Sodium 139 (137-145) mmol/L Potassium 4.1 (3.5-5.1) mmol/L Chloride 107 (98-107) mmol/L Carbon Dioxide 25 (22-30) mmol/L BUN 13 (9-20) mg/dL Creatinine 1.01 (0.66-1.25) mg/dL Glucose 81 (74-99) mg/dL Calcium 8.5 (8.4-10.2) mg/dL Adrenal panel 08/23/22 Range/Units 18:20 Sodium 139 (137-145) mmol/L Potassium 4.1 (3.5-5.1) mmol/L Chloride 107 (98-107) mmol/L Carbon Dioxide 25 (22-30) mmol/L BUN 13 (9-20) mg/dL Creatinine 1.01 (0.66-1.25) mg/dL Glucose 81 (74-99) mg/dL Calcium 8.5 (8.4-10.2) mg/dL Total Bilirubin 0.4 (0.2-1.3) mg/dL AST 18 (17-59) U/L ALT 10 (4-49) U/L Alkaline Phosphatase 61 (38-126) U/L Total Protein 6.6 (6.3-8.2) g/dL Albumin 3.6 (3.5-5.0) g/dL - Imaging CT scan - abdomen: report reviewed Assessment and Plan Assessment: 1. Abdominal aortic aneurysm measuring 7 cm 2. Abdominal pain 3. Ischemic cardiomyopathy, EF 25% 4. Coronary artery disease status post four-vessel CABG, stents 5. History of AICD implantation 6. Hypertension and hyperlipidemia 7. COPD 8. Hypothyroidism 9. Nicotine dependence Plan: 1. Continue symptomatic and supportive care 2. Type and screen current 3. Keep nothing by mouth 4. Spoke with the legal guardian Yennifer Jones, discussed proposed endovascular repair of abdominal aortic aneurysm. Legal guardian agreeable to proceed with surgery. 5. Please obtain consent from legal guardian 6. Plan for endovascular repair of abdominal aortic aneurysm this afternoon Thank you for this consultation, we will continue to follow. The impression and plan of care has been dictated as directed. Dr. Cook I performed a history and examination of this patient, discussed the same with the dictator. I agree with the dictator's note ,documented as a scribe. Any additional findings or plans will be noted.
--- NOTE | 2022-08-24 11:53 | CA ---
Transthoracic Echo Report Name: Magaly Morales Age: 72 Gender: M : 1950 Exam Date: 08/24/2022 11:12 Exam Location: [facility] Ht (in): 65 Wt (lb): 131 Ordering Physician: Eneida Toney Attending/Referring Phys: [id number], Dawna Patient Financial Services Manager Elissa Vu RDCS Procedure CPT: Indications: LV function Cardiac Hx: Technical Quality: Contrast 1: Total Dose (mL): Contrast 2: Total Dose (mL): MEASUREMENTS (Male / Female) Normal Values 2D ECHO LV Diastolic Diameter PLAX 5.8 cm 4.2 - 5.9 / 3.9 - 5.3 cm LV Systolic Diameter PLAX 4.9 cm IVS Diastolic Thickness 1.2 cm 0.6 - 1.0 / 0.6 - 0.9 cm LVPW Diastolic Thickness 1.4 cm 0.6 - 1.0 / 0.6 - 0.9 cm LV Relative Wall Thickness 0.4 RV Internal Dim ED PLAX 3.1 cm LA Systolic Diameter LX 4.8 cm 3.0 - 4.0 / 2.7 - 3.8 cm LV Diastolic Volume MOD BP 118.6 cm??? 67 - 155 / 56 - 104 cm??? LV Systolic Volume MOD BP 69.5 cm??? 22 - 58 / 19 - 49 cm??? LV Ejection Fraction MOD BP 41.4 % >= 55 % LV Diastolic Volume MOD 4C 115.2 cm??? LV Systolic Volume MOD 4C 65.0 cm??? LV Ejection Fraction MOD 4C 43.5 % LV Diastolic Length 4C 7.1 cm LV Systolic Length 4C 5.6 cm LV Diastolic Volume MOD 2C 113.4 cm??? LV Systolic Volume MOD 2C 71.7 cm??? LV Ejection Fraction MOD 2C 36.8 % LV Diastolic Length 2C 6.6 cm LV Systolic Length 2C 5.8 cm LA Volume 103.7 cm??? 18 - 58 / 22 - 52 cm??? M-MODE Aortic Root Diameter MM 3.0 cm LA Systolic Diameter MM 4.7 cm LA Ao Ratio MM 1.5 MV E Point Septal Separation 1.7 cm AV Cusp Separation MM 2.0 cm DOPPLER MV E' Velocity 5.8 cm/s TR Peak Velocity 345.3 cm/s TR Peak Gradient 47.7 mmHg Right Ventricular Systolic Press 51.4 mmHg FINDINGS Left Ventricle Mildly increased septal wall thickness. Mildly increased left ventricular systolic volume. Left ventricle is at upper limits of normal. There is mild global decrease in contractility with estimated ejection fraction of about 40- 45%. Right Ventricle Normal right ventricular size and function. Moderate pulmonary hypertension. Right ventricular systolic pressure estimated at 51 mm hg. Right Atrium Normal right atrial size. Left Atrium Moderately increased left atrial diameter. Severely increased left atrial volume. Mildly increased left atrial area. Mitral Valve Mitral valve thickened. severe mitral regurgitation. Aortic Valve Trileaflet aortic valve. Aortic valve sclerosis. Tricuspid Valve Structurally normal tricuspid valve. Mild tricuspid regurgitation. Pulmonic Valve Structurally normal pulmonic valve. Pericardium Normal pericardium. Aorta Normal size aortic root and proximal ascending aorta. CONCLUSIONS Global decrease in contractility with estimated ejection fraction of about 40- 45% with severe mitral regurgitation and moderate pulmonary hypertension. No pericardial effusion Previewed by: Dr. Leonel Luong MD (Electronically Signed) Final Date: 24 August 2022 11:52
[2022-08-24] MEDS ORDERED: ACETAMINOPHEN TAB 500 MG TAB PO PRN (13:17)
[2022-08-24] MEDS ORDERED: PHENYLEPHRINE 40 MG in SODIUM CHLORIDE 0.9% 250 ML IV SCH (15:00)
[2022-08-24] MEDS ORDERED: NITROGLYCERIN-D5W PMX 50 MG in DEXTROSE/WATER 1 250ML.BAG IV SCH (15:00)
[2022-08-24] MEDS: SODIUM CHLORIDE 0.9% 1,000 ML IV SCH (15:11)
[2022-08-24] MEDS ORDERED: ceFAZolin 1,000 MG VIAL ONE (16:15)
[2022-08-24] MEDS ORDERED: HEPARIN SODIUM,PORCINE 10,000 UNIT/ML 1 ML VIAL ONE (16:15)
[2022-08-24] MEDS ORDERED: LABETALOL 5 MG/ML VIAL MDV ONE (16:15)
[2022-08-24] MEDS ORDERED: PHENYLEPHRINE-0.9% NACL SYG 1,000 MCG/10 ML SYRINGE ONE (16:15)
[2022-08-24] MEDS ORDERED: ETOMIDATE 2 MG/ML 10 ML VIAL ONE (16:15)
[2022-08-24] MEDS ORDERED: ROCURONIUM 10 MG/ML (5 ML VIAL) IV ONE (16:15)
[2022-08-24] MEDS ORDERED: SODIUM CHLORIDE 0.9% 100 ML BAG ONE (16:15)
[2022-08-24] MEDS ORDERED: fentaNYL (PF) 50 MCG/ML 2 ML AMP ONE (16:15)
[2022-08-24] MEDS ORDERED: LIDOCAINE 2% INJ 20 MG/ML (2 ML VIAL) ONE (16:15)
[2022-08-24] MEDS ORDERED: NEOSTIGMINE 1 MG/ML 10 ML VIAL ONE (16:15)
[2022-08-24] MEDS ORDERED: SUCCINYLCHOLINE CHLORIDE 200 MG/10 ML VIAL IV ONE (16:15)
[2022-08-24] MEDS ORDERED: SODIUM CHLORIDE 0.9% 1,000 ML IV ONE ×2 (16:58)
[2022-08-24] MEDS ORDERED: GELATIN SPONGE,ABSORB (LARGE) 1 EACH SPONGE TOPICAL ONE (19:05)
[2022-08-24] MEDS ORDERED: THROMBIN (BOVINE) 5,000 UNIT VIAL TOPICAL ONE (19:05)
[2022-08-24] MEDS ORDERED: IOPAMIDOL-370 125ML BTL INJ ONE ×3 (20:02)
[2022-08-24] MEDS ORDERED: IOPAMIDOL-250 100ML BTL INTRAARTER ONE ×2 (20:02)
[2022-08-24] MEDS ORDERED: NALOXONE 0.4 MG/ML 1 ML VIAL IVP PRN (20:52)
[2022-08-24] MEDS ORDERED: SODIUM CHLORIDE 0.9% 1,000 ML in EMPTY BAG 1 BAG IV SCH (21:00)
--- NOTE | 2022-08-24 21:16 | P.OP ---
Description of Procedure: Date: 08/24/2022 Preoperative diagnosis: Asymptomatic Infrarenal 7 cm AAA Postoperative diagnosis: Same Procedure: 1. Percutaneous Endovascular aortic repair with [place] device. 2. Ultrasound-guided bilateral common femoral artery access 3. Bilateral external iliac and common iliac artery angiopl asty 4. Right groin cutdown with femoral artery repair 5. Right common femoral artery endarterectomy with patch angioplasty 6. Bilateral iliofemoral angiogram Surgeon: Joey CABRERA Anesthesia: General Estimated blood loss: 200 mL Complications: None Condition: Stable Indications: 72-year-old gentleman who originally presented to the [facility] to abdominal pain and back pain. He underwent workup and evaluation with CT angiogram which demonstrated a large 7 cm AAA. Due to his large AAA and symptoms of back pain and abdominal pain it was determined that he is possible pending rupture and therefore discussion for endovascular repair was had and patient was in agreement. He presents to the [facility] for endovascular repair. Operative narrative: After written and informed consent was obtained from the patient all risks benefits and complications were described the patient was brought to the [facility] and laid in a supine position. The area of the groins were prepped and draped in usual sterile fashion after appropriate anesthetic was performed per the anesthesiologist. A timeout was performed in normal fashion and antibiotics were administered prior to incisions. Utilizing ultrasound bilateral common femoral arteries were visualized demonstrating patency with minimal calcification. Under ultrasound guidance utilizing a multipurpose needle bilateral common femoral arteries were accessed and guidewire was placed followed by deployment of 2 Perclose closure devices for each femoral artery. Utilizing Seldinger technique and 8-Congolese sheath was then placed and patient was administered heparin and followed with ACTs. 035 Glidewire was then placed up the right femoral sheath and exchanged for a Lunderquist wire through an angled glide catheter. The left femoral artery was then utilized and guidewire was placed followed by pigtail catheter and aortogram was obtained. Prior to placement of the main body sheath bilateral common iliac, external iliac arteries were angioplastied with a 5 x 40 mm balloon as well as dilation of the right external iliac artery with a 12mm dilator. Utilizing the Lunderquist wire a 26 mm main body device was then loaded over the guidewire after the 8-Congolese sheath was removed. Delivery system was then placed 1 cm proximal to the intended landing site and the aortic body was oriented for appropriate access for the contralateral limb. Delivery system was then retracted out of the sheath and the aortic body radiopaque markers were verified to be in the correct position. First segment of the graft was then deployed in normal fashion by releasing and pulling the knob in normal fashion. Balloon injection port was then inflated utilizing a 4-1 saline contrast mixture in order to open the mid crown. Balloon was then deflated. Precise positioning was then performed with utilizing the radiopaque markers and parallax was removed and our to land at the renal arteries. Pigtail catheter was then retracted away from the proximal stent and the proximal stent was released in normal fashion. Polymer was then utilized and filled through the polymer port which was visualized under fluoroscopy. The stiff Lunderquist wire was then retracted within the ipsilateral limb. Attention was then placed to accessing the contralateral limb. Utilizing the Glidewire and angled glide catheter the contralateral limb was accessed and pigtail catheter was placed. Pigtail catheter was then spun to verify intragraft cannulation. A stiff wire was then placed within the pigtail catheter and retrograde angiogram was obtained demonstrating the internal iliac artery takeoff. Measurements were obtained and a 16 x 120 mm Ovation limb was chosen to be deployed and deployed in normal fashion. Once completed the aortic main body was completely deployed in normal fashion. Utilizing the balloon balloon angioplasty was performed at the ring to further mold the polymer to the aortic neck. Once completed the aortic body deployment sheath was removed in normal fashion. Pigtail catheter was then placed over the Lunderquist wire and retrograde angiogram was obtained with measurements to the internal iliac artery on the ipsilateral limb. A 16 x 140 mm Ovation limb was chosen and deployed in normal fashion. Once completed two 12 x 40mm balloons were placed up each iliac limb and balloon angioplasty was performed its entirety. Once completed balloons were removed and pigtail catheter was placed above the graft and final angiogram was obtained demonstrating exclusion of the aneurysm with no evidence of endoleak's. All guidewires and catheters were then removed and the Perclose closure devices were attempted to be closed but failed on the right 2 and therefore Angio-Seal was placed also failed to seal and therefore decision was made to open and perform a cutdown. An oblique incision was created overlying the access site and dissection was carried down with electrocautery to the common femoral artery. Proximal distal control was obtained. Attempt to remove the Angio-Seal was performed without success due to a dissection of plaque therefore arteriotomy was created up to the external iliac artery. A large amount of plaque was dissected and Angio-Seal was noted to be behind this area. This was removed. Due to the extension of the arteriotomy and lifted plaque and endarterectomy was performed with a [place]. Once completed and good brisk forward pulsatile bleeding as well as brisk backbleeding was noted a patch was utilized and a patch angioplasty was performed with 6-0 Prolene suture in a running fashion. Once completed all control was released revealing good pulsatile flow within the patch. Attention was then placed to the left groin and Perclose was closed in normal fashion with 1 failing and pressure plan placed for hemostasis. Due to the bleeding and failure of the closure devices a 5-Congolese sheath was then placed through the patch after a multipurpose needle was utilized to access. Pigtail catheter was then placed into the aortic graft and runoff was performed down to the mid SFA demonstrating brisk flow to the bilateral common femoral arteries and profundus femoris arteries. There was filling around the SFA will which bilaterally were occluded which was no change from prior to surgery. Once completed the sheath was removed and patch out any was closed with a 6-0 Prolene suture. The area was copiously irrigated with sterile saline and incision was closed in a multilayer fashion. The skin was cleansed and dressings were placed. The areas were then cleansed and pressure dressings were placed on the left.
[2022-08-24 22:27] LABS: Glucose,Whole Blood 121 mg/dL (70-110)
--- NOTE | 2022-08-24 22:39 | HP ---
HISTORY AND PHYSICAL HISTORY OF PRESENT ILLNESS: A 72-year-old white male came in with an aneurysm, crampy abdominal pain. He was found to have an abdominal aneurysm for which he was admitted, palpable on physical exam by ER doctor. He has a history of COPD, atrial fibrillation, hypertension, cardiomyopathy. MEDICATIONS: Entresto b.i.d., stopped all his other medicines. ALLERGIES: Penicillins, morphine. REVIEW OF SYSTEMS: A 14-point review of systems otherwise negative. PAST MEDICAL HISTORY: Coronary artery disease, atrial fibrillation, dementia, heart failure, seizure disorder, syncope, hypothyroidism, COPD, hypertension, ischemic cardiomyopathy, and AICD. FAMILY HISTORY: Mother, respiratory disorder. Father, alcoholic. PHYSICAL EXAMINATION: GENERAL: Nontoxic, well hydrated, mild acute distress. HEENT: Normocephalic, atraumatic. Pupils equal, round, reactive. LUNGS: Breath sounds equal bilaterally. CARDIOVASCULAR: S1, S2. PSYCH: Fair mood and affect. NEUROLOGIC: Alert and oriented x3. ABDOMEN: Questionable murmur palpable. VITAL SIGNS: Temperature 98.9, blood pressure 119 to 130s over 70s to 80s, O2 99-100, pulse 60s, and respiratory rate 16-20. ASSESSMENT: 1. Acute abdominal aortic aneurysm. 2. Acute on chronic anemia. 3. Chronic obstructive pulmonary disease. 4. Ischemic cardiomyopathy. vascular surgery, cardiology surgery. Prognosis guarded. MMODL / IJN: [id number] /
[2022-08-24 22:46] LABS: Basophils % (A) 0 %; Eosinophils % (A) 0 %; HCT 30.3 % (39.0-53.0); Hypochromasia Marked; Lymphocytes % (A) 12 %; MCH 28.6 pg (25.0-35.0); MCHC 31.3 g/dL (31.0-37.0); MCV 91.3 fL (80.0-100.0); Mean Platelet Volume 9.2; Monocytes # (A) 0.4 k/uL (0-1.0); Monocytes % (A) 5 %; Neutrophils # (A) 7.1 k/uL (1.3-7.7); Neutrophils % (A) 82 %; Platelet Count 130 k/uL (150-450); RBC 3.33 m/uL (4.30-5.90); RDW 14.8 % (11.5-15.5); WBC 8.7 k/uL (3.8-10.6)
[2022-08-24] MEDS: carvediloL 6.25 MG TAB PO SCH (22:51)
[2022-08-24 23:00] LABS: HGB 9.5 gm/dL (13.0-17.5)
[2022-08-24 23:02] LABS: African American GFR (CKD) >90 (>60 ml/min/1.73 sqM); Anion Gap 8 mmol/L; Blood Urea Nitrogen 12 mg/dL (9-20); Calcium 7.4 mg/dL (8.4-10.2); Carbon Dioxide 20 mmol/L (22-30); Chloride 113 mmol/L (98-107); Glucose 116 mg/dL (74-99); Non-African American GFR(CKD) 83 (>60 ml/min/1.73 sqM); Potassium 4.1 mmol/L (3.5-5.1); Sodium 141 mmol/L (137-145)
[2022-08-24] MEDS: ATORVASTATIN 40 MG TAB PO SCH (23:38)
[2022-08-24] MEDS: FAMOTIDINE 20 MG TAB PO SCH (23:38)
[2022-08-24] MEDS: SUCRALFATE 1 GM TAB PO SCH (23:38)
[2022-08-24] MEDS: MELATONIN 3 MG TABLET PO SCH (23:38)
[2022-08-24] MEDS: SENNOSIDES-DOCUSATE SODIUM 1 EACH TAB PO SCH (23:38)
[2022-08-24] MEDS: traZODone HCL 50 MG TAB PO SCH (23:53)
[2022-08-25 05:36] LABS: HCT 25.5 % (39.0-53.0); HGB 8.2 gm/dL (13.0-17.5); Hypochromasia Moderate; MCHC 31.9 g/dL (31.0-37.0); MCV 87.6 fL (80.0-100.0); Mean Platelet Volume 9.2; Platelet Count 123 k/uL (150-450); RBC 2.92 m/uL (4.30-5.90); RDW 14.9 % (11.5-15.5); WBC 7.4 k/uL (3.8-10.6)
[2022-08-25 05:38] LABS: African American GFR (CKD) >90 (>60 ml/min/1.73 sqM); Anion Gap 3 mmol/L; Blood Urea Nitrogen 13 mg/dL (9-20); Calcium 7.4 mg/dL (8.4-10.2); Carbon Dioxide 21 mmol/L (22-30); Chloride 113 mmol/L (98-107); Glucose 110 mg/dL (74-99); Non-African American GFR(CKD) 89 (>60 ml/min/1.73 sqM); Potassium 4.1 mmol/L (3.5-5.1); Sodium 137 mmol/L (137-145)
[2022-08-25] MEDS: LEVOTHYROXINE 100 MCG TAB PO SCH (06:13)
[2022-08-25] MEDS: SODIUM CHLORIDE 0.9% 1,000 ML IV SCH ×2 (06:14→16:41)
[2022-08-25] MEDS: HYDROmorphone 0.5 MG/0.5 ML SYRINGE IVP PRN ×4 (06:14→20:41)
--- NOTE | 2022-08-25 06:57 | IR ---
EXAMINATION TYPE: IR port captain aorta DATE OF EXAM: 08/24/2022 CLINICAL HISTORY: AAA. TECHNIQUE: Fluoroscopy. COMPARISON: CT abdomen and pelvis one day earlier FINDINGS: Fluoroscopic guidance was provided during AAA repair procedure performed by Dr. Cook. A total of 32 minute of fluoroscopic time was utilized during the procedure and 308 spot intraoperati ve fluoroscopic images are acquired. Please refer to procedure note for further details as I was not present nor performed procedure. IMPRESSION: As Above.
[2022-08-25] MEDS: CYANOCOBALAMIN 500 MCG TAB PO SCH (08:31)
[2022-08-25] MEDS: NICOTINE 21MG/24HR PATCH TRANSDERM SCH (08:31)
[2022-08-25] MEDS: ESCITALOPRAM 20 MG TAB PO SCH (08:31)
[2022-08-25] MEDS: ASPIRIN 81 MG PO SCH (08:31)
[2022-08-25] MEDS: FAMOTIDINE 20 MG TAB PO SCH ×2 (08:31→20:40)
[2022-08-25] MEDS: SUCRALFATE 1 GM TAB PO SCH ×2 (08:31→20:41)
[2022-08-25] MEDS ORDERED: LOSARTAN 25 MG TAB PO SCH (09:00)
[2022-08-25] MEDS: lisinopriL 5 MG TAB PO SCH (09:43)
[2022-08-25] MEDS: carvediloL 6.25 MG TAB PO SCH (09:43)
--- NOTE | 2022-08-25 10:08 | P.PN ---
Subjective Progress Note Date: 08/25/22 Principal diagnosis: Abdominal aortic aneurysm status post EVAR Patient is seen and examined in the ICU. He is postop day #1 for percutaneous endovascular aortic repair with alternative device is well as right groin cutdown with femoral artery repair, right common femoral artery endarterectomy with patch angioplasty. Pain is being well managed. He denies any shortness of breath, chest pain abdominal pain, back pain nausea or vomiting. Blood pressures have been stable but a little on the lower side. He is only currently on IV fluids at this time. He has been nothing by mouth throughout the night and requesting diet. He is having some pain at the right groin, there is no bleeding or hematoma noted. Left groin access site without hematoma, minimal bruising and no bleeding. Cardiology is following. Objective - Vital Signs Vital signs: Vital Signs Temp 98 F 08/25/22 04:00 Pulse 57 L 08/25/22 07:00 Resp 18 08/25/22 07:00 BP 117/58 08/25/22 07:00 Pulse Ox 92 L 08/25/22 07:00 FiO2 Intake & Output 08/24/22 08/25/22 08/25/22 18:59 06:59 18:59 Intake Total 1118 600 75 Output Total 400 355 30 Balance 718 245 45 Weight 63.8 kg Intake: IV 1000 600 75 Sodium Chloride 0.9% 1, 600 75 000 ml @ 75 mls/hr IV . [id number] [facility] Rx#:[id number] Oral 118 Output: Urine 400 355 30 Other: Voiding Method Urinal Indwelling Catheter ABP, PAP, CO, CI - Last Documented Arterial Blood Pressure 105/44 - Exam General appearance: The patient is alert, oriented, appears in no acute distress. HET: Head is normocephalic and atraumatic. Pupils are equal and reactive. Neck: Supple. Heart: Regular. Lungs: Equal expansion, normal respiratory effort. Abdomen: Soft, nontender, nondistended. Extremities: Normal skin color and turgor. No edema bilateral. Right groin with dressing in place no active bleeding no hematoma noted. Left groin with dressing in place removed with no active bleeding or hematoma noted, small amount of bruising. Right PT and DP Doppler signal present. Left PT Doppler signal present.. Neurological: No focal deficits. - Labs CBC & Chem 7: 08/25/22 16:01 08/25/22 05:17 Labs: Abnormal Lab Results - Last 24 Hours (Table) 08/24/22 08/24/22 08/24/22 Range/Units 22:25 22:32 22:32 RBC 3.33 L (4.30-5.90) m/uL Hgb 9.5 L D (13.0-17.5) gm/dL Hct 30.3 L (39.0-53.0) % Plt Count 130 L (150-450) k/uL Chloride 113 H (98-107) mmol/L Carbon Dioxide 20 L (22-30) mmol/L Glucose 116 H (74-99) mg/dL POC Glucose (mg/dL) 121 H (70-110) mg/dL Calcium 7.4 L (8.4-10.2) mg/dL 08/25/22 08/25/22 Range/Units 05:17 05:17 RBC 2.92 L (4.30-5.90) m/uL Hgb 8.2 L (13.0-17.5) gm/dL Hct 25.5 L (39.0-53.0) % Plt Count 123 L (150-450) k/uL Chloride 113 H (98-107) mmol/L Carbon Dioxide 21 L (22-30) mmol/L Glucose 110 H (74-99) mg/dL POC Glucose (mg/dL) (70-110) mg/dL Calcium 7.4 L (8.4-10.2) mg/dL Assessment and Plan Assessment: 1. Abdominal aortic aneurysm measuring 7 cm status post percutaneous endovascular aortic repair with alto device, bilateral external iliac and common iliac artery angioplasty 2. Right groin cutdown femoral artery repair, right common femoral artery endarterectomy with patch angioplasty, bilateral iliofemoral angiogram 3. Abdominal pain, resolved 4. Ischemic cardiomyopathy, EF 25% 5. Coronary artery disease status post four-vessel CABG, stents 6. History of AICD implantation 7. Hypertension and hyperlipidemia 8. COPD 9. Hypothyroidism 10. Nicotine dependence Plan: 1. Continue symptomatic and supportive care 2. Advance to clear liquid diet, then as tolerated 3. Patient may sit up in bed, then encourage early ambulation 4. Repeat hemoglobin this afternoon 5. Continue with recommendations from cardiology 6. Nicotine patch ordered 7. Patient may be transferred to [address] [place] [address] Thank you for this consultation, we will continue to follow. The impression and plan of care has been dictated as directed. Dr. Alanis I performed a history and examination of this patient, discussed the same with the dictator. I agree with the dictator's note ,documented as a scribe. Any additional findings or plans will be noted.
--- NOTE | 2022-08-25 15:10 | P.CNPUL ---
History of Present Illness Consult date: 08/25/22 Requesting physician: Dagoberto Cook Reason for consult: other (ICU management, status post EVAR) Chief complaint: Abdominal aortic aneurysm History of present illness: This is a 72-year-old white male, postoperative day #1, patient underwent percutaneous endovascular aortic repair with alto device, patient had right groin cutdown with femoral artery., Right common femoral artery endarterectomy with patch angioplasty this was done yesterday by vascular surgery, patient was transferred to the ICU and I was asked to see him on consultation. I saw this patient this morning, seems to be doing very well, denies any shortness of breath, denies any cough, denies any nausea vomiting or abdominal pain. Patient is actually doing extremely well and his left groin showed no evidence of hematoma, patient is being followed by other consultants including vascular surgery and cardiology. No active pulmonary issues or hemodynamic issues at this point. WBC count is 7.4 hemoglobin is 8.2. X-rays are normal renal profile is normal. Patient is known to have history of ischemic cardiomyopathy and previous AICD implantation. He is also known to have history of CABG, hypertension, dyslipidemia, and underlying COPD which is presently inactive. Review of Systems CONSTITUTIONAL: Negative. HEENT: Negative CARDIOVASCULAR: Negative RESPIRATORY: Negative GASTROINTESTINAL: Negative HEMATOLOGIC: Negative GENITOURINARY: Negative SKIN: Denies pruitis. Negative Neurologic: Negative Psychiatric: Past Medical History Past Medical History: Coronary Artery Disease (CAD), Heart Failure, Dementia, Hyperlipidemia, Hypertension, Seizure Disorder, Syncope, Thyroid Disorder Additional Past Medical History / Comment(s): Ischemic cardiomyopathy, EF 20- 25%, last seizure about 2 yrs ago, hypothyroid.neuropathy "WHEN HE WORKED HE HAD A CRUSHING INJURY -COLLAPSED LUNGS C/T AND HAS CHRONIC BACK PAIN"" pt states he is schizophrenic/bipolar. History of Any Multi-Drug Resistant Organisms: None Reported Past Surgical History: AICD, Back Surgery, Coronary Bypass/CABG, Heart Catheterization, Heart Catheterization With Stent Additional Past Surgical History / Comment(s): 1995 CABG 4 vessel in [place], has had 2"HEART CATHS/had 2 STENTS after cabg sx.pt stated they were done in [facility]. "sx on tailbone, cortisone injections, devin inguinal hernia repair Past Anesthesia/Blood Transfusion Reactions: No Reported Reaction Date of Last Stent Placement:: 1995 Type of Cardiac Device: AICD Device Placement Date:: 1995 in [facility] Smoking Status: Current every day smoker - Past Family History Mother Family Medical History: Respiratory Disorder Additional Family Medical History / Comment(s): Mother had TB Father Additional Family Medical History / Comment(s): Father was an alcoholic. Medications and Allergies Home Medications Medication Instructions Recorded Confirmed Type Acetaminophen Tab [Tylenol Tab] 1,000 mg PO Q4H PRN 08/23/22 08/23/22 History Cyanocobalamin (Vitamin B-12) 1,000 mcg PO DAILY 08/23/22 08/23/22 History [Vitamin B-12] Escitalopram [Lexapro] 20 mg PO DAILY 08/23/22 08/23/22 History Famotidine [Pepcid] 20 mg PO BID 08/23/22 08/23/22 History Levothyroxine Sodium [Synthroid] 100 mcg PO DAILY 08/23/22 08/23/22 History Melatonin 6 mg PO HS 08/23/22 08/23/22 History Sennosides/Docusate Sodium [Senna 2 tab PO HS 08/23/22 08/23/22 History Plus 8.6-50 mg Tablet] Sucralfate [Carafate] 1 gm PO BID 08/23/22 08/23/22 History ramipriL 1.25 mg PO DAILY 08/23/22 08/23/22 History traZODone HCL [Desyrel] 50 mg PO HS 08/23/22 08/23/22 History Allergies Allergy/AdvReac Type Severity Reaction Status Date / Time morphine Allergy Anaphylaxis Verified 08/23/22 21:04 Penicillins Allergy Swelling Verified 08/23/22 21:04 on entire body Influenza Virus Vaccines AdvReac Unknown Verified 08/23/22 21:04 pneumococcal vaccine AdvReac Unknown Verified 08/23/22 21:04 Physical Exam Vitals: Vital Signs Temp Pulse Pulse Resp BP BP BP 08/25/22 14:00 69 15 96/49 08/25/22 13:00 65 12 133/50 08/25/22 12:00 97.8 F 75 11 L 105/50 08/25/22 11:00 58 L 14 102/49 08/25/22 10:00 64 20 118/57 08/25/22 09:00 97.7 F 56 L 21 115/53 08/25/22 08:37 63 125/50 115/53 08/25/22 08:00 97.7 F 62 20 101/52 08/25/22 07:00 57 L 18 117/58 08/25/22 06:00 60 13 121/57 08/25/22 05:00 56 L 12 114/57 08/25/22 04:00 98 F 63 16 105/59 08/25/22 03:00 64 22 97/51 08/25/22 02:00 61 12 101/50 08/25/22 01:00 58 L 93/47 08/25/22 00:00 97.3 F L 56 L 14 08/24/22 23:00 96.3 F L 52 L 13 133/73 08/24/22 22:17 35 H 08/24/22 22:00 49 L 16 124/72 08/24/22 21:45 50 L 17 128/50 130/54 08/24/22 21:30 51 L 18 140/58 131/74 08/24/22 21:15 96.9 F L 57 L 20 137/62 Pulse Ox 08/25/22 14:00 99 08/25/22 13:00 95 08/25/22 12:00 97 08/25/22 11:00 97 08/25/22 10:00 96 08/25/22 09:00 98 08/25/22 08:37 08/25/22 08:00 97 08/25/22 07:00 92 L 08/25/22 06:00 96 08/25/22 05:00 98 08/25/22 04:00 96 08/25/22 03:00 96 08/25/22 02:00 92 L 08/25/22 01:00 95 08/25/22 00:00 93 L 08/24/22 23:00 97 08/24/22 22:17 08/24/22 22:00 97 08/24/22 21:45 51 L 08/24/22 21:30 97 08/24/22 21:15 Intake and Output 08/25/22 08/25/22 08/25/22 06:59 14:59 22:59 Intake Total 600 600 Output Total 355 210 Balance 245 390 Intake: IV 600 600 Sodium Chloride 0.9% 1, 600 600 000 ml @ 75 mls/hr IV . [id number] [facility] Rx#:[id number] Output: Urine 355 210 Other: Voiding Method Indwelling Catheter Indwelling Catheter Weight 63.8 kg ABP, PAP, CO, CI - Last 8 Hours Arterial Blood Pressure 116/42 Arterial Blood Pressure 99/40 Arterial Blood Pressure 164/62 Arterial Blood Pressure 114/44 Arterial Blood Pressure 99/44 Arterial Blood Pressure 120/46 Arterial Blood Pressure 130/47 Physical Exam: Revealed 72-year-old white male in no distress. Head: Atraumatic, normal. HEENT:[Neck is supple.] [No neck masses.] [No thyromegaly.] [No JVD.] Chest: [Clear throughout, no crackles, no rhonchi, no wheezes.] Cardiac Exam: [Normal S1 and S2, no S3 gallop, 2/6 systolic murmur thought the precordium. Abdomen: [Soft, nontender, no megaly, no rebound, no guarding, normal bowel sounds.] Extremities: [No clubbing, no edema, no cyanosis.] Neurological Exam: [No focal neurologic deficit.] No focal neurologic deficits. Psychiatric: Normal mood, affect and normal mental status examination. Skin: No rashes Results - Laboratory Findings CBC and BMP: 08/25/22 05:17 08/25/22 05:17 PT/INR, D-dimer PT 11.3 sec (9.0-12.0) 08/23/22 18:20 INR 1.1 (<1.2) 08/23/22 18:20 Abnormal lab findings: Abnormal Labs 08/23/22 08/24/22 08/24/22 18:20 22:25 22:32 RBC 4.18 L 3.33 L Hgb 11.4 L 9.5 L D Hct 36.3 L 30.3 L Plt Count 130 L Chloride Carbon Dioxide Glucose POC Glucose (mg/dL) 121 H Calcium 08/24/22 08/25/22 08/25/22 22:32 05:17 05:17 RBC 2.92 L Hgb 8.2 L Hct 25.5 L Plt Count 123 L Chloride 113 H 113 H Carbon Dioxide 20 L 21 L Glucose 116 H 110 H POC Glucose (mg/dL) Calcium 7.4 L 7.4 L Assessment and Plan Assessment: Impression: Abdominal aortic aneurysm large in size, measuring 7 cm, patient is status post percutaneous endovascular aortic repair, bilateral external iliac and common iliac artery angioplasty. And right groin cutdown with femoral artery.. Bilateral iliofemoral angiogram. Postoperative day #1. History of ischemic cardiomyopathy and LV dysfunction, ejection fraction of 25% History of underlying coronary artery disease previous CABG and stent placement History of AICD placement Dyslipidemia Hypothyroidism History of underlying COPD, presently inactive Recommendation: Resume home meds Continue present supportive care measures Continue incentive spirometry Monitor hemoglobin for acute blood loss anemia Continue nicotine patch Early ambulation if possible. Patient is now sitting up in bed. Advanced diet as tolerated We'll continue to follow Time with Patient: Greater than 30
[2022-08-25 16:21] LABS: Hypochromasia Moderate; MCH 27.5 pg (25.0-35.0); MCV 88.7 fL (80.0-100.0); Mean Platelet Volume 8.8; Platelet Count 127 k/uL (150-450); RBC 2.93 m/uL (4.30-5.90); RDW 15.4 % (11.5-15.5); WBC 8.6 k/uL (3.8-10.6)
[2022-08-25] MEDS: carvediloL 3.125 MG TAB PO SCH (16:41)
[2022-08-25] MEDS: ATORVASTATIN 40 MG TAB PO SCH (20:40)
[2022-08-25] MEDS: MELATONIN 3 MG TABLET PO SCH (20:40)
[2022-08-25] MEDS: SENNOSIDES-DOCUSATE SODIUM 1 EACH TAB PO SCH (20:41)
[2022-08-25] MEDS: traZODone HCL 50 MG TAB PO SCH (20:41)
--- NOTE | 2022-08-25 21:03 | PN ---
PROGRESS NOTE SUBJECTIVE: This is a 72-year-old gentleman that we were asked to do a preop cardiac evaluation prior to repair of the abdominal aortic aneurysm. He underwent successful percutaneous endovascular aortic aneurysm repair, doing well. He had right common femoral artery endarterectomy with angioplasty. OBJECTIVE: VITAL SIGNS: On exam, heart rate is 60 beats per minute. Blood pressure is 120/50, respiratory rate is 18. CHEST: Reveals good air entry bilaterally. HEART: Reveals first and second heart sounds. Systolic murmur at the apex. ABDOMEN: Soft. EXTREMITIES: Exam of extremities did not reveal any edema. Foot pulses are intact. GROIN: Soft. I do not see any hematoma. DIAGNOSTIC DATA: An echocardiogram on this admission revealed an ejection fraction of 40% to 45% with moderate pulmonary hypertension. The patient is currently on aspirin, Lipitor, Coreg, Zestril. ASSESSMENT: Coronary artery disease, status post coronary artery bypass grafting, ischemic cardiomyopathy, abdominal aortic aneurysm, status post ICD and dyslipidemia. PLAN: The patient is doing well. He tolerated the surgery well. Continue current medications and we can transfer him out of ICU. MMODL / IJN: [id number] /
[2022-08-26] MEDS: HYDROmorphone 0.5 MG/0.5 ML SYRINGE IVP PRN ×6 (00:49→22:35)
--- NOTE | 2022-08-26 01:40 | PN ---
PROGRESS NOTE SUBJECTIVE: This is a 72-year-old status post abdominal aortic aneurysm, EVAR, percutaneous endovascular aortic repair without enough device, right femoral artery repair. Blood pressure has been stable, however, on the lower side. He is on IV fluids. Advance his diet as tolerated. OBJECTIVE: VITAL SIGNS: Temperature 98, pulse is 50 to 60s, respiratory rate 16 to 18, and blood pressure 117/58, O2 92%. HEENT: Normocephalic, atraumatic. Pupils equal, round, reactive. HEART: S1, S2. NECK: Supple. ABDOMEN: Soft, nontender. HEMATOLOGY: Negative Homans. PLAN: Continue current treatment. Monitor, hemoglobin 8.3 currently, sodium 137, potassium 4.1. Continue with current treatment, ischemic cardiomyopathy. Continue with current home medications. Monitor blood pressure and use fluids. Advance diet as tolerated. Prognosis guarded. MMODL / IJN: [id number] /
[2022-08-26] MEDS: LEVOTHYROXINE 100 MCG TAB PO SCH (05:07)
[2022-08-26] MEDS: SODIUM CHLORIDE 0.9% 1,000 ML IV SCH ×2 (05:07→18:33)
[2022-08-26] MEDS: carvediloL 3.125 MG TAB PO SCH ×2 (05:07→16:28)
[2022-08-26 08:55] LABS: HCT 25.1 % (39.0-53.0); HGB 7.9 gm/dL (13.0-17.5); Hypochromasia Slight; MCH 27.6 pg (25.0-35.0); MCHC 31.6 g/dL (31.0-37.0); MCV 87.5 fL (80.0-100.0); Mean Platelet Volume 9.4; Platelet Count 119 k/uL (150-450); RBC 2.87 m/uL (4.30-5.90); RDW 15.2 % (11.5-15.5); WBC 8.8 k/uL (3.8-10.6)
[2022-08-26] MEDS: CYANOCOBALAMIN 500 MCG TAB PO SCH (09:09)
[2022-08-26] MEDS: ESCITALOPRAM 20 MG TAB PO SCH (09:09)
[2022-08-26] MEDS: ASPIRIN 81 MG PO SCH (09:09)
[2022-08-26] MEDS: NICOTINE 21MG/24HR PATCH TRANSDERM SCH (09:09)
[2022-08-26] MEDS: FAMOTIDINE 20 MG TAB PO SCH ×2 (09:10→20:19)
[2022-08-26] MEDS: SUCRALFATE 1 GM TAB PO SCH ×2 (09:10→20:19)
[2022-08-26] MEDS: lisinopriL 5 MG TAB PO SCH (09:10)
[2022-08-26 09:16] LABS: African American GFR (CKD) >90 (>60 ml/min/1.73 sqM); Anion Gap 4 mmol/L; Blood Urea Nitrogen 10 mg/dL (9-20); Calcium 7.8 mg/dL (8.4-10.2); Carbon Dioxide 24 mmol/L (22-30); Chloride 107 mmol/L (98-107); Glucose 95 mg/dL (74-99); Non-African American GFR(CKD) 88 (>60 ml/min/1.73 sqM); Potassium 4.1 mmol/L (3.5-5.1); Sodium 135 mmol/L (137-145)
--- NOTE | 2022-08-26 09:20 | P.PN ---
Subjective Progress Note Date: 08/26/22 Principal diagnosis: Abdominal aortic aneurysm status post EVAR Patient is seen and examined. He was transferred out of the ICU yesterday. He is postop day #2 for percutaneous endovascular aortic repair with alternative device is well as right groin cutdown with femoral artery repair, right common femoral artery endarterectomy with patch angioplasty. Pain is being well manage d. He denies any shortness of breath, chest pain abdominal pain, back pain nausea or vomiting. He's been afebrile. Passing planus, no bowel movement. He states he has been up and walked a short distance has been up in the chair. He is still having pain in the right groin. Repeat hemoglobin ordered this morning came back at 7.9. Plan for 1 unit of blood transfusion. Objective - Vital Signs Vital signs: Vital Signs Temp 98.9 F 08/26/22 04:00 Pulse 76 08/26/22 04:00 Resp 18 08/26/22 04:00 BP 101/52 08/26/22 04:00 Pulse Ox 99 08/26/22 04:00 FiO2 Intake & Output 08/25/22 08/26/22 08/26/22 18:59 06:59 18:59 Intake Total 675 75 Output Total 270 150 Balance 405 -75 Intake: IV 675 Sodium Chloride 0.9% 1, 675 000 ml @ 75 mls/hr IV . [id number] [facility] Rx#:[id number] Intake, IV Titration 75 Amount Sodium Chloride 0.9% 1, 75 000 ml @ 75 mls/hr IV . [id number] [facility] Rx#:[id number] Output: Urine 270 150 Other: Voiding Method Indwelling Catheter Diaper # Voids 1 ABP, PAP, CO, CI - Last Documented Arterial Blood Pressure 116/42 - Exam General appearance: The patient is alert, oriented, appears in no acute distress. HET: Head is normocephalic and atraumatic. Pupils are equal and reactive. Neck: Supple. Heart: Regular. Lungs: Equal expansion, normal respiratory effort. Abdomen: Soft, nontender, nondistended, positive bowel sounds. Extremities: Normal skin color and turgor. No edema bilateral. Right groin incision well approximated no active bleeding. Left groin access site with no active bleeding or hematoma noted, some surrounding ecchymosis noted. Right PT and DP Doppler signal present. Left PT Doppler signal present.. Neurological: No focal deficits. - Labs CBC & Chem 7: 08/26/22 08:38 08/25/22 05:17 Labs: Abnormal Lab Results - Last 24 Hours (Table) 08/23/22 08/25/22 08/26/22 Range/Units 18:20 16:01 08:38 RBC 2.93 L 2.87 L (4.30-5.90) m/uL Hgb 8.0 L 7.9 L (13.0-17.5) gm/dL Hct 26.0 L 25.1 L (39.0-53.0) % Plt Count 127 L 119 L (150-450) k/uL Crossmatch See Detail Assessment and Plan Assessment: 1. Abdominal aortic aneurysm measuring 7 cm status post percutaneous endovascular aortic repair with alto device, bilateral external iliac and common iliac artery angioplasty 2. Right groin cutdown femoral artery repair, right common femoral artery endarterectomy with patch angioplasty, bilateral iliofemoral angiogram 3. Acute blood loss anemia 4. Abdominal pain, resolved 5. Ischemic cardiomyopathy, EF 25% 6. Coronary artery disease status post four-vessel CABG, stents 7. History of AICD implantation 8. Hypertension and hyperlipidemia 9. COPD 10. Hypothyroidism 11. Nicotine dependence Plan: 1. Continue symptomatic and supportive care 2. Continue heart healthy diet 3. Encourage early ambulation, physical therapy consulted 4. Transfuse 1 unit of blood 5. Repeat hemoglobin this afternoon 6. Continue with recommendations from cardiology 7. Nicotine patch ordered 8. Anticipate discharge later this afternoon if hemoglobin stable or tomorrow Thank you for this consultation, we will continue to follow. The impression and plan of care has been dictated as directed. Dr. Green I performed a history and examination of this patient, discussed the same with the dictator. I agree with the dictator's note ,documented as a scribe. Any additional findings or plans will be noted.
--- NOTE | 2022-08-26 12:40 | P.PN ---
Subjective Progress Note Date: 08/26/22 HISTORY OF PRESENT ILLNESS: This is a 72 year old male with a past medical history significant for ischemic cardiomyopathy, AICD implantation, coronary artery disease with previous CABG, hypertension, hyperlipidemia, and COPD. 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 We have been asked to see the patient in consultation for cardiac clearance. Patient examined at the bedside. Patient presented to the hospital with a chief complaint of abdominal pain. Patient underwent CT abdomen and pelvis revealing large 7cm abdominal aortic aneurysm which is increased more than 2 cm in diameter compared to exam. No evidence of leak. Small left pleural effusion which appears new compared to old exam. The patient was examined this morning at the bedside. The patient reports mild shortness of breath. He reports epigastric tenderness. Patient's vital signs are stable. Blood pressure 152/92. * EKG reveals sinus mechanism with a heart rate of 67 * Laboratory data: WBC 6.3. Hemoglobin 11.4. Platelet count 165. Sodium 139. Potassium 4.1. BUN 13. Creatinine 1.01. Lactic acid 1.6. * Current home cardiac medications include Ramipril 1.25 mg daily. 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 No convincing evidence of reversible ischemia. 08/26/2022 Patient is status post percutaneous endovascular aortic repair. Patient was transferred out of the ICU to . patient examined this morning at the bedside. Patient denies chest pain or pressure. He denies shortness of breath. Systolic blood pressure running in the 90s. Echocardiogram completed revealing ejection fraction 40-45%. PHYSICAL EXAM: VITAL SIGNS: Reviewed. GENERAL: Well-developed in no acute distress. HEENT: Head is normocephalic. Pupils are equal, round. Sclerae anicteric. Mucous membranes of the mouth are moist. Neck supple. No JVD or thyromegaly LUNGS: Respirations even and unlabored. Lungs essentially clear to auscultation bilaterally. HEART: Regular rate and rhythm. S1 and S2 heard. Systolic murmur noted ABDOMEN: Soft. Nondistended. Nontender. EXTREMITIES: Normal range of motion. No clubbing or cyanosis. Peripheral pulses intact. No lower extremity edema NEUROLOGIC: Awake and alert. Oriented x 3. ASSESSMENT: Abdominal pain Abdominal aortic aneurysm, measuring 7 cm Coronary artery disease with previous CABG x 4 vessel, 1995 Ischemic cardiomyopathy, EF 25% History of AICD implantation Hypertension Hyperlipidemia COPD Hypothyroidism Nicotine dependence PLAN: Continue current cardiac medications Continue to monitor blood pressure and continue telemetry monitoring Further recommendations pending patient course Nurse practitioner note has been reviewed by physician. Signing provider agrees with the documented findings, assessment, and plan of care. Objective - Vital Signs Vital signs: Vital Signs Temp 98 F 08/26/22 10:14 Pulse 55 L 08/26/22 10:43 Resp 16 08/26/22 10:43 BP 96/52 08/26/22 10:43 Pulse Ox 97 08/26/22 10:43 FiO2 Intake & Output 08/25/22 08/26/22 08/26/22 18:59 06:59 18:59 Intake Total 675 75 0 Output Total 270 150 Balance 405 -75 0 Intake: IV 675 Sodium Chloride 0.9% 1, 675 000 ml @ 75 mls/hr IV . [id number] [facility] Rx#:[id number] Intake, IV Titration 75 Amount Sodium Chloride 0.9% 1, 75 000 ml @ 75 mls/hr IV . [id number] [facility] Rx#:[id number] Blood Product 0 Unit 0 Output: Urine 270 150 Other: Voiding Method Indwelling Catheter Diaper Diaper # Voids 1 ABP, PAP, CO, CI - Last Documented Arterial Blood Pressure 116/42 - Labs CBC & Chem 7: 08/26/22 08:38 08/26/22 08:38 Labs: Abnormal Lab Results - Last 24 Hours (Table) 08/23/22 08/25/22 08/26/22 Range/Units 18:20 16:01 08:38 RBC 2.93 L 2.87 L (4.30-5.90) m/uL Hgb 8.0 L 7.9 L (13.0-17.5) gm/dL Hct 26.0 L 25.1 L (39.0-53.0) % Plt Count 127 L 119 L (150-450) k/uL Sodium (137-145) mmol/L Calcium (8.4-10.2) mg/dL Crossmatch See Detail 08/26/22 Range/Units 08:38 RBC (4.30-5.90) m/uL Hgb (13.0-17.5) gm/dL Hct (39.0-53.0) % Plt Count (150-450) k/uL Sodium 135 L (137-145) mmol/L Calcium 7.8 L (8.4-10.2) mg/dL Crossmatch
--- NOTE | 2022-08-26 12:54 | P.PN ---
Subjective Progress Note Date: 08/26/22 This is a 72-year-old white male, postoperative day #1, patient underwent percutaneous endovascular aortic repair with alto device, patient had right groin cutdown with femoral artery., Right common femoral artery endarterectomy with patch angioplasty this was done yesterday by vascular surgery, patient was transferred to the ICU and I was asked to see him on consultation. I saw this patient this morning, seems to be doing very well, denies any shortness of breath, denies any cough, denies any nausea vomiting or abdominal pain. Patient is actually doing extremely well and his left groin showed no evidence of hematoma, patient is being followed by other consultants including vascular surgery and cardiology. No active pulmonary issues or hemodynamic issues at this point. WBC count is 7.4 hemoglobin is 8.2. X-rays are normal renal profile is normal. Patient is known to have history of ischemic cardiomyopathy and previous AICD implantation. He is also known to have history of CABG, hyper tension, dyslipidemia, and underlying COPD which is presently inactive. The patient is seen today 08/26/2022 in follow-up on the selective care unit. He is currently sitting up in bed. Awake and alert in no acute distress. He is maintaining O2 saturation up to 100% on 2 L nasal cannula. He is afebrile. Hemodynamically stable. He is currently receiving a unit of blood. His hemoglobin was 7.9. White count 8.8. Platelets 119. Sodium 135. Potassium 4.1. Bicarb 24. BUN 10. Creatinine 0.85. Receiving normal saline at 75 ML's per hour. NicoDerm patch in place. Objective - Vital Signs Vital signs: Vital Signs Temp 98 F 08/26/22 10:14 Pulse 69 08/26/22 11:35 Resp 18 08/26/22 11:35 BP 89/52 08/26/22 11:35 Pulse Ox 100 08/26/22 11:35 FiO2 Intake & Output 08/25/22 08/26/22 08/26/22 18:59 06:59 18:59 Intake Total 675 75 0 Output Total 270 150 Balance 405 -75 0 Intake: IV 675 Sodium Chloride 0.9% 1, 675 000 ml @ 75 mls/hr IV . [id number] [facility] Rx#:[id number] Intake, IV Titration 75 Amount Sodium Chloride 0.9% 1, 75 000 ml @ 75 mls/hr IV . [id number] [facility] Rx#:[id number] Blood Product 0 Unit 0 Output: Urine 270 150 Other: Voiding Method Indwelling Catheter Diaper Diaper # Voids 1 ABP, PAP, CO, CI - Last Documented Arterial Blood Pressure 116/42 - Exam GENERAL EXAM: Alert, 72-year-old male, 2 L nasal cannula, O2 saturation 100%, comfortable in no apparent distress. HEAD: Normocephalic. EYES: Normal reaction of pupils, equal size. NOSE: Clear with pink turbinates. THROAT: No erythema or exudates. NECK: No masses, no JVD. CHEST: No chest wall deformity. LUNGS: Equal air entry with no crackles, wheeze, rhonchi or dullness. CVS: S1 and S2 normal with no audible murmur, regular rhythm. ABDOMEN: No hepatosplenomegaly, normal bowel sounds, no guarding or rigidity. SPINE: No scoliosis or deformity SKIN: No rashes CENTRAL NERVOUS SYSTEM: No focal deficits, tone is normal in all 4 extremities. EXTREMITIES: Right groin incision clean dry well approximated. No active bleeding. Left groin site without hematoma or active bleeding. Some ecchymos is. Doppler pulses. - Labs CBC & Chem 7: 08/26/22 08:38 08/26/22 08:38 Labs: Abnormal Lab Results - Last 24 Hours (Table) 08/23/22 08/25/22 08/26/22 Range/Units 18:20 16:01 08:38 RBC 2.93 L 2.87 L (4.30-5.90) m/uL Hgb 8.0 L 7.9 L (13.0-17.5) gm/dL Hct 26.0 L 25.1 L (39.0-53.0) % Plt Count 127 L 119 L (150-450) k/uL Sodium (137-145) mmol/L Calcium (8.4-10.2) mg/dL Crossmatch See Detail 08/26/22 Range/Units 08:38 RBC (4.30-5.90) m/uL Hgb (13.0-17.5) gm/dL Hct (39.0-53.0) % Plt Count (150-450) k/uL Sodium 135 L (137-145) mmol/L Calcium 7.8 L (8.4-10.2) mg/dL Crossmatch Assessment and Plan Assessment: Abdominal aortic aneurysm large in size, measuring 7 cm, patient is status post percutaneous endovascular aortic repair, bilateral external iliac and common iliac artery angioplasty. And right groin cutdown with femoral artery.. Bilateral iliofemoral angiogram. Postoperative day #2. Hemoglobin 7.9 and receiving 1 unit of packed red blood cells. History of ischemic cardiomyopathy and LV dysfunction, ejection fraction of 25% History of underlying coronary artery disease previous CABG and stent placement History of AICD placement Dyslipidemia Hypothyroidism History of underlying COPD, presently inactive Plan: The patient was seen and evaluated Stable from the pulmonary and critical care standpoint Titrate off the FiO2 as tolerated We will see as needed I have personally seen and examined the patient, performed the documentation and the assessment and plan as written. Number of minutes spent on the visit: 10.
[2022-08-26 17:58] LABS: HGB 9.1 gm/dL (13.0-17.5); Hypochromasia Slight; MCH 28.2 pg (25.0-35.0); MCHC 32.3 g/dL (31.0-37.0); MCV 87.4 fL (80.0-100.0); Platelet Count 113 k/uL (150-450); RBC 3.21 m/uL (4.30-5.90); RDW 14.8 % (11.5-15.5); WBC 8.2 k/uL (3.8-10.6)
[2022-08-26] MEDS: SENNOSIDES-DOCUSATE SODIUM 1 EACH TAB PO SCH (20:18)
[2022-08-26] MEDS: traZODone HCL 50 MG TAB PO SCH (20:19)
[2022-08-26] MEDS: ATORVASTATIN 40 MG TAB PO SCH (20:19)
[2022-08-26] MEDS: MELATONIN 3 MG TABLET PO SCH (20:19)
[2022-08-27] MEDS: HYDROmorphone 0.5 MG/0.5 ML SYRINGE IVP PRN ×5 (03:42→22:54)
[2022-08-27] MEDS: LEVOTHYROXINE 100 MCG TAB PO SCH (06:13)
[2022-08-27] MEDS: carvediloL 3.125 MG TAB PO SCH ×2 (06:14→17:00)
[2022-08-27 07:47] LABS: HCT 25.3 % (39.0-53.0); HGB 8.2 gm/dL (13.0-17.5); MCHC 32.3 g/dL (31.0-37.0); MCV 86.5 fL (80.0-100.0); Mean Platelet Volume 9.4; Platelet Count 113 k/uL (150-450); RBC 2.92 m/uL (4.30-5.90); WBC 6.1 k/uL (3.8-10.6)
[2022-08-27] MEDS: ASPIRIN 81 MG PO SCH (08:48)
[2022-08-27] MEDS: ESCITALOPRAM 20 MG TAB PO SCH (08:48)
[2022-08-27] MEDS: NICOTINE 21MG/24HR PATCH TRANSDERM SCH (08:48)
[2022-08-27] MEDS: FAMOTIDINE 20 MG TAB PO SCH ×2 (08:49→21:13)
[2022-08-27] MEDS: SUCRALFATE 1 GM TAB PO SCH ×2 (08:49→21:14)
[2022-08-27] MEDS: lisinopriL 5 MG TAB PO SCH (08:49)
[2022-08-27] MEDS: SODIUM CHLORIDE 0.9% 1,000 ML IV SCH ×2 (08:49→21:14)
[2022-08-27] MEDS: CYANOCOBALAMIN 500 MCG TAB PO SCH (08:49)
--- NOTE | 2022-08-27 09:45 | P.PN ---
Subjective Progress Note Date: 08/27/22 HISTORY OF PRESENT ILLNESS: This is a 72 year old male with a past medical history significant for ischemic cardiomyopathy, AICD implantation, coronary artery disease with previous CABG, hypertension, hyperlipidemia, and COPD. 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 We have been asked to see the patient in consultation for cardiac clearance. Patient examined at the bedside. Patient presented to the hospital with a chief complaint of abdominal pain. Patient underwent CT abdomen and pelvis revealing large 7cm abdominal aortic aneurysm which is increased more than 2 cm in diameter compared to exam. No evidence of leak. Small left pleural effusion which appears new compared to old exam. The patient was examined this morning at the bedside. The patient reports mild shortness of breath. He reports epigastric tenderness. Patient's vital signs are stable. Blood pressure 152/92. * EKG reveals sinus mechanism with a heart rate of 67 * Laboratory data: WBC 6.3. Hemoglobin 11.4. Platelet count 165. Sodium 139. Potassium 4.1. BUN 13. Creatinine 1.01. Lactic acid 1.6. * Current home cardiac medications include Ramipril 1.25 mg daily. 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 No convincing evidence of reversible ischemia. 08/26/2022 Patient is status post percutaneous endovascular aortic repair. Patient was transferred out of the ICU to . patient examined this morning at the bedside. Patient denies chest pain or pressure. He denies shortness of breath. Systolic blood pressure running in the 90s. Echocardiogram completed revealing ejection fraction 40-45%. 08/27/2022 Patient examined this morning at the bedside. Patient denies chest pain or pressure. He denies shortness of breath. Vital signs are stable. Hemoglobin today 8.2. PHYSICAL EXAM: VITAL SIGNS: Reviewed. GENERAL: Well-developed in no acute distress. HEENT: Head is normocephalic. Pupils are equal, round. Sclerae anicteric. Mucous membranes of the mouth are moist. Neck supple. No JVD or thyromegaly LUNGS: Respirations even and unlabored. Lungs essentially clear to auscultation bilaterally. HEART: Regular rate and rhythm. S1 and S2 heard. Systolic murmur noted ABDOMEN: Soft. Nondistended. Nontender. EXTREMITIES: Normal range of motion. No clubbing or cyanosis. Peripheral pulses intact. No lower extremity edema NEUROLOGIC: Awake and alert. Oriented x 3. ASSESSMENT: Abdominal pain Abdominal aortic aneurysm, measuring 7 cm Coronary artery disease with previous CABG x 4 vessel, 1995 Ischemic cardiomyopathy, EF 25% History of AICD implantation Hypertension Hyperlipidemia COPD Hypothyroidism Nicotine dependence PLAN: Continue current cardiac medications Continue to monitor blood pressure and continue telemetry monitoring Patient is stable for discharge home today from a cardiac standpoint Further recommendations pending patient course Nurse practitioner note has been reviewed by physician. Signing provider agrees with the documented findings, assessment, and plan of care. Objective - Vital Signs Vital signs: Vital Signs Temp 97.6 F 08/27/22 08:45 Pulse 70 08/27/22 08:45 Resp 18 08/27/22 08:45 BP 143/79 08/27/22 08:45 Pulse Ox 99 08/27/22 08:45 FiO2 Intake & Output 08/26/22 08/27/22 08/27/22 18:59 06:59 18:59 Intake Total 277 375 Output Total 150 200 Balance 127 175 Intake: IV 375 Sodium Chloride 0.9% 1, 375 000 ml @ 75 mls/hr IV . [id number] [facility] Rx#:[id number] Blood Product 277 Rc As-1 Unit 277 [id number] Output: Urine 150 200 Other: Voiding Method Diaper Diaper Diaper # Voids 1 ABP, PAP, CO, CI - Last Documented Arterial Blood Pressure 116/42 - Labs CBC & Chem 7: 08/27/22 07:19 08/26/22 08:38 Labs: Abnormal Lab Results - Last 24 Hours (Table) 08/23/22 08/26/22 08/27/22 Range/Units 18:20 16:29 07:19 RBC 3.21 L 2.92 L (4.30-5.90) m/uL Hgb 9.1 L 8.2 L (13.0-17.5) gm/dL Hct 28.0 L 25.3 L (39.0-53.0) % Plt Count 113 L 113 L (150-450) k/uL Crossmatch See Detail
--- NOTE | 2022-08-27 09:49 | P.PN ---
Subjective Progress Note Date: 08/27/22 Principal diagnosis: Abdominal aortic aneurysm status post EVAR Patient is seen and examined. He is postop day #3 for percutaneous endovascular aortic repair with alternative device is well as right groin cutdown with femoral artery repair, right common femoral artery endarterectomy with patch angioplasty. Pain is being well managed. He denies any shortness of breath, chest pain abdominal pain, back pain nausea or vomiting. He's been afebrile. He states he has been up and using bathroom. He is still having pain in the right groin but improved today. He received 1 unit of packed red blood cell transfusion yesterday with a repeat hemoglobin yesterday evening of 9.1. Today's repeat hemoglobin is 8.2. He denies any active bleeding from his incision sites. Objective - Vital Signs Vital signs: Vital Signs Temp 98.0 F 08/27/22 03:46 Pulse 73 08/27/22 03:46 Resp 17 08/27/22 03:46 BP 105/70 08/27/22 03:46 Pulse Ox 96 08/27/22 03:46 FiO2 Intake & Output 08/26/22 08/27/22 08/27/22 18:59 06:59 18:59 Intake Total 277 375 Output Total 150 200 Balance 127 175 Intake: IV 375 Sodium Chloride 0.9% 1, 375 000 ml @ 75 mls/hr IV . [id number] [facility] Rx#:[id number] Blood Product 277 Rc As-1 Unit 277 [id number] Output: Urine 150 200 Other: Voiding Method Diaper Diaper # Voids 1 ABP, PAP, CO, CI - Last Documented Arterial Blood Pressure 116/42 - Exam General appearance: The patient is alert, oriented, appears in no acute distress. HET: Head is normocephalic and atraumatic. Pupils are equal and reactive. Neck: Supple. Heart: Regular. Lungs: Equal expansion, normal respiratory effort. Abdomen: Soft, nontender, nondistended, positive bowel sounds. Extremities: Normal skin color and turgor. No edema bilateral. Right groin incision well approximated no active bleeding. Left groin access site with no active bleeding or hematoma noted, some surrounding ecchymosis noted. Right PT and DP Doppler signal present. Left PT Doppler signal present.. Neurological: No focal deficits. - Labs CBC & Chem 7: 08/27/22 07:19 08/26/22 08:38 Labs: Abnormal Lab Results - Last 24 Hours (Table) 08/23/22 08/26/22 08/26/22 Range/Units 18:20 08:38 08:38 RBC 2.87 L (4.30-5.90) m/uL Hgb 7.9 L (13.0-17.5) gm/dL Hct 25.1 L (39.0-53.0) % Plt Count 119 L (150-450) k/uL Sodium 135 L (137-145) mmol/L Calcium 7.8 L (8.4-10.2) mg/dL Crossmatch See Detail 08/26/22 08/27/22 Range/Units 16:29 07:19 RBC 3.21 L 2.92 L (4.30-5.90) m/uL Hgb 9.1 L 8.2 L (13.0-17.5) gm/dL Hct 28.0 L 25.3 L (39.0-53.0) % Plt Count 113 L 113 L (150-450) k/uL Sodium (137-145) mmol/L Calcium (8.4-10.2) mg/dL Crossmatch Assessment and Plan Assessment: 1. Abdominal aortic aneurysm measuring 7 cm status post percutaneous endovascular aortic repair with alto device, bilateral external iliac and common iliac artery angioplasty 2. Right groin cutdown femoral artery repair, right common femoral artery endarterectomy with patch angioplasty, bilateral iliofemoral angiogram 3. Acute blood loss anemia 4. Abdominal pain, resolved 5. Ischemic cardiomyopathy, EF 25% 6. Coronary artery disease status post four-vessel CABG, stents 7. History of AICD implantation 8. Hypertension and hyperlipidemia 9. COPD 10. Hypothyroidism 11. Nicotine dependence Plan: 1. Continue symptomatic and supportive care 2. Continue heart healthy diet 3. Encourage early ambulation, physical therapy consulted 4. Repeat CBC tomorrow morning transfuse for hemoglobin less than 8 5. Continue with recommendations from cardiology 6. Continue nicotine patch 7. Recommend watching patient overnight for follow-up hemoglobin Thank you for this consultation, we will continue to follow. The impression and plan of care has been dictated as directed. Dr. Alanis I performed a history and examination of this patient, discussed the same with the dictator. I agree with the dictator's note ,documented as a scribe. Any additional findings or plans will be noted.
--- NOTE | 2022-08-27 11:59 | P.PN ---
Subjective Progress Note Date: 08/27/22 This is a 72-year-old white male, postoperative day #1, patient underwent percutaneous endovascular aortic repair with alto device, patient had right groin cutdown with femoral artery., Right common femoral artery endarterectomy with patch angioplasty this was done yesterday by vascular surgery, patient was transferred to the ICU and I was asked to see him on consultation. I saw this patient this morning, seems to be doing very well, denies any shortness of breath, denies any cough, denies any nausea vomiting or abdominal pain. Patient is actually doing extremely well and his left groin showed no evidence of hematoma, patient is being followed by other consultants including vascular surgery and cardiology. No active pulmonary issues or hemodynamic issues at this point. WBC count is 7.4 hemoglobin is 8.2. X-rays are normal renal profile is normal. Patient is known to have history of ischemic cardiomyopathy and previous AICD implantation. He is also known to have history of CABG, hyper tension, dyslipidemia, and underlying COPD which is presently inactive. The patient is seen today 08/26/2022 in follow-up on the selective care unit. He is currently sitting up in bed. Awake and alert in no acute distress. He is maintaining O2 saturation up to 100% on 2 L nasal cannula. He is afebrile. Hemodynamically stable. He is currently receiving a unit of blood. His hemoglobin was 7.9. White count 8.8. Platelets 119. Sodium 135. Potassium 4.1. Bicarb 24. BUN 10. Creatinine 0.85. Receiving normal saline at 75 ML's per hour. NicoDerm patch in place. The patient is seen today 08/27/2022 in follow-up on the selective care unit. He is currently sitting up in a chair. Awake and alert in no acute distress. Maintaining O2 saturations in the 90s on room air. Afebrile. Hemodynamically stable. He is status post 1 unit of packed red blood cells. Current hemoglobin 8.2. Platelets 113. White count 6.1. NicoDerm patch in place. Objective - Vital Signs Vital signs: Vital Signs Temp 97.6 F 08/27/22 08:45 Pulse 70 08/27/22 08:45 Resp 18 08/27/22 08:45 BP 143/79 08/27/22 08:45 Pulse Ox 99 08/27/22 08:45 FiO2 Intake & Output 08/26/22 08/27/22 08/27/22 18:59 06:59 18:59 Intake Total 277 375 Output Total 150 200 Balance 127 175 Intake: IV 375 Sodium Chloride 0.9% 1, 375 000 ml @ 75 mls/hr IV . [id number] [facility] Rx#:[id number] Blood Product 277 Rc As-1 Unit 277 [id number] Output: Urine 150 200 Other: Voiding Method Diaper Diaper Diaper # Voids 1 ABP, PAP, CO, CI - Last Documented Arterial Blood Pressure 116/42 - Exam GENERAL EXAM: Alert, 72-year-old male, up in a chair, on room air, comfortable in no apparent distress. HEAD: Normocephalic. EYES: Normal reaction of pupils, equal size. NOSE: Clear with pink turbinates. THROAT: No erythema or exudates. NECK: No masses, no JVD. CHEST: No chest wall deformity. LUNGS: Equal air entry with no crackles, wheeze, rhonchi or dullness. CVS: S1 and S2 normal with no audible murmur, regular rhythm. ABDOMEN: No hepatosplenomegaly, normal bowel sounds, no guarding or rigidity. SPINE: No scoliosis or deformity SKIN: No rashes CENTRAL NERVOUS SYSTEM: No focal deficits, tone is normal in all 4 extremities. EXTREMITIES: Right groin incision clean dry well approximated. No active bleeding. Left groin site without hematoma or active bleeding. Some ecchymosis. Doppler pulses. - Labs CBC & Chem 7: 08/27/22 07:19 08/26/22 08:38 Labs: Abnormal Lab Results - Last 24 Hours (Table) 08/23/22 08/26/22 08/27/22 Range/Units 18:20 16:29 07:19 RBC 3.21 L 2.92 L (4.30-5.90) m/uL Hgb 9.1 L 8.2 L (13.0-17.5) gm/dL Hct 28.0 L 25.3 L (39.0-53.0) % Plt Count 113 L 113 L (150-450) k/uL Crossmatch See Detail Assessment and Plan Assessment: Abdominal aortic aneurysm large in size, measuring 7 cm, patient is status post percutaneous endovascular aortic repair, bilateral external iliac and common iliac artery angioplasty. And right groin cutdown with femoral artery.. Bilateral iliofemoral angiogram. Postoperative day #3. Received 1 unit of packed red blood cells. Hemoglobin 8.2 today. History of ischemic cardiomyopathy and LV dysfunction, ejection fraction of 25% History of underlying coronary artery disease previous CABG and stent placement History of AICD placement Dyslipidemia Hypothyroidism History of underlying COPD, presently inactive Plan: The patient was seen and evaluated Stable and on room air We will see as needed I have personally seen and examined the patient, performed the documentation and the assessment and plan as written. Number of minutes spent on the visit: 10.
--- NOTE | 2022-08-27 16:16 | CDI ---
Documentation Clarification Form Date: 08/27/2022 From: Kayleigh Nix RN, CCDS Admit Date: 08/23/2022 8:45:00 PM Patient Name: Magaly Morales Visit Number: [id number] Discharge Date: ATTENTION: The Clinical Documentation Specialists (CDI) and [facility] Coding Staff appreciate your assistance in clarifying documentation. Please respond to the clarification below the line at the bottom and electronically sign. The CDI & [facility] Coding staff will review the response and follow-up if needed. Please note: Queries are made part of the Legal Health Record. If you have any questions, please contact the author of this message via ITS. Dr. Dagoberto Cook Acute blood loss anemia is documented in the progress notes on 08/26/2022 and patient had Percutaneous Endovascular aortic repair with Sunshine device. Additional clarification is requested regarding the relationship, if any, that exists between the diagnosis and the procedure. Patients Admitting Diagnosis: Asymptomatic Infrarenal 7 cm AAA Post-Operative Diagnosis: Same Procedure performed: Percutaneous Endovascular aortic repair with Sunshine device. Ultrasound-guided bilateral common femoral artery access. Bilateral external iliac and common iliac artery angioplasty, Right common femoral artery endarterectomy with patch angioplasty. Bilateral iliofemoral angiogram History/Risk Factors: AAA, Coronary artery disease, Heart failure Hypertension, Seizure Clinical Indicators: 72-year-old male present to ER secondary to abdominal and back pain. He underwent workup and evaluation with CT angiogram with demonstrated a large 7 cm AAA. He was taken to surgery on 08/24/2022. 08/26/22 Progress note: Left groin access site with no active bleeding or hematoma noted some surrounding ecchymosis noted. Acute blood loss anemia 08/23/22 HGB 11.4 HCT 36.3 08/25/22 HGB 9.5 HCT 30.3 08/25/22 HGB 8.0 HCT 26.0 Treatment: Monitor CBC per orders Transfuse 1 unit PRBC What relationship, if any, exists between the diagnosis of acute blood loss anemia and the procedure: [ ] Acute blood loss anemia is a complication of surgical procedure. [ ] Acute blood loss anemia is an expected outcome of the surgical procedure. [ ] Acute blood loss anemia is related to patients co-morbid condition(s) of [insert co-morbid dxs] & not a complication of the procedure. [ ] Other please specify ____ [ x] Unable to determine (Template Last Revised: October 2020) MTDD
--- NOTE | 2022-08-27 19:31 | PN ---
PROGRESS NOTE SUBJECTIVE: Remains in the hospital after aneurysm repair, appears to be stable. Breathing better at this time. Status post right common femoral artery endarterectomy, patch angioplasty, percutaneous endovascular aortic repair with alternative device after right groin cutdown, femoral artery repair. We gave 1 unit of blood yesterday. Hemoglobin is 9.2. Today is 8.2. He has no any active bleeding. He is on his ischemic cardiomyopathy medications, which he has not been taking at home. He also wears oxygen at home, which he has not been wearing. OBJECTIVE: VITAL SIGNS: Temperature 98, pulse 73, respiratory rate 16 to 18, blood pressure 105/70, O2 of 96%. CARDIOVASCULAR: S1, S2. LUNGS: Clear. GI: Soft. HEMATOLOGY: Negative Homans. PSYCH: Fair mood and affect. ASSESSMENT: Abdominal aortic aneurysm, status post percutaneous endovascular aortic repair with alternative device, bilateral external iliac and common iliac angioplasty with right groin cutdown, acute blood loss anemia, abdominal pain, resolved ischemic cardiomyopathy, coronary artery disease, chronic obstructive pulmonary disease, hypertension, nocturnal oxygen dependent. Prognosis is guarded. Hypothyroidism, nicotine addiction. Continue current treatment. Compliance with medications will be needed as he has not been taking his medications as outpatient. Continue postop repair. MMODL / IJN: [id number] /
[2022-08-27] MEDS: SENNOSIDES-DOCUSATE SODIUM 1 EACH TAB PO SCH (21:13)
[2022-08-27] MEDS: ATORVASTATIN 40 MG TAB PO SCH (21:13)
[2022-08-27] MEDS: traZODone HCL 50 MG TAB PO SCH (21:14)
[2022-08-27] MEDS: MELATONIN 3 MG TABLET PO SCH (21:14)
[2022-08-28] MEDS: HYDROmorphone 0.5 MG/0.5 ML SYRINGE IVP PRN ×2 (03:32→08:50)
[2022-08-28] MEDS: carvediloL 3.125 MG TAB PO SCH ×2 (06:44→16:47)
[2022-08-28] MEDS: LEVOTHYROXINE 100 MCG TAB PO SCH (06:46)
[2022-08-28] MEDS: NICOTINE 21MG/24HR PATCH TRANSDERM SCH (08:50)
[2022-08-28] MEDS: ASPIRIN 81 MG PO SCH (08:50)
[2022-08-28] MEDS: ESCITALOPRAM 20 MG TAB PO SCH (08:50)
[2022-08-28] MEDS: CYANOCOBALAMIN 500 MCG TAB PO SCH (08:50)
[2022-08-28] MEDS: FAMOTIDINE 20 MG TAB PO SCH ×2 (08:50→20:38)
[2022-08-28] MEDS: SUCRALFATE 1 GM TAB PO SCH ×2 (08:50→20:39)
[2022-08-28] MEDS: lisinopriL 5 MG TAB PO SCH (08:50)
[2022-08-28] MEDS: SODIUM CHLORIDE 0.9% 1,000 ML IV SCH ×2 (08:51→22:56)
--- NOTE | 2022-08-28 09:25 | P.PN ---
Subjective Progress Note Date: 08/28/22 Patient is evaluated today in follow-up care. Indicates his pain is well controlled. We await a.m. labs. Objective - Vital Signs Vital signs: Vital Signs Temp 98.3 F 08/28/22 03:30 Pulse 53 L 08/28/22 06:43 Resp 16 08/28/22 03:30 BP 106/56 08/28/22 06:43 Pulse Ox 97 08/28/22 03:30 FiO2 Intake & Output 08/27/22 08/28/22 08/28/22 18:59 06:59 18:59 Intake Total 240 Output Total 200 200 Balance 40 -200 Intake: Oral 240 Output: Urine 200 200 Other: Voiding Method Diaper Urinal Diaper # Voids 1 ABP, PAP, CO, CI - Last Documented Arterial Blood Pressure 116/42 - Exam Patient is awake alert, cooperative in no apparent distress. Surgical wounds clean, dry and healing normally. There is no sign or symptom of infection. - Labs CBC & Chem 7: 08/27/22 07:19 08/26/22 08:38 Assessment and Plan Assessment: #1: Status post stent graft repair abdominal aortic aneurysm. #2: Anemia. Plan: Patient is surgically stable. If this morning's hemoglobin is stable patient can be discharged from a surgical standpoint. Time with Patient: Less than 30
[2022-08-28 09:31] LABS: HGB 8.5 gm/dL (13.0-17.5); Hypochromasia Slight; MCH 28.1 pg (25.0-35.0); MCHC 31.5 g/dL (31.0-37.0); Mean Platelet Volume 9.2; Platelet Count 137 k/uL (150-450); RBC 3.04 m/uL (4.30-5.90); RDW 15.3 % (11.5-15.5); WBC 5.6 k/uL (3.8-10.6)
--- NOTE | 2022-08-28 12:11 | P.PN ---
Subjective Progress Note Date: 08/28/22 Patient seen doing well resting comfortably in bed in no signs of acute distress. Denies increased shortness of breath chest pain or chest pressure. Blood pressure remained stable at 106/56. Hemoglobin has slightly improved today 3.5. Objective - Vital Signs Vital signs: Vital Signs Temp 98.5 F 08/28/22 08:45 Pulse 62 08/28/22 08:45 Resp 17 08/28/22 08:45 BP 114/62 08/28/22 08:45 Pulse Ox 98 08/28/22 08:45 FiO2 Intake & Output 08/27/22 08/28/22 08/28/22 18:59 06:59 18:59 Intake Total 240 Output Total 200 200 Balance 40 -200 Intake: Oral 240 Output: Urine 200 200 Other: Voiding Method Diaper Urinal Urinal Diaper Diaper # Voids 1 ABP, PAP, CO, CI - Last Documented Arterial Blood Pressure 116/42 - Exam PHYSICAL EXAM: VITAL SIGNS: Reviewed. GENERAL: Well-developed in no acute distress. HEENT: Head is normocephalic. Pupils are equal, round. Sclerae anicteric. Mucous membranes of the mouth are moist. NECK: Supple. No JVD or thyromegaly RESPIRATORY: Respirations even and unlabored. Lungs diminished to auscultation bilaterally. CARDIO: Regular rate and rhythm. S1 and S2 heard. No murmur or gallops. EXTREMITIES: Normal range of motion. No clubbing or cyanosis. Peripheral pulses intact. Negative for bilateral lower extremity edema NEURO: Orientated to person, time, mood is appropriate - Labs CBC & Chem 7: 08/28/22 09:00 08/26/22 08:38 Labs: Abnormal Lab Results - Last 24 Hours (Table) 08/28/22 Range/Units 09:00 RBC 3.04 L (4.30-5.90) m/uL Hgb 8.5 L (13.0-17.5) gm/dL Hct 27.0 L (39.0-53.0) % Plt Count 137 L (150-450) k/uL Assessment and Plan Assessment: Abdominal pain Abdominal aortic aneurysm, measuring 7 cm Coronary artery disease with previous CABG x 4 vessel, 1995 Ischemic cardiomyopathy, EF 25% History of AICD implantation Hypertension Hyperlipidemia COPD Hypothyroidism Nicotine dependence Plan: Continue current cardiac medications Continue to monitor blood pressure and continue telemetry monitoring Patient is stable for discharge home today from a cardiac standpoint Further recommendations pending patient course Nurse practitioner note has been reviewed by physician. Signing provider agrees with the documented findings, assessment, and plan of care.
[2022-08-28] MEDS: traMADol 50 MG TAB PO PRN ×2 (16:47→22:59)
[2022-08-28] MEDS: ATORVASTATIN 40 MG TAB PO SCH (20:39)
[2022-08-28] MEDS: SENNOSIDES-DOCUSATE SODIUM 1 EACH TAB PO SCH (20:39)
[2022-08-28] MEDS: traZODone HCL 50 MG TAB PO SCH (20:39)
[2022-08-28] MEDS: MELATONIN 3 MG TABLET PO SCH (20:39)
[2022-08-29] MEDS: LEVOTHYROXINE 100 MCG TAB PO SCH (06:43)
[2022-08-29] MEDS: carvediloL 3.125 MG TAB PO SCH ×2 (06:43→16:32)
[2022-08-29] MEDS: NICOTINE 21MG/24HR PATCH TRANSDERM SCH (07:56)
[2022-08-29] MEDS: ESCITALOPRAM 20 MG TAB PO SCH (07:57)
[2022-08-29] MEDS: CYANOCOBALAMIN 500 MCG TAB PO SCH (07:57)
[2022-08-29] MEDS: SUCRALFATE 1 GM TAB PO SCH (07:57)
[2022-08-29] MEDS: ASPIRIN 81 MG PO SCH (07:57)
[2022-08-29] MEDS: lisinopriL 5 MG TAB PO SCH (07:57)
[2022-08-29] MEDS: FAMOTIDINE 20 MG TAB PO SCH (07:57)
[2022-08-29 08:09] VITALS: RESP 16
[2022-08-29] MEDS: SODIUM CHLORIDE 0.9% 1,000 ML IV SCH (11:38)
[2022-08-29] MEDS: traMADol 50 MG TAB PO PRN (11:44)
--- NOTE | 2022-08-29 12:42 | P.PN ---
Subjective Progress Note Date: 08/29/22 Patient seen doing well resting comfortably in bed in no signs of acute distress. Denies increased shortness of breath chest pain or chest pressure. Blood pressure remained stable. Patient remains sinus rhythm with a controlled ventricle rate in the high 50s low 60s. Will continue with current cardiac meds at this time Objective - Vital Signs Vital signs: Vital Signs Temp 97.8 F 08/29/22 12:20 Pulse 50 L 08/29/22 12:20 Resp 16 08/29/22 12:20 BP 141/69 08/29/22 12:20 Pulse Ox 96 08/29/22 12:20 FiO2 Intake & Output 08/28/22 08/29/22 08/29/22 18:59 06:59 18:59 Intake Total 240 Output Total 400 Balance 240 -400 Intake: Oral 240 Output: Urine 400 Other: Voiding Method Urinal Urinal Urinal Diaper Diaper Diaper # Voids 1 1 ABP, PAP, CO, CI - Last Documented Arterial Blood Pressure 116/42 - Exam PHYSICAL EXAM: VITAL SIGNS: Reviewed. GENERAL: Well-developed in no acute distress. HEENT: Head is normocephalic. Pupils are equal, round. Sclerae anicteric. Mucous membranes of the mouth are moist. NECK: Supple. No JVD or thyromegaly RESPIRATORY: Respirations even and unlabored. Lungs diminished to auscultation bilaterally. CARDIO: Regular rate and rhythm. S1 and S2 heard. No murmur or gallops. EXTREMITIES: Normal range of motion. No clubbing or cyanosis. Peripheral pulses intact. Negative for bilateral lower extremity edema NEURO: Orientated to person, time, mood is appropriate - Labs CBC & Chem 7: 08/28/22 09:00 08/26/22 08:38 Assessment and Plan Assessment: Abdominal pain Abdominal aortic aneurysm, measuring 7 cm Coronary artery disease with previous CABG x 4 vessel, 1995 Ischemic cardiomyopathy, EF 25% History of AICD implantation Hypertension Hyperlipidemia COPD Hypothyroidism Nicotine dependence Plan: Continue current cardiac medications Continue to monitor blood pressure and continue telemetry monitoring Further recommendations pending patient course Nurse practitioner note has been reviewed by physician. Signing provider agrees with the documented findings, assessment, and plan of care.
[2022-08-29 17:38] VITALS: BP 160/83; PULSE 62; TEMP 98.2
--- NOTE | 2022-08-30 03:01 | PN ---
PROGRESS NOTE DATE OF SERVICE: 08/28/2022 SUBJECTIVE: Status post AAA repair. His blood pressure is stable, medications stable. out of his room, nurses looking into that. try to get all his medications for 3 months as he does not follow up regularly as an outpatient. He ran out of all his medications. He also is noncompliant with his oxygen. Discussed with him wearing oxygen at home also. OBJECTIVE: CARDIOVASCULAR: S1, S2. LUNGS: Decreased breath sounds x4. HEMATOLOGY: Negative for Homans. PSYCH: Fair mood and affect. ASSESSMENT: Status post abdominal aortic aneurysm repair per vascular surgeon, ischemic cardiomyopathy, chronic obstructive pulmonary disease, nicotine addiction. Prognosis guarded. Continue current treatments. Follow up as an outpatient. Medicines discussed with him. MMODL / IJN: [id number] /
== END 2022-08-29 17:21 | disposition home or self-care (01) | DRG 269 ==
LOC: EC 17:56 → 3SCARD 20:45 → 2SICU 08-24 20:42 → 3SCARD 08-25 20:24
PROVIDERS: ADMIT Family Medicine; ATTEND Family Medicine
PROC: 04CK0ZZ Extirpation of Matter from Right Femoral Artery, Open Approach (ICD-10-PCS; 2022-08-24)
PROC: B41F1ZZ Fluoroscopy of Right Lower Extremity Arteries using Low Osmolar Contrast (ICD-10-PCS; 2022-08-24)
PROC: B41G1ZZ Fluoroscopy of Left Lower Extremity Arteries using Low Osmolar Contrast (ICD-10-PCS; 2022-08-24)
PROC: 04V03DZ Restriction of Abdominal Aorta with Intraluminal Device, Percutaneous Approach (ICD-10-PCS; principal; 2022-08-24 09:55)
PROC: 04UK0JZ Supplement Right Femoral Artery with Synthetic Substitute, Open Approach (ICD-10-PCS; 2022-08-24 09:55)
PROC: 30233N1 Transfusion of Nonautologous Red Blood Cells into Peripheral Vein, Percutaneous Approach (ICD-10-PCS; 2022-08-26)
DX: I71.40 Abdominal aortic aneurysm, without rupture, unspecified (principal); D62 Acute posthemorrhagic anemia; I27.20 Pulmonary hypertension, unspecified; Z95.1 Presence of aortocoronary bypass graft; F03.90 Unspecified dementia, unspecified severity, without behavioral disturbance, psychotic disturbance, mood disturbance, and anxiety; I50.9 Heart failure, unspecified; I11.0 Hypertensive heart disease with heart failure; J44.9 Chronic obstructive pulmonary disease, unspecified; Z99.81 Dependence on supplemental oxygen; G40.909 Epilepsy, unspecified, not intractable, without status epilepticus; E03.9 Hypothyroidism, unspecified; I08.3 Combined rheumatic disorders of mitral, aortic and tricuspid valves; I48.91 Unspecified atrial fibrillation; I25.5 Ischemic cardiomyopathy; I25.10 Atherosclerotic heart disease of native coronary artery without angina pectoris; G89.29 Other chronic pain; E78.5 Hyperlipidemia, unspecified; R01.1 Cardiac murmur, unspecified; F17.210 Nicotine dependence, cigarettes, uncomplicated; G62.9 Polyneuropathy, unspecified; K59.00 Constipation, unspecified; T50.996A Underdosing of other drugs, medicaments and biological substances, initial encounter; T41.5X6A Underdosing of therapeutic gases, initial encounter; Z91.14 Patient's other noncompliance with medication regimen; Z28.310 Unvaccinated for COVID-19; Z79.899 Other long term (current) drug therapy; Z79.82 Long term (current) use of aspirin; Z79.51 Long term (current) use of inhaled steroids; Z88.5 Allergy status to narcotic agent; Z88.0 Allergy status to penicillin; Z88.7 Allergy status to serum and vaccine; Z95.810 Presence of automatic (implantable) cardiac defibrillator; Z95.5 Presence of coronary angioplasty implant and graft; Z79.890 Hormone replacement therapy
CPT/HCPCS: 34705; 36415; 74177; 80048; 80053; 82150; 83605; 83690; 85025; 85027; 85610; 85730; 86850; 86900; 86901; 86920; 93306; 94760; 96360; 96361; 99285

== ENCOUNTER 2022-08-31 00:22 | Inpatient (IN) | payer MEDICARE, OTHER ==
[2022-08-31] MEDS ORDERED: methylPREDNISolone SOD SUCCI 125 MG/2 ML VIAL IV STA (00:24)
[2022-08-31] MEDS ORDERED: IPRATROPIUM-ALBUTEROL 3 ML NEB INHALATION STA (00:24)
[2022-08-31] MEDS ORDERED: LORazepam 2 MG/ML INJ IV STA (00:25)
[2022-08-31 00:51] LABS: Basophils # (A) 0.1 k/uL (0-0.2); Basophils % (A) 1 %; Eosinophils # (A) 0.1 k/uL (0-0.7); Eosinophils % (A) 1 %; HCT 36.5 % (39.0-53.0); Hypochromasia Slight; Lymphocytes # (A) 4.8 k/uL (1.0-4.8); Lymphocytes % (A) 49 %; MCH 27.5 pg (25.0-35.0); MCHC 31.9 g/dL (31.0-37.0); MCV 86.3 fL (80.0-100.0); Mean Platelet Volume 9.5; Monocytes # (A) 0.7 k/uL (0-1.0); Monocytes % (A) 7 %; Neutrophils % (A) 40 %; Platelet Count 263 k/uL (150-450); RBC 4.23 m/uL (4.30-5.90); RDW 15.3 % (11.5-15.5); WBC 9.8 k/uL (3.8-10.6)
[2022-08-31 00:53] LABS: HGB 11.7 gm/dL (13.0-17.5)
[2022-08-31 00:56] LABS: INR 1.3 (<1.2); Partial Thromboplastin Time 23.6 sec (22.0-30.0)
[2022-08-31 01:10] LABS: Albumin 3.3 g/dL (3.5-5.0); Calcium 8.6 mg/dL (8.4-10.2); Magnesium 1.7 mg/dL (1.6-2.3); Potassium 3.8 mmol/L (3.5-5.1); Total Bilirubin 0.7 mg/dL (0.2-1.3); Total Protein 6.3 g/dL (6.3-8.2)
--- NOTE | 2022-08-31 02:00 | CT ---
EXAMINATION TYPE: CT angio thor/abd pel aorta DATE OF EXAM: 08/31/2022 COMPARISON: 08/23/2022 HISTORY: dypsnea, recent stent surgery, h/o cabg. PE & aorta requested to be seen by ER dr. mancia sca n done to obtain aorta w/ contrast CT DLP: 1613.7 mGycm Automated exposure control for dose reduction was used. CONTRAST: Performed with IV Contrast, patient injected with 100ml mL of Isovue 370. Images obtained from the thoracic inlet to the floor of the pelvis without and subsequently with IV c ontrast. There are Three-D postprocessed images. There are bilateral moderate pleural effusions. There is normal contrast opacification of the pulmona ry arteries. No filling defect. There is bilateral infiltrate and atelectasis in the posterior lung f ields. Heart is enlarged. There is fusiform aneurysm of the abdominal aorta with aortic stent graft. Aneurysm measures up to 7 cm in diameter. The length is 9 cm. Graft appears in good position. Liver appears intact. There are calcified splenic granulomata. No pancreatic mass. The stomach is int act. There is bilateral perinephric edema. There is retroperitoneal edema. There is small amount of a ir in the urinary bladder. No evidence of a bowel obstruction. No evidence of pneumoperitoneum. There is normal contrast opacification of the aortic endograft. No evidence of aortic dissection. The re is plaque formation in the common iliac arteries. No evidence of contrast extravasation. The thoracic and lumbar vertebra. Intact. There are sternal wires. The bony pelvis is intact. The hip joints are intact. IMPRESSION: There is large aneurysm of the abdominal aorta without change in size. Endograft is in good position and normal contrast opacification of the endograft. No evidence of a leak. No evidence of pulmonary embolism. There are moderate bilateral pleural effusions and basilar pulmonary infiltrates which are new compar ed to old exam and could be chronic congestive heart failure. There is bilateral perinephric edema and fat stranding without change. There is moderate sigmoid diverticulosis without definite diverticulitis.
--- NOTE | 2022-08-31 02:05 | XR ---
EXAMINATION TYPE: XR chest 1V DATE OF EXAM: 08/31/2022 COMPARISON: 03/06/2022 HISTORY: Short of breath TECHNIQUE: Single view FINDINGS: Heart is enlarged. There is pulmonary airspace and interstitial edema. There are sternal wi res. There is right axillary pacemaker. There is slight blunting of the right costo phrenic angle. IMPRESSION: Pulmonary edema and minimal pleural fluid with cardiomegaly. There is congestive heart fa ilure which is worse than last exam.
[2022-08-31] MEDS ORDERED: FUROSEMIDE 10 MG/ML 4 ML VIAL IV STA (02:17)
[2022-08-31] MEDS ORDERED: methylPREDNISolone SOD SUCCI 40 MG/ML 1 ML VIAL IV SCH (02:30)
[2022-08-31] MEDS ORDERED: IPRATROPIUM-ALBUTEROL 3 ML NEB INHALATION PRN (02:49)
[2022-08-31 02:57] LABS: VBG PH 7.37 (7.31-7.41)
--- NOTE | 2022-08-31 03:11 | ED ---
General Adult HPI - General Chief complaint: Shortness of Breath Stated complaint: JONY Time Seen by Provider: 08/31/22 00:24 Source: patient, EMS, RN notes reviewed, old records reviewed Mode of arrival: EMS Limitations: no limitations - History of Present Illness Initial comments: Patient is a 72-year-old male with past medical history remarkable for dementia, hypertension, CHF, COPD, who presents emergency Department complaining of slowly worsening shortness of breath since discharge from the hospital a few days ago. Was recently discharged on the , 2 days ago following a stay for a AAA repair. Course was unremarkable while he was here. States he went home and since he went home has been having worsening shortness of breath. Denies cough. Endorses a chest tightness sensation. Denies abdominal pain, nausea, vomiting. Denies any fevers, sick contacts. States he is supposed to be on oxygen at home but does not use it. States he does not have it. Denies any abdominal pain, nausea, vomiting, diarrhea. Dies any abdominal distention. Denies any lower extremity weakness or numbness. Denies any bleeding. Presents for further evaluation of a concern for shortness of breath. Patient was placed in trauma bay 1 upon arrival.States he feels anxious. Does have a history of anxiety.Patient presents after being placed on CPAP in the field by EMS. - Related Data Home Medications Medication Instructions Recorded Confirmed Acetaminophen Tab [Tylenol] 1,000 mg PO Q4H PRN 08/23/22 08/23/22 Cyanocobalamin (Vitamin B-12) 1,000 mcg PO DAILY 08/23/22 08/23/22 [Vitamin B-12] Melatonin 6 mg PO HS 08/23/22 08/23/22 Sennosides/Docusate Sodium [Senna 2 tab PO HS 08/23/22 08/23/22 Plus 8.6-50 mg Tablet] Sucralfate [Carafate] 1 gm PO BID 08/23/22 08/23/22 Previous Rx's Medication Instructions Recorded Aspirin 81 mg PO DAILY 90 Days #90 tab 08/29/22 Atorvastatin [Lipitor] 40 mg PO HS 90 Days #90 tab 08/29/22 Escitalopram [Lexapro] 20 mg PO DAILY 90 Days #90 tab 08/29/22 Famotidine [Pepcid] 20 mg PO BID 90 Days #180 tab 08/29/22 Levothyroxine Sodium [Synthroid] 100 mcg PO DAILY@0630 90 Days #90 08/29/22 tab Nicotine 21Mg/24Hr Patch [Habitrol] 1 patch TRANSDERM DAILY 90 Days 08/29/22 #90 patch carvediloL [Coreg] 3.125 mg PO BID-W/MEALS 90 Days 08/29/22 #180 tab lisinopriL [Zestril] 5 mg PO DAILY 90 Days #90 tab 08/29/22 traZODone HCL [Desyrel] 50 mg PO HS 30 Days #30 tab 08/29/22 Allergies Allergy/AdvReac Type Severity Reaction Status Date / Time morphine Allergy Anaphylaxis Verified 08/23/22 21:04 Penicillins Allergy Swelling Verified 08/23/22 21:04 on entire body Influenza Virus Vaccines AdvReac Unknown Verified 08/23/22 21:04 pneumococcal vaccine AdvReac Unknown Verified 08/23/22 21:04 Review of Systems ROS Statement: Those systems with pertinent positive or pertinent negative responses have been documented in the HPI. Review of Systems: CONST: Denies fever EYES: Denies blurry vision ENT: Denies nasal congestion C/V: Denies Chest pain RESP: Endorses shortness of breath GI: Denies abdominal pain : Denies dysuria SKIN: Denies rash. MSK: Denies joint pain. NEURO: Denies headache ROS Other: All systems not noted in ROS Statement are negative. Past Medical History Past Medical History: Coronary Artery Disease (CAD), Heart Failure, Dementia, Hyperlipidemia, Hypertension, Seizure Disorder, Syncope, Thyroid Disorder Additional Past Medical History / Comment(s): Ischemic cardiomyopathy, EF 20- 25%, last seizure about 2 yrs ago, hypothyroid.neuropathy "WHEN HE WORKED HE HAD A CRUSHING INJURY -COLLAPSED LUNGS C/T AND HAS CHRONIC BACK PAIN"" pt states he is schizophrenic/bipolar. History of Any Multi-Drug Resistant Organisms: None Reported Past Surgical History: AICD, Back Surgery, Coronary Bypass/CABG, Heart Catheterization, Heart Catheterization With Stent Additional Past Surgical History / Comment(s): 1995 CABG 4 vessel in [place], has had 2"HEART CATHS/had 2 STENTS after cabg sx.pt stated they were done in [facility]. "sx on tailbone, cortisone injections, devin inguinal hernia repair Past Anesthesia/Blood Transfusion Reactions: No Reported Reaction Date of Last Stent Placement:: 1995 Type of Cardiac Device: AICD Device Placement Date:: 1995 in [facility] Past Psychological History: Anxiety, Depression, Schizoaffective Disorder, Schizophrenia Smoking Status: Current every day smoker - Past Family History Mother Family Medical History: Respiratory Disorder Additional Family Medical History / Comment(s): Mother had TB Father Additional Family Medical History / Comment(s): Father was an alcoholic. General Exam - General Exam Comments Initial Comments: General: Appears in mild respiratory distress. HEAD: Normal with no signs of head trauma. EYES: PERRLA, EOMI, conjunctiva normal, no discharge. ENT: Hearing grossly intact, normal oropharynx. RESPIRATORY: Bilateral end expiratory wheezing. Reduced breath sounds bilaterally as well. Increased work of breathing. On CPAP. C/V: Tachycardic with a regular rhythm. S1 and S2 auscultated. Peripheral pulses 2+ intact throughout. No peripheral edema. ABD: Abd is soft, nontender, nondistended. No guarding. No peritoneal signs. No rebound tenderness. EXT: Normal range of motion, no obvious deformity SKIN: No rashes or lesions observed on exposed skin. NEURO: Alert and oriented 4. No focal sensory strength deficits. Limitations: no limitations Course Vital Signs 08/31/22 08/31/22 08/31/22 00:23 00:30 00:33 Pulse Rate 128 H 82 Respiratory 26 H Rate Blood Pressure O2 Sat by Pulse 100 Oximetry Fraction of 75 Inspired Oxygen (FIO2) 08/31/22 08/31/22 08/31/22 00:43 00:50 01:11 Pulse Rate 74 56 L Respiratory 22 Rate Blood Pressure 115/67 O2 Sat by Pulse 99 Oximetry Fraction of 50 Inspired Oxygen (FIO2) 08/31/22 02:00 Pulse Rate 53 L Respiratory 18 Rate Blood Pressure 123/63 O2 Sat by Pulse Oximetry Fraction of Inspired Oxygen (FIO2) Medical Decision Making - Medical Decision Making Based on the patient's presentation and physical exam, I'm concerned for cardiopulmonary etiology for his current symptoms. With the recent surgery, as well as AAA repair, I cannot rule out aortic catastrophe versus possible pulmona ry embolism at this time either. I did discuss this with the patient, as I do suspect this is likely CHF versus COPD but cannot rule out further etiology. We will obtain CT imaging of the aorta as well as chest rule out PE. We'll also obtain cardio pulmonary laboratory studies. He was in agreement this plan. Does appear to be anxious and will be given IV Ativan in addition to breathing treatment's as well as IV steroids. He was transitioned to BiPAP immediately upon arrival with respiratory therapy's assistance. EKG showed no signs of acute ischemia. Chest x-ray revealed findings concerning for pulmonary vascular congestion worsening heart failure. Patient's CT angiogram of the thorax, abdomen, pelvis revealed no evidence of PE. Patient's AAA graft appears within normal limits. Radiology did concur with this and states that it had normal filling with no signs of endovascular leak. Patient also has bilateral pleural effusions. Patient had a recent echo which revealed an EF of 45%. Patient's laboratory studies are remarkable for a hemoglobin of 11.7. Initial lactic acid is 6.8, however I strongly suspect that this is related to improper lab draw as the remainder of laboratory studies and imaging are within acceptable limits. Repeat lactic acid is obtained by nursing and was 1.6. Patient does have an elevated BNP of 6400. Patient's troponin is indeterminate at 0.019. Patient is Covid, flu, RSV negative. Remainder the labs are within acceptable limits. On reevaluation I discussed with the patient his workup. He is feeling improved on BiPAP and we're able to wean him off the BiPAP to 6 L nasal cannula. I do believe there was a large anxiety component to the patient's shortness of breath, and we will continue to wean the patient from the initial BiPAP that he was placed on. I believe he is likely experiencing intense from a CHF exacerbation as well as COPD exacerbation. Wheezing is improved at this time. Patient was in agreement with this. We will admit him to the hospital for further management. As the patient had a recent AAA repair, vascular surgery was consulted to evaluate the patient. Cardiology was also consulted to evaluate the patient for possible CHF exacerbation. Recent echo was obtained and therefore we will not repeat an echo. I spoke with the admitting physician, Dr. Verdin who accepted the patient. Patient was admitted in stable condition. Was pt. sent in by a medical professional or institution (, PA, HARVEST CREW SUPERVISOR, urgent care, hospital, or care home...) When possible be specific @ -No Did you speak to anyone other than the patient for history (EMS, parent, family, police, friend...)? What history was obtained from this source @ -No Did you review nursing and triage notes (agree or disagree)? Why? @ -I reviewed and agree with nursing and triage notes Were old charts reviewed (outside hosp., previous admission, EMS record, old EKG, old radiological studies, urgent care reports/EKG's, care home records)? Report findings @ -Yes, old EKG, charts were reviewed. Differential Diagnosis (chest pain, altered mental status, abdominal pain women, abdominal pain men, vaginal bleeding, weakness, fever, dyspnea, syncope, headache, dizziness, GI bleed, back pain, seizure, CVA, palpatations, mental health)? @ -Differential Dyspnea: Coronary syndrome, arrhythmia, tamponade, asthma, COPD, pulmonary embolism, pneumonia, pneumothorax, pulmonary effusion, anaphylaxis, diabetic ketoacidosis, flailed chest, pulmonary contusion, diaphragmatic rupture, anemia, neuromuscular, AAA vascular leak status post AAA repair, aortic catastrophe this is not meant to be an all-inclusive list. EKG interpreted by me (3pts min.). @ -As above X-rays interpreted by me (1pt min.). @ -Chest x-ray revealed findings concerning for bilateral pulmonary edema and CHF. CT interpreted by me (1pt min.). @ -CT angiogram of the aorta and chest revealed no obvious PE. No obvious endovascular leak. No obvious aortic injury. U/S interpreted by me (1pt. min.). @ -None done What testing was considered but not performed or refused? (CT, X-rays, U/S, labs)? Why? @ -None What meds were considered but not given or refused? Why? @ -None Did you discuss the management of the patient with other professionals (professionals i.e. DrLoretta, PA, HARVEST CREW SUPERVISOR, lab, RT, psych nurse, clinical social work aide, multineedle shirrer, teacher, transportation security officer, pillowcase maker)? Give summary @ -Yes, the admitting physician Dr. Verdin who was in agreement with the plan. Was smoking cessation discussed for >3mins.? @ -No Was critical care preformed (if so, how long)? @ -No Were there social determinants of health that impacted care today? How? (Homelessness, low income, unemployed, alcoholism, drug addiction, transportation, low edu. Level, literacy, decrease access to med. care, residential, rehab)? @ -No Was there de-escalation of care discussed even if they declined (Discuss DNR or withdrawal of care, Hospice)? DNR status @ -No What co-morbidities impacted this encounter? (DM, HTN, Smoking, COPD, CAD, Cancer, CVA, ARF, Chemo, Hep., AIDS, mental health diagnosis, sleep apnea, morbid obesity)? @ -Recent AAA repair, CHF history, COPD history Was patient admitted / discharged? Hospital course, mention meds given and route, prescriptions, significant lab abnormalities, going to OR and other pertinent info. @ -Admitted to the hospital. See above for ED course. Undiagnosed new problem with uncertain prognosis? @ -No Drug Therapy requiring intensive monitoring for toxicity (Heparin, Nitro, Insulin, Cardizem)? @ -No Were any procedures done? @ -No Diagnosis/symptom? @ -COPD exacerbation Acute, or Chronic, or Acute on Chronic? @ -Acute on chronic Uncomplicated (without systemic symptoms) or Complicated (systemic symptoms)? @ -Complicated Side effects of treatment? @ -No Exacerbation, Progression, or Severe Exacerbation? @ -Exacerbation Poses a threat to life or bodily function? How? (Chest pain, [place], [place], pneumonia, PE, COPD, DKA, ARF, appy, cholecystitis, CVA, Diverticulitis, Homicidal, Suicidal, threat to staff... and all critical care pts) @ -Yes, if untreated can result in significant morbidity and mortality. Diagnosis/symptom? @ -CHF exacerbation Acute, or Chronic, or Acute on Chronic? @ -Acute on chronic Uncomplicated (without systemic symptoms) or Complicated (systemic symptoms)? @ -Complicated Side effects of treatment? @ -none Exacerbation, Progression, or Severe Exacerbation] @ -no Poses a threat to life or bodily function? @ -Yes, if untreated can result in significant morbidity and mortality. Diagnosis/symptom? @ -Anxiety Acute, or Chronic, or Acute on Chronic? @ -Acute Uncomplicated (without systemic symptoms) or Complicated (systemic symptoms)? @ -Complicated Side effects of treatment? @ -none Exacerbation, Progression, or Severe Exacerbation] @ -no Poses a threat to life or bodily function? @ -no Diagnosis/symptom? @ -History of AAA repair Acute, or Chronic, or Acute on Chronic? @ -Acute Uncomplicated (without systemic symptoms) or Complicated (systemic symptoms)? @ -Uncomplicated Side effects of treatment? @ -none Exacerbation, Progression, or Severe Exacerbation] @ -no Poses a threat to life or bodily function? @ -no - Lab Data Result diagrams: 08/31/22 00:32 08/31/22 00:32 Lab Results 08/31/22 08/31/22 08/31/22 Range/Units 00:32 00:32 00:32 WBC 9.8 (3.8-10.6) k/uL RBC 4.23 L (4.30-5.90) m/uL Hgb 11.7 L D (13.0-17.5) gm/dL Hct 36.5 L (39.0-53.0) % MCV 86.3 (80.0-100.0) fL MCH 27.5 (25.0-35.0) pg MCHC 31.9 (31.0-37.0) g/dL RDW 15.3 (11.5-15.5) % Plt Count 263 (150-450) k/uL MPV 9.5 Neutrophils % 40 % Lymphocytes % 49 % Monocytes % 7 % Eosinophils % 1 % Basophils % 1 % Neutrophils # 4.0 (1.3-7.7) k/uL Lymphocytes # 4.8 (1.0-4.8) k/uL Monocytes # 0.7 (0-1.0) k/uL Eosinophils # 0.1 (0-0.7) k/uL Basophils # 0.1 (0-0.2) k/uL Hypochromasia Slight PT 13.0 H (9.0-12.0) sec INR 1.3 H (<1.2) APTT 23.6 (22.0-30.0) sec VBG pH (7.31-7.41) VBG pCO2 (37-51) mmHg VBG HCO3 (24-28) mmol/L Sodium 141 (137-145) mmol/L Potassium 3.8 (3.5-5.1) mmol/L Chloride 106 (98-107) mmol/L Carbon Dioxide 23 (22-30) mmol/L Anion Gap 12 mmol/L BUN 12 (9-20) mg/dL Creatinine 1.08 (0.66-1.25) mg/dL Est GFR (CKD-EPI)AfAm 79 (>60 ml/min/1.73 sqM) Est GFR (CKD-EPI)NonAf 69 (>60 ml/min/1.73 sqM) Glucose 144 H (74-99) mg/dL Lactic Ac Sepsis Rflx Plasma Lactic Acid Rigoberot (0.7-2.0) mmol/L Calcium 8.6 (8.4-10.2) mg/dL Magnesium 1.7 (1.6-2.3) mg/dL Total Bilirubin 0.7 (0.2-1.3) mg/dL AST 29 (17-59) U/L ALT 17 (4-49) U/L Alkaline Phosphatase 71 (38-126) U/L Troponin I (0.000-0.034) ng/mL NT-Pro-B Natriuret Pep pg/mL Total Protein 6.3 (6.3-8.2) g/dL Albumin 3.3 L (3.5-5.0) g/dL Influenza Type A (PCR) (Not Detectd) Influenza Type B (PCR) (Not Detectd) RSV (PCR) (Not Detectd) SARS-CoV-2 (PCR) (Not Detectd) Blood Type Blood Type Recheck Bld Type Recheck Status Antibody Screen Spec Expiration Date 08/31/22 08/31/22 08/31/22 Range/Units 00:32 00:32 00:32 WBC (3.8-10.6) k/uL RBC (4.30-5.90) m/uL Hgb (13.0-17.5) gm/dL Hct (39.0-53.0) % MCV (80.0-100.0) fL MCH (25.0-35.0) pg MCHC (31.0-37.0) g/dL RDW (11.5-15.5) % Plt Count (150-450) k/uL MPV Neutrophils % % Lymphocytes % % Monocytes % % Eosinophils % % Basophils % % Neutrophils # (1.3-7.7) k/uL Lymphocytes # (1.0-4.8) k/uL Monocytes # (0-1.0) k/uL Eosinophils # (0-0.7) k/uL Basophils # (0-0.2) k/uL Hypochromasia PT (9.0-12.0) sec INR (<1.2) APTT (22.0-30.0) sec VBG pH (7.31-7.41) VBG pCO2 (37-51) mmHg VBG HCO3 (24-28) mmol/L Sodium (137-145) mmol/L Potassium (3.5-5.1) mmol/L Chloride (98-107) mmol/L Carbon Dioxide (22-30) mmol/L Anion Gap mmol/L BUN (9-20) mg/dL Creatinine (0.66-1.25) mg/dL Est GFR (CKD-EPI)AfAm (>60 ml/min/1.73 sqM) Est GFR (CKD-EPI)NonAf (>60 ml/min/1.73 sqM) Glucose (74-99) mg/dL Lactic Ac Sepsis Rflx Plasma Lactic Acid Rigoberto 6.8 H* (0.7-2.0) mmol/L Calcium (8.4-10.2) mg/dL Magnesium (1.6-2.3) mg/dL Total Bilirubin (0.2-1.3) mg/dL AST (17-59) U/L ALT (4-49) U/L Alkaline Phosphatase (38-126) U/L Troponin I 0.019 (0.000-0.034) ng/mL NT-Pro-B Natriuret Pep 6400 pg/mL Total Protein (6.3-8.2) g/dL Albumin (3.5-5.0) g/dL Influenza Type A (PCR) (Not Detectd) Influenza Type B (PCR) (Not Detectd) RSV (PCR) (Not Detectd) SARS-CoV-2 (PCR) (Not Detectd) Blood Type Blood Type Recheck Bld Type Recheck Status Antibody Screen Spec Expiration Date 08/31/22 08/31/22 08/31/22 Range/Units 00:32 00:36 01:23 WBC (3.8-10.6) k/uL RBC (4.30-5.90) m/uL Hgb (13.0-17.5) gm/dL Hct (39.0-53.0) % MCV (80.0-100.0) fL MCH (25.0-35.0) pg MCHC (31.0-37.0) g/dL RDW (11.5-15.5) % Plt Count (150-450) k/uL MPV Neutrophils % % Lymphocytes % % Monocytes % % Eosinophils % % Basophils % % Neutrophils # (1.3-7.7) k/uL Lymphocytes # (1.0-4.8) k/uL Monocytes # (0-1.0) k/uL Eosinophils # (0-0.7) k/uL Basophils # (0-0.2) k/uL Hypochromasia PT (9.0-12.0) sec INR (<1.2) APTT (22.0-30.0) sec VBG pH (7.31-7.41) VBG pCO2 (37-51) mmHg VBG HCO3 (24-28) mmol/L Sodium (137-145) mmol/L Potassium (3.5-5.1) mmol/L Chloride (98-107) mmol/L Carbon Dioxide (22-30) mmol/L Anion Gap mmol/L BUN (9-20) mg/dL Creatinine (0.66-1.25) mg/dL Est GFR (CKD-EPI)AfAm (>60 ml/min/1.73 sqM) Est GFR (CKD-EPI)NonAf (>60 ml/min/1.73 sqM) Glucose (74-99) mg/dL Lactic Ac Sepsis Rflx Y Plasma Lactic Acid Rigoberto (0.7-2.0) mmol/L Calcium (8.4-10.2) mg/dL Magnesium (1.6-2.3) mg/dL Total Bilirubin (0.2-1.3) mg/dL AST (17-59) U/L ALT (4-49) U/L Alkaline Phosphatase (38-126) U/L Troponin I (0.000-0.034) ng/mL NT-Pro-B Natriuret Pep pg/mL Total Protein (6.3-8.2) g/dL Albumin (3.5-5.0) g/dL Influenza Type A (PCR) Not Detected (Not Detectd) Influenza Type B (PCR) Not Detected (Not Detectd) RSV (PCR) Not Detected (Not Detectd) SARS-CoV-2 (PCR) Not Detected (Not Detectd) Blood Type A Positive Blood Type Recheck A Pos Bld Type Recheck Status No Antibody Screen NEGATIVE Spec Expiration Date 09/03/2022 - 233508/31/22 08/31/22 Range/Units 02:40 02:40 WBC (3.8-10.6) k/uL RBC (4.30-5.90) m/uL Hgb (13.0-17.5) gm/dL Hct (39.0-53.0) % MCV (80.0-100.0) fL MCH (25.0-35.0) pg MCHC (31.0-37.0) g/dL RDW (11.5-15.5) % Plt Count (150-450) k/uL MPV Neutrophils % % Lymphocytes % % Monocytes % % Eosinophils % % Basophils % % Neutrophils # (1.3-7.7) k/uL Lymphocytes # (1.0-4.8) k/uL Monocytes # (0-1.0) k/uL Eosinophils # (0-0.7) k/uL Basophils # (0-0.2) k/uL Hypochromasia PT (9.0-12.0) sec INR (<1.2) APTT (22.0-30.0) sec VBG pH 7.37 (7.31-7.41) VBG pCO2 43 (37-51) mmHg VBG HCO3 24 (24-28) mmol/L Sodium (137-145) mmol/L Potassium (3.5-5.1) mmol/L Chloride (98-107) mmol/L Carbon Dioxide (22-30) mmol/L Anion Gap mmol/L BUN (9-20) mg/dL Creatinine (0.66-1.25) mg/dL Est GFR (CKD-EPI)AfAm (>60 ml/min/1.73 sqM) Est GFR (CKD-EPI)NonAf (>60 ml/min/1.73 sqM) Glucose (74-99) mg/dL Lactic Ac Sepsis Rflx Plasma Lactic Acid Rigoberto 1.6 (0.7-2.0) mmol/L Calcium (8.4-10.2) mg/dL Magnesium (1.6-2.3) mg/dL Total Bilirubin (0.2-1.3) mg/dL AST (17-59) U/L ALT (4-49) U/L Alkaline Phosphatase (38-126) U/L Troponin I (0.000-0.034) ng/mL NT-Pro-B Natriuret Pep pg/mL Total Protein (6.3-8.2) g/dL Albumin (3.5-5.0) g/dL Influenza Type A (PCR) (Not Detectd) Influenza Type B (PCR) (Not Detectd) RSV (PCR) (Not Detectd) SARS-CoV-2 (PCR) (Not Detectd) Blood Type Blood Type Recheck Bld Type Recheck Status Antibody Screen Spec Expiration Date - EKG Data -: EKG Interpreted by Me EKG Comments: 12-lead Electrocardiogram Interpretation Note EKG was reviewed and interpreted by myself. 12-lead ECG performed at 0028 is interpreted by me as revealing normal sinus rhythm at a rate of 94 beats per minute. [place] is normal. VA interval is 116 ms, QRS duration is 107 ms, QTc is 412 ms.. There were no ST or T wave abnormalities to suggest myocardial ischemia or injury. R wave progression across the precordium was satisfactory. By my interpretation this EKG is non-diagnostic for acute ischemia. When compared with EKG from 08/23/2022, no significant change. Critical Care Time Critical Care Time: Yes Total Critical Care Time: 35 Critical Care Time: Upon my evaluation, this patient had a high probability of imminent or life- threatening deterioration due to COPD exacerbation, CHF exacerbation, BiPAP, recent AAA repair, which required my direct attention, intervention, and personal management. I have personally provided 35 minutes of critical care time exclusive of time spent on separately billable procedures. Time includes review of laboratory data, radiology results, discussion with consultants, and monitoring for potential decompensation. Interventions were performed as documented in my note. Disposition Clinical Impression: CHF exacerbation, COPD exacerbation, S/P AAA repair, Anxiety Disposition: ADMITTED IP TO THIS HOSP Condition: Stable Time of Disposition: 03:00
[2022-08-31] MEDS ORDERED: NALOXONE 0.4 MG/ML 1 ML VIAL IV PRN (03:20)
[2022-08-31] MEDS ORDERED: IPRATROPIUM-ALBUTEROL 3 ML NEB INHALATION SCH (04:00)
[2022-08-31] MEDS: LEVOTHYROXINE 100 MCG TAB PO SCH (06:13)
[2022-08-31] MEDS: carvediloL 3.125 MG TAB PO SCH ×2 (08:35→18:58)
[2022-08-31] MEDS: ESCITALOPRAM 20 MG TAB PO SCH (08:35)
[2022-08-31] MEDS: ASPIRIN 81 MG PO SCH (08:35)
[2022-08-31] MEDS: NICOTINE 21MG/24HR PATCH TRANSDERM SCH (08:36)
[2022-08-31] MEDS: FUROSEMIDE 10 MG/ML 4 ML VIAL IV SCH ×2 (08:36→20:51)
[2022-08-31] MEDS: methylPREDNISolone SOD SUCCI 40 MG/ML 1 ML VIAL IV SCH ×2 (08:36→20:51)
[2022-08-31] MEDS ORDERED: lisinopriL 5 MG TAB PO SCH (09:00)
--- NOTE | 2022-08-31 09:45 | P.GSCN ---
History of Present Illness Consult date: 08/31/22 Reason for Consult: Recent abdominal aortic aneurysm repair Requesting physician: Thuan Victor History of present illness: This is a pleasant 72-year-old male who certainly underwent or cutaneous endovascular abdominal aortic aneurysm repair for a 7 cm aneurysm along with a right groin cutdown femoral artery repair, right common femoral artery endarterectomy with patch angioplasty on 08/24/2022. He was discharged 2 days ago. His past medical history including ischemic cardiomyopathy, coronary artery disease status post CABG and cardiac stents, AICD implantation, heart failure, dementia, hyperlipidemia, hypertension seizure disorder, thyroid disorder and daily smoker. Patient presented back to the emergency department by EMS yesterday with complaints of shortness of breath and chest pain which he describes across his upper chest. The patient had a chest x-ray showing pulmonary edema minimal pleural fluid with cardiomegaly. Congestive heart failure which is worse than last exam. He also underwent CT angiogram thoracic abdomen and pelvis aorta which reported large aneurysm of the abdominal aorta without change in size. Endograft in good position in normal contrast opacification of the endograft with no evidence of a leak. No evidence of pulmonary embolism. There was moderate bilateral pleural effusion and basilar pulmonary infiltrates which are new compared to old exam could be chronic congestive heart failure. Bilateral perinephric edema and fat stranding without change. Moderate sigmoid diverticulosis without definite diverticulitis. The patient is admitted for COPD exacerbation and congestive heart failure. Vascular surgery was consulted due to patient's recent history of AAA repair. He currently has states his breathing is better, he is feeling better. He states he still has some chest tightness across his entire chest. Denies any fevers chills, abdominal pain, back pain, nausea or vomiting. States he's been voiding without difficulty as well as having bowel movements. Review of Systems A 14 point review systems was completed all pertinent positives and negatives as stated in the HPI. Past Medical History Past Medical History: Coronary Artery Disease (CAD), Heart Failure, Dementia, Hyperlipidemia, Hypertension, Seizure Disorder, Syncope, Thyroid Disorder Additional Past Medical History / Comment(s): Ischemic cardiomyopathy, EF 20-2 5%, last seizure about 2 yrs ago, hypothyroid.neuropathy "WHEN HE WORKED HE HAD A CRUSHING INJURY -COLLAPSED LUNGS C/T AND HAS CHRONIC BACK PAIN"" pt states he is schizophrenic/bipolar. History of Any Multi-Drug Resistant Organisms: None Reported Past Surgical History: AICD, Back Surgery, Coronary Bypass/CABG, Heart Catheterization, Heart Catheterization With Stent Additional Past Surgical History / Comment(s): 1995 CABG 4 vessel in [place], has had 2"HEART CATHS/had 2 STENTS after cabg sx.pt stated they were done in [facility]. "sx on tailbone, cortisone injections, devin inguinal hernia repair Past Anesthesia/Blood Transfusion Reactions: No Reported Reaction Date of Last Stent Placement:: 1995 Type of Cardiac Device: AICD Device Placement Date:: [address] in [facility] Past Psychological History: Anxiety, Depression, Schizoaffective Disorder, Schizophrenia Smoking Status: Current every day smoker - Past Family History Mother Family Medical History: Respiratory Disorder Additional Family Medical History / Comment(s): Mother had TB Father Additional Family Medical History / Comment(s): Father was an alcoholic. Medications and Allergies Home Medications Medication Instructions Recorded Confirmed Type Acetaminophen Tab [Tylenol] 1,000 mg PO Q4H PRN 08/23/22 08/23/22 History Cyanocobalamin (Vitamin B-12) 1,000 mcg PO DAILY 08/23/22 08/23/22 History [Vitamin B-12] Melatonin 6 mg PO HS 08/23/22 08/23/22 History Sennosides/Docusate Sodium [Senna 2 tab PO HS 08/23/22 08/23/22 History Plus 8.6-50 mg Tablet] Sucralfate [Carafate] 1 gm PO BID 08/23/22 08/23/22 History Aspirin 81 mg PO DAILY 90 Days #90 tab 08/29/22 Rx Atorvastatin [Lipitor] 40 mg PO HS 90 Days #90 tab 08/29/22 Rx Escitalopram [Lexapro] 20 mg PO DAILY 90 Days #90 tab 08/29/22 Rx Famotidine [Pepcid] 20 mg PO BID 90 Days #180 tab 08/29/22 Rx Levothyroxine Sodium [Synthroid] 100 mcg PO DAILY@0630 90 Days #90 08/29/22 Rx tab Nicotine 21Mg/24Hr Patch [Habitrol] 1 patch TRANSDERM DAILY 90 Days 08/29/22 Rx #90 patch carvediloL [Coreg] 3.125 mg PO BID-W/MEALS 90 Days 08/29/22 Rx #180 tab lisinopriL [Zestril] 5 mg PO DAILY 90 Days #90 tab 08/29/22 Rx traZODone HCL [Desyrel] 50 mg PO HS 30 Days #30 tab 08/29/22 Rx Allergies Allergy/AdvReac Type Severity Reaction Status Date / Time morphine Allergy Anaphylaxis Verified 08/23/22 21:04 Penicillins Allergy Swelling Verified 08/23/22 21:04 on entire body Influenza Virus Vaccines AdvReac Unknown Verified 08/23/22 21:04 pneumococcal vaccine AdvReac Unknown Verified 08/23/22 21:04 Surgical - Exam Vital Signs Pulse Resp Pulse Ox 128 H 26 H 100 08/31/22 00:23 08/31/22 00:23 08/31/22 00:23 General appearance: The patient is alert, oriented, appears in no acute distress. HET: Head is normocephalic and atraumatic. Pupils are equal and reactive. Neck: Supple. Heart: Regular. Lungs: Equal expansion, normal respiratory effort. Abdomen: Soft, nontender, nondistended. Extremities: Normal skin color and turgor. No cyanosis, rash, ulceration, clubbing, or edema. Right groin with incision well approximated no hematoma or bleeding. Left groin puncture site without any hematoma or bleeding, there is surrounding ecchymosis down the medial aspect of his left thigh. Neurological: No focal deficits. Results - Labs 08/31/22 00:32 08/31/22 00:32 Abnormal Lab Results - Last 24 Hours (Table) 08/31/22 08/31/22 08/31/22 Range/Units 00:32 00:32 00:32 RBC 4.23 L (4.30-5.90) m/uL Hgb 11.7 L D (13.0-17.5) gm/dL Hct 36.5 L (39.0-53.0) % PT 13.0 H (9.0-12.0) sec INR 1.3 H (<1.2) Glucose 144 H (74-99) mg/dL Plasma Lactic Acid Rigoberto (0.7-2.0) mmol/L Albumin 3.3 L (3.5-5.0) g/dL 08/31/22 Range/Units 00:32 RBC (4.30-5.90) m/uL Hgb (13.0-17.5) gm/dL Hct (39.0-53.0) % PT (9.0-12.0) sec INR (<1.2) Glucose (74-99) mg/dL Plasma Lactic Acid Rigoberto 6.8 H* (0.7-2.0) mmol/L Albumin (3.5-5.0) g/dL Diabetes panel 08/31/22 Range/Units 00:32 Sodium 141 (137-145) mmol/L Potassium 3.8 (3.5-5.1) mmol/L Chloride 106 (98-107) mmol/L Carbon Dioxide 23 (22-30) mmol/L BUN 12 (9-20) mg/dL Creatinine 1.08 (0.66-1.25) mg/dL Glucose 144 H (74-99) mg/dL Calcium 8.6 (8.4-10.2) mg/dL AST 29 (17-59) U/L ALT 17 (4-49) U/L Alkaline Phosphatase 71 (38-126) U/L Total Protein 6.3 (6.3-8.2) g/dL Albumin 3.3 L (3.5-5.0) g/dL Calcium panel 08/31/22 Range/Units 00:32 Calcium 8.6 (8.4-10.2) mg/dL Albumin 3.3 L (3.5-5.0) g/dL Pituitary panel 08/31/22 Range/Units 00:32 Sodium 141 (137-145) mmol/L Potassium 3.8 (3.5-5.1) mmol/L Chloride 106 (98-107) mmol/L Carbon Dioxide 23 (22-30) mmol/L BUN 12 (9-20) mg/dL Creatinine 1.08 (0.66-1.25) mg/dL Glucose 144 H (74-99) mg/dL Calcium 8.6 (8.4-10.2) mg/dL Adrenal panel 08/31/22 Range/Units 00:32 Sodium 141 (137-145) mmol/L Potassium 3.8 (3.5-5.1) mmol/L Chloride 106 (98-107) mmol/L Carbon Dioxide 23 (22-30) mmol/L BUN 12 (9-20) mg/dL Creatinine 1.08 (0.66-1.25) mg/dL Glucose 144 H (74-99) mg/dL Calcium 8.6 (8.4-10.2) mg/dL Total Bilirubin 0.7 (0.2-1.3) mg/dL AST 29 (17-59) U/L ALT 17 (4-49) U/L Alkaline Phosphatase 71 (38-126) U/L Total Protein 6.3 (6.3-8.2) g/dL Albumin 3.3 L (3.5-5.0) g/dL Assessment and Plan Assessment: 1. Recent percutaneous endovascular abdominal aortic aneurysm repair for 7 cm aneurysm 2. Shortness of breath 3. COPD exacerbation 4. Congestive heart failure 5. Nicotine dependence Plan: 1. Continue symptomatic and supportive care 2. Continue with recommendations from cardiology 3. Continue medical management 4. There is no indication for any vascular surgical intervention Thank you for this consultation. The impression and plan of care has been dictated as directed. I performed a history and examination of this patient, discussed the same with the dictator. I agree with the dictator's note ,documented as a scribe. Any additional findings or plans will be noted.
--- NOTE | 2022-08-31 14:22 | P.CRDCN ---
History of Present Illness Consult date: 08/31/22 Consult reason: congestive heart failure History of present illness: HISTORY OF PRESENT ILLNESS: This is a 72 year old male with a past medical history significant for ischemic cardiomyopathy, AICD implantation, coronary artery disease with previous CABG, hypertension, hyperlipidemia, and COPD. we have been asked see the patient due to heart failure. He was recently hospitalized and seen at that time status post AAA repair, ischemic cardiomyopathy, COPD and tobacco use and dependence. Patient does not follow with a tapper balance wheel screw hole. Patient examined in the emergency center. Patient presented to the hospital with a chief complaint of shortness of breath for the past 2 days. He also complains of some chest pain. He initially presented on BiPAP with respiratory rate 26, heart rate 128. His heart rate is now 51 with a blood pressure 136/77 and patient is on 6 L nasal cannula. * EKG reveals sinus mechanism with a heart rate of 94 * Laboratory data: WBC 9.8, hemoglobin 11.7, platelet count 263. INR 1.3. Potassium 3.8, BUN 12 and creatinine 1.08. Lactic acid 6.8. Troponin 0.019, 0.020, 0.019. ProBNP 6400. Influenza A, influenza B, RSV, Covid 19 not detected. * Current home cardiac medications include aspirin 81 mg daily, Lipitor 40 mg at bedtime, Coreg 3.125 mg twice daily, lisinopril 5 mg at bedtime. * Most recent echocardiogram obtained in August 2022 revealed EF of 40-45% with severe mitral regurgitation and moderate pulmonary hypertension. 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 No convincing evidence of reversible ischemia. REVIEW OF SYSTEMS: At the time of my exam: CONSTITUTIONAL: Denies fever or chills. HEENT: Denies blurred vision, vision changes, or eye pain. Denies hemoptysis CARDIOVASCULAR: Denies chest pain. Denies orthopnea. Denies PND. Denies palpitations RESPIRATORY: Reports shortness of breath. GASTROINTESTINAL: Denies abdominal pain. Denies nausea or vomiting. HEMATOLOGIC: Denies bleeding disorders. GENITOURINARY: Denies any blood in urine. SKIN: Denies pruitis. Denies rash. PHYSICAL EXAM: VITAL SIGNS: Reviewed. GENERAL: Well-developed in no acute distress. HEENT: Head is normocephalic. Pupils are equal, round. Sclerae anicteric. Mucous membranes of the mouth are moist. Neck supple. No JVD or thyromegaly LUNGS: Respirations even and unlabored. Lungs essentially clear to auscultation bilaterally. HEART: Regular rate and rhythm. S1 and S2 heard. Systolic murmur noted ABDOMEN: Soft. Nondistended. Nontender. EXTREMITIES: Normal range of motion. No clubbing or cyanosis. Peripheral pulses intact. No lower extremity edema NEUROLOGIC: Awake and alert. Oriented x 3. ASSESSMENT: Possible acute systolic heart failure Status post AAA repair Coronary artery disease with previous CABG x 4 vessel, 1995 Ischemic cardiomyopathy, EF 25% History of AICD implantation Hypertension Hyperlipidemia COPD Hypothyroidism Nicotine dependence PLAN: Continue home cardiac medications Continue Lasix 40 mg IV every 12 hours for another 24 hours Further recommendations pending patient course Nurse practitioner note has been reviewed by physician. Signing provider agrees with the documented findings, assessment, and plan of care. Past Medical History Past Medical History: Coronary Artery Disease (CAD), Heart Failure, Dementia, Hyperlipidemia, Hypertension, Seizure Disorder, Syncope, Thyroid Disorder Additional Past Medical History / Comment(s): Ischemic cardiomyopathy, EF 20- 25%, last seizure about 2 yrs ago, hypothyroid.neuropathy "WHEN HE WORKED HE HAD A CRUSHING INJURY -COLLAPSED LUNGS C/T AND HAS CHRONIC BACK PAIN"" pt states he is schizophrenic/bipolar. History of Any Multi-Drug Resistant Organisms: None Reported Past Surgical History: AICD, Back Surgery, Coronary Bypass/CABG, Heart Catheterization, Heart Catheterization With Stent Additional Past Surgical History / Comment(s): 1995 CABG 4 vessel in [place], has had 2"HEART CATHS/had 2 STENTS after cabg sx.pt stated they were done in [facility]. "sx on tailbone, cortisone injections, devin inguinal hernia repair Past Anesthesia/Blood Transfusion Reactions: No Reported Reaction Date of Last Stent Placement:: 1995 Type of Cardiac Device: AICD Device Placement Date:: 1995 in [facility] Past Psychological History: Anxiety, Depression, Schizoaffective Disorder, Schizophrenia Smoking Status: Current every day smoker - Past Family History Mother Family Medical History: Respiratory Disorder Additional Family Medical History / Comment(s): Mother had TB Father Additional Family Medical History / Comment(s): Father was an alcoholic. Medications and Allergies Home Medications Medication Instructions Recorded Confirmed Type Acetaminophen Tab [Tylenol] 1,000 mg PO Q4H PRN 08/23/22 08/31/22 History Cyanocobalamin (Vitamin B-12) 1,000 mcg PO DAILY 08/23/22 08/31/22 History [Vitamin B-12] Melatonin 6 mg PO HS 08/23/22 08/31/22 History Sennosides/Docusate Sodium [Senna 2 tab PO HS 08/23/22 08/31/22 History Plus 8.6-50 mg Tablet] Sucralfate [Carafate] 1 gm PO BID@0800,1700 08/23/22 08/31/22 History Aspirin 81 mg PO DAILY 90 Days #90 tab 08/29/22 08/31/22 Rx Atorvastatin [Lipitor] 40 mg PO HS 90 Days #90 tab 08/29/22 08/31/22 Rx Escitalopram [Lexapro] 20 mg PO DAILY 90 Days #90 tab 08/29/22 08/31/22 Rx Levothyroxine Sodium [Synthroid] 100 mcg PO DAILY@0630 90 Days #90 08/29/22 08/31/22 Rx tab carvediloL [Coreg] 3.125 mg PO BID-W/MEALS 90 Days 08/29/22 08/31/22 Rx #180 tab traZODone HCL [Desyrel] 50 mg PO HS 30 Days #30 tab 08/29/22 08/31/22 Rx Famotidine [Pepcid] 20 mg PO BID@0700,1700 08/31/22 08/31/22 History lisinopriL [Zestril] 5 mg PO HS 08/31/22 08/31/22 History Allergies Allergy/AdvReac Type Severity Reaction Status Date / Time morphine Allergy Anaphylaxis Verified 08/31/22 11:36 Penicillins Allergy Swelling Verified 08/31/22 11:36 on entire body Influenza Virus Vaccines AdvReac Unknown Verified 08/31/22 11:36 pneumococcal vaccine AdvReac Unknown Verified 08/31/22 11:36 Physical Exam Vitals: Vital Signs Temp Pulse Pulse Resp BP BP Pulse Ox 08/31/22 11:43 97.6 F 64 20 141/85 100 08/31/22 08:18 97.6 F 64 20 160/89 98 08/31/22 07:00 51 L 18 136/77 01/17/23 06:00 62 16 141/77 08/31/22 05:00 53 L 16 104/60 100 08/31/22 04:00 61 18 122/55 97 08/31/22 03:00 60 18 123/63 97 08/31/22 02:00 53 L 18 123/63 08/31/22 01:11 56 L 22 115/67 99 08/31/22 00:50 08/31/22 00:43 74 08/31/22 00:33 08/31/22 00:30 82 08/31/22 00:23 128 H 26 H 100 FiO2 08/31/22 11:43 08/31/22 08:18 08/31/22 07:00 08/31/22 06:00 08/31/22 05:00 08/31/22 04:00 08/31/22 03:00 08/31/22 02:00 08/31/22 01:11 08/31/22 00:50 50 08/31/22 00:43 08/31/22 00:33 75 08/31/22 00:30 08/31/22 00:23 Intake and Output 08/30/22 08/31/22 08/31/22 22:59 06:59 14:59 Intake Total 180 Output Total 950 Balance -770 Intake: Oral 180 Output: Urine 950 Other: Voiding Method External Catheter Weight 58.967 kg Results 08/31/22 00:32 08/31/22 00:32 Cardiac Enzymes 08/31/22 08/31/22 08/31/22 Range/Units 00:32 00:32 05:19 AST 29 (17-59) U/L Troponin I 0.019 0.020 (0.000-0.034) ng/mL 08/31/22 Range/Units 08:39 AST (17-59) U/L Troponin I 0.019 (0.000-0.034) ng/mL Coagulation 08/31/22 Range/Units 00:32 PT 13.0 H (9.0-12.0) sec APTT 23.6 (22.0-30.0) sec CBC 08/31/22 Range/Units 00:32 WBC 9.8 (3.8-10.6) k/uL RBC 4.23 L (4.30-5.90) m/uL Hgb 11.7 L D (13.0-17.5) gm/dL Hct 36.5 L (39.0-53.0) % Plt Count 263 (150-450) k/uL Comprehensive Metabolic Panel 08/31/22 Range/Units 00:32 Sodium 141 (137-145) mmol/L Potassium 3.8 (3.5-5.1) mmol/L Chloride 106 (98-107) mmol/L Carbon Dioxide 23 (22-30) mmol/L BUN 12 (9-20) mg/dL Creatinine 1.08 (0.66-1.25) mg/dL Glucose 144 H (74-99) mg/dL Calcium 8.6 (8.4-10.2) mg/dL AST 29 (17-59) U/L ALT 17 (4-49) U/L Alkaline Phosphatase 71 (38-126) U/L Total Protein 6.3 (6.3-8.2) g/dL Albumin 3.3 L (3.5-5.0) g/dL Current Medications Generic Name Dose Route Start Last Admin Trade Name Freq PRN Reason Stop Dose Admin Albuterol/Ipratropium 3 ml 08/31/22 02:49 Ipratropium-Albuterol 3 Ml Neb INHALATION Q4HR PRN Shortness Of Breath Or Wheezing Aspirin 81 mg 08/31/22 09:00 08/31/22 08:35 Aspirin 81 Mg PO 81 mg DAILY RADHA Administration Atorvastatin Calcium 40 mg 08/31/22 21:00 Atorvastatin 40 Mg Tab PO HS RADHA Carvedilol 3.125 mg 08/31/22 07:30 08/31/22 08:35 Carvedilol 3.125 Mg Tab PO 3.125 mg BID-W/MEALS RADHA Administration Escitalopram Oxalate 20 mg 08/31/22 09:00 08/31/22 08:35 Escitalopram 20 Mg Tab PO 20 mg DAILY RADHA Administration Furosemide 40 mg 08/31/22 09:00 08/31/22 08:36 Furosemide 10 Mg/Ml 4 Ml Vial IV 40 mg Q12HR RADHA Administration Levothyroxine Sodium 100 mcg 08/31/22 06:30 08/31/22 06:13 Levothyroxine 100 Mcg Tab PO 100 mcg DAILY@0630 RADHA Administration Lisinopril 5 mg 08/31/22 09:00 08/31/22 08:35 Lisinopril 5 Mg Tab PO 5 mg DAILY RADHA Administration Methylprednisolone Sodium Succinate 40 mg 08/31/22 09:00 08/31/22 08:36 Methylprednisolone Sod Succi 40 Mg/Ml 1 Ml Vial IV 40 mg Q12HR RADHA Administration Naloxone HCl 0.2 mg 08/31/22 03:20 Naloxone 0.4 Mg/Ml 1 Ml Vial IV Q2M PRN Opioid Reversal Nicotine 1 patch 08/31/22 09:00 08/31/22 08:36 Nicotine 21mg/24hr Patch TRANSDERM 1 patch DAILY RADHA Administration Intake and Output 08/30/22 08/31/22 08/31/22 22:59 06:59 14:59 Intake Total 180 Output Total 950 Balance -770 Intake: Oral 180 Output: Urine 950 Other: Voiding Method External Catheter Weight 58.967 kg 08/31/22 00:32 08/31/22 00:32
[2022-08-31] MEDS ORDERED: DEXTROSE 50% SYRINGE 50 ML IVP PRN ×2 (19:29)
[2022-08-31 20:37] LABS: Glucose,Whole Blood 204 mg/dL (70-110)
[2022-08-31] MEDS: ATORVASTATIN 40 MG TAB PO SCH (20:51)
[2022-08-31] MEDS: INSULIN ASPART (NovoLOG) 100 UNIT/ML VIAL SQ SCH (20:56)
--- NOTE | 2022-09-01 01:55 | HP ---
HISTORY AND PHYSICAL HISTORY OF PRESENT ILLNESS: A 72-year-old with history of ischemic cardiomyopathy, AICD implantation, coronary artery disease, previous CABG, hypertension, dyslipidemia, COPD, came with worsening shortness of breath due to heart failure. He is status post AAA repair, ischemic cardiomyopathy, COPD, nicotine addiction. He had no shortness of breath, chest pain. He was placed on his BiPAP. He went home. He did not have any of his updraft treatments. He had no oxygen at home and he says he did fill his medicines. He is now on 6L of oxygen. EKG shows sinus rhythm. Labs; hemoglobin 11.7, white count 9.8, potassium 3.8. Influenza A/B, RSV, COVID negative. Continues on his home medications. Echo showed 40% to 45%, severe mitral regurgitation, moderate pulmonary hypertension. 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 No reversible ischemia. REVIEW OF SYSTEMS: A 14-point review of systems, shortness of breath at rest and with exertion. PHYSICAL EXAMINATION: VITAL SIGNS: Stable. Afebrile. LUNGS: Scattered wheeze and rhonchi. HEART: S1, S2. GI: Soft. EXTREMITIES: 2+ edema. NEUROLOGIC: Cranial nerves pleasantly confused. PSYCH: Fair mood and affect. ASSESSMENT: Status post acute abdominal aortic aneurysm repair, possible acute systolic heart failure, status post coronary artery bypass graft, ischemic cardiomyopathy, AICD implantation, hypertension, dyslipidemia, chronic obstructive pulmonary disease, hypothyroidism, nicotine addiction. Continue with Lasix. Possibly add some pulmonary hypertension medications, medication adjustment. Surgical consult with Dr. Cook, who recently operated on the patient. Blood pressure controlled. Prognosis guarded. MMODL / IJN: [id number] /
[2022-09-01] MEDS: SILDENAFIL 20 MG TAB PO SCH ×4 (02:36→21:52)
[2022-09-01 06:22] LABS: Glucose,Whole Blood 158 mg/dL (70-110)
[2022-09-01] MEDS: carvediloL 3.125 MG TAB PO SCH ×2 (06:36→17:03)
[2022-09-01] MEDS: LEVOTHYROXINE 100 MCG TAB PO SCH (06:39)
[2022-09-01] MEDS: INSULIN ASPART (NovoLOG) 100 UNIT/ML VIAL SQ SCH ×4 (06:41→20:21)
[2022-09-01] MEDS: NICOTINE 21MG/24HR PATCH TRANSDERM SCH (09:15)
[2022-09-01] MEDS: methylPREDNISolone SOD SUCCI 40 MG/ML 1 ML VIAL IV SCH ×2 (09:16→20:29)
[2022-09-01] MEDS: ESCITALOPRAM 20 MG TAB PO SCH (09:16)
[2022-09-01] MEDS: ASPIRIN 81 MG PO SCH (09:16)
[2022-09-01] MEDS: FUROSEMIDE 10 MG/ML 2 ML VIAL IV SCH ×2 (09:16→20:27)
[2022-09-01 09:46] LABS: Basophils % (A) 0 %; Eosinophils % (A) 0 %; HCT 30.8 % (39.0-53.0); Lymphocytes % (A) 10 %; MCH 27.4 pg (25.0-35.0); MCV 85.8 fL (80.0-100.0); Monocytes # (A) 0.5 k/uL (0-1.0); Monocytes % (A) 5 %; Neutrophils # (A) 8.7 k/uL (1.3-7.7); Neutrophils % (A) 84 %; Platelet Count 206 k/uL (150-450); RBC 3.59 m/uL (4.30-5.90); RDW 15.5 % (11.5-15.5); WBC 10.3 k/uL (3.8-10.6)
--- NOTE | 2022-09-01 10:00 | P.PN ---
Subjective Progress Note Date: 09/01/22 Principal diagnosis: Recent AAA repair Patient was seen and examined at the follow-up. He continues to deny any abdominal pain states his shortness of breath is improved, no chest pain. Oxygen saturation 94% on 4 L nasal cannula. Objective - Vital Signs Vital signs: Vital Signs Temp 97.6 F 09/01/22 04:00 Pulse 61 09/01/22 04:00 Resp 14 09/01/22 04:00 BP 89/51 09/01/22 04:00 Pulse Ox 94 L 09/01/22 08:52 FiO2 50 08/31/22 00:50 Intake & Output 08/31/22 09/01/22 09/01/22 18:59 06:59 18:59 Intake Total 270 Output Total 1250 400 Balance -980 -400 Weight 58 kg Intake: Oral 270 Output: Urine 1250 400 Other: Voiding Method External Catheter External Catheter - Exam General appearance: The patient is alert, oriented, appears in no acute distress. HET: Head is normocephalic and atraumatic. Pupils are equal and reactive. Neck: Supple. Heart: Regular. Lungs: Equal expansion, normal respiratory effort. Abdomen: Soft, nontender, nondistended. Extremities: Normal skin color and turgor. No cyanosis, rash, ulceration, clubbing, or edema. Right groin with incision well approximated no hematoma or bleeding. Left groin puncture site without any hematoma or bleeding, there is surrounding ecchymosis down the medial aspect of his left thigh. Neurological: No focal deficits. - Labs CBC & Chem 7: 08/31/22 00:32 08/31/22 00:32 Labs: Abnormal Lab Results - Last 24 Hours (Table) 08/31/22 09/01/22 Range/Units 20:36 06:20 POC Glucose (mg/dL) 204 H 158 H (70-110) mg/dL Assessment and Plan Assessment: 1. Recent percutaneous endovascular abdominal aortic aneurysm repair for 7 cm aneurysm 2. Shortness of breath 3. COPD exacerbation 4. Congestive heart failure 5. Nicotine dependence Plan: 1. Continue symptomatic and supportive care 2. Continue with recommendations from cardiology 3. Continue medical management 4. There is no indication for any vascular surgical intervention Thank you for this consultation. We will sign off at this time. The impression and plan of care has been dictated as directed. Dr. Alanis I performed a history and examination of this patient, discussed the same with the dictator. I agree with the dictator's note ,documented as a scribe. Any additional findings or plans will be noted.
[2022-09-01 10:03] LABS: African American GFR (CKD) >90 (>60 ml/min/1.73 sqM); Anion Gap 4 mmol/L; Blood Urea Nitrogen 14 mg/dL (9-20); Calcium 7.7 mg/dL (8.4-10.2); Carbon Dioxide 32 mmol/L (22-30); Chloride 100 mmol/L (98-107); Glucose 126 mg/dL (74-99); Non-African American GFR(CKD) 83 (>60 ml/min/1.73 sqM); Potassium 3.5 mmol/L (3.5-5.1); Sodium 136 mmol/L (137-145)
[2022-09-01 10:16] LABS: HGB 9.9 gm/dL (13.0-17.5)
[2022-09-01 11:39] LABS: Glucose,Whole Blood 138 mg/dL (70-110)
--- NOTE | 2022-09-01 12:30 | P.PN ---
Subjective Progress Note Date: 09/01/22 HISTORY OF PRESENT ILLNESS: This is a 72 year old male with a past medical history significant for ischemic cardiomyopathy, AICD implantation, coronary artery disease with previous CABG, hypertension, hyperlipidemia, and COPD. we have been asked see the patient due to heart failure. He was recently hospitalized and seen at that time status post AAA repair, ischemic cardiomyopathy, COPD and tobacco use and dependence. Patient does not follow with a basket machine operator. Patient examined in the emergency center. Patient presented to the hospital with a chief complaint of shortness of breath for the past 2 days. He also complains of some chest pain. He initially presented on BiPAP with respiratory rate 26, heart rate 128. His heart rate is now 51 with a blood pressure 136/77 and patient is on 6 L nasal cannula. * EKG reveals sinus mechanism with a heart rate of 94 * Laboratory data: WBC 9.8, hemoglobin 11.7, platelet count 263. INR 1.3. Potassium 3.8, BUN 12 and creatinine 1.08. Lactic acid 6.8. Troponin 0.019, 0.020, 0.019. ProBNP 6400. Influenza A, influenza B, RSV, Covid 19 not detected. * Current home cardiac medications include aspirin 81 mg daily, Lipitor 40 mg at bedtime, Coreg 3.125 mg twice daily, lisinopril 5 mg at bedtime. * Most recent echocardiogram obtained in August 2022 revealed EF of 40-45% with severe mitral regurgitation and moderate pulmonary hypertension. 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 No convincing evidence of reversible ischemia. 09/01 Patient is resting flat in bed. He denies shortness of breath. No lower extremity edema. Blood pressure is soft and lisinopril will be decreased to 2.5 mg daily and Lasix will be decreased to 20 mg IV every 12 hours. PHYSICAL EXAM: VITAL SIGNS: Reviewed. GENERAL: Well-developed in no acute distress. HEENT: Head is normocephalic. Pupils are equal, round. Sclerae anicteric. Mucous membranes of the mouth are moist. No JVD LUNGS: Respirations even and unlabored. Lungs essentially clear to auscultation bilaterally. HEART: Regular rate and rhythm. S1 and S2 heard. Systolic murmur noted ABDOMEN: Soft. Nondistended. Nontender. EXTREMITIES: Normal range of motion. No clubbing or cyanosis. Peripheral pulses intact. No lower extremity edema NEUROLOGIC: Awake and alert. Oriented x 3. ASSESSMENT: Possible acute systolic heart failure Status post AAA repair Coronary artery disease with previous CABG x 4 vessel, 1995 Ischemic cardiomyopathy, EF 25% History of AICD implantation Hypertension Hyperlipidemia COPD Hypothyroidism Nicotine dependence PLAN: Continue home cardiac medications Decrease lisinopril to 2.5 mg daily Decrease Lasix to 20 mg IV every 12 hours for another 24 hours and plan to transition to oral tomorrow Further recommendations pending patient course Nurse practitioner note has been reviewed by physician. Signing provider agrees with the documented findings, assessment, and plan of care. Objective - Vital Signs Vital signs: Vital Signs Temp 97.6 F 09/01/22 04:00 Pulse 61 09/01/22 04:00 Resp 14 09/01/22 04:00 BP 89/51 09/01/22 04:00 Pulse Ox 94 L 09/01/22 04:37 FiO2 50 08/31/22 00:50 Intake & Output 08/31/22 09/01/22 09/01/22 18:59 06:59 18:59 Intake Total 270 Output Total 1250 400 Balance -980 -400 Weight 58 kg Intake: Oral 270 Output: Urine 1250 400 Other: Voiding Method External Catheter External Catheter - Labs CBC & Chem 7: 09/01/22 08:51 09/01/22 08:51 Labs: Abnormal Lab Results - Last 24 Hours (Table) 08/31/22 09/01/22 Range/Units 20:36 06:20 POC Glucose (mg/dL) 204 H 158 H (70-110) mg/dL
[2022-09-01 16:59] LABS: Glucose,Whole Blood 179 mg/dL (70-110)
[2022-09-01 20:09] LABS: Glucose,Whole Blood 144 mg/dL (70-110)
[2022-09-01] MEDS: ATORVASTATIN 40 MG TAB PO SCH (20:26)
[2022-09-02 06:11] LABS: Glucose,Whole Blood 150 mg/dL (70-110)
[2022-09-02] MEDS: INSULIN ASPART (NovoLOG) 100 UNIT/ML VIAL SQ SCH ×4 (06:18→20:36)
[2022-09-02] MEDS: carvediloL 3.125 MG TAB PO SCH ×2 (06:19→17:10)
[2022-09-02] MEDS: LEVOTHYROXINE 100 MCG TAB PO SCH (06:20)
[2022-09-02] MEDS: NICOTINE 21MG/24HR PATCH TRANSDERM SCH (08:29)
[2022-09-02] MEDS: FUROSEMIDE 10 MG/ML 2 ML VIAL IV SCH (08:29)
[2022-09-02] MEDS: ASPIRIN 81 MG PO SCH (08:29)
[2022-09-02] MEDS: ESCITALOPRAM 20 MG TAB PO SCH (08:29)
[2022-09-02] MEDS: SILDENAFIL 20 MG TAB PO SCH ×3 (08:29→23:54)
[2022-09-02] MEDS: methylPREDNISolone SOD SUCCI 40 MG/ML 1 ML VIAL IV SCH ×2 (08:30→20:36)
[2022-09-02] MEDS ORDERED: carvediloL 6.25 MG TAB PO SCH (09:30)
[2022-09-02 09:44] LABS: Potassium 3.6 mmol/L (3.5-5.1)
[2022-09-02] MEDS: FUROSEMIDE 20 MG TAB PO SCH ×2 (10:12→15:39)
--- NOTE | 2022-09-02 11:34 | P.PN ---
Subjective Progress Note Date: 09/02/22 HISTORY OF PRESENT ILLNESS: This is a 72 year old male with a past medical history significant for ischemic cardiomyopathy, AICD implantation, coronary artery disease with previous CABG, hypertension, hyperlipidemia, and COPD. we have been asked see the patient due to heart failure. He was recently hospitalized and seen at that time status post AAA repair, ischemic cardiomyopathy, COPD and tobacco use and dependence. Patient does not follow with a ciso. Patient examined in the emergency center. Patient presented to the hospital with a chief complaint of shortness of breath for the past 2 days. He also complains of some chest pain. He initially presented on BiPAP with respiratory rate 26, heart rate 128. His heart rate is now 51 with a blood pressure 136/77 and patient is on 6 L nasal cannula. * EKG reveals sinus mechanism with a heart rate of 94 * Laboratory data: WBC 9.8, hemoglobin 11.7, platelet count 263. INR 1.3. Potassium 3.8, BUN 12 and creatinine 1.08. Lactic acid 6.8. Troponin 0.019, 0.020, 0.019. ProBNP 6400. Influenza A, influenza B, RSV, Covid 19 not detected. * Current home cardiac medications include aspirin 81 mg daily, Lipitor 40 mg at bedtime, Coreg 3.125 mg twice daily, lisinopril 5 mg at bedtime. * Most recent echocardiogram obtained in August 2022 revealed EF of 40-45% with severe mitral regurgitation and moderate pulmonary hypertension. 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 No convincing evidence of reversible ischemia. 09/01 Patient is resting flat in bed. He denies shortness of breath. No lower extremity edema. Blood pressure is soft and lisinopril will be decreased to 2.5 mg daily and Lasix will be decreased to 20 mg IV every 12 hours. 09/02 Patient denies having any shortness of breath. He is currently on O2 at 2 L nasal cannula with pulse ox of 97%. No lower extremity edema. Blood pressures improved today after changes made yesterday. Blood pressure 146/82, heart rate 60-80 in a sinus rhythm. Patient has been on Lasix 20 mg IV every 12 hours which will be transitioned to oral. Potassium 2.6, BUN 21 creatinine 1.01. PHYSICAL EXAM: VITAL SIGNS: Reviewed. GENERAL: Well-developed in no acute distress. HEENT: Head is normocephalic. Pupils are equal, round. Sclerae anicteric. Mucous membranes of the mouth are moist. No JVD LUNGS: Respirations even and unlabored. Lungs essentially clear to auscultation bilaterally. HEART: Regular rate and rhythm. S1 and S2 heard. Systolic murmur noted ABDOMEN: Soft. Nondistended. Nontender. EXTREMITIES: Normal range of motion. No clubbing or cyanosis. Peripheral pulses intact. No lower extremity edema NEUROLOGIC: Awake and alert. Oriented x 3. ASSESSMENT: Possible acute systolic heart failure Status post AAA repair Coronary artery disease with previous CABG x 4 vessel, 1995 Ischemic cardiomyopathy, EF 25% History of AICD implantation Hypertension Hyperlipidemia COPD Hypothyroidism Nicotine dependence PLAN: Continue home cardiac medications Continued decreased dose of lisinopril to 2.5 mg daily Transition IV Lasix to oral 20 mg twice daily Increase Coreg to 6.25 mg twice daily Further recommendations pending patient course Nurse practitioner note has been reviewed by physician. Signing provider agrees with the documented findings, assessment, and plan of care. Objective - Vital Signs Vital signs: Vital Signs Temp 98.6 F 09/02/22 08:27 Pulse 81 09/02/22 08:41 Resp 16 09/02/22 08:27 BP 146/82 09/02/22 08:27 Pulse Ox 97 09/02/22 08:27 FiO2 50 08/31/22 00:50 Intake & Output 09/01/22 09/02/22 09/02/22 18:59 06:59 18:59 Intake Total 360 Output Total 300 800 Balance 60 -800 Weight 58.2 kg Intake: Oral 360 Output: Urine 300 800 Other: Voiding Method External Catheter Urinal Urinal # Voids 0 - Labs CBC & Chem 7: 09/01/22 08:51 09/02/22 08:59 Labs: Abnormal Lab Results - Last 24 Hours (Table) 09/01/22 09/01/22 09/01/22 Range/Units 08:51 08:51 11:34 RBC 3.59 L (4.30-5.90) m/uL Hgb 9.9 L D (13.0-17.5) gm/dL Hct 30.8 L (39.0-53.0) % Neutrophils # 8.7 H (1.3-7.7) k/uL Sodium 136 L (137-145) mmol/L Carbon Dioxide 32 H (22-30) mmol/L Glucose 126 H (74-99) mg/dL POC Glucose (mg/dL) 138 H (70-110) mg/dL Calcium 7.7 L (8.4-10.2) mg/dL 09/01/22 09/01/22 09/02/22 Range/Units 16:53 20:08 06:10 RBC (4.30-5.90) m/uL Hgb (13.0-17.5) gm/dL Hct (39.0-53.0) % Neutrophils # (1.3-7.7) k/uL Sodium (137-145) mmol/L Carbon Dioxide (22-30) mmol/L Glucose (74-99) mg/dL POC Glucose (mg/dL) 179 H 144 H 150 H (70-110) mg/dL Calcium (8.4-10.2) mg/dL
[2022-09-02 11:44] LABS: Glucose,Whole Blood 169 mg/dL (70-110)
[2022-09-02 16:50] LABS: Glucose,Whole Blood 203 mg/dL (70-110)
[2022-09-02 19:57] LABS: Glucose,Whole Blood 179 mg/dL (70-110)
[2022-09-02] MEDS: ATORVASTATIN 40 MG TAB PO SCH (20:36)
--- NOTE | 2022-09-03 03:21 | PN ---
PROGRESS NOTE SUBJECTIVE: The patient came in for ischemic cardiomyopathy with low ejection fraction. He did not have his updraft machine at home. He did not have his oxygen at home. History of ischemic cardiomyopathy, CABG, hypertension, dyslipidemia. Prognosis is guarded. Without his BiPAP oxygen, he will not do well, he needs his oxygen at home, he needs his updrafts at home. OBJECTIVE: CARDIOVASCULAR: S1, S2. LUNGS: Clear. GI: Soft. HEMATOLOGY: Negative Homans. PSYCH: Fair mood and affect. ASSESSMENT: Ischemic cardiomyopathy, systolic heart failure, AAA repair, CABG, coronary artery disease, ejection fraction 25%, hypertension, dyslipidemia, COPD, hypothyroidism, nicotine addiction. Switch him to oral Lasix, updrafts, home O2, all be set up with an updraft machine prior to him going home. Prognosis guarded. MMODL / IJN: [id number] /
[2022-09-03 06:07] LABS: Glucose,Whole Blood 167 mg/dL (70-110)
[2022-09-03] MEDS: INSULIN ASPART (NovoLOG) 100 UNIT/ML VIAL SQ SCH ×4 (06:22→21:37)
[2022-09-03] MEDS: LEVOTHYROXINE 100 MCG TAB PO SCH (06:22)
[2022-09-03] MEDS: carvediloL 3.125 MG TAB PO SCH ×2 (06:22→14:52)
[2022-09-03 07:31] LABS: Basophils % (A) 0 %; Eosinophils % (A) 0 %; HCT 32.2 % (39.0-53.0); HGB 10.2 gm/dL (13.0-17.5); Lymphocytes % (A) 10 %; MCH 27.3 pg (25.0-35.0); MCHC 31.8 g/dL (31.0-37.0); MCV 86.1 fL (80.0-100.0); Mean Platelet Volume 8.7; Monocytes # (A) 0.4 k/uL (0-1.0); Monocytes % (A) 4 %; Neutrophils # (A) 8.7 k/uL (1.3-7.7); Neutrophils % (A) 85 %; Platelet Count 238 k/uL (150-450); RBC 3.73 m/uL (4.30-5.90); RDW 15.4 % (11.5-15.5); WBC 10.2 k/uL (3.8-10.6)
[2022-09-03 07:54] LABS: Calcium 7.7 mg/dL (8.4-10.2); Potassium 3.5 mmol/L (3.5-5.1); Total Bilirubin 0.4 mg/dL (0.2-1.3); Total Protein 5.6 g/dL (6.3-8.2)
[2022-09-03] MEDS: ESCITALOPRAM 20 MG TAB PO SCH (08:23)
[2022-09-03] MEDS: NICOTINE 21MG/24HR PATCH TRANSDERM SCH (08:23)
[2022-09-03] MEDS: methylPREDNISolone SOD SUCCI 40 MG/ML 1 ML VIAL IV SCH ×2 (08:23→21:30)
[2022-09-03] MEDS: ASPIRIN 81 MG PO SCH (08:23)
[2022-09-03] MEDS: SILDENAFIL 20 MG TAB PO SCH ×3 (08:23→21:34)
[2022-09-03] MEDS: FUROSEMIDE 20 MG TAB PO SCH ×2 (08:23→14:52)
--- NOTE | 2022-09-03 11:12 | P.PN ---
Subjective Progress Note Date: 09/03/22 HISTORY OF PRESENT ILLNESS: This is a 72 year old male with a past medical history significant for ischemic cardiomyopathy, AICD implantation, coronary artery disease with previous CABG, hypertension, hyperlipidemia, and COPD. we have been asked see the patient due to heart failure. He was recently hospitalized and seen at that time status post AAA repair, ischemic cardiomyopathy, COPD and tobacco use and dependence. Patient does not follow with a television servicer. Patient examined in the emergency center. Patient presented to the hospital with a chief complaint of shortness of breath for the past 2 days. He also complains of some chest pain. He initially presented on BiPAP with respiratory rate 26, heart rate 128. His heart rate is now 51 with a blood pressure 136/77 and patient is on 6 L nasal cannula. * EKG reveals sinus mechanism with a heart rate of 94 * Laboratory data: WBC 9.8, hemoglobin 11.7, platelet count 263. INR 1.3. Potassium 3.8, BUN 12 and creatinine 1.08. Lactic acid 6.8. Troponin 0.019, 0.020, 0.019. ProBNP 6400. Influenza A, influenza B, RSV, Covid 19 not detected. * Current home cardiac medications include aspirin 81 mg daily, Lipitor 40 mg at bedtime, Coreg 3.125 mg twice daily, lisinopril 5 mg at bedtime. * Most recent echocardiogram obtained in August 2022 revealed EF of 40-45% with severe mitral regurgitation and moderate pulmonary hypertension. 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 No convincing evidence of reversible ischemia. 09/01 Patient is resting flat in bed. He denies shortness of breath. No lower extremity edema. Blood pressure is soft and lisinopril will be decreased to 2.5 mg daily and Lasix will be decreased to 20 mg IV every 12 hours. 09/02 Patient denies having any shortness of breath. He is currently on O2 at 2 L nasal cannula with pulse ox of 97%. No lower extremity edema. Blood pressures improved today after changes made yesterday. Blood pressure 146/82, heart rate 60-80 in a sinus rhythm. Patient has been on Lasix 20 mg IV every 12 hours which will be transitioned to oral. Potassium 2.6, BUN 21 creatinine 1.01. 09/03 The patient denies any new concerns today. Yesterday, we increased dose of Coreg but he did have a drop in his blood pressure and patient will be placed back on the lower dose. He is also continued on lisinopril which we decreased yesterday. Heart rate PHYSICAL EXAM: VITAL SIGNS: Reviewed. GENERAL: Well-developed in no acute distress. HEENT: Head is normocephalic. Pupils are equal, round. Sclerae anicteric. Mucous membranes of the mouth are moist. No JVD LUNGS: Respirations even and unlabored. Lungs clear to auscultation bilaterally. HEART: Regular rate and rhythm. S1 and S2 heard. Systolic murmur noted ABDOMEN: Soft. Nondistended. Nontender. EXTREMITIES: Normal range of motion. No clubbing or cyanosis. Peripheral pulses intact. No lower extremity edema NEUROLOGIC: Awake and alert. Oriented x 3. ASSESSMENT: Acute systolic heart failure Status post AAA repair Coronary artery disease with previous CABG x 4 vessel, 1995 Ischemic cardiomyopathy, EF 25% History of AICD implantation Hypertension Hyperlipidemia COPD Hypothyroidism Nicotine dependence PLAN: Continue home cardiac medications Continued decreased dose of lisinopril to 2.5 mg daily Continue Lasix oral 20 mg twice daily Resume Coreg back to 3.125 mg twice daily Patient is cleared for discharge from cardiology may follow up in the office in one week. Nurse practitioner note has been reviewed by physician. Signing provider agrees with the documented findings, assessment, and plan of care. Objective - Vital Signs Vital signs: Vital Signs Temp 98.6 F 09/02/22 08:27 Pulse 64 09/03/22 04:16 Resp 16 09/03/22 04:16 BP 128/70 09/03/22 04:16 Pulse Ox 97 09/03/22 04:16 FiO2 50 08/31/22 00:50 Intake & Output 09/02/22 09/03/22 09/03/22 18:59 06:59 18:59 Intake Total 900 Output Total 300 350 Balance 600 -350 Weight 56.9 kg Intake: Oral 900 Output: Urine 300 350 Other: Voiding Method Urinal Urinal - Labs CBC & Chem 7: 09/03/22 06:31 09/03/22 06:31 Labs: Abnormal Lab Results - Last 24 Hours (Table) 09/02/22 09/02/22 09/02/22 Range/Units 08:59 11:43 16:49 RBC (4.30-5.90) m/uL Hgb (13.0-17.5) gm/dL Hct (39.0-53.0) % Neutrophils # (1.3-7.7) k/uL Sodium (137-145) mmol/L Chloride 97 L (98-107) mmol/L Carbon Dioxide 34 H (22-30) mmol/L BUN 21 H (9-20) mg/dL Glucose 144 H (74-99) mg/dL POC Glucose (mg/dL) 169 H 203 H (70-110) mg/dL Calcium 8.0 L (8.4-10.2) mg/dL Total Protein (6.3-8.2) g/dL Albumin (3.5-5.0) g/dL 09/02/22 09/03/22 09/03/22 Range/Units 19:56 06:06 06:31 RBC (4.30-5.90) m/uL Hgb (13.0-17.5) gm/dL Hct (39.0-53.0) % Neutrophils # (1.3-7.7) k/uL Sodium 134 L (137-145) mmol/L Chloride 97 L (98-107) mmol/L Carbon Dioxide 33 H (22-30) mmol/L BUN 25 H (9-20) mg/dL Glucose 132 H (74-99) mg/dL POC Glucose (mg/dL) 179 H 167 H (70-110) mg/dL Calcium 7.7 L (8.4-10.2) mg/dL Total Protein 5.6 L (6.3-8.2) g/dL Albumin 3.0 L (3.5-5.0) g/dL 09/03/22 Range/Units 06:31 RBC 3.73 L (4.30-5.90) m/uL Hgb 10.2 L (13.0-17.5) gm/dL Hct 32.2 L (39.0-53.0) % Neutrophils # 8.7 H (1.3-7.7) k/uL Sodium (137-145) mmol/L Chloride (98-107) mmol/L Carbon Dioxide (22-30) mmol/L BUN (9-20) mg/dL Glucose (74-99) mg/dL POC Glucose (mg/dL) (70-110) mg/dL Calcium (8.4-10.2) mg/dL Total Protein (6.3-8.2) g/dL Albumin (3.5-5.0) g/dL
[2022-09-03 11:31] LABS: Glucose,Whole Blood 172 mg/dL (70-110)
[2022-09-03 16:29] LABS: Glucose,Whole Blood 270 mg/dL (70-110)
[2022-09-03 20:11] LABS: Glucose,Whole Blood 131 mg/dL (70-110)
[2022-09-03] MEDS: ATORVASTATIN 40 MG TAB PO SCH (21:33)
[2022-09-04 06:10] LABS: Glucose,Whole Blood 155 mg/dL (70-110)
[2022-09-04] MEDS: LEVOTHYROXINE 100 MCG TAB PO SCH (06:50)
[2022-09-04] MEDS: carvediloL 3.125 MG TAB PO SCH ×2 (06:50→16:35)
[2022-09-04] MEDS: INSULIN ASPART (NovoLOG) 100 UNIT/ML VIAL SQ SCH ×4 (06:50→21:24)
[2022-09-04] MEDS: NICOTINE 21MG/24HR PATCH TRANSDERM SCH (07:13)
[2022-09-04] MEDS: methylPREDNISolone SOD SUCCI 40 MG/ML 1 ML VIAL IV SCH ×2 (07:14→20:25)
[2022-09-04] MEDS: FUROSEMIDE 20 MG TAB PO SCH ×2 (07:14→16:35)
[2022-09-04] MEDS: ASPIRIN 81 MG PO SCH (07:14)
[2022-09-04] MEDS: ESCITALOPRAM 20 MG TAB PO SCH (07:14)
[2022-09-04] MEDS: SILDENAFIL 20 MG TAB PO SCH ×3 (07:14→21:25)
[2022-09-04 11:36] LABS: Glucose,Whole Blood 135 mg/dL (70-110)
[2022-09-04 16:29] LABS: Glucose,Whole Blood 173 mg/dL (70-110)
[2022-09-04 20:05] LABS: Glucose,Whole Blood 131 mg/dL (70-110)
[2022-09-04] MEDS: ATORVASTATIN 40 MG TAB PO SCH (20:25)
--- NOTE | 2022-09-05 00:32 | PN ---
PROGRESS NOTE A 72-year-old white male came in with COPD, ischemic cardiomyopathy. He has no nebulizer machine at home. No oxygen at home, which is probably the main reason he came back. He was cleared by Vascular Surgery. Cardiology adjusted medications. He appears to be stable on oxygen and his nebulizer treatments. He only had nebulizer and oxygen to go home with. Vital signs stable, afebrile. Sleepy, lethargic. Cardiovascular S1, S2. Lungs transmitted upper sounds. Hematology, negative Homans. Psych, fair mood and affect. ASSESSMENT: Chronic obstructive pulmonary disease exacerbation, tracheobronchitis, ischemic cardiomyopathy, chronic obstructive pulmonary disease, depression, degenerative disk disease, generalized weakness, nighttime hypoxemia with bad COPD continuing, status post AAA repair. Medications were adjusted. Wait for nebulizer machine and oxygen to be set up for him prior to going home. Maybe care home placement will be appropriate. MMSIVAL / IJN: [id number] /
[2022-09-05 05:56] LABS: Glucose,Whole Blood 161 mg/dL (70-110)
[2022-09-05] MEDS: carvediloL 3.125 MG TAB PO SCH ×2 (06:00→16:15)
[2022-09-05] MEDS: INSULIN ASPART (NovoLOG) 100 UNIT/ML VIAL SQ SCH ×4 (06:00→20:11)
[2022-09-05] MEDS: LEVOTHYROXINE 100 MCG TAB PO SCH (06:00)
[2022-09-05] MEDS: FUROSEMIDE 20 MG TAB PO SCH ×2 (08:47→16:15)
[2022-09-05] MEDS: ASPIRIN 81 MG PO SCH (08:47)
[2022-09-05] MEDS: NICOTINE 21MG/24HR PATCH TRANSDERM SCH (08:47)
[2022-09-05] MEDS: methylPREDNISolone SOD SUCCI 40 MG/ML 1 ML VIAL IV SCH ×2 (08:47→20:19)
[2022-09-05] MEDS: ESCITALOPRAM 20 MG TAB PO SCH (08:47)
[2022-09-05] MEDS: SILDENAFIL 20 MG TAB PO SCH ×3 (08:47→20:19)
[2022-09-05 11:29] LABS: Glucose,Whole Blood 164 mg/dL (70-110)
[2022-09-05 16:34] LABS: Glucose,Whole Blood 226 mg/dL (70-110)
--- NOTE | 2022-09-05 16:47 | P.PN ---
Subjective Progress Note Date: 09/05/22 Principal diagnosis: Acute systolic CHF Acute exacerbation COPD Tracheobronchitis 72 year old male with a past medical history significant for ischemic c ardiomyopathy, AICD implantation, coronary artery disease with previous CABG, hypertension, hyperlipidemia, and COPD. we have been asked see the patient due to heart failure. He was recently hospitalized and seen at that time status post AAA repair, ischemic cardiomyopathy, COPD and tobacco use and dependence. Patient does not follow with a precise winder. Patient examined in the emergency center. Patient presented to the hospital with a chief complaint of shortness of breath for the past 2 days. He also complains of some chest pain. He initially presented on BiPAP with respiratory rate 26, heart rate 128. His heart rate is now 51 with a blood pressure 136/77 and patient is on 6 L nasal cannula. * EKG reveals sinus mechanism with a heart rate of 94 * Laboratory data: WBC 9.8, hemoglobin 11.7, platelet count 263. INR 1.3. Potassium 3.8, BUN 12 and creatinine 1.08. Lactic acid 6.8. Troponin 0.019, 0.020, 0.019. ProBNP 6400. Influenza A, influenza B, RSV, Covid 19 not detected. * Current home cardiac medications include aspirin 81 mg daily, Lipitor 40 mg at bedtime, Coreg 3.125 mg twice daily, lisinopril 5 mg at bedtime. * Most recent echocardiogram obtained in August 2022 revealed EF of 40-45% with severe mitral regurgitation and moderate pulmonary hypertension. 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 No convincing evidence of reversible ischemia. Objective - Vital Signs Vital signs: Vital Signs Temp 97.5 F L 09/05/22 08:44 Pulse 57 L 09/05/22 08:44 Resp 17 09/05/22 08:45 BP 123/72 09/05/22 08:44 Pulse Ox 98 09/05/22 08:44 FiO2 50 08/31/22 00:50 Intake & Output 09/04/22 09/05/22 09/05/22 18:59 06:59 18:59 Intake Total 486 128 Output Total 500 Balance 486 -372 Weight 55.1 kg Intake: IV 10 10 Invasive Line 2 10 10 Oral 476 118 Output: Urine 500 Other: Voiding Method Urinal Urinal # Voids 1 # Bowel Movements 1 - Exam GENERAL: Well-developed in no acute distress. HEENT: Head is normocephalic. Pupils are equal, round. Sclerae anicteric. Mucous membranes of the mouth are moist. No JVD LUNGS: Respirations even and unlabored. Lungs clear to auscultation bilaterally. HEART: Regular rate and rhythm. S1 and S2 heard. Systolic murmur noted ABDOMEN: Soft. Nondistended. Nontender. EXTREMITIES: Normal range of motion. No clubbing or cyanosis. Peripheral pulses intact. No lower extremity edema NEUROLOGIC: Awake and alert. Oriented x 3. - Labs CBC & Chem 7: 09/03/22 06:31 09/03/22 06:31 Labs: Abnormal Lab Results - Last 24 Hours (Table) 09/04/22 09/04/22 09/05/22 Range/Units 16:28 20:03 05:55 POC Glucose (mg/dL) 173 H 131 H 161 H (70-110) mg/dL 09/05/22 Range/Units 11:28 POC Glucose (mg/dL) 164 H (70-110) mg/dL Assessment and Plan Assessment: Acute systolic heart failure Status post AAA repair Coronary artery disease with previous CABG x 4 vessel, 1995 Ischemic cardiomyopathy, EF 25% History of AICD implantation Hypertension Hyperlipidemia COPD Hypothyroidism Nicotine dependence PLAN: Continue home cardiac medications Continued decreased dose of lisinopril to 2.5 mg daily Continue Lasix oral 20 mg twice daily Resume Coreg back to 3.125 mg twice daily
[2022-09-05 20:08] LABS: Glucose,Whole Blood 145 mg/dL (70-110)
[2022-09-05] MEDS: ATORVASTATIN 40 MG TAB PO SCH (20:19)
[2022-09-06 06:17] LABS: Glucose,Whole Blood 138 mg/dL (70-110)
[2022-09-06] MEDS: INSULIN ASPART (NovoLOG) 100 UNIT/ML VIAL SQ SCH ×4 (06:30→20:22)
[2022-09-06] MEDS: carvediloL 3.125 MG TAB PO SCH ×2 (06:45→16:18)
[2022-09-06] MEDS: LEVOTHYROXINE 100 MCG TAB PO SCH (06:45)
[2022-09-06] MEDS: NICOTINE 21MG/24HR PATCH TRANSDERM SCH (08:06)
[2022-09-06] MEDS: methylPREDNISolone SOD SUCCI 40 MG/ML 1 ML VIAL IV SCH ×2 (08:07→20:31)
[2022-09-06] MEDS: ASPIRIN 81 MG PO SCH (08:07)
[2022-09-06] MEDS: ESCITALOPRAM 20 MG TAB PO SCH (08:07)
[2022-09-06] MEDS: FUROSEMIDE 20 MG TAB PO SCH ×2 (08:07→16:18)
[2022-09-06] MEDS: SILDENAFIL 20 MG TAB PO SCH ×3 (08:17→22:00)
[2022-09-06 08:51] LABS: African American GFR (CKD) >90 (>60 ml/min/1.73 sqM); Anion Gap 1 mmol/L; Blood Urea Nitrogen 26 mg/dL (9-20); Calcium 7.4 mg/dL (8.4-10.2); Carbon Dioxide 32 mmol/L (22-30); Chloride 100 mmol/L (98-107); Glucose 127 mg/dL (74-99); Non-African American GFR(CKD) 83 (>60 ml/min/1.73 sqM); Potassium 4.2 mmol/L (3.5-5.1); Sodium 133 mmol/L (137-145)
[2022-09-06 11:48] LABS: Glucose,Whole Blood 125 mg/dL (70-110)
[2022-09-06 16:43] LABS: Glucose,Whole Blood 193 mg/dL (70-110)
[2022-09-06 20:02] LABS: Glucose,Whole Blood 143 mg/dL (70-110)
[2022-09-06] MEDS: ATORVASTATIN 40 MG TAB PO SCH (20:31)
--- NOTE | 2022-09-07 02:09 | PN ---
PROGRESS NOTE SUBJECTIVE: COPD exacerbation, AAA repair, acute hypoxemic respiratory failure. He could use home O2 prior to being discharged. He is qualified for. He has been using it for years. He needs his oxygen at home. He lost it. He does not have it any more. If we do not give him oxygen at home for nighttime, he will come right back to the hospital. nebulizer so far, waiting on discharge planning, has been treated by multiple physicians. OBJECTIVE: LUNGS: Clear. CARDIOVASCULAR: S1, S2. PSYCH: Fair mood and affect. NEUROLOGIC: Alert and oriented x3. ASSESSMENT AND PLAN: Chronic obstructive pulmonary disease exacerbation, ischemic cardiomyopathy, status post abdominal aortic aneurysm repair, schizoaffective bipolar disorder. Continue current treatments. Discharge home once oxygen set up tomorrow. Continue with updraft treatments and medicines as mentioned above. Cardiology adjusted heart medicines. MMODL / MADELAINEN: [id number] /
[2022-09-07 05:30] VITALS: RESP 16
[2022-09-07 06:12] LABS: Glucose,Whole Blood 200 mg/dL (70-110)
[2022-09-07] MEDS: carvediloL 3.125 MG TAB PO SCH (06:27)
[2022-09-07] MEDS: LEVOTHYROXINE 100 MCG TAB PO SCH (06:27)
[2022-09-07] MEDS: INSULIN ASPART (NovoLOG) 100 UNIT/ML VIAL SQ SCH ×2 (06:31→11:21)
[2022-09-07 08:43] VITALS: BMI 20.4
[2022-09-07] MEDS: SILDENAFIL 20 MG TAB PO SCH (09:57)
[2022-09-07] MEDS: NICOTINE 21MG/24HR PATCH TRANSDERM SCH (09:57)
[2022-09-07] MEDS: FUROSEMIDE 20 MG TAB PO SCH (09:58)
[2022-09-07] MEDS: ESCITALOPRAM 20 MG TAB PO SCH (09:58)
[2022-09-07] MEDS: methylPREDNISolone SOD SUCCI 40 MG/ML 1 ML VIAL IV SCH (09:58)
[2022-09-07] MEDS: ASPIRIN 81 MG PO SCH (09:58)
[2022-09-07 10:23] VITALS: BP 143/84; PULSE 67; TEMP 96.7
[2022-09-07 11:25] LABS: Glucose,Whole Blood 139 mg/dL (70-110)
== END 2022-09-07 13:16 | disposition home health service (06) | DRG 291 ==
LOC: EC 00:22 → 3SCARD 03:22
PROVIDERS: ADMIT Family Medicine; ATTEND Family Medicine
PROC: 5A09357 Assistance with Respiratory Ventilation, Less than 24 Consecutive Hours, Continuous Positive Airway Pressure (ICD-10-PCS; principal; 2022-08-31)
DX: I11.0 Hypertensive heart disease with heart failure (principal); I50.21 Acute systolic (congestive) heart failure; J96.01 Acute respiratory failure with hypoxia; F03.93 Unspecified dementia, unspecified severity, with mood disturbance; F03.94 Unspecified dementia, unspecified severity, with anxiety; J44.1 Chronic obstructive pulmonary disease with (acute) exacerbation; I27.20 Pulmonary hypertension, unspecified; F25.0 Schizoaffective disorder, bipolar type; G40.909 Epilepsy, unspecified, not intractable, without status epilepticus; Z20.822 Contact with and (suspected) exposure to COVID-19; Z28.310 Unvaccinated for COVID-19; F41.9 Anxiety disorder, unspecified; E03.9 Hypothyroidism, unspecified; I25.5 Ischemic cardiomyopathy; I71.40 Abdominal aortic aneurysm, without rupture, unspecified; I25.10 Atherosclerotic heart disease of native coronary artery without angina pectoris; K57.30 Diverticulosis of large intestine without perforation or abscess without bleeding; I34.0 Nonrheumatic mitral (valve) insufficiency; E78.5 Hyperlipidemia, unspecified; G62.9 Polyneuropathy, unspecified; G89.29 Other chronic pain; M54.9 Dorsalgia, unspecified; F17.210 Nicotine dependence, cigarettes, uncomplicated; Z71.6 Tobacco abuse counseling; Z79.82 Long term (current) use of aspirin; Z79.890 Hormone replacement therapy; Z79.899 Other long term (current) drug therapy; Z95.828 Presence of other vascular implants and grafts; Z95.1 Presence of aortocoronary bypass graft; Z95.5 Presence of coronary angioplasty implant and graft; Z95.810 Presence of automatic (implantable) cardiac defibrillator; Z88.5 Allergy status to narcotic agent; Z88.0 Allergy status to penicillin; Z88.7 Allergy status to serum and vaccine
CPT/HCPCS: 36415; 71045; 71275; 74174; 80048; 80053; 82803; 83605; 83735; 83880; 84443; 84484; 85025; 85610; 85730; 86850; 86900; 86901; 87636; 93005; 94640; 94660; 94760; 96374; 96375; 96376; 99291

== ENCOUNTER → 2023-08-24 | Outpatient (CLI) | payer MEDICARE, OTHER ==
[2023-08-24 14:08] LABS: African American GFR (CKD) 63 (>60 ml/min/1.73 sqM); Blood Urea Nitrogen 26 mg/dL (9-20); Non-African American GFR(CKD) 55 (>60 ml/min/1.73 sqM)
--- NOTE | 2023-09-01 08:44 | CT ---
EXAMINATION TYPE: CT angio abd aorta w/Runoff CT DLP: 1652.2 mGycm, Automated exposure control for dose reduction was used. DATE OF EXAM: 08/24/2023 3:32 PM COMPARISON: CT angiogram Thor/abdomen pel aorta 08/31/2022. . CLINICAL INDICATION:Male, 73 years old with history of I71.4 INFRARENAL ABDOMINAL AORTIC ANEURYSM; PH H, f/u AAA, c/o bilateral leg pain TECHNIQUE: Multiple thin slice sub-millimeter images beginning in the inferior chest and extending to the feet were obtained after administration of contrast. 3-D reconstructed images and maximum inten sity projection images were obtained. CT angio abd aorta w/Runoff CT Contrast: Contrast used:100 mL of Isovue 370 without and with IV Contrast, Oral contrast used: None FINDINGS: CTA Abdomen and pelvis: Upper abdominal aorta is patent. Patent celiac axis and SMA with mild atherosclerotic disease. Patent bilateral renal arteries with mild/moderate atherosclerotic disease and mild narrowing proximally. A n aortobiiliac stent graft device is again present and appears intact. Stent graft remains patent how ever there is increased formation of soft tissues peripherally within the stent grafts suggesting kelly que deposition or thrombus along the jerome of the graft compared to previous, which mildly narrows th e lumina without focal critical stenosis seen. Endograft again effectively excludes a fusiform infrarenal AAA. The length of the excluded aneurysm i s about 8.2 cm, versus about 9.2 cm before. Axially also appears slightly decreased in size now 5.5 c m AP by 5 cm transverse, and was 6.3 cm AP by 6.6 cm transverse. Stable appearance of areas of increa sed density on noncontrast imaging, likely calcifications, within the aneurysm sac. There is no evide nce of endograft leak after contrast administration. There is under 50% diameter stenosis within the graft. At the distal end of the left common iliac stent graft there is stenosis which appears under 5 0%. At the distal end of the right common iliac stent graft there is soft tissue which is somewhat li near in appearance and extends slightly into the proximal external iliac artery which may represent s oft plaque versus short segment dissection. While the vessel is patent, there appears to be potential ly significant narrowing here, approximately 75%. Diffuse calcified plaque throughout the internal il iac with multifocal stenoses. CTA Lower extremities: Right: External iliac artery shows mild diffuse mixed disease without significant stenosis. The commo n femoral artery is patent proximally. There is atherosclerotic narrowing of the distal common femora l artery of about 50%. The profunda femoris artery and superficial femoral artery proximally are brenner nt. SFA shows mild scattered disease proximally without significant stenosis. In the mid thigh, the S FA essentially disappears into numerous muscular branches. More distally above the knee there appears to be reconstitution of flow in the SFA with scattered atherosclerotic disease. Popliteal artery is patent. Popliteal bifurcation is patent. The tibioperoneal trunk and anterior tibial artery appear pa tent. Calcific plaque at the distal trunk without hemodynamically significant stenosis. Bifurcation i s patent. The posterior tibial and peroneal arteries are patent proximally. Continuing distally both vessels become somewhat vague and diminutive but it seems at least the posterior tibial is patent to the ankle. Anterior tibial artery is also rather diminutive worsening distally, however appears paten t to the ankle. Left: The distal common iliac artery appears patent with calcific plaque associated with under 50% st enosis. Diffuse calcified plaque throughout the internal iliac with multifocal stenoses. External qi ac is patent with multifocal calcific plaques causing under 50% stenosis. Similar findings in the pro ximal common femoral artery. In the mid to distal common femoral artery there is mixed plaque resulti ng in about 65% diameter stenosis. Vessel is then near normal in size for a short segment before the bifurcation. At the bifurcation there is a stent in the superficial femoral artery which is nonopacif ied consistent with occlusion. The profunda femoris artery is patent. The stent terminates in the mid to distal thigh but the coquille artery remains nonopacified. Distally, there is reconstitution of ingris w via collateral vessels and the popliteal artery is patent with mild disease. Bifurcation is patent. Tibioperoneal trunk and proximal anterior tibial arteries are patent. Dense calcific focus in the pr oximal anterior tibial artery seems to cause high-grade stenosis, and more distally there is faint op acification of the vessel which is no longer clearly seen beyond the mid to distal leg. In the tibial peroneal trunk, there is dense calcification just before the bifurcation with approximately 50% sten osis. The peroneal and posterior tibial arteries are patent proximally. The peroneal artery becomes d iminutive and vague, not clearly opacified beyond the mid to distal leg. The posterior tibial artery is patent across the ankle and into the foot. Non--- CTA findings: LOWER CHEST: No evidence of focal consolidation, pneumothorax or pleural effusion. Mild scarring vers us subsegmental atelectasis. Heart is mildly to moderately enlarged. Moderate coronary arterial calci fications partially seen. Distal end of pacemaker leads partially seen, one of which terminates in th e RV. Prominent pericardial fat noted with relatively large surgical clip noted in the anterior media stinum. No pericardial effusion. There are old abandoned epicardial leads. Partially seen sternotomy wires. Partially seen moderate flame-shaped gynecomastia on the right. LIVER: Calcified nodules again seen consistent with old granulomas. No suggestion of hepatic mass. Re flux of contrast into the hepatic veins suggests an element of right heart insufficiency. GALLBLADDER AND BILE DUCTS: Unremarkable. PANCREAS: Unremarkable. SPLEEN: Scattered calcified granulomas. Otherwise unremarkable. ADRENAL GLANDS: Mildly thickened without evidence of mass.. KIDNEYS AND URETERS: Kidneys enhance symmetrically. Small cyst in the right mid to upper pole. Tiny c ysts suggested in the mid to lower pole. Exophytic from the lower pole is a 5.7 cm simple cyst. On th e left, there are small hypodense nodules in the lower pole up to 1.4 cm in size with the appearance of cysts. No hydronephrosis identified. Vascular calcifications suggested in the renal venkatesh without s izable renal calculus seen. PELVIS BLADDER: Unremarkable REPRODUCTIVE: Mildly enlarged appearing prostate measures 4.6 cm transverse. There are a couple of pa renchymal calcifications inferiorly. ABDOMEN & PELVIS STOMACH AND BOWEL: Mild circumferential thickening of the distal esophagus suggested, this could be f rom esophagitis. Stomach and small bowel are nondistended, no evidence to suggest obstruction. Fatty infiltration of the ileocecal valve. The colon has moderate stool throughout. Some segments are nondi stended and not well evaluated. No clear evidence of an acute focal abnormality. Several descending a nd sigmoid region diverticula without clear evidence of diverticulitis. Radiodensity within the proxi mal sigmoid lumen could be medication tablet or other ingested radiodense material. The appendix appe ars to extend inferiorly from the cecum and does not look inflamed. PERITONEUM: No evidence of pneumoperitoneum or free fluid. VASCULATURE: Arterial findings as above. Veins not well assessed due to the phase of contrast. IVC ap pears of normal caliber. MUSCULOSKELETAL: Generalized osteopenia. Mild/moderate diffuse degenerative changes similar to previo us. No acute osseous abnormality or lytic/blastic lesions seen. Mild bilateral hip arthropathy. Osseous structures of the lower extremities appear intact and normall y aligned. There is mild tricompartmental osteoarthropathy of the knees. Mild degenerative changes of the ankles and visualized feet. LYMPH NODES: No gross evidence for lymphadenopathy. SOFT TISSUE/ABDOMINAL WALL: Moderate sized right inguinal hernia appears slightly larger than before, contains fat and a loop of small bowel without evidence of obstructive change. Tiny fat-containing u mbilical region hernia. Radiodensity seen in the region of the scrotum could be calcification or post operative. IMPRESSION: CTA: * Aortobiiliac stent graft device is again present and appears intact. * Stent graft remains patent however there is increased formation of soft tissues peripherally withi n the grafts suggesting plaque deposition or thrombus, which mildly narrows the lumina without focal critical stenosis seen. * Endograft again effectively excludes a fusiform infrarenal AAA. The excluded aneurysm measures sma ller than before. No evidence of endograft leak. * At the distal end of the left common iliac stent graft there is stenosis which appears under 50%. * At the distal end of the right common iliac stent graft there is soft tissue which is somewhat william ear in appearance and extends slightly into the proximal external iliac artery which may represent so ft plaque versus short segment dissection. While the vessel is patent, there appears to be stenosis o f approximately 75%. * Diffuse atherosclerotic disease throughout the lower extremities, as detailed above. Highlights in clude: * In the mid right thigh, the SFA essentially disappears into numerous muscular branches. More dista lly above the knee there appears to be reconstitution of flow in the SFA with scattered atherosclerot ic disease. Right popliteal artery is patent. * In the left mid to distal common femoral artery there is mixed plaque resulting in about 65% diame ter stenosis. * At the left RN BSN bifurcation, there is a stent beginning in the proximal superficial femoral artery which is nonopacified consistent with occlusion. The profunda femoris artery is patent. The stent te rminates in the left mid to distal thigh but the coquille artery continues to remain nonopacified going distally. * Distally in the left thigh, there is reconstitution of flow in the SFA via collateral vessels. The left popliteal artery is thereafter patent with mild disease. * Below the knees, there is a patent 2-vessel runoff on the RIGHT and 1-vessel runoff on the LEFT. D etails above. Non--- CTA: * Mild to moderate cardiomegaly. Moderate coronary arterial calcifications. Postop changes. * Reflux of contrast into the hepatic veins suggests an element of right heart insufficiency. * Mildly enlarged prostate, please correlate clinically with PSA level. * Mild circumferential thickening of the distal esophagus suggested, could be from esophagitis. * Colonic diverticulosis, without clear evidence of diverticulitis. Moderate sized right inguinal h ernia appears slightly larger than before, contains fat and a loop of small bowel without evidence of obstructive change.
== END | disposition home or self-care (01) ==
LOC: RADCTMAIN 12:45
PROVIDERS: ATTEND Surgery
DX: I71.43 Infrarenal abdominal aortic aneurysm, without rupture (principal); I70.0 Atherosclerosis of aorta; I51.7 Cardiomegaly; I25.10 Atherosclerotic heart disease of native coronary artery without angina pectoris; N40.0 Benign prostatic hyperplasia without lower urinary tract symptoms; K57.30 Diverticulosis of large intestine without perforation or abscess without bleeding; K40.90 Unilateral inguinal hernia, without obstruction or gangrene, not specified as recurrent; K22.89 Other specified disease of esophagus; Z95.828 Presence of other vascular implants and grafts
CPT/HCPCS: 82565; 84520; 75635; 36415; Q9967

== ENCOUNTER 2023-09-16 21:09 | Inpatient (IN) | payer MEDICARE, OTHER ==
--- NOTE | 2023-09-16 21:23 | ED ---
Chest Pain HPI - General Source: EMS Mode of arrival: EMS Limitations: no limitations <Fred Jonas - Last Filed: 09/16/23 21:21> - History of Present Illness MD Complaint: chest pain, other (Shortness of breath) Onset/Timin -: days(s) Onset: during rest Pain Location: left chest, right chest Severity: mild Quality: tightness Consistency: constant Improves With: nothing Anginal Symptoms: dyspnea Treatments Prior to Arrival: none <Dagoberto East - Last Filed: 09/27/23 08:40> - General Chief Complaint: Chest Pain Stated Complaint: chest pain Time Seen by Provider: 09/16/23 21:21 - History of Present Illness Initial Comments: 73-year-old male presented with chief complaint of chest pain that started when he was lying down this evening. Admits to shortness of breath and pleuritic pain. Patient has AICD in place. (Fred Jonas) - Related Data Home Medications Medication Instructions Recorded Confirmed Cyanocobalamin (Vitamin B-12) 1,000 mcg PO DAILY@0800 08/23/22 09/17/23 [Vitamin B-12] Melatonin 6 mg PO HS@209908/23/22 09/17/23 Sennosides/Docusate Sodium [Senna 2 tab PO HS@209908/23/22 09/17/23 Plus 8.6-50 mg Tablet] Sucralfate [Carafate] 1 gm PO BID@0800,1700 08/23/22 09/17/23 Famotidine [Pepcid] 20 mg PO BID@0700,1700 08/31/22 09/17/23 Acetaminophen [Tylenol 8 Hour] 650 mg PO TID@0800,1400,199909/17/23 09/17/23 Aspirin EC [Ecotrin Low Dose] 81 mg PO DAILY@0800 09/17/23 09/17/23 Atorvastatin Calcium [Lipitor] 40 mg PO HS@209909/17/23 09/17/23 Ciclopirox Olamine [Loprox 0.77% 1 applic TOPICAL BID@0700,1900 09/17/23 09/17/23 cream] Escitalopram [Lexapro] 20 mg PO DAILY@0800 09/17/23 09/17/23 Folic Acid 0.4 mg PO DAILY@0800 02/03/24 02/03/24 HYDROcodone/APAP 5-325MG [[place] 1 tab PO Q6HR PRN 09/17/23 09/17/23 5-325] Levothyroxine Sodium [Synthroid] 100 mcg PO DAILY@0700 09/17/23 09/17/23 Mirtazapine 30 mg PO HS@209909/17/23 09/17/23 carvediloL [Coreg] 3.125 mg PO BID@08,199909/17/23 09/17/23 Previous Rx's Medication Instructions Recorded Budesonide-Formot 160-4.5 Mcg 2 puff INHALATION RT-BID 2 Days #1 09/21/23 [Symbicort 160-4.5 Mcg Inhaler] each Dapagliflozin Propanediol [Farxiga] 10 mg PO DAILY 90 Days #90 tab 09/21/23 Ipratropium-Albuterol Nebulize 3 ml INHALATION RT-QID 90 Days 09/21/23 [Duoneb 0.5 mg-3 mg/3 ml Soln] #360 each Losartan [Cozaar] 25 mg PO DAILY 90 Days #90 tab 09/21/23 Nitroglycerin Sl Tabs [Nitrostat] 0.4 mg SUBLINGUAL Q5M PRN 90 Days 09/21/23 #100 tab Ticagrelor [Brilinta] 90 mg PO BID 30 Days #60 tab 09/21/23 Allergies Allergy/AdvReac Type Severity Reaction Status Date / Time morphine Allergy Anaphylaxis Verified 09/17/23 13:19 Penicillins Allergy Swelling Verified 09/17/23 13:19 on entire body Influenza Virus Vaccines AdvReac Unknown Verified 09/17/23 13:19 pneumococcal vaccine AdvReac Unknown Verified 09/17/23 13:19 Review of Systems ROS Other: All systems not noted in ROS Statement are negative. <Fred Jonas - Last Filed: 09/16/23 21:21> ROS Other: All systems not noted in ROS Statement are negative. <Dagoberto East - Last Filed: 09/27/23 08:40> ROS Statement: Those systems with pertinent positive or pertinent negative responses have been documented in the HPI. EKG Findings - EKG Results: EKG: interpreted by ERMD, sinus rhythm (Rate 67 bpm), normal axis - FL, Pacemaker, Normal: Myocardial infarction: inferior FL (old age indeterminate) (Possible old inferior infarct) <GioanumDagoberto - Last Filed: 09/27/23 08:40> Past Medical History Past Medical History: Coronary Artery Disease (CAD), Heart Failure, Dementia, Hyperlipidemia, Hypertension, Seizure Disorder, Syncope, Thyroid Disorder Additional Past Medical History / Comment(s): Ischemic cardiomyopathy, EF 20- 25%, last seizure about 2 yrs ago, hypothyroid.neuropathy "WHEN HE WORKED HE HAD A CRUSHING INJURY -COLLAPSED LUNGS C/T AND HAS CHRONIC BACK PAIN"" pt states he is schizophrenic/bipolar. TRIPLE A REPAIR AUG 2022 History of Any Multi-Drug Resistant Organisms: None Reported Past Surgical History: AICD, Back Surgery, Coronary Bypass/CABG, Heart Catheterization, Heart Catheterization With Stent Additional Past Surgical History / Comment(s): 1995 CABG 4 vessel in [place], has had 2"HEART CATHS/had 2 STENTS after cabg sx.pt stated they were done in [facility]. "sx on tailbone, cortisone injections, devin inguinal hernia repair Past Anesthesia/Blood Transfusion Reactions: No Reported Reaction Date of Last Stent Placement:: 1995 Type of Cardiac Device: AICD Device Placement Date:: 1995 in [facility] Past Psychological History: Anxiety, Depression, Schizoaffective Disorder, Schizophrenia Smoking Status: Current every day smoker Past Alcohol Use History: None Reported, Daily Past Drug Use History: None Reported - Past Family History Mother Family Medical History: Respiratory Disorder Additional Family Medical History / Comment(s): Mother had TB Father Additional Family Medical History / Comment(s): Father was an alcoholic. <Fred Jonas - Last Filed: 09/16/23 21:21> General Exam Limitations: no limitations <Fred Jonas - Last Filed: 09/16/23 21:21> Limitations: no limitations General appearance: alert, in no apparent distress Head exam: Present: atraumatic, normocephalic Eye exam: Present: normal appearance. Absent: scleral icterus, conjunctival injection Neck exam: Present: normal inspection Respiratory exam: Present: normal lung sounds bilaterally. Absent: respiratory distress, wheezes, rales, rhonchi, stridor Cardiovascular Exam: Present: regular rate, normal rhythm, normal heart sounds. Absent: systolic murmur, diastolic murmur, rubs, gallop GI/Abdominal exam: Present: soft. Absent: distended, tenderness, guarding, rebound, rigid, mass Extremities exam: Present: normal inspection, normal capillary refill. Absent: pedal edema, calf tenderness Back exam: Present: normal inspection. Absent: CVA tenderness (R), CVA tenderness (L) Neurological exam: Present: alert Skin exam: Present: warm, dry, intact, normal color. Absent: rash <Dagoberto East - Last Filed: 09/27/23 08:40> - General Exam Comments Initial Comments: Visual Physical Exam Vital signs reviewed General: Well-appearing, nontoxic, no acute distress. Head: Normocephalic, atraumatic Eyes: PERRLA, EOMI ENT: Airway patent Chest: Nonlabored breathing Skin: No visual rash, normal skin tone Neuro: Alert and oriented 3 Musculoskeletal: No gross abnormalities (Fred Jonas) Course Vital Signs 09/16/23 09/17/23 09/17/23 21:12 06:00 07:14 Temperature 98.7 F Pulse Rate 68 53 L 60 Pulse Rate [ Radial] Respiratory 18 18 18 Rate Blood Pressure 139/75 127/76 132/64 Blood Pressure [Right Arm] O2 Sat by Pulse 99 96 97 Oximetry 09/17/23 09/17/23 09/17/23 09:02 10:02 11:36 Temperature Pulse Rate 55 L 55 L 53 L Pulse Rate [ Radial] Respiratory 20 18 18 Rate Blood Pressure 108/43 101/57 108/50 Blood Pressure [Right Arm] O2 Sat by Pulse 96 94 L 94 L Oximetry 09/17/23 09/17/23 09/17/23 11:38 15:00 17:00 Temperature 97.9 F Pulse Rate 57 L Pulse Rate [ 66 Radial] Respiratory 18 20 Rate Blood Pressure 121/54 Blood Pressure 147/73 [Right Arm] O2 Sat by Pulse 95 95 Oximetry Chest Pain MDM <Fred Jonas - Last Filed: 09/16/23 21:21> <Dagoberto East - Last Filed: 09/27/23 08:40> - MDM I performed the quick note portion of this visit electronically signed Fred Jonas PA-C (Fred Jonas) The patient had chest x-ray that I interpreted as negative for acute infiltrate, pneumothorax, congestive heart failure Was pt. sent in by a medical professional or institution (PILO Cruz, ART COORDINATOR, urgent care, hospital, or [place] health care facility...) When possible be specific @ -[No] Did you speak to anyone other than the patient for history (EMS, parent, family, police, friend...)? What history was obtained from this source @ -[No] Did you review nursing and triage notes (agree or disagree)? Why? @ -[I reviewed and agree with nursing and triage notes] Were old charts reviewed (outside hosp., previous admission, EMS record, old EKG, old radiological studies, urgent care reports/EKG's, [place] health care facility records)? Report findings @ -[No old charts were reviewed] Differential Diagnosis (chest pain, altered mental status, abdominal pain women, abdominal pain men, vaginal bleeding, weakness, fever, dyspnea, syncope, headache, dizziness, GI bleed, back pain, seizure, CVA, palpatations, mental health, musculoskeletal)? @ -[Differential Dyspnea: Coronary syndrome, arrhythmia, tamponade, asthma, COPD, pulmonary embolism, pneumonia, pneumothorax, pulmonary effusion, anaphylaxis, diabetic ketoacidosis, flailed chest, pulmonary contusion, diaphragmatic rupture, anemia, neuromuscular, this is not meant to be an all-inclusive list. EKG interpreted by me (3pts min.). @ -[I interpreted as above] X-rays interpreted by me (1pt min.). @ -[I interpreted as above CT interpreted by me (1pt min.). @ -[None done] U/S interpreted by me (1pt. min.). @ -[None done] What testing was considered but not performed or refused? (CT, X-rays, U/S, labs)? Why? @ -[None] What meds were considered but not given or refused? Why? @ -[None] Did you discuss the management of the patient with other professionals (professionals i.e. PILO Cruz, ART COORDINATOR, lab, RT, psych nurse, social security assessor, [employer], teacher, chief business officer, hospice case manager)? Give summary @ -[Case discussed with the admitting physician and treatment recommendations are incorporated Was smoking cessation discussed for >3mins.? @ -[No] Was critical care preformed (if so, how long)? @ -[No] Were there social determinants of health that impacted care today? How? (Homelessness, low income, unemployed, alcoholism, drug addiction, transportation, low edu. Level, literacy, decrease access to med. care, halfway, rehab)? @ -[No] Was there de-escalation of care discussed even if they declined (Discuss DNR or withdrawal of care, Hospice)? DNR status @ -[No] What co-morbidities impacted this encounter? (DM, HTN, Smoking, COPD, CAD, Cancer, CVA, ARF, Chemo, Hep., AIDS, mental health diagnosis, sleep apnea, mo rbid obesity)? @ -[COPD Was patient admitted / discharged? Hospital course, mention meds given and route, prescriptions, significant lab abnormalities, going to OR and other pertinent info. @ -[This patient is a 73-year-old man who arrives to have evaluation for dyspnea. The physical exam and workup most consistent with exacerbation of COPD. The patient has had nebulized medications with only small amount of improvement, patient will be admitted for further evaluation and treatment. Undiagnosed new problem with uncertain prognosis? @ -[No] Drug Therapy requiring intensive monitoring for toxicity (Heparin, Nitro, Insulin, Cardizem)? @ -[No] Were any procedures done? @ -[No] Diagnosis/symptom? @ -[Acute dyspnea Acute exacerbation of COPD Acute, or Chronic, or Acute on Chronic? @ -[Acute on chronic Uncomplicated (without systemic symptoms) or Complicated (systemic symptoms)? @ -[Uncomplicated Side effects of treatment? @ -[No] Exacerbation, Progression, or Severe Exacerbation? @ -[Exacerbation Poses a threat to life or bodily function? How? (Chest pain, USA, FL, pneumonia, PE, COPD, DKA, ARF, appy, cholecystitis, CVA, Diverticulitis, Homicidal, Suicidal, threat to staff... and all critical care pts) @ -[Yes COPD may worsen to respiratory failure and (Dagoberto East) Disposition <Fred Jonas - Last Filed: 09/16/23 21:21> <Dagoberto East - Last Filed: 09/27/23 08:40> Clinical Impression: COPD with exacerbation, Dyspnea Disposition: ADMITTED IP TO THIS HOSP Condition: Fair
[2023-09-16 22:01] LABS: Anisocytosis Slight; Basophils # (A) 0.1 k/uL (0-0.2); Basophils % (A) 1 %; Eosinophils # (A) 0.4 k/uL (0-0.7); Eosinophils % (A) 5 %; HCT 42.1 % (39.0-53.0); HGB 14.1 gm/dL (13.0-17.5); Lymphocytes # (A) 3.7 k/uL (1.0-4.8); Lymphocytes % (A) 47 %; MCH 29.6 pg (25.0-35.0); MCHC 33.5 g/dL (31.0-37.0); MCV 88.5 fL (80.0-100.0); Mean Platelet Volume 9.6; Monocytes # (A) 0.5 k/uL (0-1.0); Monocytes % (A) 6 %; Neutrophils % (A) 39 %; Platelet Count 163 k/uL (150-450); RBC 4.76 m/uL (4.30-5.90); RDW 16.2 % (11.5-15.5); WBC 7.8 k/uL (3.8-10.6)
[2023-09-16 22:18] LABS: INR 1.1 (<1.2); Partial Thromboplastin Time 25.7 sec (22.0-30.0); Prothrombin Time 12.2 sec (10.0-12.5)
[2023-09-16 22:31] LABS: ALT 21 U/L (4-49); AST 27 U/L (17-59); African American GFR (CKD) 77 (>60 ml/min/1.73 sqM); Alkaline Phosphatase 86 U/L (38-126); Anion Gap 7 mmol/L; Blood Urea Nitrogen 28 mg/dL (9-20); Carbon Dioxide 24 mmol/L (22-30); Chloride 107 mmol/L (98-107); Glucose 102 mg/dL (74-99); Magnesium 1.8 mg/dL (1.6-2.3); Non-African American GFR(CKD) 66 (>60 ml/min/1.73 sqM); Potassium 4.5 mmol/L (3.5-5.1); Sodium 138 mmol/L (137-145); Total Bilirubin 0.3 mg/dL (0.2-1.3)
--- NOTE | 2023-09-16 22:39 | XR ---
EXAMINATION TYPE: XR chest 2V DATE OF EXAM: 09/16/2023 COMPARISON: Chest x-ray August 31, 2022 HISTORY: Chest pain TECHNIQUE: Frontal and lateral views of the chest are obtained. FINDINGS: Overlying sternal wires and mediastinal clips are redemonstrated. There is no suspicious ne w focal air space opacity, pleural effusion, or pneumothorax seen. There is mild cardiomegaly with r ight sided pacemaker/defibrillator redemonstrated. The osseous structures are demineralized. IMPRESSION: Mild Cardiomegaly without acute pulmonary process. No significant change from prior.
[2023-09-17] MEDS ORDERED: NITROGLYCERIN SL TABS 0.4 MG TAB SUBLINGUAL PRN (07:36)
[2023-09-17] MEDS ORDERED: IPRATROPIUM-ALBUTEROL 3 ML NEB INHALATION PRN (09:05)
--- NOTE | 2023-09-17 10:53 | CT ---
EXAMINATION TYPE: CT chest wo con DATE OF EXAM: 09/17/2023 COMPARISON: 08/24/2023 HISTORY: Chest pain CT DLP: 296.[address] of the chest was performed with lung and mediastinal window settings submitted. The la ck of contrast limits evaluation of the vascular, mediastinal and parenchymal structures including th e upper abdomen. LUNGS: The lungs are clear and free of infiltrate. No atelectasis. Left apical emphysematous bulla. Scattered subpleural parenchymal scarring. No pulmonary nodule or mass is detected. No pleural effus ion. No CT evidence of interstitial lung disease. MEDIASTINUM/DIVYA: Thoracic aorta is of normal caliber with limited evaluation given lack of contrast . Cardiomegaly with previous changes of CABG. No evidence for mediastinal mass. No lymph nodes grea ter than 1cm. UPPER ABDOMEN: Granulomas of the spleen and liver. OTHER: No significant other abnormality. IMPRESSION: 1. No acute process seen.
--- NOTE | 2023-09-17 14:18 | CA ---
Transthoracic Echo Report Name: Magaly Morales Age: 73 Gender: M : 1950 Exam Date: 09/17/2023 11:24 Exam Location: [facility] Ht (in): 66 Wt (lb): 150 Ordering Physician: Raffaele Verdin MD Attending/Referring Phys: Sulky Driver Rosa Isela Brown RDCS Procedure CPT: Indications: CAD Cardiac Hx: Technical Quality: Fair Contrast 1: Total Dose (mL): Contrast 2: Total Dose (mL): MEASUREMENTS (Male / Female) Normal Values 2D ECHO LV Diastolic Diameter PLAX 4.8 cm 4.2 - 5.9 / 3.9 - 5.3 cm LV Systolic Diameter PLAX 3.9 cm IVS Diastolic Thickness 1.1 cm 0.6 - 1.0 / 0.6 - 0.9 cm LVPW Diastolic Thickness 1.4 cm 0.6 - 1.0 / 0.6 - 0.9 cm LV Relative Wall Thickness 0.5 RV Internal Dim ED PLAX 3.5 cm LV Diastolic Volume MOD BP 126.8 cm??? 67 - 155 / 56 - 104 cm??? LV Systolic Volume MOD BP 93.4 cm??? 22 - 58 / 19 - 49 cm??? LV Ejection Fraction MOD BP 26.4 % >= 55 % LV Cardiac Index MOD BP 992.3 cm???/min???m??? LV Diastolic Volume MOD 4C 136.2 cm??? LV Systolic Volume MOD 4C 95.4 cm??? LV Ejection Fraction MOD 4C 29.9 % LV Cardiac Index MOD 4C 1207.2 cm???/min???m??? LV Diastolic Length 4C 8.2 cm LV Systolic Length 4C 6.8 cm LV Diastolic Volume MOD 2C 111.6 cm??? LV Systolic Volume MOD 2C 89.5 cm??? LV Ejection Fraction MOD 2C 19.8 % LV Cardiac Index MOD 2C 654.1 cm???/min???m??? LV Diastolic Length 2C 7.7 cm LV Systolic Length 2C 7.0 cm LA Volume 120.0 cm??? 18 - 58 / 22 - 52 cm??? LA Volume Index 67.1 cm???/m??? 16 - 28 cm???/m??? M-MODE Aortic Root Diameter MM 3.3 cm LA Systolic Diameter MM 5.2 cm LA Ao Ratio MM 1.6 AV Cusp Separation MM 2.2 cm DOPPLER AV Peak Velocity 100.9 cm/s AV Peak Gradient 4.1 mmHg AV Mean Velocity 69.8 cm/s AV Mean Gradient 2.1 mmHg AV Velocity Time Integral 19.7 cm LVOT Peak Velocity 52.5 cm/s LVOT Peak Gradient 1.1 mmHg LVOT Velocity Time Integral 11.3 cm MV Area PHT 3.4 cm??? Mitral E Point Velocity 66.3 cm/s Mitral A Point Velocity 0.5 cm/s Mitral E to A Ratio 145.3 MV Deceleration Time 220.8 ms MV E' Velocity 4.8 cm/s Mitral E to MV E' Ratio 13.8 TR Peak Velocity 193.7 cm/s TR Peak Gradient 15.0 mmHg Right Ventricular Systolic Press 20.0 mmHg FINDINGS Left Ventricle Severely increased left ventricular systolic volume. Severely decreased left ventricular ejection fraction. Moderately increased left ventricular wall thickness. Reduced global left ventricular systolic function. Left ventricular ejection fraction is estimated at 25-30 %. Right Ventricle Right ventricular dilatation. Right ventricular systolic pressure within normal limits. Right Atrium Normal right atrial size. Catheter/pacemaker wire in the right atrial cavity. Left Atrium Severely increased left atrial volume. Mildly increased left atrial area. Mitral Valve Structurally normal mitral valve. Mitral valve thickened. Moderate mitral annular calcification. Zqvlkers-[id number] mitral regurgitation. Aortic Valve Trileaflet aortic valve. Thickened aortic valve without stenosis. No aortic regurgitation. Tricuspid Valve Structurally normal tricuspid valve. Mild tricuspid regurgitation. Pulmonic Valve Trace pulmonic regurgitation. Pericardium No pericardial effusion. Aorta Normal size aortic root and proximal ascending aorta. CONCLUSIONS Left ventricular ejection fraction 25-30% Moderate increased left ventricular wall thickness Moderate mitral annular calcification Moderate to severe mitral regurgitation Mild tricuspid regurgitation Previewed by: Dr. Mele Smith DO (Electronically Signed) Final Date: 17 September 2023 14:17
[2023-09-17] MEDS ORDERED: SILDENAFIL 20 MG TAB PO SCH (16:00)
[2023-09-17] MEDS ORDERED: FAMOTIDINE 20 MG TAB PO SCH (17:00)
[2023-09-17] MEDS: FUROSEMIDE 20 MG TAB PO SCH (17:01)
[2023-09-17] MEDS: SUCRALFATE 1 GM TAB PO SCH (17:01)
[2023-09-17] MEDS: carvediloL 3.125 MG TAB PO SCH (17:01)
--- NOTE | 2023-09-17 18:58 | HP ---
HISTORY AND PHYSICAL HISTORY OF PRESENT ILLNESS: This is a 73-year-old white male, says he has been off all his breathing treatments at home, became severely dizzy, lightheaded, and shortness of breath. He came to the hospital at that point, shortness of breath and pleuritic pain, AICD in place. HOME MEDS: Reviewed. He is noncompliant with them. Including Lasix, Coreg, Synthroid, Lexapro, Lipitor, DuoNeb, Revatio, Zestril. REVIEW OF SYSTEMS: A 14-point review of systems otherwise negative. EKG in sinus rhythm. PAST MEDICAL HISTORY: Coronary artery disease, heart failure, dementia, dyslipidemia, hypertension, seizure disorder, syncope, thyroid disorder, CABG in [place] 1995, history of back surgery, AICD, CABG surgery, heart catheterization, stents. FAMILY HISTORY: Mother of TB. Father is alcoholic. PHYSICAL EXAMINATION: VITAL SIGNS: Temp 98.7, pulse 60s to 70s, blood pressure 120s to 130s/70s, respiratory rate is 18. CARDIOVASCULAR: S1, S2. LUNGS: Transmitted upper sounds. GI: Soft. HEMATOLOGY: Negative for Homans. NEUROLOGIC: Cranial nerves are intact. OPHTHALMOLOGY: Pupils are equal, round, and reactive. PLANS: Started his breathing treatments. Check out echos, troponins, serial troponins, IV steroids, updrafts. Prognosis is guarded. PT/OT. LEIF / JOE: [id number] /
[2023-09-17] MEDS: MELATONIN 3 MG TABLET PO SCH (20:15)
[2023-09-17] MEDS: SENNOSIDES-DOCUSATE SODIUM 1 EACH TAB PO SCH (20:15)
[2023-09-17] MEDS: DOXYCYCLINE 100 MG in SODIUM CHLORIDE 0.9% 100 ML IVPB SCH (20:15)
[2023-09-17] MEDS: ATORVASTATIN 40 MG TAB PO SCH (20:15)
[2023-09-17] MEDS: KETOROLAC 15 MG/ML 1 ML VIAL IVP PRN (21:23)
--- NOTE | 2023-09-17 23:14 | US ---
EXAMINATION TYPE: US venous doppler duplex LE BI DATE OF EXAM: 09/17/2023 10:23 PM COMPARISON: Prior bilateral venous ultrasound May 05, 2019 CLINICAL INDICATION: Male, 73 years old with history of elevated d-dimer; elevated D dimer SIDE PERFORMED: Bilateral TECHNIQUE: The lower extremity deep venous system is examined utilizing real time linear array sonog alejandra with graded compression, doppler sonography and color-flow sonography. VESSELS IMAGED: Common Femoral Vein Deep Femoral Vein Greater Saphenous Vein * Femoral Vein Popliteal Vein Small Saphenous Vein * Proximal Calf Veins (* superficial vessels) Right Leg: Negative for DVT Left Leg: Negative for DVT Grayscale, color doppler, spectral doppler imaging performed of the deep veins of the bilateral lower extremities. There is normal flow, compressibility, vascular waveforms. IMPRESSION: No ultrasound evidence for acute DVT in either lower extremity. No significant change fr om prior.
[2023-09-17] MEDS: IPRATROPIUM-ALBUTEROL 3 ML NEB INHALATION PRN (23:32)
[2023-09-18] MEDS: methylPREDNISolone SOD SUCCI 40 MG/ML 1 ML VIAL IV SCH (00:10)
--- NOTE | 2023-09-18 00:27 | CT ---
EXAMINATION TYPE: CT angio chest DATE OF EXAM: 09/18/2023 COMPARISON: Prior CT chest September 17, 2023 HISTORY: Elevated D-dimer. CT DLP: 286.4 mGycm. Automated Exposure Control for Dose Reduction was Utilized. CONTRAST: CTA scan of the thorax is performed with IV Contrast, patient injected with 100 ml mL of Isovue 370, pulmonary embolism protocol. MIP Images are created on CT scanner and reviewed. FINDINGS: LUNGS: There is a small thin-walled cyst medially in the left upper lung redemonstrated on axial imag e 25. No suspicious new focal consolidation or groundglass opacity. No pleural effusion or pneumothor ax seen bilaterally. MEDIASTINUM: There is satisfactory enhancement of the pulmonary artery and its branches, there is no CT evidence for pulmonary embolism. Mild cardiomegaly is redemonstrated. Pacemaker/defibrillator rede monstrated. There are a few prominent but subcentimeter lymph nodes in the prevascular space and in t he paratracheal region redemonstrated. There are more prominent partially calcified AP window and lef t hilar lymph nodes redemonstrated. No pericardial effusion. Moderate to severe left atrial dilatatio n and moderate left ventricular dilatation redemonstrated. Post-CABG changes with sternal wires and m ediastinal clips is redemonstrated. OTHER: There are punctate ossifications throughout the spleen consistent with product of old granulom atous disease redemonstrated. Bilateral gynecomastia again seen. IMPRESSION: 1. No CT evidence for acute pulmonary embolism. 2. Mild cardiomegaly redemonstrated without suspicious new acute pulmonary process.
[2023-09-18] MEDS: FAMOTIDINE 20 MG TAB PO SCH (06:07)
[2023-09-18] MEDS: LEVOTHYROXINE 100 MCG TAB PO SCH (06:07)
[2023-09-18] MEDS ORDERED: BUDESONIDE 1 MG/2 ML NEBU INHALATION SCH ×2 (08:00)
[2023-09-18] MEDS ORDERED: IPRATROPIUM-ALBUTEROL 3 ML NEB INHALATION SCH ×2 (08:00)
--- NOTE | 2023-09-18 08:40 | P.CNPUL ---
History of Present Illness Consult date: 09/18/23 Requesting physician: Raffaele Verdin Reason for consult: dyspnea, cough, chest pain, COPD Chief complaint: Chest pain, shortness of breath. History of present illness: Pulmonary consult dated September 18, 2023. 73-year-old male who is seen today, in room 630. The patient came to the emergency department on September 16, complaining of chest pain. He was brought in by EMS. The patient resides in an assisted living home. He does use oxygen, at home, as needed. The patient does have a history of 40 years of tobacco use, but does not smoke cigarettes currently. Used to smoke 1 pack a day. He states that he smokes cigars now, but does not inhale them. The patient's primary complaint was chest pain. When asked, the patient also had shortness of breath, cough, and occasional phlegm production. The patient had a number of different radiographic studies including a chest x-ray that was normal, a CAT scan that was negative, a CTA that was negative, and Dopplers of the lower extremities that were negative. I suspect the patient actually had a COPD exacerbation, which is why he is in the hospital. His past medical history includes coronary disease, heart failure, dementia, hyperlipidemia, hypertension, seizure disorder, syncope, hypothyroidism, previous bypass surgery, AICD placement, heart catheterization with stent, among other things. White count 7.8, hemoglobin 14.1, hematocrit 42.1, platelet count 163,000. Coagulation studies are normal. D-dimer was 4.28. Sodium 138, potassium 4.5, chlorides 107, CO2 24, BUN 28, and creatinine 1.11. Glucose is 102. Troponins were negative x 3. EKG shows disconcordant T waves in 2 3 and aVF. The patient is currently not having any chest pain. He does feel better. Review of Systems REVIEW OF SYSTEMS: CONSTITUTIONAL: [Negative.] NEUROLOGIC: [ Negative.] HEENT: [ Negative.] CARDIAC: Chest pain. PULMONARY: Hartness of breath, cough, chest congestion, and occasional phlegm production. GI: [Negative.] : [Negative.] RHEUMATOLOGIC: [ Negative.] IMMUNOLOGIC: [ Negative.] ENDOCRINE: [Negative. ] DERMATOLOGIC: [Negative.] Past Medical History Past Medical History: Coronary Artery Disease (CAD), Heart Failure, Dementia, Hyperlipidemia, Hypertension, Seizure Disorder, Syncope, Thyroid Disorder Additional Past Medical History / Comment(s): Ischemic cardiomyopathy, EF 20- 25%, last seizure about 2 yrs ago, hypothyroid.neuropathy "WHEN HE WORKED HE HAD A CRUSHING INJURY -COLLAPSED LUNGS C/T AND HAS CHRONIC BACK PAIN"" pt states he is schizophrenic/bipolar. TRIPLE A REPAIR AUG 2022 History of Any Multi-Drug Resistant Organisms: None Reported Past Surgical History: AICD, Back Surgery, Coronary Bypass/CABG, Heart Catheterization, Heart Catheterization With Stent Additional Past Surgical History / Comment(s): 1995 CABG 4 vessel in [place], has had 2"HEART CATHS/had 2 STENTS after cabg sx.pt stated they were done in [facility]. "sx on tailbone, cortisone injections, devin inguinal hernia repair Past Anesthesia/Blood Transfusion Reactions: No Reported Reaction Date of Last Stent Placement:: 1995 Type of Cardiac Device: AICD Device Placement Date:: [address] [facility] Past Psychological History: Anxiety, Depression, Schizoaffective Disorder, Schizophrenia Additional Psychological History / Comment(s): . Smoking Status: Current every day smoker Past Alcohol Use History: None Reported, Daily Additional Past Alcohol Use History / Comment(s): . Past Drug Use History: None Reported Additional Drug Use History / Comment(s): Pt states he smokes marijuana on occasion. - Past Family History Mother Family Medical History: Respiratory Disorder Additional Family Medical History / Comment(s): Mother had TB Father Additional Family Medical History / Comment(s): Father was an alcoholic. Medications and Allergies Home Medications Medication Instructions Recorded Confirmed Type Cyanocobalamin (Vitamin B-12) 1,000 mcg PO DAILY@0800 08/23/22 09/17/23 History [Vitamin B-12] Melatonin 6 mg PO HS@209908/23/22 09/17/23 History Sennosides/Docusate Sodium [Senna 2 tab PO HS@209908/23/22 09/17/23 History Plus 8.6-50 mg Tablet] Sucralfate [Carafate] 1 gm PO BID@0800,1700 08/23/22 09/17/23 History Famotidine [Pepcid] 20 mg PO BID@0700,1700 08/31/22 09/17/23 History Acetaminophen [Tylenol 8 Hour] 650 mg PO TID@0800,1400,199909/17/23 09/17/23 History Aspirin EC [Ecotrin Low Dose] 81 mg PO DAILY@0800 09/17/23 09/17/23 History Atorvastatin Calcium [Lipitor] 40 mg PO HS@209909/17/23 09/17/23 History Ciclopirox Olamine [Loprox 0.77% 1 applic TOPICAL BID@0700,1900 09/17/23 09/17/23 History cream] Escitalopram [Lexapro] 20 mg PO DAILY@0800 09/17/23 09/17/23 History Folic Acid 0.4 mg PO DAILY@0800 09/17/23 09/17/23 History Furosemide [Lasix] 20 mg PO DAILY@69909/17/23 09/17/23 History HYDROcodone/APAP 5-325MG [[place] 1 tab PO Q6HR PRN 09/17/23 09/17/23 History 5-325] Levothyroxine Sodium [Synthroid] 100 mcg PO DAILY@0709/17/23 09/17/23 History Mirtazapine 30 mg PO HS@209909/17/23 09/17/23 History carvediloL [Coreg] 3.125 mg PO BID@0800,199909/17/23 09/17/23 History traMADol HCL/ACETAMINOPHEN 1 tab PO BID PRN 09/17/23 09/17/23 History [Ultracet 37.5-325] Allergies Allergy/AdvReac Type Severity Reaction Status Date / Time morphine Allergy Anaphylaxis Verified 09/17/23 13:19 Penicillins Allergy Swelling Verified 09/17/23 13:19 on entire body Influenza Virus Vaccines AdvReac Unknown Verified 09/17/23 13:19 pneumococcal vaccine AdvReac Unknown Verified 09/17/23 13:19 Physical Exam Osteopathic Statement: *. No significant issues noted on an osteopathic structural exam other than those noted in the History and Physical/Consult. Vitals: Vital Signs Temp Pulse Pulse Pulse Resp BP BP 09/18/23 00:10 96.0 F L 65 16 137/78 09/17/23 23:42 60 09/17/23 23:34 60 09/17/23 19:48 97.8 F 60 16 103/63 09/17/23 17:00 57 L 20 121/54 09/17/23 15:00 97.9 F 66 18 09/17/23 11:38 09/17/23 11:36 53 L 18 108/50 09/17/23 10:02 55 L 18 101/57 09/17/23 09:02 55 L 20 108/43 BP Pulse Ox 09/18/23 00:10 100 09/17/23 23:42 09/17/23 23:34 09/17/23 19:48 94 L 09/17/23 17:00 95 09/17/23 15:00 147/73 09/17/23 11:38 95 09/17/23 11:36 94 L 09/17/23 10:02 94 L 09/17/23 09:02 96 Intake and Output 09/17/23 09/18/23 09/18/23 22:59 06:59 14:59 Intake Total 120 Output Total 300 Balance -180 Intake: Oral 120 Output: Urine 300 Other: # Voids 1 No acute distress, oriented 3. No audible wheezing, use of accessory muscles, or conversational dyspnea. HEENT examination is grossly unremarkable. Mucous membranes are moist. No oral lesions. Neck supple. Full range of motion. No adenopathy thyromegaly or neck vein distention. Cardiovascular examination reveals regular rhythm rate. S1-S2 normal. No S3 or S4. No discernible murmur noted. Heart rate 82 bpm. Lungs reveal mostly clear breath sounds. Minimal rhonchi. No wheezes or crackles. Breath sounds equal bilaterally. 2 L saturation is 98%. Abdomen soft bowel sounds are heard. No masses or tenderness. Extremities are intact. No cyanosis clubbing or edema. Skin is without rash or lesion. Neurologic examination is brief but nonfocal. Results - Laboratory Findings CBC and BMP: 09/16/23 21:33 09/16/23 22:15 PT/INR, D-dimer PT 12.2 sec (10.0-12.5) 09/16/23: INR 1.1 (<1.2) 09/16/23 21:33 D-Dimer 4.28 mg/L FEU (<0.60) H 09/17/23 10:45 Abnormal lab findings: Abnormal Labs 09/16/23 09/16/23 09/17/23 21:33 22:15 10:45 RDW 16.2 H D-Dimer 4.28 H BUN 28 H Glucose 102 H - Diagnostic Findings Chest x-ray: image reviewed CT scan - chest: image reviewed U/S of Legs: image reviewed Assessment and Plan Assessment: Shortness of breath, chest pain, most likely related to a COPD exacerbation. History of ongoing tobacco use, primarily cigars, although the patient has 40 years of tobacco use, at 1 to 2 packs a day. Probable COPD, with chronic home oxygen use. History of ischemic cardiomyopathy, with an ejection fraction of 20 to 25%. History of CAD, with previous bypass grafting, and stent placement. Status post AICD placement. History of CHF. History of hypertension. History of hyperlipidemia. History of seizure disorder. History of hypothyroidism. Multiple other medical problems and comorbidities. Plan: Plan dated September 18, 2023. The patient is seen today in room 630. He is currently on 2 L of oxygen. The patient had a number of radiographic studies here including a chest x-ray, that was normal. In addition, he had a CAT scan, CTA, and Dopplers of the lower extremities, all of which were normal. Clinically, the patient appears to be relatively stable. His budesonide is switched to Symbicort, 160/4.5, 2 puffs twice a day, and a Solu-Medrol converted to prednisone 30 mg a day. Labs, x- rays, and medications are reviewed. The patient's overall prognosis remains guarded. The patient is a very poor historian. He resides in assisted living. Time with Patient: Greater than 30
[2023-09-18] MEDS ORDERED: ASPIRIN 325 MG TAB PO SCH (09:00)
[2023-09-18] MEDS ORDERED: NICOTINE 21MG/24HR PATCH TRANSDERM SCH (09:00)
[2023-09-18] MEDS: predniSONE 10 MG TAB PO SCH (09:30)
[2023-09-18] MEDS: ESCITALOPRAM 20 MG TAB PO SCH (09:30)
[2023-09-18] MEDS: ASPIRIN 81 MG PO SCH (09:30)
[2023-09-18] MEDS: CYANOCOBALAMIN 500 MCG TAB PO SCH (09:30)
[2023-09-18] MEDS: IPRATROPIUM-ALBUTEROL 3 ML NEB INHALATION SCH (09:58)
[2023-09-18] MEDS: SYMBICORT 160-4.5 MCG INHALER INHALATION SCH (09:58)
[2023-09-18 11:06] LABS: Chol/HDL Ratio 3.39 Ratio; LDL Cholesterol,Calculated 28.1 mg/dL (0.0-131.0)
--- NOTE | 2023-09-18 11:50 | P.GSCN ---
History of Present Illness Consult date: 09/18/23 Reason for Consult: Severe mitral valve regurgitation Requesting physician: Raffaele Verdin History of present illness: This is a 73-year-old gentleman who follows on an outpatient basis with Dr. Raffaele Verdin for his primary care service. He has a past medical history significant for hypertension, hyperlipidemia, chronic systolic congestive heart failure, ischemic cardiomyopathy with an ejection fraction of 25 to 30% and a history of AICD placement, coronary artery disease status post four-vessel coronary artery bypass grafting surgery in 1995 and subsequent stents, history of syncope, thyroid disorder, dementia, schizophrenia/bipolar disorder, chronic back pain, COPD with home oxygen use of 2 L nasal cannula and chronic ongoing tobacco dependence, quit smoking cigarettes 1 year ago and now smokes cigars. He presented to the emergency department here at [facility] on September 16, 2023 with complaints of acute onset of shortness of breath, felt like he had an inflamed chest and complaints of lightheadedness. The patient does live at an assisted living and reports that he does walk with a cane. The patient denies any fever, chills, nausea, vomiting, headache, constipation, diarrhea, hematemesis, hemoptysis, visual disturbances, bleeding disorders or rash. Laboratory results on admission showed a WBC count of 7.8, hemoglobin 14.1, hematocrit 42.1, platelets 163, PT 12.2, INR 1.1, PTT 25.7, sodium 138, potassium 4.5, BUN 28, creatinine 1.11, glucose 102, and serial troponins were negative. A chest x-ray was completed which showed mild cardiomegaly without acute pulmonary process and no significant change from prior exams. Subsequently due to the patient's acute onset of shortness of breath a CT scan without contrast was completed of the chest which showed no acute process seen. For further evaluation the patient underwent a transthoracic 2D echocardiogram which demonstrated severely increased left ventricular systolic volume, severely decreased left ventricular ejection fraction, reduced global left ventricular systolic function with an ejection fraction of 25 to 30%, moderate mitral annular calcification, moderate to severe mitral valve regurgitation, mild tri cuspid valve regurgitation, trace pulmonic valve regurgitation, no pericardial effusion and normal size aortic root and proximal ascending aorta. Venous Dopplers were completed to his bilateral lower extremities which showed negative for DVT. A CTA of the chest was completed on September 17, [address] evidence for acute pulmonary embolism, mild cardiomegaly without suspicious new acute pulmonary process. Subsequently, due to the findings of moderate to severe mitral valve regurgitation on his transthoracic 2D echocardiogram a consult was placed to cardiothoracic surgery for further evaluation and treatment recommendations. Patient is hemodynamically stable at this time, and reports his breathing has much improved since admission and denies any further complaints of an " inflamed chest". Review of Systems A 14 point review of systems was completed and was negative except as mentioned in the HPI. Past Medical History Past Medical History: Coronary Artery Disease (CAD), Heart Failure, COPD, Dementia, Hyperlipidemia, Hypertension, Myocardial Infarction ([place]), Seizure Disorder, Syncope, Thyroid Disorder Additional Past Medical History / Comment(s): Ischemic cardiomyopathy, EF 20- 25%, last seizure about 2 yrs ago, hypothyroid.neuropathy "WHEN HE WORKED HE HAD A CRUSHING INJURY -COLLAPSED LUNGS C/T AND HAS CHRONIC BACK PAIN"" pt states he is schizophrenic/bipolar. TRIPLE A REPAIR AUG 2022 History of Any Multi-Drug Resistant Organisms: None Reported Past Surgical History: AICD, Back Surgery, Coronary Bypass/CABG, Heart Laura terization, Heart Catheterization With Stent Additional Past Surgical History / Comment(s): 1995 CABG 4 vessel in [place], has had 2"HEART CATHS/had 2 STENTS after cabg sx.pt stated they were done in [facility]. "sx on tailbone, cortisone injections, devin inguinal hernia repair Past Anesthesia/Blood Transfusion Reactions: No Reported Reaction Date of Last Stent Placement:: 1995 Type of Cardiac Device: AICD Device Placement Date:: [address] [facility] Past Psychological History: Anxiety, Depression, Schizoaffective Disorder, Schizophrenia Additional Psychological History / Comment(s): . Smoking Status: Current every day smoker Past Alcohol Use History: None Reported Additional Past Alcohol Use History / Comment(s): . Past Drug Use History: None Reported Additional Drug Use History / Comment(s): Pt states he smokes marijuana on occasion. - Past Family History Mother Family Medical History: Respiratory Disorder Additional Family Medical History / Comment(s): Mother had TB Father Additional Family Medical History / Comment(s): Father was an alcoholic, was killed in a motor vehicle accident Medications and Allergies Home Medications Medication Instructions Recorded Confirmed Type Cyanocobalamin (Vitamin B-12) 1,000 mcg PO DAILY@0800 01/09/23 02/03/24 History [Vitamin B-12] Melatonin 6 mg PO HS@209908/23/22 09/17/23 History Sennosides/Docusate Sodium [Senna 2 tab PO HS@209908/23/22 09/17/23 History Plus 8.6-50 mg Tablet] Sucralfate [Carafate] 1 gm PO BID@0800,1700 08/23/22 09/17/23 History Famotidine [Pepcid] 20 mg PO BID@0700,1700 08/31/22 09/17/23 History Acetaminophen [Tylenol 8 Hour] 650 mg PO TID@0800,1399,199909/17/23 09/17/23 History Aspirin EC [Ecotrin Low Dose] 81 mg PO DAILY@79909/17/23 09/17/23 History Atorvastatin Calcium [Lipitor] 40 mg PO HS@209909/17/23 09/17/23 History Ciclopirox Olamine [Loprox 0.77% 1 applic TOPICAL BID@0700,1900 09/17/23 09/17/23 History cream] Escitalopram [Lexapro] 20 mg PO DAILY@79909/17/23 09/17/23 History Folic Acid 0.4 mg PO DAILY@79909/17/23 09/17/23 History Furosemide [Lasix] 20 mg PO DAILY@69909/17/23 09/17/23 History HYDROcodone/APAP 5-325MG [[place] 1 tab PO Q6HR PRN 09/17/23 09/17/23 History 5-325] Levothyroxine Sodium [Synthroid] 100 mcg PO DAILY@69909/17/23 09/17/23 History Mirtazapine 30 mg PO HS@209909/17/23 09/17/23 History carvediloL [Coreg] 3.125 mg PO BID@799,199909/17/23 09/17/23 History traMADol HCL/ACETAMINOPHEN 1 tab PO BID PRN 09/17/23 09/17/23 History [Ultracet 37.5-325] Allergies Allergy/AdvReac Type Severity Reaction Status Date / Time morphine Allergy Anaphylaxis Verified 09/17/23 13:19 Penicillins Allergy Swelling Verified 09/17/23 13:19 on entire body Influenza Virus Vaccines AdvReac Unknown Verified 09/17/23 13:19 pneumococcal vaccine AdvReac Unknown Verified 09/17/23 13:19 Surgical - Exam Vital Signs Temp Pulse Resp BP Pulse Ox 98.7 F 68 18 139/75 99 09/16/23 21:12 09/16/23 21:12 09/16/23 21:12 09/16/23 21:12 09/16/23 21:12 - General well developed, well nourished, no distress, no pain, chronically ill - Eyes PERRL, normal ocular movement, no pale, no icteric - ENT normal pinna, normal nares, normal mucosa, no hearing loss, no congestion, poor alf - Neck Neck is supple, no lymphadenopathy. no masses, no bruits, trachea midline, no venous distension - Respiratory Lung sounds essentially clear throughout, few scattered rhonchi and diminished to his bilateral bases. Respirations are symmetrical and nonlabored. Oxygen saturations are 98% on 2 L nasal cannula. - Cardiovascular Regular rhythm and rate. S1 and S2 present, negative for S3, gallop or murmur. - Abdomen Abdomen is soft, nontender and nondistended. Active bowel sounds present all 4 abdominal quadrants. No guarding or rigidity. - Genitourinary Deferred - Rectum Deferred - Integumentary no rash, no growths, no abnormal pigmentation - Neurologic No focal deficits. - Musculoskeletal Moves all 4 extremities with equal strength bilateral. - Psychiatric oriented to time, oriented to person, oriented to place, speech is normal, memory intact Results - Labs 09/16/23 21:33 09/16/23 22:15 Abnormal Lab Results - Last 24 Hours (Table) 09/16/23 09/17/23 Range/Units 22:15 10:45 D-Dimer 4.28 H (<0.60) mg/L FEU Triglycerides 219.00 H (0.00-149.00) mg/dL VLDL Cholesterol, Calc 43.80 H (5.00-40.00) mg/dL HDL Cholesterol 30.10 L (40.00-60.00) mg/dL Diabetes panel 09/16/23 Range/Units 22:15 Triglycerides 219.00 H (0.00-149.00) mg/dL HDL Cholesterol 30.10 L (40.00-60.00) mg/dL - Imaging Chest x-ray: report reviewed, image reviewed CT scan - chest: report reviewed, image reviewed Assessment and Plan Assessment: Acute onset of shortness of breath, likely secondary to COPD exacerbation History of ongoing tobacco dependence, currently smoking cigars, has a smoking history of 40 years of use with 1 to 2 packs/day COPD with chronic home oxygen use of 2 L nasal cannula Ischemic cardiomyopathy with ejection fraction of 25 to 30%, status post AICD placement Chronic systolic congestive heart failure History of hypertension History of hyperlipidemia History of hypothyroidism History of seizure disorder History of coronary artery disease status post four-vessel coronary artery bypass grafting surgery in 1995 and subsequent stenting x 2 History of peripheral vascular disease History of schizophrenia/bipolar disorder History of anxiety/depression Plan: The patient was seen and examined at his bedside on the 6 floor cardiac observation unit. His chart and diagnostics reviewed. His case was discussed in detail with Dr. Jose aPntoja from cardiothoracic surgery. Recommendations for consult to cardiology to further evaluate the moderate to severe mitral valve regurgitation. Dr. Pantoja recommends a transesophageal echocardiogram for further evaluation of the mitral valve. Medical management and other comorbidities per primary care service and other consultants. More recommendations to follow based on patient's clinical course. Thank you Dr. Verdin for this consult and we look forward to working with you in the care of this patient. I have personally seen and examined the patient, performed the documentation and the assessment and plan as written. Number of minutes spent on the visit: 30. PIO Champagne
--- NOTE | 2023-09-18 16:59 | P.CRDCN ---
History of Present Illness Consult date: 09/18/23 History of present illness: History of present illness: Patient is a pleasant 73-year-old male with significant past medical history of CAD status post CABG in 1995, congestive heart failure, dementia, hyperlipidemia, hypertension, seizure disorder, syncope, thyroid disorder, AICD placement, AAA repair, ischemic cardiomyopathy, tobacco abuse who presented with complaints of shortness of breath, dizziness, chest pain. 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 He does smoke. He reports yesterday he was just sitting and developed shortness of breath dizziness and sharp chest pain that lasted approximately 15 minutes. Troponin negative x 3, potassium 4.5, c reatinine 1.11, D-dimer 4.28. CTA of the chest was negative for PE, shows mild Cardilate cardiomegaly. Echocardiogram 09/17/2023 with EF 25-30%, moderate LVH, moderate to severe mitral regurgitation. He does report that his chest pain and breathing is better today. He reports feeling generally weak. He was evaluated by cardiothoracic surgery with recommendations for JENNY to further evaluate skinny l valve. No recent heart cath. REVIEW OF SYSTEMS: No fever or chills. No cough or expectoration. No diaphoresis. Patient denies headache, dizziness, blurred vision, double vision. Patient denies any stomach discomfort. No nausea, vomiting. No hematochezia. No hematemesis. Denies any black stools or blood in his stools. Denies dysuria or hematuria. No muscle weakness or numbness. No chest pain or pressure. Reports shortness of breath. PHYSICAL EXAMINATION: This is a 73-year-old male n no apparent distress at the time of my examination. HEENT: Head is atraumatic, normocephalic. Pupils are equal, round. Sclerae anicteric. Conjunctivae are clear. Mucous membranes of the mouth are moist. Neck is supple. There is no jugular venous distention. No carotid bruit is heard. CHEST EXAMINATION: Lungs with diminished bases bilat. No chest wall tenderness is noted on palpation or with deep breathing. HEART EXAMINATION: Heart regular rate and rhythm. S1, S2 heard. No murmurs, gallops or rub. ABDOMEN: Soft, nontender. Bowel sounds are heard. EXTREMITIES: 2+ peripheral pulses with no evidence of peripheral edema and no calf tenderness noted. NEUROLOGIC EXAMINATION: Patient is awake, alert and oriented x3. IMPRESSION AND PLAN: CAD status post CABG 1995 Ischemic cardiomyopathy, decreased to 25-30% Acute on chronic systolic heart failure Moderate LVH Moderatesevere mitral regurgitation Tobacco abuse History of AAA repair Hypertension Hyperlipidemia Seizure disorder Status post AICD implantation Chest pain, atypical Poor followup, medical noncompliance PLAN: Request device check. Smoking cessation strongly emphasized. Will check stress test to rule out inducible ischemia for his chest pain. We will follow. I am dictating on behalf of Dr. Mele Smith's history/physical and assessment/plan. Past Medical History Past Medical History: Coronary Artery Disease (CAD), Heart Failure, Dementia, Hyperlipidemia, Hypertension, Seizure Disorder, Syncope, Thyroid Disorder Additional Past Medical History / Comment(s): Ischemic cardiomyopathy, EF 20- 25%, last seizure about 2 yrs ago, hypothyroid.neuropathy "WHEN HE WORKED HE HAD A CRUSHING INJURY -COLLAPSED LUNGS C/T AND HAS CHRONIC BACK PAIN"" pt states he is schizophrenic/bipolar. TRIPLE A REPAIR AUG 2022 History of Any Multi-Drug Resistant Organisms: None Reported Past Surgical History: AICD, Back Surgery, Coronary Bypass/CABG, Heart Catheterization, Heart Catheterization With Stent Additional Past Surgical History / Comment(s): 1995 CABG 4 vessel in [place], has had 2"HEART CATHS/had 2 STENTS after cabg sx.pt stated they were done in [facility]. "sx on tailbone, cortisone injections, devin inguinal hernia repair Past Anesthesia/Blood Transfusion Reactions: No Reported Reaction Date of Last Stent Placement:: 1995 Type of Cardiac Device: AICD Device Placement Date:: 1995 in [facility] Past Psychological History: Anxiety, Depression, Schizoaffective Disorder, Schizophrenia Additional Psychological History / Comment(s): . Smoking Status: Current every day smoker Past Alcohol Use History: None Reported, Daily Additional Past Alcohol Use History / Comment(s): . Past Drug Use History: None Reported Additional Drug Use History / Comment(s): Pt states he smokes marijuana on occas ion. - Past Family History Mother Family Medical History: Respiratory Disorder Additional Family Medical History / Comment(s): Mother had TB Father Additional Family Medical History / Comment(s): Father was an alcoholic. Medications and Allergies Home Medications Medication Instructions Recorded Confirmed Type Cyanocobalamin (Vitamin B-12) 1,000 mcg PO DAILY@0800 08/23/22/03/24 History [Vitamin B-12] Melatonin 6 mg PO HS@209908/23/22 09/17/23 History Sennosides/Docusate Sodium [[place] 2 tab PO HS@209908/23/22 09/17/23 History Plus 8.6-50 mg Tablet] Sucralfate [Carafate] 1 gm PO BID@0800,1700 08/23/22 09/17/23 History Famotidine [Pepcid] 20 mg PO BID@0700,1700 08/31/22 09/17/23 History Acetaminophen [Tylenol 8 Hour] 650 mg PO TID@0800,1399,199909/17/23 09/17/23 History Aspirin EC [Ecotrin Low Dose] 81 mg PO DAILY@79909/17/23 09/17/23 History Atorvastatin Calcium [Lipitor] 40 mg PO HS@209909/17/23 09/17/23 History Ciclopirox Olamine [Loprox 0.77% 1 applic TOPICAL BID@0700,19009/17/2311/05 History cream] Escitalopram [Lexapro] 20 mg PO DAILY@79909/17/23 09/17/23 History Folic Acid 0.4 mg PO DAILY@79909/17/23 09/17/23 History Furosemide [Lasix] 20 mg PO DAILY@69909/17/23 09/17/23 History HYDROcodone/APAP 5-325MG [[place] 1 tab PO Q6HR PRN 09/17/23 09/17/23 History 5-325] Levothyroxine Sodium [Synthroid] 100 mcg PO DAILY@69909/17/23 09/17/23 History Mirtazapine 30 mg PO HS@209909/17/23 09/17/23 History carvediloL [Coreg] 3.125 mg PO BID@799,199909/17/23 09/17/23 History traMADol HCL/ACETAMINOPHEN 1 tab PO BID PRN 09/17/23 09/17/23 History [Ultracet 37.5-325] Allergies Allergy/AdvReac Type Severity Reaction Status Date / Time morphine Allergy Anaphylaxis Verified 09/17/23 13:19 Penicillins Allergy Swelling Verified 09/17/23 13:19 on entire body Influenza Virus Vaccines AdvReac Unknown Verified 09/17/23 13:19 pneumococcal vaccine AdvReac Unknown Verified 09/17/23 13:19 Physical Exam Vitals: Vital Signs Temp Pulse Pulse Pulse Resp BP BP 09/18/23 10:12 72 09/18/23 10:00 74 09/18/23 07:00 97.9 F 82 20 L 20 131/76 09/18/23 00:10 96.0 F L 65 16 137/78 09/17/23 23:42 60 09/17/23 23:34 60 09/17/23 19:48 97.8 F 60 16 103/63 09/17/23 17:00 57 L 20 121/54 09/17/23 15:00 97.9 F 66 18 BP Pulse Ox 09/18/23 10:12 09/18/23 10:00 97 09/18/23 07:00 98 09/18/23 00:10 100 09/17/23 23:42 09/17/23 23:34 09/17/23 19:48 94 L 09/17/23 17:00 95 09/17/23 15:00 147/73 Intake and Output 09/17/23 09/18/23 09/18/23 22:59 06:59 14:59 Intake Total 120 Output Total 300 Balance -180 Intake: Oral 120 Output: Urine 300 Other: # Voids 1 Results 09/16/23 21:33 09/16/23 22:15 Cardiac Enzymes 09/17/23 Range/Units 10:45 Troponin I <0.012 (0.000-0.034) ng/mL Lipids 09/16/23 Range/Units 22:15 Triglycerides 219.00 H (0.00-149.00) mg/dL Cholesterol 102.00 (0.00-200.00) mg/dL HDL Cholesterol 30.10 L (40.00-60.00) mg/dL Cholesterol/HDL Ratio 3.39 Ratio Current Medications Generic Name Dose Route Start Last Admin Trade Name Freq PRN Reason Stop Dose Admin Albuterol/Ipratropium 3 ml 09/18/23 08:00 09/18/23 09:58 Ipratropium-Albuterol 3 Ml Neb INHALATION 3 ml RT-QID RADHA Administration Albuterol/Ipratropium 3 ml 09/17/23 22:46 09/17/23 23:32 Ipratropium-Albuterol 3 Ml Neb INHALATION 3 ml RT-Q4H PRN Administration Shortness Of Breath Aspirin 81 mg 09/18/23 09:00 09/18/23 09:30 Aspirin 81 Mg PO 81 mg DAILY RADHA Administration Atorvastatin Calcium 40 mg 09/17/23 21:00 09/17/23 20:15 Atorvastatin 40 Mg Tab PO 40 mg HS RADHA Administration Budesonide/Formoterol Fumarate 2 puff 09/18/23 08:00 09/18/23 09:58 Symbicort 160-4.5 Mcg Inhaler INHALATION 2 puff RT-BID RADHA Administration Carvedilol 3.125 mg 09/17/23 17:30 09/18/23 06:08 Carvedilol 3.125 Mg Tab PO 3.125 mg BID-W/MEALS RADHA Administration Cyanocobalamin 1,000 mcg 09/18/23 09:00 09/18/23 09:30 Cyanocobalamin 500 Mcg Tab PO 1,000 mcg DAILY RADHA Administration Escitalopram Oxalate 20 mg 09/18/23 09:00 09/18/23 09:30 Escitalopram 20 Mg Tab PO 20 mg DAILY RADHA Administration Famotidine 20 mg 09/18/23 07:00 09/18/23 06:07 Famotidine 20 Mg Tab PO 20 mg DAILY@0700 RADHA Administration Furosemide 20 mg 09/17/23 16:00 09/18/23 09:30 Furosemide 20 Mg Tab PO 20 mg BID@0900,1600 RADHA Administration Doxycycline Hyclate 100 mg/ 100 mls @ 100 mls/hr 09/17/23 21:00 09/18/23 09:30 Sodium Chloride IVPB 100 mls/hr Q12HR RADHA Administration Protocol Ketorolac Tromethamine 15 mg 09/17/23 10:32 09/17/23 21:23 Ketorolac 15 Mg/Ml 1 Ml Vial IVP 09/22/23 10:34 15 mg Q6HR PRN Administration Chest Pain Levothyroxine Sodium 100 mcg 09/18/23 06:30 09/18/23 06:07 Levothyroxine 100 Mcg Tab PO 100 mcg DAILY@0630 RADHA Administration Melatonin 6 mg 09/17/23 21:00 09/17/23 20:15 Melatonin 3 Mg Tablet PO 6 mg HS RADHA Administration Prednisone 30 mg 09/18/23 09:00 09/18/23 09:30 Prednisone 10 Mg Tab PO 30 mg DAILY RADHA Administration Senna/Docusate Sodium 2 each 09/17/23 21:00 09/17/23 20:15 Sennosides-Docusate Sodium 1 Each Tab PO 2 each HS RADHA Administration Sucralfate 1 gm 09/17/23 17:00 09/18/23 09:30 Sucralfate 1 Gm Tab PO 1 gm BID@0800,1700 RADHA Administration Intake and Output 09/17/23 09/18/23 09/18/23 22:59 06:59 14:59 Intake Total 120 Output Total 300 Balance -180 Intake: Oral 120 Output: Urine 300 Other: # Voids 1 09/16/23 21:33 09/16/23 22:15
--- NOTE | 2023-09-19 02:01 | PN ---
PROGRESS NOTE SUBJECTIVE: The patient came in with shortness of breath, he has been off his breathing treatments at home. He has severely increased left atrial volume, right ventricular dilation, right ventricular systolic pressure normal, ejection fraction 25% to 30%, severe mitral regurg. Chest CTA shows no PE due to elevated D-dimer, mildly enlarged heart, has severe left atrial dilation, moderate left ventricular dilation, status post CABG, evaluated as Dr. Mtz wants to put a consult. No DVTs in his legs. steroids for COPD. He has decreased breath sounds. OBJECTIVE: VITAL SIGNS: Reviewed. CARDIOVASCULAR: S1, S2. ASSESSMENT: Hypertension, dyslipidemia, seizures, hypothyroidism, chronic obstructive pulmonary disease, ischemic cardiomyopathy, history of coronary artery disease, AICD, nicotine addiction. Budesonide switched to Symbicort inhaler, IV Solu-Medrol to oral prednisone. PT OT, physical therapy, etc. MMMARVEL / MADELAINEN: [id number] /
[2023-09-19] MEDS ORDERED: AMINOPHYLLINE 500 MG/20 ML VIAL IV PRN (08:08)
[2023-09-19] MEDS ORDERED: REGADENOSON 0.4 MG/5 ML SYRINGE IV PRN (08:08)
[2023-09-19] MEDS ORDERED: CAFFEINE CITRATE 60 MG/3 ML VIAL IV PRN (08:08)
[2023-09-19] MEDS: DAPAGLIFLOZIN PROPANEDIOL 10 MG TABLET PO SCH (08:38)
[2023-09-19] MEDS: LOSARTAN 25 MG TAB PO SCH (08:38)
[2023-09-19] MEDS ORDERED: LOSARTAN 25 MG TAB PO SCH (09:00)
--- NOTE | 2023-09-19 12:27 | P.PN ---
Subjective Progress Note Date: 09/19/23 History of present illness: History of present illness: Patient is a pleasant 73-year-old male with significant past medical history of CAD status post CABG in 1995, congestive heart failure, dementia, hyperlipidemia, hypertension, seizure disorder, syncope, thyroid disorder, AICD placement, AAA repair, ischemic cardiomyopathy, tobacco abuse who presented with complaints of shortness of breath, dizziness, chest pain. States he does not follow with a clinical rehab specialist. He does smoke. He reports yesterday he was just sitting and developed shortness of breath dizziness and sharp chest pain that lasted approximately 15 minutes. Troponin negative x 3, potassium 4.5, creatinine 1.11, D-dimer 4.28. CTA of the chest was negative for PE, shows mild Cardilate cardiomegaly. Echocardiogram 09/17/2023 with EF 25-30%, moderate LVH, moderate to severe mitral regurgitation. He does report that his chest pain and breathing is better today. He reports feeling generally weak. He was evaluated by cardiothoracic surgery with recommendations for JENNY to further evaluate mitral valve. No recent heart cath. *Patient with some atypical chest pain and prior ischemic cardiomyopathy. EF appears decreased from previous and we will check Lexiscan stress test for now to evaluate for any reversible ischemia. His poor followup and noncompliance complicates care. May consider [facility] however unclear if he will followup, take his meds however he states he will. States "he was never given a clinical rehab specialist" His moderate to severe mitral regurgitaion is clearly secondary mitral regurgitation from his LV dilation and cardiomyopathy. No role for JENNY at this time as treatment is optimization of his heart failure regimen. If MR continues may consider JENNY, evaluation of mitral clip down the road. Continue Coreg, add Losartan and Jardiance. 09/19 Patient has had a four-vessel CABG done in [place] and also stenting done after that about 10 years ago along with AICD that was implanted in [place]. He is not currently following with any clinical rehab specialist. He denies having any prior ch est pain before presentation. Intermittent blood pressure readings have been elevated. Heart rate is in the 60s. PHYSICAL EXAMINATION: This is a 73-year-old male n no apparent distress at the time of my examination. HEENT: Head is atraumatic, normocephalic. Pupils are equal, round. Sclerae anicteric. Conjunctivae are clear. Mucous membranes of the mouth are moist. Neck is supple. There is no jugular venous distention. No carotid bruit is heard. CHEST EXAMINATION: Lungs with diminished bases bilat. No chest wall tenderness is noted on palpation or with deep breathing. HEART EXAMINATION: Heart regular rate and rhythm. S1, S2 heard. No murmurs, gallops or rub. ABDOMEN: Soft, nontender. Bowel sounds are heard. EXTREMITIES: 2+ peripheral pulses with no evidence of peripheral edema and no calf tenderness noted. NEUROLOGIC EXAMINATION: Patient is awake, alert and oriented x3. IMPRESSION AND PLAN: CAD status post CABG 1995 Ischemic cardiomyopathy, decreased to 25-30% Acute on chronic systolic heart failure Moderate LVH Moderatesevere mitral regurgitation Tobacco abuse History of AAA repair Hypertension Hyperlipidemia Seizure disorder Status post AICD implantation Chest pain, atypical Poor followup, medical noncompliance PLAN: AICD interrogation Smoking cessation strongly emphasized. Lexiscan stress test today Continue current cardiac medications: Aspirin 81 mg daily, atorvastatin 40 mg daily, Coreg 3.125 mg daily, Lasix 20 mg twice daily, increase losartan to 25 mg daily. Nurse practitioner note has been reviewed, I agree with documented findings and plan of care. Patient was seen and examined. Objective - Vital Signs Vital signs: Vital Signs Temp 97.9 F 09/19/23 02:00 Pulse 68 09/19/23 02:00 Resp 16 09/19/23 02:00 BP 147/68 09/19/23 02:00 Pulse Ox 99 09/19/23 02:00 FiO2 Intake & Output 09/18/23 09/19/23 09/19/23 18:59 06:59 18:59 Intake Total 240 Output Total 150 Balance 240 -150 Intake: Oral 240 Output: Urine 150 Other: Voiding Method Toilet # Voids 1 1 # Bowel Movements 1 - Labs CBC & Chem 7: 09/16/23 21:33 09/16/23 22:15 Labs: Abnormal Lab Results - Last 24 Hours (Table) 09/16/23 Range/Units 22:15 Triglycerides 219.00 H (0.00-149.00) mg/dL VLDL Cholesterol, Calc 43.80 H (5.00-40.00) mg/dL HDL Cholesterol 30.10 L (40.00-60.00) mg/dL
--- NOTE | 2023-09-19 14:44 | NM ---
EXAMINATION TYPE: NM stress lexiscan cardiolite DATE OF EXAM: 09/19/2023 COMPARISON: NONE CLINICAL INDICATION: Male, 73 years old with history of CP; TECHNIQUE: After the intravenous administration of 10.2 mCi Tc 99m Sestamibi - Cardiolite resting SP ECT images acquired 90 minutes post injection. The patient received 0.4mg Lexiscan, 24.9 mCi Tc 99m Sestamibi - Stress images obtained [address] injection FINDINGS: Review of stress and rest SPECT images demonstrates small fixed defect involving the apex myocardium. Small area of stress-induced reversible ischemia involving the apical lateral and. Gated analysis s hows only with wall motion with an estimated left ventricular ejection fraction of 22 %. Result lopez d to the patient's nurse Danyell, at 2:41 PM, 09/19/2023. IMPRESSION: 1. Finding are suggestive of Stress-induced reversible ischemia apical lateral myocardium. 2. Ejection fraction only 22%.
[2023-09-19] MEDS ORDERED: ALPRAZolam 0.5 MG TAB PO PRN (15:02)
[2023-09-19] MEDS ORDERED: NITROGLYCERIN SL TABS 0.4 MG TAB SUBLINGUAL PRN (15:02)
--- NOTE | 2023-09-19 16:08 | P.PN ---
Subjective Progress Note Date: 09/19/23 On today's evaluation of 09/19/2023, the patient is being seen for a follow-up. The patient presented to the hospital because of chest pain. The patient lives in an assisted living home. The patient uses oxygen on an as-needed basis and the patient carries around [id number] smoking history. He is still smoking on and off. Along with his chest pain, the patient reported some shortness of breath and cough and congestion. Chest x-ray was normal. CT scan of the chest was done utilizing a CT angiogram protocol and this was also normal and the Doppler lower extremity was also normal. The patient is currently being treated for a component of COPD exacerbation. Based on his underlying coronary artery disease, the patient is going to undergo a cardiac stress test today. He has dementia, hypertension hyperlipidemia seizure disorder. The patient has undergone previous coronary bypass surgery and he has an AICD in place and he has also undergone previous coronary intervention and stenting. His baseline left medical ejection fraction is in the order of 20 to 25%.In terms of his labs, the patient's WBC count is 7.8 with hemoglobin 14. Troponins were negative. Procalcitonin level is at 0.04 and the D-dimer is at 4.28. The patient has normal electrolytes. The patient is currently on IV heparin pending cardiac stress test. Patient is also on DuoNeb nebulized treatments [id number] and a prednisone burst taper starting with 30 mg. No other significant events otherwise for now. Objective - Vital Signs Vital signs: Vital Signs Temp 97.9 F 09/19/23 07:00 Pulse 68 09/19/23 08:28 Resp 12 09/19/23 07:00 BP 128/69 09/19/23 07:00 Pulse Ox 98 09/19/23 08:13 FiO2 Intake & Output 09/18/23 09/19/23 09/19/23 18:59 06:59 18:59 Intake Total 240 Output Total 150 Balance 240 -150 Intake: Oral 240 Output: Urine 150 Other: Voiding Method Toilet # Voids 1 1 # Bowel Movements 1 - Exam No acute distress, oriented 3. No audible wheezing, use of accessory muscles, or conversational dyspnea. The patient is currently on 2 L of oxygen by nasal cannula with a pulse ox of 99% HEENT examination is grossly unremarkable. Mucous membranes are moist. No oral lesions. Neck supple. Full range of motion. No adenopathy thyromegaly or neck vein distention. Cardiovascular examination reveals regular rhythm rate. S1-S2 normal. No S3 or S4. No discernible murmur noted. Lungs reveal mostly clear breath sounds. Minimal rhonchi. No wheezes or crackles. Breath sounds equal bilaterally. Abdomen soft bowel sounds are heard. No masses or tenderness. Extremities are intact. No cyanosis clubbing or edema. Skin is without rash or lesion. Neurologic examination is brief but nonfocal. - Labs CBC & Chem 7: 09/16/23 21:33 09/16/23 22:15 Assessment and Plan Plan: Shortness of breath, chest pain, most likely related to a COPD exacerbation. Chest pain currently under investigation. Troponins are negative and the patient is going to undergo a cardiac stress test today History of ongoing tobacco use, primarily cigars, although the patient has 40 years of tobacco use, at 1 to 2 packs a day. Probable COPD, with chronic home oxygen use. History of ischemic cardiomyopathy, with an ejection fraction of 20 to 25%. Patient also has moderate to severe mitral regurgitation and mild tricuspid regurgitation History of CAD, with previous bypass grafting, and stent placement. Status post AICD placement. History of CHF. History of hypertension. History of hyperlipidemia. History of seizure disorder. History of hypothyroidism. Multiple other medical problems and comorbidities. Plan: Continue current treatment Cardiac stress test today Continue with DuoNeb updrafts and Symbicort as maintenance and the patient is currently on a prednisone burst taper starting with 30 mg Management of anticoagulation with IV heparin per cardiology Will continue to follow
[2023-09-19] MEDS: SODIUM CHLORIDE 0.9% 1,000 ML in EMPTY BAG 1 BAG IV SCH (17:05)
--- NOTE | 2023-09-20 00:40 | PN ---
PROGRESS NOTE He had a Lexiscan stress test today as per Cardiology. Dr. Pantoja saw him for Pulmonary. He had a stress-induced reversible ischemia in the apex, lateral myocardium. Ejection fraction 20% to 22%. He possibly did have to have a heart catheterization prior to going home. Chest CT has no evidence of lung nodules. A chest CTA for elevated D-dimer. He has moderate to severe left atrial dilation, moderate left ventricular dilation. systolic CHF, COPD, pulmonary hypertension, ischemic cardiomyopathy, hypertension, dyslipidemia, seizure disorder, hypothyroidism, history of nicotine addiction. Continue with current treatment, inhalers, IV steroids, updrafts, Heparin, stress test abnormal, possible heart catheterization in the morning. MMODL / IJN: [id number] /
[2023-09-20] MEDS: ATORVASTATIN 80 MG TAB PO ONE (05:50)
[2023-09-20] MEDS: ASPIRIN 325 MG TAB PO ONE (05:50)
[2023-09-20] MEDS ORDERED: HEPARIN SODIUM,PORCINE (1 ML) 2,500 UNIT in SODIUM CHLORIDE 0.9% 250 ML IRRIGATION PRN (07:00)
[2023-09-20] MEDS ORDERED: HEPARIN SODIUM,PORCINE 10,000 UNIT in SODIUM CHLORIDE 0.9% 1,000 ML IRRIGATION PRN (07:00)
--- NOTE | 2023-09-20 07:40 | CA ---
Lexiscan Nuclear Stress Test Report Name: Magaly Morales Exam Date: 09/19/2023 11:55 Exam Location: [place] Stress Ht (in): 66 Wt (lb): 150 BSA: 1.77 Ordering Phys: Yolanda Wei Referring Phys: CHUCK, Technologist: KIMBERLY,, Age: 73 Gender: M : 1950 Procedure CPT: Indications: Reflex order-Stress test ICD-10 Codes: Patient History: Chest pain and shortness of breath Medications: Meds past 24 hrs: Pretest Chest Pain: STRESS TEST Lexiscan Protocol Exercise Duration (min:sec): 01:[address] Depressions (mm): Angina Score: Carbajal Score: Resting HR (bpm): 70 Peak HR (bpm): 85 Resting BP (mmHg): 151 / 86 Peak BP (mmHg): 161 / 77 MPHR: 148 Target HR: 126 % MPHR: 57 METS: 1.0 Total Dose: Peak Dose: Atropine: Double Product: 81798 BP Response: Stress Termination: INFUSION COMPLETE Stress Symptoms: DIFFICULTY IN BREATHING Stress Summary: ECG ANALYSIS Resting ECG: Sinus rhythm. Normal conduction. No arrhythmias. Nonspecific ST-T abnormality. Stress ECG: No ECG changes from baseline with Lexiscan infusion. Atrial premature contraction. Ventricular premature contraction. CONCLUSIONS No ECG evidence of ischemia with Lexiscan infusion. Nuclear test results to follow. Dr. Shade Petty MD (Electronically Signed) Final Date: 20 September 2023 07:39
--- NOTE | 2023-09-20 11:28 | P.PN ---
Subjective Progress Note Date: 09/20/23 History of present illness: History of present illness: Patient is a pleasant 73-year-old male with significant past medical history of CAD status post CABG in 1995, congestive heart failure, dementia, hyperlipidemia, hypertension, seizure disorder, syncope, thyroid disorder, AICD placement, AAA repair, ischemic cardiomyopathy, tobacco abuse who presented with complaints of shortness of breath, dizziness, chest pain. States he does not follow with a house mother. He does smoke. He reports yesterday he was just sitting and developed shortness of breath dizziness and sharp chest pain that lasted approximately 15 minutes. Troponin negative x 3, potassium 4.5, creatinine 1.11, D-dimer 4.28. CTA of the chest was negative for PE, shows mild Cardilate cardiomegaly. Echocardiogram 09/17/2023 with EF 25-30%, moderate LVH, moderate to severe mitral regurgitation. He does report that his chest pain and breathing is better today. He reports feeling generally weak. He was evaluated by cardiothoracic surgery with recommendations for JENNY to further evaluate mitral valve. No recent heart cath. *Patient with some atypical chest pain and prior ischemic cardiomyopathy. EF appears decreased from previous and we will check Lexiscan stress test for now to evaluate for any reversible ischemia. His poor followup and noncompliance complicates care. May consider [facility] however unclear if he will followup, take his meds however he states he will. States "he was never given a house mother" His moderate to severe mitral regurgitaion is clearly secondary mitral regurgitation from his LV dilation and cardiomyopathy. No role for JENNY at this time as treatment is optimization of his heart failure regimen. If MR continues may consider JENNY, evaluation of mitral clip down the road. Continue Coreg, add Losartan and Jardiance. 09/19 Patient has had a four-vessel CABG done in [place] and also stenting done after that about 10 years ago along with AICD that was implanted in [place]. He is not currently following with any house mother. He denies having any prior chest pain before presentation. Intermittent blood pressure readings have been elevated. Heart rate is in the 60s. 09/20 Yesterday, patient underwent Lexiscan Cardiolite stress test which revealed stress-induced reversible ischemia apical lateral myocardium. EF 22%. Patient has been scheduled for cardiac catheterization today with Dr. Smith. He denies having any chest pain. Blood pressure 139/69, heart rate 61, pulse ox 98% on 2 L nasal cannula. PHYSICAL EXAMINATION: This is a 73-year-old male n no apparent distress at the time of my examination. HEENT: Head is atraumatic, normocephalic. Pupils are equal, round. Sclerae anicteric. Conjunctivae are clear. Mucous membranes of the mouth are moist. Neck is supple. There is no jugular venous distention. No carotid bruit is heard. CHEST EXAMINATION: Lungs with diminished bases bilat. No chest wall tenderness is noted on palpation or with deep breathing. HEART EXAMINATION: Heart regular rate and rhythm. S1, S2 heard. No murmurs, gallops or rub. ABDOMEN: Soft, nontender. Bowel sounds are heard. EXTREMITIES: 2+ peripheral pulses with no evidence of peripheral edema and no calf tenderness noted. NEUROLOGIC EXAMINATION: Patient is awake, alert and oriented x3. IMPRESSION AND PLAN: CAD status post CABG 1995 Ischemic cardiomyopathy, decreased to 25-30% Acute on chronic systolic heart failure Moderate LVH Moderatesevere mitral regurgitation Tobacco abuse History of AAA repair Hypertension Hyperlipidemia Seizure disorder Status post AICD implantation Chest pain, atypical Poor followup, medical noncompliance PLAN: AICD interrogation Smoking cessation strongly emphasized. Continue current cardiac medications: Aspirin 81 mg daily, atorvastatin 40 mg daily, Coreg 3.125 mg daily, Lasix 20 mg twice daily, increase losartan to 25 mg daily. Patient scheduled for cardiac catheterization today with Dr. Smith. Nurse practitioner note has been reviewed, I agree with documented findings and plan of care. Patient was seen and examined. Objective - Vital Signs Vital signs: Vital Signs Temp 97.6 F 09/20/23 07:27 Pulse 61 09/20/23 07:27 Resp 18 09/20/23 07:27 BP 139/69 09/20/23 07:27 Pulse Ox 98 09/20/23 07:27 FiO2 Intake & Output 09/19/23 09/20/23 09/20/23 18:59 06:59 18:59 Intake Total 200 Output Total 1100 Balance -900 Intake: Oral 200 Output: Urine 1100 Other: Voiding Method Toilet Urinal # Voids 2 - Labs CBC & Chem 7: 09/16/23 21:33 09/16/23 22:15
--- NOTE | 2023-09-20 11:57 | P.PN ---
Subjective Progress Note Date: 09/20/23 On today's evaluation of 09/19/2023, the patient is being seen for a follow-up. The patient presented to the hospital because of chest pain. The patient lives in an assisted living home. The patient uses oxygen on an as-needed basis and the patient carries around [id number] smoking history. He is still smoking on and off. Along with his chest pain, the patient reported some shortness of breath and cough and congestion. Chest x-ray was normal. CT scan of the chest was done utilizing a CT angiogram protocol and this was also normal and the Doppler lower extremity was also normal. The patient is currently being treated for a component of COPD exacerbation. Based on his underlying coronary artery disease, the patient is going to undergo a cardiac stress test today. He has dementia, hypertension hyperlipidemia seizure disorder. The patient has undergone previous coronary bypass surgery and he has an AICD in place and he has also undergone previous coronary intervention and stenting. His baseline left medical ejection fraction is in the order of 20 to 25%.In terms of his labs, the patient's WBC count is 7.8 with hemoglobin 14. Troponins were negative. Procalcitonin level is at 0.04 and the D-dimer is at 4.28. The patient has normal electrolytes. The patient is currently on IV heparin pending cardiac stress test. Patient is also on DuoNeb nebulized treatments [id number] and a prednisone burst taper starting with 30 mg. No other significant events otherwise for now. On today's evaluation of 09/20/2023, the patient is free of any chest pain. He still having some limited shortness of breath. Note that the patient underwent a cardiac stress test yesterday and the results were abnormal forReversible ischemia. Lexiscan cardiac stress test showed an ejection fraction of 22% and the patient was found to have stress-induced reversible ischemia involving the apical lateral wall. Based on that, the patient is going to undergo a cardiac catheterization today. His EKG showing sinus bradycardia without any acute ST segment changes. The patient otherwise doing well. The patient is maintained on Symbicort regarding his COPD and DuoNeb updrafts and the patient is also on prednisone burst taper starting at 30 mg. He is on Lasix 20 mg p.o. twice a day. He is on aspirin. He is also on Coreg 3.125 mg p.o. twice daily and Lipitor 40 mg p.o. daily. Objective - Vital Signs Vital signs: Vital Signs Temp 97.6 F 09/20/23 07:27 Pulse 72 09/20/23 08:54 Resp 18 09/20/23 07:27 BP 139/69 09/20/23 07:27 Pulse Ox 98 09/20/23 08:45 FiO2 Intake & Output 09/19/23 09/20/23 09/20/23 18:59 06:59 18:59 Intake Total 200 Output Total 1100 Balance -900 Intake: Oral 200 Output: Urine 1100 Other: Voiding Method Toilet Urinal # Voids 2 - Exam No acute distress, oriented 3. No audible wheezing, use of accessory muscles, or conversational dyspnea. The patient is currently on 2 L of oxygen by nasal cannula with a pulse ox of 99% HEENT examination is grossly unremarkable. Mucous membranes are moist. No oral lesions. Neck supple. Full range of motion. No adenopathy thyromegaly or neck vein distention. Cardiovascular examination reveals regular rhythm rate. S1-S2 normal. No S3 or S4. No discernible murmur noted. Lungs reveal mostly clear breath sounds. Minimal rhonchi. No wheezes or crackles. Breath sounds equal bilaterally. Abdomen soft bowel sounds are heard. No masses or tenderness. Extremities are intact. No cyanosis clubbing or edema. Skin is without rash or lesion. Neurologic examination is brief but nonfocal. - Labs CBC & Chem 7: 09/16/23 21:33 09/16/23 22:15 Assessment and Plan Plan: Shortness of breath, chest pain, most likely related to a COPD exacerbation. Clinically stable as the patient is being treated for an acute exacerbation Chest pain currently under investigation. Troponins are negative and the patient had a Lexiscan cardiac stress test that was abnormal and the patient is going to need a cardiac catheterization History of ongoing tobacco use, primarily cigars, although the patient has 40 years of tobacco use, at 1 to 2 packs a day. Probable COPD, with chronic home oxygen use. History of ischemic cardiomyopathy, with an ejection fraction of 20 to 25%. Patient also has moderate to severe mitral regurgitation and mild tricuspid regurgitation History of CAD, with previous bypass grafting, and stent placement. Status post AICD placement. History of CHF. History of hypertension. History of hyperlipidemia. History of seizure disorder. History of hypothyroidism. Multiple other medical problems and comorbidities. Plan: Continue aspirin and Coreg Cardiac catheterization today as the patient had a normal cardiac stress test Continue with DuoNeb updrafts and Symbicort as maintenance and the patient is currently on a prednisone burst taper starting with 30 mg Continue IV heparin pending cardiac catheterization Will continue to follow
[2023-09-20] MEDS ORDERED: VERAPAMIL 2.5 MG/ML 2 ML AMP ONE (13:40)
[2023-09-20] MEDS ORDERED: HEPARIN SODIUM 1,000 UN/ML (10ML VL) ONE (13:40)
[2023-09-20] MEDS ORDERED: LIDOCAINE 1% INJ 10MG/ML (20 ML MDV) ONE (13:40)
[2023-09-20] MEDS ORDERED: fentaNYL (PF) 50 MCG/ML 2 ML AMP ONE (13:40)
[2023-09-20] MEDS: IV FLUID CONTINUATION 1,000 ML IV ONE (14:20)
[2023-09-20] MEDS: fentaNYL (PF) 50 MCG/ML 2 ML AMP IVP ONE (14:35)
[2023-09-20] MEDS: MIDAZOLAM 2 MG/2 ML VIAL IVP ONE (14:35)
[2023-09-20] MEDS: LIDOCAINE 1% INJ 10MG/ML (20 ML MDV) SQ ONE (14:36)
[2023-09-20] MEDS: VERAPAMIL SYRINGE (5 MG/10 ML) INTRAARTER ONE (14:37)
[2023-09-20] MEDS: HEPARIN SODIUM 1,000 UN/ML (10ML VL) IV ONE (14:43)
[2023-09-20] MEDS ORDERED: TICAGRELOR 90 MG TAB ONE (14:59)
[2023-09-20] MEDS: TICAGRELOR 90 MG TAB PO ONE (15:01)
[2023-09-20] MEDS: IOPAMIDOL-370 100ML BTL INJ ONE ×4 (15:02→15:37)
[2023-09-20] MEDS: NITROGLYCERIN 1000MCG/10ML SYRINGE INTRACORON ONE (15:17)
[2023-09-20] MEDS ORDERED: MAG HYDROX/AL HYDROX/SIMETH 30 ML CUP PO PRN (15:41)
[2023-09-20] MEDS ORDERED: ZOLPIDEM 5 MG TAB PO PRN (15:41)
[2023-09-20] MEDS ORDERED: RX INFO: IV CONTRAST WAS GIVEN 1 EACH MISC MISCELLANE PRN (15:41)
[2023-09-20] MEDS ORDERED: ATROPINE SULFATE 0.1 MG/ML 10ML SYRINGE IV PRN (15:41)
--- NOTE | 2023-09-20 15:55 | P.PRCINT ---
Percutaneous Coronary Int. - Percutaneous Coronary Intervention Percutaneous Coronary Intervention: PROCEDURES PERFORMED: Left heart catheterization, bilateral coronary angiography, ultrasound guided arterial access, ascending aortic angiogram, SVG to PDA, SVG to diagonal angiogram, FIORE to LAD angiogram, PCI SVG to diagonal with 3.5 x 12 mm Xience ZACKERY proximally, 2.5 x 23 mm Xience ZACKERY at distal SVG into diagonal post dilated with a 3.0 NC balloon INDICATION: Unstable angina, dyspnea on exertion, cardiomyopathy, abnormal stress test CONSENT:I have discussed the risks, benefits and alternative therapies for the above-mentioned procedure and for both sedation/analgesia as well as necessary blood product administration, if indicated, as they pertain to this patient. The patient has indicated understanding and acceptance of the risks and procedures discussed. PROCEDURE: After the risks, benefits and alternatives of the above mentioned procedure explained in detail with the patient, informed consent was obtained. Patient was taken to the catheterization lab and prepped and draped in usual fashion. Ultrasound guidance was used to assess for arterial access. 1% lidocaine was used to anesthetize the left radial artery. A 6-Mosotho sheath was placed in the left radial artery using modified Seldinger technique and ultrasound guidance. Left coronary angiography was performed with a 5-Mosotho JL 4.0 catheter. Subselective images of the RCA appeared to show RCA occluded proximally. Given fixed severe intensity noted of the inferior wall on stress test most consistent with prior inferior infarct with collaterals to the RCA and no further attempts were made. SVG to PDA images were obtained with a 5-Mosotho FR4. SVG to diagonal branch were performed with a 5-Mosotho multipurpose A2 catheter. FIORE to LAD angiography was performed with a 5-Mosotho FR 4 catheter. Ascending aortic angiogram was performed with a power injection with a pigtail catheter. A 5-Mosotho FR4 catheter was inserted into the left ventricle and pressure measurements were obtained. The decision was made to perform PCI of the SVG to diagonal branch. A 6-Mosotho CLS 3.0 guide was used to engage the SVG to diagonal branch. A 0.014 BMW wire was advanced in the distal diagonal branch. Predilation was performed with a 2 .0 balloon. Next a 2.5 x 23 mm Xience ZACKERY was placed in the distal SVG to diagonal branch. The proximal midportion of the stent were postdilated with a 3.0 noncompliant balloon. The ostium of the SVG was predilated with a 3.0 noncompliant balloon. Next a 3.5 x 12 mm Xience ZACKERY was placed at the origin of the SVG. Due to old grafts approximately 28 years old the middle portion of the graft was felt best treated medically due to high risk of no reflow. Final angiograms were performed. Preintervention there was 95% stenosis and ADRIAN-3 flow and post intervention there was less than 10% stenosis and ADRIAN-3 flow. The left radial sheath was removed and a TR band was placed with hemostasis achieved. The patient tolerated the procedure well. Patient was transported back to the post catheterization holding area in stable condition. Conscious Sedation: Patient was monitored under the direct supervision of myself for conscious sedation using Versed and fentanyl for a total duration of 57 minutes HEMODYNAMICS: Ao: 136/56 LV: 118/1, LVEDP 3 SELECTIVE CORONARY ARTERIOGRAPHY: LEFT MAIN: The left main is a large caliber vessel which bifurcates into the LAD and circumflex. There is 10% distal left main stenosis LEFT ANTERIOR DESCENDING CORONARY ARTERY: LAD is a large caliber vessel which wraps around to the apex. There is a proximal 100% stenosis LEFT CIRCUMFLEX CORONARY ARTERY: Left circumflex is a moderate caliber vessel with proximal circumflex 75% stenosis however mainly gives rise to the 80 branch circumflex and small OM branches OM 2 and OM 3 appear occluded. RIGHT CORONARY ARTERY: The right coronary artery was subselective engaged however appears to be occluded at the origin SVG to PDA: There is a proximal SVG stents however 100% occluded at its origin SVG to diagonal: The origin of the SVG has a 95%. The distal SVG into the diagonal branch has a 90% stenosis. FIORE to LAD: Widely patent FINAL IMPRESSION: 1. [place] CAD as described above including 100% proximal LAD stenosis, 75% proximal circumflex stenosis, 100% RCA stenosis 2. Occluded SVG to PDA, patent FIORE to LAD, SVG to diagonal with 95% stenosis. No other remaining grafts noted by aortogram 3. Status post PCI SVG to diagonal with 3.5 x 12 mm Xience ZACKERY proximally, 2.5 x 23 mm Xience ZACKERY at distal SVG into diagonal post dilated with a 3.0 NC balloon 4. Normal left sided filling pressures PLAN: 1. Aggressive risk factor modification per most recent ACC/AHA guidelines. 2. Continue dual antiplatelets with aspirin and Brillinta for 12 months 3. Smoking cessation discussed with patient
[2023-09-20] MEDS: TICAGRELOR 90 MG TAB PO SCH (20:28)
[2023-09-20] MEDS: ACETAMINOPHEN TAB 325 MG TAB PO PRN (20:31)
--- NOTE | 2023-09-20 22:48 | PN ---
PROGRESS NOTE SUBJECTIVE: The patient went to the heart catheterization lab today. He had a PCI to the SVG to the diagonal branch, proximal 100% stenosis in the LAD, left circumflex 75% blocked, he had 100% RCA stenosis. He had 2 stents placed in and pain control will be done. Continue current treatment. Otherwise prognosis is extremely guarded, postop per Cardiology recommendations. Check 98 2 L, pulse 68 to 82. Prognosis guarded. Please see further orders. MMODL / IJN: [id number] /
[2023-09-21] MEDS: ALPRAZolam 0.25 MG TAB PO PRN (03:50)
[2023-09-21 06:27] LABS: Anisocytosis Slight; Basophils % (A) 0 %; Eosinophils % (A) 0 %; HCT 39.7 % (39.0-53.0); HGB 12.7 gm/dL (13.0-17.5); Lymphocytes # (A) 2.9 k/uL (1.0-4.8); Lymphocytes % (A) 28 %; MCHC 32.1 g/dL (31.0-37.0); MCV 90.4 fL (80.0-100.0); Monocytes # (A) 0.6 k/uL (0-1.0); Monocytes % (A) 5 %; Neutrophils # (A) 6.7 k/uL (1.3-7.7); Neutrophils % (A) 64 %; Platelet Count 138 k/uL (150-450); RBC 4.39 m/uL (4.30-5.90); RDW 16.3 % (11.5-15.5); WBC 10.4 k/uL (3.8-10.6)
[2023-09-21 06:36] LABS: African American GFR (CKD) 52 (>60 ml/min/1.73 sqM); Anion Gap 7 mmol/L; Blood Urea Nitrogen 41 mg/dL (9-20); Calcium 8.5 mg/dL (8.4-10.2); Carbon Dioxide 24 mmol/L (22-30); Chloride 107 mmol/L (98-107); Glucose 97 mg/dL (74-99); Non-African American GFR(CKD) 45 (>60 ml/min/1.73 sqM); Potassium 4.4 mmol/L (3.5-5.1); Sodium 138 mmol/L (137-145)
--- NOTE | 2023-09-21 10:08 | P.PN ---
Subjective Progress Note Date: 09/21/23 History of present illness: History of present illness: Patient is a pleasant 73-year-old male with significant past medical history of CAD status post CABG in 1995, congestive heart failure, dementia, hyperlipidemia, hypertension, seizure disorder, syncope, thyroid disorder, AICD placement, AAA repair, ischemic cardiomyopathy, tobacco abuse who presented with complaints of shortness of breath, dizziness, chest pain. States he does not follow with a supplier engineer. He does smoke. He reports yesterday he was just sitting and developed shortness of breath dizziness and sharp chest pain that lasted approximately 15 minutes. Troponin negative x 3, potassium 4.5, creatinine 1.11, D-dimer 4.28. CTA of the chest was negative for PE, shows mild Cardilate cardiomegaly. Echocardiogram 09/17/2023 with EF 25-30%, moderate LVH, moderate to severe mitral regurgitation. He does report that his chest pain and breathing is better today. He reports feeling generally weak. He was evaluated by cardiothoracic surgery with recommendations for JENNY to further evaluate mitral valve. No recent heart cath. *Patient with some atypical chest pain and prior ischemic cardiomyopathy. EF appears decreased from previous and we will check Lexiscan stress test for now to evaluate for any reversible ischemia. His poor followup and noncompliance complicates care. May consider [facility] however unclear if he will followup, take his meds however he states he will. States "he was never given a supplier engineer" His moderate to severe mitral regurgitaion is clearly secondary mitral regurgitation from his LV dilation and cardiomyopathy. No role for JENNY at this time as treatment is optimization of his heart failure regimen. If MR continues may consider JENNY, evaluation of mitral clip down the road. Continue Coreg, add Losartan and Jardiance. 09/19 Patient has had a four-vessel CABG done in [place] and also stenting done after that about 10 years ago along with AICD that was implanted in [place]. He is not currently following with any supplier engineer. He denies having any prior chest pain before presentation. Intermittent blood pressure readings have been elevated. Heart rate is in the 60s. 09/20 Yesterday, patient underwent Lexiscan Cardiolite stress test which revealed stress-induced reversible ischemia apical lateral myocardium. EF 22%. Patient has been scheduled for cardiac catheterization today with Dr. Smith. He denies having any chest pain. Blood pressure 139/69, heart rate 61, pulse ox 98% on 2 L nasal cannula. 09/21 Yesterday, patient underwent cardiac catheterization with Dr. Smith which revealed CAD with 100 stent proximal LAD stenosis, 75% proximal circumflex stenosis, and 100% RCA stenosis. Patient has occluded SVG to PDA, patent FIORE to LAD, SVG to diagonal with 95% stenosis. No other remaining grafts noted by aortogram. Patient underwent PCI of the SVG to diagonal with plan for aggressive risk factor modification, continue dual antiplatelets with aspirin and Brilinta for 12 months and smoking cessation. Repeat blood work reveals BUN of 41 creatinine 1.53. Lasix was discontinued for today. He has been on 20 mg oral twice daily. PHYSICAL EXAMINATION: This is a 73-year-old male n no apparent distress at the time of my examination. HEENT: Head is atraumatic, normocephalic. Pupils are equal, round. Sclerae anicteric. Conjunctivae are clear. Mucous membranes of the mouth are moist. Neck is supple. There is no jugular venous distention. No carotid bruit is heard. CHEST EXAMINATION: Lungs with diminished bases bilat. No chest wall tenderness is noted on palpation or with deep breathing. HEART EXAMINATION: Heart regular rate and rhythm. S1, S2 heard. No murmurs, gallops or rub. ABDOMEN: Soft, nontender. Bowel sounds are heard. EXTREMITIES: 2+ peripheral pulses with no evidence of peripheral edema and no calf tenderness noted. NEUROLOGIC EXAMINATION: Patient is awake, alert and oriented x3. IMPRESSION AND PLAN: CAD status post CABG 1995 Ischemic cardiomyopathy, decreased to 25-30% Acute on chronic systolic heart failure Moderate LVH Moderatesevere mitral regurgitation Tobacco abuse History of AAA repair Hypertension Hyperlipidemia Seizure disorder Status post AICD implantation Chest pain, atypical Poor followup, medical noncompliance PLAN: Continue current cardiac medications Hold Lasix today Repeat BMP in the morning Smoking cessation strongly emphasized. Anticipate discharge home tomorrow as long as renal function is improving. Nurse practitioner note has been reviewed, I agree with documented findings and plan of care. Patient was seen and examined. Objective - Vital Signs Vital signs: Vital Signs Temp 98.1 F 09/21/23 07:36 Pulse 61 09/21/23 07:36 Resp 18 09/21/23 07:36 BP 102/55 09/21/23 07:36 Pulse Ox 99 09/21/23 07:36 FiO2 Intake & Output 09/20/23 09/21/23 09/21/23 18:59 06:59 18:59 Intake Total 100 Output Total 1200 Balance 100 -1200 Intake: IV 100 Output: Urine 1200 Other: Voiding Method Toilet Urinal - Labs CBC & Chem 7: 09/21/23 06:01 09/21/23 06:01 Labs: Abnormal Lab Results - Last 24 Hours (Table) 09/21/23 09/21/23 Range/Units 06:01 06:01 Hgb 12.7 L (13.0-17.5) gm/dL RDW 16.3 H (11.5-15.5) % Plt Count 138 L (150-450) k/uL BUN 41 H (9-20) mg/dL Creatinine 1.53 H (0.66-1.25) mg/dL
--- NOTE | 2023-09-21 14:55 | P.PN ---
Subjective Progress Note Date: 09/21/23 On today's evaluation of 09/19/2023, the patient is being seen for a follow-up. The patient presented to the hospital because of chest pain. The patient lives in an assisted living home. The patient uses oxygen on an as-needed basis and the patient carries around [id number] smoking history. He is still smoking on and off. Along with his chest pain, the patient reported some shortness of breath and cough and congestion. Chest x-ray was normal. CT scan of the chest was done utilizing a CT angiogram protocol and this was also normal and the Doppler lower extremity was also normal. The patient is currently being treated for a component of COPD exacerbation. Based on his underlying coronary artery disease, the patient is going to undergo a cardiac stress test today. He has dementia, hypertension hyperlipidemia seizure disorder. The patient has undergone previous coronary bypass surgery and he has an AICD in place and he has also undergone previous coronary intervention and stenting. His baseline left medical ejection fraction is in the order of 20 to 25%.In terms of his labs, the patient's WBC count is 7.8 with hemoglobin 14. Troponins were negative. Procalcitonin level is at 0.04 and the D-dimer is at 4.28. The patient has normal electrolytes. The patient is currently on IV heparin pending cardiac stress test. Patient is also on DuoNeb nebulized treatments [id number] and a prednisone burst taper starting with 30 mg. No other significant events otherwise for now. On today's evaluation of 09/20/2023, the patient is free of any chest pain. He still having some limited shortness of breath. Note that the patient underwent a cardiac stress test yesterday and the results were abnormal forReversible ischemia. Lexiscan cardiac stress test showed an ejection fraction of 22% and the patient was found to have stress-induced reversible ischemia involving the apical lateral wall. Based on that, the patient is going to undergo a cardiac catheterization today. His EKG showing sinus bradycardia without any acute ST segment changes. The patient otherwise doing well. The patient is maintained on Symbicort regarding his COPD and DuoNeb updrafts and the patient is also on prednisone burst taper starting at 30 mg. He is on Lasix 20 mg p.o. twice a day. He is on aspirin. He is also on Coreg 3.125 mg p.o. twice daily and Lipitor 40 mg p.o. daily. On today's evaluation of 09/21/2022, the patient is being seen for a follow-up. The patient has no major respiratory difficulties. He also denies having any chest pain. Note that the patient underwent a cardiac catheterization yesterday and the patient was found to have [place] coronary artery disease with 100% proximal LAD, 75% circumflex and 100% RCA. There was also occlusion in the saphenous vein graft to PDA, FIORE to LAD was patent and SVG to diagonal had 95% stenosis. The patient underwent PCI and stenting of the SVG to diagonal and 2 stents were inserted. The patient had a normal left ventricular filling pressures and the patient is currently on dual platelet treatment with a combination of aspirin and Brilinta. Patient is also on Coreg 3.125 mg p.o. twice a day. The patient remains also on bronchodilators [id number] and prednisone burst taper. Denies having any other new complaints. Hemoglobin is at 12.7 with a white cell count of 10.4, platelet count is at 138, BUN is 41 wit h a creatinine of 1.5 and his sodium level is at 138. Objective - Vital Signs Vital signs: Vital Signs Temp 98.1 F 09/21/23 07:36 Pulse 64 09/21/23 12:10 Resp 18 09/21/23 07:36 BP 102/55 09/21/23 07:36 Pulse Ox 99 09/21/23 07:36 FiO2 Intake & Output 09/20/23 09/21/23 09/21/23 18:59 06:59 18:59 Intake Total 100 240 Output Total 1200 Balance 100 -1200 240 Intake: IV 100 Oral 240 Output: Urine 1200 Other: Voiding Method Toilet Urinal - Exam No acute distress, oriented 3. No audible wheezing, use of accessory muscles, or conversational dyspnea. The patient is currently on 2 L of oxygen by nasal cannula with a pulse ox of 99% HEENT examination is grossly unremarkable. Mucous membranes are moist. No oral lesions. Neck supple. Full range of motion. No adenopathy thyromegaly or neck vein dist ention. Cardiovascular examination reveals regular rhythm rate. S1-S2 normal. No S3 or S4. No discernible murmur noted. Lungs reveal mostly clear breath sounds. Minimal rhonchi. No wheezes or crackles. Breath sounds equal bilaterally. Abdomen soft bowel sounds are heard. No masses or tenderness. Extremities are intact. No cyanosis clubbing or edema. Skin is without rash or lesion. Neurologic examination is brief but nonfocal. - Labs CBC & Chem 7: 09/21/23 06:01 09/21/23 06:01 Labs: Abnormal Lab Results - Last 24 Hours (Table) 09/21/23 09/21/23 Range/Units 06:01 06:01 Hgb 12.7 L (13.0-17.5) gm/dL RDW 16.3 H (11.5-15.5) % Plt Count 138 L (150-450) k/uL BUN 41 H (9-20) mg/dL Creatinine 1.53 H (0.66-1.25) mg/dL Assessment and Plan Plan: Shortness of breath, chest pain, most likely related to a COPD exacerbation. Clinically stable as the patient is being treated for an acute exacerbation Chest pain currently under investigation. Troponins are negative and the patient had a Lexiscan cardiac stress test and cardiac catheterization was done and the patient underwent PCI and stenting to SVG to diagonal. Please refer to the details of the cardiac catheterization. The procedure was successful. Acute kidney injury the creatinine is up to 1.5, consistent with contrast nephropathy History of ongoing tobacco use, primarily cigars, although the patient has 40 years of tobacco use, at 1 to 2 packs a day. Probable COPD, with chronic home oxygen use. History of ischemic cardiomyopathy, with an ejection fraction of 20 to 25%. Patient also has moderate to severe mitral regurgitation and mild tricuspid regurgitation History of CAD, with previous bypass grafting, and stent placement. Status post AICD placement. History of CHF. History of hypertension. History of hyperlipidemia. History of seizure disorder. History of hypothyroidism. Multiple other medical problems and comorbidities. Plan: Continue aspirin and Brilinta as dual antiplatelet agents Continue Coreg Cardiac catheterization and stenting was completed Continue with DuoNeb updrafts and Symbicort as maintenance and the patient is currently on a prednisone burst taper starting with 30 mg Symbicort as maintenance Continue losartan 25 mg p.o. daily Continue Farga Repeat creatinine tomorrow Patient has home O2 Patient has a home nebulizer
[2023-09-21 15:14] VITALS: BMI 24.2
--- NOTE | 2023-09-21 20:00 | PN ---
PROGRESS NOTE SUBJECTIVE: This 73-year-old white male status post heart catheterization with stents. He has history of COPD and ischemic cardiomyopathy. He has 100% proximal LAD, 75% circumflex, 100% RCA, occlusive in the saphenous vein graft from the PDA [place] and LAD with 95 stenosis. Underwent PCI and stenting of the SVG. Diagonal and 2 stents were inserted. He had no ventricular pressure and has been to Coreg, bronchodilators. Hemoglobin is 12.7, white count is 10.4, platelets 138, BUN is 21, creatinine is 1.5, sodium of 138. OBJECTIVE: VITAL SIGNS: Blood pressure 102/55, O2 99, temp 98.1, pulse 60s, respiratory rate 16 to 18. CARDIOVASCULAR: S1, S2. LUNGS: Decreased breath sounds. ABDOMEN: Soft. EXTREMITIES: No edema. SKIN: No rash or excoriation. NEUROLOGIC: Cranial nerves intact. LABORATORY DATA: Hemoglobin is 12.7, white count is 10.4, shortness of breath secondary to COPD exacerbation, acute kidney injury, nicotine addiction, COPD, ischemic cardiomyopathy, coronary artery disease, bypass, AICD, status post stents, Brilinta, Coreg, Symbicort, DuoNeb, oxygen at home, hypothyroidism, seizures, hypertension, chronic kidney disease. Continue current treatment. We got him on Farxiga, repeat creatinine, home O2, possibly go home. We started him on losartan, Farxiga, and nebulizer. Prognosis guarded. MMODL / IJN: [id number] /
[2023-09-22 08:30] LABS: African American GFR (CKD) 76 (>60 ml/min/1.73 sqM); Anion Gap 6 mmol/L; Blood Urea Nitrogen 33 mg/dL (9-20); Calcium 8.5 mg/dL (8.4-10.2); Carbon Dioxide 21 mmol/L (22-30); Chloride 110 mmol/L (98-107); Glucose 90 mg/dL (74-99); Non-African American GFR(CKD) 66 (>60 ml/min/1.73 sqM); Potassium 4.1 mmol/L (3.5-5.1); Sodium 137 mmol/L (137-145)
--- NOTE | 2023-09-22 09:19 | P.PN ---
Subjective Progress Note Date: 09/22/23 History of present illness: History of present illness: Patient is a pleasant 73-year-old male with significant past medical history of CAD status post CABG in 1995, congestive heart failure, dementia, hyperlipidemia, hypertension, seizure disorder, syncope, thyroid disorder, AICD placement, AAA repair, ischemic cardiomyopathy, tobacco abuse who presented with complaints of shortness of breath, dizziness, chest pain. States he does not follow with a supervisor photocomposition. He does smoke. He reports yesterday he was just sitting and developed shortness of breath dizziness and sharp chest pain that lasted approximately 15 minutes. Troponin negative x 3, potassium 4.5, creatinine 1.11, D-dimer 4.28. CTA of the chest was negative for PE, shows mild Cardilate cardiomegaly. Echocardiogram 09/17/2023 with EF 25-30%, moderate LVH, moderate to severe mitral regurgitation. He does report that his chest pain and breathing is better today. He reports feeling generally weak. He was evaluated by cardiothoracic surgery with recommendations for JENNY to further evaluate mitral valve. No recent heart cath. *Patient with some atypical chest pain and prior ischemic cardiomyopathy. EF appears decreased from previous and we will check Lexiscan stress test for now to evaluate for any reversible ischemia. His poor followup and noncompliance complicates care. May consider [facility] however unclear if he will followup, take his meds however he states he will. States "he was never given a supervisor photocomposition" His moderate to severe mitral regurgitaion is clearly secondary mitral regurgitation from his LV dilation and cardiomyopathy. No role for JENNY at this time as treatment is optimization of his heart failure regimen. If MR continues may consider JENNY, evaluation of mitral clip down the road. Continue Coreg, add Losartan and Jardiance. 09/19 Patient has had a four-vessel CABG done in [place] and also stenting done after that about 10 years ago along with AICD that was implanted in [place]. He is not currently following with any supervisor photocomposition. He denies having any prior chest pain before presentation. Intermittent blood pressure readings have been elevated. Heart rate is in the 60s. 09/20 Yesterday, patient underwent Lexiscan Cardiolite stress test which revealed stress-induced reversible ischemia apical lateral myocardium. EF 22%. Patient has been scheduled for cardiac catheterization today with Dr. Smith. He denies having any chest pain. Blood pressure 139/69, heart rate 61, pulse ox 98% on 2 L nasal cannula. 09/21 Yesterday, patient underwent cardiac catheterization with Dr. Smith which revealed CAD with 100 stent proximal LAD stenosis, 75% proximal circumflex stenosis, and 100% RCA stenosis. Patient has occluded SVG to PDA, patent FIORE to LAD, SVG to diagonal with 95% stenosis. No other remaining grafts noted by aortogram. Patient underwent PCI of the SVG to diagonal with plan for aggressive risk factor modification, continue dual antiplatelets with aspirin and Brilinta for 12 months and smoking cessation. Repeat blood work reveals BUN of 41 creatinine 1.53. Lasix was discontinued for today. He has been on 20 mg oral twice daily. 09/22 Patient denies having any chest pain or shortness of breath. He feels that he is getting stronger. Respiratory status seems stable. Repeat blood work today reveals potassium 4.1, BUN 33 creatinine 1.12. PHYSICAL EXAMINATION: This is a 73-year-old male n no apparent distress at the time of my examination. HEENT: Head is atraumatic, normocephalic. Pupils are equal, round. Sclerae anicteric. Conjunctivae are clear. Mucous membranes of the mouth are moist. Neck is supple. There is no jugular venous distention. No carotid bruit is heard. CHEST EXAMINATION: Lungs with diminished bases bilat. No chest wall tenderness is noted on palpation or with deep breathing. HEART EXAMINATION: Heart regular rate and rhythm. S1, S2 heard. No murmurs, gallops or rub. ABDOMEN: Soft, nontender. Bowel sounds are heard. EXTREMITIES: 2+ peripheral pulses with no evidence of peripheral edema and no calf tenderness noted. NEUROLOGIC EXAMINATION: Patient is awake, alert and oriented x3. IMPRESSION AND PLAN: CAD status post CABG 1995 Ischemic cardiomyopathy, decreased to 25-30% Acute on chronic systolic heart failure Moderate LVH Moderatesevere mitral regurgitation Tobacco abuse History of AAA repair Hypertension Hyperlipidemia Seizure disorder Status post AICD implantation Chest pain, atypical Poor followup, medical noncompliance PLAN: Continue cardiac medications Smoking cessation strongly emphasized. Patient is cleared for discharge from cardiology and may follow-up with Dr. Smith in 1 week. Nurse practitioner note has been reviewed, I agree with documented findings and plan of care. Patient was seen and examined. Objective - Vital Signs Vital signs: Vital Signs Temp 97.5 F L 09/22/23 00:08 Pulse 62 09/22/23 00:08 Resp 18 09/22/23 00:08 BP 127/55 09/22/23 00:08 Pulse Ox 98 09/22/23 00:08 FiO2 Intake & Output 09/21/23 09/22/23 09/22/23 18:59 06:59 18:59 Intake Total 240 Output Total 450 900 Balance -210 -900 Weight 68.039 kg Intake: Oral 240 Output: Urine 450 900 Other: Voiding Method Toilet Urinal - Labs CBC & Chem 7: 09/21/23 06:01 09/22/23 07:56
[2023-09-22 14:36] VITALS: BP 153/79; RESP 16; TEMP 97.6
[2023-09-22 16:36] VITALS: PULSE 54
--- NOTE | 2023-09-22 16:46 | P.PN ---
Subjective Progress Note Date: 09/22/23 On today's evaluation of 09/19/2023, the patient is being seen for a follow-up. The patient presented to the hospital because of chest pain. The patient lives in an assisted living home. The patient uses oxygen on an as-needed basis and the patient carries around [id number] smoking history. He is still smoking on and off. Along with his chest pain, the patient reported some shortness of breath and cough and congestion. Chest x-ray was normal. CT scan of the chest was done utilizing a CT angiogram protocol and this was also normal and the Doppler lower extremity was also normal. The patient is currently being treated for a component of COPD exacerbation. Based on his underlying coronary artery disease, the patient is going to undergo a cardiac stress test today. He has dementia, hypertension hyperlipidemia seizure disorder. The patient has undergone previous coronary bypass surgery and he has an AICD in place and he has also undergone previous coronary intervention and stenting. His baseline left medical ejection fraction is in the order of 20 to 25%.In terms of his labs, the patient's WBC count is 7.8 with hemoglobin 14. Troponins were negative. Procalcitonin level is at 0.04 and the D-dimer is at 4.28. The patient has normal electrolytes. The patient is currently on IV heparin pending cardiac stress test. Patient is also on DuoNeb nebulized treatments [id number] and a prednisone burst taper starting with 30 mg. No other significant events otherwise for now. On today's evaluation of 09/20/2023, the patient is free of any chest pain. He still having some limited shortness of breath. Note that the patient underwent a cardiac stress test yesterday and the results were abnormal forReversible ischemia. Lexiscan cardiac stress test showed an ejection fraction of 22% and the patient was found to have stress-induced reversible ischemia involving the apical lateral wall. Based on that, the patient is going to undergo a cardiac catheterization today. His EKG showing sinus bradycardia without any acute ST segment changes. The patient otherwise doing well. The patient is maintained on Symbicort regarding his COPD and DuoNeb updrafts and the patient is also on prednisone burst taper starting at 30 mg. He is on Lasix 20 mg p.o. twice a day. He is on aspirin. He is also on Coreg 3.125 mg p.o. twice daily and Lipitor 40 mg p.o. daily. On today's evaluation of 09/21/2022, the patient is being seen for a follow-up. The patient has no major respiratory difficulties. He also denies having any chest pain. Note that the patient underwent a cardiac catheterization yesterday and the patient was found to have [place] coronary artery disease with 100% proximal LAD, 75% circumflex and 100% RCA. There was also occlusion in the saphenous vein graft to PDA, FIORE to LAD was patent and SVG to diagonal had 95% stenosis. The patient underwent PCI and stenting of the SVG to diagonal and 2 stents were inserted. The patient had a normal left ventricular filling pressures and the patient is currently on dual platelet treatment with a combination of aspirin and Brilinta. Patient is also on Coreg 3.125 mg p.o. twice a day. The patient remains also on bronchodilators [id number] and prednisone burst taper. Denies having any other new complaints. Hemoglobin is at 12.7 with a white cell count of 10.4, platelet count is at 138, BUN is 41 wit h a creatinine of 1.5 and his sodium level is at 138. On 09/22/2022, the patient has no specific complaints. The patient is calm and comfortable. He was kept in the hospital as the patient had an acute kidney injury probably to contrast nephropathy.The blood work from today shows a improvement in creatinine the creatinine is down to 1.1 with a BUN of 33 and his sodium levels at 137. The patient denies having any specific complaints. The patient remains on aspirin and Brilinta. The patient is also on Coreg 3.125 mg twice a day. He is on Symbicort and DuoNeb updrafts. He remains on statins. He is also on oxygen at 2 L with a pulse ox of 99%. Objective - Vital Signs Vital signs: Vital Signs Temp 97.6 F 09/22/23 14:19 Pulse 54 L 09/22/23 16:11 Resp 16 09/22/23 14:19 BP 153/79 09/22/23 14:19 Pulse Ox 99 09/22/23 14:19 FiO2 Intake & Output 09/21/23 09/22/23 09/22/23 18:59 06:59 18:59 Intake Total 240 210 Output Total 450 900 Balance -210 -900 210 Weight 68.039 kg Intake: Oral 240 210 Output: Urine 450 900 Other: Voiding Method Toilet Urinal - Exam No acute distress, oriented 3. No audible wheezing, use of accessory muscles, or conversational dyspnea. The patient is currently on 2 L of oxygen by nasal cannula with a pulse ox of 99% HEENT examination is grossly unremarkable. Mucous membranes are moist. No oral lesions. Neck supple. Full range of motion. No adenopathy thyromegaly or neck vein distention. Cardiovascular examination reveals regular rhythm rate. S1-S2 normal. No S3 or S4. No discernible murmur noted. Lungs reveal mostly clear breath sounds. Minimal rhonchi. No wheezes or crackles. Breath sounds equal bilaterally. Abdomen soft bowel sounds are heard. No masses or tenderness. Extremities are intact. No cyanosis clubbing or edema. Skin is without rash or lesion. Neurologic examination is brief but nonfocal. - Labs CBC & Chem 7: 09/21/23 06:01 09/22/23 07:56 Labs: Abnormal Lab Results - Last 24 Hours (Table) 09/22/23 Range/Units 07:56 Chloride 110 H (98-107) mmol/L Carbon Dioxide 21 L (22-30) mmol/L BUN 33 H (9-20) mg/dL Assessment and Plan Plan: Shortness of breath, chest pain, most likely related to a COPD exacerbation. Clinically stable as the patient is being treated for an acute exacerbation Acute hypoxic respiratory failure currently on 2 L of oxygen by nasal cannula. The patient has home O2 and is more so open acute on top of chronic hypoxic respiratory failure. Chest pain currently under investigation. Troponins are negative and the patient had a Lexiscan cardiac stress test and cardiac catheterization was done and the patient underwent PCI and stenting to SVG to diagonal. Please refer to the details of the cardiac catheterization. The procedure was successful. Acute kidney injury the creatinine is up to 1.5, consistent with contrast nephropathy, improved and the creatinine is down to 1.1 History of ongoing tobacco use, primarily cigars, although the patient has 40 years of tobacco use, at 1 to 2 packs a day. Probable COPD, with chronic home oxygen use. History of ischemic cardiomyopathy, with an ejection fraction of 20 to 25%. Patient also has moderate to severe mitral regurgitation and mild tricuspid regurgitation History of CAD, with previous bypass grafting, and stent placement. Status post AICD placement. History of CHF. History of hypertension. History of hyperlipidemia. History of seizure disorder. History of hypothyroidism. Multiple other medical problems and comorbidities. Plan: Continue aspirin and Brilinta as dual antiplatelet agents Continue Coreg Cardiac catheterization and stenting was completed Continue with DuoNeb updrafts and Symbicort as maintenance and the patient is currently on a prednisone burst taper starting with 30 mg Symbicort as maintenance Continue losartan 25 mg p.o. daily Continue Farxiga Creatinine is improved and is down to 1.1 Patient has home O2 Patient has a home nebulizer Possibly home today
== END 2023-09-22 17:28 | DRG 321 ==
LOC: EC 21:09 → 6NMEDSUR 09-17 07:36 → OBSVTOIN 09-17 07:37 → 6NMEDSUR 09-17 12:35
PROVIDERS: ADMIT Family Medicine; ATTEND Family Medicine
PROC: 027035Z Dilation of Coronary Artery, One Artery with Two Drug-eluting Intraluminal Devices, Percutaneous Approach (ICD-10-PCS; principal; 2023-09-17)
PROC: 4A023N7 Measurement of Cardiac Sampling and Pressure, Left Heart, Percutaneous Approach (ICD-10-PCS; 2023-09-17)
PROC: B2111ZZ Fluoroscopy of Multiple Coronary Arteries using Low Osmolar Contrast (ICD-10-PCS; 2023-09-17)
PROC: B2131ZZ Fluoroscopy of Multiple Coronary Artery Bypass Grafts using Low Osmolar Contrast (ICD-10-PCS; 2023-09-17)
PROC: B2181ZZ Fluoroscopy of Left Internal Mammary Bypass Graft using Low Osmolar Contrast (ICD-10-PCS; 2023-09-17)
PROC: 4A02XM4 Measurement of Cardiac Total Activity, External Approach (ICD-10-PCS; 2023-09-19)
DX: I11.0 Hypertensive heart disease with heart failure (principal); I50.23 Acute on chronic systolic (congestive) heart failure; J44.1 Chronic obstructive pulmonary disease with (acute) exacerbation; I25.810 Atherosclerosis of coronary artery bypass graft(s) without angina pectoris; I25.5 Ischemic cardiomyopathy; E78.5 Hyperlipidemia, unspecified; E03.9 Hypothyroidism, unspecified; Z79.890 Hormone replacement therapy; F17.290 Nicotine dependence, other tobacco product, uncomplicated; F25.9 Schizoaffective disorder, unspecified; I25.10 Atherosclerotic heart disease of native coronary artery without angina pectoris; R31.9 Hematuria, unspecified; F31.9 Bipolar disorder, unspecified; G40.909 Epilepsy, unspecified, not intractable, without status epilepticus; F03.90 Unspecified dementia, unspecified severity, without behavioral disturbance, psychotic disturbance, mood disturbance, and anxiety; Z95.810 Presence of automatic (implantable) cardiac defibrillator; I25.2 Old myocardial infarction; I27.20 Pulmonary hypertension, unspecified; N14.11 Contrast-induced nephropathy; X58.XXXA Exposure to other specified factors, initial encounter; T50.8X5A Adverse effect of diagnostic agents, initial encounter; I73.9 Peripheral vascular disease, unspecified; Z79.82 Long term (current) use of aspirin; Z79.52 Long term (current) use of systemic steroids; Z91.199 Patient's noncompliance with other medical treatment and regimen due to unspecified reason; Z86.79 Personal history of other diseases of the circulatory system; Z95.5 Presence of coronary angioplasty implant and graft; Z88.2 Allergy status to sulfonamides; Z88.7 Allergy status to serum and vaccine; Z88.0 Allergy status to penicillin
CPT/HCPCS: 36415; 71046; 71250; 71275; 76937; 78452; 80048; 80053; 80061; 83735; 84145; 84484; 85025; 85379; 85610; 85730; 93005; 93017; 93306; 93459; 93567; 93970; 94640; 94760; 99285

== ENCOUNTER 2023-10-16 11:57 | Observation (INO) | payer MEDICARE, OTHER ==
--- NOTE | 2023-10-16 12:30 | ED ---
General Adult HPI - General Chief complaint: Shortness of Breath Stated complaint: Dyspnea Time Seen by Provider: 10/16/23 12:03 Source: patient, EMS, RN notes reviewed Mode of arrival: EMS Limitations: no limitations - History of Present Illness Initial comments: Patient is a pleasant 73-year-old male presenting to the emergency department with concerns for shortness of breath. Patient currently symptom-free. Patient states today he has had 2 episodes of shortness of breath. Patient states each 1 only lasted for seconds. Patient states he does have similar problems chronically however normally it only occurs once daily where today it occurred twice daily. Patient denies ever having any chest discomfort with this. Still no chest discomfort at this time. No leg pain or leg swelling. - Related Data Home Medications Medication Instructions Recorded Confirmed Cyanocobalamin (Vitamin B-12) 1,000 mcg PO DAILY@0800 08/23/22 09/17/23 [Vitamin B-12] Melatonin 6 mg PO HS@209908/23/22 09/17/23 Sennosides/Docusate Sodium [Senna 2 tab PO HS@209908/23/22 09/17/23 Plus 8.6-50 mg Tablet] Sucralfate [Carafate] 1 gm PO BID@0800,1700 08/23/22 09/17/23 Famotidine [Pepcid] 20 mg PO BID@0700,1700 08/31/22 09/17/23 Acetaminophen [Tylenol 8 Hour] 650 mg PO TID@0800,1400,2000 09/17/23 09/17/23 Aspirin EC [Ecotrin Low Dose] 81 mg PO DAILY@79909/17/23 09/17/23 Atorvastatin Calcium [Lipitor] 40 mg PO HS@209909/17/23 09/17/23 Ciclopirox Olamine [Loprox 0.77% 1 applic TOPICAL BID@0700,1900 09/17/23 09/17/23 cream] Escitalopram [Lexapro] 20 mg PO DAILY@0800 09/17/23 09/17/23 Folic Acid 0.4 mg PO DAILY@0800 09/17/23 09/17/23 HYDROcodone/APAP 5-325MG [Horton 1 tab PO Q6HR PRN 09/17/23 09/17/23 5-325] Levothyroxine Sodium [Synthroid] 100 mcg PO DAILY@0700 09/17/23 09/17/23 Mirtazapine 30 mg PO HS@2100 09/17/23 09/17/23 carvediloL [Coreg] 3.125 mg PO BID@0800,2000 09/17/23 09/17/23 Previous Rx's Medication Instructions Recorded Budesonide-Formot 160-4.5 Mcg 2 puff INHALATION RT-BID 2 Days #1 09/21/23 [Symbicort 160-4.5 Mcg Inhaler] each Dapagliflozin Propanediol [Farxiga] 10 mg PO DAILY 90 Days #90 tab 09/21/23 Ipratropium-Albuterol Nebulize 3 ml INHALATION RT-QID 90 Days 09/21/23 [Duoneb 0.5 mg-3 mg/3 ml Soln] #360 each Losartan [Cozaar] 25 mg PO DAILY 90 Days #90 tab 09/21/23 Nitroglycerin Sl Tabs [Nitrostat] 0.4 mg SUBLINGUAL Q5M PRN 90 Days 09/21/23 #100 tab Ticagrelor [Brilinta] 90 mg PO BID 30 Days #60 tab 09/21/23 Allergies Allergy/AdvReac Type Severity Reaction Status Date / Time morphine Allergy Anaphylaxis Verified 10/16/23 12:11 Penicillins Allergy Swelling Verified 10/16/23 12:11 on entire body Influenza Virus Vaccines AdvReac Unknown Verified 10/16/23 12:11 pneumococcal vaccine AdvReac Unknown Verified 10/16/23 12:11 Review of Systems ROS Statement: Those systems with pertinent positive or pertinent negative responses have been documented in the HPI. ROS Other: All systems not noted in ROS Statement are negative. Constitutional: Denies: fever Eyes: Denies: eye pain ENT: Denies: ear pain, congestion Respiratory: Reports: dyspnea. Denies: cough Cardiovascular: Denies: chest pain Endocrine: Denies: fatigue Gastrointestinal: Denies: abdominal pain Musculoskeletal: Denies: back pain Past Medical History Past Medical History: Coronary Artery Disease (CAD), Heart Failure, COPD, Dementia, Hyperlipidemia, Hypertension, Myocardial Infarction (DE), Seizure Disorder, Syncope, Thyroid Disorder Additional Past Medical History / Comment(s): Ischemic cardiomyopathy, EF 20- 25%, last seizure about 2 yrs ago, hypothyroid.neuropathy "WHEN HE WORKED HE HAD A CRUSHING INJURY -COLLAPSED LUNGS C/T AND HAS CHRONIC BACK PAIN"" pt states he is schizophrenic/bipolar. TRIPLE A REPAIR AUG 2022 History of Any Multi-Drug Resistant Organisms: None Reported Past Surgical History: AICD, Back Surgery, Coronary Bypass/CABG, Heart Catheterization, Heart Catheterization With Stent Additional Past Surgical History / Comment(s): 1995 CABG 4 vessel in [place], has had 2"HEART CATHS/had 2 STENTS after cabg sx.pt stated they were done in [facility]. "sx on tailbone, cortisone injections, devin inguinal hernia repair Past Anesthesia/Blood Transfusion Reactions: No Reported Reaction Date of Last Stent Placement:: 1995 Type of Cardiac Device: AICD Device Placement Date:: 1995 in [facility] Past Psychological History: Anxiety, Depression, Schizoaffective Disorder, Schizophrenia Smoking Status: Current every day smoker Past Alcohol Use History: None Reported Past Drug Use History: None Reported - Past Family History Mother Family Medical History: Respiratory Disorder Additional Family Medical History / Comment(s): Mother had TB Father Additional Family Medical History / Comment(s): Father was an alcoholic, was killed in a motor vehicle accident General Exam Limitations: no limitations General appearance: alert, in no apparent distress Head exam: Present: normocephalic Eye exam: Present: normal appearance Neck exam: Present: normal inspection Respiratory exam: Present: normal lung sounds bilaterally. Absent: chest wall tenderness Cardiovascular Exam: Present: regular rate, normal rhythm Expanded Peripheral pulses: 2+: Radial (R), Radial (L), Dorsalis Pedis (R), Dorsalis Pedis (L) GI/Abdominal exam: Present: soft. Absent: tenderness Extremities exam: Present: normal inspection. Absent: pedal edema, calf tenderness Neurological exam: Present: alert Psychiatric exam: Present: normal affect, normal mood Skin exam: Present: normal color Course Vital Signs 10/16/23 10/16/23 10/16/23 11:57 12:02 12:30 Temperature 97.9 F Pulse Rate 68 66 67 Respiratory 16 14 12 Rate Blood Pressure 129/70 129/70 113/64 O2 Sat by Pulse 98 96 95 Oximetry 10/16/23 10/16/23 13:00 13:30 Temperature Pulse Rate 65 72 Respiratory 12 12 Rate Blood Pressure 103/58 120/63 O2 Sat by Pulse 96 97 Oximetry EKG Findings - EKG Results: EKG: interpreted by ERMD (Paced rhythm with rate of 67. Inferior Q waves.), normal axis, normal ST/T Medical Decision Making - Medical Decision Making Was pt. sent in by a medical professional or institution (, PILO, WEB DEVELOPMENT DIRECTOR, urgent care, hospital, or fdc...) When possible be specific @ -Patient was sent in by jail Did you speak to anyone other than the patient for history (EMS, parent, family, police, friend...)? What history was obtained from this source @ -No Did you review nursing and triage notes (agree or disagree)? Why? @ -I reviewed and agree with nursing and triage notes Were old charts reviewed (outside hosp., previous admission, EMS record, old EKG, old radiological studies, urgent care reports/EKG's, fdc records)? Report findings @ -Previous chest x-ray reviewed Differential Diagnosis (chest pain, altered mental status, abdominal pain women, abdominal pain men, vaginal bleeding, weakness, fever, dyspnea, syncope, headache, dizziness, GI bleed, back pain, seizure, CVA, palpatations, mental health, musculoskeletal)? @ -Differential Dyspnea: Coronary syndrome, arrhythmia, tamponade, asthma, COPD, pulmonary embolism, pneumonia, pneumothorax, pulmonary effusion, anaphylaxis, diabetic ketoacidosis, flailed chest, pulmonary contusion, diaphragmatic rupture, anemia, neuromuscular, this is not meant to be an all-inclusive list. EKG interpreted by me (3pts min.). @ -As above X-rays interpreted by me (1pt min.). @ -Chest x-ray does not reveal acute process. Postoperative changes. CT interpreted by me (1pt min.). @ -CT angio shows no acute abnormality. U/S interpreted by me (1pt. min.). @ -None done What testing was considered but not performed or refused? (CT, X-rays, U/S, labs)? Why? @ -None What meds were considered but not given or refused? Why? @ -None Did you discuss the management of the patient with other professionals (professionals i.e. PILO Cruz, WEB DEVELOPMENT DIRECTOR, lab, RT, psych nurse, director of social media marketing, handle turner, teacher, nuclear medicine officer, case worker)? Give summary @ -Case discussed with Dr. Verdin who will admit his patient Was smoking cessation discussed for >3mins.? @ -No Was critical care preformed (if so, how long)? @ -No Were there social determinants of health that impacted care today? How? (Homelessness, low income, unemployed, alcoholism, drug addiction, transportation, low edu. Level, literacy, decrease access to med. care, nursing home, r ehab)? @ -No Was there de-escalation of care discussed even if they declined (Discuss DNR or withdrawal of care, Hospice)? DNR status @ -No What co-morbidities impacted this encounter? (DM, HTN, Smoking, COPD, CAD, Cancer, CVA, ARF, Chemo, Hep., AIDS, mental health diagnosis, sleep apnea, morbid obesity)? @ -History of cardiac and lung disease Was patient admitted / discharged? Hospital course, mention meds given and route, prescriptions, significant lab abnormalities, going to OR and other p ertinent info. @ -Patient presents with episodes of dyspnea. Patient has elevated D-dimer and CT scan shows no pulmonary embolism. Patient reevaluated and now changes his story stating that he has had some chest discomfort. Patient is updated on results and plan. Patient will be admitted. Admission orders written. Cardiology will be placed on consult. Undiagnosed new problem with uncertain prognosis? @ -No Drug Therapy requiring intensive monitoring for toxicity (Heparin, Nitro, Insulin, Cardizem)? @ -No Were any procedures done? @ -No Diagnosis/symptom? @ -Chest pain, dyspnea Acute, or Chronic, or Acute on Chronic? @ -Acute, acute Uncomplicated (without systemic symptoms) or Complicated (systemic symptoms)? @ -Default Side effects of treatment? @ -No Exacerbation, Progression, or Severe Exacerbation? @ -No Poses a threat to life or bodily function? How? (Chest pain, USA, DE, pneumonia, PE, COPD, DKA, ARF, appy, cholecystitis, CVA, Diverticulitis, Homicidal, Suicidal, threat to staff... and all critical care pts) @ -No - Lab Data Result diagrams: 10/16/23 12:28 10/16/23 12:28 Lab Results 10/16/23 10/16/23 10/16/23 Range/Units 12:28 12:28 12:28 WBC 7.6 (3.8-10.6) k/uL RBC 4.89 (4.30-5.90) m/uL Hgb 13.9 (13.0-17.5) gm/dL Hct 44.7 (39.0-53.0) % MCV 91.5 (80.0-100.0) fL MCH 28.4 (25.0-35.0) pg MCHC 31.0 (31.0-37.0) g/dL RDW 16.1 H (11.5-15.5) % Plt Count 185 (150-450) k/uL MPV 7.5 Neutrophils % 51 % Lymphocytes % 37 % Monocytes % 7 % Eosinophils % 2 % Basophils % 1 % Neutrophils # 3.8 (1.3-7.7) k/uL Lymphocytes # 2.8 (1.0-4.8) k/uL Monocytes # 0.5 (0-1.0) k/uL Eosinophils # 0.1 (0-0.7) k/uL Basophils # 0.0 (0-0.2) k/uL Hypochromasia Slight Anisocytosis Slight PT 10.9 (10.0-12.5) sec INR 1.0 (<1.2) APTT 25.7 (22.0-30.0) sec D-Dimer 4.81 H (<0.60) mg/L FEU Sodium 139 (137-145) mmol/L Potassium 4.9 (3.5-5.1) mmol/L Chloride 109 H (98-107) mmol/L Carbon Dioxide 22 (22-30) mmol/L Anion Gap 8 mmol/L BUN 28 H (9-20) mg/dL Creatinine 1.07 (0.66-1.25) mg/dL Est GFR (CKD-EPI)AfAm 80 (>60 ml/min/1.73 sqM) Est GFR (CKD-EPI)NonAf 70 (>60 ml/min/1.73 sqM) Glucose 92 (74-99) mg/dL Plasma Lactic Acid Rigoberto (0.7-2.0) mmol/L Calcium 9.0 (8.4-10.2) mg/dL Magnesium 1.9 (1.6-2.3) mg/dL Total Bilirubin 0.4 (0.2-1.3) mg/dL AST 27 (17-59) U/L ALT 19 (4-49) U/L Alkaline Phosphatase 93 (38-126) U/L Troponin I (0.000-0.034) ng/mL NT-Pro-B Natriuret Pep 851 pg/mL Total Protein 7.2 (6.3-8.2) g/dL Albumin 4.3 (3.5-5.0) g/dL 10/16/23 10/16/23 Range/Units 12:28 12:28 WBC (3.8-10.6) k/uL RBC (4.30-5.90) m/uL Hgb (13.0-17.5) gm/dL Hct (39.0-53.0) % MCV (80.0-100.0) fL MCH (25.0-35.0) pg MCHC (31.0-37.0) g/dL RDW (11.5-15.5) % Plt Count (150-450) k/uL MPV Neutrophils % % Lymphocytes % % Monocytes % % Eosinophils % % Basophils % % Neutrophils # (1.3-7.7) k/uL Lymphocytes # (1.0-4.8) k/uL Monocytes # (0-1.0) k/uL Eosinophils # (0-0.7) k/uL Basophils # (0-0.2) k/uL Hypochromasia Anisocytosis PT (10.0-12.5) sec INR (<1.2) APTT (22.0-30.0) sec D-Dimer (<0.60) mg/L FEU Sodium (137-145) mmol/L Potassium (3.5-5.1) mmol/L Chloride (98-107) mmol/L Carbon Dioxide (22-30) mmol/L Anion Gap mmol/L BUN (9-20) mg/dL Creatinine (0.66-1.25) mg/dL Est GFR (CKD-EPI)AfAm (>60 ml/min/1.73 sqM) Est GFR (CKD-EPI)NonAf (>60 ml/min/1.73 sqM) Glucose (74-99) mg/dL Plasma Lactic Acid Rigoberto 1.5 (0.7-2.0) mmol/L Calcium (8.4-10.2) mg/dL Magnesium (1.6-2.3) mg/dL Total Bilirubin (0.2-1.3) mg/dL AST (17-59) U/L ALT (4-49) U/L Alkaline Phosphatase (38-126) U/L Troponin I <0.012 (0.000-0.034) ng/mL NT-Pro-B Natriuret Pep pg/mL Total Protein (6.3-8.2) g/dL Albumin (3.5-5.0) g/dL Disposition Clinical Impression: Chest pain, Dyspnea Disposition: ADMITTED IP TO THIS HOSP Is patient prescribed a controlled substance at d/c from ED?: No Time of Disposition: 15:04
[2023-10-16 12:43] LABS: Anisocytosis Slight; Basophils % (A) 1 %; Eosinophils # (A) 0.1 k/uL (0-0.7); Eosinophils % (A) 2 %; HCT 44.7 % (39.0-53.0); HGB 13.9 gm/dL (13.0-17.5); Hypochromasia Slight; Lymphocytes # (A) 2.8 k/uL (1.0-4.8); Lymphocytes % (A) 37 %; MCH 28.4 pg (25.0-35.0); MCV 91.5 fL (80.0-100.0); Mean Platelet Volume 7.5; Monocytes # (A) 0.5 k/uL (0-1.0); Monocytes % (A) 7 %; Neutrophils # (A) 3.8 k/uL (1.3-7.7); Neutrophils % (A) 51 %; Platelet Count 185 k/uL (150-450); RBC 4.89 m/uL (4.30-5.90); RDW 16.1 % (11.5-15.5); WBC 7.6 k/uL (3.8-10.6)
[2023-10-16 13:05] LABS: Partial Thromboplastin Time 25.7 sec (22.0-30.0); Prothrombin Time 10.9 sec (10.0-12.5)
[2023-10-16 13:07] LABS: ALT 19 U/L (4-49); AST 27 U/L (17-59); African American GFR (CKD) 80 (>60 ml/min/1.73 sqM); Albumin 4.3 g/dL (3.5-5.0); Alkaline Phosphatase 93 U/L (38-126); Anion Gap 8 mmol/L; Blood Urea Nitrogen 28 mg/dL (9-20); Carbon Dioxide 22 mmol/L (22-30); Chloride 109 mmol/L (98-107); Glucose 92 mg/dL (74-99); Magnesium 1.9 mg/dL (1.6-2.3); Non-African American GFR(CKD) 70 (>60 ml/min/1.73 sqM); Potassium 4.9 mmol/L (3.5-5.1); Sodium 139 mmol/L (137-145); Total Bilirubin 0.4 mg/dL (0.2-1.3); Total Protein 7.2 g/dL (6.3-8.2)
[2023-10-16 13:13] LABS: NT-Pro-B-Type Natriuretic Pept 851 pg/mL
--- NOTE | 2023-10-16 13:17 | XR ---
EXAMINATION TYPE: XR chest 2V DATE OF EXAM: 10/16/2023 12:54 PM CLINICAL INDICATION:Male, 73 years old with history of difficulty breathing; H COMPARISON: Chest radiographs from 09/16/2023 TECHNIQUE: XR chest 2V Frontal and lateral views of the chest. FINDINGS: Lungs/Pleura: There is no evidence of pleural effusion, focal consolidation, or pneumothorax. Pulmonary vascularity: Pulmonary vascular congestion. Heart/mediastinum: Cardiomediastinal silhouette is enlarged and stable. Three lead cardiac conduction device overlying the left hemithorax with lead tips projecting over the right ventricle, right atriu m and coronary sinus. Musculoskeletal: No acute osseous pathology. Midline sternotomy wires are noted. Other findings: None IMPRESSION: Cardiomegaly and mild pulmonary vascular congestion. Correlate with BNP for congestive heart failure.
--- NOTE | 2023-10-16 14:30 | CT ---
EXAMINATION TYPE: CT angio chest CT DLP: 278.8 mGycm, Automated exposure control for dose reduction was used. DATE OF EXAM: 10/16/2023 2:22 PM COMPARISON: CTA chest 09/17/2023. CLINICAL INDICATION:Male, 73 years old with history of dyspnea; Inreasingly weak and SOB. Recent sten t sx TECHNIQUE/CONTRAST: CTA scan of the thorax is performed with IV Contrast, patient injected with 100 mL of Isovue 300, MIP images are created and reviewed these are created on a separate workstation.. FINDINGS: Pulmonary Artery: There is no evidence for a filling defect within the pulmonary vasculature to sugge st acute pulmonary embolism. The pulmonary artery is of normal size. Lungs/Pleura: Paraseptal emphysematous changes are identified in the lung apices including a pulmonar y bleb. No evidence of pleural effusion or pneumothorax Airway: Large airways are patent. Heart: Mild cardiomegaly with prominent left ventricle Vasculature: Mild atherosclerotic calcifications are present throughout the aorta and its branches. Mediastinum: No gross evidence of adenopathy. Musculoskeletal: No acute osseous abnormalities Soft Tissues: Unremarkable. Lower neck: No significant findings. Upper Abdomen: Sequela of prior granulomatous disease involving the liver and spleen.. IMPRESSION: 1. No evidence of pulmonary embolism. 2. Emphysematous changes of the lungs. 3. Stable cardiomegaly.
[2023-10-16] MEDS ORDERED: NITROGLYCERIN SL TABS 0.4 MG TAB SUBLINGUAL PRN (15:04)
[2023-10-16] MEDS: ASPIRIN 81 MG PO STA (15:33)
[2023-10-16] MEDS: NITROGLYCERIN OINT 1 INCH/GM PACKET TOPICAL SCH (15:38)
[2023-10-17 07:23] VITALS: PULSE 74
[2023-10-17 07:56] VITALS: BP 135/69; RESP 20; TEMP 98.1
[2023-10-17] MEDS ORDERED: LOSARTAN 25 MG TAB PO SCH (08:00)
[2023-10-17] MEDS: ASPIRIN 325 MG TAB PO SCH (08:50)
[2023-10-17] MEDS ORDERED: NITROGLYCERIN SL TABS 0.4 MG TAB SUBLINGUAL PRN (11:34)
--- NOTE | 2023-10-17 11:45 | P.CRDCN ---
History of Present Illness Consult date: 10/17/23 Consult reason: chest pain History of present illness: History of present illness: This is a 73-year-old male recently established with Dr. Smith. He has a significant past medical history of CAD status post CABG in 1995 in [place], congestive heart failure, dementia, hyperlipidemia, hypertension, seizure disorder, syncope, thyroid disorder, AICD placement 10 years ago in [place], AAA repair, ischemic cardiomyopathy, tobacco abuse, COPD. We have been asked to evaluate the patient for chest pain. Patient states that he is having dif ficulty in breathing since he had his stents done. Patient denies having any chest pain. He states he has walked well in the emergency center with no problems. Patient was hospitalized at [facility] and September which time he presented with chest pain underwent cardiac catheterization following an abnormal Lexiscan stress test with Dr. Smith which revealed: 1. [place] CAD including 100% proximal LAD stenosis, 75% proximal circumflex stenosis, 100% RCA stenosis 2. Occluded SVG to PDA, patent FIORE to LAD, SVG to diagonal with 95% stenosis. No other remaining grafts noted by aortogram 3. Status post PCI SVG to diagonal with 3.5 x 12 mm Xience ZACKERY proximally, 2.5 x 23 mm Xience ZACKERY at distal SVG into diagonal post dilated with a 3.0 NC balloon 4. Normal left sided filling pressures EKG sinus rhythm Chest x-ray: Cardiomegaly and mild pulmonary vascular congestion. CTA of the chest revealed no evidence of pulmonary embolism. Emphysematous changes of the lungs, stable cardiomegaly Echocardiogram performed 09/17/2023 revealed EF 25 to 30%, moderate increase left ventricular wall thickening, moderate mitral annular calcification, moderate to severe mitral regurgitation, mild tricuspid regurgitation. Home cardiac medications: Aspirin 81 mg daily, atorvastatin 40 mg at bedtime, Coreg 3.125 mg twice daily, Farxiga 10 mg daily, losartan 25 mg daily, Nitrostat as needed, Brilinta 90 mg twice daily, also on levothyroxine 100 mcg daily. Review Of Systems: At the time of my exam: CONSTITUTIONAL: Denies fever or chills. HEENT: Denies blurred vision, vision changes, or eye pain. Denies hemoptysis CARDIOVASCULAR: Denies chest pain. Denies orthopnea. Denies PND. Denies pal pitations RESPIRATORY: Reports shortness of breath. GASTROINTESTINAL: Denies abdominal pain. Denies nausea or vomiting. HEMATOLOGIC: Denies bleeding disorders. GENITOURINARY: Denies any blood in urine. SKIN: Denies pruitis. Denies rash. Physical examination: Gen: This is a 73-year-old male in no acute distress VS: reviewed HEENT: Head is atraumatic, normocephalic. Pupils equal, round. Sclerae is anicteric. NECK: Supple. No JVD. LUNGS: Clear to auscultation. No wheezes or rhonchi. No intercostal retractions. HEART: Regular rate and rhythm. No murmur. ABDOMEN: Soft No tenderness. EXTREMITIES: No pedal edema. No calf tenderness. NEUROLOGICAL: Patient is awake, alert and oriented x3. Assessment: Dyspnea secondary to ischemic cardiomyopathy, COPD CAD status post PCI of the SVG to diagonal times 04/02/2024 CABG 1995 Ischemic cardiomyopathy, decreased to 25-30% Chronic systolic heart failure, stable without exacerbation Moderate LVH Moderatesevere mitral regurgitation Tobacco abuse History of AAA repair Hypertension Hyperlipidemia Seizure disorder Status post AICD implantation Poor followup, medical noncompliance Plan: Resume patient's home cardiac medications Smoking cessation No need to repeat echocardiogram Patient is cleared for discharge from cardiology and may follow-up with Dr. Smith in 1 to 2 weeks. Thank you kindly for this consultation. Nurse practitioner note has been reviewed, I agree with documented findings and plan of care. Patient was seen and examined. Past Medical History Past Medical History: Coronary Artery Disease (CAD), Heart Failure, COPD, Dementia, Hyperlipidemia, Hypertension, Myocardial Infarction ([place]), Seizure Disorder, Syncope, Thyroid Disorder Additional Past Medical History / Comment(s): Ischemic cardiomyopathy, EF 20- 25%, last seizure about 2 yrs ago, hypothyroid.neuropathy "WHEN HE WORKED HE HAD A CRUSHING INJURY -COLLAPSED LUNGS C/T AND HAS CHRONIC BACK PAIN"" pt states he is schizophrenic/bipolar. TRIPLE A REPAIR AUG 2022 History of Any Multi-Drug Resistant Organisms: None Reported Past Surgical History: AICD, Back Surgery, Coronary Bypass/CABG, Heart Catheterization, Heart Catheterization With Stent Additional Past Surgical History / Comment(s): 1995 CABG 4 vessel in [place], has had 2"HEART CATHS/had 2 STENTS after cabg sx.pt stated they were done in [facility]. "sx on tailbone, cortisone injections, devin inguinal hernia repair Past Anesthesia/Blood Transfusion Reactions: No Reported Reaction Date of Last Stent Placement:: 1995 Type of Cardiac Device: AICD Device Placement Date:: 1995 in [facility] Past Psychological History: Anxiety, Depression, Schizoaffective Disorder, Schizophrenia Smoking Status: Current every day smoker Past Alcohol Use History: None Reported Past Drug Use History: None Reported - Past Family History Mother Family Medical History: Respiratory Disorder Additional Family Medical History / Comment(s): Mother had TB Father Additional Family Medical History / Comment(s): Father was an alcoholic, was killed in a motor vehicle accident Medications and Allergies Home Medications Medication Instructions Recorded Confirmed Type Cyanocobalamin (Vitamin B-12) 1,000 mcg PO DAILY@0800 08/23/22 10/16/23 History [Vitamin B-12] Melatonin 6 mg PO HS@199908/23/22 10/16/23 History Sennosides/Docusate Sodium [Senna 2 tab PO HS@199908/23/22 10/16/23 History Plus 8.6-50 mg Tablet] Sucralfate [Carafate] 1 gm PO BID@0800,199908/23/22 10/16/23 History Famotidine [Pepcid] 20 mg PO BID@0700,1700 08/31/22 10/16/23 History Acetaminophen [Tylenol 8 Hour] 650 mg PO TID@0800,1400,199909/17/23 10/16/23 History Aspirin EC [Ecotrin Low Dose] 81 mg PO DAILY@0800 09/17/23 10/16/23 History Atorvastatin Calcium [Lipitor] 40 mg PO HS@199909/17/23 10/16/23 History Escitalopram [Lexapro] 20 mg PO DAILY@0800 09/17/23 10/16/23 History Folic Acid 0.4 mg PO DAILY@0800 09/17/23 10/16/23 History HYDROcodone/APAP 5-325MG [[place] 1 tab PO Q6HR PRN 09/17/23 10/16/23 History 5-325] Levothyroxine Sodium [Synthroid] 100 mcg PO DAILY@0700 09/17/23 10/16/23 History Mirtazapine 30 mg PO HS@199909/17/23 10/16/23 History carvediloL [Coreg] 3.125 mg PO BID@0800,1700 09/17/23 10/16/23 History Nitroglycerin Sl Tabs [Nitrostat] 0.4 mg SUBLINGUAL Q5M PRN 90 Days 09/21/23 10/16/23 Rx #100 tab Budesonide-Formot 160-4.5 Mcg 2 puff INHALATION RT-BID@799,199910/16/23 10/16/23 History [Symbicort 160-4.5 Mcg Inhaler] Dapagliflozin Propanediol [Farxiga] 10 mg PO DAILY@0800 10/16/23 10/16/23 History Ipratropium-Albuterol Nebulize 3 ml INHALATION RT-QID@,,16,10/16/23 10/16/23 History [Duoneb 0.5 mg-3 mg/3 ml Soln] Losartan [Cozaar] 25 mg PO DAILY@0810/16/23 10/16/23 History Ticagrelor [Brilinta] 90 mg PO BID@0800,199910/16/23 10/16/23 History oxyCODONE-APAP 5-325MG [Percocet 1 tab PO Q4H PRN 10/16/23 10/16/23 History 5-325 mg] Allergies Allergy/AdvReac Type Severity Reaction Status Date / Time morphine Allergy Anaphylaxis Verified 10/16/23 16:00 Penicillins Allergy Swelling Verified 10/16/23 16:00 on entire body Influenza Virus Vaccines AdvReac Unknown Verified 10/16/23 16:00 pneumococcal vaccine AdvReac Unknown Verified 10/16/23 16:00 Physical Exam Vitals: Vital Signs Temp Pulse Resp BP Pulse Ox 10/17/23 07:50 20 10/17/23 07:35 98.1 F 74 18 135/69 95 10/17/23 06:50 74 18 161/80 98 10/17/23 02:17 87 20 97 10/17/23 00:30 62 22 111/72 96 10/16/23 23:33 63 22 113/60 96 10/16/23 23:30 56 L 23 107/52 95 10/16/23 22:30 57 L 21 103/48 95 10/16/23 22:00 56 L 18 108/55 95 10/16/23 21:30 58 L 21 91/51 96 10/16/23 21:00 58 L 20 105/68 92 L 10/16/23 20:30 56 L 21 111/65 95 10/16/23 20:00 68 24 122/84 95 10/16/23 19:30 73 20 108/64 95 10/16/23 18:16 66 22 129/78 97 10/16/23 17:22 68 22 163/89 96 10/16/23 15:46 59 L 22 144/78 96 10/16/23 13:30 72 12 120/63 97 10/16/23 13:00 65 12 103/58 96 10/16/23 12:30 67 12 113/64 95 10/16/23 12:02 66 14 129/70 96 10/16/23 11:57 97.9 F 68 16 129/70 98 Results 10/16/23 12:28 10/16/23 12:28 Cardiac Enzymes 10/16/23 10/16/23 10/16/23 Range/Units 12:28 12:28 15:47 AST 27 (17-59) U/L Troponin I <0.012 <0.012 (0.000-0.034) ng/mL 10/16/23 Range/Units 17:30 AST (17-59) U/L Troponin I <0.012 (0.000-0.034) ng/mL Coagulation 10/16/23 Range/Units 12:28 PT 10.9 (10.0-12.5) sec APTT 25.7 (22.0-30.0) sec CBC 10/16/23 Range/Units 12:28 WBC 7.6 (3.8-10.6) k/uL RBC 4.89 (4.30-5.90) m/uL Hgb 13.9 (13.0-17.5) gm/dL Hct 44.7 (39.0-53.0) % Plt Count 185 (150-450) k/uL Comprehensive Metabolic Panel 10/16/23 Range/Units 12:28 Sodium 139 (137-145) mmol/L Potassium 4.9 (3.5-5.1) mmol/L Chloride 109 H (98-107) mmol/L Carbon Dioxide 22 (22-30) mmol/L BUN 28 H (9-20) mg/dL Creatinine 1.07 (0.66-1.25) mg/dL Glucose 92 (74-99) mg/dL Calcium 9.0 (8.4-10.2) mg/dL AST 27 (17-59) U/L ALT 19 (4-49) U/L Alkaline Phosphatase 93 (38-126) U/L Total Protein 7.2 (6.3-8.2) g/dL Albumin 4.3 (3.5-5.0) g/dL Current Medications Generic Name Dose Route Start Last Admin Trade Name Freq PRN Reason Stop Dose Admin Aspirin 325 mg 10/17/23 09:00 Aspirin 325 Mg Tab PO DAILY [facility] Nitroglycerin 0.4 mg 10/16/23 15:04 Nitroglycerin Sl Tabs 0.4 Mg Tab SUBLINGUAL Q5M PRN Chest Pain Nitroglycerin 1 inch 10/16/23 15:04 10/17/23 06:53 Nitroglycerin Oint 1 Inch/Gm Packet TOPICAL 1 inch Q6HR RADHA Administration 10/16/23 12:28 10/16/23 12:28
[2023-10-17 11:54] LABS: Chol/HDL Ratio 2.99 Ratio; LDL Cholesterol,Calculated 44.6 mg/dL (0.0-131.0)
[2023-10-17] MEDS ORDERED: TICAGRELOR 90 MG TAB PO SCH (12:00)
[2023-10-17] MEDS ORDERED: carvediloL 3.125 MG TAB PO SCH (17:00)
[2023-10-18] MEDS ORDERED: LEVOTHYROXINE 100 MCG TAB PO SCH (07:00)
[2023-10-18] MEDS ORDERED: DAPAGLIFLOZIN PROPANEDIOL 10 MG TABLET PO SCH (08:00)
[2023-10-18] MEDS ORDERED: ASPIRIN 81 MG PO SCH (08:00)
== END 2023-10-17 12:18 | disposition left against medical advice (07) ==
LOC: EC 11:57 → SUPCPDRO 11:57 → 6NMEDSUR 15:04
PROVIDERS: ADMIT Family Medicine; ATTEND Family Medicine
DX: I25.5 Ischemic cardiomyopathy (principal); J44.9 Chronic obstructive pulmonary disease, unspecified; I25.10 Atherosclerotic heart disease of native coronary artery without angina pectoris; I11.0 Hypertensive heart disease with heart failure; I50.9 Heart failure, unspecified; F03.90 Unspecified dementia, unspecified severity, without behavioral disturbance, psychotic disturbance, mood disturbance, and anxiety; E78.5 Hyperlipidemia, unspecified; E03.9 Hypothyroidism, unspecified; G62.9 Polyneuropathy, unspecified; F25.0 Schizoaffective disorder, bipolar type; I25.2 Old myocardial infarction; F41.9 Anxiety disorder, unspecified; F17.200 Nicotine dependence, unspecified, uncomplicated; I34.0 Nonrheumatic mitral (valve) insufficiency; G40.909 Epilepsy, unspecified, not intractable, without status epilepticus; Z91.199 Patient's noncompliance with other medical treatment and regimen due to unspecified reason; Z95.5 Presence of coronary angioplasty implant and graft; Z95.810 Presence of automatic (implantable) cardiac defibrillator; Z79.82 Long term (current) use of aspirin; Z79.899 Other long term (current) drug therapy; Z79.890 Hormone replacement therapy; Z79.51 Long term (current) use of inhaled steroids; Z79.84 Long term (current) use of oral hypoglycemic drugs; Z79.02 Long term (current) use of antithrombotics/antiplatelets; Z88.5 Allergy status to narcotic agent; Z88.0 Allergy status to penicillin; Z53.29 Procedure and treatment not carried out because of patient's decision for other reasons
CPT/HCPCS: 99285; 36415; 93005; 85379; 83880; 80061; 80053; 83605; 83735; 84484; 85025; 85610; 85730; 71046; 71275; G0378 ×2; Q9967

== ENCOUNTER 2023-11-16 19:58 | Emergency (ER) | payer MEDICARE, OTHER ==
--- NOTE | 2023-11-16 20:22 | ED ---
Dizziness HPI - General Chief Complaint: Dizziness Stated Complaint: Weakness Time Seen by Provider: 11/16/23 20:02 Source: patient, EMS Mode of arrival: EMS Limitations: no limitations - History of Present Illness Initial Comments: 73-year-old male presenting to the ED with a chief complaint of lightheadedness. Patient states that he was at rest when he started to experience lightheadedness, headache, and some nausea. Describes this as feeling like he is going to pass out. Reports has history of headaches as well and headache today feels consistent with history of the past. Patient states that he has history of chronic attacks and notes that symptoms today feel similar to history of prior. Patient did note some chest pain however reports that this is currently relieved. Reports that this is a chronic issue and no chest pains today that were any worse than usual. No shortness of breath. No fever or chills. Denies abdominal pain. Denies changes in bowel or bladder habits. No other complaints at this time. - Related Data Home Medications Medication Instructions Recorded Confirmed Cyanocobalamin (Vitamin B-12) 1,000 mcg PO DAILY@0800 08/23/22 10/16/23 [Vitamin B-12] Melatonin 6 mg PO HS@199908/23/22 10/16/23 Sennosides/Docusate Sodium [Senna 2 tab PO HS@199908/23/22 10/16/23 Plus 8.6-50 mg Tablet] Sucralfate [Carafate] 1 gm PO BID@0800,199908/23/22 10/16/23 Famotidine [Pepcid] 20 mg PO BID@0700,1700 08/31/22 10/16/23 Acetaminophen [Tylenol 8 Hour] 650 mg PO TID@0800,1400,199909/17/23 10/16/23 Aspirin EC [Ecotrin Low Dose] 81 mg PO DAILY@0800 09/17/23 10/16/23 Atorvastatin Calcium [Lipitor] 40 mg PO HS@199909/17/23 10/16/23 Escitalopram [Lexapro] 20 mg PO DAILY@0800 09/17/23 10/16/23 Folic Acid 0.4 mg PO DAILY@0800 09/17/23 10/16/23 HYDROcodone/APAP 5-325MG [[place] 1 tab PO Q6HR PRN 09/17/23 10/16/23 5-325] Levothyroxine Sodium [Synthroid] 100 mcg PO DAILY@0700 09/17/23 10/16/23 Mirtazapine 30 mg PO HS@199909/17/23 10/16/23 carvediloL [Coreg] 3.125 mg PO BID@0800,1700 09/17/23 10/16/23 Budesonide-Formot 160-4.5 Mcg 2 puff INHALATION RT-BID@08,199910/16/23 10/16/23 [Symbicort 160-4.5 Mcg Inhaler] Dapagliflozin Propanediol [Farxiga] 10 mg PO DAILY@0800 10/16/23 10/16/23 Ipratropium-Albuterol Nebulize 3 ml INHALATION RT-QID@07,11,16,20 10/16/23 10/16/23 [Duoneb 0.5 mg-3 mg/3 ml Soln] Losartan [Cozaar] 25 mg PO DAILY@0810/16/23 10/16/23 Ticagrelor [Brilinta] 90 mg PO BID@0800,199910/16/23 10/16/23 oxyCODONE-APAP 5-325MG [Percocet 1 tab PO Q4H PRN 10/16/23 10/16/23 5-325 mg] Previous Rx's Medication Instructions Recorded Nitroglycerin Sl Tabs [Nitrostat] 0.4 mg SUBLINGUAL Q5M PRN 90 Days 09/21/23 #100 tab Allergies Allergy/AdvReac Type Severity Reaction Status Date / Time morphine Allergy Anaphylaxis Verified 10/16/23 16:00 Penicillins Allergy Swelling Verified 10/16/23 16:00 on entire body Influenza Virus Vaccines AdvReac Unknown Verified 10/16/23 16:00 pneumococcal vaccine AdvReac Unknown Verified 10/16/23 16:00 Review of Systems ROS Statement: Those systems with pertinent positive or pertinent negative responses have been documented in the HPI. ROS Other: All systems not noted in ROS Statement are negative. Past Medical History Past Medical History: Coronary Artery Disease (CAD), Heart Failure, COPD, Dementia, Hyperlipidemia, Hypertension, Myocardial Infarction ([place]), Seizure Disorder, Syncope, Thyroid Disorder Additional Past Medical History / Comment(s): Ischemic cardiomyopathy, EF 20- 25%, last seizure about 2 yrs ago, hypothyroid.neuropathy "WHEN HE WORKED HE HAD A CRUSHING INJURY -COLLAPSED LUNGS C/T AND HAS CHRONIC BACK PAIN"" pt states he is schizophrenic/bipolar. TRIPLE A REPAIR AUG 2022 History of Any Multi-Drug Resistant Organisms: None Reported Past Surgical History: AICD, Back Surgery, Coronary Bypass/CABG, Heart Catheterization, Heart Catheterization With Stent Additional Past Surgical History / Comment(s): 1995 CABG 4 vessel in [place], has had 2"HEART CATHS/had 2 STENTS after cabg sx.pt stated they were done in [facility]. "sx on tailbone, cortisone injections, devin inguinal hernia repair Past Anesthesia/Blood Transfusion Reactions: No Reported Reaction Date of Last Stent Placement:: 1995 Type of Cardiac Device: AICD Device Placement Date:: 1995 in [facility] Past Psychological History: Anxiety, Depression, Schizoaffective Disorder, Schizophrenia Smoking Status: Current every day smoker Past Alcohol Use History: None Reported Past Drug Use History: None Reported - Past Family History Mother Family Medical History: Respiratory Disorder Additional Family Medical History / Comment(s): Mother had TB Father Additional Family Medical History / Comment(s): Father was an alcoholic, was killed in a motor vehicle accident General Exam Limitations: no limitations General appearance: alert, in no apparent distress Neck exam: Present: normal inspection Respiratory exam: Present: normal lung sounds bilaterally Cardiovascular Exam: Present: regular rate GI/Abdominal exam: Present: soft, normal bowel sounds. Absent: distended, tenderness, guarding, rebound, rigid Extremities exam: Present: other (Strength and sensation equal intact bilateral upper lower extremities.) Back exam: Present: normal inspection Neurological exam: Present: alert, oriented X3, CN II-XII intact (Intact eyimhk-le-ztah, [id number], rapid alternating hand movements.) Skin exam: Present: warm, dry Course Vital Signs 11/16/23 11/16/23 11/16/23 20:08 21:10 22:40 Temperature 97.6 F 97.6 F Pulse Rate 67 68 60 Respiratory 16 18 18 Rate Blood Pressure 125/82 145/72 140/77 O2 Sat by Pulse 96 96 94 L Oximetry 11/17/23 00:09 Temperature Pulse Rate 71 Respiratory 20 Rate Blood Pressure 125/61 O2 Sat by Pulse 95 Oximetry Medical Decision Making - Medical Decision Making Was pt. sent in by a medical professional or institution (PILO Cruz, YARD ENGINEER, urgent care, hospital, or senior living...) When possible be specific @ -No Did you speak to anyone other than the patient for history (EMS, parent, family, police, friend...)? What history was obtained from this source @ -No Did you review nursing and triage notes (agree or disagree)? Why? @ -I reviewed and agree with nursing and triage notes Were old charts reviewed (outside hosp., previous admission, EMS record, old EKG, old radiological studies, urgent care reports/EKG's, senior living records)? Report findings @ -No old charts were reviewed Differential Diagnosis (chest pain, altered mental status, abdominal pain women, abdominal pain men, vaginal bleeding, weakness, fever, dyspnea, syncope, headache, dizziness, GI bleed, back pain, seizure, CVA, palpatations, mental health, musculoskeletal)? @ -Differential Dizziness: Benign paroxysmal positional Vertigo, Menieres disease, otitis media, acoustic neuroma, vertebrobasilar insufficiency, cerebellar stroke, encephalitis, hypovolemic, arrhythmia, coronary artery syndrome, anemia, this is not meant to be an all-inclusive list EKG interpreted by me (3pts min.). @ -EKG interpreted me which shows a sinus rhythm at [address]- T wave findings. IN 121, QRS 118, QT/QTc 431/436. Appears similar to prior. X-rays interpreted by me (1pt min.). @ -None done CT interpreted by me (1pt min.). @ -None done U/S interpreted by me (1pt. min.). @ -None done What testing was considered but not performed or refused? (CT, X-rays, U/S, labs)? Why? @ -None What meds were considered but not given or refused? Why? @ -None Did you discuss the management of the patient with other professionals (professionals i.e. PILO Cruz, YARD ENGINEER, lab, RT, psych nurse, social media marketing analyst, grades 7 8 tutor, teacher, postal delivery officer, upper caser)? Give summary @ -No Was smoking cessation discussed for >3mins.? @ -No Was critical care preformed (if so, how long)? @ -No Were there social determinants of health that impacted care today? How? (Homelessness, low income, unemployed, alcoholism, drug addiction, transportation, low edu. Level, literacy, decrease access to med. care, residential, r ehab)? @ -No Was there de-escalation of care discussed even if they declined (Discuss DNR or withdrawal of care, Hospice)? DNR status @ -No What co-morbidities impacted this encounter? (DM, HTN, Smoking, COPD, CAD, Cancer, CVA, ARF, Chemo, Hep., AIDS, mental health diagnosis, sleep apnea, morbid obesity)? @ -None Was patient admitted / discharged? Hospital course, mention meds given and route, prescriptions, significant lab abnormalities, going to OR and other pertinent info. @ -Discharge 73-year-old male presents to the ED with complaints of lightheadedness. Patient reports he was at rest when he started to experience some lightheadedness, nausea, and headache. Initially reported headache 10 out of 10. States that symptoms are consistent with history of panic attacks. Laboratory studies reviewed. Labs including CBC, CMP, UA, serology panel unremarkable. Undetecta ble. Patient provided analgesia, anxiolytics, and IV fluids. Upon reevaluation, patient states symptoms are completely resolved. Discharged home in stable condition. Discussed return precautions with patient who verbalized agreement. Undiagnosed new problem with uncertain prognosis? @ -No Drug Therapy requiring intensive monitoring for toxicity (Heparin, Nitro, Insulin, Cardizem)? @ -No Were any procedures done? @ -No Diagnosis/symptom? @ -Lightheadedness, headache Acute, or Chronic, or Acute on Chronic? @ -Acute Uncomplicated (without systemic symptoms) or Complicated (systemic symptoms)? @ -Uncomplicated Side effects of treatment? @ -No Exacerbation, Progression, or Severe Exacerbation? @ -No Poses a threat to life or bodily function? How? (Chest pain, [place], [place], pneumonia, PE, COPD, DKA, ARF, appy, cholecystitis, CVA, Diverticulitis, Homicidal, Suicidal, threat to staff... and all critical care pts) @ -No - Lab Data Result diagrams: 11/16/23 20:30 11/16/23 20:30 Lab Results 11/16/23 11/16/23 11/16/23 Range/Units 20:30 20:30 20:30 WBC 7.4 (3.8-10.6) k/uL RBC 4.63 (4.30-5.90) m/uL Hgb 13.5 (13.0-17.5) gm/dL Hct 42.2 (39.0-53.0) % MCV 91.3 (80.0-100.0) fL MCH 29.3 (25.0-35.0) pg MCHC 32.1 (31.0-37.0) g/dL RDW 15.8 H (11.5-15.5) % Plt Count 141 L (150-450) k/uL MPV 8.3 Neutrophils % 52 % Lymphocytes % 32 % Monocytes % 9 % Eosinophils % 3 % Basophils % 1 % Neutrophils # 3.8 (1.3-7.7) k/uL Lymphocytes # 2.4 (1.0-4.8) k/uL Monocytes # 0.7 (0-1.0) k/uL Eosinophils # 0.3 (0-0.7) k/uL Basophils # 0.0 (0-0.2) k/uL Hypochromasia Slight PT 11.2 (10.0-12.5) sec INR 1.0 (<1.2) APTT 25.9 (22.0-30.0) sec Sodium 137 (137-145) mmol/L Potassium 4.6 (3.5-5.1) mmol/L Chloride 107 (98-107) mmol/L Carbon Dioxide 21 L (22-30) mmol/L Anion Gap 9 mmol/L BUN 31 H (9-20) mg/dL Creatinine 1.61 H (0.66-1.25) mg/dL Est GFR (CKD-EPI)AfAm 49 (>60 ml/min/1.73 sqM) Est GFR (CKD-EPI)NonAf 42 (>60 ml/min/1.73 sqM) Glucose 112 H (74-99) mg/dL Calcium 8.7 (8.4-10.2) mg/dL Magnesium 1.8 (1.6-2.3) mg/dL Total Bilirubin 0.3 (0.2-1.3) mg/dL AST 27 (17-59) U/L ALT 20 (4-49) U/L Alkaline Phosphatase 81 (38-126) U/L Troponin I (0.000-0.034) ng/mL Total Protein 6.5 (6.3-8.2) g/dL Albumin 3.8 (3.5-5.0) g/dL Urine Color Urine Appearance (Clear) Urine pH (5.0-8.0) Ur Specific [place] (1.001-1.035) Urine Protein (Negative) Urine Glucose (UA) (Negative) Urine Ketones (Negative) Urine Blood (Negative) Urine Nitrite (Negative) Urine Bilirubin (Negative) Urine Urobilinogen (<2.0) mg/dL Ur Leukocyte Esterase (Negative) Influenza Type A (PCR) (Not Detectd) Influenza Type B (PCR) (Not Detectd) RSV (PCR) (Not Detectd) SARS-CoV-2 (PCR) (Not Detectd) 11/16/23 11/16/23 11/16/23 Range/Units 20:30 20:31 21:00 WBC (3.8-10.6) k/uL RBC (4.30-5.90) m/uL Hgb (13.0-17.5) gm/dL Hct (39.0-53.0) % MCV (80.0-100.0) fL MCH (25.0-35.0) pg MCHC (31.0-37.0) g/dL RDW (11.5-15.5) % Plt Count (150-450) k/uL MPV Neutrophils % % Lymphocytes % % Monocytes % % Eosinophils % % Basophils % % Neutrophils # (1.3-7.7) k/uL Lymphocytes # (1.0-4.8) k/uL Monocytes # (0-1.0) k/uL Eosinophils # (0-0.7) k/uL Basophils # (0-0.2) k/uL Hypochromasia PT (10.0-12.5) sec INR (<1.2) APTT (22.0-30.0) sec Sodium (137-145) mmol/L Potassium (3.5-5.1) mmol/L Chloride (98-107) mmol/L Carbon Dioxide (22-30) mmol/L Anion Gap mmol/L BUN (9-20) mg/dL Creatinine (0.66-1.25) mg/dL Est GFR (CKD-EPI)AfAm (>60 ml/min/1.73 sqM) Est GFR (CKD-EPI)NonAf (>60 ml/min/1.73 sqM) Glucose (74-99) mg/dL Calcium (8.4-10.2) mg/dL Magnesium (1.6-2.3) mg/dL Total Bilirubin (0.2-1.3) mg/dL AST (17-59) U/L ALT (4-49) U/L Alkaline Phosphatase (38-126) U/L Troponin I <0.012 (0.000-0.034) ng/mL Total Protein (6.3-8.2) g/dL Albumin (3.5-5.0) g/dL Urine Color Colorless Urine Appearance Clear (Clear) Urine pH 5.5 (5.0-8.0) Ur Specific [place] 1.020 (1.001-1.035) Urine Protein Negative (Negative) Urine Glucose (UA) 4+ H (Negative) Urine Ketones Negative (Negative) Urine Blood Negative (Negative) Urine Nitrite Negative (Negative) Urine Bilirubin Negative (Negative) Urine Urobilinogen <2.0 (<2.0) mg/dL Ur Leukocyte Esterase Negative (Negative) Influenza Type A (PCR) Not Detected (Not Detectd) Influenza Type B (PCR) Not Detected (Not Detectd) RSV (PCR) Not Detected (Not Detectd) SARS-CoV-2 (PCR) Not Detected (Not Detectd) Disposition Clinical Impression: Lightheadedness, Headache Disposition: HOME SELF-CARE Condition: Good Instructions (If sedation given, give patient instructions): Dizziness (ED) Additional Instructions: Please return to the Emergency Department if symptoms worsen or any other concerns. Please follow-up with your PCP. Is patient prescribed a controlled substance at d/c from ED?: No Referrals: Raffaele Verdin MD [Primary Care Provider] - 1-2 days Time of Disposition: 00:18
[2023-11-16 20:41] VITALS: TEMP 97.6
[2023-11-16 20:49] LABS: Basophils % (A) 1 %; Eosinophils # (A) 0.3 k/uL (0-0.7); Eosinophils % (A) 3 %; HCT 42.2 % (39.0-53.0); HGB 13.5 gm/dL (13.0-17.5); Hypochromasia Slight; Lymphocytes # (A) 2.4 k/uL (1.0-4.8); Lymphocytes % (A) 32 %; MCH 29.3 pg (25.0-35.0); MCHC 32.1 g/dL (31.0-37.0); MCV 91.3 fL (80.0-100.0); Mean Platelet Volume 8.3; Monocytes # (A) 0.7 k/uL (0-1.0); Monocytes % (A) 9 %; Neutrophils # (A) 3.8 k/uL (1.3-7.7); Neutrophils % (A) 52 %; Platelet Count 141 k/uL (150-450); RBC 4.63 m/uL (4.30-5.90); RDW 15.8 % (11.5-15.5); WBC 7.4 k/uL (3.8-10.6)
[2023-11-16] MEDS: ACETAMINOPHEN TAB 500 MG TAB PO STA (20:58)
[2023-11-16 20:59] LABS: ALT 20 U/L (4-49); AST 27 U/L (17-59); African American GFR (CKD) 49 (>60 ml/min/1.73 sqM); Albumin 3.8 g/dL (3.5-5.0); Alkaline Phosphatase 81 U/L (38-126); Anion Gap 9 mmol/L; Blood Urea Nitrogen 31 mg/dL (9-20); Calcium 8.7 mg/dL (8.4-10.2); Carbon Dioxide 21 mmol/L (22-30); Chloride 107 mmol/L (98-107); Glucose 112 mg/dL (74-99); Magnesium 1.8 mg/dL (1.6-2.3); Non-African American GFR(CKD) 42 (>60 ml/min/1.73 sqM); Potassium 4.6 mmol/L (3.5-5.1); Sodium 137 mmol/L (137-145); Total Bilirubin 0.3 mg/dL (0.2-1.3); Total Protein 6.5 g/dL (6.3-8.2)
[2023-11-16] MEDS: SODIUM CHLORIDE 0.9% 1,000 ML IV STA (21:01)
[2023-11-16] MEDS: LORazepam 2 MG/ML INJ IV STA (21:03)
[2023-11-16 21:05] LABS: Partial Thromboplastin Time 25.9 sec (22.0-30.0); Prothrombin Time 11.2 sec (10.0-12.5)
[2023-11-16] MEDS: ONDANSETRON 4 MG/2 ML VIAL IVP STA (21:05)
[2023-11-16 21:29] LABS: Appearance,Urine Clear (Clear); Bilirubin,Urine Negative (Negative); Blood,Urine Negative (Negative); Color,Urine Colorless; Glucose,Urine (UA) 4+ (Negative); Ketones,Urine Negative (Negative); Leukocyte Esterase,Urine Negative (Negative); Nitrite,Urine Negative (Negative); PH, Urine 5.5 (5.0-8.0); Protein,Urine Negative (Negative); Urobilinogen,Urine <2.0 mg/dL (<2.0)
--- NOTE | 2023-11-16 23:38 | XR ---
EXAMINATION TYPE: XR chest 2V DATE OF EXAM: 11/16/2023 9:27 PM CLINICAL INDICATION:Male, 73 years old with history of Chest Pain; [facility] COMPARISON: CT and x-ray 09/17/2023 and before TECHNIQUE: XR chest 2V. Frontal and lateral views of the chest.. FINDINGS: Patient is rotated right limiting assessment. Lines/Tubes/Devices: No indwelling lines are seen. Stable appearance of right chest pacer/AICD, with leads apparently term inating over the right atrium and right ventricle, unchanged compared to priors back to at least 2021 . Multiple sternotomy wires and mediastinal clips, maybe from prior CABG. Multiple sternotomy wires a gain appear slightly bent or broken without significant displacement seen. Heart/mediastinum: Heart is enlarged, stable. Mild tortuous aorta. Pulmonary vascularity: Not significantly increased. Lungs/Pleura: Mildly coarsened appearance to the interstitium is similar to priors, likely chronic ch anges. No acute infiltrate, pleural effusion, or pneumothorax. Musculoskeletal: No acute osseous abnormality demonstrated in the limits of the exam. Mild/moderate d egenerative changes of the spine and shoulders. Other findings: None. IMPRESSION: 1. Cardiomegaly and postoperative changes. 2. Chronic lung changes without evidence of acute superimposed pulmonary disease/process.
[2023-11-17 00:32] VITALS: BP 125/61; PULSE 71; RESP 20
== END 2023-11-17 00:50 | disposition home or self-care (01) ==
LOC: EC 19:58
DX: R42 Dizziness and giddiness (principal); R51.9 Headache, unspecified; F17.200 Nicotine dependence, unspecified, uncomplicated; Z88.0 Allergy status to penicillin; Z88.5 Allergy status to narcotic agent; Z88.7 Allergy status to serum and vaccine
CPT/HCPCS: 36415; 93005; 80053; 83735; 84484; 85025; 85610; 85730; 81003; 87636; 71046; 99285; 96374; 96375; 96361; J2060; J2405

== ENCOUNTER 2024-03-02 22:56 | Inpatient (IN) | payer MEDICARE, OTHER ==
[2024-03-02 23:07] LABS: Glucose,Whole Blood 118 mg/dL (70-110)
[2024-03-02 23:42] LABS: Anisocytosis Slight; Basophils % (A) 0 %; Eosinophils # (A) 0.1 k/uL (0-0.7); Eosinophils % (A) 1 %; HCT 43.7 % (39.0-53.0); HGB 13.6 gm/dL (13.0-17.5); Hypochromasia Moderate; Lymphocytes % (A) 25 %; MCH 28.3 pg (25.0-35.0); MCV 91.2 fL (80.0-100.0); Mean Platelet Volume 7.5; Monocytes # (A) 0.5 k/uL (0-1.0); Monocytes % (A) 6 %; Neutrophils # (A) 5.2 k/uL (1.3-7.7); Neutrophils % (A) 65 %; Platelet Count 239 k/uL (150-450); RBC 4.79 m/uL (4.30-5.90); RDW 16.2 % (11.5-15.5); WBC 8.1 k/uL (3.8-10.6)
[2024-03-03] MEDS: SODIUM CHLORIDE 0.9% 500 ML 500 ML IV STA ×2 (00:21→07:50)
[2024-03-03] MEDS: ONDANSETRON 4 MG/2 ML VIAL IVP STA (00:22)
[2024-03-03 01:21] LABS: ALT 15 U/L (4-49); AST 22 U/L (17-59); African American GFR (CKD) 78 (>60 ml/min/1.73 sqM); Albumin 3.8 g/dL (3.5-5.0); Alkaline Phosphatase 65 U/L (38-126); Amylase 94 U/L (30-110); Anion Gap 8 mmol/L; Blood Urea Nitrogen 24 mg/dL (9-20); Calcium 9.1 mg/dL (8.4-10.2); Carbon Dioxide 24 mmol/L (22-30); Chloride 106 mmol/L (98-107); Glucose 103 mg/dL (74-99); Lipase 171 U/L (23-300); Non-African American GFR(CKD) 68 (>60 ml/min/1.73 sqM); Potassium 4.5 mmol/L (3.5-5.1); Sodium 138 mmol/L (137-145); Total Bilirubin 0.4 mg/dL (0.2-1.3); Total Protein 6.2 g/dL (6.3-8.2)
--- NOTE | 2024-03-03 02:14 | CT ---
EXAM: CT Abdomen and Pelvis Without Intravenous Contrast CLINICAL HISTORY: ITS.REASON CT Reason: RUQ abdominal pain TECHNIQUE: Axial computed tomography images of the abdomen and pelvis without intravenous contrast. CTDI is 8.2 mGy and DLP is 523.5 mGy-cm. This CT exam was performed using one or more of the following dose reduction techniques: automated exposure control, adjustment of the mA and/or kV according to patient size, and/or use of iterative reconstruction technique. COMPARISON: No relevant prior studies available. FINDINGS: Lung bases: Unremarkable. No mass. No consolidation. Heart: Cardiomegaly. ABDOMEN: Liver: Unremarkable. Gallbladder and bile ducts: Unremarkable. No calcified stones. No ductal dilation. Pancreas: Unremarkable. No ductal dilation. Spleen: Calcified splenic granulomas. Adrenals: Unremarkable. No mass. Kidneys and ureters: LEFT lower pole renal cyst measures 6.6 cm. No obstructing stones. No hydronephrosis. Stomach and bowel: RIGHT inguinal hernia contains multiple loops of small bowel, which are nonobstructed. Diverticulosis, without acute diverticulitis. No small bowel obstruction. No free intraperitoneal air. PELVIS: Appendix: No findings to suggest acute appendicitis. Bladder: Unremarkable. No stones. Reproductive: Unremarkable as visualized. ABDOMEN and PELVIS: Intraperitoneal space: Unremarkable. No free air. No significant fluid collection. Bones/joints: Sternotomy wires. Degenerative changes of the spine. No acute fracture. No dislocation. Soft tissues: See above. 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 Evaluation limited due to lack of contrast. Atherosclerotic changes of the aorta. Lymph nodes: Unremarkable. No enlarged lymph nodes. Tubes, lines and devices: Pacemaker leads. IMPRESSION: 1. 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 Evaluation limited due to lack of contrast. 2. RIGHT inguinal hernia contains multiple loops of small bowel, which are nonobstructed. 3. Diverticulosis, without acute diverticulitis. No small bowel obstruction. No free intraperitoneal air.
[2024-03-03 02:56] LABS: Appearance,Urine Clear (Clear); Bilirubin,Urine Negative (Negative); Blood,Urine Negative (Negative); Color,Urine Light Yellow; Glucose,Urine (UA) 4+ (Negative); Ketones,Urine Negative (Negative); Leukocyte Esterase,Urine Negative (Negative); Nitrite,Urine Negative (Negative); PH, Urine 5.5 (5.0-8.0); Protein,Urine Negative (Negative); Specific Gravity,Urine 1.023 (1.001-1.035); Urobilinogen,Urine <2.0 mg/dL (<2.0)
[2024-03-03] MEDS: SODIUM CHLORIDE 0.9% 1,000 ML IV ONE (04:01)
--- NOTE | 2024-03-03 07:15 | ED ---
Nausea/Vomiting/Diarrhea HPI - General Chief complaint: Nausea/Vomiting/Diarrhea Stated complaint: N/V Time Seen by Provider: 03/02/24 23:26 Source: patient, EMS Mode of arrival: EMS - History of Present Illness Initial comments: Patient is a 73-year-old man coming from his long-term care facility to have evaluation for vomiting and abdominal pain. The patient reports that he did have some vomiting 2 days ago, then he had brief period of improvement and then over the course of yesterday into today he had increasing vomiting and abdominal pain. He indicates diffuse abdominal pain more in the upper portion. He states he was not able to take much oral intake. He did not notice fever. He did not notice change in bowel movements. No change in urination or groin/testicular pain MD complaint: nausea, vomiting, abdominal pain Onset/Timin -: days(s) Description of Vomiting: food contents Associated Abdominal Pain: Yes Location: diffuse Radiation: none Severity: severe Quality: other (Not Able to characterize) Consistency: constant Improves with: none Worsens with: none Associated Symptoms: nausea/vomiting - Related Data Home Medications Medication Instructions Recorded Confirmed Cyanocobalamin (Vitamin B-12) 1,000 mcg PO DAILY@0800 08/23/22 03/03/24 [Vitamin B-12] Melatonin 6 mg PO HS@199908/23/22 03/03/24 Sennosides/Docusate Sodium [Senna 2 tab PO HS@199908/23/22 03/03/24 Plus 8.6-50 mg Tablet] Sucralfate [Carafate] 1 gm PO BID@0800,199908/23/22 03/03/24 Famotidine [Pepcid] 20 mg PO BID@0700,1700 08/31/22 03/03/24 Acetaminophen [Tylenol 8 Hour] 650 mg PO TID@0800,1400,199909/17/23 03/03/24 Aspirin EC [Ecotrin Low Dose] 81 mg PO DAILY@0800 09/17/23 03/03/24 Atorvastatin Calcium [Lipitor] 40 mg PO HS@199909/17/23 03/03/24 Escitalopram [Lexapro] 20 mg PO DAILY@0800 09/17/23 03/03/24 Folic Acid 0.4 mg PO DAILY@0800 09/17/23 03/03/24 Levothyroxine Sodium [Synthroid] 100 mcg PO DAILY@69909/17/23 03/03/24 Mirtazapine 30 mg PO HS@199909/17/23 03/03/24 carvediloL [Coreg] 3.125 mg PO BID@0800,1700 09/17/23 03/03/24 Budesonide-Formot 160-4.5 Mcg 2 puff INHALATION RT-BID@799,199910/16/23 03/03/24 [Symbicort 160-4.5 Mcg Inhaler] Dapagliflozin Propanediol [Farxiga] 10 mg PO DAILY@79910/16/23 03/03/24 Ipratropium-Albuterol Nebulize 3 ml INHALATION RT-Q4H PRN 10/16/23 03/03/24 [Duoneb 0.5 mg-3 mg/3 ml Soln] Losartan [Cozaar] 25 mg PO DAILY@79910/16/23 03/03/24 Ticagrelor [Brilinta] 90 mg PO BID@08,199910/16/23 03/03/24 oxyCODONE-APAP 5-325MG [Percocet 1 tab PO Q4H PRN 10/16/23 03/03/24 5-325 mg] Budesonide 0.5 mg INHALATION RT-BID@0900,179903/03/24 03/03/24 Previous Rx's Medication Instructions Recorded Nitroglycerin Sl Tabs [Nitrostat] 0.4 mg SUBLINGUAL Q5M PRN 90 Days 09/21/23 #100 tab Allergies Allergy/AdvReac Type Severity Reaction Status Date / Time morphine Allergy Anaphylaxis Verified 03/03/24 13:35 Penicillins Allergy Swelling Verified 03/03/24 13:35 on entire body Influenza Virus Vaccines AdvReac Unknown Verified 03/03/24 13:35 pneumococcal vaccine AdvReac Unknown Verified 03/03/24 13:35 Review of Systems ROS Statement: Those systems with pertinent positive or pertinent negative responses have been documented in the HPI. ROS Other: All systems not noted in ROS Statement are negative. Constitutional: Denies: fever Respiratory: Denies: cough, dyspnea Cardiovascular: Denies: chest pain, edema, syncope Gastrointestinal: Reports: abdominal pain, nausea, vomiting. Denies: diarrhea, hematemesis, melena, hematochezia Genitourinary: Denies: dysuria, frequency, testicular pain Musculoskeletal: Denies: back pain Skin: Denies: rash Neurological: Denies: headache Past Medical History Past Medical History: Coronary Artery Disease (CAD), Heart Failure, COPD, Dementia, Hyperlipidemia, Hypertension, Myocardial Infarction (HI), Seizure Disorder, Syncope, Thyroid Disorder Additional Past Medical History / Comment(s): Ischemic cardiomyopathy, EF 20- 25%, last seizure about 2 yrs ago, hypothyroid.neuropathy "WHEN HE WORKED HE HAD A CRUSHING INJURY -COLLAPSED LUNGS C/T AND HAS CHRONIC BACK PAIN"" pt states he is schizophrenic/bipolar. TRIPLE A REPAIR AUG 2022 History of Any Multi-Drug Resistant Organisms: None Reported Past Surgical History: AICD, Back Surgery, Coronary Bypass/CABG, Heart Catheterization, Heart Catheterization With Stent Additional Past Surgical History / Comment(s): 1995 CABG 4 vessel in [place], has had 2"HEART CATHS/had 2 STENTS after cabg sx.pt stated they were done in [facility]. "sx on tailbone, cortisone injections, devin inguinal hernia repair Past Anesthesia/Blood Transfusion Reactions: No Reported Reaction Date of Last Stent Placement:: 1995 Type of Cardiac Device: AICD Device Placement Date:: 1995 in [facility] Past Psychological History: Anxiety, Depression, Schizoaffective Disorder, Schizophrenia Smoking Status: Current every day smoker Past Alcohol Use History: None Reported Past Drug Use History: None Reported - Past Family History Mother Family Medical History: Respiratory Disorder Additional Family Medical History / Comment(s): Mother had TB Father Additional Family Medical History / Comment(s): Father was an alcoholic, was killed in a motor vehicle accident General Exam General appearance: alert, in no apparent distress Head exam: Present: atraumatic, normocephalic Eye exam: Present: normal appearance. Absent: scleral icterus, conjunctival injection ENT exam: Present: mucous membranes dry Neck exam: Present: normal inspection Respiratory exam: Present: normal lung sounds bilaterally. Absent: respiratory distress, wheezes, rales, rhonchi, stridor, accessory muscle use Cardiovascular Exam: Present: regular rate, normal rhythm, normal heart sounds. Absent: systolic murmur, diastolic murmur, rubs, gallop GI/Abdominal exam: Present: soft, tenderness (There is mild tenderness through out the abdomen. There is no rebound or guarding.), hernia (The patient does have right inguinal hernia which I was able to reduce at the bedside without difficulty.). Absent: distended, guarding, rebound, rigid, mass Extremities exam: Present: normal inspection, normal capillary refill. Absent: pedal edema, calf tenderness Back exam: Present: normal inspection. Absent: CVA tenderness (R), CVA tenderness (L) Neurological exam: Present: alert Skin exam: Present: warm, dry, intact, normal color. Absent: rash Course Vital Signs 03/02/24 03/02/24 03/03/24 22:59 23:30 00:30 Temperature 97.5 F L Pulse Rate 62 55 L 55 L Respiratory 16 15 16 Rate Blood Pressure 124/72 128/70 109/60 O2 Sat by Pulse 98 98 99 Oximetry 03/03/24 03/03/24 03/03/24 03:08 04:30 06:30 Temperature Pulse Rate 68 66 66 Respiratory 15 16 16 Rate Blood Pressure 125/79 132/75 143/89 O2 Sat by Pulse 97 98 95 Oximetry 03/03/24 03/03/24 07:52 08:42 Temperature Pulse Rate 66 70 Respiratory 18 18 Rate Blood Pressure 143/89 134/76 O2 Sat by Pulse 94 L 94 L Oximetry Medical Decision Making - Medical Decision Making Patient is 73-year-old man with now 2 days of vomiting and abdominal pain. The patient did have inguinal hernia which I reduced without difficulty. The patient had tenderness and therefore had CT scan of the abdomen which did show that the hernia had recurred. No evidence of obstruction or free air. On reexamination the hernia was again reduced. The patient did have fluids and medication but was not feeling significantly better. The patient therefore admitted to have continuing fluids and symptomatic treatment as well as surgery evaluation. Was pt. sent in by a medical professional or institution (, PA, AIRCRAFT ENGINE TECHNICIAN, urgent care, hospital, or prison...) When possible be specific @ -[No] Did you speak to anyone other than the patient for history (EMS, parent, family, police, friend...)? What history was obtained from this source @ -[No] Did you review nursing and triage notes (agree or disagree)? Why? @ -[I reviewed and agree with nursing and triage notes] Were old charts reviewed (outside hosp., previous admission, EMS record, old EKG, old radiological studies, urgent care reports/EKG's, prison records)? Report findings @ -[No old charts were reviewed] Differential Diagnosis (chest pain, altered mental status, abdominal pain women, abdominal pain men, vaginal bleeding, weakness, fever, dyspnea, syncope, headache, dizziness, GI bleed, back pain, seizure, CVA, palpatations, mental health, musculoskeletal)? @ -[Differential Abdominal Pain Men: Appendicitis, cholecystitis, diverticulosis, ischemic bowel, pancreatitis, hepatitis, UTI, gastroenteritis, AAA, incarcerated hernia, bowel obstruction, constipation, inflammatory bowel, hepatitis, peptic ulcer disease, splenic infarction, perforated viscus, testicular torsion, this is not meant to be an all-inclusive list EKG interpreted by me (3pts min.). @ -[As above] X-rays interpreted by me (1pt min.). @ -[None done] CT interpreted by me (1pt min.). @ -I interpreted as above U/S interpreted by me (1pt. min.). @ -[None done] What testing was considered but not performed or refused? (CT, X-rays, U/S, labs)? Why? @ -[None] What meds were considered but not given or refused? Why? @ -[None] Did you discuss the management of the patient with other professionals (professionals i.e. , PA, AIRCRAFT ENGINE TECHNICIAN, lab, RT, psych nurse, social media campaign manager, flow nurse, teacher, audit officer, supervisor case loading)? Give summary @ -[Case discussed with admitting physician and with the surgeon on-call who will see and evaluate the patient Was smoking cessation discussed for >3mins.? @ -[No] Was critical care preformed (if so, how long)? @ -[No] Were there social determinants of health that impacted care today? How? (Homelessness, low income, unemployed, alcoholism, drug addiction, transportation, low edu. Level, literacy, decrease access to med. care, penitentiary, rehab)? @ -[No] Was there de-escalation of care discussed even if they declined (Discuss DNR or withdrawal of care, Hospice)? DNR status @ -[No] What co-morbidities impacted this encounter? (DM, HTN, Smoking, COPD, CAD, Cancer, CVA, ARF, Chemo, Hep., AIDS, mental health diagnosis, sleep apnea, morbid obesity)? @ -[History of cardiomyopathy. Was patient admitted / discharged? Hospital course, mention meds given and route, prescriptions, significant lab abnormalities, going to OR and other pertinent info. @ -[Patient is admitted to have further evaluation and treatment for abdominal pain Undiagnosed new problem with uncertain prognosis? @ -[No] Drug Therapy requiring intensive monitoring for toxicity (Heparin, Nitro, Insulin, Cardizem)? @ -[No] Were any procedures done? @ -[No] Diagnosis/symptom? @ -[Acute abdominal pain Right inguinal hernia Acute, or Chronic, or Acute on Chronic? @ -[Acute Uncomplicated (without systemic symptoms) or Complicated (systemic symptoms)? @ -[Uncomplicated Side effects of treatment? @ -[No] Exacerbation, Progression, or Severe Exacerbation? @ -[No] Poses a threat to life or bodily function? How? (Chest pain, USA, HI, pneumonia, PE, COPD, DKA, ARF, appy, cholecystitis, CVA, Diverticulitis, Homicidal, Suicidal, threat to staff... and all critical care pts) @ -[No] - Lab Data Result diagrams: 03/04/24 05:34 03/05/24 00:16 Lab Results 03/02/24 03/02/24 03/02/24 Range/Units 23:05 23:20 23:20 WBC 8.1 (3.8-10.6) k/uL RBC 4.79 (4.30-5.90) m/uL Hgb 13.6 (13.0-17.5) gm/dL Hct 43.7 (39.0-53.0) % MCV 91.2 (80.0-100.0) fL MCH 28.3 (25.0-35.0) pg MCHC 31.0 (31.0-37.0) g/dL RDW 16.2 H (11.5-15.5) % Plt Count 239 (150-450) k/uL MPV 7.5 Neutrophils % 65 % Lymphocytes % 25 % Monocytes % 6 % Eosinophils % 1 % Basophils % 0 % Neutrophils # 5.2 (1.3-7.7) k/uL Lymphocytes # 2.0 (1.0-4.8) k/uL Monocytes # 0.5 (0-1.0) k/uL Eosinophils # 0.1 (0-0.7) k/uL Basophils # 0.0 (0-0.2) k/uL Hypochromasia Moderate Anisocytosis Slight Sodium (137-145) mmol/L Potassium (3.5-5.1) mmol/L Chloride (98-107) mmol/L Carbon Dioxide (22-30) mmol/L Anion Gap mmol/L BUN (9-20) mg/dL Creatinine (0.66-1.25) mg/dL Est GFR (CKD-EPI)AfAm (>60 ml/min/1.73 sqM) Est GFR (CKD-EPI)NonAf (>60 ml/min/1.73 sqM) Glucose (74-99) mg/dL POC Glucose (mg/dL) 118 H (70-110) mg/dL POC Glu Nut Culler ID Flor Briones Lactic Ac Sepsis Rflx Plasma Lactic Acid Rigoberto 2.2 H* (0.7-2.0) mmol/L Calcium (8.4-10.2) mg/dL Total Bilirubin (0.2-1.3) mg/dL AST (17-59) U/L ALT (4-49) U/L Alkaline Phosphatase (38-126) U/L Troponin I (0.000-0.034) ng/mL Total Protein (6.3-8.2) g/dL Albumin (3.5-5.0) g/dL Amylase (30-110) U/L Lipase (23-300) U/L Urine Color Urine Appearance (Clear) Urine pH (5.0-8.0) Ur Specific [place] (1.001-1.035) Urine Protein (Negative) Urine Glucose (UA) (Negative) Urine Ketones (Negative) Urine Blood (Negative) Urine Nitrite (Negative) Urine Bilirubin (Negative) Urine Urobilinogen (<2.0) mg/dL Ur Leukocyte Esterase (Negative) 03/02/24 03/03/24 03/03/24 Range/Units 23:20 00:18 00:26 WBC (3.8-10.6) k/uL RBC (4.30-5.90) m/uL Hgb (13.0-17.5) gm/dL Hct (39.0-53.0) % MCV (80.0-100.0) fL MCH (25.0-35.0) pg MCHC (31.0-37.0) g/dL RDW (11.5-15.5) % Plt Count (150-450) k/uL MPV Neutrophils % % Lymphocytes % % Monocytes % % Eosinophils % % Basophils % % Neutrophils # (1.3-7.7) k/uL Lymphocytes # (1.0-4.8) k/uL Monocytes # (0-1.0) k/uL Eosinophils # (0-0.7) k/uL Basophils # (0-0.2) k/uL Hypochromasia Anisocytosis Sodium 138 (137-145) mmol/L Potassium 4.5 (3.5-5.1) mmol/L Chloride 106 (98-107) mmol/L Carbon Dioxide 24 (22-30) mmol/L Anion Gap 8 mmol/L BUN 24 H (9-20) mg/dL Creatinine 1.09 (0.66-1.25) mg/dL Est GFR (CKD-EPI)AfAm 78 (>60 ml/min/1.73 sqM) Est GFR (CKD-EPI)NonAf 68 (>60 ml/min/1.73 sqM) Glucose 103 H (74-99) mg/dL POC Glucose (mg/dL) (70-110) mg/dL POC Glu Nut Culler ID Lactic Ac Sepsis Rflx Y Plasma Lactic Acid Rigoberto (0.7-2.0) mmol/L Calcium 9.1 (8.4-10.2) mg/dL Total Bilirubin 0.4 (0.2-1.3) mg/dL AST 22 (17-59) U/L ALT 15 (4-49) U/L Alkaline Phosphatase 65 (38-126) U/L Troponin I <0.012 (0.000-0.034) ng/mL Total Protein 6.2 L (6.3-8.2) g/dL Albumin 3.8 (3.5-5.0) g/dL Amylase 94 (30-110) U/L Lipase 171 (23-300) U/L Urine Color Urine Appearance (Clear) Urine pH (5.0-8.0) Ur Specific [place] (1.001-1.035) Urine Protein (Negative) Urine Glucose (UA) (Negative) Urine Ketones (Negative) Urine Blood (Negative) Urine Nitrite (Negative) Urine Bilirubin (Negative) Urine Urobilinogen (<2.0) mg/dL Ur Leukocyte Esterase (Negative) 03/03/24 03/03/24 Range/Units 02:06 03:53 WBC (3.8-10.6) k/uL RBC (4.30-5.90) m/uL Hgb (13.0-17.5) gm/dL Hct (39.0-53.0) % MCV (80.0-100.0) fL MCH (25.0-35.0) pg MCHC (31.0-37.0) g/dL RDW (11.5-15.5) % Plt Count (150-450) k/uL MPV Neutrophils % % Lymphocytes % % Monocytes % % Eosinophils % % Basophils % % Neutrophils # (1.3-7.7) k/uL Lymphocytes # (1.0-4.8) k/uL Monocytes # (0-1.0) k/uL Eosinophils # (0-0.7) k/uL Basophils # (0-0.2) k/uL Hypochromasia Anisocytosis Sodium (137-145) mmol/L Potassium (3.5-5.1) mmol/L Chloride (98-107) mmol/L Carbon Dioxide (22-30) mmol/L Anion Gap mmol/L BUN (9-20) mg/dL Creatinine (0.66-1.25) mg/dL Est GFR (CKD-EPI)AfAm (>60 ml/min/1.73 sqM) Est GFR (CKD-EPI)NonAf (>60 ml/min/1.73 sqM) Glucose (74-99) mg/dL POC Glucose (mg/dL) (70-110) mg/dL POC Glu Nut Culler ID Lactic Ac Sepsis Rflx Plasma Lactic Acid Rigoberto 1.3 (0.7-2.0) mmol/L Calcium (8.4-10.2) mg/dL Total Bilirubin (0.2-1.3) mg/dL AST (17-59) U/L ALT (4-49) U/L Alkaline Phosphatase (38-126) U/L Troponin I (0.000-0.034) ng/mL Total Protein (6.3-8.2) g/dL Albumin (3.5-5.0) g/dL Amylase (30-110) U/L Lipase (23-300) U/L Urine Color Light Yellow Urine Appearance Clear (Clear) Urine pH 5.5 (5.0-8.0) Ur Specific [place] 1.023 (1.001-1.035) Urine Protein Negative (Negative) Urine Glucose (UA) 4+ H (Negative) Urine Ketones Negative (Negative) Urine Blood Negative (Negative) Urine Nitrite Negative (Negative) Urine Bilirubin Negative (Negative) Urine Urobilinogen <2.0 (<2.0) mg/dL Ur Leukocyte Esterase Negative (Negative) Disposition Clinical Impression: Abdominal pain, Inguinal hernia Disposition: ADMITTED IP TO THIS HOSP Condition: Fair Is patient prescribed a controlled substance at d/c from ED?: No
[2024-03-03] MEDS ORDERED: ONDANSETRON 4 MG/2 ML VIAL IVP PRN (07:20)
[2024-03-03] MEDS ORDERED: ACETAMINOPHEN TAB 325 MG TAB PO PRN (07:20)
[2024-03-03] MEDS ORDERED: NALOXONE 0.4 MG/ML 1 ML VIAL IV PRN (07:20)
[2024-03-03] MEDS: SODIUM CHLORIDE 0.9% 1,000 ML IV SCH (07:51)
[2024-03-03] MEDS: PANTOPRAZOLE 40 MG/10 ML VIAL IV SCH (09:19)
[2024-03-03] MEDS: ALPRAZolam 0.5 MG TAB PO PRN (10:00)
[2024-03-03] MEDS: IPRATROPIUM-ALBUTEROL 3 ML NEB INHALATION STA (10:23)
[2024-03-03 10:25] LABS: Glucose,Whole Blood 126 mg/dL (70-110)
[2024-03-03] MEDS: FUROSEMIDE 10 MG/ML 4 ML VIAL IV STA (10:31)
[2024-03-03] MEDS: IPRATROPIUM-ALBUTEROL 3 ML NEB INHALATION SCH (11:10)
--- NOTE | 2024-03-03 11:34 | XR ---
EXAMINATION TYPE: XR chest 1V portable DATE OF EXAM: 03/03/2024 10:43 AM CLINICAL INDICATION:Male, 73 years old with history of SOB; [facility] COMPARISON: Chest radiographs from 11/16/2023 TECHNIQUE: XR chest 1V portable Frontal view of the chest. FINDINGS: Lungs/Pleura: There is no evidence of pleural effusion, focal consolidation, or pneumothorax. Pulmonary vascularity: Pulmonary vascular congestion. Heart/mediastinum: Cardiomediastinal silhouette is enlarged and stable. Two lead cardiac conduction d evice overlying the right hemithorax with lead tips projecting over the right ventricle and right atr ium. Musculoskeletal: No acute osseous pathology. IMPRESSION: Cardiomegaly and mild pulmonary vascular congestion. Correlate with BNP for congestive heart failure.
--- NOTE | 2024-03-03 15:07 | P.HPIM ---
History of Present Illness H&P Date: 03/03/24 Chief Complaint: Patient came in from [facility] due to nausea vomiting abdominal pain 73-year-old male resident of [facility] started having nausea and vomiting 2 days ago symptoms were progressive, started having abdominal pain after brief period of improvement with increased frequency of vomiting patient brought into emergency department for further evaluation. [facility] has history of chronic seizure last was about more than 2 years ago,chronic insomnia, peptic ulcer disease, dyslipidemia, mood disorder depression, chronic pain syndrome, hypothyroidism, heart failure chronic with ejection fraction of 20%, COPD, hypertension hypertensive cardiovascular disease, peripheral arterial disease on aspirin and brittle and the patient has a history of angina and coronary artery disease, takes nitroglycerin as well. 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, right inguinal hernia containing multiple loops of small bowel which are non- obstructed, diverticulosis without any done so for diverticulitis, EKG old inferior wall [place], chest x-ray cardiomegaly interstitial edema after arrival in the medical unit patient was noted to be very short of breath and wheezing rapid response was called and patient was placed on BiPAP and 40 mg of IV Lasix given with that patient put out over 1.5 L urine right away with he is breathing Review of Systems All systems: negative Past Medical History Past Medical History: Coronary Artery Disease (CAD), Heart Failure, COPD, Dementia, Hyperlipidemia, Hypertension, Myocardial Infarction ([place]), Seizure Disorder, Syncope, Thyroid Disorder Additional Past Medical History / Comment(s): Ischemic cardiomyopathy, EF 20- 25%, last seizure about 2 yrs ago, hypothyroid.neuropathy "WHEN HE WORKED HE HAD A CRUSHING INJURY -COLLAPSED LUNGS C/T AND HAS CHRONIC BACK PAIN"" pt states he is schizophrenic/bipolar. TRIPLE A REPAIR AUG 2022 Last Myocardial Infarction Date:: unk History of Any Multi-Drug Resistant Organisms: None Reported Past Surgical History: AICD, Back Surgery, Coronary Bypass/CABG, Heart Catheterization, Heart Catheterization With Stent Additional Past Surgical History / Comment(s): 1995 CABG 4 vessel in [place], has had 2"HEART CATHS/had 2 STENTS after cabg sx.pt stated they were done in [facility]. "sx on tailbone, cortisone injections, devin inguinal hernia repair Past Anesthesia/Blood Transfusion Reactions: No Reported Reaction Date of Last Stent Placement:: 1995 Type of Cardiac Device: AICD Device Placement Date:: 1995 in [facility] Smoking Status: Current every day smoker - Past Family History Mother Family Medical History: Respiratory Disorder Additional Family Medical History / Comment(s): Mother had TB Father Additional Family Medical History / Comment(s): Father was an alcoholic, was killed in a motor vehicle accident Medications and Allergies Home Medications Medication Instructions Recorded Confirmed Type Cyanocobalamin (Vitamin B-12) 1,000 mcg PO DAILY@0800 08/23/22 03/03/24 History [Vitamin B-12] Melatonin 6 mg PO HS@199908/23/22 03/03/24 History Sennosides/Docusate Sodium [Senna 2 tab PO HS@199908/23/22 03/03/24 History Plus 8.6-50 mg Tablet] Sucralfate [Carafate] 1 gm PO BID@0800,199908/23/22 03/03/24 History Famotidine [Pepcid] 20 mg PO BID@0700,1700 08/31/22 03/03/24 History Acetaminophen [Tylenol 8 Hour] 650 mg PO TID@0800,1400,199909/17/23 03/03/24 History Aspirin EC [Ecotrin Low Dose] 81 mg PO DAILY@0800 09/17/23 03/03/24 History Atorvastatin Calcium [Lipitor] 40 mg PO HS@199909/17/23 03/03/24 History Escitalopram [Lexapro] 20 mg PO DAILY@0800 09/17/23 03/03/24 History Folic Acid 0.4 mg PO DAILY@0800 09/17/23 03/03/24 History Levothyroxine Sodium [Synthroid] 100 mcg PO DAILY@0700 09/17/23 03/03/24 History Mirtazapine 30 mg PO HS@199909/17/23 03/03/24 History carvediloL [Coreg] 3.125 mg PO BID@0800,1700 09/17/23 03/03/24 History Nitroglycerin Sl Tabs [Nitrostat] 0.4 mg SUBLINGUAL Q5M PRN 90 Days 09/21/23 03/03/24 Rx #100 tab Budesonide-Formot 160-4.5 Mcg 2 puff INHALATION RT-BID@08,199910/16/23 03/03/24 History [Symbicort 160-4.5 Mcg Inhaler] Dapagliflozin Propanediol [Farxiga] 10 mg PO DAILY@0800 10/16/23 03/03/24 History Ipratropium-Albuterol Nebulize 3 ml INHALATION RT-Q4H PRN 10/16/23 03/03/24 History [Duoneb 0.5 mg-3 mg/3 ml Soln] Losartan [Cozaar] 25 mg PO DAILY@79910/16/23 03/03/24 History Ticagrelor [Brilinta] 90 mg PO BID@08,199910/16/23 03/03/24 History oxyCODONE-APAP 5-325MG [Percocet 1 tab PO Q4H PRN 10/16/23 03/03/24 History 5-325 mg] Budesonide 0.5 mg INHALATION RT-BID@0900,1800 03/03/24 03/03/24 History Allergies Allergy/AdvReac Type Severity Reaction Status Date / Time morphine Allergy Anaphylaxis Verified 03/03/24 13:35 Penicillins Allergy Swelling Verified 03/03/24 13:35 on entire body Influenza Virus Vaccines AdvReac Unknown Verified 03/03/24 13:35 pneumococcal vaccine AdvReac Unknown Verified 03/03/24 13:35 Physical Exam Vitals: Vital Signs Temp Pulse Resp BP BP Pulse Ox FiO2 03/03/24 14:00 98.2 F 16 134/83 98 03/03/24 13:04 30 03/03/24 10:37 30 03/03/24 10:25 108 H 95 03/03/24 10:00 98.1 F 25 H 115/79 93 L 03/03/24 08:42 70 18 134/76 94 L 03/03/24 07:52 66 18 143/89 94 L 03/03/24 06:30 66 16 143/89 95 03/03/24 04:30 66 16 132/75 98 03/03/24 03:08 68 15 125/79 97 03/03/24 00:30 55 L 16 109/60 99 03/02/24 23:30 55 L 15 128/70 98 03/02/24 22:59 97.5 F L 62 16 124/72 98 Intake and Output 03/02/24 03/03/24 03/03/24 22:59 06:59 14:59 Output Total 2200 Balance -2200 Output: Urine 2200 Uretheral (Alanis) 1750 Other: Weight 74.389 kg 74.389 kg patient currently on BiPAP setting of 14/630% oxygen his spontaneous tidal volumes ranging from 250-500 and rate high teens to low 20s patient is arousable, with the BiPAP mask unable to talk mumbling - Constitutional General appearance: average body habitus, cooperative, disheveled - EENT Eyes: EOMI, PERRLA Ears: bilateral: normal - Neck Carotids: bilateral: upstroke normal - Respiratory Respiratory: bilateral: diminished, rales - Cardiovascular Rhythm: regular Heart sounds: normal: S1, S2 - Gastrointestinal General gastrointestinal: soft - Integumentary Integumentary: normal turgor - Neurologic Neurologic: CNII-XII intact - Musculoskeletal Musculoskeletal: gait normal, generalized weakness, strength equal bilaterally - Psychiatric Psychiatric: A&O x's 3, appropriate affect, intact judgment & insight Results CBC & Chem 7: 03/02/24 23:20 03/03/24 00:18 Labs: Abnormal Lab Results - Last 24 Hours (Table) 03/02/24 03/02/24 03/02/24 Range/Units 23:05 23:20 23:20 RDW 16.2 H (11.5-15.5) % BUN (9-20) mg/dL Glucose (74-99) mg/dL POC Glucose (mg/dL) 118 H (70-110) mg/dL Plasma Lactic Acid Rigoberto 2.2 H* (0.7-2.0) mmol/L Total Protein (6.3-8.2) g/dL Urine Glucose (UA) (Negative) 03/03/24 03/03/24 03/03/24 Range/Units 00:18 02:06 10:23 RDW (11.5-15.5) % BUN 24 H (9-20) mg/dL Glucose 103 H (74-99) mg/dL POC Glucose (mg/dL) 126 H (70-110) mg/dL Plasma Lactic Acid Rigoberto (0.7-2.0) mmol/L Total Protein 6.2 L (6.3-8.2) g/dL Urine Glucose (UA) 4+ H (Negative) Chest x-ray: report reviewed, image reviewed CT scan - abdomen: report reviewed, image reviewed Thrombosis Risk Factor Assmnt - Choose All That Apply Any of the Below Risk Factors Present?: No Other Risk Factors: Yes Each Risk Factor Represents 2 Points: Age 61-74 years Other congenital or acquired thrombophilia - If yes, enter type in comment: No Thrombosis Risk Factor Assessment Total Risk Factor Score: 2 Thrombosis Risk Factor Assessment Level: Low Risk Assessment and Plan Assessment: nausea and vomiting likely related to bowel obstruction due to inguinal hernia Acute hypoxic respiratory failure likely due to volume overload patient is stable on BiPAP and supplemental oxygen COPD without exacerbation, continue bronchodilator Chronic systolic heart failure with baseline ejection fraction of 20% continue supportive care and home medicine Right inguinal hernia general surgery on consult Plan: continue BiPAP for now, patient has received Lasix diuresing very well will decr ease IV to KVO now Taper oxygen to nasal cannula Continue bronchodilator Surgery consultation for inquiring hernia likely will need repair Elevated lactic acid came down to within normal limits of 1.3
[2024-03-03] MEDS ORDERED: NITROGLYCERIN SL TABS 0.4 MG TAB SUBLINGUAL PRN (16:39)
--- NOTE | 2024-03-03 17:12 | P.CON ---
Consult Note - . Consult date: 03/03/24 Assessment/Plan:: Patient is a 73-year-old man coming from his long-term care facility to have evaluation for vomiting and abdominal pain. The patient reports that he did have some vomiting 2 days ago, then he had brief period of improvement and then over the course of yesterday into today he had increasing vomiting and abdominal pain. He indicates diffuse abdominal pain more in the upper portion. He states he was not able to take much oral intake. He did not notice fever. He did not notice change in bowel movements. No change in urination or groin/testicular pain. Patient had a CT-AP which showed a right inguinal hernia containing small bowel loops without obstruction. Patient is found to have acute hypoxic respiratory failure on BIPAP. Review of Systems ROS Statement: Those systems with pertinent positive or pertinent negative responses have been documented in the HPI. ROS Other: All systems not noted in ROS Statement are negative. Constitutional: Denies: fever Respiratory: Denies: cough, dyspnea Cardiovascular: Denies: chest pain, edema, syncope Gastrointestinal: Reports: abdominal pain, nausea, vomiting. Denies: diarrhea, hematemesis, melena, hematochezia Genitourinary: Denies: dysuria, frequency, testicular pain Musculoskeletal: Denies: back pain Skin: Denies: rash Neurological: Denies: headache Past Medical History Past Medical History: Coronary Artery Disease (CAD), Heart Failure, COPD, Dementia, Hyperlipidemia, Hypertension, Myocardial Infarction ([place]), Seizure Disorder, Syncope, Thyroid Disorder Additional Past Medical History / Comment(s): Ischemic cardiomyopathy, EF 20- 25%, last seizure about 2 yrs ago, hypothyroid.neuropathy "WHEN HE WORKED HE HAD A CRUSHING INJURY -COLLAPSED LUNGS C/T AND HAS CHRONIC BACK PAIN"" pt states he is schizophrenic/bipolar. TRIPLE A REPAIR AUG 2022 History of Any Multi-Drug Resistant Organisms: None Reported Past Surgical History: AICD, Back Surgery, Coronary Bypass/CABG, Heart Catheterization, Heart Catheterization With Stent Additional Past Surgical History / Comment(s): 1995 CABG 4 vessel in [place], has had 2"HEART CATHS/had 2 STENTS after cabg sx.pt stated they were done in [facility]. "sx on tailbone, cortisone injections, devin inguinal hernia r epair Past Anesthesia/Blood Transfusion Reactions: No Reported Reaction Date of Last Stent Placement:: 1995 Type of Cardiac Device: AICD Device Placement Date:: [address] [facility] Past Psychological History: Anxiety, Depression, Schizoaffective Disorder, Schizophrenia Smoking Status: Current every day smoker Past Alcohol Use History: None Reported Past Drug Use History: None Reported - Past Family History Mother Family Medical History: Respiratory Disorder Additional Family Medical History / Comment(s): Mother had TB Father Additional Family Medical History / Comment(s): Father was an alcoholic, was killed in a motor vehicle accident General Exam General appearance: alert, in no apparent distress Head exam: Present: atraumatic, normocephalic Eye exam: Present: normal appearance. Absent: scleral icterus, conjunctival injection ENT exam: Present: mucous membranes dry Neck exam: Present: normal inspection Respiratory exam: Present: normal lung sounds bilaterally. Absent: respiratory distress, wheezes, rales, rhonchi, stridor, accessory muscle use Cardiovascular Exam: Present: regular rate, normal rhythm, normal heart sounds. Absent: systolic murmur, diastolic murmur, rubs, gallop GI/Abdominal exam: Present: soft, tenderness (There is mild tenderness throughout the abdomen. There is no rebound or guarding.), hernia (The patient does have right inguinal hernia which I was able to reduce at the bedside without difficulty.). Absent: distended, guarding, rebound, rigid, mass Extremities exam: Present: normal inspection, normal capillary refill. Absent: pedal edema, calf tenderness Back exam: Present: normal inspection. Absent: CVA tenderness (R), CVA tenderness (L) Neurological exam: Present: alert Skin exam: Present: warm, dry, intact, normal color. Absent: rash 73 year old male with abdominal pain found to have right inguinal hernia containing small bowel which is not obstructed on CT-AP. Patient is acute hypoxic respiratory failure on BIPAP -No acute surgical intervention -CLD, ADAT -BIPAP -Pain and Nausea Control
[2024-03-03] MEDS: carvediloL 3.125 MG TAB PO SCH (17:14)
[2024-03-03] MEDS: FAMOTIDINE 20 MG TAB PO SCH (17:14)
[2024-03-03] MEDS: SENNOSIDES-DOCUSATE SODIUM 1 EACH TAB PO SCH (20:54)
[2024-03-03] MEDS: ATORVASTATIN 40 MG TAB PO SCH (20:54)
[2024-03-03] MEDS: MELATONIN 3 MG TABLET PO SCH (20:54)
[2024-03-03] MEDS: SUCRALFATE 1 GM TAB PO SCH (20:54)
[2024-03-03] MEDS: MIRTAZAPINE 15 MG TAB PO SCH (20:54)
[2024-03-03] MEDS: TICAGRELOR 90 MG TAB PO SCH (20:54)
[2024-03-03] MEDS: ACETAMINOPHEN TAB 325 MG TAB PO SCH (20:54)
[2024-03-04 06:04] LABS: Anisocytosis Slight; Basophils % (A) 0 %; Eosinophils # (A) 0.1 k/uL (0-0.7); Eosinophils % (A) 1 %; HCT 40.5 % (39.0-53.0); HGB 12.7 gm/dL (13.0-17.5); Hypochromasia Marked; Lymphocytes # (A) 1.8 k/uL (1.0-4.8); Lymphocytes % (A) 23 %; MCH 28.1 pg (25.0-35.0); MCHC 31.2 g/dL (31.0-37.0); Mean Platelet Volume 7.7; Monocytes # (A) 0.7 k/uL (0-1.0); Monocytes % (A) 8 %; Neutrophils # (A) 5.2 k/uL (1.3-7.7); Neutrophils % (A) 66 %; Platelet Count 190 k/uL (150-450); RBC 4.51 m/uL (4.30-5.90); RDW 16.1 % (11.5-15.5); WBC 7.9 k/uL (3.8-10.6)
[2024-03-04 06:27] LABS: ALT 12 U/L (4-49); AST 19 U/L (17-59); African American GFR (CKD) 68 (>60 ml/min/1.73 sqM); Albumin 3.3 g/dL (3.5-5.0); Alkaline Phosphatase 72 U/L (38-126); Anion Gap 2 mmol/L; Blood Urea Nitrogen 23 mg/dL (9-20); Calcium 8.7 mg/dL (8.4-10.2); Carbon Dioxide 27 mmol/L (22-30); Chloride 112 mmol/L (98-107); Glucose 80 mg/dL (74-99); Non-African American GFR(CKD) 59 (>60 ml/min/1.73 sqM); Potassium 3.9 mmol/L (3.5-5.1); Sodium 141 mmol/L (137-145); Total Bilirubin 0.5 mg/dL (0.2-1.3); Total Protein 5.9 g/dL (6.3-8.2)
[2024-03-04] MEDS: LEVOTHYROXINE 100 MCG TAB PO SCH (06:43)
--- NOTE | 2024-03-04 07:28 | XR ---
EXAMINATION TYPE: XR chest 1V portable DATE OF EXAM: 03/04/2024 6:44 AM CLINICAL INDICATION:Male, 73 years old with history of sob; COMPARISON: Chest radiograph from one day prior. TECHNIQUE: XR chest 1V portable Frontal view of the chest. FINDINGS: Lungs/Pleura: There is no evidence of pleural effusion, focal consolidation, or pneumothorax. Pulmonary vascularity: Pulmonary vascular congestion. Heart/mediastinum: Cardiomediastinal silhouette is enlarged and stable. Two lead cardiac conduction d evice overlying the right hemithorax with lead tips projecting over the right ventricle and right atr ium. Musculoskeletal: No acute osseous pathology. IMPRESSION: Similar Cardiomegaly and mild pulmonary vascular congestion.
[2024-03-04] MEDS: ASPIRIN 81 MG PO SCH (08:39)
[2024-03-04] MEDS: CYANOCOBALAMIN 500 MCG TAB PO SCH (08:39)
[2024-03-04] MEDS: LOSARTAN 25 MG TAB PO SCH (08:39)
[2024-03-04] MEDS: DAPAGLIFLOZIN PROPANEDIOL 10 MG TABLET PO SCH (08:39)
[2024-03-04] MEDS: ESCITALOPRAM 20 MG TAB PO SCH (08:39)
[2024-03-04] MEDS: FOLIC ACID 1 MG TAB PO SCH (08:54)
--- NOTE | 2024-03-04 10:11 | P.PN ---
Subjective Progress Note Date: 03/04/24 Patient currently resting in bed. He has a BiPAP mask on. On exam vital signs are stable. Abdomen soft. There is reducible right inguinal hernia. Right inguinal hernia. Patient will have this repaired once he is medically stable. Objective - Vital Signs Vital signs: Vital Signs Temp 97.5 F L 03/04/24 04:23 Pulse 62 03/04/24 07:58 Resp 16 03/04/24 04:23 BP 105/43 03/04/24 04:23 Pulse Ox 96 03/04/24 07:43 FiO2 30 03/04/24 07:43 Intake & Output 03/03/24 03/04/24 03/04/24 18:59 06:59 18:59 Intake Total 10 Output Total 3075 250 Balance -3075 -240 Weight 74.389 kg 74.5 kg Intake: IV 10 Invasive Line 1 10 Output: Urine 3075 250 Uretheral (Alanis) 2625 Other: Voiding Method Indwelling Catheter - Labs CBC & Chem 7: 03/04/24 05:34 03/04/24 05:34 Labs: Abnormal Lab Results - Last 24 Hours (Table) 03/03/24 03/04/24 03/04/24 Range/Units 10:23 05:34 05:34 Hgb 12.7 L (13.0-17.5) gm/dL RDW 16.1 H (11.5-15.5) % Chloride 112 H (98-107) mmol/L BUN 23 H (9-20) mg/dL POC Glucose (mg/dL) 126 H (70-110) mg/dL Total Protein 5.9 L (6.3-8.2) g/dL Albumin 3.3 L (3.5-5.0) g/dL
--- NOTE | 2024-03-04 11:26 | P.PN ---
Subjective Progress Note Date: 03/04/24 Principal diagnosis: Acute hypoxic respiratory failure likely due to volume overload patient is stable on BiPAP and supplemental oxygen COPD without exacerbation, continue bronchodilator acute on Chronic systolic heart failure with baseline ejection fraction of 20% continue supportive care and home medicine nausea and vomiting likely related to bowel obstruction due to inguinal hernia Right inguinal hernia general surgery on consult 03/04/2024, patient seen eval examined the rounds labs reviewed medications in her care plan discussed, patient has been using the BiPAP consistently, refuses to take it off, discussed with the RN as well as the respiratory therapist will give him a break in this afternoon, however at nighttime can be resumed with same setting. Patient will get 20 mg of furosemide as well less from today reviewed CBC fairly within normal limit, chemistry BUN/creatinine from . Chest x-ray done today reviewed cardiomegaly interstitial edema consistent with heart failurepatient has been resumed on his home medicine, we will give 20 mg of Lasix extra 73-year-old male resident of [facility] started having nausea and vomiting 2 days ago s ymptoms were progressive, started having abdominal pain after brief period of improvement with increased frequency of vomiting patient brought into emergency department for further evaluation. Patient is a resident of [facility] has history of chronic seizure last was about more than 2 years ago,chronic insomnia, peptic ulcer disease, dyslipidemia, mood disorder depression, chronic pain syndrome, hypothyroidism, heart failure chronic with ejection fraction of 20%, COPD, hypertension hypertensive cardiovascular disease, peripheral arterial disease on aspirin and brittle and the patient has a history of angina and coronary artery disease, takes nitroglycerin as well. 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, right i nguinal hernia containing multiple loops of small bowel which are non- obstructed, diverticulosis without any done so for diverticulitis, EKG old inferior wall [place], chest x-ray cardiomegaly interstitial edema after arrival in the medical unit patient was noted to be very short of breath and wheezing rapid response was called and patient was placed on BiPAP and 40 mg of IV Lasix given with that patient put out over 1.5 L urine right away with he is breathing Objective - Vital Signs Vital signs: Vital Signs Temp 97.5 F L 03/04/24 04:23 Pulse 64 03/04/24 11:14 Resp 16 03/04/24 04:23 BP 105/43 03/04/24 04:23 Pulse Ox 96 03/04/24 07:43 FiO2 30 03/04/24 11:05 Intake & Output 03/03/24 03/04/24 03/04/24 18:59 06:59 18:59 Intake Total 10 Output Total 3075 250 Balance -3075 -240 Weight 74.389 kg 74.5 kg Intake: IV 10 Invasive Line 1 10 Output: Urine 3075 250 Uretheral (Alanis) 2625 Other: Voiding Method Indwelling Catheter - Exam - Constitutional General appearance: average body habitus, cooperative, disheveled - EENT Eyes: EOMI, PERRLA Ears: bilateral: normal - Neck Carotids: bilateral: upstroke normal - Respiratory Respiratory: bilateral: diminished, rales - Cardiovascular Rhythm: regular Heart sounds: normal: S1, S2 - Gastrointestinal General gastrointestinal: soft - Integumentary Integumentary: normal turgor - Neurologic Neurologic: CNII-XII intact - Musculoskeletal Musculoskeletal: gait normal, generalized weakness, strength equal bilaterally - Psychiatric Psychiatric: A&O x's 3, appropriate affect, intact judgment & insight - Labs CBC & Chem 7: 03/04/24 05:34 03/04/24 05:34 Labs: Abnormal Lab Results - Last 24 Hours (Table) 03/04/24 03/04/24 Range/Units 05:34 05:34 Hgb 12.7 L (13.0-17.5) gm/dL RDW 16.1 H (11.5-15.5) % Chloride 112 H (98-107) mmol/L BUN 23 H (9-20) mg/dL Total Protein 5.9 L (6.3-8.2) g/dL Albumin 3.3 L (3.5-5.0) g/dL Assessment and Plan Assessment: Acute hypoxic respiratory failure likely due to volume overload patient is stable on BiPAP and supplemental oxygen COPD without exacerbation, continue bronchodilator Chronic systolic heart failure with baseline ejection fraction of 20% continue supportive care and home medicine nausea and vomiting likely related to bowel obstruction due to inguinal hernia Acute kidney disease Right inguinal hernia general surgery on consult Plan: continue gentle diuresis, repeat labs tomorrow continue BiPAP for now, patient has received Lasix diuresing very well will decrease IV to KVO now Taper oxygen to nasal cannula Continue bronchodilator Surgery consultation for inquiring hernia likely will need repair Elevated lactic acid came down to within normal limits of 1.3 Time with Patient: Greater than 30
[2024-03-04] MEDS: FUROSEMIDE 10 MG/ML 2 ML VIAL IV ONE (12:21)
[2024-03-05 01:03] LABS: African American GFR (CKD) 75 (>60 ml/min/1.73 sqM); Anion Gap 7 mmol/L; Blood Urea Nitrogen 25 mg/dL (9-20); Calcium 8.3 mg/dL (8.4-10.2); Carbon Dioxide 23 mmol/L (22-30); Chloride 106 mmol/L (98-107); Glucose 78 mg/dL (74-99); Non-African American GFR(CKD) 65 (>60 ml/min/1.73 sqM); Potassium 3.5 mmol/L (3.5-5.1); Sodium 136 mmol/L (137-145)
--- NOTE | 2024-03-05 12:32 | P.PN ---
Subjective Progress Note Date: 03/05/24 Principal diagnosis: Acute hypoxic respiratory failure likely due to volume overload patient is stable on BiPAP and supplemental oxygen COPD without exacerbation, continue bronchodilator acute on Chronic systolic heart failure with baseline ejection fraction of 20% continue supportive care and home medicine nausea and vomiting likely related to bowel obstruction due to inguinal hernia Right inguinal hernia general surgery on consult 03/05/2024, patient seen michelle examined the rounds patient is on BiPAP 14/7, with supplemental oxygen oxygen saturation is mid 90s, patient afebrile patient has been tried on a nasal cannula tolerated well but after breakfast requested to go back on BiPAP, would recommend to use BiPAP at each night and when necessary during the day and supportive care labs from today reviewedsodium is 136) 3.5 BUN/creatinine 25/1.13 03/04/2024, patient seen michelle examined the rounds labs reviewed medications in her care plan discussed, patient has been using the BiPAP consistently, refuses to take it off, discussed with the RN as well as the respiratory therapist will give him a break in this afternoon, however at nighttime can be resumed with s jd setting. Patient will get 20 mg of furosemide as well less from today reviewed CBC fairly within normal limit, chemistry BUN/creatinine 06/09. from . Chest x-ray done today reviewed cardiomegaly interstitial edema consistent with heart failurepatient has been resumed on his home medicine, we will give 20 mg of Lasix extra 73-year-old male resident of [facility] started having nausea and vomiting 2 days ago symptoms were progressive, started having abdominal pain after brief period of improvement with increased frequency of vomiting patient brought into emergency department for further evaluation. [facility] has history of chronic seizure last was about more than 2 years ago,chronic insomnia, peptic ulcer disease, dyslipidemia, mood disorder depression, chronic pain syndrome, hypothyroidism, heart failure chronic with ejection fraction of 20%, COPD, hypertension hypertensive cardiovascular disease, peripheral arterial disease on aspirin and brittle and the patient has a history of angina and coronary artery disease, takes nitroglycerin as well. 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, right inguinal hernia containing multiple loops of small bowel which are non-obstructed, diverticulosis without any done so for diverticulitis, EKG old inferior wall UT, chest x-ray cardiomegaly interstitial edema after arrival in the medical unit patient was noted to be very short of breath and wheezing rapid response was called and patient was placed on BiPAP and 40 mg of IV Lasix given with that patient put out over 1.5 L urine right away with he is breathing Objective - Vital Signs Vital signs: Vital Signs Temp 97.9 F 03/05/24 11:49 Pulse 62 03/05/24 12:26 Resp 18 03/05/24 11:49 BP 118/57 03/05/24 11:49 Pulse Ox 97 03/05/24 11:49 FiO2 30 03/05/24 11:49 Intake & Output 03/04/24 03/05/24 03/05/24 18:59 06:59 18:59 Intake Total 490 Output Total 825 300 400 Balance -335 -300 -400 Weight 72.5 kg Intake: IV 10 Invasive Line 1 10 Oral 480 Output: Urine 825 300 400 Other: Voiding Method Indwelling Catheter Indwelling Catheter Indwelling Catheter - Exam - Constitutional General appearance: average body habitus, cooperative, disheveled - EENT Eyes: EOMI, PERRLA Ears: bilateral: normal - Neck Carotids: bilateral: upstroke normal - Respiratory Respiratory: bilateral: diminished, rales - Cardiovascular Rhythm: regular Heart sounds: normal: S1, S2 - Gastrointestinal General gastrointestinal: soft - Integumentary Integumentary: normal turgor - Neurologic Neurologic: CNII-XII intact - Musculoskeletal Musculoskeletal: gait normal, generalized weakness, strength equal bilaterally - Psychiatric Psychiatric: A&O x's 3, appropriate affect, intact judgment & insight - Labs CBC & Chem 7: 03/04/24 05:34 03/05/24 00:16 Labs: Abnormal Lab Results - Last 24 Hours (Table) 03/05/24 Range/Units 00:16 Sodium 136 L (137-145) mmol/L BUN 25 H (9-20) mg/dL Calcium 8.3 L (8.4-10.2) mg/dL Assessment and Plan Assessment: Acute hypoxic respiratory failure likely due to volume overload patient is stable on BiPAP and supplemental oxygen COPD without exacerbation, continue bronchodilator Chronic systolic heart failure with baseline ejection fraction of 20% continue supportive care and home medicine nausea and vomiting likely related to bowel obstruction due to inguinal hernia Acute kidney disease Right inguinal hernia general surgery on consult Plan: continue gentle diuresis, repeat labs tomorrow continue BiPAP for now, patient has received Lasix diuresing very well will decrease IV to KVO now, continue each night and when necessary during the day Taper oxygen to nasal cannula Continue bronchodilator Surgery consultation for inquiring hernia likely will need repair Elevated lactic acid came down to within normal limits of 1.3 Time with Patient: Greater than 30
--- NOTE | 2024-03-05 13:59 | P.PN ---
Subjective Progress Note Date: 03/05/24 CHIEF COMPLAINT: Respiratory failure HISTORY OF PRESENT ILLNESS: Patient remains in bed with BiPAP. Surgical service following in regards to his right inguinal hernia. Patient denies any pain. His nausea and vomiting resolved. History of CHF and low EF of 25 to 30% PHYSICAL EXAM: VITAL SIGNS: Reviewed. GENERAL: no acute distress. ABDOMEN: Soft. Nondistended. Right inguinal hernia soft, reducible and nontender NEUROLOGIC: Alert and oriented. Cranial nerves II through XII grossly intact. ASSESSMENT: 1. Right inguinal hernia PLAN: -Repair of right inguinal hernia when medically stable -Advance diet to regular Physician Numerologist note has been reviewed by physician. Signing provider agrees with the documented findings, assessment, and plan of care. Objective - Vital Signs Vital signs: Vital Signs Temp 98.0 F 03/05/24 11:22 Pulse 55 L 03/05/24 11:22 Resp 18 03/05/24 11:22 BP 118/57 03/05/24 11:22 Pulse Ox 98 03/05/24 11:22 FiO2 30 03/05/24 09:13 Intake & Output 03/04/24 03/05/24 03/05/24 18:59 06:59 18:59 Intake Total 490 Output Total 825 300 Balance -335 -300 Weight 72.5 kg Intake: IV 10 Invasive Line 1 10 Oral 480 Output: Urine 825 300 Other: Voiding Method Indwelling Catheter Indwelling Catheter Indwelling Catheter - Labs CBC & Chem 7: 03/04/24 05:34 03/05/24 00:16 Labs: Abnormal Lab Results - Last 24 Hours (Table) 03/05/24 Range/Units 00:16 Sodium 136 L (137-145) mmol/L BUN 25 H (9-20) mg/dL Calcium 8.3 L (8.4-10.2) mg/dL
[2024-03-06 07:56] LABS: Anisocytosis Slight; Basophils % (A) 0 %; Eosinophils # (A) 0.1 k/uL (0-0.7); Eosinophils % (A) 1 %; HCT 41.4 % (39.0-53.0); Hypochromasia Moderate; Lymphocytes # (A) 1.6 k/uL (1.0-4.8); Lymphocytes % (A) 26 %; MCH 28.2 pg (25.0-35.0); MCHC 31.4 g/dL (31.0-37.0); MCV 89.7 fL (80.0-100.0); Mean Platelet Volume 8.2; Monocytes # (A) 0.5 k/uL (0-1.0); Monocytes % (A) 9 %; Neutrophils # (A) 3.8 k/uL (1.3-7.7); Neutrophils % (A) 61 %; Platelet Count 163 k/uL (150-450); RBC 4.61 m/uL (4.30-5.90); RDW 16.2 % (11.5-15.5); WBC 6.2 k/uL (3.8-10.6)
[2024-03-06 08:13] LABS: ALT 12 U/L (4-49); AST 23 U/L (17-59); African American GFR (CKD) 83 (>60 ml/min/1.73 sqM); Albumin 3.3 g/dL (3.5-5.0); Alkaline Phosphatase 67 U/L (38-126); Anion Gap 5 mmol/L; Blood Urea Nitrogen 15 mg/dL (9-20); Calcium 8.4 mg/dL (8.4-10.2); Carbon Dioxide 26 mmol/L (22-30); Chloride 110 mmol/L (98-107); Glucose 89 mg/dL (74-99); Non-African American GFR(CKD) 72 (>60 ml/min/1.73 sqM); Potassium 3.8 mmol/L (3.5-5.1); Sodium 141 mmol/L (137-145); Total Bilirubin 0.6 mg/dL (0.2-1.3); Total Protein 5.9 g/dL (6.3-8.2)
--- NOTE | 2024-03-06 10:14 | P.PN ---
Subjective Progress Note Date: 03/06/24 CHIEF COMPLAINT: Respiratory failure HISTORY OF PRESENT ILLNESS: Patient currently lying in bed comfortably. He is currently off the BiPAP and on 2 L. Patient reports no pain in the left inguinal hernia. He is having bowel movements. Denies any nausea or vomiting. History of CHF and low EF of 25 to 30% PHYSICAL EXAM: VITAL SIGNS: Reviewed. GENERAL: no acute distress. ABDOMEN: Soft. Nondistended. Right inguinal hernia soft, reducible and nontender NEUROLOGIC: Alert and oriented. Cranial nerves II through XII grossly intact. ASSESSMENT: 1. Right inguinal hernia PLAN: -Repair of right inguinal hernia when medically stable -Continue regular diet Physician Cable Mock Up Assembler note has been reviewed by physician. Signing provider agrees with the documented findings, assessment, and plan of care. Objective - Vital Signs Vital signs: Vital Signs Temp 98.2 F 03/06/24 09:02 Pulse 56 L 03/06/24 09:32 Resp 18 03/06/24 09:02 BP 146/79 03/06/24 09:02 Pulse Ox 96 03/06/24 09:24 FiO2 30 03/06/24 00:51 Intake & Output 03/05/24 03/06/24 03/06/24 18:59 06:59 18:59 Intake Total 540 240 Output Total 700 300 Balance -700 240 240 Weight 72 kg Intake: Oral 540 240 Output: Urine 700 300 Other: Voiding Method Urinal Urinal # Voids 1 # Bowel Movements 1 - Labs CBC & Chem 7: 03/06/24 07:42 03/06/24 07:42 Labs: Abnormal Lab Results - Last 24 Hours (Table) 03/06/24 03/06/24 Range/Units 07:42 07:42 RDW 16.2 H (11.5-15.5) % Chloride 110 H (98-107) mmol/L Total Protein 5.9 L (6.3-8.2) g/dL Albumin 3.3 L (3.5-5.0) g/dL
--- NOTE | 2024-03-06 20:48 | PN ---
PROGRESS NOTE SUBJECTIVE: The patient remains on the BiPAP /, supplemental oxygen mid 90s, nasal cannula. Decided to go back on BiPAP each night. Reviewed medications. Sodium was 136, potassium 3.5. OBJECTIVE: VITAL SIGNS: Blood pressure 118/57, pulse 62, respiratory rate 16 to 18, temperature 97.9, and FiO2 30. PSYCH: Poor mood and affect. CARDIOVASCULAR: S1, S2. INTEGUMENT: Dry skin turgor. Carotid negative. Nausea and vomiting likely related to bowel obstruction due to inguinal hernia. Acute kidney disease, chronic systolic heart failure, 20% ejection fraction COPD, hypoxia, respiratory failure on BiPAP, supplemental oxygen. Diuresing well, stop the Lasix. Taper oxygen. Prognosis guarded. Wait for inguinal hernia surgical eval. MMODL / IJN: [id number] /
[2024-03-07 01:41] VITALS: RESP 16
[2024-03-07 08:33] LABS: Anisocytosis Slight; Basophils % (A) 0 %; Eosinophils # (A) 0.1 k/uL (0-0.7); Eosinophils % (A) 1 %; HCT 43.2 % (39.0-53.0); HGB 13.3 gm/dL (13.0-17.5); Hypochromasia Marked; Lymphocytes # (A) 1.9 k/uL (1.0-4.8); Lymphocytes % (A) 28 %; MCHC 30.8 g/dL (31.0-37.0); MCV 90.9 fL (80.0-100.0); Mean Platelet Volume 7.9; Monocytes # (A) 0.5 k/uL (0-1.0); Monocytes % (A) 7 %; Neutrophils # (A) 4.1 k/uL (1.3-7.7); Neutrophils % (A) 60 %; Platelet Count 151 k/uL (150-450); RBC 4.76 m/uL (4.30-5.90); RDW 16.1 % (11.5-15.5); WBC 6.7 k/uL (3.8-10.6)
[2024-03-07 08:41] LABS: ALT 11 U/L (4-49); AST 21 U/L (17-59); African American GFR (CKD) 76 (>60 ml/min/1.73 sqM); Albumin 3.3 g/dL (3.5-5.0); Alkaline Phosphatase 72 U/L (38-126); Anion Gap 4 mmol/L; Blood Urea Nitrogen 18 mg/dL (9-20); Calcium 8.7 mg/dL (8.4-10.2); Carbon Dioxide 25 mmol/L (22-30); Chloride 110 mmol/L (98-107); Glucose 85 mg/dL (74-99); Non-African American GFR(CKD) 66 (>60 ml/min/1.73 sqM); Potassium 3.9 mmol/L (3.5-5.1); Sodium 139 mmol/L (137-145); Total Bilirubin 0.5 mg/dL (0.2-1.3); Total Protein 5.9 g/dL (6.3-8.2)
[2024-03-07 10:03] VITALS: TEMP 98.3
--- NOTE | 2024-03-07 11:28 | P.PN ---
Subjective Progress Note Date: 03/07/24 CHIEF COMPLAINT: Respiratory failure HISTORY OF PRESENT ILLNESS: Patient is lying in bed comfortably. He reports feeling better. He reports that he is going home today. He is breathing easier. He reports no pain at the hernia site. He is tolerating diet. He is having bowel movements. WBC 6.7 Patient seen and examined with Dr. Brown PHYSICAL EXAM: VITAL SIGNS: Reviewed. GENERAL: no acute distress. ABDOMEN: Soft. Nondistended. Right inguinal hernia soft, reducible and nontender ASSESSMENT: 1. Right inguinal hernia PLAN: -Recommend outpatient repair of right inguinal hernia when medically stable -Patient can be discharged from surgical standpoint -Continue regular diet Physician Fund Raiser note has been reviewed by physician. Signing provider agrees with the documented findings, assessment, and plan of care. Objective - Vital Signs Vital signs: Vital Signs Temp 98.3 F 03/07/24 08:10 Pulse 58 L 03/07/24 08:45 Resp 16 03/07/24 08:45 BP 147/99 03/07/24 08:10 Pulse Ox 98 03/07/24 08:34 FiO2 30 03/07/24 08:34 Intake & Output 03/06/24 03/07/24 03/07/24 18:59 06:59 18:59 Intake Total 840 240 Output Total 450 Balance 840 -450 240 Weight 73.6 kg Intake: Oral 840 240 Output: Urine 450 Other: Voiding Method Urinal Urinal Urinal # Voids 1 0 - Labs CBC & Chem 7: 03/07/24 07:53 03/07/24 07:53 Labs: Abnormal Lab Results - Last 24 Hours (Table) 03/07/24 03/07/24 Range/Units 07:53 07:53 MCHC 30.8 L (31.0-37.0) g/dL RDW 16.1 H (11.5-15.5) % Chloride 110 H (98-107) mmol/L Total Protein 5.9 L (6.3-8.2) g/dL Albumin 3.3 L (3.5-5.0) g/dL
[2024-03-07 12:10] VITALS: BP 142/81; PULSE 74
--- NOTE | 2024-03-07 14:06 | PN ---
PROGRESS NOTE SUBJECTIVE: This is a 73-year-old white male, cleared by surgery for inguinal hernia repair as an outpatient, his breathing is much better, he wants to go home. History of abdominal aortic aneurysm, defibrillator, inguinal hernia, severe COPD, pulmonary hypertension, hypertension, GERD, depression. MEDICATIONS: As above. We will send him home systolic heart failure. Continue with his Farxiga. Cozaar for hypertension, Synthroid for thyroid, Lexapro for depression, Coreg for hypertension, Pepcid for GERD, Brilinta for , Lipitor for cholesterol. Pain control PER his pain doctor. Prognosis guarded. MMODL / IJN: [id number] /
[2024-03-07] MEDS ORDERED: DOXYCYCLINE 100 MG CAP PO SCH (21:00)
[2024-03-08] MEDS ORDERED: methylPREDNISolone 4 MG TAB TAPER PO SCH (09:00)
== END 2024-03-07 14:34 | disposition home health service (06) | DRG 291 ==
LOC: EC 22:56 → 4SSUR 03-03 07:21 → 3SCARD 03-03 17:00
PROVIDERS: ADMIT Family Medicine; ATTEND Family Medicine
PROC: 5A09457 Assistance with Respiratory Ventilation, 24-96 Consecutive Hours, Continuous Positive Airway Pressure (ICD-10-PCS; principal; 2024-03-03)
DX: I11.0 Hypertensive heart disease with heart failure (principal); I50.23 Acute on chronic systolic (congestive) heart failure; J96.01 Acute respiratory failure with hypoxia; F03.93 Unspecified dementia, unspecified severity, with mood disturbance; F03.94 Unspecified dementia, unspecified severity, with anxiety; K40.30 Unilateral inguinal hernia, with obstruction, without gangrene, not specified as recurrent; I27.20 Pulmonary hypertension, unspecified; I73.9 Peripheral vascular disease, unspecified; F25.9 Schizoaffective disorder, unspecified; Z95.1 Presence of aortocoronary bypass graft; J44.9 Chronic obstructive pulmonary disease, unspecified; F32.A Depression, unspecified; E03.9 Hypothyroidism, unspecified; I25.5 Ischemic cardiomyopathy; E78.5 Hyperlipidemia, unspecified; G89.4 Chronic pain syndrome; M54.9 Dorsalgia, unspecified; K21.9 Gastro-esophageal reflux disease without esophagitis; K57.30 Diverticulosis of large intestine without perforation or abscess without bleeding; N28.9 Disorder of kidney and ureter, unspecified; F51.04 Psychophysiologic insomnia; G62.9 Polyneuropathy, unspecified; I25.10 Atherosclerotic heart disease of native coronary artery without angina pectoris; I25.2 Old myocardial infarction; F17.210 Nicotine dependence, cigarettes, uncomplicated; Z79.82 Long term (current) use of aspirin; Z79.84 Long term (current) use of oral hypoglycemic drugs; Z79.890 Hormone replacement therapy; Z79.02 Long term (current) use of antithrombotics/antiplatelets; Z79.51 Long term (current) use of inhaled steroids; Z79.899 Other long term (current) drug therapy; Z95.810 Presence of automatic (implantable) cardiac defibrillator; Z95.5 Presence of coronary angioplasty implant and graft; Z88.5 Allergy status to narcotic agent; Z88.0 Allergy status to penicillin; Z88.7 Allergy status to serum and vaccine
CPT/HCPCS: 36415; 71045; 74176; 80048; 80053; 81003; 82150; 83605; 83690; 84484; 85025; 94640; 94660; 94760; 96361; 96374; 99285

== ENCOUNTER 2024-04-12 17:33 | Inpatient (IN) | payer MEDICARE, OTHER ==
--- NOTE | 2024-04-12 18:16 | ED ---
General Adult HPI - General Chief complaint: Nausea/Vomiting/Diarrhea Stated complaint: N/V/D Time Seen by Provider: 04/12/24 17:39 Source: patient, EMS Mode of arrival: EMS Limitations: no limitations - History of Present Illness Initial comments: Dictation was produced using [employer] dictation software. please excuse any grammatical, word or spelling errors. Chief Complaint: 73-year-old male with nausea vomiting and groin pain History of Present Illness: Patient 73-year-old male presents emergency department with nausea vomiting and groin pain. Patient last week had hernia surgery performed by Dr. Brown. Patient states that today he started to feel nauseated. He also complaining of fever chills and night sweats. States that he has got groin pain at his surgical site. Last week he had hernia repair. Patient states that he was drinking coffee and dropped a coffee. Denies any black or bloody stools. Patient Nuys any blood thinners. The ROS documented in this emergency department record has been reviewed and confirmed by me. Those systems with pertinent positive or negative responses have been documented in the HPI. All other systems are other negative and/or noncontributory. - Related Data Home Medications Medication Instructions Recorded Confirmed Cyanocobalamin (Vitamin B-12) 1,000 mcg PO DAILY@0800 08/23/22 04/09/24 [Vitamin B-12] Melatonin 5 mg PO HS@199908/23/22 04/09/24 Sucralfate [Carafate] 1 gm PO BID@0800,199908/23/22 04/09/24 Famotidine [Pepcid] 20 mg PO BID@0700,1700 08/31/22 04/09/24 Acetaminophen [Tylenol 8 Hour] 650 mg PO TID@0800,1400,199909/17/23 04/09/24 Aspirin EC [Ecotrin Low Dose] 81 mg PO DAILY@0800 09/17/23 04/09/24 Atorvastatin Calcium [Lipitor] 40 mg PO HS@199909/17/23 04/09/24 Folic Acid 0.4 mg PO DAILY@0800 09/17/23 04/09/24 Levothyroxine Sodium [Synthroid] 100 mcg PO DAILY@0700 09/17/23 04/09/24 Mirtazapine 30 mg PO HS@199909/17/23 04/09/24 carvediloL [Coreg] 3.125 mg PO BID@0800,1700 09/17/23 04/09/24 Budesonide-Formot 160-4.5 Mcg 2 puff INHALATION RT-BID@799,199910/16/23 04/09/24 [Symbicort 160-4.5 Mcg Inhaler] Dapagliflozin Propanediol [Farxiga] 10 mg PO DAILY@79910/16/23 04/09/24 Ipratropium-Albuterol Nebulize 3 ml INHALATION RT-Q4H PRN 10/16/23 04/09/24 [Duoneb 0.5 mg-3 mg/3 ml Soln] Losartan [Cozaar] 25 mg PO DAILY@79910/16/23 04/09/24 Ticagrelor [Brilinta] 90 mg PO BID@08,199910/16/23 04/09/24 oxyCODONE-APAP 5-325MG [Percocet 1 tab PO Q4H PRN 10/16/23 04/09/24 5-325 mg] Budesonide 0.5 mg INHALATION RT-BID@0900,179903/03/24 04/09/24 Escitalopram [Lexapro] 20 mg PO DAILY 04/09/24 04/09/24 Previous Rx's Medication Instructions Recorded Nitroglycerin Sl Tabs [Nitrostat] 0.4 mg SUBLINGUAL Q5M PRN 90 Days 09/21/23 #100 tab Doxycycline [Vibramycin] 100 mg PO BID 7 Days #14 cap 03/07/24 methylPREDNISolone Dose Pack 24 mg PO DAILY 5 Days #1 tab 03/07/24 [Medrol Dose Pack] HYDROcodone/APAP 5-325MG [Saxon 1 tab PO Q6HR PRN #10 tab 04/10/24 5-325] Allergies Allergy/AdvReac Type Severity Reaction Status Date / Time morphine Allergy Anaphylaxis Verified 04/10/24 08:26 Penicillins Allergy Swelling Verified 04/10/24 08:26 on entire body Influenza Virus Vaccines AdvReac Unknown Verified 04/10/24 08:26 pneumococcal vaccine AdvReac Unknown Verified 04/10/24 08:26 Review of Systems ROS Statement: Those systems with pertinent positive or pertinent negative responses have been documented in the HPI. ROS Other: All systems not noted in ROS Statement are negative. Past Medical History Past Medical History: Coronary Artery Disease (CAD), Heart Failure, COPD, Dementia, Hyperlipidemia, Hypertension, Myocardial Infarction ([place]), Seizure Disorder, Syncope, Thyroid Disorder Additional Past Medical History / Comment(s): Ischemic cardiomyopathy, EF 20- 25%, last seizure about 2 yrs ago, hypothyroid.neuropathy "WHEN HE WORKED HE HAD A CRUSHING INJURY -COLLAPSED LUNGS C/T AND HAS CHRONIC BACK PAIN"" pt states he is schizophrenic/bipolar. TRIPLE A REPAIR AUG 2022 Last Myocardial Infarction Date:: unk History of Any Multi-Drug Resistant Organisms: None Reported Past Surgical History: AICD, Back Surgery, Coronary Bypass/CABG, Heart C atheterization, Heart Catheterization With Stent Additional Past Surgical History / Comment(s): 1995 CABG 4 vessel in [place], has had 2"HEART CATHS/had 2 STENTS after cabg sx.pt stated they were done in [facility]. "sx on tailbone, cortisone injections, devin inguinal hernia repair Past Anesthesia/Blood Transfusion Reactions: No Reported Reaction Date of Last Stent Placement:: 1995 Type of Cardiac Device: AICD Device Placement Date:: [address] [facility] Past Psychological History: Anxiety, Depression, Schizoaffective Disorder, Jimmy izophrenia Smoking Status: Current every day smoker Past Alcohol Use History: None Reported Past Drug Use History: None Reported - Past Family History Mother Family Medical History: Respiratory Disorder Additional Family Medical History / Comment(s): Mother had TB Father Additional Family Medical History / Comment(s): Father was an alcoholic, was killed in a motor vehicle accident General Exam - General Exam Comments Initial Comments: PHYSICAL EXAM: General Impression: Alert and oriented x3, not in acute distress HEENT: Normocephalic atraumatic, extra-ocular movements intact, pupils equal and reactive to light bilaterally, mucous membranes moist. Cardiovascular: Heart regular rate and rhythm Chest: Able to complete full sentences, no retractions, no tachypnea Abdomen: abdomen soft, non-tender, non-distended, no organomegaly Musculoskeletal: Pulses present and equal in all extremities, no peripheral edema Motor: no focal deficits noted Neurological: CN II-XII grossly intact, no focal motor or sensory deficits noted Skin: Intact with no visualized rashes Psych: Normal affect and mood Groin: Significant swelling and ecchymoses at the right inguinal site. Exquisitely tender Limitations: no limitations Course Vital Signs 04/12/24 04/12/24 17:45 20:53 Temperature 97.4 F L Pulse Rate 69 60 Respiratory 18 20 Rate Blood Pressure 120/75 120/75 O2 Sat by Pulse 96 94 L Oximetry Medical Decision Making - Medical Decision Making Was pt. sent in by a medical professional or institution (, PA, DIRECTOR VETERINARY, urgent care, hospital, or shelter...) When possible be specific @ -No Did you speak to anyone other than the patient for history (EMS, parent, family, police, friend...)? What history was obtained from this source @ -History obtained from EMS states that patient is nauseated Did you review nursing and triage notes (agree or disagree)? Why? @ -I reviewed and agree with nursing and triage notes Were old charts reviewed (outside hosp., previous admission, EMS record, old EKG, old radiological studies, urgent care reports/EKG's, shelter records)? Report findings @ -No old charts were reviewed Differential Diagnosis (chest pain, altered mental status, abdominal pain women, abdominal pain men, vaginal bleeding, musculoskeletal, weakness, fever, dyspnea, syncope, headache, dizziness, GI bleed, back pain, seizure, CVA, palpatations, mental health)? @ -Differential Abdominal Pain Men: Appendicitis, cholecystitis, diverticulosis, ischemic bowel, pancreatitis, hepatitis, UTI, gastroenteritis, AAA, incarcerated hernia, bowel obstruction, constipation, inflammatory bowel, hepatitis, peptic ulcer disease, splenic infarction, perforated viscus, testicular torsion, this is not meant to be an all-inclusive list EKG interpreted by me (3pts min.). @ -My EKG interpretation: Ventricular rate 61, sinus rhythm,. 124, cures 124, QTc 437. No SC prolongation, no QTC prolongation, no ST or T-wave changes noted. Overall, this EKG is unremarkable X-rays interpreted by me (1pt min.). @ -None done CT interpreted by me (1pt min.). @ -CT of the abdomen pelvis obtained showing phlegmon with early abscess behind the deep inguinal ring down the inguinal right canal into the scrotal sac. Does appear to be soft tissue air concerning for Benigno's gangrene U/S interpreted by me (1pt. min.). @ -None done What testing was considered but not performed or refused? (CT, X-rays, U/S, labs)? Why? @ -None What meds were considered but not given or refused? Why? @ -None Was smoking cessation discussed for >3mins.? @ -No Were there social determinants of health that impacted care today? How? (Homelessness, low income, unemployed, alcoholism, drug addiction, tr ansportation, low edu. Level, literacy, decrease access to med. care, alf, rehab)? @ -No Was there de-escalation of care discussed even if they declined (Discuss DNR or withdrawal of care, Hospice)? DNR status @ -No What co-morbidities impacted this encounter? (DM, HTN, Smoking, COPD, CAD, Cancer, CVA, ARF, Chemo, Hep., AIDS, mental health diagnosis, sleep apnea, morbid obesity)? @ -None Was patient admitted / discharged? Hospital course, mention meds given and route, prescriptions, significant lab abnormalities, going to OR and other pertinent info. @ -23-year-old male presents emergency department with chief complaint from home by EMS for nausea and vomiting. Patient recently had hernia repair surgery. Vital signs upon arrival are within acceptable limits. Patient afebrile. Denies any constitutional symptoms. Laboratory evaluation shows blood cell count of 8.9. Coag panel is unremarkable. Metabolic panel within acceptable limits. CT obtained showing concerns of possible Benigno's gangrene. Physical examination does not show any gangrenous appearance to the groin or scrotum. Has a normal LRINEC score he does not have the labs to support the diagnosis of necrotizing fasciitis. Did you discuss the management of the patient with other professionals (professionals i.e. , PA, DIRECTOR VETERINARY, lab, RT, psych nurse, social professionals, satellite dish installer, teacher, branch lending officer, nurse case manager)? Give summary @ -Case discussed in detail with Dr. Brown being patient's presentation, labs and imaging studies. Dr. Brown is agreeable for patient be admitted under his service. There are no plans of surgery according to Dr. Brown despite patient's CT findings. Was critical care preformed (if so, how long)? @ -Yes, 33 minutes Undiagnosed new problem with uncertain prognosis? @ -No Drug Therapy requiring intensive monitoring for toxicity (Heparin, Nitro, Insulin, Cardizem)? @ -No Were any procedures done? @ -No Diagnosis/symptom? Acute, or Chronic, or Acute on Chronic? Uncomplicated (without systemic symptoms) or Complicated (systemic symptoms)? @ -Infected surgical site Side effects of treatment? @ -No Exacerbation, Progression, or Severe Exacerbation? @ -No Poses a threat to life or bodily function? How? (Chest pain, [place], [place], pneumonia, PE, COPD, DKA, ARF, appy, cholecystitis, CVA, Diverticulitis, Homicidal, Suicidal, threat to staff... and all critical care pts) @ -yes - Lab Data Result diagrams: 04/12/24 18:27 04/12/24 18:27 Lab Results 04/12/24 04/12/24 04/12/24 Range/Units 18:27 18:27 18:27 WBC 8.9 (3.8-10.6) k/uL RBC 4.78 (4.30-5.90) m/uL Hgb 13.3 (13.0-17.5) gm/dL Hct 43.1 (39.0-53.0) % MCV 90.1 (80.0-100.0) fL MCH 27.9 (25.0-35.0) pg MCHC 30.9 L (31.0-37.0) g/dL RDW 16.7 H (11.5-15.5) % Plt Count 138 L (150-450) k/uL MPV 8.0 Neutrophils % 68 % Lymphocytes % 22 % Monocytes % 8 % Eosinophils % 1 % Basophils % 0 % Neutrophils # 6.0 (1.3-7.7) k/uL Lymphocytes # 1.9 (1.0-4.8) k/uL Monocytes # 0.7 (0-1.0) k/uL Eosinophils # 0.1 (0-0.7) k/uL Basophils # 0.0 (0-0.2) k/uL Hypochromasia Moderate Anisocytosis Slight PT 11.2 (10.0-12.5) sec INR 1.0 (<1.2) APTT 21.9 L (22.0-30.0) sec Sodium 136 L (137-145) mmol/L Potassium 4.7 (3.5-5.1) mmol/L Chloride 105 (98-107) mmol/L Carbon Dioxide 25 (22-30) mmol/L Anion Gap 6 mmol/L BUN 25 H (9-20) mg/dL Creatinine 1.32 H (0.66-1.25) mg/dL Est GFR (CKD-EPI)AfAm 62 (>60 ml/min/1.73 sqM) Est GFR (CKD-EPI)NonAf 54 (>60 ml/min/1.73 sqM) Glucose 102 H (74-99) mg/dL Calcium 9.4 (8.4-10.2) mg/dL Total Bilirubin 0.9 (0.2-1.3) mg/dL AST 28 (17-59) U/L ALT 13 (4-49) U/L Alkaline Phosphatase 63 (38-126) U/L Total Protein 6.7 (6.3-8.2) g/dL Albumin 4.0 (3.5-5.0) g/dL Disposition Clinical Impression: Infected surgical wound Disposition: ADMITTED IP TO THIS HOSP Condition: Serious Referrals: None,Stated [Primary Care Provider] - 1-2 days Decision Time: 21:48
[2024-04-12 18:38] LABS: Anisocytosis Slight; Basophils % (A) 0 %; Eosinophils # (A) 0.1 k/uL (0-0.7); Eosinophils % (A) 1 %; HCT 43.1 % (39.0-53.0); HGB 13.3 gm/dL (13.0-17.5); Hypochromasia Moderate; Lymphocytes # (A) 1.9 k/uL (1.0-4.8); Lymphocytes % (A) 22 %; MCH 27.9 pg (25.0-35.0); MCHC 30.9 g/dL (31.0-37.0); MCV 90.1 fL (80.0-100.0); Monocytes # (A) 0.7 k/uL (0-1.0); Monocytes % (A) 8 %; Neutrophils % (A) 68 %; Platelet Count 138 k/uL (150-450); RBC 4.78 m/uL (4.30-5.90); RDW 16.7 % (11.5-15.5); WBC 8.9 k/uL (3.8-10.6)
[2024-04-12] MEDS: SODIUM CHLORIDE 0.9% 1,000 ML IV STA (18:45)
[2024-04-12] MEDS: ONDANSETRON 4 MG/2 ML VIAL IVP STA (18:45)
[2024-04-12 18:49] LABS: ALT 13 U/L (4-49); African American GFR (CKD) 62 (>60 ml/min/1.73 sqM); Anion Gap 6 mmol/L; Blood Urea Nitrogen 25 mg/dL (9-20); Calcium 9.4 mg/dL (8.4-10.2); Carbon Dioxide 25 mmol/L (22-30); Chloride 105 mmol/L (98-107); Glucose 102 mg/dL (74-99); Non-African American GFR(CKD) 54 (>60 ml/min/1.73 sqM); Sodium 136 mmol/L (137-145); Total Bilirubin 0.9 mg/dL (0.2-1.3); Total Protein 6.7 g/dL (6.3-8.2)
[2024-04-12 18:51] LABS: AST 28 U/L (17-59); Alkaline Phosphatase 63 U/L (38-126); Potassium 4.7 mmol/L (3.5-5.1)
[2024-04-12 18:54] LABS: Partial Thromboplastin Time 21.9 sec (22.0-30.0); Prothrombin Time 11.2 sec (10.0-12.5)
--- NOTE | 2024-04-12 20:47 | CT ---
EXAMINATION TYPE: CT abdomen pelvis w con DATE OF EXAM: 04/12/2024 COMPARISON: 03/03/2024 HISTORY: 73-year-old male postoperative inguinal pain, nausea and vomiting, abdominal pain n/v x 1 we ek, hernia repair x 3 days ago. TECHNIQUE: Contiguous axial scanning of the abdomen and pelvis following administration of 80 ml Isov ue 300 IV contrast. Delayed images through the kidneys and coronal/sagittal reconstructions performe d. CT DLP: 758.1 mGycm Automated exposure control for dose reduction was used. FINDINGS: Median sternotomy wires. Right ventricular pacer lead. Heart borderline enlarged without pericardial effusion. Strandy dependent atelectasis in the lungs. Small hiatal hernia. A few calcified granulomas in the liver. No abnormal gallbladder distention. Adrenal glands, and pancreas within normal limits. Calcified granulomas in the spleen. Bilateral renal cortical cysts, largest on the right exophytic from the lower pole measuring up to 6. 6 cm. Symmetric uptake and excretion of contrast from both kidneys. There is endovascular abdominal aortic stent graft placement. Infrarenal abdominal aortic three affiliated sac dilated at 5.4 cm, unchanged from 03/03/2024 and containing similar calcifications within the three affiliated s ac. No dilated small bowel, free fluid, or free air. Normal appendix. Mild stool burden. Scattered colonic diverticulosis. There is circumferential wall t hickening involving a segment of the mid sigmoid colon not centered around diverticular change. Bladder urine distended. There is abnormal fluid and mottled air seen within the right inguinal region, just beyond the deep i nguinal ring, tracking down along the right inguinal canal and into the scrotal sac. The total extent of the abnormal fluid and air measures up to 20.7 cm, refer to coronal image 42. 3.9 cm wide within the inguinal canal, coronal image 40. Overlying skin roseann with hazy inflammation of the subcutaneo us fat and corresponding skin thickening. Small right-sided hydrocele with air. Bones: Osteopenia. No osseous destructive process. IMPRESSION: 1. SKIN ROSEANN ALONG THE RIGHT INGUINAL REGION. THERE IS ASSOCIATED CELLULITIS AND UNDERLYING phlegm on with early abscess extending behind the deep inguinal ring, down the right inguinal canal, and int o the scrotal sac (approximately 20.7 cm in length). Given the presence of soft tissue air extending throughout this region, correlate for possible infection with gas-forming organism versus possibility of Benigno gangrene. 2. Short segment moderate circumferential wall thickening of the mid sigmoid colon. Consider nonspeci fic short segment colitis. 3. Abdominal aortobiiliac endovascular stent graft with stable 5.4 cm three affiliated sac.
[2024-04-12] MEDS ORDERED: VANCOMYCIN IV PER PHARMACY 1 EACH MISC MISCELLANE PRN (21:10)
[2024-04-12] MEDS ORDERED: NALOXONE 0.4 MG/ML 1 ML VIAL IV PRN (21:32)
[2024-04-12] MEDS ORDERED: ACETAMINOPHEN TAB 325 MG TAB PO PRN (21:32)
[2024-04-12] MEDS: HYDROmorphone 1 MG/ML 1 ML SYRINGE IVP STA (22:26)
[2024-04-12] MEDS: CEFEPIME 2 GM in SODIUM CHLORIDE 0.9% 100 ML IVPB STA (22:56)
[2024-04-12] MEDS: VANCOMYCIN 1,500 MG in SODIUM CHLORIDE 0.9% 500 ML 500 ML IVPB ONE (23:03)
[2024-04-13] MEDS: SODIUM CHLORIDE 0.9% 1,000 ML IV SCH (00:22)
[2024-04-13] MEDS: KETOROLAC 15 MG/ML 1 ML VIAL IVP SCH (00:52)
[2024-04-13] MEDS: HYDROmorphone 1 MG/ML 1 ML SYRINGE IVP PRN (01:54)
--- NOTE | 2024-04-13 11:10 | P.GSHP ---
History of Present Illness H&P Date: 04/13/24 Chief Complaint: Nausea, postoperative pain This is a 73-year-old male who underwent open repair of right inguinal hernia 2 days ago. Patient had plaints of nausea. The patient presents the emergency room with complaints of nausea and abdominal pain. Patient underwent CAT scan which showed some inflammatory changes at the operative field. The patient has had no drainage or bleeding at the operative site. There is some ecchymosis in the area. Patient lives in a halfway with the help of [facility]. Past Medical History Past Medical History: Coronary Artery Disease (CAD), Heart Failure, COPD, Dementia, Hyperlipidemia, Hypertension, Myocardial Infarction ([place]), Seizure Disorder, Syncope, Thyroid Disorder Additional Past Medical History / Comment(s): Ischemic cardiomyopathy, EF 20-25 %, last seizure about 2 yrs ago, hypothyroid.neuropathy "WHEN HE WORKED HE HAD A CRUSHING INJURY -COLLAPSED LUNGS C/T AND HAS CHRONIC BACK PAIN"" pt states he is schizophrenic/bipolar. TRIPLE A REPAIR AUG 2022 Last Myocardial Infarction Date:: unk History of Any Multi-Drug Resistant Organisms: None Reported Past Surgical History: AICD, Back Surgery, Coronary Bypass/CABG, Heart Catheterization, Heart Catheterization With Stent Additional Past Surgical History / Comment(s): 1995 CABG 4 vessel in [place], has had 2"HEART CATHS/had 2 STENTS after cabg sx.pt stated they were done in [facility]. "sx on tailbone, cortisone injections, devin inguinal hernia repair Past Anesthesia/Blood Transfusion Reactions: No Reported Reaction Date of Last Stent Placement:: 1995 Type of Cardiac Device: AICD Device Placement Date:: [address] [facility] Past Psychological History: Anxiety, Depression, Schizoaffective Disorder, Schizophrenia Additional Psychological History / Comment(s): . Smoking Status: Current every day smoker Past Alcohol Use History: None Reported Additional Past Alcohol Use History / Comment(s): . Past Drug Use History: None Reported Additional Drug Use History / Comment(s): Pt states he smokes marijuana on occasion. - Past Family History Mother Family Medical History: Respiratory Disorder Additional Family Medical History / Comment(s): Mother had TB Father Additional Family Medical History / Comment(s): Father was an alcoholic, was killed in a motor vehicle accident Medications and Allergies Home Medications Medication Instructions Recorded Confirmed Type Cyanocobalamin (Vitamin B-12) 1,000 mcg PO DAILY@0800 08/23/22 04/13/24 History [Vitamin B-12] Sucralfate [Carafate] 1 gm PO BID@799,199908/23/22 04/13/24 History Famotidine [Pepcid] 20 mg PO BID@0700,1700 08/31/22 04/13/24 History Acetaminophen [Tylenol 8 Hour] 650 mg PO TID@0800,1399,199909/17/23 04/13/24 History Aspirin EC [Ecotrin Low Dose] 81 mg PO DAILY@0809/17/23 04/13/24 History Atorvastatin Calcium [Lipitor] 40 mg PO HS@199909/17/23 04/13/24 History Folic Acid 0.4 mg PO DAILY@79909/17/23 04/13/24 History Levothyroxine Sodium [Synthroid] 100 mcg PO DAILY@69909/17/23 04/13/24 History Mirtazapine 30 mg PO HS@199909/17/23 04/13/24 History carvediloL [Coreg] 3.125 mg PO BID@0800,1700 09/17/23 04/13/24 History Nitroglycerin Sl Tabs [Nitrostat] 0.4 mg SUBLINGUAL Q5M PRN 90 Days 09/21/23 04/13/24 Rx #100 tab Budesonide-Formot 160-4.5 Mcg 2 puff INHALATION RT-BID@799,199910/16/23 04/13/24 History [Symbicort 160-4.5 Mcg Inhaler] Dapagliflozin Propanediol [Farxiga] 10 mg PO DAILY@79910/16/23 04/13/24 H istory Ipratropium-Albuterol Nebulize 3 ml INHALATION RT-Q4H PRN 10/16/23 04/13/24 History [Duoneb 0.5 mg-3 mg/3 ml Soln] Losartan [Cozaar] 25 mg PO DAILY@79910/16/23 04/13/24 History Ticagrelor [Brilinta] 90 mg PO BID@799,199910/16/23 04/13/24 History oxyCODONE-APAP 5-325MG [Percocet 1 tab PO Q4H PRN 10/16/23 04/13/24 History 5-325 mg] Budesonide 0.5 mg INHALATION RT-BID@0900,1800 03/03/24 04/13/24 History Escitalopram [Lexapro] 20 mg PO DAILY@0800 04/09/24 04/13/24 History HYDROcodone/APAP 5-325MG [Shidler 1 tab PO Q6HR PRN #10 tab 04/10/24 04/13/24 Rx 5-325] Ipratropium-Albuterol Nebulize 3 ml INHALATION RT-QID@08,12,16,04/13/24 04/13/24 History [Duoneb 0.5 mg-3 mg/3 ml Soln] Melatonin 5 mg PO HS@199904/13/24 04/13/24 History Sennosides/Docusate Sodium [Senna 2 tab PO HS@199904/13/24 04/13/24 History Plus 8.6-50 mg Tablet] Allergies Allergy/AdvReac Type Severity Reaction Status Date / Time morphine Allergy Anaphylaxis Verified 04/13/24 10:32 Penicillins Allergy Swelling Verified 04/13/24 10:32 on entire body Influenza Virus Vaccines AdvReac Unknown Verified 04/13/24 10:32 pneumococcal vaccine AdvReac Unknown Verified 04/13/24 10:32 Surgical - Exam Vital Signs Temp Pulse Resp BP Pulse Ox 97.4 F L 69 18 120/75 96 04/12/24 17:45 04/12/24 17:45 04/12/24 17:45 04/12/24 17:45 04/12/24 17:45 - General well developed, well nourished, no distress - Eyes PERRL - ENT normal pinna - Neck no masses - Respiratory normal expansion - Cardiovascular Rhythm: regular - Abdomen Right groin incision. There is no sign of infection. There is no drainage. There is ecchymosis of the skin from retractor. Abdomen: soft, non tender Results - Labs 04/12/24 18:27 04/12/24 18:27 Abnormal Lab Results - Last 24 Hours (Table) 04/12/24 04/12/24 04/12/24 Range/Units 18:27 18:27 18: MCHC 30.9 L (31.0-37.0) g/dL RDW 16.7 H (11.5-15.5) % Plt Count 138 L (150-450) k/uL APTT 21.9 L (22.0-30.0) sec Sodium 136 L (137-145) mmol/L BUN 25 H (9-20) mg/dL Creatinine 1.32 H (0.66-1.25) mg/dL Glucose 102 H (74-99) mg/dL C-Reactive Protein (<1.0) mg/dL 04/12/24 Range/Units 18:27 MCHC (31.0-37.0) g/dL RDW (11.5-15.5) % Plt Count (150-450) k/uL APTT (22.0-30.0) sec Sodium (137-145) mmol/L BUN (9-20) mg/dL Creatinine (0.66-1.25) mg/dL Glucose (74-99) mg/dL C-Reactive Protein 4.9 H (<1.0) mg/dL Diabetes panel 04/12/24 Range/Units 18:27 Sodium 136 L (137-145) mmol/L Potassium 4.7 (3.5-5.1) mmol/L Chloride 105 (98-107) mmol/L Carbon Dioxide 25 (22-30) mmol/L BUN 25 H (9-20) mg/dL Creatinine 1.32 H (0.66-1.25) mg/dL Glucose 102 H (74-99) mg/dL Calcium 9.4 (8.4-10.2) mg/dL AST 28 (17-59) U/L ALT 13 (4-49) U/L Alkaline Phosphatase 63 (38-126) U/L Total Protein 6.7 (6.3-8.2) g/dL Albumin 4.0 (3.5-5.0) g/dL Calcium panel 04/12/24 Range/Units 18:27 Calcium 9.4 (8.4-10.2) mg/dL Albumin 4.0 (3.5-5.0) g/dL Pituitary panel 04/12/24 Range/Units 18:27 Sodium 136 L (137-145) mmol/L Potassium 4.7 (3.5-5.1) mmol/L Chloride 105 (98-107) mmol/L Carbon Dioxide 25 (22-30) mmol/L BUN 25 H (9-20) mg/dL Creatinine 1.32 H (0.66-1.25) mg/dL Glucose 102 H (74-99) mg/dL Calcium 9.4 (8.4-10.2) mg/dL Adrenal panel 04/12/24 Range/Units 18:27 Sodium 136 L (137-145) mmol/L Potassium 4.7 (3.5-5.1) mmol/L Chloride 105 (98-107) mmol/L Carbon Dioxide 25 (22-30) mmol/L BUN 25 H (9-20) mg/dL Creatinine 1.32 H (0.66-1.25) mg/dL Glucose 102 H (74-99) mg/dL Calcium 9.4 (8.4-10.2) mg/dL Total Bilirubin 0.9 (0.2-1.3) mg/dL AST 28 (17-59) U/L ALT 13 (4-49) U/L Alkaline Phosphatase 63 (38-126) U/L Total Protein 6.7 (6.3-8.2) g/dL Albumin 4.0 (3.5-5.0) g/dL Assessment and Plan Assessment: Abdominal pain nausea. Patient will receive symptomatic treatment. She will be observed.
[2024-04-13 12:01] LABS: Anisocytosis Slight; HCT 42.6 % (39.0-53.0); HGB 12.9 gm/dL (13.0-17.5); Hypochromasia Moderate; MCHC 30.4 g/dL (31.0-37.0); MCV 92.3 fL (80.0-100.0); Mean Platelet Volume 8.8; Platelet Count 136 k/uL (150-450); RBC 4.61 m/uL (4.30-5.90); RDW 16.9 % (11.5-15.5); WBC 7.9 k/uL (3.8-10.6)
[2024-04-13] MEDS: HYDROcodone/APAP 5-325MG 1 EACH TAB PO PRN (15:51)
[2024-04-13] MEDS: ONDANSETRON 4 MG/2 ML VIAL IVP PRN (17:44)
[2024-04-13] MEDS: ATORVASTATIN 40 MG TAB PO SCH (20:53)
[2024-04-13] MEDS: SENNOSIDES-DOCUSATE SODIUM 1 EACH TAB PO SCH (20:53)
[2024-04-13] MEDS: VANCOMYCIN 1,250 MG in SODIUM CHLORIDE 0.9% 250 ML IVPB SCH (21:54)
[2024-04-13] MEDS: IPRATROPIUM-ALBUTEROL 3 ML NEB INHALATION PRN (23:55)
--- NOTE | 2024-04-14 05:13 | XR ---
EXAMINATION TYPE: XR chest 1V portable DATE OF EXAM: 04/14/2024 CLINICAL HISTORY: Shortness of breath TECHNIQUE: Single frontal view of the chest is obtained. COMPARISON: Prior chest x-ray March 04, 2024 FINDINGS: Overlying Sternal wires and mediastinal clips are redemonstrated. Persistent cardiomegaly w ith dual lead pacemaker/defibrillator. Increased interstitial prominence. No new focal airspace opaci ty or pneumothorax seen. The osseous structures are intact. IMPRESSION: Cardiomegaly with suspected interstitial edema. Correlate for CHF exacerbation.
[2024-04-14] MEDS: FUROSEMIDE 10 MG/ML 4 ML VIAL IV STA (05:47)
[2024-04-14] MEDS: FUROSEMIDE 10 MG/ML 4 ML VIAL ONE (06:27)
[2024-04-14] MEDS: LOSARTAN 25 MG TAB PO SCH (07:30)
[2024-04-14] MEDS: CYANOCOBALAMIN 500 MCG TAB PO SCH (07:30)
[2024-04-14] MEDS: DAPAGLIFLOZIN PROPANEDIOL 10 MG TABLET PO SCH (07:30)
[2024-04-14] MEDS: TICAGRELOR 90 MG TAB PO SCH (07:30)
[2024-04-14] MEDS: FOLIC ACID 1 MG TAB PO SCH (07:30)
[2024-04-14] MEDS: LEVOTHYROXINE 100 MCG TAB PO SCH (07:30)
[2024-04-14] MEDS: ASPIRIN 81 MG PO SCH (07:30)
[2024-04-14] MEDS: ESCITALOPRAM 20 MG TAB PO SCH (07:30)
[2024-04-14] MEDS: FAMOTIDINE 20 MG TAB PO SCH (07:30)
[2024-04-14] MEDS: carvediloL 3.125 MG TAB PO SCH (07:30)
[2024-04-14] MEDS: SYMBICORT 160-4.5 MCG INHALER INHALATION SCH (07:34)
[2024-04-14] MEDS: IPRATROPIUM-ALBUTEROL 3 ML NEB INHALATION SCH (07:34)
[2024-04-14 08:02] LABS: African American GFR (CKD) 86 (>60 ml/min/1.73 sqM); Anion Gap 5 mmol/L; Blood Urea Nitrogen 31 mg/dL (9-20); Calcium 8.5 mg/dL (8.4-10.2); Carbon Dioxide 19 mmol/L (22-30); Chloride 113 mmol/L (98-107); Glucose 96 mg/dL (74-99); Non-African American GFR(CKD) 74 (>60 ml/min/1.73 sqM); Sodium 137 mmol/L (137-145)
[2024-04-14 08:09] LABS: Potassium 4.4 mmol/L (3.5-5.1)
--- NOTE | 2024-04-14 08:57 | P.PN ---
Subjective Progress Note Date: 04/14/24 Patient has no complaints today. He has no significant groin pain. On exam vital signs appear stable. Abdomen is soft. Right groin shows normal postoperative changes. Patient's blood culture shows a contamination with Staph aureus. Patient shows no sign of infection. We anticipate discharge home tomorrow. Objective - Vital Signs Vital signs: Vital Signs Temp 97.6 F 04/14/24 02:09 Pulse 67 04/14/24 07:48 Resp 18 04/14/24 02:09 BP 159/85 04/14/24 02:09 Pulse Ox 92 L 04/14/24 02:09 FiO2 Intake & Output 04/13/24 04/14/24 04/14/24 18:59 06:59 18:59 Other: # Voids 1 0 - Labs CBC & Chem 7: 04/13/24 11:42 04/14/24 07:22 Labs: Abnormal Lab Results - Last 24 Hours (Table) 04/13/24 04/14/24 Range/Units 11:42 07:22 Hgb 12.9 L (13.0-17.5) gm/dL MCHC 30.4 L (31.0-37.0) g/dL RDW 16.9 H (11.5-15.5) % Plt Count 136 L (150-450) k/uL Chloride 113 H (98-107) mmol/L Carbon Dioxide 19 L (22-30) mmol/L BUN 31 H (9-20) mg/dL Microbiology - Last 24 Hours (Table) 04/12/24 22:50 Blood Culture Gram Stain - Preliminary Blood Blood Culture - Preliminary Molecular ID
[2024-04-14] MEDS ORDERED: BUDESONIDE 0.5 MG/2 ML NEBU INHALATION SCH (09:00)
[2024-04-14] MEDS: hydrOXYzine HCL 25 MG TAB PO PRN (13:02)
[2024-04-14] MEDS: VANCOMYCIN 1,250 MG in SODIUM CHLORIDE 0.9% 250 ML IVPB SCH (14:50)
[2024-04-14] MEDS ORDERED: NITROGLYCERIN SL TABS 0.4 MG TAB SUBLINGUAL PRN (17:01)
--- NOTE | 2024-04-14 17:01 | P.CONS ---
History of Present Illness - Reason for Consult Consult date: 04/14/24 - History of Present Illness History of present illness: 73-year-old male patient with past medical history significant for coronary artery disease, ischemic cardiomyopathy with EF of 25%, history of CABG in 1995, recent PCI in January 2024, history of AICD, hypertension, hyperlipidemia, COPD, seizure, dementia who recently underwent open repair of right inguinal hernia 2 days ago now presented with nausea, abdominal pain. CT abdomen showed inflammatory changes at the operative field, had no drainage or bleeding at the operative site. Patient noted to have ecchymosis, presented from [facility] with help of [facility]. Patient admitted under general surgery services, internal medicine consulted for medical management. Patient is poor historian. Vitals: Afebrile, heart rate 68, respiratory rate 17, blood pressure 128/78, saturating 97% on room air. WBC 7.9, hemoglobin 12.9, platelets 136. Sodium 137, potassium 4.4, BUN 31, creatinine 1.01. Troponin negative X2. CRP 4.9. REVIEW OF SYSTEMS: CONSTITUTIONAL: No fever, no malaise, no fatigue. HEENT: No recent visual problems or hearing problems. Denied any sore throat. CARDIOVASCULAR: No chest pain, orthopnea, PND, no palpitations, no syncope. PULMONARY: No shortness of breath, no cough, no hemoptysis. GASTROINTESTINAL: No diarrhea, no nausea, no vomiting, no abdominal pain. NEUROLOGICAL: No headaches, no weakness, no numbness. HEMATOLOGICAL: Denies any bleeding or petechiae. GENITOURINARY: Denies any burning micturition, frequency, or urgency. MUSCULOSKELETAL/RHEUMATOLOGICAL: Denies any joint pain, swelling, or any muscle pain. ENDOCRINE: Denies any polyuria or polydipsia. The rest of the 14-point review of systems is negative. PHYSICAL EXAMINATION: GENERAL: The patient is A&O x3, NAD HEENT: EOMI, Sclerae anicteric, Moist Mucous membranes Neck: Supple, Non tender, No JVD PULMONARY: Equal breath souds B/L, No wheezing, No crackles. CARDIOVASCULAR: S1, S2 present. No murmurs, rubs, or gallops. ABDOMEN: Soft, nontender, nondistended, normoactive bowel sounds. No guarding or rebound tenderness. MUSCULOSKELETAL: No edema, No cyanosis. No clubbing. Normal ROM. Intact peripheral pulses. EXTREMITIES: No cyanosis, clubbing, or pedal edema. NEUROLOGICAL: CN 2-12 grossly intact. No FND Assessment and plan: Recent inguinal hernia repair: Presented with abdominal pain, nausea. CT showed inflammatory changes at the operative site, Ecchymosis noted, no discharge or surrounding cellulitis, low suspicion of infection. Management per general surgery History of coronary artery disease status post CABG in 1995 History of recent PCI in January 2024: Status post AICD COPD Seizure disorder Ischemic cardiomyopathy with EF 25% Stable, continue home meds Acute kidney injury: Resolved Monitor BMP Monitor vital signs and labs Continue telemetry monitoring Labs and medication were reviewed. Continue same treatment. Resume home medication. Further recommendations as per clinical course of the patient Dictation was produced using [employer] dictation software. please excuse any grammatical, word or spelling errors. Past Medical History Past Medical History: Coronary Artery Disease (CAD), Heart Failure, COPD, Dementia, Hyperlipidemia, Hypertension, Myocardial Infarction (IN), Seizure Disorder, Syncope, Thyroid Disorder Additional Past Medical History / Comment(s): Ischemic cardiomyopathy, EF 20- 25%, last seizure about 2 yrs ago, hypothyroid.neuropathy "WHEN HE WORKED HE HAD A CRUSHING INJURY -COLLAPSED LUNGS C/T AND HAS CHRONIC BACK PAIN"" pt states he is schizophrenic/bipolar. TRIPLE A REPAIR AUG 2022 Last Myocardial Infarction Date:: unk History of Any Multi-Drug Resistant Organisms: None Reported Past Surgical History: AICD, Back Surgery, Coronary Bypass/CABG, Heart Catheterization, Heart Catheterization With Stent Additional Past Surgical History / Comment(s): 1995 CABG 4 vessel in [place], has had 2"HEART CATHS/had 2 STENTS after cabg sx.pt stated they were done in [facility]. "sx on tailbone, cortisone injections, devin inguinal hernia repair Past Anesthesia/Blood Transfusion Reactions: No Reported Reaction Date of Last Stent Placement:: 1995 Type of Cardiac Device: AICD Device Placement Date:: 1995 in [facility] Past Psychological History: Anxiety, Depression, Schizoaffective Disorder, Schizophrenia Additional Psychological History / Comment(s): . Smoking Status: Current every day smoker Past Alcohol Use History: None Reported Additional Past Alcohol Use History / Comment(s): . Past Drug Use History: None Reported Additional Drug Use History / Comment(s): Pt states he smokes marijuana on occasion. - Past Family History Mother Family Medical History: Respiratory Disorder Additional Family Medical History / Comment(s): Mother had TB Father Additional Family Medical History / Comment(s): Father was an alcoholic, was killed in a motor vehicle accident Medications and Allergies Home Medications Medication Instructions Recorded Confirmed Type Cyanocobalamin (Vitamin B-12) 1,000 mcg PO DAILY@0800 08/23/22 04/13/24 History [Vitamin B-12] Sucralfate [Carafate] 1 gm PO BID@08,199908/23/22 04/13/24 History Famotidine [Pepcid] 20 mg PO BID@0700,1700 08/31/22 04/13/24 History Acetaminophen [Tylenol 8 Hour] 650 mg PO TID@0800,1399,199909/17/23 04/13/24 History Aspirin EC [Ecotrin Low Dose] 81 mg PO DAILY@0800 09/17/23 04/13/24 History Atorvastatin Calcium [Lipitor] 40 mg PO HS@199909/17/23 04/13/24 History Folic Acid 0.4 mg PO DAILY@0800 09/17/23 04/13/24 History Levothyroxine Sodium [Synthroid] 100 mcg PO DAILY@69909/17/23 04/13/24 History Mirtazapine 30 mg PO HS@199909/17/23 04/13/24 History carvediloL [Coreg] 3.125 mg PO BID@0800,1700 09/17/23 04/13/24 History Nitroglycerin Sl Tabs [Nitrostat] 0.4 mg SUBLINGUAL Q5M PRN 90 Days 09/21/23 04/13/24 Rx #100 tab Budesonide-Formot 160-4.5 Mcg 2 puff INHALATION RT-BID@799,199910/16/23 04/13/24 History [Symbicort 160-4.5 Mcg Inhaler] Dapagliflozin Propanediol [Farxiga] 10 mg PO DAILY@0800 10/16/23 04/13/24 History Ipratropium-Albuterol Nebulize 3 ml INHALATION RT-Q4H PRN 10/16/23 04/13/24 History [Duoneb 0.5 mg-3 mg/3 ml Soln] Losartan [Cozaar] 25 mg PO DAILY@0800 10/16/23 04/13/24 History Ticagrelor [Brilinta] 90 mg PO BID@799,199910/16/23 04/13/24 History oxyCODONE-APAP 5-325MG [Percocet 1 tab PO Q4H PRN 10/16/23 04/13/24 History 5-325 mg] Budesonide 0.5 mg INHALATION RT-BID@0900,1800 03/03/24 04/13/24 History Escitalopram [Lexapro] 20 mg PO DAILY@00 04/09/24 04/13/24 History HYDROcodone/APAP 5-325MG [Cambria 1 tab PO Q6HR PRN #10 tab 04/10/24 04/13/24 Rx 5-325] Ipratropium-Albuterol Nebulize 3 ml INHALATION RT-QID@08,12,16,20 04/13/24 04/13/24 History [Duoneb 0.5 mg-3 mg/3 ml Soln] Melatonin 5 mg PO HS@199904/13/24 04/13/24 History Sennosides/Docusate Sodium [Senna 2 tab PO HS@199904/13/24 04/13/24 History Plus 8.6-50 mg Tablet] Allergies Allergy/AdvReac Type Severity Reaction Status Date / Time morphine Allergy Anaphylaxis Verified 04/13/24 10:32 Penicillins Allergy Swelling Verified 04/13/24 10:32 on entire body Influenza Virus Vaccines AdvReac Unknown Verified 04/13/24 10:32 pneumococcal vaccine AdvReac Unknown Verified 04/13/24 10:32 Physical Exam Vitals: Vital Signs Temp Pulse Pulse Resp BP Pulse Ox 04/14/24 16:12 68 04/14/24 16:00 68 04/14/24 14:25 97.7 F 77 17 128/78 97 04/14/24 12:00 68 04/14/24 11:51 65 04/14/24 10:42 97.1 F L 04/14/24 07:48 67 04/14/24 07:35 65 04/14/24 07:07 62 17 128/60 97 04/14/24 04:14 66 04/14/24 04:03 64 04/14/24 02:09 97.6 F 74 18 159/85 92 L 04/14/24 00:04 76 04/13/24 23:56 74 04/13/24 20:00 98.4 F 74 17 149/54 96 Intake and Output 04/14/24 04/14/24 04/14/24 06:59 14:59 22:59 Intake Total 250 Balance 250 Intake: Intake, IV Titration 250 Amount Vancomycin 1,250 mg In 250 Sodium Chloride 0.9% 250 ml @ 125 mls/hr IVPB Q16H [facility] Rx#:[id number] Other: # Voids 0 Results CBC & Chem 7: 04/13/24 11:42 04/14/24 07:22 Labs: Abnormal Lab Results - Last 24 Hours (Table) 04/14/24 Range/Units 07:22 Chloride 113 H (98-107) mmol/L Carbon Dioxide 19 L (22-30) mmol/L BUN 31 H (9-20) mg/dL Microbiology - Last 24 Hours (Table) 04/12/24 22:50 Blood Culture Gram Stain - Preliminary Blood Blood Culture - Preliminary Molecular ID
[2024-04-14] MEDS: MELATONIN 5 MG TABLET PO SCH (22:03)
[2024-04-14] MEDS: MIRTAZAPINE 15 MG TAB PO SCH (22:03)
[2024-04-14] MEDS: SUCRALFATE 1 GM TAB PO SCH (22:03)
[2024-04-15] MEDS: VANCOMYCIN TROUGH DUE 1 EACH MISC MISCELLANE ONE ×2 (05:56→22:57)
--- NOTE | 2024-04-15 08:46 | P.PN ---
Subjective Progress Note Date: 04/15/24 Patient feels slightly better. He still has some complaints of incisional pain. On exam vital signs appear stable. Abdomen is soft. Incisions clean dry intact. Patient will be observed for another 24 hours due to social issues. Objective - Vital Signs Vital signs: Vital Signs Temp 97.7 F 04/15/24 06:56 Pulse 64 04/15/24 08:28 Resp 17 04/15/24 06:56 BP 140/81 04/15/24 07:14 Pulse Ox 98 04/15/24 06:56 FiO2 Intake & Output 04/14/24 04/15/24 04/15/24 18:59 06:59 18:59 Intake Total 250 Balance 250 Intake: Intake, IV Titration 250 Amount Vancomycin 1,250 mg In 250 Sodium Chloride 0.9% 250 ml @ 125 mls/hr IVPB Q16H [facility] Rx#:[id number] Other: # Voids 0 - Labs CBC & Chem 7: 04/13/24 11:42 04/14/24 07:22
--- NOTE | 2024-04-15 15:53 | P.PN ---
Subjective Progress Note Date: 04/15/24 Interval History: 73-year-old male patient with past medical history significant for coronary artery disease, ischemic cardiomyopathy with EF of 25%, history of CABG in 1995, recent PCI in January 2024, history of AICD, hypertension, hyperlipidemia, COPD, seizure, dementia who recently underwent open repair of right inguinal hernia 2 days ago now presented with nausea, abdominal pain. CT abdomen showed inf lammatory changes at the operative field, had no drainage or bleeding at the operative site. Patient noted to have ecchymosis, presented [facility]. Patient admitted under general surgery services, internal medicine consulted for medical management. Patient is poor historian. Vitals: Afebrile, heart rate 68, respiratory rate 17, blood pressure 128/78, saturating 97% on room air. WBC 7.9, hemoglobin 12.9, platelets 136. Sodium 137, potassium 4.4, BUN 31, creatinine 1.01. Troponin negative X2. CRP 4.9. 04/15--patient was seen and examined today. On 2 L oxygen at baseline. Troponin remain negative. No issues overnight. General surgery planning to monitor overnight--low suspicion of infection. Assessment and plan: Recent inguinal hernia repair: Presented with abdominal pain, nausea. CT showed inflammatory changes at the operative site, Ecchymosis noted, no discharge or surrounding cellulitis, low suspicion of infection. Management per general surgery History of coronary artery disease status post CABG in 1995 History of recent PCI in January 2024: Status post AICD COPD--2 L at baseline Seizure disorder Ischemic cardiomyopathy with EF 25% Stable, continue home meds Acute kidney injury: Resolved Monitor BMP Monitor vital signs and labs Continue telemetry monitoring Labs and medication were reviewed. Continue same treatment. Resume home medication. Further recommendations as per clinical course of the patient PHYSICAL EXAMINATION: GENERAL: The patient is A&O x3, NAD HEENT: EOMI, Sclerae anicteric, Moist Mucous membranes Neck: Supple, Non tender, No JVD PULMONARY: Equal breath souds B/L, No wheezing, No crackles. CARDIOVASCULAR: S1, S2 present. No murmurs, rubs, or gallops. ABDOMEN: Soft, nontender, nondistended, normoactive bowel sounds. No guarding or rebound tenderness. MUSCULOSKELETAL: No edema, No cyanosis. No clubbing. Normal ROM. Intact peripheral pulses. EXTREMITIES: No cyanosis, clubbing, or pedal edema. NEUROLOGICAL: CN 2-12 grossly intact. No FND Skin: No Rash REVIEW OF SYSTEMS: CONSTITUTIONAL: No fever or chills. CARDIOVASCULAR: No chest pain, palpitations or syncope. PULMONARY: No shortness of breath, no cough, sore throat. GASTROINTESTINAL: No nausea, vomiting, diarrhea, abdominal pain. : No Dysuria, urgency, frequency. Extremities: No edema. NEUROLOGICAL: No headaches, no weakness, or numbness Dictation was produced using [employer] dictation software. please excuse any gr ammatical, word or spelling errors. Objective - Vital Signs Vital signs: Vital Signs Temp 97.7 F 04/15/24 06:56 Pulse 66 04/15/24 11:37 Resp 17 04/15/24 06:56 BP 140/81 04/15/24 07:14 Pulse Ox 94 L 04/15/24 11:30 FiO2 Intake & Output 04/14/24 04/15/24 04/15/24 18:59 06:59 18:59 Intake Total 250 250 Balance 250 250 Intake: Intake, IV Titration 250 250 Amount Vancomycin 1,250 mg In 250 250 Sodium Chloride 0.9% 250 ml @ 125 mls/hr IVPB Q16H [facility] Rx#:[id number] Other: # Voids 0 - Labs CBC & Chem 7: 04/13/24 11:42 04/14/24 07:22 Labs: Microbiology - Last 24 Hours (Table) 04/12/24 22:50 Blood Culture Gram Stain - Preliminary Blood Blood Culture - Preliminary Staphylococcus hominis Molecular ID
[2024-04-16 05:23] LABS: African American GFR (CKD) 87 (>60 ml/min/1.73 sqM); Non-African American GFR(CKD) 75 (>60 ml/min/1.73 sqM)
--- NOTE | 2024-04-16 08:41 | P.PN ---
Subjective Progress Note Date: 04/16/24 Patient denies any abdominal/groin pain. However he is short of breath. He has obvious rattles when he breathes. On exam vital signs appear stable. Abdomen soft incision is well-healed. There is no sign of infection. Patient will have pulmonary consultation for possible pulmonary congestion. Objective - Vital Signs Vital signs: Vital Signs Temp 97.8 F 04/16/24 07:17 Pulse 68 04/16/24 07:17 Resp 17 04/16/24 07:17 BP 172/97 04/16/24 07:17 Pulse Ox 97 04/16/24 07:17 FiO2 Intake & Output 04/15/24 04/16/24 04/16/24 18:59 06:59 18:59 Intake Total 250 Output Total 550 Balance 250 -550 Intake: Intake, IV Titration 250 Amount Vancomycin 1,250 mg In 250 Sodium Chloride 0.9% 250 ml @ 125 mls/hr IVPB Q16H [facility] Rx#:[id number] Output: Urine 550 Other: # Voids 4 - Labs CBC & Chem 7: 04/13/24 11:42 04/16/24 04:22 Labs: Microbiology - Last 24 Hours (Table) 04/12/24 22:50 Blood Culture Gram Stain - Preliminary Blood Blood Culture - Preliminary Staphylococcus hominis Molecular ID
--- NOTE | 2024-04-16 09:06 | XR ---
EXAMINATION TYPE: XR chest 2V DATE OF EXAM: 04/16/2024 COMPARISON: 11/16/2023 HISTORY: Shortness of breath TECHNIQUE: Frontal and lateral views of the chest are obtained. FINDINGS: There are postsurgical changes of prior CABG surgery. There is an AICD device unchanged in position. There is mild interstitial prominence which was seen previously and is stable and possibly represents mild chronic interstitial changes. There is no airspace consolidation. The heart size is normal. There is no pleural effusion or pneumothorax. The osseous structures are intact. IMPRESSION: 1. Probable mild chronic interstitial changes with no definite acute cardiopulmonary disease. 2. AICD device and CABG surgery IMPRESSION: No acute cardiopulmonary process.
--- NOTE | 2024-04-16 10:33 | P.CNPUL ---
History of Present Illness Consult date: 04/16/24 Requesting physician: Lonnie Brown Reason for consult: dyspnea, cough Chief complaint: Nausea, vomiting, diarrhea History of present illness: This is a 73-year-old male patient with a known history of coronary artery disease with previous stents and coronary artery bypass grafting, ischemic c ardiomyopathy with an ejection fraction of 20% status post AICD placement, hypothyroidism, hypertension, seizure disorder, dementia. He was here on 04/10/2024 for a open right inguinal hernia repair done by Dr. Almanza and discharged the same day. He came back to the emergency room on 04/12/2024 with complaints of nausea vomiting diarrhea. A CT scan of the abdomen revealed skin roseann along the right inguinal region with associated cellulitis and underlying phlegmon with early abscess extending behind the deep inguinal ring down the right inguinal canal and into the scrotal sac measuring approximately 20.7 cm in length. Suspected infection with gas-forming organism versus possibility of Benigno's gangrene. Evidence of an abdominal aortabiliac endovascular stent graft. He has been initiated on vancomycin. We are consulted today April 16, 2024 as the patient has developed increasing cough and congestion. Chest x-ray shows no acute pulmonary process. He is on room air. He is afebrile. Hemodynamically stable. Most recent labs revealed a white count of 7.9. Hemoglobin 12.9. Platelets 136. Sodium 137. Potassium 4.4. Bicarb 19. BUN 31. Creatinine 1.0. Vancomycin trough 16.1. Review of Systems REVIEW OF SYSTEMS: CONSTITUTIONAL: Denies any recent significant weight loss or weight gain. EYES: Denies change in vision. EARS, NOSE, MOUTH, THROAT: Denies headaches, denies sore throat. CARDIOVASCULAR: Denies chest pain, palpitations or syncopal episodes. RESPIRATORY: Denies shortness of breath, positive for cough, congestion no hemoptysis. GASTROINTESTINAL: Positive for nausea, vomiting, diarrhea GENITOURINARY: Denies hematuria, denies infections. MUSKULOSKELETAL: Denies pain, denies swelling. INTEGUMENTARY: Denies rash, denies eczema. NEUROLOGICAL: Denies recent memory loss, no recent seizure activity. PSYCHIATRIC: Denies anxiety, denies depression. HEMATOLOGIC/LYMPHATIC: Denies anemia, denies enlarged lymph nodes. Past Medical History Past Medical History: Coronary Artery Disease (CAD), Heart Failure, COPD, Dementia, Hyperlipidemia, Hypertension, Myocardial Infarction (RI), Seizure Di sorder, Syncope, Thyroid Disorder Additional Past Medical History / Comment(s): Ischemic cardiomyopathy, EF 20- 25%, last seizure about 2 yrs ago, hypothyroid.neuropathy "WHEN HE WORKED HE HAD A CRUSHING INJURY -COLLAPSED LUNGS C/T AND HAS CHRONIC BACK PAIN"" pt states he is schizophrenic/bipolar. TRIPLE A REPAIR AUG 2022 Last Myocardial Infarction Date:: unk History of Any Multi-Drug Resistant Organisms: None Reported Past Surgical History: AICD, Back Surgery, Coronary Bypass/CABG, Heart Cathete rization, Heart Catheterization With Stent Additional Past Surgical History / Comment(s): 1995 CABG 4 vessel in [place], has had 2"HEART CATHS/had 2 STENTS after cabg sx.pt stated they were done in [facility] [place]. "sx on tailbone, cortisone injections, devin inguinal hernia repair Past Anesthesia/Blood Transfusion Reactions: No Reported Reaction Date of Last Stent Placement:: 1995 Type of Cardiac Device: AICD Device Placement Date:: [address] [facility] Past Psychological History: Anxiety, Depression, Schizoaffective Disorder, Schizophrenia Additional Psychological History / Comment(s): . Smoking Status: Current every day smoker Past Alcohol Use History: None Reported Additional Past Alcohol Use History / Comment(s): . Past Drug Use History: None Reported Additional Drug Use History / Comment(s): Pt states he smokes marijuana on occasion. - Past Family History Mother Family Medical History: Respiratory Disorder Additional Family Medical History / Comment(s): Mother had TB Father Additional Family Medical History / Comment(s): Father was an alcoholic, was killed in a motor vehicle accident Medications and Allergies Home Medications Medication Instructions Recorded Confirmed Type Cyanocobalamin (Vitamin B-12) 1,000 mcg PO DAILY@0800 08/23/22 04/13/24 History [Vitamin B-12] Sucralfate [Carafate] 1 gm PO BID@0800,199908/23/22 04/13/24 History Famotidine [Pepcid] 20 mg PO BID@0700,1700 08/31/22 04/13/24 History Acetaminophen [Tylenol 8 Hour] 650 mg PO TID@0800,1400,199909/17/23 04/13/24 History Aspirin EC [Ecotrin Low Dose] 81 mg PO DAILY@79909/17/23 04/13/24 History Atorvastatin Calcium [Lipitor] 40 mg PO HS@199909/17/23 04/13/24 History Folic Acid 0.4 mg PO DAILY@79909/17/23 04/13/24 History Levothyroxine Sodium [Synthroid] 100 mcg PO DAILY@69909/17/23 04/13/24 History Mirtazapine 30 mg PO HS@199909/17/23 04/13/24 History carvediloL [Coreg] 3.125 mg PO BID@0800,1700 09/17/23 04/13/24 History Nitroglycerin Sl Tabs [Nitrostat] 0.4 mg SUBLINGUAL Q5M PRN 90 Days 09/21/23 04/13/24 Rx #100 tab Budesonide-Formot 160-4.5 Mcg 2 puff INHALATION RT-BID@799,199910/16/23 04/13/24 History [Symbicort 160-4.5 Mcg Inhaler] Dapagliflozin Propanediol [Farxiga] 10 mg PO DAILY@79910/16/23 04/13/24 History Ipratropium-Albuterol Nebulize 3 ml INHALATION RT-Q4H PRN 10/16/23 04/13/24 History [Duoneb 0.5 mg-3 mg/3 ml Soln] Losartan [Cozaar] 25 mg PO DAILY@79910/16/23 04/13/24 History Ticagrelor [Brilinta] 90 mg PO BID@799,199910/16/23 04/13/24 History oxyCODONE-APAP 5-325MG [Percocet 1 tab PO Q4H PRN 10/16/23 04/13/24 History 5-325 mg] Budesonide 0.5 mg INHALATION RT-BID@0900,179903/03/24 04/13/24 History Escitalopram [Lexapro] 20 mg PO DAILY@0804/09/24 04/13/24 History HYDROcodone/APAP 5-325MG [[place] 1 tab PO Q6HR PRN #10 tab 04/10/24 04/13/24 Rx 5-325] Ipratropium-Albuterol Nebulize 3 ml INHALATION RT-QID@08,12,16,20 04/13/24 04/13/24 History [Duoneb 0.5 mg-3 mg/3 ml Soln] Melatonin 5 mg PO HS@199904/13/24 04/13/24 History Sennosides/Docusate Sodium [Senna 2 tab PO HS@199904/13/24 04/13/24 History Plus 8.6-50 mg Tablet] Allergies Allergy/AdvReac Type Severity Reaction Status Date / Time morphine Allergy Anaphylaxis Verified 04/13/24 10:32 Penicillins Allergy Swelling Verified 04/13/24 10:32 on entire body Influenza Virus Vaccines AdvReac Unknown Verified 04/13/24 10:32 pneumococcal vaccine AdvReac Unknown Verified 04/13/24 10:32 Physical Exam Vitals: Vital Signs Temp Pulse Pulse Resp BP Pulse Ox 04/16/24 09:48 68 04/16/24 09:40 66 04/16/24 09:39 97 04/16/24 07:17 97.8 F 68 17 172/97 97 04/16/24 02:51 97.4 F L 76 18 182/75 96 04/15/24 20:00 98.1 F 63 17 143/83 97 04/15/24 19:53 74 04/15/24 19:40 70 04/15/24 16:12 61 04/15/24 16:02 74 04/15/24 14:01 97.6 F 67 18 108/62 100 04/15/24 11:37 66 04/15/24 11:30 94 L 04/15/24 11:27 60 Intake and Output 04/15/24 04/16/24 04/16/24 22:59 06:59 14:59 Output Total 550 Balance -550 Output: Urine 550 Other: # Voids 4 GENERAL EXAM: Alert, pleasant 73-year-old male on room air, comfortable in no apparent distress. HEAD: Normocephalic. EYES: Normal reaction of pupils, equal size. NOSE: Clear with pink turbinates. THROAT: No erythema or exudates. NECK: No masses, no JVD. CHEST: No chest wall deformity. LUNGS: Equal air entry with few scattered rhonchi. CVS: S1 and S2 normal with no audible murmur, regular rhythm. ABDOMEN: No hepatosplenomegaly, normal bowel sounds, no guarding or rigidity. SPINE: No scoliosis or deformity SKIN: No rashes CENTRAL NERVOUS SYSTEM: No focal deficits, tone is normal in all 4 extremities. EXTREMITIES: There is no peripheral edema. No clubbing, no cyanosis. Peripheral pulses are intact. Results - Laboratory Findings CBC and BMP: 04/13/24 11:42 04/16/24 04:22 PT/INR, D-dimer PT 11.2 sec (10.0-12.5) 04/12/24 18:27 INR 1.0 (<1.2) 04/12/24 18:27 Abnormal lab findings: Abnormal Labs 04/12/24 04/12/24 04/12/24 18:27 18:27 18:27 Hgb MCHC 30.9 L RDW 16.7 H Plt Count 138 L APTT 21.9 L Sodium 136 L Chloride Carbon Dioxide BUN 25 H Creatinine 1.32 H Glucose 102 H C-Reactive Protein 04/12/24 04/13/24 04/14/24 18:27 11:42 07:22 Hgb 12.9 L MCHC 30.4 L RDW 16.9 H Plt Count 136 L APTT Sodium Chloride 113 H Carbon Dioxide 19 L BUN 31 H Creatinine Glucose C-Reactive Protein 4.9 H - Diagnostic Findings Chest x-ray: image reviewed (No acute pulmonary process) Assessment and Plan Assessment: Abdominal pain, nausea, vomiting, diarrhea. CT scan of the abdomen and pelvis revealed associated cellulitis and underlying phlegmon with early abscess extended behind the deep inguinal ring, down the right inguinal canal and into the scrotal sac. Correlate for possible infection with gas-forming organism versus possibility of Benigno gangrene. Currently on vancomycin Recent right open inguinal hernia repair 04/10/2024 Bacteremia secondary to Staphylococcus hominis, probable contaminant Developing cough, congestion. Chest x-ray shows no acute pulmonary process Previous 45-year cigarette smoking history, currently smokes cigars Coronary artery disease with previous stent placement, previous bypass surgery Ischemic cardiomyopathy with ejection fraction of 20%, status post AICD placement Hypothyroidism Hypertension History of seizures History of dementia, resides in an adult foster care Plan: The patient was seen and evaluated CT scan of the abdomen, chest x-ray, labs and medications reviewed Stable and on room air Currently on vancomycin Continue DuoNeb inhalations Add Pulmicort and Perforomist inhalations Add incentive spirometer Add a flutter valve Add Mucinex We will continue to follow and make further recommendations based on his clinical status I have personally seen and examined the patient, performed the documentation and the assessment and plan as written. Number of minutes spent on the visit: 20.
[2024-04-16] MEDS: FUROSEMIDE 10 MG/ML 4 ML VIAL IV STA (11:20)
--- NOTE | 2024-04-16 17:11 | P.PN ---
Subjective Progress Note Date: 04/16/24 Interval History: 73-year-old male patient with past medical history significant for coronary artery disease, ischemic cardiomyopathy with EF of 25%, history of CABG in 1995, recent PCI in January 2024, history of AICD, hypertension, hyperlipidemia, COPD, seizure, dementia who recently underwent open repair of right inguinal hernia 2 days ago now presented with nausea, abdominal pain. CT abdomen showed inf lammatory changes at the operative field, had no drainage or bleeding at the operative site. Patient noted to have ecchymosis, presented from [facility] with help of [facility]. Patient admitted under general surgery services, internal medicine consulted for medical management. Patient is poor historian. Vitals: Afebrile, heart rate 68, respiratory rate 17, blood pressure 128/78, saturating 97% on room air. WBC 7.9, hemoglobin 12.9, platelets 136. Sodium 137, potassium 4.4, BUN 31, creatinine 1.01. Troponin negative X2. CRP 4.9. 04/15--patient was seen and examined today. On 2 L oxygen at baseline. Troponin remain negative. No issues overnight. General surgery planning to monitor overnight--low suspicion of infection. 04/16--patient was seen and examined today. Patient was complaining of short of breath, productive cough, appeared to fluid overloaded on exam. On 2 L oxygen at baseline. Given 1 dose of IV Lasix 40 mg. Pulmonary consulted, started on inhalers. Chest x-ray negative for acute process. Currently on vancomycin. Assessment and plan: Recent right inguinal hernia repair: Concern for phlegmon/early abscess: Presented with abdominal pain, nausea. CT showed inflammatory changes at the operative site, associated cellulitis and underlying phlegmon with early abscess extending behind the deep inguinal ring down the right inguinal canal into scrotal sac, correlate for possible infection with gas-forming organism versus possibility of Benigno's gangrene. Ecchymosis noted Blood cultureStaphylococcus hominis currently on vancomycin Management per general surgery History of coronary artery disease status post CABG in 1995 History of recent PCI in January 2024: Status post AICD Seizure disorder: Ischemic cardiomyopathy with EF 25% Stable, continue home meds COPD: 2 L oxygen at baseline Acute on chronic systolic CHF Patient complaining of shortness of breath, productive cough. Chest x-ray negative for acute process. Given IV Lasix 1 dose Continue inhalers per pulmonary Pulmonary consulted and following. Acute kidney injury: Resolved Monitor BMP Monitor vital signs and labs Continue telemetry monitoring Labs and medication were reviewed. Continue same treatment. Resume home medication. Further recommendations as per clinical course of the patient PHYSICAL EXAMINATION: GENERAL: The patient is A&O x3, NAD HEENT: EOMI, Sclerae anicteric, Moist Mucous membranes Neck: Supple, Non tender, No JVD PULMONARY: Equal breath souds B/L, No wheezing, No crackles. CARDIOVASCULAR: S1, S2 present. No murmurs, rubs, or gallops. ABDOMEN: Soft, nontender, nondistended, normoactive bowel sounds. No guarding or rebound tenderness. MUSCULOSKELETAL: No edema, No cyanosis. No clubbing. Normal ROM. Intact peripheral pulses. EXTREMITIES: No cyanosis, clubbing, or pedal edema. NEUROLOGICAL: CN 2-12 grossly intact. No FND Skin: No Rash REVIEW OF SYSTEMS: CONSTITUTIONAL: No fever or chills. CARDIOVASCULAR: No chest pain, palpitations or syncope. PULMONARY: No shortness of breath, no cough, sore throat. GASTROINTESTINAL: No nausea, vomiting, diarrhea, abdominal pain. : No Dysuria, urgency, frequency. Extremities: No edema. NEUROLOGICAL: No headaches, no weakness, or numbness Dictation was produced using [employer] dictation software. please excuse any grammatical, word or spelling errors. Objective - Vital Signs Vital signs: Vital Signs Temp 97.8 F 04/16/24 13:41 Pulse 66 04/16/24 16:48 Resp 18 04/16/24 13:41 BP 143/82 04/16/24 13:41 Pulse Ox 100 04/16/24 13:41 FiO2 Intake & Output 04/15/24 04/16/24 04/16/24 18:59 06:59 18:59 Intake Total 250 Output Total 550 Balance 250 -550 Intake: Intake, IV Titration 250 Amount Vancomycin 1,250 mg In 250 Sodium Chloride 0.9% 250 ml @ 125 mls/hr IVPB Q16H [facility] Rx#:[id number] Output: Urine 550 Other: # Voids 4 - Labs CBC & Chem 7: 04/13/24 11:42 04/16/24 04:22 Labs: Microbiology - Last 24 Hours (Table) 04/12/24 22:50 Blood Culture Gram Stain - Final Blood Blood Culture - Final Staphylococcus hominis Molecular ID
[2024-04-16] MEDS ORDERED: BUDESONIDE 0.5 MG/2 ML NEBU INHALATION SCH (20:00)
[2024-04-16] MEDS: FORMOTEROL FUMARATE 20 MCG/2 ML NEBU INHALATION SCH (20:02)
[2024-04-16] MEDS: BUDESONIDE 1 MG/2 ML NEBU INHALATION SCH (20:02)
[2024-04-16] MEDS: guaiFENesin 600 MG TABLET.ER PO SCH (20:11)
[2024-04-17 08:54] LABS: Basophils # (A) 0.03 X 10*3/uL (0.00-0.10); Basophils % (A) 0.5 %; Eosinophils # (A) 0.15 X 10*3/uL (0.04-0.35); Eosinophils % (A) 2.5 %; HCT 37.8 % (39.6-50.0); HGB 11.8 g/dL (13.0-17.0); Lymphocytes # (A) 0.83 X 10*3/uL (0.90-5.00); Lymphocytes % (A) 13.9 %; MCH 28.5 pg (27.0-32.0); MCHC 31.2 g/dL (32.0-37.0); MCV 91.3 FL (80.0-97.0); Mean Platelet Volume 11.2 FL (9.5-12.2); Monocytes % (A) 11.7 %; NRBC Per 100 WBC 0 X 10*3/uL (0.00-0.01); Neutrophils # (A) 4.25 X 10*3/uL (1.80-7.70); Neutrophils % (A) 71.1 %; Platelet Count 148 X 10*3/uL (140-440); RBC 4.14 X 10*6/uL (4.40-5.60); RDW 17.5 % (11.5-14.5); WBC 5.98 X 10*3/uL (4.50-10.00)
[2024-04-17 10:26] LABS: BUN/Creat Ratio 17.42 Ratio (12.00-20.00); Blood Urea Nitrogen 20.9 mg/dL (9.0-27.0); Calcium 8.3 mg/dL (8.7-10.3); Carbon Dioxide 22.5 mmol/L (21.6-31.8); Chloride 105 mmol/L (96-109); Glucose 73 mg/dL (70-110); Potassium 4.2 mmol/L (3.5-5.5); Sodium 139 mmol/L (135-145)
--- NOTE | 2024-04-17 13:52 | P.PN ---
Subjective Progress Note Date: 04/17/24 the patient has no complaints of pain in his groin. He feels he is more short of breath. Appears to have some mucus in his cough. Pulmonology has seen the patient. On exam vital signs appear stable. Abdomen soft. Groin incisions shows no sign of infection. The patient has some shortness of breath. He will be discharged when medically stable. Objective - Vital Signs Vital signs: Vital Signs Temp 97.6 F 04/17/24 07:20 Pulse 74 04/17/24 12:36 Resp 20 04/17/24 07:20 BP 172/78 04/17/24 07:20 Pulse Ox 99 04/17/24 09:37 FiO2 Intake & Output 04/16/24 04/17/24 04/17/24 18:59 06:59 18:59 Output Total 400 Balance -400 Output: Urine 400 Other: # Voids 3 - Labs CBC & Chem 7: 04/17/24 03:08 04/17/24 03:08 Labs: Abnormal Lab Results - Last 24 Hours (Table) 04/17/24 04/17/24 Range/Units 03:08 03:08 RBC 4.14 L (4.40-5.60) X 10*6/uL Hgb 11.8 L (13.0-17.0) g/dL Hct 37.8 L (39.6-50.0) % MCHC 31.2 L (32.0-37.0) g/dL RDW 17.5 H (11.5-14.5) % Lymphocytes # 0.83 L (0.90-5.00) X 10*3/uL Calcium 8.3 L (8.7-10.3) mg/dL Microbiology - Last 24 Hours (Table) 04/12/24 22:50 Blood Culture Gram Stain - Final Blood Blood Culture - Final Staphylococcus hominis Molecular ID
--- NOTE | 2024-04-17 15:05 | P.PN ---
Subjective Progress Note Date: 04/17/24 This is a 73-year-old male patient with a known history of coronary artery disease with previous stents and coronary artery bypass grafting, ischemic cardiomyopathy with an ejection fraction of 20% status post AICD placement, hypothyroidism, hypertension, seizure disorder, dementia. He was here on 2023 for a open right inguinal hernia repair done by Dr. Almanza and discharged the same day. He came back to the emergency room on 04/12/2024 with complaints of nausea vomiting diarrhea. A CT scan of the abdomen revealed skin roseann along the right inguinal region with associated cellulitis and underlying phlegmon with early abscess extending behind the deep inguinal ring down the right inguinal canal and into the scrotal sac measuring approximately 20.7 cm in length. Suspected infection with gas-forming organism versus possibility of Benigno's gangrene. Evidence of an abdominal aortabiliac endovascular stent graft. He has been initiated on vancomycin. We are consulted today April 16, 2024 as the patient has developed increasing cough and congestion. Chest x- ray shows no acute pulmonary process. He is on room air. He is afebrile. Hemodynamically stable. Most recent labs revealed a white count of 7.9. Hemoglobin 12.9. Platelets 136. Sodium 137. Potassium 4.4. Bicarb 19. BUN 31. Creatinine 1.0. Vancomycin trough 16.1. On today's evaluation of 04/17/2024, the patient is being seen for a follow-up. Patient continues to have cough and congestion. Unable to bring up much of sputum. No significant nausea vomiting or abdominal pain. Discussed the case with general surgery. The patient has no real complaints of groin pain. According to the general surgeon, there is no indication for any groin infection at this point in time. The white cell count of 5.9 with a hemoglobin 9.8 and a platelet count of 148. BUN is at 20 with a creatinine of 1.2. Serum bicarb is at 22 and a sodium of is at 139. Remains on bronchodilators with DuoNeb updrafts, remains on Perforomist and Pulmicort nebulized treatments twice a day, remains on IV vancomycin and the rest of the home medications are below resumed. The cultures from the blood is consistent with Staph hominis. A chest x-ray that was done yesterday on 04/16/2024 showed AICD with previous CABG and thoracotomy changes. The patient also has some mild interstitial changes in the lungs bilaterally. No other acute abnormalities have been noted. The patient currently is on liters of oxygen by nasal cannula with a pulse ox of 95%. Objective - Vital Signs Vital signs: Vital Signs Temp 97.6 F 04/17/24 07:20 Pulse 64 04/17/24 09:52 Resp 20 04/17/24 07:20 BP 172/78 04/17/24 07:20 Pulse Ox 99 04/17/24 09:37 FiO2 Intake & Output 04/16/24 04/17/24 04/17/24 18:59 06:59 18:59 Output Total 400 Balance -400 Output: Urine 400 Other: # Voids 3 - Exam GENERAL EXAM: Alert, pleasant 73-year-old male on room air, comfortable in no apparent distress. HEAD: Normocephalic. EYES: Normal reaction of pupils, equal size. NOSE: Clear with pink turbinates. THROAT: No erythema or exudates. NECK: No masses, no JVD. CHEST: No chest wall deformity. LUNGS: Equal air entry with few scattered rhonchi. CVS: S1 and S2 normal with no audible murmur, regular rhythm. ABDOMEN: No hepatosplenomegaly, normal bowel sounds, no guarding or rigidity. SPINE: No scoliosis or deformity SKIN: No rashes CENTRAL NERVOUS SYSTEM: No focal deficits, tone is normal in all 4 extremities. EXTREMITIES: There is no peripheral edema. No clubbing, no cyanosis. Peripheral pulses are intact. - Labs CBC & Chem 7: 04/17/24 03:08 04/17/24 03:08 Labs: Abnormal Lab Results - Last 24 Hours (Table) 04/17/24 04/17/24 Range/Units 03:08 03:08 RBC 4.14 L (4.40-5.60) X 10*6/uL Hgb 11.8 L (13.0-17.0) g/dL Hct 37.8 L (39.6-50.0) % MCHC 31.2 L (32.0-37.0) g/dL RDW 17.5 H (11.5-14.5) % Lymphocytes # 0.83 L (0.90-5.00) X 10*3/uL Calcium 8.3 L (8.7-10.3) mg/dL Microbiology - Last 24 Hours (Table) 04/12/24 22:50 Blood Culture Gram Stain - Final Blood Blood Culture - Final Staphylococcus hominis Molecular ID Assessment and Plan Plan: Abdominal pain, nausea, vomiting, diarrhea. CT scan of the abdomen and pelvis revealed associated cellulitis and underlying phlegmon with early abscess extended behind the deep inguinal ring, down the right inguinal canal and into the scrotal sac. Discussed the findings with general surgery and based on his opinion, those are postsurgical findings and there is no clear indication for any groin or abdominal wall infection at this point in time Staff hominis septicemia currently on vancomycin COPD with ongoing cough and congestion. Rule out a component of aspiration. Chest x-ray shows no acute abnormalities and the patient is only on 3 L of oxygen by nasal cannula Recent right open inguinal hernia repair 04/10/2024 Bacteremia secondary to Staphylococcus hominis Developing cough, congestion. Chest x-ray shows no acute pulmonary process Previous 45-year cigarette smoking history, currently smokes cigars Coronary artery disease with previous stent placement, previous bypass surgery Ischemic cardiomyopathy with ejection fraction of 20%, status post AICD placement Hypothyroidism Hypertension History of seizures History of dementia, resides in an adult foster care Plan: The patient is currently on feeds of oxygen by nasal cannula. Will repeat a chest x-ray in the morning. Will monitor oxygenation status and the patient will provide incentive spirometer. Currently on vancomycin Continue DuoNeb inhalations Pulmicort and Perforomist inhalations incentive spirometer Add a flutter valve Add Mucinex We will continue to follow and make further recommendations based on his clinical status
--- NOTE | 2024-04-17 15:35 | P.PN ---
Subjective Progress Note Date: 04/17/24 Interval History: 73-year-old male patient with past medical history significant for coronary artery disease, ischemic cardiomyopathy with EF of 25%, history of CABG in 1995, recent PCI in January 2024, history of AICD, hypertension, hyperlipidemia, COPD, seizure, dementia who recently underwent open repair of right inguinal hernia 2 days ago now presented with nausea, abdominal pain. CT abdomen showed inf lammatory changes at the operative field, had no drainage or bleeding at the operative site. Patient noted to have ecchymosis, presented from [facility] with help of [facility]. Patient admitted under general surgery services, internal medicine consulted for medical management. Patient is poor historian. Vitals: Afebrile, heart rate 68, respiratory rate 17, blood pressure 128/78, saturating 97% on room air. WBC 7.9, hemoglobin 12.9, platelets 136. Sodium 137, potassium 4.4, BUN 31, creatinine 1.01. Troponin negative X2. CRP 4.9. 04/15--patient was seen and examined today. On 2 L oxygen at baseline. Troponin remain negative. No issues overnight. General surgery planning to monitor overnight--low suspicion of infection. 04/16--patient was seen and examined today. Patient was complaining of short of breath, productive cough, appeared to fluid overloaded on exam. On 2 L oxygen at baseline. Given 1 dose of IV Lasix 40 mg. Pulmonary consulted, started on inhalers. Chest x-ray negative for acute process. Currently on vancomycin. 04/17--- patient was seen and examined today, complains of shortness breath, productive cough, had worse anxiety in the morning, currently better. Patient remains on inhalers. Will give another dose of IV Lasix today. Consulted ID. Repeat blood cultures ordered, previous blood culture grew Staphylococcus hominis. Assessment and plan: Recent right inguinal hernia repair: Concern for phlegmon/early abscess: Blood culture positive for Staphylococcus hominis Presented with abdominal pain, nausea. CT showed inflammatory changes at the operative site, associated cellulitis and underlying phlegmon with early abscess extending behind the deep inguinal ring down the right inguinal canal into scrotal sac, correlate for possible infection with gas-forming organism versus possibility of Benigno's gangrene. Ecchymosis noted Blood cultureStaphylococcus hominis--repeat blood cultures currently on vancomycin Consulted ID. Management per general surgery History of coronary artery disease status post CABG in 1995 History of recent PCI in January 2024: Status post AICD Seizure disorder: Ischemic cardiomyopathy with EF 25% Stable, continue home meds COPD: 2 L oxygen at baseline Acute on chronic systolic CHF Patient complaining of shortness of breath, productive cough. Chest x-ray negative for acute process. Given IV Lasix second dose today, reassess tomorrow. Continue inhalers per pulmonary Pulmonary consulted and following. Acute kidney injury: Resolved Monitor BMP Monitor vital signs and labs Continue telemetry monitoring Labs and medication were reviewed. Continue same treatment. Resume home medication. Further recommendations as per clinical course of the patient PHYSICAL EXAMINATION: GENERAL: The patient is A&O x3, NAD HEENT: EOMI, Sclerae anicteric, Moist Mucous membranes Neck: Supple, Non tender, No JVD PULMONARY: Equal breath souds B/L, No wheezing, No crackles. CARDIOVASCULAR: S1, S2 present. No murmurs, rubs, or gallops. ABDOMEN: Soft, nontender, nondistended, normoactive bowel sounds. No guarding or rebound tenderness. MUSCULOSKELETAL: No edema, No cyanosis. No clubbing. Normal ROM. Intact peripheral pulses. EXTREMITIES: No cyanosis, clubbing, or pedal edema. NEUROLOGICAL: CN 2-12 grossly intact. No FND Skin: No Rash REVIEW OF SYSTEMS: CONSTITUTIONAL: No fever or chills. CARDIOVASCULAR: No chest pain, palpitations or syncope. PULMONARY: No shortness of breath, no cough, sore throat. GASTROINTESTINAL: No nausea, vomiting, diarrhea, abdominal pain. : No Dysuria, urgency, frequency. Extremities: No edema. NEUROLOGICAL: No headaches, no weakness, or numbness Dictation was produced using [employer] dictation software. please excuse any grammatical, word or spelling errors. Objective - Vital Signs Vital signs: Vital Signs Temp 98.1 F 04/17/24 13:44 Pulse 70 04/17/24 13:44 Resp 18 04/17/24 13:44 BP 117/57 04/17/24 13:44 Pulse Ox 95 04/17/24 13:44 FiO2 Intake & Output 04/16/24 04/17/24 04/17/24 18:59 06:59 18:59 Output Total 400 Balance -400 Output: Urine 400 Other: # Voids 3 - Labs CBC & Chem 7: 04/17/24 03:08 04/17/24 03:08 Labs: Abnormal Lab Results - Last 24 Hours (Table) 04/17/24 04/17/24 Range/Units 03:08 03:08 RBC 4.14 L (4.40-5.60) X 10*6/uL Hgb 11.8 L (13.0-17.0) g/dL Hct 37.8 L (39.6-50.0) % MCHC 31.2 L (32.0-37.0) g/dL RDW 17.5 H (11.5-14.5) % Lymphocytes # 0.83 L (0.90-5.00) X 10*3/uL Calcium 8.3 L (8.7-10.3) mg/dL Microbiology - Last 24 Hours (Table) 04/12/24 22:50 Blood Culture Gram Stain - Final Blood Blood Culture - Final Staphylococcus hominis Molecular ID
[2024-04-17] MEDS: FUROSEMIDE 10 MG/ML 2 ML VIAL IV STA (16:11)
[2024-04-18 05:57] LABS: Anisocytosis Slight; Basophils % (A) 0 %; Eosinophils # (A) 0.1 k/uL (0-0.7); Eosinophils % (A) 2 %; HCT 39.8 % (39.0-53.0); HGB 12.9 gm/dL (13.0-17.5); Lymphocytes # (A) 1.3 k/uL (1.0-4.8); Lymphocytes % (A) 21 %; MCH 28.9 pg (25.0-35.0); MCHC 32.4 g/dL (31.0-37.0); MCV 89.3 fL (80.0-100.0); Mean Platelet Volume 8.6; Monocytes # (A) 0.6 k/uL (0-1.0); Monocytes % (A) 9 %; Neutrophils # (A) 3.8 k/uL (1.3-7.7); Neutrophils % (A) 64 %; Platelet Count 163 k/uL (150-450); RBC 4.46 m/uL (4.30-5.90); RDW 17.2 % (11.5-15.5)
[2024-04-18 06:19] LABS: African American GFR (CKD) 69 (>60 ml/min/1.73 sqM); Anion Gap 8 mmol/L; Blood Urea Nitrogen 32 mg/dL (9-20); Carbon Dioxide 20 mmol/L (22-30); Chloride 110 mmol/L (98-107); Glucose 79 mg/dL (74-99); Non-African American GFR(CKD) 60 (>60 ml/min/1.73 sqM); Potassium 4.2 mmol/L (3.5-5.1); Sodium 138 mmol/L (137-145)
--- NOTE | 2024-04-18 07:45 | P.CONS ---
History of Present Illness - Reason for Consult Consult date: 04/17/24 Bacteremia Requesting physician: Garth Melgar - Chief Complaint Nausea and right groin pain x few days - History of Present Illness Patient is a 73-year-old male with a past medical history significant for hypertension hyperlipidemia [place] seizure disorder COPD heart failure coronary artery disease in this patient apparently recently did have a right groin hernia repair patient presenting to [facility] ER about 5 days ago on 04/12/2024 concerning for nausea vomiting and groin pain patient also complaining of fever chills and night sweats describing the pain to the right groin to be sharp moderate intensity without any radiation patient on presentation to the hospital was afebrile and no fever have been recorded subsequently patient was not tachyc ardic or hypotensive patient did have a CT abdominal pelvis which did show skin roseann along the right inguinal region there is associated cellulitis and underlying phlegmon with early abscess extending behind the deep inguinal ring down the right inguinal canal into the scrotal sac soft tissue air correlate for possible infection with gas-forming organism patient has been treated with vancomycin he did have blood cultures drawn which came back positive with Staphylococcus hominis oxacillin sensitive performed at this infectious disease consultation patient is still complaining of pain to the right groin area moderate intensity worse with touching the area however denies having any drainage has been complaining of some shortness of breath and cough but not bring up any sputum patient did have a white count of 5.98 creatinine is 1.2 electrolytes are normal vancomycin trough was 16.1 Review of Systems Positive point and negatives has been mentioned in the HPI, complete review of systems was performed and all other systems are negative Past Medical History Past Medical History: Coronary Artery Disease (CAD), Heart Failure, COPD, Dementia, Hyperlipidemia, Hypertension, Myocardial Infarction ([place]), Seizure Disorder, Syncope, Thyroid Disorder Additional Past Medical History / Comment(s): Ischemic cardiomyopathy, EF 20- 25%, last seizure about 2 yrs ago, hypothyroid.neuropathy "WHEN HE WORKED HE HAD A CRUSHING INJURY -COLLAPSED LUNGS C/T AND HAS CHRONIC BACK PAIN"" pt states he is schizophrenic/bipolar. TRIPLE A REPAIR AUG 2022 Last Myocardial Infarction Date:: unk History of Any Multi-Drug Resistant Organisms: None Reported Past Surgical History: AICD, Back Surgery, Coronary Bypass/CABG, Heart Catheterization, Heart Catheterization With Stent Additional Past Surgical History / Comment(s): 1995 CABG 4 vessel in [place], has had 2"HEART CATHS/had 2 STENTS after cabg sx.pt stated they were done in [facility]. "sx on tailbone, cortisone injections, devin inguinal hernia repair Past Anesthesia/Blood Transfusion Reactions: No Reported Reaction Date of Last Stent Placement:: 1995 Type of Cardiac Device: AICD Device Placement Date:: 1995 in [facility] Past Psychological History: Anxiety, Depression, Schizoaffective Disorder, Schizophrenia Additional Psychological History / Comment(s): . Smoking Status: Current every day smoker Past Alcohol Use History: None Reported Additional Past Alcohol Use History / Comment(s): . Past Drug Use History: None Reported Additional Drug Use History / Comment(s): Pt states he smokes marijuana on occasion. - Past Family History Mother Family Medical History: Respiratory Disorder Additional Family Medical History / Comment(s): Mother had TB Father Additional Family Medical History / Comment(s): Father was an alcoholic, was killed in a motor vehicle accident Medications and Allergies Home Medications Medication Instructions Recorded Confirmed Type Cyanocobalamin (Vitamin B-12) 1,000 mcg PO DAILY@0800 08/23/22 04/13/24 History [Vitamin B-12] Sucralfate [Carafate] 1 gm PO BID@0800,199908/23/22 04/13/24 History Famotidine [Pepcid] 20 mg PO BID@0700,1700 08/31/22 04/13/24 History Acetaminophen [Tylenol 8 Hour] 650 mg PO TID@0800,1400,199909/17/23 04/13/24 History Aspirin EC [Ecotrin Low Dose] 81 mg PO DAILY@0800 09/17/23 04/13/24 History Atorvastatin Calcium [Lipitor] 40 mg PO HS@199909/17/23 04/13/24 History Folic Acid 0.4 mg PO DAILY@0800 09/17/23 04/13/24 History Levothyroxine Sodium [Synthroid] 100 mcg PO DAILY@0700 09/17/23 04/13/24 History Mirtazapine 30 mg PO HS@199909/17/23 04/13/24 History carvediloL [Coreg] 3.125 mg PO BID@0800,1700 09/17/23 04/13/24 History Nitroglycerin Sl Tabs [Nitrostat] 0.4 mg SUBLINGUAL Q5M PRN 90 Days 09/21/23 Rx #100 tab Budesonide-Formot 160-4.5 Mcg 2 puff INHALATION RT-BID@799,199910/16/23 0 04/13/24 History [Symbicort 160-4.5 Mcg Inhaler] Dapagliflozin Propanediol [Farxiga] 10 mg PO DAILY@79910/16/23 04/13/24 History Ipratropium-Albuterol Nebulize 3 ml INHALATION RT-Q4H PRN 10/16/23 04/13/24 History [Duoneb 0.5 mg-3 mg/3 ml Soln] Losartan [Cozaar] 25 mg PO DAILY@79910/16/23 04/13/24 History Ticagrelor [Brilinta] 90 mg PO BID@799,199910/16/23 04/13/24 History oxyCODONE-APAP 5-325MG [Percocet 1 tab PO Q4H PRN 10/16/23 04/13/24 History 5-325 mg] Budesonide 0.5 mg INHALATION RT-BID@0900,179903/03/24 04/13/24 History Escitalopram [Lexapro] 20 mg PO DAILY@00 04/09/24 04/13/24 History HYDROcodone/APAP 5-325MG [Holden 1 tab PO Q6HR PRN #10 tab 04/10/24 04/13/24 Rx 5-325] Ipratropium-Albuterol Nebulize 3 ml INHALATION RT-QID@08,12,16,20 04/13/24 04/13/24 History [Duoneb 0.5 mg-3 mg/3 ml Soln] Melatonin 5 mg PO HS@199904/13/24 04/13/24 History Sennosides/Docusate Sodium [Senna 2 tab PO HS@199904/13/24 04/13/24 History Plus 8.6-50 mg Tablet] Allergies Allergy/AdvReac Type Severity Reaction Status Date / Time morphine Allergy Anaphylaxis Verified 04/13/24 10:32 Penicillins Allergy Swelling Verified 04/13/24 10:32 on entire body Influenza Virus Vaccines AdvReac Unknown Verified 04/13/24 10:32 pneumococcal vaccine AdvReac Unknown Verified 04/13/24 10:32 Physical Exam Vitals: Vital Signs Temp Pulse Pulse Resp BP Pulse Ox 04/17/24 13:44 98.1 F 70 18 117/57 95 04/17/24 12:36 74 04/17/24 12:28 73 04/17/24 09:52 64 04/17/24 09:43 85 04/17/24 09:42 85 04/17/24 09:37 99 04/17/24 09:34 83 04/17/24 07:20 97.6 F 73 20 172/78 97 04/17/24 02:00 98.5 F 75 166/73 97 04/16/24 20:27 55 L 04/16/24 20:17 60 04/16/24 20:03 53 L 04/16/24 20:00 97.7 F 64 139/70 99 04/16/24 16:48 66 04/16/24 16:40 65 Intake and Output 04/17/24 04/17/24 04/17/24 06:59 14:59 22:59 Output Total 400 Balance -400 Output: Urine 400 GENERAL DESCRIPTION: Elderly male lying in bed, no distress. No tachypnea or accessory muscle of respiration use. HEENT: Shows Pallor , no scleral icterus. Oral mucous membrane is dry. No pharyngeal erythema or thrush NECK: Trachea central, no thyromegaly. LUNGS: Unlabored breathing. Coarse breath sounds bilaterally HEART: S1, S2, regular rate and rhythm. No loud murmur ABDOMEN: Soft, right groin area did have roseann intact it is associated swelling and tenderness to touch but no foul-smelling drainage EXTREMITIES: No edema of feet. SKIN: No rash, no masses palpable. NEUROLOGICAL: The patient is awake, alert, oriented x3, mood and affect normal. Results CBC & Chem 7: 04/18/24 04:16 04/18/24 04:16 Labs: Abnormal Lab Results - Last 24 Hours (Table) 04/17/24 04/17/24 Range/Units 03:08 03:08 RBC 4.14 L (4.40-5.60) X 10*6/uL Hgb 11.8 L (13.0-17.0) g/dL Hct 37.8 L (39.6-50.0) % MCHC 31.2 L (32.0-37.0) g/dL RDW 17.5 H (11.5-14.5) % Lymphocytes # 0.83 L (0.90-5.00) X 10*3/uL Calcium 8.3 L (8.7-10.3) mg/dL Microbiology - Last 24 Hours (Table) 04/12/24 22:50 Blood Culture Gram Stain - Final Blood Blood Culture - Final Staphylococcus hominis Molecular ID Assessment and Plan (1) Bacteremia Current Visit: Yes Status: Acute Code(s): R78.81 - BACTEREMIA SNOMED Code(s): 6026227 (2) Penicillin allergy Current Visit: Yes Status: Acute Code(s): Z88.0 - ALLERGY STATUS TO PENICILLIN SNOMED Code(s): 13561744 Plan: 1patient with a Staphylococcus hominis bacteremia which is a skin pathogen could be related to the right groin cellulitis in this patient who did have abnormality seen on the CT abdominal pelvis that was done on admission with concern for possible gas-forming infection versus skin contamination 2-penicillin allergy therapy limit the number of antibiotics safe to use 3-blood culture has been to document clearance of his bacteremia 4-we will check inflammatory markers 5-discontinue vancomycin start the patient cefazolin as a pathogen was oxacillin sensitive and see clinical response We will follow on clinical condition and cultures to further adjust medication if needed Thank you for this consultation we will follow the patient along with you Dictation was produced using [employer] dictation software. please excuse any grammatical, word or spelling errors. Time with Patient: Greater than 30
[2024-04-18 09:04] VITALS: BP 154/61; TEMP 98
--- NOTE | 2024-04-18 11:17 | P.DS ---
Providers Date of admission: 04/12/24 21:33 Expected date of discharge: 04/18/24 Attending physician: Lonnie Topete Consults: 04/13/24 17:09 Consult Physician Routine Consulting Provider: Juaquin Schuster Consult Reason/Comments: Medical Management Do you want consulting provider notified?: Yes 04/16/24 08:39 Consult Physician Routine Consulting Provider: Arben Juarez Consult Reason/Comments: Pulmonary congestion Do you want consulting provider notified?: Yes 04/17/24 15:33 Consult Physician Routine Consulting Provider: Opal Dutton Consult Reason/Comments: s/p right inguinal hernia repair, Blood culture staph hominis Do you want consulting provider notified?: Yes Primary care physician: Stated None Hospital Course: Discharge diagnosis 1. Abdominal pain resolved 2. Recent open repair of right inguinal hernia 3. Inflammatory changes in the right groin Noted on CT. No evidence of infection. WBC has been normal. Hospital course This is a 73-year-old male who is status post recent open repair of right inguinal hernia. He presented to the hospital with abdominal pain and nausea. He had a computed tomography scan that showed some inflammatory changes at the operative field. Patient has had no drainage from the site. Pain has resolved. He is tolerating diet. Afebrile. White count remained normal. Patient seen and examined by Dr. topete. Back efrem felt that the patient did not have any evidence of infection. These findings were likely postoperative changes. Patient is white count has been normal. He is afebrile. Dr. Topete felt that the positive blood culture was likely contaminant. Dr. Topete has cleared patient for discharge. patient is stable for discharge. Please refer to chart for any further details. Physician Wheelage Clerk note has been reviewed by physician. Signing provider agrees with the documented findings, assessment, and plan of care. Patient Condition at Discharge: Stable Plan - Discharge Summary Discharge Rx Participant: No New Discharge Prescriptions: Continue Sucralfate [Carafate] 1 gm PO BID@0800,2000 Cyanocobalamin (Vitamin B-12) [Vitamin B-12] 1,000 mcg PO DAILY@0800 Acetaminophen [Tylenol 8 Hour] 650 mg PO TID@0800,1400,2000 Aspirin EC [Ecotrin Low Dose] 81 mg PO DAILY@0800 Atorvastatin Calcium [Lipitor] 40 mg PO HS@2000 oxyCODONE-APAP 5-325MG [Percocet 5-325 mg] 1 tab PO Q4H PRN PRN Reason: Pain Ticagrelor [Brilinta] 90 mg PO BID@0800,1999 Budesonide-Formot 160-4.5 Mcg [Symbicort 160-4.5 Mcg Inhaler] 2 puff INHALATION RT-BID@0800,1999 Budesonide 0.5 mg INHALATION RT-BID@0900,1800 HYDROcodone/APAP 5-325MG [Fayette 5-325] 1 tab PO Q6HR PRN #10 tab PRN Reason: Pain Ipratropium-Albuterol Nebulize [Duoneb 0.5 mg-3 mg/3 ml Soln] 3 ml INHALATION RT-QID@08,12,16,20 Famotidine [Pepcid] 20 mg PO BID@0700,1700 carvediloL [Coreg] 3.125 mg PO BID@0800,1700 Folic Acid 0.4 mg PO DAILY@0800 Levothyroxine Sodium [Synthroid] 100 mcg PO DAILY@0700 Mirtazapine 30 mg PO HS@1999 Nitroglycerin Sl Tabs [Nitrostat] 0.4 mg SUBLINGUAL Q5M PRN 90 Days #100 tab PRN Reason: Chest Pain Losartan [Cozaar] 25 mg PO DAILY@0800 Ipratropium-Albuterol Nebulize [Duoneb 0.5 mg-3 mg/3 ml Soln] 3 ml INHALATION RT-Q4H PRN PRN Reason: WHEEZING/SHORTNESS OF BREATH Dapagliflozin Propanediol [Farxiga] 10 mg PO DAILY@0800 Escitalopram [Lexapro] 20 mg PO DAILY@0800 Sennosides/Docusate Sodium [Senna Plus 8.6-50 mg Tablet] 2 tab PO HS@1999 Melatonin 5 mg PO HS@1999 Discharge Medication List Cyanocobalamin (Vitamin B-12) [Vitamin B-12] 1,000 mcg PO DAILY@0800 08/23/22 [History] Sucralfate [Carafate] 1 gm PO BID@0800,199908/23/22 [History] Famotidine [Pepcid] 20 mg PO BID@0700,1700 08/31/22 [History] Acetaminophen [Tylenol 8 Hour] 650 mg PO TID@0800,1400,199909/17/23 [History] Aspirin EC [Ecotrin Low Dose] 81 mg PO DAILY@0809/17/23 [History] Atorvastatin Calcium [Lipitor] 40 mg PO HS@199909/17/23 [History] Folic Acid 0.4 mg PO DAILY@0800 09/17/23 [History] Levothyroxine Sodium [Synthroid] 100 mcg PO DAILY@0709/17/23 [History] Mirtazapine 30 mg PO HS@199909/17/23 [History] carvediloL [Coreg] 3.125 mg PO BID@0800,1700 09/17/23 [History] Nitroglycerin Sl Tabs [Nitrostat] 0.4 mg SUBLINGUAL Q5M PRN 90 Days #100 tab 09/21/23 [Rx] Budesonide-Formot 160-4.5 Mcg [Symbicort 160-4.5 Mcg Inhaler] 2 puff INHALATION RT-BID@799,199910/16/23 [History] Dapagliflozin Propanediol [Farxiga] 10 mg PO DAILY@79910/16/23 [History] Ipratropium-Albuterol Nebulize [Duoneb 0.5 mg-3 mg/3 ml Soln] 3 ml INHALATION RT-Q4H PRN 10/16/23 [History] Losartan [Cozaar] 25 mg PO DAILY@0810/16/23 [History] Ticagrelor [Brilinta] 90 mg PO BID@08,199910/16/23 [History] oxyCODONE-APAP 5-325MG [Percocet 5-325 mg] 1 tab PO Q4H PRN 10/16/23 [History] Budesonide 0.5 mg INHALATION RT-BID@0900,1800 03/03/24 [History] Escitalopram [Lexapro] 20 mg PO DAILY@0800 04/09/24 [History] HYDROcodone/APAP 5-325MG [Fayette 5-325] 1 tab PO Q6HR PRN #10 tab 04/10/24 [Rx] Ipratropium-Albuterol Nebulize [Duoneb 0.5 mg-3 mg/3 ml Soln] 3 ml INHALATION RT-QID@08,12,16,20 04/13/24 [History] Melatonin 5 mg PO HS@199904/13/24 [History] Sennosides/Docusate Sodium [Senna Plus 8.6-50 mg Tablet] 2 tab PO HS@199904/13/24 [History] Follow up Appointment(s)/Referral(s): None,Stated [Primary Care Provider] - 1-2 days Lonnie Topete MD [STAFF PHYSICIAN] - 1 Week Activity/Diet/Wound Care/Special Instructions: Shower daily Discharge Disposition: HOME SELF-CARE
[2024-04-18 12:05] VITALS: RESP 18
[2024-04-18 12:13] VITALS: PULSE 80
[2024-04-18] MEDS ORDERED: VANCOMYCIN TROUGH DUE 1 EACH MISC MISCELLANE ONE (13:00)
--- NOTE | 2024-04-18 22:36 | P.PN ---
Subjective Progress Note Date: 04/18/24 This is a 73-year-old male patient with a known history of coronary artery disease with previous stents and coronary artery bypass grafting, ischemic cardiomyopathy with an ejection fraction of 20% status post AICD placement, hypothyroidism, hypertension, seizure disorder, dementia. He was here on 2023 for a open right inguinal hernia repair done by Dr. Almanza and discharged the same day. He came back to the emergency room on 04/12/2024 with complaints of nausea vomiting diarrhea. A CT scan of the abdomen revealed skin roseann along the right inguinal region with associated cellulitis and underlying phlegmon with early abscess extending behind the deep inguinal ring down the right inguinal canal and into the scrotal sac measuring approximately 20.7 cm in length. Suspected infection with gas-forming organism versus possibility of Benigno's gangrene. Evidence of an abdominal aortabiliac endovascular stent graft. He has been initiated on vancomycin. We are consulted today April 16, 2024 as the patient has developed increasing cough and congestion. Chest x- ray shows no acute pulmonary process. He is on room air. He is afebrile. Hemodynamically stable. Most recent labs revealed a white count of 7.9. Hemoglobin 12.9. Platelets 136. Sodium 137. Potassium 4.4. Bicarb 19. BUN 31. Creatinine 1.0. Vancomycin trough 16.1. On today's evaluation of 04/17/2024, the patient is being seen for a follow-up. Patient continues to have cough and congestion. Unable to bring up much of sputum. No significant nausea vomiting or abdominal pain. Discussed the case with general surgery. The patient has no real complaints of groin pain. According to the general surgeon, there is no indication for any groin infection at this point in time. The white cell count of 5.9 with a hemoglobin 9.8 and a platelet count of 148. BUN is at 20 with a creatinine of 1.2. Serum bicarb is at 22 and a sodium of is at 139. Remains on bronchodilators with DuoNeb updrafts, remains on Perforomist and Pulmicort nebulized treatments twice a day, remains on IV vancomycin and the rest of the home medications are below resumed. The cultures from the blood is consistent with Staph hominis. A chest x-ray that was done yesterday on 04/16/2024 showed AICD with previous CABG and thoracotomy changes. The patient also has some mild interstitial changes in the lungs bilaterally. No other acute abnormalities have been noted. The patient currently is on liters of oxygen by nasal cannula with a pulse ox of 95%. Today's evaluation of 04/18/2024, patient has no new complaints. No respiratory difficulties. Patient is postop from an open repair of a right inguinal hernia. He was also seen by the pulmonary services regarding his COPD along with some ongoing cough and congestion. He remains on oxygen at 3 L/min nasal cannula. No significant desaturation. White cell count is 6 with a hemoglobin 12.9 and platelet count of 163. BUN 37 creatinine 1.2 and sodium levels at 138. The patient is known to have CAD, previous bypass surgery, ischemic cardiomyopathy with impaired ejection fraction of 20% and he has an AICD in place. He also has dementia, hypertension hypothyroidism and seizure disorder. Surgery was done on 04/10/2024 through a right open inguinal hernia repair. The patient has no clear indication for any ongoing infection and this has been evaluated and confirmed by the general surgical team. Objective - Vital Signs Vital signs: Vital Signs Temp 98.0 F 04/18/24 07:27 Pulse 80 04/18/24 12:12 Resp 18 04/18/24 12:12 BP 154/61 04/18/24 07:27 Pulse Ox 99 04/18/24 07:27 FiO2 Intake & Output 04/17/24 04/18/24 04/18/24 18:59 06:59 18:59 Intake Total 200 Output Total 575 700 Balance -375 -700 Intake: Oral 200 Output: Urine 575 700 Other: Voiding Method Urinal Urinal # Voids 1 2 - Exam GENERAL EXAM: Alert, pleasant 73-year-old male on room air, comfortable in no apparent distress. HEAD: Normocephalic. EYES: Normal reaction of pupils, equal size. NOSE: Clear with pink turbinates. THROAT: No erythema or exudates. NECK: No masses, no JVD. CHEST: No chest wall deformity. LUNGS: Equal air entry with few scattered rhonchi. CVS: S1 and S2 normal with no audible murmur, regular rhythm. ABDOMEN: No hepatosplenomegaly, normal bowel sounds, no guarding or rigidity. SPINE: No scoliosis or deformity SKIN: No rashes CENTRAL NERVOUS SYSTEM: No focal deficits, tone is normal in all 4 extremities. EXTREMITIES: There is no peripheral edema. No clubbing, no cyanosis. Peripheral pulses are intact. - Labs CBC & Chem 7: 04/18/24 04:16 04/18/24 04:16 Labs: Abnormal Lab Results - Last 24 Hours (Table) 04/18/24 04/18/24 Range/Units 04:16 04:16 Hgb 12.9 L (13.0-17.5) gm/dL RDW 17.2 H (11.5-15.5) % Chloride 110 H (98-107) mmol/L Carbon Dioxide 20 L (22-30) mmol/L BUN 32 H (9-20) mg/dL Assessment and Plan Plan: Abdominal pain, nausea, vomiting, diarrhea. CT scan of the abdomen and pelvis revealed associated cellulitis and underlying phlegmon with early abscess extended behind the deep inguinal ring, down the right inguinal canal and into the scrotal sac. Discussed the findings with general surgery and based on his opinion, those are postsurgical findings and there is no clear indication for any groin or abdominal wall infection at this point in time Staff hominis septicemia currently on vancomycin COPD with ongoing cough and congestion. Rule out a component of aspiration. Chest x-ray shows no acute abnormalities and the patient is only on 3 L of oxygen by nasal cannula Recent right open inguinal hernia repair 04/10/2024 Bacteremia secondary to Staphylococcus hominis Developing cough, congestion. Chest x-ray shows no acute pulmonary process Previous 45-year cigarette smoking history, currently smokes cigars Coronary artery disease with previous stent placement, previous bypass surgery Ischemic cardiomyopathy with ejection fraction of 20%, status post AICD placement Hypothyroidism Hypertension History of seizures History of dementia, resides in an adult foster care Plan: Overall respiratory status is stable and the patient remains on 3 days of oxygen by nasal cannula Antibiotics have been discontinued Continue DuoNeb inhalations Pulmicort and Perforomist inhalations to be switched to Symbicort Use incentive spirometer and flutter valve Use Mucinex for cough and congestion Working on discharge
--- NOTE | 2024-04-19 13:30 | P.PN ---
Subjective Progress Note Date: 04/18/24 73-year-old male patient with past medical history significant for coronary artery disease, ischemic cardiomyopathy with EF of 25%, history of CABG in 1995, recent PCI in January 2024, history of AICD, hypertension, hyperlipidemia, COPD, seizure, dementia who recently underwent open repair of right inguinal hernia 2 days ago now presented with nausea, abdominal pain. CT abdomen showed inflammatory changes at the operative field, had no drainage or bleeding at the operative site. Patient noted to have ecchymosis, [facility] [place] [facility]. Patient admitted under general surgery services, internal medicine consulted for medical management. Patient is poor historian. Vitals: Afebrile, heart rate 68, respiratory rate 17, blood pressure 128/78, saturating 97% on room air. WBC 7.9, hemoglobin 12.9, platelets 136. Sodium 137, potassium 4.4, BUN 31, creatinine 1.01. Troponin negative X2. CRP 4.9. 04/15--patient was seen and examined today. On 2 L oxygen at baseline. Troponin remain negative. No issues overnight. General surgery planning to monitor overnight--low suspicion of infection. 04/16--patient was seen and examined today. Patient was complaining of short of breath, productive cough, appeared to fluid overloaded on exam. On 2 L oxygen at baseline. Given 1 dose of IV Lasix 40 mg. Pulmonary consulted, started on inhalers. Chest x-ray negative for acute process. Currently on vancomycin. 04/17--- patient was seen and examined today, complains of shortness breath, productive cough, had worse anxiety in the morning, currently better. Patient remains on inhalers. Will give another dose of IV Lasix today. Consulted ID. Repeat blood cultures ordered, previous blood culture grew Staphylococcus hominis. 04/18/2024 Patient is seen in follow-up today status post right inguinal hernia repair with positive blood cultures with infectious disease following and admitted to general surgery. Patient also with history of COPD/CHF maintained on 2 to 3 L via nasal cannula. Patient chronically wears 2 L outpatient. Plan is for patient to return to [facility] where he resides. Patient is medically stable once cleared by infectious disease and general surgery. Patient is afebrile with no reports of chest pain or palpitations. Patient reports he chronically has a cough and no worsening shortness of breath. Patient is asking when he can go. REVIEW OF SYSTEMS: CONSTITUTIONAL: No fever or chills. CARDIOVASCULAR: No chest pain, palpitations or syncope. PULMONARY: No shortness of breath, no cough, sore throat. GASTROINTESTINAL: No nausea, vomiting, diarrhea, abdominal pain. : No Dysuria, urgency, frequency. Extremities: No edema. NEUROLOGICAL: No headaches, no weakness, or numbness PHYSICAL EXAMINATION: GENERAL: The patient is A&O x3, NAD HEENT: EOMI, Sclerae anicteric, Moist Mucous membranes Neck: Supple, Non tender, No JVD PULMONARY: Equal breath souds B/L, No wheezing, No crackles. CARDIOVASCULAR: S1, S2 present. No murmurs, rubs, or gallops. ABDOMEN: Soft, nontender, nondistended, normoactive bowel sounds. No guarding or rebound tenderness. MUSCULOSKELETAL: No edema, No cyanosis. No clubbing. Normal ROM. Intact peripheral pulses. EXTREMITIES: No cyanosis, clubbing, or pedal edema. NEUROLOGICAL: CN 2-12 grossly intact. No FND Skin: No Rash Assessment and plan: Recent right inguinal hernia repair: Concern for phlegmon/early abscess: Blood culture positive for Staphylococcus hominis Presented with abdominal pain, nausea. CT showed inflammatory changes at the operative site, associated cellulitis and underlying phlegmon with early abscess extending behind the deep inguinal ring down the right inguinal canal into scrotal sac, correlate for possible infection with gas-forming organism versus possibility of Benigno's gangrene. Ecchymosis noted Blood cultureStaphylococcus hominis--repeat blood cultures currently on vancomycin Consulted ID. Management per general surgery History of coronary artery disease status post CABG in 1995 History of recent PCI in January 2024: Status post AICD Seizure disorder: Ischemic cardiomyopathy with EF 25% Stable, continue home meds COPD: 2 L oxygen at baseline Acute on chronic systolic CHF Patient reports chronic shortness of breath, productive cough. Chest x-ray negative for acute process. Patient was given a dose of IV Lasix showing some improvement Continue inhalers per pulmonary Pulmonary following. Acute kidney injury: Resolved Monitor BMP Plan: Monitor vital signs and labs Continue telemetry monitoring Labs and medication were reviewed. Continue same treatment. Resume home medication. Further recommendations as per clinical course of the patient Patient is medically stable once cleared by infectious disease and general s urgery Thank you kindly for this consultation. We will continue to follow with general surgery during hospitalization The impression and plan of care has been dictated by Ivory Huang, Nurse Practitioner as directed. Dr. Sebastien MD I have performed a history and examination and MDM of this patient, discussed the same with the dictator, and agree with the dictator's assessment and plan as written ,documented as a scribe. Based on total visit time, I have performed more than 50% of the visit. Objective - Vital Signs Vital signs: Vital Signs Temp 98.0 F 04/18/24 07:27 Pulse 80 04/18/24 09:27 Resp 16 04/18/24 07:27 BP 154/61 04/18/24 07:27 Pulse Ox 99 04/18/24 07:27 FiO2 Intake & Output 04/17/24 04/18/24 04/18/24 18:59 06:59 18:59 Intake Total 200 Output Total 575 700 Balance -375 -700 Intake: Oral 200 Output: Urine 575 700 Other: Voiding Method Urinal Urinal # Voids 1 2 - Labs CBC & Chem 7: 04/18/24 04:16 04/18/24 04:16 Labs: Abnormal Lab Results - Last 24 Hours (Table) 04/17/24 04/18/24 04/18/24 Range/Units 03:08 04:16 04:16 Hgb 12.9 L (13.0-17.5) gm/dL RDW 17.2 H (11.5-15.5) % Chloride 110 H (98-107) mmol/L Carbon Dioxide 20 L (22-30) mmol/L BUN 32 H (9-20) mg/dL Calcium 8.3 L (8.7-10.3) mg/dL
--- NOTE | 2024-04-19 14:42 | P.PN ---
Subjective Progress Note Date: 04/18/24 Principal diagnosis: Reason for follow-up is a positive blood culture Patient is a 73-year-old male with a past medical history significant for hypertension hyperlipidemia NE seizure disorder COPD heart failure coronary artery disease in this patient apparently recently did have a right groin hernia repair patient presenting to [facility] ER about 6 days ago on 04/12/2024 concerning for nausea vomiting and groin, patient did have a CT abdominal pelvis we did shows cellulitis and possible phlegmon to the right groin area blood culture positive for staph epi prompted this consultation On today's evaluation that is 04/18/2024, patient has been afebrile, patient is breathing comfortably and is currently on 3 L current oxygen, patient denies having any chest pain has been complaining of cough not bringing up any sputum, patient denies nausea vomiting or diarrhea and no abdominal pain, denies any worsening pain to the right groin. Patient white count is 6.0, creatinine is 1.21 CRP 6.0 blood culture repeat pending Objective - Vital Signs Vital signs: Vital Signs Temp 98.0 F 04/18/24 07:27 Pulse 80 04/18/24 09:27 Resp 16 04/18/24 07:27 BP 154/61 04/18/24 07:27 Pulse Ox 99 04/18/24 07:27 FiO2 Intake & Output 04/17/24 04/18/24 04/18/24 18:59 06:59 18:59 Intake Total 200 Output Total 575 700 Balance -375 -700 Intake: Oral 200 Output: Urine 575 700 Other: Voiding Method Urinal Urinal # Voids 1 2 - Exam GENERAL DESCRIPTION: An elderly male lying in bed in no distress RESPIRATORY SYSTEM: Unlabored breathing , decreased breath sounds at bases HEART: S1 S2 regular rate and rhythm , ABDOMEN: Soft , no tenderness EXTREMITIES: No edema feet - Labs CBC & Chem 7: 04/18/24 04:16 04/18/24 04:16 Labs: Abnormal Lab Results - Last 24 Hours (Table) 04/18/24 04/18/24 Range/Units 04:16 04:16 Hgb 12.9 L (13.0-17.5) gm/dL RDW 17.2 H (11.5-15.5) % Chloride 110 H (98-107) mmol/L Carbon Dioxide 20 L (22-30) mmol/L BUN 32 H (9-20) mg/dL Assessment and Plan (1) Bacteremia Status: Acute Code(s): R78.81 - BACTEREMIA SNOMED Code(s): 3486034 (2) Penicillin allergy Status: Acute Code(s): Z88.0 - ALLERGY STATUS TO PENICILLIN SNOMED Code(s): 66830586 Plan: 1patient with a Staphylococcus hominis bacteremia which is a skin pathogen could be related to the right groin cellulitis in this patient who did have abnormality seen on the CT abdominal pelvis that was done on admission with concern for possible gas-forming infection versus skin contamination 2-penicillin allergy that will limit the number of antibiotics safe to use 3-blood culture has been to document and are currently pending patient did have mildly elevated CRP, to continue with the cefazolin and monitor clinical course closely Dictation was produced using [employer] dictation software. please excuse any grammatical, word or spelling errors. Time with Patient: Less than 30
== END 2024-04-18 14:13 | disposition home or self-care (01) | DRG 862 ==
LOC: EC 17:33 → 4SSUR 21:32 → INTOOBSV 21:32 → OBSVTOIN 21:33 → 4SSUR 23:00
PROVIDERS: ADMIT Surgery; ATTEND Surgery
DX: T81.41XA Infection following a procedure, superficial incisional surgical site, initial encounter (principal); I50.23 Acute on chronic systolic (congestive) heart failure; K65.1 Peritoneal abscess; L03.311 Cellulitis of abdominal wall; N17.9 Acute kidney failure, unspecified; B95.7 Other staphylococcus as the cause of diseases classified elsewhere; E03.9 Hypothyroidism, unspecified; Z79.890 Hormone replacement therapy; E78.5 Hyperlipidemia, unspecified; F17.290 Nicotine dependence, other tobacco product, uncomplicated; F25.9 Schizoaffective disorder, unspecified; F32.A Depression, unspecified; G40.909 Epilepsy, unspecified, not intractable, without status epilepticus; I11.0 Hypertensive heart disease with heart failure; I25.10 Atherosclerotic heart disease of native coronary artery without angina pectoris; I25.2 Old myocardial infarction; I25.5 Ischemic cardiomyopathy; J44.9 Chronic obstructive pulmonary disease, unspecified; Z63.72 Alcoholism and drug addiction in family; Z79.02 Long term (current) use of antithrombotics/antiplatelets; Z79.51 Long term (current) use of inhaled steroids; Z79.82 Long term (current) use of aspirin; Z79.84 Long term (current) use of oral hypoglycemic drugs; Z79.899 Other long term (current) drug therapy; Z88.0 Allergy status to penicillin; Z95.1 Presence of aortocoronary bypass graft; Z95.5 Presence of coronary angioplasty implant and graft; Z95.810 Presence of automatic (implantable) cardiac defibrillator; Z99.81 Dependence on supplemental oxygen
CPT/HCPCS: 36415; 71045; 71046; 74177; 80048; 80053; 80202; 82550; 82552; 82565; 83874; 84145; 84484; 85025; 85027; 85610; 85730; 86140; 87040; 87077; 87186; 93005; 94640; 94667; 94668; 94760; 96361; 96365; 96367; 96375; 99291

== ENCOUNTER 2024-04-24 06:12 | Inpatient (IN) | payer MEDICARE, OTHER ==
--- NOTE | 2024-04-24 06:27 | ED ---
SOB HPI - General Source: patient Mode of arrival: ambulatory Limitations: no limitations <Dagoberto East - Last Filed: 04/24/24 06:26> - General Source: patient Mode of arrival: EMS Limitations: no limitations - History of Present Illness MD Complaint: shortness of breath <Latasha Huerta - Last Filed: 04/24/24 16:03> - General Chief Complaint: Shortness of Breath Stated Complaint: SOB Time Seen by Provider: 04/24/24 06:15 - History of Present Illness Initial Comments: This is a 73-year-old male who presents to the emergency department for shortness of breath. States that he was woken from his sleep feeling like he could not breathe and almost very panicky. Reports a history of COPD. States that he is unsure if he is having a panic attack or if something else is going on with his breathing. Denies any stressful events recently or anything that may have caused a panic attack. He was given a breathing treatment from the ECF he lives at as well as one from EMS without substantial relief. Reports some associated chest pain. (Latasha Huerta) - Related Data Home Medications Medication Instructions Recorded Confirmed Cyanocobalamin (Vitamin B-12) 1,000 mcg PO DAILY@0800 08/23/22 04/24/24 [Vitamin B-12] Sucralfate [Carafate] 1 gm PO BID@0800,199908/23/22 04/24/24 Famotidine [Pepcid] 20 mg PO BID@0700,1700 08/31/22 04/24/24 Acetaminophen [Tylenol 8 Hour] 650 mg PO TID@0800,1400,199909/17/23 04/24/24 Atorvastatin Calcium [Lipitor] 40 mg PO HS@199909/17/23 04/24/24 Folic Acid 0.4 mg PO DAILY@0800 09/17/23 04/24/24 Levothyroxine Sodium [Synthroid] 100 mcg PO DAILY@0700 09/17/23 04/24/24 Mirtazapine 30 mg PO HS@199909/17/23 04/24/24 carvediloL [Coreg] 3.125 mg PO BID@0800,1700 09/17/23 04/24/24 Budesonide-Formot 160-4.5 Mcg 2 puff INHALATION RT-BID@799,199910/16/23 04/24/24 [Symbicort 160-4.5 Mcg Inhaler] Dapagliflozin Propanediol [Farxiga] 10 mg PO DAILY@79910/16/23 04/24/24 Losartan [Cozaar] 25 mg PO DAILY@79910/16/23 04/24/24 Ticagrelor [Brilinta] 90 mg PO BID@799,199910/16/23 04/24/24 oxyCODONE-APAP 5-325MG [Percocet 1 tab PO Q4H PRN 10/16/23 04/24/24 5-325 mg] Budesonide 0.5 mg INHALATION RT-BID@899,179903/03/24 04/24/24 Escitalopram [Lexapro] 20 mg PO DAILY@79904/09/24 04/24/24 Ipratropium-Albuterol Nebulize 3 ml INHALATION RT-QID 04/13/24 04/24/24 [Duoneb 0.5 mg-3 mg/3 ml Soln] Melatonin 5 mg PO HS@199904/13/24 04/24/24 Aspirin 81 mg PO DAILY@79904/24/24 04/24/24 Loperamide [Imodium] 2 - 4 mg PO DIRECTED PRN 04/24/24 04/24/24 Sennosides/Docusate Sodium 2 tab PO HS@199904/24/24 04/24/24 [Senna-S 8.6-50 mg Tablet] Previous Rx's Medication Instructions Recorded Nitroglycerin Sl Tabs [Nitrostat] 0.4 mg SUBLINGUAL Q5M PRN 90 Days 09/21/23 #100 tab HYDROcodone/APAP 5-325MG [[place] 1 tab PO Q6HR PRN #10 tab 04/10/24 5-325] Allergies Allergy/AdvReac Type Severity Reaction Status Date / Time morphine Allergy Anaphylaxis Verified 04/24/24 12:29 Penicillins Allergy Swelling Verified 04/24/24 12:29 on entire body Influenza Virus Vaccines AdvReac Unknown Verified 04/24/24 12:29 pneumococcal vaccine AdvReac Unknown Verified 04/24/24 12:29 Review of Systems ROS Other: All systems not noted in ROS Statement are negative. <Dagoberto East Last Filed: 04/24/24 06:26> ROS Other: All systems not noted in ROS Statement are negative. <Latasha Huerta - Last Filed: 04/24/24 16:03> ROS Statement: Those systems with pertinent positive or pertinent negative responses have been documented in the HPI. Past Medical History Past Medical History: Coronary Artery Disease (CAD), Heart Failure, COPD, Dementia, Hyperlipidemia, Hypertension, Myocardial Infarction ([place]), Seizure Disorder, Syncope, Thyroid Disorder Additional Past Medical History / Comment(s): Ischemic cardiomyopathy, EF 20- 25%, last seizure about 2 yrs ago, hypothyroid.neuropathy "WHEN HE WORKED HE HAD A CRUSHING INJURY -COLLAPSED LUNGS C/T AND HAS CHRONIC BACK PAIN"" pt states he is schizophrenic/bipolar. TRIPLE A REPAIR AUG 2022 Last Myocardial Infarction Date:: unk History of Any Multi-Drug Resistant Organisms: None Reported Past Surgical History: AICD, Back Surgery, Coronary Bypass/CABG, Heart Catheterization, Heart Catheterization With Stent Additional Past Surgical History / Comment(s): 1995 CABG 4 vessel in [place], has had 2"HEART CATHS/had 2 STENTS after cabg sx.pt stated they were done in [facility]. "sx on tailbone, cortisone injections, devin inguinal hernia repair Past Anesthesia/Blood Transfusion Reactions: No Reported Reaction Date of Last Stent Placement:: 1995 Type of Cardiac Device: AICD Device Placement Date:: 1995 in [facility] Past Psychological History: Anxiety, Depression, Schizoaffective Disorder, Schizophrenia Smoking Status: Current every day smoker Past Alcohol Use History: None Reported Past Drug Use History: None Reported - Past Family History Mother Family Medical History: Respiratory Disorder Additional Family Medical History / Comment(s): Mother had TB Father Additional Family Medical History / Comment(s): Father was an alcoholic, was killed in a motor vehicle accident <Dagoberto East - Last Filed: 04/24/24 06:26> General Exam Limitations: no limitations <Dagoberto East - Last Filed: 04/24/24 06:26> Limitations: no limitations General appearance: alert, anxious Head exam: Present: atraumatic, normocephalic, normal inspection Respiratory exam: Present: wheezes, rales, decreased breath sounds, prolonged expiratory Cardiovascular Exam: Present: regular rate, normal rhythm, normal heart sounds. Absent: systolic murmur, diastolic murmur, rubs, gallop, clicks Neurological exam: Present: alert, oriented X3, CN II-XII intact Psychiatric exam: Present: normal mood, anxious Skin exam: Present: warm, dry, intact, normal color. Absent: rash <Latasha Huerta - Last Filed: 04/24/24 16:03> Course Vital Signs 04/24/24 04/24/24 04/24/24 06:20 06:26 06:42 Temperature 97.7 F Pulse Rate 92 93 86 Respiratory 22 24 Rate Blood Pressure 140/125 130/101 O2 Sat by Pulse 96 94 L Oximetry 04/24/24 04/24/24 04/24/24 06:43 06:59 08:50 Temperature Pulse Rate 88 93 90 Respiratory 22 26 H Rate Blood Pressure 135/77 141/73 O2 Sat by Pulse 100 100 Oximetry 04/24/24 04/24/24 04/24/24 11:08 12:08 12:24 Temperature Pulse Rate 76 82 83 Respiratory 18 Rate Blood Pressure 136/78 O2 Sat by Pulse 98 Oximetry 04/24/24 15:55 Temperature Pulse Rate 85 Respiratory Rate Blood Pressure O2 Sat by Pulse Oximetry Medical Decision Making - EKG Data -: EKG Interpreted by Sd EKG shows normal: sinus rhythm (Rate 99 bpm, with frequent PVCs), axis (Normal), intervals (Normal), QRS complexes (Inferior infarct.), ST-T waves (Normal) Rate: normal <Dagoberto East - Last Filed: 04/24/24 06:26> - Lab Data Result diagrams: 04/24/24 06:39 04/24/24 06:39 - Radiology Data Radiology results: report reviewed, image reviewed <Latasha Huerta - Last Filed: 04/24/24 16:03> - Medical Decision Making This is a 73 year old male who presents to the emergency department for shortness of breath. Was pt. sent in by a medical professional or institution? @ -No Did you speak to anyone other than the patient for history? @ -EMS provided the information about the breathing treatments given. Did you review nursing and triage notes? @ -Yes, and I agree, it is accurate with regards to the patient's symptoms. Were old charts reviewed? @ -No Differential Diagnosis? @ -Differential Dyspnea: Coronary syndrome, arrhythmia, tamponade, asthma, COPD, pulmonary embolism, pneumonia, pneumothorax, pulmonary effusion, anaphylaxis, diabetic ketoacidosis, flailed chest, pulmonary contusion, diaphragmatic rupture, anemia, neuromuscular, this is not meant to be an all-inclusive list. EKG interpreted by me (3pts min.)? @ -EKG interpreted by me demonstrating the following: Sinus rhythm with frequent PVCs. Ventricular rate 99 bpm, GA interval 140 ms, QRS duration 106 ms, QTc 413 ms. X-rays interpreted by me (1pt min.)? @ -Chest x-ray obtained. My interpretation identifies a right-sided pleural effusion. CT interpreted by me (1pt min.)? @ -Not obtained U/S interpreted by me (1pt. min.)? @ -Not obtained What testing was considered but not performed? (CT, X-rays, U/S, labs)? Why? @ -None What meds were considered but not given? Why? @ -None Did you discuss the management of the patient with other professionals? @ -Yes, Dr. Schulz who accepts the patient for admission. Did you reconcile home meds? @ -Yes Was smoking cessation discussed for >3mins.? @ -I discussed smoking cessation for greater than 3 minutes. The risk of smoking were discussed with the patient including but not limited to risks of cancer, stroke, coronary artery disease and COPD. Also discussed with patient were multiple methods of quitting smoking. Lastly we discussed the financial cost of smoking. Was critical care preformed (if so, how long)? @ -No Were there social determinants of health that impacted care today? How? (Homelessness, low income, unemployed, alcoholism, drug addiction, transportation, low edu. Level, literacy, decrease access to med. care, long term, rehab)? @ -No Was there de-escalation of care discussed even if they declined? (Discuss DNR or withdrawal of care, Hospice)? @ -No What co-morbidities impacted this encounter? (DM, HTN, Smoking, COPD, CAD, Cancer, CVA, Hep., AIDS, mental health diagnosis, sleep apnea, morbid obesity)? @ -COPD, CAD, CHF, smoking Was patient admitted / discharged? @ -Admitted. Lab work demonstrates leukocytosis with a white blood cell count of 13.7. BNP elevated at 5110. Patient was somewhat tearful and anxious on exam, however he did also have diminished breath sounds and audible wheezes. COVID, influenza, and RSV testing negative. Chest x-ray reveals a small right pleural effusion. Patient continued to be symptomatic and felt like he was struggling to breathe. He may have a component of COPD exacerbation associated with this. Patient admitted to medicine for CHF exacerbation with possible associated COPD exacerbation. 40 mg of IV Lasix was administered. Consult placed for cardiology. Case discussed with ED attending, Dr. Silver. Undiagnosed new problem with uncertain prognosis? @ -None Drug Therapy requiring intensive monitoring for toxicity (Heparin, Nitro, Insulin, Cardizem)? @ -None Were any procedures done? @ -None Diagnosis/symptom? @ -CHF exacerbation Acute, or Chronic, or Acute on Chronic? @ -Acute on chronic Uncomplicated (without systemic symptoms) or Complicated (systemic symptoms)? @ -Complicated Side effects of treatment? @ -None Exacerbation, Progression, or Severe Exacerbation] @ -Exacerbation Poses a threat to life or bodily function? @ -Yes, can lead to further respiratory compromise and (Latasha Huerta) - Lab Data Lab Results 04/24/24 04/24/24 04/24/24 Range/Units 06:32 06:39 06:39 WBC 13.7 H (3.8-10.6) k/uL RBC 4.90 (4.30-5.90) m/uL Hgb 14.0 (13.0-17.5) gm/dL Hct 44.9 (39.0-53.0) % MCV 91.5 (80.0-100.0) fL MCH 28.6 (25.0-35.0) pg MCHC 31.3 (31.0-37.0) g/dL RDW 17.2 H (11.5-15.5) % Plt Count 216 (150-450) k/uL MPV 8.4 Neutrophils % 83 % Lymphocytes % 10 % Monocytes % 4 % Eosinophils % 1 % Basophils % 0 % Neutrophils # 11.4 H (1.3-7.7) k/uL Lymphocytes # 1.4 (1.0-4.8) k/uL Monocytes # 0.6 (0-1.0) k/uL Eosinophils # 0.1 (0-0.7) k/uL Basophils # 0.0 (0-0.2) k/uL Hypochromasia Slight Anisocytosis Slight PT 10.9 (10.0-12.5) sec INR 1.0 (<1.2) APTT 23.2 (22.0-30.0) sec Sodium (137-145) mmol/L Potassium (3.5-5.1) mmol/L Chloride (98-107) mmol/L Carbon Dioxide (22-30) mmol/L Anion Gap mmol/L BUN (9-20) mg/dL Creatinine (0.66-1.25) mg/dL Est GFR (CKD-EPI)AfAm (>60 ml/min/1.73 sqM) Est GFR (CKD-EPI)NonAf (>60 ml/min/1.73 sqM) Glucose (74-99) mg/dL Plasma Lactic Acid Rigoberto (0.7-2.0) mmol/L Calcium (8.4-10.2) mg/dL Total Bilirubin (0.2-1.3) mg/dL AST (17-59) U/L ALT (4-49) U/L Alkaline Phosphatase (38-126) U/L Troponin I (0.000-0.034) ng/mL NT-Pro-B Natriuret Pep pg/mL Total Protein (6.3-8.2) g/dL Albumin (3.5-5.0) g/dL Influenza Type A (PCR) Not Detected (Not Detectd) Influenza Type B (PCR) Not Detected (Not Detectd) RSV (PCR) Not Detected (Not Detectd) SARS-CoV-2 (PCR) Not Detected (Not Detectd) 04/24/24 04/24/24 04/24/24 Range/Units 06:39 06:39 06:39 WBC (3.8-10.6) k/uL RBC (4.30-5.90) m/uL Hgb (13.0-17.5) gm/dL Hct (39.0-53.0) % MCV (80.0-100.0) fL MCH (25.0-35.0) pg MCHC (31.0-37.0) g/dL RDW (11.5-15.5) % Plt Count (150-450) k/uL MPV Neutrophils % % Lymphocytes % % Monocytes % % Eosinophils % % Basophils % % Neutrophils # (1.3-7.7) k/uL Lymphocytes # (1.0-4.8) k/uL Monocytes # (0-1.0) k/uL Eosinophils # (0-0.7) k/uL Basophils # (0-0.2) k/uL Hypochromasia Anisocytosis PT (10.0-12.5) sec INR (<1.2) APTT (22.0-30.0) sec Sodium 142 (137-145) mmol/L Potassium 5.1 (3.5-5.1) mmol/L Chloride 109 H (98-107) mmol/L Carbon Dioxide 23 (22-30) mmol/L Anion Gap 10 mmol/L BUN 21 H (9-20) mg/dL Creatinine 1.35 H (0.66-1.25) mg/dL Est GFR (CKD-EPI)AfAm 60 (>60 ml/min/1.73 sqM) Est GFR (CKD-EPI)NonAf 52 (>60 ml/min/1.73 sqM) Glucose 146 H (74-99) mg/dL Plasma Lactic Acid Rigoberto 1.8 (0.7-2.0) mmol/L Calcium 9.7 (8.4-10.2) mg/dL Total Bilirubin 0.6 (0.2-1.3) mg/dL AST 36 (17-59) U/L ALT 20 (4-49) U/L Alkaline Phosphatase 83 (38-126) U/L Troponin I 0.017 (0.000-0.034) ng/mL NT-Pro-B Natriuret Pep 5110 pg/mL Total Protein 7.6 (6.3-8.2) g/dL Albumin 4.5 (3.5-5.0) g/dL Influenza Type A (PCR) (Not Detectd) Influenza Type B (PCR) (Not Detectd) RSV (PCR) (Not Detectd) SARS-CoV-2 (PCR) (Not Detectd) Disposition <Dagoberto East - Last Filed: 04/24/24 06:26> <Latasha Huerta - Last Filed: 04/24/24 16:03> Clinical Impression: CHF exacerbation, Nicotine dependence Disposition: ADMITTED IP TO THIS HOSP
[2024-04-24] MEDS: LORazepam 2 MG/ML INJ IV STA (06:40)
[2024-04-24] MEDS: predniSONE 20 MG TAB PO STA (06:40)
[2024-04-24] MEDS: IPRATROPIUM 0.5 MG/2.5 ML NEBU INHALATION STA (06:42)
[2024-04-24] MEDS: ALBUTEROL NEBULIZED 2.5 MG/3 ML INHALATION STA (06:42)
[2024-04-24 07:03] LABS: Anisocytosis Slight; Basophils % (A) 0 %; Eosinophils # (A) 0.1 k/uL (0-0.7); Eosinophils % (A) 1 %; HCT 44.9 % (39.0-53.0); Hypochromasia Slight; Lymphocytes # (A) 1.4 k/uL (1.0-4.8); Lymphocytes % (A) 10 %; MCH 28.6 pg (25.0-35.0); MCHC 31.3 g/dL (31.0-37.0); MCV 91.5 fL (80.0-100.0); Mean Platelet Volume 8.4; Monocytes # (A) 0.6 k/uL (0-1.0); Monocytes % (A) 4 %; Neutrophils # (A) 11.4 k/uL (1.3-7.7); Neutrophils % (A) 83 %; Platelet Count 216 k/uL (150-450); RDW 17.2 % (11.5-15.5); WBC 13.7 k/uL (3.8-10.6)
[2024-04-24 07:17] LABS: ALT 20 U/L (4-49); AST 36 U/L (17-59); African American GFR (CKD) 60 (>60 ml/min/1.73 sqM); Albumin 4.5 g/dL (3.5-5.0); Alkaline Phosphatase 83 U/L (38-126); Anion Gap 10 mmol/L; Blood Urea Nitrogen 21 mg/dL (9-20); Calcium 9.7 mg/dL (8.4-10.2); Carbon Dioxide 23 mmol/L (22-30); Chloride 109 mmol/L (98-107); Glucose 146 mg/dL (74-99); Non-African American GFR(CKD) 52 (>60 ml/min/1.73 sqM); Potassium 5.1 mmol/L (3.5-5.1); Sodium 142 mmol/L (137-145); Total Bilirubin 0.6 mg/dL (0.2-1.3); Total Protein 7.6 g/dL (6.3-8.2)
[2024-04-24 07:25] LABS: NT-Pro-B-Type Natriuretic Pept 5110 pg/mL
[2024-04-24 07:37] LABS: Partial Thromboplastin Time 23.2 sec (22.0-30.0); Prothrombin Time 10.9 sec (10.0-12.5)
--- NOTE | 2024-04-24 08:40 | XR ---
EXAMINATION TYPE: XR chest 2V DATE OF EXAM: 04/24/2024 COMPARISON: 04/16/2024 HISTORY: Shortness of breath TECHNIQUE: Frontal and lateral views of the chest are obtained. Examination limited by patient rotat ion. FINDINGS: Scattered senescent parenchymal changes noted. Hyperinflation compatible with COPD. Interstitial prominence with small right-sided pleural effusion. Heart size is stable. Mediastinal structures are stable and grossly unremarkable. No evidence for hilar prominence. Degenerative changes dorsal spine. IMPRESSION: 1. Interstitial prominence with small right-sided pleural effusion.
[2024-04-24] MEDS: FUROSEMIDE 10 MG/ML 4 ML VIAL IV STA (08:47)
[2024-04-24] MEDS ORDERED: ONDANSETRON 4 MG/2 ML VIAL IVP PRN (09:00)
[2024-04-24] MEDS ORDERED: NALOXONE 0.4 MG/ML 1 ML VIAL IV PRN (09:00)
[2024-04-24] MEDS ORDERED: IPRATROPIUM-ALBUTEROL 3 ML NEB INHALATION PRN (09:01)
[2024-04-24] MEDS: PANTOPRAZOLE 40 MG/10 ML VIAL IV SCH (09:08)
--- NOTE | 2024-04-24 11:20 | P.HPIM ---
History of Present Illness H&P Date: 04/24/24 History of Presenting Illness: Patient is a very pleasant 73-year-old male with a past medical history of CAD status post CABG x 4 followed by stent placement x 2, nonischemic cardiomyopathy status post AICD placement, hypertension, hyperlipidemia, COPD, hypothyroidism, anxiety with depression, schizoaffective disorder, schizophrenia, and nicotine dependence. He presented to the emergency department from [facility] with a chief complaint of shortness of breath. Patient reports initially started a couple days ago and progressively worsened. He denies having cough or congestion, fevers, chills, diaphoresis, palpitations, chest pain, nausea, vomiting, or experiencing any numbness/tingling/weakness/swelling in his extremities. On arrival to our facility, patient underwent evaluation in the emergency department. Vital signs upon arrival show blood pressure 140/125, heart rate 92, respiratory rate 22, temp 97.7 F, and SpO2 of 96% on 3 L. EKG completed showing normal sinus rhythm with frequent PVCs and pronounced Q waves in inferior leads II, III, and aVF. Chest x-ray completed showing interstitial prominence with small right sided pleural effusion. Labs completed and reviewed. CBC showing leukocytosis with WBC count of 13.7. Coagulation profile normal findings. BMP showing hyperchloremia with chloride of 109 and mildly elevated renal function with BUN of 21, creatinine of 1.35, GFR 52 with baseline creatinine of 1.2. Blood glucose was 146. Liver profile unremarkable. Troponin was 0.017, and proBNP was 5110. Influenza A, influenza B, RSV, and COVID PCR was negative. Patient admitted under our services with consultation to cardiology. Review of systems: Pertinent positives and negatives as discussed in HPI, a complete review of systems was performed and all other systems are negative. Physical exam: Vital signs reviewed and stable. General: Nontoxic, no distress and appears stated age. Derm: Skin warm and dry, normal coloration for ethnicity. Head: Atraumatic, normocephalic and symmetric. Eyes: EOM's intact, no lid lag, and anicteric sclera Mouth: no lip lesions, mucus membranes moist Cardiovascular: regular rate and rhythm with normal S1S2, systolic murmur, positive posterior tibial pulses bilaterally, and cap refill < 2 seconds. Lungs: Respirations even, regular, and unlabored. Lungs with bibasilar crackles and soft expiratory wheezes, no rhonchi or rales noted. No accessory muscle usage. Abdominal: soft, nontender to palpation, no guarding, no appreciable organomegaly Ext: ROM intact. No gross muscle atrophy, no edema, no contractures Neuro: Speech clear, face symmetrical and CN II-XII grossly intact with no noted focal neuro deficits Psych: Alert and oriented to person, place, time, and situation. Appropriate and pleasant affect. Assessment and Plan of Care: Acute on chronic systolic heart failure exacerbation History of CAD status post CABG x 4 and stent placement x 2 Hypertension Hyperlipidemia -Cardiology consulted -Telemetry monitoring -Currently 0.017 ProBNP 5110 -Daily weights -Close monitoring of I's and O's -Lasix 40 mg IVP twice daily -Continue daily medication regimen with aspirin 81 mg, atorvastatin 40 mg, carvedilol 3.125 mg twice daily, Farxiga 10 mg daily, losartan 0.5 mg daily, and Brilinta 90 mg twice daily. -Continued close monitoring of electrolytes while diuresing. Hypothyroidism Continue levothyroxine 100 mcg daily. COPD, not in acute exacerbation -Continue Symbicort twice daily, scheduled nebulizer treatments 4 times daily and as needed for shortness of breath/wheezing. -Patient to be provided with supplemental oxygen as needed to maintain SpO2 equal to or greater than 90%. Data and imaging reviewed: -As stated above in HPI. The patient is admitted with an anticipated greater than 2 midnight stay for evaluation of acute on chronic systolic heart failure exacerbation. CODE STATUS: Full code DVT prophylaxis: Lovenox Anticipated discharge date: Pending clinical course Anticipated discharge place: Pending clinical course Patient was seen independently by Nurse Practitioner. This document was prepared using [employer] dictation software. Please allow for errors in junior systems analyst while rare they do occur. I reviewed the documentation as provided by the JOSELINE above, who is the original author of this note. I agree with the documented assessment and plan, with the following changes: none Past Medical History Past Medical History: Coronary Artery Disease (CAD), Heart Failure, COPD, Dementia, Hyperlipidemia, Hypertension, Myocardial Infarction ([place]), Seizure Disorder, Syncope, Thyroid Disorder Additional Past Medical History / Comment(s): Ischemic cardiomyopathy, EF 20- 25%, last seizure about 2 yrs ago, hypothyroid.neuropathy "WHEN HE WORKED HE HAD A CRUSHING INJURY -COLLAPSED LUNGS C/T AND HAS CHRONIC BACK PAIN"" pt states he is schizophrenic/bipolar. TRIPLE A REPAIR AUG 2022 Last Myocardial Infarction Date:: unk History of Any Multi-Drug Resistant Organisms: None Reported Past Surgical History: AICD, Back Surgery, Coronary Bypass/CABG, Heart Catheterization, Heart Catheterization With Stent Additional Past Surgical History / Comment(s): 1995 CABG 4 vessel in [place], has had 2"HEART CATHS/had 2 STENTS after cabg sx.pt stated they were done in [facility]. "sx on tailbone, cortisone injections, devin inguinal hernia repair Past Anesthesia/Blood Transfusion Reactions: No Reported Reaction Date of Last Stent Placement:: 1995 Type of Cardiac Device: AICD Device Placement Date:: [address] in [facility] Past Psychological History: Anxiety, Depression, Schizoaffective Disorder, Schizophrenia Smoking Status: Current every day smoker Past Alcohol Use History: None Reported Past Drug Use History: None Reported - Past Family History Mother Family Medical History: Respiratory Disorder Additional Family Medical History / Comment(s): Mother had TB Father Additional Family Medical History / Comment(s): Father was an alcoholic, was killed in a motor vehicle accident Medications and Allergies Home Medications Medication Instructions Recorded Confirmed Type Cyanocobalamin (Vitamin B-12) 1,000 mcg PO DAILY@0800 08/23/22 04/24/24 History [Vitamin B-12] Acetaminophen [Tylenol 8 Hour] 650 mg PO TID@0800,1400,199909/17/23 04/24/24 History Atorvastatin Calcium [Lipitor] 40 mg PO HS@199909/17/23 04/24/24 History Folic Acid 0.4 mg PO DAILY@0800 09/17/23 04/24/24 History Levothyroxine Sodium [Synthroid] 100 mcg PO DAILY@0700 09/17/23 04/24/24 History Mirtazapine 30 mg PO HS@199909/17/23 04/24/24 History Nitroglycerin Sl Tabs [Nitrostat] 0.4 mg SUBLINGUAL Q5M PRN 90 Days 09/21/23 04/24/24 Rx #100 tab Budesonide-Formot 160-4.5 Mcg 2 puff INHALATION RT-BID@0800,199910/16/23 04/24/24 History [Symbicort 160-4.5 Mcg Inhaler] Dapagliflozin Propanediol [Farxiga] 10 mg PO DAILY@00 10/16/23 04/24/24 History Losartan [Cozaar] 25 mg PO DAILY@79910/16/23 04/24/24 History Ticagrelor [Brilinta] 90 mg PO BID@08,199910/16/23 04/24/24 History oxyCODONE-APAP 5-325MG [Percocet 1 tab PO Q4H PRN 10/16/23 04/24/24 History 5-325 mg] Budesonide 0.5 mg INHALATION RT-BID@0900,1800 03/03/24 04/24/24 History Escitalopram [Lexapro] 20 mg PO DAILY@00 04/09/24 04/24/24 History HYDROcodone/APAP 5-325MG [[place] 1 tab PO Q6HR PRN #10 tab 04/10/24 04/24/24 Rx 5-325] Ipratropium-Albuterol Nebulize 3 ml INHALATION RT-QID 04/13/24 04/24/24 History [Duoneb 0.5 mg-3 mg/3 ml Soln] Melatonin 5 mg PO HS@199904/13/24 04/24/24 History Aspirin 81 mg PO DAILY@79904/24/24 04/24/24 History Loperamide [Imodium] 2 - 4 mg PO DIRECTED PRN 04/24/24 04/24/24 History Sennosides/Docusate Sodium 2 tab PO HS@199904/24/24 04/24/24 History [Senna-S 8.6-50 mg Tablet] Furosemide [Lasix] 40 mg PO DAILY #30 tab 04/26/24 Rx Metoprolol Tartrate [Lopressor] 25 mg PO BID #60 tab 04/26/24 Rx Pantoprazole Sodium [Protonix] 20 mg PO BID #60 tab 04/26/24 Rx Allergies Allergy/AdvReac Type Severity Reaction Status Date / Time morphine Allergy Anaphylaxis Verified 04/24/24 12:29 Penicillins Allergy Swelling Verified 04/24/24 12:29 on entire body Influenza Virus Vaccines AdvReac Unknown Verified 04/24/24 12:29 pneumococcal vaccine AdvReac Unknown Verified 04/24/24 12:29 Physical Exam Vitals: Vital Signs Temp Pulse Resp BP Pulse Ox 04/24/24 08:50 90 26 H 141/73 100 04/24/24 06:59 93 04/24/24 06:43 88 22 135/77 100 04/24/24 06:42 86 04/24/24 06:26 93 24 130/101 94 L 04/24/24 06:20 97.7 F 92 22 140/125 96 Intake and Output 04/23/24 04/24/24 04/24/24 22:59 06:59 14:59 Other: Weight 72.575 kg Results CBC & Chem 7: 04/24/24 06:39 04/26/24 03:34 Labs: Abnormal Lab Results - Last 24 Hours (Table) 04/24/24 04/24/24 Range/Units 06:39 06:39 WBC 13.7 H (3.8-10.6) k/uL RDW 17.2 H (11.5-15.5) % Neutrophils # 11.4 H (1.3-7.7) k/uL Chloride 109 H (98-107) mmol/L BUN 21 H (9-20) mg/dL Creatinine 1.35 H (0.66-1.25) mg/dL Glucose 146 H (74-99) mg/dL
[2024-04-24] MEDS ORDERED: IPRATROPIUM-ALBUTEROL 3 ML NEB INHALATION SCH (12:00)
[2024-04-24] MEDS: IPRATROPIUM-ALBUTEROL 3 ML NEB INHALATION SCH (12:06)
[2024-04-24] MEDS: carvediloL 3.125 MG TAB PO SCH (17:06)
[2024-04-24] MEDS: FAMOTIDINE 20 MG TAB PO SCH (17:06)
[2024-04-24] MEDS ORDERED: BUDESONIDE 0.5 MG/2 ML NEBU INHALATION SCH (18:00)
[2024-04-24] MEDS: SYMBICORT 160-4.5 MCG INHALER INHALATION SCH (19:37)
[2024-04-24] MEDS: TICAGRELOR 90 MG TAB PO SCH (20:37)
[2024-04-24] MEDS: MELATONIN 5 MG TABLET PO SCH (20:37)
[2024-04-24] MEDS: ATORVASTATIN 40 MG TAB PO SCH (20:37)
[2024-04-24] MEDS: SUCRALFATE 1 GM TAB PO SCH (20:37)
[2024-04-24] MEDS: FUROSEMIDE 10 MG/ML 4 ML VIAL IV SCH (20:38)
[2024-04-25] MEDS: HYDROcodone/APAP 5-325MG 1 EACH TAB PO PRN (00:26)
[2024-04-25] MEDS: IPRATROPIUM-ALBUTEROL 3 ML NEB INHALATION PRN (01:41)
[2024-04-25] MEDS: ACETAMINOPHEN TAB 325 MG TAB PO PRN (02:22)
[2024-04-25] MEDS: LEVOTHYROXINE 100 MCG TAB PO SCH (05:39)
[2024-04-25] MEDS: ESCITALOPRAM 20 MG TAB PO SCH (09:20)
[2024-04-25] MEDS: ASPIRIN 81 MG PO SCH (09:20)
[2024-04-25] MEDS: DAPAGLIFLOZIN PROPANEDIOL 10 MG TABLET PO SCH (09:20)
[2024-04-25] MEDS: LOSARTAN 25 MG TAB PO SCH (09:20)
[2024-04-25] MEDS: FOLIC ACID 1 MG TAB PO SCH (09:20)
[2024-04-25] MEDS: ENOXAPARIN 40 MG/0.4 ML SYRINGE SQ SCH (09:21)
--- NOTE | 2024-04-25 09:45 | P.CRDCN ---
History of Present Illness History of present illness: HISTORY OF PRESENT ILLNESS: This is a 73-year-old male with a past medical history significant for coronary artery disease with previous CABG and subsequent stenting, congestive heart brittany lure, hypertension, hyperlipidemia, seizure disorder, ischemic cardiomyopathy, AICD implantation, AAA repair, and COPD. Patient follows in the office with Dr. Smith. We have been asked to see the patient in consultation for congestive heart failure. Patient examined at the bedside. Patient states he presented to the hospital for chief complaint of shortness of breath. Patient states that he is having panic attacks at home which then trigger his shortness of breath. The patient was found to be in acute CHF and was started on IV diuretics. He does report improvement in his shortness of breath this morning. He states that he has been receiving breathing treatments here which have helped. He currently denies any chest pain or pressure. DIAGNOSTICS: - EKG reveals sinus mechanism with no signs of acute ischemia. Q waves noted inferiorly. Frequent PVCs. - Chest xray interstitial prominence with small right-sided pleural effusion - Laboratory data: WBC 13.7. Hemoglobin 14.0. Platelet count 216. Sodium 142. Potassium 5.1. BUN 21. Creatinine 1.37. Lactic acid 1.8. Troponin negative. proBNP 5110. - Current home cardiac medications include carvedilol 3.125 mg twice a day, Brilinta 90 mg twice a day, losartan 25 mg daily, Farxiga 10 mg daily, atorvastatin 40 mg at night, aspirin 81 mg daily - Most recent echocardiogram obtained in September 2023 revealing EF 25 to 30%, m oderate LVH, moderate to severe MR, mild tricuspid regurgitation - Cardiac catheterization history: September 2023 with PCI of the SVG to diagonal REVIEW OF SYSTEMS: At the time of my exam: CONSTITUTIONAL: Denies fever or chills. HEENT: Denies blurred vision, vision changes, or eye pain. Denies hemoptysis CARDIOVASCULAR: Denies chest pain. Denies orthopnea. Denies PND. Denies palpitations RESPIRATORY: Denies shortness of breath. GASTROINTESTINAL: Denies abdominal pain. Denies nausea or vomiting. HEMATOLOGIC: Denies bleeding disorders. GENITOURINARY: Denies any blood in urine. SKIN: Denies pruitis. Denies rash. PHYSICAL EXAM: VITAL SIGNS: Reviewed. GENERAL: Well-developed in no acute distress. HEENT: Head is normocephalic. Pupils are equal, round. Sclerae anicteric. Mucous membranes of the mouth are moist. Neck supple. No JVD or thyromegaly LUNGS: Respirations even and unlabored. Lungs with bilateral rhonchi noted HEART: Regular rate and rhythm. S1 and S2 heard. Systolic murmur noted at the apex ABDOMEN: Soft. Nondistended. Nontender. EXTREMITIES: Normal range of motion. No clubbing or cyanosis. Peripheral pulses intact. No lower extremity edema NEUROLOGIC: Awake and alert. Oriented x 3. ASSESSMENT: Shortness of breath Acute on chronic heart failure with reduced EF, 25 to 30% Coronary artery disease status post CABG in 1995 and subsequent stenting of SVG to diagonal, 09/2023 Ischemic cardiomyopathy History of AICD implantation Hypertension Hyperlipidemia History of AAA repair History of COPD History of seizure disorder PLAN: Obtain 2D echo to assess cardiac structure and function Resume home cardiac medications Continue IV Lasix 40 mg every 12 hours Daily weights, accurate intake and output, and monitoring of kidney function Will consider adding Aldactone pending trend of kidney function Further recommendations pending patient course Nurse practitioner note has been reviewed by physician. Signing provider agrees with the documented findings, assessment, and plan of care documented by RECRUITER MANAGER as a scribe. Past Medical History Past Medical History: Coronary Artery Disease (CAD), Heart Failure, COPD, Dementia, Hyperlipidemia, Hypertension, Myocardial Infarction ([place]), Seizure Disorder, Syncope, Thyroid Disorder Additional Past Medical History / Comment(s): Ischemic cardiomyopathy, EF 20- 25%, last seizure about 2 yrs ago, hypothyroid.neuropathy "WHEN HE WORKED HE HAD A CRUSHING INJURY -COLLAPSED LUNGS C/T AND HAS CHRONIC BACK PAIN"" pt states he is schizophrenic/bipolar. TRIPLE A REPAIR AUG 2022 Last Myocardial Infarction Date:: unk History of Any Multi-Drug Resistant Organisms: None Reported Past Surgical History: AICD, Back Surgery, Coronary Bypass/CABG, Heart Catheterization, Heart Catheterization With Stent Additional Past Surgical History / Comment(s): 1995 CABG 4 vessel in [place], has had 2"HEART CATHS/had 2 STENTS after cabg sx.pt stated they were done in [facility]. "sx on tailbone, cortisone injections, devin inguinal hernia repair Past Anesthesia/Blood Transfusion Reactions: No Reported Reaction Date of Last Stent Placement:: 1995 Type of Cardiac Device: AICD Device Placement Date:: [address] [facility] Past Psychological History: Anxiety, Depression, Schizoaffective Disorder, Schizophrenia Smoking Status: Current every day smoker Past Alcohol Use History: None Reported Past Drug Use History: None Reported - Past Family History Mother Family Medical History: Respiratory Disorder Additional Family Medical History / Comment(s): Mother had TB Father Additional Family Medical History / Comment(s): Father was an alcoholic, was kil led in a motor vehicle accident Medications and Allergies Home Medications Medication Instructions Recorded Confirmed Type Cyanocobalamin (Vitamin B-12) 1,000 mcg PO DAILY@0800 08/23/22 04/24/24 History [Vitamin B-12] Sucralfate [Carafate] 1 gm PO BID@0800,199908/23/22 04/24/24 History Famotidine [Pepcid] 20 mg PO BID@0700,1700 08/31/22 04/24/24 History Acetaminophen [Tylenol 8 Hour] 650 mg PO TID@0800,1400,199909/17/23 04/24/24 History Atorvastatin Calcium [Lipitor] 40 mg PO HS@199909/17/23 04/24/24 History Folic Acid 0.4 mg PO DAILY@0800 09/17/23 04/24/24 History Levothyroxine Sodium [Synthroid] 100 mcg PO DAILY@0709/17/23 04/24/24 History Mirtazapine 30 mg PO HS@199909/17/23 04/24/24 History carvediloL [Coreg] 3.125 mg PO BID@0800,1700 09/17/23 04/24/24 History Nitroglycerin Sl Tabs [Nitrostat] 0.4 mg SUBLINGUAL Q5M PRN 90 Days 09/21/23 04/24/24 Rx #100 tab Budesonide-Formot 160-4.5 Mcg 2 puff INHALATION RT-BID@799,199910/16/23 04/24/24 History [Symbicort 160-4.5 Mcg Inhaler] Dapagliflozin Propanediol [Farxiga] 10 mg PO DAILY@00 10/16/23 04/24/24 History Losartan [Cozaar] 25 mg PO DAILY@79910/16/23 04/24/24 History Ticagrelor [Brilinta] 90 mg PO BID@0800,199910/16/23 04/24/24 History oxyCODONE-APAP 5-325MG [Percocet 1 tab PO Q4H PRN 10/16/23 04/24/24 History 5-325 mg] Budesonide 0.5 mg INHALATION RT-BID@0900,1800 03/03/24 04/24/24 History Escitalopram [Lexapro] 20 mg PO DAILY@0800 04/09/24 04/24/24 History HYDROcodone/APAP 5-325MG [[place] 1 tab PO Q6HR PRN #10 tab 04/10/24 04/24/24 Rx 5-325] Ipratropium-Albuterol Nebulize 3 ml INHALATION RT-QID 04/13/24 04/24/24 History [Duoneb 0.5 mg-3 mg/3 ml Soln] Melatonin 5 mg PO HS@199904/13/24 04/24/24 History Aspirin 81 mg PO DAILY@00 04/24/24 04/24/24 History Loperamide [Imodium] 2 - 4 mg PO DIRECTED PRN 04/24/24 04/24/24 History Sennosides/Docusate Sodium 2 tab PO HS@199904/24/24 04/24/24 History [Senna-S 8.6-50 mg Tablet] Allergies Allergy/AdvReac Type Severity Reaction Status Date / Time morphine Allergy Anaphylaxis Verified 04/24/24 12:29 Penicillins Allergy Swelling Verified 04/24/24 12:29 on entire body Influenza Virus Vaccines AdvReac Unknown Verified 04/24/24 12:29 pneumococcal vaccine AdvReac Unknown Verified 04/24/24 12:29 Physical Exam Vitals: Vital Signs Temp Pulse Pulse Resp BP BP Pulse Ox 04/25/24 08:02 60 04/25/24 07:48 56 L 04/25/24 07:00 97.5 F L 79 16 112/68 98 04/25/24 02:00 97.6 F 78 18 113/72 97 04/25/24 01:53 77 04/25/24 01:41 62 04/24/24 19:49 74 04/24/24 19:37 74 04/24/24 19:33 97.4 F L 56 L 16 104/61 100 04/24/24 18:31 97.3 F L 72 16 150/66 98 04/24/24 17:13 97.5 F L 84 18 140/88 97 04/24/24 17:03 85 18 139/91 98 04/24/24 16:03 75 04/24/24 15:55 85 04/24/24 12:24 83 04/24/24 12:08 82 04/24/24 11:08 76 18 136/78 98 Intake and Output 04/24/24 04/25/24 04/25/24 22:59 06:59 14:59 Output Total 300 Balance -300 Output: Urine 300 Other: # Voids 4 Results 04/24/24 06:39 04/24/24 06:39 Current Medications Generic Name Dose Route Start Last Admin Trade Name Freq PRN Reason Stop Dose Admin Acetaminophen 650 mg 04/24/24 09:00 04/25/24 09:20 Acetaminophen Tab 325 Mg Tab PO 650 mg Q6HR PRN Administration Mild Pain or Fever > 100.5 Hydrocodone Bitart/Acetaminophen 1 each 04/24/24 11:21 04/25/24 05:39 Hydrocodone/Apap 5-325mg 1 Each Tab PO 1 each Q6HR PRN Administration Pain Albuterol/Ipratropium 3 ml 04/24/24 11:21 04/25/24 01:41 Ipratropium-Albuterol 3 Ml Neb INHALATION 3 ml RT-Q4H PRN Administration WHEEZING/SHORTNESS OF BREATH Albuterol/Ipratropium 3 ml 04/24/24 12:00 04/25/24 07:48 Ipratropium-Albuterol 3 Ml Neb INHALATION 3 ml RT-QID@08,12,16,20 RAD[facility] Administration Aspirin 81 mg 04/25/24 08:00 04/25/24 09:20 Aspirin 81 Mg PO 81 mg DAILY@08 RADHA Administration Atorvastatin Calcium 40 mg 04/24/24 20:00 04/24/24 20:37 Atorvastatin 40 Mg Tab PO 40 mg HS@1999 [facility] Administration Budesonide/Formoterol Fumarate 2 puff 04/24/24 20:00 04/25/24 07:48 Symbicort 160-4.5 Mcg Inhaler INHALATION 2 puff RT-BID@ [facility] Administration Carvedilol 3.125 mg 04/24/24 17:00 04/25/24 09:20 Carvedilol 3.125 Mg Tab PO 3.125 mg BID@0800,1700 RAD[facility] Administration Dapagliflozin 10 mg 04/25/24 08:00 04/25/24 09:20 Dapagliflozin Propanediol 10 Mg Tablet PO 10 mg DAILY@0800 [facility] Administration Enoxaparin Sodium 40 mg 04/25/24 09:00 04/25/24 09:21 Enoxaparin 40 Mg/0.4 Ml Syringe SQ 40 mg DAILY [facility] Administration Escitalopram Oxalate 20 mg 04/25/24 08:00 04/25/24 09:20 Escitalopram 20 Mg Tab PO 20 mg DAILY@0800 [facility] Administration Famotidine 20 mg 04/24/24 17:00 04/25/24 05:39 Famotidine 20 Mg Tab PO 20 mg DAILY@0700 [facility] Administration Folic Acid 1 mg 04/25/24 08:00 04/25/24 09:20 Folic Acid 1 Mg Tab PO 1 mg DAILY@0800 [facility] Administration Furosemide 40 mg 04/24/24 21:00 04/25/24 09:21 Furosemide 10 Mg/Ml 4 Ml Vial IV 40 mg Q12HR RADHA Administration Levothyroxine Sodium 100 mcg 04/25/24 07:00 04/25/24 05:39 Levothyroxine 100 Mcg Tab PO 100 mcg DAILY@0700 [facility] Administration Losartan Potassium 25 mg 04/25/24 08:00 04/25/24 09:20 Losartan 25 Mg Tab PO 25 mg DAILY@0800 [facility] Administration Melatonin 5 mg 04/24/24 20:00 04/24/24 20:37 Melatonin 5 Mg Tablet PO 5 mg HS@1999 [facility] Administration Naloxone HCl 0.2 mg 04/24/24 09:00 Naloxone 0.4 Mg/Ml 1 Ml Vial IV Q2M PRN Opioid Reversal Ondansetron HCl 4 mg 04/24/24 09:00 Ondansetron 4 Mg/2 Ml Vial IVP Q8HR PRN Nausea And Vomiting Pantoprazole Sodium 40 mg 04/24/24 09:00 04/25/24 09:21 Pantoprazole 40 Mg/10 Ml Vial IV 40 mg DAILY [facility] Administration Sucralfate 1 gm 04/24/24 20:00 04/25/24 09:20 Sucralfate 1 Gm Tab PO 1 gm BID@ [facility] Administration Ticagrelor 90 mg 04/24/24 20:00 04/25/24 09:21 Ticagrelor 90 Mg Tab PO 90 mg BID@0800,1999 [facility] Administration Intake and Output 04/24/24 04/25/24 04/25/24 22:59 06:59 14:59 Output Total 300 Balance -300 Output: Urine 300 Other: # Voids 4 04/24/24 06:39 04/24/24 06:39
--- NOTE | 2024-04-25 10:59 | CA ---
Transthoracic Echo Report Name: Magaly Morales Age: 73 Gender: M : 1950 Exam Date: 04/25/2024 09:33 Exam Location: [facility] Ht (in): 65 Wt (lb): 160 Ordering Physician: Eneida Toney Attending/Referring Phys: [id number], Dawna Marketing Director Assisted Living Tuyet Jerez RDCS Procedure CPT: Indications: LV function, CHF Cardiac Hx: Technical Quality: Technically difficult study Contrast 1: Definity Total Dose (mL): 2 Contrast 2: Total Dose (mL): MEASUREMENTS (Male / Female) Normal Values 2D ECHO LV Diastolic Diameter PLAX 6.1 cm 4.2 - 5.9 / 3.9 - 5.3 cm LV Systolic Diameter PLAX 5.6 cm IVS Diastolic Thickness 1.0 cm 0.6 - 1.0 / 0.6 - 0.9 cm LVPW Diastolic Thickness 0.8 cm 0.6 - 1.0 / 0.6 - 0.9 cm LV Relative Wall Thickness 0.3 LVOT Diameter 2.3 cm LV Diastolic Volume MOD BP 174.1 cm??? 67 - 155 / 56 - 104 cm??? LV Systolic Volume MOD BP 117.7 cm??? 22 - 58 / 19 - 49 cm??? LV Ejection Fraction MOD BP 32.4 % >= 55 % LV Cardiac Index MOD BP 1809.1 cm???/min???m??? LV Diastolic Volume MOD 4C 186.9 cm??? LV Systolic Volume MOD 4C 138.6 cm??? LV Ejection Fraction MOD 4C 25.8 % LV Cardiac Index MOD 4C 1549.0 cm???/min???m??? LV Diastolic Length 4C 8.5 cm LV Systolic Length 4C 7.5 cm LV Diastolic Volume MOD 2C 159.0 cm??? LV Systolic Volume MOD 2C 97.8 cm??? LV Ejection Fraction MOD 2C 38.5 % LV Cardiac Index MOD 2C 1963.7 cm???/min???m??? LV Diastolic Length 2C 8.7 cm LV Systolic Length 2C 7.3 cm LA Volume 126.3 cm??? 18 - 58 / 22 - 52 cm??? LA Volume Index 68.6 cm???/m??? 16 - 28 cm???/m??? Ascending Aorta Diameter 3.5 cm DOPPLER AV Peak Velocity 96.9 cm/s AV Peak Gradient 3.8 mmHg AV Mean Velocity 70.5 cm/s AV Mean Gradient 2.2 mmHg AV Velocity Time Integral 20.5 cm LVOT Peak Velocity 82.8 cm/s LVOT Peak Gradient 2.7 mmHg LVOT Velocity Time Integral 15.7 cm LVOT Stroke Volume 67.4 cm??? LVOT Stroke Volume Index 37.5 ml/m??? LVOT Cardiac Index 2162.3 cm???/min???m??? AV Area Cont Eq vti 3.3 cm??? AV Area Cont Eq pk 3.7 cm??? MV Area PHT 3.3 cm??? MR Flow Rate PISA 38.0 cm???/s Mitral E Point Velocity 51.8 cm/s Mitral A Point Velocity 35.2 cm/s Mitral E to A Ratio 1.5 MV Deceleration Time 226.7 ms PV Peak Velocity 60.2 cm/s PV Peak Gradient 1.5 mmHg FINDINGS Left Ventricle Left ventricular ejection fraction is estimated at 15-20 %. Mildly increased left ventricular diastolic diameter. Mildly increased left ventricular diastolic volume. Severely increased left ventricular systolic volume. Moderately decreased left ventricular ejection fraction with severe global hypokinesis with regional variability. Right Ventricle Right ventricle not well visualized. Right Atrium Right atrium not well visualized. Left Atrium Severely increased left atrial volume. Moderately increased left atrial area. Mitral Valve Structurally normal mitral valve. No evidence for mitral valve prolapse. No mitral stenosis. Moderate mitral regurgitation. Aortic Valve Trileaflet aortic valve. No aortic valve stenosis or regurgitation. Tricuspid Valve Structurally normal tricuspid valve. No tricuspid stenosis. Trace tricuspid regurgitation. Pulmonic Valve Pulmonic valve not well visualized. No pulmonic stenosis. Trace pulmonic regurgitation. Pericardium No pericardial effusion. Aorta Normal size aortic root and proximal ascending aorta. CONCLUSIONS Severe LV systolic dysfunction Moderate left atrial enlargement Moderate mitral regurgitation Previewed by: Dr. Kenn Casillas MD (Electronically Signed) Final Date: 25 April 2024 10:59
--- NOTE | 2024-04-25 17:09 | P.PN ---
Progress Note - Text Progress Note Date: 04/25/24 History of Presenting Illness: Patient is a very pleasant 73-year-old male with a past medical history of CAD status post CABG x 4 followed by stent placement x 2, nonischemic cardiomyopathy status post AICD placement, hypertension, hyperlipidemia, COPD, hypothyroidism, anxiety with depression, schizoaffective disorder, schizophrenia, and nicotine dependence. He presented to the emergency department from [facility] with a chief complaint of shortness of breath. Patient reports initially started a couple days ago and progressively worsened. He denies having cough or congestion, fevers, chills, diaphoresis, palpitations, chest pain, nausea, vomiting, or experiencing any numbness/tingling/weakness/swelling in his extremities. On arrival to our facility, patient underwent evaluation in the emergency department. Vital signs upon arrival show blood pressure 140/125, heart rate 92, respiratory rate 22, temp 97.7 F, and SpO2 of 96% on 3 L. EKG completed showing normal sinus rhythm with frequent PVCs and pronounced Q waves in inferior leads II, III, and aVF. Chest x-ray completed showing interstitial prominence with small right sided pleural effusion. Labs completed and reviewed. CBC showing leukocytosis with WBC count of 13.7. Coagulation profile normal findings. BMP showing hyperchloremia with chloride of 109 and mildly elevated renal function with BUN of 21, creatinine of 1.35, GFR 52 with baseline creatinine of 1.2. Blood glucose was 146. Liver profile unremarkable. Troponin was 0.017, and proBNP was 5110. Influenza A, influenza B, RSV, and COVID PCR was negative. Patient admitted under our services with consultation to cardiology. April 25: Patient up in recliner. Breathing better. Eating fair. Had a bowel movement. No edema. 2 L nasal cannula. Will titrate down oxygen. 99% pulse ox. On IV Lasix per cardiology. Discussed with patient. Active Medications Acetaminophen (Acetaminophen Tab 325 Mg Tab) 650 mg PO Q6HR PRN PRN Reason: Mild Pain or Fever > 100.5 Last Admin: 04/25/24 09:20 Dose: 650 mg Hydrocodone Bitart/Acetaminophen (Hydrocodone/Apap 5-325mg 1 Each Tab) 1 each PO Q6HR PRN PRN Reason: Pain Last Admin: 04/25/24 05:39 Dose: 1 each Albuterol/Ipratropium (Ipratropium-Albuterol 3 Ml Neb) 3 ml INHALATION RT-Q4H PRN PRN Reason: WHEEZING/SHORTNESS OF BREATH Last Admin: 04/25/24 01:41 Dose: 3 ml Albuterol/Ipratropium (Ipratropium-Albuterol 3 Ml Neb) 3 ml INHALATION RT- QID@08,12,16,20 [facility] Last Admin: 04/25/24 14:57 Dose: 3 ml Aspirin (Aspirin 81 Mg) 81 mg PO DAILY@0800 [facility] Last Admin: 04/25/24 09:20 Dose: 81 mg Atorvastatin Calcium (Atorvastatin 40 Mg Tab) 40 mg PO HS@1999 [facility] Last Admin: 04/24/24 20:37 Dose: 40 mg Budesonide/Formoterol Fumarate (Symbicort 160-4.5 Mcg Inhaler) 2 puff INHALATION RT-BID@ [facility] Last Admin: 04/25/24 07:48 Dose: 2 puff Carvedilol (Carvedilol 3.125 Mg Tab) 3.125 mg PO BID@0800,1700 [facility] Last Admin: 04/25/24 16:34 Dose: 3.125 mg Dapagliflozin (Dapagliflozin Propanediol 10 Mg Tablet) 10 mg PO DAILY@0800 [facility] Last Admin: 04/25/24 09:20 Dose: 10 mg Enoxaparin Sodium (Enoxaparin 40 Mg/0.4 Ml Syringe) 40 mg SQ DAILY [facility] Last Admin: 04/25/24 09:21 Dose: 40 mg Escitalopram Oxalate (Escitalopram 20 Mg Tab) 20 mg PO DAILY@0800 [facility] Last Admin: 04/25/24 09:20 Dose: 20 mg Famotidine (Famotidine 20 Mg Tab) 20 mg PO DAILY@0700 [facility] Last Admin: 04/25/24 05:39 Dose: 20 mg Folic Acid (Folic Acid 1 Mg Tab) 1 mg PO DAILY@0800 [facility] Last Admin: 04/25/24 09:20 Dose: 1 mg Furosemide (Furosemide 10 Mg/Ml 4 Ml Vial) 40 mg IV Q12HR [facility] Last Admin: 04/25/24 09:21 Dose: 40 mg Levothyroxine Sodium (Levothyroxine 100 Mcg Tab) 100 mcg PO DAILY@0700 [facility] Last Admin: 04/25/24 05:39 Dose: 100 mcg Losartan Potassium (Losartan 25 Mg Tab) 25 mg PO DAILY@799 [facility] Last Admin: 04/25/24 09:20 Dose: 25 mg Melatonin (Melatonin 5 Mg Tablet) 5 mg PO HS@1999 [facility] Last Admin: 04/24/24 20:37 Dose: 5 mg Naloxone HCl (Naloxone 0.4 Mg/Ml 1 Ml Vial) 0.2 mg IV Q2M PRN PRN Reason: Opioid Reversal Ondansetron HCl (Ondansetron 4 Mg/2 Ml Vial) 4 mg IVP Q8HR PRN PRN Reason: Nausea And Vomiting Pantoprazole Sodium (Pantoprazole 40 Mg/10 Ml Vial) 40 mg IV DAILY [facility] Last Admin: 04/25/24 09:21 Dose: 40 mg Sucralfate (Sucralfate 1 Gm Tab) 1 gm PO BID@ [facility] Last Admin: 04/25/24 09:20 Dose: 1 gm Ticagrelor (Ticagrelor 90 Mg Tab) 90 mg PO BID@ [facility] Last Admin: 04/25/24 09:21 Dose: 90 mg On examination: VITAL SIGNS: [97.4, 62, 16, 100/60, 99% 2 L] GENERAL APPEARANCE: Up in a recliner, comfortable. HEENT: Normal external appearance of nose and ear. Oral cavity normal, decreased air EYES: Pupils equal. Conjunctiva normal. NECK: JVD not raised. Mass not palpable. RESPIRATORY: Respiratory effort normal. Lungs breath sounds the base. CARDIOVASCULAR: First and second sounds normal. No edema. ABDOMEN: Soft. Liver and spleen not palpable. No tenderness. No mass palpable. PSYCHIATRY: Alert and oriented x3. Mood and affect normal. INVESTIGATIONS, reviewed in the clinical context: April: White count 3.7 hemoglobin 14 platelets 216 sodium 142 potassium 5.1 BUN 21 creatinine 1.35 Troponin I 0.017 Influenza type A, type B, RSV, COVID-19: Not detected 2D echocardiogram: EF 15 to 20%. Global hypokinesia. Moderate mitral regurgitation. Chest x-ray: Interstitial prominence. Right small pleural effusion Assessment and Plan -Acute on chronic systolic heart failure exacerbation, secondary to ischemic systolic dysfunction EF 15 to 20% IV Lasix. 40 mg every 12. Cardiology following -Moderate mitral regurgitation -CAD status post CABG x 4 and stent placement x 2 Brilinta, Cozaar, Coreg, aspirin, Lipitor -Essential hypertension Cozaar -Hyperlipidemia Lipitor -Hypothyroidism Continue levothyroxine 100 mcg daily. COPD, not in acute exacerbation -Continue Symbicort twice daily, scheduled nebulizer treatments 4 times daily a nd as needed for shortness of breath/wheezing. -Full code -Anticipated disposition: [facility] CODE STATUS: Full code Past Medical History Past Medical History: Coronary Artery Disease (CAD), Heart Failure, COPD, Dementia, Hyperlipidemia, Hypertension, Myocardial Infarction ([place]), Seizure Disorder, Syncope, Thyroid Disorder Additional Past Medical History / Comment(s): Ischemic cardiomyopathy, EF 20- 25%, last seizure about 2 yrs ago, hypothyroid.neuropathy "WHEN HE WORKED HE HAD A CRUSHING INJURY -COLLAPSED LUNGS C/T AND HAS CHRONIC BACK PAIN"" pt states he is schizophrenic/bipolar. TRIPLE A REPAIR AUG 2022 Last Myocardial Infarction Date:: unk History of Any Multi-Drug Resistant Organisms: None Reported Past Surgical History: AICD, Back Surgery, Coronary Bypass/CABG, Heart Catheterization, Heart Catheterization With Stent Additional Past Surgical History / Comment(s): 1995 CABG 4 vessel in [place], has had 2"HEART CATHS/had 2 STENTS after cabg sx.pt stated they were done in [facility]. "sx on tailbone, cortisone injections, devin inguinal hernia repair Past Anesthesia/Blood Transfusion Reactions: No Reported Reaction Date of Last Stent Placement:: 1995 Type of Cardiac Device: AICD Device Placement Date:: [address] [facility] Past Psychological History: Anxiety, Depression, Schizoaffective Disorder, Schizophrenia Smoking Status: Current every day smoker Past Alcohol Use History: None Reported Past Drug Use History: None Reported
[2024-04-26 04:52] LABS: African American GFR (CKD) 53 (>60 ml/min/1.73 sqM); Anion Gap 9 mmol/L; Blood Urea Nitrogen 34 mg/dL (9-20); Calcium 8.8 mg/dL (8.4-10.2); Carbon Dioxide 24 mmol/L (22-30); Chloride 98 mmol/L (98-107); Glucose 85 mg/dL (74-99); Non-African American GFR(CKD) 46 (>60 ml/min/1.73 sqM); Sodium 131 mmol/L (137-145)
[2024-04-26 06:35] LABS: Glucose,Whole Blood 106 mg/dL (70-110)
[2024-04-26 07:26] VITALS: BP 98/61; PULSE 68; TEMP 96.6
[2024-04-26] MEDS: METOPROLOL TARTRATE 25 MG TAB PO SCH (09:02)
--- NOTE | 2024-04-26 09:43 | P.PN ---
Subjective HISTORY OF PRESENT ILLNESS: This is a 73-year-old male with a past medical history significant for coronary artery disease with previous CABG and subsequent stenting, congestive heart failure, hypertension, hyperlipidemia, seizure disorder, ischemic cardiomyopathy, AICD implantation, AAA repair, and COPD. Patient follows in the office with Dr. Smith. We have been asked to see the patient in consultation for congestive heart failure. Patient examined at the bedside. Patient states he presented to the hospital for chief complaint of shortness of breath. Patient states that he is having panic attacks at home which then trigger his shortness of breath. The patient was found to be in acute CHF and was started on IV diuretics. He does report improvement in his shortness of breath this morning. He states that he has been receiving breathing treatments here which have helped. He currently denies any chest pain or pressure. DIAGNOSTICS: - EKG reveals sinus mechanism with no signs of acute ischemia. Q waves noted inferiorly. Frequent PVCs. - Chest xray interstitial prominence with small right-sided pleural effusion - Laboratory data: WBC 13.7. Hemoglobin 14.0. Platelet count 216. Sodium 142. Potassium 5.1. BUN 21. Creatinine 1.37. Lactic acid 1.8. Troponin negative. proBNP 5110. - Current home cardiac medications include carvedilol 3.125 mg twice a day, Brilinta 90 mg twice a day, losartan 25 mg daily, Farxiga 10 mg daily, atorvastatin 40 mg at night, aspirin 81 mg daily - Most recent echocardiogram obtained in September 2023 revealing EF 25 to 30%, moderate LVH, moderate to severe MR, mild tricuspid regurgitation - Cardiac catheterization history: September 2023 with PCI of the SVG to diagonal 04/26/2024 Patient examined this or the bedside. Patient currently denies chest pain or pressure. He denies shortness of breath. He remains on IV diuretics. Creatinine this morning increased to 1.50. Per nursing, patient was apparently having some episodes of anxiety overnight that seem to correlate with frequent PVCs.echocardiogram completed revealing ejection fraction 15-20% with moderate MR PHYSICAL EXAM: VITAL SIGNS: Reviewed. GENERAL: Well-developed in no acute distress. HEENT: Head is normocephalic. Pupils are equal, round. Sclerae anicteric. Mucous membranes of the mouth are moist. Neck supple. No JVD or thyromegaly LUNGS: Respirations even and unlabored. Lungs diminished bilaterally HEART: Regular rate and rhythm. S1 and S2 heard. Systolic murmur noted at the apex ABDOMEN: Soft. Nondistended. Nontender. EXTREMITIES: Normal range of motion. No clubbing or cyanosis. Peripheral pul ses intact. No lower extremity edema NEUROLOGIC: Awake and alert. Oriented x 3. ASSESSMENT: Shortness of breath Acute on chronic heart failure with reduced EF, 25 to 30%, now 15-20% Coronary artery disease status post CABG in 1995 and subsequent stenting of SVG to diagonal, 09/2023 Ischemic cardiomyopathy History of AICD implantation Hypertension Hyperlipidemia History of AAA repair History of COPD History of seizure disorder Frequent PVCs Anxiety Acute kidney injury PLAN: Discontinue IV Lasix Begin oral Lasix 40 mg daily Discontinue carvedilol. Begin metoprolol 25 mg twice a day Consider adding Aldactone when kidney function normalizes Continue additional cardiac medications Patient is stable for discharge today from a cardiac standpoint Further recommendations pending patient course Nurse practitioner note has been reviewed by physician. Signing provider agrees with the documented findings, assessment, and plan of care documented by COOK PIE as a scribe. Objective - Vital Signs Vital signs: Vital Signs Temp 96.6 F L 04/26/24 07:00 Pulse 68 04/26/24 09:06 Resp 21 04/26/24 07:00 BP 98/61 04/26/24 07:00 Pulse Ox 98 04/26/24 07:00 FiO2 Intake & Output 04/25/24 04/26/24 04/26/24 18:59 06:59 18:59 Intake Total 118 0 Output Total 1100 750 Balance -982 -750 0 Weight 65.6 kg Intake: Oral 118 0 Output: Urine 1100 750 Other: # Voids 150 - Labs CBC & Chem 7: 04/24/24 06:39 04/26/24 03:34 Labs: Abnormal Lab Results - Last 24 Hours (Table) 04/26/24 Range/Units 03:34 Sodium 131 L (137-145) mmol/L BUN 34 H (9-20) mg/dL Creatinine 1.50 H (0.66-1.25) mg/dL
[2024-04-26 10:40] VITALS: RESP 18
--- NOTE | 2024-04-26 19:28 | P.DS ---
Providers Date of admission: 04/24/24 09:02 Expected date of discharge: 04/26/24 Attending physician: Juan Bhatt Consults: 04/24/24 09:00 Consult Physician Urgent Consulting Provider: Pal Glover Consult Reason/Comments: CHF exacerbation Do you want consulting provider notified?: Yes Primary care physician: [facility] Course: History of Presenting Illness: Patient is a very pleasant 73-year-old male with a past medical history of CAD status post CABG x 4 followed by stent placement x 2, nonischemic cardiomyopathy status post AICD placement, hypertension, hyperlipidemia, COPD, hypothyroidism, anxiety with depression, schizoaffective disorder, schizophrenia, and nicotine dependence. He presented to the emergency department from [facility] with a chief complaint of shortness of breath. Patient reports initially started a couple days ago and progressively worsened. He denies having cough or congestion, fevers, chills, diaphoresis, palpitations, chest pain, nausea, vomiting, or experiencing any numbness/tingling/weakness/swelling in his extremities. On arrival to our facility, patient underwent evaluation in the emergency department. Vital signs upon arrival show blood pressure 140/125, heart rate 92, respiratory rate 22, temp 97.7 F, and SpO2 of 96% on 3 L. EKG completed showing normal sinus rhythm with frequent PVCs and pronounced Q waves in inferior leads II, III, and aVF. Chest x-ray completed showing interstitial prominence with small right sided pleural effusion. Labs completed and reviewed. CBC showing leukocytosis with WBC count of 13.7. Coagulation profile normal findings. BMP showing hyperchloremia with chloride of 109 and mildly elevated renal function with BUN of 21, creatinine of 1.35, GFR 52 with baseline creatinine of 1.2. Blood glucose was 146. Liver profile unremarkable. Troponin was 0.017, and proBNP was 5110. Influenza A, influenza B, RSV, and CO VID PCR was negative. Patient admitted under our services with consultation to cardiology. April 25: Patient up in recliner. Breathing better. Eating fair. Had a bowel movement. No edema. 2 L nasal cannula. Will titrate down oxygen. 99% pulse ox. On IV Lasix per cardiology. Discussed with patient. April 26: Breathing much better. Patient does have home oxygen. Has a public guardian. Cleared by cardiology. Switch to oral Lasix. Carafate discontinued because that will interfere with other medications absorption. Patient put on Protonix. Check BMP in 1 week already. Discussed with social worker health services Discussion and discharge planning more than 35 minutes On examination: VITAL SIGNS: 96.6, 68, 21, 98 per 61, 98% room air GENERAL APPEARANCE: Up in a recliner, comfortable. HEENT: Normal external appearance of nose and ear. Oral cavity normal, decreased air EYES: Pupils equal. Conjunctiva normal. NECK: JVD not raised. Mass not palpable. RESPIRATORY: Respiratory effort normal. Lungs fair air entry CARDIOVASCULAR: First and second sounds normal. No edema. ABDOMEN: Soft. Liver and spleen not palpable. No tenderness. No mass palpable. PSYCHIATRY: Alert and oriented x3. Mood and affect normal. INVESTIGATIONS, reviewed in the clinical context: April 26: Potassium 4 BUN 34 creatinine 1.5 April: White count 3.7 hemoglobin 14 platelets 216 sodium 142 potassium 5.1 BUN 21 creatinine 1.35 Troponin I 0.017 Influenza type A, type B, RSV, COVID-19: Not detected 2D echocardiogram: EF 15 to 20%. Global hypokinesia. Moderate mitral regurgitation. Chest x-ray: Interstitial prominence. Right small pleural effusion Assessment and Plan -Acute on chronic systolic heart failure exacerbation, secondary to ischemic systolic dysfunction EF 15 to 20%: Better IV Lasix. 40 mg every 12. Being discharged on Lasix 40 mg a day. Lopressor added Follow outpatient with cardiology -Moderate mitral regurgitation -CAD status post CABG x 4 and stent placement x 2 Brilinta, Cozaar, Coreg-discontinued, aspirin, Lipitor Lopressor added -Essential hypertension Lopressor. -Chronic kidney disease stage III likely nephrosclerosis -Hyperlipidemia Lipitor -Hypothyroidism Continue levothyroxine 100 mcg daily. COPD, not in acute exacerbation -Continue Symbicort twice daily, scheduled nebulizer treatments 4 times daily and as needed for shortness of breath/wheezing. -Chronic hypoxic respiratory failure from underlying COPD Home oxygen -Full code -Legal guardian-Isaiah Disposition: Assisted living-[facility] Labs: BMP in 1 week Past Medical History Past Medical History: Coronary Artery Disease (CAD), Heart Failure, COPD, Dementia, Hyperlipidemia, Hypertension, Myocardial Infarction (MS), Seizure Disorder, Syncope, Thyroid Disorder Additional Past Medical History / Comment(s): Ischemic cardiomyopathy, EF 20- 25%, last seizure about 2 yrs ago, hypothyroid.neuropathy "WHEN HE WORKED HE HAD A CRUSHING INJURY -COLLAPSED LUNGS C/T AND HAS CHRONIC BACK PAIN"" pt states he is schizophrenic/bipolar. TRIPLE A REPAIR AUG 2022 Last Myocardial Infarction Date:: unk History of Any Multi-Drug Resistant Organisms: None Reported Past Surgical History: AICD, Back Surgery, Coronary Bypass/CABG, Heart Catheterization, Heart Catheterization With Stent Additional Past Surgical History / Comment(s): 1995 CABG 4 vessel in [place], has had 2"HEART CATHS/had 2 STENTS after cabg sx.pt stated they were done in [facility]. "sx on tailbone, cortisone injections, devin inguinal hernia repair Past Anesthesia/Blood Transfusion Reactions: No Reported Reaction Date of Last Stent Placement:: 1995 Type of Cardiac Device: AICD Device Placement Date:: 1995 in [facility] Past Psychological History: Anxiety, Depression, Schizoaffective Disorder, Schizophrenia Smoking Status: Current every day smoker Past Alcohol Use History: None Reported Past Drug Use History: None Reported Plan - Discharge Summary Discharge Rx Participant: Yes New Discharge Prescriptions: New Furosemide [Lasix] 40 mg PO DAILY #30 tab Metoprolol Tartrate [Lopressor] 25 mg PO BID #60 tab Pantoprazole Sodium [Protonix] 20 mg PO BID #60 tab Continue Cyanocobalamin (Vitamin B-12) [Vitamin B-12] 1,000 mcg PO DAILY@0800 Acetaminophen [Tylenol 8 Hour] 650 mg PO TID@0800,1400,1999 Atorvastatin Calcium [Lipitor] 40 mg PO HS@1999 oxyCODONE-APAP 5-325MG [Percocet 5-325 mg] 1 tab PO Q4H PRN PRN Reason: Pain Ticagrelor [Brilinta] 90 mg PO BID@0800,2000 Budesonide-Formot 160-4.5 Mcg [Symbicort 160-4.5 Mcg Inhaler] 2 puff INHALATION RT-BID@0800,1999 Budesonide 0.5 mg INHALATION RT-BID@0900,1800 HYDROcodone/APAP 5-325MG [Columbus 5-325] 1 tab PO Q6HR PRN #10 tab PRN Reason: Pain Ipratropium-Albuterol Nebulize [Duoneb 0.5 mg-3 mg/3 ml Soln] 3 ml INHALATION RT-QID Folic Acid 0.4 mg PO DAILY@0800 Levothyroxine Sodium [Synthroid] 100 mcg PO DAILY@0700 Mirtazapine 30 mg PO HS@1999 Nitroglycerin Sl Tabs [Nitrostat] 0.4 mg SUBLINGUAL Q5M PRN 90 Days #100 tab PRN Reason: Chest Pain Losartan [Cozaar] 25 mg PO DAILY@0800 Dapagliflozin Propanediol [Farxiga] 10 mg PO DAILY@0800 Escitalopram [Lexapro] 20 mg PO DAILY@0800 Melatonin 5 mg PO HS@1999 Aspirin 81 mg PO DAILY@0800 Loperamide [Imodium] 2 - 4 mg PO DIRECTED PRN PRN Reason: Diarrhea Sennosides/Docusate Sodium [Senna-S 8.6-50 mg Tablet] 2 tab PO HS@1999 Discontinued Sucralfate [Carafate] 1 gm PO BID@0800,1999 Famotidine [Pepcid] 20 mg PO BID@0700,1700 carvediloL [Coreg] 3.125 mg PO BID@0800,1700 Discharge Medication List Cyanocobalamin (Vitamin B-12) [Vitamin B-12] 1,000 mcg PO DAILY@0800 08/23/22 [History] Acetaminophen [Tylenol 8 Hour] 650 mg PO TID@0800,1400,199909/17/23 [History] Atorvastatin Calcium [Lipitor] 40 mg PO HS@199909/17/23 [History] Folic Acid 0.4 mg PO DAILY@0800 09/17/23 [History] Levothyroxine Sodium [Synthroid] 100 mcg PO DAILY@0700 09/17/23 [History] Mirtazapine 30 mg PO HS@199909/17/23 [History] Nitroglycerin Sl Tabs [Nitrostat] 0.4 mg SUBLINGUAL Q5M PRN 90 Days #100 tab 09/21/23 [Rx] Budesonide-Formot 160-4.5 Mcg [Symbicort 160-4.5 Mcg Inhaler] 2 puff INHALATION RT-BID@0800,199910/16/23 [History] Dapagliflozin Propanediol [Farxiga] 10 mg PO DAILY@0800 10/16/23 [History] Losartan [Cozaar] 25 mg PO DAILY@0800 10/16/23 [History] Ticagrelor [Brilinta] 90 mg PO BID@0800,199910/16/23 [History] oxyCODONE-APAP 5-325MG [Percocet 5-325 mg] 1 tab PO Q4H PRN 10/16/23 [History] Budesonide 0.5 mg INHALATION RT-BID@0900,1800 03/03/24 [History] Escitalopram [Lexapro] 20 mg PO DAILY@0804/09/24 [History] HYDROcodone/APAP 5-325MG [Columbus 5-325] 1 tab PO Q6HR PRN #10 tab 04/10/24 [Rx] Ipratropium-Albuterol Nebulize [Duoneb 0.5 mg-3 mg/3 ml Soln] 3 ml INHALATION RT-QID 04/13/24 [History] Melatonin 5 mg PO HS@199904/13/24 [History] Aspirin 81 mg PO DAILY@79904/24/24 [History] Loperamide [Imodium] 2 - 4 mg PO DIRECTED PRN 04/24/24 [History] Sennosides/Docusate Sodium [Senna-S 8.6-50 mg Tablet] 2 tab PO HS@199904/24/24 [History] Furosemide [Lasix] 40 mg PO DAILY #30 tab 04/26/24 [Rx] Metoprolol Tartrate [Lopressor] 25 mg PO BID #60 tab 04/26/24 [Rx] Pantoprazole Sodium [Protonix] 20 mg PO BID #60 tab 04/26/24 [Rx] Follow up Appointment(s)/Referral(s): Mele Smith DO [STAFF PHYSICIAN] - 05/03/24 10:15 am (Keep previous appointment made.) Emile Trejo MD [Primary Care Provider] - 1-2 days Discharge Disposition: HOME WITH HOME HEALTH SERVICES
[2024-04-27] MEDS ORDERED: FUROSEMIDE 40 MG TAB PO SCH (09:00)
== END 2024-04-26 12:53 | disposition home health service (06) | DRG 291 ==
LOC: EC 06:12 → 6NMEDSUR 09:01 → OBSVTOIN 09:02 → 6NMEDSUR 10:29
PROVIDERS: ADMIT Hospitalist; ATTEND Hospitalist
DX: I13.0 Hypertensive heart and chronic kidney disease with heart failure and stage 1 through stage 4 chronic kidney disease, or unspecified chronic kidney disease (principal); I50.23 Acute on chronic systolic (congestive) heart failure; F03.93 Unspecified dementia, unspecified severity, with mood disturbance; F03.94 Unspecified dementia, unspecified severity, with anxiety; J96.11 Chronic respiratory failure with hypoxia; N17.9 Acute kidney failure, unspecified; F25.9 Schizoaffective disorder, unspecified; E87.8 Other disorders of electrolyte and fluid balance, not elsewhere classified; I42.8 Other cardiomyopathies; Z95.1 Presence of aortocoronary bypass graft; G40.909 Epilepsy, unspecified, not intractable, without status epilepticus; J44.9 Chronic obstructive pulmonary disease, unspecified; I34.0 Nonrheumatic mitral (valve) insufficiency; N18.30 Chronic kidney disease, stage 3 unspecified; E03.9 Hypothyroidism, unspecified; D72.829 Elevated white blood cell count, unspecified; E78.5 Hyperlipidemia, unspecified; F17.200 Nicotine dependence, unspecified, uncomplicated; I25.5 Ischemic cardiomyopathy; I25.10 Atherosclerotic heart disease of native coronary artery without angina pectoris; F41.8 Other specified anxiety disorders; F41.0 Panic disorder [episodic paroxysmal anxiety]; I25.2 Old myocardial infarction; I49.3 Ventricular premature depolarization; Z95.810 Presence of automatic (implantable) cardiac defibrillator; Z79.02 Long term (current) use of antithrombotics/antiplatelets; Z79.890 Hormone replacement therapy; Z79.84 Long term (current) use of oral hypoglycemic drugs; Z79.51 Long term (current) use of inhaled steroids; Z79.82 Long term (current) use of aspirin; Z79.899 Other long term (current) drug therapy; Z86.79 Personal history of other diseases of the circulatory system; Z95.5 Presence of coronary angioplasty implant and graft; Z88.5 Allergy status to narcotic agent; Z88.0 Allergy status to penicillin; Z88.7 Allergy status to serum and vaccine
CPT/HCPCS: 36415; 71046; 80048; 80053; 83605; 83880; 84484; 85025; 85610; 85730; 87636; 93005; 93306; 94640; 96374; 96375; 99285

== ENCOUNTER 2024-09-15 20:00 | Emergency (ER) | payer MEDICARE, OTHER ==
[2024-09-15 20:05] VITALS: TEMP 97.6
[2024-09-15] MEDS: HYDROmorphone 0.5 MG/0.5 ML SYRINGE IVP STA ×2 (20:43→22:50)
[2024-09-15] MEDS: ONDANSETRON 4 MG/2 ML VIAL IVP STA (20:44)
[2024-09-15] MEDS: SODIUM CHLORIDE 0.9% 500 ML 500 ML IV STA (20:44)
[2024-09-15 20:59] LABS: Anisocytosis Slight; Basophils % (A) 0 %; Eosinophils # (A) 0.1 k/uL (0-0.7); Eosinophils % (A) 2 %; HCT 40.1 % (39.0-53.0); HGB 12.9 gm/dL (13.0-17.5); Hypochromasia Slight; Lymphocytes # (A) 2.1 k/uL (1.0-4.8); Lymphocytes % (A) 33 %; MCH 28.3 pg (25.0-35.0); MCHC 32.1 g/dL (31.0-37.0); MCV 88.3 fL (80.0-100.0); Mean Platelet Volume 8.7; Monocytes # (A) 0.4 k/uL (0-1.0); Monocytes % (A) 6 %; Neutrophils # (A) 3.6 k/uL (1.3-7.7); Neutrophils % (A) 56 %; Platelet Count 122 k/uL (150-450); RBC 4.54 m/uL (4.30-5.90); RDW 16.2 % (11.5-15.5); WBC 6.4 k/uL (3.8-10.6)
[2024-09-15 21:11] LABS: ALT 23 U/L (4-49); AST 39 U/L (17-59); African American GFR (CKD) 46 (>60 ml/min/1.73 sqM); Albumin 4.4 g/dL (3.5-5.0); Alkaline Phosphatase 81 U/L (38-126); Amylase 104 U/L (30-110); Anion Gap 10 mmol/L; Blood Urea Nitrogen 32 mg/dL (9-20); Calcium 9.2 mg/dL (8.4-10.2); Carbon Dioxide 29 mmol/L (22-30); Chloride 103 mmol/L (98-107); Glucose 108 mg/dL (74-99); Lipase 233 U/L (23-300); Non-African American GFR(CKD) 40 (>60 ml/min/1.73 sqM); Potassium 3.9 mmol/L (3.5-5.1); Sodium 142 mmol/L (137-145); Total Bilirubin 0.5 mg/dL (0.2-1.3); Total Protein 7.1 g/dL (6.3-8.2)
[2024-09-15 21:13] LABS: INR 1.1 (<1.2); Partial Thromboplastin Time 26.3 sec (22.0-30.0); Prothrombin Time 11.9 sec (10.0-12.5)
--- NOTE | 2024-09-15 21:53 | CT ---
EXAMINATION TYPE: CT abdomen pelvis wo con DATE OF EXAM: 09/15/2024 9:40 PM COMPARISON: Previous CT abdomen/pelvis 04/12/2024. CLINICAL INDICATION: Male, 74 years old with history of abdominal pain; Abdominal pain, right lower r ib pain TECHNIQUE: Axial CT abdomen pelvis wo con;Sagittal and coronal reformats were created on a separate workstation. Oral contrast used: without Oral Contrast (none if empty) CT DLP: 454.6 mGycm, Automated exposure control for dose reduction was used. FINDINGS: Exam limited due to lack of IV contrast. LOWER CHEST: No acute pathology in the lungs. Cardiomegaly and AICD device lead in the right ventricl e partially visualized. Lower right ribs without evidence of acute fracture. Mediastinal wires noted. ABDOMEN LIVER: Unremarkable GALLBLADDER AND BILE DUCTS: Unremarkable. PANCREAS: Unremarkable. SPLEEN: Unremarkable. ADRENAL GLANDS: Unremarkable. KIDNEYS AND URETERS: No evidence of hydronephrosis or renal calculus. The ureters are unremarkable. Large simple appearing 5.6 MET exophytic cyst in the inferior right kidney. Renal vascular calcificat ions. Additional exophytic cystic lesion in the left kidney measuring 13 mm. PELVIS BLADDER: No evidence for wall thickening or mass given limitations of exam. REPRODUCTIVE: Unremarkable. ABDOMEN & PELVIS STOMACH AND BOWEL: Stomach and duodenum are unremarkable. Colonic diverticulosis. Liquid stool in the sigmoid colon with associated mild wall thickening (series 3 image 78). Appendix normal. PERITONEUM/RETROPERITONEUM: No evidence of pneumoperitoneum or free fluid. VASCULATURE: Calcified obstructive disease of the abdominal aorta with fusiform infrarenal abdominal aortic aneurysm status post aortobiiliac endovascular stent graft placement. Aneurysm measures approx imately 4.8 x 4.7 cm including the excluded sac. Endovascular stent graft visualized in the upper abd ominal aorta extending into the right renal artery. MUSCULOSKELETAL: No acute osseous abnormalities. Osseous structures demineralized. Lumbosacral spine degenerative changes. LYMPH NODES: No gross evidence for lymphadenopathy. SOFT TISSUE/ABDOMINAL WALL: Unremarkable IMPRESSION: 1. Colonic diverticulosis with liquid stool and short segment sigmoid colonic wall thickening sugges tive of diarrhea and either uncomplicated acute diverticulitis or mild infectious colitis. 2. Additional nonacute findings as above. [facility], , 09/15/2024 9:51 PM
--- NOTE | 2024-09-15 22:29 | ED ---
Abdominal Pain HPI - General Chief Complaint: Abdominal Pain Stated Complaint: abd pain Time Seen by Provider: 09/15/24 20:07 Source: EMS Mode of arrival: EMS - History of Present Illness Initial Comments: 74-year-old male presenting with chief complaint of abdominal pain. Pain is located primarily in the right upper quadrant. This is a sharp stabbing pain that has been ongoing since earlier today. He is having nausea with no vomiting. He is having normal bowel movements, no diarrhea, hematochezia, melena. No chest pain or difficulty breathing. No fevers or chills. - Related Data Home Medications Medication Instructions Recorded Confirmed Cyanocobalamin (Vitamin B-12) 1,000 mcg PO DAILY@0800 08/23/22 04/24/24 [Vitamin B-12] Acetaminophen [Tylenol 8 Hour] 650 mg PO TID@0800,1400,199909/17/23 04/24/24 Atorvastatin Calcium [Lipitor] 40 mg PO HS@199909/17/23 04/24/24 Folic Acid 0.4 mg PO DAILY@0800 09/17/23 04/24/24 Levothyroxine Sodium [Synthroid] 100 mcg PO DAILY@69909/17/23 04/24/24 Mirtazapine 30 mg PO HS@199909/17/23 04/24/24 Budesonide-Formot 160-4.5 Mcg 2 puff INHALATION RT-BID@799,199910/16/23 04/24/24 [Symbicort 160-4.5 Mcg Inhaler] Dapagliflozin Propanediol [Farxiga] 10 mg PO DAILY@79910/16/23 04/24/24 Losartan [Cozaar] 25 mg PO DAILY@79910/16/23 04/24/24 Ticagrelor [Brilinta] 90 mg PO BID@799,199910/16/23 04/24/24 oxyCODONE-APAP 5-325MG [Percocet 1 tab PO Q4H PRN 10/16/23 04/24/24 5-325 mg] Budesonide 0.5 mg INHALATION RT-BID@0900,1800 03/03/24 04/24/24 Escitalopram [Lexapro] 20 mg PO DAILY@0800 04/09/24 04/24/24 Ipratropium-Albuterol Nebulize 3 ml INHALATION RT-QID 04/13/24 04/24/24 [Duoneb 0.5 mg-3 mg/3 ml Soln] Melatonin 5 mg PO HS@199904/13/24 04/24/24 Aspirin 81 mg PO DAILY@79904/24/24 04/24/24 Loperamide [Imodium] 2 - 4 mg PO DIRECTED PRN 04/24/24 04/24/24 Sennosides/Docusate Sodium 2 tab PO HS@199904/24/24 04/24/24 [Senna-S 8.6-50 mg Tablet] Previous Rx's Medication Instructions Recorded Nitroglycerin Sl Tabs [Nitrostat] 0.4 mg SUBLINGUAL Q5M PRN 90 Days 09/21/23 #100 tab HYDROcodone/APAP 5-325MG [Eva 1 tab PO Q6HR PRN #10 tab 04/10/24 5-325] Furosemide [Lasix] 40 mg PO DAILY #30 tab 04/26/24 Metoprolol Tartrate [Lopressor] 25 mg PO BID #60 tab 04/26/24 Pantoprazole Sodium [Protonix] 20 mg PO BID #60 tab 04/26/24 Ciprofloxacin HCl [Cipro] 500 mg PO Q12HR 7 Days #14 tab 09/15/24 metroNIDAZOLE 500 mg PO BID 7 Days #14 tablet 09/15/24 Allergies Allergy/AdvReac Type Severity Reaction Status Date / Time morphine Allergy Anaphylaxis Verified 09/15/24 20:05 Penicillins Allergy Swelling Verified 09/15/24 20:05 on entire body Influenza Virus Vaccines AdvReac Unknown Verified 09/15/24 20:05 pneumococcal vaccine AdvReac Unknown Verified 09/15/24 20:05 Review of Systems ROS Statement: Those systems with pertinent positive or pertinent negative responses have been documented in the HPI. ROS Other: All systems not noted in ROS Statement are negative. Past Medical History Past Medical History: Coronary Artery Disease (CAD), Heart Failure, COPD, Dementia, Hyperlipidemia, Hypertension, Myocardial Infarction (DC), Seizure Disorder, Syncope, Thyroid Disorder Additional Past Medical History / Comment(s): Ischemic cardiomyopathy, EF 20- 25%, last seizure about 2 yrs ago, hypothyroid.neuropathy "WHEN HE WORKED HE HAD A CRUSHING INJURY -COLLAPSED LUNGS C/T AND HAS CHRONIC BACK PAIN"" pt states he is schizophrenic/bipolar. TRIPLE A REPAIR AUG 2022 Last Myocardial Infarction Date:: unk History of Any Multi-Drug Resistant Organisms: None Reported Past Surgical History: AICD, Back Surgery, Coronary Bypass/CABG, Heart Catheterization, Heart Catheterization With Stent Additional Past Surgical History / Comment(s): 1995 CABG 4 vessel in [place], has had 2"HEART CATHS/had 2 STENTS after cabg sx.pt stated they were done in [facility]. "sx on tailbone, cortisone injections, devin inguinal hernia repair Past Anesthesia/Blood Transfusion Reactions: No Reported Reaction Date of Last Stent Placement:: 1995 Type of Cardiac Device: AICD Device Placement Date:: 1995 in [facility] Past Psychological History: Anxiety, Depression, Schizoaffective Disorder, Schizophrenia Smoking Status: Current every day smoker Past Alcohol Use History: None Reported Past Drug Use History: None Reported - Past Family History Mother Family Medical History: Respiratory Disorder Additional Family Medical History / Comment(s): Mother had TB Father Additional Family Medical History / Comment(s): Father was an alcoholic, was killed in a motor vehicle accident General Exam Limitations: no limitations General appearance: alert, in no apparent distress Head exam: Present: atraumatic, normocephalic, normal inspection Eye exam: Present: normal appearance, EOMI Neck exam: Present: normal inspection. Absent: meningismus Respiratory exam: Present: normal lung sounds bilaterally. Absent: respiratory distress, wheezes, rales, rhonchi, stridor Cardiovascular Exam: Present: regular rate, normal rhythm, normal heart sounds. Absent: systolic murmur, diastolic murmur, rubs, gallop, clicks GI/Abdominal exam: Present: soft, tenderness. Absent: distended, guarding, rebound, rigid Neurological exam: Present: alert, oriented X3 Psychiatric exam: Present: normal affect, normal mood Skin exam: Present: warm, dry Course Vital Signs 09/15/24 09/15/24 09/15/24 20:01 22:05 23:21 Temperature 97.6 F Pulse Rate 58 L 58 L 56 L Respiratory 18 20 18 Rate Blood Pressure 130/94 129/64 124/83 O2 Sat by Pulse 94 L 93 L 98 Oximetry Medical Decision Making - Medical Decision Making Was pt. sent in by a medical professional or institution (, PA, TRUCK DRIVER SALESPERSON, urgent c are, hospital, or correction...) When possible be specific @ -No Did you speak to anyone other than the patient for history (EMS, parent, family, police, friend...)? What history was obtained from this source @ -No Did you review nursing and triage notes (agree or disagree)? Why? @ -I reviewed and agree with nursing and triage notes Were old charts reviewed (outside hosp., previous admission, EMS record, old EKG, old radiological studies, urgent care reports/EKG's, correction records)? Report findings @ -No old charts were reviewed Differential Diagnosis (chest pain, altered mental status, abdominal pain women, abdominal pain men, vaginal bleeding, weakness, fever, dyspnea, syncope, headache, dizziness, GI bleed, back pain, seizure, CVA, palpatations, mental health, musculoskeletal)? @ -MDM Differential Abdominal Pain Men: Appendicitis, cholecystitis, diverticulosis, ischemic bowel, pancreatitis, hepatitis, UTI, gastroenteritis, AAA, incarcerated hernia, bowel obstruction, constipation, inflammatory bowel, hepatitis, peptic ulcer disease, splenic infarction, perforated viscus, testicular torsion... This is not meant to be an all-inclusive list EKG interpreted by me (3pts min.). @ -EKG shows sinus rhythm ventricular rate 62. OH interval 137. QRS 114. QT 441. QTc 445. No acute changes from previous EKG X-rays interpreted by me (1pt min.). @ -None done CT interpreted by me (1pt min.). @ -CT shows colonic diverticulosis with liquid stool and short segment sigmoid colon wall thickening suggestive of diarrhea and either uncomplicated acute diverticulitis or mild infectious colitis U/S interpreted by me (1pt. min.). @ -None done What testing was considered but not performed or refused? (CT, X-rays, U/S, labs)? Why? @ -None What meds were considered but not given or refused? Why? @ -None Did you discuss the management of the patient with other professionals (professionals i.e. PILO Cruz, TRUCK DRIVER SALESPERSON, lab, RT, psych nurse, older adult social work specialist, batchmaker, teacher, casino surveillance officer, case management associate)? Give summary @ -No Was smoking cessation discussed for >3mins.? @ -No Was critical care preformed (if so, how long)? @ -No Were there social determinants of health that impacted care today? How? (Homelessness, low income, unemployed, alcoholism, drug addiction, transport ation, low edu. Level, literacy, decrease access to med. care, halfway, rehab)? @ -No Was there de-escalation of care discussed even if they declined (Discuss DNR or withdrawal of care, Hospice)? DNR status @ -No What co-morbidities impacted this encounter? (DM, HTN, Smoking, COPD, CAD, Cancer, CVA, ARF, Chemo, Hep., AIDS, mental health diagnosis, sleep apnea, morbid obesity)? @ -None Was patient admitted / discharged? Hospital course, mention meds given and route, prescriptions, significant lab abnormalities, going to OR and other pertinent info. @ -74-year-old male presenting with chief complaint of abdominal pain. Some nausea with no vomiting. No diarrhea, patient is having normal bowel movements. History and physical examination are conducted. No leukocytosis. Hemoglobin 12.9 consistent with the patient's baseline. Creatinine 1.67, it appears the patient has had values similar to this in the past and this is only mildly elevated from his recent values. Urine shows no infectious process. Amylase and lipase are WNL. CT shows mild infectious colitis versus mild uncomplicated diverticulitis. Patient lives in assisted living facility, considering he will have close monitoring, his vital signs are stable, and he is in no acute distress patient will be treated outpatient with metronidazole and Cipro given penicillin allergy. Patient is educated on today's findings and treatment plan. Follow-up with PCP. Report back to ER with any new or worsening symptoms. Discussed return parameters and answered all questions. Patient conveyed verbal understanding and agreed to the plan. I discussed this case in detail with my attending Dr. Quintero Undiagnosed new problem with uncertain prognosis? @ -No Drug Therapy requiring intensive monitoring for toxicity (Heparin, Nitro, Insulin, Cardizem)? @ -No Were any procedures done? @ -No Diagnosis/symptom? @ -Colitis Acute, or Chronic, or Acute on Chronic? @ -Acute Uncomplicated (without systemic symptoms) or Complicated (systemic symptoms)? @ -Uncomplicated Side effects of treatment? @ -No Exacerbation, Progression, or Severe Exacerbation? @ -No Poses a threat to life or bodily function? How? (Chest pain, USA, DC, pneumonia, PE, COPD, DKA, ARF, appy, cholecystitis, CVA, Diverticulitis, Homicidal, Suicidal, threat to staff... and all critical care pts) @ -Low likelihood - Lab Data Result diagrams: 09/15/24 20:49 09/15/24 20:49 Lab Results 09/15/24 09/15/24 09/15/24 Range/Units 20:49 20:49 20:49 WBC 6.4 (3.8-10.6) k/uL RBC 4.54 (4.30-5.90) m/uL Hgb 12.9 L (13.0-17.5) gm/dL Hct 40.1 (39.0-53.0) % MCV 88.3 (80.0-100.0) fL MCH 28.3 (25.0-35.0) pg MCHC 32.1 (31.0-37.0) g/dL RDW 16.2 H (11.5-15.5) % Plt Count 122 L (150-450) k/uL MPV 8.7 Neutrophils % 56 % Lymphocytes % 33 % Monocytes % 6 % Eosinophils % 2 % Basophils % 0 % Neutrophils # 3.6 (1.3-7.7) k/uL Lymphocytes # 2.1 (1.0-4.8) k/uL Monocytes # 0.4 (0-1.0) k/uL Eosinophils # 0.1 (0-0.7) k/uL Basophils # 0.0 (0-0.2) k/uL Hypochromasia Slight Anisocytosis Slight PT 11.9 (10.0-12.5) sec INR 1.1 (<1.2) APTT 26.3 (22.0-30.0) sec Sodium 142 (137-145) mmol/L Potassium 3.9 (3.5-5.1) mmol/L Chloride 103 (98-107) mmol/L Carbon Dioxide 29 (22-30) mmol/L Anion Gap 10 mmol/L BUN 32 H (9-20) mg/dL Creatinine 1.67 H (0.66-1.25) mg/dL Est GFR (CKD-EPI)AfAm 46 (>60 ml/min/1.73 sqM) Est GFR (CKD-EPI)NonAf 40 (>60 ml/min/1.73 sqM) Glucose 108 H (74-99) mg/dL Plasma Lactic Acid Rigoberto (0.7-2.0) mmol/L Calcium 9.2 (8.4-10.2) mg/dL Total Bilirubin 0.5 (0.2-1.3) mg/dL AST 39 (17-59) U/L ALT 23 (4-49) U/L Alkaline Phosphatase 81 (38-126) U/L Troponin I (0.000-0.034) ng/mL Total Protein 7.1 (6.3-8.2) g/dL Albumin 4.4 (3.5-5.0) g/dL Amylase 104 (30-110) U/L Lipase 233 (23-300) U/L Urine Color Urine Appearance (Clear) Urine pH (5.0-8.0) Ur Specific [place] (1.001-1.035) Urine Protein (Negative) Urine Glucose (UA) (Negative) Urine Ketones (Negative) Urine Blood (Negative) Urine Nitrite (Negative) Urine Bilirubin (Negative) Urine Urobilinogen (<2.0) mg/dL Ur Leukocyte Esterase (Negative) 09/15/24 09/15/24 09/15/24 Range/Units 20:49 20:49 22:27 WBC (3.8-10.6) k/uL RBC (4.30-5.90) m/uL Hgb (13.0-17.5) gm/dL Hct (39.0-53.0) % MCV (80.0-100.0) fL MCH (25.0-35.0) pg MCHC (31.0-37.0) g/dL RDW (11.5-15.5) % Plt Count (150-450) k/uL MPV Neutrophils % % Lymphocytes % % Monocytes % % Eosinophils % % Basophils % % Neutrophils # (1.3-7.7) k/uL Lymphocytes # (1.0-4.8) k/uL Monocytes # (0-1.0) k/uL Eosinophils # (0-0.7) k/uL Basophils # (0-0.2) k/uL Hypochromasia Anisocytosis PT (10.0-12.5) sec INR (<1.2) APTT (22.0-30.0) sec Sodium (137-145) mmol/L Potassium (3.5-5.1) mmol/L Chloride (98-107) mmol/L Carbon Dioxide (22-30) mmol/L Anion Gap mmol/L BUN (9-20) mg/dL Creatinine (0.66-1.25) mg/dL Est GFR (CKD-EPI)AfAm (>60 ml/min/1.73 sqM) Est GFR (CKD-EPI)NonAf (>60 ml/min/1.73 sqM) Glucose (74-99) mg/dL Plasma Lactic Acid Rigoberto 1.6 (0.7-2.0) mmol/L Calcium (8.4-10.2) mg/dL Total Bilirubin (0.2-1.3) mg/dL AST (17-59) U/L ALT (4-49) U/L Alkaline Phosphatase (38-126) U/L Troponin I <0.012 (0.000-0.034) ng/mL Total Protein (6.3-8.2) g/dL Albumin (3.5-5.0) g/dL Amylase (30-110) U/L Lipase (23-300) U/L Urine Color Light Yellow Urine Appearance Clear (Clear) Urine pH 5.0 (5.0-8.0) Ur Specific [place] 1.021 (1.001-1.035) Urine Protein Negative (Negative) Urine Glucose (UA) 4+ H (Negative) Urine Ketones Negative (Negative) Urine Blood Negative (Negative) Urine Nitrite Negative (Negative) Urine Bilirubin Negative (Negative) Urine Urobilinogen <2.0 (<2.0) mg/dL Ur Leukocyte Esterase Negative (Negative) Disposition Clinical Impression: Colitis Disposition: HOME SELF-CARE Condition: Good Instructions (If sedation given, give patient instructions): Colitis (ED) Additional Instructions: Follow-up with PCP. Report back to ER with any new or worsening symptoms. Prescriptions: Ciprofloxacin HCl [Cipro] 500 mg PO Q12HR 7 Days #14 tab metroNIDAZOLE 500 mg PO BID 7 Days #14 tablet Is patient prescribed a controlled substance at d/c from ED?: No Referrals: Emile Trejo MD [Primary Care Provider] - 1-2 days Time of Disposition: 22:57
[2024-09-15 22:38] LABS: Appearance,Urine Clear (Clear); Bilirubin,Urine Negative (Negative); Blood,Urine Negative (Negative); Color,Urine Light Yellow; Glucose,Urine (UA) 4+ (Negative); Ketones,Urine Negative (Negative); Leukocyte Esterase,Urine Negative (Negative); Nitrite,Urine Negative (Negative); Protein,Urine Negative (Negative); Specific Gravity,Urine 1.021 (1.001-1.035); Urobilinogen,Urine <2.0 mg/dL (<2.0)
[2024-09-15] MEDS: metroNIDAZOLE 500 MG TAB PO STA (23:07)
[2024-09-15] MEDS: CIPROFLOXACIN HCL 500 MG TAB PO STA (23:07)
[2024-09-15 23:23] VITALS: BP 124/83; PULSE 56; RESP 18
== END 2024-09-15 23:23 | disposition home or self-care (01) ==
LOC: EC 20:00
DX: K52.9 Noninfective gastroenteritis and colitis, unspecified (principal); F17.200 Nicotine dependence, unspecified, uncomplicated; Z88.0 Allergy status to penicillin; Z88.7 Allergy status to serum and vaccine; Z88.5 Allergy status to narcotic agent
CPT/HCPCS: 36415; 93005; 80053; 82150; 83605; 83690; 84484; 85025; 85610; 85730; 81003; 74176; 99285; 96374; 96375; 96376; 96361 ×2; J2405; J1171

== ENCOUNTER 2024-10-24 02:39 | Inpatient (IN) | payer MEDICARE, OTHER ==
[2024-10-24] MEDS: HYDROmorphone 0.5 MG/0.5 ML SYRINGE IVP STA (02:51)
[2024-10-24] MEDS: LORazepam 2 MG/ML INJ IV STA (02:54)
[2024-10-24] MEDS: methylPREDNISolone SOD SUCCI 125 MG/2 ML VIAL IV STA (02:55)
--- NOTE | 2024-10-24 02:56 | ED ---
SOB HPI - General Chief Complaint: Shortness of Breath Stated Complaint: JONY Time Seen by Provider: 10/24/24 02:40 Source: EMS, RN notes reviewed, old records reviewed Mode of arrival: EMS Limitations: no limitations - History of Present Illness Initial Comments: This is a 74-year-old male for significant respiratory distress, patient comes in by EMS as probably 1 respiratory distress elevated blood pressure significantly hypoxic tripoding unable to speak secondary to work of breathing Patient presents on BiPAP unable to give history MD Complaint: shortness of breath, cough -: days(s) Severity: moderate Severity scale (1-10): 4 Known History Of: COPD, asthma, congestive heart failure Context: recent URI, anxiety Associated Symptoms: chest pain, cough, sputum production Treatments Prior to Arrival: oxygen, bronchodilator - Related Data Home Medications Medication Instructions Recorded Confirmed Cyanocobalamin (Vitamin B-12) 1,000 mcg PO DAILY@0800 08/23/22 10/24/24 [Vitamin B-12] Acetaminophen [Tylenol 8 Hour] 650 mg PO TID@0800,1400,199909/17/23 10/24/24 Atorvastatin Calcium [Lipitor] 40 mg PO HS@199909/17/23 10/24/24 Folic Acid 0.4 mg PO DAILY@0800 09/17/23 10/24/24 Levothyroxine Sodium [Synthroid] 100 mcg PO DAILY@0709/17/23 10/24/24 Mirtazapine 30 mg PO HS@199909/17/23 10/24/24 Budesonide-Formot 160-4.5 Mcg 2 puff INHALATION RT-BID@799,199910/16/23 10/24/24 [Symbicort 160-4.5 Mcg Inhaler] Dapagliflozin Propanediol [Farxiga] 10 mg PO DAILY@79910/16/23 10/24/24 Losartan [Cozaar] 25 mg PO DAILY@79910/16/23 10/24/24 Budesonide 0.5 mg INHALATION RT-BID@0900,1800 03/03/24 10/24/24 Escitalopram [Lexapro] 20 mg PO DAILY@0800 04/09/24 10/24/24 Ipratropium-Albuterol Nebulize 3 ml INHALATION RT-QID 04/13/24 10/24/24 [Duoneb 0.5 mg-3 mg/3 ml Soln] Melatonin 10 mg PO HS@199904/13/24 10/24/24 Sennosides/Docusate Sodium 2 tab PO HS@199904/24/24 10/24/24 [Senna-S 8.6-50 mg Tablet] Apixaban [Eliquis] 5 mg PO BID@0800,199910/24/24 10/24/24 busPIRone HCl [Buspar] 10 mg PO BID@0800,199910/24/24 10/24/24 Previous Rx's Medication Instructions Recorded Nitroglycerin Sl Tabs [Nitrostat] 0.4 mg SUBLINGUAL Q5M PRN 90 Days 09/21/23 #100 tab HYDROcodone/APAP 5-325MG [[place] 1 tab PO Q6HR PRN #10 tab 04/10/24 5-325] Furosemide [Lasix] 40 mg PO DAILY #30 tab 04/26/24 Pantoprazole Sodium [Protonix] 20 mg PO BID #60 tab 04/26/24 Metoprolol Tartrate [Lopressor] 12.5 mg PO BID #60 tab 10/27/24 cefuroxime axetiL [Ceftin] 500 mg PO BID #4 tab 10/27/24 predniSONE 10 mg PO DAILY #30 tab 10/27/24 Allergies Allergy/AdvReac Type Severity Reaction Status Date / Time morphine Allergy Anaphylaxis Verified 10/24/24 07:59 Penicillins Allergy Swelling Verified 10/24/24 07:59 on entire body Influenza Virus Vaccines AdvReac Unknown Verified 10/24/24 07:59 pneumococcal vaccine AdvReac Unknown Verified 10/24/24 07:59 Review of Systems ROS Statement: Those systems with pertinent positive or pertinent negative responses have been documented in the HPI. ROS Other: All systems not noted in ROS Statement are negative. Past Medical History Past Medical History: Coronary Artery Disease (CAD), Heart Failure, COPD, Dementia, Hyperlipidemia, Hypertension, Myocardial Infarction (CT), Seizure Disorder, Syncope, Thyroid Disorder Additional Past Medical History / Comment(s): Ischemic cardiomyopathy, EF 20- 25%, last seizure about 2 yrs ago, hypothyroid.neuropathy "WHEN HE WORKED HE HAD A CRUSHING INJURY -COLLAPSED LUNGS C/T AND HAS CHRONIC BACK PAIN"" pt states he is schizophrenic/bipolar. TRIPLE A REPAIR AUG 2022 Last Myocardial Infarction Date:: unk History of Any Multi-Drug Resistant Organisms: None Reported Past Surgical History: AICD, Back Surgery, Coronary Bypass/CABG, Heart Catheterization, Heart Catheterization With Stent Additional Past Surgical History / Comment(s): 1995 CABG 4 vessel in [place], has had 2"HEART CATHS/had 2 STENTS after cabg sx.pt stated they were done in [facility]. "sx on tailbone, cortisone injections, devin inguinal hernia repair Past Anesthesia/Blood Transfusion Reactions: No Reported Reaction Date of Last Stent Placement:: 1995 Type of Cardiac Device: AICD Device Placement Date:: 1995 in [facility] Past Psychological History: Anxiety, Depression, Schizoaffective Disorder, Schizophrenia Smoking Status: Current every day smoker Past Alcohol Use History: None Reported Past Drug Use History: None Reported - Past Family History Mother Family Medical History: Respiratory Disorder Additional Family Medical History / Comment(s): Mother had TB Father Additional Family Medical History / Comment(s): Father was an alcoholic, was killed in a motor vehicle accident General Exam Limitations: no limitations General appearance: alert, anxious, in distress Head exam: Present: atraumatic, normocephalic, normal inspection Eye exam: Present: normal appearance, PERRL, EOMI. Absent: scleral icterus, conjunctival injection, periorbital swelling ENT exam: Present: normal exam, mucous membranes moist Neck exam: Present: normal inspection. Absent: tenderness, meningismus, lymphadenopathy Respiratory exam: Present: respiratory distress, wheezes, rhonchi, chest wall tenderness, accessory muscle use, decreased breath sounds, prolonged expiratory. Absent: rales, stridor Cardiovascular Exam: Present: tachycardia, normal heart sounds. Absent: systolic murmur, diastolic murmur, rubs, gallop, clicks GI/Abdominal exam: Present: soft, normal bowel sounds. Absent: distended, tenderness, guarding, rebound, rigid Extremities exam: Present: normal inspection, full ROM, normal capillary refill. Absent: tenderness, pedal edema, joint swelling, calf tenderness Back exam: Present: normal inspection Neurological exam: Present: alert, oriented X3, CN II-XII intact Psychiatric exam: Present: normal affect, normal mood Skin exam: Present: warm, dry, intact, normal color. Absent: rash Course Vital Signs 0310/24/24 10/24/24 02:43 02:50 02:59 Temperature 97.5 F L Pulse Rate 112 H 85 Respiratory 45 H Rate Blood Pressure 194/165 O2 Sat by Pulse 97 Oximetry Fraction of 100 Inspired Oxygen (FIO2) 10/24/24 10/24/24 10/24/24 03:02 03:09 03:14 Temperature Pulse Rate 87 80 67 Respiratory 32 H 24 Rate Blood Pressure 119/98 115/71 O2 Sat by Pulse 100 99 Oximetry Fraction of Inspired Oxygen (FIO2) 10/24/24 10/24/24 10/24/24 03:26 03:42 03:51 Temperature Pulse Rate 65 65 66 Respiratory 22 Rate Blood Pressure 110/65 O2 Sat by Pulse 98 Oximetry Fraction of Inspired Oxygen (FIO2) 10/24/24 10/24/24 10/24/24 04:32 04:55 06:05 Temperature Pulse Rate 69 63 70 Respiratory 18 18 18 Rate Blood Pressure 105/87 123/61 90/69 O2 Sat by Pulse 100 98 98 Oximetry Fraction of Inspired Oxygen (FIO2) 10/24/24 10/24/24 10/24/24 06:22 07:23 08:04 Temperature Pulse Rate 58 L 63 54 L Respiratory 18 12 Rate Blood Pressure 100/64 108/63 O2 Sat by Pulse 100 98 Oximetry Fraction of 80 Inspired Oxygen (FIO2) 10/24/24 10/24/24 10/24/24 08:21 08:38 10:15 Temperature Pulse Rate 57 L 59 L 55 L Respiratory 16 Rate Blood Pressure 98/50 O2 Sat by Pulse 100 Oximetry Fraction of Inspired Oxygen (FIO2) 10/24/24 10/24/24 10/24/24 11:00 11:24 11:35 Temperature Pulse Rate 61 55 L 58 L Respiratory 16 Rate Blood Pressure 121/61 O2 Sat by Pulse 99 Oximetry Fraction of 60 Inspired Oxygen (FIO2) 10/24/24 10/24/24 10/24/24 12:50 15:00 15:28 Temperature Pulse Rate 55 L 55 L 56 L Respiratory 12 14 Rate Blood Pressure 144/79 108/53 O2 Sat by Pulse 98 98 Oximetry Fraction of 50 Inspired Oxygen (FIO2) 10/24/24 10/24/24 10/24/24 15:38 17:00 18:59 Temperature Pulse Rate 55 L 55 L 55 L Respiratory 15 20 Rate Blood Pressure 121/62 153/75 O2 Sat by Pulse 96 92 L Oximetry Fraction of Inspired Oxygen (FIO2) 10/24/24 10/24/24 10/24/24 19:32 21:28 21:38 Temperature Pulse Rate 55 L 68 55 L Respiratory 16 18 18 Rate Blood Pressure 129/59 O2 Sat by Pulse 94 L Oximetry Fraction of 50 Inspired Oxygen (FIO2) 10/24/24 21:54 Temperature Pulse Rate 55 L Respiratory 18 Rate Blood Pressure 141/75 O2 Sat by Pulse 93 L Oximetry Fraction of Inspired Oxygen (FIO2) - Reevaluation(s) Reevaluation #1: 10/24/24 02:56 Records reviewed Patient does have prior hospital admissions for hypertensive emergency urgency, respiratory failure Reevaluation #2: 10/24/24 04:03 Patient continues to improve on BiPAP Blood pressure improved with blood pressure control Patient's agitation is improved restlessness is improved currently able to rest comfortably Reevaluation #3: 10/24/24 04:04 Patient informed of results questions answered Reevaluation #4: Was pt. sent in by a medical professional or institution (, PA, LISW, urgent care, hospital, or retirement...) When possible be specific @ -no Did you speak to anyone other than the patient for history (EMS, parent, family, police, friend...)? What history was obtained from this source @ -no Did you review nursing and triage notes (agree or disagree)? Why? @ -agree Are old charts reviewed (outside hosp., previous admission, EMS record, old EKG, old radiological studies, urgent care reports/EKG's, retirement records)? Report findings @ -yes Differential Diagnosis (chest pain, altered mental status, abdominal pain women, abdominal pain men, vaginal bleeding, weakness, fever, dyspnea, syncope, heada marivel, dizziness, GI bleed, back pain, seizure, CVA, palpatations, mental health, musculoskeletal)? @ -prior EKG interpreted by me (3pts min.). @ -yes X-rays interpreted by me (1pt min.). @ -yes pulmonary edema CT interpreted by me (1pt min.). @ -no U/S interpreted by me (1pt. min.). @ -no What testing was considered but not performed or refused? (CT, X-rays, U/S, labs)? Why? @ -none What meds were considered but not given or refused? Why? @ -none Did you discuss the management of the patient with other professionals (professionals i.e. , PA, LISW, lab, RT, psych nurse, social services assistant, assistant professor of criminal justice, teacher, highway patrol officer, field case manager)? Give summary @ -no Was smoking cessation discussed for >3mins.? @ -no Was critical care preformed (if so, how long)? @ -yes95 Were there social determinants of health that impacted care today? How? (Homelessness, low income, unemployed, alcoholism, drug addiction, transportation, low edu. Level, literacy, decrease access to med. care, retirement, rehab)? @ -none Was there de-escalation of care discussed even if they declined (Discuss DNR or withdrawal of care, Hospice)? DNR status @ -no What co-morbidities impacted this encounter? (DM, HTN, Smoking, COPD, CAD, Cancer, CVA, ARF, Chemo, Hep., AIDS, mental health diagnosis, sleep apnea, morbid obesity)? @ -none Was patient admitted / discharged? Hospital course, mention meds given and route, prescriptions, significant lab abnormalities, going to OR and other pertinent info. @ - 74 male presenting in acute respiratory failure, multifactorial respiratory distress respiratory failure hypoxic and hypercapnic secondary to both COPD and CHF exacerbation or hypertensive emergency on arrival Admitted Undiagnosed new problem with uncertain prognosis? @ -no Drug Therapy requiring intensive monitoring for toxicity (Heparin, Nitro, Insulin, Cardizem)? @ -no Were any procedures done? @ -no Diagnosis/symptom? @ -Acute respiratory failure hypoxia hypercapnia COPD and CHF Acute, or Chronic, or Acute on Chronic? @ -Acute Uncomplicated (without systemic symptoms) or Complicated (systemic symptoms)? @ -Complicated Side effects of treatment? @ -no Exacerbation, Progression, or Severe Exacerbation? @ -exacerbation Poses a threat to life or bodily function? How? (Chest pain, USA, CT, pneumonia, PE, COPD, DKA, ARF, appy, cholecystitis, CVA, Diverticulitis, Homicidal, Suicidal, threat to staff... and all critical care pts) @ -yes significant respiratory failure Reevaluation #5: Differential Dyspnea: Coronary syndrome, arrhythmia, tamponade, asthma, COPD, pulmonary embolism, pneumonia, pneumothorax, pulmonary effusion, anaphylaxis, diabetic ketoacidosis, flailed chest, pulmonary contusion, diaphragmatic rupture, anemia, neuromuscular, this is not meant to be an all-inclusive list. - Consultations Consultation #1: Spoke with Dr. Bhatt who agrees to admit this patient Medical Decision Making - Medical Decision Making 74 male presenting in acute respiratory failure, multifactorial respiratory distress respiratory failure hypoxic and hypercapnic secondary to both COPD and CHF exacerbation or hypertensive emergency on arrival - Lab Data Result diagrams: 10/25/24 08:28 10/27/24 07:35 Lab Results 10/24/24 10/24/24 10/24/24 Range/Units 02:50 02:50 02:50 WBC 11.8 H (3.8-10.6) k/uL RBC 4.98 (4.30-5.90) m/uL Hgb 13.5 (13.0-17.5) gm/dL Hct 46.4 (39.0-53.0) % MCV 93.2 (80.0-100.0) fL MCH 27.2 (25.0-35.0) pg MCHC 29.2 L (31.0-37.0) g/dL RDW 16.2 H (11.5-15.5) % Plt Count 214 (150-450) k/uL MPV 9.6 Neutrophils % 41 % Lymphocytes % 50 % Monocytes % 4 % Eosinophils % 1 % Basophils % 1 % Neutrophils # 4.9 (1.3-7.7) k/uL Lymphocytes # 6.0 H (1.0-4.8) k/uL Monocytes # 0.5 (0-1.0) k/uL Eosinophils # 0.1 (0-0.7) k/uL Basophils # 0.1 (0-0.2) k/uL Manual Slide Review Performed Hypochromasia Marked Anisocytosis Slight PT 11.4 (10.0-12.5) sec INR 1.0 (<1.2) APTT 24.0 (22.0-30.0) sec VBG pH (7.31-7.41) VBG pCO2 (37-51) mmHg VBG HCO3 (24-28) mmol/L Sodium 142 (137-145) mmol/L Potassium 5.1 (3.5-5.1) mmol/L Chloride 105 (98-107) mmol/L Carbon Dioxide 22 (22-30) mmol/L Anion Gap 15 mmol/L BUN 24 H (9-20) mg/dL Creatinine 1.29 H (0.66-1.25) mg/dL Est GFR (CKD-EPI)AfAm 63 (>60 ml/min/1.73 sqM) Est GFR (CKD-EPI)NonAf 55 (>60 ml/min/1.73 sqM) Glucose 164 H (74-99) mg/dL Lactic Ac Sepsis Rflx Plasma Lactic Acid Rigoberto (0.7-2.0) mmol/L Calcium 9.7 (8.4-10.2) mg/dL Phosphorus 4.6 H (2.5-4.5) mg/dL Magnesium 2.0 (1.6-2.3) mg/dL Total Bilirubin 0.6 (0.2-1.3) mg/dL AST 44 (17-59) U/L ALT 33 (4-49) U/L Alkaline Phosphatase 80 (38-126) U/L Troponin I (0.000-0.034) ng/mL NT-Pro-B Natriuret Pep 3740 pg/mL Total Protein 8.6 H (6.3-8.2) g/dL Albumin 5.2 H (3.5-5.0) g/dL 10/24/24 10/24/24 10/24/24 Range/Units 02:50 02:50 02:50 WBC (3.8-10.6) k/uL RBC (4.30-5.90) m/uL Hgb (13.0-17.5) gm/dL Hct (39.0-53.0) % MCV (80.0-100.0) fL MCH (25.0-35.0) pg MCHC (31.0-37.0) g/dL RDW (11.5-15.5) % Plt Count (150-450) k/uL MPV Neutrophils % % Lymphocytes % % Monocytes % % Eosinophils % % Basophils % % Neutrophils # (1.3-7.7) k/uL Lymphocytes # (1.0-4.8) k/uL Monocytes # (0-1.0) k/uL Eosinophils # (0-0.7) k/uL Basophils # (0-0.2) k/uL Manual Slide Review Hypochromasia Anisocytosis PT (10.0-12.5) sec INR (<1.2) APTT (22.0-30.0) sec VBG pH 7.19 L* (7.31-7.41) VBG pCO2 59 H (37-51) mmHg VBG HCO3 22 L (24-28) mmol/L Sodium (137-145) mmol/L Potassium (3.5-5.1) mmol/L Chloride (98-107) mmol/L Carbon Dioxide (22-30) mmol/L Anion Gap mmol/L BUN (9-20) mg/dL Creatinine (0.66-1.25) mg/dL Est GFR (CKD-EPI)AfAm (>60 ml/min/1.73 sqM) Est GFR (CKD-EPI)NonAf (>60 ml/min/1.73 sqM) Glucose (74-99) mg/dL Lactic Ac Sepsis Rflx Plasma Lactic Acid Rigoberto 5.7 H* (0.7-2.0) mmol/L Calcium (8.4-10.2) mg/dL Phosphorus (2.5-4.5) mg/dL Magnesium (1.6-2.3) mg/dL Total Bilirubin (0.2-1.3) mg/dL AST (17-59) U/L ALT (4-49) U/L Alkaline Phosphatase (38-126) U/L Troponin I <0.012 (0.000-0.034) ng/mL NT-Pro-B Natriuret Pep pg/mL Total Protein (6.3-8.2) g/dL Albumin (3.5-5.0) g/dL 10/24/24 Range/Units 03:53 WBC (3.8-10.6) k/uL RBC (4.30-5.90) m/uL Hgb (13.0-17.5) gm/dL Hct (39.0-53.0) % MCV (80.0-100.0) fL MCH (25.0-35.0) pg MCHC (31.0-37.0) g/dL RDW (11.5-15.5) % Plt Count (150-450) k/uL MPV Neutrophils % % Lymphocytes % % Monocytes % % Eosinophils % % Basophils % % Neutrophils # (1.3-7.7) k/uL Lymphocytes # (1.0-4.8) k/uL Monocytes # (0-1.0) k/uL Eosinophils # (0-0.7) k/uL Basophils # (0-0.2) k/uL Manual Slide Review Hypochromasia Anisocytosis PT (10.0-12.5) sec INR (<1.2) APTT (22.0-30.0) sec VBG pH (7.31-7.41) VBG pCO2 (37-51) mmHg VBG HCO3 (24-28) mmol/L Sodium (137-145) mmol/L Potassium (3.5-5.1) mmol/L Chloride (98-107) mmol/L Carbon Dioxide (22-30) mmol/L Anion Gap mmol/L BUN (9-20) mg/dL Creatinine (0.66-1.25) mg/dL Est GFR (CKD-EPI)AfAm (>60 ml/min/1.73 sqM) Est GFR (CKD-EPI)NonAf (>60 ml/min/1.73 sqM) Glucose (74-99) mg/dL Lactic Ac Sepsis Rflx Y Plasma Lactic Acid Rigoberto (0.7-2.0) mmol/L Calcium (8.4-10.2) mg/dL Phosphorus (2.5-4.5) mg/dL Magnesium (1.6-2.3) mg/dL Total Bilirubin (0.2-1.3) mg/dL AST (17-59) U/L ALT (4-49) U/L Alkaline Phosphatase (38-126) U/L Troponin I (0.000-0.034) ng/mL NT-Pro-B Natriuret Pep pg/mL Total Protein (6.3-8.2) g/dL Albumin (3.5-5.0) g/dL - EKG Data -: EKG Interpreted by Me (EKG sinus tachycardia 103 SC 135 QRS 113 QTc 401, bigeminy with multiple PV) - Radiology Data Radiology results: report reviewed (Chest x-ray positive pulmonary edema), image reviewed Critical Care Time Critical Care Time: Yes Total Critical Care Time: 95 Disposition Clinical Impression: COPD (chronic obstructive pulmonary disease), Systolic CHF, chronic, COPD with exacerbation, Acute respiratory distress syndrome in adult, Acute pulmonary edema, Hypertensive emergency Disposition: ADMITTED IP TO THIS HOSP Condition: Serious Is patient prescribed a controlled substance at d/c from ED?: No Time of Disposition: 04:10
[2024-10-24] MEDS: MAGNESIUM SULFATE-D5W PMX 1 GM in DEXTROSE/WATER 1 100ML.BAG IVPB ONE (02:57)
[2024-10-24] MEDS: ENALAPRILAT 1.25 MG/ML 1 ML VIAL IVP STA (02:58)
[2024-10-24] MEDS: IPRATROPIUM-ALBUTEROL 3 ML NEB INHALATION STA ×2 (02:59→03:41)
[2024-10-24] MEDS: SODIUM CHLORIDE 0.9% 1,000 ML IV SCH ×2 (03:01→04:17)
[2024-10-24 03:06] LABS: VBG PH 7.19 (7.31-7.41)
[2024-10-24] MEDS: TERBUTALINE 1 MG/ML VIAL SQ STA (03:17)
[2024-10-24 03:18] LABS: ALT 33 U/L (4-49); AST 44 U/L (17-59); African American GFR (CKD) 63 (>60 ml/min/1.73 sqM); Albumin 5.2 g/dL (3.5-5.0); Alkaline Phosphatase 80 U/L (38-126); Anion Gap 15 mmol/L; Blood Urea Nitrogen 24 mg/dL (9-20); Calcium 9.7 mg/dL (8.4-10.2); Carbon Dioxide 22 mmol/L (22-30); Chloride 105 mmol/L (98-107); Glucose 164 mg/dL (74-99); Non-African American GFR(CKD) 55 (>60 ml/min/1.73 sqM); Phosphorus 4.6 mg/dL (2.5-4.5); Potassium 5.1 mmol/L (3.5-5.1); Sodium 142 mmol/L (137-145); Total Bilirubin 0.6 mg/dL (0.2-1.3); Total Protein 8.6 g/dL (6.3-8.2)
[2024-10-24 03:27] LABS: NT-Pro-B-Type Natriuretic Pept 3740 pg/mL
[2024-10-24] MEDS: NITROGLYCERIN-D5W PMX 50 MG in DEXTROSE/WATER 1 250ML.BAG IV ONE (03:30)
[2024-10-24 03:37] LABS: Anisocytosis Slight; Basophils # (A) 0.1 k/uL (0-0.2); Basophils % (A) 1 %; Eosinophils # (A) 0.1 k/uL (0-0.7); Eosinophils % (A) 1 %; HCT 46.4 % (39.0-53.0); HGB 13.5 gm/dL (13.0-17.5); Hypochromasia Marked; Lymphocytes % (A) 50 %; MCH 27.2 pg (25.0-35.0); MCHC 29.2 g/dL (31.0-37.0); MCV 93.2 fL (80.0-100.0); Mean Platelet Volume 9.6; Monocytes # (A) 0.5 k/uL (0-1.0); Monocytes % (A) 4 %; Neutrophils # (A) 4.9 k/uL (1.3-7.7); Neutrophils % (A) 41 %; Platelet Count 214 k/uL (150-450); RBC 4.98 m/uL (4.30-5.90); WBC 11.8 k/uL (3.8-10.6)
[2024-10-24 03:39] LABS: Prothrombin Time 11.4 sec (10.0-12.5)
[2024-10-24] MEDS: HYDROmorphone 1 MG/ML 1 ML SYRINGE IVP STA (03:53)
[2024-10-24] MEDS ORDERED: NALOXONE 0.4 MG/ML 1 ML VIAL IV PRN (04:11)
[2024-10-24] MEDS ORDERED: ONDANSETRON 4 MG/2 ML VIAL IVP PRN (04:11)
[2024-10-24 04:18] LABS: RDW 16.2 % (11.5-15.5)
[2024-10-24] MEDS: FUROSEMIDE 10 MG/ML 10 ML VIAL IV STA (04:30)
--- NOTE | 2024-10-24 04:44 | XR ---
EXAM: XR Chest, 1 View CLINICAL HISTORY: ITS.REASON XR Reason: sob TECHNIQUE: Frontal view of the chest. COMPARISON: No relevant prior studies available. FINDINGS: Lungs: Mild pulmonary vascular congestion. Pleural space: Unremarkable. No pneumothorax. Heart: Cardiomegaly. Mediastinum: Unremarkable. Bones/joints: Unremarkable. Tubes, lines and devices: AICD/pacemaker. Pacemaker leads peered. IMPRESSION: Mild pulmonary vascular congestion.
[2024-10-24] MEDS: methylPREDNISolone SOD SUCCI 125 MG/2 ML VIAL IV SCH (05:29)
--- NOTE | 2024-10-24 05:49 | P.CNPUL ---
History of Present Illness Consult date: 10/24/24 Requesting physician: Celestine Cordova Reason for consult: hypoxemia Chief complaint: Respiratory distress History of present illness: Patient is a 74-year-old male with past medical history significant for coronary artery disease with CABG, ischemic cardiomyopathy with ejection fraction 15 to 20%, AICD, hypertension, hypothyroidism, COPD, seizure disorder, dementia. I believe the patient resides at an [facility] home. He was sent to the emergency department early this morning in a state of acute respiratory distress. Placed on BiPAP. Did receive a one-time dose of Lasix 60 mg. Workup includes a chest x-ray showing pulmonary vascular congestion. There is an AICD/pacemaker. NT proBNP was elevated at 3740. CBC: WBC count 11.8, hemoglobin 13.5, platelets 214. CMP: Sodium 142, potassium 5.1, chloride 105, serum bicarb 22, BUN 24, creatinine 1.29, glucose 164. Lactic was elevated at 5.7. Normal saline infusing at 75 mL/h. Troponin less than 0.012. NT proBNP 3740. VBG with a pCO2 of 59 and pH of 7.19. Currently, patient is being evaluated emergency department. He is lethargic, awakens to verbal stimuli, and follows simple commands. Does not readily participate with interview. Remains on BiPAP with settings 14/7 and FiO2 80%. Breathing appears nonlabored. Achieving tidal labs around 400. Has voided once since receiving his Lasix. Current vital signs: Temperature 97.5 F, heart rate 69 bpm, blood pressure 105/87 mmHg, respiratory rate nontachypneic, on BiPAP with above-mentioned settings, SpO2 reading 100%. Review of Systems ROS unobtainable: due to mental status Past Medical History Past Medical History: Coronary Artery Disease (CAD), Heart Failure, COPD, Dementia, Hyperlipidemia, Hypertension, Myocardial Infarction ([place]), Seizure Disorder, Syncope, Thyroid Disorder Additional Past Medical History / Comment(s): Ischemic cardiomyopathy, EF 20- 25%, last seizure about 2 yrs ago, hypothyroid.neuropathy "WHEN HE WORKED HE HAD A CRUSHING INJURY -COLLAPSED LUNGS C/T AND HAS CHRONIC BACK PAIN"" pt states he is schizophrenic/bipolar. TRIPLE A REPAIR AUG 2022 Last Myocardial Infarction Date:: unk History of Any Multi-Drug Resistant Organisms: None Reported Past Surgical History: AICD, Back Surgery, Coronary Bypass/CABG, Heart Catheterization, Heart Catheterization With Stent Additional Past Surgical History / Comment(s): 1995 CABG 4 vessel in [place], has had 2"HEART CATHS/had 2 STENTS after cabg sx.pt stated they were done in [facility]. "sx on tailbone, cortisone injections, devin inguinal hernia repair Past Anesthesia/Blood Transfusion Reactions: No Reported Reaction Date of Last Stent Placement:: 1995 Type of Cardiac Device: AICD Device Placement Date:: 1995 in [facility] Past Psychological History: Anxiety, Depression, Schizoaffective Disorder, Schizophrenia Smoking Status: Current every day smoker Past Alcohol Use History: None Reported Past Drug Use History: None Reported - Past Family History Mother Family Medical History: Respiratory Disorder Additional Family Medical History / Comment(s): Mother had TB Father Additional Family Medical History / Comment(s): Father was an alcoholic, was killed in a motor vehicle accident Medications and Allergies Home Medications Medication Instructions Recorded Confirmed Type Cyanocobalamin (Vitamin B-12) 1,000 mcg PO DAILY@0800 08/23/22 10/24/24 History [Vitamin B-12] Acetaminophen [Tylenol 8 Hour] 650 mg PO TID@0800,1400,199909/17/23 10/24/24 History Atorvastatin Calcium [Lipitor] 40 mg PO HS@199909/17/23 10/24/24 History Folic Acid 0.4 mg PO DAILY@0800 09/17/23 10/24/24 History Levothyroxine Sodium [Synthroid] 100 mcg PO DAILY@0700 09/17/23 10/24/24 History Mirtazapine 30 mg PO HS@199909/17/23 10/24/24 History Nitroglycerin Sl Tabs [Nitrostat] 0.4 mg SUBLINGUAL Q5M PRN 90 Days 09/21/23 10/24/24 Rx #100 tab Budesonide-Formot 160-4.5 Mcg 2 puff INHALATION RT-BID@0800,199910/16/23 10/24/24 History [Symbicort 160-4.5 Mcg Inhaler] Dapagliflozin Propanediol [Farxiga] 10 mg PO DAILY@0800 10/16/23 10/24/24 History Losartan [Cozaar] 25 mg PO DAILY@79910/16/23 10/24/24 History Budesonide 0.5 mg INHALATION RT-BID@0900,1800 03/03/24 10/24/24 History Escitalopram [Lexapro] 20 mg PO DAILY@0800 04/09/24 10/24/24 History HYDROcodone/APAP 5-325MG [[place] 1 tab PO Q6HR PRN #10 tab 04/10/24 10/24/24 Rx 5-325] Ipratropium-Albuterol Nebulize 3 ml INHALATION RT-QID 04/13/24 10/24/24 History [Duoneb 0.5 mg-3 mg/3 ml Soln] Melatonin 10 mg PO HS@199904/13/24 10/24/24 History Sennosides/Docusate Sodium 2 tab PO HS@199904/24/24 10/24/24 History [Senna-S 8.6-50 mg Tablet] Furosemide [Lasix] 40 mg PO DAILY #30 tab 04/26/24 10/24/24 Rx Metoprolol Tartrate [Lopressor] 25 mg PO BID #60 tab 04/26/24 10/24/24 Rx Pantoprazole Sodium [Protonix] 20 mg PO BID #60 tab 04/26/24 10/24/24 Rx metroNIDAZOLE 500 mg PO BID 7 Days #14 tablet 09/15/24 10/24/24 Rx Apixaban [Eliquis] 5 mg PO BID@0800,199910/24/24 10/24/24 History busPIRone HCl [Buspar] 10 mg PO BID@0800,199910/24/24 10/24/24 History Allergies Allergy/AdvReac Type Severity Reaction Status Date / Time morphine Allergy Anaphylaxis Verified 10/24/24 07:59 Penicillins Allergy Swelling Verified 10/24/24 07:59 on entire body Influenza Virus Vaccines AdvReac Unknown Verified 10/24/24 07:59 pneumococcal vaccine AdvReac Unknown Verified 10/24/24 07:59 Physical Exam Vitals: Vital Signs Temp Pulse Resp BP Pulse Ox FiO2 10/24/24 04:32 69 18 105/87 100 10/24/24 03:51 66 10/24/24 03:42 65 10/24/24 03:26 65 22 110/65 98 10/24/24 03:14 67 24 115/71 99 10/24/24 03:09 80 10/24/24 03:02 87 32 H 119/98 100 10/24/24 02:59 85 10/24/24 02:50 100 10/24/24 02:43 97.5 F L 112 H 45 H 194/165 97 Intake and Output 10/23/24 10/23/24 10/24/24 14:59 22:59 06:59 Other: Weight 83.915 kg GENERAL EXAM: Lethargic, 74-year-old male, awakens to verbal stimuli, and quickly falls back asleep. Follows simple commands. HEAD: Normocephalic and atraumatic EYES: Normal reaction of pupils, equal size. NOSE: Clear with pink turbinates. THROAT: No erythema or exudates. NECK: No masses, no JVD. CHEST: No chest wall deformity. LUNGS: Equal air entry with no crackles, wheeze, rhonchi or dullness. On BiPAP with settings 14/7 FiO2 80%. SpO2 reading 100%. Achieving tidal volumes around 400 and respiratory rate is around 12 to 18 breaths/min. Breathing is non labored. CVS: S1 and S2 normal with no audible murmur, regular rhythm. No extra heart sounds ABDOMEN: No hepatosplenomegaly, active bowel sounds, no guarding or rigidity. SPINE: No scoliosis or deformity SKIN: No rashes CENTRAL NERVOUS SYSTEM: No focal deficits, tone is normal in all 4 extremities. EXTREMITIES: There is no peripheral edema, clubbing, or cyanosis. Peripheral pulses are intact. Results - Laboratory Findings CBC and BMP: 10/24/24 02:50 10/24/24 02:50 PT/INR, D-dimer PT 11.4 sec (10.0-12.5) 10/24/24 02:50 INR 1.0 (<1.2) 10/24/24 02:50 Abnormal lab findings: Abnormal Labs 10/24/24 10/24/24 10/24/24 02:50 02:50 02:50 WBC 11.8 H MCHC 29.2 L VBG pH VBG pCO2 VBG HCO3 BUN 24 H Creatinine 1.29 H Glucose 164 H Plasma Lactic Acid Rigoberto 5.7 H* Phosphorus 4.6 H Total Protein 8.6 H Albumin 5.2 H 10/24/24 02:50 WBC MCHC VBG pH 7.19 L* VBG pCO2 59 H VBG HCO3 22 L BUN Creatinine Glucose Plasma Lactic Acid Rigoberto Phosphorus Total Protein Albumin - Diagnostic Findings Chest x-ray: image reviewed Assessment and Plan Assessment: Acute exacerbation of systolic congestive heart failure Acute COPD exacerbation Acute hypoxemic and hypercapnic respiratory failure, secondary to a combination of above Lactic acidosis, 5.7 History of CAD with previous CABG and subsequent cardiac stents Ischemic cardiomyopathy with an ejection fraction of 15 to 20% and moderate MR, status post AICD Paroxysmal atrial fibrillation, current rhythm is sinus and the patient has been maintained on anticoagulation with Eliquis on outpatient basis. Hypertension History of hyperlipidemia History of AAA with repair Chronic kidney disease stage IIIa History of hypothyroidism History of left inguinal hernia with repair History of dementia History of seizure AF resident Plan: Patient's medications, labs, chest x-ray reviewed Continue on BiPAP with current settings Did receive a one-time dose of Lasix 60 mg in the ED, continue 40 mg twice daily Restart cardiac medications once verified including metoprolol, losartan, Farxiga Add combination of bronchodilators, budesonide inhalation, formoterol inhalation, and IV Solu-Medrol Check viral 4 Plex We will continue to follow I have personally seen and examined the patient, performed the documentation and the assessment and plan as written. Number of minutes spent on the visit:20 This is a joint evaluation that was done along with the nurse practitioner. This evaluation was done and 32 minutes. The patient is presenting to the hospital with shortness of breath he does not have coronary disease, previous bypass surgery, ischemic cardiomyopathy with an EF of around 15 to 20% and the patient has an AICD in place. Other comorbidities include paroxysmal atrial fibrillation, COPD, seizure disorder, hypertension, hypothyroidism and history of dementia. The proBNP level is elevated and the patient seems to be in CHF. The patient was started on IV Lasix. The patient was also started on BiPAP therapy pressure of 14/7 with an FiO2 being down from 80% down to 60%. He is tolerating the BiPAP well for now. He is producing adequate urine output. Reviewed the chest x-ray is consistent with CHF. Cardiology will be consulted. The patient be kept on diuretics. He remains on anticoagulation with Eliquis. He also has a component of CO2 exacerbation started on DuoNeb nebulized treatments and IV Solu-Medrol. Empiric antibiotic coverage with IV Rocephin although possibility of pneumonia is less likely. Presentation is most consistent with CHF COPD exacerbation. Time with Patient: Greater than 30
[2024-10-24 06:20] LABS: Influenza A Not Detected (Not Detectd); Influenza B Not Detected (Not Detectd); RSV Not Detected (Not Detectd)
[2024-10-24] MEDS ORDERED: ALBUTEROL NEBULIZED 2.5 MG/3 ML INHALATION SCH (08:00)
[2024-10-24] MEDS: IPRATROPIUM-ALBUTEROL 3 ML NEB INHALATION SCH (08:02)
[2024-10-24] MEDS: FORMOTEROL FUMARATE 20 MCG/2 ML NEBU INHALATION SCH (08:02)
[2024-10-24] MEDS: BUDESONIDE 1 MG/2 ML NEBU INHALATION SCH (08:02)
[2024-10-24] MEDS: PANTOPRAZOLE 40 MG/10 ML VIAL IV SCH (08:33)
[2024-10-24] MEDS: FUROSEMIDE 10 MG/ML 4 ML VIAL IV SCH (08:34)
[2024-10-24] MEDS ORDERED: NITROGLYCERIN SL TABS 0.4 MG TAB SUBLINGUAL PRN (10:56)
[2024-10-24] MEDS: SYMBICORT 160-4.5 MCG INHALER INHALATION SCH (11:02)
[2024-10-24] MEDS: LEVOTHYROXINE 100 MCG TAB PO SCH (11:50)
[2024-10-24] MEDS: busPIRone HCl 10 MG TAB PO SCH (11:50)
[2024-10-24] MEDS: APIXABAN 5 MG TAB PO SCH (11:50)
[2024-10-24] MEDS: FOLIC ACID 1 MG TAB PO SCH (11:50)
[2024-10-24] MEDS: DAPAGLIFLOZIN PROPANEDIOL 10 MG TABLET PO SCH (11:50)
[2024-10-24] MEDS: ESCITALOPRAM 20 MG TAB PO SCH (11:51)
[2024-10-24] MEDS: HYDROcodone/APAP 5-325MG 1 EACH TAB PO PRN (11:51)
[2024-10-24] MEDS: NON FORMULARY DRUG (Pantoprazole Sodium [Protonix] 20 MG Tablet) PO SCH (12:05)
--- NOTE | 2024-10-24 12:07 | P.CRDCN ---
History of Present Illness Consult date: 10/24/24 Consult reason: congestive heart failure History of present illness: This is a 74-year-old male patient of Dr. Smith with past medical history of coronary artery disease status post CABG in 1995 in [place] followed by PCI, paroxysmal atrial fibrillation, dementia, hyperlipidemia, hypertension, seizure disorder, thyroid disorder, AICD placement approximately 10 years ago in [place], AAA repair with Dr. Cook, ischemic cardiomyopathy, tobacco abuse, COPD. We have been asked to evaluate the patient for CHF. -EKG: Sinus tachycardia with frequent PVCs -Chest x-ray: Mild pulmonary vascular congestion. -Laboratory studies: WBC 11.8, hemoglobin 13.5. Venous pH 7.19, pCO2 59 and bicarb 22. Electrolytes within normal limits. BUN 24 creatinine 1.29. Lactic acid 5.7 with repeat 1.3. Troponin negative x 1. proBNP 3740. Cepheid viral panel not detected. -Home cardiac medications: Eliquis 5 mg twice daily, atorvastatin 40 mg at be dtipr, Farxiga 10 mg daily, Lasix 40 mg daily, losartan 25 mg daily, Lopressor 25 mg twice daily, Nitrostat as needed. -Cardiac catheterization performed 09/16/2023 revealed CAD 100% proximal LAD stenosis, 75% proximal circumflex stenosis, 100% RCA stenosis, occluded SVG to PDA, patent FIORE to LAD, SVG to diagonal with 95% stenosis, status post PCI of the SVG to diagonal. -Echocardiogram performed 04/25/24 revealed EF of 15 to 20% with moderate mitral regurgitation. Review Of Systems: At the time of my exam: CONSTITUTIONAL: Denies fever or chills. HEENT: Denies blurred vision, vision changes, or eye pain. Denies hemoptysis CARDIOVASCULAR: Denies chest pain. Denies orthopnea. Denies PND. Denies palpitations RESPIRATORY: Denies shortness of breath. GASTROINTESTINAL: Denies abdominal pain. Denies nausea or vomiting. HEMATOLOGIC: Denies bleeding disorders. GENITOURINARY: Denies any blood in urine. SKIN: Denies puritis. Denies rash. Physical examination: Gen: This is a 74-year-old male appears to be comfortable on BiPAP. VS: reviewed HEENT: Head is atraumatic, normocephalic. Pupils equal, round. Sclerae is anicteric. NECK: Supple. No JVD. LUNGS: Clear to auscultation. No wheezes or rhonchi. No intercostal retractions. HEART: Regular rate and rhythm. No murmur. ABDOMEN: Soft No tenderness. EXTREMITIES: No pedal edema. No calf tenderness. NEUROLOGICAL: Patient is awake, alert. Assessment: Acute hypoxic and hypercapnic respiratory failure secondary to accommodation of acute COPD exacerbation and acute on chronic systolic heart failure Acute on chronic systolic heart failure Acute COPD exacerbation Lactic acidosis, resolved Ischemic cardiomyopathy with EF of 15 to 20% status post AICD Paroxysmal atrial fibrillation currently in sinus rhythm Coronary artery disease status post CABG in 1995 followed by PCI of the SVG to diagonal Hypertension Hyperlipidemia History of AAA repair Seizure disorder Plan: Resume patient's home cardiac medications Continue IV Lasix 40 mg every 12 hours Monitor VARGAS, daily weights, electrolytes and renal function Obtain 2-D echocardiogram and Doppler study to assess cardiac structure and function Further recommendations to follow based upon clinical course Thank you kindly for this consultation. Nurse practitioner note has been reviewed, I agree with documented findings and plan of care. Patient was seen and examined. Past Medical History Past Medical History: Coronary Artery Disease (CAD), Heart Failure, COPD, Dementia, Hyperlipidemia, Hypertension, Myocardial Infarction ([place]), Seizure Disorder, Syncope, Thyroid Disorder Additional Past Medical History / Comment(s): Ischemic cardiomyopathy, EF 20- 25%, last seizure about 2 yrs ago, hypothyroid.neuropathy "WHEN HE WORKED HE HAD A CRUSHING INJURY -COLLAPSED LUNGS C/T AND HAS CHRONIC BACK PAIN"" pt states he is schizophrenic/bipolar. TRIPLE A REPAIR AUG 2022 Last Myocardial Infarction Date:: unk History of Any Multi-Drug Resistant Organisms: None Reported Past Surgical History: AICD, Back Surgery, Coronary Bypass/CABG, Heart Cat heterization, Heart Catheterization With Stent Additional Past Surgical History / Comment(s): 1995 CABG 4 vessel in [place], has had 2"HEART CATHS/had 2 STENTS after cabg sx.pt stated they were done in [facility]. "sx on tailbone, cortisone injections, devin inguinal hernia repair Past Anesthesia/Blood Transfusion Reactions: No Reported Reaction Date of Last Stent Placement:: 1995 Type of Cardiac Device: AICD Device Placement Date:: 1995 in [facility] Past Psychological History: Anxiety, Depression, Schizoaffective Disorder, Schiz ophrenia Smoking Status: Current every day smoker Past Alcohol Use History: None Reported Past Drug Use History: None Reported - Past Family History Mother Family Medical History: Respiratory Disorder Additional Family Medical History / Comment(s): Mother had TB Father Additional Family Medical History / Comment(s): Father was an alcoholic, was killed in a motor vehicle accident Medications and Allergies Home Medications Medication Instructions Recorded Confirmed Type Cyanocobalamin (Vitamin B-12) 1,000 mcg PO DAILY@0800 08/23/22 10/24/24 History [Vitamin B-12] Acetaminophen [Tylenol 8 Hour] 650 mg PO TID@0800,1400,199909/17/23 10/24/24 History Atorvastatin Calcium [Lipitor] 40 mg PO HS@199909/17/23 10/24/24 History Folic Acid 0.4 mg PO DAILY@79909/17/23 10/24/24 History Levothyroxine Sodium [Synthroid] 100 mcg PO DAILY@0709/17/23 10/24/24 History Mirtazapine 30 mg PO HS@199909/17/23 10/24/24 History Nitroglycerin Sl Tabs [Nitrostat] 0.4 mg SUBLINGUAL Q5M PRN 90 Days 09/21/23 10/24/24 Rx #100 tab Budesonide-Formot 160-4.5 Mcg 2 puff INHALATION RT-BID@799,199910/16/23 10/24/24 History [Symbicort 160-4.5 Mcg Inhaler] Dapagliflozin Propanediol [Farxiga] 10 mg PO DAILY@79910/16/23 10/24/24 History Losartan [Cozaar] 25 mg PO DAILY@79910/16/23 10/24/24 History Budesonide 0.5 mg INHALATION RT-BID@0900,1800 03/03/24 10/24/24 History Escitalopram [Lexapro] 20 mg PO DAILY@79904/09/24 10/24/24 History HYDROcodone/APAP 5-325MG [[place] 1 tab PO Q6HR PRN #10 tab 04/10/24 10/24/24 Rx 5-325] Ipratropium-Albuterol Nebulize 3 ml INHALATION RT-QID 04/13/24 10/24/24 History [Duoneb 0.5 mg-3 mg/3 ml Soln] Melatonin 10 mg PO HS@199904/13/24 10/24/24 History Sennosides/Docusate Sodium 2 tab PO HS@199904/24/24 10/24/24 History [Senna-S 8.6-50 mg Tablet] Furosemide [Lasix] 40 mg PO DAILY #30 tab 04/26/24 10/24/24 Rx Metoprolol Tartrate [Lopressor] 25 mg PO BID #60 tab 04/26/24 10/24/24 Rx Pantoprazole Sodium [Protonix] 20 mg PO BID #60 tab 04/26/24 10/24/24 Rx metroNIDAZOLE 500 mg PO BID 7 Days #14 tablet 09/15/24 10/24/24 Rx Apixaban [Eliquis] 5 mg PO BID@0800,199910/24/24 10/24/24 History busPIRone HCl [Buspar] 10 mg PO BID@0800,199910/24/24 10/24/24 History Allergies Allergy/AdvReac Type Severity Reaction Status Date / Time morphine Allergy Anaphylaxis Verified 10/24/24 07:59 Penicillins Allergy Swelling Verified 10/24/24 07:59 on entire body Influenza Virus Vaccines AdvReac Unknown Verified 10/24/24 07:59 pneumococcal vaccine AdvReac Unknown Verified 10/24/24 07:59 Physical Exam Vitals: Vital Signs Temp Pulse Resp BP Pulse Ox FiO2 10/24/24 07:23 63 12 108/63 98 10/24/24 06:22 58 L 18 100/64 100 10/24/24 06:05 70 18 90/69 98 10/24/24 04:55 63 18 123/61 98 10/24/24 04:32 69 18 105/87 100 10/24/24 03:51 66 10/24/24 03:42 65 10/24/24 03:26 65 22 110/65 98 10/24/24 03:14 67 24 115/71 99 10/24/24 03:09 80 10/24/24 03:02 87 32 H 119/98 100 10/24/24 02:59 85 10/24/24 02:50 100 10/24/24 02:43 97.5 F L 112 H 45 H 194/165 97 Intake and Output 10/23/24 10/24/24 10/24/24 22:59 06:59 14:59 Other: Weight 83.915 kg Results 10/24/24 02:50 10/24/24 02:50 Cardiac Enzymes 10/24/24 10/24/24 Range/Units 02:50 02:50 AST 44 (17-59) U/L Troponin I <0.012 (0.000-0.034) ng/mL Coagulation 10/24/24 Range/Units 02:50 PT 11.4 (10.0-12.5) sec APTT 24.0 (22.0-30.0) sec CBC 10/24/24 Range/Units 02:50 WBC 11.8 H (3.8-10.6) k/uL RBC 4.98 (4.30-5.90) m/uL Hgb 13.5 (13.0-17.5) gm/dL Hct 46.4 (39.0-53.0) % Plt Count 214 (150-450) k/uL Comprehensive Metabolic Panel 10/24/24 Range/Units 02:50 Sodium 142 (137-145) mmol/L Potassium 5.1 (3.5-5.1) mmol/L Chloride 105 (98-107) mmol/L Carbon Dioxide 22 (22-30) mmol/L BUN 24 H (9-20) mg/dL Creatinine 1.29 H (0.66-1.25) mg/dL Glucose 164 H (74-99) mg/dL Calcium 9.7 (8.4-10.2) mg/dL AST 44 (17-59) U/L ALT 33 (4-49) U/L Alkaline Phosphatase 80 (38-126) U/L Total Protein 8.6 H (6.3-8.2) g/dL Albumin 5.2 H (3.5-5.0) g/dL Current Medications Generic Name Dose Route Start Last Admin Trade Name Freq PRN Reason Stop Dose Admin Albuterol/Ipratropium 3 ml 10/24/24 08:00 Ipratropium-Albuterol 3 Ml Neb INHALATION RT-QID RADHA Budesonide 1 mg 10/24/24 08:00 Budesonide 1 Mg/2 Ml Nebu INHALATION RT-BID [facility] Formoterol Fumarate 20 mcg 10/24/24 08:00 Formoterol Fumarate 20 Mcg/2 Ml Nebu INHALATION RT-BID [facility] Furosemide 40 mg 10/24/24 09:00 Furosemide 10 Mg/Ml 4 Ml Vial IV Q12HR RADHA Hydromorphone HCl 1 mg 10/24/24 04:11 Hydromorphone 1 Mg/Ml 1 Ml Syringe IVP Q3HR PRN Severe Pain (Scale 7 to 10) Sodium Chloride 1,000 mls @ 130 mls/hr 10/24/24 03:00 10/24/24 03:01 Saline 0.9% IV 130 mls/hr .[id number] RADHA Administration Sodium Chloride 1,000 mls @ 75 mls/hr 10/24/24 04:15 10/24/24 04:17 Saline 0.9% IV 75 mls/hr .[id number] RADHA Administration Methylprednisolone Sodium Succinate 60 mg 10/24/24 06:00 10/24/24 05:29 Methylprednisolone Sod Succi 125 Mg/2 Ml Vial IV 60 mg Q6HR RADHA Administration Naloxone HCl 0.2 mg 10/24/24 04:11 Naloxone 0.4 Mg/Ml 1 Ml Vial IV Q2M PRN Opioid Reversal Ondansetron HCl 4 mg 10/24/24 04:11 Ondansetron 4 Mg/2 Ml Vial IVP Q8HR PRN Nausea And Vomiting Pantoprazole Sodium 40 mg 10/24/24 09:00 Pantoprazole 40 Mg/10 Ml Vial IV DAILY RADHA Intake and Output 10/23/24 10/24/24 10/24/24 22:59 06:59 14:59 Other: Weight 83.915 kg 10/24/24 02:50 10/24/24 02:50
[2024-10-24] MEDS: ACETAMINOPHEN TAB 500 MG TAB PO SCH (13:21)
[2024-10-24] MEDS: HYDROmorphone 1 MG/ML 1 ML SYRINGE IVP PRN (18:35)
--- NOTE | 2024-10-24 18:39 | P.HPIM ---
History of Present Illness H&P Date: 10/24/24 Chief Complaint: Short of breath pleasant 74-year-old male, follows with visiting physicians Dr. Quispe. With a past medical history of CAD status post CABG x 4 followed by stent placement x 2, nonischemic cardiomyopathy status post AICD placement, hypertension, hyperlipidemia, COPD, hypothyroidism, anxiety with depression, schizoaffective disorder, schizophrenia, and nicotine dependence. Patient lives in assisted living. Patient was brought in by the EMS for acute shortness of breath about 50 minutes prior to their arrival. He took his inhaler did not have any relief. Patient's pulse ox initially was 90 in the room air. He was wheezing. He was placed on CPAP.. Because of shortness of breath patient really cannot speak too well. Is got a cough. Very yellow sputum. Feels rather tired. Symptoms within the last 24 hours. Does use a walker. Review of systems: GEN.: Tired EYES: None HEENT: Decreased hearing e NECK: None RESPIRATORY: As above CARDIOVASCULAR: None GASTROINTESTINAL: None GENITOURINARY: None MUSCULOSKELETAL: [Some joint pains LYMPHATICS: None HEMATOLOGICAL: None PSYCHIATRY: A bit forgetful NEUROLOGICAL: None Social history: 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 Possible smoker. At assisted living[facility] On examination: VITAL SIGNS: 97.5, 61, 20, 121 x 61, 99% on BiPAP FiO2 60% GENERAL APPEARANCE: BMI 25.8, laying in bed. Tired. HEENT: Normal external appearance of nose and ear. Oral cavity normal, decreased hearing EYES: Pupils equal. Conjunctiva normal. NECK: JVD not raised. Mass not palpable. RESPIRATORY: Respiratory effort increased, diminished breath sounds slight crackles CARDIOVASCULAR: First and second sounds normal. No edema. ABDOMEN: Soft. Liver and spleen not palpable. No tenderness. No mass palpable. PSYCHIATRY: Tired but able to answer simple questions Neurological: Cranial nerves grossly intact. Moving all 4 limbs. Musculoskeletal: OA.. INVESTIGATIONS, reviewed in the clinical context: October 24, 2024: White count 9.8 hemoglobin 13.5 platelets 214 sodium 142 potassium 5.1 BUN 24 creatinine 1.29 lactic acid 5.7 repeat 1.3. proBNP 3740 Influenza type A, type B, RSV, SARS-CoV-2: Not detected EKG tracing personally reviewed by -Dawson. Nonspecific ST-T wave changes. Chest x-ray film personally reviewed by me-possible infiltrate. Adjacent to the right heart border Previous studies 2D echocardiogram: EF 15 to 20%. Global hypokinesia. Moderate mitral regurgitation. Assessment and Plan -Acute on chronic systolic heart failure exacerbation, secondary to ischemic systolic dysfunction EF 15 to 20%: IV Lasix. 40 mg every 12. I's and O's. Follow labs -Acute hypoxic respiratory failure combination of COPD exacerbation, pneumonia, CHF On BiPAP this morning -Moderate mitral regurgitation -Probable right-sided pneumonia suspect gram-negative organism IV ceftriaxone -CAD status post CABG x 4 and stent placement x 2 -Essential hypertension Lopressor-hold for now. -Chronic kidney disease stage III likely nephrosclerosis Follow renal function -Hyperlipidemia Lipitor -Hypothyroidism Levothyroxine 100 mcg daily. -COPD, with acute exacerbation DuoNeb 4 times daily. IV Solu-Medrol -Chronic hypoxic respiratory failure from underlying COPD Home oxygen -Full code -Legal guardian- Past Medical History Past Medical History: Coronary Artery Disease (CAD), Heart Failure, COPD, Dementia, Hyperlipidemia, Hypertension, Myocardial Infarction (AK), Seizure Disorder, Syncope, Thyroid Disorder Additional Past Medical History / Comment(s): Ischemic cardiomyopathy, EF 20- 25%, last seizure about 2 yrs ago, hypothyroid.neuropathy "WHEN HE WORKED HE HAD A CRUSHING INJURY -COLLAPSED LUNGS C/T AND HAS CHRONIC BACK PAIN"" pt states he is schizophrenic/bipolar. TRIPLE A REPAIR AUG 2022 Last Myocardial Infarction Date:: unk History of Any Multi-Drug Resistant Organisms: None Reported Past Surgical History: AICD, Back Surgery, Coronary Bypass/CABG, Heart Catheterization, Heart Catheterization With Stent Additional Past Surgical History / Comment(s): 1995 CABG 4 vessel in [place], has had 2"HEART CATHS/had 2 STENTS after cabg sx.pt stated they were done in [facility]. "sx on tailbone, cortisone injections, devin inguinal hernia repair Past Anesthesia/Blood Transfusion Reactions: No Reported Reaction Date of Last Stent Placement:: 1995 Type of Cardiac Device: AICD Device Placement Date:: 1995 in [facility] Past Psychological History: Anxiety, Depression, Schizoaffective Disorder, Schizophrenia Smoking Status: Current every day smoker Past Alcohol Use History: None Reported Past Drug Use History: None Reported - Past Family History Mother Family Medical History: Respiratory Disorder Additional Family Medical History / Comment(s): Mother had TB Father Additional Family Medical History / Comment(s): Father was an alcoholic, was killed in a motor vehicle accident Medications and Allergies Home Medications Medication Instructions Recorded Confirmed Type Cyanocobalamin (Vitamin B-12) 1,000 mcg PO DAILY@0800 08/23/22 10/24/24 History [Vitamin B-12] Acetaminophen [Tylenol 8 Hour] 650 mg PO TID@0800,1399,199909/17/23 10/24/24 History Atorvastatin Calcium [Lipitor] 40 mg PO HS@199909/17/23 10/24/24 History Folic Acid 0.4 mg PO DAILY@79909/17/23 10/24/24 History Levothyroxine Sodium [Synthroid] 100 mcg PO DAILY@69909/17/23 10/24/24 History Mirtazapine 30 mg PO HS@199909/17/23 10/24/24 History Nitroglycerin Sl Tabs [Nitrostat] 0.4 mg SUBLINGUAL Q5M PRN 90 Days 09/21/23 10/24/24 Rx #100 tab Budesonide-Formot 160-4.5 Mcg 2 puff INHALATION RT-BID@799,199910/16/23 10/24/24 History [Symbicort 160-4.5 Mcg Inhaler] Dapagliflozin Propanediol [Farxiga] 10 mg PO DAILY@79910/16/23 10/24/24 History Losartan [Cozaar] 25 mg PO DAILY@79910/16/23 10/24/24 History Budesonide 0.5 mg INHALATION RT-BID@0900,1800 03/03/24 10/24/24 History Escitalopram [Lexapro] 20 mg PO DAILY@79904/09/24 10/24/24 History HYDROcodone/APAP 5-325MG [[place] 1 tab PO Q6HR PRN #10 tab 04/10/24 10/24/24 Rx 5-325] Ipratropium-Albuterol Nebulize 3 ml INHALATION RT-QID 04/13/24 10/24/24 History [Duoneb 0.5 mg-3 mg/3 ml Soln] Melatonin 10 mg PO HS@199904/13/24 10/24/24 History Sennosides/Docusate Sodium 2 tab PO HS@199904/24/24 10/24/24 History [Senna-S 8.6-50 mg Tablet] Furosemide [Lasix] 40 mg PO DAILY #30 tab 04/26/24 10/24/24 Rx Metoprolol Tartrate [Lopressor] 25 mg PO BID #60 tab 04/26/24 10/24/24 Rx Pantoprazole Sodium [Protonix] 20 mg PO BID #60 tab 04/26/24 10/24/24 Rx metroNIDAZOLE 500 mg PO BID 7 Days #14 tablet 09/15/24 10/24/24 Rx Apixaban [Eliquis] 5 mg PO BID@0800,199910/24/24 10/24/24 History busPIRone HCl [Buspar] 10 mg PO BID@0800,199910/24/24 10/24/24 History Allergies Allergy/AdvReac Type Severity Reaction Status Date / Time morphine Allergy Anaphylaxis Verified 10/24/24 07:59 Penicillins Allergy Swelling Verified 10/24/24 07:59 on entire body Influenza Virus Vaccines AdvReac Unknown Verified 10/24/24 07:59 pneumococcal vaccine AdvReac Unknown Verified 10/24/24 07:59 Physical Exam Vitals: Vital Signs Temp Pulse Resp BP Pulse Ox FiO2 10/24/24 10:15 55 L 16 98/50 100 10/24/24 08:38 59 L 10/24/24 08:21 57 L 10/24/24 08:04 54 L 80 10/24/24 07:23 63 12 108/63 98 10/24/24 06:22 58 L 18 100/64 100 10/24/24 06:05 70 18 90/69 98 10/24/24 04:55 63 18 123/61 98 10/24/24 04:32 69 18 105/87 100 10/24/24 03:51 66 10/24/24 03:42 65 10/24/24 03:26 65 22 110/65 98 10/24/24 03:14 67 24 115/71 99 10/24/24 03:09 80 10/24/24 03:02 87 32 H 119/98 100 10/24/24 02:59 85 10/24/24 02:50 100 10/24/24 02:43 97.5 F L 112 H 45 H 194/165 97 Intake and Output 10/23/24 10/24/24 10/24/24 22:59 06:59 14:59 Other: Weight 83.915 kg Results CBC & Chem 7: 10/24/24 02:50 10/24/24 02:50 Labs: Abnormal Lab Results - Last 24 Hours (Table) 10/24/24 10/24/24 10/24/24 Range/Units 02:50 02:50 02:50 WBC 11.8 H (3.8-10.6) k/uL MCHC 29.2 L (31.0-37.0) g/dL RDW 16.2 H (11.5-15.5) % Lymphocytes # 6.0 H (1.0-4.8) k/uL VBG pH (7.31-7.41) VBG pCO2 (37-51) mmHg VBG HCO3 (24-28) mmol/L BUN 24 H (9-20) mg/dL Creatinine 1.29 H (0.66-1.25) mg/dL Glucose 164 H (74-99) mg/dL Plasma Lactic Acid Rigoberto 5.7 H* (0.7-2.0) mmol/L Phosphorus 4.6 H (2.5-4.5) mg/dL Total Protein 8.6 H (6.3-8.2) g/dL Albumin 5.2 H (3.5-5.0) g/dL 10/24/24 Range/Units 02:50 WBC (3.8-10.6) k/uL MCHC (31.0-37.0) g/dL RDW (11.5-15.5) % Lymphocytes # (1.0-4.8) k/uL VBG pH 7.19 L* (7.31-7.41) VBG pCO2 59 H (37-51) mmHg VBG HCO3 22 L (24-28) mmol/L BUN (9-20) mg/dL Creatinine (0.66-1.25) mg/dL Glucose (74-99) mg/dL Plasma Lactic Acid Rigoberto (0.7-2.0) mmol/L Phosphorus (2.5-4.5) mg/dL Total Protein (6.3-8.2) g/dL Albumin (3.5-5.0) g/dL
[2024-10-24] MEDS: ATORVASTATIN 40 MG TAB PO SCH (19:54)
[2024-10-24] MEDS: SENNOSIDES-DOCUSATE SODIUM 1 EACH TAB PO SCH (19:54)
[2024-10-24] MEDS: MELATONIN 5 MG TABLET PO SCH (19:55)
[2024-10-24] MEDS: MIRTAZAPINE 15 MG TAB PO SCH (19:56)
[2024-10-25 06:13] LABS: Glucose,Whole Blood 180 mg/dL (70-110)
[2024-10-25 09:05] LABS: ALT 25 U/L (4-49); AST 28 U/L (17-59); African American GFR (CKD) 66 (>60 ml/min/1.73 sqM); Alkaline Phosphatase 68 U/L (38-126); Anion Gap 8 mmol/L; Anisocytosis Slight; Basophils % (A) 0 %; Blood Urea Nitrogen 37 mg/dL (9-20); Calcium 8.5 mg/dL (8.4-10.2); Carbon Dioxide 26 mmol/L (22-30); Chloride 106 mmol/L (98-107); Eosinophils % (A) 0 %; Glucose 161 mg/dL (74-99); HCT 37.6 % (39.0-53.0); HGB 11.2 gm/dL (13.0-17.5); Hypochromasia Moderate; Lymphocytes # (A) 0.8 k/uL (1.0-4.8); Lymphocytes % (A) 10 %; MCHC 29.9 g/dL (31.0-37.0); MCV 90.2 fL (80.0-100.0); Magnesium 2.3 mg/dL (1.6-2.3); Mean Platelet Volume 8.6; Monocytes # (A) 0.2 k/uL (0-1.0); Monocytes % (A) 2 %; Neutrophils # (A) 6.5 k/uL (1.3-7.7); Neutrophils % (A) 87 %; Non-African American GFR(CKD) 57 (>60 ml/min/1.73 sqM); Phosphorus 3.4 mg/dL (2.5-4.5); Platelet Count 167 k/uL (150-450); Potassium 4.1 mmol/L (3.5-5.1); RBC 4.17 m/uL (4.30-5.90); RDW 16.2 % (11.5-15.5); Sodium 140 mmol/L (137-145); Total Bilirubin 0.5 mg/dL (0.2-1.3); Total Protein 6.7 g/dL (6.3-8.2); WBC 7.5 k/uL (3.8-10.6)
[2024-10-25] MEDS: CYANOCOBALAMIN 500 MCG TAB PO SCH (09:10)
[2024-10-25 11:57] LABS: Glucose,Whole Blood 166 mg/dL (70-110)
--- NOTE | 2024-10-25 15:09 | P.PN ---
Subjective Progress Note Date: 10/25/24 Consult reason: congestive heart failure History of present illness: This is a 74-year-old male patient of Dr. Smith with past medical history of coronary artery disease status post CABG in 1995 in [place] followed by PCI, paroxysmal atrial fibrillation, dementia, hyperlipidemia, hypertension, seizure disorder, thyroid disorder, AICD placement approximately 10 years ago in [place], AAA repair with Dr. Cook, ischemic cardiomyopathy, tobacco abuse, COPD. We have been asked to evaluate the patient for CHF. -EKG: Sinus tachycardia with frequent PVCs -Chest x-ray: Mild pulmonary vascular congestion. -Laboratory studies: WBC 11.8, hemoglobin 13.5. Venous pH 7.19, pCO2 59 and bicarb 22. Electrolytes within normal limits. BUN 24 creatinine 1.29. Lactic acid 5.7 with repeat 1.3. Troponin negative x 1. proBNP 3740. Cepheid viral panel not detected. -Home cardiac medications: Eliquis 5 mg twice daily, atorvastatin 40 mg at bedtime, Farxiga 10 mg daily, Lasix 40 mg daily, losartan 25 mg daily, Lopressor 25 mg twice daily, Nitrostat as needed. -Cardiac catheterization performed 09/16/2023 revealed CAD 100% proximal LAD stenosis, 75% proximal circumflex stenosis, 100% RCA stenosis, occluded SVG to PDA, patent FIORE to LAD, SVG to diagonal with 95% stenosis, status post PCI of the SVG to diagonal. -Echocardiogram performed 04/25/24 revealed EF of 15 to 20% with moderate mitral regurgitation. 10/25 Patient seen and examined on the cardiac stepdown unit. Patient continues to be on BiPAP, pulse ox 99%, blood pressure 135/72, heart rate 71. Repeat blood work reveals hemoglobin 11.2, BUN 37 creatinine 1.25. Patient has been maintained on IV Lasix 40 mg every 12 hours. Weights and VARGAS's do not appear to be accurate. Echocardiogram is pending. Physical examination: Gen: This is a 74-year-old male appears to be comfortable on BiPAP. VS: reviewed HEENT: Head is atraumatic, normocephalic. Pupils equal, round. Sclerae is anicte saul. NECK: Supple. No JVD. LUNGS: Clear to auscultation. No wheezes or rhonchi. No intercostal re tractions. HEART: Regular rate and rhythm. No murmur. ABDOMEN: Soft No tenderness. EXTREMITIES: No pedal edema. No calf tenderness. NEUROLOGICAL: Patient is awake, alert. Assessment: Acute hypoxic and hypercapnic respiratory failure secondary to accommodation of acute COPD exacerbation and acute on chronic systolic heart failure Acute on chronic systolic heart failure Acute COPD exacerbation Lactic acidosis, resolved Ischemic cardiomyopathy with EF of 15 to 20% status post AICD Paroxysmal atrial fibrillation currently in sinus rhythm Coronary artery disease status post CABG in 1995 followed by PCI of the SVG to diagonal Hypertension Hyperlipidemia History of AAA repair Seizure disorder Plan: Continue patient's home cardiac medications: Eliquis, atorvastatin Continue IV Lasix 40 mg every 12 hours Monitor VARGAS, daily weights, electrolytes and renal function Obtain 2-D echocardiogram and Doppler study to assess cardiac structure and function Further recommendations to follow based upon clinical course Thank you kindly for this consultation. Nurse practitioner note has been reviewed, I agree with documented findings and plan of care. Patient was seen and examined. Objective - Vital Signs Vital signs: Vital Signs Temp 97.3 F L 10/25/24 09:10 Pulse 60 10/25/24 12:06 Resp 20 10/25/24 12:00 BP 126/71 10/25/24 12:00 Pulse Ox 97 10/25/24 12:00 FiO2 50 10/25/24 09:10 Intake & Output 10/24/24 10/25/24 10/25/24 18:59 06:59 18:59 Intake Total 10 Output Total 600 Balance -590 Weight 83.915 kg Intake: IV 10 Invasive Line 2 10 Output: Urine 600 Other: Voiding Method External Catheter External Catheter - Labs CBC & Chem 7: 10/25/24 08:28 10/25/24 08:28 Labs: Abnormal Lab Results - Last 24 Hours (Table) 10/25/24 10/25/24 10/25/24 Range/Units 06:11 08:28 08:28 RBC 4.17 L (4.30-5.90) m/uL Hgb 11.2 L (13.0-17.5) gm/dL Hct 37.6 L (39.0-53.0) % MCHC 29.9 L (31.0-37.0) g/dL RDW 16.2 H (11.5-15.5) % Lymphocytes # 0.8 L (1.0-4.8) k/uL BUN 37 H (9-20) mg/dL Glucose 161 H (74-99) mg/dL POC Glucose (mg/dL) 180 H (70-110) mg/dL 10/25/24 Range/Units 11:56 RBC (4.30-5.90) m/uL Hgb (13.0-17.5) gm/dL Hct (39.0-53.0) % MCHC (31.0-37.0) g/dL RDW (11.5-15.5) % Lymphocytes # (1.0-4.8) k/uL BUN (9-20) mg/dL Glucose (74-99) mg/dL POC Glucose (mg/dL) 166 H (70-110) mg/dL
[2024-10-25 16:38] LABS: Glucose,Whole Blood 152 mg/dL (70-110)
--- NOTE | 2024-10-25 18:12 | CA ---
Transthoracic Echo Report Name: Magaly Morales Age: 74 Gender: M : 1950 Exam Date: 10/25/2024 08:13 Exam Location: [facility] Ht (in): 71 Wt (lb): 185 Ordering Physician: Yolanda Wei Attending/Referring Phys: [id number], Eriberto [employer] Niraj Mccallum RDCS Procedure CPT: Indications: LVF Cardiac Hx: CAD, CABG, Stents, HTN, COPD, MD / Limited for LVF Technical Quality: Good Contrast 1: Total Dose (mL): Contrast 2: Total Dose (mL): MEASUREMENTS (Male / Female) Normal Values 2D ECHO LV Diastolic Volume MOD 4C 156.6 cm??? LV Systolic Volume MOD 4C 108.0 cm??? LV Ejection Fraction MOD 4C 31.1 % LV Cardiac Index MOD 4C 1487.5 cm???/min???m??? LV Diastolic Length 4C 8.9 cm LV Systolic Length 4C 7.9 cm LV Diastolic Volume MOD 2C 222.2 cm??? LV Systolic Volume MOD 2C 153.0 cm??? LV Ejection Fraction MOD 2C 31.1 % LV Cardiac Index MOD 2C 2115.8 cm???/min???m??? LV Diastolic Length 2C 8.7 cm LV Systolic Length 2C 8.1 cm DOPPLER AV Peak Velocity 108.5 cm/s AV Peak Gradient 4.7 mmHg AV Mean Velocity 72.8 cm/s AV Mean Gradient 2.3 mmHg AV Velocity Time Integral 23.5 cm LVOT Peak Velocity 44.6 cm/s LVOT Peak Gradient 0.8 mmHg LVOT Velocity Time Integral 19.8 cm MR Flow Rate PISA 188.5 cm???/s TR Peak Velocity 278.0 cm/s TR Peak Gradient 30.9 mmHg Right Atrial Pressure 10.0 mmHg Pulmonary Artery Systolic Pressu 40.9 mmHg Right Ventricular Systolic Press 40.9 mmHg FINDINGS Left Ventricle Left ventricular ejection fraction is estimated at 20-25 %. Severe hypokinesis more noted in the inferoapical wall Right Ventricle Normal right ventricular size and function. Mild pulm hypertension Right Atrium Left Atrium Left atrial dilatation. Mitral Valve Mitral valve thickened. No mitral stenosis. [id number] mitral regurgitation. Aortic Valve Trileaflet aortic valve. Thickened aortic valve without stenosis. No aortic stenosis. No aortic regurgitation. Tricuspid Valve Structurally normal tricuspid valve. Mild to moderate tricuspid regurgitation. Pulmonic Valve Pericardium No pericardial effusion. Aorta CONCLUSIONS Limited echo. Severely impaired left ventricular systolic function Moderate severe mitral regurgitation Mild to moderate tricuspid regurgitation with mild pulmonary hypertension Previewed by: Dr. Shade Petty MD (Electronically Signed) Final Date: 25 October 2024 18:11
--- NOTE | 2024-10-25 19:30 | P.PN ---
Subjective Progress Note Date: 10/25/24 Patient is a 74-year-old male with past medical history significant for coronary artery disease with CABG, ischemic cardiomyopathy with ejection fraction 15 to 20%, AICD, hypertension, hypothyroidism, COPD, seizure disorder, dementia. I believe the patient resides at an [facility] home. He was sent to the emergency department early this morning in a state of acute respiratory distress. Placed on BiPAP. Did receive a one-time dose of Lasix 60 mg. Workup includes a chest x-ray showing pulmonary vascular congestion. There is an AICD/pacemaker. NT proBNP was elevated at 3740. CBC: WBC count 11.8, hemoglobin 13.5, platelets 214. CMP: Sodium 142, potassium 5.1, chloride 105, serum bicarb 22, BUN 24, creatinine 1.29, glucose 164. Lactic was elevated at 5.7. Normal saline infusing at 75 mL/h. Troponin less than 0.012. NT proBNP 3740. VBG with a pCO2 of 59 and pH of 7.19. Currently, patient is being evaluated emergency department. He is lethargic, awakens to verbal stimuli, and follows simple commands. Does not readily participate with interview. Remains on BiPAP with settings 14/7 and FiO2 80%. Breathing appears nonlabored. Achieving tidal labs around 400. Has voided once since receiving his Lasix. Current vital signs: Temperature 97.5 F, heart rate 69 bpm, blood pressure 105/87 mmHg, respiratory rate nontachypneic, on BiPAP with above-mentioned settings, SpO2 reading 100%. On today's evaluation of 10/25/2024, the patient is being seen for a follow-up. Patient is being treated for an acute exacerbation of CHF/COPD. The patient is known to have severe ischemic cardiomyopathy with an ejection fraction of 15 to 20%. He is also known to have COPD, hypertension and hypothyroidism and atrial fibrillation. Note that, the patient was on BiPAP at a pressure of 14 over 7 cm of water. Improved compared to yesterday the patient is currently on 4 L nasal cannula. Feeling better. Less short of breath on today's evaluation. The white cell count is 7.7 with a hemoglobin 11.2 and a platelet count of 167. BUN 35 with a creatinine of 1.2 and a sodium is at 140 with a potassium level of 4.1. Bicarb is at 26. LFTs are normal. Procalcitonin level is 0.1. Echocardiogram was also completed and the patient was found to have impaired ejection fraction of 20 to 25% along with severe hypokinesis of the LV, moderate severe mitral regurgitation was also noted. The patient remains on IV Rocephin. The patient remains on bronchodilators. The patient remains on IV Solu-Medrol. The patient remains on IV Lasix 40 mg every 12 hours. Fluid balance is -900 cc at least. Objective - Vital Signs Vital signs: Vital Signs Temp 97.3 F L 10/25/24 09:10 Pulse 62 10/25/24 16:31 Resp 17 10/25/24 15:17 BP 131/70 10/25/24 15:17 Pulse Ox 99 10/25/24 15:17 FiO2 50 10/25/24 09:10 Intake & Output 10/25/24 10/25/24 10/26/24 06:59 18:59 06:59 Intake Total 10 Output Total 600 900 Balance -590 -900 Weight 83.915 kg Intake: IV 10 Invasive Line 2 10 Output: Urine 600 900 Other: Voiding Method External Catheter External Catheter - Exam GENERAL EXAM: Lethargic, 74-year-old male, awake and alert and currently on 40 of oxygen by nasal cannula HEAD: Normocephalic and atraumatic EYES: Normal reaction of pupils, equal size. NOSE: Clear with pink turbinates. THROAT: No erythema or exudates. NECK: No masses, no JVD. CHEST: No chest wall deformity. LUNGS: Equal air entry with no crackles, wheeze, rhonchi or dullness. Breathing is nonlabored. CVS: S1 and S2 normal with no audible murmur, regular rhythm. No extra heart sounds ABDOMEN: No hepatosplenomegaly, active bowel sounds, no guarding or rigidity. SPINE: No scoliosis or deformity SKIN: No rashes CENTRAL NERVOUS SYSTEM: No focal deficits, tone is normal in all 4 extremities. EXTREMITIES: There is no peripheral edema, clubbing, or cyanosis. Peripheral pulses are intact. - Labs CBC & Chem 7: 10/25/24 08:28 10/25/24 08:28 Labs: Abnormal Lab Results - Last 24 Hours (Table) 10/25/24 10/25/24 10/25/24 Range/Units 06:11 08:28 08:28 RBC 4.17 L (4.30-5.90) m/uL Hgb 11.2 L (13.0-17.5) gm/dL Hct 37.6 L (39.0-53.0) % MCHC 29.9 L (31.0-37.0) g/dL RDW 16.2 H (11.5-15.5) % Lymphocytes # 0.8 L (1.0-4.8) k/uL BUN 37 H (9-20) mg/dL Glucose 161 H (74-99) mg/dL POC Glucose (mg/dL) 180 H (70-110) mg/dL 10/25/24 10/25/24 Range/Units 11:56 16:37 RBC (4.30-5.90) m/uL Hgb (13.0-17.5) gm/dL Hct (39.0-53.0) % MCHC (31.0-37.0) g/dL RDW (11.5-15.5) % Lymphocytes # (1.0-4.8) k/uL BUN (9-20) mg/dL Glucose (74-99) mg/dL POC Glucose (mg/dL) 166 H 152 H (70-110) mg/dL Assessment and Plan Assessment: Acute exacerbation of systolic congestive heart failure, improving Acute COPD exacerbation Acute hypoxemic and hypercapnic respiratory failure, secondary to a combination of above, improving and the patient is currently off the BiPAP maintained on 4 L of O2 nasal cannula Lactic acidosis, 5.7, normalized History of CAD with previous CABG and subsequent cardiac stents Ischemic cardiomyopathy with an ejection fraction of 15 to 20% and moderate MR, status post AICD. Repeat echocardiogram shows moderate severe mitral regurgitation and ejection fraction of around 20 to 25% Paroxysmal atrial fibrillation, current rhythm is sinus and the patient has been maintained on anticoagulation with Eliquis on outpatient basis. Hypertension History of hyperlipidemia History of AAA with repair Chronic kidney disease stage IIIa History of hypothyroidism History of left inguinal hernia with repair History of dementia History of seizure [facility] resident Plan: Patient is currently off the BiPAP and transition to 4 L of oxygen by nasal cannula Clinically improved compared to yesterday May utilize the BiPAP overnight Continue IV Lasix 40 mg every 12 hours Monitor renal function electrolytes Continue metoprolol, losartan, Farxiga Continue bronchodilators, budesonide inhalation, formoterol inhalation Continue IV Solu-Medrol IV Rocephin as an empiric antibiotic coverage Check viral 4 Plex We will continue to follow Time with Patient: Greater than 30
[2024-10-25 20:10] LABS: Glucose,Whole Blood 198 mg/dL (70-110)
--- NOTE | 2024-10-25 20:25 | P.PN ---
Progress Note - Text Progress Note Date: 10/25/24 Chief Complaint: Short of breath pleasant 74-year-old male, follows with visiting physicians Dr. Quispe. With a past medical history of CAD status post CABG x 4 followed by stent placement x 2, nonischemic cardiomyopathy status post AICD placement, hypertension, hyperlipidemia, COPD, hypothyroidism, anxiety with depression, schizoaffective disorder, schizophrenia, and nicotine dependence. Patient lives in assisted living. Patient was brought in by the EMS for acute shortness of breath about 50 minutes prior to their arrival. He took his inhaler did not have any relief. Patient's pulse ox initially was 90 in the room air. He was wheezing. He was placed on CPAP.. Because of shortness of breath patient really cannot speak too well. Is got a cough. Very yellow sputum. Feels rather tired. Symptoms within the last 24 hours. Does use a walker. October 25: Remains on BiPAP. 50%. Ensure added. Short of breath. Tired. Cough. IV ceftriaxone. IV Solu-Medrol. DuoNeb. Active Medications Acetaminophen (Acetaminophen Tab 500 Mg Tab) 500 mg PO TID@0800,1399,1999 [facility] Last Admin: 10/25/24 19:47 Dose: 500 mg Hydrocodone Bitart/Acetaminophen (Hydrocodone/Apap 5-325mg 1 Each Tab) 1 each PO Q6HR PRN PRN Reason: Pain Last Admin: 10/24/24 22:39 Dose: 1 each Albuterol/Ipratropium (Ipratropium-Albuterol 3 Ml Neb) 3 ml INHALATION RT-QID [facility] Last Admin: 10/25/24 16:14 Dose: 3 ml Apixaban (Apixaban 5 Mg Tab) 5 mg PO BID@ [facility]; Protocol Last Admin: 10/25/24 19:47 Dose: 5 mg Atorvastatin Calcium (Atorvastatin 40 Mg Tab) 40 mg PO HS@1999 [facility] Last Admin: 10/25/24 19:47 Dose: 40 mg Budesonide/Formoterol Fumarate (Symbicort 160-4.5 Mcg Inhaler) 2 puff INHALATION RT-BID@ [facility] Last Admin: 10/25/24 08:33 Dose: 2 puff Buspirone HCl (Buspirone Hcl 10 Mg Tab) 10 mg PO BID@ [facility] Last Admin: 10/25/24 19:47 Dose: 10 mg Cyanocobalamin (Cyanocobalamin 500 Mcg Tab) 1,000 mcg PO DAILY@0800 [facility] Last Admin: 10/25/24 09:10 Dose: 1,000 mcg Dapagliflozin (Dapagliflozin Propanediol 10 Mg Tablet) 10 mg PO DAILY@0800 [facility] Last Admin: 10/25/24 09:11 Dose: 10 mg Escitalopram Oxalate (Escitalopram 20 Mg Tab) 20 mg PO DAILY@0800 [facility] Last Admin: 10/25/24 09:10 Dose: 20 mg Folic Acid (Folic Acid 1 Mg Tab) 1 mg PO DAILY@0800 [facility] Last Admin: 10/25/24 09:11 Dose: 1 mg Furosemide (Furosemide 10 Mg/Ml 4 Ml Vial) 40 mg IV Q12HR [facility] Last Admin: 10/25/24 19:46 Dose: 40 mg Hydromorphone HCl (Hydromorphone 1 Mg/Ml 1 Ml Syringe) 1 mg IVP Q3HR PRN PRN Reason: Severe Pain (Scale 7 to 10) Last Admin: 10/24/24 18:35 Dose: 1 mg Ceftriaxone Sodium 2 gm/ (Sodium Chloride) 50 mls @ 100 mls/hr IVPB Q24HR [facility]; Protocol Last Admin: 10/25/24 09:11 Dose: 100 mls/hr Levothyroxine Sodium (Levothyroxine 100 Mcg Tab) 100 mcg PO DAILY@0700 [facility] Last Admin: 10/25/24 05:57 Dose: 100 mcg Melatonin (Melatonin 5 Mg Tablet) 10 mg PO HS@1999 [facility] Last Admin: 10/25/24 19:47 Dose: 10 mg Methylprednisolone Sodium Succinate (Methylprednisolone Sod Succi 125 Mg/2 Ml Vial) 60 mg IV Q6HR [facility] Last Admin: 10/25/24 17:40 Dose: 60 mg Mirtazapine (Mirtazapine 15 Mg Tab) 30 mg PO HS@1999 [facility] Last Admin: 10/25/24 19:47 Dose: 30 mg Naloxone HCl (Naloxone 0.4 Mg/Ml 1 Ml Vial) 0.2 mg IV Q2M PRN PRN Reason: Opioid Reversal Nitroglycerin (Nitroglycerin Sl Tabs 0.4 Mg Tab) 0.4 mg SUBLINGUAL Q5M PRN PRN Reason: Chest Pain Ondansetron HCl (Ondansetron 4 Mg/2 Ml Vial) 4 mg IVP Q8HR PRN PRN Reason: Nausea And Vomiting Pantoprazole Sodium (Pantoprazole 40 Mg/10 Ml Vial) 40 mg IV DAILY [facility] Last Admin: 10/25/24 09:11 Dose: 40 mg Senna/Docusate Sodium (Sennosides-Docusate Sodium 1 Each Tab) 2 each PO HS@1999 [facility] Last Admin: 10/25/24 19:46 Dose: 2 each Social history: 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 Possible smoker. At assisted living- [place] On examination: VITAL SIGNS: 97.3, 71, 30, 135 x 72, 98% on BiPAP 25/02/50. GENERAL APPEARANCE: Laying in bed, short of breath HEENT: Normal external appearance of nose and ear. Oral cavity normal, decreased hearing EYES: Pupils equal. Conjunctiva normal. NECK: JVD not raised. Mass not palpable. RESPIRATORY: Respiratory effort increased, diminished breath sounds slight crackles CARDIOVASCULAR: First and second sounds normal. No edema. ABDOMEN: Soft. Liver and spleen not palpable. No tenderness. No mass palpable. PSYCHIATRY: Tired but able to answer simple questions Neurological: Cranial nerves grossly intact. Moving all 4 limbs. Musculoskeletal: OA.. INVESTIGATIONS, reviewed in the clinical context: October 25: White count 7.5 hemoglobin 11.2 platelets 167 potassium 4.1 creatinine 1.25 October 24, 2024: White count 9.8 hemoglobin 13.5 platelets 214 sodium 142 potassium 5.1 BUN 24 creatinine 1.29 lactic acid 5.7 repeat 1.3. proBNP 3740 Influenza type A, type B, RSV, SARS-CoV-2: Not detected EKG tracing personally reviewed by me-PVCs. Nonspecific ST-T wave changes. Chest x-ray film personally reviewed by me-possible infiltrate. Adjacent to the right heart border Previous studies 2D echocardiogram: EF 15 to 20%. Global hypokinesia. Moderate mitral regurgitation. Assessment and Plan -Acute on chronic systolic heart failure exacerbation, secondary to ischemic systolic dysfunction EF 15 to 20%: IV Lasix. 40 mg every 12. I's and O's. Follow labs -Acute hypoxic respiratory failure combination of COPD exacerbation, pneumonia, CHF: Slow to respond Is on BiPAP this morning -Moderate mitral regurgitation -Probable right-sided pneumonia suspect gram-negative organism IV ceftriaxone -CAD status post CABG x 4 and stent placement x 2 -Essential hypertension Lopressor-hold for now. -Chronic kidney disease stage III likely nephrosclerosis Follow renal function -Hyperlipidemia Lipitor -Hypothyroidism Levothyroxine 100 mcg daily. -COPD, with acute exacerbation: Slow to respond DuoNeb 4 times daily. IV Solu-Medrol 60 mg Q6 -Chronic hypoxic respiratory failure from underlying COPD Home oxygen -Full code -Legal guardian- Past Medical History Past Medical History: Coronary Artery Disease (CAD), Heart Failure, COPD, Dementia, Hyperlipidemia, Hypertension, Myocardial Infarction ([place]), Seizure Disorder, Syncope, Thyroid Disorder Additional Past Medical History / Comment(s): Ischemic cardiomyopathy, EF 20- 25%, last seizure about 2 yrs ago, hypothyroid.neuropathy "WHEN HE WORKED HE HAD A CRUSHING INJURY -COLLAPSED LUNGS C/T AND HAS CHRONIC BACK PAIN"" pt states he is schizophrenic/bipolar. TRIPLE A REPAIR AUG 2022 Last Myocardial Infarction Date:: unk History of Any Multi-Drug Resistant Organisms: None Reported Past Surgical History: AICD, Back Surgery, Coronary Bypass/CABG, Heart Catheterization, Heart Catheterization With Stent Additional Past Surgical History / Comment(s): 1995 CABG 4 vessel in [place], has had 2"HEART CATHS/had 2 STENTS after cabg sx.pt stated they were done in [facility]. "sx on tailbone, cortisone injections, devin inguinal hernia repair Past Anesthesia/Blood Transfusion Reactions: No Reported Reaction Date of Last Stent Placement:: 1995 Type of Cardiac Device: AICD Device Placement Date:: 1995 in [facility] Past Psychological History: Anxiety, Depression, Schizoaffective Disorder, Schizophrenia Smoking Status: Current every day smoker Past Alcohol Use History: None Reported Past Drug Use History: None Reported
[2024-10-26 06:12] LABS: Glucose,Whole Blood 161 mg/dL (70-110)
[2024-10-26 07:49] LABS: African American GFR (CKD) 69 (>60 ml/min/1.73 sqM); Anion Gap 8 mmol/L; Blood Urea Nitrogen 41 mg/dL (9-20); Calcium 8.4 mg/dL (8.4-10.2); Carbon Dioxide 29 mmol/L (22-30); Chloride 101 mmol/L (98-107); Glucose 148 mg/dL (74-99); Non-African American GFR(CKD) 59 (>60 ml/min/1.73 sqM); Potassium 3.6 mmol/L (3.5-5.1); Sodium 138 mmol/L (137-145)
[2024-10-26 11:49] LABS: Glucose,Whole Blood 166 mg/dL (70-110)
--- NOTE | 2024-10-26 14:15 | P.PN ---
Subjective Progress Note Date: 10/26/24 Consult reason: congestive heart failure History of present illness: This is a 74-year-old male patient of Dr. Smith with past medical history of coronary artery disease status post CABG in 1995 in [place] followed by PCI, paroxysmal atrial fibrillation, dementia, hyperlipidemia, hypertension, seizure disorder, thyroid disorder, AICD placement approximately 10 years ago in [place], AAA repair with Dr. Cook, ischemic cardiomyopathy, tobacco abuse, COPD. We have been asked to evaluate the patient for CHF. -EKG: Sinus tachycardia with frequent PVCs -Chest x-ray: Mild pulmonary vascular congestion. -Laboratory studies: WBC 11.8, hemoglobin 13.5. Venous pH 7.19, pCO2 59 and bicarb 22. Electrolytes within normal limits. BUN 24 creatinine 1.29. Lactic acid 5.7 with repeat 1.3. Troponin negative x 1. proBNP 3740. Cepheid viral panel not detected. -Home cardiac medications: Eliquis 5 mg twice daily, atorvastatin 40 mg at bedtime, Farxiga 10 mg daily, Lasix 40 mg daily, losartan 25 mg daily, Lopressor 25 mg twice daily, Nitrostat as needed. -Cardiac catheterization performed 09/16/2023 revealed CAD 100% proximal LAD stenosis, 75% proximal circumflex stenosis, 100% RCA stenosis, occluded SVG to PDA, patent FIORE to LAD, SVG to diagonal with 95% stenosis, status post PCI of the SVG to diagonal. -Echocardiogram performed 04/25/24 revealed EF of 15 to 20% with moderate mitral regurgitation. 10/25 Patient seen and examined on the cardiac stepdown unit. Patient continues to be on BiPAP, pulse ox 99%, blood pressure 135/72, heart rate 71. Repeat blood work reveals hemoglobin 11.2, BUN 37 creatinine 1.25. Patient has been maintained on IV Lasix 40 mg every 12 hours. Weights and VARGAS's do not appear to be accurate. Echocardiogram is pending. 10/26 Patient seen and examined. Patient has been maintained on IV Lasix 40 mg every 12 hours. Patient is now off BiPAP and on O2 at 4 L nasal cannula with pulse ox 94%. Heart rate is running in the 70s, blood pressure 108/56. Repeat blood work reveals potassium 3.6, BUN 41 creatinine 1.21. Patient has a negative fluid balance, no change in documented weight. Echocardiogram reveals EF of 20 to 25%, moderately severe mitral regurgitation, mild to moderate tricuspid regurgitation with mild pulmonary hypertension. Physical examination: Gen: This is a 74-year-old male appears to be comfortable VS: reviewed HEENT: Head is atraumatic, normocephalic. Pupils equal, round. Sclerae is anicteric. NECK: Supple. No JVD. LUNGS: Clear to auscultation. No wheezes or rhonchi. No intercostal retractions. HEART: Regular rate and rhythm. No murmur. ABDOMEN: Soft No tenderness. EXTREMITIES: No pedal edema. No calf tenderness. NEUROLOGICAL: Patient is awake, alert. Assessment: Acute hypoxic and hypercapnic respiratory failure secondary to combination of acute COPD exacerbation and acute on chronic systolic heart failure Acute on chronic systolic heart failure Acute COPD exacerbation Lactic acidosis, resolved Ischemic cardiomyopathy with EF of 15 to 20% status post AICD Paroxysmal atrial fibrillation currently in sinus rhythm Coronary artery disease status post CABG in 1995 followed by PCI of the SVG to diagonal Hypertension Hyperlipidemia History of AAA repair Seizure disorder Plan: Continue patient's home cardiac medications: Eliquis, atorvastatin Decrease IV Lasix 40 mg twice daily to once daily Monitor VARGAS, daily weights, electrolytes and renal function Further recommendations to follow based upon clinical course Nurse practitioner note has been reviewed, I agree with documented findings and plan of care. Patient was seen and examined. Objective - Vital Signs Vital signs: Vital Signs Temp 97.5 F L 10/26/24 08:29 Pulse 70 10/26/24 09:15 Resp 18 10/26/24 08:29 BP 131/76 10/26/24 08:29 Pulse Ox 94 L 10/26/24 09:05 FiO2 50 10/26/24 05:40 Intake & Output 10/25/24 10/26/24 10/26/24 18:59 06:59 18:59 Intake Total 10 10 Output Total 900 1050 800 Balance -900 -1300 -790 Intake: IV 10 10 Invasive Line 2 10 10 Output: Urine 900 1050 800 Other: Voiding Method External Catheter External Catheter - Labs CBC & Chem 7: 10/25/24 08:28 10/26/24 07:06 Labs: Abnormal Lab Results - Last 24 Hours (Table) 10/25/24 10/25/24 10/25/24 Range/Units 11:56 16:37 20:09 BUN (9-20) mg/dL Glucose (74-99) mg/dL POC Glucose (mg/dL) 166 H 152 H 198 H (70-110) mg/dL 10/26/24 10/26/24 Range/Units 06:10 07:06 BUN 41 H (9-20) mg/dL Glucose 148 H (74-99) mg/dL POC Glucose (mg/dL) 161 H (70-110) mg/dL
--- NOTE | 2024-10-26 14:29 | XR ---
EXAMINATION TYPE: XR chest 2V DATE OF EXAM: 10/26/2024 2:05 PM COMPARISON: Chest radiographs from 10/24/2024 CLINICAL INDICATION: Male, 74 years old with history of f/u pnuemonia/chf; [facility] TECHNIQUE: XR chest 2V Frontal and lateral views of the chest. FINDINGS: Lungs/Pleura: There is no evidence of pleural effusion, focal consolidation, or pneumothorax. Pulmonary vascularity: Unremarkable. Heart/mediastinum: Cardiomediastinal silhouette is unremarkable. Two lead cardiac conduction device o verlying the left hemithorax with lead tips projecting over the right ventricle and right atrium. Musculoskeletal: No acute osseous pathology. Midline sternotomy wires are noted. IMPRESSION: 1. No acute cardiopulmonary disease process. 2. COPD changes. [facility], , 10/26/2024 2:27 PM
[2024-10-26 17:01] LABS: Glucose,Whole Blood 152 mg/dL (70-110)
--- NOTE | 2024-10-26 17:28 | P.PN ---
Progress Note - Text Progress Note Date: 10/26/24 Chief Complaint: Short of breath pleasant 74-year-old male, follows with visiting physicians Dr. Quispe. With a past medical history of CAD status post CABG x 4 followed by stent placement x 2, nonischemic cardiomyopathy status post AICD placement, hypertension, hyperlipidemia, COPD, hypothyroidism, anxiety with depression, schizoaffective disorder, schizophrenia, and nicotine dependence. Patient lives in assisted living. Patient was brought in by the EMS for acute shortness of breath about 50 minutes prior to their arrival. He took his inhaler did not have any relief. Patient's pulse ox initially was 90 in the room air. He was wheezing. He was placed on CPAP.. Because of shortness of breath patient really cannot speak too well. Is got a cough. Very yellow sputum. Feels rather tired. Symptoms within the last 24 hours. Does use a walker. October 25: Remains on BiPAP. 50%. Ensure added. Short of breath. Tired. Cough. IV ceftriaxone. IV Solu-Medrol. DuoNeb. October 26: Breathing better. On nasal cannula 3 to 4 L. Diminished cough. Oral intake improved. Have the patient up in the chair. Per nurse outreach case manager note patient to return to [facility] if she has a walker. Active Medications Acetaminophen (Acetaminophen Tab 500 Mg Tab) 500 mg PO TID@0800,1400,1999 [facility] Last Admin: 10/25/24 19:47 Dose: 500 mg Hydrocodone Bitart/Acetaminophen (Hydrocodone/Apap 5-325mg 1 Each Tab) 1 each PO Q6HR PRN PRN Reason: Pain Last Admin: 10/24/24 22:39 Dose: 1 each Albuterol/Ipratropium (Ipratropium-Albuterol 3 Ml Neb) 3 ml INHALATION RT-QID [facility] Last Admin: 10/25/24 16:14 Dose: 3 ml Apixaban (Apixaban 5 Mg Tab) 5 mg PO BID@799,1999 [facility]; Protocol Last Admin: 10/25/24 19:47 Dose: 5 mg Atorvastatin Calcium (Atorvastatin 40 Mg Tab) 40 mg PO HS@1999 [facility] Last Admin: 10/25/24 19:47 Dose: 40 mg Budesonide/Formoterol Fumarate (Symbicort 160-4.5 Mcg Inhaler) 2 puff INHALATION RT-BID@ [facility] Last Admin: 10/25/24 08:33 Dose: 2 puff Buspirone HCl (Buspirone Hcl 10 Mg Tab) 10 mg PO BID@ [facility] Last Admin: 10/25/24 19:47 Dose: 10 mg Cyanocobalamin (Cyanocobalamin 500 Mcg Tab) 1,000 mcg PO DAILY@08 [facility] Last Admin: 10/25/24 09:10 Dose: 1,000 mcg Dapagliflozin (Dapagliflozin Propanediol 10 Mg Tablet) 10 mg PO DAILY@08 [facility] Last Admin: 10/25/24 09:11 Dose: 10 mg Escitalopram Oxalate (Escitalopram 20 Mg Tab) 20 mg PO DAILY@08 [facility] Last Admin: 10/25/24 09:10 Dose: 20 mg Folic Acid (Folic Acid 1 Mg Tab) 1 mg PO DAILY@08 [facility] Last Admin: 10/25/24 09:11 Dose: 1 mg Furosemide (Furosemide 10 Mg/Ml 4 Ml Vial) 40 mg IV Q12HR [facility] Last Admin: 10/25/24 19:46 Dose: 40 mg Hydromorphone HCl (Hydromorphone 1 Mg/Ml 1 Ml Syringe) 1 mg IVP Q3HR PRN PRN Reason: Severe Pain (Scale 7 to 10) Last Admin: 10/24/24 18:35 Dose: 1 mg Ceftriaxone Sodium 2 gm/ (Sodium Chloride) 50 mls @ 100 mls/hr IVPB Q24HR [facility]; Protocol Last Admin: 10/25/24 09:11 Dose: 100 mls/hr Levothyroxine Sodium (Levothyroxine 100 Mcg Tab) 100 mcg PO DAILY@07 [facility] Last Admin: 10/25/24 05:57 Dose: 100 mcg Melatonin (Melatonin 5 Mg Tablet) 10 mg PO HS@1999 [facility] Last Admin: 10/25/24 19:47 Dose: 10 mg Methylprednisolone Sodium Succinate (Methylprednisolone Sod Succi 125 Mg/2 Ml Vial) 60 mg IV Q6HR [facility] Last Admin: 10/25/24 17:40 Dose: 60 mg Mirtazapine (Mirtazapine 15 Mg Tab) 30 mg PO HS@1999 [facility] Last Admin: 10/25/24 19:47 Dose: 30 mg Naloxone HCl (Naloxone 0.4 Mg/Ml 1 Ml Vial) 0.2 mg IV Q2M PRN PRN Reason: Opioid Reversal Nitroglycerin (Nitroglycerin Sl Tabs 0.4 Mg Tab) 0.4 mg SUBLINGUAL Q5M PRN PRN Reason: Chest Pain Ondansetron HCl (Ondansetron 4 Mg/2 Ml Vial) 4 mg IVP Q8HR PRN PRN Reason: Nausea And Vomiting Pantoprazole Sodium (Pantoprazole 40 Mg/10 Ml Vial) 40 mg IV DAILY [facility] Last Admin: 10/25/24 09:11 Dose: 40 mg Senna/Docusate Sodium (Sennosides-Docusate Sodium 1 Each Tab) 2 each PO HS@1999 [facility] Last Admin: 10/25/24 19:46 Dose: 2 each Social history: 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 Possible smoker. At assisted living- [place] On examination: VITAL SIGNS: 97.5, 72, 18, 138 x 76, 98% on 3 L GENERAL APPEARANCE: Laying in bed, breathing better HEENT: Normal external appearance of nose and ear. Oral cavity normal, decreased hearing EYES: Pupils equal. Conjunctiva normal. NECK: JVD not raised. Mass not palpable. RESPIRATORY: Respiratory effort increased, diminished breath sounds slight crackles CARDIOVASCULAR: First and second sounds normal. No edema. ABDOMEN: Soft. Liver and spleen not palpable. No tenderness. No mass palpable. PSYCHIATRY: Tired but able to answer simple questions Neurological: Cranial nerves grossly intact. Moving all 4 limbs. Musculoskeletal: OA.. INVESTIGATIONS, reviewed in the clinical context: October 26: Potassium 3.6 creatinine 1.21 October 25: White count 7.5 hemoglobin 11.2 platelets 167 potassium 4.1 creatinine 1.25. Procalcitonin 0.10 October 24, 2024: White count 9.8 hemoglobin 13.5 platelets 214 sodium 142 potassium 5.1 BUN 24 creatinine 1.29 lactic acid 5.7 repeat 1.3. proBNP 3740 Influenza type A, type B, RSV, SARS-CoV-2: Not detected EKG tracing personally reviewed by me-PVCs. Nonspecific ST-T wave changes. Chest x-ray film personally reviewed by me-possible infiltrate. Adjacent to the right heart border Previous studies 2D echocardiogram: EF 15 to 20%. Global hypokinesia. Moderate mitral regurgita tion. Assessment and Plan -Acute on chronic systolic heart failure exacerbation, secondary to ischemic systolic dysfunction EF 15 to 20%:: Improving Decrease IV Lasix. 40 mg daily I's and O's. Follow labs -Acute hypoxic respiratory failure combination of COPD exacerbation, pneumonia, CHF: Improving Patient was on BiPAP. Now 3 to 4 L nasal cannula. Incentive spirometry -Moderate mitral regurgitation -Probable right-sided pneumonia suspect gram-negative organism: Improving IV ceftriaxone -CAD status post CABG x 4 and stent placement x 2 -Essential hypertension Lopressor-resume at 12.5 twice daily. -Chronic kidney disease stage 2 likely nephrosclerosis Follow renal function -Hyperlipidemia Lipitor -Hypothyroidism Levothyroxine 100 mcg daily. -COPD, with acute exacerbation: Better DuoNeb 4 times daily. Cut back IV Solu-Medrol 40 mg every 12 -Chronic hypoxic respiratory failure from underlying COPD Home oxygen -Full code -Public guardian- Improving. Eating better. Incentive spirometry. Up in chair. Cut back Solu- Medrol.. Cut back on oxygen Past Medical History Past Medical History: Coronary Artery Disease (CAD), Heart Failure, COPD, Dementia, Hyperlipidemia, Hypertension, Myocardial Infarction ([place]), Seizure Disorder, Syncope, Thyroid Disorder Additional Past Medical History / Comment(s): Ischemic cardiomyopathy, EF 20- 25%, last seizure about 2 yrs ago, hypothyroid.neuropathy "WHEN HE WORKED HE HAD A CRUSHING INJURY -COLLAPSED LUNGS C/T AND HAS CHRONIC BACK PAIN"" pt states he is schizophrenic/bipolar. TRIPLE A REPAIR AUG 2022 Last Myocardial Infarction Date:: unk History of Any Multi-Drug Resistant Organisms: None Reported Past Surgical History: AICD, Back Surgery, Coronary Bypass/CABG, Heart Catheterization, Heart Catheterization With Stent Additional Past Surgical History / Comment(s): 1995 CABG 4 vessel in [place], has had 2"HEART CATHS/had 2 STENTS after cabg sx.pt stated they were done in [facility]. "sx on tailbone, cortisone injections, devin inguinal hernia repair Past Anesthesia/Blood Transfusion Reactions: No Reported Reaction Date of Last Stent Placement:: 1995 Type of Cardiac Device: AICD Device Placement Date:: [facility] Past Psychological History: Anxiety, Depression, Schizoaffective Disorder, Schizophrenia Smoking Status: Current every day smoker Past Alcohol Use History: None Reported Past Drug Use History: None Reported
--- NOTE | 2024-10-26 17:32 | P.PN ---
Subjective Progress Note Date: 10/26/24 Patient is a 74-year-old male with past medical history significant for coronary artery disease with CABG, ischemic cardiomyopathy with ejection fraction 15 to 20%, AICD, hypertension, hypothyroidism, COPD, seizure disorder, dementia. I believe the patient resides at an [facility] home. He was sent to the emergency department early this morning in a state of acute respiratory distress. Placed on BiPAP. Did receive a one-time dose of Lasix 60 mg. Workup includes a chest x-ray showing pulmonary vascular congestion. There is an AICD/pacemaker. NT proBNP was elevated at 3740. CBC: WBC count 11.8, hemoglobin 13.5, platelets 214. CMP: Sodium 142, potassium 5.1, chloride 105, serum bicarb 22, BUN 24, creatinine 1.29, glucose 164. Lactic was elevated at 5.7. Normal saline infusing at 75 mL/h. Troponin less than 0.012. NT proBNP 3740. VBG with a pCO2 of 59 and pH of 7.19. Currently, patient is being evaluated emergency department. He is lethargic, awakens to verbal stimuli, and follows simple commands. Does not readily participate with interview. Remains on BiPAP with settings 14/7 and FiO2 80%. Breathing appears nonlabored. Achieving tidal labs around 400. Has voided once since receiving his Lasix. Current vital signs: Temperature 97.5 F, heart rate 69 bpm, blood pressure 105/87 mmHg, respiratory rate nontachypneic, on BiPAP with above-mentioned settings, SpO2 reading 100%. On today's evaluation of 10/25/2024, the patient is being seen for a follow-up. Patient is being treated for an acute exacerbation of CHF/COPD. The patient is known to have severe ischemic cardiomyopathy with an ejection fraction of 15 to 20%. He is also known to have COPD, hypertension and hypothyroidism and atrial fibrillation. Note that, the patient was on BiPAP at a pressure of 14 over 7 cm of water. Improved compared to yesterday the patient is currently on 4 L nasal cannula. Feeling better. Less short of breath on today's evaluation. The white cell count is 7.7 with a hemoglobin 11.2 and a platelet count of 167. BUN 35 with a creatinine of 1.2 and a sodium is at 140 with a potassium level of 4.1. Bicarb is at 26. LFTs are normal. Procalcitonin level is 0.1. Echocardiogram was also completed and the patient was found to have impaired ejection fraction of 20 to 25% along with severe hypokinesis of the LV, moderate severe mitral regurgitation was also noted. The patient remains on IV Rocephin. The patient remains on bronchodilators. The patient remains on IV Solu-Medrol. The patient remains on IV Lasix 40 mg every 12 hours. Fluid balance is -900 cc at least. On 10/26/2024, the patient is feeling better, less short of breath, less bronchospastic and wheezy and the patient continues to diurese. Remains on DuoNeb updrafts. Remains on Symbicort and empiric antibiotic coverage with IV Rocephin. The patient remains on IV Lasix 40 mg on a daily basis and IV Solu- Medrol 40 mg every 12 hours. Fluid balance is -1.2 L over the past 24 hours. Blood work shows a BUN of 41 with a creatinine 1.2 and a sodium levels at 138 and a potassium level of 3.6. The patient is currently on 4 L of oxygen by nasal cannula with pulse ox of 95%. Objective - Vital Signs Vital signs: Vital Signs Temp 97.5 F L 10/26/24 08:29 Pulse 78 10/26/24 12:57 Resp 18 10/26/24 11:11 BP 108/56 10/26/24 11:11 Pulse Ox 95 10/26/24 11:11 FiO2 50 10/26/24 05:40 Intake & Output 10/25/24 10/26/24 10/26/24 18:59 06:59 18:59 Intake Total 10 10 Output Total 900 1050 1800 Balance -900 -1040 -1790 Intake: IV 10 10 Invasive Line 2 10 10 Output: Urine 900 1050 1800 Other: Voiding Method External Catheter External Catheter External Catheter - Exam GENERAL EXAM: Lethargic, 74-year-old male, awake and alert and currently on 4 liters of oxygen by nasal cannula HEAD: Normocephalic and atraumatic EYES: Normal reaction of pupils, equal size. NOSE: Clear with pink turbinates. THROAT: No erythema or exudates. NECK: No masses, no JVD. CHEST: No chest wall deformity. LUNGS: Equal air entry with no crackles, wheeze, rhonchi or dullness. Breathing is nonlabored. CVS: S1 and S2 normal with no audible murmur, regular rhythm. No extra heart sounds ABDOMEN: No hepatosplenomegaly, active bowel sounds, no guarding or rigidity. SPINE: No scoliosis or deformity SKIN: No rashes CENTRAL NERVOUS SYSTEM: No focal deficits, tone is normal in all 4 extremities. EXTREMITIES: There is no peripheral edema, clubbing, or cyanosis. Peripheral pulses are intact. - Labs CBC & Chem 7: 10/25/24 08:28 10/26/24 07:06 Labs: Abnormal Lab Results - Last 24 Hours (Table) 10/25/24 10/25/24 10/26/24 Range/Units 16:37 20:09 06:10 BUN (9-20) mg/dL Glucose (74-99) mg/dL POC Glucose (mg/dL) 152 H 198 H 161 H (70-110) mg/dL 10/26/24 10/26/24 Range/Units 07:06 11:48 BUN 41 H (9-20) mg/dL Glucose 148 H (74-99) mg/dL POC Glucose (mg/dL) 166 H (70-110) mg/dL Assessment and Plan Assessment: Acute exacerbation of systolic congestive heart failure, improving, negative fluid balance and the volume status being optimized Acute COPD exacerbation, improving Acute hypoxemic and hypercapnic respiratory failure, secondary to a combination of above, improving and the patient is currently off the BiPAP maintained on 4 L of O2 nasal cannula Lactic acidosis, 5.7, normalized History of CAD with previous CABG and subsequent cardiac stents Ischemic cardiomyopathy with an ejection fraction of 15 to 20% and moderate MR, status post AICD. Repeat echocardiogram shows moderate severe mitral regurgitation and ejection fraction of around 20 to 25% Paroxysmal atrial fibrillation, current rhythm is sinus and the patient has been maintained on anticoagulation with Eliquis on outpatient basis. Hypertension History of hyperlipidemia History of AAA with repair Chronic kidney disease stage IIIa History of hypothyroidism History of left inguinal hernia with repair History of dementia History of seizure [facility] resident Plan: Patient is currently off the BiPAP and transition to 4 L of oxygen by nasal cannula Clinically improved compared to yesterday May utilize the BiPAP overnight Continue IV Lasix 40 mg every 24 hours Monitor renal function electrolytes Continue metoprolol, losartan, Farxiga Continue bronchodilators, budesonide inhalation, formoterol inhalation Continue IV Solu-Medrol, switch the patient to oral prednisone burst taper as of tomorrow IV Rocephin as an empiric antibiotic coverage Check viral 4 Plex We will continue to follow Time with Patient: Greater than 30
[2024-10-26] MEDS: METOPROLOL TARTRATE 12.5 MG TAB PO SCH (19:50)
[2024-10-26] MEDS: methylPREDNISolone SOD SUCCI 40 MG/ML 1 ML VIAL IV SCH (19:50)
[2024-10-26 20:13] LABS: Glucose,Whole Blood 216 mg/dL (70-110)
[2024-10-27 03:36] VITALS: RESP 16
[2024-10-27 06:20] LABS: Glucose,Whole Blood 139 mg/dL (70-110)
[2024-10-27] MEDS: FUROSEMIDE 10 MG/ML 4 ML VIAL IV SCH (08:01)
[2024-10-27 08:35] LABS: African American GFR (CKD) >90 (>60 ml/min/1.73 sqM); Anion Gap 10 mmol/L; Blood Urea Nitrogen 41 mg/dL (9-20); Calcium 8.3 mg/dL (8.4-10.2); Carbon Dioxide 27 mmol/L (22-30); Chloride 99 mmol/L (98-107); Glucose 132 mg/dL (74-99); Non-African American GFR(CKD) 79 (>60 ml/min/1.73 sqM); Potassium 4.1 mmol/L (3.5-5.1); Sodium 136 mmol/L (137-145)
[2024-10-27 09:39] VITALS: TEMP 97.6
[2024-10-27 11:23] VITALS: BP 120/60; PULSE 74
[2024-10-27 11:28] LABS: Glucose,Whole Blood 127 mg/dL (70-110)
--- NOTE | 2024-10-27 11:49 | P.PN ---
Subjective Progress Note Date: 10/27/24 Consult reason: congestive heart failure History of present illness: This is a 74-year-old male patient of Dr. Smith with past medical history of coronary artery disease status post CABG in 1995 in [place] followed by PCI, paroxysmal atrial fibrillation, dementia, hyperlipidemia, hypertension, seizure disorder, thyroid disorder, AICD placement approximately 10 years ago in [place], AAA repair with Dr. Cook, ischemic cardiomyopathy, tobacco abuse, COPD. We have been asked to evaluate the patient for CHF. -EKG: Sinus tachycardia with frequent PVCs -Chest x-ray: Mild pulmonary vascular congestion. -Laboratory studies: WBC 11.8, hemoglobin 13.5. Venous pH 7.19, pCO2 59 and bicarb 22. Electrolytes within normal limits. BUN 24 creatinine 1.29. Lactic acid 5.7 with repeat 1.3. Troponin negative x 1. proBNP 3740. Cepheid viral panel not detected. -Home cardiac medications: Eliquis 5 mg twice daily, atorvastatin 40 mg at bedtime, Farxiga 10 mg daily, Lasix 40 mg daily, losartan 25 mg daily, Lopressor 25 mg twice daily, Nitrostat as needed. -Cardiac catheterization performed 09/16/2023 revealed CAD 100% proximal LAD stenosis, 75% proximal circumflex stenosis, 100% RCA stenosis, occluded SVG to PDA, patent FIORE to LAD, SVG to diagonal with 95% stenosis, status post PCI of the SVG to diagonal. -Echocardiogram performed 04/25/24 revealed EF of 15 to 20% with moderate mitral regurgitation. 10/25 Patient seen and examined on the cardiac stepdown unit. Patient continues to be on BiPAP, pulse ox 99%, blood pressure 135/72, heart rate 71. Repeat blood work reveals hemoglobin 11.2, BUN 37 creatinine 1.25. Patient has been maintained on IV Lasix 40 mg every 12 hours. Weights and VARGAS's do not appear to be accurate. Echocardiogram is pending. 10/26 Patient seen and examined. Patient has been maintained on IV Lasix 40 mg every 12 hours. Patient is now off BiPAP and on O2 at 4 L nasal cannula with pulse ox 94%. Heart rate is running in the 70s, blood pressure 108/56. Repeat blood work reveals potassium 3.6, BUN 41 creatinine 1.21. Patient has a negative fluid balance, no change in documented weight. Echocardiogram reveals EF of 20 to 25%, moderately severe mitral regurgitation, mild to moderate tricuspid regurgitation with mild pulmonary hypertension. 10/27 Patient seen and examined. Patient states he is feeling well today. Breathing status is improving. He has been maintained on Lasix decreased yesterday to 40 mg once daily IV. Patient has a negative fluid balance. Weights do not appear accurate. Blood pressure 120/60, heart rate 74, pulse ox 97% on 3 L nasal cannula. Repeat blood work reveals sodium 136, BUN 41 creatinine 0.96. Repeat chest x-ray performed yesterday afternoon revealed no acute process. COPD changes. Physical examination: Gen: This is a 74-year-old male appears to be comfortable VS: reviewed HEENT: Head is atraumatic, normocephalic. Pupils equal, round. Sclerae is anicteric. NECK: Supple. No JVD. LUNGS: Clear to auscultation. No wheezes or rhonchi. No intercostal ret ractions. HEART: Regular rate and rhythm. No murmur. ABDOMEN: Soft No tenderness. EXTREMITIES: No pedal edema. No calf tenderness. NEUROLOGICAL: Patient is awake, alert. Assessment: Acute hypoxic and hypercapnic respiratory failure secondary to combination of acute COPD exacerbation and acute on chronic systolic heart failure Acute on chronic systolic heart failure Acute COPD exacerbation Lactic acidosis, resolved Ischemic cardiomyopathy with EF of 15 to 20% status post AICD Paroxysmal atrial fibrillation currently in sinus rhythm Coronary artery disease status post CABG in 1995 followed by PCI of the SVG to diagonal Hypertension Hyperlipidemia History of AAA repair Seizure disorder Plan: Continue patient's home cardiac medications: Eliquis, atorvastatin Decrease IV Lasix 40 mg twice daily to once daily Monitor VARGAS, daily weights, electrolytes and renal function Further recommendations to follow based upon clinical course Nurse practitioner note has been reviewed, I agree with documented findings and plan of care. Patient was seen and examined. Objective - Vital Signs Vital signs: Vital Signs Temp 97.6 F 10/27/24 08:00 Pulse 72 10/27/24 09:24 Resp 16 10/27/24 08:00 BP 147/74 10/27/24 08:00 Pulse Ox 98 10/27/24 09:12 FiO2 45 10/27/24 04:02 Intake & Output 10/26/24 10/27/24 10/27/24 18:59 06:59 18:59 Intake Total 560 20 10 Output Total 2200 500 Balance -1640 -480 10 Weight 60 kg Intake: IV 20 20 10 Invasive Line 2 20 20 10 Oral 540 Output: Urine 2200 500 Other: Voiding Method External Catheter External Catheter External Catheter - Labs CBC & Chem 7: 10/25/24 08:28 10/27/24 07:35 Labs: Abnormal Lab Results - Last 24 Hours (Table) 10/26/24 10/26/24 10/26/24 Range/Units 11:48 17:00 20:02 Sodium (137-145) mmol/L BUN (9-20) mg/dL Glucose (74-99) mg/dL POC Glucose (mg/dL) 166 H 152 H 216 H (70-110) mg/dL Calcium (8.4-10.2) mg/dL 10/27/24 10/27/24 Range/Units 06:09 07:35 Sodium 136 L (137-145) mmol/L BUN 41 H (9-20) mg/dL Glucose 132 H (74-99) mg/dL POC Glucose (mg/dL) 139 H (70-110) mg/dL Calcium 8.3 L (8.4-10.2) mg/dL
--- NOTE | 2024-10-27 13:58 | P.PN ---
Subjective Progress Note Date: 10/27/24 Patient is a 74-year-old male with past medical history significant for coronary artery disease with CABG, ischemic cardiomyopathy with ejection fraction 15 to 20%, AICD, hypertension, hypothyroidism, COPD, seizure disorder, dementia. I believe the patient resides at an [facility] home. He was sent to the emergency department early this morning in a state of acute respiratory distress. Placed on BiPAP. Did receive a one-time dose of Lasix 60 mg. Workup includes a chest x-ray showing pulmonary vascular congestion. There is an AICD/pacemaker. NT proBNP was elevated at 3740. CBC: WBC count 11.8, hemoglobin 13.5, platelets 214. CMP: Sodium 142, potassium 5.1, chloride 105, serum bicarb 22, BUN 24, creatinine 1.29, glucose 164. Lactic was elevated at 5.7. Normal saline infusing at 75 mL/h. Troponin less than 0.012. NT proBNP 3740. VBG with a pCO2 of 59 and pH of 7.19. Currently, patient is being evaluated emergency department. He is lethargic, awakens to verbal stimuli, and follows simple commands. Does not readily participate with interview. Remains on BiPAP with settings 14/7 and FiO2 80%. Breathing appears nonlabored. Achieving tidal labs around 400. Has voided once since receiving his Lasix. Current vital signs: Temperature 97.5 F, heart rate 69 bpm, blood pressure 105/87 mmHg, respiratory rate nontachypneic, on BiPAP with above-mentioned settings, SpO2 reading 100%. On today's evaluation of 10/25/2024, the patient is being seen for a follow-up. Patient is being treated for an acute exacerbation of CHF/COPD. The patient is known to have severe ischemic cardiomyopathy with an ejection fraction of 15 to 20%. He is also known to have COPD, hypertension and hypothyroidism and atrial fibrillation. Note that, the patient was on BiPAP at a pressure of 14 over 7 cm of water. Improved compared to yesterday the patient is currently on 4 L nasal cannula. Feeling better. Less short of breath on today's evaluation. The white cell count is 7.7 with a hemoglobin 11.2 and a platelet count of 167. BUN 35 with a creatinine of 1.2 and a sodium is at 140 with a potassium level of 4.1. Bicarb is at 26. LFTs are normal. Procalcitonin level is 0.1. Echocardiogram was also completed and the patient was found to have impaired ejection fraction of 20 to 25% along with severe hypokinesis of the LV, moderate severe mitral regurgitation was also noted. The patient remains on IV Rocephin. The patient remains on bronchodilators. The patient remains on IV Solu-Medrol. The patient remains on IV Lasix 40 mg every 12 hours. Fluid balance is -900 cc at least. On 10/26/2024, the patient is feeling better, less short of breath, less bronchospastic and wheezy and the patient continues to diurese. Remains on DuoNeb updrafts. Remains on Symbicort and empiric antibiotic coverage with IV Rocephin. The patient remains on IV Lasix 40 mg on a daily basis and IV Solu- Medrol 40 mg every 12 hours. Fluid balance is -1.2 L over the past 24 hours. Blood work shows a BUN of 41 with a creatinine 1.2 and a sodium levels at 138 and a potassium level of 3.6. The patient is currently on 4 L of oxygen by nasal cannula with pulse ox of 95%. On 10/27/2024, the patient is being seen for a follow-up. Overall condition is stable. The patient remains on oxygen and is currently on 3 L with a pulse ox of 97%. Fluid balance is -2.1 L over the past 24 hours. Remains on b ronchodilators. Remains on Lasix 40 mg IV on a daily basis. Remains on Symbicort and DuoNeb nebulizers [id number] and the patient is also on IV Solu-Medrol 40 mg every 12 hours. No reported chest pain. Feeling better. Hemodynamically stable. Labs from today shows a sodium level of 136, BUN is 41 with a creatinine of 0.9. No other significant events otherwise for now. Potassium level is at 4.1. Objective - Vital Signs Vital signs: Vital Signs Temp 97.6 F 10/27/24 08:00 Pulse 72 10/27/24 09:24 Resp 16 10/27/24 08:00 BP 147/74 10/27/24 08:00 Pulse Ox 98 10/27/24 09:12 FiO2 45 10/27/24 04:02 Intake & Output 10/26/24 10/27/24 10/27/24 18:59 06:59 18:59 Intake Total 560 20 10 Output Total 2200 500 Balance -1640 -480 10 Weight 60 kg Intake: IV 20 20 10 Invasive Line 2 20 20 10 Oral 540 Output: Urine 2200 500 Other: Voiding Method External Catheter External Catheter External Catheter - Exam GENERAL EXAM: Lethargic, 74-year-old male, awake and alert and currently on 4 liters of oxygen by nasal cannula HEAD: Normocephalic and atraumatic EYES: Normal reaction of pupils, equal size. NOSE: Clear with pink turbinates. THROAT: No erythema or exudates. NECK: No masses, no JVD. CHEST: No chest wall deformity. LUNGS: Equal air entry with no crackles, wheeze, rhonchi or dullness. Breathing is nonlabored. CVS: S1 and S2 normal with no audible murmur, regular rhythm. No extra heart sounds ABDOMEN: No hepatosplenomegaly, active bowel sounds, no guarding or rigidity. SPINE: No scoliosis or deformity SKIN: No rashes CENTRAL NERVOUS SYSTEM: No focal deficits, tone is normal in all 4 extremities. EXTREMITIES: There is no peripheral edema, clubbing, or cyanosis. Peripheral pulses are intact. - Labs CBC & Chem 7: 10/25/24 08:28 10/27/24 07:35 Labs: Abnormal Lab Results - Last 24 Hours (Table) 10/26/24 10/26/24 10/26/24 Range/Units 11:48 17:00 20:02 Sodium (137-145) mmol/L BUN (9-20) mg/dL Glucose (74-99) mg/dL POC Glucose (mg/dL) 166 H 152 H 216 H (70-110) mg/dL Calcium (8.4-10.2) mg/dL 10/27/24 10/27/24 Range/Units 06:09 07:35 Sodium 136 L (137-145) mmol/L BUN 41 H (9-20) mg/dL Glucose 132 H (74-99) mg/dL POC Glucose (mg/dL) 139 H (70-110) mg/dL Calcium 8.3 L (8.4-10.2) mg/dL Assessment and Plan Assessment: Acute exacerbation of systolic congestive heart failure, improving, negative fluid balance and the volume status being optimized, clinically improved Acute COPD exacerbation, improving Acute hypoxemic and hypercapnic respiratory failure, secondary to a combination of above, improving and the patient is currently off the BiPAP maintained on 3 L of O2 nasal cannula Lactic acidosis, 5.7, normalized History of CAD with previous CABG and subsequent cardiac stents Ischemic cardiomyopathy with an ejection fraction of 15 to 20% and moderate MR, status post AICD. Repeat echocardiogram shows moderate severe mitral regurgitation and ejection fraction of around 20 to 25% Paroxysmal atrial fibrillation, current rhythm is sinus and the patient has been maintained on anticoagulation with Eliquis on outpatient basis. Hypertension History of hyperlipidemia History of AAA with repair Chronic kidney disease stage IIIa History of hypothyroidism History of left inguinal hernia with repair History of dementia History of seizure [facility] resident Plan: Patient is currently off the BiPAP and transition to 3 L of oxygen nasal cannula Clinically improved compared to yesterday May utilize the BiPAP overnight Continue IV Lasix 40 mg every 24 hours, negative fluid balance and switch the patient over Lasix as of tomorrow Monitor renal function electrolytes Continue metoprolol, losartan, Farxiga Continue bronchodilators, budesonide inhalation, formoterol inhalation Will start the patient on prednisone burst taper IV Rocephin as an empiric antibiotic coverage Check viral 4 Plex We will continue to follow Time with Patient: Greater than 30
--- NOTE | 2024-10-27 19:02 | P.DS ---
Providers Date of admission: 10/24/24 04:11 Expected date of discharge: 10/27/24 Attending physician: Juan Bhatt Consults: 10/24/24 04:11 Consult Physician Routine Consulting Provider: Suki Pantoja Consult Reason/Comments: hypoxia,Bipap Do you want consulting provider notified?: Yes Consult Physician Routine Consulting Provider: Shade Petty Consult Reason/Comments: chf Do you want consulting provider notified?: Yes Primary care physician: [facility] Hospital Course: Chief Complaint: Short of breath pleasant 74-year-old male, follows with visiting physicians Dr. Quispe. With a past medical history of CAD status post CABG x 4 followed by stent placement x 2, nonischemic cardiomyopathy status post AICD placement, hypertension, hyperlipidemia, COPD, hypothyroidism, anxiety with depression, schizoaffective disorder, schizophrenia, and nicotine dependence. Patient lives in assisted living. Patient was brought in by the EMS for acute shortness of breath about 50 minutes prior to their arrival. He took his inhaler did not have any relief. Patient's pulse ox initially was 90 in the room air. He was wheezing. He was placed on CPAP.. Because of shortness of breath patient really cannot speak too well. Is got a cough. Very yellow sputum. Feels rather tired. Symptoms within the last 24 hours. Does use a walker. October 25: Remains on BiPAP. 28/06/50%. Ensure added. Short of breath. Tired. Cough. IV ceftriaxone. IV Solu-Medrol. DuoNeb. October 26: Breathing better. On nasal cannula 3 to 4 L. Diminished cough. Oral intake improved. Have the patient up in the chair. Per pillowcase folder note patient to return to [place] if she has a walker. October 27: Breathing much better. Oxygen down to 2 L. This is what he takes at home. Tolerating diet. Overall doing much better. Will be discharged with a very short course of Ceftin and prednisone taper. Discussed with patient. As a nurse. 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 Possible smoker. At assisted living- [facility] On examination: VITAL SIGNS: 97.6, 72, 16, 120 x 60, 97% on 3 L GENERAL APPEARANCE: Age of the bed, breathing much improved HEENT: Normal external appearance of nose and ear. Oral cavity normal, decreased hearing EYES: Pupils equal. Conjunctiva normal. NECK: JVD not raised. Mass not palpable. RESPIRATORY: Respiratory effort normal, diminished breath sounds CARDIOVASCULAR: First and second sounds normal. No edema. ABDOMEN: Soft. Liver and spleen not palpable. No tenderness. No mass palpable. PSYCHIATRY: Answering questions appropriately Neurological: Cranial nerves grossly intact. Moving all 4 limbs. Musculoskeletal: OA.. INVESTIGATIONS, reviewed in the clinical context: October 27: Potassium 4.1 creatinine 0.96 October 25: White count 7.5 hemoglobin 11.2 platelets 167 potassium 4.1 creatinine 1.25. Procalcitonin 0.10 October 24, 2024: White count 9.8 hemoglobin 13.5 platelets 214 sodium 142 potassium 5.1 BUN 24 creatinine 1.29 lactic acid 5.7 repeat 1.3. proBNP 3740 Influenza type A, type B, RSV, SARS-CoV-2: Not detected EKG tracing personally reviewed by me-PVCs. Nonspecific ST-T wave changes. Chest x-ray film personally reviewed by me-possible infiltrate. Adjacent to the right heart border Previous studies 2D echocardiogram: EF 15 to 20%. Global hypokinesia. Moderate mitral regurgitation. Assessment and Plan -Acute on chronic systolic heart failure exacerbation, secondary to ischemic systolic dysfunction EF 15 to 20%:: Improved Decrease IV Lasix. 40 mg daily I's and O's. Follow labs -Acute hypoxic respiratory failure combination of COPD exacerbation, pneumonia, CHF: I improved Patient was on BiPAP. Now down to 2-3 L. Incentive spirometry -Moderate mitral regurgitation -Probable right-sided pneumonia suspect gram-negative organism: Improving IV ceftriaxone Ceftin 500 twice daily for 2 more days -CAD status post CABG x 4 and stent placement x 2 -Essential hypertension Lopressor-resume at 12.5 twice daily. -Chronic kidney disease stage 2 likely nephrosclerosis Follow renal function -Hyperlipidemia Lipitor -Hypothyroidism Levothyroxine 100 mcg daily. -COPD, with acute exacerbation: Better DuoNeb 4 times daily. Cut back IV Solu-Medrol 40 mg every 12 Discharged on prednisone taper -Chronic hypoxic respiratory failure from underlying COPD Home oxygen, 2 L -Full code -Public guardian- Disposition: [facility]-assisted living Past Medical History Past Medical History: Coronary Artery Disease (CAD), Heart Failure, COPD, Dementia, Hyperlipidemia, Hypertension, Myocardial Infarction (MA), Seizure Disorder, Syncope, Thyroid Disorder Additional Past Medical History / Comment(s): Ischemic cardiomyopathy, EF 20- 25%, last seizure about 2 yrs ago, hypothyroid.neuropathy "WHEN HE WORKED HE HAD A CRUSHING INJURY -COLLAPSED LUNGS C/T AND HAS CHRONIC BACK PAIN"" pt states he is schizophrenic/bipolar. TRIPLE A REPAIR AUG 2022 Last Myocardial Infarction Date:: unk History of Any Multi-Drug Resistant Organisms: None Reported Past Surgical History: AICD, Back Surgery, Coronary Bypass/CABG, Heart Catheterization, Heart Catheterization With Stent Additional Past Surgical History / Comment(s): 1995 CABG 4 vessel in [place], has had 2"HEART CATHS/had 2 STENTS after cabg sx.pt stated they were done in [facility]. "sx on tailbone, cortisone injections, devin inguinal hernia repair Past Anesthesia/Blood Transfusion Reactions: No Reported Reaction Date of Last Stent Placement:: 1995 Type of Cardiac Device: AICD Device Placement Date:: 1995 in [facility] Past Psychological History: Anxiety, Depression, Schizoaffective Disorder, Schizophrenia Smoking Status: Current every day smoker Past Alcohol Use History: None Reported Past Drug Use History: None Reported Plan - Discharge Summary Discharge Rx Participant: Yes New Discharge Prescriptions: New predniSONE 10 mg PO DAILY #30 tab cefuroxime axetiL [Ceftin] 500 mg PO BID #4 tab Continue Cyanocobalamin (Vitamin B-12) [Vitamin B-12] 1,000 mcg PO DAILY@0800 Acetaminophen [Tylenol 8 Hour] 650 mg PO TID@0800,1400,1999 Atorvastatin Calcium [Lipitor] 40 mg PO HS@1999 Budesonide-Formot 160-4.5 Mcg [Symbicort 160-4.5 Mcg Inhaler] 2 puff INHALATION RT-BID@0800,1999 Budesonide 0.5 mg INHALATION RT-BID@0900,1800 HYDROcodone/APAP 5-325MG [[place] 5-325] 1 tab PO Q6HR PRN #10 tab PRN Reason: Pain Ipratropium-Albuterol Nebulize [Duoneb 0.5 mg-3 mg/3 ml Soln] 3 ml INHALATION RT-QID Folic Acid 0.4 mg PO DAILY@0800 Levothyroxine Sodium [Synthroid] 100 mcg PO DAILY@0700 Mirtazapine 30 mg PO HS@1999 Nitroglycerin Sl Tabs [Nitrostat] 0.4 mg SUBLINGUAL Q5M PRN 90 Days #100 tab PRN Reason: Chest Pain Losartan [Cozaar] 25 mg PO DAILY@0800 Dapagliflozin Propanediol [Farxiga] 10 mg PO DAILY@0800 Escitalopram [Lexapro] 20 mg PO DAILY@0800 Melatonin 10 mg PO HS@1999 Sennosides/Docusate Sodium [Senna-S 8.6-50 mg Tablet] 2 tab PO HS@1999 Furosemide [Lasix] 40 mg PO DAILY #30 tab Pantoprazole Sodium [Protonix] 20 mg PO BID #60 tab Apixaban [Eliquis] 5 mg PO BID@08,1999 busPIRone HCl [Buspar] 10 mg PO BID@08,1999 Changed Metoprolol Tartrate [Lopressor] 12.5 mg PO BID #60 tab Discontinued metroNIDAZOLE 500 mg PO BID 7 Days #14 tablet Discharge Medication List Cyanocobalamin (Vitamin B-12) [Vitamin B-12] 1,000 mcg PO DAILY@0800 08/23/22 [History] Acetaminophen [Tylenol 8 Hour] 650 mg PO TID@0800,1400,199909/17/23 [History] Atorvastatin Calcium [Lipitor] 40 mg PO HS@199909/17/23 [History] Folic Acid 0.4 mg PO DAILY@0809/17/23 [History] Levothyroxine Sodium [Synthroid] 100 mcg PO DAILY@0700 09/17/23 [History] Mirtazapine 30 mg PO HS@199909/17/23 [History] Nitroglycerin Sl Tabs [Nitrostat] 0.4 mg SUBLINGUAL Q5M PRN 90 Days #100 tab 09/21/23 [Rx] Budesonide-Formot 160-4.5 Mcg [Symbicort 160-4.5 Mcg Inhaler] 2 puff INHALATION RT-BID@08,199910/16/23 [History] Dapagliflozin Propanediol [Farxiga] 10 mg PO DAILY@0800 10/16/23 [History] Losartan [Cozaar] 25 mg PO DAILY@0800 10/16/23 [History] Budesonide 0.5 mg INHALATION RT-BID@0900,1800 03/03/24 [History] Escitalopram [Lexapro] 20 mg PO DAILY@0800 04/09/24 [History] HYDROcodone/APAP 5-325MG [[place] 5-325] 1 tab PO Q6HR PRN #10 tab 04/10/24 [Rx] Ipratropium-Albuterol Nebulize [Duoneb 0.5 mg-3 mg/3 ml Soln] 3 ml INHALATION RT-QID 04/13/24 [History] Melatonin 10 mg PO HS@199904/13/24 [History] Sennosides/Docusate Sodium [Senna-S 8.6-50 mg Tablet] 2 tab PO HS@199904/24/24 [History] Furosemide [Lasix] 40 mg PO DAILY #30 tab 04/26/24 [Rx] Pantoprazole Sodium [Protonix] 20 mg PO BID #60 tab 04/26/24 [Rx] Apixaban [Eliquis] 5 mg PO BID@0800,199910/24/24 [History] busPIRone HCl [Buspar] 10 mg PO BID@0800,199910/24/24 [History] Metoprolol Tartrate [Lopressor] 12.5 mg PO BID #60 tab 10/27/24 [Rx] cefuroxime axetiL [Ceftin] 500 mg PO BID #4 tab 10/27/24 [Rx] predniSONE 10 mg PO DAILY #30 tab 10/27/24 [Rx] Follow up Appointment(s)/Referral(s): Denys Quispe MD [REFERRING] - 1 Week (please call office to make an appointment) Patient Instructions/Handouts: COPD (Chronic Obstructive Pulmonary Disease) (DC) Activity/Diet/Wound Care/Special Instructions: continue home fio2- 2l Discharge Disposition: HOME SELF-CARE
[2024-10-28] MEDS ORDERED: predniSONE 20 MG TAB PO SCH (09:00)
== END 2024-10-27 14:23 | disposition home or self-care (01) | DRG 177 ==
LOC: EC 02:39 → 3SCARD 04:11
PROVIDERS: ADMIT Hospitalist; ATTEND Hospitalist
PROC: 5A09457 Assistance with Respiratory Ventilation, 24-96 Consecutive Hours, Continuous Positive Airway Pressure (ICD-10-PCS; principal; 2024-10-24)
DX: J15.69 Pneumonia due to other Gram-negative bacteria (principal); I50.23 Acute on chronic systolic (congestive) heart failure; J96.02 Acute respiratory failure with hypercapnia; J96.01 Acute respiratory failure with hypoxia; I16.1 Hypertensive emergency; I42.8 Other cardiomyopathies; I48.0 Paroxysmal atrial fibrillation; G40.909 Epilepsy, unspecified, not intractable, without status epilepticus; I13.0 Hypertensive heart and chronic kidney disease with heart failure and stage 1 through stage 4 chronic kidney disease, or unspecified chronic kidney disease; J44.0 Chronic obstructive pulmonary disease with (acute) lower respiratory infection; F03.93 Unspecified dementia, unspecified severity, with mood disturbance; N18.31 Chronic kidney disease, stage 3a; F25.9 Schizoaffective disorder, unspecified; E03.9 Hypothyroidism, unspecified; F32.A Depression, unspecified; I08.1 Rheumatic disorders of both mitral and tricuspid valves; J44.1 Chronic obstructive pulmonary disease with (acute) exacerbation; F03.94 Unspecified dementia, unspecified severity, with anxiety; J96.11 Chronic respiratory failure with hypoxia; E87.20 Acidosis, unspecified; Z11.52 Encounter for screening for COVID-19; Z79.890 Hormone replacement therapy; Z63.72 Alcoholism and drug addiction in family; E78.5 Hyperlipidemia, unspecified; G89.29 Other chronic pain; I25.10 Atherosclerotic heart disease of native coronary artery without angina pectoris; I25.2 Old myocardial infarction; I25.5 Ischemic cardiomyopathy; I49.3 Ventricular premature depolarization; Z79.01 Long term (current) use of anticoagulants; Z79.51 Long term (current) use of inhaled steroids; Z79.84 Long term (current) use of oral hypoglycemic drugs; Z79.899 Other long term (current) drug therapy; Z95.810 Presence of automatic (implantable) cardiac defibrillator; Z95.5 Presence of coronary angioplasty implant and graft; Z88.5 Allergy status to narcotic agent; Z88.0 Allergy status to penicillin; Z88.7 Allergy status to serum and vaccine; Z87.19 Personal history of other diseases of the digestive system; Z86.79 Personal history of other diseases of the circulatory system
CPT/HCPCS: 36415; 51702; 71045; 71046; 80048; 80053; 82803; 83605; 83735; 83880; 84100; 84145; 84484; 85025; 85610; 85730; 87636; 93005; 93306; 94640; 94660; 94760; 96365; 96366; 96367; 96372; 96375; 96376; 99291

== ENCOUNTER 2024-11-08 15:34 | Observation (INO) | payer MEDICARE, OTHER ==
--- NOTE | 2024-11-08 15:50 | ED ---
General Adult HPI - General Stated complaint: SOB Time Seen by Provider: 11/08/24 15:44 - History of Present Illness Initial comments: Magaly is a pleasant 74-year-old gentleman brought to the emergency department today by EMS from his nursing facility. Per caregivers at the facility the patient appeared to be having trouble breathing and when asked complained of pain in the chest. Patient states that he is having a little bit of trouble breathing but his main problem today is that he has pain in his back that radiates down both legs and today has not been able to walk due to the pain. He does report some tightness in the chest, some shortness of breath. He is somewhat of a poor historian. - Related Data Home Medications Medication Instructions Recorded Confirmed Cyanocobalamin (Vitamin B-12) 1,000 mcg PO DAILY@0800 08/23/22 11/08/24 [Vitamin B-12] Acetaminophen [Tylenol 8 Hour] 650 mg PO TID@0800,1400,199909/17/23 11/08/24 Atorvastatin Calcium [Lipitor] 40 mg PO HS@199909/17/23 11/08/24 Folic Acid 0.4 mg PO DAILY@0800 09/17/23 11/08/24 Levothyroxine Sodium [Synthroid] 100 mcg PO DAILY@0700 09/17/23 11/08/24 Mirtazapine 30 mg PO HS@199909/17/23 11/08/24 Budesonide-Formot 160-4.5 Mcg 2 puff INHALATION RT-BID@799,199910/16/23 11/08/24 [Symbicort 160-4.5 Mcg Inhaler] Dapagliflozin Propanediol [Farxiga] 10 mg PO DAILY@00 10/16/23 11/08/24 Losartan [Cozaar] 25 mg PO DAILY@79910/16/23 11/08/24 Budesonide 0.5 mg INHALATION RT-BID@0900,1800 03/03/24 11/08/24 Ipratropium-Albuterol Nebulize 3 ml INHALATION RT-QID 04/13/24 11/08/24 [Duoneb 0.5 mg-3 mg/3 ml Soln] Melatonin 10 mg PO HS@199904/13/24 11/08/24 Sennosides/Docusate Sodium 2 tab PO HS@199904/24/24 11/08/24 [Senna-S 8.6-50 mg Tablet] Apixaban [Eliquis] 5 mg PO BID@0800,199910/24/24 11/08/24 busPIRone HCl [Buspar] 10 mg PO BID@0800,199910/24/24 11/08/24 Cetirizine HCl [Zyrtec] 10 mg PO DAILY 11/08/24 11/08/24 Diclofenac Sodium Gel [Voltaren 1% 4 gm TOPICAL QID 11/08/24 11/08/24 Gel] Furosemide [Lasix] 20 mg PO DAILY@0800 11/08/24 11/08/24 Furosemide [Lasix] 40 mg PO DAILY@0800 11/08/24 11/08/24 Pantoprazole Sodium [Protonix] 20 mg PO AC-BID@0800,199911/08/24 11/08/24 Tiotropium 2.5 Mcg/Puff [Spiriva 2 puff INHALATION RT-DAILY 11/08/24 11/08/24 Respimat 2.5 Mcg] cilostazoL [Pletal] 100 mg PO BID@1000,199911/08/24 11/08/24 Previous Rx's Medication Instructions Recorded Nitroglycerin Sl Tabs [Nitrostat] 0.4 mg SUBLINGUAL Q5M PRN 90 Days 09/21/23 #100 tab HYDROcodone/APAP 5-325MG [[place] 1 tab PO Q6HR PRN #10 tab 04/10/24 5-325] Metoprolol Tartrate [Lopressor] 12.5 mg PO BID #60 tab 10/27/24 Allergies Allergy/AdvReac Type Severity Reaction Status Date / Time morphine Allergy Anaphylaxis Verified 11/08/24 16:44 Penicillins Allergy Swelling Verified 11/08/24 16:44 on entire body Influenza Virus Vaccines AdvReac Unknown Verified 11/08/24 16:44 pneumococcal vaccine AdvReac Unknown Verified 11/08/24 16:44 Review of Systems ROS Statement: Those systems with pertinent positive or pertinent negative responses have been documented in the HPI. ROS Other: All systems not noted in ROS Statement are negative. Past Medical History Past Medical History: Coronary Artery Disease (CAD), Heart Failure, COPD, Dementia, Hyperlipidemia, Hypertension, Myocardial Infarction (GA), Seizure Disorder, Syncope, Thyroid Disorder Additional Past Medical History / Comment(s): Ischemic cardiomyopathy, EF 20- 25%, last seizure about 2 yrs ago, hypothyroid.neuropathy "WHEN HE WORKED HE HAD A CRUSHING INJURY -COLLAPSED LUNGS C/T AND HAS CHRONIC BACK PAIN"" pt states he is schizophrenic/bipolar. TRIPLE A REPAIR AUG 2022 Last Myocardial Infarction Date:: unk History of Any Multi-Drug Resistant Organisms: None Reported Past Surgical History: AICD, Back Surgery, Coronary Bypass/CABG, Heart Catheterization, Heart Catheterization With Stent Additional Past Surgical History / Comment(s): 1995 CABG 4 vessel in [place], has had 2"HEART CATHS/had 2 STENTS after cabg sx.pt stated they were done in [facility]. "sx on tailbone, cortisone injections, devin inguinal hernia repair Past Anesthesia/Blood Transfusion Reactions: No Reported Reaction Date of Last Stent Placement:: 1995 Type of Cardiac Device: AICD Device Placement Date:: 1995 in [facility] Past Psychological History: Anxiety, Depression, Schizoaffective Disorder, Schizophrenia Smoking Status: Current every day smoker Past Alcohol Use History: None Reported Past Drug Use History: None Reported - Past Family History Mother Family Medical History: Respiratory Disorder Additional Family Medical History / Comment(s): Mother had TB Father Additional Family Medical History / Comment(s): Father was an alcoholic, was killed in a motor vehicle accident General Exam - General Exam Comments Initial Comments: Physical Exam GENERAL: Chronically ill-appearing HENT: Normocephalic, Atraumatic. EYES: PERRL, EOMI PULMONARY: Unlabored respirations. CARDIOVASCULAR: Irregularly irregular ABDOMEN: Soft and nontender with normal bowel sounds. SKIN: Pale : Deferred NEUROLOGIC: Patient is alert and oriented x to person MUSCULOSKELETAL: No obvious deformity or injury no lower extremity swelling or edema. PSYCHIATRIC: Pleasantly demented Course Vital Signs 11/08/24 11/08/24 11/08/24 15:37 15:53 18:47 Temperature 98.6 F 97.8 F Pulse Rate 107 H 86 Respiratory 18 24 24 Rate Blood Pressure 132/74 145/72 O2 Sat by Pulse 98 97 Oximetry 11/08/24 21:00 Temperature 98 F Pulse Rate 79 Respiratory 18 Rate Blood Pressure 161/79 O2 Sat by Pulse 97 Oximetry EKG Findings - EKG Comments: EKG Findings:: EKG interpreted by me, EKG obtained due to shortness of breath and chest pain, EKG obtained at 1552 rate is 87 rhythm is narrow complex irregularly irregular rhythm with flutter waves consistent with atrial flutter no obvious ST elevations or depressions no evidence of acute ischemia or infarction. Medical Decision Making - Medical Decision Making Was pt. sent in by a medical professional or institution (, PILO, FULL STACK PHP DEVELOPER, urgent care, hospital, or custodial...) When possible be specific @ -Yes, sent from custodial Did you speak to anyone other than the patient for history (EMS, parent, family, police, friend...)? What history was obtained from this source @ -No Did you review nursing and triage notes (agree or disagree)? Why? @ -I reviewed and agree with nursing and triage notes Were old charts reviewed (outside hosp., previous admission, EMS record, old EKG, old radiological studies, urgent care reports/EKG's, custodial records)? Report findings @ -Previous hospitalization and labs were reviewed Differential Diagnosis (chest pain, altered mental status, abdominal pain women, abdominal pain men, vaginal bleeding, weakness, fever, dyspnea, syncope, headache, dizziness, GI bleed, back pain, seizure, CVA, palpatations, mental health)? @ -Differential Dyspnea: Coronary syndrome, arrhythmia, tamponade, asthma, COPD, pulmonary embolism, pneumonia, pneumothorax, pulmonary effusion, anaphylaxis, diabetic ketoacidosis, flailed chest, pulmonary contusion, diaphragmatic rupture, anemia, neuromuscular, this is not meant to be an all-inclusive list. EKG interpreted by me (3pts min.). @ -As above X-rays interpreted by me (1pt min.). @ -No focal consolidations no widened mediastinum CT interpreted by me (1pt min.). @ -None done U/S interpreted by me (1pt. min.). @ -None done What testing was considered but not performed or refused? (CT, X-rays, U/S, labs)? Why? @ -None What meds were considered but not given or refused? Why? @ -None Did you discuss the management of the patient with other professionals (professionals i.e. , PILO, FULL STACK PHP DEVELOPER, lab, RT, psych nurse, social worker school, fitter machinist, teacher, chief accounting officer, bottle caser)? Give summary @ -No Was smoking cessation discussed for >3mins.? @ -No Was critical care preformed (if so, how long)? @ -No Were there social determinants of health that impacted care today? How? (Homelessness, low income, unemployed, alcoholism, drug addiction, transportation, low edu. Level, literacy, decrease access to med. care, halfway, rehab)? @ -No Was there de-escalation of care discussed even if they declined (Discuss DNR or withdrawal of care, Hospice)? DNR status @ -No What co-morbidities impacted this encounter? (DM, HTN, Smoking, COPD, CAD, Cancer, CVA, ARF, Chemo, Hep., AIDS, mental health diagnosis, sleep apnea, morbid obesity)? @ -CHF, COPD, PAD, Was patient admitted / discharged? Hospital course, mention meds given and route, prescriptions, significant lab abnormalities, going to OR and other pertinent info. @ -Admit Patient was seen and evaluated history is obtained from the patient. Patient noted to have increased work of breathing at custodial today his BNP is improved but he has acute kidney injury troponin is detectable although not significantly elevated this is a change from previous. Patient also has diffuse pain he is dehydrated with elevated BUN and creatinine and mildly hyperkalemic. No EKG changes from this. Patient will require gentle hydration and due to his history of CHF we will admit him for slow hydration and monitoring of his labs and symptoms. Undiagnosed new problem with uncertain prognosis? @ -No Drug Therapy requiring intensive monitoring for toxicity (Heparin, Nitro, Insulin, Cardizem)? @ -No Were any procedures done? @ -No Diagnosis/symptom? @ -Dehydration, MARSHALL, hyperkalemia, dyspnea Acute, or Chronic, or Acute on Chronic? @ -Acute Uncomplicated (without systemic symptoms) or Complicated (systemic symptoms)? @ -Complicated Side effects of treatment? @ -No Exacerbation, Progression, or Severe Exacerbation? @ -No Poses a threat to life or bodily function? How? (Chest pain, USA, GA, pneumonia, PE, COPD, DKA, ARF, appy, cholecystitis, CVA, Diverticulitis, Homicidal, Suicidal, threat to staff... and all critical care pts) @ -Yes, patient suffering from cardiorenal syndrome - Lab Data Result diagrams: 11/08/24 16:51 11/08/24 16:51 Lab Results 11/08/24 11/08/24 11/08/24 Range/Units 16:51 16:51 16:51 WBC 12.3 H (3.8-10.6) k/uL RBC 4.36 (4.30-5.90) m/uL Hgb 11.7 L (13.0-17.5) gm/dL Hct 38.2 L (39.0-53.0) % MCV 87.6 (80.0-100.0) fL MCH 26.8 (25.0-35.0) pg MCHC 30.6 L (31.0-37.0) g/dL RDW 16.7 H (11.5-15.5) % Plt Count 143 L (150-450) k/uL MPV 7.5 Neutrophils % 84 % Lymphocytes % 10 % Monocytes % 4 % Eosinophils % 0 % Basophils % 0 % Neutrophils # 10.4 H (1.3-7.7) k/uL Lymphocytes # 1.3 (1.0-4.8) k/uL Monocytes # 0.5 (0-1.0) k/uL Eosinophils # 0.0 (0-0.7) k/uL Basophils # 0.0 (0-0.2) k/uL Hypochromasia Marked Anisocytosis Slight PT 10.8 (10.0-12.5) sec INR 1.0 (<1.2) APTT 22.1 (22.0-30.0) sec Sodium 137 (137-145) mmol/L Potassium 5.5 H (3.5-5.1) mmol/L Chloride 101 (98-107) mmol/L Carbon Dioxide 28 (22-30) mmol/L Anion Gap 8 mmol/L BUN 42 H (9-20) mg/dL Creatinine 1.36 H (0.66-1.25) mg/dL Est GFR (CKD-EPI)AfAm 59 (>60 ml/min/1.73 sqM) Est GFR (CKD-EPI)NonAf 51 (>60 ml/min/1.73 sqM) Glucose 135 H (74-99) mg/dL Plasma Lactic Acid Rigoberto (0.7-2.0) mmol/L Calcium 9.4 (8.4-10.2) mg/dL Total Bilirubin 0.4 (0.2-1.3) mg/dL AST 27 (17-59) U/L ALT 28 (4-49) U/L Alkaline Phosphatase 48 (38-126) U/L Creatine Kinase 47 L (55-170) U/L Troponin I (0.000-0.034) ng/mL NT-Pro-B Natriuret Pep 1710 pg/mL Total Protein 6.7 (6.3-8.2) g/dL Albumin 4.3 (3.5-5.0) g/dL 11/08/24 11/08/24 Range/Units 16:51 16:51 WBC (3.8-10.6) k/uL RBC (4.30-5.90) m/uL Hgb (13.0-17.5) gm/dL Hct (39.0-53.0) % MCV (80.0-100.0) fL MCH (25.0-35.0) pg MCHC (31.0-37.0) g/dL RDW (11.5-15.5) % Plt Count (150-450) k/uL MPV Neutrophils % % Lymphocytes % % Monocytes % % Eosinophils % % Basophils % % Neutrophils # (1.3-7.7) k/uL Lymphocytes # (1.0-4.8) k/uL Monocytes # (0-1.0) k/uL Eosinophils # (0-0.7) k/uL Basophils # (0-0.2) k/uL Hypochromasia Anisocytosis PT (10.0-12.5) sec INR (<1.2) APTT (22.0-30.0) sec Sodium (137-145) mmol/L Potassium (3.5-5.1) mmol/L Chloride (98-107) mmol/L Carbon Dioxide (22-30) mmol/L Anion Gap mmol/L BUN (9-20) mg/dL Creatinine (0.66-1.25) mg/dL Est GFR (CKD-EPI)AfAm (>60 ml/min/1.73 sqM) Est GFR (CKD-EPI)NonAf (>60 ml/min/1.73 sqM) Glucose (74-99) mg/dL Plasma Lactic Acid Rigoberto 1.1 (0.7-2.0) mmol/L Calcium (8.4-10.2) mg/dL Total Bilirubin (0.2-1.3) mg/dL AST (17-59) U/L ALT (4-49) U/L Alkaline Phosphatase (38-126) U/L Creatine Kinase (55-170) U/L Troponin I 0.031 (0.000-0.034) ng/mL NT-Pro-B Natriuret Pep pg/mL Total Protein (6.3-8.2) g/dL Albumin (3.5-5.0) g/dL Disposition Clinical Impression: CHF (congestive heart failure), MARSHALL (acute kidney injury), Chest pain, Shortness of breath, Dehydration Disposition: ADMITTED IP TO THIS [facility] Condition: Good
--- NOTE | 2024-11-08 16:57 | XR ---
EXAMINATION TYPE: XR chest 1V portable DATE OF EXAM: 11/08/2024 4:37 PM COMPARISON: Chest radiographs from 10/26/2024 TECHNIQUE: XR chest 1V portable Portable AP radiograph of the chest. CLINICAL INDICATION:Male, 74 years old with history of dyspnea; FINDINGS: Lungs/Pleura: There is no evidence of pleural effusion, focal consolidation, or pneumothorax. Hyperi nflation. Pulmonary vascularity: Unremarkable. Heart/mediastinum: Cardiomediastinal silhouette is prominent in size. Post CABG changes. Three lead cardiac conduction device overlying the right hemithorax with lead tips projecting over the right micaela tricle, right atrium and coronary sinus. Musculoskeletal: No acute osseous pathology. Midline sternotomy wires are noted and stable. IMPRESSION: 1. No acute cardiopulmonary disease process. 2. COPD changes. [facility], , 11/08/2024 4:55 PM
[2024-11-08 17:05] LABS: Anisocytosis Slight; Basophils % (A) 0 %; Eosinophils % (A) 0 %; HCT 38.2 % (39.0-53.0); HGB 11.7 gm/dL (13.0-17.5); Hypochromasia Marked; Lymphocytes # (A) 1.3 k/uL (1.0-4.8); Lymphocytes % (A) 10 %; MCH 26.8 pg (25.0-35.0); MCHC 30.6 g/dL (31.0-37.0); MCV 87.6 fL (80.0-100.0); Mean Platelet Volume 7.5; Monocytes # (A) 0.5 k/uL (0-1.0); Monocytes % (A) 4 %; Neutrophils # (A) 10.4 k/uL (1.3-7.7); Neutrophils % (A) 84 %; Platelet Count 143 k/uL (150-450); RBC 4.36 m/uL (4.30-5.90); RDW 16.7 % (11.5-15.5); WBC 12.3 k/uL (3.8-10.6)
[2024-11-08 17:13] LABS: Partial Thromboplastin Time 22.1 sec (22.0-30.0); Prothrombin Time 10.8 sec (10.0-12.5)
[2024-11-08 17:23] LABS: ALT 28 U/L (4-49); AST 27 U/L (17-59); African American GFR (CKD) 59 (>60 ml/min/1.73 sqM); Albumin 4.3 g/dL (3.5-5.0); Alkaline Phosphatase 48 U/L (38-126); Anion Gap 8 mmol/L; Blood Urea Nitrogen 42 mg/dL (9-20); Calcium 9.4 mg/dL (8.4-10.2); Carbon Dioxide 28 mmol/L (22-30); Chloride 101 mmol/L (98-107); Creatine Kinase 47 U/L (55-170); Glucose 135 mg/dL (74-99); Non-African American GFR(CKD) 51 (>60 ml/min/1.73 sqM); Potassium 5.5 mmol/L (3.5-5.1); Sodium 137 mmol/L (137-145); Total Bilirubin 0.4 mg/dL (0.2-1.3); Total Protein 6.7 g/dL (6.3-8.2)
[2024-11-08 17:29] LABS: NT-Pro-B-Type Natriuretic Pept 1710 pg/mL
[2024-11-08] MEDS ORDERED: NALOXONE 0.4 MG/ML 1 ML VIAL IV PRN (18:40)
[2024-11-08] MEDS: SODIUM CHLORIDE 0.9% 500 ML 500 ML IV ONE (18:49)
[2024-11-08] MEDS: fentaNYL (PF) 50 MCG/ML 2 ML AMP IVP STA (18:50)
[2024-11-08] MEDS ORDERED: ACETAMINOPHEN TAB 325 MG TAB PO PRN (21:12)
[2024-11-08] MEDS ORDERED: LACTATED RINGERS 1,000 ML IV SCH (21:15)
--- NOTE | 2024-11-08 22:03 | P.HPIM ---
History of Present Illness H&P Date: 11/08/24 Patient is a 74 male with a PMH of CAD status post CABG x 4 and stent x 2, paroxysmal atrial fibrillation on Eliquis, ischemic cardiomyopathy (EF 20-25%), COPD, hypertension, seizure disorder, thyroid disorder presenting shortness of breath. Patient states he was walking down the [place] and he suddenly felt short of breath. Patient states he found it difficult to walk and could not bear to stand up due to back pain radiating down both his legs. States that he had a burning sensation in both of his legs most notably his right calf. Patient also reports of localized chest tightness, but only states it occurs only on inspiration. Patient also admits to minor headache. Patient denies any fever, chills, nausea, vomiting, diarrhea, abdominal pain, urinary symptoms. He was previously admitted here on 10/24/2024 due to acute on chronic systolic heart failure exacerbation secondary to ischemic systolic dysfunction and was discharged on 10/27/2024. EKG independently interpreted displays atrial flutter at a 3: 1 ratio, rate 87 bpm, QTc 389 MS Chest x-ray independently interpreted displaying no acute cardiopulmonary process proBNP 1710, WBC 12.3, Hgb 11.7, MCV 87.6, platelet 143, INR 1.0, potassium 5.5, BUN 42, creatinine 1.36, glucose 135, troponin 0.031 T98.6 F, DC 107, RR 18, BP 132/74, O2 saturation 98% on 4 L nasal cannula ED documentation reviewed. Review of systems: Pertinent positives and negatives as discussed in HPI, a complete review of systems was performed and all other systems are negative. Social history: Tobacco: current smoker Alcohol: denies alcohol use Recreational drugs: Admits to occasional marijuana use Physical examination: Vital signs reviewed General: non toxic, no distress, appears at stated age, normal weight Derm: no unusual rashes/lesions, warm Head: atraumatic, normocephalic, symmetric Eyes: EOMI, anicteric sclera, pupils equal round reactive to light ENT: Nose and ears atraumatic Mouth: no lip lesion, mucus membranes moist Cardiovascular: S1S2 reg, no murmur, positive dorsalis pedis pulse bilateral, no edema Lungs: CTA bilateral, no rhonchi, no rales, no accessory muscle use Abdominal: soft, nontender to palpation, no guarding Ext: muscle strength 3 out of 5 in devin LE and 5 out of 5 in devin UEs grossly, no gross muscle atrophy Neuro: CN II-XI grossly intact, no gross focal neuro deficits Psych: Alert, oriented to person, place, and time Assessment/Plan: Patient is a 74 male with a PMH of CAD status post CABG x 4, paroxysmal atrial fibrillation on Eliquis, ischemic cardiomyopathy (EF 20-25%), COPD, hy pertension, seizure disorder, thyroid disorder presenting shortness of breath. #. MARSHALL on CKD stage 3a #. Mild hyperkalemia #. Ischemic cardiomyopathy (EF 20-25%) EKG independently interpreted displays atrial flutter at a 3: 1 ratio, rate 87 bpm, QTc 389 MS Chest x-ray independently interpreted displaying no acute cardiopulmonary process proBNP 1710 downtrending from 3740 from last admission on 10/24/2024 Troponin 0.031, continue to trend Likely in the setting of overdiuresis, patient previously admitted for acute on chronic heart failure Hold Lasix Continue GDMT Cozaar 25 mg p.o. daily, Farxiga 10 mg p.o. daily, Lopressor 12.5 mg p.o. twice daily Daily weights, intake/output, monitor electrolytes and renal function Cardiac telemetry #. Debility, likely due ongoing disease process Obtain PT consult Encourage safe ambulation #. Leukocytosis #. Bicytopenia WBC 12.3, likely reactive to acute stress Hgb 11.7 at baseline, platelet 143 Follow-up CBC #. Paroxysmal atrial fibrillation/flutter Continue with Eliquis 5 mg p.o. twice daily Chronic: #. COPD (on 3 L home oxygen), not in exacerbation Denies any increased cough or sputum production Continue with DuoNeb 4 times daily, Tiotropium, Pulmicort breathing treatment Currently on 2 L nasal cannula #. CAD status post CABG x 4 and stent x 2 Continue with atorvastatin 40 mg p.o. at bedtime #. Hypothyroidism Continue with Synthroid 100 mcg p.o. daily #. GERD Protonix 20 mg p.o. AC twice daily #. Anxiety Continue with BuSpar 10 mg p.o. twice daily F: N/A E: Replete electrolytes as needed N: Heart healthy diet A: Ambulatory at baseline DVT prophylaxis: Eliquis 5 mg p.o. twice daily The patient is admitted with an anticipated less than than 2 midnight stay for evaluation of shortness of breath. CODE STATUS: FULL CODE Discussed with: Patient Anticipated discharge place: Pending clinical course Julissa Jacob MD PGY-1 IM Dictation was produced using [employer] dictation software. please excuse any grammatical, word or spelling errors. Past Medical History Past Medical History: Coronary Artery Disease (CAD), Heart Failure, COPD, Dementia, Hyperlipidemia, Hypertension, Myocardial Infarction ([place]), Seizure Disorder, Syncope, Thyroid Disorder Additional Past Medical History / Comment(s): Ischemic cardiomyopathy, EF 20- 25%, last seizure about 2 yrs ago, hypothyroid.neuropathy "WHEN HE WORKED HE HAD A CRUSHING INJURY -COLLAPSED LUNGS C/T AND HAS CHRONIC BACK PAIN"" pt states he is schizophrenic/bipolar. TRIPLE A REPAIR AUG 2022 Last Myocardial Infarction Date:: unk History of Any Multi-Drug Resistant Organisms: None Reported Past Surgical History: AICD, Back Surgery, Coronary Bypass/CABG, Heart Catheterization, Heart Catheterization With Stent Additional Past Surgical History / Comment(s): 1995 CABG 4 vessel in [place], has had 2"HEART CATHS/had 2 STENTS after cabg sx.pt stated they were done in [facility]. "sx on tailbone, cortisone injections, devin inguinal hernia repair Past Anesthesia/Blood Transfusion Reactions: No Reported Reaction Date of Last Stent Placement:: 1995 Type of Cardiac Device: AICD Device Placement Date:: 1995 in [facility] Past Psychological History: Anxiety, Depression, Schizoaffective Disorder, Schizophrenia Smoking Status: Current every day smoker Past Alcohol Use History: None Reported Past Drug Use History: None Reported - Past Family History Mother Family Medical History: Respiratory Disorder Additional Family Medical History / Comment(s): Mother had TB Father Additional Family Medical History / Comment(s): Father was an alcoholic, was killed in a motor vehicle accident Medications and Allergies Home Medications Medication Instructions Recorded Confirmed Type Cyanocobalamin (Vitamin B-12) 1,000 mcg PO DAILY@0800 08/23/22 11/08/24 History [Vitamin B-12] Acetaminophen [Tylenol 8 Hour] 650 mg PO TID@0800,1400,199909/17/23 11/08/24 History Atorvastatin Calcium [Lipitor] 40 mg PO HS@199909/17/23 11/08/24 History Folic Acid 0.4 mg PO DAILY@0809/17/23 11/08/24 History Levothyroxine Sodium [Synthroid] 100 mcg PO DAILY@69909/17/23 11/08/24 History Mirtazapine 30 mg PO HS@199909/17/23 11/08/24 History Nitroglycerin Sl Tabs [Nitrostat] 0.4 mg SUBLINGUAL Q5M PRN 90 Days 09/21/23 11/08/24 Rx #100 tab Budesonide-Formot 160-4.5 Mcg 2 puff INHALATION RT-BID@08,199910/16/23 11/08/24 History [Symbicort 160-4.5 Mcg Inhaler] Dapagliflozin Propanediol [Farxiga] 10 mg PO DAILY@79910/16/23 11/08/24 History Losartan [Cozaar] 25 mg PO DAILY@79910/16/23 11/08/24 History Budesonide 0.5 mg INHALATION RT-BID@0900,1800 03/03/24 11/08/24 History HYDROcodone/APAP 5-325MG [[place] 1 tab PO Q6HR PRN #10 tab 04/10/24 11/08/24 Rx 5-325] Ipratropium-Albuterol Nebulize 3 ml INHALATION RT-QID 04/13/24 11/08/24 History [Duoneb 0.5 mg-3 mg/3 ml Soln] Melatonin 10 mg PO HS@199904/13/24 11/08/24 History Sennosides/Docusate Sodium 2 tab PO HS@199904/24/24 11/08/24 History [Senna-S 8.6-50 mg Tablet] Apixaban [Eliquis] 5 mg PO BID@08,199910/24/24 11/08/24 History busPIRone HCl [Buspar] 10 mg PO BID@08,199910/24/24 11/08/24 History Metoprolol Tartrate [Lopressor] 12.5 mg PO BID #60 tab 10/27/24 11/08/24 Rx Cetirizine HCl [Zyrtec] 10 mg PO DAILY 11/08/24 11/08/24 History Diclofenac Sodium Gel [Voltaren 1% 4 gm TOPICAL QID 11/08/24 11/08/24 History Gel] Furosemide [Lasix] 20 mg PO DAILY@0800 11/08/24 11/08/24 History Furosemide [Lasix] 40 mg PO DAILY@0811/08/24 11/08/24 History Pantoprazole Sodium [Protonix] 20 mg PO AC-BID@08,199911/08/24 11/08/24 History Tiotropium 2.5 Mcg/Puff [Spiriva 2 puff INHALATION RT-DAILY 11/08/24 11/08/24 History Respimat 2.5 Mcg] cilostazoL [Pletal] 100 mg PO BID@999,199911/08/24 11/08/24 History Allergies Allergy/AdvReac Type Severity Reaction Status Date / Time morphine Allergy Anaphylaxis Verified 11/08/24 16:44 Penicillins Allergy Swelling Verified 11/08/24 16:44 on entire body Influenza Virus Vaccines AdvReac Unknown Verified 11/08/24 16:44 pneumococcal vaccine AdvReac Unknown Verified 11/08/24 16:44 Physical Exam Vitals: Vital Signs Temp Pulse Resp BP Pulse Ox 11/08/24 18:47 97.8 F 86 24 145/72 97 11/08/24 15:53 24 11/08/24 15:37 98.6 F 107 H 18 132/74 98 Intake and Output 11/08/24 11/08/24 11/08/24 06:59 14:59 22:59 Other: Weight 73.936 kg Results CBC & Chem 7: 11/08/24 16:51 11/08/24 16:51 Labs: Abnormal Lab Results - Last 24 Hours (Table) 11/08/24 11/08/24 Range/Units 16:51 16:51 WBC 12.3 H (3.8-10.6) k/uL Hgb 11.7 L (13.0-17.5) gm/dL Hct 38.2 L (39.0-53.0) % MCHC 30.6 L (31.0-37.0) g/dL RDW 16.7 H (11.5-15.5) % Plt Count 143 L (150-450) k/uL Neutrophils # 10.4 H (1.3-7.7) k/uL Potassium 5.5 H (3.5-5.1) mmol/L BUN 42 H (9-20) mg/dL Creatinine 1.36 H (0.66-1.25) mg/dL Glucose 135 H (74-99) mg/dL Creatine Kinase 47 L (55-170) U/L
[2024-11-08] MEDS: MELATONIN 5 MG TABLET PO SCH (22:47)
[2024-11-08] MEDS: HYDROcodone/APAP 5-325MG 1 EACH TAB PO PRN (22:47)
[2024-11-08] MEDS: ATORVASTATIN 40 MG TAB PO SCH (22:47)
[2024-11-08] MEDS: METOPROLOL TARTRATE 25 MG TAB PO SCH (22:47)
[2024-11-09] MEDS: DICLOFENAC SODIUM GEL 100 GM TUBE TOPICAL SCH (00:13)
[2024-11-09] MEDS: IPRATROPIUM-ALBUTEROL 3 ML NEB INHALATION SCH (00:17)
[2024-11-09] MEDS: MIRTAZAPINE 15 MG TAB PO SCH (00:34)
[2024-11-09] MEDS: busPIRone HCl 10 MG TAB PO SCH (00:34)
[2024-11-09] MEDS: APIXABAN 5 MG TAB PO SCH (00:34)
[2024-11-09 00:40] LABS: Influenza A Not Detected (Not Detectd); Influenza B Not Detected (Not Detectd); RSV Not Detected (Not Detectd)
[2024-11-09 03:46] LABS: Anisocytosis Slight; Basophils % (A) 0 %; Eosinophils # (A) 0.1 k/uL (0-0.7); Eosinophils % (A) 1 %; HCT 34.9 % (39.0-53.0); HGB 10.9 gm/dL (13.0-17.5); Hypochromasia Marked; Lymphocytes # (A) 2.6 k/uL (1.0-4.8); Lymphocytes % (A) 28 %; MCH 27.4 pg (25.0-35.0); MCHC 31.1 g/dL (31.0-37.0); MCV 88.1 fL (80.0-100.0); Mean Platelet Volume 7.4; Monocytes # (A) 0.5 k/uL (0-1.0); Monocytes % (A) 5 %; Neutrophils % (A) 64 %; Platelet Count 128 k/uL (150-450); RBC 3.97 m/uL (4.30-5.90); RDW 16.9 % (11.5-15.5); WBC 9.4 k/uL (3.8-10.6)
[2024-11-09 04:00] LABS: ALT 24 U/L (4-49); AST 24 U/L (17-59); African American GFR (CKD) 71 (>60 ml/min/1.73 sqM); Albumin 3.6 g/dL (3.5-5.0); Albumin/Globulin Ratio 1.6; Alkaline Phosphatase 43 U/L (38-126); Anion Gap 8 mmol/L; Blood Urea Nitrogen 38 mg/dL (9-20); Calcium 9.3 mg/dL (8.4-10.2); Carbon Dioxide 27 mmol/L (22-30); Chloride 101 mmol/L (98-107); Globulin 2.3 g/dL; Glucose 98 mg/dL (74-99); Magnesium 1.8 mg/dL (1.6-2.3); Non-African American GFR(CKD) 61 (>60 ml/min/1.73 sqM); Potassium 4.2 mmol/L (3.5-5.1); Sodium 136 mmol/L (137-145); Total Bilirubin 0.4 mg/dL (0.2-1.3); Total Protein 5.9 g/dL (6.3-8.2)
[2024-11-09] MEDS ORDERED: IPRATROPIUM-ALBUTEROL 3 ML NEB INHALATION PRN (05:16)
[2024-11-09] MEDS: SYMBICORT 160-4.5 MCG INHALER INHALATION SCH (05:56)
[2024-11-09 06:28] VITALS: RESP 18
[2024-11-09] MEDS ORDERED: IPRATROPIUM 0.5 MG/2.5 ML NEBU INHALATION SCH (08:00)
[2024-11-09] MEDS ORDERED: LOSARTAN 25 MG TAB PO SCH (08:00)
[2024-11-09] MEDS: FOLIC ACID 1 MG TAB PO SCH (08:36)
[2024-11-09] MEDS: DAPAGLIFLOZIN PROPANEDIOL 10 MG TABLET PO SCH (08:36)
[2024-11-09] MEDS: CYANOCOBALAMIN 500 MCG TAB PO SCH (08:37)
[2024-11-09] MEDS: LORATADINE 10 MG TAB PO SCH (08:37)
[2024-11-09] MEDS: LEVOTHYROXINE 100 MCG TAB PO SCH (08:37)
[2024-11-09] MEDS: PANTOPRAZOLE 40 MG TABLET PO SCH (08:37)
[2024-11-09] MEDS ORDERED: BUDESONIDE 0.5 MG/2 ML NEBU INHALATION SCH (09:00)
[2024-11-09] MEDS: cilostazoL 100 MG TAB PO SCH (10:18)
[2024-11-09] MEDS: ASPIRIN 81 MG PO SCH (10:18)
[2024-11-09] MEDS: LOSARTAN 25 MG TAB PO SCH (10:18)
--- NOTE | 2024-11-09 12:30 | P.CRDCN ---
History of Present Illness History of present illness: HISTORY OF PRESENT ILLNESS: This is a 74-year-old male with a past medical history significant for coronary artery disease with previous CABG in [place] followed by PCI, paroxysmal atr ial fibrillation, dementia, hyperlipidemia, hypertension, seizure disorder, hypothyroidism, AICD implantation, AAA repair, ischemic cardiomyopathy, nicotine dependence, and COPD. Patient follows in the office with Dr. Madden. We have been asked to see the patient in consultation for elevated troponin. Patient examined at the bedside. Patient states he came to the emergency room due to pain in his legs. Patient states that he has pain that starts in his spine and radiates down both of his legs. He denies having any chest pain or pressure. He denies any shortness of breath. Vital signs are stable. DIAGNOSTICS: - EKG reveals atrial flutter with controlled ventricular rate. - Chest xray negative for acute process. COPD changes. - Laboratory data: WBC 9.4. Hemoglobin 10.9. Platelet count 128. Sodium 136. Potassium 4.2. BUN 38. Creatinine 1.17. Magnesium 1.8. Troponin 0.031. 0.02 9. 0.036. - Current home cardiac medications include Lipitor 40 mg at night, metoprolol tartrate 12.5 mg twice a day, losartan 25 mg daily, Lasix 40 mg daily, Eliquis 5 mg twice a day, Pletal 100 mg twice a day -Cardiac catheterization performed 09/16/2023 revealed CAD 100% proximal LAD stenosis, 75% proximal circumflex stenosis, 100% RCA stenosis, occluded SVG to PDA, patent FIORE to LAD, SVG to diagonal with 95% stenosis, status post PCI of the SVG to diagonal. -Echocardiogram performed 04/25/24 revealed EF of 15 to 20% with moderate mitral regurgitation. -Echocardiogram completed in October 2024 revealed ejection fraction 5% with severe hypokinesis of inferior apical wall, mild pulmonary hypertension, moderate to severe mitral regurgitation, mild to moderate tricuspid regurgitation REVIEW OF SYSTEMS: At the time of my exam: CONSTITUTIONAL: Denies fever or chills. HEENT: Denies blurred vision, vision changes, or eye pain. Denies hemoptysis CARDIOVASCULAR: Denies chest pain. Denies orthopnea. Denies PND. Denies palpitations RESPIRATORY: Denies shortness of breath. GASTROINTESTINAL: Denies abdominal pain. Denies nausea or vomiting. HEMATOLOGIC: Denies bleeding disorders. GENITOURINARY: Denies any blood in urine. SKIN: Denies pruitis. Denies rash. PHYSICAL EXAM: VITAL SIGNS: Reviewed. GENERAL: Well-developed in no acute distress. HEENT: Head is normocephalic. Pupils are equal, round. Sclerae anicteric. Mucous membranes of the mouth are moist. Neck supple. No JVD or thyromegaly LUNGS: Respirations even and unlabored. Lungs essentially clear to auscultation bilaterally. HEART: Regular rate and rhythm. S1 and S2 heard. ABDOMEN: Soft. Nondistended. Nontender. EXTREMITIES: Normal range of motion. No clubbing or cyanosis. Peripheral pulses intact. No lower extremity edema NEUROLOGIC: Awake and alert. Oriented x 3. ASSESSMENT: Bilateral leg pain Chest pain, ruled out, patient denies any chest pain or pressure Acute kidney injury, resolved Minimally elevated troponin, likely secondary to MARSHALL, no evidence of myocardial injury or ischemia Ischemic cardiomyopathy with EF of 20 to 25% History of AICD implantation Paroxysmal atrial fibrillation/typical atrial flutter Coronary artery disease status post CABG in 1995 followed by PCI of the SVG to diagonal Hypertension Hyperlipidemia History of AAA repair Seizure disorder Moderate to severe mitral regurgitation Mild pulm hypertension PLAN: An acute coronary event has been ruled out Add Imdur 30 mg daily Resume home cardiac medications as listed above No further inpatient recommendations from a cardiac standpoint We will sign off. Please reconsult if needed. Nurse practitioner note has been reviewed by physician. Signing provider agrees with the documented findings, assessment, and plan of care documented by THEATER TEACHER as a scribe. Past Medical History Past Medical History: Coronary Artery Disease (CAD), Heart Failure, COPD, Dementia, Hyperlipidemia, Hypertension, Myocardial Infarction ([place]), Seizure Disorder, Syncope, Thyroid Disorder Additional Past Medical History / Comment(s): Ischemic cardiomyopathy, EF 20- 25%, last seizure about 2 yrs ago, hypothyroid.neuropathy "WHEN HE WORKED HE HAD A CRUSHING INJURY -COLLAPSED LUNGS C/T AND HAS CHRONIC BACK PAIN"" pt states he is schizophrenic/bipolar. TRIPLE A REPAIR AUG 2022 Last Myocardial Infarction Date:: unk History of Any Multi-Drug Resistant Organisms: None Reported Past Surgical History: AICD, Back Surgery, Coronary Bypass/CABG, Heart Catheterization, Heart Catheterization With Stent Additional Past Surgical History / Comment(s): 1995 CABG 4 vessel in [place], has had 2"HEART CATHS/had 2 STENTS after cabg sx.pt stated they were done in [facility]. "sx on tailbone, cortisone injections, devin inguinal hernia repair Past Anesthesia/Blood Transfusion Reactions: No Reported Reaction Date of Last Stent Placement:: 1995 Type of Cardiac Device: AICD Device Placement Date:: 1995 in [facility] Past Psychological History: Anxiety, Depression, Schizoaffective Disorder, Schizophrenia Smoking Status: Current every day smoker Past Alcohol Use History: None Reported Past Drug Use History: None Reported - Past Family History Mother Family Medical History: Respiratory Disorder Additional Family Medical History / Comment(s): Mother had TB Father Additional Family Medical History / Comment(s): Father was an alcoholic, was killed in a motor vehicle accident Medications and Allergies Home Medications Medication Instructions Recorded Confirmed Type Cyanocobalamin (Vitamin B-12) 1,000 mcg PO DAILY@0800 08/23/22 11/08/24 History [Vitamin B-12] Acetaminophen [Tylenol 8 Hour] 650 mg PO TID@0800,1400,199909/17/23 11/08/24 History Atorvastatin Calcium [Lipitor] 40 mg PO HS@199909/17/23 11/08/24 History Folic Acid 0.4 mg PO DAILY@0800 09/17/23 11/08/24 History Levothyroxine Sodium [Synthroid] 100 mcg PO DAILY@00 09/17/23 11/08/24 History Mirtazapine 30 mg PO HS@199909/17/23 11/08/24 History Nitroglycerin Sl Tabs [Nitrostat] 0.4 mg SUBLINGUAL Q5M PRN 90 Days 09/21/23 11/08/24 Rx #100 tab Budesonide-Formot 160-4.5 Mcg 2 puff INHALATION RT-BID@00,199910/16/23 11/08/24 History [Symbicort 160-4.5 Mcg Inhaler] Dapagliflozin Propanediol [Farxiga] 10 mg PO DAILY@0800 10/16/23 11/08/24 History Losartan [Cozaar] 25 mg PO DAILY@0800 10/16/23 11/08/24 History Budesonide 0.5 mg INHALATION RT-BID@0900,1800 03/03/24 11/08/24 History HYDROcodone/APAP 5-325MG [[place] 1 tab PO Q6HR PRN #10 tab 04/10/24 11/08/24 Rx 5-325] Ipratropium-Albuterol Nebulize 3 ml INHALATION RT-QID 04/13/24 11/08/24 History [Duoneb 0.5 mg-3 mg/3 ml Soln] Melatonin 10 mg PO HS@199904/13/24 11/08/24 History Sennosides/Docusate Sodium 2 tab PO HS@199904/24/24 11/08/24 History [Senna-S 8.6-50 mg Tablet] Apixaban [Eliquis] 5 mg PO BID@0800,199910/24/24 11/08/24 History busPIRone HCl [Buspar] 10 mg PO BID@0800,199910/24/24 11/08/24 History Metoprolol Tartrate [Lopressor] 12.5 mg PO BID #60 tab 10/27/24 11/08/24 Rx Cetirizine HCl [Zyrtec] 10 mg PO DAILY 11/08/24 11/08/24 History Diclofenac Sodium Gel [Voltaren 1% 4 gm TOPICAL QID 11/08/24 11/08/24 History Gel] Furosemide [Lasix] 20 mg PO DAILY@0800 11/08/24 11/08/24 History Furosemide [Lasix] 40 mg PO DAILY@0800 11/08/24 11/08/24 History Pantoprazole Sodium [Protonix] 20 mg PO AC-BID@08,199911/08/24 11/08/24 History Tiotropium 2.5 Mcg/Puff [Spiriva 2 puff INHALATION RT-DAILY 11/08/24 11/08/24 History Respimat 2.5 Mcg] cilostazoL [Pletal] 100 mg PO BID@999,199911/08/24 11/08/24 History Allergies Allergy/AdvReac Type Severity Reaction Status Date / Time morphine Allergy Anaphylaxis Verified 11/08/24 16:44 Penicillins Allergy Swelling Verified 11/08/24 16:44 on entire body Influenza Virus Vaccines AdvReac Unknown Verified 11/08/24 16:44 pneumococcal vaccine AdvReac Unknown Verified 11/08/24 16:44 Physical Exam Vitals: Vital Signs Temp Pulse Pulse Resp BP BP Pulse Ox 11/09/24 11:05 84 11/09/24 10:54 80 11/09/24 06:57 97.4 F L 76 18 157/81 97 11/09/24 06:28 89 18 165/79 95 11/09/24 06:08 88 11/09/24 05:58 86 11/09/24 03:35 80 11/09/24 01:27 98 F 120 H 17 137/82 93 L 11/09/24 00:28 82 11/09/24 00:19 80 98 11/08/24 21:19 97.6 F 80 14 151/71 98 11/08/24 21:00 98 F 79 18 161/79 97 11/08/24 18:47 97.8 F 86 24 145/72 97 11/08/24 15:53 24 11/08/24 15:37 98.6 F 107 H 18 132/74 98 Intake and Output 11/08/24 11/09/24 11/09/24 22:59 06:59 14:59 Intake Total 460 Output Total 650 400 Balance -190 -400 Intake: Oral 460 Output: Urine 650 400 Other: Voiding Method Urinal Diaper # Voids 2 Weight 73.936 kg Results 11/09/24 03:29 11/09/24 03:29 Cardiac Enzymes 11/08/24 11/08/24 11/08/24 Range/Units 16:51 16:51 23:13 AST 27 (17-59) U/L Troponin I 0.031 0.029 (0.000-0.034) ng/mL 11/09/24 11/09/24 Range/Units 03:29 03:29 AST 24 (17-59) U/L Troponin I 0.036 H* (0.000-0.034) ng/mL Coagulation 11/08/24 Range/Units 16:51 PT 10.8 (10.0-12.5) sec APTT 22.1 (22.0-30.0) sec CBC 11/08/24 11/09/24 Range/Units 16:51 03:29 WBC 12.3 H 9.4 (3.8-10.6) k/uL RBC 4.36 3.97 L (4.30-5.90) m/uL Hgb 11.7 L 10.9 L (13.0-17.5) gm/dL Hct 38.2 L 34.9 L (39.0-53.0) % Plt Count 143 L 128 L (150-450) k/uL Comprehensive Metabolic Panel 11/08/24 11/09/24 Range/Units 16:51 03:29 Sodium 137 136 L (137-145) mmol/L Potassium 5.5 H 4.2 (3.5-5.1) mmol/L Chloride 101 101 (98-107) mmol/L Carbon Dioxide 28 27 (22-30) mmol/L BUN 42 H 38 H (9-20) mg/dL Creatinine 1.36 H 1.17 (0.66-1.25) mg/dL Glucose 135 H 98 (74-99) mg/dL Calcium 9.4 9.3 (8.4-10.2) mg/dL AST 27 24 (17-59) U/L ALT 28 24 (4-49) U/L Alkaline Phosphatase 48 43 (38-126) U/L Total Protein 6.7 5.9 L (6.3-8.2) g/dL Albumin 4.3 3.6 (3.5-5.0) g/dL Current Medications Generic Name Dose Route Start Last Admin Trade Name Freq PRN Reason Stop Dose Admin Acetaminophen 650 mg 11/08/24 21:12 Acetaminophen Tab 325 Mg Tab PO Q6HR PRN Fever and/ or Pain Hydrocodone Bitart/Acetaminophen 1 each 11/08/24 21:14 11/09/24 08:38 Hydrocodone/Apap 5-325mg 1 Each Tab PO 1 each Q6HR PRN Administration Pain Albuterol/Ipratropium 3 ml 11/09/24 00:15 11/09/24 10:54 Ipratropium-Albuterol 3 Ml Neb INHALATION 3 ml RT-QID RADHA Administration Albuterol/Ipratropium 3 ml 11/09/24 05:16 Ipratropium-Albuterol 3 Ml Neb INHALATION RT-QID PRN Shortness Of Breath Or Wheezing Apixaban 5 mg 11/09/24 00:15 11/09/24 08:41 Apixaban 5 Mg Tab PO 5 mg BID@0800,2000 RADHA Administration Protocol Aspirin 81 mg 11/09/24 09:45 11/09/24 10:18 Aspirin 81 Mg PO 81 mg DAILY RADHA Administration Atorvastatin Calcium 40 mg 11/08/24 22:30 11/08/24 22:47 Atorvastatin 40 Mg Tab PO 40 mg HS@1999 [facility] Administration Budesonide/Formoterol Fumarate 2 puff 11/09/24 08:00 11/09/24 05:56 Symbicort 160-4.5 Mcg Inhaler INHALATION 2 puff RT-BID@ [facility] Administration Buspirone HCl 10 mg 11/09/24 00:15 11/09/24 08:41 Buspirone Hcl 10 Mg Tab PO 10 mg BID@08 [facility] Administration Cilostazol 100 mg 11/09/24 10:00 11/09/24 10:18 Cilostazol 100 Mg Tab PO 100 mg BID@ [facility] Administration Cyanocobalamin 1,000 mcg 11/09/24 08:00 11/09/24 08:37 Cyanocobalamin 500 Mcg Tab PO 1,000 mcg DAILY@08 [facility] Administration Dapagliflozin 10 mg 11/09/24 08:00 11/09/24 08:36 Dapagliflozin Propanediol 10 Mg Tablet PO 10 mg DAILY@0800 [facility] Administration Diclofenac Sodium 4 gm 11/08/24 22:30 11/09/24 08:39 Diclofenac Sodium Gel 100 Gm Tube TOPICAL 4 gm QID [facility] Administration Protocol Folic Acid 0.5 mg 11/09/24 08:00 11/09/24 08:36 Folic Acid 1 Mg Tab PO 0.5 mg DAILY@0800 [facility] Administration Isosorbide Mononitrate 30 mg 11/09/24 11:45 Isosorbide Mononitrate Er 30 Mg Tab.Er.24h PO DAILY [facility] Levothyroxine Sodium 100 mcg 11/09/24 07:00 11/09/24 08:37 Levothyroxine 100 Mcg Tab PO 100 mcg DAILY@0700 [facility] Administration Loratadine 10 mg 11/09/24 09:00 11/09/24 08:37 Loratadine 10 Mg Tab PO 10 mg DAILY [facility] Administration Losartan Potassium 25 mg 11/09/24 09:45 11/09/24 10:18 Losartan 25 Mg Tab PO 25 mg DAILY [facility] Administration Melatonin 10 mg 11/08/24 22:30 11/08/24 22:47 Melatonin 5 Mg Tablet PO 10 mg HS@1999 [facility] Administration Metoprolol Tartrate 12.5 mg 11/08/24 22:30 11/09/24 08:38 Metoprolol Tartrate 25 Mg Tab PO 12.5 mg BID RADHA Administration Mirtazapine 30 mg 11/09/24 00:15 11/09/24 00:34 Mirtazapine 15 Mg Tab PO 30 mg HS@1999 RADHA Administration Naloxone HCl 0.2 mg 11/08/24 18:40 Naloxone 0.4 Mg/Ml 1 Ml Vial IV Q2M PRN Opioid Reversal Pantoprazole Sodium 40 mg 11/09/24 08:00 11/09/24 08:37 Pantoprazole 40 Mg Tablet PO 40 mg AC-BID@ [facility] Administration Senna/Docusate Sodium 2 each 11/09/24 20:00 Sennosides-Docusate Sodium 1 Each Tab PO HS@1999 [facility] Intake and Output 11/08/24 11/09/24 11/09/24 22:59 06:59 14:59 Intake Total 460 Output Total 650 400 Balance -190 -400 Intake: Oral 460 Output: Urine 650 400 Other: Voiding Method Urinal Diaper # Voids 2 Weight 73.936 kg 11/09/24 03:29 11/09/24 03:29
[2024-11-09 12:33] VITALS: BP 115/72; PULSE 75; TEMP 97.3
[2024-11-09] MEDS: ISOSORBIDE MONONITRATE ER 30 MG TAB.ER.24H PO SCH (12:44)
--- NOTE | 2024-11-09 12:46 | P.DS ---
Providers Date of admission: 11/08/24 18:40 Expected date of discharge: 11/09/24 Attending physician: Bo Mason Primary care physician: Denys Quispe MD Hospital Course: Discharge diagnoses; #MARSHALL on CKD stage 3a #Mild hyperkalemia #Ischemic cardiomyopathy (EF 20-25%) #Debility, likely due ongoing disease process #Leukocytosis #Bicytopenia #Paroxysmal atrial fibrillation/flutter #COPD (on 3 L home oxygen), not in exacerbation #CAD status post CABG x 4 and stent x 2 #Hypothyroidism #GERD #Anxiety Hospital course; 74 male with a PMH of CAD status post CABG x 4 and stent x 2, paroxysmal atrial fibrillation on Eliquis, ischemic cardiomyopathy (EF 20-25%), COPD, hypertension, seizure disorder, thyroid disorder presenting shortness of breath. Patient states he was walking down the malave and he suddenly felt short of breath. Patient states he found it difficult to walk and could not bear to stand up due to back pain radiating down both his legs. States that he had a burning sensation in both of his legs most notably his right calf. He reported some localized chest tightness during inspiration when he arrived in the hospital, however has not had any episodes of chest pain/pressure at any point during the duration of his stay. He is feeling much better this morning, and is acute kidney injury evident on labs on arrival has since resolved. While in the emergency department he underwent a chest x-ray which showed no acute cardiopulmonary disease process, with evidence of normal changes for COPD. While on the floors he was seen and evaluated by cardiology who ruled out any acute coronary event. They did add a medication to his current cardiac medical regimen, Imdur 30 mg daily. As a result of his acute kidney injury on arrival to the hospital, his normal doses of Lasix were held. At this time, he is euvolemic and has been instructed to discontinue the Lasix for now. Upon following up after discharge with his primary care physician and cardiology he can discuss any necessary changes to his Lasix regimen with them in the outpatient setting. He states that he is feeling well this morning, has no acute complaints at this time. He is excited to be discharged morning. Physical Exam: General: nontoxic, no distress, appears at stated age Derm: warm, dry, intact Head: atraumatic, normocephalic, symmetric Eyes: EOMI, anicteric sclera Mouth: no lip lesion, mucus membranes moist Cardiovascular: S1 S2 reg, no murmur, rubs, or gallops Lungs: CTA bilateral, no rales, no accessory muscle use Abdominal: soft, non-tender to palpataion, no appreciable organomegaly Extremities: no gross muscle atrophy, no edema, no contractures Neuro: Alert, Oriented, CNII-XII grossly intact, gait normal Psych: well appearing, appropriate affect Dictation was produced using [employer] dictation software. please excuse any grammatical, word or spelling errors. Fran Mosquera MD PGY-1 IM A total of 38 minutes of time were spent preparing this complex discharge summary. Patient was discharged on 11/09/2024 at 1238. I have seen and evaluated the patient today. Discussed with the resident and agree with the residents finding and plan as documented in the resident's note. Changes highlighted in blue font. Patient Condition at Discharge: Fair Plan - Discharge Summary Discharge Rx Participant: No New Discharge Prescriptions: New Aspirin 81 mg PO DAILY #60 tab Isosorbide Mononitrate ER [Imdur] 30 mg PO DAILY #30 tab Continue Cyanocobalamin (Vitamin B-12) [Vitamin B-12] 1,000 mcg PO DAILY@0800 Acetaminophen [Tylenol 8 Hour] 650 mg PO TID@0800,1400,2000 Atorvastatin Calcium [Lipitor] 40 mg PO HS@2000 Budesonide-Formot 160-4.5 Mcg [Symbicort 160-4.5 Mcg Inhaler] 2 puff INHALATION RT-BID@0800,2000 Budesonide 0.5 mg INHALATION RT-BID@0900,1800 HYDROcodone/APAP 5-325MG [Eldred 5-325] 1 tab PO Q6HR PRN #10 tab PRN Reason: Pain Ipratropium-Albuterol Nebulize [Duoneb 0.5 mg-3 mg/3 ml Soln] 3 ml INHALATION RT-QID cilostazoL [Pletal] 100 mg PO BID@1000,2000 Folic Acid 0.4 mg PO DAILY@0800 Levothyroxine Sodium [Synthroid] 100 mcg PO DAILY@0700 Mirtazapine 30 mg PO HS@2000 Nitroglycerin Sl Tabs [Nitrostat] 0.4 mg SUBLINGUAL Q5M PRN 90 Days #100 tab PRN Reason: Chest Pain Losartan [Cozaar] 25 mg PO DAILY@0800 Dapagliflozin Propanediol [Farxiga] 10 mg PO DAILY@0800 Melatonin 10 mg PO HS@1999 Sennosides/Docusate Sodium [Senna-S 8.6-50 mg Tablet] 2 tab PO HS@1999 Apixaban [Eliquis] 5 mg PO BID@08,1999 busPIRone HCl [Buspar] 10 mg PO BID@08,1999 Metoprolol Tartrate [Lopressor] 12.5 mg PO BID #60 tab Tiotropium 2.5 Mcg/Puff [Spiriva Respimat 2.5 Mcg] 2 puff INHALATION RT-DAILY Pantoprazole Sodium [Protonix] 20 mg PO AC-BID@799,1999 Diclofenac Sodium Gel [Voltaren 1% Gel] 4 gm TOPICAL QID Cetirizine HCl [Zyrtec] 10 mg PO DAILY Discontinued Furosemide [Lasix] 20 mg PO DAILY@0800 Furosemide [Lasix] 40 mg PO DAILY@0800 Discharge Medication List Cyanocobalamin (Vitamin B-12) [Vitamin B-12] 1,000 mcg PO DAILY@0800 08/23/22 [History] Acetaminophen [Tylenol 8 Hour] 650 mg PO TID@0800,1400,199909/17/23 [History] Atorvastatin Calcium [Lipitor] 40 mg PO HS@199909/17/23 [History] Folic Acid 0.4 mg PO DAILY@0809/17/23 [History] Levothyroxine Sodium [Synthroid] 100 mcg PO DAILY@0709/17/23 [History] Mirtazapine 30 mg PO HS@199909/17/23 [History] Nitroglycerin Sl Tabs [Nitrostat] 0.4 mg SUBLINGUAL Q5M PRN 90 Days #100 tab 09/21/23 [Rx] Budesonide-Formot 160-4.5 Mcg [Symbicort 160-4.5 Mcg Inhaler] 2 puff INHALATION RT-BID@799,199910/16/23 [History] Dapagliflozin Propanediol [Farxiga] 10 mg PO DAILY@0800 10/16/23 [History] Losartan [Cozaar] 25 mg PO DAILY@0810/16/23 [History] Budesonide 0.5 mg INHALATION RT-BID@0900,1800 03/03/24 [History] HYDROcodone/APAP 5-325MG [Eldred 5-325] 1 tab PO Q6HR PRN #10 tab 04/10/24 [Rx] Ipratropium-Albuterol Nebulize [Duoneb 0.5 mg-3 mg/3 ml Soln] 3 ml INHALATION RT-QID 04/13/24 [History] Melatonin 10 mg PO HS@199904/13/24 [History] Sennosides/Docusate Sodium [Senna-S 8.6-50 mg Tablet] 2 tab PO HS@199904/24/24 [History] Apixaban [Eliquis] 5 mg PO BID@08,199910/24/24 [History] busPIRone HCl [Buspar] 10 mg PO BID@0800,199910/24/24 [History] Metoprolol Tartrate [Lopressor] 12.5 mg PO BID #60 tab 10/27/24 [Rx] Cetirizine HCl [Zyrtec] 10 mg PO DAILY 11/08/24 [History] Diclofenac Sodium Gel [Voltaren 1% Gel] 4 gm TOPICAL QID 11/08/24 [History] Pantoprazole Sodium [Protonix] 20 mg PO AC-BID@799,199911/08/24 [History] Tiotropium 2.5 Mcg/Puff [Spiriva Respimat 2.5 Mcg] 2 puff INHALATION RT-DAILY 11/08/24 [History] cilostazoL [Pletal] 100 mg PO BID@999,199911/08/24 [History] Aspirin 81 mg PO DAILY #60 tab 11/09/24 [Rx] Isosorbide Mononitrate ER [Imdur] 30 mg PO DAILY #30 tab 11/09/24 [Rx] Follow up Appointment(s)/Referral(s): Denys Quispe MD [Primary Care Provider] - 1-2 days Pal Glover MD [STAFF PHYSICIAN] - 11/19/24 1:30 pm (appointment with Roselyn ZIMMERMAN) Patient Instructions/Handouts: Acute Kidney Injury (GEN) Activity/Diet/Wound Care/Special Instructions: Please make note of medication changes have been made: -Lasix has been discontinued for now, as there is no evidence of any volume overload at this time. Should be discussed in reevaluation with primary care physician as well as cardiology when following up within 1 week of discharge. -Additionally, new medication added to current cardiac regimen, Imdur 30 mg daily added by the cardiology team while inpatient. Discussed, and emphasize compliance with medical regimen. As well as importance of following up regularly with PCP as well as cardiology.
[2024-11-09] MEDS ORDERED: SENNOSIDES-DOCUSATE SODIUM 1 EACH TAB PO SCH (20:00)
== END 2024-11-09 14:02 | disposition home health service (06) ==
LOC: EC 15:34 → 5NMEDONC 18:40
PROVIDERS: ADMIT Student in an Organized Health Care Education/Training Program; ATTEND Student in an Organized Health Care Education/Training Program
DX: N17.9 Acute kidney failure, unspecified (principal); I13.0 Hypertensive heart and chronic kidney disease with heart failure and stage 1 through stage 4 chronic kidney disease, or unspecified chronic kidney disease; I50.22 Chronic systolic (congestive) heart failure; N18.31 Chronic kidney disease, stage 3a; E87.5 Hyperkalemia; R53.81 Other malaise; D72.829 Elevated white blood cell count, unspecified; K21.9 Gastro-esophageal reflux disease without esophagitis; I25.5 Ischemic cardiomyopathy; I25.10 Atherosclerotic heart disease of native coronary artery without angina pectoris; J44.9 Chronic obstructive pulmonary disease, unspecified; F03.94 Unspecified dementia, unspecified severity, with anxiety; E78.5 Hyperlipidemia, unspecified; E03.9 Hypothyroidism, unspecified; F32.A Depression, unspecified; F17.200 Nicotine dependence, unspecified, uncomplicated; F25.9 Schizoaffective disorder, unspecified; E86.0 Dehydration; M79.604 Pain in right leg; M79.605 Pain in left leg; R07.89 Other chest pain; I48.0 Paroxysmal atrial fibrillation; I48.3 Typical atrial flutter; G40.909 Epilepsy, unspecified, not intractable, without status epilepticus; I34.0 Nonrheumatic mitral (valve) insufficiency; I27.20 Pulmonary hypertension, unspecified; I25.2 Old myocardial infarction; Z11.52 Encounter for screening for COVID-19; Z95.5 Presence of coronary angioplasty implant and graft; Z95.810 Presence of automatic (implantable) cardiac defibrillator; Z99.81 Dependence on supplemental oxygen; Z79.01 Long term (current) use of anticoagulants; Z79.02 Long term (current) use of antithrombotics/antiplatelets; Z79.51 Long term (current) use of inhaled steroids; Z79.84 Long term (current) use of oral hypoglycemic drugs; Z79.890 Hormone replacement therapy; Z79.899 Other long term (current) drug therapy; Z88.0 Allergy status to penicillin; Z88.5 Allergy status to narcotic agent
CPT/HCPCS: 96374; 99285; 36415; 94640 ×2; 93005; 97161; 83880; 80053 ×2; 82550; 83605; 83735; 84484 ×2; 85025 ×2; 85610; 85730; 87636; 71045; G0378 ×2; J3010

== ENCOUNTER 2024-11-11 23:21 | Inpatient (IN) | payer MEDICARE, OTHER ==
--- NOTE | 2024-11-11 23:24 | ED ---
SOB HPI - General Stated Complaint: Shortness of breath Time Seen by Provider: 11/11/24 23:23 Source: RN notes reviewed, old records reviewed Mode of arrival: ambulatory Limitations: no limitations - History of Present Illness Initial Comments: This is a 74-year-old male to the ER for severe COPD CHF and history of A-fib, patient having severe shortness of breath very anxious and presents to the ER for evaluation today. No chest pain patient also complains of migraine but is a poor historian MD Complaint: shortness of breath -: minutes(s), hour(s), days(s) Severity: moderate Severity scale (1-10): 7 Quality: aching Improves With: nothing Worsens With: nothing Known History Of: COPD, asthma, congestive heart failure Context: recent URI, anxiety, recent illness Associated Symptoms: chest pain, cough, palpitations Treatments Prior to Arrival: oxygen, bronchodilator - Related Data Home Medications Medication Instructions Recorded Confirmed Cyanocobalamin (Vitamin B-12) 1,000 mcg PO DAILY@0800 08/23/22 11/12/24 [Vitamin B-12] Acetaminophen [Tylenol 8 Hour] 650 mg PO TID@0800,1400,199909/17/23 11/12/24 Atorvastatin Calcium [Lipitor] 40 mg PO HS@199909/17/23 11/12/24 Folic Acid 0.4 mg PO DAILY@0800 09/17/23 11/12/24 Levothyroxine Sodium [Synthroid] 100 mcg PO DAILY@0700 09/17/23 11/12/24 Mirtazapine 30 mg PO HS@199909/17/23 11/12/24 Budesonide-Formot 160-4.5 Mcg 2 puff INHALATION RT-BID@0800,199910/16/23 11/12/24 [Symbicort 160-4.5 Mcg Inhaler] Dapagliflozin Propanediol [Farxiga] 10 mg PO DAILY@0800 10/16/23 11/12/24 Budesonide 0.5 mg INHALATION RT-BID@0900,1800 03/03/24 11/12/24 Ipratropium-Albuterol Nebulize 3 ml INHALATION RT-QID 04/13/24 11/12/24 [Duoneb 0.5 mg-3 mg/3 ml Soln] Melatonin 10 mg PO HS@199904/13/24 11/12/24 Sennosides/Docusate Sodium 2 tab PO HS@199904/24/24 11/12/24 [Senna-S 8.6-50 mg Tablet] Apixaban [Eliquis] 5 mg PO BID@0800,199910/24/24 11/12/24 busPIRone HCl [Buspar] 10 mg PO BID@08,199910/24/24 11/12/24 Diclofenac Sodium Gel [Voltaren 1% 4 gm TOPICAL QID@08,12,16,20 11/08/24 11/12/24 Gel] Pantoprazole Sodium [Protonix] 20 mg PO AC-BID@799,199911/08/24 11/12/24 Tiotropium 2.5 Mcg/Puff [Spiriva 2 puff INHALATION RT-DAILY@79911/08/24 11/12/24 Respimat 2.5 Mcg] cilostazoL [Pletal] 100 mg PO BID@999,199911/08/24 11/12/24 Aspirin 81 mg PO DAILY@0811/12/24 11/12/24 Previous Rx's Medication Instructions Recorded Nitroglycerin Sl Tabs [Nitrostat] 0.4 mg SUBLINGUAL Q5M PRN 90 Days 09/21/23 #100 tab HYDROcodone/APAP 5-325MG [Kenly 1 tab PO Q6HR PRN #10 tab 04/10/24 5-325] Metoprolol Tartrate [Lopressor] 25 mg PO BID@799,1999 #0 11/14/24 Nicotine 14Mg/24Hr Patch [Habitrol] 1 patch TRANSDERM DAILY #30 patch 11/14/24 Sacubitril/Valsartan [Entresto 24 1 each PO Q12H #60 tab 11/14/24 mg-26 mg Tablet] Spironolactone [Aldactone] 12.5 mg PO DAILY #30 tab 11/14/24 Torsemide [Demadex] 10 mg PO DAILY #30 tab 11/14/24 predniSONE 10 mg PO DAILY #30 tab 11/14/24 Allergies Allergy/AdvReac Type Severity Reaction Status Date / Time morphine Allergy Anaphylaxis Verified 11/12/24 11:18 Penicillins Allergy Swelling Verified 11/12/24 11:31 on entire body Influenza Virus Vaccines AdvReac Unknown Verified 11/12/24 11:18 pneumococcal vaccine AdvReac Unknown Verified 11/12/24 11:18 Review of Systems ROS Statement: Those systems with pertinent positive or pertinent negative responses have been documented in the HPI. ROS Other: All systems not noted in ROS Statement are negative. Past Medical History Past Medical History: Coronary Artery Disease (CAD), Heart Failure, COPD, Dementia, Hyperlipidemia, Hypertension, Myocardial Infarction ([place]), Seizure Disorder, Syncope, Thyroid Disorder Additional Past Medical History / Comment(s): Ischemic cardiomyopathy, EF 20- 25%, last seizure about 2 yrs ago, hypothyroid.neuropathy "WHEN HE WORKED HE HAD A CRUSHING INJURY -COLLAPSED LUNGS C/T AND HAS CHRONIC BACK PAIN"" pt states he is schizophrenic/bipolar. TRIPLE A REPAIR AUG 2022 Last Myocardial Infarction Date:: unk History of Any Multi-Drug Resistant Organisms: None Reported Past Surgical History: AICD, Back Surgery, Coronary Bypass/CABG, Heart Catheterization, Heart Catheterization With Stent Additional Past Surgical History / Comment(s): 1995 CABG 4 vessel in [place], has had 2"HEART CATHS/had 2 STENTS after cabg sx.pt stated they were done in [facility]. "sx on tailbone, cortisone injections, devin inguinal hernia repair Past Anesthesia/Blood Transfusion Reactions: No Reported Reaction Date of Last Stent Placement:: 1995 Type of Cardiac Device: AICD Device Placement Date:: [address] [facility] Past Psychological History: Anxiety, Depression, Schizoaffective Disorder, Schizophrenia Smoking Status: Current every day smoker Past Alcohol Use History: None Reported Past Drug Use History: None Reported - Past Family History Mother Family Medical History: Respiratory Disorder Additional Family Medical History / Comment(s): Mother had TB Father Additional Family Medical History / Comment(s): Father was an alcoholic, was killed in a motor vehicle accident General Exam General appearance: alert, in no apparent distress Head exam: Present: atraumatic, normocephalic, normal inspection Eye exam: Present: normal appearance, PERRL, EOMI. Absent: scleral icterus, conjunctival injection, periorbital swelling ENT exam: Present: normal exam, mucous membranes moist Neck exam: Present: normal inspection. Absent: tenderness, meningismus, lymphadenopathy Respiratory exam: Present: normal lung sounds bilaterally. Absent: respiratory distress, wheezes, rales, rhonchi, stridor Cardiovascular Exam: Present: regular rate, normal rhythm, normal heart sounds. Absent: systolic murmur, diastolic murmur, rubs, gallop, clicks GI/Abdominal exam: Present: soft, normal bowel sounds. Absent: distended, tenderness, guarding, rebound, rigid Extremities exam: Present: normal inspection, full ROM, normal capillary refill. Absent: tenderness, pedal edema, joint swelling, calf tenderness Back exam: Present: normal inspection Neurological exam: Present: alert, oriented X3, CN II-XII intact Psychiatric exam: Present: normal affect, normal mood Skin exam: Present: warm, dry, intact, normal color. Absent: rash Course Vital Signs 11/11/24 11/12/24 11/12/24 23:38 01:15 01:42 Temperature 97.5 F L Pulse Rate 106 H 80 104 H Respiratory 18 Rate Blood Pressure 129/99 O2 Sat by Pulse 96 Oximetry 11/12/24 11/12/24 11/12/24 01:52 05:28 06:14 Temperature 97.5 F L Pulse Rate 104 H 115 H 122 H Respiratory 18 18 19 Rate Blood Pressure 133/75 140/72 147/99 O2 Sat by Pulse 98 99 97 Oximetry 11/12/24 11/12/24 11/12/24 06:58 07:30 09:00 Temperature 97.6 F Pulse Rate 98 92 82 Respiratory 18 20 22 Rate Blood Pressure 140/79 132/63 142/71 O2 Sat by Pulse 96 98 100 Oximetry 11/12/24 11/12/24 11/12/24 11:00 12:24 12:28 Temperature 97.4 F L Pulse Rate 89 77 Respiratory 21 Rate Blood Pressure 108/78 O2 Sat by Pulse 97 98 Oximetry 11/12/24 11/12/24 11/12/24 12:35 13:00 13:27 Temperature 97.7 F Pulse Rate 80 68 84 Respiratory 22 20 Rate Blood Pressure 134/89 118/83 O2 Sat by Pulse 96 98 Oximetry 11/12/24 11/12/24 11/12/24 14:00 15:51 16:00 Temperature Pulse Rate 73 74 77 Respiratory 17 17 Rate Blood Pressure 118/83 108/74 O2 Sat by Pulse 99 99 Oximetry 11/12/24 11/12/24 11/12/24 16:08 18:00 19:35 Temperature Pulse Rate 76 69 66 Respiratory 22 17 Rate Blood Pressure 108/68 107/68 O2 Sat by Pulse 98 100 Oximetry 11/12/24 11/12/24 11/12/24 19:57 20:00 20:08 Temperature Pulse Rate 70 70 71 Respiratory 14 Rate Blood Pressure 115/79 O2 Sat by Pulse 100 Oximetry 11/13/24 11/13/24 11/13/24 00:00 04:00 07:44 Temperature Pulse Rate 73 68 Respiratory 20 16 Rate Blood Pressure 107/63 116/76 O2 Sat by Pulse 97 96 94 L Oximetry 11/13/24 11/13/24 11/13/24 08:23 09:00 09:57 Temperature Pulse Rate 91 69 Respiratory 18 18 Rate Blood Pressure 111/59 97/61 O2 Sat by Pulse 95 95 Oximetry 11/13/24 11/13/24 10:00 11:10 Temperature 96.9 F L Pulse Rate 66 69 Respiratory 20 18 Rate Blood Pressure 111/59 95/52 O2 Sat by Pulse 98 98 Oximetry - Reevaluation(s) Reevaluation #1: 11/12/24 00:03 Medical records reviewed Reevaluation #2: 11/12/24 00:03 Patient symptoms unchanged still anxious Reevaluation #3: 11/12/24 00:03 Patient informed of results and questions answered Reevaluation #4: Was pt. sent in by a medical professional or institution (, PA, ENGINEER CHIEF, urgent care, hospital, or senior care...) When possible be specific @ -no Did you speak to anyone other than the patient for history (EMS, parent, family, police, friend...)? What history was obtained from this source @ -no Did you review nursing and triage notes (agree or disagree)? Why? @ -agree Are old charts reviewed (outside hosp., previous admission, EMS record, old EKG, old radiological studies, urgent care reports/EKG's, senior care records)? Re port findings @ -yes Differential Diagnosis (chest pain, altered mental status, abdominal pain women, abdominal pain men, vaginal bleeding, weakness, fever, dyspnea, syncope, headache, dizziness, GI bleed, back pain, seizure, CVA, palpatations, mental health, musculoskeletal)? @ -prior EKG interpreted by me (3pts min.). @ -yes X-rays interpreted by me (1pt min.). @ -yes mild edema CT interpreted by me (1pt min.). @ -no U/S interpreted by me (1pt. min.). @ -no What testing was considered but not performed or refused? (CT, X-rays, U/S, labs)? Why? @ -none What meds were considered but not given or refused? Why? @ -none Did you discuss the management of the patient with other professionals (professionals i.e. , PA, ENGINEER CHIEF, lab, RT, psych nurse, social science research assistant, pipe supervisor, teacher, public service officer, caser in)? Give summary @ -no Was smoking cessation discussed for >3mins.? @ -no Was critical care preformed (if so, how long)? @ -yes31 Were there social determinants of health that impacted care today? How? (Homelessness, low income, unemployed, alcoholism, drug addiction, transpor tation, low edu. Level, literacy, decrease access to med. care, senior care, rehab)? @ -none Was there de-escalation of care discussed even if they declined (Discuss DNR or withdrawal of care, Hospice)? DNR status @ -no What co-morbidities impacted this encounter? (DM, HTN, Smoking, COPD, CAD, Cancer, CVA, ARF, Chemo, Hep., AIDS, mental health diagnosis, sleep apnea, morbid obesity)? @ -none Was patient admitted / discharged? Hospital course, mention meds given and route, prescriptions, significant lab abnormalities, going to OR and other pertinent info. @ - 74 male to the ER for evaluation today. Patient presents today for evaluation regards to severe shortness of breath history of severe COPD does admit to some anxiety he is in A-fib heart rate is controlled. Patient will be admitted for supportive care Admitted Undiagnosed new problem with uncertain prognosis? @ -no Drug Therapy requiring intensive monitoring for toxicity (Heparin, Nitro, Insulin, Cardizem)? @ -no Were any procedures done? @ -no Diagnosis/symptom? @ -Atrial fibrillation RVR, COPD, CHF Acute, or Chronic, or Acute on Chronic? @ -Acute Uncomplicated (without systemic symptoms) or Complicated (systemic symptoms)? @ -Complicated Side effects of treatment? @ -no Exacerbation, Progression, or Severe Exacerbation? @ -exacerbation Poses a threat to life or bodily function? How? (Chest pain, [place], [place], pneumonia, PE, COPD, DKA, ARF, appy, cholecystitis, CVA, Diverticulitis, Homicidal, Suicidal, threat to staff... and all critical care pts) @ -yes arrhythmia with dyspnea Reevaluation #5: Differential Dyspnea: Coronary syndrome, arrhythmia, tamponade, asthma, COPD, pulmonary embolism, pneumonia, pneumothorax, pulmonary effusion, anaphylaxis, diabetic ketoacidosis, flailed chest, pulmonary contusion, diaphragmatic rupture, anemia, neuromuscular, this is not meant to be an all-inclusive list. - Consultations Consultation #1: Spoke with sound who agrees to admit this patient Medical Decision Making - Medical Decision Making 74 male to the ER for evaluation today. Patient presents today for evaluation regards to severe shortness of breath history of severe COPD does admit to some anxiety he is in A-fib heart rate is controlled. Patient will be admitted for supportive care - Lab Data Result diagrams: 11/13/24 06:04 11/16/24 06:48 Lab Results 11/11/24 11/11/24 11/11/24 Range/Units 00:35 00:35 00:35 WBC 7.2 (3.8-10.6) k/uL RBC 4.55 (4.30-5.90) m/uL Hgb 12.1 L (13.0-17.5) gm/dL Hct 40.1 (39.0-53.0) % MCV 88.0 (80.0-100.0) fL MCH 26.5 (25.0-35.0) pg MCHC 30.1 L (31.0-37.0) g/dL RDW 16.9 H (11.5-15.5) % Plt Count 176 (150-450) k/uL MPV 8.3 Neutrophils % 64 % Lymphocytes % 24 % Monocytes % 8 % Eosinophils % 1 % Basophils % 0 % Neutrophils # 4.6 (1.3-7.7) k/uL Lymphocytes # 1.7 (1.0-4.8) k/uL Monocytes # 0.6 (0-1.0) k/uL Eosinophils # 0.0 (0-0.7) k/uL Basophils # 0.0 (0-0.2) k/uL Hypochromasia Slight Anisocytosis Slight PT 10.9 (10.0-12.5) sec INR 1.0 (<1.2) APTT 22.1 (22.0-30.0) sec Sodium 136 L (137-145) mmol/L Potassium 4.5 (3.5-5.1) mmol/L Chloride 98 (98-107) mmol/L Carbon Dioxide 29 (22-30) mmol/L Anion Gap 9 mmol/L BUN 18 (9-20) mg/dL Creatinine 0.94 (0.66-1.25) mg/dL Est GFR (CKD-EPI)AfAm >90 (>60 ml/min/1.73 sqM) Est GFR (CKD-EPI)NonAf 81 (>60 ml/min/1.73 sqM) Glucose 92 (74-99) mg/dL Plasma Lactic Acid Rigoberto (0.7-2.0) mmol/L Calcium 10.3 H (8.4-10.2) mg/dL Magnesium 1.9 (1.6-2.3) mg/dL Total Bilirubin 0.9 (0.2-1.3) mg/dL AST 37 (17-59) U/L ALT 26 (4-49) U/L Alkaline Phosphatase 51 (38-126) U/L Troponin I (0.000-0.034) ng/mL NT-Pro-B Natriuret Pep 1220 pg/mL Total Protein 7.2 (6.3-8.2) g/dL Albumin 4.4 (3.5-5.0) g/dL 11/11/24 11/11/24 Range/Units 00:35 00:35 WBC (3.8-10.6) k/uL RBC (4.30-5.90) m/uL Hgb (13.0-17.5) gm/dL Hct (39.0-53.0) % MCV (80.0-100.0) fL MCH (25.0-35.0) pg MCHC (31.0-37.0) g/dL RDW (11.5-15.5) % Plt Count (150-450) k/uL MPV Neutrophils % % Lymphocytes % % Monocytes % % Eosinophils % % Basophils % % Neutrophils # (1.3-7.7) k/uL Lymphocytes # (1.0-4.8) k/uL Monocytes # (0-1.0) k/uL Eosinophils # (0-0.7) k/uL Basophils # (0-0.2) k/uL Hypochromasia Anisocytosis PT (10.0-12.5) sec INR (<1.2) APTT (22.0-30.0) sec Sodium (137-145) mmol/L Potassium (3.5-5.1) mmol/L Chloride (98-107) mmol/L Carbon Dioxide (22-30) mmol/L Anion Gap mmol/L BUN (9-20) mg/dL Creatinine (0.66-1.25) mg/dL Est GFR (CKD-EPI)AfAm (>60 ml/min/1.73 sqM) Est GFR (CKD-EPI)NonAf (>60 ml/min/1.73 sqM) Glucose (74-99) mg/dL Plasma Lactic Acid Rigoberto 1.2 (0.7-2.0) mmol/L Calcium (8.4-10.2) mg/dL Magnesium (1.6-2.3) mg/dL Total Bilirubin (0.2-1.3) mg/dL AST (17-59) U/L ALT (4-49) U/L Alkaline Phosphatase (38-126) U/L Troponin I 0.048 H* (0.000-0.034) ng/mL NT-Pro-B Natriuret Pep pg/mL Total Protein (6.3-8.2) g/dL Albumin (3.5-5.0) g/dL - EKG Data -: EKG Interpreted by Me (EKG is a flutter 89 QRS 100 QTc 419) - Radiology Data Radiology results: report reviewed (Chest x-ray is negative for acute disease), image reviewed Critical Care Time Critical Care Time: Yes Total Critical Care Time: 31 Disposition Clinical Impression: COPD with exacerbation, COPD (chronic obstructive pulmonary disease), CHF exacerbation, Atrial flutter, Anxiety, Coronary artery disease Disposition: ADMITTED IP TO THIS HOSP Is patient prescribed a controlled substance at d/c from ED?: No Time of Disposition: 00:30
[2024-11-12] MEDS ORDERED: ONDANSETRON 4 MG/2 ML VIAL IVP PRN (00:17)
[2024-11-12] MEDS ORDERED: NALOXONE 0.4 MG/ML 1 ML VIAL IVP PRN (00:17)
[2024-11-12] MEDS ORDERED: HYDROmorphone 1 MG/ML 1 ML SYRINGE IVP PRN (00:17)
[2024-11-12] MEDS ORDERED: ALBUTEROL NEBULIZED 2.5 MG/3 ML INHALATION PRN (00:17)
[2024-11-12] MEDS ORDERED: NALOXONE 0.4 MG/ML 1 ML VIAL IV PRN (00:17)
[2024-11-12] MEDS: SODIUM CHLORIDE 0.9% 1,000 ML IV SCH ×2 (00:59→01:05)
[2024-11-12] MEDS: LORazepam 2 MG/ML INJ IV STA (01:03)
[2024-11-12] MEDS: methylPREDNISolone SOD SUCCI 125 MG/2 ML VIAL IV STA (01:05)
[2024-11-12 01:07] LABS: Anisocytosis Slight; Basophils % (A) 0 %; Eosinophils % (A) 1 %; HCT 40.1 % (39.0-53.0); HGB 12.1 gm/dL (13.0-17.5); Hypochromasia Slight; Lymphocytes # (A) 1.7 k/uL (1.0-4.8); Lymphocytes % (A) 24 %; MCH 26.5 pg (25.0-35.0); MCHC 30.1 g/dL (31.0-37.0); Mean Platelet Volume 8.3; Monocytes # (A) 0.6 k/uL (0-1.0); Monocytes % (A) 8 %; Neutrophils # (A) 4.6 k/uL (1.3-7.7); Neutrophils % (A) 64 %; Platelet Count 176 k/uL (150-450); RBC 4.55 m/uL (4.30-5.90); RDW 16.9 % (11.5-15.5); WBC 7.2 k/uL (3.8-10.6)
[2024-11-12] MEDS: IPRATROPIUM-ALBUTEROL 3 ML NEB INHALATION STA ×2 (01:12→01:13)
--- NOTE | 2024-11-12 01:12 | XR ---
EXAM: XR Chest, 1 View CLINICAL HISTORY: sob TECHNIQUE: Frontal view of the chest. COMPARISON: 11/08/2024. FINDINGS: Status post sternotomy. Right subclavian dual-lead pacemaker with AICD. Heart is enlarged. Hypoventilation with mild pulmonary vascular congestion. Patchy left basilar atelectasis versus infiltrate. Cannot exclude a small left pleural effusion. No pneumothorax. Bones are unchanged. IMPRESSION: Hypoventilation with mild pulmonary vascular congestion. Patchy left basilar atelectasis versus infiltrate.
[2024-11-12 01:14] LABS: ALT 26 U/L (4-49); AST 37 U/L (17-59); African American GFR (CKD) >90 (>60 ml/min/1.73 sqM); Albumin 4.4 g/dL (3.5-5.0); Alkaline Phosphatase 51 U/L (38-126); Anion Gap 9 mmol/L; Blood Urea Nitrogen 18 mg/dL (9-20); Calcium 10.3 mg/dL (8.4-10.2); Carbon Dioxide 29 mmol/L (22-30); Chloride 98 mmol/L (98-107); Glucose 92 mg/dL (74-99); Magnesium 1.9 mg/dL (1.6-2.3); Non-African American GFR(CKD) 81 (>60 ml/min/1.73 sqM); Potassium 4.5 mmol/L (3.5-5.1); Sodium 136 mmol/L (137-145); Total Bilirubin 0.9 mg/dL (0.2-1.3); Total Protein 7.2 g/dL (6.3-8.2)
[2024-11-12 01:22] LABS: NT-Pro-B-Type Natriuretic Pept 1220 pg/mL
[2024-11-12 01:32] LABS: Partial Thromboplastin Time 22.1 sec (22.0-30.0); Prothrombin Time 10.9 sec (10.0-12.5)
[2024-11-12] MEDS: diphenhydrAMINE 50 MG/ML 1 ML VIAL IVP STA (01:54)
[2024-11-12] MEDS: KETOROLAC 15 MG/ML 1 ML VIAL IVP STA (01:56)
[2024-11-12] MEDS: PROCHLORPERAZINE INJ 10 MG/2 ML VIAL IVP STA (01:56)
[2024-11-12] MEDS: FUROSEMIDE 10 MG/ML 4 ML VIAL IV SCH ×2 (02:45→15:08)
[2024-11-12] MEDS: MORPHINE SULFATE 4 MG/ML SYRINGE IV STA (06:19)
[2024-11-12] MEDS: DEXTROSE 5% IN WATER 100 ML with AMIODARONE 150 MG IV ONE (06:42)
[2024-11-12] MEDS: AMIODARONE 360 MG in DEXTROSE 5% IN WATER 200 ML IV ONE (06:56)
[2024-11-12] MEDS: APIXABAN 5 MG TAB PO SCH (09:45)
[2024-11-12] MEDS: METOPROLOL TARTRATE 12.5 MG TAB PO SCH (09:45)
[2024-11-12] MEDS: PANTOPRAZOLE 40 MG/10 ML VIAL IV SCH (09:46)
[2024-11-12] MEDS ORDERED: NITROGLYCERIN SL TABS 0.4 MG TAB SUBLINGUAL PRN (10:31)
[2024-11-12] MEDS: LEVOTHYROXINE 100 MCG TAB PO SCH (10:52)
[2024-11-12] MEDS: busPIRone HCl 10 MG TAB PO SCH (11:45)
[2024-11-12] MEDS: cilostazoL 100 MG TAB PO SCH (11:46)
[2024-11-12] MEDS: ASPIRIN 81 MG PO SCH (11:47)
[2024-11-12] MEDS: ISOSORBIDE MONONITRATE ER 30 MG TAB.ER.24H PO SCH (11:51)
[2024-11-12] MEDS: SYMBICORT 160-4.5 MCG INHALER INHALATION SCH (12:22)
[2024-11-12] MEDS: IPRATROPIUM-ALBUTEROL 3 ML NEB INHALATION SCH (12:23)
[2024-11-12] MEDS: BUDESONIDE 0.5 MG/2 ML NEBU INHALATION SCH (12:23)
[2024-11-12] MEDS: TIOTROPIUM 2.5 MCG INHALER INHALATION SCH (12:24)
--- NOTE | 2024-11-12 12:34 | P.HPIM ---
History of Present Illness H&P Date: 11/12/24 Chief Complaint: Short of breath pleasant 74-year-old male, follows with visiting physicians Dr. Quispe. With a past medical history of CAD status post CABG x 4 followed by stent placement x 2, nonischemic cardiomyopathy status post AICD placement, hypertension, hyperlipidemia, COPD, hypothyroidism, anxiety with depression, schizoaffective disorder, schizophrenia, and nicotine dependence. Lives at [facility]. Patient just in the hospital discharged on November 09. Patient presented again to the ER via EMS. Patient states he woke up in a panic short of breath. [place] scared. Patient also found to be in atrial flutter/tachycardia. Placed on IV amiodarone by cardiology. Still visibly short of breath. Has a cough. Wheezing. No sputum. Decreased appetite. To had his breakfast this morning. 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 Possible smoker. At [facility] Physical examination: VITAL SIGNS: 97.5, 115, 18, 140 x 72, 99% 3 L this morning GENERAL: BMI 23.6, sitting in bed, but short of breath EYES: Pupils equal. Conjunctiva jameson l. HEENT: External appearance of nose and ears normal, oral cavity grossly normal. Slight decrease in hearing NECK: JVD not raised; masses not palpable. HEART: First and second heart sounds are normal; no edema. LUNGS:[ Respiratory rate increased, diminished breath sounds on expiration some wheezing. ABDOMEN: Soft, nontender, liver spleen not palpable, no masses palpable. PSYCH: Alert and oriented x3; mood and affect slightly anxious l. MUSCULOSKELETAL:No Clubbing/cyanosis;muscles-grossly intact NEUROLOGICAL: Cranial nerves grossly intact; no facial asymmetry, power and sensation grossly intact. LYMPHATICS: No lymph nodes palpable in the axilla and neck. INVESTIGATIONS, reviewed in the clinical context: November 11, 2024: White count 7.2 hemoglobin 12.1 platelets 136 sodium 136 potassium 4.5 BUN 18 creatinine 0.94 Troponin I 0.048, 0.040, 0.036 proBNP 1220 EKG tracing personally reviewed by me-atrial flutter/tachycardia Chest x-ray film personally reviewed by me-cardiomegaly. Venous prominence nicotine Previous studies 2D echocardiogram: EF 15 to 20%. Global hypokinesia. Moderate mitral regurgitation. Assessment and Plan -Acute on chronic systolic heart failure exacerbation, secondary to ischemic systolic dysfunction EF 15 to 20%: IV Lasix 40 mg every 8. Strict I's and O's. Fluid restriction 1500 cc a day. Follow labs. -New onset atrial flutter/atrial tachycardia IV amiodarone. Cardiology following -Acute hypoxic respiratory failure combination of COPD exacerbation, pneumonia, CHF: I improved Patient was on BiPAP. Now down to 2-3 L. Incentive spirometry -Moderate mitral regurgitation -CAD status post CABG x 4 and stent placement x 2 Aspirin -Essential hypertension Lopressor-, Cozaar -Chronic nicotine dependence, cigarette smoker Patient states he goes out on his own to buy cigarettes -Chronic kidney disease stage 2 likely nephrosclerosis Follow renal function -Hyperlipidemia Lipitor -Hypothyroidism Levothyroxine 100 mcg daily. -COPD, with acute exacerbation: In a current smoker DuoNeb 4 times daily. Symbicort. IV Solu-Medrol 40 mg Q8 Solu-Medrol -Chronic hypoxic respiratory failure from underlying COPD Home oxygen, 2 L -Full code -Public guardian-Psychiatric Discussed with patient. Given the complexity and severity of patient's condition expect the patient to be in the hospital at least for 2 overnights Past Medical History Past Medical History: Coronary Artery Disease (CAD), Heart Failure, COPD, Dementia, Hyperlipidemia, Hypertension, Myocardial Infarction ([place]), Seizure Disorder, Syncope, Thyroid Disorder Additional Past Medical History / Comment(s): Ischemic cardiomyopathy, EF 20- 25%, last seizure about 2 yrs ago, hypothyroid.neuropathy "WHEN HE WORKED HE HAD A CRUSHING INJURY -COLLAPSED LUNGS C/T AND HAS CHRONIC BACK PAIN"" pt states he is schizophrenic/bipolar. TRIPLE A REPAIR AUG 2022 Last Myocardial Infarction Date:: unk History of Any Multi-Drug Resistant Organisms: None Reported Past Surgical History: AICD, Back Surgery, Coronary Bypass/CABG, Heart Catheterization, Heart Catheterization With Stent Additional Past Surgical History / Comment(s): 1995 CABG 4 vessel in [place], has had 2"HEART CATHS/had 2 STENTS after cabg sx.pt stated they were done in [facility]. "sx on tailbone, cortisone injections, devin inguinal hernia repair Past Anesthesia/Blood Transfusion Reactions: No Reported Reaction Date of Last Stent Placement:: 1995 Type of Cardiac Device: AICD Device Placement Date:: 1995 in [facility] Past Psychological History: Anxiety, Depression, Schizoaffective Disorder, Schizophrenia Smoking Status: Current every day smoker Past Alcohol Use History: None Reported Past Drug Use History: None Reported - Past Family History Mother Family Medical History: Respiratory Disorder Additional Family Medical History / Comment(s): Mother had TB Father Additional Family Medical History / Comment(s): Father was an alcoholic, was killed in a motor vehicle accident Medications and Allergies Home Medications Medication Instructions Recorded Confirmed Type Cyanocobalamin (Vitamin B-12) 1,000 mcg PO DAILY@0800 08/23/22 11/12/24 History [Vitamin B-12] Acetaminophen [Tylenol 8 Hour] 650 mg PO TID@0800,1400,199909/17/23 11/12/24 History Atorvastatin Calcium [Lipitor] 40 mg PO HS@199909/17/23 11/12/24 History Folic Acid 0.4 mg PO DAILY@0800 09/17/23 11/12/24 History Levothyroxine Sodium [Synthroid] 100 mcg PO DAILY@69909/17/23 11/12/24 History Mirtazapine 30 mg PO HS@199909/17/23 11/12/24 History Nitroglycerin Sl Tabs [Nitrostat] 0.4 mg SUBLINGUAL Q5M PRN 90 Days 09/21/23 11/12/24 Rx #100 tab Budesonide-Formot 160-4.5 Mcg 2 puff INHALATION RT-BID@0800,199910/16/23 11/12/24 History [Symbicort 160-4.5 Mcg Inhaler] Dapagliflozin Propanediol [Farxiga] 10 mg PO DAILY@79910/16/23 11/12/24 History Losartan [Cozaar] 25 mg PO DAILY@00 10/16/23 11/12/24 History Budesonide 0.5 mg INHALATION RT-BID@0900,1800 03/03/24 11/12/24 History HYDROcodone/APAP 5-325MG [Homer 1 tab PO Q6HR PRN #10 tab 04/10/24 11/12/24 Rx 5-325] Ipratropium-Albuterol Nebulize 3 ml INHALATION RT-QID 04/13/24 11/12/24 History [Duoneb 0.5 mg-3 mg/3 ml Soln] Melatonin 10 mg PO HS@199904/13/24 11/12/24 History Sennosides/Docusate Sodium 2 tab PO HS@199904/24/24 11/12/24 History [Senna-S 8.6-50 mg Tablet] Apixaban [Eliquis] 5 mg PO BID@0800,199910/24/24 11/12/24 History busPIRone HCl [Buspar] 10 mg PO BID@0800,199910/24/24 11/12/24 History Cetirizine HCl [Zyrtec] 10 mg PO HS@199911/08/24 11/12/24 History Diclofenac Sodium Gel [Voltaren 1% 4 gm TOPICAL QID@08,12,16,20 11/08/24 11/12/24 History Gel] Pantoprazole Sodium [Protonix] 20 mg PO AC-BID@08,199911/08/24 11/12/24 History Tiotropium 2.5 Mcg/Puff [Spiriva 2 puff INHALATION RT-DAILY@79911/08/24 11/12/24 History Respimat 2.5 Mcg] cilostazoL [Pletal] 100 mg PO BID@1000,199911/08/24 11/12/24 History Aspirin 81 mg PO DAILY@0800 11/12/24 11/12/24 History Isosorbide Mononitrate ER [Imdur] 30 mg PO DAILY@0811/12/24 11/12/24 History Metoprolol Tartrate [Lopressor] 12.5 mg PO BID@0800,199911/12/24 11/12/24 History Allergies Allergy/AdvReac Type Severity Reaction Status Date / Time morphine Allergy Anaphylaxis Verified 11/12/24 11:18 Penicillins Allergy Swelling Verified 11/12/24 11:31 on entire body Influenza Virus Vaccines AdvReac Unknown Verified 11/12/24 11:18 pneumococcal vaccine AdvReac Unknown Verified 11/12/24 11:18 Physical Exam Vitals: Vital Signs Temp Pulse Resp BP Pulse Ox 11/12/24 07:30 97.6 F 92 20 132/63 98 11/12/24 06:58 98 18 140/79 96 11/12/24 06:14 122 H 19 147/99 97 11/12/24 05:28 97.5 F L 115 H 18 140/72 99 11/12/24 01:52 104 H 18 133/75 98 11/12/24 01:42 104 H 11/12/24 01:15 80 11/11/24 23:38 97.5 F L 106 H 18 129/99 96 Intake and Output 11/11/24 11/12/24 11/12/24 22:59 06:59 14:59 Other: Weight 66.224 kg Results CBC & Chem 7: 11/11/24 00:35 11/11/24 00:35 Labs: Abnormal Lab Results - Last 24 Hours (Table) 11/11/24 11/11/24 11/11/24 Range/Units 00:35 00:35 00:35 Hgb 12.1 L (13.0-17.5) gm/dL MCHC 30.1 L (31.0-37.0) g/dL RDW 16.9 H (11.5-15.5) % Sodium 136 L (137-145) mmol/L Calcium 10.3 H (8.4-10.2) mg/dL Troponin I 0.048 H* (0.000-0.034) ng/mL 11/12/24 11/12/24 Range/Units 03:40 07:27 Hgb (13.0-17.5) gm/dL MCHC (31.0-37.0) g/dL RDW (11.5-15.5) % Sodium (137-145) mmol/L Calcium (8.4-10.2) mg/dL Troponin I 0.040 H* 0.036 H* (0.000-0.034) ng/mL
[2024-11-12] MEDS: AMIODARONE 450 MG in DEXTROSE 5% IN WATER 250 ML IV SCH (12:37)
[2024-11-12 12:41] LABS: Influenza A Not Detected (Not Detectd); Influenza B Not Detected (Not Detectd); RSV Not Detected (Not Detectd)
[2024-11-12] MEDS: NICOTINE 14MG/24HR PATCH TRANSDERM SCH (12:44)
[2024-11-12] MEDS: DICLOFENAC SODIUM GEL 100 GM TUBE TOPICAL SCH (13:15)
[2024-11-12] MEDS: methylPREDNISolone SOD SUCCI 40 MG/ML 1 ML VIAL IV SCH (13:15)
[2024-11-12] MEDS: HYDROcodone/APAP 5-325MG 1 EACH TAB PO PRN (15:05)
[2024-11-12] MEDS: ACETAMINOPHEN TAB 325 MG TAB PO SCH (15:07)
--- NOTE | 2024-11-12 16:46 | P.CNPUL ---
History of Present Illness Consult date: 11/12/24 Reason for consult: dyspnea History of present illness: Patient is a 74-year-old male with past medical history significant for coronary artery disease with CABG, ischemic cardiomyopathy with ejection fraction 15 to 20%, AICD, hypertension, hypothyroidism, COPD, seizure disorder, dementia. I believe the patient resides at an [facility] home. He has an AICD/pacemaker. Echocardiogram, October 2024 was also completed and the patient was found to have impaired ejection fraction of 20 to 25% along with severe hypokinesis of the LV, moderate severe mitral regurgitation was also noted. This patient presented to the emergency department after being discharged home on 11/09/2024. The patient presented again with worsening shortness of breath. The patient was having A- fib/flutter with secondary tachycardia. The patient was also having worsening shortness of breath. He has a chronic cough. He has chronic wheeze. No significant sputum production. The patient accordingly was brought into the hospital and he was found to be in CHF which was essentially secondary to A-fib RVR. The patient is currently on liters of oxygen by nasal cannula. The patient on amiodarone drip for rate control. He remains on 3 Suboxone by nasal cannula. He was started on diuretics and the patient is currently on Lasix 40 mg IV push every 8 hours. At the same time, the patient was started on bronchodilators with DuoNeb updrafts. The patient on Symbicort and Spiriva. The patient on IV Solu-Medrol 40 mg every 12 hours. IV fluids are currently at KVO. Blood work showed a white cell count 7.2, hemoglobin 12.1 and platelet count of 176. Normal coagulation profile. The viral screen was negative. Electrolytes are all within normal limits with a BUN of 18 and a creatinine of 0.9. Calcium is at 10.3. proBNP level is at 1220. LFTs are normal. A rousable, able to communicate. Free of any chest pain. The patient has COPD with an FEV1 of 59% of predicted. Review of Systems Constitutional: Reports daytime sleepiness, Reports fatigue, Reports weakness Eyes: denies as per HPI, denies blurred vision, denies bulging eye, denies decreased vision, denies diplopia, denies discharge, denies dry eye, denies irritation, denies itching, denies pain, denies photophobia, denies loss of peripheral vision, denies loss of vision, denies tunnel vision/blind spots Ears: deny: decreased hearing, ear discharge, earache, tinnitus Ears, nose, mouth and throat: Reports as per HPI Breasts: absent: as per HPI, gynecomastia Cardiovascular: Reports claudication, Reports decreased exercise tolerance, Reports dyspnea on exertion, Reports irregular heart beat, Reports orthopnea, Reports palpitations, Reports shortness of breath Respiratory: Reports cough, Reports dyspnea, Reports home oxygen, Reports wheezing Gastrointestinal: Reports as per HPI Genitourinary: Reports as per HPI Musculoskeletal: Reports as per HPI Musculoskeletal: absent: ankle pain, ankle stiffness, ankle swelling, as per HPI, elbow pain, elbow stiffness, elbow swelling, foot pain, foot stiffness, foot swelling, hand pain, hand stiffness, hand swelling, hip pain, hip stiffness, hip swelling, knee pain, knee stiffness, knee swelling, shoulder pain, shoulder stiffness, shoulder swelling, wrist pain, wrist stiffness, wrist swelling Integumentary: Reports as per HPI Neurological: Reports as per HPI Psychiatric: Reports as per HPI Endocrine: Reports as per HPI, Reports fatigue Hematologic/Lymphatic: Reports as per HPI Allergic/Immunologic: Reports as per HPI Past Medical History Past Medical History: Coronary Artery Disease (CAD), Heart Failure, COPD, Dementia, Hyperlipidemia, Hypertension, Myocardial Infarction ([place]), Seizure Disorder, Syncope, Thyroid Disorder Additional Past Medical History / Comment(s): Ischemic cardiomyopathy, EF 20- 25%, last seizure about 2 yrs ago, hypothyroid.neuropathy "WHEN HE WORKED HE HAD A CRUSHING INJURY -COLLAPSED LUNGS C/T AND HAS CHRONIC BACK PAIN"" pt states he is schizophrenic/bipolar. TRIPLE A REPAIR AUG 2022 Last Myocardial Infarction Date:: unk History of Any Multi-Drug Resistant Organisms: None Reported Past Surgical History: AICD, Back Surgery, Coronary Bypass/CABG, Heart Catheterization, Heart Catheterization With Stent Additional Past Surgical History / Comment(s): 1995 CABG 4 vessel in [place], has had 2"HEART CATHS/had 2 STENTS after cabg sx.pt stated they were done in [facility]. "sx on tailbone, cortisone injections, devin inguinal hernia repair Past Anesthesia/Blood Transfusion Reactions: No Reported Reaction Date of Last Stent Placement:: 1995 Type of Cardiac Device: AICD Device Placement Date:: 1995 in [facility] Past Psychological History: Anxiety, Depression, Schizoaffective Disorder, Schizophrenia Smoking Status: Current every day smoker Past Alcohol Use History: None Reported Past Drug Use History: None Reported - Past Family History Mother Family Medical History: Respiratory Disorder Additional Family Medical History / Comment(s): Mother had TB Father Additional Family Medical History / Comment(s): Father was an alcoholic, was killed in a motor vehicle accident Medications and Allergies Home Medications Medication Instructions Recorded Confirmed Type Cyanocobalamin (Vitamin B-12) 1,000 mcg PO DAILY@0800 08/23/22 11/12/24 History [Vitamin B-12] Acetaminophen [Tylenol 8 Hour] 650 mg PO TID@0800,1400,199909/17/23 11/12/24 History Atorvastatin Calcium [Lipitor] 40 mg PO HS@199909/17/23 11/12/24 History Folic Acid 0.4 mg PO DAILY@0800 09/17/23 11/12/24 History Levothyroxine Sodium [Synthroid] 100 mcg PO DAILY@0709/17/23 11/12/24 History Mirtazapine 30 mg PO HS@199909/17/23 11/12/24 History Nitroglycerin Sl Tabs [Nitrostat] 0.4 mg SUBLINGUAL Q5M PRN 90 Days 09/21/23 11/12/24 Rx #100 tab Budesonide-Formot 160-4.5 Mcg 2 puff INHALATION RT-BID@0800,199910/16/23 11/12/24 History [Symbicort 160-4.5 Mcg Inhaler] Dapagliflozin Propanediol [Farxiga] 10 mg PO DAILY@79910/16/23 11/12/24 History Losartan [Cozaar] 25 mg PO DAILY@0800 10/16/23 11/12/24 History Budesonide 0.5 mg INHALATION RT-BID@0900,1800 03/03/24 11/12/24 History HYDROcodone/APAP 5-325MG [Callender 1 tab PO Q6HR PRN #10 tab 04/10/24 11/12/24 Rx 5-325] Ipratropium-Albuterol Nebulize 3 ml INHALATION RT-QID 04/13/24 11/12/24 History [Duoneb 0.5 mg-3 mg/3 ml Soln] Melatonin 10 mg PO HS@199904/13/24 11/12/24 History Sennosides/Docusate Sodium 2 tab PO HS@199904/24/24 11/12/24 History [Senna-S 8.6-50 mg Tablet] Apixaban [Eliquis] 5 mg PO BID@0800,199910/24/24 11/12/24 History busPIRone HCl [Buspar] 10 mg PO BID@0800,199910/24/24 11/12/24 History Cetirizine HCl [Zyrtec] 10 mg PO HS@199911/08/24 11/12/24 History Diclofenac Sodium Gel [Voltaren 1% 4 gm TOPICAL QID@08,12,16,11/08/24 11/12/24 History Gel] Pantoprazole Sodium [Protonix] 20 mg PO AC-BID@0800,199911/08/24 11/12/24 History Tiotropium 2.5 Mcg/Puff [Spiriva 2 puff INHALATION RT-DAILY@0811/08/24 11/12/24 History Respimat 2.5 Mcg] cilostazoL [Pletal] 100 mg PO BID@1000,199911/08/24 11/12/24 History Aspirin 81 mg PO DAILY@0800 11/12/24 11/12/24 History Isosorbide Mononitrate ER [Imdur] 30 mg PO DAILY@0800 11/12/24 11/12/24 History Metoprolol Tartrate [Lopressor] 12.5 mg PO BID@0800,199911/12/24 11/12/24 History Allergies Allergy/AdvReac Type Severity Reaction Status Date / Time morphine Allergy Anaphylaxis Verified 11/12/24 11:18 Penicillins Allergy Swelling Verified 11/12/24 11:31 on entire body Influenza Virus Vaccines AdvReac Unknown Verified 11/12/24 11:18 pneumococcal vaccine AdvReac Unknown Verified 11/12/24 11:18 Physical Exam Vitals: Vital Signs Temp Pulse Resp BP Pulse Ox 11/12/24 07:30 97.6 F 92 20 132/63 98 11/12/24 06:58 98 18 140/79 96 11/12/24 06:14 122 H 19 147/99 97 11/12/24 05:28 97.5 F L 115 H 18 140/72 99 11/12/24 01:52 104 H 18 133/75 98 11/12/24 01:42 104 H 11/12/24 01:15 80 11/11/24 23:38 97.5 F L 106 H 18 129/99 96 Intake and Output 11/11/24 11/12/24 11/12/24 22:59 06:59 14:59 Other: Weight 66.224 kg GENERAL EXAM: Lethargic, 74-year-old male, awake and alert and currently on 3 liters of oxygen by nasal cannula HEAD: Normocephalic and atraumatic EYES: Normal reaction of pupils, equal size. NOSE: Clear with pink turbinates. THROAT: No erythema or exudates. NECK: No masses, no JVD. CHEST: No chest wall deformity. LUNGS: Equal air entry with no crackles, wheeze, rhonchi or dullness. Breathing is nonlabored. CVS: S1 and S2 normal with COLLINS grade 3/6 murmur, irregular rhythm. No extra heart sounds ABDOMEN: No hepatosplenomegaly, active bowel sounds, no guarding or rigidity. SPINE: No scoliosis or deformity SKIN: No rashes CENTRAL NERVOUS SYSTEM: No focal deficits, tone is normal in all 4 extremities. He is lethargic and wwak EXTREMITIES: There is no peripheral edema, clubbing, or cyanosis. Peripheral pulses are intact. Results - Laboratory Findings CBC and BMP: 11/11/24 00:35 11/11/24 00:35 PT/INR, D-dimer PT 10.9 sec (10.0-12.5) 11/11/24 00:35 INR 1.0 (<1.2) 11/11/24 00:35 Abnormal lab findings: Abnormal Labs 11/11/24 11/11/24 11/11/24 00:35 00:35 00:35 Hgb 12.1 L MCHC 30.1 L RDW 16.9 H Sodium 136 L Calcium 10.3 H Troponin I 0.048 H* 11/12/24 03:40 Hgb MCHC RDW Sodium Calcium Troponin I 0.040 H* - Diagnostic Findings Chest x-ray: image reviewed Assessment and Plan Plan: Acute exacerbation of systolic congestive heart failure secondary to Afib/RVR, improving COPD with an FEV1 of 69% of predicted per minute nasal cannula Acute hypoxemic and hypercapnic respiratory failure, currently on 3 liters Elevated trop x3 , demand ischemia and no chest pain, Trop max 0.36 History of CAD with previous CABG and subsequent cardiac stents Ischemic cardiomyopathy with an ejection fraction of 15 to 20% and moderate MR, status post AICD. Echocardiogram shows moderate severe mitral regurgitation and ejection fraction of around 20 to 25%, 10/25/24 atrial fibrillation with RVR and he is on amiodarone drip, current the rate is controled and the patient has been maintained on anticoagulation with Eliquis on outpatient basis. Hypertension History of hyperlipidemia History of AAA with repair Chronic kidney disease stage IIIa, recovered the renal function was normal History of hypothyroidism History of left inguinal hernia with repair History of dementia History of seizure [facility] resident, [place] Plan: Patient is currently off the BiPAP and transition to 3 L of oxygen nasal cannula Continue amiodarone drip per protocol and cardiology on the case. The patient remains in atrial fibrillation. Rate is under better control for now. Remains on amiodarone 0.5 mg/min, remains on metoprolol 12.5 mg p.o. twice daily and anticoagulation with Eliquis. 02 at 3 liters Continue IV Lasix 40 mg every 8 hours, negative fluid balance Monitor renal function electrolytes Continue losartan, Farxiga Continue bronchodilators, the patient is currently on a combination of Symbicort and Spiriva IV Solu-Medrol Check viral 4 Plex We will continue to follow Time with Patient: Greater than 30
[2024-11-12] MEDS: MELATONIN 5 MG TABLET PO SCH (21:32)
[2024-11-12] MEDS: ATORVASTATIN 40 MG TAB PO SCH (21:33)
[2024-11-12] MEDS: PANTOPRAZOLE 40 MG TABLET PO SCH (21:33)
[2024-11-12] MEDS: SENNOSIDES-DOCUSATE SODIUM 1 EACH TAB PO SCH (21:34)
[2024-11-12] MEDS: MIRTAZAPINE 15 MG TAB PO SCH (21:35)
[2024-11-13 06:22] LABS: Anisocytosis Slight; Basophils % (A) 0 %; Eosinophils % (A) 0 %; HCT 35.8 % (39.0-53.0); HGB 10.6 gm/dL (13.0-17.5); Hypochromasia Moderate; Lymphocytes # (A) 0.6 k/uL (1.0-4.8); Lymphocytes % (A) 6 %; MCH 26.3 pg (25.0-35.0); MCHC 29.7 g/dL (31.0-37.0); MCV 88.6 fL (80.0-100.0); Mean Platelet Volume 7.6; Monocytes # (A) 0.3 k/uL (0-1.0); Monocytes % (A) 3 %; Neutrophils # (A) 9.5 k/uL (1.3-7.7); Neutrophils % (A) 90 %; Platelet Count 187 k/uL (150-450); RBC 4.04 m/uL (4.30-5.90); RDW 16.9 % (11.5-15.5); WBC 10.6 k/uL (3.8-10.6)
[2024-11-13 06:33] LABS: ALT 23 U/L (4-49); AST 26 U/L (17-59); African American GFR (CKD) 55 (>60 ml/min/1.73 sqM); Albumin 3.8 g/dL (3.5-5.0); Alkaline Phosphatase 51 U/L (38-126); Anion Gap 6 mmol/L; Blood Urea Nitrogen 35 mg/dL (9-20); Calcium 8.7 mg/dL (8.4-10.2); Carbon Dioxide 30 mmol/L (22-30); Chloride 97 mmol/L (98-107); Glucose 142 mg/dL (74-99); Non-African American GFR(CKD) 47 (>60 ml/min/1.73 sqM); Sodium 133 mmol/L (137-145); Total Bilirubin 0.6 mg/dL (0.2-1.3); Total Protein 6.3 g/dL (6.3-8.2)
--- NOTE | 2024-11-13 07:57 | P.CRDCN ---
History of Present Illness Consult date: 11/12/24 History of present illness: HISTORY OF PRESENTING ILLNESS: 74-year-old male with past medical history of CAD status post CABG, ischemic cardiomyopathy with a EF of 15 to 20%, AICD, hypertension dyslipidemia hypothyroidism, COPD, seizure disorder and dementia. He presented to ER after recent discharge on 11/09/2024. He presented because of increased worsening shortness of breath. On admission he was also noticed to be in atrial fibrillation with RVR with mild congestive heart failure exacerbation. Admission Vitals: [ ] Admission Labs: [ ] Admission EKG: [ ] Imaging: Echo from October shows an EF of 20 to 25%, severe hypokinetic inferior apical wall, mild pulm hypertension, moderate to severe mitral regurgitation, moderate tricuspid regurgitation. Heart cath from 09/2023 shows 100% proximal LAD, 70% proximal LCx, 100% RCA stenosis, occluded SVG to PDA, patent FIORE to LAD, SVG to diagonal with 95% stenosis, status post PCI of SVG to diagonal. Prior cardiac testing: [ ] REVIEW OF SYSTEMS: 14 point review of system is negative except what is mentioned above in HPI. PHYSICAL EXAMINATION: Neck: Brisk carotid upstroke, mildly elevated jugular venous distention. Lungs: Crackles and wheezing audible about her lung palomo Heart: Irregularly irregular pulse, systolic murmur audible, Abdomen: Soft nontender, positive bowel sounds. Extremities: 1-2+ pitting edema bilateral extremity Neuro: Alert, oritented, no focal deficits. Detailed neuro exam was not performed. ASSESSMENT: # Atrial fibrillation with RVR on admission. Prior history of paroxysmal atrial fibrillation and typical atrial flutter # Mild acute on chronic HFrEF exacerbation # CAD status post CABG 1995 status post PCI to SVG to diagonal 2023 # Ischemic cardiomyopathy with a EF of 20 to 25%. NYHA class III # History of primary prevention AICD # History of AAA repair # Seizure disorder # Moderate to severe mitral regurgitation # Mild pulm hypertension # Essential hypertension, dyslipidemia # PAD PLAN: Eliquis 5 mg twice daily, aspirin 81 mg daily, Lipitor 40 mg daily Discontinue amiodarone drip Lasix 40 mg every 8 hours, losartan 25 g daily, metoprolol 12.5 mg twice daily, Continue to monitor, further recommendations to follow Prognosis guarded Vincent Madden MD, FACC, RPVI Thank you for allowing [facility] to participate in this patient's care. Feel free to reach out in case of any followup questions. Past Medical History Past Medical History: Coronary Artery Disease (CAD), Heart Failure, COPD, Demen tia, Hyperlipidemia, Hypertension, Myocardial Infarction (MO), Seizure Disorder, Syncope, Thyroid Disorder Additional Past Medical History / Comment(s): Ischemic cardiomyopathy, EF 20- 25%, last seizure about 2 yrs ago, hypothyroid.neuropathy "WHEN HE WORKED HE HAD A CRUSHING INJURY -COLLAPSED LUNGS C/T AND HAS CHRONIC BACK PAIN"" pt states he is schizophrenic/bipolar. TRIPLE A REPAIR AUG 2022 Last Myocardial Infarction Date:: unk History of Any Multi-Drug Resistant Organisms: None Reported Past Surgical History: AICD, Back Surgery, Coronary Bypass/CABG, Heart Catheterization, Heart Catheterization With Stent Additional Past Surgical History / Comment(s): 1995 CABG 4 vessel in [place], has had 2"HEART CATHS/had 2 STENTS after cabg sx.pt stated they were done in [facility]. "sx on tailbone, cortisone injections, devin inguinal hernia repair Past Anesthesia/Blood Transfusion Reactions: No Reported Reaction Date of Last Stent Placement:: 1995 Type of Cardiac Device: AICD Device Placement Date:: 1995 in [facility] Past Psychological History: Anxiety, Depression, Schizoaffective Disorder, Schizophrenia Smoking Status: Current every day smoker Past Alcohol Use History: None Reported Past Drug Use History: None Reported - Past Family History Mother Family Medical History: Respiratory Disorder Additional Family Medical History / Comment(s): Mother had TB Father Additional Family Medical History / Comment(s): Father was an alcoholic, was killed in a motor vehicle accident Medications and Allergies Home Medications Medication Instructions Recorded Confirmed Type Cyanocobalamin (Vitamin B-12) 1,000 mcg PO DAILY@0800 08/23/22 11/12/24 History [Vitamin B-12] Acetaminophen [Tylenol 8 Hour] 650 mg PO TID@0800,1400,199909/17/23 11/12/24 History Atorvastatin Calcium [Lipitor] 40 mg PO HS@199909/17/23 11/12/24 History Folic Acid 0.4 mg PO DAILY@0800 09/17/23 11/12/24 History Levothyroxine Sodium [Synthroid] 100 mcg PO DAILY@0700 09/17/2325 History Mirtazapine 30 mg PO HS@199909/17/23 11/12/24 History Nitroglycerin Sl Tabs [Nitrostat] 0.4 mg SUBLINGUAL Q5M PRN 90 Days 09/21/23 11/12/24 Rx #100 tab Budesonide-Formot 160-4.5 Mcg 2 puff INHALATION RT-BID@799,199910/16/23 11/12/24 History [Symbicort 160-4.5 Mcg Inhaler] Dapagliflozin Propanediol [Farxiga] 10 mg PO DAILY@79910/16/23 11/12/24 History Losartan [Cozaar] 25 mg PO DAILY@79910/16/23 11/12/24 History Budesonide 0.5 mg INHALATION RT-BID@0900,179903/03/24 11/12/24 History HYDROcodone/APAP 5-325MG [[place] 1 tab PO Q6HR PRN #10 tab 04/10/24 11/12/24 Rx 5-325] Ipratropium-Albuterol Nebulize 3 ml INHALATION RT-QID 04/13/24 11/12/24 History [Duoneb 0.5 mg-3 mg/3 ml Soln] Melatonin 10 mg PO HS@199904/13/24 11/12/24 History Sennosides/Docusate Sodium 2 tab PO HS@199904/24/24 11/12/24 History [Senna-S 8.6-50 mg Tablet] Apixaban [Eliquis] 5 mg PO BID@08,199910/24/24 11/12/24 History busPIRone HCl [Buspar] 10 mg PO BID@0800,199910/24/24 11/12/24 History Cetirizine HCl [Zyrtec] 10 mg PO HS@199911/08/24 11/12/24 History Diclofenac Sodium Gel [Voltaren 1% 4 gm TOPICAL QID@08,12,16,20 11/08/24 11/12/24 History Gel] Pantoprazole Sodium [Protonix] 20 mg PO AC-BID@0800,199911/08/24 11/12/24 History Tiotropium 2.5 Mcg/Puff [Spiriva 2 puff INHALATION RT-DAILY@0800 03/27/25 03/31/25 History Respimat 2.5 Mcg] cilostazoL [Pletal] 100 mg PO BID@11/08/24 11/12/24 History Aspirin 81 mg PO DAILY@0811/12/24 11/12/24 History Isosorbide Mononitrate ER [Imdur] 30 mg PO DAILY@0811/12/24 11/12/24 History Metoprolol Tartrate [Lopressor] 12.5 mg PO BID@08,199911/12/24 11/12/24 History Allergies Allergy/AdvReac Type Severity Reaction Status Date / Time morphine Allergy Anaphylaxis Verified 11/12/24 11:18 Penicillins Allergy Swelling Verified 11/12/24 11:31 on entire body Influenza Virus Vaccines AdvReac Unknown Verified 11/12/24 11:18 pneumococcal vaccine AdvReac Unknown Verified 11/12/24 11:18 Physical Exam Vitals: Vital Signs Temp Pulse Resp BP Pulse Ox 11/13/24 07:44 94 L 11/13/24 04:00 68 16 116/76 96 11/13/24 00:00 73 20 107/63 97 11/12/24 20:08 71 11/12/24 20:00 70 14 115/79 100 11/12/24 19:57 70 11/12/24 19:35 66 17 107/68 100 11/12/24 18:00 69 22 108/68 98 11/12/24 16:08 76 11/12/24 16:00 77 17 108/74 99 11/12/24 15:51 74 11/12/24 14:00 73 17 118/83 99 11/12/24 13:27 97.7 F 84 20 118/83 98 11/12/24 13:00 68 22 134/89 96 11/12/24 12:35 80 11/12/24 12:28 98 11/12/24 12:24 77 11/12/24 11:00 97.4 F L 89 21 108/78 97 11/12/24 09:00 82 22 142/71 100 Intake and Output 11/12/24 11/13/24 11/13/24 22:59 06:59 14:59 Intake Total 480 490 Output Total 550 Balance -70 490 Intake: Intake, IV Titration 250 Amount Amiodarone 450 mg In 250 Dextrose 5% in Water 250 ml @ 0.5 MG/MIN 16.667 mls/hr IV .Q15H [facility] Rx#: [id number] Oral 480 Tube Feeding 240 Output: Urine 550 Results 11/13/24 06:04 11/13/24 06:04 Cardiac Enzymes 11/12/24 11/13/24 Range/Units 07:27 06:04 AST 26 (17-59) U/L Troponin I 0.036 H* (0.000-0.034) ng/mL CBC 11/13/24 Range/Units 06:04 WBC 10.6 (3.8-10.6) k/uL RBC 4.04 L (4.30-5.90) m/uL Hgb 10.6 L (13.0-17.5) gm/dL Hct 35.8 L (39.0-53.0) % Plt Count 187 (150-450) k/uL Comprehensive Metabolic Panel 11/13/24 Range/Units 06:04 Sodium 133 L (137-145) mmol/L Potassium 4.0 (3.5-5.1) mmol/L Chloride 97 L (98-107) mmol/L Carbon Dioxide 30 (22-30) mmol/L BUN 35 H (9-20) mg/dL Creatinine 1.45 H (0.66-1.25) mg/dL Glucose 142 H (74-99) mg/dL Calcium 8.7 (8.4-10.2) mg/dL AST 26 (17-59) U/L ALT 23 (4-49) U/L Alkaline Phosphatase 51 (38-126) U/L Total Protein 6.3 (6.3-8.2) g/dL Albumin 3.8 (3.5-5.0) g/dL Current Medications Generic Name Dose Route Start Last Admin Trade Name Freq PRN Reason Stop Dose Admin Acetaminophen 650 mg 11/12/24 14:00 11/12/24 21:35 Acetaminophen Tab 325 Mg Tab PO 650 mg TID@0800,1400,2000 RADHA Administration Hydrocodone Bitart/Acetaminophen 1 each 11/12/24 10:31 11/12/24 21:55 Hydrocodone/Apap 5-325mg 1 Each Tab PO 1 each Q6HR PRN Administration Pain Albuterol/Ipratropium 3 ml 11/12/24 10:31 11/13/24 07:40 Ipratropium-Albuterol 3 Ml Neb INHALATION Not Given RT-QID [facility] Apixaban 5 mg 11/12/24 09:00 11/12/24 21:34 Apixaban 5 Mg Tab PO 5 mg BID RADHA Administration Protocol Aspirin 81 mg 11/12/24 10:45 11/12/24 11:47 Aspirin 81 Mg PO 81 mg DAILY RADHA Administration Atorvastatin Calcium 40 mg 11/12/24 20:00 11/12/24 21:33 Atorvastatin 40 Mg Tab PO 40 mg HS@1999 [facility] Administration Budesonide 0.5 mg 11/12/24 10:33 11/13/24 07:41 Budesonide 0.5 Mg/2 Ml Nebu INHALATION Not Given RT-BID@0900,1800 [facility] Budesonide/Formoterol Fumarate 2 puff 11/12/24 10:33 11/13/24 07:40 Symbicort 160-4.5 Mcg Inhaler INHALATION 2 puff RT-BID@08 [facility] Administration Buspirone HCl 10 mg 11/12/24 10:33 11/12/24 21:34 Buspirone Hcl 10 Mg Tab PO 10 mg BID@08 [facility] Administration Cyanocobalamin 1,000 mcg 11/13/24 08:00 Cyanocobalamin 500 Mcg Tab PO DAILY@0800 [facility] Dapagliflozin 10 mg 11/13/24 08:00 Dapagliflozin Propanediol 10 Mg Tablet PO DAILY@0800 [facility] Diclofenac Sodium 4 gm 11/12/24 13:00 11/12/24 22:12 Diclofenac Sodium Gel 100 Gm Tube TOPICAL 4 gm QID [facility] Administration Protocol Furosemide 40 mg 11/12/24 14:30 11/13/24 05:34 Furosemide 10 Mg/Ml 4 Ml Vial IV 40 mg Q8H [facility] Administration Sodium Chloride 1,000 mls @ 20 mls/hr 11/12/24 00:30 11/13/24 02:55 Saline 0.9% IV 20 mls/hr .Q24H [facility] Administration Isosorbide Mononitrate 30 mg 11/12/24 10:45 11/12/24 11:51 Isosorbide Mononitrate Er 30 Mg Tab.Er.24h PO 30 mg DAILY [facility] Administration Levothyroxine Sodium 100 mcg 11/12/24 07:00 11/12/24 10:52 Levothyroxine 100 Mcg Tab PO Not Given DAILY@07 [facility] Losartan Potassium 25 mg 11/13/24 08:00 Losartan 25 Mg Tab PO DAILY@0800 [facility] Melatonin 10 mg 11/12/24 20:00 11/12/24 21:32 Melatonin 5 Mg Tablet PO 10 mg HS@1999 [facility] Administration Methylprednisolone Sodium Succinate 40 mg 11/12/24 12:31 11/13/24 05:31 Methylprednisolone Sod Succi 40 Mg/Ml 1 Ml Vial IV 40 mg Q8H [facility] Administration Metoprolol Tartrate 12.5 mg 11/12/24 09:00 11/12/24 21:32 Metoprolol Tartrate 12.5 Mg Tab PO 12.5 mg BID [facility] Administration Mirtazapine 30 mg 11/12/24 20:00 11/12/24 21:35 Mirtazapine 15 Mg Tab PO 30 mg HS@1999 [facility] Administration Naloxone HCl 0.2 mg 11/12/24 00:17 Naloxone 0.4 Mg/Ml 1 Ml Vial IVP Q2M PRN Opioid Reversal Nicotine 1 patch 11/12/24 12:30 11/12/24 12:44 Nicotine 14mg/24hr Patch TRANSDERM Not Given DAILY [facility] Nitroglycerin 1 inch 11/13/24 09:00 Nitroglycerin Oint 1 Inch/Gm Packet TOPICAL QID [facility] Nitroglycerin 0.4 mg 11/12/24 10:31 Nitroglycerin Sl Tabs 0.4 Mg Tab SUBLINGUAL Q5M PRN Chest Pain Ondansetron HCl 4 mg 11/12/24 00:17 Ondansetron 4 Mg/2 Ml Vial IVP Q8HR PRN Nausea And Vomiting Pantoprazole Sodium 40 mg 11/12/24 20:00 11/12/24 21:33 Pantoprazole 40 Mg Tablet PO 40 mg AC-BID@ [facility] Administration Senna/Docusate Sodium 2 each 11/12/24 20:00 11/12/24 21:34 Sennosides-Docusate Sodium 1 Each Tab PO 2 each HS@1999 [facility] Administration Tiotropium [place] 2 puff 11/12/24 08:00 11/13/24 07:40 Tiotropium 2.5 Mcg Inhaler INHALATION 2 puff RT-DAILY [facility] Administration Intake and Output 11/12/24 11/13/24 11/13/24 22:59 06:59 14:59 Intake Total 480 490 Output Total 550 Balance -70 490 Intake: Intake, IV Titration 250 Amount Amiodarone 450 mg In 250 Dextrose 5% in Water 250 ml @ 0.5 MG/MIN 16.667 mls/hr IV .Q15H [facility] Rx#: [id number] Oral 480 Tube Feeding 240 Output: Urine 550 11/13/24 06:04 11/13/24 06:04
[2024-11-13] MEDS: CYANOCOBALAMIN 500 MCG TAB PO SCH (08:16)
[2024-11-13] MEDS: DAPAGLIFLOZIN PROPANEDIOL 10 MG TABLET PO SCH (08:17)
[2024-11-13] MEDS: LOSARTAN 25 MG TAB PO SCH (08:21)
[2024-11-13] MEDS: NITROGLYCERIN OINT 1 INCH/GM PACKET TOPICAL SCH (08:23)
--- NOTE | 2024-11-13 10:57 | P.PN ---
Subjective Progress Note Date: 11/13/24 HISTORY OF PRESENTING ILLNESS: 74-year-old male with past medical history of CAD status post CABG, ischemic cardiomyopathy with a EF of 15 to 20%, AICD, hypertension dyslipidemia hypothyroidism, COPD, seizure disorder and dementia. He presented to ER after recent discharge on 11/09/2024. He presented because of increased worsening shortness of breath. On admission he was also noticed to be in atrial fibrillation with RVR with mild congestive heart failure exacerbation. On admission he also reported symptoms of headache. His last hospital admission was because of chronic lower back pain for which she was recommended to follow-up with an outpatient pain clinic. During last hospital admission he was optimized from cardiovascular standpoint. He was started on Imdur which I feel could be contributing to his headaches for this admission. His chest x-ray shows mild pulmonary congestion however no signs of obvious consolidation congestion or pleural effusion. Cardiology testing Echo from October shows an EF of 20 to 25%, severe hypokinetic inferior apical wall, mild pulm hypertension, moderate to severe mitral regurgitation, moderate tricuspid regurgitation. Heart cath from 09/2023 shows 100% proximal LAD, 70% proximal LCx, 100% RCA stenosis, occluded SVG to PDA, patent FIORE to LAD, SVG to diagonal with 95% stenosis, status post PCI of SVG to diagonal. 11/13/2024 On today's visit patient is doing well. He denies any shortness of breath headache chest pressure. He appears euvolemic. His telemetry shows rate controlled atrial fibrillation with heart rate around 70 bpm. SBP around 100 to 110 mmHg. REVIEW OF SYSTEMS: 14 point review of system is negative except what is mentioned above in HPI. PHYSICAL EXAMINATION: Neck: Brisk carotid upstroke, no significant jugular venous distention. Lungs: Crackles and wheezing audible about her lung palomo Heart: Irregularly irregular pulse, systolic murmur audible, Abdomen: Soft nontender, positive bowel sounds. Extremities: No significant pitting edema bilateral extremity Neuro: Alert, oritented, no focal deficits. Detailed neuro exam was not performed. ASSESSMENT: # Atrial flutter with RVR on admission, currently rate controlled. # Prior history of paroxysmal atrial fibrillation and typical atrial flutter # Mild acute on chronic HFrEF exacerbation # Ischemic cardiomyopathy with a EF of 20 to 25%. NYHA class III # CAD status post CABG 1995 status post PCI to SVG to diagonal 2023 # History of primary prevention AICD # History of AAA repair # Seizure disorder # Moderate to severe mitral regurgitation # Mild pulm hypertension # Essential hypertension, dyslipidemia # PAD PLAN: Eliquis 5 mg twice daily, aspirin 81 mg daily, Lipitor 40 mg daily He appears euvolemic and his kidney function has worsened a bit. I would increase his metoprolol to 25 mg twice daily. Discontinue losartan instead start Entresto 24/26 mg twice daily Discontinue Lasix and instead start torsemide 20 mg daily, Farxiga 10 mg daily, Aldactone 12.5 mg daily His last hospital admission was because of chronic back pain. His current hospital admission was because of shortness of breath and headache. On last discharge he was started on Imdur which could be contributing to his headache which I will discontinue. At this time I offered him atrial flutter ablation however patient is not interested in it at this time. I gave him the risks and benefit of the procedure. Monitor kidney function, heart rate and hemodynamics. Anticipate discharge tomorrow a.m. Objective - Vital Signs Vital signs: Vital Signs Temp 97.7 F 11/12/24 13:27 Pulse 69 11/13/24 09:00 Resp 18 11/13/24 09:00 BP 97/61 11/13/24 09:57 Pulse Ox 95 11/13/24 09:00 FiO2 Intake & Output 11/12/24 11/13/24 11/13/24 18:59 06:59 18:59 Intake Total 970 Output Total 550 700 Balance 420 -700 Intake: Intake, IV Titration 250 Amount Amiodarone 450 mg In 250 Dextrose 5% in Water 250 ml @ 0.5 MG/MIN 16.667 mls/hr IV .Q15H [facility] Rx#: [id number] Oral 480 Tube Feeding 240 Output: Urine 550 700 - Labs CBC & Chem 7: 11/13/24 06:04 11/13/24 06:04 Labs: Abnormal Lab Results - Last 24 Hours (Table) 11/13/24 11/13/24 Range/Units 06:04 06:04 RBC 4.04 L (4.30-5.90) m/uL Hgb 10.6 L (13.0-17.5) gm/dL Hct 35.8 L (39.0-53.0) % MCHC 29.7 L (31.0-37.0) g/dL RDW 16.9 H (11.5-15.5) % Neutrophils # 9.5 H (1.3-7.7) k/uL Lymphocytes # 0.6 L (1.0-4.8) k/uL Sodium 133 L (137-145) mmol/L Chloride 97 L (98-107) mmol/L BUN 35 H (9-20) mg/dL Creatinine 1.45 H (0.66-1.25) mg/dL Glucose 142 H (74-99) mg/dL Phosphorus 5.0 H (2.5-4.5) mg/dL
--- NOTE | 2024-11-13 15:38 | P.PN ---
Subjective Progress Note Date: 11/13/24 Patient is a 74-year-old male with past medical history significant for coronary artery disease with CABG, ischemic cardiomyopathy with ejection fraction 15 to 20%, AICD, hypertension, hypothyroidism, COPD, seizure disorder, dementia. I believe the patient resides at an [facility] home. He has an AICD/pacemaker. Echocardiogram, October 2024 was also completed and the patient was found to have impaired ejection fraction of 20 to 25% along with severe hypokinesis of the LV, moderate severe mitral regurgitation was also noted. This patient presented to the emergency department after being discharged home on 11/09/2024. The patient presented again with worsening shortness of breath. The patient was having A- fib/flutter with secondary tachycardia. The patient was also having worsening shortness of breath. He has a chronic cough. He has chronic wheeze. No significant sputum production. The patient accordingly was brought into the hospital and he was found to be in CHF which was essentially secondary to A-fib RVR. The patient is currently on liters of oxygen by nasal cannula. The patient on amiodarone drip for rate control. He remains on 3 Suboxone by nasal cannula. He was started on diuretics and the patient is currently on Lasix 40 mg IV push every 8 hours. At the same time, the patient was started on bronchodilators with Italo vizcarra. The patient on Symbicort and Spiriva. T he patient on IV Solu-Medrol 40 mg every 12 hours. IV fluids are currently at KVO. Blood work showed a white cell count 7.2, hemoglobin 12.1 and platelet count of 176. Normal coagulation profile. The viral screen was negative. Electrolytes are all within normal limits with a BUN of 18 and a creatinine of 0.9. Calcium is at 10.3. proBNP level is at 1220. LFTs are normal. Arousable, able to communicate. Free of any chest pain. The patient has COPD with an FEV1 of 59% of predicted. On today's evaluation of 11/13/2024, the patient is feeling less short of breath compared to yesterday. No new complaints otherwise for now. Resting comfortably in bed. He has no chest pain. He remains in atrial fibrillation and rate is under much better control for now. The patient is still on anti coagulation with Eliquis. The patient was taken off the IV Lasix and the patient was started on torsemide 20 mg p.o. daily. The patient is also on a combination of Farxiga and Aldactone and metoprolol 25 mg p.o. twice a day and losartan was discontinued the patient was started on Entresto 1 tablet twice a day. His blood work showed a white cell count of 10.6 with a hemoglobin 10.6 and a platelet count of 187. BUN 35 with a creatinine 1.4 and a sodium levels at 133. He does have a component of an acute kidney injury based on today's blood work. The white cell count is at 4. Objective - Vital Signs Vital signs: Vital Signs Temp 97.7 F 11/12/24 13:27 Pulse 69 11/13/24 09:00 Resp 18 11/13/24 09:00 BP 97/61 11/13/24 09:57 Pulse Ox 95 11/13/24 09:00 FiO2 Intake & Output 11/12/24 11/13/24 11/13/24 18:59 06:59 18:59 Intake Total 970 Output Total 550 700 Balance 420 -700 Intake: Intake, IV Titration 250 Amount Amiodarone 450 mg In 250 Dextrose 5% in Water 250 ml @ 0.5 MG/MIN 16.667 mls/hr IV .Q15H PENDING SALE TO [facility] Rx#: [id number] Oral 480 Tube Feeding 240 Output: Urine 550 700 - Exam GENERAL EXAM: Lethargic, 74-year-old male, awake and alert and currently on 3 l iters of oxygen by nasal cannula HEAD: Normocephalic and atraumatic EYES: Normal reaction of pupils, equal size. NOSE: Clear with pink turbinates. THROAT: No erythema or exudates. NECK: No masses, no JVD. CHEST: No chest wall deformity. LUNGS: Equal air entry with no crackles, wheeze, rhonchi or dullness. Breathing is nonlabored. CVS: S1 and S2 normal with COLLINS grade 3/6 murmur, irregular rhythm. No extra heart sounds ABDOMEN: No hepatosplenomegaly, active bowel sounds, no guarding or rigidity. SPINE: No scoliosis or deformity SKIN: No rashes CENTRAL NERVOUS SYSTEM: No focal deficits, tone is normal in all 4 extremities. He is lethargic and wwak EXTREMITIES: There is no peripheral edema, clubbing, or cyanosis. Peripheral pulses are intact. - Labs CBC & Chem 7: 11/13/24 06:04 11/13/24 06:04 Labs: Abnormal Lab Results - Last 24 Hours (Table) 11/13/24 11/13/24 Range/Units 06:04 06:04 RBC 4.04 L (4.30-5.90) m/uL Hgb 10.6 L (13.0-17.5) gm/dL Hct 35.8 L (39.0-53.0) % MCHC 29.7 L (31.0-37.0) g/dL RDW 16.9 H (11.5-15.5) % Neutrophils # 9.5 H (1.3-7.7) k/uL Lymphocytes # 0.6 L (1.0-4.8) k/uL Sodium 133 L (137-145) mmol/L Chloride 97 L (98-107) mmol/L BUN 35 H (9-20) mg/dL Creatinine 1.45 H (0.66-1.25) mg/dL Glucose 142 H (74-99) mg/dL Phosphorus 5.0 H (2.5-4.5) mg/dL Assessment and Plan Plan: Acute exacerbation of systolic congestive heart failure secondary to Afib/RVR, improving, the patient remains atrial fibrillation the rate is under better control for now. CHF is being further optimized and the patient seems to be less short of breath compared to yesterday. COPD with an FEV1 of 69% of predicted per minute nasal cannula Acute hypoxemic and hypercapnic respiratory failure, currently on 3 liters Elevated trop x3 , demand ischemia and no chest pain, Trop max 0.36 History of CAD with previous CABG and subsequent cardiac stents Ischemic cardiomyopathy with an ejection fraction of 15 to 20% and moderate MR, status post AICD. Echocardiogram shows moderate severe mitral regurgitation and ejection fraction of around 20 to 25%, 10/25/24 atrial fibrillation with RVR and he is on amiodarone drip, current the rate is controled and the patient has been maintained on anticoagulation with Eliquis on outpatient basis. Acute kidney injury and creatinine is up to 1.45 Hypertension History of hyperlipidemia History of AAA with repair Chronic kidney disease stage IIIa, recovered the renal function was normal History of hypothyroidism History of left inguinal hernia with repair History of dementia History of seizure [facility] residentvignesh Plan: Patient is stable on 3 days of oxygen by nasal cannula A-fib is under better control Continue metoprolol 12.5 mg p.o. twice daily and anticoagulation with Eliquis. 02 at 3 liters Discontinued IV Lasix and the patient is currently on Demadex 10 mg p.o. daily and Aldactone 12.5 mg p.o. daily Entresto started today dose of 1 tablet twice a day Losartan was discontinued Continue Adriana Monitor renal function as the patient has a component of acute kidney injury Continue bronchodilators, the patient is currently on a combination of Symbicort and Spiriva IV Solu-Medrol Check viral 4 Plex We will continue to follow Time with Patient: Greater than 30
--- NOTE | 2024-11-13 16:48 | P.PN ---
Progress Note - Text Progress Note Date: 11/13/24 Chief Complaint: Short of breath pleasant 74-year-old male, follows with visiting physicians Dr. Quispe. With a past medical history of CAD status post CABG x 4 followed by stent placement x 2, nonischemic cardiomyopathy status post AICD placement, hypertension, hyperlipidemia, COPD, hypothyroidism, anxiety with depression, schizoaffective disorder, schizophrenia, and nicotine dependence. Lives at assisted living [place]. Patient just in the hospital discharged on November 09. Patient presented again to the ER via EMS. Patient states he woke up in a panic short of breath. [place] scared. Patient also found to be in atrial flutter/tach ycardia. Placed on IV amiodarone by cardiology. Still visibly short of breath. Has a cough. Wheezing. No sputum. Decreased appetite. To had his breakfast this morning. November 13: Admitted with CHF exacerbation and atrial flutter fibrillation. Also COPD exacerbation. Patient on DuoNeb. Symbicort. IV Solu-Medrol. Entresto added by cardiology. Also Aldactone. IV Lasix switched over to Demadex. Eating fair. A-fib controlled. Creatinine gone from 0.94-1.45. Active Medications Acetaminophen (Acetaminophen Tab 325 Mg Tab) 650 mg PO TID@0800,1399,1999 [facility] Last Admin: 11/13/24 13:33 Dose: 650 mg Hydrocodone Bitart/Acetaminophen (Hydrocodone/Apap 5-325mg 1 Each Tab) 1 each PO Q6HR PRN PRN Reason: Pain Last Admin: 11/13/24 16:19 Dose: 1 each Albuterol/Ipratropium (Ipratropium-Albuterol 3 Ml Neb) 3 ml INHALATION RT-QID [facility] Last Admin: 11/13/24 15:59 Dose: 3 ml Apixaban (Apixaban 5 Mg Tab) 5 mg PO BID [facility]; Protocol Last Admin: 11/13/24 08:18 Dose: 5 mg Aspirin (Aspirin 81 Mg) 81 mg PO DAILY [facility] Atorvastatin Calcium (Atorvastatin 40 Mg Tab) 40 mg PO HS@1999 [facility] Last Admin: 11/12/24 21:33 Dose: 40 mg Budesonide/Formoterol Fumarate (Symbicort 160-4.5 Mcg Inhaler) 2 puff INHALATION RT-BID@ [facility] Last Admin: 11/13/24 07:40 Dose: 2 puff Buspirone HCl (Buspirone Hcl 10 Mg Tab) 10 mg PO BID@799,1999 [facility] Last Admin: 11/13/24 08:16 Dose: 10 mg Cyanocobalamin (Cyanocobalamin 500 Mcg Tab) 1,000 mcg PO DAILY@0800 [facility] Last Admin: 11/13/24 08:16 Dose: 1,000 mcg Dapagliflozin (Dapagliflozin Propanediol 10 Mg Tablet) 10 mg PO DAILY@0800 [facility] Last Admin: 11/13/24 08:17 Dose: 10 mg Diclofenac Sodium (Diclofenac Sodium Gel 100 Gm Tube) 4 gm TOPICAL QID [facility]; Protocol Last Admin: 11/13/24 12:50 Dose: 4 gm Sodium Chloride (Saline 0.9%) 1,000 mls @ 20 mls/hr IV .Q24H [facility] Last Admin: 11/13/24 02:55 Dose: 20 mls/hr Levothyroxine Sodium (Levothyroxine 100 Mcg Tab) 100 mcg PO DAILY@0700 [facility] Last Admin: 11/13/24 08:16 Dose: 100 mcg Melatonin (Melatonin 5 Mg Tablet) 10 mg PO HS@1999 [facility] Last Admin: 11/12/24 21:32 Dose: 10 mg Methylprednisolone Sodium Succinate (Methylprednisolone Sod Succi 40 Mg/Ml 1 Ml Vial) 40 mg IV Q8H [facility] Last Admin: 11/13/24 12:50 Dose: 40 mg Metoprolol Tartrate (Metoprolol Tartrate 25 Mg Tab) 25 mg PO BID [facility] Mirtazapine (Mirtazapine 15 Mg Tab) 30 mg PO HS@1999 [facility] Last Admin: 11/12/24 21:35 Dose: 30 mg Naloxone HCl (Naloxone 0.4 Mg/Ml 1 Ml Vial) 0.2 mg IVP Q2M PRN PRN Reason: Opioid Reversal Nicotine (Nicotine 14mg/24hr Patch) 1 patch TRANSDERM DAILY [facility] Last Admin: 11/13/24 08:21 Dose: 1 patch Nitroglycerin (Nitroglycerin Oint 1 Inch/Gm Packet) 1 inch TOPICAL QID [facility] Last Admin: 11/13/24 12:30 Dose: Not Given Nitroglycerin (Nitroglycerin Sl Tabs 0.4 Mg Tab) 0.4 mg SUBLINGUAL Q5M PRN PRN Reason: Chest Pain Ondansetron HCl (Ondansetron 4 Mg/2 Ml Vial) 4 mg IVP Q8HR PRN PRN Reason: Nausea And Vomiting Pantoprazole Sodium (Pantoprazole 40 Mg Tablet) 40 mg PO AC-BID@ [facility] Last Admin: 11/13/24 08:16 Dose: 40 mg Sacubitril/Valsartan (Sacubitril/Valsartan 24 Mg-26 Mg Tablet) 1 each PO Q12H [facility] Senna/Docusate Sodium (Sennosides-Docusate Sodium 1 Each Tab) 2 each PO HS@1999 [facility] Last Admin: 11/12/24 21:34 Dose: 2 each Spironolactone (Spironolactone 25 Mg Tab) 12.5 mg PO DAILY [facility] Torsemide (Torsemide 20 Mg Tab) 10 mg PO DAILY [facility] Social history: 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 Possible smoker. At assisted [facility] Physical examination: VITAL SIGNS: 96.9, 69, 18, 95 x 52, 98% on 3 L GENERAL: Reclining bed, breathing better EYES: Pupils equal. Conjunctiva jameson l. HEENT: External appearance of nose and ears normal, oral cavity grossly normal. Slight decrease in hearing NECK: JVD not raised; masses not palpable. HEART: First and second heart sounds are normal; no edema. LUNGS:[ Respiratory rate increased, diminished breath sounds, decreased wheezing ABDOMEN: Soft, nontender, liver spleen not palpable, no masses palpable. PSYCH: Alert and oriented x3; mood and affect slightly anxious l. MUSCULOSKELETAL:No Clubbing/cyanosis;muscles-grossly intact Delete INVESTIGATIONS, reviewed in the clinical context: November 13: White count 10.6 hemoglobin 10.6 platelets 187 sodium 133 potassium 4 BUN 35 creatinine 1.45 November 11, 2024: White count 7.2 hemoglobin 12.1 platelets 136 sodium 136 potassium 4.5 BUN 18 creatinine 0.94 Troponin I 0.048, 0.040, 0.036 proBNP 1220 EKG tracing personally reviewed by me-atrial flutter/tachycardia Chest x-ray film personally reviewed by me-cardiomegaly. Venous prominence nicotine Previous studies 2D echocardiogram: EF 15 to 20%. Global hypokinesia. Moderate mitral regurgitation. Assessment and Plan -Acute on chronic systolic heart failure exacerbation, secondary to ischemic systolic dysfunction EF 15 to 20%: IV Lasix 40 mg every 8. Strict I's and O's. Fluid restriction 1500 cc a day. Follow labs. -New onset atrial flutter fibrillation with rapid ventricular rate on presentation. Currently rate controlled IV amiodarone discontinued Eliquis. Lopressor 25 mg twice daily. Cardiology following -Acute hypoxic respiratory failure combination of COPD exacerbation, pneumonia, CHF: I improved Patient was on BiPAP. Now down to 2-3 L. Incentive spirometry -Moderate mitral regurgitation -CAD status post CABG x 4 and stent placement x 2 Aspirin -Essential hypertension Lopressor-, Cozaar -Chronic nicotine dependence, cigarette smoker Patient states he goes out on his own to buy cigarettes Nicotine patch -Acute kidney injury combination of prerenal and ATN Follow renal function -Chronic kidney disease stage 2 likely nephrosclerosis Follow renal function -Hyperlipidemia Lipitor -Hypothyroidism Levothyroxine 100 mcg daily. -COPD, with acute exacerbation: In a current smoker DuoNeb 4 times daily. Symbicort. IV Solu-Medrol 40 mg Q8 -Chronic hypoxic respiratory failure from underlying COPD Home oxygen, 2 L -Full code -Public guardian-[facility] Discussed with patient. Medications been just discharged by cardiology. Bump in creatinine. Repeat labs tomorrow. Past Medical History Past Medical History: Coronary Artery Disease (CAD), Heart Failure, COPD, Dementia, Hyperlipidemia, Hypertension, Myocardial Infarction ([place]), Seizure Disorder, Syncope, Thyroid Disorder Additional Past Medical History / Comment(s): Ischemic cardiomyopathy, EF 20-25 %, last seizure about 2 yrs ago, hypothyroid.neuropathy "WHEN HE WORKED HE HAD A CRUSHING INJURY -COLLAPSED LUNGS C/T AND HAS CHRONIC BACK PAIN"" pt states he is schizophrenic/bipolar. TRIPLE A REPAIR AUG 2022 Last Myocardial Infarction Date:: unk History of Any Multi-Drug Resistant Organisms: None Reported Past Surgical History: AICD, Back Surgery, Coronary Bypass/CABG, Heart Catheterization, Heart Catheterization With Stent Additional Past Surgical History / Comment(s): 1995 CABG 4 vessel in [place], has had 2"HEART CATHS/had 2 STENTS after cabg sx.pt stated they were done in [facility]. "sx on tailbone, cortisone injections, devin inguinal hernia repair Past Anesthesia/Blood Transfusion Reactions: No Reported Reaction Date of Last Stent Placement:: 1995 Type of Cardiac Device: AICD Device Placement Date:: 1995 in [place], [place] Past Psychological History: Anxiety, Depression, Schizoaffective Disorder, Schizophrenia Smoking Status: Current every day smoker Past Alcohol Use History: None Reported Past Drug Use History: None Reported
[2024-11-13] MEDS: METOPROLOL TARTRATE 25 MG TAB PO SCH (20:55)
[2024-11-14 08:43] LABS: African American GFR (CKD) 65 (>60 ml/min/1.73 sqM); Anion Gap 10 mmol/L; Blood Urea Nitrogen 36 mg/dL (9-20); Carbon Dioxide 29 mmol/L (22-30); Chloride 96 mmol/L (98-107); Glucose 180 mg/dL (74-99); Non-African American GFR(CKD) 56 (>60 ml/min/1.73 sqM); Potassium 4.1 mmol/L (3.5-5.1); Sodium 135 mmol/L (137-145)
[2024-11-14] MEDS: ASPIRIN 81 MG PO SCH (08:51)
[2024-11-14] MEDS: SACUBITRIL/VALSARTAN 24 MG-26 MG TABLET PO SCH (08:52)
[2024-11-14] MEDS: SPIRONOLACTONE 25 MG TAB PO SCH (08:52)
[2024-11-14] MEDS: TORSEMIDE 20 MG TAB PO SCH (08:53)
[2024-11-14] MEDS ORDERED: FUROSEMIDE 40 MG TAB PO SCH (09:00)
[2024-11-14 11:45] VITALS: BMI 24.9
--- NOTE | 2024-11-14 13:50 | P.PN ---
Subjective HISTORY OF PRESENT ILLNESS: 74-year-old male with past medical history of CAD status post CABG, ischemic cardiomyopathy with a EF of 15 to 20%, AICD, hypertension dyslipidemia hypothyroidism, COPD, seizure disorder and dementia. He presented to ER after recent discharge on 11/09/2024. He presented because of increased worsening shortness of breath. On admission he was also noticed to be in atrial fibrillation with RVR with mild congestive heart failure exacerbation. On admission he also reported symptoms of headache. His last hospital a dmission was because of chronic lower back pain for which she was recommended to follow-up with an outpatient pain clinic. During last hospital admission he was optimized from cardiovascular standpoint. He was started on Imdur which I feel could be contributing to his headaches for this admission. His chest x-ray shows mild pulmonary congestion however no signs of obvious consolidation congestion or pleural effusion. Cardiology testing Echo from October shows an EF of 20 to 25%, severe hypokinetic inferior apical wall, mild pulm hypertension, moderate to severe mitral regurgitation, moderate tricuspid regurgitation. Heart cath from 09/2023 shows 100% proximal LAD, 70% proximal LCx, 100% RCA stenosis, occluded SVG to PDA, patent FIORE to LAD, SVG to diagonal with 95% stenosis, status post PCI of SVG to diagonal. 11/13/2024 On today's visit patient is doing well. He denies any shortness of breath headache chest pressure. He appears euvolemic. His telemetry shows rate controlled atrial fibrillation with heart rate around 70 bpm. SBP around 100 to 110 mmHg. 11/14/2024 Patient examined this morning at the bedside. Patient currently denies chest pain or pressure. He denies shortness of breath. Vital signs are stable. PHYSICAL EXAM: VITAL SIGNS: Reviewed. GENERAL: Well-developed in no acute distress. NECK: Supple. No JVD or thyromegaly LUNGS: Respirations even and unlabored. Lungs essentially clear to auscultation bilaterally. HEART: Regular rate and rhythm. S1 and S2 heard. EXTREMITIES: Normal range of motion. No clubbing or cyanosis. Peripheral pulses intact. No lower extremity edema ASSESSMENT: # Atrial flutter with RVR on admission, currently rate controlled. # Prior history of paroxysmal atrial fibrillation and typical atrial flutter # Mild acute on chronic HFrEF exacerbation # Ischemic cardiomyopathy with a EF of 20 to 25%. NYHA class III # CAD status post CABG 1995 status post PCI to SVG to diagonal 2023 # History of primary prevention AICD # History of AAA repair # Seizure disorder # Moderate to severe mitral regurgitation # Mild pulm hypertension # Essential hypertension, dyslipidemia # PAD PLAN: Continue current cardiac medications including Eliquis, aspirin, Lipitor, Farxiga, metoprolol, Aldactone, and Demadex Patient is stable for discharge today from a cardiac standpoint Patient is to follow-up postdischarge in the office Nurse practitioner note has been reviewed by physician. Signing provider agrees with the documented findings, assessment, and plan of care documented by CARDIOVASCULAR SPECIALIST as a scribe. Objective - Vital Signs Vital signs: Vital Signs Temp 98.4 F 11/14/24 11:35 Pulse 80 11/14/24 13:23 Resp 16 11/14/24 13:23 BP 118/56 11/14/24 11:35 Pulse Ox 98 11/14/24 13:15 FiO2 Intake & Output 11/13/24 11/14/24 11/14/24 18:59 06:59 18:59 Intake Total 952 600 Output Total 1475 2100 400 Balance -523 -1500 -400 Weight 66.224 kg 70 kg 70 kg Intake: Oral 952 600 Output: Urine 1475 2100 400 Other: Voiding Method Urinal Urinal Urinal # Voids 1 2 - Labs CBC & Chem 7: 11/13/24 06:04 11/14/24 07:51 Labs: Abnormal Lab Results - Last 24 Hours (Table) 11/14/24 Range/Units 07:51 Sodium 135 L (137-145) mmol/L Chloride 96 L (98-107) mmol/L BUN 36 H (9-20) mg/dL Creatinine 1.26 H (0.66-1.25) mg/dL Glucose 180 H (74-99) mg/dL
--- NOTE | 2024-11-14 15:41 | P.PN ---
Subjective Progress Note Date: 11/14/24 Patient is a 74-year-old male with past medical history significant for coronary artery disease with CABG, ischemic cardiomyopathy with ejection fraction 15 to 20%, AICD, hypertension, hypothyroidism, COPD, seizure disorder, dementia. I believe the patient resides at an [facility] home. He has an AICD/pacemaker. Echocardiogram, October 2024 was also completed and the patient was found to have impaired ejection fraction of 20 to 25% along with severe hypokinesis of the LV, moderate severe mitral regurgitation was also noted. This patient presented to the emergency department after being discharged home on 11/09/2024. The patient presented again with worsening shortness of breath. The patient was having A- fib/flutter with secondary tachycardia. The patient was also having worsening shortness of breath. He has a chronic cough. He has chronic wheeze. No significant sputum production. The patient accordingly was brought into the hospital and he was found to be in CHF which was essentially secondary to A-fib RVR. The patient is currently on liters of oxygen by nasal cannula. The patient on amiodarone drip for rate control. He remains on 3 Suboxone by nasal cannula. He was started on diuretics and the patient is currently on Lasix 40 mg IV push every 8 hours. At the same time, the patient was started on bronchodilators with Italo vizcarra. The patient on Symbicort and Spiriva. T he patient on IV Solu-Medrol 40 mg every 12 hours. IV fluids are currently at KVO. Blood work showed a white cell count 7.2, hemoglobin 12.1 and platelet count of 176. Normal coagulation profile. The viral screen was negative. Electrolytes are all within normal limits with a BUN of 18 and a creatinine of 0.9. Calcium is at 10.3. proBNP level is at 1220. LFTs are normal. Arousable, able to communicate. Free of any chest pain. The patient has COPD with an FEV1 of 59% of predicted. On today's evaluation of 11/13/2024, the patient is feeling less short of breath compared to yesterday. No new complaints otherwise for now. Resting comfortably in bed. He has no chest pain. He remains in atrial fibrillation and rate is under much better control for now. The patient is still on anti coagulation with Eliquis. The patient was taken off the IV Lasix and the patient was started on torsemide 20 mg p.o. daily. The patient is also on a combination of Farxiga and Aldactone and metoprolol 25 mg p.o. twice a day and losartan was discontinued the patient was started on Entresto 24/26 1 tablet twice a day. His blood work showed a white cell count of 10.6 with a hemoglobin 10.6 and a platelet count of 187. BUN 35 with a creatinine 1.4 and a sodium levels at 133. He does have a component of an acute kidney injury based on today's blood work. The white cell count is at 4. On today's evaluation of 11/14/2024, the patient is feeling well. No new complaints. No chest pain. Cardiac rhythm is back to sinus. Remains on oxygen of 3 L/min nasal cannula. Remains on Symbicort and DuoNeb nebulizers [id number]. In terms of diuresis, the patient is currently on a combination of Demadex 10 mg p.o. Aldactone 12.5 mg p.o. daily. Regarding his cardiomyopathy, I will placed on Entresto 24/26 1 tablet twice a day. He is also on metoprolol 25 mg p.o. twice a day. He is on Farxiga 10 mg p.o. daily. He is also on long-term anticoagulation with Eliquis. The white cell count of 10.6 with a hemoglobin of 10.6 and a platelet count of 187. Electrolytes from today shows a sodium level of 135, BUN 36 with a creatinine of 1.2. Potassium level is at 4.1. No other new complaints otherwise for now. Objective - Vital Signs Vital signs: Vital Signs Temp 98.4 F 11/14/24 11:35 Pulse 81 11/14/24 11:35 Resp 17 11/14/24 11:35 BP 118/56 11/14/24 11:35 Pulse Ox 97 11/14/24 11:35 FiO2 Intake & Output 11/13/24 11/14/24 11/14/24 18:59 06:59 18:59 Intake Total 952 600 Output Total 1475 2100 400 Balance -523 1500 -400 Weight 66.224 kg 70 kg 70 kg Intake: Oral 952 600 Output: Urine 1475 2100 400 Other: Voiding Method Urinal Urinal Urinal # Voids 1 2 - Exam GENERAL EXAM: Lethargic, 74-year-old male, awake and alert and currently on 3 liters of oxygen by nasal cannula HEAD: Normocephalic and atraumatic EYES: Normal reaction of pupils, equal size. NOSE: Clear with pink turbinates. THROAT: No erythema or exudates. NECK: No masses, no JVD. CHEST: No chest wall deformity. LUNGS: Equal air entry with no crackles, wheeze, rhonchi or dullness. Breathing is nonlabored. CVS: S1 and S2 normal with COLLINS grade 3/6 murmur, irregular rhythm. No extra heart sounds ABDOMEN: No hepatosplenomegaly, active bowel sounds, no guarding or rigidity. SPINE: No scoliosis or deformity SKIN: No rashes CENTRAL NERVOUS SYSTEM: No focal deficits, tone is normal in all 4 extremities. He is lethargic and wwak EXTREMITIES: There is no peripheral edema, clubbing, or cyanosis. Peripheral pulses are intact. - Labs CBC & Chem 7: 11/13/24 06:04 11/14/24 07:51 Labs: Abnormal Lab Results - Last 24 Hours (Table) 11/14/24 Range/Units 07:51 Sodium 135 L (137-145) mmol/L Chloride 96 L (98-107) mmol/L BUN 36 H (9-20) mg/dL Creatinine 1.26 H (0.66-1.25) mg/dL Glucose 180 H (74-99) mg/dL Assessment and Plan Plan: Acute exacerbation of systolic congestive heart failure secondary to Afib/RVR, improving, no significant shortness of breath. No hemodynamic instability. CHF is optimized. COPD with an FEV1 of 69% of predicted per minute nasal cannula Acute hypoxemic and hypercapnic respiratory failure, currently on 3 liters Elevated trop x3 , demand ischemia and no chest pain, Trop max 0.36 History of CAD with previous CABG and subsequent cardiac stents Ischemic cardiomyopathy with an ejection fraction of 15 to 20% and moderate MR, status post AICD. Echocardiogram shows moderate severe mitral regurgitation and ejection fraction of around 20 to 25%, 10/25/24 atrial fibrillation with RVR and he is on amiodarone drip, current the rate is controled and the patient has been maintained on anticoagulation with Eliquis on outpatient basis. Acute kidney injury and creatinine is up to 1.45 Hypertension History of hyperlipidemia History of AAA with repair Chronic kidney disease stage IIIa, recovered the renal function was normal History of hypothyroidism History of left inguinal hernia with repair History of dementia History of seizure [facility] resident, vignesh Plan: Patient is stable on 3 liters of oxygen by nasal cannula A-fib is under better control Continue metoprolol 25 mg p.o. twice a day in combination with Eliquis 5 mg p.o. twice a day. Continue Demadex 10 mg p.o. daily and Aldactone 12.5 mg p.o. daily Entresto started today dose of 1 tablet twice a day Continue Farxiga Monitor renal function as the patient has a component of acute kidney injury, renal function is already improved. Continue bronchodilators, the patient is currently on a combination of Symbicort and Spiriva Prednisone burst taper at time of discharge Check viral 4 Plex We will continue to follow possibly home today.
--- NOTE | 2024-11-14 16:45 | P.PN ---
Progress Note - Text Progress Note Date: 11/14/24 Chief Complaint: Short of breath pleasant 74-year-old male, follows with visiting physicians Dr. Quispe. With a past medical history of CAD status post CABG x 4 followed by stent placement x 2, nonischemic cardiomyopathy status post AICD placement, hypertension, hyperlipidemia, COPD, hypothyroidism, anxiety with depression, schizoaffective disorder, schizophrenia, and nicotine dependence. Lives at assisted living [facility]. Patient just in the hospital discharged on November 09. Patient presented again to the ER via EMS. Patient states he woke up in a panic short of breath. Lyons scared. Patient also found to be in atrial flutter/tach ycardia. Placed on IV amiodarone by cardiology. Still visibly short of breath. Has a cough. Wheezing. No sputum. Decreased appetite. To had his breakfast this morning. November 13: Admitted with CHF exacerbation and atrial flutter fibrillation. Also COPD exacerbation. Patient on DuoNeb. Symbicort. IV Solu-Medrol. Entresto added by cardiology. Also Aldactone. IV Lasix switched over to Demadex. Eating fair. A-fib controlled. Creatinine gone from 0.94-1.45. November 14: Breathing better. Will switch to p.o. prednisone. Per case folder Kira, legal guardian patient will have to go to rehab now. Patient has been quite upset about the same. Otherwise eating 50-75 %. IV Lasix been switched over to oral Demadex and Aldactone. Entresto added. Active Medications Acetaminophen (Acetaminophen Tab 325 Mg Tab) 650 mg PO TID@0800,1400,2000 [facility] Last Admin: 11/14/24 08:51 Dose: 650 mg Hydrocodone Bitart/Acetaminophen (Hydrocodone/Apap 5-325mg 1 Each Tab) 1 each PO Q6HR PRN PRN Reason: Pain Last Admin: 11/14/24 12:17 Dose: 1 each Albuterol/Ipratropium (Ipratropium-Albuterol 3 Ml Neb) 3 ml INHALATION RT-QID [facility] Last Admin: 11/14/24 13:15 Dose: 3 ml Apixaban (Apixaban 5 Mg Tab) 5 mg PO BID [facility]; Protocol Last Admin: 11/14/24 08:52 Dose: 5 mg Aspirin (Aspirin 81 Mg) 81 mg PO DAILY [facility] Last Admin: 11/14/24 08:51 Dose: 81 mg Atorvastatin Calcium (Atorvastatin 40 Mg Tab) 40 mg PO HS@1999 [facility] Last Admin: 11/13/24 20:55 Dose: 40 mg Budesonide/Formoterol Fumarate (Symbicort 160-4.5 Mcg Inhaler) 2 puff INHALATION RT-BID@ [facility] Last Admin: 11/14/24 08:46 Dose: 2 puff Buspirone HCl (Buspirone Hcl 10 Mg Tab) 10 mg PO BID@ [facility] Last Admin: 11/14/24 08:53 Dose: 10 mg Cyanocobalamin (Cyanocobalamin 500 Mcg Tab) 1,000 mcg PO DAILY@08 [facility] Last Admin: 11/14/24 08:51 Dose: 1,000 mcg Dapagliflozin (Dapagliflozin Propanediol 10 Mg Tablet) 10 mg PO DAILY@08 [facility] Last Admin: 11/14/24 08:52 Dose: 10 mg Diclofenac Sodium (Diclofenac Sodium Gel 100 Gm Tube) 4 gm TOPICAL QID [facility]; Protocol Last Admin: 11/14/24 12:19 Dose: 4 gm Sodium Chloride (Saline 0.9%) 1,000 mls @ 20 mls/hr IV .Q24H [facility] Last Admin: 11/14/24 03:50 Dose: 20 mls/hr Levothyroxine Sodium (Levothyroxine 100 Mcg Tab) 100 mcg PO DAILY@0700 [facility] Last Admin: 11/14/24 06:05 Dose: 100 mcg Melatonin (Melatonin 5 Mg Tablet) 10 mg PO HS@1999 [facility] Last Admin: 11/13/24 20:54 Dose: 10 mg Metoprolol Tartrate (Metoprolol Tartrate 25 Mg Tab) 25 mg PO BID [facility] Last Admin: 11/14/24 08:52 Dose: 25 mg Mirtazapine (Mirtazapine 15 Mg Tab) 30 mg PO HS@1999 [facility] Last Admin: 11/13/24 20:55 Dose: 30 mg Naloxone HCl (Naloxone 0.4 Mg/Ml 1 Ml Vial) 0.2 mg IVP Q2M PRN PRN Reason: Opioid Reversal Nicotine (Nicotine 14mg/24hr Patch) 1 patch TRANSDERM DAILY [facility] Last Admin: 11/14/24 08:53 Dose: 1 patch Nitroglycerin (Nitroglycerin Sl Tabs 0.4 Mg Tab) 0.4 mg SUBLINGUAL Q5M PRN PRN Reason: Chest Pain Ondansetron HCl (Ondansetron 4 Mg/2 Ml Vial) 4 mg IVP Q8HR PRN PRN Reason: Nausea And Vomiting Pantoprazole Sodium (Pantoprazole 40 Mg Tablet) 40 mg PO AC-BID@799,1999 [facility] Last Admin: 11/14/24 08:51 Dose: 40 mg Prednisone (Prednisone 20 Mg Tab) 40 mg PO DAILY [facility] Sacubitril/Valsartan (Sacubitril/Valsartan 24 Mg-26 Mg Tablet) 1 each PO Q12H [facility] Last Admin: 11/14/24 08:52 Dose: 1 each Senna/Docusate Sodium (Sennosides-Docusate Sodium 1 Each Tab) 2 each PO HS@1999 [facility] Last Admin: 11/13/24 20:57 Dose: 2 each Spironolactone (Spironolactone 25 Mg Tab) 12.5 mg PO DAILY [facility] Last Admin: 11/14/24 08:52 Dose: 12.5 mg Torsemide (Torsemide 20 Mg Tab) 10 mg PO DAILY [facility] Last Admin: 11/14/24 08:53 Dose: 10 mg Social history: 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 Possible smoker. At assisted living- [facility] Physical examination: VITAL SIGNS: 98.4, 71, 16, 118 x 56, 97% 3 L GENERAL: Up in a chair, looking better EYES: Pupils equal. Conjunctiva jameson l. HEENT: External appearance of nose and ears normal, oral cavity grossly normal. Slight decrease in hearing NECK: JVD not raised; masses not palpable. HEART: First and second heart sounds are normal; no edema. LUNGS:[ Respiratory rate normal diminished breath sounds, decreased wheezing ABDOMEN: Soft, nontender, liver spleen not palpable, no masses palpable. PSYCH: Alert and oriented x3; mood and affect slightly anxious l. MUSCULOSKELETAL:No Clubbing/cyanosis;muscles-grossly intact INVESTIGATIONS, reviewed in the clinical context: November 14: Potassium 4.1 BUN 36 creatinine 1.26 November 13: White count 10.6 hemoglobin 10.6 platelets 187 sodium 133 potassium 4 BUN 35 creatinine 1.45 November 11, 2024: White count 7.2 hemoglobin 12.1 platelets 136 sodium 136 potassium 4.5 BUN 18 creatinine 0.94 Troponin I 0.048, 0.040, 0.036 proBNP 1220 EKG tracing personally reviewed by me-atrial flutter/tachycardia Chest x-ray film personally reviewed by me-cardiomegaly. Venous prominence nicotine Previous studies 2D echocardiogram: EF 15 to 20%. Global hypokinesia. Moderate mitral regurgitation. Assessment and Plan -Acute on chronic systolic heart failure exacerbation, secondary to ischemic systolic dysfunction EF 15 to 20%:: Better Received IV Lasix. Today switched over to Demadex 10 mg a day and Aldactone 12.5 a day. I's and O's. Fluid restriction 1500 cc a day. Follow labs. Entresto started -New onset atrial flutter fibrillation with rapid ventricular rate on presentation. Currently rate controlled IV amiodarone discontinued Eliquis. Lopressor 25 mg twice daily. Cardiology following -Acute hypoxic respiratory failure combination of COPD exacerbation, pneumonia, CHF: I improved Patient was on BiPAP. Now down to 2-3 L. Incentive spirometry -Moderate mitral regurgitation -CAD status post CABG x 4 and stent placement x 2 Aspirin -Essential hypertension Lopressor-, -Chronic nicotine dependence, cigarette smoker Patient states he goes out on his own to buy cigarettes Nicotine patch -Acute kidney injury combination of prerenal and ATN Follow renal function -Chronic kidney disease stage 2 likely nephrosclerosis Follow renal function -Hyperlipidemia Lipitor -Hypothyroidism Levothyroxine 100 mcg daily. -COPD, with acute exacerbation: In a current smoker: Better DuoNeb 4 times daily. Symbicort. IV Solu-Medrol given. Changed to oral prednisone today -Chronic hypoxic respiratory failure from underlying COPD Home oxygen, 2 L -Full code -Public guardian-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 Diuretics changed to p.o. IV Solu-Medrol changed to prednisone. Repeat labs tomorrow. Past Medical History Past Medical History: Coronary Artery Disease (CAD), Heart Failure, COPD, Dementia, Hyperlipidemia, Hypertension, Myocardial Infarction (NH), Seizure Disorder, Syncope, Thyroid Disorder Additional Past Medical History / Comment(s): Ischemic cardiomyopathy, EF 20- 25%, last seizure about 2 yrs ago, hypothyroid.neuropathy "WHEN HE WORKED HE HAD A CRUSHING INJURY -COLLAPSED LUNGS C/T AND HAS CHRONIC BACK PAIN"" pt states he is schizophrenic/bipolar. TRIPLE A REPAIR AUG 2022 Last Myocardial Infarction Date:: unk History of Any Multi-Drug Resistant Organisms: None Reported Past Surgical History: AICD, Back Surgery, Coronary Bypass/CABG, Heart Catheterization, Heart Catheterization With Stent Additional Past Surgical History / Comment(s): 1995 CABG 4 vessel in [place], has had 2"HEART CATHS/had 2 STENTS after cabg sx.pt stated they were done in [facility]. "sx on tailbone, cortisone injections, devin inguinal hernia repair Past Anesthesia/Blood Transfusion Reactions: No Reported Reaction Date of Last Stent Placement:: 1995 Type of Cardiac Device: AICD Device Placement Date:: 1995 in [facility] Past Psychological History: Anxiety, Depression, Schizoaffective Disorder, Schizophrenia Smoking Status: Current every day smoker Past Alcohol Use History: None Reported Past Drug Use History: None Reported
[2024-11-14] MEDS: predniSONE 20 MG TAB PO SCH (17:15)
[2024-11-15 07:33] LABS: African American GFR (CKD) 62 (>60 ml/min/1.73 sqM); Anion Gap 7 mmol/L; Blood Urea Nitrogen 33 mg/dL (9-20); Carbon Dioxide 31 mmol/L (22-30); Chloride 99 mmol/L (98-107); Glucose 107 mg/dL (74-99); Non-African American GFR(CKD) 54 (>60 ml/min/1.73 sqM); Potassium 4.3 mmol/L (3.5-5.1); Sodium 137 mmol/L (137-145)
--- NOTE | 2024-11-15 16:07 | P.PN ---
Progress Note - Text Progress Note Date: 11/15/24 Chief Complaint: Short of breath pleasant 74-year-old male, follows with visiting physicians Dr. Quispe. With a past medical history of CAD status post CABG x 4 followed by stent placement x 2, nonischemic cardiomyopathy status post AICD placement, hypertension, hyperlipidemia, COPD, hypothyroidism, anxiety with depression, schizoaffective disorder, schizophrenia, and nicotine dependence. Lives at assisted living Hall. Patient just in the hospital discharged on November 09. Patient presented again to the ER via EMS. Patient states he woke up in a panic short of breath. [place] scared. Patient also found to be in atrial flutter/tach ycardia. Placed on IV amiodarone by cardiology. Still visibly short of breath. Has a cough. Wheezing. No sputum. Decreased appetite. To had his breakfast this morning. November 13: Admitted with CHF exacerbation and atrial flutter fibrillation. Also COPD exacerbation. Patient on DuoNeb. Symbicort. IV Solu-Medrol. Entresto added by cardiology. Also Aldactone. IV Lasix switched over to Demadex. Eating fair. A-fib controlled. Creatinine gone from 0.94-1.45. November 14: Breathing better. Will switch to p.o. prednisone. Per keycase assembler Kira, legal guardian patient will have to go to rehab now. Patient has been quite upset about the same. Otherwise eating 50-75 %. IV Lasix been switched over to oral Demadex and Aldactone. Entresto added. November 15: Sitting up bed. Breathing stable. Kira sr. social media & mobile manager informed me that patient's been denied long-term care. Legal guardian and sr. social media & mobile manager looking into alternative placement. Otherwise patient stable Active Medications Acetaminophen (Acetaminophen Tab 325 Mg Tab) 650 mg PO TID@0800,1400,1999 [facility] Last Admin: 11/15/24 08:37 Dose: 650 mg Hydrocodone Bitart/Acetaminophen (Hydrocodone/Apap 5-325mg 1 Each Tab) 1 each PO Q6HR PRN PRN Reason: Pain Last Admin: 11/14/24 12:17 Dose: 1 each Albuterol/Ipratropium (Ipratropium-Albuterol 3 Ml Neb) 3 ml INHALATION RT-QID [facility] Last Admin: 11/15/24 12:46 Dose: 3 ml Apixaban (Apixaban 5 Mg Tab) 5 mg PO BID [facility]; Protocol Last Admin: 11/15/24 12:25 Dose: 5 mg Aspirin (Aspirin 81 Mg) 81 mg PO DAILY [facility] Last Admin: 11/15/24 08:38 Dose: 81 mg Atorvastatin Calcium (Atorvastatin 40 Mg Tab) 40 mg PO HS@1999 [facility] Last Admin: 11/14/24 20:23 Dose: 40 mg Budesonide/Formoterol Fumarate (Symbicort 160-4.5 Mcg Inhaler) 2 puff INHAL ATION RT-BID@ [facility] Last Admin: 11/15/24 08:31 Dose: 2 puff Buspirone HCl (Buspirone Hcl 10 Mg Tab) 10 mg PO BID@ [facility] Last Admin: 11/15/24 08:38 Dose: 10 mg Cyanocobalamin (Cyanocobalamin 500 Mcg Tab) 1,000 mcg PO DAILY@08 [facility] Last Admin: 11/15/24 08:37 Dose: 1,000 mcg Dapagliflozin (Dapagliflozin Propanediol 10 Mg Tablet) 10 mg PO DAILY@08 [facility] Last Admin: 11/15/24 08:38 Dose: 10 mg Diclofenac Sodium (Diclofenac Sodium Gel 100 Gm Tube) 4 gm TOPICAL QID [facility]; Protocol Last Admin: 11/15/24 12:25 Dose: 4 gm Sodium Chloride (Saline 0.9%) 1,000 mls @ 20 mls/hr IV .Q24H [facility] Last Admin: 11/15/24 05:34 Dose: Not Given Levothyroxine Sodium (Levothyroxine 100 Mcg Tab) 100 mcg PO DAILY@0700 [facility] Last Admin: 11/15/24 05:53 Dose: 100 mcg Melatonin (Melatonin 5 Mg Tablet) 10 mg PO HS@1999 [facility] Last Admin: 11/14/24 20:23 Dose: 10 mg Metoprolol Tartrate (Metoprolol Tartrate 25 Mg Tab) 25 mg PO BID [facility] Last Admin: 11/15/24 08:38 Dose: 25 mg Mirtazapine (Mirtazapine 15 Mg Tab) 30 mg PO HS@1999 [facility] Last Admin: 11/14/24 20:22 Dose: 30 mg Naloxone HCl (Naloxone 0.4 Mg/Ml 1 Ml Vial) 0.2 mg IVP Q2M PRN PRN Reason: Opioid Reversal Nicotine (Nicotine 14mg/24hr Patch) 1 patch TRANSDERM DAILY [facility] Last Admin: 11/15/24 08:39 Dose: 1 patch Nitroglycerin (Nitroglycerin Sl Tabs 0.4 Mg Tab) 0.4 mg SUBLINGUAL Q5M PRN PRN Reason: Chest Pain Ondansetron HCl (Ondansetron 4 Mg/2 Ml Vial) 4 mg IVP Q8HR PRN PRN Reason: Nausea And Vomiting Pantoprazole Sodium (Pantoprazole 40 Mg Tablet) 40 mg PO AC-BID@799,1999 [facility] Last Admin: 11/15/24 08:38 Dose: 40 mg Prednisone (Prednisone 20 Mg Tab) 40 mg PO DAILY [facility] Last Admin: 11/15/24 08:38 Dose: 40 mg Sacubitril/Valsartan (Sacubitril/Valsartan 24 Mg-26 Mg Tablet) 1 each PO Q12H [facility] Last Admin: 11/15/24 08:39 Dose: 1 each Senna/Docusate Sodium (Sennosides-Docusate Sodium 1 Each Tab) 2 each PO HS@1999 [facility] Last Admin: 11/14/24 20:22 Dose: 2 each Spironolactone (Spironolactone 25 Mg Tab) 12.5 mg PO DAILY [facility] Last Admin: 11/15/24 08:38 Dose: 12.5 mg Torsemide (Torsemide 20 Mg Tab) 10 mg PO DAILY [facility] Last Admin: 11/15/24 08:38 Dose: 10 mg Social history: 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 Possible smoker. At assisted living- Hall Physical examination: VITAL SIGNS: 97.5, 81, 20, 115/52, 98% 3 L GENERAL: Sitting up in bed, comfortable EYES: Pupils equal. Conjunctiva jameson l. HEENT: External appearance of nose and ears normal, oral cavity grossly normal. Slight decrease in hearing NECK: JVD not raised; masses not palpable. HEART: First and second heart sounds are normal; no edema. LUNGS:[ Respiratory rate normal diminished breath sounds, decreased wheezing ABDOMEN: Soft, nontender, liver spleen not palpable, no masses palpable. PSYCH: Alert and oriented x3; mood and affect slightly anxious l. MUSCULOSKELETAL:No Clubbing/cyanosis;muscles-grossly intact INVESTIGATIONS, reviewed in the clinical context: November 15: Potassium 4.3 BUN 33 creatinine 1.31 November 14: Potassium 4.1 BUN 36 creatinine 1.26 November 13: White count 10.6 hemoglobin 10.6 platelets 187 sodium 133 potassium 4 BUN 35 creatinine 1.45 November 11, 2024: White count 7.2 hemoglobin 12.1 platelets 136 sodium 136 potassium 4.5 BUN 18 creatinine 0.94 Troponin I 0.048, 0.040, 0.036 proBNP 1220 EKG tracing personally reviewed by me-atrial flutter/tachycardia Chest x-ray film personally reviewed by me-cardiomegaly. Venous prominence nicotine Previous studies 2D echocardiogram: EF 15 to 20%. Global hypokinesia. Moderate mitral regurgitation. Assessment and Plan -Acute on chronic systolic heart failure exacerbation, secondary to ischemic systolic dysfunction EF 15 to 20%:: Better Received IV Lasix. Today switched over to Demadex 10 mg a day and Aldactone 12.5 a day. I's and O's. Fluid restriction 1500 cc a day. Follow labs. Entresto started -New onset atrial flutter fibrillation with rapid ventricular rate on presentation. Currently rate controlled IV amiodarone discontinued Eliquis. Lopressor 25 mg twice daily. Cardiology following -Acute hypoxic respiratory failure combination of COPD exacerbation, pneumonia, CHF: I improved Patient was on BiPAP. Now down to 2-3 L. Incentive spirometry -Moderate mitral regurgitation -CAD status post CABG x 4 and stent placement x 2 Aspirin -Essential hypertension Lopressor-, -Chronic nicotine dependence, cigarette smoker Patient states he goes out on his own to buy cigarettes Nicotine patch -Acute kidney injury combination of prerenal and ATN Follow renal function -Chronic kidney disease stage 2 likely nephrosclerosis Follow renal function -Hyperlipidemia Lipitor -Hypothyroidism Levothyroxine 100 mcg daily. -COPD, with acute exacerbation: In a current smoker: Better DuoNeb 4 times daily. Symbicort. IV Solu-Medrol given. Changed to oral prednisone today -Chronic hypoxic respiratory failure from underlying COPD Home oxygen, 2 L -Full code -Public guardian-[facility] Patient been denied long-term care at [facility]. sales training manager and public are looking for alternative placement. Past Medical History Past Medical History: Coronary Artery Disease (CAD), Heart Failure, COPD, Dementia, Hyperlipidemia, Hypertension, Myocardial Infarction (AR), Seizure Disorder, Syncope, Thyroid Disorder Additional Past Medical History / Comment(s): Ischemic cardiomyopathy, EF 20- 25%, last seizure about 2 yrs ago, hypothyroid.neuropathy "WHEN HE WORKED HE HAD A CRUSHING INJURY -COLLAPSED LUNGS C/T AND HAS CHRONIC BACK PAIN"" pt states he is schizophrenic/bipolar. TRIPLE A REPAIR AUG 2022 Last Myocardial Infarction Date:: unk History of Any Multi-Drug Resistant Organisms: None Reported Past Surgical History: AICD, Back Surgery, Coronary Bypass/CABG, Heart Catheterization, Heart Catheterization With Stent Additional Past Surgical History / Comment(s): 1995 CABG 4 vessel in [place], has had 2"HEART CATHS/had 2 STENTS after cabg sx.pt stated they were done in [facility]. "sx on tailbone, cortisone injections, devin inguinal hernia repair Past Anesthesia/Blood Transfusion Reactions: No Reported Reaction Date of Last Stent Placement:: 1995 Type of Cardiac Device: AICD Device Placement Date:: [facility] Past Psychological History: Anxiety, Depression, Schizoaffective Disorder, Schizophrenia Smoking Status: Current every day smoker Past Alcohol Use History: None Reported Past Drug Use History: None Reported
--- NOTE | 2024-11-15 22:51 | P.PN ---
Subjective Progress Note Date: 11/15/24 Patient is a 74-year-old male with past medical history significant for coronary artery disease with CABG, ischemic cardiomyopathy with ejection fraction 15 to 20%, AICD, hypertension, hypothyroidism, COPD, seizure disorder, dementia. I believe the patient resides at an [facility] home. He has an AICD/pacemaker. Echocardiogram, October 2024 was also completed and the patient was found to have impaired ejection fraction of 20 to 25% along with severe hypokinesis of the LV, moderate severe mitral regurgitation was also noted. This patient presented to the emergency department after being discharged home on 11/09/2024. The patient presented again with worsening shortness of breath. The patient was having A- fib/flutter with secondary tachycardia. The patient was also having worsening shortness of breath. He has a chronic cough. He has chronic wheeze. No significant sputum production. The patient accordingly was brought into the hospital and he was found to be in CHF which was essentially secondary to A-fib RVR. The patient is currently on liters of oxygen by nasal cannula. The patient on amiodarone drip for rate control. He remains on 3 Suboxone by nasal cannula. He was started on diuretics and the patient is currently on Lasix 40 mg IV push every 8 hours. At the same time, the patient was started on bronchodilators with Italo vizcarra. The patient on Symbicort and Spiriva. T he patient on IV Solu-Medrol 40 mg every 12 hours. IV fluids are currently at KVO. Blood work showed a white cell count 7.2, hemoglobin 12.1 and platelet count of 176. Normal coagulation profile. The viral screen was negative. Electrolytes are all within normal limits with a BUN of 18 and a creatinine of 0.9. Calcium is at 10.3. proBNP level is at 1220. LFTs are normal. Arousable, able to communicate. Free of any chest pain. The patient has COPD with an FEV1 of 59% of predicted. On today's evaluation of 11/13/2024, the patient is feeling less short of breath compared to yesterday. No new complaints otherwise for now. Resting comfortably in bed. He has no chest pain. He remains in atrial fibrillation and rate is under much better control for now. The patient is still on anti coagulation with Eliquis. The patient was taken off the IV Lasix and the patient was started on torsemide 20 mg p.o. daily. The patient is also on a combination of Farxiga and Aldactone and metoprolol 25 mg p.o. twice a day and losartan was discontinued the patient was started on Entresto 24/26 1 tablet twice a day. His blood work showed a white cell count of 10.6 with a hemoglobin 10.6 and a platelet count of 187. BUN 35 with a creatinine 1.4 and a sodium levels at 133. He does have a component of an acute kidney injury based on today's blood work. The white cell count is at 4. On today's evaluation of 11/14/2024, the patient is feeling well. No new complaints. No chest pain. Cardiac rhythm is back to sinus. Remains on oxygen of 3 L/min nasal cannula. Remains on Symbicort and DuoNeb nebulizers [id number]. In terms of diuresis, the patient is currently on a combination of Demadex 10 mg p.o. Aldactone 12.5 mg p.o. daily. Regarding his cardiomyopathy, I will placed on Entresto 24/26 1 tablet twice a day. He is also on metoprolol 25 mg p.o. twice a day. He is on Farxiga 10 mg p.o. daily. He is also on long-term anticoagulation with Eliquis. The white cell count of 10.6 with a hemoglobin of 10.6 and a platelet count of 187. Electrolytes from today shows a sodium level of 135, BUN 36 with a creatinine of 1.2. Potassium level is at 4.1. No other new complaints otherwise for now. On 11/15/2024, the patient is stable, no new complaints. Remains on 3 L of oxygen by nasal cannula. CHF is being optimized. Atrial fibrillation is controlled and the patient has no significant tachycardia. The patient remains on Symbicort and Spiriva and the patient will be also started on a prednisone burst taper. Cardiac medications remain unchanged. Remains on a combination of Demadex and Aldactone. BUN is 33 with a creatinine of 1.3. Rest of the electrolytes are all within normal limits. Objective - Vital Signs Vital signs: Vital Signs Temp 97.3 F L 11/15/24 08:00 Pulse 86 11/15/24 08:00 Resp 20 11/15/24 08:00 BP 99/61 11/15/24 08:00 Pulse Ox 98 11/15/24 08:00 FiO2 Intake & Output 11/14/24 11/15/24 11/15/24 18:59 06:59 18:59 Intake Total 240 800 Output Total 400 875 750 Balance -160 -75 -750 Weight 70 kg 68.2 kg Intake: Oral 240 800 Output: Urine 400 875 750 Other: Voiding Method Urinal Urinal - Exam GENERAL EXAM: Lethargic, 74-year-old male, awake and alert and currently on 3 liters of oxygen by nasal cannula HEAD: Normocephalic and atraumatic EYES: Normal reaction of pupils, equal size. NOSE: Clear with pink turbinates. THROAT: No erythema or exudates. NECK: No masses, no JVD. CHEST: No chest wall deformity. LUNGS: Equal air entry with no crackles, wheeze, rhonchi or dullness. Breathing is nonlabored. CVS: S1 and S2 normal with COLLINS grade 3/6 murmur, irregular rhythm. No extra heart sounds ABDOMEN: No hepatosplenomegaly, active bowel sounds, no guarding or rigidity. SPINE: No scoliosis or deformity SKIN: No rashes CENTRAL NERVOUS SYSTEM: No focal deficits, tone is normal in all 4 extremities. He is lethargic and wwak EXTREMITIES: There is no peripheral edema, clubbing, or cyanosis. Peripheral pulses are intact. - Labs CBC & Chem 7: 11/13/24 06:04 11/15/24 06:47 Labs: Abnormal Lab Results - Last 24 Hours (Table) 11/15/24 Range/Units 06:47 Carbon Dioxide 31 H (22-30) mmol/L BUN 33 H (9-20) mg/dL Creatinine 1.31 H (0.66-1.25) mg/dL Glucose 107 H (74-99) mg/dL Assessment and Plan Plan: Acute exacerbation of systolic congestive heart failure secondary to Afib/RVR, improving, no significant shortness of breath. No hemodynamic instability. CHF is optimized. COPD with an FEV1 of 69% of predicted per minute nasal cannula Acute hypoxemic and hypercapnic respiratory failure, currently on 3 liters Elevated trop x3 , demand ischemia and no chest pain, Trop max 0.36 History of CAD with previous CABG and subsequent cardiac stents Ischemic cardiomyopathy with an ejection fraction of 15 to 20% and moderate MR, status post AICD. Echocardiogram shows moderate severe mitral regurgitation and ejection fraction of around 20 to 25%, 10/25/24 atrial fibrillation with RVR and he is on amiodarone drip, current the rate is controled and the patient has been maintained on anticoagulation with Eliquis on outpatient basis. Acute kidney injury and creatinine is up to 1.45 Hypertension History of hyperlipidemia History of AAA with repair Chronic kidney disease stage IIIa, recovered the renal function was normal History of hypothyroidism History of left inguinal hernia with repair History of dementia History of seizure [facility] resident, vignesh Plan: Patient is stable on 3 liters of oxygen by nasal cannula Clinically stable without any complaints A-fib is under better control, no significant tachycardia Continue metoprolol 25 mg p.o. twice a day in combination with Eliquis 5 mg p.o. twice a day. Continue Demadex 10 mg p.o. daily and Aldactone 12.5 mg p.o. daily Entresto 1 tablet twice a day Farxiga 10 mg p.o. daily Monitor renal function as the patient has a component of acute kidney injury, renal function is already improved. Continue bronchodilators, the patient is currently on a combination of Symbicort and Spiriva Prednisone burst taper Check viral 4 Plex We will continue to follow possibly home today.
[2024-11-16 07:28] LABS: African American GFR (CKD) 76 (>60 ml/min/1.73 sqM); Anion Gap 4 mmol/L; Blood Urea Nitrogen 30 mg/dL (9-20); Calcium 8.9 mg/dL (8.4-10.2); Carbon Dioxide 31 mmol/L (22-30); Chloride 102 mmol/L (98-107); Glucose 96 mg/dL (74-99); Non-African American GFR(CKD) 66 (>60 ml/min/1.73 sqM); Sodium 137 mmol/L (137-145)
[2024-11-16 07:29] LABS: Potassium 4.3 mmol/L (3.5-5.1)
[2024-11-16 10:37] VITALS: RESP 20
[2024-11-16 14:28] VITALS: BP 100/63; PULSE 90; TEMP 98
--- NOTE | 2024-11-16 16:29 | P.PN ---
Subjective Progress Note Date: 11/16/24 Patient is a 74-year-old male with past medical history significant for coronary artery disease with CABG, ischemic cardiomyopathy with ejection fraction 15 to 20%, AICD, hypertension, hypothyroidism, COPD, seizure disorder, dementia. I believe the patient resides at an [facility] home. He has an AICD/pacemaker. Echocardiogram, October 2024 was also completed and the patient was found to have impaired ejection fraction of 20 to 25% along with severe hypokinesis of the LV, moderate severe mitral regurgitation was also noted. This patient presented to the emergency department after being discharged home on 11/09/2024. The patient presented again with worsening shortness of breath. The patient was having A- fib/flutter with secondary tachycardia. The patient was also having worsening shortness of breath. He has a chronic cough. He has chronic wheeze. No significant sputum production. The patient accordingly was brought into the hospital and he was found to be in CHF which was essentially secondary to A-fib RVR. The patient is currently on liters of oxygen by nasal cannula. The patient on amiodarone drip for rate control. He remains on 3 Suboxone by nasal cannula. He was started on diuretics and the patient is currently on Lasix 40 mg IV push every 8 hours. At the same time, the patient was started on bronchodilators with Italo vizcarra. The patient on Symbicort and Spiriva. T he patient on IV Solu-Medrol 40 mg every 12 hours. IV fluids are currently at KVO. Blood work showed a white cell count 7.2, hemoglobin 12.1 and platelet count of 176. Normal coagulation profile. The viral screen was negative. Electrolytes are all within normal limits with a BUN of 18 and a creatinine of 0.9. Calcium is at 10.3. proBNP level is at 1220. LFTs are normal. Arousable, able to communicate. Free of any chest pain. The patient has COPD with an FEV1 of 59% of predicted. On today's evaluation of 11/13/2024, the patient is feeling less short of breath compared to yesterday. No new complaints otherwise for now. Resting comfortably in bed. He has no chest pain. He remains in atrial fibrillation and rate is under much better control for now. The patient is still on anti coagulation with Eliquis. The patient was taken off the IV Lasix and the patient was started on torsemide 20 mg p.o. daily. The patient is also on a combination of Farxiga and Aldactone and metoprolol 25 mg p.o. twice a day and losartan was discontinued the patient was started on Entresto 24/26 1 tablet twice a day. His blood work showed a white cell count of 10.6 with a hemoglobin 10.6 and a platelet count of 187. BUN 35 with a creatinine 1.4 and a sodium levels at 133. He does have a component of an acute kidney injury based on today's blood work. The white cell count is at 4. On today's evaluation of 11/14/2024, the patient is feeling well. No new complaints. No chest pain. Cardiac rhythm is back to sinus. Remains on oxygen of 3 L/min nasal cannula. Remains on Symbicort and DuoNeb nebulizers [id number]. In terms of diuresis, the patient is currently on a combination of Demadex 10 mg p.o. Aldactone 12.5 mg p.o. daily. Regarding his cardiomyopathy, I will placed on Entresto 24/26 1 tablet twice a day. He is also on metoprolol 25 mg p.o. twice a day. He is on Farxiga 10 mg p.o. daily. He is also on long-term anticoagulation with Eliquis. The white cell count of 10.6 with a hemoglobin of 10.6 and a platelet count of 187. Electrolytes from today shows a sodium level of 135, BUN 36 with a creatinine of 1.2. Potassium level is at 4.1. No other new complaints otherwise for now. On 11/15/2024, the patient is stable, no new complaints. Remains on 3 L of oxygen by nasal cannula. CHF is being optimized. Atrial fibrillation is controlled and the patient has no significant tachycardia. The patient remains on Symbicort and Spiriva and the patient will be also started on a prednisone burst taper. Cardiac medications remain unchanged. Remains on a combination of Demadex and Aldactone. BUN is 33 with a creatinine of 1.3. Rest of the electrolytes are all within normal limits. On 11/16/2024, the patient has no specific complaints. Remains on oxygen 3 L/min nasal cannula. Remains in atrial fibrillation. Medications remain unchanged. No cough no sputum production. No chest tightness. No wheezing. His dyspnea is at his baseline. Electrolytes show a BUN of 30 and a creatinine is improved and is down to 1.1. Sodium levels at 137 and a potassium level is at 4.3. Objective - Vital Signs Vital signs: Vital Signs Temp 96.9 F L 11/16/24 10:30 Pulse 80 11/16/24 12:21 Resp 20 11/16/24 10:30 BP 114/72 11/16/24 10:30 Pulse Ox 100 11/16/24 10:30 FiO2 Intake & Output 11/15/24 11/16/24 11/16/24 18:59 06:59 18:59 Output Total 1450 1400 Balance -1450 -1400 Weight 69.2 kg Output: Urine 1450 1400 Other: Voiding Method Toilet Urinal - Exam GENERAL EXAM: Lethargic, 74-year-old male, awake and alert and currently on 3 liters of oxygen by nasal cannula HEAD: Normocephalic and atraumatic EYES: Normal reaction of pupils, equal size. NOSE: Clear with pink turbinates. THROAT: No erythema or exudates. NECK: No masses, no JVD. CHEST: No chest wall deformity. LUNGS: Equal air entry with no crackles, wheeze, rhonchi or dullness. Breathing is nonlabored. CVS: S1 and S2 normal with COLLINS grade 3/6 murmur, irregular rhythm. No extra heart sounds ABDOMEN: No hepatosplenomegaly, active bowel sounds, no guarding or rigidity. SPINE: No scoliosis or deformity SKIN: No rashes CENTRAL NERVOUS SYSTEM: No focal deficits, tone is normal in all 4 extremities. He is lethargic and wwak EXTREMITIES: There is no peripheral edema, clubbing, or cyanosis. Peripheral pulses are intact. - Labs CBC & Chem 7: 11/13/24 06:04 11/16/24 06:48 Labs: Abnormal Lab Results - Last 24 Hours (Table) 11/16/24 Range/Units 06:48 Carbon Dioxide 31 H (22-30) mmol/L BUN 30 H (9-20) mg/dL Assessment and Plan Plan: Acute exacerbation of systolic congestive heart failure secondary to Afib/RVR, improving, no significant shortness of breath. No hemodynamic instability. CHF is optimized. COPD with an FEV1 of 69% of predicted per minute nasal cannula Acute hypoxemic and hypercapnic respiratory failure, currently on 3 liters Elevated trop x3 , demand ischemia and no chest pain, Trop max 0.36 History of CAD with previous CABG and subsequent cardiac stents Ischemic cardiomyopathy with an ejection fraction of 15 to 20% and moderate MR, status post AICD. Echocardiogram shows moderate severe mitral regurgitation and ejection fraction of around 20 to 25%, 10/25/24 atrial fibrillation with RVR and he is on amiodarone drip, current the rate is controled and the patient has been maintained on anticoagulation with Eliquis on outpatient basis. Acute kidney injury and creatinine is up to 1.45 Hypertension History of hyperlipidemia History of AAA with repair Chronic kidney disease stage IIIa, recovered the renal function was normal History of hypothyroidism History of left inguinal hernia with repair History of dementia History of seizure [facility] resident, vignesh Plan: The patient is to be discharged home today. Patient is stable on 3 liters of oxygen by nasal cannula Clinically stable without any complaints A-fib is under better control, no significant tachycardia. No other significant cardiac arrhythmias. Continue metoprolol 25 mg p.o. twice a day in combination with Eliquis 5 mg p.o. twice a day. Continue Demadex 10 mg p.o. daily and Aldactone 12.5 mg p.o. daily Entresto 1 tablet twice a day Farxiga 10 mg p.o. daily Monitor renal function as the patient has a component of acute kidney injury, renal function is already improved. Further drop in the creatinine level on today's blood work. Continue bronchodilators, the patient is currently on a combination of Symbicort and Spiriva Prednisone burst taper at the time of discharge Check viral 4 Plex Possible home today.
--- NOTE | 2024-11-16 17:50 | P.DS ---
Providers Date of admission: 11/12/24 00:17 Expected date of discharge: 11/16/24 Attending physician: Juan Bhatt Consults: 11/12/24 00:17 Consult Physician Routine Consulting Provider: Arben Juarez Reason/Comments: copd Do you want consulting provider notified?: Yes Primary care physician: Denys Quispe MD Hospital Course: Chief Complaint: Short of breath pleasant 74-year-old male, follows with visiting physicians Dr. Quispe. With a past medical history of CAD status post CABG x 4 followed by stent placement x 2 , nonischemic cardiomyopathy status post AICD placement, hypertension, hyperlipidemia, COPD, hypothyroidism, anxiety with depression, schizoaffective disorder, schizophrenia, and nicotine dependence. Lives at [facility]. Patient just in the hospital discharged on November 09. Patient presented again to the ER via EMS. Patient states he woke up in a panic short of breath. [place] scared. Patient also found to be in atrial flutter/tachycardia. Placed on IV amiodarone by cardiology. Still visibly short of breath. Has a cough. Wheezing. No sputum. Decreased appetite. To had his breakfast this morning. November 13: Admitted with CHF exacerbation and atrial flutter fibrillation. Also COPD exacerbation. Patient on DuoNeb. Symbicort. IV Solu-Medrol. Entresto added by cardiology. Also Aldactone. IV Lasix switched over to Demadex. Eating fair. A-fib controlled. Creatinine gone from 0.94-1.45. November 14: Breathing better. Will switch to p.o. prednisone. Per disease case manager rn K[facility] legal guardian patient will have to go to rehab now. Patient has been quite upset about the same. Otherwise eating 50-75 %. IV Lasix been switched over to oral Demadex and Aldactone. Entresto added. November 15: Sitting up bed. Breathing stable. [facility] social worker aide informed me that patient's been denied long-term care. Legal guardian and social worker aide looking into alternative placement. Otherwise patient stable November 16: Patient stable. Spoke to [facility] social worker aide. She spoke to the legal guardian's office. Patient will return to [place]. 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 Possible smoker. At [facility] Physical examination: VITAL SIGNS: 98, 90, 20, 100/63, 99% 3 L GENERAL: Sitting up in bed, comfortable EYES: Pupils equal. Conjunctiva jameson l. HEENT: External appearance of nose and ears normal, oral cavity grossly normal. Slight decrease in hearing NECK: JVD not raised; masses not palpable. HEART: First and second heart sounds are normal; no edema. LUNGS:[ Respiratory rate normal diminished breath sounds, decreased wheezing ABDOMEN: Soft, nontender, liver spleen not palpable, no masses palpable. PSYCH: Alert and oriented x3; mood and affect slightly anxious l. MUSCULOSKELETAL:No Clubbing/cyanosis;muscles-grossly intact INVESTIGATIONS, reviewed in the clinical context: November 16: Potassium 4.3 creatinine 1.11 November 15: Potassium 4.3 BUN 33 creatinine 1.31 November 14: Potassium 4.1 BUN 36 creatinine 1.26 November 13: White count 10.6 hemoglobin 10.6 platelets 187 sodium 133 potassium 4 BUN 35 creatinine 1.45 November 11, 2024: White count 7.2 hemoglobin 12.1 platelets 136 sodium 136 potassium 4.5 BUN 18 creatinine 0.94 Troponin I 0.048, 0.040, 0.036 proBNP 1220 EKG tracing personally reviewed by me-atrial flutter/tachycardia Chest x-ray film personally reviewed by me-cardiomegaly. Venous prominence nicotine Previous studies 2D echocardiogram: EF 15 to 20%. Global hypokinesia. Moderate mitral regurgitation. Assessment and Plan -Acute on chronic systolic heart failure exacerbation, secondary to ischemic systolic dysfunction EF 15 to 20%:: Better Received IV Lasix. Demadex 10 mg a day and Aldactone 12.5 a day. I's and O's. Fluid restriction . Follow labs. Entresto. -New onset atrial flutter fibrillation with rapid ventricular rate on presentation. Currently rate controlled IV amiodarone discontinued Eliquis. Lopressor 25 mg twice daily. Cardiology following -Acute hypoxic respiratory failure combination of COPD exacerbation, pneumonia, CHF: I improved Patient was on BiPAP. Now down to 3 L. Incentive spirometry -Moderate mitral regurgitation -CAD status post CABG x 4 and stent placement x 2 Aspirin -Essential hypertension Lopressor-, -Chronic nicotine dependence, cigarette smoker Patient states he goes out on his own to buy cigarettes Nicotine patch -Acute kidney injury combination of prerenal and ATN Follow renal function -Chronic kidney disease stage 2-3 likely nephrosclerosis Follow renal function -Hyperlipidemia Lipitor -Hypothyroidism Levothyroxine 100 mcg daily. -COPD, with acute exacerbation: In a current smoker: Better DuoNeb 4 times daily. Symbicort. IV Solu-Medrol given. Discharged on prednisone taper -Chronic hypoxic respiratory failure from underlying COPD Home oxygen, 2 L -Full code -Public guardian-[facility] Disposition: Assisted living, [place] Past Medical History Past Medical History: Coronary Artery Disease (CAD), Heart Failure, COPD, Dementia, Hyperlipidemia, Hypertension, Myocardial Infarction ([place]), Seizure Disorder, Syncope, Thyroid Disorder Additional Past Medical History / Comment(s): Ischemic cardiomyopathy, EF 20- 25%, last seizure about 2 yrs ago, hypothyroid.neuropathy "WHEN HE WORKED HE HAD A CRUSHING INJURY -COLLAPSED LUNGS C/T AND HAS CHRONIC BACK PAIN"" pt states he is schizophrenic/bipolar. TRIPLE A REPAIR AUG 2022 Last Myocardial Infarction Date:: unk History of Any Multi-Drug Resistant Organisms: None Reported Past Surgical History: AICD, Back Surgery, Coronary Bypass/CABG, Heart Catheterization, Heart Catheterization With Stent Additional Past Surgical History / Comment(s): 1995 CABG 4 vessel in [place], has had 2"HEART CATHS/had 2 STENTS after cabg sx.pt stated they were done in [facility]. "sx on tailbone, cortisone injections, devin inguinal hernia repair Past Anesthesia/Blood Transfusion Reactions: No Reported Reaction Date of Last Stent Placement:: 1995 Type of Cardiac Device: AICD Device Placement Date:: 1995 in [facility] Past Psychological History: Anxiety, Depression, Schizoaffective Disorder, Schizophrenia Smoking Status: Current every day smoker Past Alcohol Use History: None Reported Past Drug Use History: None Reported Plan - Discharge Summary Discharge Rx Participant: No New Discharge Prescriptions: New Torsemide [Demadex] 10 mg PO DAILY #30 tab Sacubitril/Valsartan [Entresto 24 mg-26 mg Tablet] 1 each PO Q12H #60 tab Nicotine 14Mg/24Hr Patch [Habitrol] 1 patch TRANSDERM DAILY #30 patch Spironolactone [Aldactone] 12.5 mg PO DAILY #30 tab predniSONE 10 mg PO DAILY #30 tab Continue Cyanocobalamin (Vitamin B-12) [Vitamin B-12] 1,000 mcg PO DAILY@0800 Acetaminophen [Tylenol 8 Hour] 650 mg PO TID@0800,1400,2000 Atorvastatin Calcium [Lipitor] 40 mg PO HS@1999 Budesonide-Formot 160-4.5 Mcg [Symbicort 160-4.5 Mcg Inhaler] 2 puff INHALATION RT-BID@0800,1999 Budesonide 0.5 mg INHALATION RT-BID@0900,1800 HYDROcodone/APAP 5-325MG [Bynum 5-325] 1 tab PO Q6HR PRN #10 tab PRN Reason: Pain Ipratropium-Albuterol Nebulize [Duoneb 0.5 mg-3 mg/3 ml Soln] 3 ml INHALATION RT-QID cilostazoL [Pletal] 100 mg PO BID@1000,1999 Folic Acid 0.4 mg PO DAILY@0800 Levothyroxine Sodium [Synthroid] 100 mcg PO DAILY@0700 Mirtazapine 30 mg PO HS@1999 Nitroglycerin Sl Tabs [Nitrostat] 0.4 mg SUBLINGUAL Q5M PRN 90 Days #100 tab PRN Reason: Chest Pain Dapagliflozin Propanediol [Farxiga] 10 mg PO DAILY@0800 Melatonin 10 mg PO HS@1999 Sennosides/Docusate Sodium [Senna-S 8.6-50 mg Tablet] 2 tab PO HS@1999 Apixaban [Eliquis] 5 mg PO BID@08,1999 busPIRone HCl [Buspar] 10 mg PO BID@08,1999 Tiotropium 2.5 Mcg/Puff [Spiriva Respimat 2.5 Mcg] 2 puff INHALATION RT- DAILY@0800 Pantoprazole Sodium [Protonix] 20 mg PO AC-BID@08,1999 Diclofenac Sodium Gel [Voltaren 1% Gel] 4 gm TOPICAL QID@08,12,16,20 Aspirin 81 mg PO DAILY@0800 Changed Metoprolol Tartrate [Lopressor] 25 mg PO BID@08,1999 #0 Discontinued Losartan [Cozaar] 25 mg PO DAILY@0800 Cetirizine HCl [Zyrtec] 10 mg PO HS@1999 Isosorbide Mononitrate ER [Imdur] 30 mg PO DAILY@0800 Discharge Medication List Cyanocobalamin (Vitamin B-12) [Vitamin B-12] 1,000 mcg PO DAILY@0800 08/23/22 [H istory] Acetaminophen [Tylenol 8 Hour] 650 mg PO TID@0800,1400,199909/17/23 [History] Atorvastatin Calcium [Lipitor] 40 mg PO HS@199909/17/23 [History] Folic Acid 0.4 mg PO DAILY@0800 09/17/23 [History] Levothyroxine Sodium [Synthroid] 100 mcg PO DAILY@0700 09/17/23 [History] Mirtazapine 30 mg PO HS@199909/17/23 [History] Nitroglycerin Sl Tabs [Nitrostat] 0.4 mg SUBLINGUAL Q5M PRN 90 Days #100 tab 09/21/23 [Rx] Budesonide-Formot 160-4.5 Mcg [Symbicort 160-4.5 Mcg Inhaler] 2 puff INHALATION RT-BID@799,199910/16/23 [History] Dapagliflozin Propanediol [Farxiga] 10 mg PO DAILY@0800 10/16/23 [History] Budesonide 0.5 mg INHALATION RT-BID@0900,1800 03/03/24 [History] HYDROcodone/APAP 5-325MG [Bynum 5-325] 1 tab PO Q6HR PRN #10 tab 04/10/24 [Rx] Ipratropium-Albuterol Nebulize [Duoneb 0.5 mg-3 mg/3 ml Soln] 3 ml INHALATION RT-QID 04/13/24 [History] Melatonin 10 mg PO HS@199904/13/24 [History] Sennosides/Docusate Sodium [Senna-S 8.6-50 mg Tablet] 2 tab PO HS@199904/24/24 [History] Apixaban [Eliquis] 5 mg PO BID@0800,199910/24/24 [History] busPIRone HCl [Buspar] 10 mg PO BID@0800,199910/24/24 [History] Diclofenac Sodium Gel [Voltaren 1% Gel] 4 gm TOPICAL QID@08,12,16,20 11/08/24 [History] Pantoprazole Sodium [Protonix] 20 mg PO AC-BID@0800,199911/08/24 [History] Tiotropium 2.5 Mcg/Puff [Spiriva Respimat 2.5 Mcg] 2 puff INHALATION RT- DAILY@0825 [History] cilostazoL [Pletal] 100 mg PO BID@11/08/24 [History] Aspirin 81 mg PO DAILY@79911/12/24 [History] Metoprolol Tartrate [Lopressor] 25 mg PO BID@799,1999 #0 11/14/24 [Rx] Nicotine 14Mg/24Hr Patch [Habitrol] 1 patch TRANSDERM DAILY #30 patch 11/14/24 [Rx] Sacubitril/Valsartan [Entresto 24 mg-26 mg Tablet] 1 each PO Q12H #60 tab 11/14/24 [Rx] Spironolactone [Aldactone] 12.5 mg PO DAILY #30 tab 11/14/24 [Rx] Torsemide [Demadex] 10 mg PO DAILY #30 tab 11/14/24 [Rx] predniSONE 10 mg PO DAILY #30 tab 11/14/24 [Rx] Follow up Appointment(s)/Referral(s): Vincent Madden MD [Medical Doctor] - 1 Week Denys Quispe MD [Primary Care Provider] - 1-2 days Patient Instructions/Handouts: Heart Failure (DC), COPD (Chronic Obstructive Pulmonary Disease) (DC) Discharge Disposition: OTHER INSTITUTION NOT DEFINED
== END 2024-11-16 15:50 | disposition home or self-care (01) | DRG 291 ==
LOC: EC 23:21 → 4SSUR 11-12 00:17 → 3SCARD 11-12 03:46 → 4SSUR 11-16 10:14
PROVIDERS: ADMIT Hospitalist; ATTEND Hospitalist
PROC: 3E033RZ Introduction of Antiarrhythmic into Peripheral Vein, Percutaneous Approach (ICD-10-PCS; principal; 2024-11-12)
PROC: 5A09457 Assistance with Respiratory Ventilation, 24-96 Consecutive Hours, Continuous Positive Airway Pressure (ICD-10-PCS; 2024-11-12)
DX: I13.0 Hypertensive heart and chronic kidney disease with heart failure and stage 1 through stage 4 chronic kidney disease, or unspecified chronic kidney disease (principal); I50.23 Acute on chronic systolic (congestive) heart failure; J18.9 Pneumonia, unspecified organism; J96.21 Acute and chronic respiratory failure with hypoxia; N17.0 Acute kidney failure with tubular necrosis; J96.02 Acute respiratory failure with hypercapnia; J96.01 Acute respiratory failure with hypoxia; I47.19 Other supraventricular tachycardia; I48.0 Paroxysmal atrial fibrillation; J44.1 Chronic obstructive pulmonary disease with (acute) exacerbation; F03.93 Unspecified dementia, unspecified severity, with mood disturbance; N18.30 Chronic kidney disease, stage 3 unspecified; G40.909 Epilepsy, unspecified, not intractable, without status epilepticus; I27.20 Pulmonary hypertension, unspecified; F32.A Depression, unspecified; E03.9 Hypothyroidism, unspecified; I73.9 Peripheral vascular disease, unspecified; I08.1 Rheumatic disorders of both mitral and tricuspid valves; I48.92 Unspecified atrial flutter; J44.0 Chronic obstructive pulmonary disease with (acute) lower respiratory infection; F03.94 Unspecified dementia, unspecified severity, with anxiety; I48.3 Typical atrial flutter; I42.8 Other cardiomyopathies; F17.210 Nicotine dependence, cigarettes, uncomplicated; I25.10 Atherosclerotic heart disease of native coronary artery without angina pectoris; I25.5 Ischemic cardiomyopathy; E78.5 Hyperlipidemia, unspecified; Z95.5 Presence of coronary angioplasty implant and graft; Z95.810 Presence of automatic (implantable) cardiac defibrillator; Z79.890 Hormone replacement therapy; Z88.6 Allergy status to analgesic agent; Z88.0 Allergy status to penicillin; Z88.7 Allergy status to serum and vaccine; Z86.79 Personal history of other diseases of the circulatory system; Z79.82 Long term (current) use of aspirin; I25.2 Old myocardial infarction; Z79.02 Long term (current) use of antithrombotics/antiplatelets; Z79.51 Long term (current) use of inhaled steroids; Z79.84 Long term (current) use of oral hypoglycemic drugs
CPT/HCPCS: 71045; 80048; 80053; 83605; 83735; 83880; 84100; 84484; 85025; 85610; 85730; 87636; 93005; 94640; 94760; 96365; 96366; 96375; 96376; 99291

== ENCOUNTER 2024-11-27 16:56 | Inpatient (IN) | payer MEDICARE, OTHER ==
--- NOTE | 2024-11-27 17:31 | ED ---
Extremity Problem HPI - General Chief complaint: Extremity Problem,Nontraumatic Stated complaint: devin leg pain Time Seen by Provider: 11/27/24 17:08 Source: patient, RN notes reviewed Mode of arrival: ambulatory Limitations: no limitations - History of Present Illness Initial comments: This is a 74-year-old male with history of dementia, CAD, DE, PAD presenting for bilateral lower extremity burning sensation (10/10) for the past 4 days. Patient endorses chronic history spanning decades regarding lower extremity pain, described as "fire". States pain worsens when standing/ambulating. Patient states pain originally started over 40 years ago when a refrigeration unit fell onto his tailbone with ongoing lower extremity pain and vascular obstruction causing chronic issues. Patient states pain has worsened significantly since last summer.. Patient states he still has not followed up with pain management clinic for long-term management of his lower extremity pain. Denies fever, chills, dyspnea, chest pain, abdominal pain, N/V/D. MD Complaint: extremity pain Onset/Timin -: hour(s) Location: bilateral lower extremity History of Same: Yes Radiation: proximal Severity scale (1-10): 10 Quality: burning Consistency: constant Improves with: immobilization Worsens with: weight bearing, walking Associated Symptoms: denies other symptoms - Related Data Home Medications Medication Instructions Recorded Confirmed Cyanocobalamin (Vitamin B-12) 1,000 mcg PO DAILY@0800 08/23/22 11/12/24 [Vitamin B-12] Acetaminophen [Tylenol 8 Hour] 650 mg PO TID@0800,1400,199909/17/23 11/12/24 Atorvastatin Calcium [Lipitor] 40 mg PO HS@199909/17/23 11/12/24 Folic Acid 0.4 mg PO DAILY@0800 09/17/23 11/12/24 Levothyroxine Sodium [Synthroid] 100 mcg PO DAILY@0700 09/17/23 11/12/24 Mirtazapine 30 mg PO HS@199909/17/23 11/12/24 Budesonide-Formot 160-4.5 Mcg 2 puff INHALATION RT-BID@0800,199910/16/23 11/12/24 [Symbicort 160-4.5 Mcg Inhaler] Dapagliflozin Propanediol [Farxiga] 10 mg PO DAILY@0800 10/16/23 11/12/24 Budesonide 0.5 mg INHALATION RT-BID@0900,1800 03/03/24 11/12/24 Ipratropium-Albuterol Nebulize 3 ml INHALATION RT-QID 04/13/24 11/12/24 [Duoneb 0.5 mg-3 mg/3 ml Soln] Melatonin 10 mg PO HS@199904/13/24 11/12/24 Sennosides/Docusate Sodium 2 tab PO HS@199904/24/24 11/12/24 [Senna-S 8.6-50 mg Tablet] Apixaban [Eliquis] 5 mg PO BID@0800,199910/24/24 11/12/24 busPIRone HCl [Buspar] 10 mg PO BID@0800,199910/24/24 11/12/24 Diclofenac Sodium Gel [Voltaren 1% 4 gm TOPICAL QID@08,12,16,11/08/24 11/12/24 Gel] Pantoprazole Sodium [Protonix] 20 mg PO AC-BID@08,199911/08/24 11/12/24 Tiotropium 2.5 Mcg/Puff [Spiriva 2 puff INHALATION RT-DAILY@79911/08/24 11/12/24 Respimat 2.5 Mcg] cilostazoL [Pletal] 100 mg PO BID@1000,199911/08/24 11/12/24 Aspirin 81 mg PO DAILY@0800 11/12/24 11/12/24 Previous Rx's Medication Instructions Recorded Nitroglycerin Sl Tabs [Nitrostat] 0.4 mg SUBLINGUAL Q5M PRN 90 Days 09/21/23 #100 tab HYDROcodone/APAP 5-325MG [[place] 1 tab PO Q6HR PRN #10 tab 04/10/24 5-325] Metoprolol Tartrate [Lopressor] 25 mg PO BID@799,1999 #0 11/14/24 Nicotine 14Mg/24Hr Patch [Habitrol] 1 patch TRANSDERM DAILY #30 patch 11/14/24 Sacubitril/Valsartan [Entresto 24 1 each PO Q12H #60 tab 11/14/24 mg-26 mg Tablet] Spironolactone [Aldactone] 12.5 mg PO DAILY #30 tab 11/14/24 Torsemide [Demadex] 10 mg PO DAILY #30 tab 11/14/24 predniSONE 10 mg PO DAILY #30 tab 11/14/24 Allergies Allergy/AdvReac Type Severity Reaction Status Date / Time morphine Allergy Anaphylaxis Verified 11/27/24 17:04 Penicillins Allergy Swelling Verified 11/27/24 17:04 on entire body Influenza Virus Vaccines AdvReac Unknown Verified 11/27/24 17:04 pneumococcal vaccine AdvReac Unknown Verified 11/27/24 17:04 Review of Systems ROS Statement: Those systems with pertinent positive or pertinent negative responses have been documented in the HPI. ROS Other: All systems not noted in ROS Statement are negative. Past Medical History Past Medical History: Coronary Artery Disease (CAD), Heart Failure, COPD, Dementia, Hyperlipidemia, Hypertension, Myocardial Infarction (DE), Seizure Disorder, Syncope, Thyroid Disorder Additional Past Medical History / Comment(s): Ischemic cardiomyopathy, EF 20- 25%, last seizure about 2 yrs ago, hypothyroid.neuropathy "WHEN HE WORKED HE HAD A CRUSHING INJURY -COLLAPSED LUNGS C/T AND HAS CHRONIC BACK PAIN"" pt states he is schizophrenic/bipolar. TRIPLE A REPAIR AUG 2022 Last Myocardial Infarction Date:: unk History of Any Multi-Drug Resistant Organisms: None Reported Past Surgical History: AICD, Back Surgery, Coronary Bypass/CABG, Heart Catheterization, Heart Catheterization With Stent Additional Past Surgical History / Comment(s): 1995 CABG 4 vessel in [place], has had 2"HEART CATHS/had 2 STENTS after cabg sx.pt stated they were done in [facility] [place]. "sx on tailbone, cortisone injections, devin inguinal hernia repair Past Anesthesia/Blood Transfusion Reactions: No Reported Reaction Date of Last Stent Placement:: 1995 Type of Cardiac Device: AICD Device Placement Date:: 1995 in [facility] Past Psychological History: Anxiety, Depression, Schizoaffective Disorder, Schizophrenia Smoking Status: Current every day smoker Past Alcohol Use History: None Reported Past Drug Use History: None Reported - Past Family History Mother Family Medical History: Respiratory Disorder Additional Family Medical History / Comment(s): Mother had TB Father Additional Family Medical History / Comment(s): Father was an alcoholic, was k illed in a motor vehicle accident General Exam Limitations: no limitations General appearance: alert, in no apparent distress Head exam: Present: atraumatic, normocephalic, normal inspection Eye exam: Present: normal appearance, PERRL, EOMI. Absent: scleral icterus, conjunctival injection, periorbital swelling ENT exam: Present: normal exam, mucous membranes moist Neck exam: Present: normal inspection. Absent: tenderness, meningismus, lymphadenopathy Respiratory exam: Present: normal lung sounds bilaterally. Absent: respiratory distress, wheezes, rales, rhonchi, stridor Cardiovascular Exam: Present: regular rate, normal rhythm, normal heart sounds. Absent: systolic murmur, diastolic murmur, rubs, gallop, clicks GI/Abdominal exam: Present: soft, normal bowel sounds. Absent: distended, tenderness, guarding, rebound, rigid Extremities exam: Present: full ROM, tenderness (Positive diffuse bilateral pedal tenderness), normal capillary refill, other (Palpable but barely discernible bilateral dorsalis pedis pulses. Lower extremities are pale but warm with capillary refill less than 2 seconds bilaterally. Neurological and motor function intact bilaterally.). Absent: pedal edema, joint swelling, calf tenderness Back exam: Present: normal inspection Neurological exam: Present: alert, oriented X3, CN II-XII intact Psychiatric exam: Present: normal affect, normal mood Skin exam: Present: warm, dry, intact, normal color. Absent: rash Course Vital Signs 11/27/24 11/27/24 11/27/24 17:02 17:05 18:39 Temperature 98 F 98.4 F 98 F Pulse Rate 80 78 57 L Respiratory 18 16 Rate Blood Pressure 105/58 105/58 103/69 O2 Sat by Pulse 98 99 97 Oximetry Medical Decision Making - Medical Decision Making Was pt. sent in by a medical professional or institution (, PA, [employer], urgent care, hospital, or long term...) When possible be specific @ -No Did you speak to anyone other than the patient for history (EMS, parent, family, police, friend...)? What history was obtained from this source @ -No Did you review nursing and triage notes (agree or disagree)? Why? @ -I reviewed and agree with nursing and triage notes Were old charts reviewed (outside hosp., previous admission, EMS record, old EKG , old radiological studies, urgent care reports/EKG's, long term records)? Report findings @ -No old charts were reviewed Differential Diagnosis (chest pain, altered mental status, abdominal pain women, abdominal pain men, vaginal bleeding, weakness, fever, dyspnea, syncope, headache, dizziness, GI bleed, back pain, seizure, CVA, palpatations, mental health, musculoskeletal)? @ -Differential Musculoskeletal Muscular strain, contusion, ligament sprain, fracture, arthritis, septic arthritis, bursitis, cellulitis, muscle spasm, nerve compression, DVT, arterial occlusion, herpes zoster, electrolyte abnormality, tumor.... This is not meant to be in all inclusive list EKG interpreted by me (3pts min.). @ -Not done X-rays interpreted by me (1pt min.). @ -None done CT interpreted by me (1pt min.). @ -None done U/S interpreted by me (1pt. min.). @ -None done What testing was considered but not performed or refused? (CT, X-rays, U/S, labs)? Why? @ -Attempted to order lower extremity arterial ultrasound; ultrasound called stating they are unable to perform this imaging at this time. What meds were considered but not given or refused? Why? @ -None Did you discuss the management of the patient with other professionals (professionals i.e. , PA, [employer], lab, RT, psych nurse, social science teacher, parts washer, teacher, surveillance officer, telephonic case manager)? Give summary @ -Spoke to Dr. Bhatt who advised renal diet, repeat potassium and consult nephrology. Was smoking cessation discussed for >3mins.? @ -No Was critical care preformed (if so, how long)? @ -No Were there social determinants of health that impacted care today? How? (Homelessness, low income, unemployed, alcoholism, drug addiction, transpo rtation, low edu. Level, literacy, decrease access to med. care, mcc, rehab)? @ -No Was there de-escalation of care discussed even if they declined (Discuss DNR or withdrawal of care, Hospice)? DNR status @ -No What co-morbidities impacted this encounter? (DM, HTN, Smoking, COPD, CAD, Cancer, CVA, ARF, Chemo, Hep., AIDS, mental health diagnosis, sleep apnea, morbid obesity)? @ -None Was patient admitted / discharged? Hospital course, mention meds given and route, prescriptions, significant lab abnormalities, going to OR and other pertinent info. @ -Lab work shows hyperkalemia with 5.7 with MARSHALL (BUN 48, creatinine 1.87, GFR 35). Negative lactic acid. Ultrasound states they are unable to perform arterial Doppler ultrasound. Patient initially provided IM Dilaudid, Toradol and lidocaine patch with significant pain relief noted by patient. Basic lab work obtained with discovery of abnormal labs. P.o. Lokelma provided along with IV D50, insulin, calcium gluconate as well as all inhaled albuterol. IV normal saline drip provided as well as Dilaudid and p.o. Tylenol. Spoke to Dr. Bhatt who advised renal diet, repeat potassium and consult nephrology. Discussed patient with Dr. Quintero. Undiagnosed new problem with uncertain prognosis? @ -No Drug Therapy requiring intensive monitoring for toxicity (Heparin, Nitro, Insulin, Cardizem)? @ -No Were any procedures done? @ -No Diagnosis/symptom? @ -MARSHALL, hyperkalemia, peripheral neuralgia Acute, or Chronic, or Acute on Chronic? @ -Acute on chronic Uncomplicated (without systemic symptoms) or Complicated (systemic symptoms)? @ -Uncomplicated Side effects of treatment? @ -No Exacerbation, Progression, or Severe Exacerbation? @ -No Poses a threat to life or bodily function? How? (Chest pain, USA, DE, pneumonia, PE, COPD, DKA, ARF, appy, cholecystitis, CVA, Diverticulitis, Homicidal, Suicidal, threat to staff... and all critical care pts) @ -MARSHALL, hyperkalemia - Lab Data Result diagrams: 11/27/24 18:29 11/27/24 18:29 Lab Results 11/27/24 11/27/24 11/27/24 Range/Units 18:29 18:29 18:29 WBC 10.79 H (4.50-10.00) 10*3/uL RBC 4.88 (4.40-5.60) 10*6/uL Hgb 13.4 (13.0-17.0) g/dL Hct 41.1 (39.6-50.0) % MCV 84.2 (80.0-97.0) fL MCH 27.5 (27.0-32.0) pg MCHC 32.6 (32.0-37.0) g/dL Plt Count 200 (140-440) 10*3/uL MPV 9.5 (9.5-12.2) fL Immature Gran % (Auto) 1.6 % Neutrophils % 68.6 % Lymphocytes % 21.6 % Monocytes % 7.9 % Eosinophils % 0.1 % Basophils % 0.2 % Immature Gran # 0.17 H (0.00-0.04) 10*3/uL Neutrophils # 7.41 (1.80-7.70) 10*3/uL Lymphocytes # 2.33 (0.90-5.00) 10*3/uL Monocytes # 0.85 (0.20-1.00) 10*3/uL Eosinophils # 0.01 L (0.04-0.35) 10*3/uL Basophils # 0.02 (0.00-0.10) 10*3/uL Sodium 134 L (137-145) mmol/L Potassium 5.7 H (3.5-5.1) mmol/L Chloride 101 (98-107) mmol/L Carbon Dioxide 25 (22-30) mmol/L Anion Gap 8 mmol/L BUN 48 H (9-20) mg/dL Creatinine 1.87 H (0.66-1.25) mg/dL Est GFR (CKD-EPI)AfAm 41 (>60 ml/min/1.73 sqM) Est GFR (CKD-EPI)NonAf 35 (>60 ml/min/1.73 sqM) Glucose 112 H (74-99) mg/dL Plasma Lactic Acid Rigoberto 1.4 (0.7-2.0) mmol/L Calcium 10.1 (8.4-10.2) mg/dL Total Bilirubin 0.4 (0.2-1.3) mg/dL AST 26 (17-59) U/L ALT 21 (4-49) U/L Alkaline Phosphatase 43 (38-126) U/L Total Protein 6.5 (6.3-8.2) g/dL Albumin 4.0 (3.5-5.0) g/dL Disposition Clinical Impression: Neuralgia, MARSHALL (acute kidney injury), Hyperkalemia Disposition: ADMITTED IP TO [facility] Condition: Good Is patient prescribed a controlled substance at d/c from ED?: No Referrals: Denys Quispe MD [Primary Care Provider] - 1-2 days Time of Disposition: 19:30 Decision Date: 11/27/24 Decision Time: 19:30
[2024-11-27] MEDS: LIDOCAINE 4% PATCH TOPICAL ONE (17:37)
[2024-11-27] MEDS: KETOROLAC 15 MG/ML 1 ML VIAL IM STA (17:37)
[2024-11-27] MEDS: HYDROmorphone 0.5 MG/0.5 ML SYRINGE IM STA (17:38)
[2024-11-27 18:52] LABS: Basophils # (A) 0.02 10*3/uL (0.00-0.10); Basophils % (A) 0.2 %; Eosinophils # (A) 0.01 10*3/uL (0.04-0.35); Eosinophils % (A) 0.1 %; HCT 41.1 % (39.6-50.0); HGB 13.4 g/dL (13.0-17.0); Lymphocytes # (A) 2.33 10*3/uL (0.90-5.00); Lymphocytes % (A) 21.6 %; MCH 27.5 pg (27.0-32.0); MCHC 32.6 g/dL (32.0-37.0); MCV 84.2 fL (80.0-97.0); Mean Platelet Volume 9.5 fL (9.5-12.2); Monocytes # (A) 0.85 10*3/uL (0.20-1.00); Monocytes % (A) 7.9 %; Neutrophils # (A) 7.41 10*3/uL (1.80-7.70); Neutrophils % (A) 68.6 %; Platelet Count 200 10*3/uL (140-440); RBC 4.88 10*6/uL (4.40-5.60); RDW 18.4 % (11.5-14.5); WBC 10.79 10*3/uL (4.50-10.00)
[2024-11-27 19:20] LABS: ALT 21 U/L (4-49); AST 26 U/L (17-59); African American GFR (CKD) 41 (>60 ml/min/1.73 sqM); Alkaline Phosphatase 43 U/L (38-126); Anion Gap 8 mmol/L; Blood Urea Nitrogen 48 mg/dL (9-20); Calcium 10.1 mg/dL (8.4-10.2); Carbon Dioxide 25 mmol/L (22-30); Chloride 101 mmol/L (98-107); Glucose 112 mg/dL (74-99); Non-African American GFR(CKD) 35 (>60 ml/min/1.73 sqM); Potassium 5.7 mmol/L (3.5-5.1); Sodium 134 mmol/L (137-145); Total Bilirubin 0.4 mg/dL (0.2-1.3); Total Protein 6.5 g/dL (6.3-8.2)
[2024-11-27] MEDS ORDERED: NALOXONE 0.4 MG/ML 1 ML VIAL IV PRN (19:44)
[2024-11-27] MEDS ORDERED: HYDROmorphone 0.5 MG/0.5 ML SYRINGE IVP PRN (19:44)
[2024-11-27] MEDS ORDERED: NITROGLYCERIN SL TABS 0.4 MG TAB SUBLINGUAL PRN (19:47)
[2024-11-27] MEDS: CALCIUM GLUCONATE IN NACL 1 GM in SALINE 1 100ML.BAG IVPB ONE (19:48)
[2024-11-27] MEDS: SODIUM ZIRCONIUM CYCLOSILICATE 10 GM PACKET PO ONE (19:52)
[2024-11-27] MEDS: DEXTROSE 50% SYRINGE 50 ML IVP ONE (20:02)
[2024-11-27] MEDS: INSULIN REGULAR 100 UNIT/ML VIAL (IV) IV ONE (20:06)
[2024-11-27] MEDS: HYDROmorphone 0.5 MG/0.5 ML SYRINGE IVP STA (20:09)
[2024-11-27] MEDS: SODIUM CHLORIDE 0.9% 1,000 ML IV STA (20:10)
[2024-11-27] MEDS: ALBUTEROL NEB (CONC) 2.5 MG/0.5 ML INHALATION ONE (20:12)
[2024-11-27] MEDS: ACETAMINOPHEN TAB 500 MG TAB PO STA (20:13)
[2024-11-27] MEDS: IPRATROPIUM-ALBUTEROL 3 ML NEB INHALATION SCH (21:22)
[2024-11-27] MEDS: METOPROLOL TARTRATE 25 MG TAB PO SCH (22:19)
[2024-11-27] MEDS: SACUBITRIL/VALSARTAN 24 MG-26 MG TABLET PO SCH (22:20)
[2024-11-27] MEDS: ATORVASTATIN 40 MG TAB PO SCH (22:20)
[2024-11-27] MEDS: busPIRone HCl 10 MG TAB PO SCH (22:20)
[2024-11-27] MEDS: MELATONIN 5 MG TABLET PO SCH (22:20)
[2024-11-27] MEDS: SENNOSIDES-DOCUSATE SODIUM 1 EACH TAB PO SCH (22:20)
[2024-11-27] MEDS: APIXABAN 5 MG TAB PO SCH (22:20)
[2024-11-27] MEDS: cilostazoL 100 MG TAB PO SCH (22:21)
[2024-11-27] MEDS: ASPIRIN 325 MG TAB PO STA (23:02)
[2024-11-27] MEDS: MIRTAZAPINE 15 MG TAB PO SCH (23:02)
--- NOTE | 2024-11-27 23:02 | P.HPIM ---
History of Present Illness H&P Date: 11/27/24 Chief Complaint: Low back pain pleasant 74-year-old male, follows with visiting physicians Dr. Quispe. With a past medical history of CAD status post CABG x 4 followed by stent placement x 2, nonischemic cardiomyopathy status post AICD placement, hypertension, hyperlipidemia, COPD, hypothyroidism, anxiety with depression, schizoaffective disorder, schizophrenia, and nicotine dependence. Atrial flutter/tachycardia. CHF Lives at [facility]. Patient presents with pain in the sacral area. Patient states she has had pain on and off there for over a year. Pain may come on suddenly then go sharply down both the legs. Patient feels weak in his legs. May last anywhere from 2 to 4 hours. Today had the same thing. Decided to come in. He has been seen by people outside the hospital before but does not remember what has he been told. Patient continues smoke about 6 to 8 cigarettes a day. Does use a walker. No involvement of the bowel or urine. Patient in the ER was found to have hyperkalemia and worsening renal function. Patient received insulin, glucose, albuterol nebulizer, Lokelma. 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 Possible smoker. At [facility]. Does use a walker Physical examination: VITAL SIGNS: 96.9, 86, 20, 114 x 72, 100% 3 to GENERAL: Reclining in bed, bit anxious EYES: Pupils equal. Conjunctiva jameson l. HEENT: External appearance of nose and ears normal, oral cavity grossly normal. Slight decrease in hearing NECK: JVD not raised; masses not palpable. HEART: First and second heart sounds are normal; no edema. LUNGS:[ Respiratory rate normal diminished breath sounds, ABDOMEN: Soft, nontender, liver spleen not palpable, no masses palpable. PSYCH: Alert and oriented x3; mood and affect slightly anxious l. MUSCULOSKELETAL:No Clubbing/cyanosis;muscles-grossly intact Neurological: Able to straight leg raising both legs about 15 degrees. Knee reflex not exacerbate INVESTIGATIONS, reviewed in the clinical context: November 27, 2024: White count 10.7 hemoglobin 13.4 platelets 200 sodium 134 potassium 5.7 BUN 48 creatinine 1.87 Previous studies 2D echocardiogram: EF 15 to 20%. Global hypokinesia. Moderate mitral regurgitation. November 16: BUN 30 creatinine 1.11 Assessment and Plan - Hyperkalemia, secondary to being on Aldactone and Entresto. Received Lokelma, glucose, insulin, albuterol in the ER. DC Aldactone Entresto. Renal diet - Acute kidney injury creatinine was 1.11 on November 16. Today 1.87 Hold off Aldactone and Entresto. Gentle hydration. - chronic systolic heart failure exacerbation, secondary to ischemic systolic dysfunction EF 15 to 20%:: Hold off Aldactone and Entresto for now. Gentle hydration because of CHF - Patient has episodes of pain in the sacral area radiating down the legs making his legs feel weak. And sharp pain. Intermittent. Last anywhere from 2 to 4 hours. Has not present for [address] scan lumbosacral spine. Consult Ortho -Persistent atrial flutter fibrillation Telemetry. IV amiodarone discontinued Eliquis. Lopressor 25 mg twice daily. -Acute hypoxic respiratory failure combination of COPD exacerbation, pneumonia, CHF: I improved Patient was on BiPAP. Now down to 3 L. Incentive spirometry -Moderate mitral regurgitation -CAD status post CABG x 4 and stent placement x 2 Aspirin -Essential hypertension Lopressor-, -Chronic nicotine dependence, cigarette smoker Nicotine patch -Chronic kidney disease stage 2-3 likely nephrosclerosis Follow renal function -Hyperlipidemia Lipitor -Hypothyroidism Levothyroxine 100 mcg daily. -COPD, In a current smoker: DuoNeb 4 times daily. Symbicort. -Chronic hypoxic respiratory failure from underlying COPD Home oxygen, 2 L -Full code -Public guardian-[facility] Given the complexity and severity of patient's condition expect the patient to be in the hospital at least for 2 overnights Past Medical History Past Medical History: Coronary Artery Disease (CAD), Heart Failure, COPD, Dementia, Hyperlipidemia, Hypertension, Myocardial Infarction ([place]), Seizure Disorder, Syncope, Thyroid Disorder Additional Past Medical History / Comment(s): Ischemic cardiomyopathy, EF 20- 25%, last seizure about 2 yrs ago, hypothyroid.neuropathy "WHEN HE WORKED HE HAD A CRUSHING INJURY -COLLAPSED LUNGS C/T AND HAS CHRONIC BACK PAIN"" pt states he is schizophrenic/bipolar. TRIPLE A REPAIR AUG 2022 Last Myocardial Infarction Date:: unk History of Any Multi-Drug Resistant Organisms: None Reported Past Surgical History: AICD, Back Surgery, Coronary Bypass/CABG, Heart Catheterization, Heart Catheterization With Stent Additional Past Surgical History / Comment(s): 1995 CABG 4 vessel in [place], has had 2"HEART CATHS/had 2 STENTS after cabg sx.pt stated they were done in [facility]. "sx on tailbone, cortisone injections, devin inguinal hernia repair Past Anesthesia/Blood Transfusion Reactions: No Reported Reaction Date of Last Stent Placement:: 1995 Type of Cardiac Device: AICD Device Placement Date:: 1995 in [facility] Past Psychological History: Anxiety, Depression, Schizoaffective Disorder, Schizophrenia Additional Psychological History / Comment(s): . Smoking Status: Current every day smoker Past Alcohol Use History: None Reported Additional Past Alcohol Use History / Comment(s): . Past Drug Use History: None Reported Additional Drug Use History / Comment(s): Pt states he smokes marijuana on occasion. - Past Family History Mother Family Medical History: Respiratory Disorder Additional Family Medical History / Comment(s): Mother had TB Father Additional Family Medical History / Comment(s): Father was an alcoholic, was killed in a motor vehicle accident Medications and Allergies Home Medications Medication Instructions Recorded Confirmed Type Cyanocobalamin (Vitamin B-12) 1,000 mcg PO DAILY@0800 08/23/22 11/27/24 History [Vitamin B-12] Acetaminophen [Tylenol 8 Hour] 650 mg PO TID@0800,1400,199909/17/23 11/27/24 History Atorvastatin Calcium [Lipitor] 40 mg PO HS@199909/17/23 11/27/24 History Folic Acid 0.4 mg PO DAILY@0800 09/17/23 11/27/24 History Levothyroxine Sodium [Synthroid] 100 mcg PO DAILY@0700 09/17/23 11/27/24 History Mirtazapine 30 mg PO HS@199909/17/23 11/27/24 History Nitroglycerin Sl Tabs [Nitrostat] 0.4 mg SUBLINGUAL Q5M PRN 90 Days 09/21/23 11/27/24 Rx #100 tab Budesonide-Formot 160-4.5 Mcg 2 puff INHALATION RT-BID@0800,199910/16/23 11/27/24 History [Symbicort 160-4.5 Mcg Inhaler] Dapagliflozin Propanediol [Farxiga] 10 mg PO DAILY@0800 10/16/23 11/27/24 History Budesonide 0.5 mg INHALATION RT-BID@0900,1800 03/03/24 11/27/24 History Ipratropium-Albuterol Nebulize 3 ml INHALATION RT-QID 04/13/24 11/27/24 History [Duoneb 0.5 mg-3 mg/3 ml Soln] Apixaban [Eliquis] 5 mg PO BID@0800,199910/24/24 11/27/24 History busPIRone HCl [Buspar] 10 mg PO BID@0800,199910/24/24 11/27/24 History Diclofenac Sodium Gel [Voltaren 1% 4 gm TOPICAL QID@08,12,16,11/08/24 11/27/24 History Gel] Pantoprazole Sodium [Protonix] 20 mg PO AC-BID@08,199911/08/24 11/27/24 History Tiotropium 2.5 Mcg/Puff [Spiriva 2 puff INHALATION RT-DAILY@79911/08/24 11/27/24 History Respimat 2.5 Mcg] Aspirin 81 mg PO DAILY@79911/12/24 11/27/24 History Metoprolol Tartrate [Lopressor] 25 mg PO BID@0800,1999 #0 11/14/24 11/27/24 Rx Pentoxifylline [TRENtal] 400 mg PO BID-W/MEALS 11/27/24 11/27/24 History Sacubitril/Valsartan [Entresto 24 1 tab PO Q12HR@08,199911/27/24 11/27/24 History mg-26 mg Tablet] Sennosides/Docusate Sodium [Senna 2 tab PO HS@199911/27/24 11/27/24 History Plus 8.6-50 mg Tablet] Spironolactone [Aldactone] 12.5 mg PO DAILY@0800 11/27/24 11/27/24 History Torsemide [Demadex] 10 mg PO DAILY@79911/27/24 11/27/24 History guaiFENesin [Mucinex] 600 mg PO DAILY@0800 11/27/24 11/27/24 History predniSONE See Taper PO DAILY 11/27/24 11/27/24 History Allergies Allergy/AdvReac Type Severity Reaction Status Date / Time morphine Allergy Anaphylaxis Verified 11/27/24 20:12 Penicillins Allergy Swelling Verified 11/27/24 20:12 on entire body Influenza Virus Vaccines AdvReac Unknown Verified 11/27/24 20:12 pneumococcal vaccine AdvReac Unknown Verified 11/27/24 20:12 Physical Exam Vitals: Vital Signs Temp Pulse Pulse Resp BP BP Pulse Ox 11/27/24 21:20 97.4 F L 106 H 18 108/72 100 11/27/24 21:00 104 H 17 117/78 96 11/27/24 20:50 100 11/27/24 20:15 85 11/27/24 20:00 96 17 108/69 95 11/27/24 19:38 84 17 101/71 98 11/27/24 18:39 98 F 57 L 16 103/69 97 11/27/24 17:05 98.4 F 78 105/58 99 11/27/24 17:02 98 F 80 18 105/58 98 Intake and Output 11/27/24 11/27/24 11/27/24 06:59 14:59 22:59 Other: Weight 63.503 kg Results CBC & Chem 7: 11/27/24 18:29 11/27/24 18:29 Labs: Abnormal Lab Results - Last 24 Hours (Table) 11/27/24 11/27/24 Range/Units 18:29 18:29 WBC 10.79 H (4.50-10.00) 10*3/uL Immature Gran # 0.17 H (0.00-0.04) 10*3/uL Eosinophils # 0.01 L (0.04-0.35) 10*3/uL Sodium 134 L (137-145) mmol/L Potassium 5.7 H (3.5-5.1) mmol/L BUN 48 H (9-20) mg/dL Creatinine 1.87 H (0.66-1.25) mg/dL Glucose 112 H (74-99) mg/dL Thrombosis Risk Factor Assmnt - Choose All That Apply Each Factor Represents 1 point: Abnormal pulmonary function (COPD) Other Risk Factors: Yes Each Risk Factor Represents 2 Points: Age 61-74 years Other congenital or acquired thrombophilia - If yes, enter type in comment: No Thrombosis Risk Factor Assessment Total Risk Factor Score: 3 Thrombosis Risk Factor Assessment Level: Moderate Risk
[2024-11-28 00:10] LABS: ALT 20 U/L (4-49); AST 30 U/L (17-59); African American GFR (CKD) 37 (>60 ml/min/1.73 sqM); Albumin 3.9 g/dL (3.5-5.0); Albumin/Globulin Ratio 1.6; Alkaline Phosphatase 41 U/L (38-126); Anion Gap 11 mmol/L; Blood Urea Nitrogen 47 mg/dL (9-20); Carbon Dioxide 21 mmol/L (22-30); Chloride 100 mmol/L (98-107); Globulin 2.4 g/dL; Glucose 136 mg/dL (74-99); Non-African American GFR(CKD) 32 (>60 ml/min/1.73 sqM); Potassium 4.8 mmol/L (3.5-5.1); Sodium 132 mmol/L (137-145); Total Bilirubin 0.5 mg/dL (0.2-1.3); Total Protein 6.3 g/dL (6.3-8.2)
--- NOTE | 2024-11-28 02:24 | XR ---
EXAM: XR Chest, 1 View CLINICAL HISTORY: ITS.REASON XR Reason: Short of breath TECHNIQUE: Frontal view of the chest. COMPARISON: No relevant prior studies available. IMPRESSION: Cardiomegaly with mild right basilar opacity
[2024-11-28] MEDS: HYDROcodone/APAP 5-325MG 1 EACH TAB PO PRN (03:16)
[2024-11-28] MEDS: SODIUM CHLORIDE 0.45% 1,000 ML IV SCH (04:43)
[2024-11-28 04:55] LABS: African American GFR (CKD) 37 (>60 ml/min/1.73 sqM); Anion Gap 11 mmol/L; Blood Urea Nitrogen 49 mg/dL (9-20); Calcium 9.8 mg/dL (8.4-10.2); Carbon Dioxide 22 mmol/L (22-30); Chloride 98 mmol/L (98-107); Glucose 84 mg/dL (74-99); Non-African American GFR(CKD) 32 (>60 ml/min/1.73 sqM); Potassium 4.5 mmol/L (3.5-5.1); Sodium 131 mmol/L (137-145)
[2024-11-28 06:11] LABS: Glucose,Whole Blood 88 mg/dL (70-110)
[2024-11-28] MEDS: PANTOPRAZOLE 40 MG TABLET PO SCH (06:59)
[2024-11-28] MEDS ORDERED: DAPAGLIFLOZIN PROPANEDIOL 10 MG TABLET PO SCH (08:00)
[2024-11-28] MEDS: BUDESONIDE 0.5 MG/2 ML NEBU INHALATION SCH (08:34)
[2024-11-28] MEDS: NICOTINE 14MG/24HR PATCH TRANSDERM SCH (08:41)
[2024-11-28] MEDS: ASPIRIN 81 MG PO SCH (08:41)
--- NOTE | 2024-11-28 08:52 | CT ---
EXAMINATION TYPE: CT lumbar spine wo con DATE OF EXAM: 11/28/2024 8:12 AM COMPARISON: 04/12/2024. CLINICAL INDICATION: Male, 74 years old with history of sacral pain rad to both legs with int weaknes s; PHH, sacral pain radiating down TECHNIQUE: CT lumbar spine without contrast. Coronal and sagittal reconstructions performed. CT DLP: 761.4 mGycm, Automated exposure control for dose reduction was used. FINDINGS: Exophytic cyst posterior left kidney measuring 1.9 cm and large lower pole right renal cyst measuring 6.7 cm both redemonstrated. Endovascular aortic stent graft redemonstrated. The anterior wall of the [place] sac extends outside t he field of view. Gross size is similar from 04/12/2024 when measuring width diameter at 4.6 cm. AP di ameter is greater than 5 cm. Sigmoid diverticulosis. Vertebral body heights are preserved and alignment is maintained. Hypertrophic facet arthropathy lower lumbar spine greater towards the right. No large focal disc herniation appreciated by CT or significant spinal canal stenosis. There is mild bilateral neural foraminal narrowing at both L4-L5 and L5-S1. No high-grade foraminal c ompromise is appreciated by CT. Degenerative bony ankylosis right SI joint. IMPRESSION : 1. Hypertrophic facet arthropathy lower lumbar spine. 2. Changes result in mild bilateral neural foraminal narrowing at both L4-L5 and L5-S1. 3. No large focal disc herniation or significant spinal canal or neuroforaminal stenosis is seen. 4. Degenerative bony ankylosis right SI joint. 5. Partially visualized aortobiiliac endovascular stent graft. [place] sac diameter roughly stable est imated at just over 5 cm. [facility], , 11/28/2024 8:49 AM
[2024-11-28] MEDS ORDERED: SPIRONOLACTONE 25 MG TAB PO SCH (09:00)
--- NOTE | 2024-11-28 10:39 | US ---
EXAMINATION TYPE: US carotid duplex BILAT DATE OF EXAM: 11/28/2024 COMPARISON: CTA head and neck 12/30/2018 CLINICAL INDICATION: Male, 74 years old with history of dizziness; Portable ultrasound. Additional History: .... TECHNIQUE: Grayscale, color Doppler and spectral Doppler evaluation of the bilateral carotid systems and vertebral arteries. Indirect Doppler criteria was utilized. FINDINGS: EXAM MEASUREMENTS: RIGHT: Peak Systolic Velocity (PSV) cm/sec ----- Right CCA: 46.9 ----- Right ICA: 89.2 ----- Right ECA: 248.6 ICA/CCA ratio: 1.9 RIGHT: End Diastole cm/sec ----- Right CCA: 11.3 ----- Right ICA: 23.2 ----- Right ECA: 15.8 LEFT: Peak Systolic Velocity (PSV) cm/sec ----- Left CCA: 65.3 ----- Left ICA: 89.7 ----- Left ECA: 208.2 ICA/CCA ratio: 1.4 LEFT: End Diastole cm/sec ----- Left CCA: 8.6 ----- Left ICA: 22.6 ----- Left ECA: 20.0 VERTEBRALS (direction of flow): Right Vertebral: Antegrade Left Vertebral: Antegrade Rhythm: Arrhythmia FIELD CONTROL INSPECTOR NOTES: Wall thickening. Plaque visualized bilateral bulbs. Elevated bilateral ECA veloc ities. Color Doppler imaging shows patency with blood flow throughout the carotid artery. Spectral waveforms are within normal limits. IMPRESSION: 1. Less than 50% stenosis at the origins of bilateral internal carotid arteries. 2. Moderate stenosis of the bilateral external carotid arteries. Criteria for Assigning % of Stenosis / Diameter reduction (Estimation based on the indirect measurements of the internal carotid artery velocities (ICA PSV). 1. Normal (no stenosis)=ICA PSV < 180 cm/s: ratio < 2.0: ICA EDV<40 cm/s. 2. Less than 50% stenosis=ICA PSV < 180 cm/s: ratio < 2.0: ICA EDV<40 cm/s. 3. 50 to 69% stenosis=ICA PSV of 180 to 230 cm/s: ration 2.0 ? 4.0: ICA EDV 40-100 cm/s. PSV 125-180 cm/sec and ICA/CCA PSV Ratio ? 2.0 is also consistent with 50-69% stenosis 4. Greater than 70% stenosis to near occlusion= ICA PSV > 230 cm/s: ratio > 4.0: ICA EDV > 100 cm/s. 5. Near occlusion= ICA PSV velocities may be low or undetectable: variable ratio and ICA EDV. 6. Total occlusion=unable to detect flow. [facility], , 11/28/2024 10:37 AM
[2024-11-28 11:04] LABS: African American GFR (CKD) 41 (>60 ml/min/1.73 sqM); Anion Gap 3 mmol/L; Blood Urea Nitrogen 51 mg/dL (9-20); Calcium 9.4 mg/dL (8.4-10.2); Carbon Dioxide 27 mmol/L (22-30); Chloride 101 mmol/L (98-107); Glucose 99 mg/dL (74-99); Non-African American GFR(CKD) 35 (>60 ml/min/1.73 sqM); Potassium 4.3 mmol/L (3.5-5.1); Sodium 131 mmol/L (137-145)
[2024-11-28 11:32] LABS: Glucose,Whole Blood 91 mg/dL (70-110)
--- NOTE | 2024-11-28 11:36 | P.NPCON ---
History of Present Illness - Reason for Consult acute renal failure - History of Present Illness Patient is a 74-year-old male with history of coronary artery disease, COPD, cardiomyopathy status post AICD placement. Patient is admitted to the hospital with complaints of increased weakness and patient states that he was not able to walk. He denies any fever chills nausea vomiting. Serum potassium was 5.7 on admission and is 4.3 now. Serum creatinine was 1.87 and increased to 2.0. It is down to 1.8 today. Previous creatinine was 1.1 on 11/16/2024. Maintained on IV fluids at 50 cc an hour. Chest x-ray does not show any significant pulmonary vascular congestion. Patient has been voiding Past Medical History Past Medical History: Coronary Artery Disease (CAD), Heart Failure, COPD, Dementia, Hyperlipidemia, Hypertension, Myocardial Infarction ([place]), Seizure Disorder, Syncope, Thyroid Disorder Additional Past Medical History / Comment(s): Ischemic cardiomyopathy, EF 20- 25%, last seizure about 2 yrs ago, hypothyroid.neuropathy "WHEN HE WORKED HE HAD A CRUSHING INJURY -COLLAPSED LUNGS C/T AND HAS CHRONIC BACK PAIN"" pt states he is schizophrenic/bipolar. TRIPLE A REPAIR AUG 2022 Last Myocardial Infarction Date:: unk History of Any Multi-Drug Resistant Organisms: None Reported Past Surgical History: AICD, Back Surgery, Coronary Bypass/CABG, Heart Cath eterization, Heart Catheterization With Stent Additional Past Surgical History / Comment(s): 1995 CABG 4 vessel in [place], has had 2"HEART CATHS/had 2 STENTS after cabg sx.pt stated they were done in [facility]. "sx on tailbone, cortisone injections, devin inguinal hernia repair Past Anesthesia/Blood Transfusion Reactions: No Reported Reaction Date of Last Stent Placement:: 1995 Type of Cardiac Device: AICD Device Placement Date:: 1995 in [facility] Past Psychological History: Anxiety, Depression, Schizoaffective Disorder, Schizophrenia Additional Psychological History / Comment(s): . Smoking Status: Current every day smoker Past Alcohol Use History: None Reported Additional Past Alcohol Use History / Comment(s): . Past Drug Use History: None Reported Additional Drug Use History / Comment(s): Pt states he smokes marijuana on occasion. - Past Family History Mother Family Medical History: Respiratory Disorder Additional Family Medical History / Comment(s): Mother had TB Father Additional Family Medical History / Comment(s): Father was an alcoholic, was killed in a motor vehicle accident Medications and Allergies Home Medications Medication Instructions Recorded Confirmed Type Cyanocobalamin (Vitamin B-12) 1,000 mcg PO DAILY@0800 08/23/22 11/27/24 History [Vitamin B-12] Acetaminophen [Tylenol 8 Hour] 650 mg PO TID@0800,1400,199909/17/23 11/27/24 History Atorvastatin Calcium [Lipitor] 40 mg PO HS@199909/17/23 11/27/24 History Folic Acid 0.4 mg PO DAILY@0800 09/17/23 11/27/24 History Levothyroxine Sodium [Synthroid] 100 mcg PO DAILY@0700 09/17/23 11/27/24 History Mirtazapine 30 mg PO HS@199909/17/23 11/27/24 History Nitroglycerin Sl Tabs [Nitrostat] 0.4 mg SUBLINGUAL Q5M PRN 90 Days 09/21/23 11/27/24 Rx #100 tab Budesonide-Formot 160-4.5 Mcg 2 puff INHALATION RT-BID@0800,199910/16/23 11/27/24 History [Symbicort 160-4.5 Mcg Inhaler] Dapagliflozin Propanediol [Farxiga] 10 mg PO DAILY@0800 10/16/23 11/27/24 History Budesonide 0.5 mg INHALATION RT-BID@0900,1800 03/03/24 11/27/24 History Ipratropium-Albuterol Nebulize 3 ml INHALATION RT-QID 04/13/24 11/27/24 History [Duoneb 0.5 mg-3 mg/3 ml Soln] Apixaban [Eliquis] 5 mg PO BID@0800,199910/24/24 11/27/24 History busPIRone HCl [Buspar] 10 mg PO BID@0800,199910/24/24 11/27/24 History Diclofenac Sodium Gel [Voltaren 1% 4 gm TOPICAL QID@08,12,16,20 11/08/24 11/27/24 History Gel] Pantoprazole Sodium [Protonix] 20 mg PO AC-BID@0800,199911/08/24 11/27/24 History Tiotropium 2.5 Mcg/Puff [Spiriva 2 puff INHALATION RT-DAILY@79911/08/24 11/27/24 History Respimat 2.5 Mcg] Aspirin 81 mg PO DAILY@0800 11/12/24 11/27/24 History Metoprolol Tartrate [Lopressor] 25 mg PO BID@799,1999 #0 11/14/24 11/27/24 Rx Pentoxifylline [TRENtal] 400 mg PO BID-W/MEALS 11/27/24 11/27/24 History Sacubitril/Valsartan [Entresto 24 1 tab PO Q12HR@799,199911/27/24 11/27/24 History mg-26 mg Tablet] Sennosides/Docusate Sodium [Senna 2 tab PO HS@199911/27/24 11/27/24 History Plus 8.6-50 mg Tablet] Spironolactone [Aldactone] 12.5 mg PO DAILY@0800 11/27/24 11/27/24 History Torsemide [Demadex] 10 mg PO DAILY@0800 11/27/24 11/27/24 History guaiFENesin [Mucinex] 600 mg PO DAILY@0811/27/24 11/27/24 History predniSONE See Taper PO DAILY 11/27/24 11/27/24 History Allergies Allergy/AdvReac Type Severity Reaction Status Date / Time morphine Allergy Anaphylaxis Verified 11/27/24 20:12 Penicillins Allergy Swelling Verified 11/27/24 20:12 on entire body Influenza Virus Vaccines AdvReac Unknown Verified 11/27/24 20:12 pneumococcal vaccine AdvReac Unknown Verified 11/27/24 20:12 Physical Exam Vitals: Vital Signs Temp Pulse Pulse Resp BP BP Pulse Ox 11/28/24 08:46 76 11/28/24 08:35 78 96 11/28/24 08:00 97.6 F 72 18 88/54 98 11/28/24 05:54 91/57 11/28/24 05:28 85/53 11/28/24 05:10 78 18 11/28/24 05:07 97.5 F L 78 18 80/49 96 11/28/24 03:58 84/51 11/28/24 02:00 20 11/27/24 22:55 101 H 18 100/68 98 11/27/24 22:40 104 H 86/50 95 11/27/24 21:20 97.4 F L 106 H 18 108/72 100 11/27/24 21:00 104 H 17 117/78 96 11/27/24 20:50 100 11/27/24 20:15 85 11/27/24 20:00 96 17 108/69 95 11/27/24 19:38 84 17 101/71 98 11/27/24 18:39 98 F 57 L 16 103/69 97 11/27/24 17:05 98.4 F 78 105/58 99 11/27/24 17:02 98 F 80 18 105/58 98 Intake and Output 11/27/24 11/28/24 11/28/24 22:59 06:59 14:59 Intake Total 150 10 10 Output Total 200 Balance 150 -190 10 Intake: IV 10 10 Invasive Line 2 10 10 Oral 150 Output: Urine 200 Other: Weight 63.503 kg 68.5 kg Patient is awake, comfortable, alert oriented x 3. No acute distress Examination of the heart S1 and S2 Examination of the lungs bilateral breath sounds are heard Abdomen is soft nontender Examination of lower extremities shows no significant edema HAND PATCHER exam grossly intact Results - Lab Results Most recent lab results Calcium 9.4 mg/dL (8.4-10.2) 11/28/24 10:19 11/27/24 18:29 11/28/24 10:19 Assessment and Plan Assessment: 1. Acute kidney injury, ATN from hypotension and volume depletion. Continue with IV fluids. Rule out urine retention. Check UA and check ultrasound of the kidneys 2. Hyperkalemia serum with acute kidney injury. Patient was maintained on Entresto and Aldactone, currently on hold. 3. Hypothyroidism 4. Nonischemic cardiomyopathy with EF of 25 to 20% Plan: 500 cc fluid bolus x 1 Increase IV fluids Changed to normal saline given the hyponatremia Check UA Check ultrasound of the kidneys Repeat labs in a.m. Thank you for the consultation. We will continue to follow the patient with you during his hospitalization.
--- NOTE | 2024-11-28 12:49 | P.CRDCN ---
History of Present Illness History of present illness: HISTORY OF PRESENT ILLNESS: This is a 74-year-old male with a past medical history significant for coronary artery disease, congestive heart failure, hypertension, hyperlipidemia, seizure disorder, AICD implantation, AAA repair, lightheadedness, and paroxysmal atrial fibrillation. Patient follows in the office with Dr. Smith. We have been asked to see the patient in consultation for chest pain. Patient examined at the bedside. Patient states he was feeling fine at home but then suddenly he will have episodes where his legs want to give out on him. He states he has pain everywhere and then the episode starts. He reports occasional shortness of breath and lightneadedness. He reports hes been eating and drinking well at home. He states he checks his blood pressure at home and states its normal at home but unable to verify what readings he has been getting at home. He reports some chest discomfort when he is breathing heavy. Denies CP at the time of examination. Patients blood pressure has been lower with a systolic in the 80s. DIAGNOSTICS: - EKG reveals atrial fib/flutter with controlled ventricular rate - Chest xray cardiomegaly with mild right basilar opacity. - Laboratory data: WBC 10.79. Hemoglobin 13.4. Platelet count 200. Sodium 131. Potassium 4.5. BUN 49. Creatinine 2.03. Troponin negative x 3. - Current home cardiac medications include Demadex 10 mg daily, Aldactone 12.5 mg daily, Entresto 24-26 mg twice a day, metoprolol tartrate 25 mg twice a day, Lipitor 40 mg at night, aspirin 81 mg daily, Eliquis 5 mg twice a day. - Most recent echocardiogram obtained in October 2024 revealed ejection fraction 2024%, severe hypokinesis more noted in inferior apical wall, mild pulmonary hypertension, moderate to severe MR, mild to moderate tricuspid regurgitation - Cardiac catheterization history: 09/20/2023 revealing [employer] CAD including 100% proximal LAD stenosis, 75% proximal circumflex stenosis, 100% RCA stenosis. Occluded SVG to PDA, patent FIORE to LAD, SVG to diagonal with 95% stenosis. No other remaining grafts noted by aortogram. Status post PCI SVG to diagonal approximately and drug-eluting stent at distal SVG into diagonal REVIEW OF SYSTEMS: At the time of my exam: CONSTITUTIONAL: Denies fever or chills. HEENT: Denies blurred vision, vision changes, or eye pain. Denies hemoptysis CARDIOVASCULAR: Denies chest pain. Denies orthopnea. Denies PND. Denies palpitations RESPIRATORY: Denies shortness of breath. GASTROINTESTINAL: Denies abdominal pain. Denies nausea or vomiting. HEMATOLOGIC: Denies bleeding disorders. GENITOURINARY: Denies any blood in urine. SKIN: Denies pruitis. Denies rash. PHYSICAL EXAM: VITAL SIGNS: Reviewed. GENERAL: Well-developed in no acute distress. HEENT: Head is normocephalic. Pupils are equal, round. Sclerae anicteric. Mucous membranes of the mouth are moist. Neck supple. No JVD or thyromegaly LUNGS: Respirations even and unlabored. Lungs essentially clear to auscultation bilaterally. HEART: Irregular rate and rhythm. S1 and S2 heard. ABDOMEN: Soft. Nondistended. Nontender. EXTREMITIES: Normal range of motion. No clubbing or cyanosis. Peripheral pulses intact. No lower extremity edema NEUROLOGIC: Awake and alert. Oriented x 3. ASSESSMENT: Hypotension Chest pain, patient currently denies CP, no evidence of ACS Acute kidney injury Coronary artery disease with previous CABG and subsequent stenting Ischemic cardiomyopathy, 20 to 25% Paroxysmal atrial fibrillation/typical atrial flutter Mild pulmonary hypertension Moderate to severe mitral regurgitation Chronic congestive heart failure with reduced EF Hypertension Hyperlipidemia History of AICD implantation History of AAA repair History of seizure disorder History of lightheadedness Nicotine dependence PLAN: No need to repeat echo as this was performed in October 2024 Hold Entresto, Demadex Aldactone Monitor kidney function Obtain EKG Interrogate pacemaker Obtain carotid Doppler Further recommendations pending patient course Nurse practitioner note has been reviewed by physician. Signing provider agrees with the documented findings, assessment, and plan of care documented by SUPERVISOR PROCESS TESTING as a scribe. Past Medical History Past Medical History: Coronary Artery Disease (CAD), Heart Failure, COPD, Dementia, Hyperlipidemia, Hypertension, Myocardial Infarction ([place]), Seizure Disorder, Syncope, Thyroid Disorder Additional Past Medical History / Comment(s): Ischemic cardiomyopathy, EF 20- 25%, last seizure about 2 yrs ago, hypothyroid.neuropathy "WHEN HE WORKED HE HAD A CRUSHING INJURY -COLLAPSED LUNGS C/T AND HAS CHRONIC BACK PAIN"" pt states he is schizophrenic/bipolar. TRIPLE A REPAIR AUG 2022 Last Myocardial Infarction Date:: unk History of Any Multi-Drug Resistant Organisms: None Reported Past Surgical History: AICD, Back Surgery, Coronary Bypass/CABG, Heart Catheterization, Heart Catheterization With Stent Additional Past Surgical History / Comment(s): 1995 CABG 4 vessel in [place], has had 2"HEART CATHS/had 2 STENTS after cabg sx.pt stated they were done in [facility]. "sx on tailbone, cortisone injections, devin inguinal hernia repair Past Anesthesia/Blood Transfusion Reactions: No Reported Reaction Date of Last Stent Placement:: 1995 Type of Cardiac Device: AICD Device Placement Date:: 1995 in [facility] Past Psychological History: Anxiety, Depression, Schizoaffective Disorder, Schizophrenia Additional Psychological History / Comment(s): . Smoking Status: Current every day smoker Past Alcohol Use History: None Reported Additional Past Alcohol Use History / Comment(s): . Past Drug Use History: None Reported Additional Drug Use History / Comment(s): Pt states he smokes marijuana on occasion. - Past Family History Mother Family Medical History: Respiratory Disorder Additional Family Medical History / Comment(s): Mother had TB Father Additional Family Medical History / Comment(s): Father was an alcoholic, was killed in a motor vehicle accident Medications and Allergies Home Medications Medication Instructions Recorded Confirmed Type Cyanocobalamin (Vitamin B-12) 1,000 mcg PO DAILY@0800 08/23/22 11/27/24 History [Vitamin B-12] Acetaminophen [Tylenol 8 Hour] 650 mg PO TID@0800,1400,199909/17/23 11/27/24 History Atorvastatin Calcium [Lipitor] 40 mg PO HS@199909/17/23 11/27/24 History Folic Acid 0.4 mg PO DAILY@0800 09/17/23 11/27/24 History Levothyroxine Sodium [Synthroid] 100 mcg PO DAILY@0700 09/17/23 11/27/24 History Mirtazapine 30 mg PO HS@199909/17/23 11/27/24 History Nitroglycerin Sl Tabs [Nitrostat] 0.4 mg SUBLINGUAL Q5M PRN 90 Days 09/21/23 11/27/24 Rx #100 tab Budesonide-Formot 160-4.5 Mcg 2 puff INHALATION RT-BID@0800,199910/16/23 11/27/24 History [Symbicort 160-4.5 Mcg Inhaler] Dapagliflozin Propanediol [Farxiga] 10 mg PO DAILY@0800 10/16/23 11/27/24 History Budesonide 0.5 mg INHALATION RT-BID@0900,179903/03/24 11/27/24 History Ipratropium-Albuterol Nebulize 3 ml INHALATION RT-QID 04/13/24 11/27/24 History [Duoneb 0.5 mg-3 mg/3 ml Soln] Apixaban [Eliquis] 5 mg PO BID@08,199910/24/24 11/27/24 History busPIRone HCl [Buspar] 10 mg PO BID@799,199910/24/24 11/27/24 History Diclofenac Sodium Gel [Voltaren 1% 4 gm TOPICAL QID@08,,,11/08/24 11/27/24 History Gel] Pantoprazole Sodium [Protonix] 20 mg PO AC-BID@799,199911/08/24 11/27/24 History Tiotropium 2.5 Mcg/Puff [Spiriva 2 puff INHALATION RT-DAILY@79911/08/24 11/27/24 History Respimat 2.5 Mcg] Aspirin 81 mg PO DAILY@79911/12/24 11/27/24 History Metoprolol Tartrate [Lopressor] 25 mg PO BID@08,1999 #0 11/14/24 11/27/24 Rx Pentoxifylline [TRENtal] 400 mg PO BID-W/MEALS 11/27/24 11/27/24 History Sacubitril/Valsartan [Entresto 24 1 tab PO Q12HR@08,199911/27/24 11/27/24 History mg-26 mg Tablet] Sennosides/Docusate Sodium [Senna 2 tab PO HS@199911/27/24 11/27/24 History Plus 8.6-50 mg Tablet] Spironolactone [Aldactone] 12.5 mg PO DAILY@79911/27/24 11/27/24 History Torsemide [Demadex] 10 mg PO DAILY@79911/27/24 11/27/24 History guaiFENesin [Mucinex] 600 mg PO DAILY@79911/27/24 11/27/24 History predniSONE See Taper PO DAILY 11/27/24 11/27/24 History Allergies Allergy/AdvReac Type Severity Reaction Status Date / Time morphine Allergy Anaphylaxis Verified 11/27/24 20:12 Penicillins Allergy Swelling Verified 11/27/24 20:12 on entire body Influenza Virus Vaccines AdvReac Unknown Verified 11/27/24 20:12 pneumococcal vaccine AdvReac Unknown Verified 11/27/24 20:12 Physical Exam Vitals: Vital Signs Temp Pulse Pulse Resp BP BP Pulse Ox 11/28/24 05:54 91/57 11/28/24 05:28 85/53 11/28/24 05:10 78 18 11/28/24 05:07 97.5 F L 78 18 80/49 96 11/28/24 03:58 84/51 11/28/24 02:00 20 11/27/24 22:55 101 H 18 100/68 98 11/27/24 22:40 104 H 86/50 95 11/27/24 21:20 97.4 F L 106 H 18 108/72 100 11/27/24 21:00 104 H 17 117/78 96 11/27/24 20:50 100 11/27/24 20:15 85 11/27/24 20:00 96 17 108/69 95 11/27/24 19:38 84 17 101/71 98 11/27/24 18:39 98 F 57 L 16 103/69 97 11/27/24 17:05 98.4 F 78 105/58 99 11/27/24 17:02 98 F 80 18 105/58 98 Intake and Output 11/27/24 11/28/24 11/28/24 22:59 06:59 14:59 Intake Total 150 10 Output Total 200 Balance 150 -190 Intake: IV 10 Invasive Line 2 10 Oral 150 Output: Urine 200 Other: Weight 63.503 kg 68.5 kg Results 11/27/24 18:29 11/28/24 10:19 Cardiac Enzymes 11/27/24 11/27/24 11/27/24 Range/Units 18:29 23:19 23:19 AST 26 30 (17-59) U/L Troponin I 0.020 (0.000-0.034) ng/mL 11/28/24 11/28/24 Range/Units 03:27 06:06 AST (17-59) U/L Troponin I 0.018 0.027 (0.000-0.034) ng/mL CBC 11/27/24 Range/Units 18:29 WBC 10.79 H (4.50-10.00) 10*3/uL RBC 4.88 (4.40-5.60) 10*6/uL Hgb 13.4 (13.0-17.0) g/dL Hct 41.1 (39.6-50.0) % Plt Count 200 (140-440) 10*3/uL Comprehensive Metabolic Panel 11/27/24 11/27/24 11/28/24 Range/Units 18:29 23:19 03:27 Sodium 134 L 132 L 131 L (137-145) mmol/L Potassium 5.7 H 4.8 4.5 (3.5-5.1) mmol/L Chloride 101 100 98 (98-107) mmol/L Carbon Dioxide 25 21 L 22 (22-30) mmol/L BUN 48 H 47 H 49 H (9-20) mg/dL Creatinine 1.87 H 2.03 H 2.03 H (0.66-1.25) mg/dL Glucose 112 H 136 H 84 (74-99) mg/dL Calcium 10.1 10.0 9.8 (8.4-10.2) mg/dL AST 26 30 (17-59) U/L ALT 21 20 (4-49) U/L Alkaline Phosphatase 43 41 (38-126) U/L Total Protein 6.5 6.3 (6.3-8.2) g/dL Albumin 4.0 3.9 (3.5-5.0) g/dL Current Medications Generic Name Dose Route Start Last Admin Trade Name Freq PRN Reason Stop Dose Admin Acetaminophen 650 mg 11/27/24 19:44 Acetaminophen Tab 325 Mg Tab PO Q6HR PRN Mild Pain or Fever > 100.5 Hydrocodone Bitart/Acetaminophen 1 each 11/27/24 19:47 11/28/24 03:16 Hydrocodone/Apap 5-325mg 1 Each Tab PO 1 each Q6HR PRN Administration Pain Albuterol/Ipratropium 3 ml 11/27/24 20:00 11/27/24 21:22 Ipratropium-Albuterol 3 Ml Neb INHALATION Not Given RT-QID RADHA Apixaban 5 mg 04/15/25 20:00 11/27/24 22:20 Apixaban 5 Mg Tab PO 5 mg BID@08 [facility] Administration Protocol Aspirin 81 mg 11/28/24 08:00 Aspirin 81 Mg PO DAILY@0800 [facility] Atorvastatin Calcium 40 mg 11/27/24 20:00 11/27/24 22:20 Atorvastatin 40 Mg Tab PO 40 mg HS@1999 [facility] Administration Budesonide 0.5 mg 11/28/24 09:00 Budesonide 0.5 Mg/2 Ml Nebu INHALATION RT-BID@0900,1800 [facility] Buspirone HCl 10 mg 11/27/24 20:00 11/27/24 22:20 Buspirone Hcl 10 Mg Tab PO 10 mg BID@ [facility] Administration Cilostazol 100 mg 11/27/24 20:00 11/27/24 22:21 Cilostazol 100 Mg Tab PO 100 mg BID@1000,1999 [facility] Administration Sodium Chloride 1,000 mls @ 50 mls/hr 11/27/24 23:00 11/28/24 04:43 Saline 0.45% IV 50 mls/hr .Q20H RADHA Administration Melatonin 10 mg 11/27/24 20:00 11/27/24 22:20 Melatonin 5 Mg Tablet PO 10 mg HS@1999 [facility] Administration Metoprolol Tartrate 25 mg 11/27/24 20:00 11/27/24 22:19 Metoprolol Tartrate 25 Mg Tab PO 25 mg BID@08,1999 [facility] Administration Mirtazapine 30 mg 11/27/24 20:00 11/27/24 23:02 Mirtazapine 15 Mg Tab PO Not Given HS@1999 [facility] Naloxone HCl 0.2 mg 11/27/24 19:44 Naloxone 0.4 Mg/Ml 1 Ml Vial IV Q2M PRN Opioid Reversal Nicotine 1 patch 11/28/24 09:00 Nicotine 14mg/24hr Patch TRANSDERM DAILY [facility] Nitroglycerin 0.4 mg 11/27/24 19:47 Nitroglycerin Sl Tabs 0.4 Mg Tab SUBLINGUAL Q5M PRN Chest Pain Pantoprazole Sodium 40 mg 11/28/24 07:30 11/28/24 06:59 Pantoprazole 40 Mg Tablet PO 40 mg [id number] [facility] Administration Senna/Docusate Sodium 2 each 11/27/24 20:00 11/27/24 22:20 Sennosides-Docusate Sodium 1 Each Tab PO 2 each HS@1999 [facility] Administration Intake and Output 11/27/24 11/28/24 11/28/24 22:59 06:59 14:59 Intake Total 150 10 Output Total 200 Balance 150 -190 Intake: IV 10 Invasive Line 2 10 Oral 150 Output: Urine 200 Other: Weight 63.503 kg 68.5 kg 11/27/24 18:29 11/28/24 03:27
[2024-11-28] MEDS: SODIUM CHLORIDE 0.45% 1,000 ML IV ONE (13:32)
--- NOTE | 2024-11-28 13:49 | US ---
EXAMINATION TYPE: US kidneys/renal and bladder DATE OF EXAM: 11/28/2024 COMPARISON: CT abdomen pelvis to 09/15/2024, 04/12/2024 CLINICAL INDICATION: Male, 74 years old with history of homa; hx renal cyst TECHNIQUE: Grayscale imaging of the bilateral kidneys and urinary bladder: FINDINGS: EXAM MEASUREMENTS: Right Kidney: 9.8 x 5.0 x 4.9 cm Left Kidney: 9.9 x 4.2 x 5.1 cm Right Kidney: Two anechoic lesions seen with largest lower medial = 5.2 x 5.9 x 6.5 cm Left Kidney: Two lower pole anechoic lesions seen with largest = 1.7 x 1.5 x 1.5 cm Bladder: distended, anechoic Bilateral Jets not seen There is no evidence for hydronephrosis at this point in time. No nephrolithiasis is seen. There are 2 simple cysts within the right kidney with largest measuring up to 6.5 cm. There are 2 simple cysts within the lower pole left kidney with largest measuring up to 1.7 cm. Corticomedullary differentiat ion is maintained bilaterally. The urinary bladder is anechoic. IMPRESSION: 1. No hydronephrosis or nephrolithiasis. 2. Bilateral simple renal cysts. No follow-up recommended. [facility], , 11/28/2024 1:47 PM
[2024-11-28] MEDS: SODIUM CHLORIDE 0.9% 500 ML 500 ML IV ONE (16:33)
[2024-11-28] MEDS: SODIUM CHLORIDE 0.9% 1,000 ML IV SCH (16:33)
[2024-11-28 16:35] LABS: Glucose,Whole Blood 94 mg/dL (70-110)
--- NOTE | 2024-11-28 17:47 | P.PN ---
Progress Note - Text Progress Note Date: 11/28/24 Chief Complaint: Low back pain pleasant 74-year-old male, follows with visiting physicians Dr. Quispe. With a past medical history of CAD status post CABG x 4 followed by stent placement x 2, nonischemic cardiomyopathy status post AICD placement, hypertension, hyperlipidemia, COPD, hypothyroidism, anxiety with depression, schizoaffective disorder, schizophrenia, and nicotine dependence. Atrial flutter/tachycardia. CHF Lives at assisted living [facility]. Patient presents with pain in the sacral area. Patient states she has had pain on and off there for over a year. Pain may come on suddenly then go sharply down both the legs. Patient feels weak in his legs. May last anywhere from 2 to 4 hours. Today had the same thing. Decided to come in. He has been seen by people outside the hospital before but does not remember what has he been told. Patient continues smoke about 6 to 8 cigarettes a day. Does use a walker. No involvement of the bowel or urine. Patient in the ER was found to have hyperkalemia and worsening renal function. Patient received insulin, glucose, albuterol nebulizer, Lokelma. November 28: Laying in bed. CT scan shows significant arthropathy, with neural foramina Narrowing mild. Ortho consulted. Creatinine started to come down. Had about 50% of his lunch. Getting IV fluids Active Medications Acetaminophen (Acetaminophen Tab 325 Mg Tab) 650 mg PO Q6HR PRN PRN Reason: Mild Pain or Fever > 100.5 Hydrocodone Bitart/Acetaminophen (Hydrocodone/Apap 5-325mg 1 Each Tab) 1 each PO Q6HR PRN PRN Reason: Pain Last Admin: 11/28/24 03:16 Dose: 1 each Albuterol/Ipratropium (Ipratropium-Albuterol 3 Ml Neb) 3 ml INHALATION RT-QID [facility] Last Admin: 11/28/24 15:44 Dose: 3 ml Apixaban (Apixaban 5 Mg Tab) 5 mg PO BID@0800,1999 [facility]; Protocol Aspirin (Aspirin 81 Mg) 81 mg PO DAILY@0800 [facility] Last Admin: 11/28/24 08:41 Dose: 81 mg Atorvastatin Calcium (Atorvastatin 40 Mg Tab) 40 mg PO HS@1999 [facility] Last Admin: 11/27/24 22:20 Dose: 40 mg Budesonide (Budesonide 0.5 Mg/2 Ml Nebu) 0.5 mg INHALATION RT-BID@0900,1800 [facility] Last Admin: 11/28/24 08:34 Dose: 0.5 mg Buspirone HCl (Buspirone Hcl 10 Mg Tab) 10 mg PO BID@ [facility] Last Admin: 11/28/24 08:41 Dose: 10 mg Cilostazol (Cilostazol 100 Mg Tab) 100 mg PO BID@ [facility] Last Admin: 11/28/24 08:41 Dose: 100 mg Sodium Chloride (Saline 0.9%) 1,000 mls @ 70 mls/hr IV .[id number] [facility] Last Admin: 11/28/24 16:33 Dose: 70 mls/hr Melatonin (Melatonin 5 Mg Tablet) 10 mg PO HS@1999 [facility] Last Admin: 11/27/24 22:20 Dose: 10 mg Metoprolol Tartrate (Metoprolol Tartrate 25 Mg Tab) 25 mg PO BID@ [facility] Last Admin: 11/28/24 08:41 Dose: 25 mg Mirtazapine (Mirtazapine 15 Mg Tab) 30 mg PO HS@1999 [facility] Last Admin: 11/27/24 23:02 Dose: Not Given Naloxone HCl (Naloxone 0.4 Mg/Ml 1 Ml Vial) 0.2 mg IV Q2M PRN PRN Reason: Opioid Reversal Nicotine (Nicotine 14mg/24hr Patch) 1 patch TRANSDERM DAILY [facility] Last Admin: 11/28/24 08:41 Dose: 1 patch Nitroglycerin (Nitroglycerin Sl Tabs 0.4 Mg Tab) 0.4 mg SUBLINGUAL Q5M PRN PRN Reason: Chest Pain Pantoprazole Sodium (Pantoprazole 40 Mg Tablet) 40 mg PO AC-BRKFST [facility] Last Admin: 11/28/24 06:59 Dose: 40 mg Senna/Docusate Sodium (Sennosides-Docusate Sodium 1 Each Tab) 2 each PO HS@1999 [facility] Last Admin: 11/27/24 22:20 Dose: 2 each Social history: 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 Possible smoker. At assisted living- [facility]. Does use a walker Physical examination: VITAL SIGNS: 76, 22, 102 x 63, 99% 2 L GENERAL: Reclining in bed, tired EYES: Pupils equal. Conjunctiva jameson l. HEENT: External appearance of nose and ears normal, oral cavity grossly normal. Slight decrease in hearing NECK: JVD not raised; masses not palpable. HEART: First and second heart sounds are normal; no edema. LUNGS:[ Respiratory rate normal diminished breath sounds, ABDOMEN: Soft, nontender, liver spleen not palpable, no masses palpable. PSYCH: Alert and oriented x3; mood and affect slightly anxious l. MUSCULOSKELETAL:No Clubbing/cyanosis;muscles-grossly intact Neurological: Able to straight leg raising both legs about 15 degrees. Knee reflex not exacerbate INVESTIGATIONS, reviewed in the clinical context: November 28: Potassium 4.3 BUN 51 creatinine 1.87 November 27, 2024: White count 10.7 hemoglobin 13.4 platelets 200 sodium 134 potassium 5.7 BUN 48 creatinine 1.87 Previous studies 2D echocardiogram: EF 15 to 20%. Global hypokinesia. Moderate mitral regurgitation. November 16: BUN 30 creatinine 1.11 Assessment and Plan - Hyperkalemia, secondary to being on Aldactone and Entresto. Received Lokelma, glucose, insulin, albuterol in the ER. DC Aldactone Entresto. Renal diet - Acute kidney injury creatinine was 1.11 on November 16.: Likely ATN: Slow to respond Now 1.87 Hold off Aldactone and Entresto. Gentle hydration. - chronic systolic heart failure exacerbation, secondary to ischemic systolic dysfunction EF 15 to 20%:: Hold off Aldactone and Entresto for now. Gentle hydration because of CHF - Patient has episodes of pain in the sacral area radiating down the legs making his legs feel weak. And sharp pain. Intermittent. Last anywhere from 2 to 4 hours. Has not present for [address] scan lumbosacral spine. Consult Ortho -Persistent atrial flutter fibrillation Telemetry. IV amiodarone discontinued Eliquis. Lopressor 25 mg twice daily. -Acute hypoxic respiratory failure combination of COPD exacerbation, pneumonia, CHF: I improved Patient was on BiPAP. Now down to 3 L. Incentive spirometry -Moderate mitral regurgitation -CAD status post CABG x 4 and stent placement x 2 Aspirin -Essential hypertension Lopressor-, -Chronic nicotine dependence, cigarette smoker Nicotine patch -Chronic kidney disease stage 2-3 likely nephrosclerosis Follow renal function -Hyperlipidemia Lipitor -Hypothyroidism Levothyroxine 100 mcg daily. -COPD, In a current smoker: DuoNeb 4 times daily. Symbicort. -Chronic hypoxic respiratory failure from underlying COPD Home oxygen, 2 L -Full code -Public guardian-[facility] Continue gentle hydration because of CHF. Ortho consulted. Past Medical History Past Medical History: Coronary Artery Disease (CAD), Heart Failure, COPD, Dementia, Hyperlipidemia, Hypertension, Myocardial Infarction ([place]), Seizure Disorder, Syncope, Thyroid Disorder Additional Past Medical History / Comment(s): Ischemic cardiomyopathy, EF 20- 25%, last seizure about 2 yrs ago, hypothyroid.neuropathy "WHEN HE WORKED HE HAD A CRUSHING INJURY -COLLAPSED LUNGS C/T AND HAS CHRONIC BACK PAIN"" pt states he is schizophrenic/bipolar. TRIPLE A REPAIR AUG 2022 Last Myocardial Infarction Date:: unk History of Any Multi-Drug Resistant Organisms: None Reported Past Surgical History: AICD, Back Surgery, Coronary Bypass/CABG, Heart Catheterization, Heart Catheterization With Stent Additional Past Surgical History / Comment(s): 1995 CABG 4 vessel in [place], has had 2"HEART CATHS/had 2 STENTS after cabg sx.pt stated they were done in [facility]. "sx on tailbone, cortisone injections, devin inguinal hernia repair Past Anesthesia/Blood Transfusion Reactions: No Reported Reaction Date of Last Stent Placement:: 1995 Type of Cardiac Device: AICD Device Placement Date:: 1995 in [facility] Past Psychological History: Anxiety, Depression, Schizoaffective Disorder, Schizophrenia Additional Psychological History / Comment(s): . Smoking Status: Current every day smoker Past Alcohol Use History: None Reported Additional Past Alcohol Use History / Comment(s): . Past Drug Use History: None Reported Additional Drug Use History / Comment(s): Pt states he smokes marijuana on occasion.
[2024-11-28 20:13] LABS: Glucose,Whole Blood 130 mg/dL (70-110)
[2024-11-28] MEDS: ACETAMINOPHEN TAB 325 MG TAB PO PRN (20:24)
[2024-11-28] MEDS: APIXABAN 5 MG TAB PO SCH (20:25)
[2024-11-28] MEDS: ONDANSETRON 4 MG/2 ML VIAL IVP STA (20:25)
[2024-11-29 06:15] LABS: Glucose,Whole Blood 89 mg/dL (70-110)
[2024-11-29 07:06] LABS: African American GFR (CKD) 46 (>60 ml/min/1.73 sqM); Anion Gap 6 mmol/L; Blood Urea Nitrogen 39 mg/dL (9-20); Carbon Dioxide 21 mmol/L (22-30); Chloride 105 mmol/L (98-107); Glucose 82 mg/dL (74-99); Non-African American GFR(CKD) 40 (>60 ml/min/1.73 sqM); Potassium 4.3 mmol/L (3.5-5.1); Sodium 132 mmol/L (137-145)
--- NOTE | 2024-11-29 10:51 | P.CNOR ---
History of Present Illness - [facility] Consult date: 11/29/24 Consult reason: low back pain History of present illness: Patient is a 74-year-old male who was admitted to [facility] with regards to significant pain to the bilateral lower extremities and back pain. Patient has a very detailed cardiac/vascular history. He is being followed by cardiology, internal medicine and nephrology. Our orthopedic team was consulted due to the back pain. Patient was evaluated today at bedside, he was resting comfortably in his hospital bed. Patient states that he has dealt with bilateral extremity pain for many years. He admits to a trauma that occurred many years ago where a fridge rater type unit fell and caused him to land on his tailbone. Patient states that the pain in the back and lower extremities has worsened over the last year or so. Patient normally utilizes a walker for ambulation. Patient denies any previous surgery to his cervical, thoracic or lumbar spine. Like stated above he has a very detailed cardiac/vascular history including multiple surgeries. He does admit to weakness in the bilateral lower extremities. He denies any milton weakness to the bilateral upper extremities. He admits to paresthesias to the bilateral lower extremities. He denies any numbness or tingling to the genital or perineal region. He denies any loss of bowel or bladder function. He denies any recent trauma. Review of Systems Constitutional: Reports as per [facility] Past Medical History Past Medical History: Coronary Artery Disease (CAD), Heart Failure, COPD, Dementia, Hyperlipidemia, Hypertension, Myocardial Infarction ([place]), Seizure Disorder, Syncope, Thyroid Disorder Additional Past Medical History / Comment(s): Ischemic cardiomyopathy, EF 20- 25%, last seizure about 2 yrs ago, hypothyroid.neuropathy "WHEN HE WORKED HE HAD A CRUSHING INJURY -COLLAPSED LUNGS C/T AND HAS CHRONIC BACK PAIN"" pt states he is schizophrenic/bipolar. TRIPLE A REPAIR AUG 2022 Last Myocardial Infarction Date:: unk History of Any Multi-Drug Resistant Organisms: None Reported Past Surgical History: AICD, Back Surgery, Coronary Bypass/CABG, Heart Catheterization, Heart Catheterization With Stent Additional Past Surgical History / Comment(s): 1995 CABG 4 vessel in [place], has had 2"HEART CATHS/had 2 STENTS after cabg sx.pt stated they were done in [facility]. "sx on tailbone, cortisone injections, devin inguinal hernia repair Past Anesthesia/Blood Transfusion Reactions: No Reported Reaction Date of Last Stent Placement:: 1995 Type of Cardiac Device: AICD Device Placement Date:: 1995 in [facility] Past Psychological History: Anxiety, Depression, Schizoaffective Disorder, Schizophrenia Additional Psychological History / Comment(s): . Smoking Status: Current every day smoker Past Alcohol Use History: None Reported Additional Past Alcohol Use History / Comment(s): . Past Drug Use History: None Reported Additional Drug Use History / Comment(s): Pt states he smokes marijuana on occasion. - Past Family History Mother Family Medical History: Respiratory Disorder Additional Family Medical History / Comment(s): Mother had TB Father Additional Family Medical History / Comment(s): Father was an alcoholic, was killed in a motor vehicle accident Medications and Allergies Home Medications Medication Instructions Recorded Confirmed Type Cyanocobalamin (Vitamin B-12) 1,000 mcg PO DAILY@0800 08/23/22 11/27/24 History [Vitamin B-12] Acetaminophen [Tylenol 8 Hour] 650 mg PO TID@0800,1400,199909/17/23 11/27/24 History Atorvastatin Calcium [Lipitor] 40 mg PO HS@199909/17/23 11/27/24 History Folic Acid 0.4 mg PO DAILY@0800 09/17/23 11/27/24 History Levothyroxine Sodium [Synthroid] 100 mcg PO DAILY@0700 09/17/23 11/27/24 History Mirtazapine 30 mg PO HS@199909/17/23 11/27/24 History Nitroglycerin Sl Tabs [Nitrostat] 0.4 mg SUBLINGUAL Q5M PRN 90 Days 09/21/23 11/27/24 Rx #100 tab Budesonide-Formot 160-4.5 Mcg 2 puff INHALATION RT-BID@00,199910/16/23 11/27/24 History [Symbicort 160-4.5 Mcg Inhaler] Dapagliflozin Propanediol [Farxiga] 10 mg PO DAILY@0800 10/16/23 11/27/24 History Budesonide 0.5 mg INHALATION RT-BID@0900,1800 03/03/24 11/27/24 History Ipratropium-Albuterol Nebulize 3 ml INHALATION RT-QID 04/13/24 11/27/24 History [Duoneb 0.5 mg-3 mg/3 ml Soln] Apixaban [Eliquis] 5 mg PO BID@08,199910/24/24 11/27/24 History busPIRone HCl [Buspar] 10 mg PO BID@00,199910/24/24 11/27/24 History Diclofenac Sodium Gel [Voltaren 1% 4 gm TOPICAL QID@08,12,16,20 11/08/24 11/27/24 History Gel] Pantoprazole Sodium [Protonix] 20 mg PO AC-BID@799,199911/08/24 11/27/24 History Tiotropium 2.5 Mcg/Puff [Spiriva 2 puff INHALATION RT-DAILY@79911/08/24 11/27/24 History Respimat 2.5 Mcg] Aspirin 81 mg PO DAILY@0800 11/12/24 11/27/24 History Metoprolol Tartrate [Lopressor] 25 mg PO BID@08,1999 #0 11/14/24 11/27/24 Rx Pentoxifylline [TRENtal] 400 mg PO BID-W/MEALS 11/27/24 11/27/24 History Sacubitril/Valsartan [Entresto 24 1 tab PO Q12HR@799,199911/27/24 11/27/24 History mg-26 mg Tablet] Sennosides/Docusate Sodium [Senna 2 tab PO HS@199911/27/24 11/27/24 History Plus 8.6-50 mg Tablet] Spironolactone [Aldactone] 12.5 mg PO DAILY@0800 11/27/24 11/27/24 History Torsemide [Demadex] 10 mg PO DAILY@0800 11/27/24 11/27/24 History guaiFENesin [Mucinex] 600 mg PO DAILY@0811/27/24 11/27/24 History predniSONE See Taper PO DAILY 11/27/24 11/27/24 History Allergies Allergy/AdvReac Type Severity Reaction Status Date / Time morphine Allergy Anaphylaxis Verified 11/27/24 20:12 Penicillins Allergy Swelling Verified 11/27/24 20:12 on entire body Influenza Virus Vaccines AdvReac Unknown Verified 11/27/24 20:12 pneumococcal vaccine AdvReac Unknown Verified 11/27/24 20:12 Physical Examination Gen: AOx3, NAD VSS stable at this time Integument: No open lesions or sores are visualized throughout the cervical, thoracic and lumbar spine. He has multiple skin tears and bruises to the bilateral upper extremities. Palpation: Mild tenderness with palpation to the paraspinal region of the lumbar area ROM: Full range of motion in all major muscle groups of the bilateral upper and lower extremities, no focal deficits appreciated Sensory Exam: Senory exam to light touch is intact C5-T1 Senosry exam to light touch is intact L2-S1, sensation to light touch is diminished in the L4-L5, L5-S1 distribution to the bilateral lower extremities Motor: 4/5 strength appreciated bilateral upper extremities with shoulder elevation, shoulder abduction, elbow extension, elbow flexion, wrist extension, wrist flexion, job placement officer, finger intrinsics 4-/5 strength in the bilateral lower extremities with hip flexion, knee extension, knee flexion, plantarflexion, dorsiflexion, EHL, FHL Reflexes: 2/4 in all UE and LE Negative Pooja's bilaterally Positive clonus bilaterally, multiple beats of bilateral feet Special Test: Logroll maneuver to the bilateral lower extremities reproduces no groin pain Results - Labs Labs: Abnormal Lab Results - Last 24 Hours (Table) 11/28/24 11/28/24 11/29/24 Range/Units 10:19 20:12 06:17 Sodium 131 L 132 L (137-145) mmol/L Carbon Dioxide 21 L (22-30) mmol/L BUN 51 H 39 H (9-20) mg/dL Creatinine 1.87 H 1.69 H (0.66-1.25) mg/dL POC Glucose (mg/dL) 130 H (70-110) mg/dL H & H 11/27/24 Range/Units 18:29 Hgb 13.4 (13.0-17.0) g/dL Hct 41.1 (39.6-50.0) % Result Diagrams: 11/27/24 18:29 11/29/24 06:17 - Diagnostic results CT Scan - lumbar: report reviewed, image reviewed Assessment and Plan Assessment: Chronic low back pain Bilateral lower extremity weakness Bilateral lower extremity radiculopathy Vascular/neurogenic claudication Multiple medical comorbidities Plan: I was able to discuss the case, this to include physical exam findings and imaging studies with my attending Dr. Gr, no emergent orthopedic spine surgical intervention recommended at this time With patient's significant cardiac/vascular history, multiple surgeries and pacemaker/defibrillator, MRIs at this facility are unobtainable Recommending patient follow-up in the outpatient setting with our orthopedic group to help facilitate scheduling MRIs of the spine for further evaluation, anticipate that he has stenosis at multiple levels, concerning more for cervical and thoracic due to his lower extremity neuropathic signs. Pain control, could consider low-dose narcotic versus Lyrica/gabapentin or low-d ose muscle relaxer at this time GI DVT prophylaxis per primary medical service PT/OT evaluation, recommending walker at all times for ambulation Other medical specialty recommendations appreciated Discharge planning: Our orthopedic office information will be placed in chart for follow-up, please contact our service with any further questions regarding this patient Time with Patient: Less than 30
[2024-11-29 11:27] LABS: Glucose,Whole Blood 146 mg/dL (70-110)
--- NOTE | 2024-11-29 12:22 | P.PN ---
Subjective Patient is seen for follow-up for acute kidney injury. Renal function has improved. Patient is maintained on IV fluids. Serum creatinine is down to 1.6 from 2.0. Patient is voiding well. Objective - Vital Signs Vital signs: Vital Signs Temp 97.8 F 11/29/24 08:00 Pulse 76 11/29/24 12:11 Resp 22 11/29/24 08:00 BP 106/70 11/29/24 08:00 Pulse Ox 97 11/29/24 09:17 FiO2 Intake & Output 11/28/24 11/29/24 11/29/24 18:59 06:59 18:59 Intake Total 20 400 240 Output Total 400 300 Balance 20 0 -60 Weight 68.7 kg Intake: IV 20 Invasive Line 2 20 Oral 400 240 Output: Urine 400 300 Other: Voiding Method Urinal # Voids 1 # Bowel Movements 1 - Exam Patient is awake, comfortable, alert oriented x 3. No acute distress Examination of the heart S1 and S2 Examination of the lungs bilateral breath sounds are heard Abdomen is soft nontender Examination of lower extremities shows no significant edema [employer] COORDINATOR exam grossly intact - Labs CBC & Chem 7: 11/27/24 18:29 11/29/24 06:17 Labs: Abnormal Lab Results - Last 24 Hours (Table) 11/28/24 11/29/24 11/29/24 Range/Units 20:12 06:17 11:25 Sodium 132 L (137-145) mmol/L Carbon Dioxide 21 L (22-30) mmol/L BUN 39 H (9-20) mg/dL Creatinine 1.69 H (0.66-1.25) mg/dL POC Glucose (mg/dL) 130 H 146 H (70-110) mg/dL Assessment and Plan Assessment: 1. Acute kidney injury, ATN from hypotension and volume depletion. Continue with IV fluids. Rule out urine retention. Check UA. Ultrasound of the kidneys does not show any significant obstructive uropathy. Bilateral simple cysts were noted 2. Hyperkalemia serum with acute kidney injury. Patient was maintained on Entresto and Aldactone, currently on hold. 3. Hypothyroidism 4. Nonischemic cardiomyopathy with EF of 25 to 20% Plan: DC IV fluids later on today given the underlying history of cardiomyopathy Check UA Repeat labs in a.m.
--- NOTE | 2024-11-29 13:22 | P.PN ---
Subjective HISTORY OF PRESENT ILLNESS: This is a 74-year-old male with a past medical history significant for coronary artery disease, congestive heart failure, hypertension, hyperlipidemia, seizure disorder, AICD implantation, AAA repair, lightheadedness, and paroxysmal atrial fibrillation. Patient follows in the office with Dr. Smith. We have been a sked to see the patient in consultation for chest pain. Patient examined at the bedside. Patient states he was feeling fine at home but then suddenly he will have episodes where his legs want to give out on him. He states he has pain everywhere and then the episode starts. He reports occasional shortness of breath and lightneadedness. He reports hes been eating and drinking well at home. He states he checks his blood pressure at home and states its normal at home but unable to verify what readings he has been getting at home. He reports some chest discomfort when he is breathing heavy. Denies CP at the time of examination. Patients blood pressure has been lower with a systolic in the 80s. DIAGNOSTICS: - EKG reveals atrial fib/flutter with controlled ventricular rate - Chest xray cardiomegaly with mild right basilar opacity. - Laboratory data: WBC 10.79. Hemoglobin 13.4. Platelet count 200. Sodium 131. Potassium 4.5. BUN 49. Creatinine 2.03. Troponin negative x 3. - Current home cardiac medications include Demadex 10 mg daily, Aldactone 12.5 mg daily, Entresto 24-26 mg twice a day, metoprolol tartrate 25 mg twice a day, Lipitor 40 mg at night, aspirin 81 mg daily, Eliquis 5 mg twice a day. - Most recent echocardiogram obtained in October 2024 revealed ejection fraction 2024%, severe hypokinesis more noted in inferior apical wall, mild pulmonary hypertension, moderate to severe MR, mild to moderate tricuspid regurgitation - Cardiac catheterization history: 09/20/2023 revealing [place] CAD including 100% proximal LAD stenosis, 75% proximal circumflex stenosis, 100% RCA stenosis. Occluded SVG to PDA, patent FIORE to LAD, SVG to diagonal with 95% stenosis. No other remaining grafts noted by aortogram. Status post PCI SVG to diagonal approximately and drug-eluting stent at distal SVG into diagonal 11/29/2024 Patient examined this morning at the bedside. Patient currently denies chest pain or pressure. He denies shortness of breath. Creatinine is improving today at 1.69. Blood pressures remain borderline with a reading of 95/56. Carotid Doppler obtained with less than 50% stenosis of bilateral internal carotid arteries. Moderate stenosis of bilateral external carotid arteries. Patient's device was interrogated yesterday. However report is not available at this time. PHYSICAL EXAM: VITAL SIGNS: Reviewed. GENERAL: Well-developed in no acute distress. HEENT: Head is normocephalic. Pupils are equal, round. Sclerae anicteric. Mucous membranes of the mouth are moist. Neck supple. No JVD or thyromegaly LUNGS: Respirations even and unlabored. Lungs essentially clear to auscultation bilaterally. HEART: Irregular rate and rhythm. S1 and S2 heard. ABDOMEN: Soft. Nondistended. Nontender. EXTREMITIES: Normal range of motion. No clubbing or cyanosis. Peripheral pulses intact. No lower extremity edema NEUROLOGIC: Awake and alert. Oriented x 3. ASSESSMENT: Hypotension Chest pain, patient currently denies CP, no evidence of ACS Acute kidney injury Coronary artery disease with previous CABG and subsequent stenting Ischemic cardiomyopathy, 20 to 25% Paroxysmal atrial fibrillation/typical atrial flutter Mild pulmonary hypertension Moderate to severe mitral regurgitation Chronic congestive heart failure with reduced EF Hypertension Hyperlipidemia History of AICD implantation History of AAA repair History of seizure disorder History of lightheadedness Nicotine dependence PLAN: No need to repeat echo as this was performed in October 2024 Hold Entresto, Demadex Aldactone Monitor kidney function Patient's device was interrogated yesterday. However report is not available at this time. Asked nursing to obtain report. Further recommendations pending patient course Nurse practitioner note has been reviewed by physician. Signing provider agrees with the documented findings, assessment, and plan of care documented by SKID WRAPPER as a scribe. Objective - Vital Signs Vital signs: Vital Signs Temp 97.6 F 11/28/24 23:43 Pulse 77 11/29/24 03:59 Resp 18 11/29/24 03:59 BP 92/57 11/29/24 03:59 Pulse Ox 96 11/29/24 03:59 FiO2 Intake & Output 11/28/24 11/29/24 11/29/24 18:59 06:59 18:59 Intake Total 20 400 Output Total 400 300 Balance 20 0 -300 Weight 68.7 kg Intake: IV 20 Invasive Line 2 20 Oral 400 Output: Urine 400 300 Other: Voiding Method Urinal - Labs CBC & Chem 7: 11/27/24 18:29 11/29/24 06:17 Labs: Abnormal Lab Results - Last 24 Hours (Table) 11/28/24 11/28/24 11/29/24 Range/Units 10:19 20:12 06:17 Sodium 131 L 132 L (137-145) mmol/L Carbon Dioxide 21 L (22-30) mmol/L BUN 51 H 39 H (9-20) mg/dL Creatinine 1.87 H 1.69 H (0.66-1.25) mg/dL POC Glucose (mg/dL) 130 H (70-110) mg/dL
--- NOTE | 2024-11-29 16:21 | P.PN ---
Progress Note - Text Progress Note Date: 11/29/24 Chief Complaint: Low back pain pleasant 74-year-old male, follows with visiting physicians Dr. Quispe. With a past medical history of CAD status post CABG x 4 followed by stent placement x 2, nonischemic cardiomyopathy status post AICD placement, hypertension, hyperlipidemia, COPD, hypothyroidism, anxiety with depression, schizoaffective disorder, schizophrenia, and nicotine dependence. Atrial flutter/tachycardia. CHF Lives at assisted living [place]. Patient presents with pain in the sacral area. Patient states she has had pain on and off there for over a year. Pain may come on suddenly then go sharply down both the legs. Patient feels weak in his legs. May last anywhere from 2 to 4 hours. Today had the same thing. Decided to come in. He has been seen by people outside the hospital before but does not remember what has he been told. Patient continues smoke about 6 to 8 cigarettes a day. Does use a walker. No involvement of the bowel or urine. Patient in the ER was found to have hyperkalemia and worsening renal function. Patient received insulin, glucose, albuterol nebulizer, Lokelma. November 28: Laying in bed. CT scan shows significant arthropathy, with neural foramina Narrowing mild. Ortho consulted. Creatinine started to come down. Had about 50% of his lunch. Getting IV fluids November 29: Sitting up. Comfortable. Keen to get discharge. Normal saline at 70 cc an hour. Creatinine 1.69. Patient eating well. Per Ortho no further intervention. Active Medications Acetaminophen (Acetaminophen Tab 325 Mg Tab) 650 mg PO Q6HR PRN PRN Reason: Mild Pain or Fever > 100.5 Last Admin: 11/28/24 20:24 Dose: 650 mg Hydrocodone Bitart/Acetaminophen (Hydrocodone/Apap 5-325mg 1 Each Tab) 1 each PO Q6HR PRN PRN Reason: Pain Last Admin: 11/29/24 08:51 Dose: 1 each Albuterol/Ipratropium (Ipratropium-Albuterol 3 Ml Neb) 3 ml INHALATION RT-QID [facility] Last Admin: 11/29/24 16:15 Dose: 3 ml Apixaban (Apixaban 5 Mg Tab) 5 mg PO BID@0800,2000 [facility]; Protocol Last Admin: 11/29/24 08:54 Dose: 5 mg Aspirin (Aspirin 81 Mg) 81 mg PO DAILY@0800 [facility] Last Admin: 11/29/24 08:53 Dose: 81 mg Atorvastatin Calcium (Atorvastatin 40 Mg Tab) 40 mg PO HS@1999 [facility] Last Admin: 11/28/24 20:25 Dose: 40 mg Budesonide (Budesonide 0.5 Mg/2 Ml Nebu) 0.5 mg INHALATION RT-BID@0900,1800 [facility] Last Admin: 11/29/24 09:16 Dose: 0.5 mg Buspirone HCl (Buspirone Hcl 10 Mg Tab) 10 mg PO BID@ [facility] Last Admin: 11/29/24 08:52 Dose: 10 mg Cilostazol (Cilostazol 100 Mg Tab) 100 mg PO BID@ [facility] Last Admin: 11/29/24 10:47 Dose: 100 mg Sodium Chloride (Saline 0.9%) 1,000 mls @ 70 mls/hr IV .[id number] [facility] Stop: 11/29/24 23:59 Last Admin: 11/29/24 05:51 Dose: 70 mls/hr Melatonin (Melatonin 5 Mg Tablet) 10 mg PO HS@1999 [facility] Last Admin: 11/28/24 20:24 Dose: 10 mg Metoprolol Tartrate (Metoprolol Tartrate 25 Mg Tab) 25 mg PO BID@ [facility] Last Admin: 11/29/24 08:53 Dose: 25 mg Mirtazapine (Mirtazapine 15 Mg Tab) 30 mg PO HS@1999 [facility] Last Admin: 11/28/24 20:25 Dose: 30 mg Naloxone HCl (Naloxone 0.4 Mg/Ml 1 Ml Vial) 0.2 mg IV Q2M PRN PRN Reason: Opioid Reversal Nicotine (Nicotine 14mg/24hr Patch) 1 patch TRANSDERM DAILY [facility] Last Admin: 11/29/24 10:46 Dose: Not Given Nitroglycerin (Nitroglycerin Sl Tabs 0.4 Mg Tab) 0.4 mg SUBLINGUAL Q5M PRN PRN Reason: Chest Pain Pantoprazole Sodium (Pantoprazole 40 Mg Tablet) 40 mg PO AC-BRKFST [facility] Last Admin: 11/29/24 05:50 Dose: 40 mg Senna/Docusate Sodium (Sennosides-Docusate Sodium 1 Each Tab) 2 each PO HS@1999 [facility] Last Admin: 11/28/24 20:24 Dose: 2 each Social history: 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 Possible smoker. At assisted living- [place]. Does use a walker Physical examination: VITAL SIGNS: 77, 18, 90/49, GENERAL: Reclining in bed, comfortable EYES: Pupils equal. Conjunctiva jameson l. HEENT: External appearance of nose and ears normal, oral cavity grossly normal. Slight decrease in hearing NECK: JVD not raised; masses not palpable. HEART: First and second heart sounds are normal; no edema. LUNGS:[ Respiratory rate normal diminished breath sounds, ABDOMEN: Soft, nontender, liver spleen not palpable, no masses palpable. PSYCH: Alert and oriented x3; mood and affect slightly anxious l. MUSCULOSKELETAL:No Clubbing/cyanosis;muscles-grossly intact INVESTIGATIONS, reviewed in the clinical context: November 29: Potassium 4.3 BUN 39 creatinine 1.69 November 28: Potassium 4.3 BUN 51 creatinine 1.87 November 27, 2024: White count 10.7 hemoglobin 13.4 platelets 200 sodium 134 potassium 5.7 BUN 48 creatinine 1.87 Previous studies 2D echocardiogram: EF 15 to 20%. Global hypokinesia. Moderate mitral regurgitation. November 16: BUN 30 creatinine 1.11 Assessment and Plan - Hyperkalemia, secondary to being on Aldactone and Entresto. Received Lokelma, glucose, insulin, albuterol in the ER. DC Aldactone Entresto. Renal diet - Acute kidney injury creatinine was 1.11 on November 16.: Likely ATN: Slow to respond Now 1.87 Hold off Aldactone and Entresto. Gentle hydration. - chronic systolic heart failure exacerbation, secondary to ischemic systolic dysfunction EF 15 to 20%:: Hold off Aldactone and Entresto for now. Gentle hydration because of CHF - Patient has episodes of pain in the sacral area radiating down the legs making his legs feel weak. And sharp pain. Intermittent. Last anywhere from 2 to 4 hours. Has not present for [address] scan lumbosacral spine. Consult Ortho -Persistent atrial flutter fibrillation Telemetry. IV amiodarone discontinued Eliquis. Lopressor 25 mg twice daily. -Acute hypoxic respiratory failure combination of COPD exacerbation, pneumonia, CHF: I improved Patient was on BiPAP. Now down to 3 L. Incentive spirometry -Moderate mitral regurgitation -CAD status post CABG x 4 and stent placement x 2 Aspirin -Essential hypertension Lopressor-, -Chronic nicotine dependence, cigarette smoker Nicotine patch -Chronic kidney disease stage 2-3 likely nephrosclerosis Follow renal function -Hyperlipidemia Lipitor -Hypothyroidism Levothyroxine 100 mcg daily. -COPD, In a current smoker: DuoNeb 4 times daily. Symbicort. -Chronic hypoxic respiratory failure from underlying COPD Home oxygen, 2 L -Full code -Public guardian-[facility] Continue gentle hydration because of CHF. Ortho consulted. Past Medical History Past Medical History: Coronary Artery Disease (CAD), Heart Failure, COPD, Dementia, Hyperlipidemia, Hypertension, Myocardial Infarction ([place]), Seizure Disorder, Syncope, Thyroid Disorder Additional Past Medical History / Comment(s): Ischemic cardiomyopathy, EF 20- 25%, last seizure about 2 yrs ago, hypothyroid.neuropathy "WHEN HE WORKED HE HAD A CRUSHING INJURY -COLLAPSED LUNGS C/T AND HAS CHRONIC BACK PAIN"" pt states he is schizophrenic/bipolar. TRIPLE A REPAIR AUG 2022 Last Myocardial Infarction Date:: unk History of Any Multi-Drug Resistant Organisms: None Reported Past Surgical History: AICD, Back Surgery, Coronary Bypass/CABG, Heart Catheterization, Heart Catheterization With Stent Additional Past Surgical History / Comment(s): 1995 CABG 4 vessel in [place], has had 2"HEART CATHS/had 2 STENTS after cabg sx.pt stated they were done in [place]. "sx on tailbone, cortisone injections, devin inguinal hernia repair Past Anesthesia/Blood Transfusion Reactions: No Reported Reaction Date of Last Stent Placement:: 1995 Type of Cardiac Device: AICD Device Placement Date:: 1995 in [facility] Past Psychological History: Anxiety, Depression, Schizoaffective Disorder, Schizophrenia Additional Psychological History / Comment(s): . Smoking Status: Current every day smoker Past Alcohol Use History: None Reported Additional Past Alcohol Use History / Comment(s): . Past Drug Use History: None Reported Additional Drug Use History / Comment(s): Pt states he smokes marijuana on oc casion.
[2024-11-29 16:28] LABS: Glucose,Whole Blood 137 mg/dL (70-110)
[2024-11-29] MEDS ORDERED: APIXABAN 5 MG TAB PO SCH (20:00)
[2024-11-29 20:11] LABS: Glucose,Whole Blood 136 mg/dL (70-110)
[2024-11-30 06:02] LABS: Glucose,Whole Blood 103 mg/dL (70-110)
[2024-11-30 07:09] LABS: African American GFR (CKD) 70 (>60 ml/min/1.73 sqM); Anion Gap 4 mmol/L; Blood Urea Nitrogen 29 mg/dL (9-20); Calcium 8.5 mg/dL (8.4-10.2); Carbon Dioxide 24 mmol/L (22-30); Chloride 105 mmol/L (98-107); Glucose 94 mg/dL (74-99); Non-African American GFR(CKD) 61 (>60 ml/min/1.73 sqM); Potassium 3.9 mmol/L (3.5-5.1); Sodium 133 mmol/L (137-145)
[2024-11-30 11:35] LABS: Glucose,Whole Blood 132 mg/dL (70-110)
[2024-11-30 11:37] VITALS: BP 102/64; RESP 16; TEMP 97.6
[2024-11-30 12:26] VITALS: PULSE 92
--- NOTE | 2024-11-30 15:13 | P.CARDCATH ---
Description of Procedure: PROCEDURES PERFORMED: Left heart catheterization, bilateral coronary angiography, ultrasound guided arterial access INDICATION: Persistent chest pain CONSENT:I have discussed the risks, benefits and alternative therapies for the above-mentioned procedure and for both sedation/analgesia as well as necessary blood product administration, if indicated, as they pertain to this patient. The patient has indicated understanding and acceptance of the risks and procedures discussed. PROCEDURE: After the risks, benefits and alternatives of the above mentioned procedure explained in detail with the patient, informed consent was obtained. Patient was taken to the catheterization lab and prepped and draped in usual fashion. Ultrasound guidance was used to assess for arterial access. 1% lidocaine was used to anesthetize the right radial artery. A 6-Nepali sheath was placed in the right radial artery using modified Seldinger technique and ultrasound guidance. Left coronary angiography was performed with a 5-Nepali JL 3.5 catheter and right coronary angiography was performed with a 5-Nepali FR5 catheter in various views. A 5-Nepali FR5 catheter was inserted into the left ventricle and pressure measurements were obtained. The right radial sheath was removed and a TR band was placed with hemostasis achieved. The patient t olerated the procedure well. Patient was transported back to the post catheterization holding area in stable condition. Conscious Sedation: Patient was monitored under the direct supervision of myself for conscious sedation using Versed and fentanyl for a total duration of 9 minutes HEMODYNAMICS: Ao: 143/81 LV: 141/10, LVEDP 18 SELECTIVE CORONARY ARTERIOGRAPHY: LEFT MAIN: The left main is a large caliber vessel which bifurcates into the LAD and circumflex. There is no significant stenosis. LEFT ANTERIOR DESCENDING CORONARY ARTERY: LAD is a large caliber vessel which wraps around to the apex. There is 20% proximal LAD stenosis and otherwise normal. LEFT CIRCUMFLEX CORONARY ARTERY: Left circumflex is a moderate caliber vessel without significant stenosis. RIGHT CORONARY ARTERY: The right coronary artery is a large caliber vessel which gives off a PDA and PLV branch and is the dominant vessel. There is no significant stenosis. FINAL IMPRESSION: 1. Mild CAD as described above with 20% LAD stenosis 2. Mildly elevated left sided filling pressures PLAN: 1. Aggressive risk factor modification per most recent ACC/AHA guidelines. 2. Follow-up in the office in 1-2 weeks.
--- NOTE | 2024-11-30 18:44 | P.PN ---
Subjective Patient is seen for follow-up for acute kidney injury. Renal function has improved. Patient is maintained on IV fluids. Serum creatinine is down to 1.1 from 2.0. Patient is voiding well. Objective - Vital Signs Vital signs: Vital Signs Temp 97.6 F 11/30/24 11:35 Pulse 92 11/30/24 12:25 Resp 16 11/30/24 11:35 BP 102/64 11/30/24 11:35 Pulse Ox 96 11/30/24 11:35 FiO2 Intake & Output 11/29/24 11/30/24 11/30/24 18:59 06:59 18:59 Intake Total 600 500 Output Total 800 Balance -200 500 Weight 68.6 kg Intake: IV 20 Invasive Line 5 20 Oral 600 480 Output: Urine 800 Other: Voiding Method Urinal Urinal # Voids 1 1 # Bowel Movements 1 1 - Exam Patient is awake, comfortable, alert oriented x 3. No acute distress Examination of the heart S1 and S2 Examination of the lungs bilateral breath sounds are heard Abdomen is soft nontender Examination of lower extremities shows no significant edema NURSE SPECIALIST exam grossly intact - Labs CBC & Chem 7: 11/27/24 18:29 11/30/24 05:54 Labs: Abnormal Lab Results - Last 24 Hours (Table) 11/27/24 11/29/24 11/30/24 Range/Units 18:29 20:09 05:54 Sodium 133 L (137-145) mmol/L BUN 29 H (9-20) mg/dL POC Glucose (mg/dL) 136 H (70-110) mg/dL Total Creatine Kinase 21 L (30-223) u/L 11/30/24 Range/Units 11:33 Sodium (137-145) mmol/L BUN (9-20) mg/dL POC Glucose (mg/dL) 132 H (70-110) mg/dL Total Creatine Kinase (30-223) u/L Assessment and Plan Assessment: 1. Acute kidney injury, ATN from hypotension and volume depletion. Status post IV fluids. No urine retention. UA not performed, ordered twice. Ultrasound of the kidneys does not show any significant obstructive uropathy. Bilateral simple cysts were noted 2. Hyperkalemia serum with acute kidney injury. Patient was maintained on Entresto and Aldactone, currently on hold. 3. Hypothyroidism 4. Nonischemic cardiomyopathy with EF of 25 to 20% Plan: Stable for discharge from nephrology standpoint.
--- NOTE | 2024-11-30 19:32 | P.DS ---
Providers Date of admission: 11/27/24 19:48 Expected date of discharge: 11/30/24 Attending physician: Juan Bhatt Consults: 11/27/24 19:44 Consult Physician Stat Consulting Provider: Ree Menjivar Consult Reason/Comments: MARSHALL, hyperkalemia Do you want consulting provider notified?: Yes, Notify in am 11/27/24 22:51 Consult Physician Stat Consulting Provider: Pal Glover Consult Reason/Comments: chest pain Do you want consulting provider notified?: Yes, Notify in am 11/28/24 17:43 Consult Physician Routine Consulting Provider: Ole Gr Consult Reason/Comments: Low back pain Do you want consulting provider notified?: Yes Primary care physician: Denys Quispe MD Hospital Course: Chief Complaint: Low back pain pleasant 74-year-old male, follows with visiting physicians Dr. Quispe. With a past medical history of CAD status post CABG x 4 followed by stent placement x 2, nonischemic cardiomyopathy status post AICD placement, hypertension, hyperlipidemia, COPD, hypothyroidism, anxiety with depression, schizoaffective disorder, schizophrenia, and nicotine dependence. Atrial flutter/tachycardia. CHF Lives at [facility]. Patient presents with pain in the sacral area. Patient states she has had pain on and off there for over a year. Pain may come on suddenly then go sharply do wn both the legs. Patient feels weak in his legs. May last anywhere from 2 to 4 hours. Today had the same thing. Decided to come in. He has been seen by people outside the hospital before but does not remember what has he been told. Patient continues smoke about 6 to 8 cigarettes a day. Does use a walker. No involvement of the bowel or urine. Patient in the ER was found to have hyperkalemia and worsening renal function. Patient received insulin, glucose, albuterol nebulizer, Lokelma. November 28: Laying in bed. CT scan shows significant arthropathy, with neural foramina Narrowing mild. Ortho consulted. Creatinine started to come down. Had about 50% of his lunch. Getting IV fluids November 29: Sitting up. Comfortable. Keen to get discharge. Normal saline at 70 cc an hour. Creatinine 1.69. Patient eating well. Per Ortho no further intervention. November 30: Doing better. Creatinine down to 1.18. Entresto has been held. Follow-up with his cardiology. Demadex and Aldactone resumed. Discussed with patient. Fluid restriction. 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 Possible smoker. At assisted living- [facility]. Does use a walker Physical examination: VITAL SIGNS: 97.6, 80, 16, 102 x 64, 96% 2 L GENERAL: Sitting up in bed comfortable EYES: Pupils equal. Conjunctiva jameson l. HEENT: External appearance of nose and ears normal, oral cavity grossly normal. Slight decrease in hearing NECK: JVD not raised; masses not palpable. HEART: First and second heart sounds are normal; no edema. LUNGS:[ Respiratory rate normal diminished breath sounds, ABDOMEN: Soft, nontender, liver spleen not palpable, no masses palpable. PSYCH: Alert and oriented x3; mood and affect slightly anxious l. INVESTIGATIONS, reviewed in the clinical context: November 30: Potassium 3.9 BUN 29 creatinine 1.18 November 29: Potassium 4.3 BUN 39 creatinine 1.69 November 28: Potassium 4.3 BUN 51 creatinine 1.87 November 27, 2024: White count 10.7 hemoglobin 13.4 platelets 200 sodium 134 potassium 5.7 BUN 48 creatinine 1.87 Previous studies 2D echocardiogram: EF 15 to 20%. Global hypokinesia. Moderate mitral regurgitation. November 16: BUN 30 creatinine 1.11 Assessment and Plan - Hyperkalemia, secondary to being on Aldactone and Entresto.: Resolved Received Lokelma, glucose, insulin, albuterol in the ER. DC Aldactone Entresto. Renal diet - Acute kidney injury creatinine was 1.11 on November 16.: Likely ATN: Improved Now 1.87 Hold off Aldactone and Entresto. Gentle hydration. - chronic systolic heart failure exacerbation, secondary to ischemic systolic dysfunction EF 15 to 20%::: Stable Hold off Aldactone and Entresto for now. Gentle hydration because of CHF - Patient has episodes of pain in the sacral area radiating down the legs making his legs feel weak. And sharp pain. Intermittent. Last anywhere from 2 to 4 hours. Has not present for [address] scan lumbosacral spine.: DJD. Seen by Dr. Gr. Medical management -Persistent atrial flutter fibrillation Eliquis. Lopressor 25 mg twice daily. -Acute hypoxic respiratory failure combination of COPD exacerbation, pneumonia, CHF: I improved Patient was on BiPAP. Now down to 2l Incentive spirometry -Moderate mitral regurgitation -CAD status post CABG x 4 and stent placement x 2 Aspirin -Essential hypertension Lopressor-, -Chronic nicotine dependence, cigarette smoker Nicotine patch -Chronic kidney disease stage 2-3 likely nephrosclerosis Follow renal function -Hyperlipidemia Lipitor -Hypothyroidism Levothyroxine 100 mcg daily. -COPD, In a current smoker: DuoNeb 4 times daily. Symbicort. -Chronic hypoxic respiratory failure from underlying COPD Home oxygen, 2 L -Full code -Public guardian-[facility] Disposition: Assisted living: [facility] Past Medical History Past Medical History: Coronary Artery Disease (CAD), Heart Failure, COPD, Dementia, Hyperlipidemia, Hypertension, Myocardial Infarction ([place]), Seizure Disorder, Syncope, Thyroid Disorder Additional Past Medical History / Comment(s): Ischemic cardiomyopathy, EF 20- 25%, last seizure about 2 yrs ago, hypothyroid.neuropathy "WHEN HE WORKED HE HAD A CRUSHING INJURY -COLLAPSED LUNGS C/T AND HAS CHRONIC BACK PAIN"" pt states he is schizophrenic/bipolar. TRIPLE A REPAIR AUG 2022 Last Myocardial Infarction Date:: unk History of Any Multi-Drug Resistant Organisms: None Reported Past Surgical History: AICD, Back Surgery, Coronary Bypass/CABG, Heart Catheterization, Heart Catheterization With Stent Additional Past Surgical History / Comment(s): 1995 CABG 4 vessel in [place], has had 2"HEART CATHS/had 2 STENTS after cabg sx.pt stated they were done in [facility]. "sx on tailbone, cortisone injections, devin inguinal hernia repair Past Anesthesia/Blood Transfusion Reactions: No Reported Reaction Date of Last Stent Placement:: 1995 Type of Cardiac Device: AICD Device Placement Date:: [address] [facility] Past Psychological History: Anxiety, Depression, Schizoaffective Disorder, Schizophrenia Additional Psychological History / Comment(s): . Smoking Status: Current every day smoker Past Alcohol Use History: None Reported Additional Past Alcohol Use History / Comment(s): . Past Drug Use History: None Reported Additional Drug Use History / Comment(s): Pt states he smokes marijuana on occasion. Plan - Discharge Summary Discharge Rx Participant: No New Discharge Prescriptions: Continue Cyanocobalamin (Vitamin B-12) [Vitamin B-12] 1,000 mcg PO DAILY@0800 Acetaminophen [Tylenol 8 Hour] 650 mg PO TID@0800,1400,2000 Atorvastatin Calcium [Lipitor] 40 mg PO HS@1999 Budesonide-Formot 160-4.5 Mcg [Symbicort 160-4.5 Mcg Inhaler] 2 puff INHALATION RT-BID@08,1999 Budesonide 0.5 mg INHALATION RT-BID@0900,1800 Ipratropium-Albuterol Nebulize [Duoneb 0.5 mg-3 mg/3 ml Soln] 3 ml INHALATION RT-QID Sennosides/Docusate Sodium [Senna Plus 8.6-50 mg Tablet] 2 tab PO HS@1999 Folic Acid 0.4 mg PO DAILY@0800 Levothyroxine Sodium [Synthroid] 100 mcg PO DAILY@0700 Mirtazapine 30 mg PO HS@1999 Nitroglycerin Sl Tabs [Nitrostat] 0.4 mg SUBLINGUAL Q5M PRN 90 Days #100 tab PRN Reason: Chest Pain Dapagliflozin Propanediol [Farxiga] 10 mg PO DAILY@0800 Apixaban [Eliquis] 5 mg PO BID@08,1999 busPIRone HCl [Buspar] 10 mg PO BID@08,1999 Tiotropium 2.5 Mcg/Puff [Spiriva Respimat 2.5 Mcg] 2 puff INHALATION RT-DAILY@0800 Pantoprazole Sodium [Protonix] 20 mg PO AC-BID@08,1999 Diclofenac Sodium Gel [Voltaren 1% Gel] 4 gm TOPICAL QID@08,12,16,20 Aspirin 81 mg PO DAILY@0800 Metoprolol Tartrate [Lopressor] 25 mg PO BID@08,1999 #0 Torsemide [Demadex] 10 mg PO DAILY@0800 Spironolactone [Aldactone] 12.5 mg PO DAILY@0800 Pentoxifylline [TRENtal] 400 mg PO BID-W/MEALS Discontinued guaiFENesin [Mucinex] 600 mg PO DAILY@0800 Sacubitril/Valsartan [Entresto 24 mg-26 mg Tablet] 1 tab PO Q12HR@08,1999 predniSONE See Taper PO DAILY Discharge Medication List Cyanocobalamin (Vitamin B-12) [Vitamin B-12] 1,000 mcg PO DAILY@0800 08/23/22 [History] Acetaminophen [Tylenol 8 Hour] 650 mg PO TID@0800,1399,199909/17/23 [History] Atorvastatin Calcium [Lipitor] 40 mg PO HS@199909/17/23 [History] Folic Acid 0.4 mg PO DAILY@79909/17/23 [History] Levothyroxine Sodium [Synthroid] 100 mcg PO DAILY@0709/17/23 [History] Mirtazapine 30 mg PO HS@199909/17/23 [History] Nitroglycerin Sl Tabs [Nitrostat] 0.4 mg SUBLINGUAL Q5M PRN 90 Days #100 tab 09/21/23 [Rx] Budesonide-Formot 160-4.5 Mcg [Symbicort 160-4.5 Mcg Inhaler] 2 puff INHALATION RT-BID@799,199910/16/23 [History] Dapagliflozin Propanediol [Farxiga] 10 mg PO DAILY@79910/16/23 [History] Budesonide 0.5 mg INHALATION RT-BID@0900,1800 03/03/24 [History] Ipratropium-Albuterol Nebulize [Duoneb 0.5 mg-3 mg/3 ml Soln] 3 ml INHALATION RT-QID 04/13/24 [History] Apixaban [Eliquis] 5 mg PO BID@799,199910/24/24 [History] busPIRone HCl [Buspar] 10 mg PO BID@799,199910/24/24 [History] Diclofenac Sodium Gel [Voltaren 1% Gel] 4 gm TOPICAL QID@08,12,16,20 11/08/24 [History] Pantoprazole Sodium [Protonix] 20 mg PO AC-BID@799,199911/08/24 [History] Tiotropium 2.5 Mcg/Puff [Spiriva Respimat 2.5 Mcg] 2 puff INHALATION RT- DAILY@79911/08/24 [History] Aspirin 81 mg PO DAILY@79911/12/24 [History] Metoprolol Tartrate [Lopressor] 25 mg PO BID@799,1999 #0 11/14/24 [Rx] Pentoxifylline [TRENtal] 400 mg PO BID-W/MEALS 11/27/24 [History] Sennosides/Docusate Sodium [Senna Plus 8.6-50 mg Tablet] 2 tab PO HS@199911/27/24 [History] Spironolactone [Aldactone] 12.5 mg PO DAILY@79911/27/24 [History] Torsemide [Demadex] 10 mg PO DAILY@79911/27/24 [History] Follow up Appointment(s)/Referral(s): track dresserdr [Other] - 1 Week Denys Quispe MD [Primary Care Provider] - 1-2 days Snow Jacobs NPC [Nurse Practitioner] - As Needed Activity/Diet/Wound Care/Special Instructions: fluid restrict 2000 cc/day Discharge Disposition: HOME WITH HOME HEALTH SERVICES
--- NOTE | 2024-12-04 14:04 | CDI ---
Documentation Clarification Form Date: 12/04/24 From: FRANCI Ramírez Admit Date: 11/27/2024 07:48:00 PM Patient Name: Magaly Morales Visit Number: [id number] Discharge Date: 11/30/2024 02:29:00 PM ATTENTION: The Clinical Documentation Specialists (CDI) and [facility] Coding Staff appreciate your assistance in clarifying documentation. Please respond to the clarification below the line at the bottom and electronically sign. The CDI & [facility] Coding staff will review the response and follow-up if needed. Please note: Queries are made part of the Legal Health Record. If you have any questions, please contact the author of this message via ITS. Doctor/Provider: Juan Bhatt Chronic systolic heart failure exacerbation, acute hypoxic respiratory failure, COPD exacerbation and Pneumonia are documented on the H&P, Progress Notes and Discharge Summary which may lack sufficient clinical evidence/support in the medical record. It is unclear if these diagnosis apply to this patient during this visit due to lack of supporting clinical indicators. Chest xray is negative for pneumonia, respiratory notes appear to only show nebulizer treatment with no BiPap. BNP not drawn. CHF is noted to be stable. History/Risk Factors: patient is admitted with low back pain and is noted to have hyperkalemia and MARSHALL. Please clarify if Chronic systolic heart failure exacerbation, acute hypoxic respiratory failure, COPD exacerbation and Pneumonia are valid diagnoses? [ ] No, Chronic systolic heart failure exacerbation, acute hypoxic respiratory failure, COPD exacerbation and Pneumonia are ruled out [ + ] Yes, Chronic systolic heart failure exacerbation, acute hypoxic respiratory failure, COPD exacerbation and Pneumonia are present as evidence by (additional clinical support): [ ] Other (please specify diagnosis) [ ] Unable to determine MTDD
== END 2024-11-30 14:29 | disposition home health service (06) | DRG 682 ==
LOC: EC 16:56 → 6NMEDSUR 19:47 → OBSVTOIN 19:48 → 6NMEDSUR 20:49 → 3SCARD 11-28 05:02
PROVIDERS: ADMIT Hospitalist; ATTEND Hospitalist
DX: N17.0 Acute kidney failure with tubular necrosis (principal); I50.23 Acute on chronic systolic (congestive) heart failure; J96.01 Acute respiratory failure with hypoxia; J18.9 Pneumonia, unspecified organism; J44.1 Chronic obstructive pulmonary disease with (acute) exacerbation; I13.0 Hypertensive heart and chronic kidney disease with heart failure and stage 1 through stage 4 chronic kidney disease, or unspecified chronic kidney disease; I48.3 Typical atrial flutter; I48.92 Unspecified atrial flutter; J96.11 Chronic respiratory failure with hypoxia; I25.5 Ischemic cardiomyopathy; F25.9 Schizoaffective disorder, unspecified; G40.909 Epilepsy, unspecified, not intractable, without status epilepticus; E03.9 Hypothyroidism, unspecified; F32.A Depression, unspecified; I34.0 Nonrheumatic mitral (valve) insufficiency; I42.8 Other cardiomyopathies; I50.22 Chronic systolic (congestive) heart failure; I48.0 Paroxysmal atrial fibrillation; E86.9 Volume depletion, unspecified; N18.2 Chronic kidney disease, stage 2 (mild); E78.5 Hyperlipidemia, unspecified; E87.5 Hyperkalemia; M19.90 Unspecified osteoarthritis, unspecified site; F17.210 Nicotine dependence, cigarettes, uncomplicated; T50.0X5A Adverse effect of mineralocorticoids and their antagonists, initial encounter; T46.5X5A Adverse effect of other antihypertensive drugs, initial encounter; M54.10 Radiculopathy, site unspecified; I25.10 Atherosclerotic heart disease of native coronary artery without angina pectoris; G89.29 Other chronic pain; I25.2 Old myocardial infarction; Z95.5 Presence of coronary angioplasty implant and graft; Z95.1 Presence of aortocoronary bypass graft; Z95.810 Presence of automatic (implantable) cardiac defibrillator; Z79.01 Long term (current) use of anticoagulants; Z79.02 Long term (current) use of antithrombotics/antiplatelets; Z79.51 Long term (current) use of inhaled steroids; Z79.82 Long term (current) use of aspirin; Z79.84 Long term (current) use of oral hypoglycemic drugs; Z79.890 Hormone replacement therapy; Z79.899 Other long term (current) drug therapy; Z86.79 Personal history of other diseases of the circulatory system; Z99.81 Dependence on supplemental oxygen; Z88.5 Allergy status to narcotic agent; Z88.0 Allergy status to penicillin
CPT/HCPCS: 36415; 51798; 71045; 72131; 76770; 80048; 80053; 82550; 82552; 83605; 84484; 85025; 93005; 93880; 94640; 94760; 96365; 96372; 96375; 99285

== ENCOUNTER 2024-12-03 19:27 | Emergency (ER) | payer MEDICARE, OTHER ==
--- NOTE | 2024-12-03 19:32 | ED ---
Weakness HPI - General Stated complaint: NVD Time Seen by Provider: 12/03/24 19:31 Source: RN notes reviewed, old records reviewed Mode of arrival: ambulatory Limitations: no limitations - History of Present Illness Initial comments: This is a 74-year-old male to the ER for evaluation patient community health for evaluation of nausea vomiting significant persistent nausea vomiting here in the ER with weakness patient shortness of breath with underlying COPD worse than baseline. Patient feels like his heart is racing lightheaded and dizzy MD Complaint: generalized weakness -: days(s) Location: generalized Severity: moderate Severity scale (1-10): 7 Consistency: constant Improves with: none Worsens with: none - Related Data Home Medications Medication Instructions Recorded Confirmed Cyanocobalamin (Vitamin B-12) 1,000 mcg PO DAILY@0800 08/23/22 12/06/24 [Vitamin B-12] Acetaminophen [Tylenol 8 Hour] 650 mg PO TID@0800,1400,199909/17/23 12/06/24 Atorvastatin Calcium [Lipitor] 40 mg PO HS@199909/17/23 12/06/24 Folic Acid 0.4 mg PO DAILY@0800 09/17/23 12/06/24 Levothyroxine Sodium [Synthroid] 100 mcg PO DAILY@0700 09/17/23 12/06/24 Mirtazapine 30 mg PO HS@199909/17/23 12/06/24 Budesonide-Formot 160-4.5 Mcg 2 puff INHALATION RT-BID@0800,199910/16/23 12/06/24 [Symbicort 160-4.5 Mcg Inhaler] Dapagliflozin Propanediol [Farxiga] 10 mg PO DAILY@0800 10/16/23 12/06/24 Budesonide 0.5 mg INHALATION RT-BID@0900,1800 03/03/24 12/06/24 Ipratropium-Albuterol Nebulize 3 ml INHALATION RT-QID 04/13/24 12/06/24 [Duoneb 0.5 mg-3 mg/3 ml Soln] Apixaban [Eliquis] 5 mg PO BID@0800,199910/24/24 12/06/24 busPIRone HCl [Buspar] 10 mg PO BID@0800,199910/24/24 12/06/24 Diclofenac Sodium Gel [Voltaren 1% 4 gm TOPICAL QID@08,12,16,20 11/08/24 12/06/24 Gel] Pantoprazole Sodium [Protonix] 20 mg PO AC-BID@799,199911/08/24 12/06/24 Tiotropium 2.5 Mcg/Puff [Spiriva 2 puff INHALATION RT-DAILY@79911/08/24 12/06/24 Respimat 2.5 Mcg] Aspirin 81 mg PO DAILY@79911/12/24 12/06/24 Pentoxifylline [TRENtal] 400 mg PO BID-W/MEALS 11/27/24 12/06/24 Sennosides/Docusate Sodium [Senna 2 tab PO HS@199911/27/24 12/06/24 Plus 8.6-50 mg Tablet] Spironolactone [Aldactone] 12.5 mg PO DAILY@79911/27/24 12/06/24 Torsemide [Demadex] 10 mg PO DAILY@79911/27/24 12/06/24 Previous Rx's Medication Instructions Recorded Nitroglycerin Sl Tabs [Nitrostat] 0.4 mg SUBLINGUAL Q5M PRN 90 Days 09/21/23 #100 tab Metoprolol Tartrate [Lopressor] 25 mg PO BID@ #0 11/14/24 Allergies Allergy/AdvReac Type Severity Reaction Status Date / Time morphine Allergy Anaphylaxis Verified 12/06/24 10:18 Penicillins Allergy Swelling Verified 12/06/24 10:18 on entire body Influenza Virus Vaccines AdvReac Unknown Verified 12/06/24 10:18 pneumococcal vaccine AdvReac Unknown Verified 12/06/24 10:18 Review of Systems ROS Statement: Those systems with pertinent positive or pertinent negative responses have been documented in the HPI. ROS Other: All systems not noted in ROS Statement are negative. Past Medical History Past Medical History: Coronary Artery Disease (CAD), Heart Failure, COPD, Dementia, Hyperlipidemia, Hypertension, Myocardial Infarction ([place]), Seizure Disorder, Syncope, Thyroid Disorder Additional Past Medical History / Comment(s): Ischemic cardiomyopathy, EF 20- 25%, last seizure about 2 yrs ago, hypothyroid.neuropathy "WHEN HE WORKED HE HAD A CRUSHING INJURY -COLLAPSED LUNGS C/T AND HAS CHRONIC BACK PAIN"" pt states he is schizophrenic/bipolar. TRIPLE A REPAIR AUG 2022 Last Myocardial Infarction Date:: unk History of Any Multi-Drug Resistant Organisms: None Reported Past Surgical History: AICD, Back Surgery, Coronary Bypass/CABG, Heart Catheterization, Heart Catheterization With Stent Additional Past Surgical History / Comment(s): 1995 CABG 4 vessel in [place], has had 2"HEART CATHS/had 2 STENTS after cabg sx.pt stated they were done in [facility]. "sx on tailbone, cortisone injections, devin inguinal hernia repair Past Anesthesia/Blood Transfusion Reactions: No Reported Reaction Date of Last Stent Placement:: 1995 Type of Cardiac Device: AICD Device Placement Date:: 1995 in [facility] Past Psychological History: Anxiety, Depression, Schizoaffective Disorder, Schizophrenia Additional Psychological History / Comment(s): . Smoking Status: Current every day smoker Past Alcohol Use History: None Reported Additional Past Alcohol Use History / Comment(s): . Past Drug Use History: None Reported Additional Drug Use History / Comment(s): Pt states he smokes marijuana on occasion. - Past Family History Mother Family Medical History: Respiratory Disorder Additional Family Medical History / Comment(s): Mother had TB Father Additional Family Medical History / Comment(s): Father was an alcoholic, was killed in a motor vehicle accident General Exam General appearance: alert, in no apparent distress, anxious Head exam: Present: atraumatic, normocephalic, normal inspection Eye exam: Present: normal appearance, PERRL, EOMI. Absent: scleral icterus, conjunctival injection, periorbital swelling ENT exam: Present: normal exam, mucous membranes dry Neck exam: Present: normal inspection. Absent: tenderness, meningismus, lymphadenopathy Respiratory exam: Present: normal lung sounds bilaterally. Absent: respiratory distress, wheezes, rales, rhonchi, stridor Cardiovascular Exam: Present: normal rhythm, tachycardia, normal heart sounds. Absent: systolic murmur, diastolic murmur, rubs, gallop, clicks GI/Abdominal exam: Present: soft, normal bowel sounds. Absent: distended, tenderness, guarding, rebound, rigid Extremities exam: Present: normal inspection, full ROM, normal capillary refill. Absent: tenderness, pedal edema, joint swelling, calf tenderness Back exam: Present: normal inspection Neurological exam: Present: alert, oriented X3, CN II-XII intact Psychiatric exam: Present: normal affect, normal mood Skin exam: Present: warm, dry, intact, normal color. Absent: rash Course Vital Signs 12/03/24 12/03/24 12/03/24 19:29 23:43 23:57 Temperature 97.6 F Pulse Rate 111 H 97 96 Respiratory 17 Rate Blood Pressure 123/76 O2 Sat by Pulse 98 Oximetry 12/04/24 00:17 Temperature Pulse Rate 99 Respiratory 19 Rate Blood Pressure 110/66 O2 Sat by Pulse 99 Oximetry - Reevaluation(s) Reevaluation #1: 12/03/24 20:30 Medical records reviewed Reevaluation #2: 12/04/24 00:05 Patient symptoms dramatically improved here in the ER he does not want to stay in the hospital for further evaluation Reevaluation #3: 12/04/24 00:05 Patient informed of results questions answered refusing hospital admission Reevaluation #4: Was pt. sent in by a medical professional or institution (, PA, SHRIMP CLEANER, urgent care, hospital, or care home...) When possible be specific @ -no Did you speak to anyone other than the patient for history (EMS, parent, family, police, friend...)? What history was obtained from this source @ -no Did you review nursing and triage notes (agree or disagree)? Why? @ -agree Are old charts reviewed (outside hosp., previous admission, EMS record, old EKG, old radiological studies, urgent care reports/EKG's, care home records)? Report findings @ -yes Differential Diagnosis (chest pain, altered mental status, abdominal pain women, abdominal pain men, vaginal bleeding, weakness, fever, dyspnea, syncope, headache, dizziness, GI bleed, back pain, seizure, CVA, palpatations, mental health, musculoskeletal)? @ -prior EKG interpreted by me (3pts min.). @ -yes X-rays interpreted by me (1pt min.). @ -no CT interpreted by me (1pt min.). @ -no U/S interpreted by me (1pt. min.). @ -no What testing was considered but not performed or refused? (CT, X-rays, U/S, labs)? Why? @ -none What meds were considered but not given or refused? Why? @ -none Did you discuss the management of the patient with other professionals (professionals i.e. DrLoretta, PA, SHRIMP CLEANER, lab, RT, psych nurse, social services specialist, personnel coordinator, teacher, special weapons and tactics officer, manager case management)? Give summary @ -no Was smoking cessation discussed for >3mins.? @ -no Was critical care preformed (if so, how long)? @ -no Were there social determinants of health that impacted care today? How? (Homele ssness, low income, unemployed, alcoholism, drug addiction, transportation, low edu. Level, literacy, decrease access to med. care, prison, rehab)? @ -none Was there de-escalation of care discussed even if they declined (Discuss DNR or withdrawal of care, Hospice)? DNR status @ -no What co-morbidities impacted this encounter? (DM, HTN, Smoking, COPD, CAD, Cancer, CVA, ARF, Chemo, Hep., AIDS, mental health diagnosis, sleep apnea, morbid obesity)? @ -none Was patient admitted / discharged? Hospital course, mention meds given and route, prescriptions, significant lab abnormalities, going to OR and other pertinent info. @ - 74 male to ER for evaluation, patient presents today for evaluation of nausea vomiting all symptoms are improved patient initially in atrial fibrillation with RVR that heart rate is improved to sinus, patient has elevated troponin with minor L bump to a higher troponin here in the ER yet at this time patient does not want inpatient evaluation refusing to stay in the hospital and will be discharged home Discharge Undiagnosed new problem with uncertain prognosis? @ -no Drug Therapy requiring intensive monitoring for toxicity (Heparin, Nitro, Insulin, Cardizem)? @ -no Were any procedures done? @ -no Diagnosis/symptom? @ -Nausea vomiting A-fib with RVR Acute, or Chronic, or Acute on Chronic? @ -Acute Uncomplicated (without systemic symptoms) or Complicated (systemic symptoms)? @ -Complicated Side effects of treatment? @ -no Exacerbation, Progression, or Severe Exacerbation? @ -exacerbation Poses a threat to life or bodily function? How? (Chest pain, [place], [place], pneumonia, PE, COPD, DKA, ARF, appy, cholecystitis, CVA, Diverticulitis, Homicidal, Suicidal, threat to staff... and all critical care pts) @ -yes extremes of age Reevaluation #5: Differential Weakness: Hypoglycemia, shock, sepsis, hyponatremia, anemia, infection, [place], ETOH, adverse medicine reaction, overdose, stroke, this is not meant to be an all-inclusive list. EKG Findings - EKG Comments: EKG Findings:: EKG is sinus 114 NV 133 QRS 121 QTc 4 4 - EKG Results: EKG: interpreted by [facility] Medical Decision Making - Medical Decision Making 74 male to ER for evaluation, patient presents today for evaluation of nausea vomiting all symptoms are improved patient initially in atrial fibrillation with RVR that heart rate is improved to sinus, patient has elevated troponin with minor L bump to a higher troponin here in the ER yet at this time patient does not want inpatient evaluation refusing to stay in the hospital and will be discharged home - Lab Data Result diagrams: 12/03/24 21:06 12/03/24 19:42 Lab Results 12/03/24 12/03/24 12/03/24 Range/Units 19:42 19:42 19:42 WBC (4.50-10.00) 10*3/uL RBC (4.40-5.60) 10*6/uL Hgb (13.0-17.0) g/dL Hct (39.6-50.0) % MCV (80.0-97.0) fL MCH (27.0-32.0) pg MCHC (32.0-37.0) g/dL Plt Count (140-440) 10*3/uL MPV (9.5-12.2) fL Immature Gran % (Auto) % Neutrophils % % Lymphocytes % % Monocytes % % Eosinophils % % Basophils % % Immature Gran # (0.00-0.04) 10*3/uL Neutrophils # (1.80-7.70) 10*3/uL Lymphocytes # (0.90-5.00) 10*3/uL Monocytes # (0.20-1.00) 10*3/uL Eosinophils # (0.04-0.35) 10*3/uL Basophils # (0.00-0.10) 10*3/uL PT (10.0-12.5) sec INR (<1.2) APTT (22.0-30.0) sec Sodium 135 L (137-145) mmol/L Potassium 4.0 (3.5-5.1) mmol/L Chloride 101 (98-107) mmol/L Carbon Dioxide 26 (22-30) mmol/L Anion Gap 8 mmol/L BUN 24 H (9-20) mg/dL Creatinine 1.46 H (0.66-1.25) mg/dL Est GFR (CKD-EPI)AfAm 54 (>60 ml/min/1.73 sqM) Est GFR (CKD-EPI)NonAf 47 (>60 ml/min/1.73 sqM) Glucose 98 (74-99) mg/dL Plasma Lactic Acid Rigoberto 1.4 (0.7-2.0) mmol/L Calcium 8.2 L (8.4-10.2) mg/dL Phosphorus 2.7 (2.5-4.5) mg/dL Magnesium 1.3 L (1.6-2.3) mg/dL Total Bilirubin 0.7 (0.2-1.3) mg/dL AST 34 (17-59) U/L ALT 23 (4-49) U/L Alkaline Phosphatase 51 (38-126) U/L Troponin I 0.044 H* (0.000-0.034) ng/mL Total Protein 6.4 (6.3-8.2) g/dL Albumin 3.9 (3.5-5.0) g/dL Lipase 191 (23-300) U/L 12/03/24 12/03/24 12/03/24 Range/Units 21:06 21:06 22:57 WBC 4.07 L (4.50-10.00) 10*3/uL RBC 4.58 (4.40-5.60) 10*6/uL Hgb 12.6 L (13.0-17.0) g/dL Hct 38.6 L (39.6-50.0) % MCV 84.3 (80.0-97.0) fL MCH 27.5 (27.0-32.0) pg MCHC 32.6 (32.0-37.0) g/dL Plt Count 143 (140-440) 10*3/uL MPV 10.8 (9.5-12.2) fL Immature Gran % (Auto) 1.0 % Neutrophils % 78.1 % Lymphocytes % 15.5 % Monocytes % 4.7 % Eosinophils % 0.5 % Basophils % 0.2 % Immature Gran # 0.04 (0.00-0.04) 10*3/uL Neutrophils # 3.18 (1.80-7.70) 10*3/uL Lymphocytes # 0.63 L (0.90-5.00) 10*3/uL Monocytes # 0.19 L (0.20-1.00) 10*3/uL Eosinophils # 0.02 L (0.04-0.35) 10*3/uL Basophils # 0.01 (0.00-0.10) 10*3/uL PT 12.1 (10.0-12.5) sec INR 1.1 (<1.2) APTT 23.2 (22.0-30.0) sec Sodium (137-145) mmol/L Potassium (3.5-5.1) mmol/L Chloride (98-107) mmol/L Carbon Dioxide (22-30) mmol/L Anion Gap mmol/L BUN (9-20) mg/dL Creatinine (0.66-1.25) mg/dL Est GFR (CKD-EPI)AfAm (>60 ml/min/1.73 sqM) Est GFR (CKD-EPI)NonAf (>60 ml/min/1.73 sqM) Glucose (74-99) mg/dL Plasma Lactic Acid Rigoberto (0.7-2.0) mmol/L Calcium (8.4-10.2) mg/dL Phosphorus (2.5-4.5) mg/dL Magnesium (1.6-2.3) mg/dL Total Bilirubin (0.2-1.3) mg/dL AST (17-59) U/L ALT (4-49) U/L Alkaline Phosphatase (38-126) U/L Troponin I 0.055 H* (0.000-0.034) ng/mL Total Protein (6.3-8.2) g/dL Albumin (3.5-5.0) g/dL Lipase (23-300) U/L - EKG Data -: EKG Interpreted by Me Disposition Clinical Impression: COPD with exacerbation, COPD (chronic obstructive pulmonary disease), Atrial flutter, Dehydration, Nausea & vomiting Disposition: HOME SELF-CARE Condition: Serious Instructions (If sedation given, give patient instructions): Acute Nausea and Vomiting (ED) Is patient prescribed a controlled substance at d/c from ED?: No Referrals: Denys Quispe MD [Primary Care Provider] - 1-2 days Time of Disposition: 00:00
[2024-12-03 19:42] VITALS: TEMP 97.6
[2024-12-03] MEDS: ONDANSETRON 4 MG/2 ML VIAL IVP STA (20:25)
[2024-12-03] MEDS: SODIUM CHLORIDE 0.9% 1,000 ML IV ONE (20:26)
[2024-12-03 20:45] LABS: ALT 23 U/L (4-49); AST 34 U/L (17-59); African American GFR (CKD) 54 (>60 ml/min/1.73 sqM); Albumin 3.9 g/dL (3.5-5.0); Alkaline Phosphatase 51 U/L (38-126); Anion Gap 8 mmol/L; Blood Urea Nitrogen 24 mg/dL (9-20); Calcium 8.2 mg/dL (8.4-10.2); Carbon Dioxide 26 mmol/L (22-30); Chloride 101 mmol/L (98-107); Glucose 98 mg/dL (74-99); Lipase 191 U/L (23-300); Magnesium 1.3 mg/dL (1.6-2.3); Non-African American GFR(CKD) 47 (>60 ml/min/1.73 sqM); Phosphorus 2.7 mg/dL (2.5-4.5); Sodium 135 mmol/L (137-145); Total Bilirubin 0.7 mg/dL (0.2-1.3); Total Protein 6.4 g/dL (6.3-8.2)
[2024-12-03] MEDS: KETOROLAC 15 MG/ML 1 ML VIAL IVP STA (21:16)
[2024-12-03] MEDS: diphenhydrAMINE 50 MG/ML 1 ML VIAL IVP STA (21:16)
[2024-12-03] MEDS: PROCHLORPERAZINE INJ 10 MG/2 ML VIAL IVP STA (21:17)
[2024-12-03] MEDS: MAGNESIUM OXIDE 400 MG TAB PO STA (21:18)
[2024-12-03 21:20] LABS: Basophils # (A) 0.01 10*3/uL (0.00-0.10); Basophils % (A) 0.2 %; Eosinophils # (A) 0.02 10*3/uL (0.04-0.35); Eosinophils % (A) 0.5 %; HCT 38.6 % (39.6-50.0); HGB 12.6 g/dL (13.0-17.0); Lymphocytes # (A) 0.63 10*3/uL (0.90-5.00); Lymphocytes % (A) 15.5 %; MCH 27.5 pg (27.0-32.0); MCHC 32.6 g/dL (32.0-37.0); MCV 84.3 fL (80.0-97.0); Mean Platelet Volume 10.8 fL (9.5-12.2); Monocytes # (A) 0.19 10*3/uL (0.20-1.00); Monocytes % (A) 4.7 %; Neutrophils # (A) 3.18 10*3/uL (1.80-7.70); Neutrophils % (A) 78.1 %; Platelet Count 143 10*3/uL (140-440); RBC 4.58 10*6/uL (4.40-5.60); RDW 18.6 % (11.5-14.5); WBC 4.07 10*3/uL (4.50-10.00)
[2024-12-03] MEDS: MAGNESIUM OXIDE 400 MG TAB PO SCH (21:20)
[2024-12-03 21:29] LABS: INR 1.1 (<1.2); Partial Thromboplastin Time 23.2 sec (22.0-30.0); Prothrombin Time 12.1 sec (10.0-12.5)
[2024-12-03] MEDS: METOPROLOL TARTRATE 5 MG/5 ML VIAL IVP STA (22:46)
[2024-12-03] MEDS: DILTIAZEM 5 MG/ML 5 ML VIAL IVP STA (22:47)
[2024-12-03] MEDS: SODIUM CHLORIDE 0.9% 500 ML 500 ML IV ONE (22:48)
[2024-12-03] MEDS: IPRATROPIUM-ALBUTEROL 3 ML NEB INHALATION STA (23:42)
[2024-12-04 00:20] VITALS: BP 110/66; PULSE 99; RESP 19
== END 2024-12-04 01:03 | disposition home or self-care (01) ==
LOC: EC 19:27
DX: I11.9 Hypertensive heart disease without heart failure (principal); I48.92 Unspecified atrial flutter; J44.1 Chronic obstructive pulmonary disease with (acute) exacerbation; E86.0 Dehydration; R11.2 Nausea with vomiting, unspecified; F17.200 Nicotine dependence, unspecified, uncomplicated; Z88.7 Allergy status to serum and vaccine; Z88.5 Allergy status to narcotic agent; Z88.0 Allergy status to penicillin
CPT/HCPCS: 36415; 94640; 93005; 80053; 83605; 83690; 83735; 84100; 84484; 85025; 85610; 85730; 99285; 96374; 96375; 96361; J1200; J0780; J2405; J1885

== ENCOUNTER 2024-12-06 01:33 | Inpatient (IN) | payer MEDICARE, OTHER ==
--- NOTE | 2024-12-06 01:57 | ED ---
General Adult HPI - General Chief complaint: Shortness of Breath Stated complaint: shortness of breath Time Seen by Provider: 12/06/24 01:43 Source: EMS Mode of arrival: EMS - History of Present Illness Initial comments: Patient is a 74-year-old gentleman past medical historyCAD, CHF, COPD, hypertension hyperlipidemia seizure disorder dementia presenting today for chest pain and shortness of breath. States began suddenly 3 hours prior to arrival. States pain is described as his lungs hurting when he takes a deep breath. Symptoms slightly improved with use of his "puffer". Denies cough or hemoptysis. Denies lightheadedness, dizziness, lower extremity swelling, nausea, vomiting, abdominal pain, recent fevers or chills. - Related Data Home Medications Medication Instructions Recorded Confirmed Cyanocobalamin (Vitamin B-12) 1,000 mcg PO DAILY@0800 08/23/22 12/06/24 [Vitamin B-12] Acetaminophen [Tylenol 8 Hour] 650 mg PO TID@0800,1399,199909/17/23 12/06/24 Atorvastatin Calcium [Lipitor] 40 mg PO HS@199909/17/23 12/06/24 Folic Acid 0.4 mg PO DAILY@0800 09/17/23 12/06/24 Levothyroxine Sodium [Synthroid] 100 mcg PO DAILY@0700 09/17/23 12/06/24 Mirtazapine 30 mg PO HS@199909/17/23 12/06/24 Budesonide-Formot 160-4.5 Mcg 2 puff INHALATION RT-BID@799,199910/16/23 12/06/24 [Symbicort 160-4.5 Mcg Inhaler] Dapagliflozin Propanediol [Farxiga] 10 mg PO DAILY@0800 10/16/23 12/06/24 Budesonide 0.5 mg INHALATION RT-BID@0900,1800 03/03/24 12/06/24 Ipratropium-Albuterol Nebulize 3 ml INHALATION RT-QID 04/13/24 12/06/24 [Duoneb 0.5 mg-3 mg/3 ml Soln] Apixaban [Eliquis] 5 mg PO BID@0800,199910/24/24 12/06/24 busPIRone HCl [Buspar] 10 mg PO BID@0800,199910/24/24 12/06/24 Diclofenac Sodium Gel [Voltaren 1% 4 gm TOPICAL QID@08,12,16,20 11/08/24 12/06/24 Gel] Pantoprazole Sodium [Protonix] 20 mg PO AC-BID@799,199911/08/24 12/06/24 Tiotropium 2.5 Mcg/Puff [Spiriva 2 puff INHALATION RT-DAILY@79911/08/24 12/06/24 Respimat 2.5 Mcg] Aspirin 81 mg PO DAILY@79911/12/24 12/06/24 Pentoxifylline [TRENtal] 400 mg PO BID-W/MEALS 11/27/24 12/06/24 Sennosides/Docusate Sodium [Senna 2 tab PO HS@199911/27/24 12/06/24 Plus 8.6-50 mg Tablet] Spironolactone [Aldactone] 12.5 mg PO DAILY@79911/27/24 12/06/24 Torsemide [Demadex] 10 mg PO DAILY@79911/27/24 12/06/24 Previous Rx's Medication Instructions Recorded Nitroglycerin Sl Tabs [Nitrostat] 0.4 mg SUBLINGUAL Q5M PRN 90 Days 09/21/23 #100 tab Metoprolol Tartrate [Lopressor] 25 mg PO BID@799,1999 #0 11/14/24 Allergies Allergy/AdvReac Type Severity Reaction Status Date / Time morphine Allergy Anaphylaxis Verified 12/06/24 10:18 Penicillins Allergy Swelling Verified 12/06/24 10:18 on entire body Influenza Virus Vaccines AdvReac Unknown Verified 12/06/24 10:18 pneumococcal vaccine AdvReac Unknown Verified 12/06/24 10:18 Review of Systems ROS Statement: Those systems with pertinent positive or pertinent negative responses have been documented in the HPI. ROS Other: All systems not noted in ROS Statement are negative. Past Medical History Past Medical History: Coronary Artery Disease (CAD), Heart Failure, COPD, Dementia, Hyperlipidemia, Hypertension, Myocardial Infarction (SD), Seizure Disorder, Syncope, Thyroid Disorder Additional Past Medical History / Comment(s): Ischemic cardiomyopathy, EF 20- 25%, last seizure about 2 yrs ago, hypothyroid.neuropathy "WHEN HE WORKED HE HAD A CRUSHING INJURY -COLLAPSED LUNGS C/T AND HAS CHRONIC BACK PAIN"" pt states he is schizophrenic/bipolar. TRIPLE A REPAIR AUG 2022 Last Myocardial Infarction Date:: unk History of Any Multi-Drug Resistant Organisms: None Reported Past Surgical History: AICD, Back Surgery, Coronary Bypass/CABG, Heart Catheterization, Heart Catheterization With Stent Additional Past Surgical History / Comment(s): 1995 CABG 4 vessel in [place], has had 2"HEART CATHS/had 2 STENTS after cabg sx.pt stated they were done in [facility]. "sx on tailbone, cortisone injections, devin inguinal hernia repair Past Anesthesia/Blood Transfusion Reactions: No Reported Reaction Date of Last Stent Placement:: 1995 Type of Cardiac Device: AICD Device Placement Date:: 1995 in [facility] Past Psychological History: Anxiety, Depression, Schizoaffective Disorder, Schizophrenia Smoking Status: Current every day smoker Past Alcohol Use History: None Reported Past Drug Use History: None Reported - Past Family History Mother Family Medical History: Respiratory Disorder Additional Family Medical History / Comment(s): Mother had TB Father Additional Family Medical History / Comment(s): Father was an alcoholic, was killed in a motor vehicle accident General Exam - General Exam Comments Initial Comments: PE: CONSTITUTIONAL: [no apparent distress, well appearing] SKIN: [warm, dry, no jaundice, hives or petechiae] EYES:[ pupils are equally round, extraocular movements intact without nystagmus, clear conjunctiva, non-icteric sclera] HENT: [normocephalic, atraumatic, moist mucus membranes, oropharynx clear without exudates] NECK: , [Full range of motion, normal appearance] PULMONARY: [Decreased air movement throughout all lung palomo, questionable crackles right lower lung field without rhonchi, rales or stridor, normal excursion no accessory muscle use ] CARDIOVASCULAR:[ regular rate, rhythm, normal S1 and S2. No appreciated murmurs, rubs or gallops. Strong radial pulses with intact distal perfusion. No lower extremity edema] GASTROINTESTINAL: [soft, active bowel sounds throughout, non-tender, non- distended, no palpable masses, no rebound or guarding. No hepatosplenomegaly] GENITOURINARY: MUSCULOSKELETAL: [Extremities have no gross deformity, no edema, redness, or swelling. No calf swelling ] NEUROLOGIC: [_a/o x 3, GCS 15, normal mentation and speech. Moves all extremities x 4 without motor or sensory deficit] PSYCHIATRIC:[ _normal mood and affect, thought process is clear and linear] Course Vital Signs 12/06/24 12/06/24 12/06/24 01:35 01:42 02:10 Temperature 98.0 F Pulse Rate 96 93 Pulse Rate [ Left] Respiratory 18 18 Rate Blood Pressure 105/70 Blood Pressure [Left Arm] O2 Sat by Pulse 97 Oximetry 12/06/24 12/06/24 12/06/24 02:15 02:24 04:00 Temperature Pulse Rate 94 90 92 Pulse Rate [ Left] Respiratory 18 18 Rate Blood Pressure 116/67 108/76 Blood Pressure [Left Arm] O2 Sat by Pulse 98 98 Oximetry 12/06/24 12/06/24 06:25 07:00 Temperature 98.4 F Pulse Rate 94 Pulse Rate [ 97 Left] Respiratory 18 19 Rate Blood Pressure 137/96 Blood Pressure 117/71 [Left Arm] O2 Sat by Pulse 98 100 Oximetry EKG Findings - EKG Comments: EKG Findings:: Sinus rhythm, rate 95 bpm intervals within acceptable limits, left axis deviation, artifact present limiting interpretation, Compared to EKG performed on 12/03/2024, T wave flattening in lead I new from prior, new T wave inversion lead aVL, otherwise no new significant ST elevations or depressions Medical Decision Making - Medical Decision Making Was pt. sent in by a medical professional or institution (, PA, CAN CAPPER, urgent care, hospital, or fci...) When possible be specific sent in from [facility] Did you speak to anyone other than the patient for history (EMS, parent, family, police, friend...)? What history was obtained from this source @ -No Did you review nursing and triage notes (agree or disagree)? Why? @ -I reviewed and agree with nursing and triage notes Were old charts reviewed (outside hosp., previous admission, EMS record, old EKG, old radiological studies, urgent care reports/EKG's, fci records)? Report findings @ -Medical records reviewed on chart review patient was last here in 12/03/2024t that time had presented for nausea and vomiting, shortness of breath, patient ultimately was recommended inpatient evaluation however refused to stay in the hospital and was discharged home Differential Diagnosis (chest pain, altered mental status, abdominal pain women, abdominal pain men, vaginal bleeding, weakness, fever, dyspnea, syncope, headache, dizziness, GI bleed, back pain, seizure, CVA, palpatations, mental health, musculoskeletal)? Differential Chest Pain: Stable Angina, Unstable Angina, STEMI, NSTEMI Aortic Dissection, pericarditis, pleurisy, chostochondirits, Pneumothorax, Musculoskeletal, Esophageal Spasm GERD, Cholecystitis, Pancreatitis, Zoster, this is not meant to be an all-inc lusive list. EKG interpreted by me (3pts min.). @ -As above X-rays interpreted by me (1pt min.). Personally reviewed this x-ray, shows possible mild cardiomegaly and increased interstitial markings consistent with pulmonary edema without new pleural effusions or consolidations, was read by radiologist as no acute process CT interpreted by me (1pt min.). @ -None done U/S interpreted by me (1pt. min.). @ -None done What testing was considered but not performed or refused? (CT, X-rays, U/S, labs)? Why? @ -None What meds were considered but not given or refused? Why? @ -None Did you discuss the management of the patient with other professionals (professionals i.e. , PA, CAN CAPPER, lab, RT, psych nurse, social research assistant, pie topper, teacher, accounts officer, telephonic nurse case manager)? Give summary @ -No Was smoking cessation discussed for >3mins.? @ -No Was critical care preformed (if so, how long)? @ Yes 35 minutes Were there social determinants of health that impacted care today? How? (Homelessness, low income, unemployed, alcoholism, drug addiction, transportation, low edu. Level, literacy, decrease access to med. care, care home, rehab)? @ -No Was there de-escalation of care discussed even if they declined (Discuss DNR or withdrawal of care, Hospice)? @ -No What co-morbidities impacted this encounter? (DM, HTN, Smoking, COPD, CAD, Cancer, CVA, ARF, Chemo, Hep., AIDS, mental health diagnosis, sleep apnea, morbid obesity)? @ -COPD, hypertension hyperlipidemia,'s dementia, prior CVA, CAD Was patient admitted / discharged? Hospital course, mention meds given and route, prescriptions, significant lab abnormalities, going to OR and other pertinent info. Admission- Pt is a pleasant 74-year-old gentleman presenting today for chest pain and shortness of breath, chest pain described as pleuritic to worsen with deep breaths "states it feels like it is his lungs". Plan for comprehensive labs, DuoNebs, steroids and pain control. Labs significant for BNP elevation 3860, troponin 0.039 however this is decreased from recent visit on 12/03/2024, troponin was 0.055. Exam and labs are consistent with CHF exacerbation. Ordered 80 mg IV Lasix. Of note chest x-ray was read as no acute process however on my review of chest x-ray it does appear that he has increased interstitial markings consistent with pulmonary edema though no new pleural effusions, no new consolidations. Updated pt to findings and POC. Patient admitted to Dr. Verdin in stable condition. Undiagnosed new problem with uncertain prognosis? @ -No Drug Therapy requiring intensive monitoring for toxicity (Heparin, Nitro, Insulin, Cardizem)? @ -No Were any procedures done? @ -No Diagnosis/symptom? @Acute CHF exacerbation Acute, or Chronic, or Acute on Chronic? @ -Acute Uncomplicated (without systemic symptoms) or Complicated (systemic symptoms)? @Complicate Side effects of treatment? @ -No Exacerbation, Progression, or Severe Exacerbation? exacerbation Poses a threat to life or bodily function? How? (Chest pain, USA, SD, pneumonia, PE, COPD, DKA, ARF, appy, cholecystitis, CVA, Diverticulitis, Homicidal, Suicidal, threat to staff... and all critical care pts) Yes, if left untreated could progress to respiratory failure - Lab Data Result diagrams: 12/06/24 01:53 12/08/24 04:05 Lab Results 12/06/24 12/06/24 12/06/24 Range/Units 01:53 01:53 01:53 WBC 4.85 (4.50-10.00) 10*3/uL RBC 4.43 (4.40-5.60) 10*6/uL Hgb 11.9 L (13.0-17.0) g/dL Hct 37.8 L (39.6-50.0) % MCV 85.3 (80.0-97.0) fL MCH 26.9 L (27.0-32.0) pg MCHC 31.5 L (32.0-37.0) g/dL Plt Count 145 (140-440) 10*3/uL MPV 10.2 (9.5-12.2) fL Immature Gran % (Auto) 0.4 % Neutrophils % 61.1 % Lymphocytes % 28.2 % Monocytes % 9.3 % Eosinophils % 0.8 % Basophils % 0.2 % Immature Gran # 0.02 (0.00-0.04) 10*3/uL Neutrophils # 2.96 (1.80-7.70) 10*3/uL Lymphocytes # 1.37 (0.90-5.00) 10*3/uL Monocytes # 0.45 (0.20-1.00) 10*3/uL Eosinophils # 0.04 (0.04-0.35) 10*3/uL Basophils # 0.01 (0.00-0.10) 10*3/uL PT 12.9 H (10.0-12.5) sec INR 1.2 H (<1.2) APTT 29.8 (22.0-30.0) sec Sodium 136 L (137-145) mmol/L Potassium 3.9 (3.5-5.1) mmol/L Chloride 99 (98-107) mmol/L Carbon Dioxide 25 (22-30) mmol/L Anion Gap 12 mmol/L BUN 24 H (9-20) mg/dL Creatinine 1.38 H (0.66-1.25) mg/dL Est GFR (CKD-EPI)AfAm 58 (>60 ml/min/1.73 sqM) Est GFR (CKD-EPI)NonAf 50 (>60 ml/min/1.73 sqM) Glucose 94 (74-99) mg/dL Calcium 8.2 L (8.4-10.2) mg/dL Total Bilirubin 0.5 (0.2-1.3) mg/dL AST 36 (17-59) U/L ALT 22 (4-49) U/L Alkaline Phosphatase 45 (38-126) U/L Troponin I (0.000-0.034) ng/mL NT-Pro-B Natriuret Pep 3860 pg/mL Total Protein 6.2 L (6.3-8.2) g/dL Albumin 3.8 (3.5-5.0) g/dL Influenza Type A (PCR) (Not Detectd) Influenza Type B (PCR) (Not Detectd) RSV (PCR) (Not Detectd) SARS-CoV-2 (PCR) (Not Detectd) 12/06/24 12/06/24 Range/Units 01:53 02:06 WBC (4.50-10.00) 10*3/uL RBC (4.40-5.60) 10*6/uL Hgb (13.0-17.0) g/dL Hct (39.6-50.0) % MCV (80.0-97.0) fL MCH (27.0-32.0) pg MCHC (32.0-37.0) g/dL Plt Count (140-440) 10*3/uL MPV (9.5-12.2) fL Immature Gran % (Auto) % Neutrophils % % Lymphocytes % % Monocytes % % Eosinophils % % Basophils % % Immature Gran # (0.00-0.04) 10*3/uL Neutrophils # (1.80-7.70) 10*3/uL Lymphocytes # (0.90-5.00) 10*3/uL Monocytes # (0.20-1.00) 10*3/uL Eosinophils # (0.04-0.35) 10*3/uL Basophils # (0.00-0.10) 10*3/uL PT (10.0-12.5) sec INR (<1.2) APTT (22.0-30.0) sec Sodium (137-145) mmol/L Potassium (3.5-5.1) mmol/L Chloride (98-107) mmol/L Carbon Dioxide (22-30) mmol/L Anion Gap mmol/L BUN (9-20) mg/dL Creatinine (0.66-1.25) mg/dL Est GFR (CKD-EPI)AfAm (>60 ml/min/1.73 sqM) Est GFR (CKD-EPI)NonAf (>60 ml/min/1.73 sqM) Glucose (74-99) mg/dL Calcium (8.4-10.2) mg/dL Total Bilirubin (0.2-1.3) mg/dL AST (17-59) U/L ALT (4-49) U/L Alkaline Phosphatase (38-126) U/L Troponin I 0.039 H* (0.000-0.034) ng/mL NT-Pro-B Natriuret Pep pg/mL Total Protein (6.3-8.2) g/dL Albumin (3.5-5.0) g/dL Influenza Type A (PCR) Not Detected (Not Detectd) Influenza Type B (PCR) Not Detected (Not Detectd) RSV (PCR) Not Detected (Not Detectd) SARS-CoV-2 (PCR) Not Detected (Not Detectd) Disposition Clinical Impression: Acute exacerbation of CHF (congestive heart failure) Disposition: ADMITTED IP TO THIS [facility] Condition: Stable
[2024-12-06 02:02] LABS: Basophils # (A) 0.01 10*3/uL (0.00-0.10); Basophils % (A) 0.2 %; Eosinophils # (A) 0.04 10*3/uL (0.04-0.35); Eosinophils % (A) 0.8 %; HCT 37.8 % (39.6-50.0); HGB 11.9 g/dL (13.0-17.0); Lymphocytes # (A) 1.37 10*3/uL (0.90-5.00); Lymphocytes % (A) 28.2 %; MCH 26.9 pg (27.0-32.0); MCHC 31.5 g/dL (32.0-37.0); MCV 85.3 fL (80.0-97.0); Mean Platelet Volume 10.2 fL (9.5-12.2); Monocytes # (A) 0.45 10*3/uL (0.20-1.00); Monocytes % (A) 9.3 %; Neutrophils # (A) 2.96 10*3/uL (1.80-7.70); Neutrophils % (A) 61.1 %; Platelet Count 145 10*3/uL (140-440); RBC 4.43 10*6/uL (4.40-5.60); RDW 18.6 % (11.5-14.5); WBC 4.85 10*3/uL (4.50-10.00)
[2024-12-06] MEDS: IPRATROPIUM 0.5 MG/2.5 ML NEBU INHALATION STA (02:07)
[2024-12-06] MEDS: ALBUTEROL NEBULIZED 2.5 MG/3 ML INHALATION STA (02:07)
[2024-12-06 02:14] LABS: INR 1.2 (<1.2); Partial Thromboplastin Time 29.8 sec (22.0-30.0); Prothrombin Time 12.9 sec (10.0-12.5)
[2024-12-06] MEDS: methylPREDNISolone SOD SUCCI 125 MG/2 ML VIAL IV STA (02:22)
[2024-12-06 02:24] LABS: ALT 22 U/L (4-49); AST 36 U/L (17-59); African American GFR (CKD) 58 (>60 ml/min/1.73 sqM); Albumin 3.8 g/dL (3.5-5.0); Alkaline Phosphatase 45 U/L (38-126); Anion Gap 12 mmol/L; Blood Urea Nitrogen 24 mg/dL (9-20); Calcium 8.2 mg/dL (8.4-10.2); Carbon Dioxide 25 mmol/L (22-30); Chloride 99 mmol/L (98-107); Glucose 94 mg/dL (74-99); Non-African American GFR(CKD) 50 (>60 ml/min/1.73 sqM); Potassium 3.9 mmol/L (3.5-5.1); Sodium 136 mmol/L (137-145); Total Bilirubin 0.5 mg/dL (0.2-1.3); Total Protein 6.2 g/dL (6.3-8.2)
[2024-12-06] MEDS: HYDROmorphone 0.5 MG/0.5 ML SYRINGE IVP STA (02:24)
[2024-12-06] MEDS: ASPIRIN 81 MG PO STA (02:24)
[2024-12-06 02:32] LABS: NT-Pro-B-Type Natriuretic Pept 3860 pg/mL
[2024-12-06 02:52] LABS: Influenza A Not Detected (Not Detectd); Influenza B Not Detected (Not Detectd); RSV Not Detected (Not Detectd)
--- NOTE | 2024-12-06 03:14 | XR ---
EXAM: XR Chest, 2 Views CLINICAL HISTORY: ITS.REASON XR Reason: difficulty breathing TECHNIQUE: Frontal and lateral views of the chest. COMPARISON: No relevant prior studies available. FINDINGS: Lungs: Unremarkable. No consolidation. Pleural space: Unremarkable. No pneumothorax. Heart: Unremarkable. No cardiomegaly. Mediastinum: Unremarkable. Bones/joints: Sternotomy wires. Tubes, lines and devices: AICD/pacemaker. IMPRESSION: No acute findings in the chest.
[2024-12-06] MEDS: FUROSEMIDE 10 MG/ML 10 ML VIAL IV STA (04:04)
[2024-12-06] MEDS ORDERED: NITROGLYCERIN SL TABS 0.4 MG TAB SUBLINGUAL PRN (04:05)
[2024-12-06] MEDS: PANTOPRAZOLE 40 MG TABLET PO SCH (08:50)
[2024-12-06] MEDS: METOPROLOL TARTRATE 25 MG TAB PO SCH (08:50)
[2024-12-06] MEDS: DAPAGLIFLOZIN PROPANEDIOL 10 MG TABLET PO SCH (08:50)
[2024-12-06] MEDS: LEVOTHYROXINE 100 MCG TAB PO SCH (08:50)
[2024-12-06] MEDS: APIXABAN 5 MG TAB PO SCH (08:50)
[2024-12-06] MEDS: ASPIRIN 81 MG PO SCH (08:50)
[2024-12-06] MEDS: SPIRONOLACTONE 25 MG TAB PO SCH (08:50)
[2024-12-06] MEDS: busPIRone HCl 10 MG TAB PO SCH (08:57)
[2024-12-06] MEDS: PENTOXIFYLLINE 400 MG TABLET.ER PO SCH (08:57)
[2024-12-06] MEDS ORDERED: BUDESONIDE 0.5 MG/2 ML NEBU INHALATION SCH (09:00)
[2024-12-06] MEDS: IPRATROPIUM-ALBUTEROL 3 ML NEB INHALATION SCH (09:41)
[2024-12-06] MEDS: BUDESONIDE 0.5 MG/2 ML NEBU INHALATION SCH (09:41)
[2024-12-06] MEDS: SYMBICORT 160-4.5 MCG INHALER INHALATION SCH (09:41)
[2024-12-06] MEDS: TIOTROPIUM 2.5 MCG INHALER INHALATION SCH (09:42)
--- NOTE | 2024-12-06 10:03 | P.CRDCN ---
History of Present Illness History of present illness: HISTORY OF PRESENT ILLNESS: This is a 74-year-old male with a past medical history significant for coronary artery disease with previous CABG in 1995 in [place], congestive heart failu re, dementia, hyperlipidemia, hypertension, seizure disorder, thyroid disorder, AICD implantation 10 years ago in [place], AAA repair by Dr. Cook, ischemic cardiomyopathy, nicotine dependence, COPD, and paroxysmal atrial fibrillation/flutter. Patient follows in the office with Dr. Smith. We have been asked to see the patient in consultation for congestive heart failure. Patient examined at the bedside. Patient presented to the hospital with a chief complaint of shortness of breath. Patient states he has been feeling short of breath for the past few days. It is noted that the patient was recently hospitalized for acute kidney injury. He was discharged home back on his diuretics. Patient states he has been compliant with his medications. He is a current cigarette smoker and smokes 1/4 pack/day DIAGNOSTICS: - EKG reveals atrial fibrillation/flutter with controlled ventricular rate. - Chest xray negative for acute findings. - Laboratory data: WBC 4.85. Hemoglobin 11.9. Platelet count 145. Sodium 136. Potassium 3.9. BUN 24. Creatinine 1.38. Troponin 0.039. 0.039. proBNP 3860. - Current home cardiac medications have not been verified at the time of this dictation. - Most recent echocardiogram obtained in October 2024 revealed ejection fraction 2024%, severe hypokinesis more noted in inferior apical wall, mild pulmonary hypertension, moderate to severe MR, mild to moderate tricuspid regurgitation - Cardiac catheterization history: 09/20/2023 revealing [place] CAD including 100% proximal LAD stenosis, 75% proximal circumflex stenosis, 100% RCA stenosis. Occluded SVG to PDA, patent FIORE to LAD, SVG to diagonal with 95% stenosis. No other remaining grafts noted by aortogram. Status post PCI SVG to diagonal approximately and drug-eluting stent at distal SVG into diagonal REVIEW OF SYSTEMS: At the time of my exam: CONSTITUTIONAL: Denies fever or chills. HEENT: Denies blurred vision, vision changes, or eye pain. Denies hemoptysis CARDIOVASCULAR: Denies chest pain. Denies orthopnea. Denies PND. Denies palpitations RESPIRATORY: Reports shortness of breath. GASTROINTESTINAL: Denies abdominal pain. Denies nausea or vomiting. HEMATOLOGIC: Denies bleeding disorders. GENITOURINARY: Denies any blood in urine. SKIN: Denies pruitis. Denies rash. PHYSICAL EXAM: VITAL SIGNS: Reviewed. GENERAL: Well-developed in no acute distress. HEENT: Head is normocephalic. Pupils are equal, round. Sclerae anicteric. Mucous membranes of the mouth are moist. Neck supple. No JVD or thyromegaly LUNGS: Respirations even and unlabored. Lungs with mild crackles at the bases. HEART: Irregular rate and rhythm. S1 and S2 heard. Systolic murmur noted. ABDOMEN: Soft. Nondistended. Nontender. EXTREMITIES: Normal range of motion. No clubbing or cyanosis. Peripheral puls es intact. No lower extremity edema NEUROLOGIC: Awake and alert. Oriented x 3. ASSESSMENT: Shortness of breath Acute on chronic heart failure with reduced EF Coronary artery disease with previous CABG and subsequent stenting Ischemic cardiomyopathy, 20 to 25% Paroxysmal atrial fibrillation/typical atrial flutter Mild pulmonary hypertension Moderate to severe mitral regurgitation Hypertension Hyperlipidemia History of AICD implantation History of AAA repair History of seizure disorder History of lightheadedness Nicotine dependence PLAN: No need to repeat echocardiogram as this was performed in October 2024 Resume home cardiac medications Discontinue Demadex. Continue IV Lasix 40 mg every 12 hours Daily weights, accurate intake and output, monitoring of kidney function Smoking cessation recommended. Patient to be referred to [place] quit line upon discharge. Further recommendations pending patient course Nurse practitioner note has been reviewed by physician. Signing provider agrees with the documented findings, assessment, and plan of care documented by [employer] as a scribe. Past Medical History Past Medical History: Coronary Artery Disease (CAD), Heart Failure, COPD, Dementia, Hyperlipidemia, Hypertension, Myocardial Infarction ([place]), Seizure Disorder, Syncope, Thyroid Disorder Additional Past Medical History / Comment(s): Ischemic cardiomyopathy, EF 20- 25%, last seizure about 2 yrs ago, hypothyroid.neuropathy "WHEN HE WORKED HE HAD A CRUSHING INJURY -COLLAPSED LUNGS C/T AND HAS CHRONIC BACK PAIN"" pt states he is schizophrenic/bipolar. TRIPLE A REPAIR AUG 2022 Last Myocardial Infarction Date:: unk History of Any Multi-Drug Resistant Organisms: None Reported Past Surgical History: AICD, Back Surgery, Coronary Bypass/CABG, Heart Catheterization, Heart Catheterization With Stent Additional Past Surgical History / Comment(s): 1995 CABG 4 vessel in [place], has had 2"HEART CATHS/had 2 STENTS after cabg sx.pt stated they were done in [facility]. "sx on tailbone, cortisone injections, devin inguinal hernia repair Past Anesthesia/Blood Transfusion Reactions: No Reported Reaction Date of Last Stent Placement:: 1995 Type of Cardiac Device: AICD Device Placement Date:: 1995 in [facility] Past Psychological History: Anxiety, Depression, Schizoaffective Disorder, S chizophrenia Additional Psychological History / Comment(s): . Smoking Status: Current every day smoker Past Alcohol Use History: None Reported Additional Past Alcohol Use History / Comment(s): . Past Drug Use History: None Reported Additional Drug Use History / Comment(s): Pt states he smokes marijuana on occasion. - Past Family History Mother Family Medical History: Respiratory Disorder Additional Family Medical History / Comment(s): Mother had TB Father Additional Family Medical History / Comment(s): Father was an alcoholic, was k illed in a motor vehicle accident Medications and Allergies Home Medications Medication Instructions Recorded Confirmed Type Cyanocobalamin (Vitamin B-12) 1,000 mcg PO DAILY@0800 08/23/22 11/27/24 History [Vitamin B-12] Acetaminophen [Tylenol 8 Hour] 650 mg PO TID@0800,1400,199909/17/23 11/27/24 History Atorvastatin Calcium [Lipitor] 40 mg PO HS@199909/17/23 11/27/24 History Folic Acid 0.4 mg PO DAILY@0800 09/17/23 11/27/24 History Levothyroxine Sodium [Synthroid] 100 mcg PO DAILY@0700 09/17/23 11/27/24 History Mirtazapine 30 mg PO HS@199909/17/23 11/27/24 History Nitroglycerin Sl Tabs [Nitrostat] 0.4 mg SUBLINGUAL Q5M PRN 90 Days 09/21/23 11/27/24 Rx #100 tab Budesonide-Formot 160-4.5 Mcg 2 puff INHALATION RT-BID@0800,199910/16/23 11/27/24 History [Symbicort 160-4.5 Mcg Inhaler] Dapagliflozin Propanediol [Farxiga] 10 mg PO DAILY@0800 10/16/23 11/27/24 History Budesonide 0.5 mg INHALATION RT-BID@0900,1800 03/03/24 11/27/24 History Ipratropium-Albuterol Nebulize 3 ml INHALATION RT-QID 04/13/24 11/27/24 History [Duoneb 0.5 mg-3 mg/3 ml Soln] Apixaban [Eliquis] 5 mg PO BID@799,199910/24/24 11/27/24 History busPIRone HCl [Buspar] 10 mg PO BID@0800,199910/24/24 11/27/24 History Diclofenac Sodium Gel [Voltaren 1% 4 gm TOPICAL QID@,,,11/08/24 11/27/24 History Gel] Pantoprazole Sodium [Protonix] 20 mg PO AC-BID@799,199911/08/24 11/27/24 History Tiotropium 2.5 Mcg/Puff [Spiriva 2 puff INHALATION RT-DAILY@79911/08/24 11/27/24 History Respimat 2.5 Mcg] Aspirin 81 mg PO DAILY@79911/12/24 11/27/24 History Metoprolol Tartrate [Lopressor] 25 mg PO BID@799,1999 #0 11/14/24 11/27/24 Rx Pentoxifylline [TRENtal] 400 mg PO BID-W/MEALS 11/27/24 11/27/24 History Sennosides/Docusate Sodium [Senna 2 tab PO HS@199911/27/24 11/27/24 History Plus 8.6-50 mg Tablet] Spironolactone [Aldactone] 12.5 mg PO DAILY@79911/27/24 11/27/24 History Torsemide [Demadex] 10 mg PO DAILY@0811/27/24 11/27/24 History Allergies Allergy/AdvReac Type Severity Reaction Status Date / Time morphine Allergy Anaphylaxis Verified 12/06/24 01:41 Penicillins Allergy Swelling Verified 12/06/24 01:41 on entire body Influenza Virus Vaccines AdvReac Unknown Verified 12/06/24 01:41 pneumococcal vaccine AdvReac Unknown Verified 12/06/24 01:41 Physical Exam Vitals: Vital Signs Temp Pulse Pulse Resp BP BP Pulse Ox 12/06/24 09:43 68 12/06/24 07:00 98.4 F 97 19 117/71 100 12/06/24 06:25 94 18 137/96 98 12/06/24 04:00 92 18 108/76 98 12/06/24 02:24 90 12/06/24 02:15 94 18 116/67 98 12/06/24 02:10 93 12/06/24 01:42 18 12/06/24 01:35 98.0 F 96 18 105/70 97 Intake and Output 12/05/24 12/06/24 12/06/24 22:59 06:59 14:59 Intake Total 354 Output Total 500 Balance -500 354 Intake: Oral 354 Output: Urine 500 Other: Voiding Method Toilet Weight 74.843 kg 74.843 kg Results 12/06/24 01:53 12/06/24 01:53 Cardiac Enzymes 12/06/24 12/06/24 12/06/24 Range/Units 01:53 01:53 05:13 AST 36 (17-59) U/L Troponin I 0.039 H* 0.039 H* (0.000-0.034) ng/mL Coagulation 12/06/24 Range/Units 01:53 PT 12.9 H (10.0-12.5) sec APTT 29.8 (22.0-30.0) sec CBC 12/06/24 Range/Units 01:53 WBC 4.85 (4.50-10.00) 10*3/uL RBC 4.43 (4.40-5.60) 10*6/uL Hgb 11.9 L (13.0-17.0) g/dL Hct 37.8 L (39.6-50.0) % Plt Count 145 (140-440) 10*3/uL Comprehensive Metabolic Panel 12/06/24 Range/Units 01:53 Sodium 136 L (137-145) mmol/L Potassium 3.9 (3.5-5.1) mmol/L Chloride 99 (98-107) mmol/L Carbon Dioxide 25 (22-30) mmol/L BUN 24 H (9-20) mg/dL Creatinine 1.38 H (0.66-1.25) mg/dL Glucose 94 (74-99) mg/dL Calcium 8.2 L (8.4-10.2) mg/dL AST 36 (17-59) U/L ALT 22 (4-49) U/L Alkaline Phosphatase 45 (38-126) U/L Total Protein 6.2 L (6.3-8.2) g/dL Albumin 3.8 (3.5-5.0) g/dL Current Medications Generic Name Dose Route Start Last Admin Trade Name Freq PRN Reason Stop Dose Admin Albuterol/Ipratropium 3 ml 12/06/24 08:00 12/06/24 09:41 Ipratropium-Albuterol 3 Ml Neb INHALATION 3 ml RT-QID RADHA Administration Apixaban 5 mg 12/06/24 08:00 12/06/24 08:50 Apixaban 5 Mg Tab PO 5 mg BID@ [facility] Administration Protocol Aspirin 81 mg 12/06/24 08:00 12/06/24 08:50 Aspirin 81 Mg PO 81 mg DAILY@799 [facility] Administration Atorvastatin Calcium 40 mg 12/06/24 20:00 Atorvastatin 40 Mg Tab PO HS@1999 [facility] Budesonide 0.5 mg 12/06/24 08:00 12/06/24 09:41 Budesonide 0.5 Mg/2 Ml Nebu INHALATION 0.5 mg RT-BID [facility] Administration Budesonide/Formoterol Fumarate 2 puff 12/06/24 08:00 12/06/24 09:41 Symbicort 160-4.5 Mcg Inhaler INHALATION 2 puff RT-BID@ [facility] Administration Buspirone HCl 10 mg 12/06/24 08:00 12/06/24 08:57 Buspirone Hcl 10 Mg Tab PO 10 mg BID@ [facility] Administration Dapagliflozin 10 mg 12/06/24 08:00 12/06/24 08:50 Dapagliflozin Propanediol 10 Mg Tablet PO 10 mg DAILY@08 [facility] Administration Furosemide 40 mg 12/06/24 16:00 Furosemide 10 Mg/Ml 4 Ml Vial IV Q12H [facility] Levothyroxine Sodium 100 mcg 12/06/24 07:00 12/06/24 08:50 Levothyroxine 100 Mcg Tab PO 100 mcg DAILY@0700 [facility] Administration Metoprolol Tartrate 25 mg 12/06/24 08:00 12/06/24 08:50 Metoprolol Tartrate 25 Mg Tab PO 25 mg BID@ [facility] Administration Mirtazapine 30 mg 12/06/24 20:00 Mirtazapine 15 Mg Tab PO HS@1999 [facility] Nitroglycerin 0.4 mg 12/06/24 04:05 Nitroglycerin Sl Tabs 0.4 Mg Tab SUBLINGUAL Q5M PRN Chest Pain Pantoprazole Sodium 20 mg 12/06/24 08:00 12/06/24 08:50 Pantoprazole 40 Mg Tablet PO 20 mg AC-BID@ [facility] Administration Pentoxifylline 400 mg 12/06/24 07:30 12/06/24 08:57 Pentoxifylline 400 Mg Tablet.Er PO 400 mg BID-W/MEALS [facility] Administration Senna/Docusate Sodium 2 each 12/06/24 20:00 Sennosides-Docusate Sodium 1 Each Tab PO HS@1999 [facility] Spironolactone 12.5 mg 12/06/24 08:00 12/06/24 08:50 Spironolactone 25 Mg Tab PO 12.5 mg DAILY@0800 [facility] Administration Tiotropium [place] 2 puff 12/06/24 08:00 12/06/24 09:52 Tiotropium 2.5 Mcg Inhaler INHALATION Not Given RT-DAILY@0800 [facility] Intake and Output 12/05/24 12/06/24 12/06/24 22:59 06:59 14:59 Intake Total 354 Output Total 500 Balance -500 354 Intake: Oral 354 Output: Urine 500 Other: Voiding Method Toilet Weight 74.843 kg 74.843 kg Patient Weight 12/07/24 06:59 Weight 74.843 kg 12/06/24 01:53 12/06/24 01:53
[2024-12-06] MEDS: TORSEMIDE 20 MG TAB PO SCH (11:18)
[2024-12-06 14:25] VITALS: BMI 26.6
[2024-12-06] MEDS: FUROSEMIDE 10 MG/ML 4 ML VIAL IV SCH (17:51)
[2024-12-06] MEDS: methylPREDNISolone SOD SUCCI 125 MG/2 ML VIAL IV SCH (17:52)
[2024-12-06] MEDS: SENNOSIDES-DOCUSATE SODIUM 1 EACH TAB PO SCH (22:20)
[2024-12-06] MEDS: MIRTAZAPINE 15 MG TAB PO SCH (22:21)
[2024-12-06] MEDS: ATORVASTATIN 40 MG TAB PO SCH (22:21)
[2024-12-07 08:26] LABS: BUN/Creat Ratio 17.33 Ratio (12.00-20.00); Calcium 8.4 mg/dL (8.7-10.3); Chloride 99 mmol/L (96-109); Glucose 163 mg/dL (70-110); Potassium 4.3 mmol/L (3.5-5.5); Sodium 138 mmol/L (135-145)
[2024-12-07] MEDS: CYANOCOBALAMIN 500 MCG TAB PO SCH (09:05)
--- NOTE | 2024-12-07 13:54 | P.HPIM ---
History of Present Illness H&P Date: 12/07/24 Chief Complaint: Shortness of breath 74-year-old male came into the hospital with progressive increasing shortness of breath some chest discomfort as well denies any chest pains however denies any cough fever chills patient is still actively smoking of note that slight impro vement in the breathing difficulty was noted with using MDI. On suppressive questioning denies any cough fever chills, denies any lightheadedness or dizziness, denies any swelling nausea vomiting diarrhea abdominal pain fever chills. His significant labs include white cell count 4800, hemoglobin h ematocrit is 11.9/37, platelet count of 145, coags okay, sodium 130 depression 3.9 BUN/creatinine is 24 1.38 troponin 0.039-second sac remains the same. BNP is 3860, influenza AMB RSV and COVID testing has been negative chest x-ray unremarkable stable AICD His prior medical history significant for vitamin B12 deficiency, dyslipidemia, hypothyroidism, COPD, chronic hypoxic respiratory failure, A-fib, coronary artery disease, heart failure, CABG history of cardiac cath angiogram, hypertension hypertensive cardiovascular seizure disorder. Review of Systems All systems: negative Past Medical History Past Medical History: Coronary Artery Disease (CAD), Heart Failure, COPD, Dementia, Hyperlipidemia, Hypertension, Myocardial Infarction ([place]), Seizure Disorder, Syncope, Thyroid Disorder Additional Past Medical History / Comment(s): Ischemic cardiomyopathy, EF 20- 25%, last seizure about 2 yrs ago, hypothyroid.neuropathy "WHEN HE WORKED HE HAD A CRUSHING INJURY -COLLAPSED LUNGS C/T AND HAS CHRONIC BACK PAIN"" pt states he is schizophrenic/bipolar. TRIPLE A REPAIR AUG 2022 Last Myocardial Infarction Date:: unk History of Any Multi-Drug Resistant Organisms: None Reported Past Surgical History: AICD, Back Surgery, Coronary Bypass/CABG, Heart Catheterization, Heart Catheterization With Stent Additional Past Surgical History / Comment(s): 1995 CABG 4 vessel in [place], has had 2"HEART CATHS/had 2 STENTS after cabg sx.pt stated they were done in [facility]. "sx on tailbone, cortisone injections, devin inguinal hernia repair Past Anesthesia/Blood Transfusion Reactions: No Reported Reaction Date of Last Stent Placement:: 1995 Type of Cardiac Device: AICD Device Placement Date:: 1995 in [facility] Past Psychological History: Anxiety, Depression, Schizoaffective Disorder, Schizophrenia Additional Psychological History / Comment(s): . Smoking Status: Current every day smoker Past Alcohol Use History: None Reported Additional Past Alcohol Use History / Comment(s): . Past Drug Use History: None Reported Additional Drug Use History / Comment(s): Pt states he smokes marijuana on occasion. - Past Family History Mother Family Medical History: Respiratory Disorder Additional Family Medical History / Comment(s): Mother had TB Father Additional Family Medical History / Comment(s): Father was an alcoholic, was killed in a motor vehicle accident Medications and Allergies Home Medications Medication Instructions Recorded Confirmed Type Cyanocobalamin (Vitamin B-12) 1,000 mcg PO DAILY@0800 08/23/22 12/06/24 History [Vitamin B-12] Acetaminophen [Tylenol 8 Hour] 650 mg PO TID@0800,1400,199909/17/23 12/06/24 History Atorvastatin Calcium [Lipitor] 40 mg PO HS@199909/17/23 12/06/24 History Folic Acid 0.4 mg PO DAILY@0800 09/17/23 12/06/24 History Levothyroxine Sodium [Synthroid] 100 mcg PO DAILY@0700 09/17/23 12/06/24 History Mirtazapine 30 mg PO HS@199909/17/23 12/06/24 History Nitroglycerin Sl Tabs [Nitrostat] 0.4 mg SUBLINGUAL Q5M PRN 90 Days 09/21/23 12/06/24 Rx #100 tab Budesonide-Formot 160-4.5 Mcg 2 puff INHALATION RT-BID@799,199910/16/23 12/06/24 History [Symbicort 160-4.5 Mcg Inhaler] Dapagliflozin Propanediol [Farxiga] 10 mg PO DAILY@0800 10/16/23 12/06/24 History Budesonide 0.5 mg INHALATION RT-BID@0900,1800 03/03/24 12/06/24 History Ipratropium-Albuterol Nebulize 3 ml INHALATION RT-QID 04/13/24 12/06/24 History [Duoneb 0.5 mg-3 mg/3 ml Soln] Apixaban [Eliquis] 5 mg PO BID@0800,199910/24/24 12/06/24 History busPIRone HCl [Buspar] 10 mg PO BID@799,199910/24/24 12/06/24 History Diclofenac Sodium Gel [Voltaren 1% 4 gm TOPICAL QID@,12,16,20 11/08/24 History Gel] Pantoprazole Sodium [Protonix] 20 mg PO AC-BID@799,199911/08/24 12/06/24 History Tiotropium 2.5 Mcg/Puff [Spiriva 2 puff INHALATION RT-DAILY@79911/08/24 12/06/24 History Respimat 2.5 Mcg] Aspirin 81 mg PO DAILY@79911/12/24 12/06/24 History Metoprolol Tartrate [Lopressor] 25 mg PO BID@799,1999 #0 11/14/24 12/06/24 Rx Pentoxifylline [TRENtal] 400 mg PO BID-W/MEALS 11/27/24 12/06/24 History Sennosides/Docusate Sodium [Senna 2 tab PO HS@199911/27/24 12/06/24 History Plus 8.6-50 mg Tablet] Spironolactone [Aldactone] 12.5 mg PO DAILY@79911/27/24 12/06/24 History Torsemide [Demadex] 10 mg PO DAILY@79911/27/24 12/06/24 History Allergies Allergy/AdvReac Type Severity Reaction Status Date / Time morphine Allergy Anaphylaxis Verified 12/06/24 10:18 Penicillins Allergy Swelling Verified 12/06/24 10:18 on entire body Influenza Virus Vaccines AdvReac Unknown Verified 12/06/24 10:18 pneumococcal vaccine AdvReac Unknown Verified 12/06/24 10:18 Physical Exam Vitals: Vital Signs Temp Pulse Pulse Resp BP Pulse Ox 12/07/24 12:27 84 12/07/24 12:16 80 12/07/24 08:54 80 12/07/24 08:43 80 12/07/24 07:00 98.9 F 99 16 120/66 97 12/07/24 01:48 97.7 F 85 16 109/66 100 12/06/24 20:00 91 17 12/06/24 19:50 84 12/06/24 19:39 86 12/06/24 19:38 97.9 F 91 17 111/75 99 12/06/24 16:54 92 29 H 111/63 99 12/06/24 15:20 83 12/06/24 15:11 86 12/06/24 14:25 97.5 F L 79 32 H 108/68 100 12/06/24 14:10 97.6 F 93 18 105/70 100 Intake and Output 12/06/24 12/07/24 12/07/24 22:59 06:59 14:59 Intake Total 221 Output Total 400 1725 Balance -179 -1725 Intake: Oral 221 Output: Urine 400 1725 Other: Voiding Method Toilet Toilet # Voids 3 Weight 65.5 kg 65.5 kg - Constitutional General appearance: average body habitus, cooperative, no acute distress - EENT Eyes: EOMI, PERRLA ENT: normal oropharynx Ears: bilateral: normal - Neck Neck: normal ROM Carotids: bilateral: upstroke normal Thyroid: bilateral: normal size - Respiratory Respiratory: bilateral: diminished, wheezing - Cardiovascular Rhythm: regular Heart sounds: normal: S1, S2 - Gastrointestinal General gastrointestinal: decreased bowel sounds, soft - Integumentary Integumentary: decreased turgor - Neurologic Neurologic: CNII-XII intact - Musculoskeletal Musculoskeletal: gait normal, generalized weakness, strength equal bilaterally - Psychiatric Psychiatric: A&O x's 3, appropriate affect, intact judgment & insight Results CBC & Chem 7: 12/06/24 01:53 12/07/24 04:41 Labs: Abnormal Lab Results - Last 24 Hours (Table) 12/06/24 12/06/24 12/07/24 Range/Units 17:52 17:52 04:41 D-Dimer 1.00 H (<0.60) mg/L FEU Anion Gap 15.00 H (4.00-12.00) mmol/L Est GFR (CKD-EPI) 49 L (>=60) Glucose 163 H (70-110) mg/dL Calcium 8.4 L (8.7-10.3) mg/dL NT-Pro-B Natriuret Pep 4080 H (0-125) pg/mL Assessment and Plan Assessment: Acute COPD exacerbation Acute on chronic hypoxic respiratory failure Tracheobronchitis Shortness of breath Acute on chronic heart failure with reduced EF Coronary artery disease with previous CABG and subsequent stenting Ischemic cardiomyopathy, 20 to 25% Paroxysmal atrial fibrillation/typical atrial flutter Mild pulmonary hypertension Moderate to severe mitral regurgitation Hypertension Hyperlipidemia History of AICD implantation History of AAA repair History of seizure disorder History of lightheadedness Nicotine dependence Plan: Continue supplemental oxygen titrate oxygen down as tolerated Continue broad spectrum antibiotic bronchodilators and steroid Optimize medical therapy with guideline diuretic therapy for heart failure Patient has been counseled educated about smoking cessation Continue anticoagulation with direct oral anticoagulant Elevated troponin cardiology on consult further recommendation pending plan of care as per clinical response the patient Time with Patient: Greater than 30
[2024-12-07] MEDS: HYDROcodone/APAP 5-325MG 1 EACH TAB PO PRN (16:37)
[2024-12-08 05:03] LABS: African American GFR (CKD) 57 (>60 ml/min/1.73 sqM); Anion Gap 15 mmol/L; Blood Urea Nitrogen 39 mg/dL (9-20); Calcium 9.2 mg/dL (8.4-10.2); Carbon Dioxide 26 mmol/L (22-30); Chloride 94 mmol/L (98-107); Glucose 135 mg/dL (74-99); Non-African American GFR(CKD) 50 (>60 ml/min/1.73 sqM); Potassium 4.1 mmol/L (3.5-5.1); Sodium 135 mmol/L (137-145)
--- NOTE | 2024-12-08 09:38 | P.PN ---
Subjective Progress Note Date: 12/08/24 Principal diagnosis: Acute COPD exacerbation Acute on chronic hypoxic respiratory failure Tracheobronchitis Shortness of breath Acute on chronic heart failure with reduced EF Coronary artery disease with previous CABG and subsequent stenting Ischemic cardiomyopathy, 20 to 25% Paroxysmal atrial fibrillation/typical atrial flutter Mild pulmonary hypertension Moderate to severe mitral regurgitation Hypertension Hyperlipidemia History of AICD implantation History of AAA repair History of seizure disorder History of lightheadedness Nicotine dependence December 08, 2024, patient seen eval examined during rounds labs reviewed medications reviewed, patient remains on 3 L nasal cannula ongoing cough congestion shortness of breath present with severity slightly better than before, patient was having generalized aches and pains yesterday [place] 5 seems to be helping. Patient remains on 3 L oxygen oxygen saturation is 98%, hemodynamic status marginal but stable blood pressure is 103/60 respiratory 18 pulse 91 temperature 97.2.Labs reviewed sodium is 135 potassium is 4.1 BUN/creatinine is 39/1.4, blood sugar is 135. Current medications include Rocephin along with continuation of home medicine also on IV steroids 60 mg Q8 74-year-old male came into the hospital with progressive increasing shortness of breath some chest discomfort as well denies any chest pains however denies any cough fever chills patient is still actively smoking of note that slight improvement in the breathing difficulty was noted with using MDI. On suppressive questioning denies any cough fever chills, denies any lightheadedness or dizziness, denies any swelling nausea vomiting diarrhea abdominal pain fever chills. His significant labs include white cell count 4800, hemoglobin hematocrit is 11.9/37, platelet count of 145, coags okay, sodium 130 depression 3.9 BUN/creatinine is 24 1.38 troponin 0.039-second sac remains the same. BNP is 3860, influenza AMB RSV and COVID testing has been negative chest x-ray unremarkable stable AICD His prior medical history significant for vitamin B12 deficiency, dyslipidemia, hypothyroidism, COPD, chronic hypoxic respiratory failure, A-fib, coronary artery disease, heart failure, CABG history of cardiac cath angiogram, hypertension hypertensive cardiovascular seizure disorder. Objective - Vital Signs Vital signs: Vital Signs Temp 97.2 F L 12/08/24 07:00 Pulse 91 12/08/24 07:00 Resp 18 12/08/24 07:00 BP 103/60 12/08/24 07:00 Pulse Ox 98 12/08/24 07:00 FiO2 Intake & Output 12/07/24 12/08/24 12/08/24 18:59 06:59 18:59 Intake Total 980 Balance 980 Weight 65.5 kg Intake: Oral 980 Other: Voiding Method Toilet # Voids 3 - Exam - Constitutional General appearance: average body habitus, cooperative, no acute distress - EENT Eyes: EOMI, PERRLA ENT: normal oropharynx Ears: bilateral: normal - Neck Neck: normal ROM Carotids: bilateral: upstroke normal Thyroid: bilateral: normal size - Respiratory Respiratory: bilateral: diminished, wheezing - Cardiovascular Rhythm: regular Heart sounds: normal: S1, S2 - Gastrointestinal General gastrointestinal: decreased bowel sounds, soft - Integumentary Integumentary: decreased turgor - Neurologic Neurologic: CNII-XII intact - Musculoskeletal Musculoskeletal: gait normal, generalized weakness, strength equal bilaterally - Psychiatric Psychiatric: A&O x's 3, appropriate affect, intact judgment & insight - Labs CBC & Chem 7: 12/06/24 01:53 12/08/24 04:05 Labs: Abnormal Lab Results - Last 24 Hours (Table) 12/08/24 Range/Units 04:05 Sodium 135 L (137-145) mmol/L Chloride 94 L (98-107) mmol/L BUN 39 H (9-20) mg/dL Creatinine 1.40 H (0.66-1.25) mg/dL Glucose 135 H (74-99) mg/dL Assessment and Plan Assessment: Acute on chronic kidney disease with rising BUN/creatinine Acute COPD exacerbation Acute on chronic hypoxic respiratory failure Tracheobronchitis Shortness of breath Acute on chronic heart failure with reduced EF Coronary artery disease with previous CABG and subsequent stenting Ischemic cardiomyopathy, 20 to 25% Paroxysmal atrial fibrillation/typical atrial flutter Mild pulmonary hypertension Moderate to severe mitral regurgitation Hypertension Hyperlipidemia History of AICD implantation History of AAA repair History of seizure disorder History of lightheadedness Nicotine dependence Plan: Will lowered down the diuresis, if okay with cardiovascular services monitor renal functions closely Continue supplemental oxygen titrate oxygen down as tolerated Continue broad spectrum antibiotic bronchodilators and steroid Optimize medical therapy with guideline diuretic therapy for heart failure Patient has been counseled educated about smoking cessation Continue anticoagulation with direct oral anticoagulant Elevated troponin cardiology on consult further recommendation pending plan of care as per clinical response the patient Time with Patient: Greater than 30
--- NOTE | 2024-12-08 11:05 | P.PN ---
Subjective Progress Note Date: 12/08/24 HISTORY OF PRESENT ILLNESS: This is a 74-year-old male with a past medical history significant for coronary artery disease with previous CABG in 1995 in [place], congestive heart failure, dementia, hyperlipidemia, hypertension, seizure disorder, thyroid disorder, AICD implantation 10 years ago in [place], AAA repair by Dr. Cook, ischemic cardiomyopathy, nicotine dependence, COPD, and paroxysmal atrial fibrillation/flutter. Patient follows in the office with Dr. Smith. We have been asked to see the patient in consultation for congestive heart failure. Patient examined at the bedside. Patient presented to the hospital with a chief complaint of shortness of breath. Patient states he has been feeling short of breath for the past few days. It is noted that the patient was recently hosp italized for acute kidney injury. He was discharged home back on his diuretics. Patient states he has been compliant with his medications. He is a current cigarette smoker and smokes 1/4 pack/day DIAGNOSTICS: - EKG reveals atrial fibrillation/flutter with controlled ventricular rate. - Chest xray negative for acute findings. - Laboratory data: WBC 4.85. Hemoglobin 11.9. Platelet count 145. Sodium 136. Potassium 3.9. BUN 24. Creatinine 1.38. Troponin 0.039. 0.039. proBNP 3860. - Current home cardiac medications have not been verified at the time of this dictation. - Most recent echocardiogram obtained in October 2024 revealed ejection fraction 2024%, severe hypokinesis more noted in inferior apical wall, mild pulmonary hypertension, moderate to severe MR, mild to moderate tricuspid regurgitation - Cardiac catheterization history: 09/20/2023 revealing [place] CAD including 100% proximal LAD stenosis, 75% proximal circumflex stenosis, 100% RCA stenosis. Occluded SVG to PDA, patent FIORE to LAD, SVG to diagonal with 95% stenosis. No other remaining grafts noted by aortogram. Status post PCI SVG to diagonal approximately and drug-eluting stent at distal SVG into diagonal Progress note 12/08/2024 Labs shows BUN 39, creatinine 1.4 yesterday creatinine was 1.5, sodium 135, NT-p roBNP was 4000 BP 103 over 60 mmHg, previously 99/61, heart rate 84 bpm Telemetry shows atrial fibrillation with intermittent PVCs PHYSICAL EXAM: VITAL SIGNS: Reviewed. GENERAL: Well-developed in no acute distress. HEENT: Head is normocephalic. Pupils are equal, round. Sclerae anicteric. Mucous membranes of the mouth are moist. Neck supple. No JVD or thyromegaly LUNGS: Respirations even and unlabored. Lungs with mild crackles at the bases. HEART: Irregular rate and rhythm. S1 and S2 heard. Systolic murmur noted. ABDOMEN: Soft. Nondistended. Nontender. EXTREMITIES: Normal range of motion. No clubbing or cyanosis. Peripheral pulses intact. No lower extremity edema NEUROLOGIC: Awake and alert. Oriented x 3. ASSESSMENT: Shortness of breath Acute on chronic heart failure with reduced EF Coronary artery disease with previous CABG and subsequent stenting Ischemic cardiomyopathy, 20 to 25% Paroxysmal atrial fibrillation/typical atrial flutter Mild pulmonary hypertension Moderate to severe mitral regurgitation Hypertension Hyperlipidemia History of AICD implantation History of AAA repair History of seizure disorder History of lightheadedness Nicotine dependence PLAN: No need to repeat echocardiogram as this was performed in October 2024 Resume home cardiac medications Stop IV Lasix, start from tomorrow transition to Bumex 1 mg p.o. daily to go home with. Add lisinopril 2.5 mg daily Orthostatic vital signs tomorrow a.m. Daily weights, accurate intake and output, monitoring of kidney function Smoking cessation recommended. Patient to be referred to [place] quit line upon discharge. Patient is awaiting placement Objective - Vital Signs Vital signs: Vital Signs Temp 97.2 F L 12/08/24 07:00 Pulse 91 12/08/24 07:00 Resp 18 12/08/24 07:00 BP 103/60 12/08/24 07:00 Pulse Ox 98 12/08/24 07:00 FiO2 Intake & Output 12/07/24 12/08/24 12/08/24 18:59 06:59 18:59 Intake Total 980 240 Output Total 300 Balance 980 -60 Weight 65.5 kg Intake: Oral 980 240 Output: Urine 300 Other: Voiding Method Toilet Urinal # Voids 3 - Labs CBC & Chem 7: 12/06/24 01:53 12/08/24 04:05 Labs: Abnormal Lab Results - Last 24 Hours (Table) 12/08/24 Range/Units 04:05 Sodium 135 L (137-145) mmol/L Chloride 94 L (98-107) mmol/L BUN 39 H (9-20) mg/dL Creatinine 1.40 H (0.66-1.25) mg/dL Glucose 135 H (74-99) mg/dL
[2024-12-09] MEDS: BUMETANIDE 1 MG TAB PO SCH (08:18)
[2024-12-09 08:34] LABS: ALT 22 U/L (4-49); AST 29 U/L (17-59); African American GFR (CKD) 75 (>60 ml/min/1.73 sqM); Albumin 3.9 g/dL (3.5-5.0); Albumin/Globulin Ratio 1.5; Alkaline Phosphatase 48 U/L (38-126); Anion Gap 11 mmol/L; Blood Urea Nitrogen 39 mg/dL (9-20); Calcium 9.5 mg/dL (8.4-10.2); Carbon Dioxide 26 mmol/L (22-30); Chloride 97 mmol/L (98-107); Globulin 2.6 g/dL; Glucose 148 mg/dL (74-99); Non-African American GFR(CKD) 65 (>60 ml/min/1.73 sqM); Potassium 4.5 mmol/L (3.5-5.1); Sodium 134 mmol/L (137-145); Total Bilirubin 0.7 mg/dL (0.2-1.3); Total Protein 6.5 g/dL (6.3-8.2)
--- NOTE | 2024-12-09 09:08 | P.PN ---
Subjective Progress Note Date: 12/09/24 Principal diagnosis: Acute COPD exacerbation Acute on chronic hypoxic respiratory failure Tracheobronchitis Shortness of breath Acute on chronic heart failure with reduced EF Coronary artery disease with previous CABG and subsequent stenting Ischemic cardiomyopathy, 20 to 25% Paroxysmal atrial fibrillation/typical atrial flutter Mild pulmonary hypertension Moderate to severe mitral regurgitation Hypertension Hyperlipidemia History of AICD implantation History of AAA repair History of seizure disorder History of lightheadedness Nicotine dependence December 09, 2024, patient seen eval examined during rounds labs reviewed medications and care plan discussed, patient remains on supplemental oxygen 3 L nasal cannula oxygen saturation is 98% blood pressure is within normal range, heart rate is 90-92 respiratory rate is 16-18, labs from today reviewed CBC not done, sodium was 134 potassium 4.5 BUN/creatinine stable 39/1.2 glucose is 148 LFTs within normal limit. Currently on pain control with [place] along with DuoNeb direct acting oral anticoagulants with Eliquis, patient is being continued on Lipitor has been on Bumex tolerating well dose have been decreased to once daily, remains on broad-spectrum antibiotics IV steroids which can be tapered Lasix has been discontinued due to rising BUN/creatinine December 08, 2024, patient seen eval examined during rounds labs reviewed medications reviewed, patient remains on 3 L nasal cannula ongoing cough congestion shortness of breath present with severity slightly better than before, patient was having generalized aches and pains yesterday [place] 5 seems to be helping. Patient remains on 3 L oxygen oxygen saturation is 98%, hemodynamic status marginal but stable blood pressure is 103/60 respiratory 18 pulse 91 temperature 97.2.Labs reviewed sodium is 135 potassium is 4.1 BUN/creatinine is 39/1.4, blood sugar is 135. Current medications include Rocephin along with continuation of home medicine also on IV steroids 60 mg Q8 74-year-old male came into the hospital with progressive increasing shortness of breath some chest discomfort as well denies any chest pains however denies any cough fever chills patient is still actively smoking of note that slight improvement in the breathing difficulty was noted with using MDI. On suppressive questioning denies any cough fever chills, denies any lightheadedness or dizziness, denies any swelling nausea vomiting diarrhea abdominal pain fever chills. His significant labs include white cell count 4800, hemoglobin hematocrit is 11.9/37, platelet count of 145, coags okay, sodium 130 depression 3.9 BUN/creatinine is 24 1.38 troponin 0.039-second sac remains the same. BNP is 3860, influenza AMB RSV and COVID testing has been negative chest x-ray unremarkable stable AICD His prior medical history significant for vitamin B12 deficiency, dyslipidemia, hypothyroidism, COPD, chronic hypoxic respiratory failure, A-fib, coronary bri ry disease, heart failure, CABG history of cardiac cath angiogram, hypertension hypertensive cardiovascular seizure disorder. Objective - Vital Signs Vital signs: Vital Signs Temp 97.7 F 12/09/24 07:00 Pulse 84 12/09/24 08:36 Resp 17 12/09/24 07:00 BP 106/58 12/09/24 07:00 Pulse Ox 98 12/09/24 08:22 FiO2 Intake & Output 12/08/24 12/09/24 12/09/24 18:59 06:59 18:59 Intake Total 240 Output Total 600 275 Balance -360 -275 Weight 65.2 kg Intake: Oral 240 Output: Urine 600 275 Other: Voiding Method Urinal - Exam - Constitutional General appearance: average body habitus, cooperative, no acute distress - EENT Eyes: EOMI, PERRLA ENT: normal oropharynx Ears: bilateral: normal - Neck Neck: normal ROM Carotids: bilateral: upstroke normal Thyroid: bilateral: normal size - Respiratory Respiratory: bilateral: diminished, wheezing - Cardiovascular Rhythm: regular Heart sounds: normal: S1, S2 - Gastrointestinal General gastrointestinal: decreased bowel sounds, soft - Integumentary Integumentary: decreased turgor - Neurologic Neurologic: CNII-XII intact - Musculoskeletal Musculoskeletal: gait normal, generalized weakness, strength equal bilaterally - Psychiatric Psychiatric: A&O x's 3, appropriate affect, intact judgment & insight - Labs CBC & Chem 7: 12/06/24 01:53 12/09/24 07:18 Labs: Abnormal Lab Results - Last 24 Hours (Table) 12/09/24 Range/Units 07:18 Sodium 134 L (137-145) mmol/L Chloride 97 L (98-107) mmol/L BUN 39 H (9-20) mg/dL Glucose 148 H (74-99) mg/dL Assessment and Plan Assessment: Acute on chronic kidney disease with rising BUN/creatinine, labs reviewed today slightly stabilized now Acute COPD exacerbation Acute on chronic hypoxic respiratory failure Tracheobronchitis Shortness of breath Acute on chronic heart failure with reduced EF Coronary artery disease with previous CABG and subsequent stenting Ischemic cardiomyopathy, 20 to 25% Paroxysmal atrial fibrillation/typical atrial flutter Mild pulmonary hypertension Moderate to severe mitral regurgitation Hypertension Hyperlipidemia History of AICD implantation History of AAA repair History of seizure disorder History of lightheadedness Nicotine dependence Plan: Monitor and observe off of Lasix monitor renal functions closely Continue supplemental oxygen titrate oxygen down as tolerated Continue broad spectrum antibiotic bronchodilators and steroid Optimize medical therapy with guideline diuretic therapy for heart failure Patient has been counseled educated about smoking cessation Continue anticoagulation with direct oral anticoagulant Elevated troponin cardiology on consult further recommendation pending plan of care as per clinical response the patient Taper down the steroids Time with Patient: Greater than 30
[2024-12-09] MEDS: methylPREDNISolone SOD SUCCI 40 MG/ML 1 ML VIAL IV SCH (20:21)
--- NOTE | 2024-12-10 05:25 | PN ---
PROGRESS NOTE SUBJECTIVE: This is a 74-year-old male who initially presented to the hospital with chief complaint of shortness of breath. The patient was found to be in acute CHF exacerbation and was started on IV Lasix. The patient was examined this morning at the bedside. He reports improvement in his shortness of breath. He denies any chest pain or pressure. Vital signs have been stable. PHYSICAL EXAMINATION: VITAL SIGNS: Reviewed. GENERAL: Well-developed, in no acute distress. LUNGS: Clear, but diminished at the bases. HEART: S1, S2 noted. Regular rhythm. ABDOMEN: Soft, nontender, nondistended. EXTREMITIES: No clubbing or cyanosis. Peripheral pulses are intact. Bilateral trace lower extremity edema. NEUROLOGIC: Awake and alert, oriented x3. ASSESSMENT: 1. Shortness of breath. 2. Acute on chronic heart failure with reduced ejection fraction of 20% to 25%. 3. Chronic kidney disease. 4. Hypertension. 5. Hyperlipidemia. PLAN: No need to repeat echocardiogram as this was performed in October 2024 revealing an ejection fraction of 20% to 25%. The patient was found to have elevated D-dimer of 1.0. His primary care physician ordered CT angio. However, due to the patient's renal failure, we will discontinue CTA at this time as the patient's symptoms appear to be more related to CHF exacerbation rather than possibility of pulmonary embolism. Continue IV Lasix. Daily weights, accurate intake and output and monitoring of kidney function. Further recommendations pending the patient's course. SUPPLY CONTROLLER STATEMENT: Nurse practitioner note has been reviewed by physician, signing provider agrees with the above documentation, which has been documented by SUPPLY CONTROLLER, acting as a scribe. MMODL / IJN: [id number] /
[2024-12-10 08:40] LABS: ALT 20 U/L (10-49); AST 21 U/L (14-35); Albumin 3.8 g/dL (3.8-4.9); Albumin/Globulin Ratio 1.73 Ratio (1.60-3.17); Alkaline Phosphatase 47 U/L (41-126); BUN/Creat Ratio 29.67 Ratio (12.00-20.00); Blood Urea Nitrogen 35.6 mg/dL (9.0-27.0); Calcium 8.9 mg/dL (8.7-10.3); Carbon Dioxide 27.4 mmol/L (21.6-31.8); Chloride 94 mmol/L (96-109); Globulin 2.2 g/dL (1.6-3.3); Glucose 149 mg/dL (70-110); Potassium 4.6 mmol/L (3.5-5.5); Sodium 134 mmol/L (135-145); Total Bilirubin 0.4 mg/dL (0.3-1.2)
--- NOTE | 2024-12-10 10:00 | P.PN ---
Subjective Progress Note Date: 12/10/24 Principal diagnosis: Acute COPD exacerbation Acute on chronic hypoxic respiratory failure Tracheobronchitis Shortness of breath Acute on chronic heart failure with reduced EF Coronary artery disease with previous CABG and subsequent stenting Ischemic cardiomyopathy, 20 to 25% Paroxysmal atrial fibrillation/typical atrial flutter Mild pulmonary hypertension Moderate to severe mitral regurgitation Hypertension Hyperlipidemia History of AICD implantation History of AAA repair History of seizure disorder History of lightheadedness Nicotine dependence December 10, 2024, patient seen eval examined during rounds labs reviewed medication care plan discussed, patient remains on steroids bronchodilator, cough congestion shortness of breath slightly improved respiratory status slightly better than the time he came in but still wheezing. Chemistry reviewed sodium remains on the lower side 134 potassium 4.6 BUN/creatinine improved 35/1.2, GFR improved from 49-64 now, glucose is 149 rest of chemistry fairly within normal limit. Currently patient is on pain control bronchodilator direct acting oral anticoagulant along with aspirin high intensity statins patient on home Bumex however off of Lasix, remains on IV antibiotics and maximal guideline directed therapy for heart failure Solu-Medrol is 40 IV every 12 and maximum beta-blockade, patient is not ready yet at this point in time is still wheezing but hopefully next 24 to 48 hours should be ready. Patient has a legal guardian who is thinking about long-term placement awaiting transition social worker recommendation in regards to the December 09, 2024, patient seen eval examined during rounds labs reviewed medicati ons and care plan discussed, patient remains on supplemental oxygen 3 L nasal cannula oxygen saturation is 98% blood pressure is within normal range, heart rate is 90-92 respiratory rate is 16-18, labs from today reviewed CBC not done, sodium was 134 potassium 4.5 BUN/creatinine stable 39/1.2 glucose is 148 LFTs within normal limit. Currently on pain control with [place] along with DuoNeb direct acting oral anticoagulants with Eliquis, patient is being continued on Lipitor has been on Bumex tolerating well dose have been decreased to once daily, remains on broad-spectrum antibiotics IV steroids which can be tapered Lasix has been discontinued due to rising BUN/creatinine December 08, 2024, patient seen eval examined during rounds labs reviewed medications reviewed, patient remains on 3 L nasal cannula ongoing cough congestion shortness of breath present with severity slightly better than be fore, patient was having generalized aches and pains yesterday [place] 5 seems to be helping. Patient remains on 3 L oxygen oxygen saturation is 98%, hemodynamic status marginal but stable blood pressure is 103/60 respiratory 18 pulse 91 temperature 97.2.Labs reviewed sodium is 135 potassium is 4.1 BUN/creatinine is 39/1.4, blood sugar is 135. Current medications include Rocephin along with continuation of home medicine also on IV steroids 60 mg Q8 74-year-old male came into the hospital with progressive increasing shortness of breath some chest discomfort as well denies any chest pains however denies any cough fever chills patient is still actively smoking of note that slight improvement in the breathing difficulty was noted with using MDI. On suppressive questioning denies any cough fever chills, denies any lightheadedness or dizziness, denies any swelling nausea vomiting diarrhea abdominal pain fever chills. His significant labs include white cell count 4800 , hemoglobin hematocrit is 11.9/37, platelet count of 145, coags okay, sodium 130 depression 3.9 BUN/creatinine is 24 1.38 troponin 0.039-second sac remains the same. BNP is 3860, influenza AMB RSV and COVID testing has been negative chest x-ray unremarkable stable AICD His prior medical history significant for vitamin B12 deficiency, dyslipidemia, hypothyroidism, COPD, chronic hypoxic respiratory failure, A-fib, coronary artery disease, heart failure, CABG history of cardiac cath angiogram, h ypertension hypertensive cardiovascular seizure disorder. Objective - Vital Signs Vital signs: Vital Signs Temp 98.7 F 12/10/24 07:00 Pulse 84 12/10/24 07:57 Resp 16 12/10/24 07:00 BP 113/75 12/10/24 07:00 Pulse Ox 99 12/10/24 07:46 FiO2 Intake & Output 12/09/24 12/10/24 12/10/24 18:59 06:59 18:59 Intake Total 358 Output Total 775 Balance -417 Weight 64.9 kg Intake: Oral 358 Output: Urine 775 Other: Voiding Method Urinal Urinal # Voids 1 # Bowel Movements 1 - Exam - Constitutional General appearance: average body habitus, cooperative, no acute distress - EENT Eyes: EOMI, PERRLA ENT: normal oropharynx Ears: bilateral: normal - Neck Neck: normal ROM Carotids: bilateral: upstroke normal Thyroid: bilateral: normal size - Respiratory Respiratory: bilateral: diminished, wheezing - Cardiovascular Rhythm: regular Heart sounds: normal: S1, S2 - Gastrointestinal General gastrointestinal: decreased bowel sounds, soft - Integumentary Integumentary: decreased turgor - Neurologic Neurologic: CNII-XII intact - Musculoskeletal Musculoskeletal: gait normal, generalized weakness, strength equal bilaterally - Psychiatric Psychiatric: A&O x's 3, appropriate affect, intact judgment & insight - Labs CBC & Chem 7: 12/06/24 01:53 12/10/24 04:16 Labs: Abnormal Lab Results - Last 24 Hours (Table) 12/10/24 Range/Units 04:16 Sodium 134 L (135-145) mmol/L Chloride 94 L (96-109) mmol/L Anion Gap 12.60 H (4.00-12.00) mmol/L BUN 35.6 H (9.0-27.0) mg/dL BUN/Creatinine Ratio 29.67 H (12.00-20.00) Ratio Glucose 149 H (70-110) mg/dL Total Protein 6.0 L (6.2-8.2) g/dL Assessment and Plan Assessment: Acute on chronic kidney disease with rising BUN/creatinine, labs reviewed today slightly stabilized now Acute COPD exacerbation Acute on chronic hypoxic respiratory failure Tracheobronchitis Shortness of breath Acute on chronic heart failure with reduced EF Coronary artery disease with previous CABG and subsequent stenting Ischemic cardiomyopathy, 20 to 25% Paroxysmal atrial fibrillation/typical atrial flutter Mild pulmonary hypertension Moderate to severe mitral regurgitation Hypertension Hyperlipidemia History of AICD implantation History of AAA repair History of seizure disorder History of lightheadedness Nicotine dependence Plan: Monitor and observe off of Lasix monitor renal functions closely Continue supplemental oxygen titrate oxygen down as tolerated Continue broad spectrum antibiotic bronchodilators and steroid Optimize medical therapy with guideline directed therapy for heart failure Patient has been counseled educated about smoking cessation Continue anticoagulation with direct oral anticoagulant Elevated troponin cardiology on consult further recommendation pending plan of care as per clinical response the patient Taper down the steroids
[2024-12-10] MEDS: NICOTINE 21MG/24HR PATCH TRANSDERM SCH (11:58)
[2024-12-11 04:35] LABS: ALT 22 U/L (4-49); AST 22 U/L (17-59); African American GFR (CKD) 62 (>60 ml/min/1.73 sqM); Albumin 3.8 g/dL (3.5-5.0); Albumin/Globulin Ratio 1.5; Alkaline Phosphatase 48 U/L (38-126); Anion Gap 9 mmol/L; Blood Urea Nitrogen 41 mg/dL (9-20); Calcium 9.8 mg/dL (8.4-10.2); Carbon Dioxide 31 mmol/L (22-30); Chloride 92 mmol/L (98-107); Globulin 2.5 g/dL; Glucose 94 mg/dL (74-99); Non-African American GFR(CKD) 53 (>60 ml/min/1.73 sqM); Potassium 4.5 mmol/L (3.5-5.1); Sodium 132 mmol/L (137-145); Total Bilirubin 0.5 mg/dL (0.2-1.3); Total Protein 6.3 g/dL (6.3-8.2)
[2024-12-11 07:24] VITALS: RESP 16; TEMP 98.1
--- NOTE | 2024-12-11 10:36 | P.DS ---
Providers Date of admission: 12/06/24 04:04 Expected date of discharge: 12/11/24 Attending physician: Raffaele Verdin Consults: 12/06/24 04:03 Consult Physician Routine Consulting Provider: [facility] Consult Reason/Comments: CHF Do you want consulting provider notified?: Yes, Notify in am 12/06/24 17:35 Consult Physician Routine Consulting Provider: Steve Bonner Consult Reason/Comments: COPD Do you want consulting provider notified?: Yes Primary care physician: [facility] Course: Patient is awake and alert, denies any cough or sputum production remains on oxygen patient has oxygen and nebulizer machine at home wishes to go home patient has received antibiotics and steroids no need for any more antibiotics history now cardiovascular services I have added Bumex 1 mg daily as well as low-dose lisinopril 2.5 mg daily prescription has been provided December 10, 2024, patient seen eval examined during rounds labs reviewed medication care plan discussed, patient remains on steroids bronchodilator, cough congestion shortness of breath slightly improved respiratory status slightly better than the time he came in but still wheezing. Chemistry reviewed sodium remains on the lower side 134 potassium 4.6 BUN/creatinine improved 35/1.2, GFR improved from 49-64 now, glucose is 149 rest of chemistry fairly within normal limit. Currently patient is on pain control bronchodilator direct acting oral anticoagulant along with aspirin high intensity statins patient on home Bumex however off of Lasix, remains on IV antibiotics and maximal guideline directed therapy for heart failure Solu-Medrol is 40 IV every 12 and maximum beta-blockade, patient is not ready yet at this point in time is still wheezing but hopefully next 24 to 48 hours should be ready. Patient has a legal guardian who is thinking about long-term placement awaiting social science teacher recommendation in regards to the December 09, 2024, patient seen eval examined during rounds labs reviewed medications and care plan discussed, patient remains on supplemental oxygen 3 L nasal cannula oxygen saturation is 98% blood pressure is within normal range, heart rate is 90-92 respiratory rate is 16-18, labs from today reviewed CBC not done, sodium was 134 potassium 4.5 BUN/creatinine stable 39/1.2 glucose is 148 LFTs within normal limit. Currently on pain control with Bethelridge along with Du oNeb direct acting oral anticoagulants with Eliquis, patient is being continued on Lipitor has been on Bumex tolerating well dose have been decreased to once daily, remains on broad-spectrum antibiotics IV steroids which can be tapered Lasix has been discontinued due to rising BUN/creatinine December 08, 2024, patient seen eval examined during rounds labs reviewed medications reviewed, patient remains on 3 L nasal cannula ongoing cough congestion shortness of breath present with severity slightly better than before, patient was having generalized aches and pains yesterday Bethelridge 5 seems to be helping. Patient remains on 3 L oxygen oxygen saturation is 98%, hemodynamic status marginal but stable blood pressure is 103/60 respiratory 18 pulse 91 temperature 97.2.Labs reviewed sodium is 135 potassium is 4.1 BUN/creatinine is 39/1.4, blood sugar is 135. Current medications include Rocephin along with continuation of home medicine also on IV steroids 60 mg Q8 74-year-old male came into the hospital with progressive increasing shortness of breath some chest discomfort as well denies any chest pains however denies any cough fever chills patient is still actively smoking of note that slight improvement in the breathing difficulty was noted with using MDI. On suppressive questioning denies any cough fever chills, denies any lightheadedness or dizziness, denies any swelling nausea vomiting diarrhea abdominal pain fever chills. His significant labs include white cell count 4800, hemoglobin hematocrit is 11.9/37, platelet count of 145, coags okay, sodium 130 depression 3.9 BUN/creatinine is 24 1.38 troponin 0.039-second sac remains the same. BNP is 3860, influenza AMB RSV and COVID testing has been negative chest x-ray unremarkable stable AICD His prior medical history significant for vitamin B12 deficiency, dyslipidemia, hypothyroidism, COPD, chronic hypoxic respiratory failure, A-fib, coronary artery disease, heart failure, CABG history of cardiac cath angiogram, hypertension hypertensive cardiovascular seizure disorder. Assessment: Acute on chronic hypoxic respiratory failure Tracheobronchitis Shortness of breath Acute on chronic heart failure with reduced EF Coronary artery disease with previous CABG and subsequent stenting Ischemic cardiomyopathy, 20 to 25% Paroxysmal atrial fibrillation/typical atrial flutter Mild pulmonary hypertension Moderate to severe mitral regurgitation Hypertension Hyperlipidemia History of AICD implantation History of AAA repair History of seizure disorder History of lightheadedness Nicotine dependence Patient Condition at Discharge: Good Plan - Discharge Summary Discharge Rx Participant: No New Discharge Prescriptions: No Action Cyanocobalamin (Vitamin B-12) [Vitamin B-12] 1,000 mcg PO DAILY@0800 Acetaminophen [Tylenol 8 Hour] 650 mg PO TID@0800,1399,1999 Atorvastatin Calcium [Lipitor] 40 mg PO HS@1999 Budesonide-Formot 160-4.5 Mcg [Symbicort 160-4.5 Mcg Inhaler] 2 puff INHALATION RT-BID@08,1999 Budesonide 0.5 mg INHALATION RT-BID@0900,1800 Ipratropium-Albuterol Nebulize [Duoneb 0.5 mg-3 mg/3 ml Soln] 3 ml INHALATION RT-QID Sennosides/Docusate Sodium [Senna Plus 8.6-50 mg Tablet] 2 tab PO HS@1999 Folic Acid 0.4 mg PO DAILY@0800 Levothyroxine Sodium [Synthroid] 100 mcg PO DAILY@0700 Mirtazapine 30 mg PO HS@1999 Nitroglycerin Sl Tabs [Nitrostat] 0.4 mg SUBLINGUAL Q5M PRN 90 Days #100 tab PRN Reason: Chest Pain Dapagliflozin Propanediol [Farxiga] 10 mg PO DAILY@0800 Apixaban [Eliquis] 5 mg PO BID@0800,1999 busPIRone HCl [Buspar] 10 mg PO BID@0800,1999 Tiotropium 2.5 Mcg/Puff [Spiriva Respimat 2.5 Mcg] 2 puff INHALATION RT- DAILY@0800 Pantoprazole Sodium [Protonix] 20 mg PO AC-BID@08,1999 Diclofenac Sodium Gel [Voltaren 1% Gel] 4 gm TOPICAL QID@08,12,16,20 Aspirin 81 mg PO DAILY@0800 Metoprolol Tartrate [Lopressor] 25 mg PO BID@08,1999 #0 Torsemide [Demadex] 10 mg PO DAILY@0800 Spironolactone [Aldactone] 12.5 mg PO DAILY@0800 Pentoxifylline [TRENtal] 400 mg PO BID-W/MEALS Discharge Medication List Cyanocobalamin (Vitamin B-12) [Vitamin B-12] 1,000 mcg PO DAILY@0800 08/23/22 [History] Acetaminophen [Tylenol 8 Hour] 650 mg PO TID@0800,1400,199909/17/23 [History] Atorvastatin Calcium [Lipitor] 40 mg PO HS@199909/17/23 [History] Folic Acid 0.4 mg PO DAILY@79909/17/23 [History] Levothyroxine Sodium [Synthroid] 100 mcg PO DAILY@69909/17/23 [History] Mirtazapine 30 mg PO HS@199909/17/23 [History] Nitroglycerin Sl Tabs [Nitrostat] 0.4 mg SUBLINGUAL Q5M PRN 90 Days #100 tab 09/21/23 [Rx] Budesonide-Formot 160-4.5 Mcg [Symbicort 160-4.5 Mcg Inhaler] 2 puff INHALATION RT-BID@799,199910/16/23 [History] Dapagliflozin Propanediol [Farxiga] 10 mg PO DAILY@79910/16/23 [History] Budesonide 0.5 mg INHALATION RT-BID@0900,1800 03/03/24 [History] Ipratropium-Albuterol Nebulize [Duoneb 0.5 mg-3 mg/3 ml Soln] 3 ml INHALATION RT-QID 04/13/24 [History] Apixaban [Eliquis] 5 mg PO BID@799,199910/24/24 [History] busPIRone HCl [Buspar] 10 mg PO BID@799,199910/24/24 [History] Diclofenac Sodium Gel [Voltaren 1% Gel] 4 gm TOPICAL QID@08,12,16,20 11/08/24 [History] Pantoprazole Sodium [Protonix] 20 mg PO AC-BID@799,199911/08/24 [History] Tiotropium 2.5 Mcg/Puff [Spiriva Respimat 2.5 Mcg] 2 puff INHALATION RT- DAILY@79911/08/24 [History] Aspirin 81 mg PO DAILY@79911/12/24 [History] Metoprolol Tartrate [Lopressor] 25 mg PO BID@799,1999 #0 11/14/24 [Rx] Pentoxifylline [TRENtal] 400 mg PO BID-W/MEALS 11/27/24 [History] Sennosides/Docusate Sodium [Senna Plus 8.6-50 mg Tablet] 2 tab PO HS@199911/27/24 [History] Spironolactone [Aldactone] 12.5 mg PO DAILY@79911/27/24 [History] Torsemide [Demadex] 10 mg PO DAILY@79911/27/24 [History] Follow up Appointment(s)/Referral(s): None,Stated [REFERRING] - 1-2 days Raffaele Verdin MD [Primary Care Provider] - 1 Week Discharge Disposition: TRANSFER TO SNF/ECF
[2024-12-11 13:20] VITALS: BP 110/68; PULSE 84
== END 2024-12-11 15:37 | disposition home or self-care (01) | DRG 291 ==
LOC: EC 01:33 → 6NMEDSUR 04:03 → OBSVTOIN 04:04 → 6NMEDSUR 06:03
PROVIDERS: ADMIT Family Medicine; ATTEND Family Medicine
DX: I13.0 Hypertensive heart and chronic kidney disease with heart failure and stage 1 through stage 4 chronic kidney disease, or unspecified chronic kidney disease (principal); I50.23 Acute on chronic systolic (congestive) heart failure; J96.21 Acute and chronic respiratory failure with hypoxia; J44.1 Chronic obstructive pulmonary disease with (acute) exacerbation; I27.20 Pulmonary hypertension, unspecified; E03.9 Hypothyroidism, unspecified; I48.0 Paroxysmal atrial fibrillation; G40.909 Epilepsy, unspecified, not intractable, without status epilepticus; F25.9 Schizoaffective disorder, unspecified; F03.94 Unspecified dementia, unspecified severity, with anxiety; I34.0 Nonrheumatic mitral (valve) insufficiency; N18.9 Chronic kidney disease, unspecified; E78.5 Hyperlipidemia, unspecified; I25.10 Atherosclerotic heart disease of native coronary artery without angina pectoris; I25.5 Ischemic cardiomyopathy; F17.210 Nicotine dependence, cigarettes, uncomplicated; Z79.890 Hormone replacement therapy; Z95.810 Presence of automatic (implantable) cardiac defibrillator; Z95.1 Presence of aortocoronary bypass graft; Z79.899 Other long term (current) drug therapy; Z79.82 Long term (current) use of aspirin; Z88.0 Allergy status to penicillin; Z88.5 Allergy status to narcotic agent; Z88.7 Allergy status to serum and vaccine; I25.2 Old myocardial infarction; Z79.01 Long term (current) use of anticoagulants; Z79.51 Long term (current) use of inhaled steroids
CPT/HCPCS: 36415; 71046; 80048; 80053; 83880; 84484; 85025; 85379; 85610; 85730; 87636; 93005; 94640; 94760; 96374; 96375; 99291

== ENCOUNTER 2024-12-23 01:40 | Emergency (ER) | payer MEDICARE, OTHER ==
--- NOTE | 2024-12-23 02:07 | ED ---
General Adult HPI - General Chief complaint: Chest Pain Stated complaint: Chest pain Time Seen by Provider: 12/23/24 01:44 Source: EMS Mode of arrival: EMS - History of Present Illness Initial comments: This patient is a 74-year-old man with history of cardiomyopathy who presents with complaint of pain at the upper chest, shortness of breath that he awoke with 1 to 2 hours ago. Onset/Timin -: hour(s) Location: chest Radiation: non-radiation Quality: dull Consistency: constant Improves with: none Worsens with: none Associated Symptoms: headaches, shortness of breath Treatments Prior to Arrival: none - Related Data Previous Rx's Medication Instructions Recorded Acetaminophen [Tylenol 8 Hour] 650 mg PO TID@0800,1399,1999 30 12/11/24 Days tab Apixaban [Eliquis] 5 mg PO BID@799,1999 #60 tab 12/11/24 Aspirin 81 mg PO DAILY@0800 30 Days tab 12/11/24 Atorvastatin Calcium [Lipitor] 40 mg PO HS@1999 30 Days tab 12/11/24 Budesonide-Formot 160-4.5 Mcg 2 puff INHALATION RT-BID@799,199912/11/24 [Symbicort 160-4.5 Mcg Inhaler] 30 Days each Bumetanide [BUMEX] 1 mg PO DAILY 30 Days tab 12/11/24 Cyanocobalamin (Vitamin B-12) 1,000 mcg PO DAILY@0800 30 Days 12/11/24 [Vitamin B-12] tab Dapagliflozin Propanediol [Farxiga] 10 mg PO DAILY@0800 30 Days tab 12/11/24 Diclofenac Sodium Gel [Voltaren 1% 4 gm TOPICAL QID@08,12,16,20 30 12/11/24 Gel] Days gm Folic Acid 0.4 mg PO DAILY@0800 30 Days tab 12/11/24 Ipratropium-Albuterol Nebulize 3 ml INHALATION RT-QID 30 Days 12/11/24 [Duoneb 0.5 mg-3 mg/3 ml Soln] each Levothyroxine Sodium [Synthroid] 100 mcg PO DAILY@0700 30 Days tab 12/11/24 Metoprolol Tartrate [Lopressor] 25 mg PO BID@ 30 Days tab 12/11/24 Mirtazapine [Remeron] 30 mg PO HS@1999 #30 tab 12/11/24 Nicotine 21Mg/24Hr Patch [Habitrol] 1 patch TRANSDERM DAILY #21 patch 12/11/24 Nitroglycerin Sl Tabs [Nitrostat] 0.4 mg SUBLINGUAL Q5M PRN 90 Days 12/11/24 #100 tab Pantoprazole Sodium [Protonix] 20 mg PO AC-BID@799,1999 30 Days 12/11/24 tab Pentoxifylline [TRENtal] 400 mg PO BID-W/MEALS 30 Days tab 12/11/24 Sennosides/Docusate Sodium [Senna 2 tab PO HS@1999 30 Days tab 12/11/24 Plus 8.6-50 mg Tablet] Spironolactone [Aldactone] 12.5 mg PO DAILY@0800 30 Days tab 12/11/24 Torsemide [Demadex] 10 mg PO DAILY@00 30 Days tab 12/11/24 busPIRone HCl [Buspar] 10 mg PO BID@799,1999 30 Days tab 12/11/24 lisinopriL [Zestril] 2.5 mg PO DAILY 30 Days tab 12/11/24 Ketorolac [Toradol] 10 mg PO Q6HR 7 Days #28 tab 12/27/24 Allergies Allergy/AdvReac Type Severity Reaction Status Date / Time morphine Allergy Anaphylaxis Verified 12/27/24 10:39 Penicillins Allergy Swelling Verified 12/27/24 10:39 on entire body Influenza Virus Vaccines AdvReac Unknown Verified 12/27/24 10:39 pneumococcal vaccine AdvReac Unknown Verified 12/27/24 10:39 Review of Systems ROS Statement: Those systems with pertinent positive or pertinent negative responses have been documented in the HPI. ROS Other: All systems not noted in ROS Statement are negative. Constitutional: Denies: fever, chills Respiratory: Reports: dyspnea. Denies: cough, wheezes, hemoptysis Cardiovascular: Reports: chest pain. Denies: palpitations, orthopnea, edema, syncope Gastrointestinal: Denies: abdominal pain, nausea, vomiting, diarrhea Genitourinary: Denies: dysuria, hematuria Musculoskeletal: Denies: back pain Skin: Denies: rash Neurological: Reports: headache. Denies: weakness, numbness, paresthesias Past Medical History Past Medical History: Coronary Artery Disease (CAD), Heart Failure, COPD, Dementia, Hyperlipidemia, Hypertension, Myocardial Infarction (OR), Seizure Disorder, Syncope, Thyroid Disorder Additional Past Medical History / Comment(s): Ischemic cardiomyopathy, EF 20- 25%, last seizure about 2 yrs ago, hypothyroid.neuropathy "WHEN HE WORKED HE HAD A CRUSHING INJURY -COLLAPSED LUNGS C/T AND HAS CHRONIC BACK PAIN"" pt states he is schizophrenic/bipolar. TRIPLE A REPAIR AUG 2022 Last Myocardial Infarction Date:: unk History of Any Multi-Drug Resistant Organisms: None Reported Past Surgical History: AICD, Back Surgery, Coronary Bypass/CABG, Heart Catheterization, Heart Catheterization With Stent Additional Past Surgical History / Comment(s): 1995 CABG 4 vessel in [place], has had 2"HEART CATHS/had 2 STENTS after cabg sx.pt stated they were done in [facility]. "sx on tailbone, cortisone injections, devin inguinal hernia repair Past Anesthesia/Blood Transfusion Reactions: No Reported Reaction Date of Last Stent Placement:: 1995 Type of Cardiac Device: AICD Device Placement Date:: 1995 in [facility] Past Psychological History: Anxiety, Depression, Schizoaffective Disorder, Schizophrenia Smoking Status: Current every day smoker Past Alcohol Use History: None Reported Past Drug Use History: None Reported - Past Family History Mother Family Medical History: Respiratory Disorder Additional Family Medical History / Comment(s): Mother had TB Father Additional Family Medical History / Comment(s): Father was an alcoholic, was killed in a motor vehicle accident General Exam General appearance: alert, in no apparent distress Head exam: Present: atraumatic, normocephalic Eye exam: Present: normal appearance. Absent: scleral icterus, conjunctival injection ENT exam: Present: mucous membranes dry Neck exam: Present: normal inspection Respiratory exam: Present: wheezes. Absent: respiratory distress, rales, rhonchi, stridor, accessory muscle use Cardiovascular Exam: Present: regular rate, normal rhythm, normal heart sounds. Absent: systolic murmur, diastolic murmur, rubs, gallop GI/Abdominal exam: Present: soft. Absent: distended, tenderness, guarding, rebound, rigid, mass Extremities exam: Present: normal inspection, normal capillary refill. Absent: pedal edema, calf tenderness Back exam: Present: normal inspection. Absent: CVA tenderness (R), CVA tenderness (L) Neurological exam: Present: alert Skin exam: Present: warm, dry, intact, normal color. Absent: rash Course Vital Signs 12/23/24 12/23/24 12/23/24 01:44 02:55 06:24 Temperature 97.3 F L Pulse Rate 103 H 77 73 Respiratory 18 16 16 Rate Blood Pressure 106/77 93/51 80/51 O2 Sat by Pulse 98 100 99 Oximetry 12/23/24 12/23/24 06:30 07:39 Temperature 97.8 F Pulse Rate 86 91 Respiratory 24 18 Rate Blood Pressure 92/74 145/76 O2 Sat by Pulse 100 98 Oximetry Medical Decision Making - Medical Decision Making The patient had chest x-ray that I interpreted as negative for acute infiltrate, pneumothorax, bony injury Was pt. sent in by a medical professional or institution (PILO Cruz, MICROCHIP SPECIALIST, urgent care, hospital, or long term...) When possible be specific @ -[No] Did you speak to anyone other than the patient for history (EMS, parent, family, police, friend...)? What history was obtained from this source @ -[No] Did you review nursing and triage notes (agree or disagree)? Why? @ -[I reviewed and agree with nursing and triage notes] Were old charts reviewed (outside hosp., previous admission, EMS record, old EKG, old radiological studies, urgent care reports/EKG's, long term records)? Report findings @ -[No old charts were reviewed] Differential Diagnosis (chest pain, altered mental status, abdominal pain women, abdominal pain men, vaginal bleeding, weakness, fever, dyspnea, syncope, headache, dizziness, GI bleed, back pain, seizure, CVA, palpatations, mental health, musculoskeletal)? @ -[Differential Chest Pain: Stable Angina, Unstable Angina, STEMI, NSTEMI Aortic Dissection, Pneumothorax, M usculoskeletal, Esophageal Spasm GERD, Cholecystitis, Pancreatitis, Zoster, this is not meant to be an all-inclusive list. EKG interpreted by me (3pts min.). @ -[I interpreted as above] X-rays interpreted by me (1pt min.). @ -[I interpreted as above CT interpreted by me (1pt min.). @ -[None done] U/S interpreted by me (1pt. min.). @ -[None done] What testing was considered but not performed or refused? (CT, X-rays, U/S, labs)? Why? @ -[None] What meds were considered but not given or refused? Why? @ -[None] Did you discuss the management of the patient with other professionals (jojo caicedo i.eLoretta Cruz, PA, MICROCHIP SPECIALIST, lab, RT, psych nurse, delinquency prevention social worker, middle school band teacher, teacher, technology officer, case management rn)? Give summary @ -[No] Was smoking cessation discussed for >3mins.? @ -[No] Was critical care preformed (if so, how long)? @ -[No] Were there social determinants of health that impacted care today? How? (Homelessness, low income, unemployed, alcoholism, drug addiction, transportation, low edu. Level, literacy, decrease access to med. care, halfway, rehab)? @ -[No] Was there de-escalation of care discussed even if they declined (Discuss DNR or withdrawal of care, Hospice)? DNR status @ -[No] What co-morbidities impacted this encounter? (DM, HTN, Smoking, COPD, CAD, Cancer, CVA, ARF, Chemo, Hep., AIDS, mental health diagnosis, sleep apnea, morbid obesity)? @ -[None] Was patient admitted / discharged? Hospital course, mention meds given and route, prescriptions, significant lab abnormalities, going to OR and other pertinent info. @ -[Patient is a 74-year-old man here to have evaluation for earlier complaint of chest pain. The patient's exam is unremarkable. The patient's workup also unremarkable other than D-dimer which is mildly elevated however review of the records reveal that he always has elevated D-dimer and this is actually the lowest measurement. The patient did have 2 troponins, then feeling better and wanting to go home. The patient is offered admission but again would like to Undiagnosed new problem with uncertain prognosis? @ -[No] Drug Therapy requiring intensive monitoring for toxicity (Heparin, Nitro, Insulin, Cardizem)? @ -[No] Were any procedures done? @ -[No] Diagnosis/symptom? @ -[Acute chest pain Acute, or Chronic, or Acute on Chronic? @ -[Acute Uncomplicated (without systemic symptoms) or Complicated (systemic symptoms)? @ -[Uncomplicated Side effects of treatment? @ -[No] Exacerbation, Progression, or Severe Exacerbation? @ -[No] Poses a threat to life or bodily function? How? (Chest pain, USA, OR, pneumonia, PE, COPD, DKA, ARF, appy, cholecystitis, CVA, Diverticulitis, Homicidal, Suicidal, threat to staff... and all critical care pts) @ -[No] All treatments are based on ideal body weight as in ED triage - Lab Data Result diagrams: 12/23/24 02:09 12/23/24 02:09 Lab Results 12/23/24 12/23/24 12/23/24 Range/Units 02:09 02:09 02:09 WBC 7.41 (4.50-10.00) 10*3/uL RBC 4.47 (4.40-5.60) 10*6/uL Hgb 12.0 L (13.0-17.0) g/dL Hct 37.7 L (39.6-50.0) % MCV 84.3 (80.0-97.0) fL MCH 26.8 L (27.0-32.0) pg MCHC 31.8 L (32.0-37.0) g/dL Plt Count 129 L (140-440) 10*3/uL MPV 10.6 (9.5-12.2) fL Immature Gran % (Auto) 0.9 % Neutrophils % 53.0 % Lymphocytes % 36.2 % Monocytes % 8.5 % Eosinophils % 0.7 % Basophils % 0.7 % Immature Gran # 0.07 H (0.00-0.04) 10*3/uL Neutrophils # 3.93 (1.80-7.70) 10*3/uL Lymphocytes # 2.68 (0.90-5.00) 10*3/uL Monocytes # 0.63 (0.20-1.00) 10*3/uL Eosinophils # 0.05 (0.04-0.35) 10*3/uL Basophils # 0.05 (0.00-0.10) 10*3/uL Immature Plt Fraction 1.8 (1.1-6.1) % PT 11.4 (10.0-12.5) sec INR 1.0 (<1.2) APTT 25.0 (22.0-30.0) sec D-Dimer 1.00 H (<0.60) mg/L FEU Sodium 133 L (137-145) mmol/L Potassium 4.3 (3.5-5.1) mmol/L Chloride 97 L (98-107) mmol/L Carbon Dioxide 26 (22-30) mmol/L Anion Gap 10 mmol/L BUN 28 H (9-20) mg/dL Creatinine 1.31 H (0.66-1.25) mg/dL Est GFR (CKD-EPI)AfAm 62 (>60 ml/min/1.73 sqM) Est GFR (CKD-EPI)NonAf 54 (>60 ml/min/1.73 sqM) Glucose 94 (74-99) mg/dL Calcium 9.5 (8.4-10.2) mg/dL Magnesium 1.6 (1.6-2.3) mg/dL Total Bilirubin 0.4 (0.2-1.3) mg/dL AST 30 (17-59) U/L ALT 22 (4-49) U/L Alkaline Phosphatase 53 (38-126) U/L Troponin I (0.000-0.034) ng/mL Total Protein 6.5 (6.3-8.2) g/dL Albumin 3.9 (3.5-5.0) g/dL Influenza Type A (PCR) (Not Detectd) Influenza Type B (PCR) (Not Detectd) RSV (PCR) (Not Detectd) SARS-CoV-2 (PCR) (Not Detectd) 12/23/24 12/23/24 12/23/24 Range/Units 02:09 02:09 06:37 WBC (4.50-10.00) 10*3/uL RBC (4.40-5.60) 10*6/uL Hgb (13.0-17.0) g/dL Hct (39.6-50.0) % MCV (80.0-97.0) fL MCH (27.0-32.0) pg MCHC (32.0-37.0) g/dL Plt Count (140-440) 10*3/uL MPV (9.5-12.2) fL Immature Gran % (Auto) % Neutrophils % % Lymphocytes % % Monocytes % % Eosinophils % % Basophils % % Immature Gran # (0.00-0.04) 10*3/uL Neutrophils # (1.80-7.70) 10*3/uL Lymphocytes # (0.90-5.00) 10*3/uL Monocytes # (0.20-1.00) 10*3/uL Eosinophils # (0.04-0.35) 10*3/uL Basophils # (0.00-0.10) 10*3/uL Immature Plt Fraction (1.1-6.1) % PT (10.0-12.5) sec INR (<1.2) APTT (22.0-30.0) sec D-Dimer (<0.60) mg/L FEU Sodium (137-145) mmol/L Potassium (3.5-5.1) mmol/L Chloride (98-107) mmol/L Carbon Dioxide (22-30) mmol/L Anion Gap mmol/L BUN (9-20) mg/dL Creatinine (0.66-1.25) mg/dL Est GFR (CKD-EPI)AfAm (>60 ml/min/1.73 sqM) Est GFR (CKD-EPI)NonAf (>60 ml/min/1.73 sqM) Glucose (74-99) mg/dL Calcium (8.4-10.2) mg/dL Magnesium (1.6-2.3) mg/dL Total Bilirubin (0.2-1.3) mg/dL AST (17-59) U/L ALT (4-49) U/L Alkaline Phosphatase (38-126) U/L Troponin I 0.016 0.015 (0.000-0.034) ng/mL Total Protein (6.3-8.2) g/dL Albumin (3.5-5.0) g/dL Influenza Type A (PCR) Not Detected (Not Detectd) Influenza Type B (PCR) Not Detected (Not Detectd) RSV (PCR) Not Detected (Not Detectd) SARS-CoV-2 (PCR) Not Detected (Not Detectd) - EKG Data -: EKG Interpreted by De EKG shows normal: axis (Normal), QRS complexes (Old inferior infarct.), ST-T waves (Normal) Interpretation: other (Rhythm appears to be atrial flutter with approximately 4- 1 conduction. There are PVCs, the rate is 78 bpm.) Disposition Clinical Impression: Chest pain Disposition: HOME SELF-CARE Condition: Fair Instructions (If sedation given, give patient instructions): Chest Pain (ED) Is patient prescribed a controlled substance at d/c from ED?: No Referrals: Raffaele Verdin MD [Primary Care Provider] - 1-2 days
[2024-12-23 02:15] LABS: Basophils # (A) 0.05 10*3/uL (0.00-0.10); Basophils % (A) 0.7 %; Eosinophils # (A) 0.05 10*3/uL (0.04-0.35); Eosinophils % (A) 0.7 %; HCT 37.7 % (39.6-50.0); Immature Platelet Fraction 1.8 % (1.1-6.1); Lymphocytes # (A) 2.68 10*3/uL (0.90-5.00); Lymphocytes % (A) 36.2 %; MCH 26.8 pg (27.0-32.0); MCHC 31.8 g/dL (32.0-37.0); MCV 84.3 fL (80.0-97.0); Mean Platelet Volume 10.6 fL (9.5-12.2); Monocytes # (A) 0.63 10*3/uL (0.20-1.00); Monocytes % (A) 8.5 %; Neutrophils # (A) 3.93 10*3/uL (1.80-7.70); Platelet Count 129 10*3/uL (140-440); RBC 4.47 10*6/uL (4.40-5.60); RDW 18.3 % (11.5-14.5); WBC 7.41 10*3/uL (4.50-10.00)
[2024-12-23 02:26] LABS: ALT 22 U/L (4-49); AST 30 U/L (17-59); African American GFR (CKD) 62 (>60 ml/min/1.73 sqM); Albumin 3.9 g/dL (3.5-5.0); Alkaline Phosphatase 53 U/L (38-126); Anion Gap 10 mmol/L; Blood Urea Nitrogen 28 mg/dL (9-20); Calcium 9.5 mg/dL (8.4-10.2); Carbon Dioxide 26 mmol/L (22-30); Chloride 97 mmol/L (98-107); Glucose 94 mg/dL (74-99); Magnesium 1.6 mg/dL (1.6-2.3); Non-African American GFR(CKD) 54 (>60 ml/min/1.73 sqM); Potassium 4.3 mmol/L (3.5-5.1); Sodium 133 mmol/L (137-145); Total Bilirubin 0.4 mg/dL (0.2-1.3); Total Protein 6.5 g/dL (6.3-8.2)
[2024-12-23] MEDS: ASPIRIN 81 MG PO STA (02:27)
[2024-12-23] MEDS: fentaNYL (PF) 50 MCG/ML 2 ML AMP IVP STA (02:50)
[2024-12-23 02:51] LABS: Influenza A Not Detected (Not Detectd); Influenza B Not Detected (Not Detectd); RSV Not Detected (Not Detectd)
[2024-12-23 03:09] LABS: Prothrombin Time 11.4 sec (10.0-12.5)
--- NOTE | 2024-12-23 05:53 | XR ---
ADDENDUM - Added by Fabienne Cifuentes MD on 12/23/2024 5:52 AM (-04:00) EXAM: XR Chest, 2 Views CLINICAL HISTORY: ITS.REASON XR Reason: Chest Pain TECHNIQUE: Frontal and lateral views of the chest. COMPARISON: No relevant prior studies available. IMPRESSION: Cardiomegaly with mild vascular congestion EXAM: XR Chest, 2 Views CLINICAL HISTORY: ITS.REASON XR Reason: Chest Pain TECHNIQUE: Frontal and lateral views of the chest. COMPARISON: No relevant prior studies available. IMPRESSION: Cardiomegaly with mild vascular condition
[2024-12-23 07:41] VITALS: BP 145/76; PULSE 91; RESP 18; TEMP 97.8
== END 2024-12-23 07:42 | disposition home or self-care (01) ==
LOC: EC 01:40
DX: R07.9 Chest pain, unspecified (principal); F17.290 Nicotine dependence, other tobacco product, uncomplicated; Z88.5 Allergy status to narcotic agent; Z88.7 Allergy status to serum and vaccine; Z88.0 Allergy status to penicillin
CPT/HCPCS: 36415; 93005; 85379; 80053; 83735; 84484; 85025; 85610; 85730; 87636; 71046; 99285; 96374; J3010

== ENCOUNTER → 2024-12-27 | Outpatient (CLI) | payer MEDICARE, OTHER ==
[2024-12-27 10:53] VITALS: BP 116/71; PULSE 110; RESP 16; TEMP 97.1
--- NOTE | 2024-12-27 15:58 | P.PAINPG ---
Objective - Vital Signs Vital signs: Vital Signs Temp 97.1 F L 12/27/24 10:39 Pulse 110 H 12/27/24 10:39 Resp 16 12/27/24 10:39 BP 116/71 12/27/24 10:39 Pulse Ox 95 12/27/24 10:39 FiO2 Intake & Output 12/26/24 12/27/24 12/27/24 18:59 06:59 18:59 Weight 65.771 kg PQRS Measure Charge Sheet Mode of Arrival: Wheelchair Comment: HISTORY OF PRESENT ILLNESS: A 74 yr old male as a referral from Dr Quispe presents today w severe and chronic LBP > 1 yr secondary to L3-L5 radiculopathy, R Sacroiliitis for evaluation. Pt states pain level is provoked at 6 /10 in intensity, constant, localized in the lumbar spine, predominantly axial, achy in character w occasional shooting pain towards . Pain is provoked by lifting. Pain is alleviated by PT x 6 wks which ended in Oct 2024, physician guided home stretches daily since Oct 2024, medications, topical, manual massage, use of a wheelchair for ambulatory assistance, repositioning and rest . Oswestry axial pain score at 24. PMH: OA, CAD, CHF, COPD, Dementia, Hyperlipidemia, HTN, IA, Ischemic Cardiomyopathy, Seizure Disorder, Syncope, Hypothyroidism, MDD/ Anxiety/ Bipolar/ Schizophrenia PSH: AICD (1995), Back Surgery, Coronary Bypass/CABG (1995), Heart C atheterization (2022), Heart Catheterization With Stent, BL Inguinal Hernia Repair SH: Daily tobacco use, Occ ETOH use, Occ Cannabis use. Suicide attempt in 2019 FH: Mo- TB. Fa- ETOH abuse/ . All: See list Medications include Tyl, Lidoderm REVIEW OF ORGAN SYSTEMS: CONSTITUTIONAL: No fevers or chills. No recent weight loss. NEUROLOGICAL: + numbness and tingling along the distal extremities. No seizure disorders or headaches. MUSCULOSKELETAL: + pain PSYCHIATRIC: Denies current depression or suicidal thoughts. Physical Examinations : Constitutional : Cooperative , not in acute distress . Neurologic : Cranial nerve II to XII intact. No focal neurological deficits. Psychiatric : alert & oriented x 3. Matching mood & appropriate affect. Judgment & insight intact. Musculoskeletal : Cervical Spine Motor strength in the deltoid and biceps: Normal right side. Normal Left side Motor strength biceps and the wrist extensors: Normal right side . Normal left side Motor strength in the triceps muscle: Normal right side. Normal left side Deep tendon reflexes: Normal at the b iceps. Normal at Brachioradialis. Normal at triceps Vertebral body tenderness to deep palpation over Cervical facet loading test: positive bilaterally Spurling test: positive bilaterally Neck distraction test: positive bilaterally Pooja sign: positive bilaterally Lumbar spine Motor strength lower extremities ,thigh and legs 5/5 Right side , 5/5 Left side Deep tendon reflexes : Normal Knee Jerk. Normal Ankle Jerk Vertebral body tenderness over L5 Marie Test positive Lumbar facet Loading Test: positive Right / positive Left Range of motion of the lumbar spine Flexion 30 degrees, extension 10 degrees Straight Leg Raise test: Left/ Right positive at 30 degrees Guido test: positive right / positive left. Severe tenderness over the Sacroiliac joint on the Right / Left sides Gaenslen test: positive bilaterally Seated flexion test: positive bilaterally. Sacral spine : Severe tenderness over the Sacroiliac joint: right side / left side Range of motion: Flexion of the lumbar spine <60 degrees Range of motion: Extension of the lumbar spine <20 degrees Gaenslen's Test positive Guido test: positive right side / left side Thigh Thrust Test Sacral Thrust Test Imaging: CT non contrast lumbar spine from 11/28/24 reviewed Assessment/ Plan : L3-L5 radiculopathy, R Sacroiliitis Recommendation of LUIS L5-S1 and medication management of Toradol 10mg #30 NR. Use, side effects, adverse reactions, safe storage discussed. Risks, benefits of procedure discussed and patient verbalized understanding. Admits to anti- coagulant use or medical history of diabetes. Protocol for discontinuation/ continuation of medications antolin procedure discussed. Minimal anesthesia provided, if clinically indicated, consisting of Versed and Fentanyl. All questions answered. I have spent greater than 30 minutes on patient care today. Dr Cobb was available by phone for the evaluation of this patient. The time was used to review the medical records including relevant urine studies and Prescription history (MAPs), review of the available imaging, evaluation and examination of the patient, coordination of care with the medical staff and if applicable referring physicians, as well as creation of the medical record - Pain Location Bilateral Lower Back Non-Pharmacological Interventions: Home Exercise, Inactivity, Physical Therapy, Position/Reposition, Relaxation Technique, Stretching Pharmacological Interventions: PRN Medication PQRS Narrative: Smoking Status Current every day smoker Blood Pressure 116/71 Pain Intensity [Bilateral 10 Lower Back] Scale Used Numeric (1 - 10) Hx Alcohol Use (MH) No Home Medications: Ambulatory Orders Acetaminophen [Tylenol 8 Hour] 650 mg PO TID@0800,1399,1999 30 Days tab 11/14 05/09 Apixaban [Eliquis] 5 mg PO BID@799,1999 #60 tab 12/11/24 Aspirin 81 mg PO DAILY@0800 30 Days tab 12/11/24 Atorvastatin Calcium [Lipitor] 40 mg PO HS@1999 30 Days tab 12/11/24 Budesonide-Formot 160-4.5 Mcg [Symbicort 160-4.5 Mcg Inhaler] 2 puff INHALATION RT-BID@799,1999 30 Days each 12/11/24 Bumetanide [BUMEX] 1 mg PO DAILY 30 Days tab 12/11/24 Cyanocobalamin (Vitamin B-12) [Vitamin B-12] 1,000 mcg PO DAILY@0800 30 Days tab 12/11/24 Dapagliflozin Propanediol [Farxiga] 10 mg PO DAILY@0800 30 Days tab 12/11/24 Diclofenac Sodium Gel [Voltaren 1% Gel] 4 gm TOPICAL QID@08,12,16,20 30 Days gm 12/11/24 Folic Acid 0.4 mg PO DAILY@0800 30 Days tab 12/11/24 Ipratropium-Albuterol Nebulize [Duoneb 0.5 mg-3 mg/3 ml Soln] 3 ml INHALATION RT-QID 30 Days each 12/11/24 Levothyroxine Sodium [Synthroid] 100 mcg PO DAILY@0700 30 Days tab 12/11/24 Metoprolol Tartrate [Lopressor] 25 mg PO BID@799,1999 30 Days tab 12/11/24 Mirtazapine [Remeron] 30 mg PO HS@1999 #30 tab 12/11/24 Nicotine 21Mg/24Hr Patch [Habitrol] 1 patch TRANSDERM DAILY #21 patch 12/11/24 Nitroglycerin Sl Tabs [Nitrostat] 0.4 mg SUBLINGUAL Q5M PRN 90 Days #100 tab 12/11/24 Pantoprazole Sodium [Protonix] 20 mg PO AC-BID@799,1999 30 Days tab 12/11/24 Pentoxifylline [TRENtal] 400 mg PO BID-W/MEALS 30 Days tab 12/11/24 Sennosides/Docusate Sodium [Senna Plus 8.6-50 mg Tablet] 2 tab PO HS@1999 30 Day s tab 12/11/24 Spironolactone [Aldactone] 12.5 mg PO DAILY@0800 30 Days tab 12/11/24 Torsemide [Demadex] 10 mg PO DAILY@0800 30 Days tab 12/11/24 busPIRone HCl [Buspar] 10 mg PO BID@08,1999 30 Days tab 12/11/24 lisinopriL [Zestril] 2.5 mg PO DAILY 30 Days tab 12/11/24 Controlled Substance Measures - Controlled Substance Measures Is patient prescribed a controlled substance at discharge?: No
== END ==
LOC: PNWHC3 10:28
PROVIDERS: ATTEND Specialist
DX: M54.16 Radiculopathy, lumbar region (principal); M46.1 Sacroiliitis, not elsewhere classified; F12.90 Cannabis use, unspecified, uncomplicated; F17.200 Nicotine dependence, unspecified, uncomplicated; Z88.0 Allergy status to penicillin; Z88.5 Allergy status to narcotic agent; Z88.7 Allergy status to serum and vaccine
CPT/HCPCS: 99211

== ENCOUNTER → 2025-02-06 | Outpatient (CLI) | payer MEDICARE, OTHER ==
[2025-02-06 15:52] VITALS: BP 91/56; PULSE 103; RESP 20; TEMP 98.3
--- NOTE | 2025-02-06 18:03 | P.SLEEP ---
History of Present Illness DATE: 02/06/2025 CONSULTATION/NEW PATIENT EVALUATION HISTORY OF PRESENT ILLNESS/SLEEP-WAKE EVALUATION: 74-year-old gentleman had b een evaluated in the sleep center for possible obstructive sleep apnea hypopnea syndrome. SLEEP SCHEDULE: Usually sleep schedule from 9 PM to 5 AM. FALLING ASLEEP: Patient has difficulties to fall asleep, has TV set in bedroom. DURING SLEEP: Patient sleeps in different positions. He denied any snoring. Positive history of choking, gasping for air and awakenings from sleep about 5 times with nocturia, dry mouth, panic attacks, palpitation, heartburn.no history of hypnogogical hallucinations, sleep paralysis, or cataplexy. DURING THE DAY/WAKE STATE: In the morning patient wake up tired, has difficulties to pay attention, has problems with memory, concentration, irritability, depression, anxiety, claustrophobia [place] sleepiness scale is significantly increased to 16. Patient may take several naps during the day up to 4 times. PAST MEDICAL HISTORY: Asthma, COPD, coronary artery disease, hypertension, hyperlipidemia, hypothyroidism. PAST SURGICAL HISTORY: Stent insertions to coronary arteries. MEDICATIONS: Lisinopril 2.5 mg once a day, metoprolol 25 mg half tablet twice a day, mirtazapine 30 mg once a day, pantoprazole 20 mg once a day, spironolactone 25 mg half tablet in the morning aspirin 81 mg once a day, atorvastatin 40 mg once a day, Eliquis 5 mg once a day, fark CIGA 10 mg once a day, albuterol with ipratropium inhaler, levothyroxine 100 mcg once a day. SOCIAL HISTORY: Please see below. FAMILY HISTORY: Please see below. REVIEW OF SYSTEMS: Multiple awakenings from sleep, sleepiness during the day. No fevers. No double vision. No recent chest pain. No shortness of breath. No abdominal pain. No bleeding episodes. No blood in urine. No seizure episodes. PHYSICAL EXAMINATION: GENERAL: A pleasant patient without any distress. VITAL SIGNS: Please see below, weight 141 pounds, BMI 24.1. HEENT: PERRLA, EOMI. Evaluation of oropharynx showed tongue protrudes midline, low position of soft palate Mallampati 4. NECK: Supple. No JVD. Thyroid is not palpable. 17-2/3 inches in circumference. LUNGS: Clear to percussion and to auscultation. Good air exchange. No wheezing or rhonchi. HEART: S1, S2 regular. No murmurs, gallops or rubs. ABDOMEN: Soft and nontender. Bowel sounds are present. No organomegaly appreciated. EXTREMITIES: No clubbing or cyanosis. BEHAVIORAL HEALTH TECHNICIAN: Awake, alert, and oriented x3. Cranial nerves 2 to 7 intact. There is no fasciculation or atrophy noted. No focal deficits observed. ASSESSMENT: 1. Multiple awakenings from sleep up to 5 times, extremely low position of soft palate Mallampati 4, excessive daytime sleepiness with [place] Sleepiness Scale 16. Obstructive sleep apnea hypopnea syndrome. 2. COPD. 3. Asthma. 4. Some recent changes of voice. 5 coronary disease, status post stent insertion. 6 . Hypertension. 7. Hypothyroidism. 8. Hyperlipidemia. PLAN: 1. Polysomnography for evaluation of patient's breathing during sleep. 2. Following plan after reading sleep study. 3. Preferable position during sleep on the side. 4. No driving if patient feels any sleepiness. Patient is aware of civil and criminal liability for unsafe driving. 5. Sleep hygiene with regular sleep time for at least 7.5-8 hours. 6. Watching weight. 7. If sleep study will be negative we will consider multiple sleep latency test. 8. Consider evaluation by ear nose and throat physician for voice changes. Thank you very much for referring this patient for consultation. Sincerely, Darron Velasquez MD, PhD, FAASM. Diplomat of [place] [employer], Sleep Medicine Board by [place] [employer] [place] [employer] [facility] [place] cc: Denys Connell MD Past Medical History Past Medical History: Coronary Artery Disease (CAD), Heart Failure, COPD, Dementia, Hyperlipidemia, Hypertension, Myocardial Infarction (SC), Seizure Disorder, Syncope, Thyroid Disorder Additional Past Medical History / Comment(s): Ischemic cardiomyopathy, EF 20- 25%, last seizure about 2 yrs ago, hypothyroid.neuropathy "WHEN HE WORKED HE HAD A CRUSHING INJURY -COLLAPSED LUNGS C/T AND HAS CHRONIC BACK PAIN"" pt states he is schizophrenic/bipolar. TRIPLE A REPAIR AUG 2022 Last Myocardial Infarction Date:: unk History of Any Multi-Drug Resistant Organisms: None Reported Past Surgical History: AICD, Back Surgery, Coronary Bypass/CABG, Heart Catheterization, Heart Catheterization With Stent Additional Past Surgical History / Comment(s): 1995 CABG 4 vessel in [place], has had 2"HEART CATHS/had 2 STENTS after cabg sx.pt stated they were done in [facility]. "sx on tailbone, cortisone injections, devin inguinal hernia repair Past Anesthesia/Blood Transfusion Reactions: No Reported Reaction Date of Last Stent Placement:: 1995 Type of Cardiac Device: AICD Device Placement Date:: 1995 in [facility] Past Psychological History: Anxiety, Depression, Schizoaffective Disorder, Schizophrenia Additional Psychological History / Comment(s): . Smoking Status: Current every day smoker Past Alcohol Use History: None Reported Additional Past Alcohol Use History / Comment(s): . Past Drug Use History: Marijuana Additional Drug Use History / Comment(s): Pt states he smokes marijuana on occasion. - Past Family History Mother Family Medical History: Respiratory Disorder Additional Family Medical History / Comment(s): Mother had TB Father Additional Family Medical History / Comment(s): Father was an alcoholic, was killed in a motor vehicle accident Medications and Allergies Home Medications Medication Instructions Recorded Confirmed Type Acetaminophen [Tylenol 8 Hour] 650 mg PO TID@0800,1400,1999 30 12/11/24 01/23/25 Rx Days tab Apixaban [Eliquis] 5 mg PO BID@799,1999 #60 tab 12/11/24 01/23/25 Rx Atorvastatin Calcium [Lipitor] 40 mg PO HS@1999 30 Days tab 12/11/24 01/23/25 Rx Dapagliflozin Propanediol [Farxiga] 10 mg PO DAILY@0800 30 Days tab 12/11/24 01/23/25 Rx Diclofenac Sodium Gel [Voltaren 1% 4 gm TOPICAL QID@08,12,16,20 30 12/11/24 01/23/25 Rx Gel] Days gm Folic Acid 0.4 mg PO DAILY@0800 30 Days tab 12/11/24 01/23/25 Rx Ipratropium-Albuterol Nebulize 3 ml INHALATION RT-QID 30 Days 12/11/24 01/23/25 Rx [Duoneb 0.5 mg-3 mg/3 ml Soln] each Levothyroxine Sodium [Synthroid] 100 mcg PO DAILY@0700 30 Days tab 12/11/24 01/23/25 Rx Pantoprazole Sodium [Protonix] 20 mg PO AC-BID@ 30 Days 12/11/24 01/23/25 Rx tab Pentoxifylline [TRENtal] 400 mg PO BID-W/MEALS 30 Days tab 12/11/24 01/23/25 Rx Spironolactone [Aldactone] 12.5 mg PO DAILY@0800 30 Days tab 12/11/24 01/23/25 Rx Mirtazapine [Remeron] 30 mg PO HS@199901/10/25 01/23/25 History lisinopriL [Zestril] 2.5 mg PO DAILY@79901/10/25 01/23/25 History Aspirin 81 mg PO DAILY tab 01/12/25 01/23/25 Rx Metoprolol Tartrate [Lopressor] 25 mg PO BID@799,1999 #0 01/12/25 01/23/25 Rx Budesonide/Formoterol Fumarate 2 inh INHALATION BID 01/23/25 01/23/25 History [Symbicort 160-4.5 Mcg Inhaler] Gabapentin 300 mg PO DAILY PRN 01/23/25 01/23/25 History Nitroglycerin Sl Tabs [Nitrostat] 0.4 mg SUBLINGUAL Q5M PRN 01/23/25 01/23/25 History Spironolactone 25 mg PO DAILY 01/23/25 01/23/25 History Stimulant 8.6-50mg (Unk) 1 tab PO DAILY PRN 01/23/25 01/23/25 History Torsemide [Demadex] 10 mg PO DAILY 01/23/25 01/23/25 History Vit B12 500 mg PO DAILY 01/23/25 01/23/25 History predniSONE 5 mg PO DAILY 01/23/25 01/23/25 History Allergies Allergy/AdvReac Type Severity Reaction Status Date / Time morphine Allergy Anaphylaxis Verified 01/23/25 13:32 Penicillins Allergy Swelling Verified 01/23/25 13:32 on entire body Influenza Virus Vaccines AdvReac Unknown Verified 01/23/25 13:32 pneumococcal vaccine AdvReac Unknown Verified 01/23/25 13:32 Physical Exam Vitals: Vital Signs Temp Pulse Resp BP Pulse Ox 02/06/25 15:51 98.3 F 103 H 20 91/56 97 Intake and Output 02/06/25 02/06/25 02/06/25 06:59 14:59 22:59 Other: Weight 66.224 kg Sleep Note - Sleep Data ESS Total: 16 - Sleep Note Sleep Note: Temperature: 98.3 F Pulse Rate: 103 Respiratory Rate: 20 Blood Pressure: 91/56 SpO2: 97 Height: 5 ft 5.2 in Weight: 66.224 kg BMI: Neck Circumference: 17.6
== END ==
LOC: 3 N SLEEP 14:57
PROVIDERS: ATTEND Internal Medicine
DX: G47.33 Obstructive sleep apnea (adult) (pediatric) (principal); J44.89 Other specified chronic obstructive pulmonary disease; I25.10 Atherosclerotic heart disease of native coronary artery without angina pectoris; I10 Essential (primary) hypertension; E03.9 Hypothyroidism, unspecified; E78.5 Hyperlipidemia, unspecified; F12.90 Cannabis use, unspecified, uncomplicated; F17.200 Nicotine dependence, unspecified, uncomplicated; Z95.5 Presence of coronary angioplasty implant and graft; Z88.0 Allergy status to penicillin; Z88.5 Allergy status to narcotic agent; Z88.7 Allergy status to serum and vaccine
CPT/HCPCS: 99211

== ENCOUNTER 2025-02-12 16:37 | Emergency (ER) | payer MEDICARE, OTHER ==
[2025-02-12] MEDS: SODIUM CHLORIDE 0.9% 500 ML 500 ML IV ONE ×2 (17:16→19:43)
--- NOTE | 2025-02-12 17:27 | CT ---
EXAMINATION TYPE: CT brain amol wo con DATE OF EXAM: 02/12/2025 COMPARISON: None CLINICAL INDICATION: Male, 74 years old with history of fall. code coag; PHH, Code Coag, fall on thin ners. TECHNIQUE: CT scan of the head and cervical spine are performed without contrast. CT DLP: 1353.[address] CTDI: mGy Automated exposure control for dose reduction was used. FINDINGS: There is no acute intracranial hemorrhage, mass effect, or midline shift identified. The ventricles and sulci are within normal limits in size. The globes are intact and the visualized sinuses are isaias ar. Cervical spine is visualized in its entirety from C1 through upper thoracic levels and demonstrates s atisfactory alignment without evidence of acute fracture or dislocation. Prevertebral soft tissue ap pears within normal limits. The C1-C2 articulation is unremarkable. IMPRESSION: 1. There is no acute fracture or dislocation evident in the cervical spine. 2. No acute intracranial hemorrhage, mass effect, or midline shift is seen. [facility], , 02/12/2025 5:25 PM
[2025-02-12] MEDS: SODIUM CHLORIDE 0.9% 1,000 ML IV ONE (17:40)
--- NOTE | 2025-02-12 17:47 | CT ---
EXAMINATION TYPE: CT thor lumbar spine wo con DATE OF EXAM: 02/12/2025 COMPARISON: CLINICAL INDICATION: Male, 74 years old with history of spine pain; PHH, Chronic back pain. CT DLP: 1370 mGycm Automated exposure control for dose reduction was used. Unenhanced CT of the thoracolumbar spine was performed in the axial sagittal and coronal planes with bone and soft tissue window settings submitte d. FINDINGS: There is mild superior endplate compression fracture involving the L1 vertebral body. Loss of height is estimated at 15-20%. There appears to be minimal retropulsion of 2 mm without evidence for cord co ntact or central stenosis. Mild flattening of the ventral thecal sac. No evidence for involvement of the middle or posterior column. No additional fractures are seen. Mild scattered degenerative disc sp carina narrowing. No paraspinal mass is present. IMPRESSION: FRACTURE OF INDETERMINATE AGE OR ETIOLOGY INVOLVING THE SUPERIOR ENDPLATE OF L1 DISCUSSED ABOVE AL THOUGH LIKELY RELATIVELY RECENT. CORRELATE CLINICALLY. [facility], , 02/12/2025 5:45 PM
[2025-02-12 17:55] LABS: Basophils # (A) 0.02 10*3/uL (0.00-0.10); Basophils % (A) 0.2 %; Eosinophils # (A) 0.06 10*3/uL (0.04-0.35); Eosinophils % (A) 0.7 %; HCT 39.3 % (39.6-50.0); HGB 12.5 g/dL (13.0-17.0); Lymphocytes # (A) 1.66 10*3/uL (0.90-5.00); Lymphocytes % (A) 19.0 %; MCH 26.7 pg (27.0-32.0); MCHC 31.8 g/dL (32.0-37.0); MCV 84.0 fL (80.0-97.0); Monocytes # (A) 0.77 10*3/uL (0.20-1.00); Monocytes % (A) 8.8 %; Neutrophils # (A) 6.14 10*3/uL (1.80-7.70); Neutrophils % (A) 70.2 %; Platelet Count 187 10*3/uL (140-440); RBC 4.68 10*6/uL (4.40-5.60); RDW 18.3 % (11.5-14.5); WBC 8.75 10*3/uL (4.50-10.00)
[2025-02-12] MEDS: LIDOCAINE 4% PATCH TOPICAL STA (17:57)
[2025-02-12] MEDS: HYDROmorphone 0.5 MG/0.5 ML SYRINGE IVP STA ×2 (18:00→20:53)
[2025-02-12] MEDS: methylPREDNISolone SOD SUCCI 125 MG/2 ML VIAL IV STA (18:00)
[2025-02-12 18:18] LABS: ALT 21 U/L (4-49); AST 28 U/L (17-59); African American GFR (CKD) 46 (>60 ml/min/1.73 sqM); Albumin 4.2 g/dL (3.5-5.0); Alkaline Phosphatase 56 U/L (38-126); Anion Gap 10 mmol/L; Blood Urea Nitrogen 35 mg/dL (9-20); Calcium 9.0 mg/dL (8.4-10.2); Carbon Dioxide 24 mmol/L (22-30); Chloride 101 mmol/L (98-107); Glucose 118 mg/dL (74-99); Non-African American GFR(CKD) 39 (>60 ml/min/1.73 sqM); Potassium 5.0 mmol/L (3.5-5.1); Sodium 135 mmol/L (137-145); Total Protein 6.7 g/dL (6.3-8.2)
[2025-02-12] MEDS: IPRATROPIUM-ALBUTEROL 3 ML NEB INHALATION STA (18:33)
[2025-02-12 18:46] LABS: Bilirubin,Urine Negative (Negative); Blood,Urine Negative (Negative); Color,Urine Colorless; Glucose,Urine (UA) 3+ (Negative); Ketones,Urine Negative (Negative); Leukocyte Esterase,Urine Negative (Negative); Nitrite,Urine Negative (Negative); PH, Urine 5.5 (5.0-8.0); Protein,Urine Negative (Negative); Specific Gravity,Urine 1.013 (1.001-1.035); Urobilinogen,Urine <2.0 mg/dL (<2.0)
--- NOTE | 2025-02-12 19:29 | ED ---
General Adult HPI - General Chief complaint: Fall Stated complaint: Fall Time Seen by Provider: 02/12/25 16:40 Source: patient, RN notes reviewed, old records reviewed Mode of arrival: ambulatory Limitations: no limitations - History of Present Illness Initial comments: 74-year-old male presents emergency department for fall. Patient is a fall on blood thinners. Has a history of chronic debility. Presents from his living facility. States that his legs gave out on him which is chronic due to chronic back pain. Denies any new lower extremity paralysis, saddle paresthesias, urinary or bowel incontinence or retention. Patient has a history of CAD, heart failure, COPD, dementia, hypertension. He denies any chest pain or shortness of breath. States he does not think he lost consciousness. States he did strike the right side of his head. Is ANO x 4 current need at his baseline mental status. Is asking for some pain medications for his chronic back pain. Has no other acute complaints at this time. Presents as a code coag. - Related Data Home Medications Medication Instructions Recorded Confirmed Mirtazapine [Remeron] 30 mg PO HS@199901/10/25 01/23/25 lisinopriL [Zestril] 2.5 mg PO DAILY@79901/10/25 01/23/25 Budesonide/Formoterol Fumarate 2 inh INHALATION BID 01/23/25 01/23/25 [Symbicort 160-4.5 Mcg Inhaler] Gabapentin 300 mg PO DAILY PRN 01/23/25 01/23/25 Nitroglycerin Sl Tabs [Nitrostat] 0.4 mg SUBLINGUAL Q5M PRN 01/23/25 01/23/25 Spironolactone 25 mg PO DAILY 01/23/25 01/23/25 Stimulant 8.6-50mg (Unk) 1 tab PO DAILY PRN 01/23/25 01/23/25 Torsemide [Demadex] 10 mg PO DAILY 01/23/25 01/23/25 Vit B12 500 mg PO DAILY 01/23/25 01/23/25 predniSONE 5 mg PO DAILY 01/23/25 01/23/25 Previous Rx's Medication Instructions Recorded Acetaminophen [Tylenol 8 Hour] 650 mg PO TID@0800,1400,199912/11/24 Days tab Apixaban [Eliquis] 5 mg PO BID@0800,1999 #60 tab 12/11/24 Atorvastatin Calcium [Lipitor] 40 mg PO HS@1999 30 Days tab 12/11/24 Dapagliflozin Propanediol [Farxiga] 10 mg PO DAILY@08 30 Days tab 12/11/24 Diclofenac Sodium Gel [Voltaren 1% 4 gm TOPICAL QID@08,12,16,20 30 12/11/24 Gel] Days gm Folic Acid 0.4 mg PO DAILY@0800 30 Days tab 12/11/24 Ipratropium-Albuterol Nebulize 3 ml INHALATION RT-QID 30 Days 12/11/24 [Duoneb 0.5 mg-3 mg/3 ml Soln] each Levothyroxine Sodium [Synthroid] 100 mcg PO DAILY@699 30 Days tab 12/11/24 Pantoprazole Sodium [Protonix] 20 mg PO AC-BID@799,1999 30 Days 12/11/24 tab Pentoxifylline [TRENtal] 400 mg PO BID-W/MEALS 30 Days tab 12/11/24 Spironolactone [Aldactone] 12.5 mg PO DAILY@799 30 Days tab 12/11/24 Aspirin 81 mg PO DAILY tab 01/12/25 Metoprolol Tartrate [Lopressor] 25 mg PO BID@799,1999 #0 01/12/25 Allergies Allergy/AdvReac Type Severity Reaction Status Date / Time morphine Allergy Anaphylaxis Verified 02/12/25 16:43 Penicillins Allergy Swelling Verified 02/12/25 16:43 on entire body Influenza Virus Vaccines AdvReac Unknown Verified 02/12/25 16:43 pneumococcal vaccine AdvReac Unknown Verified 02/12/25 16:43 Review of Systems ROS Statement: Those systems with pertinent positive or pertinent negative responses have been documented in the HPI. Review of Systems: CONST: Denies fever EYES: Denies blurry vision ENT: Denies nasal congestion C/V: Denies Chest pain RESP: Denies shortness of breath GI: Denies abdominal pain : Denies dysuria SKIN: Denies rash. MSK: Endorses chronic back pain NEURO: Denies headache ROS Other: All systems not noted in ROS Statement are negative. Past Medical History Past Medical History: Coronary Artery Disease (CAD), Heart Failure, COPD, Dementia, Hyperlipidemia, Hypertension, Myocardial Infarction (AK), Seizure Disorder, Syncope, Thyroid Disorder Additional Past Medical History / Comment(s): Ischemic cardiomyopathy, EF 20- 25%, last seizure about 2 yrs ago, hypothyroid.neuropathy "WHEN HE WORKED HE HAD A CRUSHING INJURY -COLLAPSED LUNGS C/T AND HAS CHRONIC BACK PAIN"" pt states he is schizophrenic/bipolar. TRIPLE A REPAIR AUG 2022 Last Myocardial Infarction Date:: unk History of Any Multi-Drug Resistant Organisms: None Reported Past Surgical History: AICD, Back Surgery, Coronary Bypass/CABG, Heart Catheterization, Heart Catheterization With Stent Additional Past Surgical History / Comment(s): 1995 CABG 4 vessel in [place], has had 2"HEART CATHS/had 2 STENTS after cabg sx.pt stated they were done in [facility]. "sx on tailbone, cortisone injections, devin inguinal hernia repair Past Anesthesia/Blood Transfusion Reactions: No Reported Reaction Date of Last Stent Placement:: 1995 Type of Cardiac Device: AICD Device Placement Date:: [address] in [facility] Past Psychological History: Anxiety, Depression, Schizoaffective Disorder, Schizophrenia Smoking Status: Current every day smoker Past Alcohol Use History: None Reported Past Drug Use History: Marijuana - Past Family History Mother Family Medical History: Respiratory Disorder Additional Family Medical History / Comment(s): Mother had TB Father Additional Family Medical History / Comment(s): Father was an alcoholic, was killed in a motor vehicle accident General Exam - General Exam Comments Initial Comments: General: Appears in no acute distress. HEAD: Normal with no signs of head trauma. Negative Blue sign. Negative raccoon eyes. EYES: PERRLA, EOMI, conjunctiva normal, no discharge. Pupils are 3 mm and equal bilaterally. ENT: Hearing grossly intact, normal oropharynx. RESPIRATORY: Clear breath sounds bilaterally. No wheezes, rales, or rhonchi. C/V: Regular rate and rhythm. S1 and S2 auscultated, no edema, peripheral pulses 2+ and intact throughout ABD: Abd is soft, nontender, nondistended EXT: Normal range of motion, no obvious deformity. Diffuse nonfocal back pain which patient states is chronic. No obvious step-offs or deformity of the spine present. SKIN: No rashes or lesions observed on exposed skin. NEURO: Alert and oriented x 4. Cranial nerves II-XII intact. No focal sensory or strength deficits. GCS 15. Limitations: no limitations Course Vital Signs 02/12/25 02/12/25 02/12/25 16:38 17:55 18:34 Temperature 97 F L 97.4 F L 98 F Pulse Rate 80 75 75 Respiratory 18 18 18 Rate Blood Pressure 93/67 98/59 105/63 O2 Sat by Pulse 98 99 99 Oximetry 02/12/25 02/12/25 02/12/25 18:35 18:46 19:43 Temperature 97.7 F Pulse Rate 70 66 71 Respiratory 21 Rate Blood Pressure 112/67 O2 Sat by Pulse 99 Oximetry 02/12/25 20:37 Temperature Pulse Rate Respiratory 22 Rate Blood Pressure 122/77 O2 Sat by Pulse 99 Oximetry Medical Decision Making - Medical Decision Making Was pt. sent in by a medical professional or institution (PILO Cruz, COMPREHENSIVE OPHTHALMOLOGIST, urgent care, hospital, or jail...) When possible be specific @ -Presents from living facility for fall on blood thinners. Did you speak to anyone other than the patient for history (EMS, parent, family, police, friend...)? What history was obtained from this source @ -No Did you review nursing and triage notes (agree or disagree)? Why? @ -I reviewed and agree with nursing and triage notes Were old charts reviewed (outside hosp., previous admission, EMS record, old EK G, old radiological studies, urgent care reports/EKG's, jail records)? Report findings @ -Reviewed EKG from December 2024 which shows no obvious acute change. Differential Diagnosis (chest pain, altered mental status, abdominal pain women, abdominal pain men, vaginal bleeding, weakness, fever, dyspnea, syncope, headache, dizziness, GI bleed, back pain, seizure, CVA, palpatations, mental health, musculoskeletal)? @ -Intracranial injury, spinal injury, chronic pain, electrolyte abnormalities, dehydration. This list is not all inclusive. EKG interpreted by me (3pts min.). @ -As above X-rays interpreted by me (1pt min.). @ -None done CT interpreted by me (1pt min.). @ -CT brain, C, T, L-spine negative for any obvious acute traumatic injury. Patient has a possible more subacute L1 spine Compression fracture however patient has more tenderness in the upper thoracic spine on current evaluation. No significant tenderness at the L1 area. U/S interpreted by me (1pt. min.). @ -None done What testing was considered but not performed or refused? (CT, X-rays, U/S, labs)? Why? @ -None What meds were considered but not given or refused? Why? @ -None Did you discuss the management of the patient with other professionals (professionals i.e. , PA, COMPREHENSIVE OPHTHALMOLOGIST, lab, RT, psych nurse, social services manager, sanitary landfill operator, teacher, equal opportunity officer, telephonic case manager)? Give summary @ -No Was smoking cessation discussed for >3mins.? @ -No Was critical care preformed (if so, how long)? @ -Yes, 15 minutes Were there social determinants of health that impacted care today? How? (Homelessness, low income, unemployed, alcoholism, drug addiction, transportation, low edu. Level, literacy, decrease access to med. care, fci, rehab)? @ -No Was there de-escalation of care discussed even if they declined (Discuss DNR or withdrawal of care, Hospice)? DNR status @ -No What co-morbidities impacted this encounter? (DM, HTN, Smoking, COPD, CAD, Cancer, CVA, ARF, Chemo, Hep., AIDS, mental health diagnosis, sleep apnea, morbid obesity)? @ -None Was patient admitted / discharged? Hospital course, mention meds given and route, prescriptions, significant lab abnormalities, going to OR and other pertinent info. @ -Patient presents for code coag. Vitals are within acceptable limits. Patient will be given a 500 cc fluid bolus with IV analgesia medications and lidocaine patch as well as a breathing treatment and IV steroids due to mild COPD. He was in agreement this plan. CT brain, C-spine, T-spine, L-spine ordered. Patient was in agreement this plan. Most of patient's pain seems to be in the thoracic spine but states he has chronic diffuse back pain. Imaging returned remarkable for no acute intracranial injury. Patient does have a questionable subacute L1 fracture however patient does not have significant tenderness on palpation at this site. Most of his tenderness is in the mid to upper thoracic spine on my evaluation. Patient's laboratory studies returned remarkable for a mild MARSHALL in the setting of CKD. Patient given additional 500 cc fluid bolus. On reevaluation, vitals remained within acceptable limits. I discussed results with the patient. He will be discharged back to his facility at this time. He was in agreement this plan. I instructed the patient to follow up with their PCP in the next 1-3 days. I explained that the patient should return to the emergency department if they experience any worsening symptoms. Strict return precautions were discussed with the patient. The patient expressed understanding of these instructions. I answered all questions that the patient had. The patient was discharged home in good condition with their prescriptions and follow up information. Undiagnosed new problem with uncertain prognosis? @ -No Drug Therapy requiring intensive monitoring for toxicity (Heparin, Nitro, Insulin, Cardizem)? @ -No Were any procedures done? @ -No Diagnosis/symptom? @ -Fall, chronic back pain, MARSHALL Acute, or Chronic, or Acute on Chronic? @ -Acute Uncomplicated (without systemic symptoms) or Complicated (systemic symptoms)? @ -Uncomplicated Side effects of treatment? @ -No Exacerbation, Progression, or Severe Exacerbation? @ -No Poses a threat to life or bodily function? How? (Chest pain, [place], [place], pneumonia, PE, COPD, DKA, ARF, appy, cholecystitis, CVA, Diverticulitis, Homicidal, Suicidal, threat to staff... and all critical care pts) @ -Unlikely at this time - Lab Data Result diagrams: 02/12/25 17:25 02/12/25 17:25 Lab Results 02/12/25 02/12/25 02/12/25 Range/Units 17:25 17:25 18:31 WBC 8.75 (4.50-10.00) 10*3/uL RBC 4.68 (4.40-5.60) 10*6/uL Hgb 12.5 L (13.0-17.0) g/dL Hct 39.3 L (39.6-50.0) % MCV 84.0 (80.0-97.0) fL MCH 26.7 L (27.0-32.0) pg MCHC 31.8 L (32.0-37.0) g/dL Plt Count 187 (140-440) 10*3/uL MPV 9.8 (9.5-12.2) fL Immature Gran % (Auto) 1.1 % Neutrophils % 70.2 % Lymphocytes % 19.0 % Monocytes % 8.8 % Eosinophils % 0.7 % Basophils % 0.2 % Immature Gran # 0.10 H (0.00-0.04) 10*3/uL Neutrophils # 6.14 (1.80-7.70) 10*3/uL Lymphocytes # 1.66 (0.90-5.00) 10*3/uL Monocytes # 0.77 (0.20-1.00) 10*3/uL Eosinophils # 0.06 (0.04-0.35) 10*3/uL Basophils # 0.02 (0.00-0.10) 10*3/uL Sodium 135 L (137-145) mmol/L Potassium 5.0 (3.5-5.1) mmol/L Chloride 101 (98-107) mmol/L Carbon Dioxide 24 (22-30) mmol/L Anion Gap 10 mmol/L BUN 35 H (9-20) mg/dL Creatinine 1.70 H (0.66-1.25) mg/dL Est GFR (CKD-EPI)AfAm 46 (>60 ml/min/1.73 sqM) Est GFR (CKD-EPI)NonAf 39 (>60 ml/min/1.73 sqM) Glucose 118 H (74-99) mg/dL Calcium 9.0 (8.4-10.2) mg/dL Total Bilirubin 0.4 (0.2-1.3) mg/dL AST 28 (17-59) U/L ALT 21 (4-49) U/L Alkaline Phosphatase 56 (38-126) U/L Total Protein 6.7 (6.3-8.2) g/dL Albumin 4.2 (3.5-5.0) g/dL Urine Color Colorless Urine Appearance Clear (Clear) Urine pH 5.5 (5.0-8.0) Ur Specific [place] 1.013 (1.001-1.035) Urine Protein Negative (Negative) Urine Glucose (UA) 3+ H (Negative) Urine Ketones Negative (Negative) Urine Blood Negative (Negative) Urine Nitrite Negative (Negative) Urine Bilirubin Negative (Negative) Urine Urobilinogen <2.0 (<2.0) mg/dL Ur Leukocyte Esterase Negative (Negative) Serum Alcohol <10 mg/dL - EKG Data -: EKG Interpreted by Me EKG Comments: 12-lead Electrocardiogram Interpretation Note EKG was reviewed and interpreted by myself. 12-lead ECG performed at 1710 is interpreted by me as revealing atrial fibrillation versus atrial flutter at a rate of 79 beats per minute. [place] is normal. QRS durations 100 ms, QTc is 415 ms. PVCs are present.. There were no ST or T wave abnormalities to suggest myocardial ischemia or injury. R wave progression across the precordium was satisfactory. By my interpretation this EKG is non-diagnostic for acute isc hemia. Compared with EKG from December 2024 with no significant acute change. Disposition Clinical Impression: Fall, MARSHALL (acute kidney injury), Chronic pain Disposition: HOME SELF-CARE Condition: Good Instructions (If sedation given, give patient instructions): Fall Prevention for Older Adults (ED) Is patient prescribed a controlled substance at d/c from ED?: No Referrals: Denys Quispe MD [Primary Care Provider] - 1-2 days Time of Disposition: 19:30
[2025-02-12 19:44] VITALS: PULSE 71; TEMP 97.7
[2025-02-12 20:38] VITALS: BP 122/77; RESP 22
== END 2025-02-12 22:17 | disposition home or self-care (01) ==
LOC: EC 16:37
DX: M54.9 Dorsalgia, unspecified (principal); G89.29 Other chronic pain; F17.200 Nicotine dependence, unspecified, uncomplicated; Z88.0 Allergy status to penicillin; Z88.5 Allergy status to narcotic agent; Z88.7 Allergy status to serum and vaccine; Z88.8 Allergy status to other drugs, medicaments and biological substances; N17.9 Acute kidney failure, unspecified; N18.9 Chronic kidney disease, unspecified; W18.39XA Other fall on same level, initial encounter
CPT/HCPCS: 36415; 94640; 93005; 80053; 85025; 81003; 80320; 72128; 72125; 72131; 70450; 99285; 96374; 96375; 96376; 96361; J1171; J2919

== ENCOUNTER 2025-02-14 13:48 | Inpatient (IN) | payer OTHER ==
[2025-02-14] MEDS: KETOROLAC 15 MG/ML 1 ML VIAL IVP STA (15:00)
[2025-02-14 15:09] LABS: HCT 35.6 % (39.6-50.0); HGB 11.6 g/dL (13.0-17.0); Lymphocytes % (A) 20.2 %; MCH 27.1 pg (27.0-32.0); MCHC 32.6 g/dL (32.0-37.0); MCV 83.2 fL (80.0-97.0); Monocytes % (A) 9.3 %; Neutrophils % (A) 69.4 %; Platelet Count 166 10*3/uL (140-440); RBC 4.28 10*6/uL (4.40-5.60); RDW 18.3 % (11.5-14.5); WBC 10.33 10*3/uL (4.50-10.00)
[2025-02-14 15:10] LABS: Basophils # (A) 0.01 10*3/uL (0.00-0.10); Basophils % (A) 0.1 %; Eosinophils # (A) 0.02 10*3/uL (0.04-0.35); Eosinophils % (A) 0.2 %; Lymphocytes # (A) 2.09 10*3/uL (0.90-5.00); Monocytes # (A) 0.96 10*3/uL (0.20-1.00); Neutrophils # (A) 7.17 10*3/uL (1.80-7.70)
--- NOTE | 2025-02-14 15:13 | ED ---
Back Pain HPI - General Chief Complaint: Back Pain/Injury Stated Complaint: fall,back pain Time Seen by Provider: 02/14/25 14:01 Source: patient, RN notes reviewed Mode of arrival: ambulatory Limitations: physical limitation - History of Present Illness Initial Comments: 74-year-old male presents emergency department chief complaint of low back pain. Patient was sent in by [facility] for admission secondary to increasing back pain, pain management and unable to ambulate secondary to pain. Patient denies any bowel, bladder and cons retention. Patient states he has some pain that rates down his legs. Patient denies any falls since his injury. Patient states he already had some nerve issues. Patient [place] any abdominal pain no chest pain no shortness of breath. - Related Data Home Medications Medication Instructions Recorded Confirmed Mirtazapine [Remeron] 30 mg PO HS@199901/10/25 01/23/25 lisinopriL [Zestril] 2.5 mg PO DAILY@0801/10/25 01/23/25 Budesonide/Formoterol Fumarate 2 inh INHALATION BID 01/23/25 01/23/25 [Symbicort 160-4.5 Mcg Inhaler] Gabapentin 300 mg PO DAILY PRN 01/23/25 01/23/25 Nitroglycerin Sl Tabs [Nitrostat] 0.4 mg SUBLINGUAL Q5M PRN 01/23/25 01/23/25 Spironolactone 25 mg PO DAILY 01/23/25 01/23/25 Stimulant 8.6-50mg (Unk) 1 tab PO DAILY PRN 01/23/25 01/23/25 Torsemide [Demadex] 10 mg PO DAILY 01/23/25 01/23/25 Vit B12 500 mg PO DAILY 01/23/25 01/23/25 predniSONE 5 mg PO DAILY 01/23/25 01/23/25 Previous Rx's Medication Instructions Recorded Acetaminophen [Tylenol 8 Hour] 650 mg PO TID@0800,1400,1999 30 12/11/24 Days tab Apixaban [Eliquis] 5 mg PO BID@00,1999 #60 tab 12/11/24 Atorvastatin Calcium [Lipitor] 40 mg PO HS@1999 30 Days tab 12/11/24 Dapagliflozin Propanediol [Farxiga] 10 mg PO DAILY@00 30 Days tab 12/11/24 Diclofenac Sodium Gel [Voltaren 1% 4 gm TOPICAL QID@08,12,16,20 30 12/11/24 Gel] Days gm Folic Acid 0.4 mg PO DAILY@0800 30 Days tab 12/11/24 Ipratropium-Albuterol Nebulize 3 ml INHALATION RT-QID 30 Days 12/11/24 [Duoneb 0.5 mg-3 mg/3 ml Soln] each Levothyroxine Sodium [Synthroid] 100 mcg PO DAILY@00 30 Days tab 12/11/24 Pantoprazole Sodium [Protonix] 20 mg PO AC-BID@799,1999 30 Days 12/11/24 tab Pentoxifylline [TRENtal] 400 mg PO BID-W/MEALS 30 Days tab 12/11/24 Spironolactone [Aldactone] 12.5 mg PO DAILY@0800 30 Days tab 12/11/24 Aspirin 81 mg PO DAILY tab 01/12/25 Metoprolol Tartrate [Lopressor] 25 mg PO BID@799,1999 #0 01/12/25 Allergies Allergy/AdvReac Type Severity Reaction Status Date / Time morphine Allergy Anaphylaxis Verified 02/12/25 16:43 Penicillins Allergy Swelling Verified 02/12/25 16:43 on entire body Influenza Virus Vaccines AdvReac Unknown Verified 02/12/25 16:43 pneumococcal vaccine AdvReac Unknown Verified 02/12/25 16:43 Review of Systems ROS Statement: Those systems with pertinent positive or pertinent negative responses have been documented in the HPI. ROS Other: All systems not noted in ROS Statement are negative. Past Medical History Past Medical History: Coronary Artery Disease (CAD), Heart Failure, COPD, Dementia, Hyperlipidemia, Hypertension, Myocardial Infarction ([place]), Seizure Disorder, Syncope, Thyroid Disorder Additional Past Medical History / Comment(s): Ischemic cardiomyopathy, EF 20- 25%, last seizure about 2 yrs ago, hypothyroid.neuropathy "WHEN HE WORKED HE HAD A CRUSHING INJURY -COLLAPSED LUNGS C/T AND HAS CHRONIC BACK PAIN"" pt states he is schizophrenic/bipolar. TRIPLE A REPAIR AUG 2022 Last Myocardial Infarction Date:: unk History of Any Multi-Drug Resistant Organisms: None Reported Past Surgical History: AICD, Back Surgery, Coronary Bypass/CABG, Heart Catheterization, Heart Catheterization With Stent Additional Past Surgical History / Comment(s): 1995 CABG 4 vessel in [place], has had 2"HEART CATHS/had 2 STENTS after cabg sx.pt stated they were done in [facility]. "sx on tailbone, cortisone injections, devin inguinal hernia repair Past Anesthesia/Blood Transfusion Reactions: No Reported Reaction Date of Last Stent Placement:: 1995 Type of Cardiac Device: AICD Device Placement Date:: 1995 in [facility] Past Psychological History: Anxiety, Depression, Schizoaffective Disorder, Schizophrenia Smoking Status: Current every day smoker Past Alcohol Use History: None Reported Past Drug Use History: Marijuana - Past Family History Mother Family Medical History: Respiratory Disorder Additional Family Medical History / Comment(s): Mother had TB Father Additional Family Medical History / Comment(s): Father was an alcoholic, was killed in a motor vehicle accident General Exam Limitations: physical limitation General appearance: alert, in no apparent distress Head exam: Present: atraumatic, normocephalic, normal inspection Neck exam: Present: normal inspection, full ROM. Absent: tenderness, meningismus, lymphadenopathy Respiratory exam: Present: normal lung sounds bilaterally. Absent: respiratory distress, wheezes, rales, rhonchi, stridor Cardiovascular Exam: Present: regular rate, normal rhythm, normal heart sounds. Absent: systolic murmur, diastolic murmur, rubs, gallop, clicks GI/Abdominal exam: Present: soft, normal bowel sounds. Absent: distended, tenderness, guarding, rebound, rigid Extremities exam: Present: other (Lower extremity neurovascular intact strength 4/5) Back exam: Present: normal inspection, tenderness, paraspinal tenderness, vertebral tenderness (lumbar ). Absent: full ROM Neurological exam: Present: alert, oriented X3, CN II-XII intact, reflexes normal. Absent: motor sensory deficit Skin exam: Present: warm, dry, intact, normal color. Absent: rash Course Vital Signs 02/14/25 13:57 Temperature 97.5 F L Pulse Rate 66 Respiratory 18 Rate Blood Pressure 92/59 O2 Sat by Pulse 99 Oximetry Medical Decision Making - Medical Decision Making Was pt. sent in by a medical professional or institution (, PA, BUSINESS ACCOUNT MANAGER, urgent care, hospital, or alf...) When possible be specific @ -[facility] Did you speak to anyone other than the patient for history (EMS, parent, family, police, friend...)? What history was obtained from this source @ -No Did you review nursing and triage notes (agree or disagree)? Why? @ -I reviewed and agree with nursing and triage notes Were old charts reviewed (outside hosp., previous admission, EMS record, old EKG, old radiological studies, urgent care reports/EKG's, alf records)? Report findings @ -CT lumbar spine showing evidence of compression fracture L1 Differential Diagnosis (chest pain, altered mental status, abdominal pain women, abdominal pain men, vaginal bleeding, weakness, fever, dyspnea, syncope, headache, dizziness, GI bleed, back pain, seizure, CVA, palpatations, mental health, musculoskeletal)? @ -Differential Back Pain: Strain, zoster, cauda equina syndrome, epidural abscess, vertebral osteomyelitis, discitis, fracture, subluxation, disc herniation, DJD, spinal stenosis, dissection, AAA, pancreatitis, peptic ulcer disease, pyelonephritis, kidney stone, this is not meant to be an all-inclusive list. EKG interpreted by me (3pts min.). @ -None X-rays interpreted by me (1pt min.). @ -None done CT interpreted by me (1pt min.). @ -None done U/S interpreted by me (1pt. min.). @ -None done What testing was considered but not performed or refused? (CT, X-rays, U/S, labs)? Why? @ -None What meds were considered but not given or refused? Why? @ -None Did you discuss the management of the patient with other professionals (professionals i.e. , PA, BUSINESS ACCOUNT MANAGER, lab, RT, psych nurse, group social worker, claim trainee, teacher, marine safety officer, shelter case manager)? Give summary @ -Sound physician for admission Was smoking cessation discussed for >3mins.? @ -No Was critical care preformed (if so, how long)? @ -No Were there social determinants of health that impacted care today? How? (Homelessness, low income, unemployed, alcoholism, drug addiction, transportation, low edu. Level, literacy, decrease access to med. care, halfway, rehab)? @ -No Was there de-escalation of care discussed even if they declined (Discuss DNR or withdrawal of care, Hospice)? DNR status @ -No What co-morbidities impacted this encounter? (DM, HTN, Smoking, COPD, CAD, Cancer, CVA, ARF, Chemo, Hep., AIDS, mental health diagnosis, sleep apnea, morbid obesity)? @ -None Was patient admitted / discharged? Hospital course, mention meds given and route, prescriptions, significant lab abnormalities, going to OR and other pertinent info. @ -Admitted patient presented for increasing back pain patient will be admitted for pain management and rehab. Patient has L1 compression fracture. Undiagnosed new problem with uncertain prognosis? @ -No Drug Therapy requiring intensive monitoring for toxicity (Heparin, Nitro, Insulin, Cardizem)? @ -No Were any procedures done? @ -No Diagnosis/symptom? @ -Compression fracture, inability ambulate Acute, or Chronic, or Acute on Chronic? @ -Acute Uncomplicated (without systemic symptoms) or Complicated (systemic symptoms)? @ -complicated Side effects of treatment? @ -No Exacerbation, Progression, or Severe Exacerbation? @ -No Poses a threat to life or bodily function? How? (Chest pain, [place], [place], pneumonia, PE, COPD, DKA, ARF, appy, cholecystitis, CVA, Diverticulitis, Homicidal, Suicidal, threat to staff... and all critical care pts) @ -No - Lab Data Result diagrams: 02/14/25 14:46 02/14/25 14:46 Lab Results 02/14/25 02/14/25 Range/Units 14:46 14:46 WBC 10.33 H (4.50-10.00) 10*3/uL RBC 4.28 L (4.40-5.60) 10*6/uL Hgb 11.6 L (13.0-17.0) g/dL Hct 35.6 L (39.6-50.0) % MCV 83.2 (80.0-97.0) fL MCH 27.1 (27.0-32.0) pg MCHC 32.6 (32.0-37.0) g/dL Plt Count 166 (140-440) 10*3/uL MPV 9.7 (9.5-12.2) fL Immature Gran % (Auto) 0.8 % Neutrophils % 69.4 % Lymphocytes % 20.2 % Monocytes % 9.3 % Eosinophils % 0.2 % Basophils % 0.1 % Immature Gran # 0.08 H (0.00-0.04) 10*3/uL Neutrophils # 7.17 (1.80-7.70) 10*3/uL Lymphocytes # 2.09 (0.90-5.00) 10*3/uL Monocytes # 0.96 (0.20-1.00) 10*3/uL Eosinophils # 0.02 L (0.04-0.35) 10*3/uL Basophils # 0.01 (0.00-0.10) 10*3/uL Sodium 134 L (137-145) mmol/L Potassium 4.4 (3.5-5.1) mmol/L Chloride 99 (98-107) mmol/L Carbon Dioxide 24 (22-30) mmol/L Anion Gap 11 mmol/L BUN 38 H (9-20) mg/dL Creatinine 1.25 (0.66-1.25) mg/dL Est GFR (CKD-EPI)AfAm 66 (>60 ml/min/1.73 sqM) Est GFR (CKD-EPI)NonAf 57 (>60 ml/min/1.73 sqM) Glucose 93 (74-99) mg/dL Calcium 9.8 (8.4-10.2) mg/dL Total Bilirubin 0.7 (0.2-1.3) mg/dL AST 27 (17-59) U/L ALT 19 (4-49) U/L Alkaline Phosphatase 52 (38-126) U/L Total Protein 6.4 (6.3-8.2) g/dL Albumin 4.0 (3.5-5.0) g/dL Disposition Clinical Impression: Fall, Lumbar compression fracture, Difficulty in walking Disposition: ADMITTED IP TO THIS [facility] Referrals: Denys Quispe MD [REFERRING] - 1-2 days Time of Disposition: 15:13
[2025-02-14 15:28] LABS: ALT 19 U/L (4-49); AST 27 U/L (17-59); African American GFR (CKD) 66 (>60 ml/min/1.73 sqM); Albumin 4.0 g/dL (3.5-5.0); Alkaline Phosphatase 52 U/L (38-126); Anion Gap 11 mmol/L; Blood Urea Nitrogen 38 mg/dL (9-20); Calcium 9.8 mg/dL (8.4-10.2); Carbon Dioxide 24 mmol/L (22-30); Chloride 99 mmol/L (98-107); Glucose 93 mg/dL (74-99); Non-African American GFR(CKD) 57 (>60 ml/min/1.73 sqM); Potassium 4.4 mmol/L (3.5-5.1); Sodium 134 mmol/L (137-145); Total Protein 6.4 g/dL (6.3-8.2)
[2025-02-14] MEDS ORDERED: ACETAMINOPHEN TAB 325 MG TAB PO PRN (15:36)
[2025-02-14] MEDS ORDERED: NALOXONE 0.4 MG/ML 1 ML VIAL IV PRN (15:36)
[2025-02-14] MEDS: HYDROcodone/APAP 5-325MG 1 EACH TAB PO PRN (16:03)
[2025-02-14 17:18] LABS: Bilirubin,Urine Negative (Negative); Blood,Urine Negative (Negative); Color,Urine Colorless; Glucose,Urine (UA) 1+ (Negative); Ketones,Urine Negative (Negative); Leukocyte Esterase,Urine Negative (Negative); Nitrite,Urine Negative (Negative); PH, Urine 5.0 (5.0-8.0); Protein,Urine Negative (Negative); Specific Gravity,Urine 1.008 (1.001-1.035); Urobilinogen,Urine <2.0 mg/dL (<2.0)
--- NOTE | 2025-02-14 18:05 | P.HPIM ---
History of Present Illness H&P Date: 02/14/25 History of Presenting Illness: Patient is a very pleasant 74-year-old male whom resides at [facility] under care of [facility] with a past medical history of CAD status post stenting followed by CABG, ischemic cardiomyopathy with EF of 20 to 25% status post AICD placement, paroxysmal atrial fibrillation, hypertension, hyperlipidemia, hypothyroidism, AAA status postrepair, seizure disorder, anxiety with depression, schizoaffective disorder, and schizophrenia, nicotine dependence, and cannabinoid use. He presented to the emergency department as sent by his PCP secondary to increasing back pain and inability to ambulate secondary to pain. Patient reports lower back pain with bilateral lower extremity sciatica. He denies having any numbness, involuntary loss of bowel or bladder, or experienci ng saddlebag amnesia. Patient was seen in the emergency department on 02/12/2025 status post fall. Patient underwent a CT lumbar spine and was found to have fracture of indeterminate age involving the superior endplate of L1 that was reported to be likely recent along with evidence of mild flattening of the ventral thecal sac and no reports of spinal stenosis. Patient was discharged home from the emergency department however reports pain continued to worsen and he is now unable to ambulate. Patient denies having any other complaints at this time he denies focal weakness or numbness and again denies having any involuntary loss of bowel or bladder. Upon arrival to our facility, patient underwent evaluation in the emergency department. Vital signs upon arrival show blood pressure 92/59, heart rate 66, respiratory rate 18, temp 97.5 F, and SpO2 of 99% on room air. Labs completed and reviewed. CBC showing leukocytosis with WBC count of 10.33 and normocytic anemia with hemoglobin of 11.6. BMP showing sodium of 134 and prerenal azotemia with BUN of 38. Blood glucose was 93. Liver profile unremarkable. Urinalysis positive for glucose but negative for protein, blood, or infection. Patient admitted under our services with consultation to orthospine surgery. Review of systems: Pertinent positives and negatives as discussed in HPI, a complete review of systems was performed and all other systems are negative. Physical exam: Vital signs reviewed and stable. General: Nontoxic, no distress and appears stated age. Derm: Skin warm and dry, normal coloration for ethnicity. Head: Atraumatic, normocephalic and symmetric. Eyes: EOM's intact, no lid lag, and anicteric sclera Mouth: no lip lesions, mucus membranes moist Cardiovascular: regular rate and rhythm with normal S1S2, systolic murmur, positive posterior tibial pulses bilaterally, and cap refill < 2 seconds. Lungs: Respirations even, regular, and unlabored on room air. Lungs CTA bilaterally, no rhonchi, no rales, no wheezing, and no accessory muscle usage. Abdominal: soft, nontender to palpation, no guarding, no appreciable organomegaly Ext: ROM intact. No gross muscle atrophy, no edema, no contractures Neuro: Speech clear, face symmetrical and CN II-XII grossly intact with no noted focal neuro deficits Psych: Alert and oriented to person, place, time, and situation. Appropriate and pleasant affect. Assessment and Plan of Care: Acute lumbar back pain with bilateral lower extremity sciatica resulting in inability to ambulate L1 fracture with mild flattening of ventral thecal sac Consult placed to orthospine surgery team Neurochecks every 4 hours Bladder scan to monitor for postvoid residual/retention Fall precautions Pain management with Tylenol 650 mg every 6 hours as needed for mild pain, [place] 5/325 mg tablets every 4 hours as needed for moderate pain, and Dilaudid 0.5 mg every 6 hours as needed for severe pain. Lidocaine patch to lumbar spine. Consult placed to PT/OT CAD status post stenting followed by CABG Ischemic cardiomyopathy with EF of 20 to 25% status post AICD placement Hypertension Hyperlipidemia AAA status postrepair Hold aspirin and Eliquis pending evaluation by orthospine surgery team. Patient to continue remaining cardiac medication regimen with atorvastatin 40 mg nightly, Farxiga 10 mg daily, lisinopril 2.5 mg daily, Aldactone 12.5 mg daily, metoprolol 37.5 mg twice daily, and Demadex 10 mg daily. Hypothyroidism Continue daily medication regimen with levothyroxine 100 mcg daily. Seizure disorder Anxiety with depression Schizophrenia Schizoaffective disorder Resume home medication regimen. Data and imaging reviewed: As stated above in HPI CODE STATUS: Full code DVT prophylaxis: SUGEY alexander and SCDs, may resume Eliquis once evaluated and cleared by orthospine surgery team. Discussed with: Patient, RN, and ED provider Anticipated discharge date: Pending clinical course and recommendations from orthospine surgery team Anticipated discharge place: Return to [facility] Patient was seen independently by Nurse Practitioner. This document was prepared using [employer] dictation software. Please allow for errors in carry out clerk while rare they do occur. Valerio Leo NP rendered care for this patient independently, reviewed the findings and plan as documented in the note above and agree with plan. I did not physically speak with or examine the patient on this date. Past Medical History Past Medical History: Coronary Artery Disease (CAD), Heart Failure, COPD, Dementia, Hyperlipidemia, Hypertension, Myocardial Infarction ([place]), Seizure Disorder, Syncope, Thyroid Disorder Additional Past Medical History / Comment(s): Ischemic cardiomyopathy, EF 20- 25%, last seizure about 2 yrs ago, hypothyroid.neuropathy "WHEN HE WORKED HE HAD A CRUSHING INJURY -COLLAPSED LUNGS C/T AND HAS CHRONIC BACK PAIN"" pt states he is schizophrenic/bipolar. TRIPLE A REPAIR AUG 2022 Last Myocardial Infarction Date:: unk History of Any Multi-Drug Resistant Organisms: None Reported Past Surgical History: AICD, Back Surgery, Coronary Bypass/CABG, Heart Catheterization, Heart Catheterization With Stent Additional Past Surgical History / Comment(s): 1995 CABG 4 vessel in [place], has had 2"HEART CATHS/had 2 STENTS after cabg sx.pt stated they were done in [facility]. "sx on tailbone, cortisone injections, devin inguinal hernia repair Past Anesthesia/Blood Transfusion Reactions: No Reported Reaction Date of Last Stent Placement:: 1995 Type of Cardiac Device: AICD Device Placement Date:: 1995 in [facility] Past Psychological History: Anxiety, Depression, Schizoaffective Disorder, Schizophrenia Smoking Status: Current every day smoker Past Alcohol Use History: None Reported Past Drug Use History: Marijuana - Past Family History Mother Family Medical History: Respiratory Disorder Additional Family Medical History / Comment(s): Mother had TB Father Additional Family Medical History / Comment(s): Father was an alcoholic, was killed in a motor vehicle accident Medications and Allergies Home Medications Medication Instructions Recorded Confirmed Type Acetaminophen [Tylenol 8 Hour] 650 mg PO TID@0800,1400,1999 30 12/11/24 01/23/25 Rx Days tab Apixaban [Eliquis] 5 mg PO BID@0800,1999 #60 tab 12/11/24 01/23/25 Rx Atorvastatin Calcium [Lipitor] 40 mg PO HS@1999 30 Days tab 12/11/24 01/23/25 Rx Dapagliflozin Propanediol [Farxiga] 10 mg PO DAILY@0800 30 Days tab 12/11/24 01/23/25 Rx Diclofenac Sodium Gel [Voltaren 1% 4 gm TOPICAL QID@08,12,16,20 30 12/11/24 01/23/25 Rx Gel] Days gm Folic Acid 0.4 mg PO DAILY@0800 30 Days tab 12/11/24 01/23/25 Rx Ipratropium-Albuterol Nebulize 3 ml INHALATION RT-QID 30 Days 12/11/24 01/23/25 Rx [Duoneb 0.5 mg-3 mg/3 ml Soln] each Levothyroxine Sodium [Synthroid] 100 mcg PO DAILY@0700 30 Days tab 12/11/24 01/23/25 Rx Pantoprazole Sodium [Protonix] 20 mg PO AC-BID@799,1999 30 Days 12/11/24 01/23/25 Rx tab Pentoxifylline [TRENtal] 400 mg PO BID-W/MEALS 30 Days tab 12/11/24 01/23/25 Rx Spironolactone [Aldactone] 12.5 mg PO DAILY@0800 30 Days tab 12/11/24 01/23/25 Rx Mirtazapine [Remeron] 30 mg PO HS@199901/10/25 01/23/25 History lisinopriL [Zestril] 2.5 mg PO DAILY@79901/10/25 01/23/25 History Aspirin 81 mg PO DAILY tab 01/12/25 01/23/25 Rx Metoprolol Tartrate [Lopressor] 25 mg PO BID@ #0 01/12/25 01/23/25 Rx Budesonide/Formoterol Fumarate 2 inh INHALATION BID 01/23/25 01/23/25 History [Symbicort 160-4.5 Mcg Inhaler] Gabapentin 300 mg PO DAILY PRN 01/23/25 01/23/25 History Nitroglycerin Sl Tabs [Nitrostat] 0.4 mg SUBLINGUAL Q5M PRN 01/23/25 01/23/25 History Spironolactone 25 mg PO DAILY 01/23/25 01/23/25 History Stimulant 8.6-50mg (Unk) 1 tab PO DAILY PRN 01/23/25 01/23/25 History Torsemide [Demadex] 10 mg PO DAILY 01/23/25 01/23/25 History Vit B12 500 mg PO DAILY 01/23/25 01/23/25 History predniSONE 5 mg PO DAILY 01/23/25 01/23/25 History Allergies Allergy/AdvReac Type Severity Reaction Status Date / Time morphine Allergy Anaphylaxis Verified 02/12/25 16:43 Penicillins Allergy Swelling Verified 02/12/25 16:43 on entire body Influenza Virus Vaccines AdvReac Unknown Verified 02/12/25 16:43 pneumococcal vaccine AdvReac Unknown Verified 02/12/25 16:43 Physical Exam Vitals: Vital Signs Temp Pulse Resp BP Pulse Ox 02/14/25 17:27 57 L 16 98/57 97 02/14/25 13:57 97.5 F L 66 18 92/59 99 Intake and Output 02/14/25 02/14/25 02/14/25 06:59 14:59 22:59 Other: Weight 65.771 kg Results CBC & Chem 7: 02/14/25 14:46 02/14/25 14:46 Labs: Abnormal Lab Results - Last 24 Hours (Table) 02/14/25 02/14/25 02/14/25 Range/Units 14:18 14:46 14:46 WBC 10.33 H (4.50-10.00) 10*3/uL RBC 4.28 L (4.40-5.60) 10*6/uL Hgb 11.6 L (13.0-17.0) g/dL Hct 35.6 L (39.6-50.0) % Immature Gran # 0.08 H (0.00-0.04) 10*3/uL Eosinophils # 0.02 L (0.04-0.35) 10*3/uL Sodium 134 L (137-145) mmol/L BUN 38 H (9-20) mg/dL Urine Glucose (UA) 1+ H (Negative)
[2025-02-14] MEDS: LIDOCAINE 4% PATCH TOPICAL SCH (18:17)
[2025-02-14] MEDS: NICOTINE 21MG/24HR PATCH TRANSDERM SCH (18:20)
--- NOTE | 2025-02-14 18:52 | P.PN ---
Progress Note - Text Progress Note Date: 02/14/25 Patient's imaging has been reviewed from his ER visit on 02/12/2025, CT of the thoracic and lumbar spine demonstrates an L1 vertebral compression fracture. Due to the inability to ambulate secondary to increased low back pain, we are recommending surgical intervention of L1 kyphoplasty. This has tentatively been scheduled for 02/16/2025. Full orthopedic consult to follow.
[2025-02-14] MEDS: MIRTAZAPINE 15 MG TAB PO SCH (19:17)
[2025-02-14] MEDS: PANTOPRAZOLE 40 MG TABLET PO SCH (19:17)
[2025-02-14] MEDS: ATORVASTATIN 40 MG TAB PO SCH (19:18)
[2025-02-14] MEDS: HYDROmorphone 0.5 MG/0.5 ML SYRINGE IVP PRN (19:18)
[2025-02-14] MEDS: METOPROLOL TARTRATE 12.5 MG TAB PO SCH (19:20)
[2025-02-14] MEDS ORDERED: METOPROLOL TARTRATE 25 MG TAB PO SCH (20:00)
[2025-02-14] MEDS: SENNOSIDES-DOCUSATE SODIUM 1 EACH TAB PO SCH (20:19)
[2025-02-14] MEDS: IPRATROPIUM-ALBUTEROL 3 ML NEB INHALATION SCH (22:09)
[2025-02-14] MEDS: SYMBICORT 160-4.5 MCG INHALER INHALATION SCH (22:09)
[2025-02-15] MEDS: LEVOTHYROXINE 100 MCG TAB PO SCH (06:31)
[2025-02-15] MEDS: PENTOXIFYLLINE 400 MG TABLET.ER PO SCH (06:31)
[2025-02-15] MEDS: CYANOCOBALAMIN 500 MCG TAB PO SCH (08:11)
[2025-02-15] MEDS: DAPAGLIFLOZIN PROPANEDIOL 10 MG TABLET PO SCH (08:11)
[2025-02-15] MEDS: TORSEMIDE 20 MG TAB PO SCH (08:11)
[2025-02-15] MEDS: FOLIC ACID 1 MG TAB PO SCH (08:11)
[2025-02-15] MEDS: SPIRONOLACTONE 25 MG TAB PO SCH (08:12)
[2025-02-15] MEDS ORDERED: HYDROmorphone 0.5 MG/0.5 ML SYRINGE IVP PRN (09:06)
--- NOTE | 2025-02-15 09:06 | P.CNOR ---
History of Present Illness - [facility] Consult date: 02/15/25 Requesting physician: Valerio Leo Consult reason: back pain (L1 VCF) History of present illness: History of Presenting Illness Patient is a pleasant 74-year-old male who presents to the ER due to increasing back pain and difficulty ambulating. Patient states that he did have a fall on 02/12/2025 and presented to the ER where he was diagnosed with a L1 vertebral compression fracture. He was instructed to follow-up outpatient with orthopedics. Patient states that he developed increasing lumbar pain that radiates into the anterior and lateral bilateral lower extremities to the knees. He states that he has had shooting pain into the bilateral lower extremities, although denies any numbness or tingling. Patient does state that he resides at [facility] and uses a 4 wheeled walker. Patient does have a past medical history of CAD, heart failure, COPD, dementia, hypertension, RI, seizure disorder, ischemic cardiomyopathy, EF of 20 to 25%, patient has had a heart catheterization with stent placement and is currently on Eliquis. Patient's orthopedic history is chronic back pain due to a crush injury when he was working. Patient seen and examined this morning. Patient is resting comfortably in bed. He does report that his pain has been better managed since admission. He continues to report a sharp lumbar pain that radiates into his bilateral lower extremities. Patient has been ambulatory to the restroom, tolerating activity well. Discussed with patient the findings on his CT scan from 02/12/2025 demonstrating an age indeterminant L1 vertebral compression fracture. Educated patient with the increasing back pain and inability to ambulate secondary to pain that we recommend surgical intervention. Patient verbalizes understanding and would like to proceed. Review of Systems Pertinent positives and negatives as discussed in HPI, a complete review of systems was performed and all other systems are negative. Physical Examination General: The patient is awake and alert, in no acute distress Skin: Skin is warm and dry with no obvious rashes or lesions. Neck: The neck is supple, there is no tenderness and ROM intact. Cardiovascular: There is a regular rate and rhythm. Respiratory: Respirations are non-labored. Gastrointestinal: Soft, non-distended, non-tender abdomen. Back: There is moderate tenderness to palpation in the midline lumbar region over the L1 vertebral area. There is no obvious deformity. Musculoskeletal: ROM limited secondary to pain. Right: shoulder abduction 5/5, elbow flexors 5/5, wrist dorsiflexors 5/5. finger abductor 5/5, bun machine operator 5/5, hip flexor 4/5, knee flexor 4/5, ankle dorsiflexor 4/5, ankle plantarflexion 4/5 and extensor hallucis 4/5. Left: shoulder abduction 5/5, elbow flexors 5/5, wrist dorsiflexors 5/5. finger abductor 5/5, bun machine operator 5/5, hip flexor 4/5, knee flexor 4/5, ankle dorsiflexor 4/5, ankle plantarflexion 4/5 and extensor hallucis 4/5. Neurological: CN 2-12 intact. There are no obvious motor or sensory deficits. Movement and coordination equal and intact. Sensory exam to light touch intact C5-T1 and intact from L2-S1. Reflexes 2/4 in bilateral upper and lower extremities. Negative Hoffmans, babinski, and clonus signs. Special tests: Straight leg raise of the bilateral lower extremities reproduces sharp pain of the lumbar spine. Psychiatric: Cooperative, appropriate mood & affect, normal judgment. Assessment Recent fall Mechanical low back pain L1 vertebral compression fracture Bilateral lower extremity weakness Complex medical comorbidities Plan At this time we recommend surgical intervention of a L1 vertebral kyphoplasty. This has been scheduled for 02/16/2025. Patient will be n.p.o. at midnight. Risks and benefits have been discussed and patient would like to proceed with surgery. Consent will be obtained prior to procedure. 2. Appreciate medical management 3. Pain management -Decker and IV Dilaudid, Utilize ice therapy 20min every hour as needed. 4. GI prophylaxis -senna 5. DVT prophylaxis -hold patient's Eliquis at this time. 6. PT/OT - weightbearing as tolerated with a walker as needed. 7. Appreciate consult. I reviewed and discussed this case with my attending Dr. Gr, whom has reviewed this chart and films and is in agreement with assessment and plan of care as outlined above. I have personally seen and examined the patient, performed the documentation and the assessment and plan as written. Number of minutes spent on the visit: 30m. Past Medical History Past Medical History: Coronary Artery Disease (CAD), Heart Failure, COPD, Dementia, Hyperlipidemia, Hypertension, Myocardial Infarction (RI), Seizure Disorder, Syncope, Thyroid Disorder Additional Past Medical History / Comment(s): Ischemic cardiomyopathy, EF 20- 25%, last seizure about 2 yrs ago, hypothyroid.neuropathy "WHEN HE WORKED HE HAD A CRUSHING INJURY -COLLAPSED LUNGS C/T AND HAS CHRONIC BACK PAIN"" pt states he is schizophrenic/bipolar. TRIPLE A REPAIR AUG 2022 Last Myocardial Infarction Date:: unk History of Any Multi-Drug Resistant Organisms: None Reported Past Surgical History: AICD, Back Surgery, Coronary Bypass/CABG, Heart Catheterization, Heart Catheterization With Stent Additional Past Surgical History / Comment(s): 1995 CABG 4 vessel in [place], has had 2"HEART CATHS/had 2 STENTS after cabg sx.pt stated they were done in [facility]. "sx on tailbone, cortisone injections, devin inguinal hernia repair Past Anesthesia/Blood Transfusion Reactions: No Reported Reaction Date of Last Stent Placement:: 1995 Type of Cardiac Device: AICD Device Placement Date:: [address] [facility] Past Psychological History: Anxiety, Depression, Schizoaffective Disorder, Schizophrenia Additional Psychological History / Comment(s): . Smoking Status: Current every day smoker Past Alcohol Use History: None Reported Additional Past Alcohol Use History / Comment(s): . Past Drug Use History: Marijuana Additional Drug Use History / Comment(s): Pt states he smokes marijuana on occasion, but quit a month ago. Smoke 1/2 pack a day - Past Family History Mother Family Medical History: Respiratory Disorder Additional Family Medical History / Comment(s): Mother had TB Father Additional Family Medical History / Comment(s): Father was an alcoholic, was killed in a motor vehicle accident Medications and Allergies Home Medications Medication Instructions Recorded Confirmed Type Acetaminophen [Tylenol 8 Hour] 650 mg PO TID@0800,1400,1999 30 12/11/24 02/14/25 Rx Days tab Atorvastatin Calcium [Lipitor] 40 mg PO HS@1999 30 Days tab 12/11/24 02/14/25 Rx Dapagliflozin Propanediol [Farxiga] 10 mg PO DAILY@0800 30 Days tab 12/11/24 02/14/25 Rx Diclofenac Sodium Gel [Voltaren 1% 4 gm TOPICAL QID@08,12,16,20 30 12/11/24 02/14/25 Rx Gel] Days gm Folic Acid 0.4 mg PO DAILY@0800 30 Days tab 12/11/24 02/14/25 Rx Ipratropium-Albuterol Nebulize 3 ml INHALATION RT-QID 30 Days 12/11/24 02/14/25 Rx [Duoneb 0.5 mg-3 mg/3 ml Soln] each Levothyroxine Sodium [Synthroid] 100 mcg PO DAILY@0700 30 Days tab 12/11/24 02/14/25 Rx Pantoprazole Sodium [Protonix] 20 mg PO AC-BID@ 30 Days 12/11/24 02/14/25 Rx tab Pentoxifylline [TRENtal] 400 mg PO BID-W/MEALS 30 Days tab 12/11/24 02/14/25 Rx Spironolactone [Aldactone] 12.5 mg PO DAILY@799 30 Days tab 12/11/24 02/14/25 Rx Mirtazapine [Remeron] 30 mg PO HS@199901/10/25 02/14/25 History lisinopriL [Zestril] 2.5 mg PO DAILY@79901/10/25 02/14/25 History Budesonide/Formoterol Fumarate 2 puff INHALATION RT-BID@01/23/25 02/14/25 History [Symbicort 160-4.5 Mcg Inhaler] Gabapentin 300 mg PO DAILY PRN 01/23/25 02/14/25 History Nitroglycerin Sl Tabs [Nitrostat] 0.4 mg SL Q5M PRN 01/23/25 02/14/25 History Torsemide [Demadex] 10 mg PO DAILY@79901/23/25 02/14/25 History Apixaban [Eliquis] 5 mg PO DIRECTED 02/14/25 02/14/25 History Aspirin 81 mg PO DAILY@79902/14/25 02/14/25 History Cyanocobalamin [Vitamin B-12] 1,000 mcg PO DAILY@79902/14/25 02/14/25 History Metoprolol Tartrate [Lopressor] 12.5 mg PO BID@799,199902/14/25 02/14/25 History Nicotine 21Mg/24Hr Patch [Habitrol] 1 patch TRANSDERM DAILY 02/14/25 02/14/25 History Sennosides/Docusate Sodium 2 tab PO HS 02/14/25 02/14/25 History [Senna-S 8.6-50 mg Tablet] Allergies Allergy/AdvReac Type Severity Reaction Status Date / Time morphine Allergy Anaphylaxis Verified 02/14/25 17:45 Penicillins Allergy Swelling Verified 02/14/25 17:45 on entire body Influenza Virus Vaccines AdvReac Unknown Verified 02/14/25 17:45 pneumococcal vaccine AdvReac Unknown Verified 02/14/25 17:45 Results - Labs Labs: Abnormal Lab Results - Last 24 Hours (Table) 02/14/25 02/14/25 02/14/25 Range/Units 14:18 14:46 14:46 WBC 10.33 H (4.50-10.00) 10*3/uL RBC 4.28 L (4.40-5.60) 10*6/uL Hgb 11.6 L (13.0-17.0) g/dL Hct 35.6 L (39.6-50.0) % Immature Gran # 0.08 H (0.00-0.04) 10*3/uL Eosinophils # 0.02 L (0.04-0.35) 10*3/uL Sodium 134 L (137-145) mmol/L BUN 38 H (9-20) mg/dL Urine Glucose (UA) 1+ H (Negative) H & H 02/14/25 Range/Units 14:46 Hgb 11.6 L (13.0-17.0) g/dL Hct 35.6 L (39.6-50.0) % Result Diagrams: 02/14/25 14:46 02/14/25 14:46
[2025-02-15] MEDS ORDERED: HYDROmorphone 1 MG/ML 1 ML SYRINGE IM PRN (10:09)
[2025-02-15] MEDS: HYDROmorphone 1 MG/ML 1 ML SYRINGE IVP PRN (10:29)
--- NOTE | 2025-02-15 12:34 | P.PN ---
Subjective Progress Note Date: 02/15/25 Hospital Course: Patient is a very pleasant 74-year-old male whom resides at [facility] under care of LATHAM with a past medical history of CAD status post stenting followed by CABG, ischemic cardiomyopathy with EF of 20 to 25% status post AICD placement, paroxysmal atrial fibrillation, hypertension, hyperlipidemia, hypothyroidism, AAA status postrepair, seizure disorder, anxiety with depression, schizoaffective disorder, and schizophrenia, nicotine dependence, and cannabin oid use. He presented to the emergency department as sent by his PCP secondary to increasing back pain and inability to ambulate secondary to pain. Patient reports lower back pain with bilateral lower extremity sciatica. He denies having any numbness, involuntary loss of bowel or bladder, or experiencing saddlebag amnesia. Patient was seen in the emergency department on 02/12/2025 status post fall. Patient underwent a CT lumbar spine and was found to have fracture of indeterminate age involving the superior endplate of L1 that was reported to be likely recent along with evidence of mild flattening of the ventral thecal sac and no reports of spinal stenosis. Patient was discharged home from the emergency department however reports pain continued to worsen and he is now unable to ambulate. Patient denies having any other complaints at this time he denies focal weakness or numbness and again denies having any involuntary loss of bowel or bladder. Upon arrival to our facility, patient underwent evaluation in the emergency department. Vital signs upon arrival show blood pressure 92/59, heart rate 66, respiratory rate 18, temp 97.5 F, and SpO2 of 99% on room air. Labs completed and reviewed. CBC showing leukocytosis with WBC count of 10.33 and normocytic anemia with hemoglobin of 11.6. BMP showing sodium of 134 and prerenal azotemia with BUN of 38. Blood glucose was 93. Liver profile unremarkable. Urinalysis positive for glucose but negative for protein, blood, or infection. Patient admitted under our services with consultation to orthospine surgery. Physical Exam: Patient seen and fully evaluated at bedside this morning. Patient tearful and states pain currently 10 out of 10 to lumbar spine radiating down bilateral legs and he remains unable to ambulate. He continues to deny having any numbness/tingling in his extremities, saddle back anesthesia, or experiencing any involuntary loss of bowel or urine. Patient reports oral pain medications have not helped with controlling pain and the IV medication helps some but wears off very quickly. Discussed with patient will increase dose and monitor for improvement. Vital signs reviewed and stable. General: Nontoxic, no distress and appears stated age. Derm: Skin warm and dry, normal coloration for ethnicity. Head: Atraumatic, normocephalic and symmetric. Eyes: EOM's intact, no lid lag, and anicteric sclera Mouth: no lip lesions, mucus membranes moist Cardiovascular: regular rate and rhythm with normal S1S2, systolic murmur, positive posterior tibial pulses bilaterally, and cap refill < 2 seconds. Lungs: Respirations even, regular, and unlabored on room air. Lungs CTA bilaterally, no rhonchi, no rales, no wheezing, and no accessory muscle usage. Abdominal: soft, nontender to palpation, no guarding, no appreciable organomegaly Ext: ROM intact. No gross muscle atrophy, no edema, no contractures Neuro: Speech clear, face symmetrical and CN II-XII grossly intact with no noted focal neuro deficits Psych: Alert and oriented to person, place, time, and situation. Appropriate and pleasant affect. Assessment and Plan of Care: Acute intractable lumbar back pain with bilateral lower extremity sciatica resulting in inability to ambulate L1 compression fracture with mild flattening of ventral thecal sac Consult placed to orthospine surgery team, discussed plan of care and they are recommending surgical intervention of L1 with vertebral kyphoplasty secondary to unstable compression fracture. Order placed for preoperative EKG Consult placed to cardiology for cardiac surgical clearance secondary to emily travis's extensive cardiac history Continue neurochecks every 4 hours Bladder scan to monitor for postvoid residual/retention Fall precautions Pain management with Tylenol 650 mg every 6 hours as needed for mild pain, [place] 5/325 mg tablets every 4 hours as needed for moderate pain, and Dilaudid increased to 1 mg every 3 hours as needed for severe pain. Lidocaine patch to lumbar spine. Consult placed to PT/OT CAD status post stenting followed by CABG Ischemic cardiomyopathy with EF of 20 to 25% status post AICD placement Hypertension Hyperlipidemia AAA status post-repair Hold aspirin and Eliquis pending completion of orthopedic surgery and clearance by orthospine surgery team to resume. Patient to continue remaining cardiac medication regimen with atorvastatin 40 mg nightly, Farxiga 10 mg daily, lisinopril 2.5 mg daily, Aldactone 12.5 mg daily, metoprolol 37.5 mg twice daily, and Demadex 10 mg daily. Hypothyroidism Continue daily medication regimen with levothyroxine 100 mcg daily. Seizure disorder Anxiety with depression Schizophrenia Schizoaffective disorder Resume home medication regimen. Data and imaging reviewed: Labs reviewed. CBC showing leukocytosis with WBC count of 10.33 and normocytic anemia with hemoglobin of 11.6. BMP showing sodium of 134 and prerenal azotemia with BUN of 38. Blood glucose was 93. Liver profile unremarkable. Vital signs reviewed. Blood pressure 117/73, heart rate 80, respiratory rate 18, temp 98.8 F, and SpO2 of 97% CODE STATUS: Full code DVT prophylaxis: SUGEY alexander and SCDs, may resume Eliquis once evaluated and cleared by orthospine surgery team. Discussed with: Patient, RN, orthopedic MANAGEMENT LEAD and cardiology MANAGEMENT LEAD was also notified of need for cardiac clearance. Anticipated discharge date: Pending clinical course Anticipated discharge place: Pending clinical course, possible return to [facility] Patient was seen independently by Nurse Practitioner. This document was prepared using [employer] dictation software. Please allow for errors in coil assembler while rare they do occur. Valerio Leo NP rendered care for this patient independently, reviewed the findings and plan as documented in the note above and agree with plan. I did not physically speak with or examine the patient on this date. Objective - Vital Signs Vital signs: Vital Signs Temp 98.8 F 02/15/25 07:57 Pulse 80 02/15/25 07:57 Resp 18 02/15/25 07:57 BP 117/73 02/15/25 07:57 Pulse Ox 97 02/15/25 07:57 FiO2 Intake & Output 02/14/25 02/15/25 02/15/25 18:59 06:59 18:59 Output Total 500 Balance -500 Weight 65.771 kg 65.771 kg Output: Urine 500 Other: Voiding Method Urinal - Labs CBC & Chem 7: 02/14/25 14:46 02/14/25 14:46 Labs: Abnormal Lab Results - Last 24 Hours (Table) 02/14/25 02/14/25 02/14/25 Range/Units 14:18 14:46 14:46 WBC 10.33 H (4.50-10.00) 10*3/uL RBC 4.28 L (4.40-5.60) 10*6/uL Hgb 11.6 L (13.0-17.0) g/dL Hct 35.6 L (39.6-50.0) % Immature Gran # 0.08 H (0.00-0.04) 10*3/uL Eosinophils # 0.02 L (0.04-0.35) 10*3/uL Sodium 134 L (137-145) mmol/L BUN 38 H (9-20) mg/dL Urine Glucose (UA) 1+ H (Negative)
--- NOTE | 2025-02-15 14:25 | P.CRDCN ---
History of Present Illness Consult date: 02/15/25 Consult reason: pre-op evaluation Chief complaint: Back pain History of present illness: History of present illness: Patient is a pleasant 74-year-old male with significant past medical history of CAD status post CABG in 1995, CHF, dementia, hyperlipidemia, hypertension, seizure disorder, AICD placement, AAA repair by Dr. Odraz, ischemic cardiomyopathy, tobacco abuse, COPD, and paroxysmal atrial fibrillation who p resented status post fall with back pain. Cardiology was consulted for preoperative evaluation prior to kyphoplasty of L1. Patient denies any chest pain or pressure. His shortness of breath has remained stable. No dizziness, lightheadedness, or syncope. He did have prior echocardiogram 10/2024 which showed EF 20-25%, moderatesevere mitral regurgitation, moderate tricuspid regurgitation. Carotid ultrasound 01/04/2025 with less than 50% stenosis bilateral ICA. REVIEW OF SYSTEMS: No fever or chills. No cough or expectoration. No diaphoresis. Patient denies headache, dizziness, blurred vision, double vision. Patient denies any stomach discomfort. No nausea, vomiting. No hematochezia. No hematemesis. Denies any black stools or blood in his stools. Denies dysuria or hematuria. No muscle weakness or numbness. No chest pain or pressure. Reports back pain. PHYSICAL EXAMINATION: This is a 74-year-old male in no apparent distress at the time of my examination. HEENT: Head is atraumatic, normocephalic. Pupils are equal, round. Sclerae anicteric. Conjunctivae are clear. Mucous membranes of the mouth are moist. Neck is supple. There is no jugular venous distention. No carotid bruit is heard. CHEST EXAMINATION: Lungs with wheezing. No chest wall tenderness is noted on palpation or with deep breathing. HEART EXAMINATION: Heart regular rate and rhythm. S1, S2 heard. No murmurs, gallops or rub. ABDOMEN: Soft, nontender. Bowel sounds are heard. EXTREMITIES: 2+ peripheral pulses with no evidence of peripheral edema and no calf tenderness noted. NEUROLOGIC EXAMINATION: Patient is awake, alert and oriented x3. IMPRESSION AND PLAN: CAD Chronic systolic heart failure, EF 25-30% Hypertension Hyperlipidemia AAA repair A-fib, paroxysmal COPD Dyspnea Back pain, L1 compression fracture preoperative evaluation PLAN: Patient is somewhat high risk given comorbidities however benefits outweigh the risks for kyphoplasty as patient is having significant back pain. Okay to proceed from a cardiac standpoint. Hold blood thinners and resume once cleared postprocedure. I am dictating on behalf of Dr. Mele Smith's history/physical and assessment/plan. Past Medical History Past Medical History: Coronary Artery Disease (CAD), Heart Failure, COPD, Dementia, Hyperlipidemia, Hypertension, Myocardial Infarction ([place]), Seizure Disorder, Syncope, Thyroid Disorder Additional Past Medical History / Comment(s): Ischemic cardiomyopathy, EF 20- 25%, last seizure about 2 yrs ago, hypothyroid.neuropathy "WHEN HE WORKED HE HAD A CRUSHING INJURY -COLLAPSED LUNGS C/T AND HAS CHRONIC BACK PAIN"" pt states he is schizophrenic/bipolar. TRIPLE A REPAIR AUG 2022 Last Myocardial Infarction Date:: unk History of Any Multi-Drug Resistant Organisms: None Reported Past Surgical History: AICD, Back Surgery, Coronary Bypass/CABG, Heart Catheterization, Heart Catheterization With Stent Additional Past Surgical History / Comment(s): 1995 CABG 4 vessel in [place], has had 2"HEART CATHS/had 2 STENTS after cabg sx.pt stated they were done in [facility]. "sx on tailbone, cortisone injections, devin inguinal hernia repair Past Anesthesia/Blood Transfusion Reactions: No Reported Reaction Date of Last Stent Placement:: 1995 Type of Cardiac Device: AICD Device Placement Date:: 1995 in [facility] Past Psychological History: Anxiety, Depression, Schizoaffective Disorder, Schizophrenia Additional Psychological History / Comment(s): . Smoking Status: Current every day smoker Past Alcohol Use History: None Reported Additional Past Alcohol Use History / Comment(s): . Past Drug Use History: Marijuana Additional Drug Use History / Comment(s): Pt states he smokes marijuana on occasion, but quit a month ago. Smoke 1/2 pack a day - Past Family History Mother Family Medical History: Respiratory Disorder Additional Family Medical History / Comment(s): Mother had TB Father Additional Family Medical History / Comment(s): Father was an alcoholic, was killed in a motor vehicle accident Medications and Allergies Home Medications Medication Instructions Recorded Confirmed Type Acetaminophen [Tylenol 8 Hour] 650 mg PO TID@0800,1400,1999 30 12/11/24 02/14/25 Rx Days tab Atorvastatin Calcium [Lipitor] 40 mg PO HS@1999 30 Days tab 12/11/24 02/14/25 Rx Dapagliflozin Propanediol [Farxiga] 10 mg PO DAILY@0800 30 Days tab 12/11/24 02/14/25 Rx Diclofenac Sodium Gel [Voltaren 1% 4 gm TOPICAL QID@08,12,16,20 30 12/11/24 02/14/25 Rx Gel] Days gm Folic Acid 0.4 mg PO DAILY@0800 30 Days tab 12/11/24 02/14/25 Rx Ipratropium-Albuterol Nebulize 3 ml INHALATION RT-QID 30 Days 12/11/24 02/14/25 Rx [Duoneb 0.5 mg-3 mg/3 ml Soln] each Levothyroxine Sodium [Synthroid] 100 mcg PO DAILY@699 30 Days tab 12/11/24 02/14/25 Rx Pantoprazole Sodium [Protonix] 20 mg PO AC-BID@799,1999 30 Days 12/11/24 02/14/25 Rx tab Pentoxifylline [TRENtal] 400 mg PO BID-W/MEALS 30 Days tab 12/11/24 02/14/25 Rx Spironolactone [Aldactone] 12.5 mg PO DAILY@799 30 Days tab 12/11/24 02/14/25 Rx Mirtazapine [Remeron] 30 mg PO HS@199901/10/25 02/14/25 History lisinopriL [Zestril] 2.5 mg PO DAILY@79901/10/25 02/14/25 History Budesonide/Formoterol Fumarate 2 puff INHALATION RT-BID@01/23/25 02/14/25 History [Symbicort 160-4.5 Mcg Inhaler] Gabapentin 300 mg PO DAILY PRN 01/23/25 02/14/25 History Nitroglycerin Sl Tabs [Nitrostat] 0.4 mg SL Q5M PRN 01/23/25 02/14/25 History Torsemide [Demadex] 10 mg PO DAILY@79901/23/25 02/14/25 History Apixaban [Eliquis] 5 mg PO DIRECTED 02/14/25 02/14/25 History Aspirin 81 mg PO DAILY@79902/14/25 02/14/25 History Cyanocobalamin [Vitamin B-12] 1,000 mcg PO DAILY@0800 02/14/25 02/14/25 History Metoprolol Tartrate [Lopressor] 12.5 mg PO BID@0800,199902/14/25 02/14/25 History Nicotine 21Mg/24Hr Patch [Habitrol] 1 patch TRANSDERM DAILY 02/14/25 02/14/25 History Sennosides/Docusate Sodium 2 tab PO HS 02/14/25 02/14/25 History [Senna-S 8.6-50 mg Tablet] Allergies Allergy/AdvReac Type Severity Reaction Status Date / Time morphine Allergy Anaphylaxis Verified 02/14/25 17:45 Penicillins Allergy Swelling Verified 02/14/25 17:45 on entire body Influenza Virus Vaccines AdvReac Unknown Verified 02/14/25 17:45 pneumococcal vaccine AdvReac Unknown Verified 02/14/25 17:45 Physical Exam Vitals: Vital Signs Temp Pulse Pulse Resp BP BP Pulse Ox 02/15/25 13:00 70 02/15/25 12:48 70 02/15/25 09:45 72 02/15/25 09:34 68 98 02/15/25 08:12 80 18 02/15/25 07:57 98.8 F 80 18 117/73 97 02/15/25 06:27 77 102/65 97 02/15/25 01:14 98.1 F 84 16 94/66 95 02/14/25 22:02 97.8 F 77 16 131/79 98 02/14/25 21:12 98.1 F 62 16 106/66 95 02/14/25 19:22 97 19 91/52 98 02/14/25 18:15 63 18 91/63 97 02/14/25 17:27 57 L 16 98/57 97 Intake and Output 02/14/25 02/15/25 02/15/25 22:59 06:59 14:59 Output Total 500 Balance -500 Output: Urine 500 Other: Voiding Method Urinal Urinal Weight 65.771 kg Results 02/14/25 14:46 02/14/25 14:46 Cardiac Enzymes 02/14/25 Range/Units 14:46 AST 27 (17-59) U/L CBC 02/14/25 Range/Units 14:46 WBC 10.33 H (4.50-10.00) 10*3/uL RBC 4.28 L (4.40-5.60) 10*6/uL Hgb 11.6 L (13.0-17.0) g/dL Hct 35.6 L (39.6-50.0) % Plt Count 166 (140-440) 10*3/uL Comprehensive Metabolic Panel 02/14/25 Range/Units 14:46 Sodium 134 L (137-145) mmol/L Potassium 4.4 (3.5-5.1) mmol/L Chloride 99 (98-107) mmol/L Carbon Dioxide 24 (22-30) mmol/L BUN 38 H (9-20) mg/dL Creatinine 1.25 (0.66-1.25) mg/dL Glucose 93 (74-99) mg/dL Calcium 9.8 (8.4-10.2) mg/dL AST 27 (17-59) U/L ALT 19 (4-49) U/L Alkaline Phosphatase 52 (38-126) U/L Total Protein 6.4 (6.3-8.2) g/dL Albumin 4.0 (3.5-5.0) g/dL Current Medications Generic Name Dose Route Start Last Admin Trade Name Freq PRN Reason Stop Dose Admin Acetaminophen 650 mg 02/14/25 15:36 Acetaminophen Tab 325 Mg Tab PO Q6HR PRN Mild Pain or Fever > 100.5 Hydrocodone Bitart/Acetaminophen 1 each 02/14/25 15:36 02/15/25 08:11 Hydrocodone/Apap 5-325mg 1 Each Tab PO 1 each Q4HR PRN Administration Moderate Pain (Scale 4 to 6) Albuterol/Ipratropium 3 ml 02/14/25 20:00 02/15/25 12:46 Ipratropium-Albuterol 3 Ml Neb INHALATION 3 ml RT-QID RADHA Administration Atorvastatin Calcium 40 mg 02/14/25 20:00 02/14/25 19:18 Atorvastatin 40 Mg Tab PO 40 mg HS@1999 RADHA Administration Budesonide/Formoterol Fumarate 2 puff 02/14/25 20:00 02/15/25 09:31 Symbicort 160-4.5 Mcg Inhaler INHALATION 2 puff RT-BID@ RADHA Administration Cyanocobalamin 1,000 mcg 02/15/25 08:00 02/15/25 08:11 Cyanocobalamin 500 Mcg Tab PO 1,000 mcg DAILY@08 RADHA Administration Dapagliflozin 10 mg 02/15/25 08:00 02/15/25 08:11 Dapagliflozin Propanediol 10 Mg Tablet PO 10 mg DAILY@08 RADHA Administration Folic Acid 1 mg 02/15/25 08:00 02/15/25 08:11 Folic Acid 1 Mg Tab PO 1 mg DAILY@08 RADHA Administration Gabapentin 300 mg 02/14/25 17:58 Gabapentin 300 Mg Cap PO DAILY PRN Pain Hydromorphone HCl 0.5 mg 02/15/25 09:06 Hydromorphone 0.5 Mg/0.5 Ml Syringe IVP Q4HR PRN Pain Hydromorphone HCl 1 mg 02/15/25 10:20 02/15/25 10:29 Hydromorphone 1 Mg/Ml 1 Ml Syringe IVP 1 mg Q3HR PRN Administration Pain Levothyroxine Sodium 100 mcg 02/15/25 07:00 02/15/25 06:31 Levothyroxine 100 Mcg Tab PO 100 mcg DAILY@699 RADHA Administration Lidocaine 1 patch 02/14/25 18:00 02/15/25 08:12 Lidocaine 4% Patch TOPICAL 1 patch DAILY RADHA Administration Protocol Lisinopril 2.5 mg 02/15/25 08:00 02/15/25 08:11 Lisinopril 2.5 Mg Tab PO 2.5 mg DAILY@08 RADHA Administration Metoprolol Tartrate 12.5 mg 02/14/25 20:00 02/15/25 08:11 Metoprolol Tartrate 12.5 Mg Tab PO 12.5 mg BID@ RADHA Administration Mirtazapine 30 mg 02/14/25 20:00 02/14/25 19:17 Mirtazapine 15 Mg Tab PO 30 mg HS@1999 RADHA Administration Naloxone HCl 0.2 mg 02/14/25 15:36 Naloxone 0.4 Mg/Ml 1 Ml Vial IV Q2M PRN Opioid Reversal Nicotine 1 patch 02/14/25 18:15 02/15/25 08:12 Nicotine 21mg/24hr Patch TRANSDERM 1 patch DAILY RADHA Administration Ondansetron HCl 4 mg 02/14/25 15:36 Ondansetron 4 Mg/2 Ml Vial IVP Q8HR PRN Nausea And Vomiting Pantoprazole Sodium 40 mg 07/03/25 20:00 02/15/25 08:11 Pantoprazole 40 Mg Tablet PO 40 mg AC-BID@0800,2000 RADHA Administration Pentoxifylline 400 mg 02/15/25 07:30 02/15/25 06:31 Pentoxifylline 400 Mg Tablet.Er PO 400 mg BID-W/MEALS RADHA Administration Senna/Docusate Sodium 2 each 02/14/25 21:00 02/14/25 20:19 Sennosides-Docusate Sodium 1 Each Tab PO 2 each HS RADHA Administration Spironolactone 12.5 mg 02/15/25 08:00 02/15/25 08:12 Spironolactone 25 Mg Tab PO 12.5 mg DAILY@0800 RADHA Administration Torsemide 10 mg 02/15/25 08:00 02/15/25 08:11 Torsemide 20 Mg Tab PO 10 mg DAILY@0800 RADHA Administration Intake and Output 02/14/25 02/15/25 02/15/25 22:59 06:59 14:59 Output Total 500 Balance -500 Output: Urine 500 Other: Voiding Method Urinal Urinal Weight 65.771 kg 02/14/25 14:46 02/14/25 14:46
[2025-02-16 05:57] LABS: INR 1.0 (<1.2); Partial Thromboplastin Time 22.9 sec (22.0-30.0); Prothrombin Time 11.2 sec (10.0-12.5)
--- NOTE | 2025-02-16 08:32 | P.PN ---
Subjective Progress Note Date: 02/16/25 Hospital Course: Patient is a very pleasant 74-year-old male whom resides at [facility] under care of [facility] with a past medical history of CAD status post stenting followed by CABG, ischemic cardiomyopathy with EF of 20 to 25% status post AICD placement, paroxysmal atrial fibrillation, hypertension, hyperlipidemia, hypothyroidism, AAA status postrepair, seizure disorder, anxiety with depression, schizoaffective disorder, and schizophrenia, nicotine dependence, and cannabin oid use. He presented to the emergency department as sent by his PCP secondary to increasing back pain and inability to ambulate secondary to pain. Patient reports lower back pain with bilateral lower extremity sciatica. He denies having any numbness, involuntary loss of bowel or bladder, or experiencing saddlebag amnesia. Patient was seen in the emergency department on 02/12/2025 status post fall. Patient underwent a CT lumbar spine and was found to have fracture of indeterminate age involving the superior endplate of L1 that was reported to be likely recent along with evidence of mild flattening of the ventral thecal sac and no reports of spinal stenosis. Patient was discharged home from the emergency department however reports pain continued to worsen and he is now unable to ambulate. Patient denies having any other complaints at this time he denies focal weakness or numbness and again denies having any involuntary loss of bowel or bladder. Upon arrival to our facility, patient underwent evaluation in the emergency department. Vital signs upon arrival show blood pressure 92/59, heart rate 66, respiratory rate 18, temp 97.5 F, and SpO2 of 99% on room air. Labs completed and reviewed. CBC showing leukocytosis with WBC count of 10.33 and normocytic anemia with hemoglobin of 11.6. BMP showing sodium of 134 and prerenal azotemia with BUN of 38. Blood glucose was 93. Liver profile unremarkable. Urinalysis positive for glucose but negative for protein, blood, or infection. Patient admitted under our services with consultation to orthospine surgery. Physical Exam: Patient seen and fully evaluated at bedside this morning. He continues to report significant lumbar back pain. Patient is scheduled to undergo surgical intervention with Dr. Gr later today. Vital signs reviewed and stable. General: Nontoxic, no distress and appears stated age. Derm: Skin warm and dry, normal coloration for ethnicity. Head: Atraumatic, normocephalic and symmetric. Eyes: EOM's intact, no lid lag, and anicteric sclera Mouth: no lip lesions, mucus membranes moist Cardiovascular: regular rate and rhythm with normal S1S2, systolic murmur, positive posterior tibial pulses bilaterally, and cap refill < 2 seconds. Lungs: Respirations even, regular, and unlabored on room air. Lungs CTA bilaterally, no rhonchi, no rales, no wheezing, and no accessory muscle usage. Abdominal: soft, nontender to palpation, no guarding, no appreciable org anomegaly Ext: ROM intact. No gross muscle atrophy, no edema, no contractures Neuro: Speech clear, face symmetrical and CN II-XII grossly intact with no noted focal neuro deficits Psych: Alert and oriented to person, place, time, and situation. Appropriate and pleasant affect. Assessment and Plan of Care: Preoperative clearance Preoperative EKG completed showing a ventricular paced rhythm. Cardiology consulted for cardiac clearance secondary to patient's extensive cardiac history stating patient is at high risk to undergo any surgical pr ocedure secondary to his extensive comorbidities, however stating benefits outweigh the risks are urgently needed kyphoplasty. NSQIP surgical risk calculator was completed showing patient at an elevated risk for serious complications at 25.5% with average risk being 8.9%, increased risk for development of postoperative pneumonia at 1.2% with average risk being 0.3%, above average risk of cardiac complication at 1.7% with average risk being 0.3%, and an above average risk of at 1.2% with average risk being 0.1% As stated above patient is at a high risk to undergo any surgical intervention, however secondary to urgent need for L1 kyphoplasty secondary to his intractable back pain and inability to ambulate patient is medically optimized to undergo surgical intervention at this time with no absolute contraindications from our standpoint as long as patient and guardian are aware of perioperative risks and in agreement to proceed. Acute intractable lumbar back pain with bilateral lower extremity sciatica resulting in inability to ambulate L1 compression fracture with mild flattening of ventral thecal sac Consult placed to orthospine surgery team, discussed plan of care and they are recommending surgical intervention of L1 with vertebral kyphoplasty secondary to unstable compression fracture. Order placed for preoperative EKG Consult placed to cardiology for cardiac surgical clearance secondary to patient's extensive cardiac history Continue neurochecks every 4 hours Bladder scan to monitor for postvoid residual/retention Fall precautions Pain management with Tylenol 650 mg every 6 hours as needed for mild pain, [place] 5/325 mg tablets every 4 hours as needed for moderate pain, and Dilaudid increased to 1 mg every 3 hours as needed for severe pain. Lidocaine patch to lumbar spine. Consult placed to PT/OT Acute kidney injury Hold torsemide, lisinopril, and Farxiga. Patient placed on gentle IV fluid hydration with 0.9% normal saline at 50 cc/h. Continue to monitor closely with repeat a.m. labs. Bladder scan to monitor for postvoid residual/retention. CAD status post stenting followed by CABG Ischemic cardiomyopathy with EF of 20 to 25% status post AICD placement Hypertension Hyperlipidemia AAA status post-repair Hold aspirin and Eliquis pending completion of orthopedic surgery and clearance by orthospine surgery team to resume. Patient to continue remaining cardiac medication regimen with atorvastatin 40 mg nightly, Aldactone 12.5 mg daily, and metoprolol 37.5 mg twice daily - Hold torsemide, lisinopril, and Farxiga secondary to [place] Hypothyroidism Continue daily medication regimen with levothyroxine 100 mcg daily. Seizure disorder Anxiety with depression Schizophrenia Schizoaffective disorder Resume home medication regimen. Order placed for bladder Data and imaging reviewed: Labs reviewed. CBC showing stable normocytic anemia with hemoglobin 11.1. BMP hyponatremia with sodium of 130 and acute kidney injury with BUN of 36.9, creatinine 1.6, GFR 45. Vital signs reviewed. Blood pressure 122/76, heart rate 73, respiratory rate 15, temp 98.4 F, and SpO2 of 95% on 3 L. CODE STATUS: Full code DVT prophylaxis: SUGEY alexander and SCDs, may resume Eliquis postoperatively once cleared by orthospine surgery team to resume. Discussed with: Patient, RN, and orthopedic FRONT END ASSISTANT Anticipated discharge date: Pending clinical course Anticipated discharge place: Pending clinical course, possible return to [facility] Patient was seen independently by Nurse Practitioner. This document was prepared using [employer] dictation software. Please allow for errors in environmental services floor tech while rare they do occur. Valerio Leo NP rendered care for this patient independently, reviewed the findings and plan as documented in the note above and agree with plan. I did not physically speak with or examine the patient on this date. Objective - Vital Signs Vital signs: Vital Signs Temp 98.4 F 02/16/25 07:29 Pulse 73 07/05/25 07:29 Resp 95 H 02/16/25 07:29 BP 122/76 02/16/25 07:29 Pulse Ox 95 02/16/25 07:29 FiO2 Intake & Output 02/15/25 02/16/25 02/16/25 18:59 06:59 18:59 Intake Total 540 Output Total 300 550 Balance -300 -10 Intake: Oral 540 Output: Urine 300 550 Other: Voiding Method Urinal Urinal # Bowel Movements 0 - Labs CBC & Chem 7: 02/16/25 05:02 02/16/25 05:02
--- NOTE | 2025-02-16 09:58 | P.PN ---
Subjective Progress Note Date: 02/16/25 Principal diagnosis: Recent fall L1 vertebral compression fracture Mechanical low back pain Patient seen and examined this morning. Patient is resting comfortably in bed. He continues to report a sharp aching lumbar pain that radiates into the bilateral lower extremities. He does report that his pain is managed on current regimen. Patient surgical intervention of a L1 kyphoplasty has been rescheduled for 02/18/2025. Patient will be n.p.o. at midnight on Tuesday. Patient has been informed and verbalizes understanding. Objective - Vital Signs Vital signs: Vital Signs Temp 98.4 F 02/16/25 07:29 Pulse 80 02/16/25 09:12 Resp 95 H 02/16/25 07:29 BP 122/76 02/16/25 07:29 Pulse Ox 95 02/16/25 07:29 FiO2 Intake & Output 02/15/25 02/16/25 02/16/25 18:59 06:59 18:59 Intake Total 540 Output Total 300 550 Balance -300 -10 Intake: Oral 540 Output: Urine 300 550 Other: Voiding Method Urinal Urinal # Bowel Movements 0 - Exam General: The patient is awake and alert, in no acute distress Skin: Skin is warm and dry with no obvious rashes or lesions. Neck: The neck is supple, there is no tenderness and ROM intact. Cardiovascular: There is a regular rate and rhythm. Respiratory: Respirations are non-labored. Gastrointestinal: Soft, non-distended, non-tender abdomen. Back: There is moderate tenderness to palpation in the midline lumbar region over the L1 vertebral area. There is no obvious deformity. Musculoskeletal: ROM limited secondary to pain. Right: shoulder abduction 5/5, elbow flexors 5/5, wrist dorsiflexors 5/5. finger abductor 5/5, service department manager 5/5, hip flexor 4/5, knee flexor 4/5, ankle dorsiflexor 4/5, ankle plantarflexion 4/5 and extensor hallucis 4/5. Left: shoulder abduction 5/5, elbow flexors 5/5, wrist dorsiflexors 5/5. finger abductor 5/5, service department manager 5/5, hip flexor 4/5, knee flexor 4/5, ankle dorsiflexor 4/5, ankle plantarflexion 4/5 and extensor hallucis 4/5. Neurological: CN 2-12 intact. There are no obvious motor or sensory deficits. Movement and coordination equal and intact. Sensory exam to light touch intact C5-T1 and intact from L2-S1. Reflexes 2/4 in bilateral upper and lower extremities. Negative Hoffmans, babinski, and clonus signs. Special tests: Straight leg raise of the bilateral lower extremities reproduces sharp pain of the lumbar spine. Psychiatric: Cooperative, appropriate mood & affect, normal judgment. - Labs CBC & Chem 7: 02/14/25 14:46 02/14/25 14:46 Assessment and Plan Assessment: Recent fall Mechanical low back pain L1 vertebral compression fracture Bilateral lower extremity weakness Complex medical comorbidities Plan: Plan At this time we recommend surgical intervention of a L1 vertebral kyphoplasty. This has been scheduled for 02/18/2025. Patient will be n.p.o. at midnight on Tuesday. Risks and benefits have been discussed and patient would like to proceed with surgery. Consent will be obtained prior to procedure. 2. Appreciate medical management 3. Pain management -[place] and IV Dilaudid, Utilize ice therapy 20min every hour as needed. 4. GI prophylaxis -senna 5. DVT prophylaxis -hold patient's Eliquis and Aspirin at this time. 6. PT/OT - weightbearing as tolerated with a walker as needed. 7. Appreciate consult. I reviewed and discussed this case with my attending Dr. Gr, whom has reviewed this chart and films and is in agreement with assessment and plan of care as outlined above. I have personally seen and examined the patient, performed the documentation and the assessment and plan as written. Number of minutes spent on the visit: 30m.
[2025-02-16 10:12] LABS: Anion Gap 10.80 mmol/L (4.00-12.00); BUN/Creat Ratio 23.06 Ratio (12.00-20.00); Blood Urea Nitrogen 36.9 mg/dL (9.0-27.0); Calcium 8.9 mg/dL (8.7-10.3); Carbon Dioxide 23.2 mmol/L (21.6-31.8); Chloride 96 mmol/L (96-109); Glucose 88 mg/dL (70-110); Magnesium 2.0 mg/dL (1.5-2.4); Potassium 4.4 mmol/L (3.5-5.5); Sodium 130 mmol/L (135-145)
[2025-02-16 11:29] LABS: HCT 36.0 % (39.6-50.0); HGB 11.1 g/dL (13.0-17.0); MCH 26.6 pg (27.0-32.0); MCHC 30.8 g/dL (32.0-37.0); MCV 86.3 FL (80.0-97.0); Macrocytosis (M) 2+ (None Seen); NRBC Per 100 WBC 0 X 10*3/uL (0.00-0.01); Platelet Count 157 X 10*3/uL (140-440); RBC 4.17 X 10*6/uL (4.40-5.60); RDW 17.9 % (11.5-14.5); WBC 6.18 X 10*3/uL (4.50-10.00)
[2025-02-16] MEDS: SODIUM CHLORIDE 0.9% 1,000 ML IV SCH (16:43)
[2025-02-16] MEDS: ONDANSETRON 4 MG/2 ML VIAL IVP PRN (21:52)
[2025-02-17 08:56] LABS: HCT 36.6 % (39.6-50.0); HGB 11.1 g/dL (13.0-17.0); MCH 25.9 pg (27.0-32.0); MCHC 30.3 g/dL (32.0-37.0); MCV 85.5 FL (80.0-97.0); NRBC Per 100 WBC 0 X 10*3/uL (0.00-0.01); Platelet Count 170 X 10*3/uL (140-440); RBC 4.28 X 10*6/uL (4.40-5.60); RDW 17.8 % (11.5-14.5); WBC 7.45 X 10*3/uL (4.50-10.00)
[2025-02-17 09:07] LABS: Anion Gap 13.00 mmol/L (4.00-12.00); BUN/Creat Ratio 23.07 Ratio (12.00-20.00); Blood Urea Nitrogen 34.6 mg/dL (9.0-27.0); Calcium 8.7 mg/dL (8.7-10.3); Carbon Dioxide 24.0 mmol/L (21.6-31.8); Chloride 94 mmol/L (96-109); Glucose 92 mg/dL (70-110); Magnesium 1.8 mg/dL (1.5-2.4); Potassium 4.7 mmol/L (3.5-5.5); Sodium 131 mmol/L (135-145)
--- NOTE | 2025-02-17 11:13 | P.PN ---
Subjective Progress Note Date: 02/17/25 Principal diagnosis: Recent fall L1 vertebral compression fracture Mechanical low back pain Patient seen and examined this morning. Patient is resting comfortably in bed. He continues to report a sharp aching lumbar pain that radiates into the bilateral lower extremities. He does report that his pain is managed on current regimen. Patient surgical intervention of a L1 kyphoplasty is scheduled for 02/18/2025. Patient will be n.p.o. at midnight. Patient has been informed and verbalizes understanding. Objective - Vital Signs Vital signs: Vital Signs Temp 98.4 F 02/17/25 07:09 Pulse 92 02/17/25 09:43 Resp 17 02/17/25 08:00 BP 124/76 02/17/25 07:09 Pulse Ox 98 02/17/25 07:09 FiO2 Intake & Output 02/16/25 02/17/25 02/17/25 18:59 06:59 18:59 Output Total 675 Balance -675 Output: Urine 675 Other: Voiding Method Toilet Urinal Urinal Urinal # Voids 5 - Exam General: The patient is awake and alert, in no acute distress Skin: Skin is warm and dry with no obvious rashes or lesions. Neck: The neck is supple, there is no tenderness and ROM intact. Cardiovascular: There is a regular rate and rhythm. Respiratory: Respirations are non-labored. Gastrointestinal: Soft, non-distended, non-tender abdomen. Back: There is moderate tenderness to palpation in the midline lumbar region over the L1 vertebral area. There is no obvious deformity. Musculoskeletal: ROM limited secondary to pain. Right: shoulder abduction 5/5, elbow flexors 5/5, wrist dorsiflexors 5/5. finger abductor 5/5, intelligence director 5/5, hip flexor 4/5, knee flexor 4/5, ankle dorsiflexor 4/5, ankle plantarflexion 4/5 and extensor hallucis 4/5. Left: shoulder abduction 5/5, elbow flexors 5/5, wrist dorsiflexors 5/5. finger abductor 5/5, intelligence director 5/5, hip flexor 4/5, knee flexor 4/5, ankle dorsiflexor 4/5, ankle plantarflexion 4/5 and extensor hallucis 4/5. Neurological: CN 2-12 intact. There are no obvious motor or sensory deficits. Movement and coordination equal and intact. Sensory exam to light touch intact C5-T1 and intact from L2-S1. Reflexes 2/4 in bilateral upper and lower extremities. Negative Hoffmans, babinski, and clonus signs. Special tests: Straight leg raise of the bilateral lower extremities reproduces sharp pain of the lumbar spine. Psychiatric: Cooperative, appropriate mood & affect, normal judgment. - Labs CBC & Chem 7: 02/17/25 05:18 02/17/25 05:18 Labs: Abnormal Lab Results - Last 24 Hours (Table) 02/16/25 02/17/25 02/17/25 Range/Units 05:02 05:18 05:18 RBC 4.17 L 4.28 L (4.40-5.60) X 10*6/uL Hgb 11.1 L 11.1 L (13.0-17.0) g/dL Hct 36.0 L 36.6 L (39.6-50.0) % MCH 26.6 L 25.9 L (27.0-32.0) pg MCHC 30.8 L 30.3 L (32.0-37.0) g/dL RDW 17.9 H 17.8 H (11.5-14.5) % Macrocytosis (manual) 2+ A (None Seen) Sodium 131 L (135-145) mmol/L Chloride 94 L (96-109) mmol/L Anion Gap 13.00 H (4.00-12.00) mmol/L BUN 34.6 H (9.0-27.0) mg/dL Est GFR (CKD-EPI) 49 L (>=60) BUN/Creatinine Ratio 23.07 H (12.00-20.00) Ratio Assessment and Plan Assessment: Recent fall Mechanical low back pain L1 vertebral compression fracture Bilateral lower extremity weakness Complex medical comorbidities Plan: Plan At this time we recommend surgical intervention of a L1 vertebral kyphoplasty. This has been scheduled for 02/18/2025. Patient will be n.p.o. at midnight. Risks and benefits have been discussed and patient would like to proceed with surgery. Consent will be obtained prior to procedure. 2. Appreciate medical management 3. Pain management -[place] and IV Dilaudid, Utilize ice therapy 20min every hour as needed. 4. GI prophylaxis -senna 5. DVT prophylaxis -hold patient's Eliquis and Aspirin at this time. 6. PT/OT - weightbearing as tolerated with a walker as needed. 7. Appreciate consult. I reviewed and discussed this case with my attending Dr. Gr, whom has reviewed this chart and films and is in agreement with assessment and plan of care as outlined above. I have personally seen and examined the patient, performed the documentation and the assessment and plan as written. Number of minutes spent on the visit: 30m.
--- NOTE | 2025-02-17 15:24 | P.PN ---
Subjective Progress Note Date: 02/17/25 Hospital Course: Patient is a very pleasant 74-year-old male whom resides at [facility] under care of [facility] with a past medical history of CAD status post stenting followed by CABG, ischemic cardiomyopathy with EF of 20 to 25% status post AICD placement, paroxysmal atrial fibrillation, hypertension, hyperlipidemia, hypothyroidism, AAA status postrepair, seizure disorder, anxiety with depression, schizoaffective disorder, and schizophrenia, nicotine dependence, and cannabin oid use. He presented to the emergency department as sent by his PCP secondary to increasing back pain and inability to ambulate secondary to pain. Patient reports lower back pain with bilateral lower extremity sciatica. He denies having any numbness, involuntary loss of bowel or bladder, or experiencing saddlebag amnesia. Patient was seen in the emergency department on 02/12/2025 status post fall. Patient underwent a CT lumbar spine and was found to have fracture of indeterminate age involving the superior endplate of L1 that was reported to be likely recent along with evidence of mild flattening of the ventral thecal sac and no reports of spinal stenosis. Patient was discharged home from the emergency department however reports pain continued to worsen and he is now unable to ambulate. Patient denies having any other complaints at this time he denies focal weakness or numbness and again denies having any involuntary loss of bowel or bladder. Upon arrival to our facility, patient underwent evaluation in the emergency department. Vital signs upon arrival show blood pressure 92/59, heart rate 66, respiratory rate 18, temp 97.5 F, and SpO2 of 99% on room air. Labs completed and reviewed. CBC showing leukocytosis with WBC count of 10.33 and normocytic anemia with hemoglobin of 11.6. BMP showing sodium of 134 and prerenal azotemia with BUN of 38. Blood glucose was 93. Liver profile unremarkable. Urinalysis positive for glucose but negative for protein, blood, or infection. Patient admitted under our services with consultation to orthospine surgery. Physical Exam: Patient seen and fully evaluated at bedside this morning. He continues to report significant lumbar back pain. Patient is scheduled to undergo surgical intervention with Dr. Gr tomorrow. Vital signs reviewed and stable. General: Nontoxic, no distress and appears stated age. Derm: Skin warm and dry, normal coloration for ethnicity. Head: Atraumatic, normocephalic and symmetric. Eyes: EOM's intact, no lid lag, and anicteric sclera Mouth: no lip lesions, mucus membranes moist Cardiovascular: regular rate and rhythm with normal S1S2, systolic murmur, pos itive posterior tibial pulses bilaterally, and cap refill < 2 seconds. Lungs: Respirations even, regular, and unlabored on room air. Lungs CTA bilaterally, no rhonchi, no rales, no wheezing, and no accessory muscle usage. Abdominal: soft, nontender to palpation, no guarding, no appreciable organo megaly Ext: ROM intact. No gross muscle atrophy, no edema, no contractures Neuro: Speech clear, face symmetrical and CN II-XII grossly intact with no noted focal neuro deficits Psych: Alert and oriented to person, place, time, and situation. Appropriate and pleasant affect. Assessment and Plan of Care: Preoperative clearance Preoperative EKG completed showing a ventricular paced rhythm. Cardiology consulted for cardiac clearance secondary to patient's extensive cardiac history stating patient is at high risk to undergo any surgical proce dure secondary to his extensive comorbidities, however stating benefits outweigh the risks are urgently needed kyphoplasty. NSQIP surgical risk calculator was completed showing patient at an elevated risk for serious complications at 25.5% with average risk being 8.9%, increased risk for development of postoperative pneumonia at 1.2% with average risk being 0.3%, above average risk of cardiac complication at 1.7% with average risk being 0.3%, and an above average risk of at 1.2% with average risk being 0.1% As stated above patient is at a high risk to undergo any surgical intervention, however secondary to urgent need for L1 kyphoplasty secondary to his intractable back pain and inability to ambulate patient is medically optimized to undergo surgical intervention at this time with no absolute contraindications from our standpoint as long as patient and guardian are aware of perioperative risks and in agreement to proceed. Acute intractable lumbar back pain with bilateral lower extremity sciatica resulting in inability to ambulate L1 compression fracture with mild flattening of ventral thecal sac Consult placed to orthospine surgery team, discussed plan of care with orthopedic POTTERY DECORATOR and they are recommending surgical intervention of L1 with verteb ral kyphoplasty secondary to unstable compression fracture and plan to take patient for L1 kyphoplasty tomorrow. Continue neurochecks every 4 hours Bladder scan to monitor for postvoid residual/retention Fall precautions Pain management with Tylenol 650 mg every 6 hours as needed for mild pain, [place] 5/325 mg tablets every 4 hours as needed for moderate pain, and Dilaudid increased to 1 mg every 3 hours as needed for severe pain. Lidocaine patch to lumbar spine. Consult placed to PT/OT Acute kidney injury Hold torsemide, lisinopril, and Farxiga. Continue placed on gentle IV fluid hydration with 0.9% normal saline at 50 cc/h. Continue to monitor closely with repeat a.m. labs. Bladder scan to monitor for postvoid residual/retention. CAD status post stenting followed by CABG Ischemic cardiomyopathy with EF of 20 to 25% status post AICD placement Hypertension Hyperlipidemia AAA status post-repair Hold aspirin and Eliquis pending completion of orthopedic surgery and clearance by orthospine surgery team to resume. Patient to continue remaining cardiac medication regimen with atorvastatin 40 mg nightly, Aldactone 12.5 mg daily, and metoprolol 37.5 mg twice daily - Hold torsemide, lisinopril, and Farxiga secondary to MARSHALL Hypothyroidism Continue daily medication regimen with levothyroxine 100 mcg daily. Seizure disorder Anxiety with depression Schizophrenia Schizoaffective disorder Resume home medication regimen. Order placed for bladder Data and imaging reviewed: Labs reviewed. CBC showing stable normocytic anemia with hemoglobin 11.1. BMP hyponatremia with sodium of 131 and acute kidney injury with BUN of 34.6, creatinine 1.5, GFR 49. Magnesium 1.8. Vital signs reviewed. Blood pressure 124/76, heart rate 95, respiratory rate 17, temp 98.4 F, and SpO2 of 98% on 3 L CODE STATUS: Full code DVT prophylaxis: SUGEY alexander and SCDs, may resume Eliquis postoperatively once cleared by orthospine surgery team to resume. Discussed with: Patient, RN, and orthopedic POTTERY DECORATOR Anticipated discharge date: Pending clinical course Anticipated discharge place: Pending clinical course, possible return to [facility] Patient was seen independently by Nurse Practitioner. This document was prepared using [employer] dictation software. Please allow for errors in epic ambulatory specialists while rare they do occur. Valerio Leo NP rendered care for this patient independently, reviewed the findings and plan as documented in the note above and agree with plan. I did not physically speak with or examine the patient on this date. Objective - Vital Signs Vital signs: Vital Signs Temp 98.4 F 02/17/25 07:09 Pulse 95 07/06/25 08:00 Resp 17 02/17/25 08:00 BP 124/76 02/17/25 07:09 Pulse Ox 98 02/17/25 07:09 FiO2 Intake & Output 02/16/25 02/17/25 02/17/25 18:59 06:59 18:59 Output Total 675 Balance -675 Output: Urine 675 Other: Voiding Method Toilet Urinal Urinal Urinal # Voids 5 - Labs CBC & Chem 7: 02/17/25 05:18 02/17/25 05:18 Labs: Abnormal Lab Results - Last 24 Hours (Table) 02/16/25 02/16/25 02/17/25 Range/Units 05:02 05:02 05:18 RBC 4.17 L 4.28 L (4.40-5.60) X 10*6/uL Hgb 11.1 L 11.1 L (13.0-17.0) g/dL Hct 36.0 L 36.6 L (39.6-50.0) % MCH 26.6 L 25.9 L (27.0-32.0) pg MCHC 30.8 L 30.3 L (32.0-37.0) g/dL RDW 17.9 H 17.8 H (11.5-14.5) % Macrocytosis (manual) 2+ A (None Seen) Sodium 130 L (135-145) mmol/L BUN 36.9 H (9.0-27.0) mg/dL Creatinine 1.6 H (0.6-1.5) mg/dL Est GFR (CKD-EPI) 45 L (>=60) BUN/Creatinine Ratio 23.06 H (12.00-20.00) Ratio
[2025-02-18 08:20] LABS: HCT 36.2 % (39.6-50.0); HGB 10.9 g/dL (13.0-17.0); MCH 26.5 pg (27.0-32.0); MCHC 30.1 g/dL (32.0-37.0); MCV 87.9 FL (80.0-97.0); NRBC Per 100 WBC 0 X 10*3/uL (0.00-0.01); Platelet Count 141 X 10*3/uL (140-440); RBC 4.12 X 10*6/uL (4.40-5.60); RDW 17.7 % (11.5-14.5); WBC 5.93 X 10*3/uL (4.50-10.00)
[2025-02-18 08:33] LABS: BUN/Creat Ratio 21.64 Ratio (12.00-20.00); Blood Urea Nitrogen 23.8 mg/dL (9.0-27.0); Glucose 85 mg/dL (70-110); Magnesium 1.8 mg/dL (1.5-2.4)
[2025-02-18 08:34] LABS: Anion Gap 9.80 mmol/L (4.00-12.00); Calcium 8.5 mg/dL (8.7-10.3); Carbon Dioxide 23.2 mmol/L (21.6-31.8); Chloride 98 mmol/L (96-109); Potassium 4.5 mmol/L (3.5-5.5); Sodium 131 mmol/L (135-145)
[2025-02-18] MEDS: IV FLUID CONTINUATION 1,000 ML IV ONE ×2 (12:06→13:42)
[2025-02-18] MEDS: DEXAMETHASONE SOD PHOSPHATE 4 MG/ML 1 ML VIAL IVP STA (12:43)
[2025-02-18] MEDS: IOPAMIDOL M200 10 ML VIAL MISCELLANE ONE (12:48)
[2025-02-18] MEDS: LIDOCAINE 2%-EPI 1:100,000 20 ML VIAL SQ ONE (12:49)
[2025-02-18] MEDS: BUPIVACAINE (PF) 0.5% 30 ML VIAL SQ ONE (12:49)
[2025-02-18] MEDS ORDERED: ETOMIDATE 2 MG/ML 10 ML VIAL ONE (12:52)
[2025-02-18] MEDS ORDERED: fentaNYL (PF) 50 MCG/ML 2 ML AMP ONE (12:52)
[2025-02-18] MEDS ORDERED: LIDOCAINE 1% INJ 10MG/ML (20 ML MDV) ONE (12:52)
[2025-02-18] MEDS ORDERED: PHENYLEPHRINE 10 MG/ML VIAL ONE (12:52)
--- NOTE | 2025-02-18 14:00 | FL ---
EXAMINATION TYPE: FL guidance operating room, XR lumbar spine 2 or 3V DATE OF EXAM: 02/18/2025 1:50 PM COMPARISON: Pre Operative Images if available both CT/MRI or plain film CLINICAL INDICATION: Male, 74 years old with history of KYPHOPLASTY IN OR; TECHNIQUE: FL guidance operating room, XR lumbar spine 2 or 3V, multiple fluoroscopic images provided for procedure. DAP: 6.51 mGym2 Gycm2 uGym2 cGycm2 or equivalent. FINDINGS: Fluoroscopic images during kyphoplasty. No immediate complication identified. IMPRESSION: 1. No evidence for intraoperative complication. 2. Please see the operative/procedural note for further details. [facility], , 02/18/2025 1:57 PM
--- NOTE | 2025-02-18 14:14 | P.PN ---
Subjective Progress Note Date: 02/18/25 Hospital Course: Patient is a very pleasant 74-year-old male whom resides at [facility] under care of [facility] with a past medical history of CAD status post stenting followed by CABG, ischemic cardiomyopathy with EF of 20 to 25% status post AICD placement, paroxysmal atrial fibrillation, hypertension, hyperlipidemia, hypothyroidism, AAA status postrepair, seizure disorder, anxiety with depression, schizoaffective disorder, and schizophrenia, nicotine dependence, and cannabin oid use. He presented to the emergency department as sent by his PCP secondary to increasing back pain and inability to ambulate secondary to pain. Patient reports lower back pain with bilateral lower extremity sciatica. He denies having any numbness, involuntary loss of bowel or bladder, or experiencing saddlebag amnesia. Patient was seen in the emergency department on 02/12/2025 status post fall. Patient underwent a CT lumbar spine and was found to have fracture of indeterminate age involving the superior endplate of L1 that was reported to be likely recent along with evidence of mild flattening of the ventral thecal sac and no reports of spinal stenosis. Patient was discharged home from the emergency department however reports pain continued to worsen and he is now unable to ambulate. Patient denies having any other complaints at this time he denies focal weakness or numbness and again denies having any involuntary loss of bowel or bladder. Upon arrival to our facility, patient underwent evaluation in the emergency department. Vital signs upon arrival show blood pressure 92/59, heart rate 66, respiratory rate 18, temp 97.5 F, and SpO2 of 99% on room air. Labs completed and reviewed. CBC showing leukocytosis with WBC count of 10.33 and normocytic anemia with hemoglobin of 11.6. BMP showing sodium of 134 and prerenal azotemia with BUN of 38. Blood glucose was 93. Liver profile unremarkable. Urinalysis positive for glucose but negative for protein, blood, or infection. Patient admitted under our services with consultation to orthospine surgery. Physical Exam: Patient seen and fully evaluated at bedside this morning. He continues to report significant lumbar back pain. Patient is scheduled to undergo surgical intervention with Dr. Gr later today. Patient continues to deny having any numbness/tingling/weakness in his extremities. Vital signs reviewed and stable. General: Nontoxic, no distress and appears stated age. Derm: Skin warm and dry, normal coloration for ethnicity. Head: Atraumatic, normocephalic and symmetric. Eyes: EOM's intact, no lid lag, and anicteric sclera Mouth: no lip lesions, mucus membranes moist Cardiovascular: regular rate and rhythm with normal S1S2, systolic murmur, positive posterior tibial pulses bilaterally, and cap refill < 2 seconds. Lungs: Respirations even, regular, and unlabored on room air. Lungs CTA bilaterally, no rhonchi, no rales, no wheezing, and no accessory muscle usage. Abdominal: soft, nontender to palpation, no guarding, no appreciable organomegaly Ext: ROM intact. No gross muscle atrophy, no edema, no contractures Neuro: Speech clear, face symmetrical and CN II-XII grossly intact with no noted focal neuro deficits Psych: Alert and oriented to person, place, time, and situation. Appropriate and pleasant affect. Assessment and Plan of Care: Preoperative clearance Preoperative EKG completed showing a ventricular paced rhythm. Cardiology consulted for cardiac clearance secondary to patient's extensive cardiac history stating patient is at high risk to undergo any surgical procedure secondary to his extensive comorbidities, however stating benefits outweigh the risks are urgently needed kyphoplasty. NSQIP surgical risk calculator was completed showing patient at an elevated risk for serious complications at 25.5% with average risk being 8.9%, increased risk for development of postoperative pneumonia at 1.2% with average risk being 0.3%, above average risk of cardiac complication at 1.7% with average risk being 0.3%, and an above average risk of at 1.2% with average risk being 0.1% As stated above patient is at a high risk to undergo any surgical intervention, however secondary to urgent need for L1 kyphoplasty secondary to his intractable back pain and inability to ambulate patient is medically optimized to undergo surgical intervention at this time with no absolute contraindications from our standpoint as long as patient and guardian are aware of perioperative risks and in agreement to proceed. Acute intractable lumbar back pain with bilateral lower extremity sciatica resulting in inability to ambulate L1 compression fracture with mild flattening of ventral thecal sac Consult placed to orthospine surgery team, discussed plan of care with orthopedic MARKETING TEAM LEAD and they are recommending surgical intervention of L1 with vertebral kyphoplasty secondary to unstable compression fracture and plan to take patient for L1 kyphoplasty later today. Continue neurochecks every 4 hours Bladder scan to monitor for postvoid residual/retention Fall precautions Pain management with Tylenol 650 mg every 6 hours as needed for mild pain, [place] 5/325 mg tablets every 4 hours as needed for moderate pain, and Dilaudid increased to 1 mg every 3 hours as needed for severe pain. Lidocaine patch to lumbar spine. Consult placed to PT/OT Acute kidney injury, resolved Hold torsemide, lisinopril, and Farxiga. Continue placed on gentle IV fluid hydration with 0.9% normal saline at 50 cc/h. Continue to monitor closely with repeat a.m. labs. Bladder scan to monitor for postvoid residual/retention. CAD status post stenting followed by CABG Ischemic cardiomyopathy with EF of 20 to 25% status post AICD placement Hypertension Hyperlipidemia AAA status post-repair Hold aspirin and Eliquis pending completion of orthopedic surgery and clearance by orthospine surgery team to resume. Patient to continue remaining cardiac medication regimen with atorvastatin 40 mg nightly, Aldactone 12.5 mg daily, and metoprolol 37.5 mg twice daily - Hold torsemide, lisinopril, and Farxiga secondary to [place]SHALL Hypothyroidism Continue daily medication regimen with levothyroxine 100 mcg daily. Seizure disorder Anxiety with depression Schizophrenia Schizoaffective disorder Resume home medication regimen. Order placed for bladder Data and imaging reviewed: Labs reviewed. CBC showing stable normocytic anemia with hemoglobin 10.9. BMP hyponatremia with sodium of 131 and resolution of acute kidney injury with BUN of 23.8, creatinine 1.1, and GFR of 71. Blood glucose 85. Magnesium 1.8. Vital signs reviewed. Blood pressure 121/76, heart rate 80, respiratory rate 18, temp 98.2 F, and SpO2 of 91% on room air CODE STATUS: Full code DVT prophylaxis: SUGEY alexander and SCDs, may resume Eliquis postoperatively once cleared by orthospine surgery team to resume. Discussed with: Patient, RN, and orthopedic MARKETING TEAM LEAD Anticipated discharge date: Pending clinical course Anticipated discharge place: Pending clinical course, possible return to [facility] Patient was seen independently by Nurse Practitioner. This document was prepared using [employer] dictation software. Please allow for errors in home manager while rare they do occur. Valerio Leo NP rendered care for this patient independently, reviewed the findin gs and plan as documented in the note above and agree with plan. I did not physically speak with or examine the patient on this date. Objective - Vital Signs Vital signs: Vital Signs Temp 98.2 F 02/18/25 01:12 Pulse 80 02/18/25 08:00 Resp 18 02/18/25 08:00 BP 121/76 02/18/25 08:00 Pulse Ox 91 L 02/18/25 08:00 FiO2 Intake & Output 02/17/25 02/18/25 02/18/25 18:59 06:59 18:59 Output Total 800 Balance -800 Output: Urine 800 Other: Voiding Method Urinal Urinal # Voids 6 - Labs CBC & Chem 7: 02/18/25 03:56 02/18/25 03:56 Labs: Abnormal Lab Results - Last 24 Hours (Table) 02/17/25 02/17/25 02/18/25 Range/Units 05:18 05:18 03:56 RBC 4.28 L 4.12 L (4.40-5.60) X 10*6/uL Hgb 11.1 L 10.9 L (13.0-17.0) g/dL Hct 36.6 L 36.2 L (39.6-50.0) % MCH 25.9 L 26.5 L (27.0-32.0) pg MCHC 30.3 L 30.1 L (32.0-37.0) g/dL RDW 17.8 H 17.7 H (11.5-14.5) % Sodium 131 L (135-145) mmol/L Chloride 94 L (96-109) mmol/L Anion Gap 13.00 H (4.00-12.00) mmol/L BUN 34.6 H (9.0-27.0) mg/dL Est GFR (CKD-EPI) 49 L (>=60) BUN/Creatinine Ratio 23.07 H (12.00-20.00) Ratio
[2025-02-18] MEDS: METOPROLOL TARTRATE 5 MG/5 ML VIAL IVP STA (14:20)
[2025-02-19 08:30] LABS: HCT 36.3 % (39.6-50.0); HGB 10.9 g/dL (13.0-17.0); MCH 26.7 pg (27.0-32.0); MCHC 30.0 g/dL (32.0-37.0); MCV 88.8 FL (80.0-97.0); NRBC Per 100 WBC 0 X 10*3/uL (0.00-0.01); Platelet Count 153 X 10*3/uL (140-440); RBC 4.09 X 10*6/uL (4.40-5.60); RDW 18.2 % (11.5-14.5); WBC 5.79 X 10*3/uL (4.50-10.00)
--- NOTE | 2025-02-19 08:40 | P.PN ---
Subjective Progress Note Date: 02/19/25 Principal diagnosis: Recent fall L1 vertebral compression fracture Mechanical low back pain Patient seen and examined this morning. Patient is resting comfortably in bed. He reports improvement of his low back pain since the procedure. Patient states that his pain is managed on current regimen. Dressing to the lumbar spine is clean dry and intact. Discharge instructions have been placed in chart. Patient is cleared from a orthopedic standpoint for discharge when medically stable. Objective - Vital Signs Vital signs: Vital Signs Temp 98 F 02/19/25 01:49 Pulse 68 02/19/25 07:24 Resp 20 02/19/25 07:24 BP 132/70 02/19/25 07:24 Pulse Ox 94 L 02/19/25 07:24 FiO2 Intake & Output 02/18/25 02/19/25 02/19/25 18:59 06:59 18:59 Intake Total 700 Output Total 5 300 Balance 695 -300 Weight 65.77 kg Intake: IV 700 Output: Urine 300 Estimated Blood Loss 5 Other: Voiding Method Urinal Urinal # Voids 1 # Bowel Movements 0 - Exam General: The patient is awake and alert, in no acute distress Skin: Skin is warm and dry with no obvious rashes or lesions. Surgical incisio ns to the lumbar spine, dressings clean dry and intact. Neck: The neck is supple, there is no tenderness and ROM intact. Cardiovascular: There is a regular rate and rhythm. Respiratory: Respirations are non-labored. Gastrointestinal: Soft, non-distended, non-tender abdomen. Back: There is moderate tenderness to palpation in the midline lumbar region over the L1 vertebral area. There is no obvious deformity. Musculoskeletal: ROM limited secondary to pain. Right: shoulder abduction 5/5, elbow flexors 5/5, wrist dorsiflexors 5/5. finger abductor 5/5, wrapping clerk 5/5, hip flexor 4/5, knee flexor 4/5, ankle dorsiflexor 4/5, ankle plantarflexion 4/5 and extensor hallucis 4/5. Left: shoulder abduction 5/5, elbow flexors 5/5, wrist dorsiflexors 5/5. finger abductor 5/5, wrapping clerk 5/5, hip flexor 4/5, knee flexor 4/5, ankle dorsiflexor 4/5, ankle plantarflexion 4/5 and extensor hallucis 4/5. Neurological: CN 2-12 intact. There are no obvious motor or sensory deficits. Movement and coordination equal and intact. Sensory exam to light touch intact C5-T1 and intact from L2-S1. Reflexes 2/4 in bilateral upper and lower extremities. Negative Hoffmans, babinski, and clonus signs. Special tests: Straight leg raise of the bilateral lower extremities reproduces sharp pain of the lumbar spine. Psychiatric: Cooperative, appropriate mood & affect, normal judgment. - Labs CBC & Chem 7: 02/19/25 03:48 02/18/25 03:56 Labs: Abnormal Lab Results - Last 24 Hours (Table) 02/19/25 Range/Units 03:48 RBC 4.09 L (4.40-5.60) X 10*6/uL Hgb 10.9 L (13.0-17.0) g/dL Hct 36.3 L (39.6-50.0) % MCH 26.7 L (27.0-32.0) pg MCHC 30.0 L (32.0-37.0) g/dL RDW 18.2 H (11.5-14.5) % Assessment and Plan Assessment: Postop day 1: L1 vertebral kyphoplasty Plan: -Appreciate internal audit consultant and team management. -Activity: Ambulate QID, OOB all meals, up and about, limit lifting bending twisting to less than 5 lbs. Use walker or cane if needed for stability. -Daily PT/OT, increase ambulation strength and balance. -Pain control: Adequate at this time -Meds: reviewed -GI ppx: senna, Miralax -DVT PPX: Aspirin 81mg daily -Hygiene: Maintain incision clean and dry. May change dressing as needed, please document in notes if performed. -Encourage IS 10x/hr -Dispo: Anticipate discharge home with homecare. *I reviewed and discussed this case with my attending Dr. Gr, whom has reviewed this chart and films and is in agreement with assessment and plan of care as outlined above. I have personally seen and examined the patient, performed the documentation and the assessment and plan as written. Number of minutes spent on the visit: 20m.
[2025-02-19 08:44] LABS: Magnesium 2.0 mg/dL (1.5-2.4)
--- NOTE | 2025-02-19 08:49 | P.OP ---
Date of Procedure: 02/18/25 Preoperative Diagnosis: 1. L1 VCF 50% ANTEIOR WEDGE COMPRESSION WITH SUPERIOR ENDPLATE COMPRESSION 2. S/P FFS 3. LOW BACK PAIN 4. DEBILITY WITH INABILITY TO AMBULATE DUE TO FRACTURE Postoperative Diagnosis: 1. L1 VCF 50% ANTEIOR WEDGE COMPRESSION WITH SUPERIOR ENDPLATE COMPRESSION 2. S/P FFS 3. LOW BACK PAIN 4. DEBILITY WITH INABILITY TO AMBULATE DUE TO FRACTURE Procedure(s) Performed: 1. L1 KYPHOPLASTY WITH BIOPSY Implants: ELISA CEMENT Anesthesia: GETA Surgeon: Ole Gr Cigarette Packing Machine Operator #1: Driss Moeller (WAS PRESENT AND ASSISTED WITH ALL ASPECTS OF THE CASE FROM POSITION TO DRESSING PLACEMENT) Estimated Blood Loss (ml): 5 IV fluids (ml): 400 Urine output (ml): 0 Pathology: none sent Condition: stable Disposition: PACU Indications for Procedure: [facility] PROVIDER: DIMA Feb 19, 2025 12:00?PM SPINE SURGERY CLINICAL AND RISK REVIEW NILAY SMALL is a 74 YO MALE presenting for evaluation of LOW BACK PAIN S/P FFS . It was my pleasure to have seen and examined NILAY SMALL . In our visit today we have had a chance to go over subjective complaints, physical examination findings and treatments including the natural course history without intervention and various interventional options. The patient's imaging demonstrates the following findings: L1 VCF WITH 50% COMPRESSION SUPERIOR ENDPLATE WITH ANTERIOR WEDGING KYPHOSIS DUE TO COLLAPSE On a physical exam,NILAY SMALL demonstrates the following findings: LOW BACK PAIN INABILITY TO AMBULATE INABILITY TO PERFORM ADLS DESPITE CONSERVATIVE MANAGEMENT LE WEAKNESS AND DEBILITY SECONDARY TO FRACTURE AND PAIN I have explained to the patient that as their condition progresses it will cause further neurological deficits and eventual paralysis. Based on the patients imaging, physical exam, and the rapid progression and disabling nature of their symptoms, at this time I recommend surgery in the form of a: L1 KYPHOPLASTY WITH BIOPSY. I discussed the risk and benefits of this procedure at length with NILAY SMALL . The patient has agreed to consider pursuing the procedure above mentioned. Prior to surgery, they should follow up with her PCP (Cardio, ID, IM etc) for clearance. Questions were invited and answered, and the patient wishes to proceed as outlined below. Currently, I am recommending: L1 KYPHOPLASTY WITH BIOPSY Obtain appropriate presurgical workup and clearances as discussed with the patient. Review of surgical risks and benefits as well as an educational packet on the proposed surgical procedure. Risks: All surgical procedures come with inherent risks, including those related to positioning, anesthesia, intraoperative findings, and postoperative complications. It is important to understand that surgery does not come with any guarantee of a successful outcome as complications and adverse events are always possible. The patient was given a handout in the office today discussing the surgical procedure and risks associated with the intervention, both of which were discussed with the patient. These risks include but are not limited to the following: Experiencing same, different or even worse symptoms in back, neck, arms, or legs compared to before surgery. Requiring further surgery or other forms of treatment presently or at some time in the future at same or other levels of the intended spine surgery. On an extreme but fortunately relatively rare basis severe complications such as blindness, stroke, heart attack, temporary and/or permanent nerve injury, paralysis, coma, or may occur, sometimes without known explanation. Surgical complications may include but are not limited to risk of infection, fluid accumulation in the surgical dissection site, including a seroma or hematoma, that requires additional surgery, wound drainage, bleeding, new numbness or weakness, vision changes/loss, spinal fluid leakage, non-healing and/or infected incision, headaches, difficulty or inability to swallow, hoarseness, hemopneumothorax, pneumothorax, impotence, retrograde ejaculation, vaginal dryness; injury to nerves, spinal cord, blood vessels, lymphatics or other vital organs (i.e., bowel injury, injury to the great vessels); heterotopic bone formation; complications related to the hardware such as screws, rods, cages including misplaced hardware, device failure, instrumentation at the wrong spine level, hardware fracture/breakage, or hardware loosening; vertebral failure of the spinal column above or below the newly placed hardware; retained surgical instrumentations or devices and the ne ed for further surgery. Medical risks of the planned spine surgery include but are not limited to generalized Infections to the whole body or local areas outside of the surgical site (sepsis), heart attack, bleeding, anaphylaxis, meningitis, seizure, epilepsy, hearing loss, burn smith, laceration of the head or other areas of the body, bruising, hypersensitivity of the skin, bladder over distension; allergic reaction; shoulder injury related to positioning; fat, blood and air clots to other areas of the body like heart, lungs, brain; failure of internal organs such as lungs, kidneys, liver and excessive bleeding. If blood transfusions are necessary, note that transfusions may cause intolerance reactions such as anaphylaxis or other complex reactions. Despite best efforts, the results of spine surgery might not heal in terms of bone, soft tissues such as skin, fascia, ligaments, and joints. Additionally, in order to achieve best possible results, spine surgery may be carried out be yond the initially planned levels and involve decompression, fusion including insertion of hardware at levels other than the original intended area of surgical interest change some portions of the procedure in order to ensure the best possible outcomes. With spine surgery and spinal fusion, there are different off label uses of instrumentation (devices, implants and hardware) as well as biological substances (bone morphogenic proteins, demineralized bone matrix) as well as using extra bone from allograft sources (i.e. cadaver bone) or autograft (iliac crest bone, ribs, or the spine itself). The patient has been given information about these practices and their inherent risks and benefits. The patient has had a chance to review all the listed information, has been given print outs detailing this information, and has had all his/her questions answered to their satisfaction. It was my pleasure to have seen and examined NILAY SMALL . In our visit today we have had a chance to go over my understanding of our patient's current condition, the natural course history without intervention and various interventional options. Questions were invited and answered, and the patient wishes to proceed as outlined above. I have seen and examined the patient for 25 minutes and we have spent more than 50% of the time in repeat and detailed counseling about the patient's condition, its natural course history without and as much as can be predicted with surgery and re-review of various surgical treatment options. In conclusion, NILAY SMALL and their family requested we proceed with the helen anton suggested surgery and are willing to accept risks and limitations of the suggested surgery as the nature of the disease process and our best attempts at treatment for the condition. In our visit today the patient and I have had a chance to go over my understanding of their current condition, the natural course history without intervention and various interventional options. Questions were invited and answered, and the patient wishes to proceed as outlined above. I will be sure to keep you updated after the patient returns here for further follow-up. Thank you again for your referral. Please do not hesitate to contact me if you have any further questions. Signed and authenticated by: Feb 18, 2025 12:00?PM EDT DO Carol Dewey [facility] [address] [place] [address] This document is confidential, intended only for the named recipient(s) and may contain information that is privileged or exempt from disclosure under applicable law. If you are not the intended recipient(s), you are notified that the dissemination, distribution or copying of this information is strictly prohibited. If you received this message in error, please notify the sender then delete this message. Description of Procedure: Lumbar (1) Kyphoplasty The patient was seen and examined in the preoperative area. All preoperative protocols were followed. Informed consent was obtained, risks and benefits of the procedure were discussed at length. Risks including bleeding infection damage to the surrounding tissue and risk of reoperation were discussed with the patient. Risk of anesthesia up to and including was discussed with the patient. These are outlined in the risk review. They were willing to accept these risks and all the risks of surgery. The patient was given a weight-based dose of antibiotics in the form of 2 g Ancef. The patient was seen and evaluated by the anesthesia team who deemed them fit for surgery. The site was marked, the patient was willing to proceed with the procedure. The patient was transferred to the operative suite by the Department of anesthesia. They were then drifted off to sleep by the department anesthesia and GETA was performed. The patient tolerated this well. Once confirmation of lines and ventilation the patient was transferred to a prone Shad table very carefully. All bony prominences including wrists, elbows, axilla, chest, hips, and thighs, and feet were padded very well. Special attention was paid to the genitalia, and these were padded accordingly. SCDs were placed on bilateral lower extremities and were connected. Arms were well padded and placed on arm boards up and out in the 90/90 position. Once in position, again we confirmed good ventilation capabilities and that lines were running appropriately. The patients Lumbar spine was then exposed. 1010s were placed outlining the incision site. Standard alcohol was used to clean the incision site and allowed to dry. C-arm was used to needle localize the pedicles at L1 and bio-soan the patient and confirm level for incision which was marked with a skin marker. Operative briefing was performed with all teams and everyone in agreement to proceed. The patient was then prepped and draped in a normal sterile fashion. Timeout was then performed, and all parties agreed with the procedure to be performed. Skin shaniqua was made. Jamshitdi was passed into the L1 vertebral body via the pedicle. This was done with biplane fluoroscopy. Once in good position in the body the trochar is removed. Biopsy needle was passed into the body and a biopsy was taken. Drill was then passed and biopsy material taken from drill as well. Curette then used to reduce endplate and create more space. Balloon was then passed an inflated which showed good reduction of endplate on AP and Lateral and confirmed central placement. The cement was then placed and pt remained stable. Good fill of cement was seen without extravasation. Once good fill, the Jamshedi was removed and the wound irrigated. The skin was closed with a simple stitch and dressed with a bandaid. The patient was then transferred off the table back to their hospital bed a- traumatically. They were extubated by the department of anesthesia. They were then transferred to PACU in stable condition having tolerated the procedure with no complications.
[2025-02-19 09:16] LABS: ALT 19 U/L (10-49); AST 35 U/L (14-35); Albumin 3.9 g/dL (3.8-4.9); Albumin/Globulin Ratio 1.86 Ratio (1.60-3.17); Alkaline Phosphatase 70 U/L (41-126); Anion Gap 10.70 mmol/L (4.00-12.00); BUN/Creat Ratio 18.36 Ratio (12.00-20.00); Blood Urea Nitrogen 20.2 mg/dL (9.0-27.0); Calcium 8.5 mg/dL (8.7-10.3); Carbon Dioxide 22.3 mmol/L (21.6-31.8); Chloride 99 mmol/L (96-109); Globulin 2.1 g/dL (1.6-3.3); Glucose 131 mg/dL (70-110); Potassium 5.1 mmol/L (3.5-5.5); Sodium 132 mmol/L (135-145); Total Protein 6.0 g/dL (6.2-8.2)
--- NOTE | 2025-02-19 11:58 | P.PN ---
Subjective Progress Note Date: 02/19/25 Hospital Course: Patient is a very pleasant 74-year-old male whom resides at [facility] under care of EAGAN with a past medical history of CAD status post stenting followed by CABG, ischemic cardiomyopathy with EF of 20 to 25% status post AICD placement, paroxysmal atrial fibrillation, hypertension, hyperlipidemia, hypothyroidism, AAA status postrepair, seizure disorder, anxiety with depression, schizoaffective disorder, and schizophrenia, nicotine dependence, and cannabin oid use. He presented to the emergency department as sent by his PCP secondary to increasing back pain and inability to ambulate secondary to pain. Patient reports lower back pain with bilateral lower extremity sciatica. He denies having any numbness, involuntary loss of bowel or bladder, or experiencing saddlebag amnesia. Patient was seen in the emergency department on 02/12/2025 status post fall. Patient underwent a CT lumbar spine and was found to have fracture of indeterminate age involving the superior endplate of L1 that was reported to be likely recent along with evidence of mild flattening of the ventral thecal sac and no reports of spinal stenosis. Patient was discharged home from the emergency department however reports pain continued to worsen and he is now unable to ambulate. Patient denies having any other complaints at this time he denies focal weakness or numbness and again denies having any involuntary loss of bowel or bladder. Upon arrival to our facility, patient underwent evaluation in the emergency department. Vital signs upon arrival show blood pressure 92/59, heart rate 66, respiratory rate 18, temp 97.5 F, and SpO2 of 99% on room air. Labs completed and reviewed. CBC showing leukocytosis with WBC count of 10.33 and normocytic anemia with hemoglobin of 11.6. BMP showing sodium of 134 and prerenal azotemia with BUN of 38. Blood glucose was 93. Liver profile unremarkable. Urinalysis positive for glucose but negative for protein, blood, or infection. Patient admitted under our services with consultation to orthospine surgery. Physical Exam: Patient seen and fully evaluated at bedside this morning. He postoperative day 1 status post L1 kyphoplasty. Patient currently reports pain is significantly improved since completion of surgical procedure. He ambulated with physical therapy this morning and reports doing well and tolerating pain well. Patient reports he is urinating without any difficulties and denies having any numbness/tingling/weakness in his extremities. Vital signs reviewed and stable. General: Nontoxic, no distress and appears stated age. Derm: Skin warm and dry, normal coloration for ethnicity. Head: Atraumatic, normocephalic and symmetric. Eyes: EOM's intact, no lid lag, and anicteric sclera Mouth: no lip lesions, mucus membranes moist Cardiovascular: regular rate and rhythm with normal S1S2, systolic murmur, positive posterior tibial pulses bilaterally, and cap refill < 2 seconds. Lungs: Respirations even, regular, and unlabored on room air. Lungs CTA bilaterally, no rhonchi, no rales, no wheezing, and no accessory muscle usage. Abdominal: soft, nontender to palpation, no guarding, no appreciable organomegaly Ext: ROM intact. No gross muscle atrophy, no edema, no contractures Neuro: Speech clear, face symmetrical and CN II-XII grossly intact with no noted focal neuro deficits Psych: Alert and oriented to person, place, time, and situation. Appropriate and pleasant affect. Assessment and Plan of Care: Acute intractable lumbar back pain with bilateral lower extremity sciatica resulting in inability to ambulate L1 compression fracture with mild flattening of ventral thecal sac status post L1 kyphoplasty Orthospine surgery team following and took patient for L1 kyphoplasty 02/18/25. Continue neurochecks every 4 hours Bladder scan to monitor for postvoid residual/retention Fall precautions Pain management with Tylenol 650 mg every 6 hours as needed for mild pain, Jefferson 5/325 mg tablets every 4 hours as needed for moderate pain, and Dilaudid increased to 1 mg every 3 hours as needed for severe pain. Lidocaine patch to lumbar spine. Consult placed to PT/OT Acute kidney injury, resolved Resolved renal function stable patient may resume torsemide, lisinopril, and Farxiga tomorrow morning. CAD status post stenting followed by CABG Ischemic cardiomyopathy with EF of 20 to 25% status post AICD placement Hypertension Hyperlipidemia AAA status post-repair Hold aspirin and Eliquis pending completion of orthopedic surgery and cleara nce by orthospine surgery team to resume. - Patient to continue remaining cardiac medication regimen with atorvastatin 40 mg nightly, Aldactone 12.5 mg daily, torsemide 10 mg daily, Farxiga 10 mg daily, lisinopril 2.5 mg daily and metoprolol 37.5 mg twice daily Hypothyroidism Continue daily medication regimen with levothyroxine 100 mcg daily. Seizure disorder Anxiety with depression Schizophrenia Schizoaffective disorder Resume home medication regimen. Order placed for bladder Data and imaging reviewed: Labs reviewed. CBC showing stable normocytic anemia with hemoglobin 10.9. BMP hyponatremia with sodium of 132 and resolution of acute kidney injury with BUN of 20.2, creatinine 1.1, and GFR of 71. Blood glucose 131. Magnesium 2.0. Vital signs reviewed. Blood pressure 132/70, heart rate 68, respiratory rate 20, temp 98.0 F and SpO2 of 94% on room air. CODE STATUS: Full code DVT prophylaxis: SUGEY alexander and SCDs, may resume Eliquis postoperatively once cleared by orthospine surgery team to resume. Discussed with: Patient, RN, and orthopedic SNAILER Anticipated discharge date: Pending clinical course Anticipated discharge place: Pending clinical course, possible return to [facility] Patient was seen independently by Nurse Practitioner. This document was prepared using [employer] dictation software. Please allow for errors in spool hauler while rare they do occur. Valerio Leo NP rendered care for this patient independently, reviewed the findings and plan as documented in the note above and agree with plan. I did not physically speak with or examine the patient on this date. Objective - Vital Signs Vital signs: Vital Signs Temp 98 F 02/19/25 01:49 Pulse 68 02/19/25 07:24 Resp 20 02/19/25 07:24 BP 132/70 02/19/25 07:24 Pulse Ox 94 L 02/19/25 07:24 FiO2 Intake & Output 02/18/25 02/19/25 02/19/25 18:59 06:59 18:59 Intake Total 700 Output Total 5 300 Balance 695 -300 Weight 65.77 kg Intake: IV 700 Output: Urine 300 Estimated Blood Loss 5 Other: Voiding Method Urinal Urinal # Voids 1 # Bowel Movements 0 - Labs CBC & Chem 7: 02/19/25 03:48 02/19/25 03:48 Labs: Abnormal Lab Results - Last 24 Hours (Table) 02/19/25 Range/Units 03:48 RBC 4.09 L (4.40-5.60) X 10*6/uL Hgb 10.9 L (13.0-17.0) g/dL Hct 36.3 L (39.6-50.0) % MCH 26.7 L (27.0-32.0) pg MCHC 30.0 L (32.0-37.0) g/dL RDW 18.2 H (11.5-14.5) %
[2025-02-20] MEDS: DAPAGLIFLOZIN PROPANEDIOL 10 MG TABLET PO SCH (07:56)
[2025-02-20] MEDS: ASPIRIN 81 MG PO SCH (07:56)
[2025-02-20] MEDS: APIXABAN 5 MG TAB PO SCH (07:57)
[2025-02-20] MEDS: TORSEMIDE 20 MG TAB PO SCH (07:57)
[2025-02-20 08:05] LABS: HCT 35.0 % (39.6-50.0); HGB 10.7 g/dL (13.0-17.0); MCH 27.0 pg (27.0-32.0); MCHC 30.6 g/dL (32.0-37.0); MCV 88.2 FL (80.0-97.0); NRBC Per 100 WBC 0 X 10*3/uL (0.00-0.01); Platelet Count 144 X 10*3/uL (140-440); RBC 3.97 X 10*6/uL (4.40-5.60); RDW 18.4 % (11.5-14.5); WBC 7.91 X 10*3/uL (4.50-10.00)
[2025-02-20 08:18] LABS: ALT 21 U/L (10-49); AST 39 U/L (14-35); Albumin 3.9 g/dL (3.8-4.9); Albumin/Globulin Ratio 1.95 Ratio (1.60-3.17); Alkaline Phosphatase 68 U/L (41-126); Anion Gap 10.70 mmol/L (4.00-12.00); BUN/Creat Ratio 13.40 Ratio (12.00-20.00); Blood Urea Nitrogen 13.4 mg/dL (9.0-27.0); Calcium 8.8 mg/dL (8.7-10.3); Carbon Dioxide 23.3 mmol/L (21.6-31.8); Chloride 100 mmol/L (96-109); Globulin 2.0 g/dL (1.6-3.3); Glucose 108 mg/dL (70-110); Magnesium 1.7 mg/dL (1.5-2.4); Potassium 4.4 mmol/L (3.5-5.5); Sodium 134 mmol/L (135-145); Total Protein 5.9 g/dL (6.2-8.2)
[2025-02-20] MEDS: GABAPENTIN 300 MG CAP PO PRN (08:50)
[2025-02-20 09:13] VITALS: BP 126/72; PULSE 77; RESP 17; TEMP 98
[2025-02-20] MEDS: MAGNESIUM OXIDE 400 MG TAB PO STA (09:43)
--- NOTE | 2025-02-20 09:52 | P.DS ---
Providers Date of admission: 02/14/25 15:38 Expected date of discharge: 02/20/25 Attending physician: Bo Mason Consults: 02/14/25 15:41 Consult Physician Urgent Consulting Provider: Ole Gr Consult Reason/Comments: L1 fracture w/ thecal sac flattening, uncontrolled pain diff w/ ambulation Do you want consulting provider notified?: Yes Primary care physician: Ramiro Watkins MD Hospital Course: Discharge Diagnosis: Acute intractable lumbar back pain with bilateral lower extremity sciatica resulting in inability to ambulate L1 compression fracture with mild flattening of ventral thecal sac status post L1 kyphoplasty Acute kidney injury, resolved CAD status post stenting followed by CABG Ischemic cardiomyopathy with EF of 20 to 25% status post AICD placement. Patient was cleared by orthospine surgery team to resume aspirin 81 mg daily and Eliquis 5 mg twice daily and to continue cardiac medication regimen with atorvastatin 40 mg nightly, Aldactone 12.5 mg daily, torsemide 10 mg daily, Farxiga 10 mg daily, lisinopril 2.5 mg daily and metoprolol 37.5 mg twice daily Hypertension Hyperlipidemia AAA status post-repair Hypothyroidism. Continue daily medication regimen with levothyroxine 100 mcg daily. Seizure disorder Anxiety with depression Schizophrenia Schizoaffective disorder Hospital Course: Patient is a very pleasant 74-year-old male whom resides at [facility] under care of [facility]AL with a past medical history of CAD status post stenting followed by CABG, ischemic cardiomyopathy with EF of 20 to 25% status post AICD placement, paroxysmal atrial fibrillation, hypertension, hyperlipidemia, hypothyroidism, AAA status postrepair, seizure disorder, anxiety with depression, schizoaffective disorder, and schizophrenia, nicotine dependence, and cannabinoid use. He presented to the emergency department as sent by his PCP secondary to increasing back pain and inability to ambulate secondary to pain. Patient reports lower back pain with bilateral lower extremity sciatica. He denies having any numbness, involuntary loss of bowel or bladder, or experiencing saddlebag amnesia. Patient was seen in the emergency department on 02/12/2025 status post fall. Patient underwent a CT lumbar spine and was found to have fracture of indeterminate age involving the superior endplate of L1 that was reported to be likely recent along with evidence of mild flattening of the ventral thecal sac and no reports of spinal stenosis. Patient was discharged home from the emergency department however reports pain continued to worsen and he is now unable to ambulate. Patient denies having any other complaints at this time he denies focal weakness or numbness and again denies having any involuntary loss of bowel or bladder. Upon arrival to our facility, patient underwent evaluation in the emergency department. Vital signs upon arrival show blood pressure 92/59, heart rate 66, respiratory rate 18, temp 97.5 F, and SpO2 of 99% on room air. Labs completed and reviewed. CBC showing leukocytosis with WBC count of 10.33 and normocytic anemia with hemoglobin of 11.6. BMP showing sodium of 134 and prerenal azotemia with BUN of 38. Blood glucose was 93. Liver profile unremarkable. Urinalysis positive for glucose but negative for protein, blood, or infection. Patient admitted under our services with consultation to orthospine surgery. Patient underwent L1 kyphoplasty on 02/18/2025. He reported significant improvement in pain. He was evaluated by PT/OT recommending rehab. Patient has been accepted to [facility]. Discussed with orthospine surgery team patient cleared from their perspective for discharge. Patient to follow-up outpatient with PCP and orthospine surgery team. Physical Exam: Vital signs reviewed and stable. General: Nontoxic, no distress and appears stated age. Derm: Skin warm and dry, normal coloration for ethnicity. Head: Atraumatic, normocephalic and symmetric. Eyes: EOM's intact, no lid lag, and anicteric sclera Mouth: no lip lesions, mucus membranes moist Cardiovascular: regular rate and rhythm with normal S1S2, systolic murmur, positive posterior tibial pulses bilaterally, and cap refill < 2 seconds. Lungs: Respirations even, regular, and unlabored on room air. Lungs CTA bilaterally, no rhonchi, no rales, no wheezing, and no accessory muscle usage. Abdominal: soft, nontender to palpation, no guarding, no appreciable organomegaly Ext: ROM intact. No gross muscle atrophy, no edema, no contractures Neuro: Speech clear, face symmetrical and CN II-XII grossly intact with no noted focal neuro deficits Psych: Alert and oriented to person, place, time, and situation. Appropriate and pleasant affect. A total of 34 minutes of time were spent preparing this complex discharge summary. Pt was discharged on 02/20/2025 at 9:51 AM Patient was seen independently by Nurse Practitioner. This document was prepared using [employer] dictation software. Please allow for errors in offbearer while rare they do occur. Valerio Leo MEDICAL OFFICE TECHNOLOGY INSTRUCTOR rendered care for this patient independently, reviewed the findings and plan as documented in the note above. I did not physically speak with or examine the patient on this date. Patient Condition at Discharge: Stable Plan - Discharge Summary Discharge Rx Participant: No New Discharge Prescriptions: New Lidocaine 4% Patch 1 patch TOPICAL DAILY 30 Days #30 patch HYDROcodone/APAP 5-325MG [[place] 5-325] 1 tab PO Q4HR PRN 3 Days #18 tab PRN Reason: Pain HYDROcodone/APAP 5-325MG [[place] 5-325] 1 tab PO Q6HR PRN #28 tab PRN Reason: Pain Continue Spironolactone [Aldactone] 12.5 mg PO DAILY@0800 30 Days tab Ipratropium-Albuterol Nebulize [Duoneb 0.5 mg-3 mg/3 ml Soln] 3 ml INHALATION RT-QID 30 Days each Dapagliflozin Propanediol [Farxiga] 10 mg PO DAILY@0800 30 Days tab Folic Acid 0.4 mg PO DAILY@0800 30 Days tab Atorvastatin Calcium [Lipitor] 40 mg PO HS@1999 30 Days tab Pentoxifylline [TRENtal] 400 mg PO BID-W/MEALS 30 Days tab Acetaminophen [Tylenol 8 Hour] 650 mg PO TID@0800,1400,1999 30 Days tab lisinopriL [Zestril] 2.5 mg PO DAILY@0800 Nitroglycerin Sl Tabs [Nitrostat] 0.4 mg SL Q5M PRN PRN Reason: Chest Pain Torsemide [Demadex] 10 mg PO DAILY@0800 Budesonide/Formoterol Fumarate [Symbicort 160-4.5 Mcg Inhaler] 2 puff INHALATION RT-BID@0800,1999 Apixaban [Eliquis] 5 mg PO DIRECTED Aspirin 81 mg PO DAILY@0800 Cyanocobalamin [Vitamin B-12] 1,000 mcg PO DAILY@0800 Nicotine 21Mg/24Hr Patch [Habitrol] 1 patch TRANSDERM DAILY Sennosides/Docusate Sodium [Senna-S 8.6-50 mg Tablet] 2 tab PO HS Metoprolol Tartrate [Lopressor] 12.5 mg PO BID@0800,1999 Pantoprazole Sodium [Protonix] 20 mg PO AC-BID@799,1999 30 Days tab Levothyroxine Sodium [Synthroid] 100 mcg PO DAILY@0700 30 Days tab Diclofenac Sodium Gel [Voltaren 1% Gel] 4 gm TOPICAL QID@08,12,16,20 30 Days gm Mirtazapine [Remeron] 30 mg PO HS@1999 Gabapentin 300 mg PO DAILY PRN PRN Reason: Pain Discharge Medication List Acetaminophen [Tylenol 8 Hour] 650 mg PO TID@0800,1400,1999 30 Days tab 12/11/24 [Rx] Atorvastatin Calcium [Lipitor] 40 mg PO HS@1999 30 Days tab 12/11/24 [Rx] Dapagliflozin Propanediol [Farxiga] 10 mg PO DAILY@0800 30 Days tab 12/11/24 [Rx] Diclofenac Sodium Gel [Voltaren 1% Gel] 4 gm TOPICAL QID@08,12,16,20 30 Days gm 12/11/24 [Rx] Folic Acid 0.4 mg PO DAILY@0800 30 Days tab 12/11/24 [Rx] Ipratropium-Albuterol Nebulize [Duoneb 0.5 mg-3 mg/3 ml Soln] 3 ml INHALATION RT-QID 30 Days each 12/11/24 [Rx] Levothyroxine Sodium [Synthroid] 100 mcg PO DAILY@0700 30 Days tab 12/11/24 [Rx] Pantoprazole Sodium [Protonix] 20 mg PO AC-BID@799,1999 30 Days tab 12/11/24 [Rx] Pentoxifylline [TRENtal] 400 mg PO BID-W/MEALS 30 Days tab 12/11/24 [Rx] Spironolactone [Aldactone] 12.5 mg PO DAILY@0800 30 Days tab 12/11/24 [Rx] Mirtazapine [Remeron] 30 mg PO HS@199901/10/25 [History] lisinopriL [Zestril] 2.5 mg PO DAILY@79901/10/25 [History] Budesonide/Formoterol Fumarate [Symbicort 160-4.5 Mcg Inhaler] 2 puff INHALATION RT-BID@799,199901/23/25 [History] Gabapentin 300 mg PO DAILY PRN 01/23/25 [History] Nitroglycerin Sl Tabs [Nitrostat] 0.4 mg SL Q5M PRN 01/23/25 [History] Torsemide [Demadex] 10 mg PO DAILY@0801/23/25 [History] Apixaban [Eliquis] 5 mg PO DIRECTED 02/14/25 [History] Aspirin 81 mg PO DAILY@0802/14/25 [History] Cyanocobalamin [Vitamin B-12] 1,000 mcg PO DAILY@79902/14/25 [History] Metoprolol Tartrate [Lopressor] 12.5 mg PO BID@799,199902/14/25 [History] Nicotine 21Mg/24Hr Patch [Habitrol] 1 patch TRANSDERM DAILY 02/14/25 [History] Sennosides/Docusate Sodium [Senna-S 8.6-50 mg Tablet] 2 tab PO HS 02/14/25 [History] HYDROcodone/APAP 5-325MG [[place] 5-325] 1 tab PO Q6HR PRN #28 tab 02/19/25 [Rx] Lidocaine 4% Patch 1 patch TOPICAL DAILY 30 Days #30 patch 02/19/25 [Rx] HYDROcodone/APAP 5-325MG [[place] 5-325] 1 tab PO Q4HR PRN 3 Days #18 tab 02/20/25 [Rx] Follow up Appointment(s)/Referral(s): Ramiro Watkins MD [Primary Care Provider] - 1 Week Ole Gr DO [Doctor of Osteopathic Medicine] - 03/06/25 11:30 am Activity/Diet/Wound Care/Special Instructions: Spine Discharge and Recovery Instructions Date of Surgery: 02/18/2025 Diagnosis: L1 vertebral compression fracture Procedure: L1 kyphoplasty Medications: See medication list All medication refills should be obtained through your primary care doctor or your clinic spine surgeon. Please discuss prescription refills at your follow up appointment. Do not call the hospital for medication refills. Activity: Encourage ambulation with assist of walker, Up and about 6-8x daily PT/OT daily work on balance, strength and mobility Up in chair with all meals Shower daily Dressing: Leave your dressing in place for a total of 1-2 days post operatively. Then you may remove your dressing and leave open to air. Keep the area clean and if not able to keep area clean, then cover with sterile gauze and tape. Showering: You may shower after your procedure allowing soap and water to run over incision. Do not scrub. Do not soak. Blot dry. Follow up: Please confirm a follow up appointment with your surgeon 2 weeks post operatively. Please make an appointment to follow up with your PCP in 1-2 weeks after surgery for evaluation '3 phase, 3-week plan' POST OP WEEKS 1-3 1. Lifting/carrying/pushing/pulling limited to less than 5 pounds. 2. Do not sit for longer than 15 minutes at one time. Get up and walk around. Prolonged sitting is NOT advised. If you lay down, see if you can tolerate laying down on you front (belly side) 3. Walk for periods of 15 minutes = 1 mile but no longer; do it multiple times times each day. 4. Ice your low back after activity. POST OP WEEKS 3-6 1. Lifting limited to less than 20 pounds. 2. Do not sit for longer than 30 minutes at a time. Frequently change positions. Use a sit-to stand workstation or take frequent breaks from sitting if you have returned to work. 3. Walk for 30 minutes each day. If possible, do these three or more times a day POST OP WEEKS 6+ At your 6-week appointment we will give you a physical therapy referral to focus on a core stabilization and strengthening program. You should also work on leg & buttock strengthening, hamstring & quadriceps stretching, and continue a low impact aerobic activity program such as swimming, walking, or riding a stationary bicycle. During the initial 6 weeks after your surgery, you are at the highest risk of re-injuring your spine. You should generally avoid BLT's (bending, lifting and twisting combination motions) and follow the above guidelines to reduce the chance of reinjury. You can anticipate post op appointments in our office at approximately 3 weeks and 6 weeks after your surgery. INCISION CARE: If your incision is not draining you do NOT need to cover it with a dressing. Keep your incision clean, dry and intact. In most cases, we apply skin glue, roseann or sutures to the incision at the time of surgery. This will be like a crust or have the appearance of a scab and will fall off in time on its own. The stitches or roseann need to be removed at 3 weeks post op appointment. You may begin to shower 3 days after surgery (this allows the glue to johnson well). However, please avoid scrubbing the incision site or peeling off any of the skin glue. This will ensure optimal healing of your incision. Also, during this time avoid soaking the incision area in water - this includes swimming pools, hot tubs or baths. No ointments, lotions or oils on the incision until your surgeon allows. Leave roseann, sutures or glue in place. Neurological dysfunction that comes on suddenly can also be a sign of a stroke. Below some common symptoms of a stroke are listed: B - balance difficulty such as sudden onset walking or leaning to one side - NEW E - eye problem such as sudden double vision or trouble seeing on one side - NEW F - Facial weakness or numbness on one side - NEW A - Arm or leg weakness or numbness on one side - NEW S - Slurred speech or difficulty with word finding - NEW T - Time is BRAIN! Call 911 as soon as you recognize these symptoms Diet: Consume a regular diet rich in vegetables and lean protein such as chicken or fish. You should consume in a ratio of approximately 20% fats|40% carbohydrates|40%protein. Vegetables, sweet potatoes, brown rice or quinoa are examples of good carbohydrates. Chips, white bread, cookies and sweets/sugar are examples of bad carbohydrates. Limit your bad carbs, go wild with good carbs. "Life's Simple 7" Guidelines as per [place] [employer] These will help you reclaim your life after surgery and tuber helper in your recovery, keeping in mind your restrictions. (1) Get Active. Physical activity can help people lose weight, control high blood pressure and cholesterol, feel emotionally better, and sleep better. (2) Control Cholesterol. Avoid a diet high in saturated fat, trans fat, & cholesterol. Limit whole milk & cream, ice cream, butter, egg yolks, processed meats (like sausage and hot dogs), and fatty meats. Choose healthy foods that are low in saturated fat, trans fat and cholesterol which include: Fruits and vegetables, fiber rich grain products (like whole grain pasta and brown rice), lean meat such as chicken, fish, nuts, seeds, and legumes. (3) Eat Better. Eat small portions. Shop at the grocery with a list and do not stray from it. Tips for a healthy diet include: Limit sodium intake to less than 1500mg daily, avoid prepackaged, processed, and fast foods, choose a diet rich in fruits, vegetables, and whole grain, high fiber foods, and limit saturated & cholesterol in your diet. (4) Manage Blood Pressure. If you have high blood pressure, you should have a cuff at home so that you can check your blood pressure regularly. Be sure you have a good cuff. An arm one is generally better than a wrist one. Bring the cuff to a doctor's appointment to validate that the measurements that your cuff are taking are accurate. Take your blood pressure twice daily when you are sitting down and relaxing. Record the numbers in a log and bring this log with you to your doctors' appointments. (5) Lose Weight if your BMI is above 25. A healthy BMI is between 19-25. To calculate Your BMI, you may use a Standard BMI Calculator on the NIH BMI website: <www.nhlbi.nih.gov/guidelines/obesity/BMI/bmicalc.htm>. Weigh oneself daily. If you are overweight, set a goal to lose weight. A pound a week loss if needed is a good target. (6) Reduce Blood Sugar. Limit foods and liquids with "added sugars." (Added sugars include sucrose, fructose, glucose, maltose, dextrose, high fructose corn syrup, corn syrup, concentrated fruit juice and honey). (7) Stop Smoking. If you smoke, quitting smoking is one of the best things that you can do for your health. Smoking increases your risk of heart attack, stroke, and peripheral vascular disease, which is a build-up of plaque in your arteries. Please discard all the cigarettes and lighters in your house. Have a plan for what you will do when you have the urge to smoke. Direct and second- hand smoke shortens your life as well as the lives of your family, friends and others around you. For your health and the health of those around you, please consider quitting! Proper Bending Body Mechanics: Maintain a wide stance with one foot slightly in front of the other. Keep your back straight. Bend utilizing the strength in your hips and knees. Do not bend at the waist. Maintain the lifted object at your waist-level close to your body. Avoid lifting weight that causes immediately pain or pain anywhere in the body afterwards. Smoking/Nicotine If there was ever one thing that you could do to increase your overall health, decrease your risk of cardiovascular problems by about 39% the second you make the choice, it is to STOP SMOKING. Your body's most instant gratification is the second you stop smoking. We have all heard the studies, read the articles but it is true, smoking is extremely bad for your overall health, and moreover it is detrimental to your bone health. Nicotine, IN ANY FORM, kills bone cells, prevents your body from healing fractures, and significantly prolongs healing after surgery. In spine surgery specifically, it increases your risk of not healing your bones to create a fusion and increases your risk of having a revision surgery due to this up to 60%. I know it is hard. I know it feels impossible. But there are ways. Take control of your life. We are here to help you through it. And when you are ready, ask us and we can direct you to help if you desire. Use the START Plan to Quit Smoking (please visit the Helpguide.org website listed below for more information): S = Set a quit date. Choose a date within the next 2 weeks, so you have enough time to prepare without losing your motivation to quit. If you mainly smoke at work, quit on the weekend, so you have a few days to adjust to the change. T = Tell family, friends, and co-workers that you plan to quit. Let your friends and family in on your plan to quit smoking and tell them you need their support and encouragement to stop. Look for a quit kika who wants to stop smoking as well. You can help each other get through the rough times. A = Anticipate and plan for the challenges you'll face while quitting. Most people who begin smoking again do so within the first 3 months. You can help yourself make it through by preparing ahead for common challenges, such as nicotine withdrawal and cigarette cravings. R = Remove cigarettes and other tobacco products from your home, car, and work. Throw away all your cigarettes (no emergency pack!), lighters, ashtrays, and matches. Wash your clothes and freshen up anything that smells like smoke. Shampoo your car, clean your drapes and carpet, and steam your furniture. T = Talk to your doctor about getting help to quit. Your doctor can prescribe medication to help with withdrawal and suggest other alternatives. If you can't see a doctor, you can get many products over the counter at your local pharmacy or grocery store, including the nicotine patch, nicotine lozenges, and nicotine gum. Resources for Quitting Smoking: <https://www.[place].gov/documents/[facility]/Quit_Tobacco_Resources_for_patients_313 480_7.pdf> Supplementation: Take recommended dosages of Vitamin D and Calcium to help fortify your bones and help them to heal. See your health maintenance packet for dosages and recommended levels. DVT/VTE prophylaxis: You will be given compression stockings from the hospital. Wear these daily for the first two weeks after surgery. You may take them off at night. You may be prescribed a medication to help thin your blood. Take this as directed. If you are not prescribed this medication, early and frequent ambulation has been shown to be the best prophylaxis to deep vein thrombosis and sequelae related to this event. 02/18/2025 Discharge Disposition: TRANSFER TO SNF/ECF
== END 2025-02-20 11:33 | DRG 478 ==
LOC: EC 13:48 → 4SSUR 15:38
PROVIDERS: ADMIT Student in an Organized Health Care Education/Training Program; ATTEND Student in an Organized Health Care Education/Training Program
PROC: 0QS03ZZ Reposition Lumbar Vertebra, Percutaneous Approach (ICD-10-PCS; 2025-02-18)
PROC: 0QU03JZ Supplement Lumbar Vertebra with Synthetic Substitute, Percutaneous Approach (ICD-10-PCS; 2025-02-18)
PROC: 0QB03ZX Excision of Lumbar Vertebra, Percutaneous Approach, Diagnostic (ICD-10-PCS; principal; 2025-02-18 08:30)
DX: M48.56XA Collapsed vertebra, not elsewhere classified, lumbar region, initial encounter for fracture (principal); F03.93 Unspecified dementia, unspecified severity, with mood disturbance; I50.22 Chronic systolic (congestive) heart failure; F25.9 Schizoaffective disorder, unspecified; I11.0 Hypertensive heart disease with heart failure; N17.8 Other acute kidney failure; I48.0 Paroxysmal atrial fibrillation; G40.909 Epilepsy, unspecified, not intractable, without status epilepticus; J44.9 Chronic obstructive pulmonary disease, unspecified; I71.40 Abdominal aortic aneurysm, without rupture, unspecified; E03.9 Hypothyroidism, unspecified; F32.A Depression, unspecified; D64.9 Anemia, unspecified; I08.1 Rheumatic disorders of both mitral and tricuspid valves; F03.94 Unspecified dementia, unspecified severity, with anxiety; I25.10 Atherosclerotic heart disease of native coronary artery without angina pectoris; I25.5 Ischemic cardiomyopathy; E78.5 Hyperlipidemia, unspecified; N14.2 Nephropathy induced by unspecified drug, medicament or biological substance; F17.210 Nicotine dependence, cigarettes, uncomplicated; M54.32 Sciatica, left side; M54.31 Sciatica, right side; I25.2 Old myocardial infarction; Z79.51 Long term (current) use of inhaled steroids; Z95.5 Presence of coronary angioplasty implant and graft; Z79.890 Hormone replacement therapy; Z79.84 Long term (current) use of oral hypoglycemic drugs; Z79.82 Long term (current) use of aspirin; Z79.01 Long term (current) use of anticoagulants; Z79.899 Other long term (current) drug therapy; Z86.73 Personal history of transient ischemic attack (TIA), and cerebral infarction without residual deficits; Z95.1 Presence of aortocoronary bypass graft; Z95.810 Presence of automatic (implantable) cardiac defibrillator
CPT/HCPCS: 36415; 72100; 80048; 80053; 81003; 83735; 85025; 85027; 85610; 85730; 88307; 88311; 94640; 94760; 96374; 96375; 99285